=== PATIENT | female | born 1955 | race Caucasian/White ===

== ENCOUNTER → 2016-05-28 | Outpatient (CLI) | payer OTHER ==
[2016-05-28 11:05] VITALS: BP 129/79; PULSE 62; RESP 18; TEMP 98; BMI 29.0
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
== END | disposition home or self-care (01) ==
LOC: BARWHC3 10:22
PROVIDERS: ATTEND Surgery Plastic and Reconstructive Surgery
DX: K21.9 Gastro-esophageal reflux disease without esophagitis (principal); Z98.890 Other specified postprocedural states; Z79.899 Other long term (current) drug therapy; Z88.8 Allergy status to other drugs, medicaments and biological substances; Z88.2 Allergy status to sulfonamides; Z88.1 Allergy status to other antibiotic agents; Z87.891 Personal history of nicotine dependence; Z68.29 Body mass index [BMI] 29.0-29.9, adult; K44.9 Diaphragmatic hernia without obstruction or gangrene; Z87.820 Personal history of traumatic brain injury; R41.3 Other amnesia; G89.4 Chronic pain syndrome; M41.9 Scoliosis, unspecified; Z79.01 Long term (current) use of anticoagulants; Z86.718 Personal history of other venous thrombosis and embolism; F41.9 Anxiety disorder, unspecified; J44.9 Chronic obstructive pulmonary disease, unspecified; E03.9 Hypothyroidism, unspecified; E78.5 Hyperlipidemia, unspecified; I10 Essential (primary) hypertension; F32.9 Major depressive disorder, single episode, unspecified; I25.10 Atherosclerotic heart disease of native coronary artery without angina pectoris; Z95.5 Presence of coronary angioplasty implant and graft
CPT/HCPCS: 99211

== ENCOUNTER → 2016-06-18 | Outpatient (CLI) | payer OTHER ==
[2016-06-18 10:22] VITALS: BP 138/89; PULSE 69; RESP 16; TEMP 97.8; BMI 29.4
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
== END | disposition home or self-care (01) ==
LOC: BARWHC3 09:27
PROVIDERS: ATTEND Surgery Plastic and Reconstructive Surgery
DX: Z48.815 Encounter for surgical aftercare following surgery on the digestive system (principal); E66.01 Morbid (severe) obesity due to excess calories; Z71.3 Dietary counseling and surveillance; Z68.29 Body mass index [BMI] 29.0-29.9, adult; Z98.84 Bariatric surgery status
CPT/HCPCS: 99211

== ENCOUNTER → 2016-07-31 | Outpatient (CLI) | payer OTHER ==
[2016-07-31 11:05] VITALS: BMI 29.4
== END ==
LOC: MNTWWP 09:05
PROVIDERS: ATTEND Surgery Plastic and Reconstructive Surgery
DX: E66.01 Morbid (severe) obesity due to excess calories (principal)
CPT/HCPCS: 97802

== ENCOUNTER 2016-08-23 19:49 | Emergency (ER) | payer OTHER ==
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
[2016-08-23 21:22] VITALS: BP 133/62; PULSE 67; RESP 18; TEMP 99.2
--- NOTE | 2016-08-23 21:26 | US ---
EXAMINATION TYPE: US venous doppler duplex LE RT DATE OF EXAM: 08/23/2016 8:56 PM COMPARISON: NONE CLINICAL HISTORY: 61-year-old female with pain SIDE PERFORMED: Right TECHNIQUE: The lower extremity deep venous system is examined utilizing real time linear array sonog chelsy with graded compression, doppler sonography and color-flow sonography. FINDINGS: VESSELS IMAGED: External Iliac Vein (EIV) Common Femoral Vein Deep Femoral Vein Greater Saphenous Vein * Femoral Vein Popliteal Vein Small Saphenous Vein * Proximal Calf Veins (* superficial vessels) Right Leg: Negative for DVT IMPRESSION: No evidence for DVT within the right lower extremity imaged from the groin to the upper calf.
== END 2016-08-23 21:21 | disposition home or self-care (01) ==
LOC: EC 19:49
DX: R60.0 Localized edema (principal); M79.604 Pain in right leg; J44.9 Chronic obstructive pulmonary disease, unspecified; J45.909 Unspecified asthma, uncomplicated; I25.10 Atherosclerotic heart disease of native coronary artery without angina pectoris; K21.9 Gastro-esophageal reflux disease without esophagitis; E78.5 Hyperlipidemia, unspecified; I10 Essential (primary) hypertension; F31.9 Bipolar disorder, unspecified; F41.9 Anxiety disorder, unspecified; Z87.891 Personal history of nicotine dependence; Z79.82 Long term (current) use of aspirin; Z79.51 Long term (current) use of inhaled steroids; Z88.1 Allergy status to other antibiotic agents; Z88.2 Allergy status to sulfonamides; Z88.8 Allergy status to other drugs, medicaments and biological substances; Z86.718 Personal history of other venous thrombosis and embolism; Z95.5 Presence of coronary angioplasty implant and graft
CPT/HCPCS: 99283

== ENCOUNTER → 2016-10-22 | Outpatient (CLI) | payer OTHER ==
[2016-10-22 11:31] VITALS: BP 146/96; PULSE 73; RESP 20; TEMP 98; BMI 30.2
--- NOTE | 2016-10-22 12:29 | FL ---
ESOPHOGRAM. HISTORY: Dysphagia, previous hiatal hernia repair COMPARISON: 06/09/2013 Esophagram was performed per the air contrast technique. The patient swallowed barium and effervesce nt crystals without difficulty or delay. Esophageal peristalsis and motility demonstrates tertiary contractions compatible with presbyesophag us. There is no evidence for filling defect, mass or diverticulum. There is evidence of recurrent sliding-type hiatal hernia. IMPRESSION: 1. Recurrent sliding-type hiatal hernia. 2. Presbyesophagus
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
== END | disposition home or self-care (01) ==
LOC: BARWHC3 10:28
PROVIDERS: ATTEND Surgery Plastic and Reconstructive Surgery
DX: K21.9 Gastro-esophageal reflux disease without esophagitis (principal); D50.9 Iron deficiency anemia, unspecified; I25.10 Atherosclerotic heart disease of native coronary artery without angina pectoris; K22.4 Dyskinesia of esophagus; F41.9 Anxiety disorder, unspecified; J44.9 Chronic obstructive pulmonary disease, unspecified; E03.9 Hypothyroidism, unspecified; G89.4 Chronic pain syndrome; E78.5 Hyperlipidemia, unspecified; I10 Essential (primary) hypertension; F32.9 Major depressive disorder, single episode, unspecified; K22.8 Other specified diseases of esophagus; K44.9 Diaphragmatic hernia without obstruction or gangrene; Z86.718 Personal history of other venous thrombosis and embolism; Z71.3 Dietary counseling and surveillance; Z79.01 Long term (current) use of anticoagulants
CPT/HCPCS: 74220; 99211

== ENCOUNTER 2016-11-12 16:10 | Emergency (ER) | payer OTHER ==
[2016-11-12 16:17] VITALS: BP 120/75; PULSE 82; RESP 17; TEMP 98.7
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
== END 2016-11-12 16:40 | disposition home or self-care (01) ==
LOC: EC 16:10
DX: S00.502A Unspecified superficial injury of oral cavity, initial encounter (principal); K06.8 Other specified disorders of gingiva and edentulous alveolar ridge; I25.10 Atherosclerotic heart disease of native coronary artery without angina pectoris; K21.9 Gastro-esophageal reflux disease without esophagitis; E78.5 Hyperlipidemia, unspecified; I10 Essential (primary) hypertension; F31.9 Bipolar disorder, unspecified; J44.9 Chronic obstructive pulmonary disease, unspecified; F41.9 Anxiety disorder, unspecified; I73.9 Peripheral vascular disease, unspecified; Z87.891 Personal history of nicotine dependence; Z88.1 Allergy status to other antibiotic agents; Z88.2 Allergy status to sulfonamides; Z79.51 Long term (current) use of inhaled steroids; Z79.82 Long term (current) use of aspirin; Z79.899 Other long term (current) drug therapy; X58.XXXA Exposure to other specified factors, initial encounter
CPT/HCPCS: 99282

== ENCOUNTER 2016-11-18 08:54 | Day surgery (SDC) | payer OTHER ==
[2016-11-17 08:57] VITALS: BMI 30.1
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
[~2016-11-18 08:54] MED LIST: LACTATED RINGERS 1,000 ML IV SCH; LIDOCAINE 1% 20 ML VIAL (10MG/ML) FOR IV START INTRADERMA PRN
[2016-11-18 09:34] VITALS: RESP 18; TEMP 97.3
[2016-11-18] MEDS ORDERED: PROPOFOL 10 MG/ML 20 ML VIAL IV ONE (10:08)
[2016-11-18 10:54] VITALS: BP 117/75; PULSE 63
--- NOTE | 2016-11-18 11:01 | P.PCN ---
Date of Procedure: 11/18/16 Preoperative Diagnosis: Postoperative Diagnosis: Procedure(s) Performed: Implants: Indications for Procedure: Operative Findings: Description of Procedure: PREOPERATIVE DIAGNOSIS: Gastroesophageal reflux disease. Status post Rafael fundoplication. POSTOPERATIVE DIAGNOSIS: Gastroesophageal reflux disease. Status post Rafael fundoplication. Diaphragmatic hiatal hernia without obstruction. OPERATION: Esophagogastroduodenoscopy. SURGEON: Milady Pate MD ANESTHESIA: MAC. INDICATIONS: The patient is a 61-year-old female who presents with a history of reflux disease. Benefits and risks of the procedure were described. Informed consent was obtained. DESCRIPTION: The patient was brought into the endoscopy suite and laid in the left lateral decubitus position. An Olympus gastroscope was passed along the posterior oropharynx down to the distal esophagus where the squamocolumnar junction was encountered at 35 cm from the incisors. The stomach was entered and no bile reflux was found. Additional findings are listed below. The first through third portion of the duodenum was examined and unremarkable. Retroflexion of the scope confirmed Hill grade 4 lower esophageal valve. The squamocolumnar junction demostrated early and acute LA grade A erosive esophagitis. The stomach was desufflated. The patient tolerated the procedure well. FINDINGS: Squamocolumnar junction 36 cm from the incisors. Diaphragmatic hiatus at 49 cm. Hiatal hernia 3 cm. Hill grade 4 lower esophageal valve. LA grade A erosive esophagitis. No active duodenitis. RECOMMENDATIONS: Continue medical therapy. Upper endoscopy as needed. Will benefit from antireflux surgical procedure Plan - Discharge Summary New Discharge Prescriptions: No Action Simvastatin [Zocor] 40 mg PO QAM Tiotropium 18 Mcg/Puff [Spiriva] 1 cap INHALATION DAILY Montelukast [Singulair] 10 mg PO HS Sertraline [Zoloft] 150 mg PO QAM Aspirin 81 mg PO DAILY traZODone HCL [Desyrel] 300 mg PO HS Omeprazole [PriLOSEC] 40 mg PO AC-BID Budesonide/Formoterol Fumarate [Symbicort 80-4.5 Mcg Inhaler] 2 puff INHALATION BID Isosorbide Mononitrate [Imdur] 60 mg PO QAM Nitroglycerin Sl Tabs [Nitrostat] 0.4 mg SUBLINGUAL Q5M PRN PRN Reason: Chest Pain Cyclobenzaprine [Flexeril] 10 mg PO TID PRN PRN Reason: Muscle Spasm hydrOXYzine HCL [Atarax] 25 mg PO TID PRN PRN Reason: Itching Cyanocobalamin (Vitamin B-12) [Vitamin B-12] 3,000 mcg PO DAILY Cholecalciferol [Vitamin D3] 2,000 unit PO DAILY fentaNYL 100MCG/HR PATCH [Duragesic 100MCG/HR] 1 patch TOPICAL Q72H Temazepam 30 mg PO HS PRN PRN Reason: Insomnia Enalapril Maleate 10 mg PO QAM Metoprolol Tartrate 25 mg PO BID Loratadine [Claritin] 10 mg PO DAILY Amitriptyline HCl [Elavil] 5 mg PO HS Hydrochlorothiazide 25 mg PO DAILY Discharge Medication List Aspirin 81 mg PO DAILY 12/28/13 [History] Montelukast [Singulair] 10 mg PO HS 12/28/13 [History] Sertraline [Zoloft] 150 mg PO QAM 12/28/13 [History] Simvastatin [Zocor] 40 mg PO QAM 12/28/13 [History] Tiotropium 18 Mcg/Puff [Spiriva] 1 cap INHALATION DAILY 12/28/13 [History] traZODone HCL [Desyrel] 300 mg PO HS 12/28/13 [History] Budesonide/Formoterol Fumarate [Symbicort 80-4.5 Mcg Inhaler] 2 puff INHALATION BID 12/29/13 [History] Isosorbide Mononitrate [Imdur] 60 mg PO QAM 12/29/13 [History] Nitroglycerin Sl Tabs [Nitrostat] 0.4 mg SUBLINGUAL Q5M PRN 12/29/13 [History] Omeprazole [PriLOSEC] 40 mg PO AC-BID 12/29/13 [History] Cyclobenzaprine [Flexeril] 10 mg PO TID PRN 12/14/14 [History] hydrOXYzine HCL [Atarax] 25 mg PO TID PRN 12/14/14 [History] Cholecalciferol [Vitamin D3] 2,000 unit PO DAILY 08/15/15 [History] Cyanocobalamin (Vitamin B-12) [Vitamin B-12] 3,000 mcg PO DAILY 08/15/15 [ History] Enalapril Maleate 10 mg PO QAM 08/15/15 [History] Metoprolol Tartrate 25 mg PO BID 08/15/15 [History] Temazepam 30 mg PO HS PRN 08/15/15 [History] fentaNYL 100MCG/HR PATCH [Duragesic 100MCG/HR] 1 patch TOPICAL Q72H 08/15/15 [ History] Amitriptyline HCl [Elavil] 5 mg PO HS 10/22/16 [History] Hydrochlorothiazide 25 mg PO DAILY 10/22/16 [History] Loratadine [Claritin] 10 mg PO DAILY 10/22/16 [History] Follow up Appointment(s)/Referral(s): Milady Pate MD [STAFF PHYSICIAN] - 12/15/16 Patient Instructions/Handouts: *Surgery [facility] - (Anesthesia) Endoscopy Discharge Instructions, Upper Endoscopy (DC) Activity/Diet/Wound Care/Special Instructions: rest today no driving today. Discharge Disposition: HOME SELF-CARE
== END 2016-11-18 11:20 | disposition home or self-care (01) ==
LOC: ORWHC2ENDO 08:54
PROVIDERS: ATTEND Surgery Plastic and Reconstructive Surgery
DX: K21.0 Gastro-esophageal reflux disease with esophagitis (principal); K44.9 Diaphragmatic hernia without obstruction or gangrene; J44.9 Chronic obstructive pulmonary disease, unspecified; I25.10 Atherosclerotic heart disease of native coronary artery without angina pectoris; E78.5 Hyperlipidemia, unspecified; E07.9 Disorder of thyroid, unspecified; Z86.718 Personal history of other venous thrombosis and embolism; Z95.5 Presence of coronary angioplasty implant and graft; Z79.82 Long term (current) use of aspirin; Z79.51 Long term (current) use of inhaled steroids; Z79.899 Other long term (current) drug therapy; Z88.1 Allergy status to other antibiotic agents; Z88.2 Allergy status to sulfonamides; Z87.891 Personal history of nicotine dependence
CPT/HCPCS: 43235; J2704

== ENCOUNTER 2016-12-17 11:14 | Day surgery (SDC) | payer OTHER ==
[2016-12-15 16:07] VITALS: BMI 28.3
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
[2016-12-17 12:27] VITALS: RESP 18; TEMP 96.2
[2016-12-17] MEDS ORDERED: PROPOFOL 10 MG/ML 20 ML VIAL IV ONE (12:27)
[2016-12-17] MEDS ORDERED: LIDOCAINE 1% INJ 10MG/ML (20 ML MDV) ONE (12:27)
--- NOTE | 2016-12-17 12:53 | P.PCN ---
Date of Procedure: 12/17/16 Description of Procedure: PREOPERATIVE DIAGNOSIS: Colonoscopy screening. POSTOPERATIVE DIAGNOSIS: Colonoscopy screening. Diverticulosis, scattered. History of polyps. External hemorrhoids. OPERATION: Colonoscopy to the ileocecal valve and appendiceal orifice. SURGEON: Milady Pate MD. ANESTHESIA: MAC. INDICATIONS: The patient is a 61-year-old female who presents for colonoscopy screening. Benefits and risks were described and informed consent was obtained. DESCRIPTION OF PROCEDURE: The patient had undergone Gatorade, MiraLAX and Dulcolax prep. She had been brought into the operating room and laid in the left lateral decubitus position. After adequate intravenous sedation, the rectum was examined with 2% lidocaine jelly. External hemorrhoids were encountered. The rectal tone was within normal limits. No lesions were palpated in the rectal vault. An Olympus colonoscope was advanced until the ileocecal valve and appendiceal orifice were clearly viewed. The prep was excellent with clear visualization of the mucosal folds. The scope was removed with visualization of each mucosal fold. Scattered diverticulosis was encountered. Small hyperplastic 2 mm polyps intractable were identified of the sigmoid colon without evidence of adenomas. No evidence of focal colitis was found. Retroflexion of the scope demonstrated grade 2 internal hemorrhoids without active bleeding or inflammation. The colon was desufflated. The patient had tolerated the procedure well. Withdrawal time was over 6 minutes. FINDINGS: Internal hemorrhoids, grade 1 External prolapsed hemorrhoids, grade 3 No arteriovenous malformations. No adenomatous polyps. No focal colitis. RECOMMENDATIONS: Lower endoscopy in 10 years, 2026; otherwise in 5 years for family history of colon cancer or polyps. Plan - Discharge Summary New Discharge Prescriptions: No Action Simvastatin [Zocor] 40 mg PO QAM Tiotropium 18 Mcg/Puff [Spiriva] 1 cap INHALATION DAILY Montelukast [Singulair] 10 mg PO HS Sertraline [Zoloft] 150 mg PO QAM Aspirin 81 mg PO DAILY traZODone HCL [Desyrel] 300 mg PO HS Omeprazole [PriLOSEC] 40 mg PO AC-BID Budesonide/Formoterol Fumarate [Symbicort 80-4.5 Mcg Inhaler] 2 puff INHALATION BID Isosorbide Mononitrate [Imdur] 60 mg PO QAM Nitroglycerin Sl Tabs [Nitrostat] 0.4 mg SUBLINGUAL Q5M PRN PRN Reason: Chest Pain Cyclobenzaprine [Flexeril] 10 mg PO TID PRN PRN Reason: Muscle Spasm hydrOXYzine HCL [Atarax] 25 mg PO TID PRN PRN Reason: Itching Cyanocobalamin (Vitamin B-12) [Vitamin B-12] 3,000 mcg PO DAILY Cholecalciferol [Vitamin D3] 2,000 unit PO DAILY fentaNYL 100MCG/HR PATCH [Duragesic 100MCG/HR] 1 patch TOPICAL Q72H Temazepam 30 mg PO HS PRN PRN Reason: Insomnia Enalapril Maleate 10 mg PO QAM Metoprolol Tartrate 25 mg PO BID Loratadine [Claritin] 10 mg PO DAILY Amitriptyline HCl [Elavil] 5 mg PO HS Hydrochlorothiazide 25 mg PO DAILY Prasugrel [Effient] 10 mg PO DAILY tiZANidine [Zanaflex] 4 mg PO HS Discharge Medication List Aspirin 81 mg PO DAILY 12/28/13 [History] Montelukast [Singulair] 10 mg PO HS 12/28/13 [History] Sertraline [Zoloft] 150 mg PO QAM 12/28/13 [History] Simvastatin [Zocor] 40 mg PO QAM 12/28/13 [History] Tiotropium 18 Mcg/Puff [Spiriva] 1 cap INHALATION DAILY 12/28/13 [History] traZODone HCL [Desyrel] 300 mg PO HS 12/28/13 [History] Budesonide/Formoterol Fumarate [Symbicort 80-4.5 Mcg Inhaler] 2 puff INHALATION BID 12/29/13 [History] Isosorbide Mononitrate [Imdur] 60 mg PO QAM 12/29/13 [History] Nitroglycerin Sl Tabs [Nitrostat] 0.4 mg SUBLINGUAL Q5M PRN 12/29/13 [History] Omeprazole [PriLOSEC] 40 mg PO AC-BID 12/29/13 [History] Cyclobenzaprine [Flexeril] 10 mg PO TID PRN 12/14/14 [History] hydrOXYzine HCL [Atarax] 25 mg PO TID PRN 12/14/14 [History] Cholecalciferol [Vitamin D3] 2,000 unit PO DAILY 08/15/15 [History] Cyanocobalamin (Vitamin B-12) [Vitamin B-12] 3,000 mcg PO DAILY 08/15/15 [ History] Enalapril Maleate 10 mg PO QAM 08/15/15 [History] Metoprolol Tartrate 25 mg PO BID 08/15/15 [History] Temazepam 30 mg PO HS PRN 08/15/15 [History] fentaNYL 100MCG/HR PATCH [Duragesic 100MCG/HR] 1 patch TOPICAL Q72H 08/15/15 [ History] Amitriptyline HCl [Elavil] 5 mg PO HS 10/22/16 [History] Hydrochlorothiazide 25 mg PO DAILY 10/22/16 [History] Loratadine [Claritin] 10 mg PO DAILY 10/22/16 [History] Prasugrel [Effient] 10 mg PO DAILY 12/15/16 [History] tiZANidine [Zanaflex] 4 mg PO HS 12/15/16 [History]
[2016-12-17 13:44] VITALS: BP 94/57; PULSE 66
== END 2016-12-17 14:01 | disposition home or self-care (01) ==
LOC: ORWHC2ENDO 11:14
PROVIDERS: ATTEND Surgery Plastic and Reconstructive Surgery
DX: Z12.11 Encounter for screening for malignant neoplasm of colon (principal); K63.5 Polyp of colon; K64.0 First degree hemorrhoids; K64.2 Third degree hemorrhoids; K57.30 Diverticulosis of large intestine without perforation or abscess without bleeding; Z86.010 Personal history of colon polyps; J44.9 Chronic obstructive pulmonary disease, unspecified; Z86.718 Personal history of other venous thrombosis and embolism; K21.9 Gastro-esophageal reflux disease without esophagitis; I10 Essential (primary) hypertension; R41.3 Other amnesia; E07.9 Disorder of thyroid, unspecified; I25.10 Atherosclerotic heart disease of native coronary artery without angina pectoris; Z95.5 Presence of coronary angioplasty implant and graft; Z79.899 Other long term (current) drug therapy; Z79.51 Long term (current) use of inhaled steroids; Z79.82 Long term (current) use of aspirin; Z87.891 Personal history of nicotine dependence; Z88.1 Allergy status to other antibiotic agents; Z88.2 Allergy status to sulfonamides
CPT/HCPCS: J2001; J2704; G0105

== ENCOUNTER 2016-12-26 03:07 | Observation (INO) | payer OTHER ==
[2016-12-26] MEDS ORDERED: ALBUTEROL NEBULIZED 2.5 MG/3 ML INHALATION STA (03:11)
[2016-12-26] MEDS ORDERED: SODIUM CHLORIDE 0.9% 500 ML IV STA (03:11)
[2016-12-26] MEDS ORDERED: methylPREDNISolone SOD SUCCI 125 MG/2 ML VIAL IV STA (03:11)
[2016-12-26] MEDS ORDERED: IPRATROPIUM-ALBUTEROL 3 ML NEB INHALATION STA (03:11)
[2016-12-26] MEDS ORDERED: SODIUM CHLORIDE 0.9% 1,000 ML IV ONE (03:15)
[2016-12-26] MEDS ORDERED: MORPHINE SULFATE 4 MG/ML SYRINGE IV STA (03:21)
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
[2016-12-26 04:10] LABS: Anisocytosis Slight; Basophils % (A) 0 %; CH 28.9; CHCM 33.1; Eosinophils # (A) 0.3 k/uL (0-0.7); Eosinophils % (A) 4 %; HCT 30.3 % (34.0-46.0); HDW 2.68; HGB 9.8 gm/dL (11.4-16.0); Luc # (Auto) 0.11; Luc % (Auto) 2; Lymphocytes # (A) 1.5 k/uL (1.0-4.8); Lymphocytes % (A) 21 %; MCH 28.4 pg (25.0-35.0); MCHC 32.4 g/dL (31.0-37.0); MCV 87.8 fL (80.0-100.0); Mean Platelet Volume 7.2; Monocytes # (A) 0.3 k/uL (0-1.0); Monocytes % (A) 4 %; Neutrophils % (A) 69 %; RBC 3.45 m/uL (3.80-5.40); RDW 18.1 % (11.5-15.5); WBC 7.3 k/uL (3.8-10.6); WBC (Perox) 7.38
[2016-12-26 04:20] LABS: Prothrombin Time 10.3 sec (9.0-12.0)
[2016-12-26 04:25] LABS: ALT 43 U/L (9-52); AST 44 U/L (14-36); Alkaline Phosphatase 158 U/L (38-126); Anion Gap 9 mmol/L; Blood Urea Nitrogen 42 mg/dL (7-17); Calcium 7.3 mg/dL (8.4-10.2); Carbon Dioxide 21 mmol/L (22-30); Chloride 107 mmol/L (98-107); Glucose 120 mg/dL (74-99); Non-African American GFR(MDRD) 50 (>60 ml/min/1.73 sqM); Potassium 3.3 mmol/L (3.5-5.1); Sodium 137 mmol/L (137-145); Total Bilirubin 0.3 mg/dL (0.2-1.3); Total Protein 5.3 g/dL (6.3-8.2)
[2016-12-26 04:35] LABS: Partial Thromboplastin Time 19.6 sec (22.0-30.0)
[2016-12-26 04:36] LABS: Creatine Kinase <20 U/L (30-135)
--- NOTE | 2016-12-26 04:43 | XR ---
EXAM: XR Right Tibia and Fibula, 2 Views CLINICAL HISTORY: Reason: Pain TECHNIQUE: Frontal and lateral views of the right tibia and fibula. COMPARISON: No relevant prior studies available. FINDINGS: Bones/joints: Displaced and angulated distal fibular fracture. Medial displacement of the proximal segment. Medial dislocation of the tibia with respect to the talus. Medial malleolus fracture. Soft tissues: Unremarkable. No radiopaque foreign body. IMPRESSION: Displaced and angulated distal fibular fracture. Medial displacement of the proximal segment. Disrupted ankle mortise with Medial dislocation of the tibia with respect to the talus. Medial malleolus fracture.
[2016-12-26 04:47] LABS: Creatine Kinase MB <0.2 ng/mL (0.0-2.4); Troponin I <0.012 ng/mL (0.000-0.034)
--- NOTE | 2016-12-26 04:47 | XR ---
EXAM: XR Chest, 1 View CLINICAL HISTORY: pt. fell and is SOB. Hx. of heart cath with stents TECHNIQUE: Frontal view of the chest. COMPARISON: Chest x-ray 07/11/15 FINDINGS: Lungs: Unremarkable. No consolidation. Pleural space: Unremarkable. No pneumothorax. Heart: Stable cardiomegaly. Mediastinum: Unremarkable. Bones/joints: Unremarkable. IMPRESSION: No acute findings.
[2016-12-26] MEDS ORDERED: HYDROmorphone 1 MG/ML 1 ML SYRINGE IVP STA ×2 (04:51→06:16)
--- NOTE | 2016-12-26 05:54 | CT ---
EXAM: CT Head Without Intravenous Contrast CLINICAL HISTORY: . fell and is on blood thinners. Hx. of previous CVA/TIA.: fall TECHNIQUE: Axial computed tomography images of the head/brain without intravenous contrast. CTDI is 60.3 mGy and DLP is 1090.4 mGy-cm. This CT exam was performed using one or more of the following dose reduction techniques: automated exposure control, adjustment of the mA and/or kV according to patient size, and/or use of iterative reconstruction technique. COMPARISON: Head CT 12/14/14 FINDINGS: Brain: Old left thalamic lacunar infarct. Similar mild to moderate cerebral atrophy. No hemorrhage. No edema. Ventricles: Mild general atrophy. No ventriculomegaly. Bones/joints: Unremarkable. No acute fracture. Soft tissues: Unremarkable. Sinuses: Mild ethmoid sinus mucosal thickening and trace fluid. Mastoid air cells: Trace right mastoid air cell fluid. IMPRESSION: 1. No acute intracranial abnormality. 2. Stable senescent changes and old left thalamic lacunar infarct. 3. Mild ethmoid sinus mucosal thickening and trace right ethmoid sinus fluid. 4. Trace right mastoid air cell fluid.
[2016-12-26] MEDS ORDERED: HYDROmorphone 1 MG/ML 1 ML SYRINGE IV PRN (07:10)
[2016-12-26] MEDS ORDERED: ACETAMINOPHEN TAB 325 MG TAB PO PRN (07:10)
[2016-12-26] MEDS ORDERED: NALOXONE 0.4 MG/ML 1 ML VIAL IV PRN (07:10)
[2016-12-26] MEDS ORDERED: SODIUM CHLORIDE 0.9% 1,000 ML IV SCH (07:15)
[2016-12-26] MEDS ORDERED: TEMAZEPAM 30 MG CAP PO PRN (07:17)
[2016-12-26] MEDS ORDERED: hydrOXYzine HCL 25 MG TAB PO PRN (07:17)
[2016-12-26] MEDS ORDERED: NITROGLYCERIN SL TABS 0.4 MG TAB SUBLINGUAL PRN (07:17)
[2016-12-26] MEDS ORDERED: PANTOPRAZOLE 40 MG TABLET PO SCH (07:30)
[2016-12-26] MEDS ORDERED: CYANOCOBALAMIN 500 MCG TAB PO SCH (09:00)
[2016-12-26] MEDS ORDERED: LISINOPRIL 20 MG TAB PO SCH (09:00)
[2016-12-26] MEDS ORDERED: ASPIRIN 81 MG PO SCH (09:00)
[2016-12-26] MEDS ORDERED: ISOSORBIDE MONONITRATE ER 60 MG TAB.ER.24H PO SCH (09:00)
[2016-12-26] MEDS ORDERED: FAMOTIDINE 20 MG TAB PO SCH (09:00)
[2016-12-26] MEDS ORDERED: HYDROCHLOROTHIAZIDE 25 MG TAB PO SCH (09:00)
[2016-12-26] MEDS ORDERED: SERTRALINE 50 MG TAB PO SCH (09:00)
[2016-12-26] MEDS ORDERED: METOPROLOL TARTRATE 25 MG TAB PO SCH (09:00)
[2016-12-26] MEDS ORDERED: SYMBICORT 80-4.5 MCG INHALER INHALATION SCH (09:00)
[2016-12-26] MEDS ORDERED: PRASUGREL 10 MG TAB PO SCH (09:00)
[2016-12-26] MEDS ORDERED: CHOLECALCIFEROL 1,000 UNIT TAB PO SCH (09:00)
[2016-12-26] MEDS ORDERED: ATORVASTATIN 20 MG TAB PO SCH (09:00)
[2016-12-26] MEDS ORDERED: LORATADINE 10 MG TAB PO SCH (09:00)
[2016-12-26] MEDS: IPRATROPIUM 0.5 MG/2.5 ML NEBU INHALATION SCH ×2 (09:36→13:01)
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
[2016-12-26] MEDS ORDERED: HYDROmorphone 1 MG/ML 1 ML SYRINGE IVP PRN (16:04)
[2016-12-26 16:16] VITALS: BP 156/83; PULSE 73; RESP 18; TEMP 99.3
[2016-12-26] MEDS ORDERED: AMITRIPTYLINE HCL 10 MG TAB PO SCH (21:00)
[2016-12-26] MEDS ORDERED: tiZANidine 4 MG TAB PO SCH (21:00)
[2016-12-26] MEDS ORDERED: MONTELUKAST 10 MG TAB PO SCH (21:00)
[2016-12-26] MEDS ORDERED: traZODone HCL 100 MG TAB PO SCH (21:00)
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
== END 2016-12-26 16:48 | disposition home or self-care (01) ==
LOC: EC 03:07 → 3OBS 07:10
PROVIDERS: ADMIT Hospitalist; ATTEND Hospitalist
DX: S82.841A Displaced bimalleolar fracture of right lower leg, initial encounter for closed fracture (principal); E44.0 Moderate protein-calorie malnutrition; Z68.28 Body mass index [BMI] 28.0-28.9, adult; E83.51 Hypocalcemia; E87.6 Hypokalemia; I25.10 Atherosclerotic heart disease of native coronary artery without angina pectoris; Z95.5 Presence of coronary angioplasty implant and graft; G89.29 Other chronic pain; K21.9 Gastro-esophageal reflux disease without esophagitis; E03.9 Hypothyroidism, unspecified; J44.9 Chronic obstructive pulmonary disease, unspecified; I10 Essential (primary) hypertension; F41.9 Anxiety disorder, unspecified; F31.9 Bipolar disorder, unspecified; R41.3 Other amnesia; Z79.82 Long term (current) use of aspirin; Z79.899 Other long term (current) drug therapy; Z79.51 Long term (current) use of inhaled steroids; Z79.890 Hormone replacement therapy; Z88.2 Allergy status to sulfonamides; Z88.1 Allergy status to other antibiotic agents; Z86.718 Personal history of other venous thrombosis and embolism; Z87.01 Personal history of pneumonia (recurrent); Z87.891 Personal history of nicotine dependence; W01.0XXA Fall on same level from slipping, tripping and stumbling without subsequent striking against object, initial encounter; Y92.002 Bathroom of unspecified non-institutional (private) residence as the place of occurrence of the external cause; X50.1XXA Overexertion from prolonged static or awkward postures, initial encounter
CPT/HCPCS: 29515; 27810; 96376 ×3; 96361 ×2; 96374; 96375; 99285; 36415; 94640; 93005; 83880; 80053; 82550; 82553; 84484; 85025; 85610; 85730; 71010; 73590; 70450; G0378; J2270; J1170

== ENCOUNTER 2016-12-28 13:13 | Observation (INO) | payer OTHER ==
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
[2016-12-28] MEDS ORDERED: HYDROmorphone 1 MG/ML 1 ML SYRINGE IVP STA (14:05)
--- NOTE | 2016-12-28 14:30 | XR ---
EXAMINATION TYPE: XR ankle complete RT DATE OF EXAM: 12/28/2016 COMPARISON: 12/26/2016 HISTORY: Pain TECHNIQUE: Frontal, lateral and oblique images of the right ankle are obtained. Overlying cast mater ial does obscure fine bony detail. FINDINGS: Previously described fractures are again noted with mild improved alignment following redu ction. There is continued instability about the ankle mortise and fracture displacement.
[2016-12-28] MEDS ORDERED: NALOXONE 0.4 MG/ML 1 ML VIAL IV PRN (14:50)
[2016-12-28] MEDS ORDERED: ACETAMINOPHEN TAB 325 MG TAB PO PRN (14:50)
[2016-12-28] MEDS ORDERED: ONDANSETRON 4 MG/2 ML VIAL IVP PRN (14:50)
[2016-12-28] MEDS ORDERED: IBUPROFEN 400 MG TAB PO PRN (14:50)
[2016-12-28] MEDS ORDERED: CYCLOBENZAPRINE 10 MG TAB PO PRN (14:53)
[2016-12-28] MEDS ORDERED: hydrOXYzine HCL 25 MG TAB PO PRN (14:53)
[2016-12-28] MEDS ORDERED: TEMAZEPAM 30 MG CAP PO PRN (14:53)
[2016-12-28] MEDS ORDERED: LORazepam 2 MG/ML INJ IV PRN (18:36)
[2016-12-28] MEDS: HYDROmorphone 1 MG/ML 1 ML SYRINGE IV PRN ×2 (19:21→23:23)
[2016-12-28] MEDS: METOPROLOL TARTRATE 25 MG TAB PO SCH (20:23)
[2016-12-28] MEDS: AMITRIPTYLINE HCL 50 MG TAB PO SCH (20:26)
[2016-12-28] MEDS: SODIUM CHLORIDE 0.9% 1,000 ML IV SCH (20:26)
[2016-12-28] MEDS: MONTELUKAST 10 MG TAB PO SCH (20:26)
[2016-12-28] MEDS: IPRATROPIUM 0.5 MG/2.5 ML NEBU INHALATION SCH (21:20)
[2016-12-28] MEDS: SYMBICORT 80-4.5 MCG INHALER INHALATION SCH (21:26)
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
[2016-12-29] MEDS: SODIUM CHLORIDE 0.9% 1,000 ML IV SCH ×3 (03:08→17:36)
[2016-12-29] MEDS: LEVOTHYROXINE 50 MCG TAB PO SCH (03:08)
[2016-12-29] MEDS: HYDROmorphone 1 MG/ML 1 ML SYRINGE IV PRN ×3 (03:22→11:45)
[2016-12-29] MEDS: SYMBICORT 80-4.5 MCG INHALER INHALATION SCH ×2 (07:21→19:30)
[2016-12-29] MEDS: IPRATROPIUM 0.5 MG/2.5 ML NEBU INHALATION SCH ×3 (07:22→19:31)
[2016-12-29] MEDS: PANTOPRAZOLE 40 MG/10 ML VIAL IV SCH (07:47)
[2016-12-29] MEDS: SERTRALINE 50 MG TAB PO SCH (07:51)
[2016-12-29] MEDS: METOPROLOL TARTRATE 25 MG TAB PO SCH ×2 (07:52→21:23)
[2016-12-29] MEDS: ATORVASTATIN 20 MG TAB PO SCH (08:22)
[2016-12-29] MEDS: ISOSORBIDE MONONITRATE ER 60 MG TAB.ER.24H PO SCH (08:22)
[2016-12-29] MEDS: LORATADINE 10 MG TAB PO SCH (08:23)
[2016-12-29] MEDS: HYDROCHLOROTHIAZIDE 25 MG TAB PO SCH (08:23)
[2016-12-29] MEDS: LISINOPRIL 20 MG TAB PO SCH (08:23)
[2016-12-29] MEDS ORDERED: ASPIRIN 81 MG PO SCH (09:00)
[2016-12-29 09:42] LABS: Anisocytosis Slight; Basophils % (A) 0 %; CH 28.8; CHCM 32.4; Eosinophils # (A) 0.3 k/uL (0-0.7); Eosinophils % (A) 3 %; HCT 29.5 % (34.0-46.0); HDW 2.62; HGB 9.4 gm/dL (11.4-16.0); Luc % (Auto) 1; Lymphocytes # (A) 1.3 k/uL (1.0-4.8); Lymphocytes % (A) 18 %; MCH 28.3 pg (25.0-35.0); MCHC 31.7 g/dL (31.0-37.0); MCV 89.2 fL (80.0-100.0); Mean Platelet Volume 7.5; Monocytes # (A) 0.5 k/uL (0-1.0); Monocytes % (A) 6 %; Neutrophils # (A) 5.4 k/uL (1.3-7.7); Neutrophils % (A) 71 %; RBC 3.31 m/uL (3.80-5.40); RDW 17.6 % (11.5-15.5); WBC 7.6 k/uL (3.8-10.6); WBC (Perox) 7.76
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
[2016-12-29 09:48] LABS: INR 1.2 (<1.2); Prothrombin Time 11.6 sec (9.0-12.0)
[2016-12-29 10:15] LABS: Anion Gap 9 mmol/L; Blood Urea Nitrogen 13 mg/dL (7-17); Calcium 7.7 mg/dL (8.4-10.2); Carbon Dioxide 23 mmol/L (22-30); Chloride 106 mmol/L (98-107); Glucose 80 mg/dL (74-99); Non-African American GFR(MDRD) >60 (>60 ml/min/1.73 sqM); Potassium 3.7 mmol/L (3.5-5.1); Sodium 138 mmol/L (137-145)
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
[2016-12-29] MEDS: ENOXAPARIN 40 MG/0.4 ML SYRINGE SQ SCH (10:38)
[2016-12-29] MEDS: KETOROLAC 30 MG/ML 1 ML VIAL IVP PRN ×2 (10:39→21:23)
[2016-12-29] MEDS: PRASUGREL 10 MG TAB PO SCH (10:39)
[2016-12-29] MEDS: CYANOCOBALAMIN 500 MCG TAB PO SCH (11:44)
[2016-12-29] MEDS: CHOLECALCIFEROL 1,000 UNIT TAB PO SCH (11:44)
[2016-12-29] MEDS ORDERED: IV FLUID CONTINUATION 1,000 ML IV ONE (12:56)
[2016-12-29] MEDS ORDERED: LIDOCAINE 1% 20 ML VIAL (10MG/ML) FOR IV START INTRADERMA ONE (13:15)
[2016-12-29] MEDS ORDERED: MIDAZOLAM 2 MG/2 ML VIAL IVP ONE (13:30)
[2016-12-29] MEDS ORDERED: fentaNYL (PF) 50 MCG/ML 2 ML AMP IVP ONE (13:31)
[2016-12-29] MEDS ORDERED: ONDANSETRON 4 MG/2 ML VIAL IVP ONE (13:36)
--- NOTE | 2016-12-29 13:46 | P.ONQ ---
Anesthesiology Proc Note - PNB - Peripheral Nerve Block Performed Right Popliteal Single Time Out Performed: Yes Indication: Acute Post-Operative Pain, Analgesia Specifically requested for management of pain by Dr.: Chet Kang Sedation Type: Awake Preparation: Sterile Prep Position: Prone Catheter: None Needle Types: Other (see comment) (stimuplex) Needle Size: 50mm (2") Needle Gauge: 21 Technique: Ultrasound Injectate: Other (see comment) (15cc 0.5 % rop, 15cc 2% lido) Adjunct: Epinephrine (see comment for dilution ratio) (1/200,000) Blood Aspirated: No Pain Paresthesia on Injection Noted: No Resistance on Injection: Normal Events: Uneventful and Well Tolerated
[2016-12-29] MEDS ORDERED: ROCURONIUM BROMIDE 10 MG/ML 10 ML VIAL IV ONE (13:50)
[2016-12-29] MEDS ORDERED: SUCCINYLCHOLINE CHLORIDE 100 MG/5 ML SYR IV ONE (13:50)
[2016-12-29] MEDS ORDERED: KETAMINE 10 MG/ML 20 ML VIAL ONE (13:50)
[2016-12-29] MEDS ORDERED: NEOSTIGMINE 1 MG/ML 10 ML VIAL ONE (13:50)
[2016-12-29] MEDS ORDERED: fentaNYL (PF) 50 MCG/ML 2 ML AMP ONE (13:50)
[2016-12-29] MEDS ORDERED: HYDROmorphone (PF) 1 MG/ML ONE (13:50)
[2016-12-29] MEDS ORDERED: PROPOFOL 10 MG/ML 20 ML VIAL IV ONE (13:50)
[2016-12-29] MEDS ORDERED: LIDOCAINE 1% INJ 10MG/ML (20 ML MDV) ONE (13:50)
[2016-12-29] MEDS ORDERED: GLYCOPYRROLATE 0.2 MG/ML 2 ML VIAL ONE (13:50)
[2016-12-29] MEDS ORDERED: MIDAZOLAM 2 MG/2 ML VIAL ONE (13:50)
[2016-12-29] MEDS ORDERED: SODIUM CHLORIDE 0.9% 50 ML with ceFAZolin 2,000 MG IV ONE ×2 (14:00)
[2016-12-29] MEDS ORDERED: LACTATED RINGERS 1,000 ML IV ONE ×2 (14:16→16:45)
--- NOTE | 2016-12-29 15:57 | XR ---
Fluoroscopy INDICATION: Pain FINDINGS: Fluoroscopy time: 37 seconds. Images obtained: 3. IMPRESSIONS: 1. Documentation of fluoroscopy.
--- NOTE | 2016-12-29 15:58 | FL ---
Fluoroscopy INDICATION: Pain FINDINGS: Fluoroscopy time: 43 seconds. Images obtained: 2. IMPRESSIONS: 1. Documentation of fluoroscopy.
[2016-12-29] MEDS ORDERED: hydrOXYzine PAMOATE 25 MG CAP PO PRN (16:23)
[2016-12-29] MEDS ORDERED: TEMAZEPAM 15 MG CAP PO PRN (16:23)
[2016-12-29] MEDS ORDERED: PROCHLORPERAZINE SUPPOSITORY 25 MG SUPP RECTAL PRN (16:23)
[2016-12-29] MEDS ORDERED: HYDROmorphone 0.5 MG/0.5 ML SYRINGE IVP PRN (16:23)
[2016-12-29] MEDS ORDERED: SENNOSIDES-DOCUSATE SODIUM 1 EACH TAB PO PRN (16:23)
[2016-12-29] MEDS ORDERED: diphenhydrAMINE 25 MG CAP PO PRN (16:23)
[2016-12-29] MEDS: LACTATED RINGERS 1,000 ML IV SCH (17:44)
[2016-12-29] MEDS: HYDROmorphone 1 MG/ML 1 ML SYRINGE IVP PRN ×2 (19:01→22:14)
[2016-12-29] MEDS ORDERED: ASPIRIN 325 MG TAB PO SCH (21:00)
[2016-12-29] MEDS: MONTELUKAST 10 MG TAB PO SCH (21:23)
[2016-12-29] MEDS: AMITRIPTYLINE HCL 50 MG TAB PO SCH (21:23)
[2016-12-29 23:14] LABS: Appearance,Urine Clear (Clear); Bacteria,Urine Rare /hpf; Bilirubin,Urine Negative (Negative); Glucose,Urine (UA) Negative (Negative); Ketones,Urine Negative (Negative); Leukocyte Esterase,Urine Large (Negative); Mucus,Urine Rare /hpf; Nitrite,Urine Positive (Negative); PH, Urine 5.5 (5.0-8.0); Particle Count 7734; Protein,Urine Negative (Negative); RBC,Urine 6 /hpf (0-5); Specific Gravity,Urine 1.009 (1.001-1.035); Squamous Epithelial Cell,Urine 1 /hpf (0-4); UA Billing (MACRO vs. MICRO) MICRO; Urobilinogen,Urine <2.0 mg/dL (<2.0); WBC,Urine 43 /hpf (0-5)
[2016-12-29] MEDS: ceFAZolin 2 GM in SODIUM CHLORIDE 0.9% 100 ML IVPB SCH (23:35)
[2016-12-30] MEDS: HYDROmorphone 1 MG/ML 1 ML SYRINGE IVP PRN ×2 (01:15→04:12)
[2016-12-30] MEDS: KETOROLAC 30 MG/ML 1 ML VIAL IVP PRN ×2 (03:22→22:59)
[2016-12-30] MEDS: SODIUM CHLORIDE 0.9% 1,000 ML IV SCH ×3 (03:40→15:07)
[2016-12-30] MEDS: LEVOTHYROXINE 50 MCG TAB PO SCH (05:23)
[2016-12-30] MEDS: LACTATED RINGERS 1,000 ML IV SCH ×3 (05:35→17:05)
[2016-12-30] MEDS: IPRATROPIUM 0.5 MG/2.5 ML NEBU INHALATION SCH ×4 (07:25→21:02)
[2016-12-30] MEDS: SYMBICORT 80-4.5 MCG INHALER INHALATION SCH ×2 (07:26→20:40)
[2016-12-30 08:16] LABS: Anion Gap 6 mmol/L; Blood Urea Nitrogen 9 mg/dL (7-17); Calcium 7.6 mg/dL (8.4-10.2); Carbon Dioxide 25 mmol/L (22-30); Chloride 106 mmol/L (98-107); Glucose 88 mg/dL (74-99); Non-African American GFR(MDRD) >60 (>60 ml/min/1.73 sqM); Potassium 3.4 mmol/L (3.5-5.1); Sodium 137 mmol/L (137-145)
[2016-12-30 09:01] LABS: Anisocytosis Slight; Basophils % (A) 0 %; CHCM 31.2; Eosinophils # (A) 0.3 k/uL (0-0.7); Eosinophils % (A) 3 %; HCT 25.5 % (34.0-46.0); HDW 2.57; HGB 8.2 gm/dL (11.4-16.0); Hypochromasia Slight; Luc # (Auto) 0.13; Luc % (Auto) 1; Lymphocytes # (A) 1.2 k/uL (1.0-4.8); Lymphocytes % (A) 13 %; MCHC 32.2 g/dL (31.0-37.0); MCV 90.1 fL (80.0-100.0); Mean Platelet Volume 7.4; Monocytes # (A) 0.5 k/uL (0-1.0); Monocytes % (A) 6 %; Neutrophils # (A) 6.9 k/uL (1.3-7.7); Neutrophils % (A) 76 %; RBC 2.83 m/uL (3.80-5.40); RDW 17.2 % (11.5-15.5); WBC 9.1 k/uL (3.8-10.6); WBC (Perox) 9.19
[2016-12-30] MEDS ORDERED: HYDROcodone/APAP 5-325MG 1 EACH TAB PO PRN (09:28)
[2016-12-30] MEDS: ATORVASTATIN 20 MG TAB PO SCH (09:29)
[2016-12-30] MEDS: ENOXAPARIN 40 MG/0.4 ML SYRINGE SQ SCH (09:30)
[2016-12-30] MEDS: HYDROCHLOROTHIAZIDE 25 MG TAB PO SCH (09:30)
[2016-12-30] MEDS: ISOSORBIDE MONONITRATE ER 60 MG TAB.ER.24H PO SCH (09:30)
[2016-12-30] MEDS: LORATADINE 10 MG TAB PO SCH (09:31)
[2016-12-30] MEDS: LISINOPRIL 20 MG TAB PO SCH (09:31)
[2016-12-30] MEDS: PANTOPRAZOLE 40 MG/10 ML VIAL IV SCH (09:32)
[2016-12-30] MEDS: METOPROLOL TARTRATE 25 MG TAB PO SCH ×2 (09:32→20:28)
[2016-12-30] MEDS: PRASUGREL 10 MG TAB PO SCH (09:32)
[2016-12-30] MEDS: SERTRALINE 50 MG TAB PO SCH (09:33)
[2016-12-30] MEDS: ceFAZolin 2 GM in SODIUM CHLORIDE 0.9% 100 ML IVPB SCH (09:41)
[2016-12-30] MEDS ORDERED: Potassium Replacement Protocol 1 EACH MISC MISCELLANE PRN (11:35)
[2016-12-30] MEDS: CHOLECALCIFEROL 1,000 UNIT TAB PO SCH (11:59)
[2016-12-30] MEDS: CYANOCOBALAMIN 500 MCG TAB PO SCH (12:00)
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
--- NOTE | 2016-12-30 14:02 | P.PN ---
Subjective Principal diagnosis: Right trimalleolar ankle fracture Patient is postop day #1 from ORIF of right trimalleolar ankle fracture. She is seen at bedside. She has pain at the surgical site as expected but appears to have pain is controlled with medications. She denies new complaints. She denies calf pain, fever, chills, numbness, tingling, chest pain, shortness of breath or other. Objective - Vital Signs Vital signs: Vital Signs Temp 98.2 F 12/30/16 07:00 Pulse 72 12/30/16 07:00 Resp 14 12/30/16 07:00 BP 130/67 12/30/16 07:00 Pulse Ox 97 12/30/16 07:00 Intake & Output 12/29/16 12/30/16 12/30/16 18:59 06:59 18:59 Intake Total 1850 1150 Output Total 50 Balance 1800 1150 Intake: IV 1850 Intake, IV Titration 1150 Amount Lactated Ringers 1,000 ml 1150 @ 100 mls/hr IV .Q10H [facility] Rx#:[id number] Oral 0 Output: Estimated Blood Loss 50 Other: Voiding Method Bedpan Bedpan # Voids 4 1 - Exam Inspection of the right lower extremity shows appropriate fitting splint and bandage intact. There is no active bleeding or drainage that is evident. Neurovascular status is intact with sensation and motor at all digits. Less than 2 second cap refill is present in all digits. - Constitutional General appearance: Present: no acute distress - Psychiatric Psychiatric: Present: A&O x's 3, appropriate affect, intact judgment & insight - Labs CBC & Chem 7: 12/30/16 07:08 12/30/16 07:08 Labs: Abnormal Lab Results - Last 24 Hours (Table) 12/29/16 12/30/16 12/30/16 Range/Units 22:55 07:08 07:08 RBC 2.83 L (3.80-5.40) m/uL Hgb 8.2 L (11.4-16.0) gm/dL Hct 25.5 L (34.0-46.0) % RDW 17.2 H (11.5-15.5) % Potassium 3.4 L (3.5-5.1) mmol/L Calcium 7.6 L (8.4-10.2) mg/dL Urine Blood Moderate H (Negative) Urine Nitrite Positive H (Negative) Ur Leukocyte Esterase Large H (Negative) Urine RBC 6 H (0-5) /hpf Urine WBC 43 H (0-5) /hpf Urine Bacteria Rare H (None) /hpf Urine Mucus Rare H (None) /hpf Microbiology - Last 24 Hours (Table) 12/29/16 22:55 Urine Culture - Preliminary Urine,Voided Assessment and Plan (1) Closed right ankle fracture Narrative/Plan: She'll continue with routine postop orthopedic protocol including pain management, wound care, physical therapy, nonweightbearing, DVT prophylaxis and medical management. She's also to keep the right lower extremity elevated. Plan is to be transferred to an extended care facility versus home in the next 1 -2 days. Status: Acute Time with Patient: Less than 30
[2016-12-30] MEDS: POTASSIUM CHLORIDE 10 MEQ, LIDOCAINE 2% INJ 10 MG in SODIUM CHLORIDE 0.9% 100 ML IV SCH ×2 (14:46→15:04)
[2016-12-30] MEDS: HYDROmorphone 0.5 MG/0.5 ML SYRINGE IVP PRN ×2 (17:00→21:07)
[2016-12-30 20:25] VITALS: RESP 16
[2016-12-30] MEDS: MONTELUKAST 10 MG TAB PO SCH (20:28)
[2016-12-30] MEDS: AMITRIPTYLINE HCL 50 MG TAB PO SCH (20:29)
[2016-12-30] MEDS ORDERED: HALOPERIDOL LACTATE 5 MG/ML 1 ML VIAL IM STA (23:19)
[2016-12-31] MEDS: KETOROLAC 30 MG/ML 1 ML VIAL IVP PRN ×2 (06:21→13:00)
[2016-12-31] MEDS: LEVOTHYROXINE 50 MCG TAB PO SCH (06:21)
[2016-12-31] MEDS ORDERED: PANTOPRAZOLE 40 MG TABLET PO SCH (07:30)
[2016-12-31] MEDS: SYMBICORT 80-4.5 MCG INHALER INHALATION SCH (07:34)
[2016-12-31] MEDS: IPRATROPIUM 0.5 MG/2.5 ML NEBU INHALATION SCH ×2 (07:35→11:09)
[2016-12-31 07:52] VITALS: BP 136/88; PULSE 112; TEMP 97.9
[2016-12-31] MEDS: METOPROLOL TARTRATE 25 MG TAB PO SCH (08:05)
[2016-12-31] MEDS: ENOXAPARIN 40 MG/0.4 ML SYRINGE SQ SCH (08:05)
[2016-12-31] MEDS: ISOSORBIDE MONONITRATE ER 60 MG TAB.ER.24H PO SCH (08:06)
[2016-12-31] MEDS: LORATADINE 10 MG TAB PO SCH (08:06)
[2016-12-31] MEDS: LISINOPRIL 20 MG TAB PO SCH (08:06)
[2016-12-31] MEDS: PRASUGREL 10 MG TAB PO SCH (08:06)
[2016-12-31] MEDS: HYDROCHLOROTHIAZIDE 25 MG TAB PO SCH (08:06)
[2016-12-31] MEDS: SERTRALINE 50 MG TAB PO SCH (08:07)
[2016-12-31] MEDS: ATORVASTATIN 20 MG TAB PO SCH (08:07)
[2016-12-31] MEDS: LACTATED RINGERS 1,000 ML IV SCH (10:06)
[2016-12-31] MEDS: SODIUM CHLORIDE 0.9% 1,000 ML IV SCH (10:06)
--- NOTE | 2016-12-31 10:06 | P.PN ---
Subjective Principal diagnosis: Right trimalleolar ankle fracture Patient is postop day #2 from ORIF of right trimalleolar ankle fracture. She is seen at bedside. She has pain at the surgical site as expected but appears to be controlled with medications. She denies new complaints. She denies calf pain, fever, chills, numbness, tingling, chest pain, shortness of breath or other. Objective - Vital Signs Vital signs: Vital Signs Temp 97.9 F 12/31/16 07:00 Pulse 112 H 12/31/16 07:00 Resp 16 12/31/16 07:00 BP 136/88 12/31/16 07:00 Pulse Ox 95 12/31/16 07:00 Intake & Output 12/30/16 12/31/16 12/31/16 18:59 06:59 18:59 Intake Total 240 300 Balance 240 300 Intake: Oral 240 300 Other: Voiding Method Bedpan Bedside Commode Bedpan # Voids 1 1 - Exam Inspection of the right lower extremity shows appropriate fitting splint and bandage intact. There is no evidence of active bleeding or drainage. Neurovascular status is intact with sensation and motor at all digits. Less than 2 second cap refill is present in all digits. - Constitutional General appearance: Present: no acute distress - Psychiatric Psychiatric: Present: A&O x's 3, appropriate affect, intact judgment & insight - Labs CBC & Chem 7: 12/30/16 07:08 12/30/16 15:46 Labs: Microbiology - Last 24 Hours (Table) 12/29/16 22:55 Urine Culture - Preliminary Urine,Voided Assessment and Plan (1) Closed right ankle fracture Narrative/Plan: She'll continue with routine postop orthopedic protocol including pain management, wound care, physical therapy, nonweightbearing, DVT prophylaxis and medical management. She's also to keep the right lower extremity elevated. She may be discharged to home with home healthcare from an orthopedic standpoint okay with internal medicine. Due to her nonweightbearing status she should utilize a wheelchair with elevated foot rest. She will follow up with Dr. Kang as an outpatient. Status: Acute Time with Patient: Less than 30
[2016-12-31] MEDS: CYANOCOBALAMIN 500 MCG TAB PO SCH (13:01)
[2016-12-31] MEDS: CHOLECALCIFEROL 1,000 UNIT TAB PO SCH (13:01)
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
--- NOTE | 2017-01-01 07:38 | OP ---
OPERATIVE REPORT DATE OF SERVICE: 12/29/2016 PREOPERATIVE DIAGNOSIS: Right closed trimalleolar ankle fracture. POSTOPERATIVE DIAGNOSIS: Right closed trimalleolar ankle fracture. PROCEDURE PERFORMED: Open reduction, internal fixation right trimalleolar ankle fracture. SURGEON: Chet Kang MD MUSIC PROMOTER: Ariel POP. ANESTHESIA: General endotracheal. ESTIMATED BLOOD LOSS: 50 mL. TOURNIQUET TIME: 78 minutes at 250 mmHg. DRAINS: None. COMPLICATIONS: None apparent. DISPOSITION: Postanesthesia care unit. INDICATIONS: Madina is a very pleasant, 61-year-old female, who injured her right ankle this past weekend in the shower. She initially presented to [facility]'s emergency department. Closed reduction was performed by the emergency room staff. She was placed into a well-padded splint and discharged home. Madina is on pain management for chronic back pain. She had trouble dealing with the pain in the right ankle and she was readmitted on 12/28/2016. X-rays upon readmission showed that the ankle reduction was not maintained. Due to her pain management issues, we made the decision to proceed with closed reduction with application of a ankle splint versus open reduction, internal fixation of her right trimalleolar fracture. This would depend on the condition of extent of swelling and her skin condition at the time of the procedure. I had a long discussion with her with regards to these options. At this point, she does wish to proceed with operative intervention. Risks were explained to the patient and her which include but are not limited to risk of infection, nerve damage, bleeding, pain, failure of the hardware, failure of the fractures to heal. There is also risk of continued pain in the ankle. Further, there is also a small risk of deep vein thrombosis which could lead to fatal pulmonary embolism. Patient and her understand the risks and they wish to proceed with the surgical procedure. After description of the procedure, I saw Madina in preop. We did take the splint down. She had a mild amount of swelling about the ankle. The skin showed wrinkles. There was no blistering. The skin was intact. Due to the minimal mild amount of swelling, I deemed that it was safe to proceed with open reduction, internal fixation at this time. She was then given 2 g of Ancef IV for prophylactic purposes. She was then transferred to the operative suite where she was placed supine on the operating table. General anesthetic was then administered and dosed per the anesthesia without apparent complication. A bump was placed under the right hip to aid in exposure of the lateral malleolus. A tourniquet was then placed high on the right upper thigh well- padded in preparation for surgery. The right lower extremity was then prepped and draped in the usual sterile fashion. Standard surgical pause was then undertaken to ensure we are operating on the correct site and that appropriate preoperative antibiotics have been given. All staff in the room were in agreement and we proceeded. The outlines of the of the distal fibular were marked with a surgical pen. A planned 10 cm incision extending from the distal tip of the fibula proximally along the posterior 3rd of the fibula was marked with a surgical pen. The leg was then exsanguinated with an Esmarch dressing. The tourniquet was inflated to 250 mmHg. Incision was then made with a 15 blade scalpel. Dissection was carried down sharply to the distal fibula. Great care was taken to maximize the thickness of the skin flaps as well. The fracture was readily evident. Any fibrinous tissue was debrided with a curette. bleeding surface for the repair. I then placed a 2.7 mm bicortical screw from anterior to posterior, perpendicular to the fracture. This was done after reducing the fracture with a reduction clamp. I was able to rosales in the teeth of the fracture to ensure that it was out to length and was reduced as anatomically as possible. I then placed an 8 hole Synthes 1/3 tubular plate along the lateral aspect of the distal fibula. Fluoroscopy was brought in to evaluate for the length of the plate. The plate length was appropriate. I then placed three 3.5 mm bicortical nonlocking screws in the proximal 3 holes of the plate and two 4.0 mm cortical screws distal to the distal 2 holes of the plate distal to the fracture. The syndesmosis was grossly unstable. The plan was to proceed with syndesmotic fixation at the end of the case as well. I then made a move to the medial malleolus. I made an approximate 3 cm incision centered which curved anteriorly over the anterior 1/3 of the medial malleolus. Dissection was carried down sharply through the skin. I then bluntly dissected down to the medial malleolus. The saphenous vein was identified and protected throughout the rest of the procedure. I then inspected the joint through the fracture line of the medial malleolus. The there were no loose bodies. I did not observe any cartilage damage to the talar dome through this. The joint was then thoroughly irrigated with sterile saline solution with antibiotic added. I then proceeded with fixation of the medial malleolus. This was done with 2 parallel 4.0 mm partially threaded, cannulated screws. The guide wires were placed under fluoroscopic guidance. The 2 partially-threaded 4.0 mm cannulated screws were then placed with excellent purchase in both screws. This reduced the medial malleolus very nicely. I then evaluated the posterior malleolus. She had very unstable approximate 25% posterior malleolus fragment as well. I deemed that this also required fixation due to the gross instability of her ankle. I placed a small percutaneous incision just on the lateral aspect of the Achilles tendon. I then was able to place a clamp on the anterior aspect of the distal tibia and in the posterior aspect of the clamp I was able to compress the posterior malleolus piece. I then placed a percutaneous 4.0 mm partially threaded cannulated screw in the anterolateral aspect of the distal tibia. This had good purchase in the posterior malleolus fracture piece. It had good purchase. Throughout placement, care was taken to protect and avoid injury to the superficial peroneal nerve. I then through the medial incision placed a second 4.0 mm partially threaded cannulated screw through the anteromedial aspect of the distal tibia. This caught the medial aspect of the posterior malleolus piece. Again the guidewire placement for the screws was placed under fluoroscopic imaging. I then proceeded with placement of a syndesmotic screw. This was through the hole just distal to the fracture site. The drill was then placed under fluoroscopic guidance. A 4.5 mm fully threaded screw was chosen. I then reduced the syndesmosis using the Mirza Tong large clamp which was placed on both the medial and lateral malleolus to compress and reduced the syndesmosis. The 4.5 mm screw was then placed with excellent purchase in both cortices of the fibula and also both cortices of the distal tibia. This provided good fixation of the syndesmosis. I then stressed the ankle with forced external rotation. There was no widening or gapping of the medial clear space. The ankle was stable. All screws were of appropriate length as confirmed by fluoroscopic imaging. At this point, necessary. Both the medial and lateral incisions and the percutaneous incisions were irrigated with sterile saline solution with antibiotic added. The deep layer over the fibular plate was closed with 0 Vicryl interrupted suture. The subcutaneous tissue was closed with 2-0 Vicryl interrupted suture and the skin was closed with stainless steel tata. The medial incision, the subcutaneous tissue was closed with 2-0 Vicryl interrupted suture and the skin was closed with stainless steel tata. The superficial stab incisions were closed with stainless steel tata. Sterile compressive dressings were then applied. The patient was then placed into a well-padded posterior molded splint with side struts. All sponge and needle counts were deemed correct prior to closure. The patient tolerated the procedure without apparent complication. The tourniquet was deflated prior to closure. The total tourniquet time for the procedure was 78 minutes at 250 mmHg. She was transferred to the recovery room in stable condition. MMODL / IJN: [id number] /
== END 2016-12-31 16:10 | disposition home health service (06) ==
LOC: EC 13:13 → INTOOBSV 14:57 → 5MS5E 14:57
PROVIDERS: ADMIT Hospitalist; ATTEND Hospitalist
DX: S82.851A Displaced trimalleolar fracture of right lower leg, initial encounter for closed fracture (principal); E44.0 Moderate protein-calorie malnutrition; I10 Essential (primary) hypertension; E83.51 Hypocalcemia; I25.10 Atherosclerotic heart disease of native coronary artery without angina pectoris; G89.29 Other chronic pain; J44.9 Chronic obstructive pulmonary disease, unspecified; K21.9 Gastro-esophageal reflux disease without esophagitis; W01.0XXA Fall on same level from slipping, tripping and stumbling without subsequent striking against object, initial encounter; F31.9 Bipolar disorder, unspecified; E87.6 Hypokalemia; E03.9 Hypothyroidism, unspecified; F41.9 Anxiety disorder, unspecified; Y92.012 Bathroom of single-family (private) house as the place of occurrence of the external cause; M54.9 Dorsalgia, unspecified; Z90.49 Acquired absence of other specified parts of digestive tract; Z98.41 Cataract extraction status, right eye; Z98.42 Cataract extraction status, left eye; Z87.19 Personal history of other diseases of the digestive system; Z87.01 Personal history of pneumonia (recurrent); Z90.710 Acquired absence of both cervix and uterus; Z80.9 Family history of malignant neoplasm, unspecified; Z90.89 Acquired absence of other organs; Z79.899 Other long term (current) drug therapy; Z79.82 Long term (current) use of aspirin; Z79.51 Long term (current) use of inhaled steroids; Z88.1 Allergy status to other antibiotic agents; Z88.2 Allergy status to sulfonamides; Z79.02 Long term (current) use of antithrombotics/antiplatelets; Z79.891 Long term (current) use of opiate analgesic; Z87.891 Personal history of nicotine dependence; Z95.5 Presence of coronary angioplasty implant and graft; Z86.718 Personal history of other venous thrombosis and embolism; Z87.820 Personal history of traumatic brain injury
CPT/HCPCS: 27823; 96376 ×2; 96375; 96374; 99285; 94640 ×6; 97161; 80048 ×2; 84132; 85025 ×2; 85610; 81001; 82306; 87086; 87077; 87186; 73600; 73610; G0378 ×4; C1713; J2001 ×2; J2250; J2060; J1630; J2710; J0690 ×3; J2405; J3480; J1650 ×2; J3010; J1885 ×3; J1170 ×4; J0330; J2704; C9113 ×2

== ENCOUNTER → 2017-09-28 | Outpatient (CLI) | payer OTHER ==
[2017-09-28 14:34] LABS: Calcium 9.4 mg/dL (8.4-10.2); Magnesium 1.4 mg/dL (1.6-2.3); Potassium 4.1 mmol/L (3.5-5.1)
== END | disposition home or self-care (01) ==
LOC: LABWHC1 13:33
PROVIDERS: ATTEND Internal Medicine Interventional Cardiology
DX: I10 Essential (primary) hypertension (principal)
CPT/HCPCS: 36415; 80048; 83735

== ENCOUNTER 2017-10-15 05:44 | Day surgery (SDC) | payer OTHER ==
[2017-10-12 15:12] VITALS: BMI 30.2
[2017-10-15] MEDS ORDERED: ATORVASTATIN 80 MG TAB PO STA (05:55)
[2017-10-15] MEDS ORDERED: NITROGLYCERIN SL TABS 0.4 MG TAB SUBLINGUAL PRN (05:55)
[2017-10-15] MEDS ORDERED: ALPRAZolam 0.5 MG TAB PO PRN (05:55)
[2017-10-15] MEDS ORDERED: ALPRAZolam 0.25 MG TAB PO PRN (05:55)
[2017-10-15] MEDS ORDERED: ASPIRIN 325 MG TAB PO STA (05:55)
[2017-10-15] MEDS ORDERED: SODIUM CHLORIDE 0.9% 1,000 ML in EMPTY BAG 1 BAG IV ONE (06:00)
[2017-10-15 06:20] VITALS: TEMP 98.1
[2017-10-15] MEDS ORDERED: MIDAZOLAM 2 MG/2 ML VIAL ONE ×2 (08:26→09:38)
[2017-10-15] MEDS ORDERED: HEPARIN SODIUM 1,000 UN/ML (10ML VL) ONE (08:26)
[2017-10-15] MEDS ORDERED: VERAPAMIL 2.5 MG/ML 2 ML AMP ONE (08:26)
[2017-10-15] MEDS ORDERED: LIDOCAINE 1% INJ 10MG/ML (20 ML MDV) ONE (08:26)
[2017-10-15] MEDS: MIDAZOLAM 2 MG/2 ML VIAL IVP ONE ×2 (09:25→09:30)
[2017-10-15] MEDS ORDERED: LIDOCAINE 1% INJ 10MG/ML (20 ML MDV) SQ ONE (09:30)
[2017-10-15] MEDS ORDERED: fentaNYL (PF) 50 MCG/ML 2 ML AMP ONE (09:38)
[2017-10-15] MEDS: fentaNYL (PF) 50 MCG/ML 2 ML AMP IVP ONE ×2 (09:40→09:46)
[2017-10-15] MEDS ORDERED: MIDAZOLAM 2 MG/2 ML VIAL IVP ONE (09:40)
[2017-10-15] MEDS ORDERED: NITROGLYCERIN 1000MCG/10ML SYRINGE INTRAARTER ONE (09:42)
[2017-10-15] MEDS: NITROGLYCERIN 1000MCG/10ML SYRINGE INTRACORON ONE ×2 (09:42→09:44)
[2017-10-15] MEDS ORDERED: IOPAMIDOL-370 125ML BTL INJ ONE (09:49)
[2017-10-15] MEDS ORDERED: RX INFO: IV CONTRAST WAS GIVEN 1 EACH MISC MISCELLANE PRN (09:53)
[2017-10-15] MEDS ORDERED: SODIUM CHLORIDE 0.9% 1,000 ML IV SCH (10:00)
--- NOTE | 2017-10-15 10:25 | CC ---
CARDIAC CATHETERIZATION REPORT DATE OF SERVICE: 10/15/2017 PERFORMING PHYSICIAN: Pola Stockton MD, shearing machine feeder. PROCEDURE PERFORMED: 1. Selective right and left coronary angiogram. 2. Left heart catheterization. INDICATION: This is a very pleasant, 62-year-old female patient with history of coronary artery disease and prior stenting of the RCA, was experiencing chest discomfort concerning for angina. Because of that, heart catheterization was recommended. APPROACH: Right common femoral artery. COMPLICATION: None. LEVEL OF SEDATION: Moderate, sedation length of 22 minutes. PROCEDURE DESCRIPTION: After obtaining an informed consent, the patient was brought to the laboratory veterinarian. The right common femoral artery was cannulated using micropuncture technique and a micropuncture wire passed easily then I placed a 6-Kyrgyz sheath in the right common femoral artery. After that, I did selective right and left coronary angiogram using JR4 and JL4 catheter. I did left heart catheterization using JR4 catheter which flipped into the LV then I did pullback across aortic valve. The procedure was completed without any complication. SELECTIVE CORONARY ANGIOGRAM: 1. The RCA is a large caliber vessel and it is a dominant vessel. The RCA is stented in the mid and distal portion and the stents are patent. Distally bifurcates into PDA and PLV branches, both are angiographically normal. 2. The left main is angiographically normal. It bifurcates into the left circumflex and left anterior descending artery. 3. The left circumflex is a large caliber vessel. It is a nondominant vessel. The proximal circumflex has mild disease only. The mid circumflex is normal and gives rise into a large OM branch which seems to be angiographically normal and the circumflex continued after that as a small-caliber vessel in the AV groove. 4. The LAD: The proximal LAD appeared to have mild disease only. The mid LAD is normal and gives rise into 2 small diagonal branches both are angiographically normal. The LAD in the mid to distal portion has a lesion appeared to be in the range of 50%, seems to be unchanged compared to before. CONCLUSION: 1. Patent stents in the right coronary artery. 2. Normal left main coronary artery. 3. Mild disease involving the left circumflex. 4. Intermediate disease involving the mid left anterior descending artery, seems to be unchanged compared to before. POSTPROCEDURE MANAGEMENT: Maximize medical treatment and follow up with the patient. MMODL / IJN: [id number] /
[2017-10-15 13:04] VITALS: BP 132/77; PULSE 80; RESP 18
== END 2017-10-15 16:55 | disposition home or self-care (01) ==
LOC: CATHCVL 05:44
PROVIDERS: ATTEND Internal Medicine Interventional Cardiology
DX: I25.110 Atherosclerotic heart disease of native coronary artery with unstable angina pectoris (principal); I10 Essential (primary) hypertension; Z95.5 Presence of coronary angioplasty implant and graft; E78.5 Hyperlipidemia, unspecified; Z87.891 Personal history of nicotine dependence; I73.9 Peripheral vascular disease, unspecified; Z79.890 Hormone replacement therapy; Z79.899 Other long term (current) drug therapy; Z79.82 Long term (current) use of aspirin; Z79.51 Long term (current) use of inhaled steroids; Z79.02 Long term (current) use of antithrombotics/antiplatelets; Z88.2 Allergy status to sulfonamides
CPT/HCPCS: 93458; C1894 ×2; C1769 ×2; J2250; J2001; J3010; Q9967; 93454

== ENCOUNTER 2017-10-20 13:15 | Emergency (ER) | payer OTHER ==
[2017-10-20 13:38] VITALS: BP 132/87; PULSE 97; RESP 18; TEMP 97.6
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
--- NOTE | 2017-10-20 14:30 | XR ---
EXAMINATION TYPE: XR tibia fibula LT DATE OF EXAM: 10/20/2017 CLINICAL HISTORY: Fall injury with lacerations and pain TECHNIQUE: Two views of the left leg are obtained. COMPARISON: None. FINDINGS: There is no acute fracture or dislocation seen in the left tibia or fibula. There is mild to moderate spurring at ankle joint along the malleoli. The visualized portion of knee joint is withi n normal limits. Mild diffuse subcutaneous edema is present. IMPRESSION: There is no acute fracture or dislocation seen in the left tibia or fibula.
== END 2017-10-20 14:46 | disposition home or self-care (01) ==
LOC: EC 13:15
DX: S80.12XA Contusion of left lower leg, initial encounter (principal); J45.909 Unspecified asthma, uncomplicated; I20.9 Angina pectoris, unspecified; J44.9 Chronic obstructive pulmonary disease, unspecified; K21.9 Gastro-esophageal reflux disease without esophagitis; E78.5 Hyperlipidemia, unspecified; I10 Essential (primary) hypertension; F41.9 Anxiety disorder, unspecified; F31.9 Bipolar disorder, unspecified; E07.9 Disorder of thyroid, unspecified; Z87.828 Personal history of other (healed) physical injury and trauma; Z86.718 Personal history of other venous thrombosis and embolism; Z87.891 Personal history of nicotine dependence; Z90.49 Acquired absence of other specified parts of digestive tract; Z95.5 Presence of coronary angioplasty implant and graft; Z98.890 Other specified postprocedural states; Z79.51 Long term (current) use of inhaled steroids; Z79.82 Long term (current) use of aspirin; Z79.899 Other long term (current) drug therapy; Z88.1 Allergy status to other antibiotic agents; Z88.2 Allergy status to sulfonamides; Z88.8 Allergy status to other drugs, medicaments and biological substances; W10.9XXA Fall (on) (from) unspecified stairs and steps, initial encounter
CPT/HCPCS: 99283

== ENCOUNTER 2017-12-21 14:57 | Emergency (ER) | payer OTHER ==
[2017-12-21] MEDS ORDERED: SODIUM CHLORIDE 0.9% 1,000 ML IV ONE (15:43)
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
[2017-12-21 16:21] LABS: Basophils % (A) 0 %; Eosinophils # (A) 0.5 k/uL (0-0.7); Eosinophils % (A) 5 %; HCT 33.9 % (34.0-46.0); HGB 11.1 gm/dL (11.4-16.0); Lymphocytes # (A) 2.4 k/uL (1.0-4.8); Lymphocytes % (A) 25 %; MCH 30.6 pg (25.0-35.0); MCHC 32.6 g/dL (31.0-37.0); MCV 93.8 fL (80.0-100.0); Mean Platelet Volume 7.1; Monocytes # (A) 0.4 k/uL (0-1.0); Monocytes % (A) 4 %; Neutrophils # (A) 6.1 k/uL (1.3-7.7); Neutrophils % (A) 64 %; Platelet Count 261 k/uL (150-450); RBC 3.62 m/uL (3.80-5.40); RDW 15.2 % (11.5-15.5); WBC 9.5 k/uL (3.8-10.6)
[2017-12-21 16:23] LABS: Appearance,Urine Cloudy (Clear); Bacteria,Urine Few /hpf; Bilirubin,Urine Negative (Negative); Blood,Urine Moderate (Negative); Color,Urine Yellow; Glucose,Urine (UA) Negative (Negative); Hyaline Casts,Urine 1 /lpf (0-2); Ketones,Urine Negative (Negative); Leukocyte Esterase,Urine Moderate (Negative); Mucus,Urine Rare /hpf; Nitrite,Urine Positive (Negative); PH, Urine 5.5 (5.0-8.0); Protein,Urine Trace (Negative); RBC,Urine 6 /hpf (0-5); Specific Gravity,Urine 1.015 (1.001-1.035); Squamous Epithelial Cell,Urine <1 /hpf (0-4); Urobilinogen,Urine <2.0 mg/dL (<2.0); WBC,Urine 51 /hpf (0-5)
[2017-12-21 16:29] LABS: Partial Thromboplastin Time 23.1 sec (22.0-30.0); Prothrombin Time 9.6 sec (9.0-12.0)
[2017-12-21 16:30] LABS: Albumin 3.5 g/dL (3.5-5.0); Calcium 8.4 mg/dL (8.4-10.2); Potassium 4.5 mmol/L (3.5-5.1); Total Bilirubin 0.2 mg/dL (0.2-1.3); Total Protein 7.3 g/dL (6.3-8.2)
--- NOTE | 2017-12-21 16:58 | ED ---
Medical Decision Making - Lab Data Result diagrams: 12/21/17 16:15 12/21/17 16:15 Lab Results 12/21/17 12/21/17 12/21/17 Range/Units 16:15 16:15 16:15 WBC 9.5 (3.8-10.6) k/uL RBC 3.62 L (3.80-5.40) m/uL Hgb 11.1 L (11.4-16.0) gm/dL Hct 33.9 L (34.0-46.0) % MCV 93.8 (80.0-100.0) fL MCH 30.6 (25.0-35.0) pg MCHC 32.6 (31.0-37.0) g/dL RDW 15.2 (11.5-15.5) % Plt Count 261 (150-450) k/uL Neutrophils % 64 % Lymphocytes % 25 % Monocytes % 4 % Eosinophils % 5 % Basophils % 0 % Neutrophils # 6.1 (1.3-7.7) k/uL Lymphocytes # 2.4 (1.0-4.8) k/uL Monocytes # 0.4 (0-1.0) k/uL Eosinophils # 0.5 (0-0.7) k/uL Basophils # 0.0 (0-0.2) k/uL PT 9.6 (9.0-12.0) sec INR 1.0 (<1.2) APTT 23.1 (22.0-30.0) sec Sodium 142 (137-145) mmol/L Potassium 4.5 (3.5-5.1) mmol/L Chloride 107 (98-107) mmol/L Carbon Dioxide 28 (22-30) mmol/L Anion Gap 7 mmol/L BUN 18 H (7-17) mg/dL Creatinine 0.84 (0.52-1.04) mg/dL Est GFR (CKD-EPI)AfAm 86 (>60 ml/min/1.73 sqM) Est GFR (CKD-EPI)NonAf 74 (>60 ml/min/1.73 sqM) Glucose 90 (74-99) mg/dL Calcium 8.4 (8.4-10.2) mg/dL Total Bilirubin 0.2 (0.2-1.3) mg/dL AST 23 (14-36) U/L ALT 10 (9-52) U/L Alkaline Phosphatase 154 H (38-126) U/L Total Protein 7.3 (6.3-8.2) g/dL Albumin 3.5 (3.5-5.0) g/dL Urine Color Urine Appearance (Clear) Urine pH (5.0-8.0) Ur Specific [place] (1.001-1.035) Urine Protein (Negative) Urine Glucose (UA) (Negative) Urine Ketones (Negative) Urine Blood (Negative) Urine Nitrite (Negative) Urine Bilirubin (Negative) Urine Urobilinogen (<2.0) mg/dL Ur Leukocyte Esterase (Negative) Urine RBC (0-5) /hpf Urine WBC (0-5) /hpf Ur Squamous Epith Cells (0-4) /hpf Urine Bacteria (None) /hpf Hyaline Casts (0-2) /lpf Urine Mucus (None) /hpf 12/21/17 Range/Units 16:15 WBC (3.8-10.6) k/uL RBC (3.80-5.40) m/uL Hgb (11.4-16.0) gm/dL Hct (34.0-46.0) % MCV (80.0-100.0) fL MCH (25.0-35.0) pg MCHC (31.0-37.0) g/dL RDW (11.5-15.5) % Plt Count (150-450) k/uL Neutrophils % % Lymphocytes % % Monocytes % % Eosinophils % % Basophils % % Neutrophils # (1.3-7.7) k/uL Lymphocytes # (1.0-4.8) k/uL Monocytes # (0-1.0) k/uL Eosinophils # (0-0.7) k/uL Basophils # (0-0.2) k/uL PT (9.0-12.0) sec INR (<1.2) APTT (22.0-30.0) sec Sodium (137-145) mmol/L Potassium (3.5-5.1) mmol/L Chloride (98-107) mmol/L Carbon Dioxide (22-30) mmol/L Anion Gap mmol/L BUN (7-17) mg/dL Creatinine (0.52-1.04) mg/dL Est GFR (CKD-EPI)AfAm (>60 ml/min/1.73 sqM) Est GFR (CKD-EPI)NonAf (>60 ml/min/1.73 sqM) Glucose (74-99) mg/dL Calcium (8.4-10.2) mg/dL Total Bilirubin (0.2-1.3) mg/dL AST (14-36) U/L ALT (9-52) U/L Alkaline Phosphatase (38-126) U/L Total Protein (6.3-8.2) g/dL Albumin (3.5-5.0) g/dL Urine Color Yellow Urine Appearance Cloudy H (Clear) Urine pH 5.5 (5.0-8.0) Ur Specific [place] 1.015 (1.001-1.035) Urine Protein Trace H (Negative) Urine Glucose (UA) Negative (Negative) Urine Ketones Negative (Negative) Urine Blood Moderate H (Negative) Urine Nitrite Positive H (Negative) Urine Bilirubin Negative (Negative) Urine Urobilinogen <2.0 (<2.0) mg/dL Ur Leukocyte Esterase Moderate H (Negative) Urine RBC 6 H (0-5) /hpf Urine WBC 51 H (0-5) /hpf Ur Squamous Epith Cells <1 (0-4) /hpf Urine Bacteria Few H (None) /hpf Hyaline Casts 1 (0-2) /lpf Urine Mucus Rare H (None) /hpf Disposition Clinical Impression: UTI (urinary tract infection), Hemorrhoid, History of epistaxis Disposition: HOME SELF-CARE Condition: Good Instructions: Urinary Tract Infection in Women (ED) Additional Instructions: Patient advised to follow-up with primary care provider. Return to emergency department if any alarming signs or symptoms occur. Take antibiotic as prescribed. Prescriptions: Cephalexin [Keflex] 500 mg PO Q8HR #21 cap Is patient prescribed a controlled substance at d/c from ED?: No Referrals: Gianna Azul III, MD [Primary Care Provider] - 1-2 days Greyson Gramajo MD [STAFF PHYSICIAN] - 1-2 days Hesham Bob MD [STAFF PHYSICIAN] - 1-2 days Time of Disposition: 16:58
[2017-12-21 17:06] VITALS: BP 153/90; PULSE 68; RESP 18; TEMP 97.9
== END 2017-12-21 17:05 | disposition home or self-care (01) ==
LOC: EC 14:57
DX: N39.0 Urinary tract infection, site not specified (principal); K64.9 Unspecified hemorrhoids; R04.0 Epistaxis; J44.9 Chronic obstructive pulmonary disease, unspecified; K21.9 Gastro-esophageal reflux disease without esophagitis; E78.5 Hyperlipidemia, unspecified; I10 Essential (primary) hypertension; E07.9 Disorder of thyroid, unspecified; Z90.710 Acquired absence of both cervix and uterus; Z95.818 Presence of other cardiac implants and grafts; Z95.5 Presence of coronary angioplasty implant and graft; Z79.82 Long term (current) use of aspirin; Z79.51 Long term (current) use of inhaled steroids; Z79.890 Hormone replacement therapy; Z79.899 Other long term (current) drug therapy; Z88.8 Allergy status to other drugs, medicaments and biological substances; Z88.1 Allergy status to other antibiotic agents; Z88.2 Allergy status to sulfonamides
CPT/HCPCS: 36415; 80053; 81001; 85025; 85610; 85730; 87086; 96360; 99284

== ENCOUNTER 2018-01-22 16:00 | Emergency (ER) | payer OTHER ==
[2018-01-22 16:06] VITALS: RESP 18; TEMP 97.5
--- NOTE | 2018-01-22 17:27 | XR ---
EXAMINATION TYPE: XR wrist complete LT DATE OF EXAM: 01/22/2018 COMPARISON: NONE HISTORY: 61-year-old female left wrist pain since yesterday TECHNIQUE: 4 views FINDINGS: Mild left ureteric changes at the base of the thumb and triscaphe joint. Radiocarpal and distal radia l ulnar joint as well as the midcarpal compartment appear intact. There is mild soft tissue swelling about the wrist without acute fracture or dislocation. IMPRESSION: Soft tissue swelling about the wrist. 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 No acute osseous abnormality seen.
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
[2018-01-22] MEDS ORDERED: MORPHINE SULFATE 4 MG/ML SYRINGE IM STA (17:45)
[2018-01-22 18:24] VITALS: BP 136/94; PULSE 97
== END 2018-01-22 18:23 | disposition home or self-care (01) ==
LOC: EC 16:00
DX: M19.032 Primary osteoarthritis, left wrist (principal); J44.9 Chronic obstructive pulmonary disease, unspecified; K21.9 Gastro-esophageal reflux disease without esophagitis; E78.5 Hyperlipidemia, unspecified; I10 Essential (primary) hypertension; E07.9 Disorder of thyroid, unspecified; F31.9 Bipolar disorder, unspecified; F41.9 Anxiety disorder, unspecified; Z87.891 Personal history of nicotine dependence; Z79.82 Long term (current) use of aspirin; Z79.51 Long term (current) use of inhaled steroids; Z79.899 Other long term (current) drug therapy; Z88.1 Allergy status to other antibiotic agents; Z88.2 Allergy status to sulfonamides; Z88.8 Allergy status to other drugs, medicaments and biological substances; Z95.5 Presence of coronary angioplasty implant and graft
CPT/HCPCS: 73110; 99283; 96372; J2270

== ENCOUNTER 2018-06-16 11:02 | Emergency (ER) | payer OTHER ==
[2018-06-16 11:12] VITALS: TEMP 98.4
[2018-06-16 11:20] LABS: Glucose,Whole Blood 98 mg/dL (75-99)
[2018-06-16] MEDS ORDERED: SODIUM CHLORIDE 0.9% 1,000 ML IV STA ×2 (11:29)
--- NOTE | 2018-06-16 12:00 | XR ---
EXAMINATION TYPE: XR chest 2V DATE OF EXAM: 06/16/2018 COMPARISON: Chest x-ray March 01, 2018 HISTORY: History of COPD and asthma with weakness for 2 days. TECHNIQUE: Frontal and lateral views of the chest are obtained. FINDINGS: There is increased patient rotation to the right on current study making evaluation subopti mal. There is cardiomegaly with ectatic aorta. Reticular interstitial changes bilaterally remain pres ent. No new pleural effusion or pneumothorax is identified bilaterally. The osseous structures are i ntact. IMPRESSION: Suboptimal study, chronic parenchymal change and cardiomegaly redemonstrated without new acute pulmonary process identified.
[2018-06-16 12:35] LABS: Basophils % (A) 0 %; Eosinophils # (A) 0.2 k/uL (0-0.7); Eosinophils % (A) 3 %; HCT 35.9 % (34.0-46.0); HGB 11.2 gm/dL (11.4-16.0); Lymphocytes # (A) 0.7 k/uL (1.0-4.8); Lymphocytes % (A) 11 %; MCHC 31.2 g/dL (31.0-37.0); Mean Platelet Volume 6.6; Monocytes # (A) 0.4 k/uL (0-1.0); Monocytes % (A) 5 %; Neutrophils # (A) 5.4 k/uL (1.3-7.7); Neutrophils % (A) 79 %; Platelet Count 241 k/uL (150-450); RBC 3.86 m/uL (3.80-5.40); RDW 15.5 % (11.5-15.5); WBC 6.9 k/uL (3.8-10.6)
[2018-06-16 12:41] LABS: Partial Thromboplastin Time 24.1 sec (22.0-30.0); Prothrombin Time 10.6 sec (9.0-12.0)
[2018-06-16 12:46] LABS: Albumin 3.4 g/dL (3.5-5.0); Calcium 8.9 mg/dL (8.4-10.2); Magnesium 1.6 mg/dL (1.6-2.3); Phosphorus 3.3 mg/dL (2.5-4.5); Total Bilirubin 0.4 mg/dL (0.2-1.3); Total Protein 6.8 g/dL (6.3-8.2)
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
[2018-06-16 13:26] LABS: Appearance,Urine Clear (Clear); Bilirubin,Urine Negative (Negative); Blood,Urine Small (Negative); Color,Urine Yellow; Glucose,Urine (UA) Negative (Negative); Hyaline Casts,Urine 5 /lpf (0-2); Ketones,Urine Negative (Negative); Leukocyte Esterase,Urine Negative (Negative); Mucus,Urine Rare /hpf; Nitrite,Urine Negative (Negative); Protein,Urine Trace (Negative); RBC,Urine 5 /hpf (0-5); Specific Gravity,Urine 1.014 (1.001-1.035); Squamous Epithelial Cell,Urine 1 /hpf (0-4); Urobilinogen,Urine <2.0 mg/dL (<2.0); WBC,Urine <1 /hpf (0-5)
--- NOTE | 2018-06-16 14:03 | CT ---
EXAMINATION TYPE: CT brain wo con DATE OF EXAM: 06/16/2018 COMPARISON: 02/26/2018 HISTORY: 62-year-old female Altered mental status TECHNIQUE: Examination was done in axial plane without intravenous contrast. Coronal and sagittal r econstructions performed. CT DLP: 1099.4 mGycm Automated exposure control for dose reduction was used. FINDINGS: There is excessive motion artifact above the level of the mid skull limiting assessment. No obvious l arge intracranial hemorrhage. Assessment for extra-axial hemorrhages are limited, for example, referr ed to axial image 39. No midline shift, mass effect, or effacement of basal subarachnoid cisterns. No hydrocephalus. Moderate mucosal thickening throughout the right maxillary, bilateral ethmoid, and sphenoid sinuses w ith small air-fluid levels. Left ethmoid air cells and right sphenoid sinus. Mastoid air cells well p neumatized. No string on the right. Severe intact. IMPRESSION: 1. Marked motion artifacts along the superior portion of the head. Extra-axial hemorrhage cannot be a dequately excluded and dislocation on the basis of this exam due to the degree of motion artifact. If persistent concern, the patient may need to be rescanned. 2. No acute intracranial abnormality seen within the remainder of the head. 3. Moderate chronic gaytan sinus disease with possible superimposed acute sinusitis.
[2018-06-16 16:22] VITALS: BP 114/64; PULSE 73; RESP 14
== END 2018-06-16 16:28 | disposition home or self-care (01) ==
LOC: EC 11:02
DX: R41.82 Altered mental status, unspecified (principal); R53.1 Weakness; R44.3 Hallucinations, unspecified; J44.9 Chronic obstructive pulmonary disease, unspecified; I20.9 Angina pectoris, unspecified; R29.6 Repeated falls; K21.9 Gastro-esophageal reflux disease without esophagitis; E78.5 Hyperlipidemia, unspecified; I10 Essential (primary) hypertension; E07.9 Disorder of thyroid, unspecified; F41.9 Anxiety disorder, unspecified; F31.9 Bipolar disorder, unspecified; Z87.891 Personal history of nicotine dependence; Z86.718 Personal history of other venous thrombosis and embolism; Z87.81 Personal history of (healed) traumatic fracture; Z90.49 Acquired absence of other specified parts of digestive tract; Z90.710 Acquired absence of both cervix and uterus; Z95.5 Presence of coronary angioplasty implant and graft; Z98.890 Other specified postprocedural states; Z79.02 Long term (current) use of antithrombotics/antiplatelets; Z79.51 Long term (current) use of inhaled steroids; Z79.82 Long term (current) use of aspirin; Z79.890 Hormone replacement therapy; Z79.899 Other long term (current) drug therapy
CPT/HCPCS: 36415; 70450; 71046; 80053; 81001; 82140; 83605; 83735; 84100; 84443; 84484; 85025; 85610; 85730; 87086; 93005; 96360; 96361; 99285

== ENCOUNTER 2018-07-08 12:19 | Emergency (ER) | payer OTHER ==
[2018-07-08] MEDS ORDERED: SODIUM CHLORIDE 0.9% 1,000 ML IV STA (12:24)
[2018-07-08 12:27] VITALS: TEMP 97.6
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
[2018-07-08 12:43] LABS: Basophils % (A) 0 %; Eosinophils # (A) 0.3 k/uL (0-0.7); Eosinophils % (A) 3 %; HCT 34.6 % (34.0-46.0); HGB 11.4 gm/dL (11.4-16.0); Lymphocytes # (A) 1.2 k/uL (1.0-4.8); Lymphocytes % (A) 13 %; MCH 28.7 pg (25.0-35.0); MCHC 32.8 g/dL (31.0-37.0); MCV 87.4 fL (80.0-100.0); Mean Platelet Volume 9.3; Monocytes # (A) 0.3 k/uL (0-1.0); Monocytes % (A) 3 %; Neutrophils # (A) 7.4 k/uL (1.3-7.7); Neutrophils % (A) 80 %; Platelet Count 230 k/uL (150-450); RBC 3.96 m/uL (3.80-5.40); RDW 15.1 % (11.5-15.5); WBC 9.3 k/uL (3.8-10.6)
[2018-07-08 12:53] LABS: Albumin 3.7 g/dL (3.5-5.0); Total Bilirubin 0.6 mg/dL (0.2-1.3); Total Protein 7.6 g/dL (6.3-8.2)
[2018-07-08] MEDS ORDERED: SODIUM CHLORIDE 0.9% 1,000 ML IV ONE ×2 (12:57→13:52)
--- NOTE | 2018-07-08 12:57 | CT ---
EXAMINATION TYPE: CT brain wo con DATE OF EXAM: 07/08/2018 COMPARISON: 06/16/2018 INDICATION: Weakness And confusion. DLP: 2312.4 mGycm, Automated exposure control for dose reduction was used. CONTRAST: None CT of the brain is performed utilizing 3 mm thick sections through the posterior fossa and 3 mm thick sections through the remaining calvarium. Study is performed within 24 hours of arrival to the hosp ital. No abnormal hyperdensity is present to suggest an acute intracranial hemorrhage. No mass lesion is evident. No acute infarcts are evident. Mild periventricular white matter hypodensity is present, likely on th e basis of chronic white matter ischemic changes. Findings appear stable over the interval. Ventricles and sulci are appropriate for the patient age. Paranasal sinuses and mastoid air cells within the [id number] are clear. IMPRESSIONS: 1. Mild chronic appearing periventricular white matter ischemic type changes.
[2018-07-08 13:03] LABS: Creatine Kinase 27 U/L (30-135)
[2018-07-08 13:06] LABS: Glucose,Whole Blood 89 mg/dL (75-99)
[2018-07-08 13:06] LABS: Prothrombin Time 10.3 sec (9.0-12.0)
[2018-07-08 13:08] LABS: Partial Thromboplastin Time 21.4 sec (22.0-30.0)
[2018-07-08 13:10] LABS: Magnesium 1.4 mg/dL (1.6-2.3)
--- NOTE | 2018-07-08 13:12 | XR ---
EXAMINATION TYPE: XR chest 1V portable DATE OF EXAM: 07/08/2018 COMPARISON: Prior chest x-ray 06/16/2018 HISTORY: Altered mental status TECHNIQUE: Single frontal view of the chest is obtained. FINDINGS: The patient is rotated. There are cardiac leads. There is no focal air space opacity, pleu ral effusion, or pneumothorax seen. The cardiac silhouette size is stable, enlarged. The osseous s tructures are intact. IMPRESSION: Chronic cardiomegaly. Rotated exam. Follow-up as indicated..
[2018-07-08 13:16] LABS: Creatine Kinase MB <0.2 ng/mL (0.0-2.4); Troponin I <0.012 ng/mL (0.000-0.034)
[2018-07-08] MEDS ORDERED: MAGNESIUM SULFATE-D5W PMX 1 GM in DEXTROSE/WATER 1 100ML.BAG IVPB ONE (13:52)
[2018-07-08] MEDS ORDERED: ASPIRIN 325 MG TAB PO STA (13:56)
[2018-07-08 14:56] LABS: Appearance,Urine Clear (Clear); Bacteria,Urine Occasional /hpf; Bilirubin,Urine Negative (Negative); Blood,Urine Negative (Negative); Color,Urine Yellow; Glucose,Urine (UA) Negative (Negative); Hyaline Casts,Urine 9 /lpf (0-2); Ketones,Urine Negative (Negative); Leukocyte Esterase,Urine Moderate (Negative); Mucus,Urine Rare /hpf; Nitrite,Urine Negative (Negative); PH, Urine 5.5 (5.0-8.0); Protein,Urine Trace (Negative); RBC,Urine 2 /hpf (0-5); Specific Gravity,Urine 1.018 (1.001-1.035); Squamous Epithelial Cell,Urine 1 /hpf (0-4); Urobilinogen,Urine <2.0 mg/dL (<2.0); WBC,Urine 21 /hpf (0-5)
[2018-07-08] MEDS ORDERED: cefTRIAXone IN SWFI 1,000 MG/10 ML SYRINGE IVP STA (15:23)
[2018-07-08 15:34] VITALS: BP 103/87; PULSE 77; RESP 16
== END 2018-07-08 16:48 | disposition other institution (70) ==
LOC: EC 12:19
DX: I63.9 Cerebral infarction, unspecified (principal); R29.701 NIHSS score 1; I95.9 Hypotension, unspecified; N39.0 Urinary tract infection, site not specified; J44.9 Chronic obstructive pulmonary disease, unspecified; E78.5 Hyperlipidemia, unspecified; K21.9 Gastro-esophageal reflux disease without esophagitis; I10 Essential (primary) hypertension; E07.9 Disorder of thyroid, unspecified; F41.9 Anxiety disorder, unspecified; F31.9 Bipolar disorder, unspecified; Z79.51 Long term (current) use of inhaled steroids; Z79.890 Hormone replacement therapy; Z79.82 Long term (current) use of aspirin; Z79.899 Other long term (current) drug therapy; Z88.2 Allergy status to sulfonamides; Z88.1 Allergy status to other antibiotic agents; Z88.8 Allergy status to other drugs, medicaments and biological substances; Z95.5 Presence of coronary angioplasty implant and graft; Z86.718 Personal history of other venous thrombosis and embolism; Z87.891 Personal history of nicotine dependence
CPT/HCPCS: 99291; 36415; 93005; 80053; 82550; 82553; 83605; 83735; 84484; 85025; 85610; 85730; 81001; 87040; 71045; 70450; 96365; 96375; 96361 ×2; J0696; J3475

== ENCOUNTER → 2018-07-27 | Outpatient (CLI) | payer OTHER ==
[2018-07-27 15:34] LABS: Anisocytosis Slight; HCT 29.1 % (34.0-46.0); Hypochromasia Slight; MCH 30.6 pg (25.0-35.0); MCV 95.4 fL (80.0-100.0); Mean Platelet Volume 7.4; Platelet Count 301 k/uL (150-450); RBC 3.05 m/uL (3.80-5.40); RDW 16.1 % (11.5-15.5); WBC 9.8 k/uL (3.8-10.6)
[2018-07-27 15:42] LABS: HGB 9.3 gm/dL (11.4-16.0)
--- NOTE | 2018-07-27 16:28 | CT ---
EXAMINATION TYPE: CT abdomen pelvis w con DATE OF EXAM: 07/27/2018 COMPARISON: 03/03/2018 INDICATION: Andominal pain and distension DLP: 958.1 mGycm, Automated exposure control for dose reduction was used. CONTRAST: 100 mL of Isovue 300. Study performed with Oral Contrast TECHNIQUE: Axial images were obtained from above the diaphragm to the pubic rami in the axial plane a t 5 mm thick sections. Reconstructed images are reviewed on the computer in the coronal plane. FINDINGS: Limited CT sections are obtained the lung bases. The lung bases are clear. Heart size is somewhat p rominent. Hiatal hernia is present. Reflux of oral contrast into the hiatal hernia is evident. CT ABDOMEN: Liver: Normal Spleen: Normal Pancreas: Normal Adrenal glands: The adrenal glands are normal. Gallbladder: Surgically absent Kidneys: No masses are evident. No hydronephrosis is present. No cysts are present. Delayed images were obtained through the kidneys, which remain unremarkable. Aorta: Vascular calcification is within the aorta. Inferior vena cava: Normal. CT PELVIS: Loops of bowel within the abdomen and pelvis are normal. There are loops of bowel which are incom pletely distended or lack oral contrast limiting their evaluation. Appendix: Normal as visualized. Urinary bladder: Normal. Genitourinary structures: Uterus and ovaries are not identified. Osseous structures: No suspicious lytic or sclerotic lesions. Sacroiliac joint degenerative changes a re noted. Mild facet hypertrophy is present lower lumbar spine. Subcutaneous tissues: There is a large collection within the left gluteal region could be a hematoma. Phlegmon and abscess could be considered in the proper clinical setting. IMPRESSIONS: 1. No acute intra-abdominal process. 2. Note is made of a large collection within the left gluteal subcutaneous tissue region likely is a hematoma. This measures approximately 3.1 x 9.1 cm.
== END | disposition home or self-care (01) ==
LOC: RADCTMAIN 13:08
PROVIDERS: ATTEND Family Medicine
DX: K92.1 Melena (principal); K92.2 Gastrointestinal hemorrhage, unspecified; R10.9 Unspecified abdominal pain; R14.0 Abdominal distension (gaseous)
CPT/HCPCS: 86304; 85027; 74177; 36415; Q9967

== ENCOUNTER 2018-07-31 18:17 | Inpatient (IN) | payer OTHER ==
[2018-07-31] MEDS ORDERED: SODIUM CHLORIDE 0.9% 500 ML 500 ML IV STA (18:32)
[2018-07-31] MEDS ORDERED: SODIUM CHLORIDE 0.9% 1,000 ML IV ONE ×2 (18:32)
[2018-07-31] MEDS ORDERED: SODIUM CHLORIDE 0.9% 1,000 ML IV STA ×2 (18:32)
[2018-07-31] MEDS ORDERED: ACETAMINOPHEN TAB 500 MG TAB PO STA (18:32)
[2018-07-31] MEDS ORDERED: IBUPROFEN 600 MG TAB PO STA (18:32)
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
[2018-07-31 19:48] LABS: Glucose,Whole Blood 120 mg/dL (75-99)
[2018-07-31 19:58] LABS: Basophils % (A) 0 %; Eosinophils # (A) 0.1 k/uL (0-0.7); Eosinophils % (A) 1 %; HCT 29.2 % (34.0-46.0); HGB 9.2 gm/dL (11.4-16.0); Hypochromasia Slight; Lymphocytes # (A) 0.8 k/uL (1.0-4.8); Lymphocytes % (A) 7 %; MCH 30.1 pg (25.0-35.0); MCHC 31.7 g/dL (31.0-37.0); MCV 94.9 fL (80.0-100.0); Mean Platelet Volume 7.1; Monocytes # (A) 0.6 k/uL (0-1.0); Monocytes % (A) 5 %; Neutrophils # (A) 10.4 k/uL (1.3-7.7); Neutrophils % (A) 86 %; Platelet Count 260 k/uL (150-450); RBC 3.07 m/uL (3.80-5.40); RDW 15.4 % (11.5-15.5); WBC 12.1 k/uL (3.8-10.6)
[2018-07-31 20:08] LABS: Ammonia <9 umol/L (<30); Lactic Acid, Venous 0.7 mmol/L (0.7-2.0)
[2018-07-31 20:14] LABS: INR 1.1 (<1.2); Partial Thromboplastin Time 25.8 sec (22.0-30.0); Prothrombin Time 11.9 sec (9.0-12.0)
[2018-07-31 20:16] LABS: ALT 26 U/L (9-52); AST 26 U/L (14-36); Albumin 3.3 g/dL (3.5-5.0); Alkaline Phosphatase 141 U/L (38-126); Anion Gap 8 mmol/L; Blood Urea Nitrogen 13 mg/dL (7-17); Calcium 8.5 mg/dL (8.4-10.2); Carbon Dioxide 23 mmol/L (22-30); Chloride 104 mmol/L (98-107); Glucose 105 mg/dL (74-99); Magnesium 1.4 mg/dL (1.6-2.3); Phosphorus 2.7 mg/dL (2.5-4.5); Potassium 3.8 mmol/L (3.5-5.1); Sodium 135 mmol/L (137-145); Total Bilirubin 0.9 mg/dL (0.2-1.3); Total Protein 6.7 g/dL (6.3-8.2)
[2018-07-31] MEDS ORDERED: LEVOFLOXACIN 750MG-D5W PMX 750 MG in DEXTROSE/WATER 1 150ML.BAG IVPB STA (20:51)
[2018-07-31] MEDS ORDERED: PNEUMONIA PROTOCOL UTILIZED 1 EACH MISC PO PRN (20:51)
[2018-07-31] MEDS ORDERED: IPRATROPIUM-ALBUTEROL 3 ML NEB INHALATION STA (20:51)
--- NOTE | 2018-07-31 21:24 | CT ---
EXAMINATION TYPE: CT brain wo con DATE OF EXAM: 07/31/2018 COMPARISON: 07/08/2018 HISTORY: ams, confusion CT DLP: 1158.4 mGycm Automated exposure control for dose reduction was used. FINDINGS: Ventricles of normal size. There is no mass effect nor midline shift. There is no sign of intracrania l hemorrhage. There is mild cerebral atrophy. The calvarium is intact. There is streak artifact from density on the right side of the skull. IMPRESSION: NEGATIVE CT SCAN OF THE BRAIN. NO CHANGE. MILD ATROPHY.
--- NOTE | 2018-07-31 21:25 | XR ---
EXAMINATION TYPE: XR chest 2V DATE OF EXAM: 07/31/2018 COMPARISON: 07/08/2018 HISTORY: Altered mental status TECHNIQUE: Frontal and lateral views of the chest are obtained. FINDINGS: Heart is enlarged but there is some patchy airspace infiltrate in the left upper lobe ante riorly. There is coarsening of the lung markings. There is no gross heart failure. There is slight bl unting of right costophrenic angle. IMPRESSION: There is new left upper lobe pneumonia compared to old exam. Cardiomegaly. Pulmonary fib rotic changes. No overt heart failure. There is probably a small right pleural effusion.
[2018-07-31 21:51] LABS: Appearance,Urine Clear (Clear); Bilirubin,Urine Negative (Negative); Blood,Urine Moderate (Negative); Color,Urine Yellow; Glucose,Urine (UA) Negative (Negative); Hyaline Casts,Urine 1 /lpf (0-2); Ketones,Urine Negative (Negative); Leukocyte Esterase,Urine Negative (Negative); Mucus,Urine Rare /hpf; Nitrite,Urine Negative (Negative); Protein,Urine 1+ (Negative); RBC,Urine 6 /hpf (0-5); Specific Gravity,Urine 1.018 (1.001-1.035); Squamous Epithelial Cell,Urine <1 /hpf (0-4); Urobilinogen,Urine <2.0 mg/dL (<2.0)
[2018-07-31 21:58] LABS: Amphetamine Screen,Urine Not Detected (NotDetected); Barbiturate Screen,Urine Not Detected (NotDetected); Benzodiazepines Screen,Urine Not Detected (NotDetected); Cocaine Screen,Urine Not Detected (NotDetected); Methadone Screen, Urine Not Detected (NotDetected); Opiate Screen,Urine Not Detected (NotDetected); Oxycodone Screen, Urine Not Detected (NotDetected); Phencyclidine Screen,Urine Not Detected (NotDetected); Tricyclic Antidepressant,Urine Detected (NotDetected); Urn Cannabinoid Scrn Not Detected (NotDetected)
[2018-07-31] MEDS: PIPERACILLIN-TAZOBACTAM 3.375 GM in SODIUM CHLORIDE 0.9% 100 ML IVPB STA (23:00)
[2018-08-01] MEDS: MAGNESIUM SULFATE-D5W PMX 1 GM in DEXTROSE/WATER 1 100ML.BAG IVPB SCH ×2 (01:01)
[2018-08-01] MEDS ORDERED: VANCOMYCIN IV PER PHARMACY 1 EACH MISC MISCELLANE PRN (01:33)
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
[2018-08-01] MEDS: PIPERACILLIN-TAZOBACTAM 3.375 GM in SODIUM CHLORIDE 0.9% 100 ML IVPB STA (02:17)
[2018-08-01] MEDS ORDERED: VANCOMYCIN 1,500 MG in SODIUM CHLORIDE 0.9% 250 ML IVPB SCH ×2 (02:30→14:00)
[2018-08-01] MEDS: LEVOTHYROXINE 75 MCG TAB PO SCH (06:00)
[2018-08-01] MEDS: ENOXAPARIN 40 MG/0.4 ML SYRINGE SQ SCH (07:39)
[2018-08-01] MEDS: CLOPIDOGREL 75 MG TAB PO SCH (07:39)
[2018-08-01] MEDS: LISINOPRIL 10 MG TAB PO SCH (07:39)
[2018-08-01] MEDS: ATORVASTATIN 20 MG TAB PO SCH (07:39)
[2018-08-01] MEDS: PANTOPRAZOLE 40 MG TABLET PO SCH ×2 (07:39→16:39)
[2018-08-01] MEDS: METOPROLOL TARTRATE 25 MG TAB PO SCH ×2 (07:39→20:59)
[2018-08-01] MEDS: SERTRALINE 100 MG TAB PO SCH (07:40)
[2018-08-01] MEDS: FOLIC ACID 1 MG TAB PO SCH (07:40)
[2018-08-01] MEDS: ISOSORBIDE MONONITRATE ER 60 MG TAB.ER.24H PO SCH (07:40)
[2018-08-01] MEDS: amLODIPine 5 MG TAB PO SCH (07:40)
[2018-08-01] MEDS: FLUTICASONE 50MCG/SPRAY NASAL 16GM EA NOSTRIL SCH (07:41)
--- NOTE | 2018-08-01 08:09 | XR ---
EXAMINATION TYPE: XR chest 2V DATE OF EXAM: 08/01/2018 COMPARISON: 07/31/2018 HISTORY: 89 year-old female shortness of breath, follow-up pneumonia TECHNIQUE: Frontal and lateral views FINDINGS: Heart mildly enlarged. Diffuse interstitial densities. Left upper lobe consolidation and mild patchy densities throughout the right lung, not significantly changed. IMPRESSION: Cardiomegaly with continued left upper lobe airspace disease and patchy infiltrates throughout the ri ght lung, not significantly changed.
[2018-08-01] MEDS: PIPERACILLIN-TAZOBACTAM 3.375 GM in SODIUM CHLORIDE 0.9% 100 ML IVPB SCH ×3 (08:14→23:24)
[2018-08-01] MEDS: IPRATROPIUM-ALBUTEROL 3 ML NEB INHALATION SCH ×4 (08:20→19:47)
[2018-08-01] MEDS: SYMBICORT 80-4.5 MCG INHALER INHALATION SCH ×2 (08:20→19:47)
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
[2018-08-01] MEDS: guaiFENesin 600 MG TABLET.ER PO SCH ×2 (13:25→21:00)
[2018-08-01 14:05] LABS: HCT 24.7 % (34.0-46.0); HGB 8.1 gm/dL (11.4-16.0); Hypochromasia Slight; MCH 30.7 pg (25.0-35.0); MCHC 32.7 g/dL (31.0-37.0); MCV 93.9 fL (80.0-100.0); Mean Platelet Volume 7.6; Platelet Count 227 k/uL (150-450); RBC 2.63 m/uL (3.80-5.40); RDW 15.3 % (11.5-15.5); WBC 9.5 k/uL (3.8-10.6)
[2018-08-01] MEDS ORDERED: LEVOFLOXACIN 750MG-D5W PMX 750 MG in DEXTROSE/WATER 1 150ML.BAG IVPB SCH (20:52)
[2018-08-01] MEDS: AMITRIPTYLINE HCL 50 MG TAB PO SCH (20:59)
[2018-08-01] MEDS: QUEtiapine 200 MG TAB PO SCH (20:59)
[2018-08-01] MEDS: DOCUSATE 100 MG CAP PO SCH (20:59)
[2018-08-01] MEDS: oxyCODONE-APAP 7.5-325MG 1 EACH TAB PO PRN (20:59)
[2018-08-01] MEDS: MONTELUKAST 10 MG TAB PO SCH (21:00)
[2018-08-01] MEDS: LEVOFLOXACIN 750 MG TAB PO SCH (21:00)
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
[2018-08-02] MEDS: LEVOTHYROXINE 75 MCG TAB PO SCH (05:49)
[2018-08-02] MEDS: LISINOPRIL 10 MG TAB PO SCH (07:54)
[2018-08-02] MEDS: ISOSORBIDE MONONITRATE ER 60 MG TAB.ER.24H PO SCH (07:54)
[2018-08-02] MEDS: amLODIPine 5 MG TAB PO SCH (07:54)
[2018-08-02] MEDS: SERTRALINE 100 MG TAB PO SCH (07:54)
[2018-08-02] MEDS: FOLIC ACID 1 MG TAB PO SCH (07:54)
[2018-08-02] MEDS: ATORVASTATIN 20 MG TAB PO SCH (07:54)
[2018-08-02] MEDS: PANTOPRAZOLE 40 MG TABLET PO SCH ×2 (07:54→15:19)
[2018-08-02] MEDS: METOPROLOL TARTRATE 25 MG TAB PO SCH ×2 (07:54→20:03)
[2018-08-02] MEDS: ENOXAPARIN 40 MG/0.4 ML SYRINGE SQ SCH (07:54)
[2018-08-02] MEDS: CLOPIDOGREL 75 MG TAB PO SCH (07:54)
[2018-08-02] MEDS: PIPERACILLIN-TAZOBACTAM 3.375 GM in SODIUM CHLORIDE 0.9% 100 ML IVPB SCH ×3 (07:55→23:37)
[2018-08-02] MEDS: guaiFENesin 600 MG TABLET.ER PO SCH ×2 (07:55→20:03)
[2018-08-02] MEDS: FLUTICASONE 50MCG/SPRAY NASAL 16GM EA NOSTRIL SCH (07:55)
[2018-08-02] MEDS: oxyCODONE-APAP 7.5-325MG 1 EACH TAB PO PRN ×3 (08:08→20:06)
[2018-08-02] MEDS: SYMBICORT 80-4.5 MCG INHALER INHALATION SCH ×2 (08:46→20:30)
[2018-08-02] MEDS: IPRATROPIUM-ALBUTEROL 3 ML NEB INHALATION SCH ×4 (08:46→20:30)
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
[2018-08-02] MEDS: KETOROLAC 30 MG/ML 1 ML VIAL IVP SCH ×2 (16:42→23:37)
[2018-08-02] MEDS: AMITRIPTYLINE HCL 50 MG TAB PO SCH (20:03)
[2018-08-02] MEDS: LEVOFLOXACIN 750 MG TAB PO SCH (20:03)
[2018-08-02] MEDS: DOCUSATE 100 MG CAP PO SCH (20:03)
[2018-08-02] MEDS: MONTELUKAST 10 MG TAB PO SCH (20:03)
[2018-08-02] MEDS: QUEtiapine 200 MG TAB PO SCH (20:03)
--- NOTE | 2018-08-02 22:55 | PN ---
PROGRESS NOTE DATE OF SERVICE: 08/02/2018. REASON FOR FOLLOWUP: Pneumonia. INTERVAL HISTORY: The patient is currently afebrile. The patient is breathing more comfortably. The patient continues to have a cough, bringing up some sputum but unable to provide any sputum sample. No nausea, no vomiting. No abdominal pain. No diarrhea. PHYSICAL EXAMINATION: Blood pressure 108/58 with a pulse of 94, temperature 98, she is 92% on room air. General description is a middle-aged female lying in bed in no distress. Respiratory system: Unlabored breathing. Coarse breath sounds at the bases. No wheeze. Heart S1, S2. Regular rate and rhythm. Abdomen soft, no tenderness. LABS: Hemoglobin 8.1, white count 9.5. Blood culture has been negative. No sputum provided. DIAGNOSTIC IMPRESSION/PLAN: Patient with left upper lobe pneumonia, possible gram-negative. Patient not able to provide any history. The patient has been taking care of her and who possibly has MRSA leg wound infection. Clinically the patient seemed to have shown clinical improvement on Zosyn and Levaquin pointing towards possible gram negative infection. Hence we will keep her on this antibiotic and hold adding vancomycin, Zyvox could not be added because the patient on SSRI in view of improvement in her white count and resolution of fever. Daughter present at bedside. Questions were answered. MMODL / IJN: [id number] / CARIDAD
[2018-08-03] MEDS: KETOROLAC 30 MG/ML 1 ML VIAL IVP SCH ×3 (05:44→17:58)
[2018-08-03] MEDS: LEVOTHYROXINE 75 MCG TAB PO SCH (05:44)
[2018-08-03] MEDS: SYMBICORT 80-4.5 MCG INHALER INHALATION SCH ×2 (07:09→20:41)
[2018-08-03] MEDS: IPRATROPIUM-ALBUTEROL 3 ML NEB INHALATION SCH ×4 (07:09→20:39)
[2018-08-03] MEDS: oxyCODONE-APAP 7.5-325MG 1 EACH TAB PO PRN (07:15)
[2018-08-03] MEDS: guaiFENesin 600 MG TABLET.ER PO SCH ×2 (07:15→20:53)
[2018-08-03] MEDS: LISINOPRIL 10 MG TAB PO SCH (07:15)
[2018-08-03] MEDS: METOPROLOL TARTRATE 25 MG TAB PO SCH ×2 (07:15→20:53)
[2018-08-03] MEDS: FLUTICASONE 50MCG/SPRAY NASAL 16GM EA NOSTRIL SCH (07:15)
[2018-08-03] MEDS: PANTOPRAZOLE 40 MG TABLET PO SCH ×2 (07:15→17:58)
[2018-08-03] MEDS: CLOPIDOGREL 75 MG TAB PO SCH (07:15)
[2018-08-03] MEDS: amLODIPine 5 MG TAB PO SCH (07:15)
[2018-08-03] MEDS: ATORVASTATIN 20 MG TAB PO SCH (07:15)
[2018-08-03] MEDS: SERTRALINE 100 MG TAB PO SCH (07:18)
[2018-08-03] MEDS: PIPERACILLIN-TAZOBACTAM 3.375 GM in SODIUM CHLORIDE 0.9% 100 ML IVPB SCH ×2 (07:19→15:46)
[2018-08-03] MEDS: ENOXAPARIN 40 MG/0.4 ML SYRINGE SQ SCH (07:19)
[2018-08-03] MEDS: FOLIC ACID 1 MG TAB PO SCH (07:20)
[2018-08-03] MEDS: ISOSORBIDE MONONITRATE ER 60 MG TAB.ER.24H PO SCH (07:21)
--- NOTE | 2018-08-03 09:45 | P.PN ---
Subjective Progress Note Date: 08/03/18 Principal diagnosis: Pneumonia Patient was seen and examined. No acute events overnight. Daughter reports profound improvement in her mental status morning. Patient continues to complain of shortness of breath and cough, unable to cough up. She denies any chest pain or palpitations. No dizziness. No nausea or vomiting. No fever or chills. Daughter reports history of lupus, requesting screening for mother. Review able to obtain hospitalization records from [facility]. Review of reports is as follows. Patient was evaluated for metabolic encephalopathy likely secondary to TIA. She was initially found down with significant facial droop. MRI brain was done which showed no evidence of acute ischemia. Carotid duplex showed less than 50% stenosis of the internal carotid segment bilaterally. CT of the lumbar spine without contrast showed small to moderate hiatal hernia, unremarkable L-spine. MRI of the L-spine showed multilevel DJD without significant stenosis. Echocardiogram showed EF of 55-60% with grade 2 diastolic dysfunction. EEG was also done which showed mild generalized dysfunction. Stress test was also done which showed no evidence of ischemia. Objective - Vital Signs Vital signs: Vital Signs Temp 97.6 F 08/03/18 05:00 Pulse 74 08/03/18 07:24 Resp 18 08/03/18 05:00 BP 122/69 08/03/18 05:00 Pulse Ox 95 08/03/18 07:11 Intake & Output 08/02/18 08/03/18 08/03/18 18:59 06:59 18:59 Intake Total 700 440 Balance 700 440 Intake: Intake, IV Titration 100 Amount Piperacillin-Tazobactam 3 100 .375 gm In Sodium Chloride 0.9% 100 ml @ 25 mls/hr IVPB Q8HR [facility] Rx# :[id number] Oral 600 440 Other: Voiding Method Toilet # Voids 2 1 - Exam General: [non toxic], [no distress], [appears at stated age] Derm: [warm], [dry] Head: [atraumatic], [normocephalic], [symmetric] Eyes: [EOMI], [no lid lag], [anicteric sclera] Mouth: [no lip lesion], [mucus membranes moist] Cardiovascular: [S1S2 reg], [no murmur], [positive DP pulse bilateral] Lungs: [CTA bilateral], [no rhonchi, no rales] , [no accessory muscle use] Abdominal: [soft], [ nontender to palpation], [no guarding], [no appreciable organomegaly] Ext: [no gross muscle atrophy], [no edema], [no contractures], [ecchymosis over left buttock] Neuro: [strength 4 out of 5 in all 4 extremities with sensation intact to touch] Psych: [Difficulty finding words] - Labs CBC & Chem 7: 08/01/18 13:49 07/31/18 19:41 Labs: Microbiology - Last 24 Hours (Table) 07/31/18 19:41 Blood Culture - Preliminary Blood No Growth after 48 hours 08/02/18 13:00 Gram Stain - Preliminary Sputum Assessment and Plan Assessment: Assessment and Plan Acute metabolic encephalopathy likely secondary to pneumonia with 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 CT brain is negative for acute process. Ammonia is within normal limits. UDS positive for TCAs. UA is negative for nitrite or leukocyte esterase. Chest x-ray showing concerns for upper lobe pneumonia. TSH is within normal limits. Ammonia is within normal limits. Plan: Continue IV antibiotics along with supplemental oxygen in the treatment of pneumonia. Fall precautions. Follow PT and OT recommendations. Follow syphilis testing. Patient with leukocytosis of 12.1, febrile on admission with T-max 100.3, tachycardic with heart rate of 99 with + source of infection seen on chest x- ray. UA negative for nitrite or leukocyte esterase. Blood culture negative at 40 hours. Lactic acid negative. ID consulted, recommends discontinuation of vancomycin. Plan: Follow sputum culture. Follow blood culture. Continue IV antibiotics. Tylenol as needed for fever. Follow infectious disease consult. As seen on chest x-ray. Plan: Continue Zosyn IV, levofloxacin by mouth. Management as above. Follow pulmonology consult. Continue Mucinex. Follow swallow eval. Hemoglobin 9.2-8.1, normocytic. Concerns due to hematoma. Plan: Daily CBC. Transfuse if hemoglobin less than 7. Reviewed records from [facility]. MRI brain, echocardiogram, stress test all within normal limits. MRI L-spine within normal limits. EEG showing nonspecific changes. Carotid duplex showing less than 50% bilateral stenosis. Plan: Continue Plavix and Lipitor. Follow PT consult. Not in acute exacerbation. Plan: Continue Symbicort. DuoNeb scheduled and as needed for shortness of breath and wheezing. Continue Singulair. BP 122/69. Plan: Continue metoprolol, lisinopril, isosorbide mononitrate, amlodipine. Monitor vitals, adjust medications as necessary. Plan: Continue Synthroid Plan: Continue Amitriptyline and Seroquel. Patient admitted for altered mental status likely secondary to pneumonia. She has been started on broad-spectrum antibiotics. Cultures are pending. Daughter reports improvement since admission. Patient showing profound weakness and instability when ambulating. Will get PT consult. Patient open towards the idea rehab. Discussed with social work.
[2018-08-03 10:01] LABS: Basophils % (A) 0 %; Eosinophils # (A) 0.6 k/uL (0-0.7); Eosinophils % (A) 5 %; HCT 26.5 % (34.0-46.0); HGB 8.5 gm/dL (11.4-16.0); Hypochromasia Moderate; Lymphocytes # (A) 0.5 k/uL (1.0-4.8); Lymphocytes % (A) 5 %; MCH 30.5 pg (25.0-35.0); MCV 95.4 fL (80.0-100.0); Mean Platelet Volume 7.6; Monocytes # (A) 0.3 k/uL (0-1.0); Monocytes % (A) 3 %; Neutrophils # (A) 8.8 k/uL (1.3-7.7); Neutrophils % (A) 85 %; Platelet Count 252 k/uL (150-450); RBC 2.77 m/uL (3.80-5.40); RDW 15.2 % (11.5-15.5); WBC 10.3 k/uL (3.8-10.6)
[2018-08-03 10:52] LABS: Calcium 8.4 mg/dL (8.4-10.2); Magnesium 1.5 mg/dL (1.6-2.3); Potassium 3.9 mmol/L (3.5-5.1)
[2018-08-03] MEDS ORDERED: Magnesium Replacement Protocol 1 EACH MISC MISCELLANE PRN (11:12)
[2018-08-03] MEDS: MAGNESIUM SULFATE-D5W PMX 1 GM in DEXTROSE/WATER 1 100ML.BAG IVPB SCH ×2 (12:03→13:40)
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
[2018-08-03 18:45] LABS: Appearance,Urine Clear (Clear); Bilirubin,Urine Negative (Negative); Blood,Urine Moderate (Negative); Color,Urine Yellow; Glucose,Urine (UA) Negative (Negative); Ketones,Urine Trace (Negative); Leukocyte Esterase,Urine Negative (Negative); Mucus,Urine Rare /hpf; Nitrite,Urine Negative (Negative); Protein,Urine 1+ (Negative); RBC,Urine 25 /hpf (0-5); Specific Gravity,Urine 1.034 (1.001-1.035); Squamous Epithelial Cell,Urine 4 /hpf (0-4); WBC,Urine 1 /hpf (0-5)
[2018-08-03] MEDS: DOCUSATE 100 MG CAP PO SCH (20:53)
[2018-08-03] MEDS: LEVOFLOXACIN 750 MG TAB PO SCH (20:53)
[2018-08-03] MEDS: MONTELUKAST 10 MG TAB PO SCH (20:53)
[2018-08-03] MEDS: AMITRIPTYLINE HCL 50 MG TAB PO SCH (20:54)
[2018-08-03] MEDS: QUEtiapine 200 MG TAB PO SCH (20:54)
[2018-08-03] MEDS ORDERED: VANCOMYCIN IV PER PHARMACY 1 EACH MISC MISCELLANE PRN (23:08)
--- NOTE | 2018-08-03 23:11 | P.PN ---
Subjective Progress Note Date: 08/03/18 Principal diagnosis: Left upper lobe pneumonia The patient is afebrile today the patient is breathing slightly comfortably the patient continued to have a cough with occasional sputum production no hemoptysis no worsening chest pain no nausea no vomiting no abdominal pain and no diarrhea Objective - Vital Signs Vital signs: Vital Signs Temp 97.6 F 08/03/18 05:00 Pulse 74 08/03/18 07:24 Resp 16 08/03/18 10:49 BP 122/69 08/03/18 05:00 Pulse Ox 93 L 08/03/18 10:49 Intake & Output 08/02/18 08/03/18 08/03/18 18:59 06:59 18:59 Intake Total 700 440 Balance 700 440 Intake: Intake, IV Titration 100 Amount Piperacillin-Tazobactam 3 100 .375 gm In Sodium Chloride 0.9% 100 ml @ 25 mls/hr IVPB Q8HR [facility] Rx# :[id number] Oral 600 440 Other: Voiding Method Toilet # Voids 2 1 - Exam GENERAL DESCRIPTION:[ Patient is awake and alert in no distress] HEENT: [Oral mucosa is dry and no pharyngeal erythema] EYES : [No pallor or scleral icterus] RESPIRATORY SYSTEM: [Unlabored breathing decreased breath sound at the base] CARDIA VASCULAR SYSTEM: [S1-S2 regular rate and rhythm no murmur] GI: [Abdominal soft there's no tenderness no organomegaly] EXTREMITIES: [No edema feet] - Labs CBC & Chem 7: 08/03/18 09:37 08/03/18 09:37 Labs: Abnormal Lab Results - Last 24 Hours (Table) 08/03/18 08/03/18 Range/Units 09:37 09:37 RBC 2.77 L (3.80-5.40) m/uL Hgb 8.5 L (11.4-16.0) gm/dL Hct 26.5 L (34.0-46.0) % Neutrophils # 8.8 H (1.3-7.7) k/uL Lymphocytes # 0.5 L (1.0-4.8) k/uL Chloride 111 H (98-107) mmol/L Carbon Dioxide 21 L (22-30) mmol/L Glucose 103 H (74-99) mg/dL Magnesium 1.5 L (1.6-2.3) mg/dL Microbiology - Last 24 Hours (Table) 07/31/18 19:41 Blood Culture - Preliminary Blood No Growth after 48 hours 08/02/18 13:00 Gram Stain - Preliminary Sputum Assessment and Plan Assessment: 1-patient with left upper lobe pneumonia with a sputum currently showing staph aureus questionable MSSA in view of improvement on Zosyn however underlying MRSA infection not entirely excluded. 2-patient is on SSRI contraindicating the use of Zyvox which could have been ideal antibiotic choice for her (1) Sepsis Current Visit: Yes Status: Acute Code(s): A41.9 - SEPSIS, UNSPECIFIED ORGANISM SNOMED Code(s): 39554181 (2) Nosocomial pneumonia Current Visit: Yes Status: Acute Code(s): J18.9 - PNEUMONIA, UNSPECIFIED ORGANISM; Y95 - NOSOCOMIAL CONDITION SNOMED Code(s): 862624430 Plan: 1-discontinue the Zosyn 2-start the patient vancomycin pharmacy to dose target trough of 15 while watching her kidney for some and Vanco trough closely Time with Patient: Less than 30
[2018-08-04] MEDS ORDERED: VANCOMYCIN 1,500 MG in SODIUM CHLORIDE 0.9% 250 ML IVPB ONE ×2
[2018-08-04] MEDS: KETOROLAC 30 MG/ML 1 ML VIAL IVP SCH ×4 (00:07→17:27)
[2018-08-04] MEDS: LEVOTHYROXINE 75 MCG TAB PO SCH (05:47)
[2018-08-04] MEDS: SYMBICORT 80-4.5 MCG INHALER INHALATION SCH ×2 (07:15→20:15)
[2018-08-04] MEDS: IPRATROPIUM-ALBUTEROL 3 ML NEB INHALATION SCH ×4 (07:15→20:15)
[2018-08-04] MEDS: amLODIPine 5 MG TAB PO SCH (08:57)
[2018-08-04] MEDS: FOLIC ACID 1 MG TAB PO SCH (08:57)
[2018-08-04] MEDS: ATORVASTATIN 20 MG TAB PO SCH (08:57)
[2018-08-04] MEDS: PANTOPRAZOLE 40 MG TABLET PO SCH ×2 (08:57→15:57)
[2018-08-04] MEDS: ENOXAPARIN 40 MG/0.4 ML SYRINGE SQ SCH (08:57)
[2018-08-04] MEDS: CLOPIDOGREL 75 MG TAB PO SCH (08:57)
[2018-08-04] MEDS: METOPROLOL TARTRATE 25 MG TAB PO SCH ×2 (08:58→20:02)
[2018-08-04] MEDS: ISOSORBIDE MONONITRATE ER 60 MG TAB.ER.24H PO SCH (08:58)
[2018-08-04] MEDS: LISINOPRIL 10 MG TAB PO SCH (08:58)
[2018-08-04] MEDS: SERTRALINE 100 MG TAB PO SCH (08:58)
[2018-08-04] MEDS: guaiFENesin 600 MG TABLET.ER PO SCH ×2 (08:58→20:02)
[2018-08-04] MEDS ORDERED: ALBUTEROL NEBULIZED 2.5 MG/3 ML INHALATION STA (11:05)
--- NOTE | 2018-08-04 11:05 | P.PN ---
Subjective Progress Note Date: 08/04/18 Principal diagnosis: Pneumonia Patient seen and examined. No acute events overnight. Sputum culture grows staph aureus preliminary. Daughter reports that patient is slightly improved but feels profoundly short of breath when ambulating and when standing up. She denies any chest pain or dizziness. No nausea or vomiting. No fever or chills. Passed swallow eval. Accepted to [facility] on the leg. Still apprehensive about going to rehab. Objective - Vital Signs Vital signs: Vital Signs Temp 97.8 F 08/04/18 05:00 Pulse 95 08/04/18 08:35 Resp 17 08/04/18 08:35 BP 115/65 08/04/18 05:00 Pulse Ox 93 L 08/04/18 05:00 Intake & Output 08/03/18 08/04/18 08/04/18 18:59 06:59 18:59 Output Total 100 Balance -100 Output: Urine 100 Other: Voiding Method Toilet # Voids 2 1 - Exam General: [non toxic], [no distress], [appears at stated age] Derm: [warm], [dry] Head: [atraumatic], [normocephalic], [symmetric] Eyes: [EOMI], [no lid lag], [anicteric sclera] Mouth: [no lip lesion], [mucus membranes moist] Cardiovascular: [S1S2 reg], [no murmur], [positive DP pulse bilateral] Lungs: [Decreased breath sounds bilaterally with end expiratory wheezing], [no rhonchi, no rales] , [no accessory muscle use] Abdominal: [soft], [ nontender to palpation], [no guarding], [no appreciable organomegaly] Ext: [no gross muscle atrophy], [no edema], [no contractures], [ecchymosis over left buttock] Neuro: [strength 4 out of 5 in all 4 extremities with sensation intact to touch] Psych: [Difficulty finding words] - Labs CBC & Chem 7: 08/03/18 09:37 08/03/18 09:37 Labs: Abnormal Lab Results - Last 24 Hours (Table) 08/03/18 Range/Units 18:22 Urine Protein 1+ H (Negative) Urine Ketones Trace H (Negative) Urine Blood Moderate H (Negative) Urine RBC 25 H (0-5) /hpf Urine Mucus Rare H (None) /hpf Microbiology - Last 24 Hours (Table) 07/31/18 19:41 Blood Culture - Preliminary Blood No Growth after 72 hours 08/02/18 13:00 Gram Stain - Preliminary Sputum Sputum Culture - Preliminary Presumptive Staph aureus Assessment and Plan Assessment: Assessment and Plan Acute metabolic encephalopathy likely secondary to pneumonia with 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 CT brain is negative for acute process. Ammonia is within normal limits. UDS positive for TCAs. UA is negative for nitrite or leukocyte esterase. Chest x-ray showing concerns for upper lobe pneumonia. TSH is within normal limits. Ammonia is within normal limits. SELMA negative and syphilis testing negative. Plan: Continue IV antibiotics along with supplemental oxygen in the treatment of pneumonia. Fall precautions. Follow PT and OT recommendations. Patient with leukocytosis of 12.1, febrile on admission with T-max 100.3, tachycardic with heart rate of 99 with + source of infection seen on chest x- ray. UA negative for nitrite or leukocyte esterase. Blood culture negative at 40 hours. Lactic acid negative. ID consulted, recommends continuing vancomycin as her is being treated for MRSA at home and discontinuing Zosyn. Sputum culture prelim staph aureus. Blood culture negative at 72 hours. Plan: Follow sputum culture. Follow blood culture. Continue IV antibiotics. Tylenol as needed for fever. Follow infectious disease consult. As seen on chest x-ray. Passed swallow evaluation. Plan: Discontinue Zosyn IV, and continue levofloxacin by mouth. Add vancomycin IV. Management as above. Follow pulmonology consult. Continue Mucinex. Hemoglobin 9.2-8.1, normocytic. Concerns due to hematoma. Plan: Daily CBC. Transfuse if hemoglobin less than 7. Reviewed records from [facility]. MRI brain, echocardiogram, stress test all within normal limits. MRI L-spine within normal limits. EEG showing nonspecific changes. Carotid duplex showing less than 50% bilateral stenosis. Plan: Continue Plavix and Lipitor. Follow PT consult. Not in acute exacerbation. Plan: Continue Symbicort. DuoNeb scheduled and as needed for shortness of breath and wheezing. Continue Singulair. BP 115/65. Plan: Continue metoprolol, lisinopril, isosorbide mononitrate, amlodipine. Monitor vitals, adjust medications as necessary. Plan: Continue Synthroid Plan: Continue Amitriptyline and Seroquel. Patient admitted for altered mental status likely secondary to pneumonia. She has been started on broad-spectrum antibiotics. Cultures currently showing staph aureus in sputum. ID and pulmonology on board. Patient showing profound weakness and instability when ambulating. Will get PT consult. Patient open towards the idea rehab. Accepted to [facility] on the [place] when cleared for DC. Discussed with KAILEE.
[2018-08-04] MEDS ORDERED: FUROSEMIDE 10 MG/ML 4 ML VIAL IV STA (12:00)
[2018-08-04] MEDS: FLUTICASONE 50MCG/SPRAY NASAL 16GM EA NOSTRIL SCH (12:12)
[2018-08-04] MEDS: PIPERACILLIN-TAZOBACTAM 3.375 GM in SODIUM CHLORIDE 0.9% 100 ML IVPB SCH ×2 (13:08→20:01)
--- NOTE | 2018-08-04 13:18 | XR ---
EXAMINATION TYPE: XR chest 2V DATE OF EXAM: 08/04/2018 COMPARISON: Prior chest x-ray 08/01/[address] 05/29/2013 HISTORY: Left upper lobe pneumonia TECHNIQUE: Frontal and lateral views of the chest are obtained. FINDINGS: There is worsening airspace disease present. Interstitium is increased. Heart is enlarged. No pneumothorax. There are prominent lung volumes consistent with underlying COPD. Blunting the cost ophrenic angles could be indicative of pleural effusions. IMPRESSION: Correlate for possible congestive heart failure in a patient with pre-existing COPD. Pne umonia not excluded. Follow-up recommended.
[2018-08-04] MEDS: VANCOMYCIN 1,500 MG in SODIUM CHLORIDE 0.9% 250 ML IVPB SCH (15:54)
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
[2018-08-04] MEDS: QUEtiapine 200 MG TAB PO SCH (20:02)
[2018-08-04] MEDS: MONTELUKAST 10 MG TAB PO SCH (20:02)
[2018-08-04] MEDS: AMITRIPTYLINE HCL 50 MG TAB PO SCH (20:02)
[2018-08-04] MEDS: DOCUSATE 100 MG CAP PO SCH (20:02)
[2018-08-04] MEDS: LEVOFLOXACIN 750 MG TAB PO SCH (20:02)
--- NOTE | 2018-08-04 21:59 | P.PN ---
Subjective Progress Note Date: 08/04/18 Principal diagnosis: Left upper lobe pneumonia The patient denies any fever or chills, however the patient is complaining of more shortness of breath, she continued to have some cough but not bringing up any sputum no nausea no vomiting no abdominal pain and no diarrhea Objective - Vital Signs Vital signs: Vital Signs Temp 97.8 F 08/04/18 05:00 Pulse 88 08/04/18 11:13 Resp 17 08/04/18 08:35 BP 115/65 08/04/18 05:00 Pulse Ox 93 L 08/04/18 05:00 Intake & Output 08/03/18 08/04/18 08/04/18 18:59 06:59 18:59 Output Total 100 Balance -100 Output: Urine 100 Other: Voiding Method Toilet # Voids 2 1 - Exam GENERAL DESCRIPTION:[ Patient is awake and alert in no distress] HEENT: [Oral mucosa is dry and no pharyngeal erythema] EYES : [No pallor or scleral icterus] RESPIRATORY SYSTEM: [Unlabored breathing decreased breath sound at the base] CARDIA VASCULAR SYSTEM: [S1-S2 regular rate and rhythm no murmur] GI: [Abdominal soft there's no tenderness no organomegaly] EXTREMITIES: [No edema feet] - Labs CBC & Chem 7: 08/03/18 09:37 08/03/18 09:37 Labs: Abnormal Lab Results - Last 24 Hours (Table) 08/03/18 Range/Units 18:22 Urine Protein 1+ H (Negative) Urine Ketones Trace H (Negative) Urine Blood Moderate H (Negative) Urine RBC 25 H (0-5) /hpf Urine Mucus Rare H (None) /hpf Microbiology - Last 24 Hours (Table) 07/31/18 19:41 Blood Culture - Preliminary Blood No Growth after 72 hours 08/02/18 13:00 Gram Stain - Preliminary Sputum Sputum Culture - Preliminary Presumptive Staph aureus Assessment and Plan Assessment: 1-patient with left upper lobe pneumonia with a sputum culture has been finalized as MRSA and no evidence of gram-negative infection 2-patient is on SSRI contraindicating the use of Zyvox which could have been ideal antibiotic choice for her (1) Sepsis Current Visit: Yes Status: Acute Code(s): A41.9 - SEPSIS, UNSPECIFIED ORGANISM SNOMED Code(s): 01864576 (2) Nosocomial pneumonia Current Visit: Yes Status: Acute Code(s): J18.9 - PNEUMONIA, UNSPECIFIED ORGANISM; Y95 - NOSOCOMIAL CONDITION SNOMED Code(s): 567021939 Plan: 1- the patient will continue on vancomycin pharmacy to dose target trough of 15 while watching her kidney for some and Vanco trough closely, the patient will likely need a PICC line for outpatient IV vancomycin therapy as oral Zyvox is not an option in view of SSRI the patient is on Time with Patient: Less than 30
[2018-08-05] MEDS: KETOROLAC 30 MG/ML 1 ML VIAL IVP SCH ×4 (00:58→16:52)
[2018-08-05] MEDS: PIPERACILLIN-TAZOBACTAM 3.375 GM in SODIUM CHLORIDE 0.9% 100 ML IVPB SCH ×2 (03:47→11:55)
[2018-08-05] MEDS: LEVOTHYROXINE 75 MCG TAB PO SCH (06:12)
--- NOTE | 2018-08-05 07:45 | XR ---
EXAMINATION TYPE: XR chest 2V DATE OF EXAM: 08/05/2018 COMPARISON: August 04, 2018 HISTORY: Shortness of breath TECHNIQUE: Frontal and lateral views of the chest are obtained. FINDINGS: Scattered senescent parenchymal changes noted. Hyperinflation compatible with COPD. Scattered mixed interstitial and alveolar infiltrates persist without significant change. Small effus ions noted. Underlying congestive failure not excluded. Heart size is stable. Mediastinal structures are stable and grossly unremarkable. No evidence for hilar prominence. Degenerative changes dorsal spine. IMPRESSION: 1. Scattered mixed interstitial and alveolar infiltrates persist without significant change. Small ef fusions noted. Underlying congestive failure not excluded.
[2018-08-05] MEDS: ENOXAPARIN 40 MG/0.4 ML SYRINGE SQ SCH (08:01)
[2018-08-05] MEDS: PANTOPRAZOLE 40 MG TABLET PO SCH ×2 (08:02→16:57)
[2018-08-05] MEDS: amLODIPine 5 MG TAB PO SCH (08:02)
[2018-08-05] MEDS: FOLIC ACID 1 MG TAB PO SCH (08:03)
[2018-08-05] MEDS: guaiFENesin 600 MG TABLET.ER PO SCH ×2 (08:03→21:46)
[2018-08-05] MEDS: ISOSORBIDE MONONITRATE ER 60 MG TAB.ER.24H PO SCH (08:03)
[2018-08-05] MEDS: ATORVASTATIN 20 MG TAB PO SCH (08:03)
[2018-08-05] MEDS: FLUTICASONE 50MCG/SPRAY NASAL 16GM EA NOSTRIL SCH (08:03)
[2018-08-05] MEDS: CLOPIDOGREL 75 MG TAB PO SCH (08:03)
[2018-08-05] MEDS: SERTRALINE 100 MG TAB PO SCH (08:04)
[2018-08-05] MEDS: METOPROLOL TARTRATE 25 MG TAB PO SCH ×2 (08:04→21:46)
[2018-08-05] MEDS: LISINOPRIL 10 MG TAB PO SCH (08:04)
[2018-08-05] MEDS: VANCOMYCIN 1,500 MG in SODIUM CHLORIDE 0.9% 250 ML IVPB SCH (08:07)
[2018-08-05] MEDS: IPRATROPIUM-ALBUTEROL 3 ML NEB INHALATION SCH ×4 (09:14→20:34)
[2018-08-05] MEDS: SYMBICORT 80-4.5 MCG INHALER INHALATION SCH ×2 (09:14→20:34)
[2018-08-05 09:20] LABS: Calcium 8.6 mg/dL (8.4-10.2); Potassium 4.4 mmol/L (3.5-5.1)
[2018-08-05] MEDS ORDERED: VANCOMYCIN IV PER PHARMACY 1 EACH MISC MISCELLANE PRN (10:54)
[2018-08-05] MEDS ORDERED: SODIUM CHLORIDE 0.9% 1,000 ML IV SCH (12:00)
[2018-08-05] MEDS: FUROSEMIDE 10 MG/ML 2 ML VIAL IV SCH ×2 (13:09→23:26)
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
--- NOTE | 2018-08-05 15:29 | P.PN ---
Subjective Progress Note Date: 08/05/18 Principal diagnosis: Left upper lobe pneumonia The patient is afebrile however the patient continued complaining of shortness of breath on minimal exertion, the patient continued to have a cough not bringing significant amount of sputum no chest pain had no nausea no vomiting no abdominal pain and no diarrhea Objective - Vital Signs Vital signs: Vital Signs Temp 97.1 F L 08/05/18 11:33 Pulse 91 08/05/18 11:33 Resp 20 08/05/18 11:33 BP 133/81 08/05/18 11:33 Pulse Ox 94 L 08/05/18 11:33 Intake & Output 08/04/18 08/05/18 08/05/18 18:59 06:59 18:59 Intake Total 240 Output Total 100 Balance 140 Intake: Oral 240 Output: Urine 100 Other: Voiding Method Toilet Bedside Commode Bedside Commode # Voids 3 2 - Exam GENERAL DESCRIPTION:[ Patient is awake and alert in no distress] HEENT: [Oral mucosa is dry and no pharyngeal erythema] EYES : [No pallor or scleral icterus] RESPIRATORY SYSTEM: [Unlabored breathing decreased breath sound at the base] CARDIA VASCULAR SYSTEM: [S1-S2 regular rate and rhythm no murmur] GI: [Abdominal soft there's no tenderness no organomegaly] EXTREMITIES: [No edema feet] - Labs CBC & Chem 7: 08/03/18 09:37 08/05/18 08:32 Labs: Abnormal Lab Results - Last 24 Hours (Table) 08/05/18 Range/Units 08:32 Chloride 111 H (98-107) mmol/L Carbon Dioxide 16 L (22-30) mmol/L BUN 23 H (7-17) mg/dL Creatinine 2.38 H (0.52-1.04) mg/dL Microbiology - Last 24 Hours (Table) 08/02/18 13:00 Gram Stain - Final Sputum Sputum Culture - Final Methicillin resist S. aureus Inga albicans 07/31/18 19:41 Blood Culture - Preliminary Blood No Growth after 96 hours Assessment and Plan Assessment: 1-patient with left upper lobe pneumonia with a sputum culture has been finalized as MRSA and no evidence of gram-negative infection 2-patient is on SSRI contraindicating the use of Zyvox which could have been ideal antibiotic choice for her 3-patient now developing renal failure with significant jump in creatinine (1) Sepsis Current Visit: Yes Status: Acute Code(s): A41.9 - SEPSIS, UNSPECIFIED ORGANISM SNOMED Code(s): 39822897 (2) Nosocomial pneumonia Current Visit: Yes Status: Acute Code(s): J18.9 - PNEUMONIA, UNSPECIFIED ORGANISM; Y95 - NOSOCOMIAL CONDITION SNOMED Code(s): 549150163 Plan: 1- discontinue the vancomycin in view of significant and creatinine , oral Zyvox is not an option in view of SSRI the patient is on 2-we will start the patient on Teflaro 300 mg twice a day and watch her clinical course closely this was discussed in detail with the pharmacist Time with Patient: Less than 30
[2018-08-05] MEDS ORDERED: FUROSEMIDE 10 MG/ML 4 ML VIAL IV STA (20:47)
--- NOTE | 2018-08-05 21:28 | XR ---
EXAMINATION TYPE: XR chest 1V DATE OF EXAM: 08/05/2018 CLINICAL HISTORY: Difficulty breathing progress study. TECHNIQUE: Single AP portable semiupright view of the chest is obtained. COMPARISON: Chest x-ray from earlier today and older studies. FINDINGS: Cardiomegaly is redemonstrated. Reticular interstitial prominence bilaterally is again see n with increased opacity throughout the left lung most prominent in the periphery of the right lung r edemonstrated. There is persistent small right pleural effusion. No pneumothorax is evident bilateral ly. Osseous structures are intact. IMPRESSION: Overall stable findings, cardiomegaly with chronic parenchymal changes and diffuse left lung with multifocal right lung edema and/or infiltrates. Stable small right pleural effusion. No ne w infiltrate is seen.
[2018-08-05] MEDS ORDERED: LORazepam 2 MG/ML INJ IV STA (21:36)
[2018-08-05] MEDS: DOCUSATE 100 MG CAP PO SCH (21:45)
[2018-08-05] MEDS: QUEtiapine 200 MG TAB PO SCH (21:45)
[2018-08-05] MEDS: AMITRIPTYLINE HCL 50 MG TAB PO SCH (21:45)
[2018-08-05] MEDS: MONTELUKAST 10 MG TAB PO SCH (21:46)
[2018-08-05] MEDS: CEFTAROLINE FOSAMIL IVPB SCH (22:04)
[2018-08-05] MEDS: SODIUM CHLORIDE 0.9% IVPB SCH (22:04)
[2018-08-05 22:51] LABS: ABG Base Excess -11.6 mmol/L; ABG HCO3 15 mmol/L (21-25); ABG Oxygen Saturation 92.1 % (94-97); ABG PCO2 32 mmHg (35-45); ABG PH 7.28 (7.35-7.45); ABG PO2 71 mmHg (83-108); ABG TCO2 16 mmol/L (19-24)
[2018-08-05 23:06] LABS: Basophils % (A) 0 %; Eosinophils # (A) 0.4 k/uL (0-0.7); Eosinophils % (A) 3 %; HCT 24.8 % (34.0-46.0); HGB 7.7 gm/dL (11.4-16.0); Hypochromasia Marked; Lymphocytes # (A) 0.5 k/uL (1.0-4.8); Lymphocytes % (A) 4 %; MCH 29.7 pg (25.0-35.0); MCHC 31.2 g/dL (31.0-37.0); MCV 95.1 fL (80.0-100.0); Mean Platelet Volume 7.2; Monocytes # (A) 0.2 k/uL (0-1.0); Monocytes % (A) 2 %; Neutrophils # (A) 11.3 k/uL (1.3-7.7); Neutrophils % (A) 90 %; Platelet Count 244 k/uL (150-450); RBC 2.61 m/uL (3.80-5.40); RDW 15.7 % (11.5-15.5); WBC 12.5 k/uL (3.8-10.6)
[2018-08-05 23:27] LABS: Albumin 2.7 g/dL (3.5-5.0); Calcium 8.5 mg/dL (8.4-10.2); Magnesium 1.7 mg/dL (1.6-2.3); Phosphorus 4.8 mg/dL (2.5-4.5); Potassium 4.1 mmol/L (3.5-5.1); Total Bilirubin 0.8 mg/dL (0.2-1.3); Total Protein 5.9 g/dL (6.3-8.2)
[2018-08-05] MEDS ORDERED: NALOXONE 0.4 MG/ML 1 ML VIAL IV PRN (23:43)
[2018-08-06] MEDS ORDERED: HEPARIN SODIUM,PORCINE 5,000 UNIT/ML 1 ML VIAL SQ SCH
[2018-08-06] MEDS ORDERED: PIPERACILLIN-TAZOBACTAM 3.375 GM in SODIUM CHLORIDE 0.9% 100 ML IVPB SCH ×2
[2018-08-06] MEDS ORDERED: CHLORHEXIDINE GLUCONATE 15 ML CUP MUCOUS MEM ONE (00:40)
[2018-08-06] MEDS ORDERED: SODIUM CHLORIDE 0.9% 2,000 ML IV ONE (01:07)
[2018-08-06] MEDS ORDERED: FUROSEMIDE 10 MG/ML 10 ML VIAL IV STA (01:07)
[2018-08-06] MEDS: DEXTROSE 5% IN WATER 1,000 ML with SODIUM BICARB (1 MEQ/ML) 150 ML IV SCH ×3 (01:10→23:24)
[2018-08-06 01:15] LABS: Glucose,Whole Blood 160 mg/dL (75-99)
[2018-08-06 01:36] LABS: ABG Base Excess -14.6 mmol/L; ABG HCO3 15 mmol/L (21-25); ABG Oxygen Saturation 99.2 % (94-97); ABG PCO2 47 mmHg (35-45); ABG PO2 210 mmHg (83-108); ABG TCO2 16 mmol/L (19-24)
[2018-08-06 01:38] LABS: ABG PH 7.11 (7.35-7.45)
--- NOTE | 2018-08-06 01:42 | XR ---
EXAM: XR Chest, 1 View CLINICAL HISTORY: ITS.REASON XR Reason: line placement post intubation TECHNIQUE: Frontal view of the chest. COMPARISON: Earlier same date. FINDINGS: Lung apices clipped. Tip of endotracheal tube is low just above the rebeca. Retraction by about 3 cm would result in more ideal positioning. Tip of enteric tube near GE junction. Advancement of enteric tube by about [address] the distal enteric tube including the proximal side port within stomach. Cardiomegaly, bilateral lung opacities, right pleural effusion and remainder of exam appear unchanged allowing for differences in technique. IMPRESSION: Tip of endotracheal tube is low just above the rebeca. Retraction by about 3 cm would result in more ideal positioning. Tip of enteric tube near GE junction. Advancement of enteric tube by about [address] the distal enteric tube including the proximal side port within stomach. <MYCVCSECTION> Critical Value Communications 08/06/18 01:59 Verify Receipt with Nurse Verified receipt with Nurse Ontiveros in ICU on 08/06 01:59 (-04:00)
[2018-08-06] MEDS ORDERED: SODIUM BICARB 8.4% 50 ML SYR (1 MEQ/ML) IV STA (01:43)
[2018-08-06] MEDS ORDERED: DEXTROSE 5% IN WATER 1,000 ML with SODIUM BICARB (1 MEQ/ML) 100 ML IV SCH (02:00)
[2018-08-06] MEDS: NOREPINEPHRINE 4 MG in SODIUM CHLORIDE 0.9% 250 ML IV SCH ×8 (02:00→21:53)
[2018-08-06 02:17] LABS: Basophils % (A) 0 %; Eosinophils # (A) 0.2 k/uL (0-0.7); Eosinophils % (A) 1 %; HCT 23.3 % (34.0-46.0); Hypochromasia Marked; Lymphocytes # (A) 0.4 k/uL (1.0-4.8); Lymphocytes % (A) 3 %; MCH 29.3 pg (25.0-35.0); MCHC 30.1 g/dL (31.0-37.0); MCV 97.2 fL (80.0-100.0); Mean Platelet Volume 7.9; Monocytes # (A) 0.3 k/uL (0-1.0); Monocytes % (A) 2 %; Neutrophils # (A) 12.8 k/uL (1.3-7.7); Neutrophils % (A) 93 %; Platelet Count 226 k/uL (150-450); RDW 15.6 % (11.5-15.5); WBC 13.7 k/uL (3.8-10.6)
[2018-08-06 02:25] LABS: Albumin 2.2 g/dL (3.5-5.0); Calcium 7.7 mg/dL (8.4-10.2); Magnesium 1.7 mg/dL (1.6-2.3); Phosphorus 6.8 mg/dL (2.5-4.5); Potassium 4.6 mmol/L (3.5-5.1); Total Bilirubin 0.9 mg/dL (0.2-1.3)
--- NOTE | 2018-08-06 02:38 | P.PN ---
Progress Note - Text Progress Note Date: 08/06/18 Notified of CODE BLUE called by nursing, as a patient had a cardiac arrest, CPR was initiated patient received 2 doses of epinephrine the patient was noted to have PEA (see CODE BLUE sheet) subsequent ROSC after approximately 10 minutes. Constitutional: Intubated receiving manual bagging Eyes: Anicteric sclerae, moist conjunctiva, no lid-lag, areflexic pupils ENMT: NC/AT,Oropharynx clear, no erythema, exudates Neck:Supple, FROM, no masses, or JVD, No carotid bruits; No thyromegaly Lungs: Diminished in the bases coarse with bibasilar crackles Cardiovascular: Heart regular in rate and rhythm, No murmurs, gallops, or rubs no peripheral edema Abdominal: Soft Nontender, nom distended, no guarding, no rebound or rigidity, Normoactive bowel sounds No hepatomegaly, No splenomegaly, No palpable mass No abdominal wall hernia noted Skin: Normal temperature, tone, texture, turgor, No induration No subcutaneous nodules, No rash, lesions, No ulcers Extremities:No digital cyanosis No clubbing, Pedal pulses intact and symmetrical Radial pulses intact and symmetrical Normal gait and station, No calf tenderness Neuro: GCS of 3, Assessment and plan Acute respiratory failure with hypoxemia secondary to Sepsis and pneumonia with subsequent cardiac arrest status post CPR/ ACLS for approx 90 minutes withv ROSC * CXR indicating cardiomegaly with multifocal right lung edema and infiltrates with small pleural effusions * Patient intubated receiving bag mask ventilation we'll transfer to ICU to be monitored closely with mechanical ventilation orders per pulmonary team * Continue antibiotics with Teflaro Acute kidney injury with Metabolic acidosis secondary to sepsis * Contacted on-call supervisor mechanic boilermaking Dr Lou patient started on D5W with Sodium Bicarb * Continue IV fluids Family contacted by nursing notified of change in status * Patient critical
[2018-08-06] MEDS: KETOROLAC 30 MG/ML 1 ML VIAL IVP SCH ×2 (02:59→08:25)
[2018-08-06] MEDS ORDERED: SODIUM BICARB 8.4% 50 ML SYR (1 MEQ/ML) ONE (03:33)
[2018-08-06] MEDS ORDERED: EPINEPHrine 10 ML SYRINGE (0.1 MG/ML) ONE (03:33)
--- NOTE | 2018-08-06 04:24 | XR ---
EXAM: XR Chest, 1 View CLINICAL HISTORY: ITS.REASON XR Reason: Tube placement TECHNIQUE: Frontal view of the chest. COMPARISON: Earlier same date FINDINGS/IMPRESSION: Tip of endotracheal tube is now well-positioned above the rebeca level of superior medial clavicles. The enteric tube tip is high with tip at the lower thorax. Advancement of enteric tube by about [address] the proximal side port within the stomach. Question of some increasing bilateral lung opacities example upper lobes/perihilar regions. No other significant interval change allowing for differences in technique.
[2018-08-06 04:57] LABS: ABG Base Excess -14.7 mmol/L; ABG HCO3 16 mmol/L (21-25); ABG Oxygen Saturation 86.2 % (94-97); ABG PCO2 55 mmHg (35-45); ABG PO2 72 mmHg (83-108); ABG TCO2 17 mmol/L (19-24)
[2018-08-06 04:59] LABS: ABG PH 7.06 (7.35-7.45)
[2018-08-06 05:27] LABS: Appearance,Urine Cloudy (Clear); Bilirubin,Urine Negative (Negative); Blood,Urine Small (Negative); Color,Urine Light Yellow; Glucose,Urine (UA) Negative (Negative); Ketones,Urine Negative (Negative); Leukocyte Esterase,Urine Negative (Negative); Nitrite,Urine Negative (Negative); PH, Urine 5.5 (5.0-8.0); Protein,Urine 1+ (Negative); RBC,Urine 2 /hpf (0-5); Specific Gravity,Urine 1.011 (1.001-1.035); Squamous Epithelial Cell,Urine 1 /hpf (0-4); Urobilinogen,Urine <2.0 mg/dL (<2.0)
[2018-08-06 05:47] LABS: Creatine Kinase MB 1.6 ng/mL (0.0-2.4)
[2018-08-06 05:58] LABS: Basophils % (A) 0 %; Eosinophils # (A) 0.1 k/uL (0-0.7); Eosinophils % (A) 1 %; HCT 24.9 % (34.0-46.0); HGB 7.5 gm/dL (11.4-16.0); Hypochromasia Marked; Lymphocytes # (A) 0.4 k/uL (1.0-4.8); Lymphocytes % (A) 2 %; MCH 29.3 pg (25.0-35.0); MCHC 29.9 g/dL (31.0-37.0); MCV 97.9 fL (80.0-100.0); Macrocytosis Slight; Mean Platelet Volume 7.8; Monocytes # (A) 0.5 k/uL (0-1.0); Monocytes % (A) 3 %; Neutrophils # (A) 16.3 k/uL (1.3-7.7); Neutrophils % (A) 93 %; Platelet Count 266 k/uL (150-450); RBC 2.55 m/uL (3.80-5.40); RDW 15.7 % (11.5-15.5); WBC 17.5 k/uL (3.8-10.6)
[2018-08-06 06:09] LABS: Calcium 7.4 mg/dL (8.4-10.2); Magnesium 1.7 mg/dL (1.6-2.3); Phosphorus 6.8 mg/dL (2.5-4.5); Potassium 4.5 mmol/L (3.5-5.1)
[2018-08-06 06:10] LABS: INR 1.7 (<1.2); Partial Thromboplastin Time 27.2 sec (22.0-30.0); Prothrombin Time 16.6 sec (9.0-12.0)
[2018-08-06 06:13] LABS: Vancomycin,Random 32.2 ug/mL
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
[2018-08-06] MEDS: PROPOFOL 1,000 MG in EMPTY BAG 1 BAG IV SCH ×5 (06:46→22:30)
[2018-08-06] MEDS: LEVOTHYROXINE 75 MCG TAB PO SCH (08:24)
[2018-08-06] MEDS: PANTOPRAZOLE 40 MG TABLET PO SCH (08:25)
[2018-08-06] MEDS: CEFTAROLINE FOSAMIL IVPB SCH ×2 (08:47→22:39)
[2018-08-06] MEDS: SODIUM CHLORIDE 0.9% IVPB SCH ×2 (08:47→22:39)
[2018-08-06] MEDS: IPRATROPIUM-ALBUTEROL 3 ML NEB INHALATION SCH ×4 (08:56→19:24)
[2018-08-06] MEDS: SYMBICORT 80-4.5 MCG INHALER INHALATION SCH ×2 (08:56→19:20)
[2018-08-06] MEDS ORDERED: ENOXAPARIN 30 MG/0.3 ML SYRINGE SQ SCH (09:00)
[2018-08-06] MEDS ORDERED: CISATRACURIUM 2 MG/ML 5 ML VIAL IV ONE (09:02)
--- NOTE | 2018-08-06 09:37 | P.PN ---
Subjective Progress Note Date: 08/06/18 Principal diagnosis: Acute hypoxic respiratory failure Patient was seen and examined. Respiratory distress noted overnight, patient pulled NC, hypoxic into the 80s. Pulmonology recommended transfer to ICU. CODE [place] was called for PEA. Return of spontaneous circulation achieved in 10 minutes. Patient was intubated at that time. PEEP at 5. FiO2 at 75. Respiratory rate set at 28. Tidal volume of 500. ABG this morning shows pH of 7.06, pCO2 of 55, bicarbonate of 16. Lactic acid elevated at 4.4. Currently on Levophed at 0.4 mics per kilo per minute. Objective - Vital Signs Vital signs: Vital Signs Temp 98.6 F 08/06/18 05:00 Pulse 106 H 08/06/18 07:00 Resp 32 H 08/06/18 07:00 BP 120/62 08/06/18 07:00 Pulse Ox 93 L 08/06/18 07:00 Intake & Output 08/05/18 08/06/18 08/06/18 18:59 06:59 18:59 Intake Total 740 2656.102 158.485 Output Total 400 195 5 Balance 340 2461.102 153.485 Weight 84.141 kg 83 kg Intake: IV 2600 100 Dextrose 5% in Water 1, 600 100 000 ml @ 100 mls/hr IV . Q11H [facility] with Sodium Bicarb (1 Meq/ml) 100 ml Rx#:[id number] Sodium Chloride 0.9% 2, 2000 000 ml @ 999 mls/hr IV . Q2H1M [facility] Rx#:[id number] Intake, IV Titration 500 56.102 58.485 Amount Norepinephrine 4 mg In 56.102 52.094 Sodium Chloride 0.9% 250 ml @ 0.05 MCG/KG/MIN 16. 029 mls/hr IV .[id number] [facility] Rx#:[id number] Piperacillin-Tazobactam 3 100 .375 gm In Sodium Chloride 0.9% 100 ml @ 25 mls/hr IVPB Q8H [facility] Rx#: [id number] Propofol 1,000 mg In 6.391 Empty Bag 1 bag @ Titrate IV .Q0M [facility] Rx#: [id number] Sodium Chloride 0.9% 1, 150 000 ml @ 75 mls/hr IV . [id number] [facility] Rx#:[id number] Vancomycin 1,500 mg In 250 Sodium Chloride 0.9% 250 ml @ 125 mls/hr IVPB Q16H [facility] Rx#:[id number] Oral 240 Output: Urine 400 195 5 Other: Voiding Method Bedside Commode Indwelling Catheter # Voids 2 ABP, PAP, CO, CI - Last Documented Arterial Blood Pressure 74/51 - Exam General: [non toxic], [intubated on full vent support], [appears at stated age] Derm: [warm], [dry] Head: [atraumatic], [normocephalic], [symmetric] Eyes: [EOMI], [no lid lag], [anicteric sclera] Mouth: [no lip lesion], [mucus membranes moist] Cardiovascular: [S1S2 reg], [tachycardia], [positive DP pulse bilateral] Lungs: [Decreased breath sounds bilaterally with bibasilar crackles], [no rhonchi, no rales] , [no accessory muscle use] Abdominal: [soft], [ nontender to palpation], [no guarding], [no appreciable organomegaly] Ext: [no gross muscle atrophy], [no edema], [no contractures], [ecchymosis over left buttock] Neuro: [strength 4 out of 5 in all 4 extremities with sensation intact to touch] - Labs CBC & Chem 7: 08/06/18 05:25 08/06/18 05:25 Labs: Abnormal Lab Results - Last 24 Hours (Table) 08/05/18 08/05/18 08/05/18 Range/Units 08:32 22:35 22:50 WBC 12.5 H (3.8-10.6) k/uL RBC 2.61 L (3.80-5.40) m/uL Hgb 7.7 L (11.4-16.0) gm/dL Hct 24.8 L (34.0-46.0) % MCHC (31.0-37.0) g/dL RDW 15.7 H (11.5-15.5) % Neutrophils # 11.3 H (1.3-7.7) k/uL Lymphocytes # 0.5 L (1.0-4.8) k/uL PT (9.0-12.0) sec INR (<1.2) D-Dimer (<0.60) mg/L FEU ABG pH 7.28 L (7.35-7.45) ABG pCO2 32 L (35-45) mmHg ABG pO2 71 L (83-108) mmHg ABG HCO3 15 L (21-25) mmol/L ABG Total CO2 16 L (19-24) mmol/L ABG O2 Saturation 92.1 L (94-97) % Chloride 111 H (98-107) mmol/L Carbon Dioxide 16 L (22-30) mmol/L BUN 23 H (7-17) mg/dL Creatinine 2.38 H (0.52-1.04) mg/dL Glucose (74-99) mg/dL POC Glucose (mg/dL) (75-99) mg/dL Plasma Lactic Acid Jose (0.7-2.0) mmol/L Calcium (8.4-10.2) mg/dL Phosphorus (2.5-4.5) mg/dL AST (14-36) U/L Alkaline Phosphatase (38-126) U/L Total Protein (6.3-8.2) g/dL Albumin (3.5-5.0) g/dL Urine Appearance (Clear) Urine Protein (Negative) Urine Blood (Negative) 08/05/18 08/06/18 08/06/18 Range/Units 22:50 01:00 01:20 WBC (3.8-10.6) k/uL RBC (3.80-5.40) m/uL Hgb (11.4-16.0) gm/dL Hct (34.0-46.0) % MCHC (31.0-37.0) g/dL RDW (11.5-15.5) % Neutrophils # (1.3-7.7) k/uL Lymphocytes # (1.0-4.8) k/uL PT (9.0-12.0) sec INR (<1.2) D-Dimer (<0.60) mg/L FEU ABG pH (7.35-7.45) ABG pCO2 (35-45) mmHg ABG pO2 (83-108) mmHg ABG HCO3 (21-25) mmol/L ABG Total CO2 (19-24) mmol/L ABG O2 Saturation (94-97) % Chloride 111 H (98-107) mmol/L Carbon Dioxide 14 L (22-30) mmol/L BUN 26 H (7-17) mg/dL Creatinine 2.92 H (0.52-1.04) mg/dL Glucose (74-99) mg/dL POC Glucose (mg/dL) 160 H (75-99) mg/dL Plasma Lactic Acid Jose 4.2 H* (0.7-2.0) mmol/L Calcium (8.4-10.2) mg/dL Phosphorus 4.8 H (2.5-4.5) mg/dL AST 46 H (14-36) U/L Alkaline Phosphatase 190 H (38-126) U/L Total Protein 5.9 L (6.3-8.2) g/dL Albumin 2.7 L (3.5-5.0) g/dL Urine Appearance (Clear) Urine Protein (Negative) Urine Blood (Negative) 08/06/18 08/06/18 08/06/18 Range/Units 01:32 01:50 01:50 WBC 13.7 H (3.8-10.6) k/uL RBC 2.40 L (3.80-5.40) m/uL Hgb 7.0 L (11.4-16.0) gm/dL Hct 23.3 L (34.0-46.0) % MCHC 30.1 L (31.0-37.0) g/dL RDW 15.6 H (11.5-15.5) % Neutrophils # 12.8 H (1.3-7.7) k/uL Lymphocytes # 0.4 L (1.0-4.8) k/uL PT (9.0-12.0) sec INR (<1.2) D-Dimer (<0.60) mg/L FEU ABG pH 7.11 L* (7.35-7.45) ABG pCO2 47 H (35-45) mmHg ABG pO2 210 H (83-108) mmHg ABG HCO3 15 L (21-25) mmol/L ABG Total CO2 16 L (19-24) mmol/L ABG O2 Saturation 99.2 H (94-97) % Chloride 110 H (98-107) mmol/L Carbon Dioxide 16 L (22-30) mmol/L BUN 27 H (7-17) mg/dL Creatinine 2.85 H (0.52-1.04) mg/dL Glucose 129 H (74-99) mg/dL POC Glucose (mg/dL) (75-99) mg/dL Plasma Lactic Acid Jose (0.7-2.0) mmol/L Calcium 7.7 L (8.4-10.2) mg/dL Phosphorus 6.8 H (2.5-4.5) mg/dL AST 99 H (14-36) U/L Alkaline Phosphatase 182 H (38-126) U/L Total Protein 5.0 L (6.3-8.2) g/dL Albumin 2.2 L (3.5-5.0) g/dL Urine Appearance (Clear) Urine Protein (Negative) Urine Blood (Negative) 08/06/18 08/06/18 08/06/18 Range/Units 01:50 04:53 05:00 WBC (3.8-10.6) k/uL RBC (3.80-5.40) m/uL Hgb (11.4-16.0) gm/dL Hct (34.0-46.0) % MCHC (31.0-37.0) g/dL RDW (11.5-15.5) % Neutrophils # (1.3-7.7) k/uL Lymphocytes # (1.0-4.8) k/uL PT (9.0-12.0) sec INR (<1.2) D-Dimer 28.85 H (<0.60) mg/L FEU ABG pH 7.06 L* (7.35-7.45) ABG pCO2 55 H (35-45) mmHg ABG pO2 72 L (83-108) mmHg ABG HCO3 16 L (21-25) mmol/L ABG Total CO2 17 L (19-24) mmol/L ABG O2 Saturation 86.2 L (94-97) % Chloride (98-107) mmol/L Carbon Dioxide (22-30) mmol/L BUN (7-17) mg/dL Creatinine (0.52-1.04) mg/dL Glucose (74-99) mg/dL POC Glucose (mg/dL) (75-99) mg/dL Plasma Lactic Acid Jose (0.7-2.0) mmol/L Calcium (8.4-10.2) mg/dL Phosphorus (2.5-4.5) mg/dL AST (14-36) U/L Alkaline Phosphatase (38-126) U/L Total Protein (6.3-8.2) g/dL Albumin (3.5-5.0) g/dL Urine Appearance Cloudy H (Clear) Urine Protein 1+ H (Negative) Urine Blood Small H (Negative) 08/06/18 08/06/18 08/06/18 Range/Units 05:25 05:25 05:25 WBC 17.5 H (3.8-10.6) k/uL RBC 2.55 L (3.80-5.40) m/uL Hgb 7.5 L (11.4-16.0) gm/dL Hct 24.9 L (34.0-46.0) % MCHC 29.9 L (31.0-37.0) g/dL RDW 15.7 H (11.5-15.5) % Neutrophils # 16.3 H (1.3-7.7) k/uL Lymphocytes # 0.4 L (1.0-4.8) k/uL PT 16.6 H (9.0-12.0) sec INR 1.7 H (<1.2) D-Dimer (<0.60) mg/L FEU ABG pH (7.35-7.45) ABG pCO2 (35-45) mmHg ABG pO2 (83-108) mmHg ABG HCO3 (21-25) mmol/L ABG Total CO2 (19-24) mmol/L ABG O2 Saturation (94-97) % Chloride 110 H (98-107) mmol/L Carbon Dioxide 16 L (22-30) mmol/L BUN 25 H (7-17) mg/dL Creatinine 2.92 H (0.52-1.04) mg/dL Glucose 109 H (74-99) mg/dL POC Glucose (mg/dL) (75-99) mg/dL Plasma Lactic Acid Jose (0.7-2.0) mmol/L Calcium 7.4 L (8.4-10.2) mg/dL Phosphorus 6.8 H (2.5-4.5) mg/dL AST (14-36) U/L Alkaline Phosphatase (38-126) U/L Total Protein (6.3-8.2) g/dL Albumin (3.5-5.0) g/dL Urine Appearance (Clear) Urine Protein (Negative) Urine Blood (Negative) 08/06/18 Range/Units 05:25 WBC (3.8-10.6) k/uL RBC (3.80-5.40) m/uL Hgb (11.4-16.0) gm/dL Hct (34.0-46.0) % MCHC (31.0-37.0) g/dL RDW (11.5-15.5) % Neutrophils # (1.3-7.7) k/uL Lymphocytes # (1.0-4.8) k/uL PT (9.0-12.0) sec INR (<1.2) D-Dimer (<0.60) mg/L FEU ABG pH (7.35-7.45) ABG pCO2 (35-45) mmHg ABG pO2 (83-108) mmHg ABG HCO3 (21-25) mmol/L ABG Total CO2 (19-24) mmol/L ABG O2 Saturation (94-97) % Chloride (98-107) mmol/L Carbon Dioxide (22-30) mmol/L BUN (7-17) mg/dL Creatinine (0.52-1.04) mg/dL Glucose (74-99) mg/dL POC Glucose (mg/dL) (75-99) mg/dL Plasma Lactic Acid Jose 4.4 H* (0.7-2.0) mmol/L Calcium (8.4-10.2) mg/dL Phosphorus (2.5-4.5) mg/dL AST (14-36) U/L Alkaline Phosphatase (38-126) U/L Total Protein (6.3-8.2) g/dL Albumin (3.5-5.0) g/dL Urine Appearance (Clear) Urine Protein (Negative) Urine Blood (Negative) Microbiology - Last 24 Hours (Table) 07/31/18 19:41 Blood Culture - Preliminary Blood No Growth after 120 hours 08/02/18 13:00 Gram Stain - Final Sputum Sputum Culture - Final Methicillin resist S. aureus Inga albicans Assessment and Plan Assessment: Assessment and Plan 1. Acute hypoxic respiratory failure, likely secondary to MRSA pneumonia and possible ARDS along with acute on chronic diastolic heart failure 2. Possible ARDS 3. Sepsis, likely secondary to MRSA pneumonia 4. Healthcare associated pneumonia, MRSA 5. Acute on chronic diastolic heart failure 6. Hyperchloremic metabolic acidosis 7. Acute kidney injury 8. 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 Anemia 10. History of CVA 11. COPD 12. Hypertension 13. Hypothyroidism 14. Depression 15. DVT and GI Prophylaxis 1. Worsening respiratory status overnight. CODE BLUE called for PEA, ROSC in 10 minutes. Chest x-ray showing cardiomegaly with parenchymal changes and diffuse left lung with multifocal right lung edema and infiltrates, Small right effusion. ABG showing picture of metabolic acidosis along with respiratory acidosis. PaO2 over FiO2 is 120. Plan: Full ventilator support, limit tidal volume to 6 mL/kg with adequate high PEEP. Full pressor support to maintain MAP > 65. Continue IV antibiotics in the treatment of MRSA pneumonia. Lasix held as per pulmonology recommendations. Discussed with Dr. Sotomayor, plans for bronchoscopy today. Follow pulmonology recommendations. Follow cardiology recommendations. ID is onboard. 2. Plan: Management as above. 3. Patient with leukocytosis of 12.1, febrile on admission with T-max 100.3, tachycardic with heart rate of 99 with + source of infection seen on chest x- ray. UA negative for nitrite or leukocyte esterase. Blood culture negative at 120 hours. Lactic acid 4.4 this morning likely due to CODE BLUE. ID consulted, recommends continuing vancomycin as her is being treated for MRSA at home and discontinuing Zosyn. Sputum culture positive for MRSA. Plan: Continue D5 100 mL/h. Follow blood culture. Continue IV antibiotics. Tylenol as needed for fever. Follow infectious disease consult. 4. As seen on chest x-ray. Passed swallow evaluation. Sputum culture positive for MRSA. Blood cultures negative at 120 hours. Plan: Continue Ceftaroline IV. Management as above. Follow pulmonology consult. Continue Mucinex. 5. Echocardiogram recently performed [facility] shows EF 55-60% with grade 2 diastolic dysfunction. Chest x-ray showing signs of fluid overload. Plan: Plans to hold Lasix as per pulmonology recommendations. Cardiology consulted, recommends DC metoprolol and amlodipine and obtain Echo. Keep Mag > 2 and K > 4. Daily weights. Intake and outake. Follow-up echocardiogram. 6. Chloride 110, bicarbonate of 16. Possibly due to IVF infused. Also with worsening renal dysfunction. Lactic acid elevated at 4.4. Given 1 amp of sodium bicarb. Plan: Continue D5 at 100 mL/h. Daily BMP. Repeat lactic acid. Follow nephrology recommendations. 7. BUN 25, creatinine 2.92, slightly worsening. Likely secondary to vancomycin, Lasix use, sepsis. Plan: Avoid nephrotoxins. Continue D5 at 100 mL per. Daily BMP. Discussed with Nephrology, plans for autoimmune workup. 8. Likely secondary to pneumonia. CT brain is negative for acute process. Ammonia is within normal limits. UDS positive for TCAs. UA is negative for nitrite or leukocyte esterase. Chest x-ray showing concerns for upper lobe pneumonia. TSH is within normal limits. Ammonia is within normal limits. SELMA negative and syphilis testing negative. Plan: Continue IV antibiotics along with supplemental oxygen in the treatment of MRSA pneumonia. Fall precautions. Follow PT and OT recommendations. 9. Hemoglobin 9.2-8.1-8.5-7.5, normocytic. Concerns due to hematoma. Plan: Daily CBC. Transfuse if hemoglobin less than 7. 10. Reviewed records from [facility]. MRI brain, echocardiogram, stress test all within normal limits. MRI L-spine within normal limits. EEG showing nonspecific changes. Carotid duplex showing less than 50% bilateral stenosis. Plan: Continue Plavix and Lipitor. Follow PT consult. 11. Not in acute exacerbation. Plan: Continue Symbicort. DuoNeb scheduled and as needed for shortness of breath and wheezing. Continue Singulair. 12. BP 74/51. Plan: Hold antihypertensives due to hypotensive nature. Monitor vitals, adjust medications as necessary. 13. Plan: Continue Synthroid 14. Plan: Continue Amitriptyline and Seroquel. 15. Plan: Lovenox subcutaneously. Protonix IV. Acute change in respiratory status overnight, CODE BLUE called, found to be in PEA, ROSC achieved. Concerns for ARDS. Continue ventilator support. Continue IV antibiotics. Plans for bronchoscopy today. Follow pulmonology and ID recommendations. Cardiology consult for possible diastolic CHF exacerbation. Echocardiogram pending. Nephrology consulted for worsening renal failure. Prognosis is guarded at this time. DVT prophylaxis: [Lovenox] Discussed with: [Patient's daughter, Dr. Artinian, Nephrology] Anticipated discharge: [4-5 days] Anticipated discharge place: [Subacute rehab, home] A total of [60] minutes was spent on the care of this complex patient more than 50% of the time was spent in counseling and care coordination.
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
[2018-08-06 10:04] LABS: ABG Base Excess -10.9 mmol/L; ABG HCO3 17 mmol/L (21-25); ABG Oxygen Saturation 98.3 % (94-97); ABG PCO2 40 mmHg (35-45); ABG PH 7.23 (7.35-7.45); ABG PO2 127 mmHg (83-108); ABG TCO2 18 mmol/L (19-24)
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
--- NOTE | 2018-08-06 10:44 | XR ---
EXAMINATION TYPE: XR chest 1V portable DATE OF EXAM: 08/06/2018 HISTORY: s/p bronch and central line placement. REFERENCE: Previous study dated earlier today. FINDINGS: A left subclavian catheter is been inserted. Its tip is at the cavoatrial junction. The pat ient is ET tube and NG tube remain in place, unchanged in appearance. There is continuing bilateral airspace disease. The heart is enlarged. It would be difficult to exclu de small effusions. No pneumothorax is identified. IMPRESSION: STATUS POST INSERTION OF THE LEFT SUBCLAVIAN CATHETER.
[2018-08-06] MEDS: FLUTICASONE 50MCG/SPRAY NASAL 16GM EA NOSTRIL SCH (11:54)
[2018-08-06] MEDS: CLOPIDOGREL 75 MG TAB PO SCH (11:54)
[2018-08-06] MEDS: ATORVASTATIN 20 MG TAB PO SCH (11:54)
[2018-08-06] MEDS: SERTRALINE 100 MG TAB PO SCH (11:55)
[2018-08-06] MEDS: FOLIC ACID 1 MG TAB PO SCH (11:55)
[2018-08-06] MEDS: guaiFENesin 600 MG TABLET.ER PO SCH ×2 (11:55→22:50)
[2018-08-06] MEDS: PANTOPRAZOLE 40 MG/10 ML VIAL IVP SCH ×2 (12:42→21:54)
[2018-08-06] MEDS: LEVOTHYROXINE IVP 100 MCG/5 ML VIAL IV SCH (12:42)
[2018-08-06] MEDS: CHLORHEXIDINE GLUCONATE 15 ML CUP MUCOUS MEM SCH ×2 (12:42→21:54)
--- NOTE | 2018-08-06 13:14 | US ---
EXAMINATION TYPE: US kidneys/renal and bladder DATE OF EXAM: 08/06/2018 COMPARISON: CT CLINICAL HISTORY: renal failure. EXAM MEASUREMENTS: Right Kidney: 8.9 x 3.9 x 4.6 cm Left Kidney: 10.3 x 5.2 x 3.8 cm Technically difficult study, exam done portably on ICA patient unable to cooperate. Right Kidney: No hydronephrosis or masses seen Left Kidney: No hydronephrosis or masses seen Bladder: not seen, patient has catheter There is no evidence for hydronephrosis at this point in time. No nephrolithiasis is seen. No booker s are identified. The urinary bladder was not visualized. IMPRESSION: NORMAL RENAL ULTRASOUND.
[2018-08-06] MEDS ORDERED: HEPARIN SODIUM,PORCINE 5,000 UNIT/ML 1 ML VIAL IV PRN (14:40)
[2018-08-06] MEDS: HEPARIN SOD,PORK IN 0.45% NACL 25,000 UNIT in 0.45% NACL 1 250ML.BAG IV SCH (15:04)
--- NOTE | 2018-08-06 17:37 | ECHOF ---
Referral Reason:CHF MEASUREMENTS -------- HEIGHT: 160.0 cm WEIGHT: 82.6 kg BP: RVIDd: 4.4 cm (< 3.3) IVSd: 1.4 cm (0.6 - 1.1) LVIDd: 4.5 cm (3.9 - 5.3) LVPWd: 1.6 cm (0.6 - 1.1) IVSs: 1.9 cm LVIDs: 3.9 cm LVPWs: 1.2 cm Ao Diam: 3.5 cm (2.0 - 3.7) AV Cusp: 1.8 cm (1.5 - 2.6) LA Diam: 4.4 cm (2.7 - 3.8) MV EXCURSION: 23.037 mm (> 18.000) MV EF SLOPE: 76 mm/s (70 - 150) EPSS: 0.9 cm MV E Joe: 0.89 m/s MV DecT: 226 ms MV A Joe: 1.09 m/s MV E/A Ratio: 0.81 RAP: 15.00 mmHg RVSP: 80.78 mmHg FINDINGS -------- Undetermined rhythm. This was a techncally difficult study with suboptimal views, , Lumason utilized for enhancement of im ages. The left ventricular size is normal. Overall left ventricular systolic function is low-normal with, an EF between 50 - 55 %. The right ventricle is severely enlarged. The right ventricular septal wall is flattened in diastol e and systole which is consistent with right ventricular volume and pressure overload. The left atrial size is normal. The right atrial size is normal. 5.0mg OF Lumason UTLIZED: 2 OR MORE WALL SEGMENTS NOT VISUALIZED. There is mild aortic valve sclerosis. There is no evidence of aortic regurgitation. Mild mitral annular calcification present. Mild mitral regurgitation is present. Moderate to severe tricuspid regurgitation present. There is moderate to severe pulmonary hypertens ion. The right ventricular systolic pressure, as measured by Doppler, is 80.78mmHg. There is no pulmonic regurgitation present. The aortic root size is normal. IVC Not well visulized. There is no pericardial effusion. CONCLUSIONS -------- 1. This was a techncally difficult study with suboptimal views, , Lumason utilized for enhancement of images. 2. The left ventricular size is normal. 3. Overall left ventricular systolic function is low-normal with, an EF between 50 - 55 %. 4. The right ventricle is severely enlarged. 5. The right ventricular septal wall is flattened in diastole and systole which is consistent with r ight ventricular volume and pressure overload. 6. The left atrial size is normal. 7. The right atrial size is normal. 8. 5.0mg OF Lumason UTLIZED: 2 OR MORE WALL SEGMENTS NOT VISUALIZED. 9. Interatrial Septum not well visulized. 10. There is mild aortic valve sclerosis. 11. Mild mitral annular calcification present. 12. Mild mitral regurgitation is present. 13. Moderate to severe tricuspid regurgitation present. 14. There is moderate to severe pulmonary hypertension. 15. The right ventricular systolic pressure, as measured by Doppler, is 80.78mmHg. 16. There is no pulmonic regurgitation present. 17. The aortic root size is normal. 18. IVC Not well visulized. 19. There is no pericardial effusion. PROOF MACHINE OPERATOR: Shawna Umana RDCS
[2018-08-06] MEDS: methylPREDNISolone SOD SUCCI 125 MG/2 ML VIAL IV SCH ×2 (18:13→23:26)
[2018-08-06] MEDS: CLINDAMYCIN 900 MG in DEXTROSE 5% IN WATER 50 ML IVPB SCH ×2 (19:14)
[2018-08-06 20:18] LABS: Anti-DNA, DS unit <1.0 IU/mL; DNA Double-Stranded NEGATIVE (NEGATIVE)
--- NOTE | 2018-08-06 21:21 | PCN ---
PROCEDURE NOTE PROCEDURE: Bronchoscopy. PREOP DIAGNOSIS: Bilateral pneumonia, consider MRSA pneumonia. POSTOP DIAGNOSIS: Bilateral pneumonia, consider MRSA pneumonia. This procedure was done in the intensive care unit. The patient was not was already sedated with propofol and intubated on the mechanical ventilator. The patient was placed on 100% FiO2. Following that, a flexible bronchoscope was inserted through the orotracheal tube. It was advanced and the lower trachea. The tip of the orotracheal tube was seen around 2 cm above the rebeca. Examination of the distal trachea and main rebeca was within normal limits. Current respiratory secretions were noted in the left mainstem bronchus and they were mainly originating from the left upper lobe and lingular segments. Therapeutic airway suctioning was done. Airway inspection was completed and lesser amount of current secretions were identified in the right mainstem bronchus. Complete airway inspection included the bilateral mainstem bronchi, right upper lobe bronchus intermedius and right lower lobe bronchus, left upper and left lower lobe bronchus, and various segments and subsegments. All of these were patent and within normal limits. Purulent secretions were noted mainly in the left upper lobe in the lingular segment. They were suctioned out. At the end of the procedure, the bronchial lavage of the lingular segment was done and about a total of 80 mL of fluid was infused and 25 mL was suctioned back. The bronchoscope was removed. Oxygenation remained above 90% throughout the procedure. No bedside complications or bleeding. The patient remained hemodynamically unchanged throughout the procedure. The patient continues to be on pressors. The fluid will be sent for microbial analysis. MMODL / IJN: [id number] /
--- NOTE | 2018-08-06 21:43 | PCN ---
PROCEDURE NOTE PROCEDURE: Insertion of a triple-lumen catheter. SITE OF INSERTION: Left subclavian vein. PREOP DIAGNOSES: Bilateral pneumonia and respiratory failure. POSTOP DIAGNOSES: Bilateral pneumonia and respiratory failure. TRIPLE LUMEN CATHETER PLACEMENT: Indication: Hemodynamic monitoring/Intravenous access. A time-out was completed verifying correct patient, procedure, site, positioning, and implant(s) or special equipment if applicable. The patient was placed in a dependent position appropriate for triple lumen catheter placement based on the vein to be cannulated. The patient's left shoulder was prepped and draped in sterile fashion. 1% Lidocaine was used to anesthetize the surrounding skin area. A triple lumen 9F Cordis catheter was introduced into the left subclavian vein using Seldinger technique. The catheter was threaded smoothly over the guide wire and appropriate blood return was obtained. Each lumen of the catheter was evacuated of air and flushed with sterile saline. The catheter was then sutured in place to the skin and a sterile dressing applied. Perfusion to the extremity distal to the point of catheter insertion was checked and found to be adequate. No bedside complications or bleeding. Chest x-ray is to follow. MMODL / IJN: [id number] /
[2018-08-06] MEDS: AMITRIPTYLINE HCL 50 MG TAB PO SCH (21:54)
[2018-08-06] MEDS: DOCUSATE 100 MG CAP PO SCH (21:54)
[2018-08-06] MEDS: QUEtiapine 200 MG TAB PO SCH (21:55)
[2018-08-06] MEDS: MONTELUKAST 10 MG TAB PO SCH (21:55)
[2018-08-06] MEDS: IPRATROPIUM-ALBUTEROL 3 ML NEB INHALATION PRN (22:59)
[2018-08-06] MEDS ORDERED: guaiFENesin-DM 100-10MG/5ML 10 ML CUP PO PRN (23:00)
[2018-08-07] MEDS: CLINDAMYCIN 900 MG in DEXTROSE 5% IN WATER 50 ML IVPB SCH ×6 (00:25→16:22)
[2018-08-07] MEDS: PROPOFOL 1,000 MG in EMPTY BAG 1 BAG IV SCH ×7 (00:25→19:58)
[2018-08-07] MEDS: IPRATROPIUM-ALBUTEROL 3 ML NEB INHALATION PRN (03:15)
[2018-08-07] MEDS: NOREPINEPHRINE 4 MG in SODIUM CHLORIDE 0.9% 250 ML IV SCH (04:12)
[2018-08-07 05:01] LABS: Glucose,Whole Blood 158 mg/dL (75-99)
[2018-08-07 05:13] LABS: ABG Base Excess -4.4 mmol/L; ABG HCO3 21 mmol/L (21-25); ABG Oxygen Saturation 98.9 % (94-97); ABG PCO2 36 mmHg (35-45); ABG PH 7.38 (7.35-7.45); ABG PO2 120 mmHg (83-108); ABG TCO2 22 mmol/L (19-24)
[2018-08-07 05:21] LABS: Calcium 7.3 mg/dL (8.4-10.2); Magnesium 1.5 mg/dL (1.6-2.3); Phosphorus 3.9 mg/dL (2.5-4.5); Potassium 3.4 mmol/L (3.5-5.1)
[2018-08-07 05:27] LABS: Basophils % (A) 0 %; Eosinophils % (A) 0 %; HCT 23.8 % (34.0-46.0); HGB 7.4 gm/dL (11.4-16.0); Hypochromasia Moderate; Lymphocytes # (A) 0.4 k/uL (1.0-4.8); Lymphocytes % (A) 2 %; MCH 28.8 pg (25.0-35.0); MCHC 31.1 g/dL (31.0-37.0); Monocytes # (A) 0.4 k/uL (0-1.0); Monocytes % (A) 2 %; Neutrophils # (A) 21.5 k/uL (1.3-7.7); Neutrophils % (A) 96 %; Platelet Count 255 k/uL (150-450); RBC 2.57 m/uL (3.80-5.40); RDW 15.9 % (11.5-15.5); WBC 22.3 k/uL (3.8-10.6)
[2018-08-07 05:34] LABS: MCV 92.5 fL (80.0-100.0)
[2018-08-07] MEDS: methylPREDNISolone SOD SUCCI 125 MG/2 ML VIAL IV SCH ×3 (05:49→13:34)
[2018-08-07] MEDS: INSULIN ASPART (NovoLOG) 100 UNIT/ML VIAL SQ SCH ×4 (05:50→23:45)
[2018-08-07 05:55] LABS: Glucose,Whole Blood 153 mg/dL (75-99)
--- NOTE | 2018-08-07 06:36 | XR ---
EXAMINATION TYPE: XR chest 1V portable DATE OF EXAM: 08/07/2018 HISTORY: Tube placement. REFERENCE: Previous study dated 08/06/2018. FINDINGS: The patient is NG tube, ET tube and left subclavian catheter remain in place, unchanged in appearance. The heart is enlarged. There is bilateral interstitial and airspace disease. I could not exclude smal l effusions. IMPRESSION: NO SIGNIFICANT INTERVAL CHANGE IN THE APPEARANCE OF THE CHEST.
--- NOTE | 2018-08-07 07:00 | P.PN ---
Subjective Progress Note Date: 08/07/18 Principal diagnosis: Acute hypoxic respiratory failure This is a pleasant 63-year-old female patient who I follow in the office as an outpatient with known history of coronary artery disease and prior coronary artery stenting of the RCA, hypertension, dyslipidemia, as well as multiple psychiatric disorder, initially was admitted to the hospital with what it seems to be pneumonia and subsequently she was coded was PDA and was transferred to the intensive care unit. Currently the patient is intubated and she is on ventilator and the history was taken from her daughter as well as from the nurse taking care of the patient. I just saw the patient in the office last week and she was doing quite well from the cardiovascular standpoint overview. About 4 days ago, the patient was found to be weak as well as slightly confused by her daughter. She was experiencing some cough without any sputum and without any fever or chills. Because of that her daughter brought her to the hospital for further evaluation. Please note that the patient's has been was getting t reated for MRSA in the lower extremities and he was going to do one to clinic for that. The patient initially was admitted to a non-telemetry floor for pneumonia and she was on antibiotic. Yesterday, she was agitated and she was given Ativan but subsequently she developed change in mental status and subsequently she did have PDA. After that the patient was intubated and transferred to the intensive care unit. The patient currently still intubated. She is hemodynamically unstable and requiring quite high dose of Levophed. She is in normal sinus mechanism. The hemoglobin is 7.5, the creatinine is 2.7, and I did review the chest x-ray from the morning which revealed bilateral infiltrate and questionable bilateral pneumonia. There is also a possibility that the patient was aspirated during the cold yesterday. The BNP is 45,000. The echocardiogram revealed moderate to severe tricuspid regurgitation, moderate to severe pulmonary hypertension, and preserved left ventricle systolic function On follow-up with the patient today, she still intubated on mechanical ventilation. She still hemodynamically unstable and requiring lower dose of Sudafed. The chest x-ray continues to show finding consistent with bilateral pneumonia. The creatinine is worse today. She continues to be an antibiotic. The impression that the pneumonia is likely related to MRSA. She continues to be on antibiotic for the pneumonia. She is also on aspirin as well as statin. Objective - Vital Signs Vital signs: Vital Signs Temp 101.7 F H 08/07/18 04:15 Pulse 107 H 08/07/18 06:00 Resp 25 H 08/07/18 06:00 BP 124/75 08/07/18 04:15 Pulse Ox 97 08/07/18 06:00 Intake & Output 08/06/18 08/06/18 08/07/18 06:59 18:59 06:59 Intake Total 2656.102 3388.218 2328.582 Output Total 195 55 95 Balance 2461.102 3333.218 2233.582 Weight 83 kg 96.4 kg Intake: IV 2600 2240 1340 Ceftaroline Fosamil 300 50 mg In Sodium Chloride 0.9 % 50 ml @ 100 mls/hr IVPB Q12HR [facility] Rx#:[id number] Clindamycin 900 mg In 50 Dextrose 5% in Water 50 ml @ 50 mls/hr IVPB Q8HR [facility] Rx#:[id number] Dextrose 5% in Water 1, 600 1200 1000 000 ml @ 100 mls/hr IV . Q11H [facility] with Sodium Bicarb (1 Meq/ml) 100 ml Rx#:[id number] Sodium Chloride 0.9% 2, 2000 1000 000 ml @ 999 mls/hr IV . Q2H1M [facility] Rx#:[id number] ns for KVO line 40 240 Intake, IV Titration 56.102 1148.218 988.582 Amount Ceftaroline Fosamil 300 100 mg In Sodium Chloride 0.9 % 50 ml @ 100 mls/hr IVPB Q12HR [facility] Rx#:[id number] Heparin Sod,Pork in 0.45% 75.862 NaCl 25,000 unit In 0.45 % NaCl 1 250ml.bag @ 12 UNITS/KG/HR 9.96 mls/hr IV .Q24H [facility] Rx#: [id number] Norepinephrine 4 mg In 56.102 786.368 562.391 Sodium Chloride 0.9% 250 ml @ 0.05 MCG/KG/MIN 16. 029 mls/hr IV .[id number] [facility] Rx#:[id number] Propofol 1,000 mg In 261.850 350.329 Empty Bag 1 bag @ Titrate IV .Q0M [facility] Rx#: [id number] Output: Urine 195 55 95 Other: Voiding Method Indwelling Catheter Indwelling Catheter Indwelling Catheter ABP, PAP, CO, CI - Last Documented Arterial Blood Pressure 118/56 - Constitutional General appearance: Present: no acute distress - Respiratory Respiratory: bilateral: rales - Cardiovascular Rhythm: regular - Labs CBC & Chem 7: 08/07/18 04:45 08/07/18 04:45 Labs: Abnormal Lab Results - Last 24 Hours (Table) 08/06/18 08/06/18 08/07/18 Range/Units 10:03 21:00 04:45 WBC 22.3 H (3.8-10.6) k/uL RBC 2.57 L (3.80-5.40) m/uL Hgb 7.4 L (11.4-16.0) gm/dL Hct 23.8 L (34.0-46.0) % RDW 15.9 H (11.5-15.5) % Neutrophils # 21.5 H (1.3-7.7) k/uL Lymphocytes # 0.4 L (1.0-4.8) k/uL APTT 42.0 H (22.0-30.0) sec ABG pH 7.23 L (7.35-7.45) ABG pO2 127 H (83-108) mmHg ABG HCO3 17 L (21-25) mmol/L ABG Total CO2 18 L (19-24) mmol/L ABG O2 Saturation 98.3 H (94-97) % Potassium (3.5-5.1) mmol/L Carbon Dioxide (22-30) mmol/L BUN (7-17) mg/dL Creatinine (0.52-1.04) mg/dL Glucose (74-99) mg/dL POC Glucose (mg/dL) (75-99) mg/dL Calcium (8.4-10.2) mg/dL Magnesium (1.6-2.3) mg/dL 08/07/18 08/07/18 08/07/18 Range/Units 04:45 04:45 04:47 WBC (3.8-10.6) k/uL RBC (3.80-5.40) m/uL Hgb (11.4-16.0) gm/dL Hct (34.0-46.0) % RDW (11.5-15.5) % Neutrophils # (1.3-7.7) k/uL Lymphocytes # (1.0-4.8) k/uL APTT 61.9 H (22.0-30.0) sec ABG pH (7.35-7.45) ABG pO2 (83-108) mmHg ABG HCO3 (21-25) mmol/L ABG Total CO2 (19-24) mmol/L ABG O2 Saturation (94-97) % Potassium 3.4 L (3.5-5.1) mmol/L Carbon Dioxide 21 L (22-30) mmol/L BUN 33 H (7-17) mg/dL Creatinine 3.63 H (0.52-1.04) mg/dL Glucose 144 H (74-99) mg/dL POC Glucose (mg/dL) 158 H (75-99) mg/dL Calcium 7.3 L (8.4-10.2) mg/dL Magnesium 1.5 L (1.6-2.3) mg/dL 08/07/18 08/07/18 Range/Units 05:09 05:42 WBC (3.8-10.6) k/uL RBC (3.80-5.40) m/uL Hgb (11.4-16.0) gm/dL Hct (34.0-46.0) % RDW (11.5-15.5) % Neutrophils # (1.3-7.7) k/uL Lymphocytes # (1.0-4.8) k/uL APTT (22.0-30.0) sec ABG pH (7.35-7.45) ABG pO2 120 H (83-108) mmHg ABG HCO3 (21-25) mmol/L ABG Total CO2 (19-24) mmol/L ABG O2 Saturation 98.9 H (94-97) % Potassium (3.5-5.1) mmol/L Carbon Dioxide (22-30) mmol/L BUN (7-17) mg/dL Creatinine (0.52-1.04) mg/dL Glucose (74-99) mg/dL POC Glucose (mg/dL) 153 H (75-99) mg/dL Calcium (8.4-10.2) mg/dL Magnesium (1.6-2.3) mg/dL Microbiology - Last 24 Hours (Table) 08/06/18 09:30 Gram Stain - Preliminary Bronchial Washings - Random Bronchial Washings Culture - Preliminary 07/31/18 19:41 Blood Culture - Final Blood No Growth after 144 hours 08/06/18 09:30 Acid Fast Bacilli Culture - Preliminary Bronchial Washings - Random 08/06/18 09:30 Fungal Culture - Preliminary Bronchial Washings - Random Assessment and Plan Assessment: Assessment #1 acute hypoxic respiratory failure #2 bilateral pneumonia, with MRSA #3 acute renal failure #4 anemia #5 known coronary artery disease and prior coronary artery stenting #6 multiple comorbid conditions. Plan #1 continue hemodynamic support and try to wean the patient from vasopressors #2 she is on antibiotic for the MRSA #3 the echocardiogram was reviewed and described above #4 the patient possibly need to have dialysis for the worsening kidney function #5 I suggest DC the heparin #6 follow-up with the patient
[2018-08-07] MEDS: IPRATROPIUM-ALBUTEROL 3 ML NEB INHALATION SCH ×4 (07:40→18:58)
[2018-08-07] MEDS: SYMBICORT 80-4.5 MCG INHALER INHALATION SCH ×2 (07:40→18:56)
[2018-08-07] MEDS: SODIUM CHLORIDE 0.9% IVPB SCH ×2 (07:53→22:00)
[2018-08-07] MEDS: CEFTAROLINE FOSAMIL IVPB SCH ×2 (07:53→22:00)
[2018-08-07] MEDS: CLOPIDOGREL 75 MG TAB PO SCH (07:54)
[2018-08-07] MEDS: FOLIC ACID 1 MG TAB PO SCH (07:54)
[2018-08-07] MEDS: ATORVASTATIN 20 MG TAB PO SCH (07:54)
[2018-08-07] MEDS: PANTOPRAZOLE 40 MG/10 ML VIAL IVP SCH ×2 (07:54→20:02)
[2018-08-07] MEDS: CHLORHEXIDINE GLUCONATE 15 ML CUP MUCOUS MEM SCH ×2 (07:54→20:01)
[2018-08-07] MEDS: LEVOTHYROXINE IVP 100 MCG/5 ML VIAL IV SCH (07:54)
[2018-08-07] MEDS: SERTRALINE 100 MG TAB PO SCH (07:55)
--- NOTE | 2018-08-07 09:02 | P.PN ---
Subjective Progress Note Date: 08/07/18 Seen and examined for the follow-up of acute kidney injury. Still oliguric. Less than 500 ML's of urine in the last 24 hours. Still on a ventilator 50% FiO2 and 5 of PEEP. 4 mics of levophed. Objective - Vital Signs Vital signs: Vital Signs Temp 101.7 F H 08/07/18 04:15 Pulse 102 H 08/07/18 07:52 Resp 31 H 08/07/18 07:30 BP 124/75 08/07/18 04:15 Pulse Ox 98 08/07/18 07:30 Intake & Output 08/06/18 08/07/18 08/07/18 18:59 06:59 18:59 Intake Total 3388.218 2428.582 120 Output Total 55 95 0 Balance 3333.218 2333.582 120 Weight 96.4 kg Intake: IV 2240 1440 120 Ceftaroline Fosamil 300 50 mg In Sodium Chloride 0.9 % 50 ml @ 100 mls/hr IVPB Q12HR [facility] Rx#:[id number] Clindamycin 900 mg In 50 Dextrose 5% in Water 50 ml @ 50 mls/hr IVPB Q8HR [facility] Rx#:[id number] Dextrose 5% in Water 1, 1200 1000 000 ml @ 100 mls/hr IV . Q11H [facility] with Sodium Bicarb (1 Meq/ml) 100 ml Rx#:[id number] Dextrose 5% in Water 1, 100 100 000 ml @ 100 mls/hr IV . [id number] [facility] with Sodium Bicarb (1 Meq/ml) 150 ml Rx#:[id number] Sodium Chloride 0.9% 2, 1000 000 ml @ 999 mls/hr IV . Q2H1M [facility] Rx#:[id number] ns for KVO line 40 240 20 Intake, IV Titration 1148.218 988.582 Amount Ceftaroline Fosamil 300 100 mg In Sodium Chloride 0.9 % 50 ml @ 100 mls/hr IVPB Q12HR [facility] Rx#:[id number] Heparin Sod,Pork in 0.45% 75.862 NaCl 25,000 unit In 0.45 % NaCl 1 250ml.bag @ 12 UNITS/KG/HR 9.96 mls/hr IV .Q24H [facility] Rx#: [id number] Norepinephrine 4 mg In 786.368 562.391 Sodium Chloride 0.9% 250 ml @ 0.05 MCG/KG/MIN 16. 029 mls/hr IV .[id number] [facility] Rx#:[id number] Propofol 1,000 mg In 261.850 350.329 Empty Bag 1 bag @ Titrate IV .Q0M [facility] Rx#: [id number] Output: Urine 55 95 0 Other: Voiding Method Indwelling Catheter Indwelling Catheter ABP, PAP, CO, CI - Last Documented Arterial Blood Pressure 121/56 - Exam No acute distress on ventilator S1-S2 heard Decreased breath sounds bases with crackles Edema. - Labs CBC & Chem 7: 08/07/18 04:45 08/07/18 04:45 Labs: Abnormal Lab Results - Last 24 Hours (Table) 08/06/18 08/06/18 08/07/18 Range/Units 10:03 21:00 04:45 WBC 22.3 H (3.8-10.6) k/uL RBC 2.57 L (3.80-5.40) m/uL Hgb 7.4 L (11.4-16.0) gm/dL Hct 23.8 L (34.0-46.0) % RDW 15.9 H (11.5-15.5) % Neutrophils # 21.5 H (1.3-7.7) k/uL Lymphocytes # 0.4 L (1.0-4.8) k/uL APTT 42.0 H (22.0-30.0) sec ABG pH 7.23 L (7.35-7.45) ABG pO2 127 H (83-108) mmHg ABG HCO3 17 L (21-25) mmol/L ABG Total CO2 18 L (19-24) mmol/L ABG O2 Saturation 98.3 H (94-97) % Potassium (3.5-5.1) mmol/L Carbon Dioxide (22-30) mmol/L BUN (7-17) mg/dL Creatinine (0.52-1.04) mg/dL Glucose (74-99) mg/dL POC Glucose (mg/dL) (75-99) mg/dL Calcium (8.4-10.2) mg/dL Magnesium (1.6-2.3) mg/dL 08/07/18 08/07/18 08/07/18 Range/Units 04:45 04:45 04:47 WBC (3.8-10.6) k/uL RBC (3.80-5.40) m/uL Hgb (11.4-16.0) gm/dL Hct (34.0-46.0) % RDW (11.5-15.5) % Neutrophils # (1.3-7.7) k/uL Lymphocytes # (1.0-4.8) k/uL APTT 61.9 H (22.0-30.0) sec ABG pH (7.35-7.45) ABG pO2 (83-108) mmHg ABG HCO3 (21-25) mmol/L ABG Total CO2 (19-24) mmol/L ABG O2 Saturation (94-97) % Potassium 3.4 L (3.5-5.1) mmol/L Carbon Dioxide 21 L (22-30) mmol/L BUN 33 H (7-17) mg/dL Creatinine 3.63 H (0.52-1.04) mg/dL Glucose 144 H (74-99) mg/dL POC Glucose (mg/dL) 158 H (75-99) mg/dL Calcium 7.3 L (8.4-10.2) mg/dL Magnesium 1.5 L (1.6-2.3) mg/dL 08/07/18 08/07/18 Range/Units 05:09 05:42 WBC (3.8-10.6) k/uL RBC (3.80-5.40) m/uL Hgb (11.4-16.0) gm/dL Hct (34.0-46.0) % RDW (11.5-15.5) % Neutrophils # (1.3-7.7) k/uL Lymphocytes # (1.0-4.8) k/uL APTT (22.0-30.0) sec ABG pH (7.35-7.45) ABG pO2 120 H (83-108) mmHg ABG HCO3 (21-25) mmol/L ABG Total CO2 (19-24) mmol/L ABG O2 Saturation 98.9 H (94-97) % Potassium (3.5-5.1) mmol/L Carbon Dioxide (22-30) mmol/L BUN (7-17) mg/dL Creatinine (0.52-1.04) mg/dL Glucose (74-99) mg/dL POC Glucose (mg/dL) 153 H (75-99) mg/dL Calcium (8.4-10.2) mg/dL Magnesium (1.6-2.3) mg/dL Microbiology - Last 24 Hours (Table) 08/06/18 09:30 Gram Stain - Preliminary Bronchial Washings - Random Bronchial Washings Culture - Preliminary 07/31/18 19:41 Blood Culture - Final Blood No Growth after 144 hours 08/06/18 09:30 Acid Fast Bacilli Culture - Preliminary Bronchial Washings - Random 08/06/18 09:30 Fungal Culture - Preliminary Bronchial Washings - Random Assessment and Plan Assessment: #1 oliguric acute kidney injury multifactorial. Possibilities include -Toxic ATN from vancomycin with a trough level of 32. -Ischemic ATN with cardiopulmonary arrest and currently on 4 mics of Levophed. -Rule out acute GN with pulmonary renal syndrome. #2 MRSA pneumonia #3 vent dependent respiratory failure #4 anion gap metabolic acidosis secondary to renal failure. I can't be improved with clearance of lactate and bicarb drip. #5 septic shock #6 PEA arrest #7 mild hypokalemia Plan: #1 stop bicarb drip as PH is better and CO2 is 21. #2 agree with Lasix 80 mg if she makes more than 200 ML's of urine in 2 hours add Lasix drip at 10 ML's an hour. #3 replace potassium 40 mEq. #4 vasculitis screen and anti-GBM with pulmonary renal picture, pending. #5 wean off levo, maintaining map more than 65 #6 no acute indication for renal replacement therapy today. Reevaluate based on day by day basis. Thank you very much for this consultation we will follow along while she is in the hospital. Discussed with the ICU team and family at bedside.
--- NOTE | 2018-08-07 09:05 | P.PN ---
Subjective Progress Note Date: 08/07/18 Principal diagnosis: MRSA pneumonia 63-year-old female with PMH of COPD, TIA,DVT in the past, hyperlipidemia, hypertension, history of TBI, hypothyroidism presents to the ED for worsening mentation and productive cough. Extensive workup was done in the ED. Patient initially had a leukocytosis of 12.1, she was febrile on admission with a T-max of 100.3 Fahrenheit, tachycardic with a heart rate of 99. CT of the brain was negative for acute process. Ammonia was within normal limits. UDS was positive for TCAs. Urinalysis was negative for nitrites or leukocyte esterase. Chest x- ray showed concerns of upper lobe pneumonia, patient was started on IV antibiotics along with supplemental oxygen and admitted for further workup. Patient was initially started on vancomycin and Zosyn IV along with levofloxacin by mouth. Vancomycin was initially discontinued by infectious disease but was restarted when it was discovered that the patient had been taking care of her who is suffering from MRSA wound infection. Of note, patient was recently hospitalized at [facility] for workup of TIA. At that time, patient was evaluated for metabolic encephalopathy likely se condary to TIA. She was initially found down with significant facial droop. MRI brain was done which showed no evidence of acute ischemia. Carotid duplex showed less than 50% stenosis of the internal carotid segment bilaterally. CT of the lumbar spine without contrast showed small to moderate hiatal hernia, unremarkable L-spine. MRI of the L-spine showed multilevel DJD without significant stenosis. Echocardiogram showed EF of 55-60% with grade 2 diastolic dysfunction. EEG was also done which showed mild generalized dysfunction. Stress test was also done which showed no evidence of ischemia. Repeat chest x-ray on the following days showed no improvement in pneumonia and signs of CHF. patient was diuresed intermittently with Lasix IV. On 08/06/2018, patient had worsening of her respiratory status and CODE BLUE was called for PEA, ROSC achieved after approximately 10 minutes. She was sent to the ICU. Her vancomycin was discontinued due to worsening renal function and patient was started on Ceftaroline and clindamycin IV. Patient was seen and examined this morning. No acute events overnight. Spiking fevers as high as 102.6 Fahrenheit this morning. Levophed at 0.05 mcg/kg per minute. Currently on bicarbonate drip. On Ceftaroline and clindamycin IV. Chest x-ray this morning shows no significant interval change. CMP shows worsening renal function with a creatinine of 3.63. She is currently intubated with FiO2 of 55, tidal volume 500, PEEP of 5, respiratory rate of 28. Bronchoscopy done yesterday with deep culture, pending. Objective - Vital Signs Vital signs: Vital Signs Temp 101.7 F H 08/07/18 04:15 Pulse 102 H 08/07/18 07:52 Resp 31 H 08/07/18 07:30 BP 124/75 08/07/18 04:15 Pulse Ox 98 08/07/18 07:30 Intake & Output 08/06/18 08/07/18 08/07/18 18:59 06:59 18:59 Intake Total 3388.218 2428.582 120 Output Total 55 95 0 Balance 3333.218 2333.582 120 Weight 96.4 kg Intake: IV 2240 1440 120 Ceftaroline Fosamil 300 50 mg In Sodium Chloride 0.9 % 50 ml @ 100 mls/hr IVPB Q12HR [facility] Rx#:[id number] Clindamycin 900 mg In 50 Dextrose 5% in Water 50 ml @ 50 mls/hr IVPB Q8HR [facility] Rx#:[id number] Dextrose 5% in Water 1, 1200 1000 000 ml @ 100 mls/hr IV . Q11H [facility] with Sodium Bicarb (1 Meq/ml) 100 ml Rx#:[id number] Dextrose 5% in Water 1, 100 100 000 ml @ 100 mls/hr IV . [id number] [facility] with Sodium Bicarb (1 Meq/ml) 150 ml Rx#:[id number] Sodium Chloride 0.9% 2, 1000 000 ml @ 999 mls/hr IV . Q2H1M ONE Rx#:[id number] ns for KVO line 40 240 20 Intake, IV Titration 1148.218 988.582 Amount Ceftaroline Fosamil 300 100 mg In Sodium Chloride 0.9 % 50 ml @ 100 mls/hr IVPB Q12HR [facility] Rx#:[id number] Heparin Sod,Pork in 0.45% 75.862 NaCl 25,000 unit In 0.45 % NaCl 1 250ml.bag @ 12 UNITS/KG/HR 9.96 mls/hr IV .Q24H [facility] Rx#: [id number] Norepinephrine 4 mg In 786.368 562.391 Sodium Chloride 0.9% 250 ml @ 0.05 MCG/KG/MIN 16. 029 mls/hr IV .[id number] [facility] Rx#:[id number] Propofol 1,000 mg In 261.850 350.329 Empty Bag 1 bag @ Titrate IV .Q0M [facility] Rx#: [id number] Output: Urine 55 95 0 Other: Voiding Method Indwelling Catheter Indwelling Catheter ABP, PAP, CO, CI - Last Documented Arterial Blood Pressure 121/56 - Exam General: [non toxic], [intubated on full vent support], [appears at stated age] Derm: [warm], [dry] Head: [atraumatic], [normocephalic], [symmetric] Eyes: [EOMI], [no lid lag], [anicteric sclera] Mouth: [no lip lesion], [mucus membranes moist] Cardiovascular: [S1S2 reg], [tachycardia], [positive DP pulse bilateral] Lungs: [Decreased breath sounds bilaterally with bibasilar crackles], [no rhonchi, no rales] , [no accessory muscle use] Abdominal: [soft], [ nontender to palpation], [no guarding], [no appreciable organomegaly] Ext: [no gross muscle atrophy], [no edema], [no contractures], [ecchymosis over left buttock] - Labs CBC & Chem 7: 08/07/18 04:45 08/07/18 04:45 Labs: Abnormal Lab Results - Last 24 Hours (Table) 08/06/18 08/06/18 08/07/18 Range/Units 10:03 21:00 04:45 WBC 22.3 H (3.8-10.6) k/uL RBC 2.57 L (3.80-5.40) m/uL Hgb 7.4 L (11.4-16.0) gm/dL Hct 23.8 L (34.0-46.0) % RDW 15.9 H (11.5-15.5) % Neutrophils # 21.5 H (1.3-7.7) k/uL Lymphocytes # 0.4 L (1.0-4.8) k/uL APTT 42.0 H (22.0-30.0) sec ABG pH 7.23 L (7.35-7.45) ABG pO2 127 H (83-108) mmHg ABG HCO3 17 L (21-25) mmol/L ABG Total CO2 18 L (19-24) mmol/L ABG O2 Saturation 98.3 H (94-97) % Potassium (3.5-5.1) mmol/L Carbon Dioxide (22-30) mmol/L BUN (7-17) mg/dL Creatinine (0.52-1.04) mg/dL Glucose (74-99) mg/dL POC Glucose (mg/dL) (75-99) mg/dL Calcium (8.4-10.2) mg/dL Magnesium (1.6-2.3) mg/dL 08/07/18 08/07/18 08/07/18 Range/Units 04:45 04:45 04:47 WBC (3.8-10.6) k/uL RBC (3.80-5.40) m/uL Hgb (11.4-16.0) gm/dL Hct (34.0-46.0) % RDW (11.5-15.5) % Neutrophils # (1.3-7.7) k/uL Lymphocytes # (1.0-4.8) k/uL APTT 61.9 H (22.0-30.0) sec ABG pH (7.35-7.45) ABG pO2 (83-108) mmHg ABG HCO3 (21-25) mmol/L ABG Total CO2 (19-24) mmol/L ABG O2 Saturation (94-97) % Potassium 3.4 L (3.5-5.1) mmol/L Carbon Dioxide 21 L (22-30) mmol/L BUN 33 H (7-17) mg/dL Creatinine 3.63 H (0.52-1.04) mg/dL Glucose 144 H (74-99) mg/dL POC Glucose (mg/dL) 158 H (75-99) mg/dL Calcium 7.3 L (8.4-10.2) mg/dL Magnesium 1.5 L (1.6-2.3) mg/dL 08/07/18 08/07/18 Range/Units 05:09 05:42 WBC (3.8-10.6) k/uL RBC (3.80-5.40) m/uL Hgb (11.4-16.0) gm/dL Hct (34.0-46.0) % RDW (11.5-15.5) % Neutrophils # (1.3-7.7) k/uL Lymphocytes # (1.0-4.8) k/uL APTT (22.0-30.0) sec ABG pH (7.35-7.45) ABG pO2 120 H (83-108) mmHg ABG HCO3 (21-25) mmol/L ABG Total CO2 (19-24) mmol/L ABG O2 Saturation 98.9 H (94-97) % Potassium (3.5-5.1) mmol/L Carbon Dioxide (22-30) mmol/L BUN (7-17) mg/dL Creatinine (0.52-1.04) mg/dL Glucose (74-99) mg/dL POC Glucose (mg/dL) 153 H (75-99) mg/dL Calcium (8.4-10.2) mg/dL Magnesium (1.6-2.3) mg/dL Microbiology - Last 24 Hours (Table) 08/06/18 09:30 Gram Stain - Preliminary Bronchial Washings - Random Bronchial Washings Culture - Preliminary 07/31/18 19:41 Blood Culture - Final Blood No Growth after 144 hours 08/06/18 09:30 Acid Fast Bacilli Culture - Preliminary Bronchial Washings - Random 08/06/18 09:30 Fungal Culture - Preliminary Bronchial Washings - Random Assessment and Plan Assessment: Assessment and Plan 0. PEA 1. Acute hypoxic respiratory failure, likely secondary to MRSA pneumonia and possible ARDS along with acute on chronic systolic-diastolic heart failure and possible PE 2. Possible ARDS 3. Sepsis, likely secondary to MRSA pneumonia 4. Healthcare associated pneumonia, MRSA 5. Acute on chronic diastolic heart failure 6. Hyperchloremic metabolic acidosis 7. Acute renal failure 8. 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 Anemia 10. History of CVA 11. COPD 12. Hypertension 13. Hypothyroidism 14. Depression 15. DVT and GI Prophylaxis 0. CODE BLUE called 08/06/2018 for PEA. ROSC achieved in about 10 minutes. Likely secondary to severe MRSA pneumonia. D-dimer 28.85. Echocardiogram shows EF 50-55% with right ventricular pressure overload. Plan: Continue Levophed to maintain MAP > 65. Full ventilator support. Continue IV antibiotics in the treatment of MRSA pneumonia. Continue heparin drip yesterday for concerns of PE. Follow Duplex of all 4 extremities 1. Worsening respiratory status 08/06. Chest x-ray showing cardiomegaly with parenchymal changes and diffuse left lung with multifocal right lung edema and infiltrates, Small right effusion. ABG showing picture of metabolic acidosis along with respiratory acidosis. PaO2 over FiO2 is 120. D-dimer 28.85, Echocardiogram shows EF 50-55% with right ventricular pressure overload. Plan: Full ventilator support, limit tidal volume to 6 mL/kg with adequate high PEEP. Full pressor support to maintain MAP > 65. Continue IV antibiotics in the treatment of MRSA pneumonia. Lasix 80 mg IV one time dose today, cut down IVF to NS 50 cc/h. Continue IV heparin for concerns for PE. Follow pulmonology recommendations. Follow cardiology recommendations. Follow repeat sputum cultures. Follow Duplex of all 4 extremities. 2. Plan: Management as above. 3. Patient with leukocytosis of 22.3, febrile on admission with T-max 102.4, tachycardic with heart rate of 102 with + source of infection seen on chest x- ray. UA negative for nitrite or leukocyte esterase. Blood culture negative at 144 hours. Lactic acid 4.4 to 1.4 following CODE BLUE. ID consulted, recommends continuing Ceftaroline and Clindamycin. Sputum culture 08/02 positive for MRSA. Plan: Decrease IVF to normal saline 50 mL per hour. Follow repeat blood culture. Follow sputum culture 08/06/2018. Continue IV antibiotics. Tylenol as needed for fever. Follow infectious disease consult. 4. As seen on chest x-ray. Passed swallow evaluation. Sputum culture positive for MRSA. Blood cultures negative at 144 hours. Plan: Continue Ceftaroline and Clindamycin IV. Management as above. Follow pulmonology consult. Continue Mucinex. 5. Echocardiogram recently performed [facility] shows EF 55-60% with grade 2 diastolic dysfunction. Repeat echocardiogram showing EF 50-55% with right ventricular pressure overload. Chest x-ray showing no significant interval change. Plan: Lasix 80 mg IV x 1 today and decrease IVF to NS at 50 cc/h. Cardiology consulted, recommends DC metoprolol and amlodipine. Keep Mag > 2 and K > 4. Daily weights. Intake and outake. Follow cardiology recommendations. 6. Chloride 110-within normal limits, bicarbonate of 16-21. Possibly due to IVF infused. Also with worsening renal dysfunction. Lactic acid elevated at 4.4 to 1.4. ABG shows normal pH this morning. Plan: Bicarbonate drip discontinued. Continue normal saline at 50 mL per hour. Follow nephrology recommendations. 7. BUN 25-33, creatinine 2.92-3.63, worsening. Likely secondary to clindamycin, Lasix use, sepsis. Bladder ultrasound shows no obstruction. Producing 60 mL of urine overnight. Plan: Avoid nephrotoxins. Continue NS at 50 cc/h. Replace pot assium. Daily BMP. SELMA negative. Follow autoimmune workup. Follow nephrology recommendations. 8. Likely secondary to pneumonia. CT brain is negative for acute process. Ammonia is within normal limits. UDS positive for TCAs. UA is negative for nitrite or leukocyte esterase. Chest x-ray showing concerns for upper lobe pneumonia. TSH is within normal limits. Ammonia is within normal limits. SELMA negative and syphilis testing negative. Plan: Continue IV antibiotics along with supplemental oxygen in the treatment of MRSA pneumonia. Fall precautions. Follow PT and OT recommendations. 9. Hemoglobin 9.2-8.1-8.5-7.5-7.4, normocytic. Concerns due to hematoma. Plan: Daily CBC. Transfuse if hemoglobin less than 7. 10. Reviewed records from [facility]. MRI brain, echocardiogram, stress test all within normal limits. MRI L-spine within normal limits. EEG showing nonspecific changes. Carotid duplex showing less than 50% bilateral stenosis. Plan: Continue Plavix and Lipitor. Follow PT consult. 11. Not in acute exacerbation. Plan: Continue Symbicort. DuoNeb scheduled and as needed for shortness of breath and wheezing. Continue Singulair. 12. BP 121/56. Plan: Hold antihypertensives due to hypotensive nature. Monitor vitals, adjust medications as necessary. 13. Plan: Continue Synthroid 14. Plan: Continue Amitriptyline and Seroquel. 15. Plan: Heparin drip. Protonix IV. Worsening respiratory status. Chest x-ray this morning shows no changes. Concerns for PE. Concerns for ARDS. Continue ventilator support. Continue IV antibiotics. Continue heparin drip. Follow pulmonology and ID recommendations. Cardiology consult for diastolic-systolic CHF exacerbation. Nephrology consulted for worsening renal failure. Prognosis is guarded at this time. DVT prophylaxis: [Heparin drip] Discussed with: [Dr. Sotomayor, Dr. Foy] Anticipated discharge: [Unknown at this time] Anticipated discharge place: [Subacute rehab, home] A total of [60] minutes was spent on the care of this complex patient more than 50% of the time was spent in counseling and care coordination.
[2018-08-07] MEDS: FUROSEMIDE 10 MG/ML 10 ML VIAL IV SCH (09:51)
[2018-08-07] MEDS: fentaNYL (PF) 1,000 MCG in SODIUM CHLORIDE 0.9% 80 ML IV SCH ×2 (09:52→19:05)
--- NOTE | 2018-08-07 09:54 | US ---
EXAMINATION TYPE: US venous doppler duplex LE DATE OF EXAM: 08/07/2018 9:46 AM COMPARISON: Right leg only CLINICAL HISTORY: concerns for DVT. Swelling SIDE PERFORMED: Bilateral TECHNIQUE: The lower extremity deep venous system is examined utilizing real time linear array sonog chelsy with graded compression, doppler sonography and color-flow sonography. VESSELS IMAGED: External Iliac Vein (EIV) Common Femoral Vein Deep Femoral Vein Greater Saphenous Vein * Femoral Vein Popliteal Vein Small Saphenous Vein * Proximal Calf Veins (* superficial vessels) Limited scan due to extensive edema and large, immobile pt on vent in ICU Right Leg: Visualized portions Negative for DVT, distal fem vein and proximal calf veins not visuali zed Probable Glez's cyst right pop fossa= 4.2 x 0.7 x 2.6 cm Left Leg: Visualized portions Negative for DVT, proximal calf veins not visualized IMPRESSION: 1. THIS EXAMINATION IS NEGATIVE FOR DVT IN BOTH LEGS. 2. RIGHT POPLITEAL FOSSA CYST.
--- NOTE | 2018-08-07 09:57 | US ---
EXAMINATION TYPE: US venous doppler duplex UE DATE OF EXAM: 08/07/2018 COMPARISON: NONE CLINICAL HISTORY: concerns for DVT. Swelling SIDE PERFORMED: Bilateral Very limited exam due to large, immobile, vented pt in ICU with multiple IV sites Right Arm: Visualized portions show no evidence of DVT/ Basilic vein, ulnar vein and portions of ceph alic vein not visualized Left Arm: Extremely limited due to pt position, immobility, large size and multiple IV sites/ Visuali zed portions show no evidence of DVT/ Subclavian, basilic, radial, ulnar veins not visualized IMPRESSION: LIMITED STUDY DEMONSTRATING NO EVIDENCE OF DVT IN EITHER ARM.
[2018-08-07] MEDS: SODIUM CHLORIDE 0.9% 1,000 ML IV SCH (10:00)
[2018-08-07] MEDS: POTASSIUM CHLORIDE 20 MEQ in WATER FOR INJECTION 1 100ML.BAG IVPB SCH ×2 (11:45→13:35)
[2018-08-07 11:57] LABS: Glucose,Whole Blood 142 mg/dL (75-99)
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
[2018-08-07] MEDS: HEPARIN SOD,PORK IN 0.45% NACL 25,000 UNIT in 0.45% NACL 1 250ML.BAG IV SCH (13:36)
[2018-08-07] MEDS: FLUCONAZOLE IN NACL,ISO-OSM 100 MG in SALINE 1 50ML.BAG IVPB SCH (14:15)
[2018-08-07 19:03] LABS: Glucose,Whole Blood 130 mg/dL (75-99)
[2018-08-07] MEDS: MONTELUKAST 10 MG TAB PO SCH (20:01)
[2018-08-07] MEDS: AMITRIPTYLINE HCL 50 MG TAB PO SCH (20:02)
[2018-08-07] MEDS: QUEtiapine 200 MG TAB PO SCH (20:02)
[2018-08-07] MEDS: DOCUSATE 100 MG CAP PO SCH (20:02)
[2018-08-07 23:38] LABS: Glucose,Whole Blood 124 mg/dL (75-99)
[2018-08-08] MEDS: methylPREDNISolone SOD SUCCI 125 MG/2 ML VIAL IV SCH ×4 (00:10→17:44)
[2018-08-08] MEDS: CLINDAMYCIN 900 MG in DEXTROSE 5% IN WATER 50 ML IVPB SCH ×6 (00:11→16:07)
[2018-08-08] MEDS: PROPOFOL 1,000 MG in EMPTY BAG 1 BAG IV SCH ×5 (00:31→22:32)
[2018-08-08 03:35] LABS: Anti-Glomerular Basement Memb 7 UNITS (0-20)
[2018-08-08 04:00] LABS: ABG Base Excess -5.8 mmol/L; ABG HCO3 20 mmol/L (21-25); ABG Oxygen Saturation 95.2 % (94-97); ABG PCO2 36 mmHg (35-45); ABG PH 7.35 (7.35-7.45); ABG PO2 79 mmHg (83-108); ABG TCO2 21 mmol/L (19-24)
[2018-08-08] MEDS: SODIUM CHLORIDE 0.9% 1,000 ML IV SCH (04:51)
[2018-08-08 05:02] LABS: Basophils # (A) 0.1 k/uL (0-0.2); Basophils % (A) 1 %; Eosinophils % (A) 0 %; HCT 22.8 % (34.0-46.0); HGB 7.2 gm/dL (11.4-16.0); Hypochromasia Slight; Lymphocytes # (A) 0.6 k/uL (1.0-4.8); Lymphocytes % (A) 4 %; MCHC 31.5 g/dL (31.0-37.0); MCV 91.9 fL (80.0-100.0); Mean Platelet Volume 8.2; Monocytes # (A) 0.3 k/uL (0-1.0); Monocytes % (A) 2 %; Neutrophils # (A) 14.1 k/uL (1.3-7.7); Neutrophils % (A) 93 %; Platelet Count 205 k/uL (150-450); Poikilocytosis Slight; RBC 2.48 m/uL (3.80-5.40); RDW 15.9 % (11.5-15.5); WBC 15.2 k/uL (3.8-10.6)
[2018-08-08] MEDS: fentaNYL (PF) 1,000 MCG in SODIUM CHLORIDE 0.9% 80 ML IV SCH ×2 (05:02→16:08)
[2018-08-08 05:17] LABS: Albumin 2.3 g/dL (3.5-5.0); Calcium 7.2 mg/dL (8.4-10.2); Magnesium 1.6 mg/dL (1.6-2.3); Phosphorus 6.3 mg/dL (2.5-4.5); Potassium 3.7 mmol/L (3.5-5.1); Total Bilirubin 0.8 mg/dL (0.2-1.3); Total Protein 5.4 g/dL (6.3-8.2)
[2018-08-08 06:49] LABS: Glucose,Whole Blood 125 mg/dL (75-99)
[2018-08-08] MEDS: INSULIN ASPART (NovoLOG) 100 UNIT/ML VIAL SQ SCH ×3 (06:50→18:49)
[2018-08-08] MEDS: SYMBICORT 80-4.5 MCG INHALER INHALATION SCH ×2 (07:00→18:17)
[2018-08-08] MEDS: IPRATROPIUM-ALBUTEROL 3 ML NEB INHALATION SCH ×4 (07:00→18:53)
--- NOTE | 2018-08-08 07:16 | XR ---
EXAMINATION TYPE: XR chest 1V portable DATE OF EXAM: 08/08/2018 COMPARISON: 08/07/2018 HISTORY: SOB, Follow Up FINDINGS: Indwelling tubes and catheters are unchanged. Scattered patchy infiltrates persist unchanged from prior study. Stable appearance of the cardio-mediastinal structures at this time. Pleural effusion unchanged. IMPRESSION: 1. Stable portable chest. Clinical correlation and follow up until resolution is recommended.
--- NOTE | 2018-08-08 07:19 | P.PN ---
Subjective Progress Note Date: 08/08/18 Principal diagnosis: Acute hypoxic respiratory failure This is a pleasant 63-year-old female patient who I follow in the office as an outpatient with known history of coronary artery disease and prior coronary artery stenting of the RCA, hypertension, dyslipidemia, as well as multiple psychiatric disorder, initially was admitted to the hospital with what it seems to be pneumonia and subsequently she was coded was PDA and was transferred to the intensive care unit. Currently the patient is intubated and she is on ventilator and the history was taken from her daughter as well as from the nurse taking care of the patient. I just saw the patient in the office last week and she was doing quite well from the cardiovascular standpoint overview. About 4 days ago, the patient was found to be weak as well as slightly confused by her daughter. She was experiencing some cough without any sputum and without any fever or chills. Because of that her daughter brought her to the hospital for further evaluation. Please note that the patient's has been was getting t reated for MRSA in the lower extremities and he was going to do one to clinic for that. The patient initially was admitted to a non-telemetry floor for pneumonia and she was on antibiotic. Yesterday, she was agitated and she was given Ativan but subsequently she developed change in mental status and subsequently she did have PDA. After that the patient was intubated and transferred to the intensive care unit. The patient currently still intubated. She is hemodynamically unstable and requiring quite high dose of Levophed. She is in normal sinus mechanism. The hemoglobin is 7.5, the creatinine is 2.7, and I did review the chest x-ray from the morning which revealed bilateral infiltrate and questionable bilateral pneumonia. There is also a possibility that the patient was aspirated during the cold yesterday. The BNP is 45,000. The echocardiogram revealed moderate to severe tricuspid regurgitation, moderate to severe pulmonary hypertension, and preserved left ventricle systolic function On follow-up with the patient today, 08/08/2018, the patient continues to be continuated on mechanical ventilation. Hemodynamically she continues to be unstable and requiring small dose of Levothroid. The kidney function is worse. Nephrology is on the case. She continues to be on antibiotic for the pneumonia. She is also on aspirin, Plavix, and statin. She is on heparin IV which I don't know why at this point. Objective - Vital Signs Vital signs: Vital Signs Temp 97.4 F L 08/08/18 04:00 Pulse 76 08/08/18 07:01 Resp 28 H 08/08/18 06:00 BP 114/79 08/08/18 02:00 Pulse Ox 96 08/08/18 06:00 Intake & Output 08/07/18 08/08/18 08/08/18 18:59 06:59 18:59 Intake Total 0271.505 4329.032 Output Total 220 350 Balance 1513.366 801.032 Weight 96.4 kg 96.9 kg Intake: IV 480 600 Ceftaroline Fosamil 300 100 50 mg In Sodium Chloride 0.9 % 50 ml @ 100 mls/hr IVPB Q12HR [facility] Rx#:[id number] Clindamycin 900 mg In 200 50 Dextrose 5% in Water 50 ml @ 50 mls/hr IVPB Q8HR [facility] Rx#:[id number] Dextrose 5% in Water 1, 100 000 ml @ 100 mls/hr IV . [id number] [facility] with Sodium Bicarb (1 Meq/ml) 150 ml Rx#:[id number] Sodium Chloride 0.9% 1, 500 000 ml @ 50 mls/hr IV . Q20H [facility] Rx#:[id number] ns for KVO line 80 Intake, IV Titration 1253.366 551.032 Amount Fluconazole in NaCl,Iso- 50 Osm 100 mg In Saline 1 50ml.bag @ 50 mls/hr IVPB DAILY [facility] Rx#:[id number] Heparin Sod,Pork in 0.45% 173.332 NaCl 25,000 unit In 0.45 % NaCl 1 250ml.bag @ 12 UNITS/KG/HR 9.96 mls/hr IV .Q24H [facility] Rx#: [id number] Norepinephrine 4 mg In 118.08 81.529 Sodium Chloride 0.9% 250 ml @ 0.05 MCG/KG/MIN 16. 029 mls/hr IV .[id number] [facility] Rx#:[id number] Potassium Chloride 20 meq 300 In Water For Injection 1 100ml.bag @ 50 mls/hr IVPB Q2H [facility] Rx#: [id number] Propofol 1,000 mg In 311.954 284.736 Empty Bag 1 bag @ Titrate IV .Q0M [facility] Rx#: [id number] Sodium Chloride 0.9% 1, 300 000 ml @ 50 mls/hr IV . Q20H [facility] Rx#:[id number] fentaNYL (PF) 1,000 mcg 184.767 In Sodium Chloride 0.9% 80 ml @ 1 MCG/KG/HR 9.64 mls/hr IV .[id number] [facility] Rx #:[id number] Output: Gastric Drainage 170 Urine 220 180 Other: Voiding Method Indwelling Catheter Indwelling Catheter ABP, PAP, CO, CI - Last Documented Arterial Blood Pressure 112/64 - Constitutional General appearance: Present: no acute distress - Respiratory Respiratory: bilateral: rhonchi - Cardiovascular Rhythm: regular Heart sounds: normal: S1, S2 - Labs CBC & Chem 7: 08/08/18 04:45 08/08/18 04:45 Labs: Abnormal Lab Results - Last 24 Hours (Table) 08/07/18 08/07/18 08/07/18 Range/Units 11:53 19:00 23:36 WBC (3.8-10.6) k/uL RBC (3.80-5.40) m/uL Hgb (11.4-16.0) gm/dL Hct (34.0-46.0) % RDW (11.5-15.5) % Neutrophils # (1.3-7.7) k/uL Lymphocytes # (1.0-4.8) k/uL APTT (22.0-30.0) sec ABG pO2 (83-108) mmHg ABG HCO3 (21-25) mmol/L Carbon Dioxide (22-30) mmol/L BUN (7-17) mg/dL Creatinine (0.52-1.04) mg/dL Glucose (74-99) mg/dL POC Glucose (mg/dL) 142 H 130 H 124 H (75-99) mg/dL Calcium (8.4-10.2) mg/dL Phosphorus (2.5-4.5) mg/dL AST (14-36) U/L Alkaline Phosphatase (38-126) U/L Total Protein (6.3-8.2) g/dL Albumin (3.5-5.0) g/dL 08/08/18 08/08/18 08/08/18 Range/Units 04:01 04:45 04:45 WBC 15.2 H (3.8-10.6) k/uL RBC 2.48 L (3.80-5.40) m/uL Hgb 7.2 L (11.4-16.0) gm/dL Hct 22.8 L (34.0-46.0) % RDW 15.9 H (11.5-15.5) % Neutrophils # 14.1 H (1.3-7.7) k/uL Lymphocytes # 0.6 L (1.0-4.8) k/uL APTT 52.9 H (22.0-30.0) sec ABG pO2 79 L (83-108) mmHg ABG HCO3 20 L (21-25) mmol/L Carbon Dioxide (22-30) mmol/L BUN (7-17) mg/dL Creatinine (0.52-1.04) mg/dL Glucose (74-99) mg/dL POC Glucose (mg/dL) (75-99) mg/dL Calcium (8.4-10.2) mg/dL Phosphorus (2.5-4.5) mg/dL AST (14-36) U/L Alkaline Phosphatase (38-126) U/L Total Protein (6.3-8.2) g/dL Albumin (3.5-5.0) g/dL 08/08/18 08/08/18 Range/Units 04:45 06:46 WBC (3.8-10.6) k/uL RBC (3.80-5.40) m/uL Hgb (11.4-16.0) gm/dL Hct (34.0-46.0) % RDW (11.5-15.5) % Neutrophils # (1.3-7.7) k/uL Lymphocytes # (1.0-4.8) k/uL APTT (22.0-30.0) sec ABG pO2 (83-108) mmHg ABG HCO3 (21-25) mmol/L Carbon Dioxide 20 L (22-30) mmol/L BUN 47 H (7-17) mg/dL Creatinine 4.24 H (0.52-1.04) mg/dL Glucose 119 H (74-99) mg/dL POC Glucose (mg/dL) 125 H (75-99) mg/dL Calcium 7.2 L (8.4-10.2) mg/dL Phosphorus 6.3 H (2.5-4.5) mg/dL AST 137 H (14-36) U/L Alkaline Phosphatase 158 H (38-126) U/L Total Protein 5.4 L (6.3-8.2) g/dL Albumin 2.3 L (3.5-5.0) g/dL Microbiology - Last 24 Hours (Table) 08/06/18 09:30 Acid Fast Bacilli Smear - Final Bronchial Washings - Random Acid Fast Bacilli Culture - Preliminary 08/06/18 10:30 Blood Culture - Preliminary Blood No Growth after 24 hours 08/06/18 09:30 Gram Stain - Preliminary Bronchial Washings - Random Bronchial Washings Culture - Preliminary Inga albicans Yeast species Assessment and Plan Assessment: Assessment #1 acute hypoxic respiratory failure #2 bilateral pneumonia, with MRSA #3 acute renal failure #4 anemia #5 known coronary artery disease and prior coronary artery stenting #6 multiple comorbid conditions. Plan #1 continue hemodynamic support and try to wean the patient from vasopressors #2 she is on antibiotic for the MRSA #3 the echocardiogram was reviewed and described above #4 the patient possibly need to have dialysis for the worsening kidney function #5 I suggest DC the heparin #6 follow-up with the patient
[2018-08-08] MEDS: FLUCONAZOLE IN NACL,ISO-OSM 100 MG in SALINE 1 50ML.BAG IVPB SCH (08:17)
[2018-08-08] MEDS: LEVOTHYROXINE IVP 100 MCG/5 ML VIAL IV SCH (08:18)
[2018-08-08] MEDS: PANTOPRAZOLE 40 MG/10 ML VIAL IVP SCH ×2 (08:18→21:15)
[2018-08-08] MEDS: CEFTAROLINE FOSAMIL IVPB SCH ×2 (08:18→22:21)
[2018-08-08] MEDS: SODIUM CHLORIDE 0.9% IVPB SCH ×2 (08:18→22:21)
[2018-08-08] MEDS: NOREPINEPHRINE 4 MG in SODIUM CHLORIDE 0.9% 250 ML IV SCH (08:19)
[2018-08-08] MEDS: FUROSEMIDE 10 MG/ML 10 ML VIAL IV SCH (08:20)
[2018-08-08 09:46] LABS: Complement C3 71.7 mg/dL (80.0-207.0)
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
[2018-08-08] MEDS: HEPARIN SOD,PORK IN 0.45% NACL 25,000 UNIT in 0.45% NACL 1 250ML.BAG IV SCH (11:19)
[2018-08-08 11:45] LABS: Glucose,Whole Blood 137 mg/dL (75-99)
--- NOTE | 2018-08-08 11:50 | PN ---
PROGRESS NOTE Patient is seen for followup for acute kidney injury. The patient is currently in the ICU. She is intubated. FiO2 is at 55%. Levophed is down to about 4-5 mcg. The patient remains on saline at about 60 mL/hour. Urine output has been on the lower side at about 10 mL an hour. Patient did receive one dose of Lasix at 80 mg earlier this morning. She is maintained on Diprivan as well and IV heparin. Serum creatinine has been increasing. It is up to 4.24 today. PHYSICAL EXAMINATION: Patient is on the vent, sedated. Blood pressure was 114/64, heart rate 76 per minute, she is afebrile. Examination of the heart, S1, S2. Examination of the lungs, bilateral breath sounds are heard. Abdomen is soft, nontender. Examination of the lower extremities shows trace edema bilaterally. CONTACT CENTER CONSULTANT exam is not performed as patient is sedated. LABS: Show sodium 137, potassium 3.7, BUN 47, serum creatinine 4.24, phosphorus 6.3, calcium 7.2. ASSESSMENT: 1. Acute kidney injury, acute tubular necrosis, mostly ischemic, currently oliguric, possibly also related to vancomycin toxicity. UA does show a small amount of blood. Most of the serologies are negative. C3 level was slightly low. Otherwise, SELMA and anti double stranded DNA, and abdominal baseline membrane antibody was negative. Will continue to avoid any nephrotoxic agents. Patient's family is advised that if the renal function continues to deteriorate, patient will need renal replacement therapy. However, at this time there is no indication for dialysis. We will continue to use Lasix to help with the urine output. 2. Hyperphosphatemia from renal failure, add phosphate binders once the patient starts tube feedings. 3. Methicillin resistant Staphylococcus aureus pneumonia, status post vancomycin, maintained on clindamycin currently. 4. Inga albicans and bronchial washings. Maintained on Diflucan. 5. Status post cardiopulmonary arrest. PLAN: Continue normal saline at 50 mL an hour for now. Maintain antibiotics. Continue to avoid nephrotoxic agents and we will evaluate on a daily basis regarding need for renal replacement therapy. No strong evidence of underlying acute GN. MMODL / IJN: [id number] /
--- NOTE | 2018-08-08 11:57 | P.PN ---
Subjective Progress Note Date: 08/07/18 Principal diagnosis: Left upper lobe pneumonia The patient did have significant change in her clinical condition has patient did have a cardiac arrest the patient subsequently has been resuscitated and currently intubated on the vent in the ICU, the patient did have significant secretions at the time of intubation per RN, however those has improved, patient did require pressor support yesterday but currently off pressors, the patient also status post bronchoscopy yesterday Objective - Vital Signs Vital signs: Vital Signs Temp 98.8 F 08/07/18 16:00 Pulse 78 08/07/18 19:15 Resp 28 H 08/07/18 19:00 BP 114/79 08/07/18 19:00 Pulse Ox 98 08/07/18 19:00 Intake & Output 08/07/18 08/07/18 08/08/18 06:59 18:59 06:59 Intake Total 2428.582 1733.366 226.796 Output Total 95 220 Balance 2333.582 1513.366 226.796 Weight 96.4 kg 96.4 kg Intake: IV 1440 480 Ceftaroline Fosamil 300 50 100 mg In Sodium Chloride 0.9 % 50 ml @ 100 mls/hr IVPB Q12HR [facility] Rx#:[id number] Clindamycin 900 mg In 50 200 Dextrose 5% in Water 50 ml @ 50 mls/hr IVPB Q8HR [facility] Rx#:[id number] Dextrose 5% in Water 1, 1000 000 ml @ 100 mls/hr IV . Q11H [facility] with Sodium Bicarb (1 Meq/ml) 100 ml Rx#:[id number] Dextrose 5% in Water 1, 100 100 000 ml @ 100 mls/hr IV . [id number] [facility] with Sodium Bicarb (1 Meq/ml) 150 ml Rx#:[id number] ns for KVO line 240 80 Intake, IV Titration 162.058 0840.366 226.796 Amount Fluconazole in NaCl,Iso- 50 Osm 100 mg In Saline 1 50ml.bag @ 50 mls/hr IVPB DAILY [facility] Rx#:[id number] Heparin Sod,Pork in 0.45% 75.862 173.332 NaCl 25,000 unit In 0.45 % NaCl 1 250ml.bag @ 12 UNITS/KG/HR 9.96 mls/hr IV .Q24H [facility] Rx#: [id number] Norepinephrine 4 mg In 562.391 118.08 72.877 Sodium Chloride 0.9% 250 ml @ 0.05 MCG/KG/MIN 16. 029 mls/hr IV .[id number] [facility] Rx#:[id number] Potassium Chloride 20 meq 300 In Water For Injection 1 100ml.bag @ 50 mls/hr IVPB Q2H [facility] Rx#: [id number] Propofol 1,000 mg In 350.329 311.954 65.07 Empty Bag 1 bag @ Titrate IV .Q0M [facility] Rx#: [id number] Sodium Chloride 0.9% 1, 300 000 ml @ 50 mls/hr IV . Q20H [facility] Rx#:[id number] fentaNYL (PF) 1,000 mcg 88.849 In Sodium Chloride 0.9% 80 ml @ 1 MCG/KG/HR 9.64 mls/hr IV .[id number] [facility] Rx #:[id number] Output: Urine 95 220 Other: Voiding Method Indwelling Catheter Indwelling Catheter ABP, PAP, CO, CI - Last Documented Arterial Blood Pressure 122/62 - Exam GENERAL DESCRIPTION:[ Middle-aged female intubated on the vent] HEENT: [Patient is orally intubated and limited examination of the oral cavity] EYES : [No pallor or scleral icterus] RESPIRATORY SYSTEM: [Unlabored breathing decreased breath sound at the base] CARDIA VASCULAR SYSTEM: [S1-S2 regular rate and rhythm no murmur] GI: [Abdominal soft there's no tenderness no organomegaly] EXTREMITIES: [No edema feet] - Labs CBC & Chem 7: 08/08/18 04:45 08/08/18 04:45 Labs: Abnormal Lab Results - Last 24 Hours (Table) 08/06/18 08/07/18 08/07/18 Range/Units 21:00 04:45 04:45 WBC 22.3 H (3.8-10.6) k/uL RBC 2.57 L (3.80-5.40) m/uL Hgb 7.4 L (11.4-16.0) gm/dL Hct 23.8 L (34.0-46.0) % RDW 15.9 H (11.5-15.5) % Neutrophils # 21.5 H (1.3-7.7) k/uL Lymphocytes # 0.4 L (1.0-4.8) k/uL APTT 42.0 H (22.0-30.0) sec ABG pO2 (83-108) mmHg ABG O2 Saturation (94-97) % Potassium 3.4 L (3.5-5.1) mmol/L Carbon Dioxide 21 L (22-30) mmol/L BUN 33 H (7-17) mg/dL Creatinine 3.63 H (0.52-1.04) mg/dL Glucose 144 H (74-99) mg/dL POC Glucose (mg/dL) (75-99) mg/dL Calcium 7.3 L (8.4-10.2) mg/dL Magnesium 1.5 L (1.6-2.3) mg/dL 08/07/18 08/07/18 08/07/18 Range/Units 04:45 04:47 05:09 WBC (3.8-10.6) k/uL RBC (3.80-5.40) m/uL Hgb (11.4-16.0) gm/dL Hct (34.0-46.0) % RDW (11.5-15.5) % Neutrophils # (1.3-7.7) k/uL Lymphocytes # (1.0-4.8) k/uL APTT 61.9 H (22.0-30.0) sec ABG pO2 120 H (83-108) mmHg ABG O2 Saturation 98.9 H (94-97) % Potassium (3.5-5.1) mmol/L Carbon Dioxide (22-30) mmol/L BUN (7-17) mg/dL Creatinine (0.52-1.04) mg/dL Glucose (74-99) mg/dL POC Glucose (mg/dL) 158 H (75-99) mg/dL Calcium (8.4-10.2) mg/dL Magnesium (1.6-2.3) mg/dL 08/07/18 08/07/18 08/07/18 Range/Units 05:42 11:53 19:00 WBC (3.8-10.6) k/uL RBC (3.80-5.40) m/uL Hgb (11.4-16.0) gm/dL Hct (34.0-46.0) % RDW (11.5-15.5) % Neutrophils # (1.3-7.7) k/uL Lymphocytes # (1.0-4.8) k/uL APTT (22.0-30.0) sec ABG pO2 (83-108) mmHg ABG O2 Saturation (94-97) % Potassium (3.5-5.1) mmol/L Carbon Dioxide (22-30) mmol/L BUN (7-17) mg/dL Creatinine (0.52-1.04) mg/dL Glucose (74-99) mg/dL POC Glucose (mg/dL) 153 H 142 H 130 H (75-99) mg/dL Calcium (8.4-10.2) mg/dL Magnesium (1.6-2.3) mg/dL Microbiology - Last 24 Hours (Table) 08/06/18 10:30 Blood Culture - Preliminary Blood No Growth after 24 hours 08/06/18 09:30 Gram Stain - Preliminary Bronchial Washings - Random Bronchial Washings Culture - Preliminary Inga albicans Yeast species 07/31/18 19:41 Blood Culture - Final Blood No Growth after 144 hours 08/06/18 09:30 Acid Fast Bacilli Culture - Preliminary Bronchial Washings - Random 08/06/18 09:30 Fungal Culture - Preliminary Bronchial Washings - Random Assessment and Plan Assessment: 1-patient with left upper lobe pneumonia with a sputum culture has been finaliz ed as MRSA , subsequent worsening of her clinical condition and cardiac arrest and status post resuscitation and intubation as well as bronchoscopy 2-patient is on SSRI contraindicating the use of Zyvox which could have been ideal antibiotic choice for her 3-patient with renal failure (1) Sepsis Current Visit: Yes Status: Acute Code(s): A41.9 - SEPSIS, UNSPECIFIED ORGANISM SNOMED Code(s): 91991016 (2) Nosocomial pneumonia Current Visit: Yes Status: Acute Code(s): J18.9 - PNEUMONIA, UNSPECIFIED ORGANISM; Y95 - NOSOCOMIAL CONDITION SNOMED Code(s): 554654830 Plan: 1- the patient on Teflaro 300 mg twice a day , with clindamycin and Diflucan has been added those will be continued While waiting for the condition to stabilize and bronchoscopy cultures to finalize Time with Patient: Less than 30
[2018-08-08] MEDS: CLOPIDOGREL 75 MG TAB PO SCH (12:03)
[2018-08-08] MEDS: ATORVASTATIN 20 MG TAB PO SCH (12:03)
[2018-08-08] MEDS: FOLIC ACID 1 MG TAB PO SCH (12:03)
[2018-08-08] MEDS: ASPIRIN 81 MG PO SCH (12:03)
[2018-08-08] MEDS: SERTRALINE 100 MG TAB PO SCH (12:04)
[2018-08-08] MEDS ORDERED: LACTULOSE 20 GM/30 ML CUP PO ONE (12:15)
[2018-08-08] MEDS: CHLORHEXIDINE GLUCONATE 15 ML CUP MUCOUS MEM SCH ×2 (12:17→21:15)
[2018-08-08 14:41] LABS: C-ANCA <1:20 Titer (<1:20); P-ANCA <1:20 Titer (<1:20)
[2018-08-08 18:50] LABS: Glucose,Whole Blood 132 mg/dL (75-99)
--- NOTE | 2018-08-08 19:54 | P.PN ---
Subjective Progress Note Date: 08/08/18 Principal diagnosis: Left upper lobe pneumonia The patient is currently afebrile, the patient is hemodynamically stable not requiring any pressor support the patient FiO2 is stable , patient seemed to have improvement in her urine output , no diarrhea has been reported Objective - Vital Signs Vital signs: Vital Signs Temp 97.6 F 08/08/18 09:00 Pulse 68 08/08/18 11:30 Resp 28 H 08/08/18 11:00 BP 114/79 08/08/18 11:00 Pulse Ox 97 08/08/18 11:00 Intake & Output 08/07/18 08/08/18 08/08/18 18:59 06:59 18:59 Intake Total 1856.332 5108.032 392.666 Output Total 220 360 10 Balance 1513.366 841.032 382.666 Weight 96.4 kg 96.9 kg Intake: IV 480 650 50 Ceftaroline Fosamil 300 100 50 mg In Sodium Chloride 0.9 % 50 ml @ 100 mls/hr IVPB Q12HR [facility] Rx#:[id number] Clindamycin 900 mg In 200 50 Dextrose 5% in Water 50 ml @ 50 mls/hr IVPB Q8HR [facility] Rx#:[id number] Dextrose 5% in Water 1, 100 000 ml @ 100 mls/hr IV . [id number] [facility] with Sodium Bicarb (1 Meq/ml) 150 ml Rx#:[id number] Sodium Chloride 0.9% 1, 550 50 000 ml @ 50 mls/hr IV . Q20H [facility] Rx#:[id number] ns for KVO line 80 Intake, IV Titration 1253.366 551.032 342.666 Amount Fluconazole in NaCl,Iso- 50 Osm 100 mg In Saline 1 50ml.bag @ 50 mls/hr IVPB DAILY [facility] Rx#:[id number] Heparin Sod,Pork in 0.45% 173.332 250 NaCl 25,000 unit In 0.45 % NaCl 1 250ml.bag @ 12 UNITS/KG/HR 9.96 mls/hr IV .Q24H [facility] Rx#: [id number] Norepinephrine 4 mg In 118.08 81.529 Sodium Chloride 0.9% 250 ml @ 0.05 MCG/KG/MIN 16. 029 mls/hr IV .[id number] [facility] Rx#:[id number] Potassium Chloride 20 meq 300 In Water For Injection 1 100ml.bag @ 50 mls/hr IVPB Q2H [facility] Rx#: [id number] Propofol 1,000 mg In 311.954 284.736 92.666 Empty Bag 1 bag @ Titrate IV .Q0M [facility] Rx#: [id number] Sodium Chloride 0.9% 1, 300 000 ml @ 50 mls/hr IV . Q20H [facility] Rx#:[id number] fentaNYL (PF) 1,000 mcg 184.767 In Sodium Chloride 0.9% 80 ml @ 1 MCG/KG/HR 9.64 mls/hr IV .[id number] [facility] Rx #:[id number] Output: Gastric Drainage 170 Urine 220 190 10 Other: Voiding Method Indwelling Catheter Indwelling Catheter Indwelling Catheter ABP, PAP, CO, CI - Last Documented Arterial Blood Pressure 118/61 - Exam GENERAL DESCRIPTION:[ Middle-aged female intubated on the vent] HEENT: [Patient is orally intubated and limited examination of the oral cavity] EYES : [No pallor or scleral icterus] RESPIRATORY SYSTEM: [Unlabored breathing decreased breath sound at the base] CARDIA VASCULAR SYSTEM: [S1-S2 regular rate and rhythm no murmur] GI: [Abdominal soft there's no tenderness no organomegaly] EXTREMITIES: [No edema feet] - Labs CBC & Chem 7: 08/08/18 04:45 08/08/18 04:45 Labs: Abnormal Lab Results - Last 24 Hours (Table) 08/06/18 08/07/18 08/07/18 Range/Units 10:30 11:53 19:00 WBC (3.8-10.6) k/uL RBC (3.80-5.40) m/uL Hgb (11.4-16.0) gm/dL Hct (34.0-46.0) % RDW (11.5-15.5) % Neutrophils # (1.3-7.7) k/uL Lymphocytes # (1.0-4.8) k/uL APTT (22.0-30.0) sec ABG pO2 (83-108) mmHg ABG HCO3 (21-25) mmol/L Carbon Dioxide (22-30) mmol/L BUN (7-17) mg/dL Creatinine (0.52-1.04) mg/dL Glucose (74-99) mg/dL POC Glucose (mg/dL) 142 H 130 H (75-99) mg/dL Calcium (8.4-10.2) mg/dL Phosphorus (2.5-4.5) mg/dL AST (14-36) U/L Alkaline Phosphatase (38-126) U/L Total Protein (6.3-8.2) g/dL Albumin (3.5-5.0) g/dL Complement C3 71.7 L (80.0-207.0) mg/dL 08/07/18 08/08/18 08/08/18 Range/Units 23:36 04:01 04:45 WBC 15.2 H (3.8-10.6) k/uL RBC 2.48 L (3.80-5.40) m/uL Hgb 7.2 L (11.4-16.0) gm/dL Hct 22.8 L (34.0-46.0) % RDW 15.9 H (11.5-15.5) % Neutrophils # 14.1 H (1.3-7.7) k/uL Lymphocytes # 0.6 L (1.0-4.8) k/uL APTT (22.0-30.0) sec ABG pO2 79 L (83-108) mmHg ABG HCO3 20 L (21-25) mmol/L Carbon Dioxide (22-30) mmol/L BUN (7-17) mg/dL Creatinine (0.52-1.04) mg/dL Glucose (74-99) mg/dL POC Glucose (mg/dL) 124 H (75-99) mg/dL Calcium (8.4-10.2) mg/dL Phosphorus (2.5-4.5) mg/dL AST (14-36) U/L Alkaline Phosphatase (38-126) U/L Total Protein (6.3-8.2) g/dL Albumin (3.5-5.0) g/dL Complement C3 (80.0-207.0) mg/dL 08/08/18 08/08/18 08/08/18 Range/Units 04:45 04:45 06:46 WBC (3.8-10.6) k/uL RBC (3.80-5.40) m/uL Hgb (11.4-16.0) gm/dL Hct (34.0-46.0) % RDW (11.5-15.5) % Neutrophils # (1.3-7.7) k/uL Lymphocytes # (1.0-4.8) k/uL APTT 52.9 H (22.0-30.0) sec ABG pO2 (83-108) mmHg ABG HCO3 (21-25) mmol/L Carbon Dioxide 20 L (22-30) mmol/L BUN 47 H (7-17) mg/dL Creatinine 4.24 H (0.52-1.04) mg/dL Glucose 119 H (74-99) mg/dL POC Glucose (mg/dL) 125 H (75-99) mg/dL Calcium 7.2 L (8.4-10.2) mg/dL Phosphorus 6.3 H (2.5-4.5) mg/dL AST 137 H (14-36) U/L Alkaline Phosphatase 158 H (38-126) U/L Total Protein 5.4 L (6.3-8.2) g/dL Albumin 2.3 L (3.5-5.0) g/dL Complement C3 (80.0-207.0) mg/dL 08/08/18 Range/Units 11:41 WBC (3.8-10.6) k/uL RBC (3.80-5.40) m/uL Hgb (11.4-16.0) gm/dL Hct (34.0-46.0) % RDW (11.5-15.5) % Neutrophils # (1.3-7.7) k/uL Lymphocytes # (1.0-4.8) k/uL APTT (22.0-30.0) sec ABG pO2 (83-108) mmHg ABG HCO3 (21-25) mmol/L Carbon Dioxide (22-30) mmol/L BUN (7-17) mg/dL Creatinine (0.52-1.04) mg/dL Glucose (74-99) mg/dL POC Glucose (mg/dL) 137 H (75-99) mg/dL Calcium (8.4-10.2) mg/dL Phosphorus (2.5-4.5) mg/dL AST (14-36) U/L Alkaline Phosphatase (38-126) U/L Total Protein (6.3-8.2) g/dL Albumin (3.5-5.0) g/dL Complement C3 (80.0-207.0) mg/dL Microbiology - Last 24 Hours (Table) 08/06/18 09:30 Acid Fast Bacilli Smear - Final Bronchial Washings - Random Acid Fast Bacilli Culture - Preliminary 08/06/18 10:30 Blood Culture - Preliminary Blood No Growth after 24 hours 08/06/18 09:30 Gram Stain - Preliminary Bronchial Washings - Random Bronchial Washings Culture - Preliminary Inga albicans Yeast species Assessment and Plan Assessment: 1-patient with left upper lobe pneumonia with a sputum culture has been finalized as MRSA , subsequent worsening of her clinical condition and cardiac arrest and status post resuscitation and intubation as well as bro nchoscopy----bronchoscopy cultures are currently pending 2-patient is on SSRI contraindicating the use of Zyvox 3-patient with renal failure with some improvement in urine output (1) Sepsis Current Visit: Yes Status: Acute Code(s): A41.9 - SEPSIS, UNSPECIFIED ORGANISM SNOMED Code(s): 82327430 (2) Nosocomial pneumonia Current Visit: Yes Status: Acute Code(s): J18.9 - PNEUMONIA, UNSPECIFIED ORGANISM; Y95 - NOSOCOMIAL CONDITION SNOMED Code(s): 648196577 Plan: 1- the patient on Teflaro 200 mg twice a day dose has been adjusted to kidney function, along with clindamycin 600 every 8 hours and Diflucan has been added those will be continued While waiting for the condition to stabilize and bronchoscopy cultures to finalize. Family at the bedside the question and concerns were answered Time with Patient: Less than 30
[2018-08-08] MEDS: AMITRIPTYLINE HCL 50 MG TAB PO SCH (20:55)
[2018-08-08] MEDS ORDERED: FUROSEMIDE 10 MG/ML 10 ML VIAL IV STA (21:10)
[2018-08-08] MEDS: DOCUSATE 100 MG CAP PO SCH (21:12)
[2018-08-08] MEDS: QUEtiapine 200 MG TAB PO SCH (21:12)
[2018-08-08] MEDS: MONTELUKAST 10 MG TAB PO SCH (21:12)
[2018-08-09] MEDS: INSULIN ASPART (NovoLOG) 100 UNIT/ML VIAL SQ SCH ×4 (00:01→17:41)
[2018-08-09 00:03] LABS: Glucose,Whole Blood 125 mg/dL (75-99)
[2018-08-09] MEDS: CLINDAMYCIN 900 MG in DEXTROSE 5% IN WATER 50 ML IVPB SCH ×4 (00:10→10:03)
[2018-08-09] MEDS: methylPREDNISolone SOD SUCCI 125 MG/2 ML VIAL IV SCH ×4 (00:10→17:38)
[2018-08-09] MEDS: SODIUM CHLORIDE 0.9% 1,000 ML IV SCH (00:11)
[2018-08-09] MEDS: fentaNYL (PF) 1,000 MCG in SODIUM CHLORIDE 0.9% 80 ML IV SCH ×2 (01:44→10:36)
[2018-08-09] MEDS: PROPOFOL 1,000 MG in EMPTY BAG 1 BAG IV SCH ×2 (04:39→08:10)
[2018-08-09 05:22] LABS: Anisocytosis Slight; Basophils % (A) 0 %; Eosinophils % (A) 0 %; HCT 23.9 % (34.0-46.0); HGB 7.3 gm/dL (11.4-16.0); Hypochromasia Moderate; Lymphocytes # (A) 0.6 k/uL (1.0-4.8); Lymphocytes % (A) 3 %; MCH 28.5 pg (25.0-35.0); MCHC 30.6 g/dL (31.0-37.0); MCV 92.9 fL (80.0-100.0); Mean Platelet Volume 7.6; Monocytes # (A) 0.4 k/uL (0-1.0); Monocytes % (A) 2 %; Neutrophils # (A) 16.7 k/uL (1.3-7.7); Neutrophils % (A) 94 %; Platelet Count 239 k/uL (150-450); RBC 2.57 m/uL (3.80-5.40); RDW 16.6 % (11.5-15.5); WBC 17.8 k/uL (3.8-10.6)
[2018-08-09 06:20] LABS: Albumin 2.1 g/dL (3.5-5.0); Calcium 6.8 mg/dL (8.4-10.2); Magnesium 1.8 mg/dL (1.6-2.3); Phosphorus 7.7 mg/dL (2.5-4.5); Total Bilirubin 0.7 mg/dL (0.2-1.3); Total Protein 4.9 g/dL (6.3-8.2)
[2018-08-09 06:36] LABS: Glucose,Whole Blood 131 mg/dL (75-99)
[2018-08-09 07:06] LABS: ABG Base Excess -8.4 mmol/L; ABG HCO3 18 mmol/L (21-25); ABG Oxygen Saturation 98.7 % (94-97); ABG PCO2 36 mmHg (35-45); ABG PH 7.31 (7.35-7.45); ABG PO2 134 mmHg (83-108); ABG TCO2 19 mmol/L (19-24)
--- NOTE | 2018-08-09 07:19 | P.PN ---
Subjective Progress Note Date: 08/09/18 Principal diagnosis: Acute hypoxic respiratory failure This is a pleasant 63-year-old female patient who I follow in the office as an outpatient with known history of coronary artery disease and prior coronary artery stenting of the RCA, hypertension, dyslipidemia, as well as multiple psychiatric disorder, initially was admitted to the hospital with what it seems to be pneumonia and subsequently she was coded was PDA and was transferred to the intensive care unit. Currently the patient is intubated and she is on ventilator and the history was taken from her daughter as well as from the nurse taking care of the patient. I just saw the patient in the office last week and she was doing quite well from the cardiovascular standpoint overview. About 4 days ago, the patient was found to be weak as well as slightly confused by her daughter. She was experiencing some cough without any sputum and without any fever or chills. Because of that her daughter brought her to the hospital for further evaluation. Please note that the patient's has been was getting t reated for MRSA in the lower extremities and he was going to do one to clinic for that. The patient initially was admitted to a non-telemetry floor for pneumonia and she was on antibiotic. Yesterday, she was agitated and she was given Ativan but subsequently she developed change in mental status and subsequently she did have PDA. After that the patient was intubated and transferred to the intensive care unit. The patient currently still intubated. She is hemodynamically unstable and requiring quite high dose of Levophed. She is in normal sinus mechanism. The hemoglobin is 7.5, the creatinine is 2.7, and I did review the chest x-ray from the morning which revealed bilateral infiltrate and questionable bilateral pneumonia. There is also a possibility that the patient was aspirated during the cold yesterday. The BNP is 45,000. The echocardiogram revealed moderate to severe tricuspid regurgitation, moderate to severe pulmonary hypertension, and preserved left ventricle systolic function On follow-up with the patient today, 08/09/2018, the patient continues to be continuated on mechanical ventilation. Hemodynamically she continues to be unstable and requiring small dose of . The norepinephrinekidney function is worse. Nephrology is on the case. She continues to be on antibiotic for the pneumonia. She is also on aspirin, Plavix, and statin. The IV heparin was stopped yesterday which I would agree with. The patient has been diuresing very well overnight. She is on Lasix IV. Objective - Vital Signs Vital signs: Vital Signs Temp 97.5 F L 08/08/18 20:00 Pulse 76 08/09/18 07:00 Resp 28 H 08/09/18 07:00 BP 114/79 08/09/18 00:00 Pulse Ox 98 08/09/18 07:00 Intake & Output 08/08/18 08/09/18 08/09/18 18:59 06:59 18:59 Intake Total 6395.636 2738.985 319.044 Output Total 250 280 25 Balance 5152.046 0221.985 294.044 Weight 96.9 kg Intake: IV 600 650 50 Ceftaroline Fosamil 300 50 50 mg In Sodium Chloride 0.9 % 50 ml @ 100 mls/hr IVPB Q12HR [facility] Rx#:[id number] Clindamycin 900 mg In 150 50 Dextrose 5% in Water 50 ml @ 50 mls/hr IVPB Q8HR [facility] Rx#:[id number] Sodium Chloride 0.9% 1, 400 550 50 000 ml @ 50 mls/hr IV . Q20H [facility] Rx#:[id number] Intake, IV Titration 694.356 399.985 231.044 Amount Fluconazole in NaCl,Iso- 50 Osm 100 mg In Saline 1 50ml.bag @ 50 mls/hr IVPB DAILY [facility] Rx#:[id number] Heparin Sod,Pork in 0.45% 250 231.044 NaCl 25,000 unit In 0.45 % NaCl 1 250ml.bag @ 12 UNITS/KG/HR 9.96 mls/hr IV .Q24H [facility] Rx#: [id number] Norepinephrine 4 mg In 75.333 105.309 Sodium Chloride 0.9% 250 ml @ 0.05 MCG/KG/MIN 16. 029 mls/hr IV .[id number] [facility] Rx#:[id number] Propofol 1,000 mg In 219.023 202.132 Empty Bag 1 bag @ Titrate IV .Q0M [facility] Rx#: [id number] fentaNYL (PF) 1,000 mcg 100 92.544 In Sodium Chloride 0.9% 80 ml @ 1 MCG/KG/HR 9.64 mls/hr IV .[id number] [facility] Rx #:[id number] Tube Feeding 75 364 38 Other 90 Output: Urine 250 280 25 Other: Voiding Method Indwelling Catheter Indwelling Catheter ABP, PAP, CO, CI - Last Documented Arterial Blood Pressure 107/52 - Constitutional General appearance: Present: no acute distress - Respiratory Respiratory: bilateral: diminished - Cardiovascular Rhythm: regular Heart sounds: normal: S1, S2 - Labs CBC & Chem 7: 08/09/18 00:45 08/09/18 00:45 Labs: Abnormal Lab Results - Last 24 Hours (Table) 08/06/18 08/08/18 08/08/18 Range/Units 10:30 11:41 18:47 WBC (3.8-10.6) k/uL RBC (3.80-5.40) m/uL Hgb (11.4-16.0) gm/dL Hct (34.0-46.0) % MCHC (31.0-37.0) g/dL RDW (11.5-15.5) % Neutrophils # (1.3-7.7) k/uL Lymphocytes # (1.0-4.8) k/uL APTT (22.0-30.0) sec ABG pH (7.35-7.45) ABG pO2 (83-108) mmHg ABG HCO3 (21-25) mmol/L ABG O2 Saturation (94-97) % Carbon Dioxide (22-30) mmol/L BUN (7-17) mg/dL Creatinine (0.52-1.04) mg/dL Glucose (74-99) mg/dL POC Glucose (mg/dL) 137 H 132 H (75-99) mg/dL Calcium (8.4-10.2) mg/dL Phosphorus (2.5-4.5) mg/dL AST (14-36) U/L Alkaline Phosphatase (38-126) U/L Total Protein (6.3-8.2) g/dL Albumin (3.5-5.0) g/dL Complement C3 71.7 L (80.0-207.0) mg/dL 08/08/18 08/09/18 08/09/18 Range/Units 23:59 00:45 00:45 WBC 17.8 H (3.8-10.6) k/uL RBC 2.57 L (3.80-5.40) m/uL Hgb 7.3 L (11.4-16.0) gm/dL Hct 23.9 L (34.0-46.0) % MCHC 30.6 L (31.0-37.0) g/dL RDW 16.6 H (11.5-15.5) % Neutrophils # 16.7 H (1.3-7.7) k/uL Lymphocytes # 0.6 L (1.0-4.8) k/uL APTT (22.0-30.0) sec ABG pH (7.35-7.45) ABG pO2 (83-108) mmHg ABG HCO3 (21-25) mmol/L ABG O2 Saturation (94-97) % Carbon Dioxide 17 L (22-30) mmol/L BUN 62 H (7-17) mg/dL Creatinine 4.51 H (0.52-1.04) mg/dL Glucose 127 H (74-99) mg/dL POC Glucose (mg/dL) 125 H (75-99) mg/dL Calcium 6.8 L (8.4-10.2) mg/dL Phosphorus 7.7 H (2.5-4.5) mg/dL AST 95 H (14-36) U/L Alkaline Phosphatase 163 H (38-126) U/L Total Protein 4.9 L (6.3-8.2) g/dL Albumin 2.1 L (3.5-5.0) g/dL Complement C3 (80.0-207.0) mg/dL 08/09/18 08/09/18 08/09/18 Range/Units 00:45 06:22 07:03 WBC (3.8-10.6) k/uL RBC (3.80-5.40) m/uL Hgb (11.4-16.0) gm/dL Hct (34.0-46.0) % MCHC (31.0-37.0) g/dL RDW (11.5-15.5) % Neutrophils # (1.3-7.7) k/uL Lymphocytes # (1.0-4.8) k/uL APTT 46.1 H (22.0-30.0) sec ABG pH 7.31 L (7.35-7.45) ABG pO2 134 H (83-108) mmHg ABG HCO3 18 L (21-25) mmol/L ABG O2 Saturation 98.7 H (94-97) % Carbon Dioxide (22-30) mmol/L BUN (7-17) mg/dL Creatinine (0.52-1.04) mg/dL Glucose (74-99) mg/dL POC Glucose (mg/dL) 131 H (75-99) mg/dL Calcium (8.4-10.2) mg/dL Phosphorus (2.5-4.5) mg/dL AST (14-36) U/L Alkaline Phosphatase (38-126) U/L Total Protein (6.3-8.2) g/dL Albumin (3.5-5.0) g/dL Complement C3 (80.0-207.0) mg/dL Microbiology - Last 24 Hours (Table) 08/06/18 09:30 Fungal Culture - Preliminary Bronchial Washings - Random Inga albicans 08/06/18 09:30 Gram Stain - Final Bronchial Washings - Random Bronchial Washings Culture - Final Inga albicans Inga glabrata 08/06/18 10:30 Blood Culture - Preliminary Blood No Growth after 48 hours Assessment and Plan Assessment: Assessment #1 acute hypoxic respiratory failure #2 bilateral pneumonia, with MRSA #3 acute renal failure #4 anemia #5 known coronary artery disease and prior coronary artery stenting #6 multiple comorbid conditions. Plan #1 continue hemodynamic support and try to wean the patient from vasopressors #2 she is on antibiotic for the MRSA #3 the echocardiogram was reviewed and described above #4 the patient possibly need to have dialysis for the worsening kidney function #5 follow-up with the patient
[2018-08-09] MEDS: IPRATROPIUM-ALBUTEROL 3 ML NEB INHALATION SCH ×4 (07:34→19:08)
--- NOTE | 2018-08-09 08:25 | XR ---
EXAMINATION TYPE: XR chest 1V portable DATE OF EXAM: 08/09/2018 COMPARISON: 08/08/2018 INDICATION: Difficulty breathing, line placement TECHNIQUE: Single frontal view of the chest is obtained. FINDINGS: The heart size is moderately prominent. The pulmonary vasculature is prominent. There is diffuse increased lung markings bilaterally compatible pulmonary edema. Findings are similar to comparison. Endotracheal tube is place with the tip above the rebeca. Nasogastric tube transverses the thorax. Le ft central venous catheter is present with the tip in the superior vena cava region. No pneumothorax is evident. IMPRESSION: 1. Correlate for pulmonary edema. Findings are stable from comparison.
[2018-08-09] MEDS: CLOPIDOGREL 75 MG TAB PO SCH (10:03)
[2018-08-09] MEDS: FLUCONAZOLE IN NACL,ISO-OSM 100 MG in SALINE 1 50ML.BAG IVPB SCH (10:04)
[2018-08-09] MEDS: CHLORHEXIDINE GLUCONATE 15 ML CUP MUCOUS MEM SCH ×2 (10:05→20:12)
[2018-08-09] MEDS: ATORVASTATIN 20 MG TAB PO SCH (10:05)
[2018-08-09] MEDS: LEVOTHYROXINE IVP 100 MCG/5 ML VIAL IV SCH (10:05)
[2018-08-09] MEDS: FOLIC ACID 1 MG TAB PO SCH (10:05)
[2018-08-09] MEDS: ASPIRIN 81 MG PO SCH (10:05)
[2018-08-09] MEDS: FUROSEMIDE 10 MG/ML 10 ML VIAL IV SCH ×2 (10:06→20:12)
[2018-08-09] MEDS: PANTOPRAZOLE 40 MG/10 ML VIAL IVP SCH ×2 (10:06→20:12)
[2018-08-09] MEDS: SERTRALINE 100 MG TAB PO SCH (11:24)
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
[2018-08-09 11:57] LABS: Glucose,Whole Blood 139 mg/dL (75-99)
--- NOTE | 2018-08-09 12:22 | P.PN ---
Subjective Pt was initially admitted on 07/31/18 with working diagnosis of DONAVON pneumonia and started on vanco and Zosyn. Shortly after admission she went into PEA arrest and was resuscitated and transferred to ICU. She was started on Levophed. Since then the Levophed dose has been decreased and today is at minimal. She has had worsening renal function with rising creatinine and increasing peripheral edema. Nephrology has been seeing the patient for possible [employer]. Over the last 48 hrs her urine output incresed and was about 30 cc/hr over night and nephrology started IV Lasix 80 mg IVP daily. CXR showed bilateral infiltrates, pulmonary edema, vs PNA, vs ARDS possible aspiration. Her ventilator needs have been stable but she did required sedation due to ET tube biting. Echo showed preserved EF and moderate to severe pulmonary hypertension. Renal US was unremarkable. Doppler LE did not show any DVT. pt has remained on heparin drip. Bronchospcy sample grew inga albicans and inga glabrata. Sputum cx: MRSA and Inga. Id started Ceftaroline and pulmo added Fluconasole. Cardiology evaluated and felt no active cardiac issues. Objective - Vital Signs Vital signs: Vital Signs Temp 97.5 F L 08/08/18 20:00 Pulse 77 08/09/18 07:59 Resp 28 H 08/09/18 07:00 BP 114/79 08/09/18 00:00 Pulse Ox 98 08/09/18 07:00 Intake & Output 08/08/18 08/09/18 08/09/18 18:59 06:59 18:59 Intake Total 3066.959 9635.985 319.044 Output Total 250 280 25 Balance 8538.936 2350.985 294.044 Weight 96.9 kg 96.3 kg Intake: IV 600 650 50 Ceftaroline Fosamil 300 50 50 mg In Sodium Chloride 0.9 % 50 ml @ 100 mls/hr IVPB Q12HR [facility] Rx#:[id number] Clindamycin 900 mg In 150 50 Dextrose 5% in Water 50 ml @ 50 mls/hr IVPB Q8HR [facility] Rx#:[id number] Sodium Chloride 0.9% 1, 400 550 50 000 ml @ 50 mls/hr IV . Q20H [facility] Rx#:[id number] Intake, IV Titration 694.356 399.985 231.044 Amount Fluconazole in NaCl,Iso- 50 Osm 100 mg In Saline 1 50ml.bag @ 50 mls/hr IVPB DAILY [facility] Rx#:[id number] Heparin Sod,Pork in 0.45% 250 231.044 NaCl 25,000 unit In 0.45 % NaCl 1 250ml.bag @ 12 UNITS/KG/HR 9.96 mls/hr IV .Q24H [facility] Rx#: [id number] Norepinephrine 4 mg In 75.333 105.309 Sodium Chloride 0.9% 250 ml @ 0.05 MCG/KG/MIN 16. 029 mls/hr IV .[id number] [facility] Rx#:[id number] Propofol 1,000 mg In 219.023 202.132 Empty Bag 1 bag @ Titrate IV .Q0M [facility] Rx#: [id number] fentaNYL (PF) 1,000 mcg 100 92.544 In Sodium Chloride 0.9% 80 ml @ 1 MCG/KG/HR 9.64 mls/hr IV .[id number] [facility] Rx #:[id number] Tube Feeding 75 364 38 Other 90 Output: Urine 250 280 25 Other: Voiding Method Indwelling Catheter Indwelling Catheter ABP, PAP, CO, CI - Last Documented Arterial Blood Pressure 107/52 - Exam Vital Signs: I have reviewed the vital signs. GENERAL: Intubated and sedated no any apparent distress Head: : No facial asymmetry, conjunctiva Neck: no masses or neck vain pulsation CVS: +S1/S2, No murmurs or gallops. RESP: Unlabored respiratory effort. Normal breath sounds present bilaterally, few coarse rhonchi Abdomen: Bowel sounds present in all 4 quadrants, Soft to palpation, nondistended Musculoskeletal: 2+ peripheral edema Skin: Warm, Dry. No rashes or lesions - Labs CBC & Chem 7: 08/09/18 00:45 08/09/18 00:45 Labs: Abnormal Lab Results - Last 24 Hours (Table) 08/06/18 08/08/18 08/08/18 Range/Units 10:30 11:41 18:47 WBC (3.8-10.6) k/uL RBC (3.80-5.40) m/uL Hgb (11.4-16.0) gm/dL Hct (34.0-46.0) % MCHC (31.0-37.0) g/dL RDW (11.5-15.5) % Neutrophils # (1.3-7.7) k/uL Lymphocytes # (1.0-4.8) k/uL APTT (22.0-30.0) sec ABG pH (7.35-7.45) ABG pO2 (83-108) mmHg ABG HCO3 (21-25) mmol/L ABG O2 Saturation (94-97) % Carbon Dioxide (22-30) mmol/L BUN (7-17) mg/dL Creatinine (0.52-1.04) mg/dL Glucose (74-99) mg/dL POC Glucose (mg/dL) 137 H 132 H (75-99) mg/dL Calcium (8.4-10.2) mg/dL Phosphorus (2.5-4.5) mg/dL AST (14-36) U/L Alkaline Phosphatase (38-126) U/L Total Protein (6.3-8.2) g/dL Albumin (3.5-5.0) g/dL Complement C3 71.7 L (80.0-207.0) mg/dL 08/08/18 08/09/18 08/09/18 Range/Units 23:59 00:45 00:45 WBC 17.8 H (3.8-10.6) k/uL RBC 2.57 L (3.80-5.40) m/uL Hgb 7.3 L (11.4-16.0) gm/dL Hct 23.9 L (34.0-46.0) % MCHC 30.6 L (31.0-37.0) g/dL RDW 16.6 H (11.5-15.5) % Neutrophils # 16.7 H (1.3-7.7) k/uL Lymphocytes # 0.6 L (1.0-4.8) k/uL APTT (22.0-30.0) sec ABG pH (7.35-7.45) ABG pO2 (83-108) mmHg ABG HCO3 (21-25) mmol/L ABG O2 Saturation (94-97) % Carbon Dioxide 17 L (22-30) mmol/L BUN 62 H (7-17) mg/dL Creatinine 4.51 H (0.52-1.04) mg/dL Glucose 127 H (74-99) mg/dL POC Glucose (mg/dL) 125 H (75-99) mg/dL Calcium 6.8 L (8.4-10.2) mg/dL Phosphorus 7.7 H (2.5-4.5) mg/dL AST 95 H (14-36) U/L Alkaline Phosphatase 163 H (38-126) U/L Total Protein 4.9 L (6.3-8.2) g/dL Albumin 2.1 L (3.5-5.0) g/dL Complement C3 (80.0-207.0) mg/dL 08/09/18 08/09/18 08/09/18 Range/Units 00:45 06:22 07:03 WBC (3.8-10.6) k/uL RBC (3.80-5.40) m/uL Hgb (11.4-16.0) gm/dL Hct (34.0-46.0) % MCHC (31.0-37.0) g/dL RDW (11.5-15.5) % Neutrophils # (1.3-7.7) k/uL Lymphocytes # (1.0-4.8) k/uL APTT 46.1 H (22.0-30.0) sec ABG pH 7.31 L (7.35-7.45) ABG pO2 134 H (83-108) mmHg ABG HCO3 18 L (21-25) mmol/L ABG O2 Saturation 98.7 H (94-97) % Carbon Dioxide (22-30) mmol/L BUN (7-17) mg/dL Creatinine (0.52-1.04) mg/dL Glucose (74-99) mg/dL POC Glucose (mg/dL) 131 H (75-99) mg/dL Calcium (8.4-10.2) mg/dL Phosphorus (2.5-4.5) mg/dL AST (14-36) U/L Alkaline Phosphatase (38-126) U/L Total Protein (6.3-8.2) g/dL Albumin (3.5-5.0) g/dL Complement C3 (80.0-207.0) mg/dL Microbiology - Last 24 Hours (Table) 08/06/18 09:30 Fungal Culture - Preliminary Bronchial Washings - Random Inga albicans 08/06/18 09:30 Gram Stain - Final Bronchial Washings - Random Bronchial Washings Culture - Final Inga albicans Inga glabrata 08/06/18 10:30 Blood Culture - Preliminary Blood No Growth after 48 hours Assessment and Plan Plan: 1. Acute hypoxic respiratory failure Requiring ventilatory support s/p PEA arrest 2. Bacterial pneumonia with sepsis antibiotics per ID and pulmonary 3. Acute kidney injury Due to ATN Nephrology following 4. Anasarca on Lasix 5. Anemia, normocytic stable no clinical signs of bleeding monitor Hb Guarded prognosis
--- NOTE | 2018-08-09 12:27 | P.PN ---
Subjective Pt is intubated and sedated. Chart was reviewed and discussed with the patient's nurse. Spoke with the family. Urine output increasing since this am, pressors support at minimal. Objective - Vital Signs Vital signs: Vital Signs Temp 97.6 F 08/08/18 08:00 Pulse 62 08/08/18 08:00 Resp 28 H 08/08/18 08:00 BP 114/79 08/08/18 08:00 Pulse Ox 96 08/08/18 08:00 Intake & Output 08/07/18 08/08/18 08/08/18 18:59 06:59 18:59 Intake Total 7707.453 9883.032 81.619 Output Total 220 360 10 Balance 1513.366 841.032 71.619 Weight 96.4 kg 96.9 kg Intake: IV 480 650 50 Ceftaroline Fosamil 300 100 50 mg In Sodium Chloride 0.9 % 50 ml @ 100 mls/hr IVPB Q12HR [facility] Rx#:[id number] Clindamycin 900 mg In 200 50 Dextrose 5% in Water 50 ml @ 50 mls/hr IVPB Q8HR [facility] Rx#:[id number] Dextrose 5% in Water 1, 100 000 ml @ 100 mls/hr IV . [id number] [facility] with Sodium Bicarb (1 Meq/ml) 150 ml Rx#:[id number] Sodium Chloride 0.9% 1, 550 50 000 ml @ 50 mls/hr IV . Q20H [facility] Rx#:[id number] ns for KVO line 80 Intake, IV Titration 1253.366 551.032 31.619 Amount Fluconazole in NaCl,Iso- 50 Osm 100 mg In Saline 1 50ml.bag @ 50 mls/hr IVPB DAILY [facility] Rx#:[id number] Heparin Sod,Pork in 0.45% 173.332 NaCl 25,000 unit In 0.45 % NaCl 1 250ml.bag @ 12 UNITS/KG/HR 9.96 mls/hr IV .Q24H [facility] Rx#: [id number] Norepinephrine 4 mg In 118.08 81.529 Sodium Chloride 0.9% 250 ml @ 0.05 MCG/KG/MIN 16. 029 mls/hr IV .[id number] [facility] Rx#:[id number] Potassium Chloride 20 meq 300 In Water For Injection 1 100ml.bag @ 50 mls/hr IVPB Q2H [facility] Rx#: [id number] Propofol 1,000 mg In 311.954 284.736 31.619 Empty Bag 1 bag @ Titrate IV .Q0M [facility] Rx#: [id number] Sodium Chloride 0.9% 1, 300 000 ml @ 50 mls/hr IV . Q20H [facility] Rx#:[id number] fentaNYL (PF) 1,000 mcg 184.767 In Sodium Chloride 0.9% 80 ml @ 1 MCG/KG/HR 9.64 mls/hr IV .[id number] [facility] Rx #:[id number] Output: Gastric Drainage 170 Urine 220 190 10 Other: Voiding Method Indwelling Catheter Indwelling Catheter ABP, PAP, CO, CI - Last Documented Arterial Blood Pressure 101/58 - Exam Vital Signs: I have reviewed the vital signs. GENERAL: Intubated and sedated no any apparent distress Head: : No facial asymmetry, conjunctiva Neck: no masses or neck vain pulsation CVS: +S1/S2, No murmurs or gallops. RESP: Unlabored respiratory effort. Normal breath sounds present bilaterally, few coarse rhonchi Abdomen: Bowel sounds present in all 4 quadrants, Soft to palpation, nondistended Musculoskeletal: 2+ peripheral edema Skin: Warm, Dry. No rashes or lesions - Labs CBC & Chem 7: 08/08/18 04:45 08/08/18 04:45 Labs: Abnormal Lab Results - Last 24 Hours (Table) 08/06/18 08/07/18 08/07/18 Range/Units 10:30 11:53 19:00 WBC (3.8-10.6) k/uL RBC (3.80-5.40) m/uL Hgb (11.4-16.0) gm/dL Hct (34.0-46.0) % RDW (11.5-15.5) % Neutrophils # (1.3-7.7) k/uL Lymphocytes # (1.0-4.8) k/uL APTT (22.0-30.0) sec ABG pO2 (83-108) mmHg ABG HCO3 (21-25) mmol/L Carbon Dioxide (22-30) mmol/L BUN (7-17) mg/dL Creatinine (0.52-1.04) mg/dL Glucose (74-99) mg/dL POC Glucose (mg/dL) 142 H 130 H (75-99) mg/dL Calcium (8.4-10.2) mg/dL Phosphorus (2.5-4.5) mg/dL AST (14-36) U/L Alkaline Phosphatase (38-126) U/L Total Protein (6.3-8.2) g/dL Albumin (3.5-5.0) g/dL Complement C3 71.7 L (80.0-207.0) mg/dL 08/07/18 08/08/18 08/08/18 Range/Units 23:36 04:01 04:45 WBC 15.2 H (3.8-10.6) k/uL RBC 2.48 L (3.80-5.40) m/uL Hgb 7.2 L (11.4-16.0) gm/dL Hct 22.8 L (34.0-46.0) % RDW 15.9 H (11.5-15.5) % Neutrophils # 14.1 H (1.3-7.7) k/uL Lymphocytes # 0.6 L (1.0-4.8) k/uL APTT (22.0-30.0) sec ABG pO2 79 L (83-108) mmHg ABG HCO3 20 L (21-25) mmol/L Carbon Dioxide (22-30) mmol/L BUN (7-17) mg/dL Creatinine (0.52-1.04) mg/dL Glucose (74-99) mg/dL POC Glucose (mg/dL) 124 H (75-99) mg/dL Calcium (8.4-10.2) mg/dL Phosphorus (2.5-4.5) mg/dL AST (14-36) U/L Alkaline Phosphatase (38-126) U/L Total Protein (6.3-8.2) g/dL Albumin (3.5-5.0) g/dL Complement C3 (80.0-207.0) mg/dL 08/08/18 08/08/18 08/08/18 Range/Units 04:45 04:45 06:46 WBC (3.8-10.6) k/uL RBC (3.80-5.40) m/uL Hgb (11.4-16.0) gm/dL Hct (34.0-46.0) % RDW (11.5-15.5) % Neutrophils # (1.3-7.7) k/uL Lymphocytes # (1.0-4.8) k/uL APTT 52.9 H (22.0-30.0) sec ABG pO2 (83-108) mmHg ABG HCO3 (21-25) mmol/L Carbon Dioxide 20 L (22-30) mmol/L BUN 47 H (7-17) mg/dL Creatinine 4.24 H (0.52-1.04) mg/dL Glucose 119 H (74-99) mg/dL POC Glucose (mg/dL) 125 H (75-99) mg/dL Calcium 7.2 L (8.4-10.2) mg/dL Phosphorus 6.3 H (2.5-4.5) mg/dL AST 137 H (14-36) U/L Alkaline Phosphatase 158 H (38-126) U/L Total Protein 5.4 L (6.3-8.2) g/dL Albumin 2.3 L (3.5-5.0) g/dL Complement C3 (80.0-207.0) mg/dL Microbiology - Last 24 Hours (Table) 08/06/18 09:30 Acid Fast Bacilli Smear - Final Bronchial Washings - Random Acid Fast Bacilli Culture - Preliminary 08/06/18 10:30 Blood Culture - Preliminary Blood No Growth after 24 hours 08/06/18 09:30 Gram Stain - Preliminary Bronchial Washings - Random Bronchial Washings Culture - Preliminary Inga albicans Yeast species Assessment and Plan Plan: 1. Acute hypoxic respiratory failure Requiring ventilatory support 2. Bacterial pneumonia with sepsis Bronchial cultures positive for MRSA and Inga albicans Patient started on clindamycin and Diflucan per pulmo/CC Pulmonary/CC service following Obtain follow-up EKG to review QTC Previous QTC normal Pressor need has been decreasing 3. Acute kidney injury Due to ATN Nephrology following 4. Anasarca 5. Cardiology evaluated and recommended discontinuing heparin
[2018-08-09] MEDS: CALCIUM ACETATE 667 MG CAP PO SCH ×2 (12:43→17:38)
[2018-08-09] MEDS: SODIUM CHLORIDE 0.9% IVPB SCH ×2 (12:43→21:24)
[2018-08-09] MEDS: CEFTAROLINE FOSAMIL IVPB SCH ×2 (12:43→21:24)
[2018-08-09] MEDS: SODIUM CHLORIDE 0.45% 1,000 ML with SODIUM BICARB (1 MEQ/ML) 100 ML IV SCH ×2 (12:51)
[2018-08-09] MEDS: metroNIDAZOLE 500 MG TAB OG-TUBE SCH ×2 (17:38→21:25)
[2018-08-09 17:50] LABS: Glucose,Whole Blood 137 mg/dL (75-99)
--- NOTE | 2018-08-09 18:31 | PN ---
PROGRESS NOTE Patient is seen for followup for acute kidney injury. She is currently on the vent. Patient is sedated. FiO2 is at 55%. Levophed is at about 2 mcg. Urine output seems to have picked up a little bit with the Lasix that patient received last night. However, this morning it was back down to about 5-10 mL/hour. Serum creatinine is slightly higher than yesterday, although not significantly much. On examination this morning, patient remains on the vent. Blood pressure was 104/53, heart rate of 80 per minute. She is afebrile. EXAMINATION OF THE HEART: S1 and S2. EXAMINATION OF LUNGS: Bilateral breath sounds are heard. ABDOMEN: Soft, non-tender. Examination of lower extremities shows trace edema bilaterally. [employer] exam cannot be performed. Labs show hemoglobin 7.3, white cell count 17.8. Sodium 137, potassium 4.0, BUN 62, serum creatinine 4.5. CO2 was 17, calcium 6.8, phosphorus 7.7. ASSESSMENT: 1. Acute kidney injury, acute tubular necrosis, currently nonoliguric. Urine output seems to have picked up. I will continue with 80 mg of Lasix. We will increase it to b.i.d. if urine output drops again. 2. Metabolic acidosis, non-gap, associated with renal failure. Resume bicarb drip at 50 mL/hour. 3. Sepsis with bronchial washing cultures growing Inga albicans and Inga glabrata as well as methicillin-resistant Staphylococcus aeruginosa. Patient is maintained on antifungal treatment along with ceftaroline. 4. Status post cardiac arrest. 5. Hyperphosphatemia associated with renal failure. Will start PhosLo. 6. Vent-dependent respiratory failure, acute hypoxic, associated with sepsis and underlying pneumonia, maintained on the vent. PLAN: Start bicarb drip. Maintain patient on IV Lasix 80 mg. I will increase it to b.i.d. Repeat labs in a.m. and continue to avoid nephrotoxic agents. MMODL / IJN: [id number] /
[2018-08-09] MEDS: AMITRIPTYLINE HCL 50 MG TAB PO SCH (20:11)
[2018-08-09] MEDS: DOCUSATE 100 MG CAP PO SCH (20:12)
[2018-08-09] MEDS: QUEtiapine 200 MG TAB PO SCH (20:12)
[2018-08-09] MEDS: MONTELUKAST 10 MG TAB PO SCH (20:12)
--- NOTE | 2018-08-09 21:56 | P.PN ---
Subjective Progress Note Date: 08/09/18 Principal diagnosis: Left upper lobe pneumonia The patient remains to be afebrile, the patient did require low-dose pressure support however the patient FiO2 is stable rather down to 45%, patient has been tolerating her tube feeds however has developed significant diarrhea requiring application of a fecal management system, stool for C. diff has been sent which is currently pending Objective - Vital Signs Vital signs: Vital Signs Temp 97.5 F L 08/09/18 08:00 Pulse 81 08/09/18 11:34 Resp 28 H 08/09/18 11:00 BP 114/79 08/09/18 11:00 Pulse Ox 97 08/09/18 11:00 Intake & Output 08/08/18 08/09/18 08/09/18 18:59 06:59 18:59 Intake Total 2434.026 5150.985 1002.832 Output Total 250 280 65 Balance 7422.487 4730.985 937.832 Weight 96.9 kg 96.3 kg Intake: IV 600 650 324 Ceftaroline Fosamil 300 50 50 mg In Sodium Chloride 0.9 % 50 ml @ 100 mls/hr IVPB Q12HR [facility] Rx#:[id number] Clindamycin 900 mg In 150 50 50 Dextrose 5% in Water 50 ml @ 50 mls/hr IVPB Q8HR [facility] Rx#:[id number] Normal Saline Pressure 24 bag Sodium Chloride 0.9% 1, 400 550 250 000 ml @ 50 mls/hr IV . Q20H [facility] Rx#:[id number] Intake, IV Titration 694.356 399.985 474.832 Amount Fluconazole in NaCl,Iso- 50 50 Osm 100 mg In Saline 1 50ml.bag @ 50 mls/hr IVPB DAILY [facility] Rx#:[id number] Heparin Sod,Pork in 0.45% 250 250.000 NaCl 25,000 unit In 0.45 % NaCl 1 250ml.bag @ 12 UNITS/KG/HR 9.96 mls/hr IV .Q24H [facility] Rx#: [id number] Norepinephrine 4 mg In 75.333 105.309 Sodium Chloride 0.9% 250 ml @ 0.05 MCG/KG/MIN 16. 029 mls/hr IV .[id number] [facility] Rx#:[id number] Propofol 1,000 mg In 219.023 202.132 95.141 Empty Bag 1 bag @ Titrate IV .Q0M [facility] Rx#: [id number] fentaNYL (PF) 1,000 mcg 100 92.544 79.691 In Sodium Chloride 0.9% 80 ml @ 1 MCG/KG/HR 9.64 mls/hr IV .[id number] [facility] Rx #:[id number] Tube Feeding 75 364 114 Other 90 90 Output: Urine 250 280 65 Other: Voiding Method Indwelling Catheter Indwelling Catheter Indwelling Catheter ABP, PAP, CO, CI - Last Documented Arterial Blood Pressure 109/54 - Exam GENERAL DESCRIPTION:[ Middle-aged female intubated on the vent] HEENT: [Patient is orally intubated and limited examination of the oral cavity] EYES : [No pallor or scleral icterus] RESPIRATORY SYSTEM: [Unlabored breathing decreased breath sound at the base] CARDIA VASCULAR SYSTEM: [S1-S2 regular rate and rhythm no murmur] GI: [Abdominal soft there's no tenderness no organomegaly] EXTREMITIES: [No edema feet] - Labs CBC & Chem 7: 08/09/18 00:45 08/09/18 00:45 Labs: Abnormal Lab Results - Last 24 Hours (Table) 08/08/18 08/08/18 08/09/18 Range/Units 18:47 23:59 00:45 WBC 17.8 H (3.8-10.6) k/uL RBC 2.57 L (3.80-5.40) m/uL Hgb 7.3 L (11.4-16.0) gm/dL Hct 23.9 L (34.0-46.0) % MCHC 30.6 L (31.0-37.0) g/dL RDW 16.6 H (11.5-15.5) % Neutrophils # 16.7 H (1.3-7.7) k/uL Lymphocytes # 0.6 L (1.0-4.8) k/uL APTT (22.0-30.0) sec ABG pH (7.35-7.45) ABG pO2 (83-108) mmHg ABG HCO3 (21-25) mmol/L ABG O2 Saturation (94-97) % Carbon Dioxide (22-30) mmol/L BUN (7-17) mg/dL Creatinine (0.52-1.04) mg/dL Glucose (74-99) mg/dL POC Glucose (mg/dL) 132 H 125 H (75-99) mg/dL Calcium (8.4-10.2) mg/dL Phosphorus (2.5-4.5) mg/dL AST (14-36) U/L Alkaline Phosphatase (38-126) U/L Total Protein (6.3-8.2) g/dL Albumin (3.5-5.0) g/dL 08/09/18 08/09/18 08/09/18 Range/Units 00:45 00:45 06:22 WBC (3.8-10.6) k/uL RBC (3.80-5.40) m/uL Hgb (11.4-16.0) gm/dL Hct (34.0-46.0) % MCHC (31.0-37.0) g/dL RDW (11.5-15.5) % Neutrophils # (1.3-7.7) k/uL Lymphocytes # (1.0-4.8) k/uL APTT 46.1 H (22.0-30.0) sec ABG pH (7.35-7.45) ABG pO2 (83-108) mmHg ABG HCO3 (21-25) mmol/L ABG O2 Saturation (94-97) % Carbon Dioxide 17 L (22-30) mmol/L BUN 62 H (7-17) mg/dL Creatinine 4.51 H (0.52-1.04) mg/dL Glucose 127 H (74-99) mg/dL POC Glucose (mg/dL) 131 H (75-99) mg/dL Calcium 6.8 L (8.4-10.2) mg/dL Phosphorus 7.7 H (2.5-4.5) mg/dL AST 95 H (14-36) U/L Alkaline Phosphatase 163 H (38-126) U/L Total Protein 4.9 L (6.3-8.2) g/dL Albumin 2.1 L (3.5-5.0) g/dL 08/09/18 08/09/18 Range/Units 07:03 11:55 WBC (3.8-10.6) k/uL RBC (3.80-5.40) m/uL Hgb (11.4-16.0) gm/dL Hct (34.0-46.0) % MCHC (31.0-37.0) g/dL RDW (11.5-15.5) % Neutrophils # (1.3-7.7) k/uL Lymphocytes # (1.0-4.8) k/uL APTT (22.0-30.0) sec ABG pH 7.31 L (7.35-7.45) ABG pO2 134 H (83-108) mmHg ABG HCO3 18 L (21-25) mmol/L ABG O2 Saturation 98.7 H (94-97) % Carbon Dioxide (22-30) mmol/L BUN (7-17) mg/dL Creatinine (0.52-1.04) mg/dL Glucose (74-99) mg/dL POC Glucose (mg/dL) 139 H (75-99) mg/dL Calcium (8.4-10.2) mg/dL Phosphorus (2.5-4.5) mg/dL AST (14-36) U/L Alkaline Phosphatase (38-126) U/L Total Protein (6.3-8.2) g/dL Albumin (3.5-5.0) g/dL Microbiology - Last 24 Hours (Table) 08/06/18 09:30 Fungal Culture - Preliminary Bronchial Washings - Random Inga albicans 08/06/18 09:30 Gram Stain - Final Bronchial Washings - Random Bronchial Washings Culture - Final Inga albicans Inga glabrata 08/06/18 10:30 Blood Culture - Preliminary Blood No Growth after 48 hours Assessment and Plan Assessment: 1-patient with left upper lobe pneumonia with a sputum culture has been finalized as MRSA , subsequent worsening of her clinical condition and cardiac arrest and status post resuscitation and intubation as well as bronchoscopy----bronchoscopy cultures are currently growing Inga only 2-patient is on SSRI contraindicating the use of Zyvox 3-patient with significant diarrhea, antibiotic associated ,stool for C. diff is negative (1) Sepsis Current Visit: Yes Status: Acute Code(s): A41.9 - SEPSIS, UNSPECIFIED ORGANISM SNOMED Code(s): 72634356 (2) Nosocomial pneumonia Current Visit: Yes Status: Acute Code(s): J18.9 - PNEUMONIA, UNSPECIFIED ORGANISM; Y95 - NOSOCOMIAL CONDITION SNOMED Code(s): 365366137 Plan: 1- the patient on Teflaro 200 mg twice a day dose has been adjusted to kidney function, however discontinue clindamycin in view of significant diarrhea or l ikely antibiotic associated and stool for C. diff is negative 2-will add Flagyl 500 every 8 hours Follow-up on clinical condition and adjust antibiotics further if needed Time with Patient: Less than 30
[2018-08-10] MEDS: fentaNYL (PF) 1,000 MCG in SODIUM CHLORIDE 0.9% 80 ML IV SCH ×3 (00:38→20:19)
[2018-08-10 01:04] LABS: Glucose,Whole Blood 138 mg/dL (75-99)
[2018-08-10] MEDS: INSULIN ASPART (NovoLOG) 100 UNIT/ML VIAL SQ SCH ×4 (01:15→19:20)
[2018-08-10] MEDS: methylPREDNISolone SOD SUCCI 125 MG/2 ML VIAL IV SCH ×4 (01:15→19:19)
[2018-08-10 04:36] LABS: Anisocytosis Slight; Basophils % (A) 0 %; Eosinophils % (A) 0 %; HCT 23.4 % (34.0-46.0); HGB 7.1 gm/dL (11.4-16.0); Hypochromasia Slight; Lymphocytes # (A) 0.5 k/uL (1.0-4.8); Lymphocytes % (A) 2 %; MCHC 30.4 g/dL (31.0-37.0); MCV 92.1 fL (80.0-100.0); Monocytes # (A) 0.4 k/uL (0-1.0); Monocytes % (A) 2 %; Neutrophils # (A) 19.5 k/uL (1.3-7.7); Neutrophils % (A) 94 %; Platelet Count 236 k/uL (150-450); RBC 2.54 m/uL (3.80-5.40); RDW 16.6 % (11.5-15.5); WBC 20.6 k/uL (3.8-10.6)
[2018-08-10 04:45] LABS: Albumin 2.3 g/dL (3.5-5.0); Calcium 6.7 mg/dL (8.4-10.2); Magnesium 1.9 mg/dL (1.6-2.3); Phosphorus 7.7 mg/dL (2.5-4.5); Potassium 4.4 mmol/L (3.5-5.1); Total Bilirubin 0.7 mg/dL (0.2-1.3); Total Protein 5.1 g/dL (6.3-8.2)
[2018-08-10 06:07] LABS: Glucose,Whole Blood 141 mg/dL (75-99)
[2018-08-10] MEDS: NOREPINEPHRINE 4 MG in SODIUM CHLORIDE 0.9% 250 ML IV SCH (06:50)
--- NOTE | 2018-08-10 07:19 | XR ---
EXAMINATION TYPE: XR chest 1V portable DATE OF EXAM: 08/10/2018 Comparison: 08/09/2018 Clinical History: 63-year-old female with tube placement Findings: ET tube tip satisfactory at the level of the medial clavicular heads. Left subclavian CVC tip at the lower SVC level. Heart remains moderately enlarged with diffuse interstitial and patchy airspace opac ities throughout. Density may be slightly more confluent at the left base. No sizable effusions seen on the frontal view. The NG tube has been pulled back slightly. The sidehole is at the level of the GE junction. Impression: 1. Continued cardiomegaly and diffuse interstitial and patchy airspace pulmonary edema. Findings are overall stable though airspace disease is slightly more confluent at the left base. 2. NG tube has been pulled back slightly. The sidehole is now located at the level of the GE junction . Consider slight advancement.
--- NOTE | 2018-08-10 08:01 | P.PN ---
Subjective Progress Note Date: 08/10/18 Principal diagnosis: Acute hypoxic respiratory failure This is a pleasant 63-year-old female patient who I follow in the office as an outpatient with known history of coronary artery disease and prior coronary artery stenting of the RCA, hypertension, dyslipidemia, as well as multiple psychiatric disorder, initially was admitted to the hospital with what it seems to be pneumonia and subsequently she was coded was PDA and was transferred to the intensive care unit. Currently the patient is intubated and she is on ventilator and the history was taken from her daughter as well as from the nurse taking care of the patient. I just saw the patient in the office last week and she was doing quite well from the cardiovascular standpoint overview. About 4 days ago, the patient was found to be weak as well as slightly confused by her daughter. She was experiencing some cough without any sputum and without any fever or chills. Because of that her daughter brought her to the hospital for further evaluation. Please note that the patient's has been was getting t reated for MRSA in the lower extremities and he was going to do one to clinic for that. The patient initially was admitted to a non-telemetry floor for pneumonia and she was on antibiotic. Yesterday, she was agitated and she was given Ativan but subsequently she developed change in mental status and subsequently she did have PDA. After that the patient was intubated and transferred to the intensive care unit. The patient currently still intubated. She is hemodynamically unstable and requiring quite high dose of Levophed. She is in normal sinus mechanism. The hemoglobin is 7.5, the creatinine is 2.7, and I did review the chest x-ray from the morning which revealed bilateral infiltrate and questionable bilateral pneumonia. There is also a possibility that the patient was aspirated during the cold yesterday. The BNP is 45,000. The echocardiogram revealed moderate to severe tricuspid regurgitation, moderate to severe pulmonary hypertension, and preserved left ventricle systolic function On follow-up with the patient today, August 102018, the patient continues to be intubated and on mechanical ventilation. She is off sedation for the last several hours and will follow-up to see if she is able to wake up. Hemodynamically she still requiring small doses of norepinephrine. She is not on any blood pressure medication at this point because of the hypotension. She is on dual antiplatelet therapy. The creatinine continues to be elevated and I suspected that the patient might need to have dialysis. She continues to be on Lasix IV as well. I did review the chest x-ray today and seems to be better overall. Objective - Vital Signs Vital signs: Vital Signs Temp 98.2 F 08/10/18 00:00 Pulse 87 08/10/18 06:30 Resp 28 H 08/10/18 06:30 BP 114/79 08/09/18 11:00 Pulse Ox 96 08/10/18 06:30 Intake & Output 08/09/18 08/10/18 08/10/18 18:59 06:59 18:59 Intake Total 5374.218 2506.358 Output Total 263 415 Balance 7834.811 8924.358 Weight 96.3 kg 97.9 kg Intake: IV 466 728 Ceftaroline Fosamil 300 50 mg In Sodium Chloride 0.9 % 50 ml @ 100 mls/hr IVPB Q12HR [facility] Rx#:[id number] Clindamycin 900 mg In 50 Dextrose 5% in Water 50 ml @ 50 mls/hr IVPB Q8HR [facility] Rx#:[id number] Normal Saline Pressure 66 78 bag Sodium Chloride 0.45% 1, 600 000 ml @ 50 mls/hr IV . Q22H [facility] with Sodium Bicarb (1 Meq/ml) 100 ml Rx#:[id number] Sodium Chloride 0.9% 1, 350 000 ml @ 50 mls/hr IV . Q20H [facility] Rx#:[id number] Intake, IV Titration 774.832 123.358 Amount Ceftaroline Fosamil 200 50 mg In Sodium Chloride 0.9 % 50 ml @ 100 mls/hr IVPB Q12HR [facility] Rx#:[id number] Fluconazole in NaCl,Iso- 50 Osm 100 mg In Saline 1 50ml.bag @ 50 mls/hr IVPB DAILY [facility] Rx#:[id number] Heparin Sod,Pork in 0.45% 250.000 NaCl 25,000 unit In 0.45 % NaCl 1 250ml.bag @ 12 UNITS/KG/HR 9.96 mls/hr IV .Q24H [facility] Rx#: [id number] Norepinephrine 4 mg In 73.358 Sodium Chloride 0.9% 250 ml @ 0.05 MCG/KG/MIN 16. 029 mls/hr IV .[id number] [facility] Rx#:[id number] Propofol 1,000 mg In 95.141 Empty Bag 1 bag @ Titrate IV .Q0M [facility] Rx#: [id number] Sodium Chloride 0.45% 1, 250 50 000 ml @ 50 mls/hr IV . Q22H [facility] with Sodium Bicarb (1 Meq/ml) 100 ml Rx#:[id number] fentaNYL (PF) 1,000 mcg 79.691 In Sodium Chloride 0.9% 80 ml @ 1 MCG/KG/HR 9.64 mls/hr IV .[id number] [facility] Rx #:[id number] Tube Feeding 380 494 Other 150 90 Output: Urine 263 415 Other: Voiding Method Indwelling Catheter Indwelling Catheter ABP, PAP, CO, CI - Last Documented Arterial Blood Pressure 109/47 - Constitutional General appearance: Present: no acute distress - Respiratory Respiratory: bilateral: rales - Cardiovascular Rhythm: regular Heart sounds: normal: S1, S2 - Labs CBC & Chem 7: 08/10/18 04:20 08/10/18 04:20 Labs: Abnormal Lab Results - Last 24 Hours (Table) 08/06/18 08/09/18 08/09/18 Range/Units 09:30 11:55 17:36 WBC (3.8-10.6) k/uL RBC (3.80-5.40) m/uL Hgb (11.4-16.0) gm/dL Hct (34.0-46.0) % MCHC (31.0-37.0) g/dL RDW (11.5-15.5) % Neutrophils # (1.3-7.7) k/uL Lymphocytes # (1.0-4.8) k/uL Sodium (137-145) mmol/L Carbon Dioxide (22-30) mmol/L BUN (7-17) mg/dL Creatinine (0.52-1.04) mg/dL Glucose (74-99) mg/dL POC Glucose (mg/dL) 139 H 137 H (75-99) mg/dL Calcium (8.4-10.2) mg/dL Phosphorus (2.5-4.5) mg/dL AST (14-36) U/L Alkaline Phosphatase (38-126) U/L Total Protein (6.3-8.2) g/dL Albumin (3.5-5.0) g/dL Viral Test See Below H 08/10/18 08/10/18 08/10/18 Range/Units 00:59 04:20 04:20 WBC 20.6 H (3.8-10.6) k/uL RBC 2.54 L (3.80-5.40) m/uL Hgb 7.1 L (11.4-16.0) gm/dL Hct 23.4 L (34.0-46.0) % MCHC 30.4 L (31.0-37.0) g/dL RDW 16.6 H (11.5-15.5) % Neutrophils # 19.5 H (1.3-7.7) k/uL Lymphocytes # 0.5 L (1.0-4.8) k/uL Sodium 136 L (137-145) mmol/L Carbon Dioxide 18 L (22-30) mmol/L BUN 77 H (7-17) mg/dL Creatinine 4.89 H (0.52-1.04) mg/dL Glucose 116 H (74-99) mg/dL POC Glucose (mg/dL) 138 H (75-99) mg/dL Calcium 6.7 L (8.4-10.2) mg/dL Phosphorus 7.7 H (2.5-4.5) mg/dL AST 59 H (14-36) U/L Alkaline Phosphatase 151 H (38-126) U/L Total Protein 5.1 L (6.3-8.2) g/dL Albumin 2.3 L (3.5-5.0) g/dL Viral Test 08/10/18 Range/Units 06:04 WBC (3.8-10.6) k/uL RBC (3.80-5.40) m/uL Hgb (11.4-16.0) gm/dL Hct (34.0-46.0) % MCHC (31.0-37.0) g/dL RDW (11.5-15.5) % Neutrophils # (1.3-7.7) k/uL Lymphocytes # (1.0-4.8) k/uL Sodium (137-145) mmol/L Carbon Dioxide (22-30) mmol/L BUN (7-17) mg/dL Creatinine (0.52-1.04) mg/dL Glucose (74-99) mg/dL POC Glucose (mg/dL) 141 H (75-99) mg/dL Calcium (8.4-10.2) mg/dL Phosphorus (2.5-4.5) mg/dL AST (14-36) U/L Alkaline Phosphatase (38-126) U/L Total Protein (6.3-8.2) g/dL Albumin (3.5-5.0) g/dL Viral Test Microbiology - Last 24 Hours (Table) 08/06/18 10:30 Blood Culture - Preliminary Blood No Growth after 72 hours Assessment and Plan Assessment: Assessment #1 acute hypoxic respiratory failure #2 bilateral pneumonia, with MRSA #3 acute renal failure #4 anemia #5 known coronary artery disease and prior coronary artery stenting #6 multiple comorbid conditions. Plan #1 try to wean the patient from norepinephrine #2 continue dual antiplatelet therapy #3 continue the Lasix IV per nephrology #4 follow-up with the patient
[2018-08-10 08:58] LABS: ABG Base Excess -7.4 mmol/L; ABG HCO3 19 mmol/L (21-25); ABG Oxygen Saturation 98.4 % (94-97); ABG PCO2 35 mmHg (35-45); ABG PH 7.33 (7.35-7.45); ABG PO2 112 mmHg (83-108); ABG TCO2 20 mmol/L (19-24)
[2018-08-10] MEDS: CEFTAROLINE FOSAMIL IVPB SCH ×2 (09:22→22:11)
[2018-08-10] MEDS: CALCIUM ACETATE 667 MG CAP PO SCH ×3 (09:22→19:19)
[2018-08-10] MEDS: SODIUM CHLORIDE 0.9% IVPB SCH ×2 (09:22→22:11)
[2018-08-10] MEDS: CLOPIDOGREL 75 MG TAB PO SCH (09:23)
[2018-08-10] MEDS: ASPIRIN 81 MG PO SCH (09:23)
[2018-08-10] MEDS: FOLIC ACID 1 MG TAB PO SCH (09:23)
[2018-08-10] MEDS: LEVOTHYROXINE IVP 100 MCG/5 ML VIAL IV SCH (09:23)
[2018-08-10] MEDS: ATORVASTATIN 20 MG TAB PO SCH (09:23)
[2018-08-10] MEDS: CHLORHEXIDINE GLUCONATE 15 ML CUP MUCOUS MEM SCH ×2 (09:23→21:28)
[2018-08-10] MEDS: FUROSEMIDE 10 MG/ML 10 ML VIAL IV SCH ×2 (09:23→21:28)
[2018-08-10] MEDS: FLUCONAZOLE IN NACL,ISO-OSM 100 MG in SALINE 1 50ML.BAG IVPB SCH (09:23)
[2018-08-10] MEDS: metroNIDAZOLE 500 MG TAB OG-TUBE SCH ×3 (09:26→21:29)
[2018-08-10] MEDS: PANTOPRAZOLE 40 MG/10 ML VIAL IVP SCH ×2 (09:26→21:28)
[2018-08-10] MEDS: SERTRALINE 100 MG TAB PO SCH (09:27)
[2018-08-10] MEDS: IPRATROPIUM-ALBUTEROL 3 ML NEB INHALATION SCH ×4 (09:45→19:16)
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
[2018-08-10 11:56] LABS: Glucose,Whole Blood 106 mg/dL (75-99)
[2018-08-10 12:43] LABS: Glucose,Whole Blood 111 mg/dL (75-99)
[2018-08-10] MEDS: SODIUM CHLORIDE 0.45% 1,000 ML with SODIUM BICARB (1 MEQ/ML) 100 ML IV SCH ×2 (12:45)
--- NOTE | 2018-08-10 13:19 | P.PN ---
Subjective Progress Note Date: 08/10/18 Principal diagnosis: metabolic encephalopathy, pneumonia Patient was seen and examined. Daughter is at bedside. Off sedation, responding to very little commands. Discussed with Dr. Arredondo, able to track with eyes when daughter present. Fully ventilated on FiO2 45, tidal volume 500, rate of 28 and PEEP of 5. Objective - Vital Signs Vital signs: Vital Signs Temp 99.1 F 08/10/18 08:00 Pulse 90 08/10/18 11:29 Resp 29 H 08/10/18 10:30 BP 114/79 08/09/18 11:00 Pulse Ox 97 08/10/18 10:30 Intake & Output 08/09/18 08/10/18 08/10/18 18:59 06:59 18:59 Intake Total 6363.999 8654.358 124 Output Total 263 415 30 Balance 4282.508 8838.358 94 Weight 96.3 kg 97.9 kg 97.9 kg Intake: IV 466 728 56 Ceftaroline Fosamil 300 50 mg In Sodium Chloride 0.9 % 50 ml @ 100 mls/hr IVPB Q12HR [facility] Rx#:[id number] Clindamycin 900 mg In 50 Dextrose 5% in Water 50 ml @ 50 mls/hr IVPB Q8HR [facility] Rx#:[id number] Normal Saline Pressure 66 78 6 bag Sodium Chloride 0.45% 1, 600 50 000 ml @ 50 mls/hr IV . Q22H [facility] with Sodium Bicarb (1 Meq/ml) 100 ml Rx#:[id number] Sodium Chloride 0.9% 1, 350 000 ml @ 50 mls/hr IV . Q20H [facility] Rx#:[id number] Intake, IV Titration 774.832 123.358 Amount Ceftaroline Fosamil 200 50 mg In Sodium Chloride 0.9 % 50 ml @ 100 mls/hr IVPB Q12HR [facility] Rx#:[id number] Fluconazole in NaCl,Iso- 50 Osm 100 mg In Saline 1 50ml.bag @ 50 mls/hr IVPB DAILY [facility] Rx#:[id number] Heparin Sod,Pork in 0.45% 250.000 NaCl 25,000 unit In 0.45 % NaCl 1 250ml.bag @ 12 UNITS/KG/HR 9.96 mls/hr IV .Q24H [facility] Rx#: [id number] Norepinephrine 4 mg In 73.358 Sodium Chloride 0.9% 250 ml @ 0.05 MCG/KG/MIN 16. 029 mls/hr IV .[id number] [facility] Rx#:[id number] Propofol 1,000 mg In 95.141 Empty Bag 1 bag @ Titrate IV .Q0M [facility] Rx#: [id number] Sodium Chloride 0.45% 1, 250 50 000 ml @ 50 mls/hr IV . Q22H [facility] with Sodium Bicarb (1 Meq/ml) 100 ml Rx#:[id number] fentaNYL (PF) 1,000 mcg 79.691 In Sodium Chloride 0.9% 80 ml @ 1 MCG/KG/HR 9.64 mls/hr IV .[id number] [facility] Rx #:[id number] Tube Feeding 380 494 38 Other 150 90 30 Output: Urine 263 415 30 Other: Voiding Method Indwelling Catheter Indwelling Catheter Indwelling Catheter ABP, PAP, CO, CI - Last Documented Arterial Blood Pressure 105/46 - Exam General: [non toxic], [intubated on full vent support unresponsive to stimuli], [appears at stated age] Derm: [warm], [dry] Head: [atraumatic], [normocephalic], [symmetric] Eyes: [Nystagmus], [no lid lag], [anicteric sclera] Mouth: [no lip lesion], [mucus membranes moist] Cardiovascular: [S1S2 reg], [positive DP pulse bilateral] Lungs: [Scattered rhonchi bilaterally], [no accessory muscle use] Abdominal: [soft], [ nontender to palpation], [no guarding], [no appreciable organomegaly] Ext: [no gross muscle atrophy], [3+ edema], [no contractures] - Labs CBC & Chem 7: 08/10/18 04:20 08/10/18 04:20 Labs: Abnormal Lab Results - Last 24 Hours (Table) 08/06/18 08/09/18 08/09/18 Range/Units 09:30 11:55 17:36 WBC (3.8-10.6) k/uL RBC (3.80-5.40) m/uL Hgb (11.4-16.0) gm/dL Hct (34.0-46.0) % MCHC (31.0-37.0) g/dL RDW (11.5-15.5) % Neutrophils # (1.3-7.7) k/uL Lymphocytes # (1.0-4.8) k/uL ABG pH (7.35-7.45) ABG pO2 (83-108) mmHg ABG HCO3 (21-25) mmol/L ABG O2 Saturation (94-97) % Sodium (137-145) mmol/L Carbon Dioxide (22-30) mmol/L BUN (7-17) mg/dL Creatinine (0.52-1.04) mg/dL Glucose (74-99) mg/dL POC Glucose (mg/dL) 139 H 137 H (75-99) mg/dL Calcium (8.4-10.2) mg/dL Phosphorus (2.5-4.5) mg/dL AST (14-36) U/L Alkaline Phosphatase (38-126) U/L Total Protein (6.3-8.2) g/dL Albumin (3.5-5.0) g/dL Viral Test See Below H 08/10/18 08/10/18 08/10/18 Range/Units 00:59 04:20 04:20 WBC 20.6 H (3.8-10.6) k/uL RBC 2.54 L (3.80-5.40) m/uL Hgb 7.1 L (11.4-16.0) gm/dL Hct 23.4 L (34.0-46.0) % MCHC 30.4 L (31.0-37.0) g/dL RDW 16.6 H (11.5-15.5) % Neutrophils # 19.5 H (1.3-7.7) k/uL Lymphocytes # 0.5 L (1.0-4.8) k/uL ABG pH (7.35-7.45) ABG pO2 (83-108) mmHg ABG HCO3 (21-25) mmol/L ABG O2 Saturation (94-97) % Sodium 136 L (137-145) mmol/L Carbon Dioxide 18 L (22-30) mmol/L BUN 77 H (7-17) mg/dL Creatinine 4.89 H (0.52-1.04) mg/dL Glucose 116 H (74-99) mg/dL POC Glucose (mg/dL) 138 H (75-99) mg/dL Calcium 6.7 L (8.4-10.2) mg/dL Phosphorus 7.7 H (2.5-4.5) mg/dL AST 59 H (14-36) U/L Alkaline Phosphatase 151 H (38-126) U/L Total Protein 5.1 L (6.3-8.2) g/dL Albumin 2.3 L (3.5-5.0) g/dL Viral Test 08/10/18 08/10/18 Range/Units 06:04 08:57 WBC (3.8-10.6) k/uL RBC (3.80-5.40) m/uL Hgb (11.4-16.0) gm/dL Hct (34.0-46.0) % MCHC (31.0-37.0) g/dL RDW (11.5-15.5) % Neutrophils # (1.3-7.7) k/uL Lymphocytes # (1.0-4.8) k/uL ABG pH 7.33 L (7.35-7.45) ABG pO2 112 H (83-108) mmHg ABG HCO3 19 L (21-25) mmol/L ABG O2 Saturation 98.4 H (94-97) % Sodium (137-145) mmol/L Carbon Dioxide (22-30) mmol/L BUN (7-17) mg/dL Creatinine (0.52-1.04) mg/dL Glucose (74-99) mg/dL POC Glucose (mg/dL) 141 H (75-99) mg/dL Calcium (8.4-10.2) mg/dL Phosphorus (2.5-4.5) mg/dL AST (14-36) U/L Alkaline Phosphatase (38-126) U/L Total Protein (6.3-8.2) g/dL Albumin (3.5-5.0) g/dL Viral Test Microbiology - Last 24 Hours (Table) 08/06/18 10:30 Blood Culture - Preliminary Blood No Growth after 72 hours Assessment and Plan Assessment: 1. 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 Acute hypoxic respiratory failure, likely secondary to MRSA pneumonia and possible ARDS along with acute on chronic systolic-diastolic heart failure and possible PE 3. Sepsis, likely secondary to MRSA pneumonia 4. Healthcare associated pneumonia, MRSA 5. Acute on chronic diastolic heart failure 6. Metabolic acidosis 7. Acute renal failure 8. Anemia 9. History of CVA 10. COPD 11. Hypertension 12. Hypothyroidism 13. Depression 14. DVT and GI Prophylaxis 1. CT brain (07/31) is negative for acute process. Ammonia is within normal limits. UDS positive for TCAs. UA is negative for nitrite or leukocyte nancy rase. Chest x-ray showing concerns for bilateral pneumonia. TSH is within normal limits. PEA on 08/06/2018 with ROSC within 10 minutes. SELMA negative and syphilis testing negative. Plan: Continue IV antibiotics along with supplemental oxygen in the treatment of MRSA pneumonia. Neurology consulted, plans for CT brain repeat and EEG 2. Worsening respiratory status 08/06 leading to intubation. Chest x-ray showing increasing bilateral lung opacities. ABG showing picture of metabolic acidosis along with respiratory acidosis. PaO2 over FiO2 is 270. D-dimer 28.85, Echocar diogram shows EF 50-55% with right ventricular pressure overload, venous duplex in all 4 extremities negative. Plan: Full ventilator support, limit tidal volume to 6 mL/kg with adequate high PEEP. Full pressor support to maintain MAP > 65. Continue IV antibiotics in the treatment of MRSA pneumonia. Lasix 80 mg IV BID, cut down IVF to NS 50 cc/h. Continue IV heparin for concerns for PE. Follow pu lmonology recommendations. Follow cardiology recommendations. 3. Patient initially met sepsis criteria (leukocytosis of 22.3, febrile on admission with T-max 102.4, tachycardic with heart rate of 102 with + source of infection). UA negative for nitrite or leukocyte esterase. Blood culture negati ve at 96 hours. Lactic acid 4.4 to 1.4 following CODE BLUE. ID consulted, recommends continuing Ceftaroline and discontinuing Clindamycin due to diarrhea. Sputum culture 08/02 positive for MRSA + Inga. Plan: Decrease IVF to normal saline 50 mL per hour. Follow repeat blood culture. Follow sputum culture 08/06/2018. Started on Fluconazole for fungal coverage seen on cultures. Follow ID consultation. 4. As seen on chest x-ray. Passed swallow evaluation. Sputum culture positive for MRSA and Inga. Blood cultures negative at 96 hours. Plan: Continue Ceftaroline and Fluconazole IV. Management as above. Follow pulmonology consult. Continue Mucinex. 5. Echocardiogram recently performed [facility] shows EF 55-60% with grade 2 diastolic dysfunction. Repeat echocardiogram showing EF 50-55% with right ventricular pressure overload. Chest x-ray showing no significant interval ch lilian. Plan: Lasix 80 mg IV BID. Cardiology consulted, recommends DC metoprolol and amlodipine. Keep Mag > 2 and K > 4. Daily weights. Intake and outake. Follow cardiology recommendations. 6. Bicarbonate of 18. Possibly due to worsening renal dysfunction. Lactic acid elevated at 4.4 to 1.4. ABG shows normal pH this morning. Plan: Bicarbonate drip discontinued. Continue normal saline at 50 mL per hour. Follow nephrology recommendations. 7. BUN 77, creatinine 4.89, worsening. Likely secondary to clindamycin, Lasix use, sepsis. Bladder ultrasound shows no obstruction. Producing 30 mL of urine per hour. Plan: Avoid nephrotoxins. Continue NS at 50 cc/h. Replace potassium. Daily BMP. Follow autoimmune workup. Follow nephrology recommendations. 8. Hemoglobin 7.1, normocytic. Concerns due to hematoma. Plan: Daily CBC. Transfuse if hemoglobin less than 7. 9. Reviewed records from [facility]. MRI brain, echocardiogram, stress test all within normal limits. MRI L-spine within normal limits. EEG showing nonspecific changes. Carotid duplex showing less than 50% bilateral stenosis. Plan: Continue Plavix and Lipitor. Follow PT consult. Follow Neurology consult. Repeat CT brain and EEG pending. 10. Not in acute exacerbation. Plan: Continue Symbicort. DuoNeb scheduled and as needed for shortness of breath and wheezing. Continue Singulair. 11. BP 105/46. Plan: Hold antihypertensives due to hypotensive nature. Monitor vitals, adjust medications as necessary. 12. Plan: Continue Synthroid 13. Plan: Continue Amitriptyline and Seroquel. 14. Plan: Heparin drip. Protonix IV. Patient off sedation, very little response, seems is tracking with eyes when daughter present. Discussed with Dr. Aragon, plans for CT and EEG. Neurology on board. Patient appears fluid overloaded and anasarcic. Continuing Lasix IV and plans for dialysis. Nephrology, Cardiology and MICU on board. Treatment for MRSA Pneumonia and Inga. Continuing IV Antibiotics. ID on board. Prognosis is extremely guarded at this time.
--- NOTE | 2018-08-10 14:04 | EEG ---
ELECTROENCEPHALOGRAM REPORT DATE OF SERVICE: 08/10/2018. PREAMBLE: This is a 63-year-old female who had history of cardiac arrest. Patient also has history of CVA in the past. The study is performed for encephalopathy, rule out any epileptiform activity. CURRENT MEDICATIONS: Seroquel, Propofol, Percocet, Flagyl, Solu-Medrol, Levothroid, insulin, furosemide, Fentanyl, Plavix, atorvastatin and aspirin and Elavil 100 mg daily. EEG FINDINGS: A routine 21 channel awake digital EEG recording was accomplished utilizing the 10/20 internal system with bipolar and differential montages. The background consists of well-developed, moderately well-regulated, mixed frequency of 6 to 7 hertz theta mixed with 1 to 2 hertz generalized delta activity seen throughout the study. Background is not reactive to eye opening and closing. Photic driving response was not seen. Hyperventilation was not performed. No focal or generalized epileptiform activity was seen. Various stages of sleep were not also seen. IMPRESSION: This is an abnormal EEG due to background slowing of moderate degree. This is suggestive of generalized cerebral dysfunction, as can be seen in toxic metabolic encephalopathy or related to diffuse structural brain abnormality. No epileptiform activity was seen. Followup EEG recommended, if clinically indicated. MMODL / IJN: [id number] / [facility]ie
--- NOTE | 2018-08-10 14:16 | CT ---
EXAMINATION TYPE: CT brain wo con DATE OF EXAM: 08/10/2018 COMPARISON: 07/31/2018 HISTORY: Pneumonia, fever, severe weakness, AMS CT DLP: 1247.[address] of the brain was performed. The ventricles, basal cisterns and sulci overlying the cerebral convexities demonstrate mild enlargem ent. There is no evidence for intracranial hemorrhage or sulcal effacement. There is decreased attenuation about the periventricular white matter and deep white matter of both c erebral hemispheres, compatible with chronic small vessel ischemia. Differential diagnosis does inclu de demyelination. No mass effects are seen.No midline shift. Osseous calvarium is intact. If symptoms persist consider MRI. IMPRESSION: 1. Age related atrophic and chronic small vessel ischemic change without acute intracranial process s een at this time.
[2018-08-10] MEDS: PROPOFOL 1,000 MG in EMPTY BAG 1 BAG IV SCH ×2 (15:10→19:30)
--- NOTE | 2018-08-10 18:16 | PN ---
PROGRESS NOTE The patient is seen for followup for acute kidney injury. Her renal function continues to deteriorate, although the creatinine not has not jumped significantly. Urine output has improved and staying at about 20-30 mL an hour as opposed to the 10 and 0 that we had previously. The new development is the fact that the patient has not had any improvement in her mentation and has not been responding much even though the sedation has been off since yesterday. The patient's family is present at bedside and have discussed renal replacement therapy. At this time they are agreeable and will proceed with dialysis given the mental status changes in the setting of worsening renal failure. On examination this morning, patient is on the vent and she winces on her own and not following commands. The FiO2 is at 45%. Levophed at about 0.04 mcg. The patient is maintained on bicarb drip at 50 mL an hour. She has been getting Lasix 80 mg IV Q 12 hours. Blood pressure this morning when patient was seen was 118/52, heart rate about 85 per minute. PHYSICAL EXAMINATION: Examination of the heart S1, S2. Examination of lungs bilateral breath sounds are heard. Abdomen is soft, obese, nontender. Exam of lower extremities shows edema 2+ bilaterally. PAINTER SET exam cannot be performed. The patient is not following commands. She is not waking up with the sedation being turned off. LABS: Hemoglobin 7.1, sodium 136, potassium 4.4, BUN 77, serum creatinine 4.89. ASSESSMENT: 1. Acute kidney injury, acute tubular necrosis, currently nonoliguric. Urine output seems to have improved, although serum creatinine is high again. Given the fact that the patient's mentation remains impaired, we will need to proceed with renal replacement therapy to see if there is a change in mentation once the patient has received a few treatments of dialysis. Otherwise, there will be a consideration for anoxic encephalopathy. 2. Metabolic acidosis. Maintained on 50 mL an hour of bicarb drip. This is expected to improve with dialysis. 3. Vent dependent respiratory failure secondary to pneumonia. 4. Pneumonia from MRSA and Inga. 5. Anemia with no active bleeding noted. PLAN: Proceed with the renal replacement therapy and reassess mentation after a few treatments of hemodialysis. We can discontinue the bicarb drip after her second treatment. Continue antibiotics and anti fungal treatment. MMODL / IJN: [id number] /
[2018-08-10 19:32] LABS: Glucose,Whole Blood 119 mg/dL (75-99)
[2018-08-10] MEDS: DOCUSATE 100 MG CAP PO SCH (21:28)
[2018-08-10] MEDS: AMITRIPTYLINE HCL 50 MG TAB PO SCH (21:28)
[2018-08-10] MEDS: MONTELUKAST 10 MG TAB PO SCH (21:28)
[2018-08-10] MEDS: QUEtiapine 200 MG TAB PO SCH (21:29)
--- NOTE | 2018-08-10 21:33 | P.PN ---
Subjective Progress Note Date: 08/10/18 Principal diagnosis: Left upper lobe pneumonia The patient is afebrile, the patient is hemodynamically stable, the patient FiO2 is stable at 45%, patient has been tolerating her tube feeds, continue to have diarrhea however no worsening has been noticed, stool for C. diff has been negative, patient had did have spontaneous opening of the eyes when the sedation is cutdown Objective - Vital Signs Vital signs: Vital Signs Temp 99.1 F 08/10/18 08:00 Pulse 86 08/10/18 10:30 Resp 29 H 08/10/18 10:30 BP 114/79 08/09/18 11:00 Pulse Ox 97 08/10/18 10:30 Intake & Output 08/09/18 08/10/18 08/10/18 18:59 06:59 18:59 Intake Total 2879.696 1670.358 124 Output Total 263 415 30 Balance 5010.820 4004.358 94 Weight 96.3 kg 97.9 kg 97.9 kg Intake: IV 466 728 56 Ceftaroline Fosamil 300 50 mg In Sodium Chloride 0.9 % 50 ml @ 100 mls/hr IVPB Q12HR [facility] Rx#:[id number] Clindamycin 900 mg In 50 Dextrose 5% in Water 50 ml @ 50 mls/hr IVPB Q8HR [facility] Rx#:[id number] Normal Saline Pressure 66 78 6 bag Sodium Chloride 0.45% 1, 600 50 000 ml @ 50 mls/hr IV . Q22H [facility] with Sodium Bicarb (1 Meq/ml) 100 ml Rx#:[id number] Sodium Chloride 0.9% 1, 350 000 ml @ 50 mls/hr IV . Q20H [facility] Rx#:[id number] Intake, IV Titration 774.832 123.358 Amount Ceftaroline Fosamil 200 50 mg In Sodium Chloride 0.9 % 50 ml @ 100 mls/hr IVPB Q12HR [facility] Rx#:[id number] Fluconazole in NaCl,Iso- 50 Osm 100 mg In Saline 1 50ml.bag @ 50 mls/hr IVPB DAILY [facility] Rx#:[id number] Heparin Sod,Pork in 0.45% 250.000 NaCl 25,000 unit In 0.45 % NaCl 1 250ml.bag @ 12 UNITS/KG/HR 9.96 mls/hr IV .Q24H [facility] Rx#: [id number] Norepinephrine 4 mg In 73.358 Sodium Chloride 0.9% 250 ml @ 0.05 MCG/KG/MIN 16. 029 mls/hr IV .[id number] [facility] Rx#:[id number] Propofol 1,000 mg In 95.141 Empty Bag 1 bag @ Titrate IV .Q0M [facility] Rx#: [id number] Sodium Chloride 0.45% 1, 250 50 000 ml @ 50 mls/hr IV . Q22H [facility] with Sodium Bicarb (1 Meq/ml) 100 ml Rx#:[id number] fentaNYL (PF) 1,000 mcg 79.691 In Sodium Chloride 0.9% 80 ml @ 1 MCG/KG/HR 9.64 mls/hr IV .[id number] [facility] Rx #:[id number] Tube Feeding 380 494 38 Other 150 90 30 Output: Urine 263 415 30 Other: Voiding Method Indwelling Catheter Indwelling Catheter Indwelling Catheter ABP, PAP, CO, CI - Last Documented Arterial Blood Pressure 105/46 - Labs CBC & Chem 7: 08/10/18 04:20 08/10/18 04:20 Labs: Abnormal Lab Results - Last 24 Hours (Table) 08/06/18 08/09/18 08/09/18 Range/Units 09:30 11:55 17:36 WBC (3.8-10.6) k/uL RBC (3.80-5.40) m/uL Hgb (11.4-16.0) gm/dL Hct (34.0-46.0) % MCHC (31.0-37.0) g/dL RDW (11.5-15.5) % Neutrophils # (1.3-7.7) k/uL Lymphocytes # (1.0-4.8) k/uL ABG pH (7.35-7.45) ABG pO2 (83-108) mmHg ABG HCO3 (21-25) mmol/L ABG O2 Saturation (94-97) % Sodium (137-145) mmol/L Carbon Dioxide (22-30) mmol/L BUN (7-17) mg/dL Creatinine (0.52-1.04) mg/dL Glucose (74-99) mg/dL POC Glucose (mg/dL) 139 H 137 H (75-99) mg/dL Calcium (8.4-10.2) mg/dL Phosphorus (2.5-4.5) mg/dL AST (14-36) U/L Alkaline Phosphatase (38-126) U/L Total Protein (6.3-8.2) g/dL Albumin (3.5-5.0) g/dL Viral Test See Below H 08/10/18 08/10/18 08/10/18 Range/Units 00:59 04:20 04:20 WBC 20.6 H (3.8-10.6) k/uL RBC 2.54 L (3.80-5.40) m/uL Hgb 7.1 L (11.4-16.0) gm/dL Hct 23.4 L (34.0-46.0) % MCHC 30.4 L (31.0-37.0) g/dL RDW 16.6 H (11.5-15.5) % Neutrophils # 19.5 H (1.3-7.7) k/uL Lymphocytes # 0.5 L (1.0-4.8) k/uL ABG pH (7.35-7.45) ABG pO2 (83-108) mmHg ABG HCO3 (21-25) mmol/L ABG O2 Saturation (94-97) % Sodium 136 L (137-145) mmol/L Carbon Dioxide 18 L (22-30) mmol/L BUN 77 H (7-17) mg/dL Creatinine 4.89 H (0.52-1.04) mg/dL Glucose 116 H (74-99) mg/dL POC Glucose (mg/dL) 138 H (75-99) mg/dL Calcium 6.7 L (8.4-10.2) mg/dL Phosphorus 7.7 H (2.5-4.5) mg/dL AST 59 H (14-36) U/L Alkaline Phosphatase 151 H (38-126) U/L Total Protein 5.1 L (6.3-8.2) g/dL Albumin 2.3 L (3.5-5.0) g/dL Viral Test 08/10/18 08/10/18 Range/Units 06:04 08:57 WBC (3.8-10.6) k/uL RBC (3.80-5.40) m/uL Hgb (11.4-16.0) gm/dL Hct (34.0-46.0) % MCHC (31.0-37.0) g/dL RDW (11.5-15.5) % Neutrophils # (1.3-7.7) k/uL Lymphocytes # (1.0-4.8) k/uL ABG pH 7.33 L (7.35-7.45) ABG pO2 112 H (83-108) mmHg ABG HCO3 19 L (21-25) mmol/L ABG O2 Saturation 98.4 H (94-97) % Sodium (137-145) mmol/L Carbon Dioxide (22-30) mmol/L BUN (7-17) mg/dL Creatinine (0.52-1.04) mg/dL Glucose (74-99) mg/dL POC Glucose (mg/dL) 141 H (75-99) mg/dL Calcium (8.4-10.2) mg/dL Phosphorus (2.5-4.5) mg/dL AST (14-36) U/L Alkaline Phosphatase (38-126) U/L Total Protein (6.3-8.2) g/dL Albumin (3.5-5.0) g/dL Viral Test Microbiology - Last 24 Hours (Table) 08/06/18 10:30 Blood Culture - Preliminary Blood No Growth after 72 hours Assessment and Plan Assessment: 1-patient with left upper lobe pneumonia with a sputum culture has been finalized as MRSA , subsequent worsening of her clinical condition and cardiac arrest and status post resuscitation and intubation as well as bronchoscopy----bronchoscopy cultures are currently growing Inga only 2-patient is on SSRI contraindicating the use of Zyvox 3-patient with significant diarrhea, antibiotic associated ,stool for C. diff is negative 4- leukocytosis more likely secondary steroids clinically no evidence of any worsening infection (1) Sepsis Current Visit: Yes Status: Acute Code(s): A41.9 - SEPSIS, UNSPECIFIED ORGANISM SNOMED Code(s): 85257846 (2) Nosocomial pneumonia Current Visit: Yes Status: Acute Code(s): J18.9 - PNEUMONIA, UNSPECIFIED ORGANISM; Y95 - NOSOCOMIAL CONDITION SNOMED Code(s): 977853984 Plan: 1- the patient continued on Teflaro 200 mg twice a day dose has been adjusted to kidney function along with Flagyl 500 every 8 hours 2-continue Diflucan for possible oropharyngeal candidiasis Follow-up on clinical condition and adjust antibiotics further if needed Family of the bedside questions concerned were answered
[2018-08-10] MEDS: IPRATROPIUM-ALBUTEROL 3 ML NEB INHALATION PRN (23:18)
[2018-08-10 23:32] LABS: Glucose,Whole Blood 146 mg/dL (75-99)
[2018-08-11] MEDS: INSULIN ASPART (NovoLOG) 100 UNIT/ML VIAL SQ SCH ×5 (00:12→22:13)
[2018-08-11] MEDS: methylPREDNISolone SOD SUCCI 125 MG/2 ML VIAL IV SCH ×4 (00:13→18:22)
[2018-08-11] MEDS: IPRATROPIUM-ALBUTEROL 3 ML NEB INHALATION PRN ×2 (03:03→23:04)
[2018-08-11 04:40] LABS: Hepatitis B Surface AB- Quant 3.5 mIU/mL
[2018-08-11] MEDS: fentaNYL (PF) 1,000 MCG in SODIUM CHLORIDE 0.9% 80 ML IV SCH ×2 (04:59→17:23)
[2018-08-11 05:11] LABS: Anisocytosis Slight; Basophils % (A) 0 %; Eosinophils % (A) 0 %; HCT 20.4 % (34.0-46.0); Hypochromasia Slight; Lymphocytes # (A) 0.4 k/uL (1.0-4.8); Lymphocytes % (A) 2 %; MCH 28.8 pg (25.0-35.0); MCHC 31.9 g/dL (31.0-37.0); MCV 90.4 fL (80.0-100.0); Mean Platelet Volume 8.2; Monocytes # (A) 0.4 k/uL (0-1.0); Monocytes % (A) 2 %; Neutrophils # (A) 17.4 k/uL (1.3-7.7); Neutrophils % (A) 95 %; Platelet Count 186 k/uL (150-450); RBC 2.25 m/uL (3.80-5.40); RDW 16.7 % (11.5-15.5); WBC 18.3 k/uL (3.8-10.6)
[2018-08-11 05:12] LABS: Albumin 2.1 g/dL (3.5-5.0); Calcium 7.2 mg/dL (8.4-10.2); Magnesium 1.8 mg/dL (1.6-2.3); Phosphorus 6.7 mg/dL (2.5-4.5); Potassium 4.1 mmol/L (3.5-5.1); Total Bilirubin 0.7 mg/dL (0.2-1.3); Total Protein 4.7 g/dL (6.3-8.2)
[2018-08-11 05:16] LABS: HGB 6.5 gm/dL (11.4-16.0)
[2018-08-11 06:00] LABS: Glucose,Whole Blood 161 mg/dL (75-99)
[2018-08-11] MEDS: PROPOFOL 1,000 MG in EMPTY BAG 1 BAG IV SCH ×2 (07:15→18:22)
--- NOTE | 2018-08-11 07:16 | P.PN ---
Subjective Progress Note Date: 08/11/18 Principal diagnosis: Acute hypoxic respiratory failure This is a pleasant 63-year-old female patient who I follow in the office as an outpatient with known history of coronary artery disease and prior coronary artery stenting of the RCA, hypertension, dyslipidemia, as well as multiple psychiatric disorder, initially was admitted to the hospital with what it seems to be pneumonia and subsequently she was coded was PDA and was transferred to the intensive care unit. Currently the patient is intubated and she is on ventilator and the history was taken from her daughter as well as from the nurse taking care of the patient. I just saw the patient in the office last week and she was doing quite well from the cardiovascular standpoint overview. About 4 days ago, the patient was found to be weak as well as slightly confused by her daughter. She was experiencing some cough without any sputum and without any fever or chills. Because of that her daughter brought her to the hospital for further evaluation. Please note that the patient's has been was getting t reated for MRSA in the lower extremities and he was going to do one to clinic for that. The patient initially was admitted to a non-telemetry floor for pneumonia and she was on antibiotic. Yesterday, she was agitated and she was given Ativan but subsequently she developed change in mental status and subsequently she did have PDA. After that the patient was intubated and transferred to the intensive care unit. The patient currently still intubated. She is hemodynamically unstable and requiring quite high dose of Levophed. She is in normal sinus mechanism. The hemoglobin is 7.5, the creatinine is 2.7, and I did review the chest x-ray from the morning which revealed bilateral infiltrate and questionable bilateral pneumonia. There is also a possibility that the patient was aspirated during the cold yesterday. The BNP is 45,000. The echocardiogram revealed moderate to severe tricuspid regurgitation, moderate to severe pulmonary hypertension, and preserved left ventricle systolic function On follow-up with the patient today, August 112018, she is sedated back and she continues to be intubated on mechanical ventilation. Hemodynamically she is a stable and she's not requiring any more norepinephrine. She continues to be in normal sinus mechanism. She underwent dialysis yesterday. She underwent also a CTA of the brain. Neurology on the case. She continues to be on dual a ntiplatelet therapy. She continues to be on Lasix IV as well. Beside that, the hemoglobin is low and she is going to likely to have blood transfusion Objective - Vital Signs Vital signs: Vital Signs Temp 97.7 F 08/11/18 04:00 Pulse 79 08/11/18 07:00 Resp 28 H 08/11/18 07:00 BP 156/72 08/10/18 19:48 Pulse Ox 100 08/11/18 07:00 Intake & Output 08/10/18 08/11/18 08/11/18 18:59 06:59 18:59 Intake Total 4604.390 2098.537 94 Output Total 425 435 35 Balance 711.407 8066.537 59 Weight 97.9 kg 99 kg Intake: IV 616 672 56 Normal Saline Pressure 66 72 6 bag Sodium Chloride 0.45% 1, 550 600 50 000 ml @ 50 mls/hr IV . Q22H [facility] with Sodium Bicarb (1 Meq/ml) 100 ml Rx#:[id number] Intake, IV Titration 115.664 381.537 Amount Ceftaroline Fosamil 200 50 mg In Sodium Chloride 0.9 % 50 ml @ 100 mls/hr IVPB Q12HR [facility] Rx#:[id number] Fluconazole in NaCl,Iso- 50 Osm 100 mg In Saline 1 50ml.bag @ 50 mls/hr IVPB DAILY [facility] Rx#:[id number] Norepinephrine 4 mg In 211.049 Sodium Chloride 0.9% 250 ml @ 0.05 MCG/KG/MIN 16. 029 mls/hr IV .[id number] [facility] Rx#:[id number] Propofol 1,000 mg In 15.664 170.488 Empty Bag 1 bag @ Titrate IV .Q0M [facility] Rx#: [id number] Tube Feeding 418 456 38 Other 90 150 Output: Urine 425 435 35 Hemodialysis 0 Other: Voiding Method Indwelling Catheter Indwelling Catheter ABP, PAP, CO, CI - Last Documented Arterial Blood Pressure 126/51 - Constitutional General appearance: Present: no acute distress - Respiratory Respiratory: bilateral: CTA - Cardiovascular Rhythm: regular - Labs CBC & Chem 7: 08/11/18 04:49 08/11/18 04:49 Labs: Abnormal Lab Results - Last 24 Hours (Table) 08/10/18 08/10/18 08/10/18 Range/Units 08:57 11:53 12:41 WBC (3.8-10.6) k/uL RBC (3.80-5.40) m/uL Hgb (11.4-16.0) gm/dL Hct (34.0-46.0) % RDW (11.5-15.5) % Neutrophils # (1.3-7.7) k/uL Lymphocytes # (1.0-4.8) k/uL ABG pH 7.33 L (7.35-7.45) ABG pO2 112 H (83-108) mmHg ABG HCO3 19 L (21-25) mmol/L ABG O2 Saturation 98.4 H (94-97) % BUN (7-17) mg/dL Creatinine (0.52-1.04) mg/dL Glucose (74-99) mg/dL POC Glucose (mg/dL) 106 H 111 H (75-99) mg/dL Calcium (8.4-10.2) mg/dL Phosphorus (2.5-4.5) mg/dL AST (14-36) U/L Alkaline Phosphatase (38-126) U/L Total Protein (6.3-8.2) g/dL Albumin (3.5-5.0) g/dL 08/10/18 08/10/18 08/11/18 Range/Units 19:17 23:29 04:49 WBC 18.3 H (3.8-10.6) k/uL RBC 2.25 L (3.80-5.40) m/uL Hgb 6.5 L* (11.4-16.0) gm/dL Hct 20.4 L (34.0-46.0) % RDW 16.7 H (11.5-15.5) % Neutrophils # 17.4 H (1.3-7.7) k/uL Lymphocytes # 0.4 L (1.0-4.8) k/uL ABG pH (7.35-7.45) ABG pO2 (83-108) mmHg ABG HCO3 (21-25) mmol/L ABG O2 Saturation (94-97) % BUN (7-17) mg/dL Creatinine (0.52-1.04) mg/dL Glucose (74-99) mg/dL POC Glucose (mg/dL) 119 H 146 H (75-99) mg/dL Calcium (8.4-10.2) mg/dL Phosphorus (2.5-4.5) mg/dL AST (14-36) U/L Alkaline Phosphatase (38-126) U/L Total Protein (6.3-8.2) g/dL Albumin (3.5-5.0) g/dL 08/11/18 08/11/18 Range/Units 04:49 05:57 WBC (3.8-10.6) k/uL RBC (3.80-5.40) m/uL Hgb (11.4-16.0) gm/dL Hct (34.0-46.0) % RDW (11.5-15.5) % Neutrophils # (1.3-7.7) k/uL Lymphocytes # (1.0-4.8) k/uL ABG pH (7.35-7.45) ABG pO2 (83-108) mmHg ABG HCO3 (21-25) mmol/L ABG O2 Saturation (94-97) % BUN 67 H (7-17) mg/dL Creatinine 3.39 H (0.52-1.04) mg/dL Glucose 136 H (74-99) mg/dL POC Glucose (mg/dL) 161 H (75-99) mg/dL Calcium 7.2 L (8.4-10.2) mg/dL Phosphorus 6.7 H (2.5-4.5) mg/dL AST 59 H (14-36) U/L Alkaline Phosphatase 130 H (38-126) U/L Total Protein 4.7 L (6.3-8.2) g/dL Albumin 2.1 L (3.5-5.0) g/dL Microbiology - Last 24 Hours (Table) 08/06/18 10:30 Blood Culture - Preliminary Blood No Growth after 96 hours Assessment and Plan Assessment: Assessment #1 acute hypoxic respiratory failure #2 bilateral pneumonia, with MRSA #3 acute renal failure #4 anemia #5 known coronary artery disease and prior coronary artery stenting #6 multiple comorbid conditions. Plan #1 continue the current medical regimen #2 continue dual antiplatelet therapy #3 blood transfusion with dialysis today #4 follow-up with the patient.
[2018-08-11 07:17] LABS: ABG Base Excess -1.8 mmol/L; ABG HCO3 23 mmol/L (21-25); ABG Oxygen Saturation 94.5 % (94-97); ABG PCO2 40 mmHg (35-45); ABG PH 7.37 (7.35-7.45); ABG PO2 76 mmHg (83-108); ABG TCO2 25 mmol/L (19-24)
[2018-08-11] MEDS: IPRATROPIUM-ALBUTEROL 3 ML NEB INHALATION SCH ×4 (07:20→19:16)
--- NOTE | 2018-08-11 07:44 | XR ---
EXAMINATION TYPE: XR chest 1V portable DATE OF EXAM: 08/11/2018 CLINICAL HISTORY: Difficulty breathing progress study. TECHNIQUE: Single AP portable upright view of the chest is obtained. COMPARISON: Chest x-ray from one day earlier and older studies. FINDINGS: An endotracheal tube, orogastric tube, and left-sided subclavian central venous catheter a re all stable in appearance. Overlying EKG leads are redemonstrated. Underlying scoliotic curvature i s again seen. There is persistent cardiomegaly without prostatic thoracic aorta. There is persistent diffuse bilateral of the ulnar and interstitial opacities slightly more prominent in the left lung ve rsus right. No large pleural effusion or pneumothorax is evident. IMPRESSION: Overall stable findings, cardiomegaly with diffuse alveolar and interstitial edema and/ or infiltrates slightly more prominent left lung versus right lung all are redemonstrated.
[2018-08-11] MEDS: SODIUM CHLORIDE 0.45% 1,000 ML with SODIUM BICARB (1 MEQ/ML) 100 ML IV SCH ×2 (08:36)
[2018-08-11] MEDS: ASPIRIN 81 MG PO SCH (08:36)
[2018-08-11] MEDS: PANTOPRAZOLE 40 MG/10 ML VIAL IVP SCH ×2 (08:38→22:14)
[2018-08-11] MEDS: CALCIUM ACETATE 667 MG CAP PO SCH ×3 (08:38→18:15)
[2018-08-11] MEDS: FUROSEMIDE 10 MG/ML 10 ML VIAL IV SCH ×2 (08:38→22:13)
[2018-08-11] MEDS: LEVOTHYROXINE IVP 100 MCG/5 ML VIAL IV SCH (08:39)
[2018-08-11] MEDS: metroNIDAZOLE 500 MG TAB OG-TUBE SCH ×3 (08:39→22:16)
[2018-08-11] MEDS: SERTRALINE 100 MG TAB PO SCH (08:39)
[2018-08-11] MEDS: CEFTAROLINE FOSAMIL IVPB SCH ×2 (08:42→22:12)
[2018-08-11] MEDS: ATORVASTATIN 20 MG TAB PO SCH (08:42)
[2018-08-11] MEDS: SODIUM CHLORIDE 0.9% IVPB SCH ×2 (08:42→22:12)
[2018-08-11] MEDS: NOREPINEPHRINE 4 MG in SODIUM CHLORIDE 0.9% 250 ML IV SCH (08:42)
[2018-08-11] MEDS: FLUCONAZOLE IN NACL,ISO-OSM 100 MG in SALINE 1 50ML.BAG IVPB SCH (08:42)
[2018-08-11] MEDS: CLOPIDOGREL 75 MG TAB PO SCH (08:43)
[2018-08-11] MEDS: CHLORHEXIDINE GLUCONATE 15 ML CUP MUCOUS MEM SCH ×2 (08:43→22:13)
[2018-08-11] MEDS: FOLIC ACID 1 MG TAB PO SCH (08:43)
--- NOTE | 2018-08-11 10:10 | P.PN ---
Subjective Progress Note Date: 08/11/18 Since yesterday, patient has no further change. Patient continues to be intubated. Patient was on propofol 25 g. It was discontinued for patient to be examined. Patient had an EEG performed, which revealed background slowing of moderate degree, suggestive of toxic metabolic encephalopathy or related to diffuse structural brain abnormality. No epileptiform activity was seen. Computed tomography scan of head from yesterday showed no acute process. Small vessel disease. Some lacunar strokes in the basal ganglia bilaterally. Patient had undergone hemodialysis yesterday, and will be receiving another hemodialysis today. Objective - Vital Signs Vital signs: Vital Signs Temp 97.9 F 08/11/18 08:00 Pulse 76 08/11/18 09:30 Resp 22 08/11/18 09:30 BP 114/79 08/11/18 09:30 Pulse Ox 96 08/11/18 09:00 Intake & Output 08/10/18 08/11/18 08/11/18 18:59 06:59 18:59 Intake Total 4259.520 4593.537 306 Output Total 425 435 95 Balance 770.143 6808.537 211 Weight 97.9 kg 99 kg Intake: IV 616 672 168 Normal Saline Pressure 66 72 18 bag Sodium Chloride 0.45% 1, 550 600 150 000 ml @ 50 mls/hr IV . Q22H [facility] with Sodium Bicarb (1 Meq/ml) 100 ml Rx#:[id number] Intake, IV Titration 115.664 381.537 100 Amount Ceftaroline Fosamil 200 50 50 mg In Sodium Chloride 0.9 % 50 ml @ 100 mls/hr IVPB Q12HR [facility] Rx#:[id number] Fluconazole in NaCl,Iso- 50 50 Osm 100 mg In Saline 1 50ml.bag @ 50 mls/hr IVPB DAILY [facility] Rx#:[id number] Norepinephrine 4 mg In 211.049 Sodium Chloride 0.9% 250 ml @ 0.05 MCG/KG/MIN 16. 029 mls/hr IV .[id number] [facility] Rx#:[id number] Propofol 1,000 mg In 15.664 170.488 Empty Bag 1 bag @ Titrate IV .Q0M [facility] Rx#: [id number] Tube Feeding 418 456 38 Other 90 150 Output: Urine 425 435 95 Hemodialysis 0 Other: Voiding Method Indwelling Catheter Indwelling Catheter Indwelling Catheter ABP, PAP, CO, CI - Last Documented Arterial Blood Pressure 121/65 - Exam Patient is on mechanical ventilation, when the sedation was discontinued, patient was awake with eyes open, blinking normally. She follows only minimal commands, like closing her eyes on command, but needs repeated instruction for her to follow the direction. Patient continues to be quadriplegic. Not able to wiggle her feet, toes, arms or legs. Reflexes are symmetric, 1+ in the biceps, trace at the brachioradialis. 2+ to 3 and bilateral knees and plantars are Babinski bilaterally. - Labs CBC & Chem 7: 08/11/18 04:49 08/11/18 04:49 Labs: Abnormal Lab Results - Last 24 Hours (Table) 08/10/18 08/10/18 08/10/18 Range/Units 11:53 12:41 19:17 WBC (3.8-10.6) k/uL RBC (3.80-5.40) m/uL Hgb (11.4-16.0) gm/dL Hct (34.0-46.0) % RDW (11.5-15.5) % Neutrophils # (1.3-7.7) k/uL Lymphocytes # (1.0-4.8) k/uL ABG pO2 (83-108) mmHg ABG Total CO2 (19-24) mmol/L BUN (7-17) mg/dL Creatinine (0.52-1.04) mg/dL Glucose (74-99) mg/dL POC Glucose (mg/dL) 106 H 111 H 119 H (75-99) mg/dL Calcium (8.4-10.2) mg/dL Phosphorus (2.5-4.5) mg/dL AST (14-36) U/L Alkaline Phosphatase (38-126) U/L Total Protein (6.3-8.2) g/dL Albumin (3.5-5.0) g/dL Crossmatch 08/10/18 08/11/18 08/11/18 Range/Units 23:29 04:49 04:49 WBC 18.3 H (3.8-10.6) k/uL RBC 2.25 L (3.80-5.40) m/uL Hgb 6.5 L* (11.4-16.0) gm/dL Hct 20.4 L (34.0-46.0) % RDW 16.7 H (11.5-15.5) % Neutrophils # 17.4 H (1.3-7.7) k/uL Lymphocytes # 0.4 L (1.0-4.8) k/uL ABG pO2 (83-108) mmHg ABG Total CO2 (19-24) mmol/L BUN 67 H (7-17) mg/dL Creatinine 3.39 H (0.52-1.04) mg/dL Glucose 136 H (74-99) mg/dL POC Glucose (mg/dL) 146 H (75-99) mg/dL Calcium 7.2 L (8.4-10.2) mg/dL Phosphorus 6.7 H (2.5-4.5) mg/dL AST 59 H (14-36) U/L Alkaline Phosphatase 130 H (38-126) U/L Total Protein 4.7 L (6.3-8.2) g/dL Albumin 2.1 L (3.5-5.0) g/dL Crossmatch 08/11/18 08/11/18 08/11/18 Range/Units 05:57 07:00 07:14 WBC (3.8-10.6) k/uL RBC (3.80-5.40) m/uL Hgb (11.4-16.0) gm/dL Hct (34.0-46.0) % RDW (11.5-15.5) % Neutrophils # (1.3-7.7) k/uL Lymphocytes # (1.0-4.8) k/uL ABG pO2 76 L (83-108) mmHg ABG Total CO2 25 H (19-24) mmol/L BUN (7-17) mg/dL Creatinine (0.52-1.04) mg/dL Glucose (74-99) mg/dL POC Glucose (mg/dL) 161 H (75-99) mg/dL Calcium (8.4-10.2) mg/dL Phosphorus (2.5-4.5) mg/dL AST (14-36) U/L Alkaline Phosphatase (38-126) U/L Total Protein (6.3-8.2) g/dL Albumin (3.5-5.0) g/dL Crossmatch See Detail Microbiology - Last 24 Hours (Table) 08/06/18 10:30 Blood Culture - Preliminary Blood No Growth after 96 hours Assessment and Plan Assessment: * Altered mental status, likely related to toxic metabolic encephalopathy. * Recent history of cardiac arrest on 08/05/2018. Patient may have some component of hypoxic/anoxic encephalopathy. Patient however is awake and following very minimal commands, like closing her eyes on command, which appears meaningful response. * Generalized weakness of arms and legs, quadriparesis, probably related to encephalopathy. Guillain-Hernandez Syndrome unlikely, as patient has preserved reflexes. She in fact has hyperreflexia with bilateral Babinskis, suggestive of upper motor neuron dysfunction, which could be related to cardiac arrest, rule out cervical spinal stenosis/transverse myelitis. Critical illness neuropathy also less likely due to preserved reflexes. * Pneumonia, with recent history of septic shock. * Ventilator-dependent respiratory failure. * Acute renal failure, worsening, now getting hemodialysis * Anemia with hemoglobin 7.1 * Recent history of stroke TIA. * Coronary artery disease with history of cardiac stenting. * X tobacco use. * Possible underlying mild cognitive impairment Plan: Patient's mental status probably affected related to toxic metabolic enceph alopathy. Patient is awake, follows very minimal commands (closing eyes and keeping eyes closed on command), indicating some meaningful response, but very weak in her arms and legs. Computed tomography scan of the head showed no evidence of significant ischemia, or a brain stem stroke. On detailed review of the CAT scan, there is hypodensity in the right pontine region which was not seen in the previous computed tomography scan. It also showed old lacunae in the left thalamus that was seen in the previous computed tomography scan. There are some small tiny hypodensity in the right basal ganglia also on this current study. Ideally MRI of the brain and cervical spine may be significantly beneficial, but cannot be performed in this hospital as patient is on ventilator. Continue dual antiplatelet medication including aspirin 81 mg and Plavix 75 mg EEG showed moderate encephalopathy. I will check acetylcholine receptor antibodies, hemoglobin A1c. Patient is getting hemodialysis, which may help with overall encephalopathy. Avoid opiates or other narcotics/sedatives. Treatment of other medical conditions as per internal medicine/critical care. We will follow clinically. Discussed with patient's in detail.
--- NOTE | 2018-08-11 10:30 | CONS ---
CONSULTATION This is a 63-year-old female. The patient was seen on consultation for placement of the dialysis catheter. The patient has been intubated. The patient had history of stroke symptoms. She was seen at [facility] and she has been readmitted. She has history of COPD, pneumonia, hypertension and memory impairment. PHYSICAL EXAMINATION: The patient was seen in her room. The patient has been intubated. Neck is supple. The patient's chest has crackles bilateral. Swelling of the lower extremities with fluid retention. PLAN: Placement of the dialysis catheter. Risks and complications discussed. MMODL / IJN: [id number] /
--- NOTE | 2018-08-11 10:48 | PCN ---
PROCEDURE NOTE PREOPERATIVE DIAGNOSIS: Acute on chronic renal failure. PROCEDURE: Ultrasound-guided dialysis catheter placed right femoral approach. DESCRIPTION OF PROCEDURE: The patient was seen in the intensive care unit. Right groin were prepped and draped in the usual sterile manner and 1% lidocaine infiltrated. Ultrasound-guided micropuncture introduced in the right femoral vein and micropuncture guidewire was passed and 4- Arabic dilator advanced on top of the guidewire. Then we passed a regular guidewire and micropuncture guide was removed and dilator was advanced and then we placed a dialysis catheter on the top of the guidewire. The guidewire was removed. Flushed with heparin saline and hep-locked and secured with 3-0 nylon. Dressing applied. Patient tolerated the procedure well. ELMAL / JAMARN: [id number] /
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
[2018-08-11 11:17] LABS: Glucose,Whole Blood 130 mg/dL (75-99)
[2018-08-11] MEDS ORDERED: HEPARIN SODIUM 1,000 UN/ML (10ML VL) ONE (12:22)
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
--- NOTE | 2018-08-11 16:42 | PN ---
PROGRESS NOTE Patient was seen this morning. She tolerated her dialysis fairly well yesterday. Patient will be dialyzed again today. Urine output remains at about 20 to 35 mL/hour. Patient has been off of Levophed. She had issues with the vent and therefore patient did receive some sedation again. On examination this morning, patient is sedated. She is on the vent. Blood pressure was 109/49, heart rate of 80 per minute. Patient is afebrile. EXAMINATION OF THE HEART: S1 and S2. EXAMINATION OF LUNGS: Bilateral breath sounds are heard. ABDOMEN: Soft, non-tender. Examination of lower extremities shows edema 2+ bilaterally. DRY MAN exam cannot be performed. Labs show hemoglobin this morning 6.5, sodium 138, potassium 4.1, BUN 67, serum creatinine 3.39. ASSESSMENT: 1. Acute kidney injury, acute tubular necrosis, currently nonoliguric. Patient received dialysis yesterday. We will dialyze her again today; this will be her second treatment. We will also try to get a little bit more fluid off. Urine output remains at about 20 to 40 mL/hour. Continue with the IV Lasix as well. 2. Volume overload. Continue IV Lasix. Increase UF today with dialysis. We will plan for dialysis again tomorrow morning. 3. Altered mentation. Patient is being followed by Neurology. Will reassess after 3 to 4 treatments of dialysis. 4. Sepsis from fungal pneumonia and methicillin-resistant Staphylococcus aeruginosa pneumonia, maintained on antifungal treatment, status post vancomycin, currently on ceftaroline. 5. Acute hypoxic respiratory failure, currently on the vent. 6. Anemia, with no active bleeding noted. PLAN: Repeat hemodialysis today. We will try UF of 500 mL to a liter and we will dialyze the patient again tomorrow with UF of about 1 to 2 liters as tolerated. Continue with IV Lasix. Continue with phosphate binders. Check stool for occult blood. Transfuse one unit packed RBCs prior to dialysis. Check iron studies. We will try to obtain the iron profile on the labs done this morning prior to transfusion. MMODL / IJN: [id number] /
[2018-08-11 17:02] LABS: Glucose,Whole Blood 123 mg/dL (75-99)
[2018-08-11 18:57] LABS: Hemoglobin A1C 5.3 % (4.0-6.0)
[2018-08-11 20:53] LABS: Glucose,Whole Blood 126 mg/dL (75-99)
[2018-08-11] MEDS: AMITRIPTYLINE HCL 50 MG TAB PO SCH (22:12)
[2018-08-11] MEDS: DOCUSATE 100 MG CAP PO SCH (22:13)
[2018-08-11] MEDS: MONTELUKAST 10 MG TAB PO SCH (22:13)
[2018-08-11] MEDS: QUEtiapine 200 MG TAB PO SCH (22:14)
--- NOTE | 2018-08-11 23:09 | P.PN ---
Subjective Progress Note Date: 08/11/18 Principal diagnosis: Left upper lobe pneumonia The patient remains to be afebrile, the patient did get a dialysis catheter yesterday and he received hemodialysis and with 2nd hemodialysis treatment today, the patient FiO2 is stable at 45%, patient has been tolerating her tube feeds, continue to have diarrhea however no worsening has been noticed, stool for C. diff has been negative, patient continued to have problems with mentation and pulmonary is considering tracheostomy and PEG tube placement Objective - Vital Signs Vital signs: Vital Signs Temp 98.1 F 08/11/18 11:09 Pulse 72 08/11/18 11:16 Resp 28 H 08/11/18 11:09 BP 116/49 08/11/18 11:09 Pulse Ox 100 08/11/18 11:09 Intake & Output 08/10/18 08/11/18 08/11/18 18:59 06:59 18:59 Intake Total 2193.791 7061.537 584.85 Output Total 425 435 165 Balance 466.833 2896.537 419.85 Weight 97.9 kg 99 kg Intake: IV 616 672 280 Normal Saline Pressure 66 72 30 bag Sodium Chloride 0.45% 1, 550 600 250 000 ml @ 50 mls/hr IV . Q22H [facility] with Sodium Bicarb (1 Meq/ml) 100 ml Rx#:[id number] Intake, IV Titration 115.664 381.537 114.85 Amount Ceftaroline Fosamil 200 50 50 mg In Sodium Chloride 0.9 % 50 ml @ 100 mls/hr IVPB Q12HR [facility] Rx#:[id number] Fluconazole in NaCl,Iso- 50 50 Osm 100 mg In Saline 1 50ml.bag @ 50 mls/hr IVPB DAILY [facility] Rx#:[id number] Norepinephrine 4 mg In 211.049 Sodium Chloride 0.9% 250 ml @ 0.05 MCG/KG/MIN 16. 029 mls/hr IV .[id number] [facility] Rx#:[id number] Propofol 1,000 mg In 15.664 170.488 14.85 Empty Bag 1 bag @ Titrate IV .Q0M [facility] Rx#: [id number] Tube Feeding 418 456 190 Blood Product 0 Rc As-1 Unit 0 [id number] Other 90 150 Output: Urine 425 435 165 Hemodialysis 0 Other: Voiding Method Indwelling Catheter Indwelling Catheter Indwelling Catheter ABP, PAP, CO, CI - Last Documented Arterial Blood Pressure 115/50 - Exam GENERAL DESCRIPTION:[ Middle-aged female intubated on the vent] HEENT: [Patient is orally intubated and limited examination of the oral cavity] EYES : [No pallor or scleral icterus] RESPIRATORY SYSTEM: [Unlabored breathing decreased breath sound at the base] CARDIA VASCULAR SYSTEM: [S1-S2 regular rate and rhythm no murmur] GI: [Abdominal soft there's no tenderness no organomegaly] EXTREMITIES: [No edema feet] - Labs CBC & Chem 7: 08/11/18 04:49 08/11/18 04:49 Labs: Abnormal Lab Results - Last 24 Hours (Table) 08/10/18 08/10/18 08/10/18 Range/Units 11:53 12:41 19:17 WBC (3.8-10.6) k/uL RBC (3.80-5.40) m/uL Hgb (11.4-16.0) gm/dL Hct (34.0-46.0) % RDW (11.5-15.5) % Neutrophils # (1.3-7.7) k/uL Lymphocytes # (1.0-4.8) k/uL ABG pO2 (83-108) mmHg ABG Total CO2 (19-24) mmol/L BUN (7-17) mg/dL Creatinine (0.52-1.04) mg/dL Glucose (74-99) mg/dL POC Glucose (mg/dL) 106 H 111 H 119 H (75-99) mg/dL Calcium (8.4-10.2) mg/dL Phosphorus (2.5-4.5) mg/dL AST (14-36) U/L Alkaline Phosphatase (38-126) U/L Total Protein (6.3-8.2) g/dL Albumin (3.5-5.0) g/dL Crossmatch 08/10/18 08/11/18 08/11/18 Range/Units 23:29 04:49 04:49 WBC 18.3 H (3.8-10.6) k/uL RBC 2.25 L (3.80-5.40) m/uL Hgb 6.5 L* (11.4-16.0) gm/dL Hct 20.4 L (34.0-46.0) % RDW 16.7 H (11.5-15.5) % Neutrophils # 17.4 H (1.3-7.7) k/uL Lymphocytes # 0.4 L (1.0-4.8) k/uL ABG pO2 (83-108) mmHg ABG Total CO2 (19-24) mmol/L BUN 67 H (7-17) mg/dL Creatinine 3.39 H (0.52-1.04) mg/dL Glucose 136 H (74-99) mg/dL POC Glucose (mg/dL) 146 H (75-99) mg/dL Calcium 7.2 L (8.4-10.2) mg/dL Phosphorus 6.7 H (2.5-4.5) mg/dL AST 59 H (14-36) U/L Alkaline Phosphatase 130 H (38-126) U/L Total Protein 4.7 L (6.3-8.2) g/dL Albumin 2.1 L (3.5-5.0) g/dL Crossmatch 08/11/18 08/11/18 08/11/18 Range/Units 05:57 07:00 07:14 WBC (3.8-10.6) k/uL RBC (3.80-5.40) m/uL Hgb (11.4-16.0) gm/dL Hct (34.0-46.0) % RDW (11.5-15.5) % Neutrophils # (1.3-7.7) k/uL Lymphocytes # (1.0-4.8) k/uL ABG pO2 76 L (83-108) mmHg ABG Total CO2 25 H (19-24) mmol/L BUN (7-17) mg/dL Creatinine (0.52-1.04) mg/dL Glucose (74-99) mg/dL POC Glucose (mg/dL) 161 H (75-99) mg/dL Calcium (8.4-10.2) mg/dL Phosphorus (2.5-4.5) mg/dL AST (14-36) U/L Alkaline Phosphatase (38-126) U/L Total Protein (6.3-8.2) g/dL Albumin (3.5-5.0) g/dL Crossmatch See Detail 08/11/18 Range/Units 11:13 WBC (3.8-10.6) k/uL RBC (3.80-5.40) m/uL Hgb (11.4-16.0) gm/dL Hct (34.0-46.0) % RDW (11.5-15.5) % Neutrophils # (1.3-7.7) k/uL Lymphocytes # (1.0-4.8) k/uL ABG pO2 (83-108) mmHg ABG Total CO2 (19-24) mmol/L BUN (7-17) mg/dL Creatinine (0.52-1.04) mg/dL Glucose (74-99) mg/dL POC Glucose (mg/dL) 130 H (75-99) mg/dL Calcium (8.4-10.2) mg/dL Phosphorus (2.5-4.5) mg/dL AST (14-36) U/L Alkaline Phosphatase (38-126) U/L Total Protein (6.3-8.2) g/dL Albumin (3.5-5.0) g/dL Crossmatch Microbiology - Last 24 Hours (Table) 08/06/18 10:30 Blood Culture - Preliminary Blood No Growth after 96 hours Assessment and Plan Assessment: 1-patient with left upper lobe pneumonia with a sputum culture has been final ized as MRSA , subsequent worsening of her clinical condition and cardiac arrest and status post resuscitation and intubation as well as bronchoscopy----bronchoscopy cultures are currently growing Inga only 2-patient is on SSRI contraindicating the use of Zyvox 3-patient with significant diarrhea, antibiotic associated ,stool for C. diff is negative , diarrhea slightly decreased in frequency 4- leukocytosis more likely secondary steroids clinically no evidence of any worsening infection, white count slightly decreased to 18,000 today (1) Sepsis Current Visit: Yes Status: Acute Code(s): A41.9 - SEPSIS, UNSPECIFIED ORGANISM SNOMED Code(s): 72844434 (2) Nosocomial pneumonia Current Visit: Yes Status: Acute Code(s): J18.9 - PNEUMONIA, UNSPECIFIED ORGANISM; Y95 - NOSOCOMIAL CONDITION SNOMED Code(s): 593425189 Plan: 1- the patient continued on Teflaro 200 mg twice a day dose has been adjusted to kidney function along with Flagyl 500 every 8 hours 2-continue Diflucan for possible oropharyngeal candidiasis Family at the bedside questions concerned were answered Time with Patient: Less than 30
[2018-08-12] MEDS: PROPOFOL 1,000 MG in EMPTY BAG 1 BAG IV SCH ×2 (00:17→07:15)
[2018-08-12] MEDS: methylPREDNISolone SOD SUCCI 125 MG/2 ML VIAL IV SCH ×4 (00:17→20:54)
[2018-08-12] MEDS: IPRATROPIUM-ALBUTEROL 3 ML NEB INHALATION PRN (03:07)
[2018-08-12] MEDS: NOREPINEPHRINE 4 MG in SODIUM CHLORIDE 0.9% 250 ML IV SCH ×2 (04:14→18:28)
[2018-08-12] MEDS: fentaNYL (PF) 1,000 MCG in SODIUM CHLORIDE 0.9% 80 ML IV SCH ×2 (04:14→18:26)
[2018-08-12 05:53] LABS: Anisocytosis Slight; Basophils # (A) 0.1 k/uL (0-0.2); Basophils % (A) 0 %; Eosinophils % (A) 0 %; HCT 22.7 % (34.0-46.0); HGB 7.4 gm/dL (11.4-16.0); Hypochromasia Slight; Lymphocytes # (A) 0.4 k/uL (1.0-4.8); Lymphocytes % (A) 2 %; MCH 28.6 pg (25.0-35.0); MCHC 32.8 g/dL (31.0-37.0); MCV 87.4 fL (80.0-100.0); Mean Platelet Volume 8.9; Monocytes # (A) 0.5 k/uL (0-1.0); Monocytes % (A) 2 %; Neutrophils # (A) 21.7 k/uL (1.3-7.7); Neutrophils % (A) 95 %; Platelet Count 144 k/uL (150-450); Poikilocytosis Slight; RDW 17.5 % (11.5-15.5); WBC 22.9 k/uL (3.8-10.6)
[2018-08-12 06:03] LABS: Albumin 2.2 g/dL (3.5-5.0); Calcium 7.7 mg/dL (8.4-10.2); Magnesium 1.9 mg/dL (1.6-2.3); Phosphorus 6.3 mg/dL (2.5-4.5); Potassium 4.1 mmol/L (3.5-5.1); Total Bilirubin 0.8 mg/dL (0.2-1.3); Total Protein 4.9 g/dL (6.3-8.2)
[2018-08-12 06:29] LABS: Glucose,Whole Blood 129 mg/dL (75-99)
--- NOTE | 2018-08-12 06:48 | P.PN ---
Subjective Progress Note Date: 08/12/18 Principal diagnosis: Acute hypoxic respiratory failure This is a pleasant 63-year-old female patient who I follow in the office as an outpatient with known history of coronary artery disease and prior coronary artery stenting of the RCA, hypertension, dyslipidemia, as well as multiple psychiatric disorder, initially was admitted to the hospital with what it seems to be pneumonia and subsequently she was coded was PDA and was transferred to the intensive care unit. Currently the patient is intubated and she is on ventilator and the history was taken from her daughter as well as from the nurse taking care of the patient. I just saw the patient in the office last week and she was doing quite well from the cardiovascular standpoint overview. About 4 days ago, the patient was found to be weak as well as slightly confused by her daughter. She was experiencing some cough without any sputum and without any fever or chills. Because of that her daughter brought her to the hospital for further evaluation. Please note that the patient's has been was getting t reated for MRSA in the lower extremities and he was going to do one to clinic for that. The patient initially was admitted to a non-telemetry floor for pneumonia and she was on antibiotic. Yesterday, she was agitated and she was given Ativan but subsequently she developed change in mental status and subsequently she did have PDA. After that the patient was intubated and transferred to the intensive care unit. The patient currently still intubated. She is hemodynamically unstable and requiring quite high dose of Levophed. She is in normal sinus mechanism. The hemoglobin is 7.5, the creatinine is 2.7, and I did review the chest x-ray from the morning which revealed bilateral infiltrate and questionable bilateral pneumonia. There is also a possibility that the patient was aspirated during the cold yesterday. The BNP is 45,000. The echocardiogram revealed moderate to severe tricuspid regurgitation, moderate to severe pulmonary hypertension, and preserved left ventricle systolic function On follow-up with the patient today, August 122018, she continues to be intubated on mechanical ventilation. She is off sedation and she started to wake up. Definitely her mentation is better after the improvement in the creatinine after that to dialysis she underwent. The hemoglobin continues to be stable and above 7. She continues to be on dual antiplatelet therapy along with a statin. She continues to be on Lasix IV as well. Objective - Vital Signs Vital signs: Vital Signs Temp 98.8 F 08/12/18 04:00 Pulse 72 08/12/18 06:00 Resp 28 H 08/12/18 06:00 BP 114/79 08/12/18 06:00 Pulse Ox 97 08/12/18 06:00 Intake & Output 08/11/18 08/11/18 08/12/18 06:59 18:59 06:59 Intake Total 0650.126 9265.705 821 Output Total 435 820 250 Balance 1224.537 700.705 571 Weight 99 kg 99 kg Intake: IV 672 728 616 Normal Saline Pressure 72 78 66 bag Sodium Chloride 0.45% 1, 600 650 550 000 ml @ 50 mls/hr IV . Q22H [facility] with Sodium Bicarb (1 Meq/ml) 100 ml Rx#:[id number] Intake, IV Titration 381.537 178.705 100 Amount Ceftaroline Fosamil 200 50 mg In Sodium Chloride 0.9 % 50 ml @ 100 mls/hr IVPB Q12HR [facility] Rx#:[id number] Fluconazole in NaCl,Iso- 50 Osm 100 mg In Saline 1 50ml.bag @ 50 mls/hr IVPB DAILY [facility] Rx#:[id number] Norepinephrine 4 mg In 211.049 Sodium Chloride 0.9% 250 ml @ 0.05 MCG/KG/MIN 16. 029 mls/hr IV .[id number] [facility] Rx#:[id number] Propofol 1,000 mg In 170.488 78.705 100 Empty Bag 1 bag @ Titrate IV .Q0M [facility] Rx#: [id number] Tube Feeding 456 304 105 Blood Product 310 Rc As-1 Unit 310 [id number] Other 150 Output: Urine 435 320 250 Hemodialysis 0 500 Other: Voiding Method Indwelling Catheter Indwelling Catheter Indwelling Catheter ABP, PAP, CO, CI - Last Documented Arterial Blood Pressure 117/57 - Constitutional General appearance: Present: no acute distress - Respiratory Respiratory: bilateral: CTA - Cardiovascular Rhythm: regular Heart sounds: normal: S1, S2 Abnormal Heart Sounds: Present: systolic murmur - Labs CBC & Chem 7: 08/12/18 05:45 08/12/18 05:45 Labs: Abnormal Lab Results - Last 24 Hours (Table) 08/11/18 08/11/18 08/11/18 Range/Units 07:00 07:14 11:13 WBC (3.8-10.6) k/uL RBC (3.80-5.40) m/uL Hgb (11.4-16.0) gm/dL Hct (34.0-46.0) % RDW (11.5-15.5) % Plt Count (150-450) k/uL Neutrophils # (1.3-7.7) k/uL Lymphocytes # (1.0-4.8) k/uL ABG pO2 76 L (83-108) mmHg ABG Total CO2 25 H (19-24) mmol/L BUN (7-17) mg/dL Creatinine (0.52-1.04) mg/dL Glucose (74-99) mg/dL POC Glucose (mg/dL) 130 H (75-99) mg/dL Calcium (8.4-10.2) mg/dL Phosphorus (2.5-4.5) mg/dL AST (14-36) U/L Alkaline Phosphatase (38-126) U/L Total Protein (6.3-8.2) g/dL Albumin (3.5-5.0) g/dL Crossmatch See Detail 08/11/18 08/11/18 08/12/18 Range/Units 17:01 20:50 05:45 WBC 22.9 H (3.8-10.6) k/uL RBC 2.60 L (3.80-5.40) m/uL Hgb 7.4 L (11.4-16.0) gm/dL Hct 22.7 L (34.0-46.0) % RDW 17.5 H (11.5-15.5) % Plt Count 144 L (150-450) k/uL Neutrophils # 21.7 H (1.3-7.7) k/uL Lymphocytes # 0.4 L (1.0-4.8) k/uL ABG pO2 (83-108) mmHg ABG Total CO2 (19-24) mmol/L BUN (7-17) mg/dL Creatinine (0.52-1.04) mg/dL Glucose (74-99) mg/dL POC Glucose (mg/dL) 123 H 126 H (75-99) mg/dL Calcium (8.4-10.2) mg/dL Phosphorus (2.5-4.5) mg/dL AST (14-36) U/L Alkaline Phosphatase (38-126) U/L Total Protein (6.3-8.2) g/dL Albumin (3.5-5.0) g/dL Crossmatch 08/12/18 08/12/18 Range/Units 05:45 06:02 WBC (3.8-10.6) k/uL RBC (3.80-5.40) m/uL Hgb (11.4-16.0) gm/dL Hct (34.0-46.0) % RDW (11.5-15.5) % Plt Count (150-450) k/uL Neutrophils # (1.3-7.7) k/uL Lymphocytes # (1.0-4.8) k/uL ABG pO2 (83-108) mmHg ABG Total CO2 (19-24) mmol/L BUN 55 H (7-17) mg/dL Creatinine 2.74 H (0.52-1.04) mg/dL Glucose 113 H (74-99) mg/dL POC Glucose (mg/dL) 129 H (75-99) mg/dL Calcium 7.7 L (8.4-10.2) mg/dL Phosphorus 6.3 H (2.5-4.5) mg/dL AST 49 H (14-36) U/L Alkaline Phosphatase 129 H (38-126) U/L Total Protein 4.9 L (6.3-8.2) g/dL Albumin 2.2 L (3.5-5.0) g/dL Crossmatch Microbiology - Last 24 Hours (Table) 08/06/18 10:30 Blood Culture - Preliminary Blood No Growth after 120 hours Assessment and Plan Assessment: Assessment #1 acute hypoxic respiratory failure #2 bilateral pneumonia, with MRSA #3 acute renal failure #4 anemia #5 known coronary artery disease and prior coronary artery stenting #6 multiple comorbid conditions. Plan #1 continue the current medical regimen #2 continue dual antiplatelet therapy #3 continue monitor the kidney function and electrolytes #4 continue dual antiplatelet therapy along with a statin #5 hopefully extubate the patient soon.
--- NOTE | 2018-08-12 07:11 | XR ---
EXAMINATION TYPE: XR chest 1V portable DATE OF EXAM: 08/12/2018 COMPARISON: 08/11/2018 HISTORY: SOB, Follow Up FINDINGS: Indwelling tubes and catheters are unchanged. Stable scattered reticulonodular infiltrates throughout both lung snachez and small effusions. Stable appearance of the cardio-mediastinal structures at this time. Pleural effusion unchanged. IMPRESSION: 1. Stable portable chest. Clinical correlation and follow up until resolution is recommended.
[2018-08-12 07:12] LABS: Glucose,Whole Blood 122 mg/dL (75-99)
[2018-08-12] MEDS: INSULIN ASPART (NovoLOG) 100 UNIT/ML VIAL SQ SCH ×3 (07:29→18:28)
[2018-08-12] MEDS: IPRATROPIUM-ALBUTEROL 3 ML NEB INHALATION SCH ×4 (07:44→21:47)
[2018-08-12 07:48] LABS: ABG Base Excess 1.3 mmol/L; ABG HCO3 25 mmol/L (21-25); ABG Oxygen Saturation 97.5 % (94-97); ABG PCO2 35 mmHg (35-45); ABG PH 7.47 (7.35-7.45); ABG PO2 91 mmHg (83-108); ABG TCO2 26 mmol/L (19-24)
[2018-08-12] MEDS: SERTRALINE 100 MG TAB PO SCH (08:03)
[2018-08-12] MEDS: metroNIDAZOLE 500 MG TAB OG-TUBE SCH ×3 (08:03→20:54)
[2018-08-12] MEDS: CHLORHEXIDINE GLUCONATE 15 ML CUP MUCOUS MEM SCH ×2 (08:03→20:54)
[2018-08-12] MEDS: FUROSEMIDE 10 MG/ML 10 ML VIAL IV SCH ×2 (08:03→20:55)
[2018-08-12] MEDS: LEVOTHYROXINE IVP 100 MCG/5 ML VIAL IV SCH (08:04)
[2018-08-12] MEDS: CALCIUM ACETATE 667 MG CAP PO SCH ×3 (08:04→18:28)
[2018-08-12] MEDS: FOLIC ACID 1 MG TAB PO SCH (08:04)
[2018-08-12] MEDS: ATORVASTATIN 20 MG TAB PO SCH (08:04)
[2018-08-12] MEDS: CLOPIDOGREL 75 MG TAB PO SCH (08:04)
[2018-08-12] MEDS: PANTOPRAZOLE 40 MG/10 ML VIAL IVP SCH ×2 (08:04→20:55)
[2018-08-12] MEDS: FLUCONAZOLE IN NACL,ISO-OSM 100 MG in SALINE 1 50ML.BAG IVPB SCH (08:38)
[2018-08-12] MEDS: CEFTAROLINE FOSAMIL IVPB SCH ×2 (08:39→20:57)
[2018-08-12] MEDS: SODIUM CHLORIDE 0.9% IVPB SCH ×2 (08:39→20:57)
[2018-08-12] MEDS: ASPIRIN 81 MG PO SCH (08:39)
--- NOTE | 2018-08-12 09:30 | P.PN ---
Subjective Progress Note Date: 08/12/18 Since yesterday, patient is showing significant clinical improvement. Patient has started to follow commands. She is making eye contact, turning her head to the side, wiggling her toes, trying to squeeze hands on commands. Patient has received hemodialysis yesterday also. Patient continues to be intubated. Patient had an EEG performed, which revealed background slowing of moderate degree, suggestive of toxic metabolic encephalopathy or related to diffuse structural brain abnormality. No epileptiform activity was seen. Computed tomography scan of head from yesterday showed no acute process. Small vessel disease. Some lacunar strokes in the basal ganglia bilaterally. Patient had undergone hemodialysis. Objective - Vital Signs Vital signs: Vital Signs Temp 97 F L 08/12/18 08:00 Pulse 80 08/12/18 09:00 Resp 28 H 08/12/18 09:00 BP 114/79 08/12/18 06:00 Pulse Ox 95 08/12/18 09:00 Intake & Output 08/11/18 08/12/18 08/12/18 18:59 06:59 18:59 Intake Total 1520.705 921 318.743 Output Total 820 250 80 Balance 700.705 671 238.743 Weight 99 kg 99.6 kg Intake: IV 728 616 168 Normal Saline Pressure 78 66 18 bag Sodium Chloride 0.45% 1, 650 550 150 000 ml @ 50 mls/hr IV . Q22H [facility] with Sodium Bicarb (1 Meq/ml) 100 ml Rx#:[id number] Intake, IV Titration 178.705 200 150.743 Amount Ceftaroline Fosamil 200 50 100 mg In Sodium Chloride 0.9 % 50 ml @ 100 mls/hr IVPB Q12HR [facility] Rx#:[id number] Fluconazole in NaCl,Iso- 50 50 Osm 100 mg In Saline 1 50ml.bag @ 50 mls/hr IVPB DAILY [facility] Rx#:[id number] Propofol 1,000 mg In 78.705 200 0.743 Empty Bag 1 bag @ Titrate IV .Q0M [facility] Rx#: [id number] Tube Feeding 304 105 Blood Product 310 Rc As-1 Unit 310 [id number] Output: Urine 320 250 80 Hemodialysis 500 Other: Voiding Method Indwelling Catheter Indwelling Catheter ABP, PAP, CO, CI - Last Documented Arterial Blood Pressure 115/54 - Exam Patient is on mechanical ventilation,, more alert and awake, making eye contact, following commands, turning head to the side, observing people around. Able to squeeze hands mildly, and wiggle her toes slightly. Much better than yesterday.. Reflexes are symmetric, 1+ in the biceps, trace at the brachioradialis. 2+ to 3 and bilateral knees. - Labs CBC & Chem 7: 08/12/18 05:45 08/12/18 05:45 Labs: Abnormal Lab Results - Last 24 Hours (Table) 08/11/18 08/11/18 08/11/18 Range/Units 07:00 11:13 17:01 WBC (3.8-10.6) k/uL RBC (3.80-5.40) m/uL Hgb (11.4-16.0) gm/dL Hct (34.0-46.0) % RDW (11.5-15.5) % Plt Count (150-450) k/uL Neutrophils # (1.3-7.7) k/uL Lymphocytes # (1.0-4.8) k/uL ABG pH (7.35-7.45) ABG Total CO2 (19-24) mmol/L ABG O2 Saturation (94-97) % BUN (7-17) mg/dL Creatinine (0.52-1.04) mg/dL Glucose (74-99) mg/dL POC Glucose (mg/dL) 130 H 123 H (75-99) mg/dL Calcium (8.4-10.2) mg/dL Phosphorus (2.5-4.5) mg/dL AST (14-36) U/L Alkaline Phosphatase (38-126) U/L Total Protein (6.3-8.2) g/dL Albumin (3.5-5.0) g/dL Crossmatch See Detail 08/11/18 08/12/18 08/12/18 Range/Units 20:50 05:45 05:45 WBC 22.9 H (3.8-10.6) k/uL RBC 2.60 L (3.80-5.40) m/uL Hgb 7.4 L (11.4-16.0) gm/dL Hct 22.7 L (34.0-46.0) % RDW 17.5 H (11.5-15.5) % Plt Count 144 L (150-450) k/uL Neutrophils # 21.7 H (1.3-7.7) k/uL Lymphocytes # 0.4 L (1.0-4.8) k/uL ABG pH (7.35-7.45) ABG Total CO2 (19-24) mmol/L ABG O2 Saturation (94-97) % BUN 55 H (7-17) mg/dL Creatinine 2.74 H (0.52-1.04) mg/dL Glucose 113 H (74-99) mg/dL POC Glucose (mg/dL) 126 H (75-99) mg/dL Calcium 7.7 L (8.4-10.2) mg/dL Phosphorus 6.3 H (2.5-4.5) mg/dL AST 49 H (14-36) U/L Alkaline Phosphatase 129 H (38-126) U/L Total Protein 4.9 L (6.3-8.2) g/dL Albumin 2.2 L (3.5-5.0) g/dL Crossmatch 08/12/18 08/12/18 08/12/18 Range/Units 06:02 07:10 07:45 WBC (3.8-10.6) k/uL RBC (3.80-5.40) m/uL Hgb (11.4-16.0) gm/dL Hct (34.0-46.0) % RDW (11.5-15.5) % Plt Count (150-450) k/uL Neutrophils # (1.3-7.7) k/uL Lymphocytes # (1.0-4.8) k/uL ABG pH 7.47 H (7.35-7.45) ABG Total CO2 26 H (19-24) mmol/L ABG O2 Saturation 97.5 H (94-97) % BUN (7-17) mg/dL Creatinine (0.52-1.04) mg/dL Glucose (74-99) mg/dL POC Glucose (mg/dL) 129 H 122 H (75-99) mg/dL Calcium (8.4-10.2) mg/dL Phosphorus (2.5-4.5) mg/dL AST (14-36) U/L Alkaline Phosphatase (38-126) U/L Total Protein (6.3-8.2) g/dL Albumin (3.5-5.0) g/dL Crossmatch Microbiology - Last 24 Hours (Table) 08/06/18 10:30 Blood Culture - Preliminary Blood No Growth after 120 hours Assessment and Plan Assessment: * Altered mental status, likely related to toxic metabolic encephalopathy. Patient's mentation much improved today. Patient following commands. * Recent history of cardiac arrest on 08/05/2018. * Generalized weakness of arms and legs, probably related to encephalopathy. Patient started to move her hands and feet slightly. Need to continue to watch. * Pneumonia, with recent history of septic shock. * Ventilator-dependent respiratory failure. * Acute renal failure, worsening, now getting hemodialysis * Anemia with hemoglobin 7.1 * Recent history of stroke TIA. * Coronary artery disease with history of cardiac stenting. * X tobacco use. * Possible underlying mild cognitive impairment Plan: Patient's mental status has remarkably improved. Hopefully she will continue to improve on a daily basis. Continue treatment for various toxic metabolic conditions. Patient on hemodialysis, which perhaps is helping with mentation. Continue dual antiplatelet medication including aspirin 81 mg and Plavix 75 mg EEG showed moderate encephalopathy. Hemoglobin A1c 5.3. Avoid opiates or other narcotics/sedatives. Treatment of other medical conditions as per internal medicine/critical care. We will follow clinically. Discussed with patient's in detail.
[2018-08-12 11:34] LABS: Glucose,Whole Blood 119 mg/dL (75-99)
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
--- NOTE | 2018-08-12 13:17 | PN ---
PROGRESS NOTE Patient is seen for followup for acute kidney injury. She remains on the vent. However, this morning, patient is more awake. She is following commands. She is scheduled for trach and PEG today. Urine output remains borderline at about 20 an hour. FiO2 is at 45%. PHYSICAL EXAMINATION: On examination today blood pressure is 112/53. Patient is afebrile. Heart rate about 90 per minute. EXAMINATION OF THE HEART: S1, S2. EXAMINATION OF THE LUNGS: Bilateral breath sounds are heard. Abdomen is soft, nontender. Examination of the lower extremities shows edema 2+ bilaterally. 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 LABS: Labs show sodium 137, potassium 4.1, BUN 55, serum creatinine 2.74, phosphorus 6.3, calcium 7.7. Albumin 2.2. Hemoglobin was 7.4 g/dL. ASSESSMENT: 1. Acute kidney injury, acute tubular necrosis, currently nonoliguric. However, urine output remains borderline. The patient has been maintained on dialysis. Today will be her third treatment. We will proceed with the dialysis today and we will try to increase UF to about 1 to 2 L as tolerated. 2. Volume overload. Continue with IV push Lasix and will increase the ultrafiltration with hemodialysis as well. 3. Acute hypoxic respiratory failure secondary to underlying pneumonia. 4. Pneumonia with sputum culture growing Inga and MRSA, maintained on antibiotics. 5. Status post cardiac arrest. 6. Metabolic acidosis, now improved. 7. Hyperphosphatemia associated with renal failure, maintained on PhosLo. PLAN: Repeat dialysis today. Increase UF as tolerated. Continue with IV Lasix and repeat labs in a.m. We will hold off on dialysis over the weekend. MMODL / IJN: [id number] /
--- NOTE | 2018-08-12 13:32 | P.PN ---
Subjective Progress Note Date: 08/12/18 Principal diagnosis: Hypoxic respiratory failure Patient is a 63-year-old lady with history of COPD, TIA, DVT, TBI presented for leukocytosis upper lobe pneumonia treated with vancomycin and Zosyn. Patient had follow-up x-rays that did not show improvement she was also being treated for CHF when she had worsening respiratory failure for PE A transferred to the ICU for further treatment. Patient had antibiotics adjusted to [facility] Ceftaroline and Clindamycin IV. Patient had diarrhea so clindamycin was discontinued sputum cultures were positive for MRSA and Inga serum course was further complicated by renal failure and she is currently status post runs of dialysis. 08/12/2017 patient mental status appears to be improving she is tracking or responding to verbal stimuli she is currently still intubated Objective - Vital Signs Vital signs: Vital Signs Temp 97 F L 08/12/18 08:00 Pulse 87 08/12/18 12:07 Resp 27 H 08/12/18 12:00 BP 114/79 08/12/18 06:00 Pulse Ox 93 L 08/12/18 12:00 Intake & Output 08/11/18 08/12/18 08/12/18 18:59 06:59 18:59 Intake Total 1520.705 921 370.743 Output Total 820 250 180 Balance 700.705 671 190.743 Weight 99 kg 99.6 kg Intake: IV 728 616 220 KVO 40 Normal Saline Pressure 78 66 30 bag Sodium Chloride 0.45% 1, 650 550 150 000 ml @ 50 mls/hr IV . Q22H [facility] with Sodium Bicarb (1 Meq/ml) 100 ml Rx#:[id number] Intake, IV Titration 178.705 200 150.743 Amount Ceftaroline Fosamil 200 50 100 mg In Sodium Chloride 0.9 % 50 ml @ 100 mls/hr IVPB Q12HR [facility] Rx#:[id number] Fluconazole in NaCl,Iso- 50 50 Osm 100 mg In Saline 1 50ml.bag @ 50 mls/hr IVPB DAILY [facility] Rx#:[id number] Propofol 1,000 mg In 78.705 200 0.743 Empty Bag 1 bag @ Titrate IV .Q0M [facility] Rx#: [id number] Tube Feeding 304 105 Blood Product 310 Rc As-1 Unit 310 [id number] Output: Urine 320 250 180 Hemodialysis 500 Other: Voiding Method Indwelling Catheter Indwelling Catheter Indwelling Catheter # Voids 2 ABP, PAP, CO, CI - Last Documented Arterial Blood Pressure 127/62 - Constitutional General appearance: Present: obese - EENT Eyes: Present: PERRLA Ears: bilateral: normal - Respiratory Respiratory: bilateral: diminished, rhonchi - Cardiovascular Heart sounds: normal: S1, S2 - Gastrointestinal General gastrointestinal: Present: decreased bowel sounds, soft - Neurologic Neurologic: Present: focal deficits (taking with eyes, orients to voics, minimal commands squeezes hands bilaterally) - Musculoskeletal Musculoskeletal: Present: generalized weakness - Psychiatric Psychiatric Comment(s): Orients to voice, limited insight - Labs CBC & Chem 7: 08/12/18 05:45 08/12/18 05:45 Labs: Abnormal Lab Results - Last 24 Hours (Table) 08/11/18 08/11/18 08/11/18 Range/Units 07:00 17:01 20:50 WBC (3.8-10.6) k/uL RBC (3.80-5.40) m/uL Hgb (11.4-16.0) gm/dL Hct (34.0-46.0) % RDW (11.5-15.5) % Plt Count (150-450) k/uL Neutrophils # (1.3-7.7) k/uL Lymphocytes # (1.0-4.8) k/uL ABG pH (7.35-7.45) ABG Total CO2 (19-24) mmol/L ABG O2 Saturation (94-97) % BUN (7-17) mg/dL Creatinine (0.52-1.04) mg/dL Glucose (74-99) mg/dL POC Glucose (mg/dL) 123 H 126 H (75-99) mg/dL Calcium (8.4-10.2) mg/dL Phosphorus (2.5-4.5) mg/dL AST (14-36) U/L Alkaline Phosphatase (38-126) U/L Total Protein (6.3-8.2) g/dL Albumin (3.5-5.0) g/dL Crossmatch See Detail 08/12/18 08/12/18 08/12/18 Range/Units 05:45 05:45 06:02 WBC 22.9 H (3.8-10.6) k/uL RBC 2.60 L (3.80-5.40) m/uL Hgb 7.4 L (11.4-16.0) gm/dL Hct 22.7 L (34.0-46.0) % RDW 17.5 H (11.5-15.5) % Plt Count 144 L (150-450) k/uL Neutrophils # 21.7 H (1.3-7.7) k/uL Lymphocytes # 0.4 L (1.0-4.8) k/uL ABG pH (7.35-7.45) ABG Total CO2 (19-24) mmol/L ABG O2 Saturation (94-97) % BUN 55 H (7-17) mg/dL Creatinine 2.74 H (0.52-1.04) mg/dL Glucose 113 H (74-99) mg/dL POC Glucose (mg/dL) 129 H (75-99) mg/dL Calcium 7.7 L (8.4-10.2) mg/dL Phosphorus 6.3 H (2.5-4.5) mg/dL AST 49 H (14-36) U/L Alkaline Phosphatase 129 H (38-126) U/L Total Protein 4.9 L (6.3-8.2) g/dL Albumin 2.2 L (3.5-5.0) g/dL Crossmatch 08/12/18 08/12/18 08/12/18 Range/Units 07:10 07:45 11:20 WBC (3.8-10.6) k/uL RBC (3.80-5.40) m/uL Hgb (11.4-16.0) gm/dL Hct (34.0-46.0) % RDW (11.5-15.5) % Plt Count (150-450) k/uL Neutrophils # (1.3-7.7) k/uL Lymphocytes # (1.0-4.8) k/uL ABG pH 7.47 H (7.35-7.45) ABG Total CO2 26 H (19-24) mmol/L ABG O2 Saturation 97.5 H (94-97) % BUN (7-17) mg/dL Creatinine (0.52-1.04) mg/dL Glucose (74-99) mg/dL POC Glucose (mg/dL) 122 H 119 H (75-99) mg/dL Calcium (8.4-10.2) mg/dL Phosphorus (2.5-4.5) mg/dL AST (14-36) U/L Alkaline Phosphatase (38-126) U/L Total Protein (6.3-8.2) g/dL Albumin (3.5-5.0) g/dL Crossmatch Microbiology - Last 24 Hours (Table) 08/06/18 10:30 Blood Culture - Final Blood No Growth after 144 hours Assessment and Plan (1) Nosocomial pneumonia Narrative/Plan: continue treatment for MRSA pneumonia with Ceftin limb on fluconazole per ID recommendations. Continue to monitor clinically on follow-up chest x-rays. Current Visit: Yes Status: Acute Code(s): J18.9 - PNEUMONIA, UNSPECIFIED ORGANISM; Y95 - NOSOCOMIAL CONDITION SNOMED Code(s): 083864859 (2) Respiratory failure Narrative/Plan: Acute hypoxic respiratory failure secondary to nosocomial pneumonia and volume overload. Patient is status post runs of dialysis on plan is for removal of about 2 L of fluid today. Continued optimize respiratory status is possible trach and PEG today Current Visit: Yes Status: Acute Code(s): J96.90 - RESPIRATORY FAILURE, UNSP, UNSP W HYPOXIA OR HYPERCAPNIA SNOMED Code(s): 272135855 (3) Acute kidney injury Narrative/Plan: Patient is status post 2 dialysis runs yesterday 500 mL of fluid removed plan is for today to remove 2 L of fluid continue to optimize volume status patient is receiving Lasix IV Current Visit: No Status: Acute Code(s): N17.9 - ACUTE KIDNEY FAILURE, UNSPECIFIED SNOMED Code(s): 76803049 (4) Encephalopathy Narrative/Plan: Toxic metabolic encephalopathy note is an EEG, patient is responding to verbal stimuli cc following some minimal commands continue to optimize reorient as needed discussed with family at bedside Current Visit: No Status: Acute Code(s): G93.40 - ENCEPHALOPATHY, UNSPECIFIED SNOMED Code(s): 95856984 (5) Closed TBI (traumatic brain injury) Narrative/Plan: We discussed was intubated at side, baseline patient was impulsive with short- term memory loss and they're hopeful that patient can return to this functional status explained that this would be a long course patient was high risk for falls at baseline because of generalized weakness impulsive behavior Current Visit: Yes Status: Chronic Code(s): S06.9X9A - UNSP INTRACRANIAL INJURY W LOC OF UNSP DURATION, INIT SNOMED Code(s): 7989346 Plan: Plan is for likely trach and PEG today optimizing medically for possible LTAC transfer when medically stable. Family's goals of care is for patient to return to firmer functional status, they state patient did not want long-term intub ation however they feel that the current plan is in accordance with her wishes given her improved treatment of her mental status
[2018-08-12] MEDS ORDERED: MIDAZOLAM 2 MG/2 ML VIAL ONE (15:50)
[2018-08-12] MEDS ORDERED: fentaNYL (PF) 50 MCG/ML 2 ML AMP ONE (15:50)
[2018-08-12] MEDS ORDERED: ROCURONIUM BROMIDE 10 MG/ML 10 ML VIAL IV ONE (15:50)
[2018-08-12] MEDS ORDERED: IV FLUID CONTINUATION 1,000 ML IV ONE (16:30)
[2018-08-12] MEDS: AMITRIPTYLINE HCL 50 MG TAB PO SCH (20:54)
[2018-08-12] MEDS: DOCUSATE 100 MG CAP PO SCH (20:54)
[2018-08-12] MEDS: MONTELUKAST 10 MG TAB PO SCH (20:54)
[2018-08-12] MEDS: QUEtiapine 200 MG TAB PO SCH (20:54)
[2018-08-13] MEDS: INSULIN ASPART (NovoLOG) 100 UNIT/ML VIAL SQ SCH ×4 (00:19→17:35)
[2018-08-13 00:21] LABS: Glucose,Whole Blood 111 mg/dL (75-99)
[2018-08-13] MEDS: methylPREDNISolone SOD SUCCI 125 MG/2 ML VIAL IV SCH ×4 (00:53→17:04)
[2018-08-13] MEDS: fentaNYL (PF) 1,000 MCG in SODIUM CHLORIDE 0.9% 80 ML IV SCH ×3 (00:57→20:49)
[2018-08-13 05:23] LABS: Glucose,Whole Blood 119 mg/dL (75-99)
[2018-08-13 05:37] LABS: Calcium 7.6 mg/dL (8.4-10.2); Potassium 3.7 mmol/L (3.5-5.1)
[2018-08-13 05:38] LABS: Anisocytosis Slight; HCT 21.6 % (34.0-46.0); Hypochromasia Slight; MCH 28.7 pg (25.0-35.0); MCHC 32.4 g/dL (31.0-37.0); MCV 88.5 fL (80.0-100.0); Mean Platelet Volume 8.7; Platelet Count 144 k/uL (150-450); RBC 2.44 m/uL (3.80-5.40); RDW 17.3 % (11.5-15.5); WBC 20.5 k/uL (3.8-10.6)
--- NOTE | 2018-08-13 07:20 | P.PN ---
Subjective Progress Note Date: 08/13/18 Principal diagnosis: Acute hypoxic respiratory failure This is a pleasant 63-year-old female patient who I follow in the office as an outpatient with known history of coronary artery disease and prior coronary artery stenting of the RCA, hypertension, dyslipidemia, as well as multiple psychiatric disorder, initially was admitted to the hospital with what it seems to be pneumonia and subsequently she was coded was PDA and was transferred to the intensive care unit. Currently the patient is intubated and she is on ventilator and the history was taken from her daughter as well as from the nurse taking care of the patient. I just saw the patient in the office last week and she was doing quite well from the cardiovascular standpoint overview. About 4 days ago, the patient was found to be weak as well as slightly confused by her daughter. She was experiencing some cough without any sputum and without any fever or chills. Because of that her daughter brought her to the hospital for further evaluation. Please note that the patient's has been was getting t reated for MRSA in the lower extremities and he was going to do one to clinic for that. The patient initially was admitted to a non-telemetry floor for pneumonia and she was on antibiotic. Yesterday, she was agitated and she was given Ativan but subsequently she developed change in mental status and subsequently she did have PDA. After that the patient was intubated and transferred to the intensive care unit. The patient currently still intubated. She is hemodynamically unstable and requiring quite high dose of Levophed. She is in normal sinus mechanism. The hemoglobin is 7.5, the creatinine is 2.7, and I did review the chest x-ray from the morning which revealed bilateral infiltrate and questionable bilateral pneumonia. There is also a possibility that the patient was aspirated during the cold yesterday. The BNP is 45,000. The echocardiogram revealed moderate to severe tricuspid regurgitation, moderate to severe pulmonary hypertension, and preserved left ventricle systolic function On follow-up with the patient today, August [id number], the patient continues to be intubated on ventilator. Her mentation has improved significantly after the kidney function improved and after dialysis. Hemodynamically she continues to be stable. The creatinine has been trending down after dialysis patient continues to be on dual antiplatelet therapy along with a statin patient continues to be on Lasix IV as well as. Objective - Vital Signs Vital signs: Vital Signs Temp 98.1 F 08/13/18 00:00 Pulse 82 08/13/18 07:00 Resp 25 H 08/13/18 07:00 BP 114/71 08/13/18 05:00 Pulse Ox 93 L 08/13/18 07:00 Intake & Output 08/12/18 08/13/18 08/13/18 18:59 06:59 18:59 Intake Total 834.743 242 16 Output Total 445 2333 25 Balance 389.743 -2091 -9 Weight 99.6 kg 98.7 kg Intake: IV 684 242 16 Ceftaroline Fosamil 200 50 mg In Sodium Chloride 0.9 % 50 ml @ 100 mls/hr IVPB Q12HR [facility] Rx#:[id number] KVO 80 120 10 Normal Saline Pressure 54 72 6 bag Sodium Chloride 0.45% 1, 150 000 ml @ 50 mls/hr IV . Q22H [facility] with Sodium Bicarb (1 Meq/ml) 100 ml Rx#:[id number] Intake, IV Titration 150.743 Amount Ceftaroline Fosamil 200 100 mg In Sodium Chloride 0.9 % 50 ml @ 100 mls/hr IVPB Q12HR [facility] Rx#:[id number] Fluconazole in NaCl,Iso- 50 Osm 100 mg In Saline 1 50ml.bag @ 50 mls/hr IVPB DAILY [facility] Rx#:[id number] Propofol 1,000 mg In 0.743 Empty Bag 1 bag @ Titrate IV .Q0M [facility] Rx#: [id number] Output: Urine 425 333 25 Hemodialysis 2000 Estimated Blood Loss 20 Other: Voiding Method Indwelling Catheter Indwelling Catheter # Voids 2 ABP, PAP, CO, CI - Last Documented Arterial Blood Pressure 114/55 - Constitutional General appearance: Present: no acute distress - Respiratory Respiratory: bilateral: diminished - Cardiovascular Rhythm: regular Heart sounds: normal: S1, S2 - Labs CBC & Chem 7: 08/13/18 05:20 08/13/18 05:20 Labs: Abnormal Lab Results - Last 24 Hours (Table) 08/12/18 08/12/18 08/13/18 Range/Units 07:45 11:20 00:18 WBC (3.8-10.6) k/uL RBC (3.80-5.40) m/uL Hgb (11.4-16.0) gm/dL Hct (34.0-46.0) % RDW (11.5-15.5) % Plt Count (150-450) k/uL ABG pH 7.47 H (7.35-7.45) ABG Total CO2 26 H (19-24) mmol/L ABG O2 Saturation 97.5 H (94-97) % BUN (7-17) mg/dL Creatinine (0.52-1.04) mg/dL Glucose (74-99) mg/dL POC Glucose (mg/dL) 119 H 111 H (75-99) mg/dL Calcium (8.4-10.2) mg/dL 08/13/18 08/13/18 08/13/18 Range/Units 05:18 05:20 05:20 WBC 20.5 H (3.8-10.6) k/uL RBC 2.44 L (3.80-5.40) m/uL Hgb 7.0 L (11.4-16.0) gm/dL Hct 21.6 L (34.0-46.0) % RDW 17.3 H (11.5-15.5) % Plt Count 144 L (150-450) k/uL ABG pH (7.35-7.45) ABG Total CO2 (19-24) mmol/L ABG O2 Saturation (94-97) % BUN 39 H (7-17) mg/dL Creatinine 1.99 H (0.52-1.04) mg/dL Glucose 107 H (74-99) mg/dL POC Glucose (mg/dL) 119 H (75-99) mg/dL Calcium 7.6 L (8.4-10.2) mg/dL Microbiology - Last 24 Hours (Table) 08/06/18 10:30 Blood Culture - Final Blood No Growth after 144 hours Assessment and Plan Assessment: Assessment #1 acute hypoxic respiratory failure #2 bilateral pneumonia, with MRSA #3 acute renal failure #4 anemia #5 known coronary artery disease and prior coronary artery stenting #6 multiple comorbid conditions. Plan #1 continue the current medical regimen #2 continue dual antiplatelet therapy #3 continue monitor the kidney function and electrolytes #4 continue dual antiplatelet therapy along with a statin #5 hopefully extubate the patient soon.
[2018-08-13] MEDS: IPRATROPIUM-ALBUTEROL 3 ML NEB INHALATION SCH ×4 (07:22→19:40)
[2018-08-13] MEDS: NOREPINEPHRINE 4 MG in SODIUM CHLORIDE 0.9% 250 ML IV SCH (08:15)
[2018-08-13] MEDS: CALCIUM ACETATE 667 MG CAP PO SCH ×3 (08:16→16:46)
[2018-08-13] MEDS: FOLIC ACID 1 MG TAB PO SCH (08:16)
[2018-08-13] MEDS: PANTOPRAZOLE 40 MG/10 ML VIAL IVP SCH ×2 (08:17→20:32)
[2018-08-13] MEDS: FLUCONAZOLE IN NACL,ISO-OSM 100 MG in SALINE 1 50ML.BAG IVPB SCH (08:17)
[2018-08-13] MEDS: metroNIDAZOLE 500 MG TAB OG-TUBE SCH ×3 (08:17→20:34)
[2018-08-13] MEDS: CHLORHEXIDINE GLUCONATE 15 ML CUP MUCOUS MEM SCH ×2 (08:17→20:33)
[2018-08-13] MEDS: SERTRALINE 100 MG TAB PO SCH (08:17)
[2018-08-13] MEDS: FUROSEMIDE 10 MG/ML 10 ML VIAL IV SCH (08:17)
[2018-08-13] MEDS: ATORVASTATIN 20 MG TAB PO SCH (08:18)
[2018-08-13] MEDS: ASPIRIN 81 MG PO SCH (08:18)
[2018-08-13] MEDS: CLOPIDOGREL 75 MG TAB PO SCH (08:18)
[2018-08-13] MEDS: LEVOTHYROXINE IVP 100 MCG/5 ML VIAL IV SCH (08:19)
[2018-08-13] MEDS ORDERED: FUROSEMIDE 10 MG/ML 2 ML VIAL IV ONE (08:30)
[2018-08-13] MEDS ORDERED: POTASSIUM CHLORIDE 20 MEQ in WATER FOR INJECTION 1 100ML.BAG IVPB STA (08:36)
--- NOTE | 2018-08-13 08:47 | P.PN ---
Progress Note - Text Progress Note Date: 08/13/18 The patient had tracheostomy and PEG tube placement yesterday. Per the nursing staff they've had no issues ventilating her. She is actually CPAP in this morning. On exam vital signs appear stable. Her abdomen soft. PEG tube site is clean. Status post tracheostomy and PEG tube placement. Patient will start PEG tube feedings this evening.
--- NOTE | 2018-08-13 08:50 | P.OP ---
Date of Procedure: 08/12/18 Preoperative Diagnosis: Respiratory failure Severe protein calorie malnutrition Postoperative Diagnosis: Respiratory failure Severe protein calorie malnutrition Procedure(s) Performed: Tracheostomy PEG tube placement Anesthesia: ANANDA Surgeon: Davon Ramirez Estimated Blood Loss (ml): 10 Pathology: none sent Condition: stable Disposition: PACU Description of Procedure: The patient's placed on the operative table in the supine position. Her neck was extended. Her neck and chest and abdomen were prepped and draped usual sterile fashion. A standard Chinedu incision was made approximately 3 cm above the sternal notch. Using electrocautery the subcutaneous tissue divided. The platysma was divided. The strap muscles were then divided in the midline. Using left cautery the thyroid gland was divided. And then the trachea was exposed. The OUTREACH LIBRARIAN then placed the endotracheal tube into the right mainstem bronchus. The tracheotomy was performed between the second and third tracheal rings. The endotracheal tube was brought back under direct visualization. And then the #8 Portex tracheostomy tube was placed into the trachea. The balloon was inflated. Patient's had to the ventilator. There was end-tidal CO2. There is no evidence of any air leak. The trach tie was applied to the tracheostomy tube. The skin had been closed with 3-0 nylon sutures. Next the gastroscope placed oropharynx and passed into the esophagus and stomach. The stomach was insufflated air. There is no evidence of any gastric outlet obstruction. A suitable light reflux was seen on the anterior abdominal wall. The skin was anesthetized 1% local Xylocaine. A skin incision was made 11 blade. Then a needles placed into the stomach under direct visualization. The needle was snared and the wire was placed through the needle. The wire was then snared brought to the oropharynx. The PEG tube placed overtop the wire and brought down to the stomach. The PEG tube bolster was secured at the 3 cm kayode. Patient top procedure well and was sent back to the ICU in stable condition.
--- NOTE | 2018-08-13 09:52 | XR ---
EXAMINATION TYPE: XR chest 1V portable DATE OF EXAM: 08/13/2018 HISTORY: pneumonia. REFERENCE: Previous study dated 08/12/2018. FINDINGS: The patient has been extubated and a tracheostomy tube is been inserted. The tip overlies t he tracheal air column in this single frontal projection. The NG tube is been removed. There is worse kimberly airspace disease on the left. I cannot ascertain whether the patient's left-sided pleural effusi on has increased. There is a small right-sided pleural effusion. There is some vascular congestion. T he heart is enlarged. IMPRESSION: 1. CARDIOMEGALY. 2. I COULD NOT EXCLUDE SOME DEGREE OF CONGESTIVE HEART FAILURE. 4. WORSENING OPACITY OF THE LEFT CHEST WITH A QUESTIONABLE ENLARGING EFFUSION. THERE IS A SMALL EFFUS ION ON THE RIGHT.
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
[2018-08-13 11:30] LABS: Glucose,Whole Blood 115 mg/dL (75-99)
[2018-08-13] MEDS: CEFTAROLINE FOSAMIL IVPB SCH (12:04)
[2018-08-13] MEDS: SODIUM CHLORIDE 0.9% IVPB SCH (12:04)
--- NOTE | 2018-08-13 12:51 | US ---
EXAMINATION TYPE: US chest DATE OF EXAM: 08/13/2018 COMPARISON: x ray CLINICAL HISTORY: Markings for thoracentesis by pulmonary staff. TECHNIQUE: Targeted ultrasound of the posterior bilateral hemithoraces EXAM MEASUREMENTS: Right Pleural Effusion pocket size: no significant fluid seen Left Pleural Effusion pocket size: 1.5 cm Right side was not marked for possible thoracentesis outside the dept. Left side was not marked for possible thoracentesis outside the dept. Pulmonologists are able to review the images in the patient?s EMR. IMPRESSIONS: SMALL LEFT PLEURAL EFFUSION.
--- NOTE | 2018-08-13 13:48 | P.PN ---
Subjective Progress Note Date: 08/13/18 Patient's daughter was present today. She is very pleased with the patient's progress. Since yesterday, patient is showing even more significant clinical improvement. Patient has started to follow commands. She is making eye contact, turning her head to the side, wiggling her toes, trying to squeeze h ands on commands. Patient continues to be intubated. Patient had an EEG performed, which revealed background slowing of moderate degree, suggestive of toxic metabolic encephalopathy or related to diffuse structural brain abnormality. No epileptiform activity was seen. Computed tomography scan of head showed no acute process. Small vessel disease. Some lacunar strokes in the basal ganglia bilaterally. Patient had undergone hemodialysis. Objective - Vital Signs Vital signs: Vital Signs Temp 98 F 08/13/18 13:00 Pulse 83 08/13/18 13:00 Resp 25 H 08/13/18 13:00 BP 121/82 08/13/18 13:00 Pulse Ox 93 L 08/13/18 13:00 Intake & Output 08/12/18 08/13/18 08/13/18 18:59 06:59 18:59 Intake Total 834.743 242 344 Output Total 445 2333 85 Balance 389.743 -3511 259 Weight 99.6 kg 98.7 kg Intake: IV 684 242 344 Ceftaroline Fosamil 200 50 100 mg In Sodium Chloride 0.9 % 50 ml @ 100 mls/hr IVPB Q12HR [facility] Rx#:[id number] Fluconazole in NaCl,Iso- 50 Osm 100 mg In Saline 1 50ml.bag @ 50 mls/hr IVPB DAILY [facility] Rx#:[id number] KVO 80 120 70 Normal Saline Pressure 54 72 24 bag Potassium Chloride 20 meq 100 In Water For Injection 1 100ml.bag @ 50 mls/hr IVPB [facility] Rx#: [id number] Sodium Chloride 0.45% 1, 150 000 ml @ 50 mls/hr IV . Q22H [facility] with Sodium Bicarb (1 Meq/ml) 100 ml Rx#:[id number] Intake, IV Titration 150.743 Amount Ceftaroline Fosamil 200 100 mg In Sodium Chloride 0.9 % 50 ml @ 100 mls/hr IVPB Q12HR [facility] Rx#:[id number] Fluconazole in NaCl,Iso- 50 Osm 100 mg In Saline 1 50ml.bag @ 50 mls/hr IVPB DAILY [facility] Rx#:[id number] Propofol 1,000 mg In 0.743 Empty Bag 1 bag @ Titrate IV .Q0M [facility] Rx#: [id number] Output: Urine 425 333 85 Hemodialysis 2000 Estimated Blood Loss 20 Other: Voiding Method Indwelling Catheter Indwelling Catheter Indwelling Catheter # Voids 2 2 ABP, PAP, CO, CI - Last Documented Arterial Blood Pressure 122/56 - Exam Patient is on mechanical ventilation,, much more alert and awake, making eye contact, following commands, turning head to the side, observing people around. Patient able to wrinkle her forehead on command. 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 She is able to wiggle her toes. Reflexes are symmetric, 1 in the biceps, trace at the brachioradialis. 2+ at bilateral knees. Patient has significant peripheral edema bilaterally. - Labs CBC & Chem 7: 08/13/18 05:20 08/13/18 05:20 Labs: Abnormal Lab Results - Last 24 Hours (Table) 08/13/18 08/13/18 08/13/18 Range/Units 00:18 05:18 05:20 WBC (3.8-10.6) k/uL RBC (3.80-5.40) m/uL Hgb (11.4-16.0) gm/dL Hct (34.0-46.0) % RDW (11.5-15.5) % Plt Count (150-450) k/uL BUN 39 H (7-17) mg/dL Creatinine 1.99 H (0.52-1.04) mg/dL Glucose 107 H (74-99) mg/dL POC Glucose (mg/dL) 111 H 119 H (75-99) mg/dL Calcium 7.6 L (8.4-10.2) mg/dL 08/13/18 08/13/18 Range/Units 05:20 11:27 WBC 20.5 H (3.8-10.6) k/uL RBC 2.44 L (3.80-5.40) m/uL Hgb 7.0 L (11.4-16.0) gm/dL Hct 21.6 L (34.0-46.0) % RDW 17.3 H (11.5-15.5) % Plt Count 144 L (150-450) k/uL BUN (7-17) mg/dL Creatinine (0.52-1.04) mg/dL Glucose (74-99) mg/dL POC Glucose (mg/dL) 115 H (75-99) mg/dL Calcium (8.4-10.2) mg/dL Microbiology - Last 24 Hours (Table) 08/06/18 10:30 Blood Culture - Final Blood No Growth after 144 hours Assessment and Plan Assessment: * Altered mental status, likely related to toxic metabolic encephalopathy. Patient's mentation much improved today. Patient following commands. * Recent history of cardiac arrest on 08/05/2018. * Generalized weakness of arms and legs, probably related to encephalopathy. Patient started to move her hands and feet slightly. Need to continue to watch. * Pneumonia, with recent history of septic shock. * Ventilator-dependent respiratory failure. * Acute renal failure, worsening, now getting hemodialysis * Anemia with hemoglobin 7.1 * Recent history of stroke TIA. * Coronary artery disease with history of cardiac stenting. * X tobacco use. * Possible underlying mild cognitive impairment Plan: Patient's mental status has remarkably improved. Hopefully she will continue to improve on a daily basis. Continue treatment for various toxic metabolic conditions. Patient on hemodialysis, which perhaps is helping with mentation. Continue dual antiplatelet medication including aspirin 81 mg and Plavix 75 mg EEG showed moderate encephalopathy. Hemoglobin A1c 5.3. Avoid opiates or other narcotics/sedatives. Treatment of other medical conditions as per internal medicine/critical care. We will follow clinically. Discussed with patient's daughter in detail.
--- NOTE | 2018-08-13 15:13 | PN ---
PROGRESS NOTE Patient is seen for followup for acute kidney injury. Patient remains on the vent. She has been following commands. The patient had a trach and PEG yesterday. Urine output has been at about 20 to 30 mL an hour. We had about 2 L of ultrafiltration yesterday with dialysis. Plan is to hold off on dialysis for the weekend. PHYSICAL EXAMINATION: On examination this morning, blood pressure was 114/71, heart rate of about 90 per minute. Patient is afebrile. EXAMINATION OF THE HEART: S1, S2. EXAMINATION OF THE LUNGS: Bilateral breath sounds are heard. Abdomen is soft, nontender. Examination of the lower extremities shows edema 2+ bilaterally. OSTEOLOGY TEACHER exam is not performed; however, the patient had been following commands earlier. The patient has been moving all 4 extremities. LABS: Labs show hemoglobin 7.0, white cell count 20.5. Sodium 140, potassium 3.7, BUN 39, serum creatinine 1.99 mg/dL. ASSESSMENT: 1. Acute kidney injury, acute tubular necrosis, currently with borderline urine output maintained on IV Lasix which we will continue for now. I will give 100 mg instead this morning. The patient had 2 L of ultrafiltration and hemodialysis yesterday. We will hold off on hemodialysis over the weekend. Monitor patient's recovery of renal function. 2. Encephalopathy, currently improved post dialysis. 3. Hyperphosphatemia, maintained on PhosLo. 4. Volume overload. Continue with IV Lasix, status post 2 L of ultrafiltration yesterday with dialysis. 5. Acute hypoxic respiratory failure, currently status post trach and PEG. 6. Sepsis with septic shock, currently improving. 7. Pneumonia from methicillin-resistant Staphylococcus aureus and sputum culture is also growing Inga. The patient is maintained on antibiotics and antifungal treatment. 8. Status post cardiopulmonary arrest. 9. Metabolic acidosis, status post bicarb drip. PLAN: Continue IV Lasix. I will change it to a Lasix drip and we will repeat labs in a.m. and continue to avoid nephrotoxic agents. Hold off on dialysis today and tomorrow. MMODL / IJN: [id number] /
--- NOTE | 2018-08-13 15:38 | P.PN ---
Subjective Progress Note Date: 08/13/18 Principal diagnosis: Confusion Patient is a 63-year-old female with a past medical history of COPD, DVT, GERD, hypertension, dyslipidemia, and asthma who presented with confusion. In the ER she underwent an extensive evaluation. CT of the head was unremarkable. She was found to have a right upper lobe pneumonia and she was started on antibiotics. Infectious disease was consulted who recommended maintaining antibiotics. Pulmonary was consulted. Sputum culture was obtained which showed probable MRSA. Zosyn was stopped and she was started on Teflaro due to inability to take Zyvox because of SSRI. Nephrology was consulted due to acute kidney injury. They stopped her Lasix, lisinopril, and Toradol. On the morning of 08/06 she went into respiratory distress necessitating intubation, she then had a PEA arrests and total down time was less than 10 minutes. She was moved to the ICU and had a central line placed and was started on norepinephrine. She underwent bronchoscopy with bronchial alveolar lavage. Chest x-ray showed pulmonary infiltrate. Clindamycin was initiated. She had decreased renal function after her code. She was started on a bicarb drip. She was found to have increased PA pressures and new pulmonary hypertension and the concern was for possible pulmonary embolism she was started on IV heparin. She had not made significant improvement in her renal function and was subsequently started on dialysis. She had 3 treatments of dialysis. Neurology was consulted who felt this was likely secondary to toxic metabolic encephalopathy but could have underlying anoxic encephalopathy. She had a trach and PEG placed on 08/12/18 and tolerated this well. She was starting to wake up after being taken off all sedatives. Patient seen and examined at bedside with present. She is awake and currently on a CPAP trial through her trach. She is following simple commands. She denies any pain or shortness of breath. at bedside and all questions answered. We discussed moving towards LTAC next week. This is my first evaluation of the patient on hospital day 13 Objective - Vital Signs Vital signs: Vital Signs Temp 98 F 08/13/18 13:00 Pulse 83 08/13/18 13:00 Resp 25 H 08/13/18 13:00 BP 121/82 08/13/18 13:00 Pulse Ox 93 L 08/13/18 13:00 Intake & Output 08/12/18 08/13/18 08/13/18 18:59 06:59 18:59 Intake Total 834.743 242 344 Output Total 445 2333 85 Balance 555.630 -4874 259 Weight 99.6 kg 98.7 kg Intake: IV 684 242 344 Ceftaroline Fosamil 200 50 100 mg In Sodium Chloride 0.9 % 50 ml @ 100 mls/hr IVPB Q12HR [facility] Rx#:[id number] Fluconazole in NaCl,Iso- 50 Osm 100 mg In Saline 1 50ml.bag @ 50 mls/hr IVPB DAILY [facility] Rx#:[id number] KVO 80 120 70 Normal Saline Pressure 54 72 24 bag Potassium Chloride 20 meq 100 In Water For Injection 1 100ml.bag @ 50 mls/hr IVPB ONCE [facility] Rx#: [id number] Sodium Chloride 0.45% 1, 150 000 ml @ 50 mls/hr IV . Q22H [facility] with Sodium Bicarb (1 Meq/ml) 100 ml Rx#:[id number] Intake, IV Titration 150.743 Amount Ceftaroline Fosamil 200 100 mg In Sodium Chloride 0.9 % 50 ml @ 100 mls/hr IVPB Q12HR [facility] Rx#:[id number] Fluconazole in NaCl,Iso- 50 Osm 100 mg In Saline 1 50ml.bag @ 50 mls/hr IVPB DAILY [facility] Rx#:[id number] Propofol 1,000 mg In 0.743 Empty Bag 1 bag @ Titrate IV .Q0M [facility] Rx#: [id number] Output: Urine 425 333 85 Hemodialysis 1999 Estimated Blood Loss 20 Other: Voiding Method Indwelling Catheter Indwelling Catheter Indwelling Catheter # Voids 2 2 ABP, PAP, CO, CI - Last Documented Arterial Blood Pressure 122/56 - Exam General: Ill appearing, no distress, appears at stated age Derm: warm, dry Head: atraumatic, normocephalic, symmetric Eyes: EOMI, no lid lag, anicteric sclera Mouth: no lip lesion, mucus membranes moist, trach in place without any signs of bleeding Cardiovascular: S1S2 reg, no murmur, positive posterior tibial pulse bilateral, Lungs: Coarse breath Sounds bilaterally, no rhonchi, no rales , no accessory muscle use Abdominal: soft, nontender to palpation, no guarding, no appreciable organomegaly, PEG in place without any signs of bleeding Ext: no gross muscle atrophy, diffuse anasarca, no contractures Neuro: CN II-XI grossly intact, no focal neuro deficits Psych: Alert, oriented, appropriate affect - Labs CBC & Chem 7: 08/13/18 05:20 08/13/18 05:20 Labs: Abnormal Lab Results - Last 24 Hours (Table) 08/13/18 08/13/18 08/13/18 Range/Units 00:18 05:18 05:20 WBC (3.8-10.6) k/uL RBC (3.80-5.40) m/uL Hgb (11.4-16.0) gm/dL Hct (34.0-46.0) % RDW (11.5-15.5) % Plt Count (150-450) k/uL BUN 39 H (7-17) mg/dL Creatinine 1.99 H (0.52-1.04) mg/dL Glucose 107 H (74-99) mg/dL POC Glucose (mg/dL) 111 H 119 H (75-99) mg/dL Calcium 7.6 L (8.4-10.2) mg/dL 08/13/18 08/13/18 Range/Units 05:20 11:27 WBC 20.5 H (3.8-10.6) k/uL RBC 2.44 L (3.80-5.40) m/uL Hgb 7.0 L (11.4-16.0) gm/dL Hct 21.6 L (34.0-46.0) % RDW 17.3 H (11.5-15.5) % Plt Count 144 L (150-450) k/uL BUN (7-17) mg/dL Creatinine (0.52-1.04) mg/dL Glucose (74-99) mg/dL POC Glucose (mg/dL) 115 H (75-99) mg/dL Calcium (8.4-10.2) mg/dL Microbiology - Last 24 Hours (Table) 08/06/18 10:30 Blood Culture - Final Blood No Growth after 144 hours Assessment and Plan Assessment: MRSA pneumonia -Completed Teflaro on 08/12 -Pulmonary hygiene -Infectious disease recommendations appreciated - on diflucan for possible oral candiasis Antibiotic associate diarrhea - c diff negative - flagyl per ID - maintain fecal management system Acute hypoxic respiratory failure -Status post tracheostomy -Vent management per pulmonary -On PhosLo Acute kidney injury requiring hemodialysis -Nephrology recommendations appreciated: We'll plan to hold on dialysis for the weekend, starting Lasix drip today -Avoid additional nephrotoxic agents -Follow basic metabolic profile daily COPD with exacerbation -Scheduled DuoNeb's -When necessary bronchodilators -Solu-Medrol Hypertension, controlled -Follow blood pressures -No longer norepinephrine -Off Norvasc, metoprolol, and lisinopril Hypothyroidism -Continue with Synthroid therapy Chronic pain syndrome -Status post removal of pain pump -Percocet Severe pulmonary hypertension -Management per pulmonary Critical illness polyneuropathy -PT/OT evaluation -Likely will need LTAC History of closed head injury Aborted sudden cardiac with PEA Septic shock, resolved DVT prophylaxis: heparin Discussed with: Patient, , nursing Anticipated discharge: 1-[address]: home A total of 45 minutes was spent on the care of this complex patient more than 50% of the time was spent in counseling and care coordination.
[2018-08-13] MEDS: FUROSEMIDE 100 MG in SODIUM CHLORIDE 0.9% 90 ML IV SCH (16:46)
[2018-08-13 16:57] LABS: Glucose,Whole Blood 120 mg/dL (75-99)
[2018-08-13] MEDS: QUEtiapine 200 MG TAB PO SCH (20:33)
[2018-08-13] MEDS: MONTELUKAST 10 MG TAB PO SCH (20:33)
[2018-08-13] MEDS: HEPARIN SODIUM,PORCINE 5,000 UNIT/ML 1 ML VIAL SQ SCH (20:33)
[2018-08-13] MEDS: AMITRIPTYLINE HCL 50 MG TAB PO SCH (20:33)
[2018-08-13] MEDS: DOCUSATE 100 MG CAP PO SCH (20:33)
--- NOTE | 2018-08-13 22:05 | P.PN ---
Subjective Progress Note Date: 08/13/18 Principal diagnosis: Left upper lobe pneumonia The patient is status post track and PEG yesterday the patient tolerated the procedure well , the patient is currently afebrile, the patient did respond to some simple commands and answer some simple questions , hemodynamically stable not requiring any pressor support, tube feeds restarted today, no worsening diarrhea Objective - Vital Signs Vital signs: Vital Signs Temp 98 F 08/13/18 13:00 Pulse 83 08/13/18 13:00 Resp 25 H 08/13/18 13:00 BP 121/82 08/13/18 13:00 Pulse Ox 93 L 08/13/18 13:00 Intake & Output 08/12/18 08/13/18 08/13/18 18:59 06:59 18:59 Intake Total 834.743 242 344 Output Total 445 2333 85 Balance 389.615 -7568 259 Weight 99.6 kg 98.7 kg Intake: IV 684 242 344 Ceftaroline Fosamil 200 50 100 mg In Sodium Chloride 0.9 % 50 ml @ 100 mls/hr IVPB Q12HR [facility] Rx#:[id number] Fluconazole in NaCl,Iso- 50 Osm 100 mg In Saline 1 50ml.bag @ 50 mls/hr IVPB DAILY [facility] Rx#:[id number] KVO 80 120 70 Normal Saline Pressure 54 72 24 bag Potassium Chloride 20 meq 100 In Water For Injection 1 100ml.bag @ 50 mls/hr IVPB ONCE [facility] Rx#: [id number] Sodium Chloride 0.45% 1, 150 000 ml @ 50 mls/hr IV . Q22H [facility] with Sodium Bicarb (1 Meq/ml) 100 ml Rx#:[id number] Intake, IV Titration 150.743 Amount Ceftaroline Fosamil 200 100 mg In Sodium Chloride 0.9 % 50 ml @ 100 mls/hr IVPB Q12HR [facility] Rx#:[id number] Fluconazole in NaCl,Iso- 50 Osm 100 mg In Saline 1 50ml.bag @ 50 mls/hr IVPB DAILY [facility] Rx#:[id number] Propofol 1,000 mg In 0.743 Empty Bag 1 bag @ Titrate IV .Q0M [facility] Rx#: [id number] Output: Urine 425 333 85 Hemodialysis 2000 Estimated Blood Loss 20 Other: Voiding Method Indwelling Catheter Indwelling Catheter Indwelling Catheter # Voids 2 2 ABP, PAP, CO, CI - Last Documented Arterial Blood Pressure 122/56 - Exam GENERAL DESCRIPTION:[ Middle-aged female intubated through the trach on the vent] HEENT: [Patient is orally intubated and limited examination of the oral cavity] EYES : [No pallor or scleral icterus] RESPIRATORY SYSTEM: [Unlabored breathing decreased breath sound at the base] CARDIA VASCULAR SYSTEM: [S1-S2 regular rate and rhythm no murmur] GI: [Abdominal soft there's no tenderness no organomegaly] EXTREMITIES: [No edema feet] - Labs CBC & Chem 7: 08/13/18 05:20 08/13/18 05:20 Labs: Abnormal Lab Results - Last 24 Hours (Table) 08/13/18 08/13/18 08/13/18 Range/Units 00:18 05:18 05:20 WBC (3.8-10.6) k/uL RBC (3.80-5.40) m/uL Hgb (11.4-16.0) gm/dL Hct (34.0-46.0) % RDW (11.5-15.5) % Plt Count (150-450) k/uL BUN 39 H (7-17) mg/dL Creatinine 1.99 H (0.52-1.04) mg/dL Glucose 107 H (74-99) mg/dL POC Glucose (mg/dL) 111 H 119 H (75-99) mg/dL Calcium 7.6 L (8.4-10.2) mg/dL 08/13/18 08/13/18 Range/Units 05:20 11:27 WBC 20.5 H (3.8-10.6) k/uL RBC 2.44 L (3.80-5.40) m/uL Hgb 7.0 L (11.4-16.0) gm/dL Hct 21.6 L (34.0-46.0) % RDW 17.3 H (11.5-15.5) % Plt Count 144 L (150-450) k/uL BUN (7-17) mg/dL Creatinine (0.52-1.04) mg/dL Glucose (74-99) mg/dL POC Glucose (mg/dL) 115 H (75-99) mg/dL Calcium (8.4-10.2) mg/dL Microbiology - Last 24 Hours (Table) 08/06/18 10:30 Blood Culture - Final Blood No Growth after 144 hours Assessment and Plan Assessment: 1-patient with left upper lobe pneumonia with a sputum culture has been finalized as MRSA , subsequent worsening of her clinical condition and cardiac arrest and status post resuscitation and intubation as well as bronchoscopy----bronchoscopy cultures are currently growing Inga only--- status post trach and PEG 2-patient is on SSRI contraindicating the use of Zyvox 3-patient with significant diarrhea, antibiotic associated ,stool for C. diff is negative , diarrhea slightly decreased in frequency 4- leukocytosis more likely secondary steroids clinically no evidence of any worsening infection. (1) Sepsis Current Visit: Yes Status: Acute Code(s): A41.9 - SEPSIS, UNSPECIFIED ORGANISM SNOMED Code(s): 37545991 (2) Nosocomial pneumonia Current Visit: Yes Status: Acute Code(s): J18.9 - PNEUMONIA, UNSPECIFIED ORGANISM; Y95 - NOSOCOMIAL CONDITION SNOMED Code(s): 749021921 Plan: 1- the patient is currently on Teflaro 200 mg twice along with Flagyl 500 every 8 hours, to continue to finish her course of therapy 2-continue Diflucan for possible oropharyngeal candidiasis Family at the bedside questions concerned were answered Time with Patient: Less than 30
--- NOTE | 2018-08-13 22:08 | P.PN ---
Subjective Progress Note Date: 08/12/18 Principal diagnosis: MRSA/ aspiration pneumonia The patient is currently afebrile, the patient is scheduled for tracking back today hemodynamically stable state that he has been noticed patient answer some simple questions per family present at the bedside no other events reported by the nursing staff Objective - Vital Signs Vital signs: Vital Signs Temp 98.7 F 08/12/18 12:00 Pulse 78 08/12/18 13:00 Resp 24 08/12/18 13:00 BP 114/79 08/12/18 06:00 Pulse Ox 94 L 08/12/18 13:00 Intake & Output 08/11/18 08/12/18 08/12/18 18:59 06:59 18:59 Intake Total 1520.705 921 370.743 Output Total 820 250 180 Balance 700.705 671 190.743 Weight 99 kg 99.6 kg Intake: IV 728 616 220 KVO 40 Normal Saline Pressure 78 66 30 bag Sodium Chloride 0.45% 1, 650 550 150 000 ml @ 50 mls/hr IV . Q22H [facility] with Sodium Bicarb (1 Meq/ml) 100 ml Rx#:[id number] Intake, IV Titration 178.705 200 150.743 Amount Ceftaroline Fosamil 200 50 100 mg In Sodium Chloride 0.9 % 50 ml @ 100 mls/hr IVPB Q12HR [facility] Rx#:[id number] Fluconazole in NaCl,Iso- 50 50 Osm 100 mg In Saline 1 50ml.bag @ 50 mls/hr IVPB DAILY [facility] Rx#:[id number] Propofol 1,000 mg In 78.705 200 0.743 Empty Bag 1 bag @ Titrate IV .Q0M [facility] [place] Rx#: [id number] Tube Feeding 304 105 Blood Product 310 Rc As-1 Unit 310 [id number] Output: Urine 320 250 180 Hemodialysis 500 Other: Voiding Method Indwelling Catheter Indwelling Catheter Indwelling Catheter # Voids 2 ABP, PAP, CO, CI - Last Documented Arterial Blood Pressure 115/54 - Exam GENERAL DESCRIPTION:[ Middle-aged female intubated through the trach on the vent] HEENT: [Patient is orally intubated and limited examination of the oral cavity] EYES : [No pallor or scleral icterus] RESPIRATORY SYSTEM: [Unlabored breathing decreased breath sound at the base] CARDIA VASCULAR SYSTEM: [S1-S2 regular rate and rhythm no murmur] GI: [Abdominal soft there's no tenderness no organomegaly] EXTREMITIES: [No edema feet] - Labs CBC & Chem 7: 08/13/18 05:20 08/13/18 05:20 Labs: Abnormal Lab Results - Last 24 Hours (Table) 08/11/18 08/11/18 08/11/18 Range/Units 07:00 17:01 20:50 WBC (3.8-10.6) k/uL RBC (3.80-5.40) m/uL Hgb (11.4-16.0) gm/dL Hct (34.0-46.0) % RDW (11.5-15.5) % Plt Count (150-450) k/uL Neutrophils # (1.3-7.7) k/uL Lymphocytes # (1.0-4.8) k/uL ABG pH (7.35-7.45) ABG Total CO2 (19-24) mmol/L ABG O2 Saturation (94-97) % BUN (7-17) mg/dL Creatinine (0.52-1.04) mg/dL Glucose (74-99) mg/dL POC Glucose (mg/dL) 123 H 126 H (75-99) mg/dL Calcium (8.4-10.2) mg/dL Phosphorus (2.5-4.5) mg/dL AST (14-36) U/L Alkaline Phosphatase (38-126) U/L Total Protein (6.3-8.2) g/dL Albumin (3.5-5.0) g/dL Crossmatch See Detail 08/12/18 08/12/18 08/12/18 Range/Units 05:45 05:45 06:02 WBC 22.9 H (3.8-10.6) k/uL RBC 2.60 L (3.80-5.40) m/uL Hgb 7.4 L (11.4-16.0) gm/dL Hct 22.7 L (34.0-46.0) % RDW 17.5 H (11.5-15.5) % Plt Count 144 L (150-450) k/uL Neutrophils # 21.7 H (1.3-7.7) k/uL Lymphocytes # 0.4 L (1.0-4.8) k/uL ABG pH (7.35-7.45) ABG Total CO2 (19-24) mmol/L ABG O2 Saturation (94-97) % BUN 55 H (7-17) mg/dL Creatinine 2.74 H (0.52-1.04) mg/dL Glucose 113 H (74-99) mg/dL POC Glucose (mg/dL) 129 H (75-99) mg/dL Calcium 7.7 L (8.4-10.2) mg/dL Phosphorus 6.3 H (2.5-4.5) mg/dL AST 49 H (14-36) U/L Alkaline Phosphatase 129 H (38-126) U/L Total Protein 4.9 L (6.3-8.2) g/dL Albumin 2.2 L (3.5-5.0) g/dL Crossmatch 08/12/18 08/12/18 08/12/18 Range/Units 07:10 07:45 11:20 WBC (3.8-10.6) k/uL RBC (3.80-5.40) m/uL Hgb (11.4-16.0) gm/dL Hct (34.0-46.0) % RDW (11.5-15.5) % Plt Count (150-450) k/uL Neutrophils # (1.3-7.7) k/uL Lymphocytes # (1.0-4.8) k/uL ABG pH 7.47 H (7.35-7.45) ABG Total CO2 26 H (19-24) mmol/L ABG O2 Saturation 97.5 H (94-97) % BUN (7-17) mg/dL Creatinine (0.52-1.04) mg/dL Glucose (74-99) mg/dL POC Glucose (mg/dL) 122 H 119 H (75-99) mg/dL Calcium (8.4-10.2) mg/dL Phosphorus (2.5-4.5) mg/dL AST (14-36) U/L Alkaline Phosphatase (38-126) U/L Total Protein (6.3-8.2) g/dL Albumin (3.5-5.0) g/dL Crossmatch Microbiology - Last 24 Hours (Table) 08/06/18 10:30 Blood Culture - Final Blood No Growth after 144 hours Assessment and Plan Assessment: 1-patient with left upper lobe pneumonia with a sputum culture has been finalized as MRSA , subsequent worsening of her clinical condition and cardiac arrest and status post resuscitation and intubation with a complaint of possible aspiration pneumonia, s/p bronchoscopy----bronchoscopy cultures are currently growing Inga only--- patient could not be extubated hence scheduled for trach and PEG today 2-patient is on SSRI contraindicating the use of Zyvox 3-patient with significant diarrhea, antibiotic associated ,stool for C. diff is negative , diarrhea slightly decreased in frequency 4- leukocytosis more likely secondary steroids clinically no evidence of any worsening infection. (1) Sepsis Current Visit: Yes Status: Acute Code(s): A41.9 - SEPSIS, UNSPECIFIED ORGANISM SNOMED Code(s): 65371114 (2) Nosocomial pneumonia Current Visit: Yes Status: Acute Code(s): J18.9 - PNEUMONIA, UNSPECIFIED ORGANISM; Y95 - NOSOCOMIAL CONDITION SNOMED Code(s): 360609899 Plan: 1- the patient will be continued on Teflaro 200 mg twice along with Flagyl 500 every 8 hours, to continue to finish her course of therapy 2-continue Diflucan for possible oropharyngeal candidiasis Overall prognosis guarded Time with Patient: Less than 30
[2018-08-13 23:48] LABS: Glucose,Whole Blood 121 mg/dL (75-99)
[2018-08-14] MEDS: methylPREDNISolone SOD SUCCI 125 MG/2 ML VIAL IV SCH ×5 (00:16→23:42)
[2018-08-14] MEDS: INSULIN ASPART (NovoLOG) 100 UNIT/ML VIAL SQ SCH ×5 (00:17→23:44)
--- NOTE | 2018-08-14 00:20 | XR ---
EXAM: XR Chest, 1 View CLINICAL HISTORY: : pneumonia TECHNIQUE: Frontal view of the chest. COMPARISON: 08/13/18 FINDINGS: Lungs: Worsening bilateral infiltrates. Compared to prior study. Tracheostomy tube left-sided catheter unchanged in position. Pleural space: Unremarkable. No pneumothorax. Heart: Unremarkable. No cardiomegaly. Mediastinum: Unremarkable. Bones/joints: Unremarkable. IMPRESSION: Worsening bilateral infiltrates
[2018-08-14] MEDS: FUROSEMIDE 100 MG in SODIUM CHLORIDE 0.9% 90 ML IV SCH ×3 (00:40→20:52)
[2018-08-14] MEDS: SODIUM CHLORIDE 0.9% IVPB SCH ×3 (00:41→23:42)
[2018-08-14] MEDS: CEFTAROLINE FOSAMIL IVPB SCH ×3 (00:41→23:42)
[2018-08-14] MEDS: PROPOFOL 1,000 MG in EMPTY BAG 1 BAG IV SCH ×6 (00:50→23:42)
[2018-08-14] MEDS: NOREPINEPHRINE 32 MG in SODIUM CHLORIDE 0.9% 218 ML IV SCH (01:31)
[2018-08-14 05:28] LABS: Glucose,Whole Blood 140 mg/dL (75-99)
[2018-08-14 05:38] LABS: Anisocytosis Slight; Hypochromasia Slight; MCH 28.3 pg (25.0-35.0); MCHC 31.1 g/dL (31.0-37.0); MCV 90.9 fL (80.0-100.0); Mean Platelet Volume 8.6; Platelet Count 140 k/uL (150-450); RBC 2.14 m/uL (3.80-5.40); RDW 17.9 % (11.5-15.5); WBC 18.6 k/uL (3.8-10.6)
[2018-08-14 05:47] LABS: Magnesium 2.1 mg/dL (1.6-2.3); Phosphorus 6.7 mg/dL (2.5-4.5); Potassium 4.2 mmol/L (3.5-5.1)
[2018-08-14 05:58] LABS: HGB 6.1 gm/dL (11.4-16.0)
[2018-08-14 05:59] LABS: HCT 19.5 % (34.0-46.0)
[2018-08-14] MEDS: CALCIUM ACETATE 667 MG CAP PO SCH ×3 (07:02→17:00)
[2018-08-14] MEDS: LEVOTHYROXINE 75 MCG TAB PEG/G-TUBE SCH (07:02)
[2018-08-14] MEDS: IPRATROPIUM-ALBUTEROL 3 ML NEB INHALATION SCH ×4 (07:25→19:39)
[2018-08-14 07:33] LABS: ABG Base Excess 2.4 mmol/L; ABG HCO3 27 mmol/L (21-25); ABG Oxygen Saturation 95.3 % (94-97); ABG PCO2 39 mmHg (35-45); ABG PH 7.44 (7.35-7.45); ABG PO2 74 mmHg (83-108); ABG TCO2 28 mmol/L (19-24)
[2018-08-14] MEDS: fentaNYL (PF) 1,000 MCG in SODIUM CHLORIDE 0.9% 80 ML IV SCH ×2 (07:38→18:10)
[2018-08-14] MEDS: PANTOPRAZOLE 40 MG/10 ML VIAL IVP SCH ×2 (08:04→20:54)
[2018-08-14] MEDS: CHLORHEXIDINE GLUCONATE 15 ML CUP MUCOUS MEM SCH ×2 (08:04→20:53)
[2018-08-14] MEDS: HEPARIN SODIUM,PORCINE 5,000 UNIT/ML 1 ML VIAL SQ SCH ×2 (08:04→20:53)
[2018-08-14] MEDS: ATORVASTATIN 20 MG TAB PO SCH (08:05)
[2018-08-14] MEDS: ASPIRIN 81 MG PO SCH (08:05)
[2018-08-14] MEDS: metroNIDAZOLE 500 MG TAB OG-TUBE SCH ×3 (08:05→20:53)
[2018-08-14] MEDS: CLOPIDOGREL 75 MG TAB PO SCH (08:05)
[2018-08-14] MEDS: SERTRALINE 100 MG TAB PO SCH (08:05)
[2018-08-14] MEDS: FOLIC ACID 1 MG TAB PO SCH (08:05)
[2018-08-14] MEDS: FLUCONAZOLE IN NACL,ISO-OSM 100 MG in SALINE 1 50ML.BAG IVPB SCH (08:06)
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
[2018-08-14 11:40] LABS: Glucose,Whole Blood 140 mg/dL (75-99)
--- NOTE | 2018-08-14 12:06 | PN ---
PROGRESS NOTE Patient is seen for followup for acute kidney injury. Last night she had issues with vent and FiO2 was increased back to 100%. The patient was also started on Lasix drip yesterday. Her urine output has been at about 40 mL/hour with the Lasix drip. Patient remains fluid overloaded. Chest x-ray shows worsening bilateral infiltrates. FiO2 is currently down to 45%. PEEP is at 8. The patient is back on a small amount of Levophed. PHYSICAL EXAMINATION: This morning, blood pressure was 94/60, heart rate of 70 per minute. Patient is afebrile. Examination of the heart S1, S2. Examination of the lungs bilateral breath sounds are heard. Abdomen is soft, distended, nontender. Exam of lower extremities shows edema 2+ bilaterally. [employer] exam cannot be performed. LABS: Show hemoglobin 6.1, white cell count 18.6. Sodium 139, potassium 4.2, BUN 59, serum creatinine 2.78, phosphorus 6.7. ASSESSMENT: 1. Acute kidney injury, acute tubular necrosis, currently nonoliguric, maintained on Lasix drip. However, patient is volume overloaded. She had issues with the vent last night. We will proceed with dialysis and mainly ultrafiltration of about 2 L. We will not dialyze her. We will only perform ultrafiltration. 2. Anemia with drop in hemoglobin back down to 6.1 g/dL. No active bleeding is noted. Patient was transfused packed RBCs previously as well. She is being transfused packed RBCs again today. 3. Acute hypoxic respiratory failure secondary to sepsis and congestive heart failure and pneumonia maintained on the vent. 4. MRSA pneumonia as well as Inga albicans in bronchial washings and sputum cultures. Maintained on antibiotics and antifungal treatment. 5. Hyperphosphatemia secondary to renal failure, maintained on PhosLo. If tube feeds are advanced, changed to Nepro. 6. Volume overload. Continue with Lasix drip and UF of about 2 L today. Only ultrafiltration with dialysis and no hemodialysis. Repeat labs in a.m. MMODL / IJN: [id number] /
--- NOTE | 2018-08-14 12:13 | P.PN ---
Subjective Progress Note Date: 08/14/18 Principal diagnosis: Acute hypoxic respiratory failure This is a pleasant 63-year-old female patient to ICU in the office as an outpatient with history of coronary artery disease and prior stenting of the RCA, hypertension, dyslipidemia, and multiple psychiatric disorder, who was admitted to the hospital with pneumonia and subsequently cardiac arrest required dissociation and intubation. The patient was diagnosed with MRSA pneumonia. During her stay, her clinical course was complicated by renal failure requiring dialysis as well as by hemodynamic instability likely related to septic shock. On follow-up with the patient today, a 2018, the patient got agitated last night and she was put on sedation again. Beside that she started being hemodynamically stable and she was restarted again on norepinephrine. She continues to be in normal sinus mechanism. She was started by the nephrology team on Lasix drip. She continues to require dialysis. Heart pollock, she continues to be in normal sinus mechanism. She continues to be on dual antiplatelet therapy. Objective - Vital Signs Vital signs: Vital Signs Temp 98.1 F 08/14/18 11:11 Pulse 64 08/14/18 11:21 Resp 24 08/14/18 11:11 BP 117/60 08/14/18 11:11 Pulse Ox 96 08/14/18 10:39 Intake & Output 08/13/18 08/14/18 08/14/18 18:59 06:59 18:59 Intake Total 412 590.946 917.167 Output Total 315 445 235 Balance 97 145.946 682.167 Weight 97.4 kg Intake: IV 412 196 144 Ceftaroline Fosamil 200 100 mg In Sodium Chloride 0.9 % 50 ml @ 100 mls/hr IVPB Q12HR [facility] Rx#:[id number] Fluconazole in NaCl,Iso- 50 10 50 Osm 100 mg In Saline 1 50ml.bag @ 50 mls/hr IVPB DAILY [facility] Rx#:[id number] KVO 120 120 40 Norepinephrine 32 mg In 30 Sodium Chloride 0.9% 218 ml @ 0.05 MCG/KG/MIN 2. 313 mls/hr IV .Q24H [facility] Rx#:[id number] Normal Saline Pressure 42 66 24 bag Potassium Chloride 20 meq 100 In Water For Injection 1 100ml.bag @ 50 mls/hr IVPB ONCE STA Rx#: [id number] Intake, IV Titration 164.946 293.167 Amount Furosemide 100 mg In 79 93.167 Sodium Chloride 0.9% 90 ml @ 10 MG/HR 10 mls/hr IV .Q10H [facility] Rx#: [id number] Norepinephrine 32 mg In 4.025 Sodium Chloride 0.9% 218 ml @ 0.05 MCG/KG/MIN 2. 313 mls/hr IV .Q24H [facility] Rx#:[id number] Propofol 1,000 mg In 81.921 200 Empty Bag 1 bag @ Titrate IV .Q0M [facility] Rx#: [id number] Tube Feeding 140 80 Blood Product 310 Rc Pheresis As-3 Unit 310 [id number] Other 90 90 Output: Urine 315 445 235 Other: Voiding Method Indwelling Catheter Indwelling Catheter # Voids 2 2 ABP, PAP, CO, CI - Last Documented Arterial Blood Pressure 105/53 - Constitutional General appearance: Present: no acute distress - Respiratory Respiratory: bilateral: diminished - Cardiovascular Rhythm: regular Heart sounds: normal: S1, S2 - Labs CBC & Chem 7: 08/14/18 05:27 08/14/18 05:27 Labs: Abnormal Lab Results - Last 24 Hours (Table) 08/11/18 08/13/18 08/13/18 Range/Units 07:00 16:45 23:44 WBC (3.8-10.6) k/uL RBC (3.80-5.40) m/uL Hgb (11.4-16.0) gm/dL Hct (34.0-46.0) % RDW (11.5-15.5) % Plt Count (150-450) k/uL ABG pO2 (83-108) mmHg ABG HCO3 (21-25) mmol/L ABG Total CO2 (19-24) mmol/L BUN (7-17) mg/dL Creatinine (0.52-1.04) mg/dL Glucose (74-99) mg/dL POC Glucose (mg/dL) 120 H 121 H (75-99) mg/dL Calcium (8.4-10.2) mg/dL Phosphorus (2.5-4.5) mg/dL Crossmatch See Detail 08/14/18 08/14/18 08/14/18 Range/Units 05:24 05:27 05:27 WBC 18.6 H (3.8-10.6) k/uL RBC 2.14 L (3.80-5.40) m/uL Hgb 6.1 L* (11.4-16.0) gm/dL Hct 19.5 L* (34.0-46.0) % RDW 17.9 H (11.5-15.5) % Plt Count 140 L (150-450) k/uL ABG pO2 (83-108) mmHg ABG HCO3 (21-25) mmol/L ABG Total CO2 (19-24) mmol/L BUN 59 H (7-17) mg/dL Creatinine 2.78 H (0.52-1.04) mg/dL Glucose 123 H (74-99) mg/dL POC Glucose (mg/dL) 140 H (75-99) mg/dL Calcium 8.0 L (8.4-10.2) mg/dL Phosphorus 6.7 H (2.5-4.5) mg/dL Crossmatch 08/14/18 08/14/18 Range/Units 07:28 11:38 WBC (3.8-10.6) k/uL RBC (3.80-5.40) m/uL Hgb (11.4-16.0) gm/dL Hct (34.0-46.0) % RDW (11.5-15.5) % Plt Count (150-450) k/uL ABG pO2 74 L (83-108) mmHg ABG HCO3 27 H (21-25) mmol/L ABG Total CO2 28 H (19-24) mmol/L BUN (7-17) mg/dL Creatinine (0.52-1.04) mg/dL Glucose (74-99) mg/dL POC Glucose (mg/dL) 140 H (75-99) mg/dL Calcium (8.4-10.2) mg/dL Phosphorus (2.5-4.5) mg/dL Crossmatch Assessment and Plan Assessment: Assessment #1 acute hypoxic respiratory failure #2 bilateral pneumonia, with MRSA #3 acute renal failure #4 anemia #5 known coronary artery disease and prior coronary artery stenting #6 multiple comorbid conditions. Plan #1 continue the current medical regimen #2 continue dual antiplatelet therapy #3 continue monitor the kidney function and electrolytes #4 continue dual antiplatelet therapy along with a statin
--- NOTE | 2018-08-14 13:07 | P.PN ---
Subjective Progress Note Date: 08/14/18 Principal diagnosis: MRSA / aspiration pneumonia The patient did have worsening of her clinical condition last night with respiratory distress requiring vent support, however hemodynamics stable not requiring any pressor support the patient did have worsening of the x-ray finding for which the patient has been dialyzed also receiving blood transfusion for low hemoglobin, 2 feeds currently in the possible getting restarted, did have a loose stool but no worsening as for his amount and frequency Objective - Vital Signs Vital signs: Vital Signs Temp 98.1 F 08/14/18 12:00 Pulse 64 08/14/18 12:00 Resp 24 08/14/18 12:00 BP 99/64 08/14/18 12:00 Pulse Ox 99 08/14/18 12:00 Intake & Output 08/13/18 08/14/18 08/14/18 18:59 06:59 18:59 Intake Total 412 142.640 9520.167 Output Total 315 445 355 Balance 97 145.946 814.167 Weight 97.4 kg Intake: IV 412 196 296 Ceftaroline Fosamil 200 100 mg In Sodium Chloride 0.9 % 50 ml @ 100 mls/hr IVPB Q12H [facility] Rx#:[id number] Ceftaroline Fosamil 200 100 mg In Sodium Chloride 0.9 % 50 ml @ 100 mls/hr IVPB Q12HR [facility] Rx#:[id number] Fluconazole in NaCl,Iso- 50 10 50 Osm 100 mg In Saline 1 50ml.bag @ 50 mls/hr IVPB DAILY [facility] Rx#:[id number] Furosemide 100 mg In 20 Sodium Chloride 0.9% 90 ml @ 10 MG/HR 10 mls/hr IV .Q10H [facility] Rx#: [id number] KVO 120 120 60 Norepinephrine 32 mg In 30 Sodium Chloride 0.9% 218 ml @ 0.05 MCG/KG/MIN 2. 313 mls/hr IV .Q24H [facility] Rx#:[id number] Normal Saline Pressure 42 66 36 bag Potassium Chloride 20 meq 100 In Water For Injection 1 100ml.bag @ 50 mls/hr IVPB ONCE STA Rx#: [id number] Intake, IV Titration 164.946 293.167 Amount Furosemide 100 mg In 79 93.167 Sodium Chloride 0.9% 90 ml @ 10 MG/HR 10 mls/hr IV .Q10H [facility] Rx#: [id number] Norepinephrine 32 mg In 4.025 Sodium Chloride 0.9% 218 ml @ 0.05 MCG/KG/MIN 2. 313 mls/hr IV .Q24H [facility] Rx#:[id number] Propofol 1,000 mg In 81.921 200 Empty Bag 1 bag @ Titrate IV .Q0M [facility] Rx#: [id number] Tube Feeding 140 150 Blood Product 310 Rc Pheresis As-3 Unit 310 [id number] Other 90 120 Output: Urine 315 445 355 Other: Voiding Method Indwelling Catheter Indwelling Catheter # Voids 2 2 2 ABP, PAP, CO, CI - Last Documented Arterial Blood Pressure 124/63 - Exam GENERAL DESCRIPTION:[ Middle-aged female intubated through the trach on the vent] HEENT: [Patient is orally intubated and limited examination of the oral cavity] EYES : [No pallor or scleral icterus] RESPIRATORY SYSTEM: [Unlabored breathing decreased breath sound at the base] CARDIA VASCULAR SYSTEM: [S1-S2 regular rate and rhythm no murmur] GI: [Abdominal soft there's no tenderness no organomegaly] EXTREMITIES: [No edema feet] - Labs CBC & Chem 7: 08/14/18 05:27 08/14/18 05:27 Labs: Abnormal Lab Results - Last 24 Hours (Table) 08/11/18 08/13/18 08/13/18 Range/Units 07:00 16:45 23:44 WBC (3.8-10.6) k/uL RBC (3.80-5.40) m/uL Hgb (11.4-16.0) gm/dL Hct (34.0-46.0) % RDW (11.5-15.5) % Plt Count (150-450) k/uL ABG pO2 (83-108) mmHg ABG HCO3 (21-25) mmol/L ABG Total CO2 (19-24) mmol/L BUN (7-17) mg/dL Creatinine (0.52-1.04) mg/dL Glucose (74-99) mg/dL POC Glucose (mg/dL) 120 H 121 H (75-99) mg/dL Calcium (8.4-10.2) mg/dL Phosphorus (2.5-4.5) mg/dL Stool Occult Blood (Negative) Crossmatch See Detail 05/03/2308/14/18 08/14/18 Range/Units 05:24 05:27 05:27 WBC 18.6 H (3.8-10.6) k/uL RBC 2.14 L (3.80-5.40) m/uL Hgb 6.1 L* (11.4-16.0) gm/dL Hct 19.5 L* (34.0-46.0) % RDW 17.9 H (11.5-15.5) % Plt Count 140 L (150-450) k/uL ABG pO2 (83-108) mmHg ABG HCO3 (21-25) mmol/L ABG Total CO2 (19-24) mmol/L BUN 59 H (7-17) mg/dL Creatinine 2.78 H (0.52-1.04) mg/dL Glucose 123 H (74-99) mg/dL POC Glucose (mg/dL) 140 H (75-99) mg/dL Calcium 8.0 L (8.4-10.2) mg/dL Phosphorus 6.7 H (2.5-4.5) mg/dL Stool Occult Blood (Negative) Crossmatch 08/14/18 08/14/18 08/14/18 Range/Units 07:28 10:19 11:38 WBC (3.8-10.6) k/uL RBC (3.80-5.40) m/uL Hgb (11.4-16.0) gm/dL Hct (34.0-46.0) % RDW (11.5-15.5) % Plt Count (150-450) k/uL ABG pO2 74 L (83-108) mmHg ABG HCO3 27 H (21-25) mmol/L ABG Total CO2 28 H (19-24) mmol/L BUN (7-17) mg/dL Creatinine (0.52-1.04) mg/dL Glucose (74-99) mg/dL POC Glucose (mg/dL) 140 H (75-99) mg/dL Calcium (8.4-10.2) mg/dL Phosphorus (2.5-4.5) mg/dL Stool Occult Blood Positive H (Negative) Crossmatch Assessment and Plan Assessment: 1-patient with left upper lobe pneumonia with a sputum culture has been finalized as MRSA , subsequent worsening of her clinical condition and cardiac arrest and status post resuscitation and intubation with a complaint of possible aspiration pneumonia, s/p bronchoscopy----bronchoscopy cultures grew Inga only--- patient could not be extubated hence scheduled for trach and PEG today, the patient did have overall worsening of respiratory status yesterday with worsening of the x-ray finding possible fluid treated for the patient has been dialyzed underlying worsening pneumonia less likely but not entirely excluded blood culture has been repeated those will be followed 2-patient is on SSRI contraindicating the use of Zyvox 3-patient with significant diarrhea, antibiotic associated ,stool for C. diff is negative , diarrhea slightly decreased in amount 4- leukocytosis more likely secondary steroids have shown a downward trend down to 18,000 from a 20,000 yesterday. (1) Sepsis Current Visit: Yes Status: Acute Code(s): A41.9 - SEPSIS, UNSPECIFIED ORGANISM SNOMED Code(s): 13392970 (2) Nosocomial pneumonia Current Visit: Yes Status: Acute Code(s): J18.9 - PNEUMONIA, UNSPECIFIED ORGANISM; Y95 - NOSOCOMIAL CONDITION SNOMED Code(s): 771835694 Plan: 1- the patient will be continued on Teflaro 200 mg twice along with Flagyl 500 every 8 hours 2-continue Diflucan for possible oropharyngeal candidiasis Clinical condition and repeat cultures will be followed and antibiotic adjusted further if needed Family the bedside questions were answered Overall prognosis guarded Time with Patient: Less than 30
--- NOTE | 2018-08-14 15:58 | P.PN ---
Subjective Progress Note Date: 08/14/18 Patient apparently has rough last night. She developed respiratory distress. Required initiation of propofol. At present patient is sedated on propofol 50 g. However when patient is off propofol, according to nursing report, patient follows directions, opens eyes and follows commands. Still very weak all over. No new neurological issues. Patient had an EEG performed, which revealed background slowing of moderate degree, suggestive of toxic metabolic encephalopathy or related to diffuse structural brain abnormality. No epileptiform activity was seen. Computed tomography scan of head showed no acute process. Small vessel disease. Some lacunar strokes in the basal ganglia bilaterally. Patient had undergone hemodialysis. Objective - Vital Signs Vital signs: Vital Signs Temp 98.1 F 08/14/18 12:00 Pulse 62 08/14/18 15:51 Resp 24 08/14/18 15:00 BP 104/67 08/14/18 15:00 Pulse Ox 97 08/14/18 15:00 Intake & Output 08/13/18 08/14/18 08/14/18 18:59 06:59 18:59 Intake Total 412 044.816 4347.167 Output Total 315 445 620 Balance 97 145.946 819.167 Weight 97.4 kg Intake: IV 412 196 400 Ceftaroline Fosamil 200 100 mg In Sodium Chloride 0.9 % 50 ml @ 100 mls/hr IVPB Q12H [facility] Rx#:[id number] Ceftaroline Fosamil 200 100 mg In Sodium Chloride 0.9 % 50 ml @ 100 mls/hr IVPB Q12HR [facility] Rx#:[id number] Fluconazole in NaCl,Iso- 50 10 50 Osm 100 mg In Saline 1 50ml.bag @ 50 mls/hr IVPB DAILY [facility] Rx#:[id number] Furosemide 100 mg In 60 Sodium Chloride 0.9% 90 ml @ 10 MG/HR 10 mls/hr IV .Q10H [facility] Rx#: [id number] KVO 120 120 100 Norepinephrine 32 mg In 30 Sodium Chloride 0.9% 218 ml @ 0.05 MCG/KG/MIN 2. 313 mls/hr IV .Q24H [facility] Rx#:[id number] Normal Saline Pressure 42 66 60 bag Potassium Chloride 20 meq 100 In Water For Injection 1 100ml.bag @ 50 mls/hr IVPB ONCE STA Rx#: [id number] Intake, IV Titration 164.946 293.167 Amount Furosemide 100 mg In 79 93.167 Sodium Chloride 0.9% 90 ml @ 10 MG/HR 10 mls/hr IV .Q10H [facility] Rx#: [id number] Norepinephrine 32 mg In 4.025 Sodium Chloride 0.9% 218 ml @ 0.05 MCG/KG/MIN 2. 313 mls/hr IV .Q24H [facility] Rx#:[id number] Propofol 1,000 mg In 81.921 200 Empty Bag 1 bag @ Titrate IV .Q0M [facility] Rx#: [id number] Tube Feeding 140 248 Blood Product 348 Rc Pheresis As-3 Unit 310 [id number] Other 90 150 Output: Urine 315 445 620 Other: Voiding Method Indwelling Catheter Indwelling Catheter Indwelling Catheter # Voids 2 2 2 ABP, PAP, CO, CI - Last Documented Arterial Blood Pressure 132/71 - Exam Patient is on mechanical ventilation, has tracheostomy, , more sedated today from medication. Slightly more encephalopathic. Still opens her eyes, turns her head to the side. Follows some commands but appears more groggy from the medication.. Patient has significant peripheral edema bilaterally, better than yesterday. Plantars are probably upgoing. - Labs CBC & Chem 7: 08/14/18 05:27 08/14/18 05:27 Labs: Abnormal Lab Results - Last 24 Hours (Table) 08/11/18 08/13/18 08/13/18 Range/Units 07:00 16:45 23:44 WBC (3.8-10.6) k/uL RBC (3.80-5.40) m/uL Hgb (11.4-16.0) gm/dL Hct (34.0-46.0) % RDW (11.5-15.5) % Plt Count (150-450) k/uL ABG pO2 (83-108) mmHg ABG HCO3 (21-25) mmol/L ABG Total CO2 (19-24) mmol/L BUN (7-17) mg/dL Creatinine (0.52-1.04) mg/dL Glucose (74-99) mg/dL POC Glucose (mg/dL) 120 H 121 H (75-99) mg/dL Calcium (8.4-10.2) mg/dL Phosphorus (2.5-4.5) mg/dL Stool Occult Blood (Negative) Crossmatch See Detail 08/14/18 08/14/18 08/14/18 Range/Units 05:24 05:27 05:27 WBC 18.6 H (3.8-10.6) k/uL RBC 2.14 L (3.80-5.40) m/uL Hgb 6.1 L* (11.4-16.0) gm/dL Hct 19.5 L* (34.0-46.0) % RDW 17.9 H (11.5-15.5) % Plt Count 140 L (150-450) k/uL ABG pO2 (83-108) mmHg ABG HCO3 (21-25) mmol/L ABG Total CO2 (19-24) mmol/L BUN 59 H (7-17) mg/dL Creatinine 2.78 H (0.52-1.04) mg/dL Glucose 123 H (74-99) mg/dL POC Glucose (mg/dL) 140 H (75-99) mg/dL Calcium 8.0 L (8.4-10.2) mg/dL Phosphorus 6.7 H (2.5-4.5) mg/dL Stool Occult Blood (Negative) Crossmatch 08/14/18 08/14/18 08/14/18 Range/Units 07:28 10:19 11:38 WBC (3.8-10.6) k/uL RBC (3.80-5.40) m/uL Hgb (11.4-16.0) gm/dL Hct (34.0-46.0) % RDW (11.5-15.5) % Plt Count (150-450) k/uL ABG pO2 74 L (83-108) mmHg ABG HCO3 27 H (21-25) mmol/L ABG Total CO2 28 H (19-24) mmol/L BUN (7-17) mg/dL Creatinine (0.52-1.04) mg/dL Glucose (74-99) mg/dL POC Glucose (mg/dL) 140 H (75-99) mg/dL Calcium (8.4-10.2) mg/dL Phosphorus (2.5-4.5) mg/dL Stool Occult Blood Positive H (Negative) Crossmatch Assessment and Plan Assessment: * Altered mental status, likely related to toxic metabolic encephalopathy. Patient's mentation much improved today. Patient following commands. * Recent history of cardiac arrest on 08/05/2018. * Generalized weakness of arms and legs, probably related to encephalopathy. Patient started to move her hands and feet slightly. Need to continue to brianne ch. * Pneumonia, with recent history of septic shock. * Ventilator-dependent respiratory failure. * Acute renal failure, worsening, now getting hemodialysis * Anemia with hemoglobin 7.1 * Recent history of stroke TIA. * Coronary artery disease with history of cardiac stenting. * X tobacco use. * Possible underlying mild cognitive impairment Plan: Patient's mental status has remarkably improved. Hopefully she will continue to improve on a daily basis. Continue treatment for various toxic metabolic conditions. Patient on hemodialysis, which perhaps is helping with mentation. Continue dual antiplatelet medication including aspirin 81 mg and Plavix 75 mg EEG showed moderate encephalopathy. Hemoglobin A1c 5.3. Avoid opiates or other narcotics/sedatives. Treatment of other medical conditions as per internal medicine/critical care. We will follow clinically. Please call me at [phone] for any concerns. Formal Neurology coverage not available for the next week.
--- NOTE | 2018-08-14 16:59 | P.PN ---
Subjective Progress Note Date: 08/14/18 (delayed charting seen at 0915) Principal diagnosis: Confusion Patient is a 63-year-old female with a past medical history of COPD, DVT, GERD, hypertension, dyslipidemia, and asthma who presented with confusion. In the ER she underwent an extensive evaluation. CT of the head was unremarkable. She was found to have a right upper lobe pneumonia and she was started on antibiotics. Infectious disease was consulted who recommended maintaining antibiotics. Pulmonary was consulted. Sputum culture was obtained which showed probable MRSA. Zosyn was stopped and she was started on Teflaro due to inability to take Zyvox because of SSRI. Nephrology was consulted due to acute kidney injury. They stopped her Lasix, lisinopril, and Toradol. On the morning of 08/06 she went into respiratory distress necessitating intubation, she then had a PEA arrests and total down time was less than 10 minutes. She was moved to the ICU and had a central line placed and was started on norepinephrine. She underwent bronchoscopy with bronchial alveolar lavage. Chest x-ray showed pulmonary infiltrate. Clindamycin was initiated. She had decreased renal function after her code. She was started on a bicarb drip. She was found to have increased PA pressures and new pulmonary hypertension and the concern was for possible pulmonary embolism she was started on IV heparin. She had not made significant improvement in her renal function and was subsequently started on dialysis. She had 3 treatments of dialysis. Neurology was consulted who felt this was likely secondary to toxic metabolic encephalopathy but could have underlying anoxic encephalopathy. She had a trach and PEG placed on 08/12/18 and tolerated this well. She was starting to wake up after being taken off all sedatives on 08/13. However overnight on 08/14 she went into respiratory distress requiring propofol and to be placed back on the vent. She also had a drop in hemoglobin and required 1 unit of pRBC. She again had dialysis on 08/14. Patient seen and examined at bedside with present. Sedated on propofol. Events overnight as listed above. Objective - Vital Signs Vital signs: Vital Signs Temp 98.1 F 08/14/18 12:00 Pulse 59 L 08/14/18 16:00 Resp 24 08/14/18 16:00 BP 104/67 08/14/18 15:00 Pulse Ox 97 08/14/18 15:00 Intake & Output 08/13/18 08/14/1819 18:59 06:59 18:59 Intake Total 412 808.019 1388.167 Output Total 315 445 620 Balance 97 145.946 819.167 Weight 97.4 kg Intake: IV 412 196 400 Ceftaroline Fosamil 200 100 mg In Sodium Chloride 0.9 % 50 ml @ 100 mls/hr IVPB Q12H [facility] Rx#:[id number] Ceftaroline Fosamil 200 100 mg In Sodium Chloride 0.9 % 50 ml @ 100 mls/hr IVPB Q12HR [facility] Rx#:[id number] Fluconazole in NaCl,Iso- 50 10 50 Osm 100 mg In Saline 1 50ml.bag @ 50 mls/hr IVPB DAILY [facility] Rx#:[id number] Furosemide 100 mg In 60 Sodium Chloride 0.9% 90 ml @ 10 MG/HR 10 mls/hr IV .Q10H [facility] Rx#: [id number] KVO 120 120 100 Norepinephrine 32 mg In 30 Sodium Chloride 0.9% 218 ml @ 0.05 MCG/KG/MIN 2. 313 mls/hr IV .Q24H [facility] Rx#:[id number] Normal Saline Pressure 42 66 60 bag Potassium Chloride 20 meq 100 In Water For Injection 1 100ml.bag @ 50 mls/hr IVPB ONCE STA Rx#: [id number] Intake, IV Titration 164.946 293.167 Amount Furosemide 100 mg In 79 93.167 Sodium Chloride 0.9% 90 ml @ 10 MG/HR 10 mls/hr IV .Q10H [facility] Rx#: [id number] Norepinephrine 32 mg In 4.025 Sodium Chloride 0.9% 218 ml @ 0.05 MCG/KG/MIN 2. 313 mls/hr IV .Q24H [facility] Rx#:[id number] Propofol 1,000 mg In 81.921 200 Empty Bag 1 bag @ Titrate IV .Q0M [facility] Rx#: [id number] Tube Feeding 140 248 Blood Product 348 Rc Pheresis As-3 Unit 310 [id number] Other 90 150 Output: Urine 315 445 620 Other: Voiding Method Indwelling Catheter Indwelling Catheter Indwelling Catheter # Voids 2 2 2 ABP, PAP, CO, CI - Last Documented Arterial Blood Pressure 132/71 - Exam General: Ill appearing, mild distress, appears at stated age Derm: warm, dry Head: atraumatic, normocephalic, symmetric Eyes: EOMI, no lid lag, anicteric sclera Mouth: no lip lesion, mucus membranes dry, trach in place without any signs of bleeding Cardiovascular: S1S2 reg, no murmur, positive posterior tibial pulse bilateral, Lungs: Coarse breath Sounds bilaterally, no rhonchi, no rales , no accessory muscle use, + vent Abdominal: soft, nontender to palpation, no guarding, no appreciable organomegaly, PEG in place without any signs of bleeding Ext: no gross muscle atrophy, diffuse anasarca, no contractures Neuro: + withdrawal to pain, breathing above vent Psych: sedated with propofol, not anxious - Labs CBC & Chem 7: 08/14/18 05:27 08/14/18 05: Labs: Abnormal Lab Results - Last 24 Hours (Table) 08/11/18 08/13/18 08/13/18 Range/Units 07:00 16:45 23:44 WBC (3.8-10.6) k/uL RBC (3.80-5.40) m/uL Hgb (11.4-16.0) gm/dL Hct (34.0-46.0) % RDW (11.5-15.5) % Plt Count (150-450) k/uL ABG pO2 (83-108) mmHg ABG HCO3 (21-25) mmol/L ABG Total CO2 (19-24) mmol/L BUN (7-17) mg/dL Creatinine (0.52-1.04) mg/dL Glucose (74-99) mg/dL POC Glucose (mg/dL) 120 H 121 H (75-99) mg/dL Calcium (8.4-10.2) mg/dL Phosphorus (2.5-4.5) mg/dL Stool Occult Blood (Negative) Crossmatch See Detail 08/14/18 08/14/18 08/14/18 Range/Units 05:24 05:27 05:27 WBC 18.6 H (3.8-10.6) k/uL RBC 2.14 L (3.80-5.40) m/uL Hgb 6.1 L* (11.4-16.0) gm/dL Hct 19.5 L* (34.0-46.0) % RDW 17.9 H (11.5-15.5) % Plt Count 140 L (150-450) k/uL ABG pO2 (83-108) mmHg ABG HCO3 (21-25) mmol/L ABG Total CO2 (19-24) mmol/L BUN 59 H (7-17) mg/dL Creatinine 2.78 H (0.52-1.04) mg/dL Glucose 123 H (74-99) mg/dL POC Glucose (mg/dL) 140 H (75-99) mg/dL Calcium 8.0 L (8.4-10.2) mg/dL Phosphorus 6.7 H (2.5-4.5) mg/dL Stool Occult Blood (Negative) Crossmatch 08/14/18 08/14/18 08/14/18 Range/Units 07:28 10:19 11:38 WBC (3.8-10.6) k/uL RBC (3.80-5.40) m/uL Hgb (11.4-16.0) gm/dL Hct (34.0-46.0) % RDW (11.5-15.5) % Plt Count (150-450) k/uL ABG pO2 74 L (83-108) mmHg ABG HCO3 27 H (21-25) mmol/L ABG Total CO2 28 H (19-24) mmol/L BUN (7-17) mg/dL Creatinine (0.52-1.04) mg/dL Glucose (74-99) mg/dL POC Glucose (mg/dL) 140 H (75-99) mg/dL Calcium (8.4-10.2) mg/dL Phosphorus (2.5-4.5) mg/dL Stool Occult Blood Positive H (Negative) Crossmatch Assessment and Plan Assessment: MRSA pneumonia, Acute hypoxic respiratory failure - worsening leukocytosis and respiratory distress on 08/14 -On Teflaro -Pulmonary hygiene -Infectious disease recommendations appreciated - on diflucan for possible candidal infection Antibiotic associate diarrhea - c diff negative - flagyl per ID - maintain fecal management system Anemia, multifactoral - s/p 1 unit pRBC -repeat CBC in AM Acute hypoxic respiratory failure -Status post tracheostomy -Vent management per pulmonary -On PhosLo Acute kidney injury requiring hemodialysis -Nephrology recommendations appreciated: HD today -Avoid additional nephrotoxic agents -Follow basic metabolic profile daily COPD with exacerbation -Scheduled DuoNeb's -When necessary bronchodilators -Solu-Medrol Hypertension, controlled -Follow blood pressures -No longer norepinephrine -Off Norvasc, metoprolol, and lisinopril Hypothyroidism -Continue with Synthroid therapy Chronic pain syndrome -Status post removal of pain pump -Percocet Severe pulmonary hypertension -Management per pulmonary Critical illness polyneuropathy -PT/OT evaluation -Likely will need LTAC History of closed head injury Aborted sudden cardiac with PEA Septic shock, resolved D/W family that if no improvement soon we may need to consider comfort care DVT prophylaxis: heparin Discussed with: Daughter, , nursing Anticipated discharge: 3-[address]: LTAC A total of 45 minutes was spent on the care of this complex patient more than 50% of the time was spent in counseling and care coordination.
[2018-08-14 17:14] LABS: Glucose,Whole Blood 175 mg/dL (75-99)
[2018-08-14 18:51] LABS: Anisocytosis Slight; HCT 21.8 % (34.0-46.0); HGB 7.2 gm/dL (11.4-16.0); Hypochromasia Slight; MCH 29.4 pg (25.0-35.0); MCV 88.9 fL (80.0-100.0); Mean Platelet Volume 8.8; Platelet Count 134 k/uL (150-450); Poikilocytosis Slight; RBC 2.46 m/uL (3.80-5.40); WBC 16.3 k/uL (3.8-10.6)
[2018-08-14] MEDS: AMITRIPTYLINE HCL 50 MG TAB PO SCH (20:53)
[2018-08-14] MEDS: MONTELUKAST 10 MG TAB PO SCH (20:53)
[2018-08-14] MEDS: QUEtiapine 200 MG TAB PO SCH (20:53)
[2018-08-14] MEDS: DOCUSATE 100 MG CAP PO SCH (20:53)
--- NOTE | 2018-08-14 21:00 | XR ---
EXAMINATION TYPE: XR chest 1V portable DATE OF EXAM: 08/14/2018 COMPARISON: Today HISTORY: Subcutaneous emphysema TECHNIQUE: Single frontal view of the chest is obtained. FINDINGS: There is tracheostomy tube. There is diffuse pulmonary airspace edema. Heart is enlarged. There are chest leads. I see no definite soft tissue air. There is no sign of pneumothorax. There is left-sided central venous catheter with the tip in the superior vena cava. IMPRESSION: Severe pulmonary edema not significantly different than exam earlier today. This could r elate to congestive heart failure or RDS. No pneumothorax. No soft tissue air seen.
[2018-08-14] MEDS: IPRATROPIUM-ALBUTEROL 3 ML NEB INHALATION PRN (23:15)
[2018-08-14 23:25] LABS: Glucose,Whole Blood 165 mg/dL (75-99)
[2018-08-15] MEDS: NOREPINEPHRINE 32 MG in SODIUM CHLORIDE 0.9% 218 ML IV SCH (01:43)
[2018-08-15] MEDS: IPRATROPIUM-ALBUTEROL 3 ML NEB INHALATION PRN (03:20)
[2018-08-15] MEDS: fentaNYL (PF) 1,000 MCG in SODIUM CHLORIDE 0.9% 80 ML IV SCH (03:41)
[2018-08-15] MEDS: PROPOFOL 1,000 MG in EMPTY BAG 1 BAG IV SCH ×5 (03:42→23:43)
[2018-08-15] MEDS: FUROSEMIDE 100 MG in SODIUM CHLORIDE 0.9% 90 ML IV SCH ×3 (04:55→23:06)
[2018-08-15 05:11] LABS: ABG Base Excess 1.2 mmol/L; ABG HCO3 26 mmol/L (21-25); ABG Oxygen Saturation 97.2 % (94-97); ABG PCO2 40 mmHg (35-45); ABG PH 7.42 (7.35-7.45); ABG PO2 88 mmHg (83-108); ABG TCO2 27 mmol/L (19-24)
[2018-08-15 05:19] LABS: Glucose,Whole Blood 170 mg/dL (75-99)
[2018-08-15 05:43] LABS: Anisocytosis Slight; Hypochromasia Slight; MCH 30.8 pg (25.0-35.0); MCHC 34.6 g/dL (31.0-37.0); Mean Platelet Volume 8.9; Platelet Count 138 k/uL (150-450); Poikilocytosis Slight; RBC 2.23 m/uL (3.80-5.40); RDW 17.2 % (11.5-15.5); WBC 15.7 k/uL (3.8-10.6)
[2018-08-15 05:47] LABS: Calcium 7.8 mg/dL (8.4-10.2); Phosphorus 7.6 mg/dL (2.5-4.5); Potassium 4.1 mmol/L (3.5-5.1)
[2018-08-15 05:53] LABS: HGB 6.9 gm/dL (11.4-16.0)
[2018-08-15 05:54] LABS: HCT 19.8 % (34.0-46.0)
[2018-08-15] MEDS: methylPREDNISolone SOD SUCCI 125 MG/2 ML VIAL IV SCH ×4 (06:02→23:11)
[2018-08-15] MEDS: CALCIUM ACETATE 667 MG CAP PO SCH ×3 (06:03→17:07)
[2018-08-15] MEDS: LEVOTHYROXINE 75 MCG TAB PEG/G-TUBE SCH (06:03)
[2018-08-15] MEDS: INSULIN ASPART (NovoLOG) 100 UNIT/ML VIAL SQ SCH ×4 (06:03→23:51)
[2018-08-15] MEDS: IPRATROPIUM-ALBUTEROL 3 ML NEB INHALATION SCH ×4 (07:04→19:55)
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
[2018-08-15] MEDS: FLUCONAZOLE IN NACL,ISO-OSM 100 MG in SALINE 1 50ML.BAG IVPB SCH (08:10)
[2018-08-15] MEDS: ASPIRIN 81 MG PO SCH (08:10)
[2018-08-15] MEDS: HEPARIN SODIUM,PORCINE 5,000 UNIT/ML 1 ML VIAL SQ SCH ×3 (08:10→20:21)
[2018-08-15] MEDS: CLOPIDOGREL 75 MG TAB PO SCH (08:10)
[2018-08-15] MEDS: CHLORHEXIDINE GLUCONATE 15 ML CUP MUCOUS MEM SCH ×2 (08:10→20:08)
[2018-08-15] MEDS: metroNIDAZOLE 500 MG TAB OG-TUBE SCH ×3 (08:10→20:07)
[2018-08-15] MEDS: PANTOPRAZOLE 40 MG/10 ML VIAL IVP SCH ×2 (08:11→20:21)
[2018-08-15] MEDS: SERTRALINE 100 MG TAB PO SCH (08:11)
[2018-08-15 08:39] LABS: ABG Base Excess 1.3 mmol/L; ABG HCO3 25 mmol/L (21-25); ABG Oxygen Saturation 96.4 % (94-97); ABG PCO2 37 mmHg (35-45); ABG PH 7.44 (7.35-7.45); ABG PO2 81 mmHg (83-108); ABG TCO2 27 mmol/L (19-24)
--- NOTE | 2018-08-15 09:01 | PN ---
PROGRESS NOTE Mrs. Nick is a 63-year-old female who presented with symptoms of worsening dyspnea and pneumonia. She was intubated initially. She has a known history of coronary artery disease, status post PCI of her RCA. She has a PEG tube and a tracheostomy at this time. The night before last she was requiring placement back on the ventilator. She appears to be awake and alert this morning. Her urine output is stable. She has not received dialysis and we are awaiting the input of Dr. Schmitt. Hemodynamically, she is stable. She is on no pressor. She is in sinus mechanism. Her echocardiogram during this admission showed an ejection fraction of 50% to 55% with moderate severe tricuspid regurgitation and moderate severe pulmonary hypertension. She continues to be at this point on aspirin once a day, Plavix 75 mg daily, Lasix IV drip at 10 mg an hour. PHYSICAL EXAMINATION: Blood pressure 111/50 with the heart rate in 60s. LUNGS: Few crackles at the bases. HEART: Regular rate and rhythm. S1, S2. No S3. No rub appreciated. With a systolic murmur. ABDOMEN: Soft. PEG tube in place. EXTREMITIES: With a 1+ edema bilaterally. LAB DATA: Lab data revealed a hemoglobin of 6.9, white blood cell 15.7. BUN and creatinine 78 and 3.15. IMPRESSION: 1. Respiratory failure with pneumonia, has been followed by Dr. Iniguez. 2. Respiratory failure, status post tracheostomy. 3. Acute renal injury. 4. History of coronary artery disease, stable. 5. Chronic obstructive lung disease. 6. Hypertension. 7. History of cerebrovascular accident. 8. Pulmonary hypertension. RECOMMENDATION: From the cardiac standpoint, we will continue present therapy with supportive care. She is stable from the cardiac standpoint at this point and will await the input of the Nephrology Service regarding transfusion. MMODL / IJN: [id number] /
[2018-08-15] MEDS ORDERED: LIDOCAINE 1% INJ 10MG/ML (20 ML MDV) SQ ONE (10:34)
[2018-08-15] MEDS: FOLIC ACID 1 MG TAB PO SCH (10:58)
--- NOTE | 2018-08-15 10:58 | P.PN ---
Subjective Progress Note Date: 08/15/18 CHIEF COMPLAINT: trach and peg HISTORY OF PRESENT ILLNESS: Patient is s/p trach and PEG placement. Per nursing, patient is tolerating tube feedings well. Remains on mechanical ventilation and sedation. at bedside. Denies further questions or concerns regarding trach and peg. PHYSICAL EXAM: VITAL SIGNS: Reviewed. GENERAL: Well-developed in no acute distress-on ventilator. HEENT: Trach intact with no bleeding noted. No sclera icterus. Extraocular movements grossly intact. Moist buccal mucosa. Head is atraumatic, normocephali c. ABDOMEN: Soft. Nondistended. Nontender. PEG intact. NEUROLOGIC: Sedated on mechanical ventilator ASSESSMENT: 1. Acute hypoxic respiratory failure PLAN: Patient is tolerating tube feedings. No issues with trach. We will sign off. Please reconsult if needed. Nurse practitioner note has been reviewed by physician. Signing provider agrees with the documented findings, assessment, and plan of care. Objective - Vital Signs Vital signs: Vital Signs Temp 97.8 F 08/15/18 08:00 Pulse 64 08/15/18 10:00 Resp 40 H 08/15/18 10:00 BP 91/60 08/15/18 04:00 Pulse Ox 96 08/15/18 10:00 Intake & Output 08/14/18 08/15/18 08/15/18 18:59 06:59 18:59 Intake Total 1643.728 3495.889 402.207 Output Total 720 660 190 Balance 947.167 540.889 212.207 Weight 97.4 kg 97.4 kg Intake: IV 452 252 98 Ceftaroline Fosamil 200 100 50 mg In Sodium Chloride 0.9 % 50 ml @ 100 mls/hr IVPB Q12H [facility] Rx#:[id number] Fluconazole in NaCl,Iso- 50 50 Osm 100 mg In Saline 1 50ml.bag @ 50 mls/hr IVPB DAILY [facility] Rx#:[id number] Furosemide 100 mg In 80 10 Sodium Chloride 0.9% 90 ml @ 10 MG/HR 10 mls/hr IV .Q10H [facility] Rx#: [id number] KVO 120 120 30 Norepinephrine 32 mg In 30 Sodium Chloride 0.9% 218 ml @ 0.05 MCG/KG/MIN 2. 313 mls/hr IV .Q24H [facility] Rx#:[id number] Normal Saline Pressure 72 72 18 bag Intake, IV Titration 393.167 364.889 160.207 Amount Furosemide 100 mg In 93.167 180.5 Sodium Chloride 0.9% 90 ml @ 10 MG/HR 10 mls/hr IV .Q10H [facility] Rx#: [id number] Propofol 1,000 mg In 300 184.389 160.207 Empty Bag 1 bag @ Titrate IV .Q0M [facility] Rx#: [id number] Tube Feeding 324 494 114 Blood Product 348 Rc Pheresis As-3 Unit 310 [id number] Other 150 90 30 Output: Urine 720 660 190 Other: Voiding Method Indwelling Catheter Indwelling Catheter Indwelling Catheter # Voids 2 2 ABP, PAP, CO, CI - Last Documented Arterial Blood Pressure 113/58 - Labs CBC & Chem 7: 08/15/18 05:15 08/15/18 05:15 Labs: Abnormal Lab Results - Last 24 Hours (Table) 08/11/18 08/14/18 08/14/18 Range/Units 07:00 10:19 11:38 WBC (3.8-10.6) k/uL RBC (3.80-5.40) m/uL Hgb (11.4-16.0) gm/dL Hct (34.0-46.0) % RDW (11.5-15.5) % Plt Count (150-450) k/uL ABG pO2 (83-108) mmHg ABG HCO3 (21-25) mmol/L ABG Total CO2 (19-24) mmol/L ABG O2 Saturation (94-97) % BUN (7-17) mg/dL Creatinine (0.52-1.04) mg/dL Glucose (74-99) mg/dL POC Glucose (mg/dL) 140 H (75-99) mg/dL Calcium (8.4-10.2) mg/dL Phosphorus (2.5-4.5) mg/dL Stool Occult Blood Positive H (Negative) Crossmatch See Detail 08/14/18 08/14/18 08/14/18 Range/Units 16:59 18:33 23:22 WBC 16.3 H (3.8-10.6) k/uL RBC 2.46 L (3.80-5.40) m/uL Hgb 7.2 L (11.4-16.0) gm/dL Hct 21.8 L (34.0-46.0) % RDW 17.0 H (11.5-15.5) % Plt Count 134 L (150-450) k/uL ABG pO2 (83-108) mmHg ABG HCO3 (21-25) mmol/L ABG Total CO2 (19-24) mmol/L ABG O2 Saturation (94-97) % BUN (7-17) mg/dL Creatinine (0.52-1.04) mg/dL Glucose (74-99) mg/dL POC Glucose (mg/dL) 175 H 165 H (75-99) mg/dL Calcium (8.4-10.2) mg/dL Phosphorus (2.5-4.5) mg/dL Stool Occult Blood (Negative) Crossmatch 08/15/18 08/15/18 08/15/18 Range/Units 05:09 05:15 05:15 WBC 15.7 H (3.8-10.6) k/uL RBC 2.23 L (3.80-5.40) m/uL Hgb 6.9 L* (11.4-16.0) gm/dL Hct 19.8 L* (34.0-46.0) % RDW 17.2 H (11.5-15.5) % Plt Count 138 L (150-450) k/uL ABG pO2 (83-108) mmHg ABG HCO3 26 H (21-25) mmol/L ABG Total CO2 27 H (19-24) mmol/L ABG O2 Saturation 97.2 H (94-97) % BUN 78 H (7-17) mg/dL Creatinine 3.15 H (0.52-1.04) mg/dL Glucose 153 H (74-99) mg/dL POC Glucose (mg/dL) (75-99) mg/dL Calcium 7.8 L (8.4-10.2) mg/dL Phosphorus 7.6 H (2.5-4.5) mg/dL Stool Occult Blood (Negative) Crossmatch 08/15/18 08/15/18 Range/Units 05:16 08:35 WBC (3.8-10.6) k/uL RBC (3.80-5.40) m/uL Hgb (11.4-16.0) gm/dL Hct (34.0-46.0) % RDW (11.5-15.5) % Plt Count (150-450) k/uL ABG pO2 81 L (83-108) mmHg ABG HCO3 (21-25) mmol/L ABG Total CO2 27 H (19-24) mmol/L ABG O2 Saturation (94-97) % BUN (7-17) mg/dL Creatinine (0.52-1.04) mg/dL Glucose (74-99) mg/dL POC Glucose (mg/dL) 170 H (75-99) mg/dL Calcium (8.4-10.2) mg/dL Phosphorus (2.5-4.5) mg/dL Stool Occult Blood (Negative) Crossmatch
--- NOTE | 2018-08-15 11:02 | XR ---
EXAMINATION TYPE: XR chest 1V portable DATE OF EXAM: 08/15/2018 Comparison: 08/14/2018 Clinical History: 63-year-old female PICC PLACEMENT Findings: Tracheostomy cannula. Heart mildly enlarged. Left subclavian CVC tip at the mid SVC level. Right PICC tip at the upper right atrium. Diffuse interstitial and patchy airspace opacities remain w ith small effusions. Left midlung nodularity. Impression: 1. Right PICC tip in the upper right atrium. 2. Continued diffuse interstitial and multifocal patchy airspace disease. 3. Left midlung nodularity. Following successful treatment and resolution of the patient's acute pare nchymal process, contrast-enhanced CT chest recommended to assess for any underlying pulmonary nodule s.
--- NOTE | 2018-08-15 11:52 | PN ---
PROGRESS NOTE Patient is seen for followup for acute kidney injury. This morning, patient is seen on the vent. She is sedated. She had dialysis with only ultrafiltration done yesterday of about 2 L. The patient remains on Lasix drip. Her urine output is at about 40 to 50 mL an hour. She is in negative balance over 24 hours. PHYSICAL EXAMINATION: On examination this morning, patient is sedated. Blood pressure 108/54, heart rate 64 per minute. She is afebrile. FiO2 at 40%. EXAMINATION OF THE HEART: S1, S2. EXAMINATION OF THE LUNGS: Bilateral breath sounds are heard. Abdomen is soft, nontender. Examination of the lower extremities shows edema 2+ bilaterally. CURTAIN INSPECTOR exam cannot be performed. LABS: Labs show hemoglobin 6.9, white cell count 15.7, sodium 138, potassium 4.1, BUN 78, serum creatinine 3.15. ASSESSMENT: 1. Acute kidney injury, acute tubular necrosis, currently nonoliguric, maintained on Lasix drip, which I will continue. Given the persistent volume overload, I will arrange for hemodialysis again today. We will plan for 2 to 2.5 L of ultrafiltration with dialysis. I will also consult Vascular Surgery to place a PermCath instead of the temporary femoral Ap catheter that she currently has. We will continue to monitor for recovery of renal function. Patient has had good urine output. 2. Anemia, etiology unclear. Stool for occult blood is positive, although no active bleeding is noted. Hemoglobin has dropped again to 6.9. We will transfuse another unit of packed RBCs today with her dialysis. I will also add Aranesp. 3. Severe sepsis and septic shock from methicillin-resistant Staphylococcus aureus pneumonia and sputum has also grown Inga. 4. Metabolic acidosis on initial admission, currently resolved. 5. Acute hypoxic respiratory failure, currently on the vent, status post trach and PEG. PLAN: Transfuse 1 unit packed RBCs. Repeat hemodialysis today. Continue with the Lasix drip for now. MMODL / IJN: [id number] /
[2018-08-15] MEDS: SODIUM CHLORIDE 0.9% IVPB SCH ×2 (12:37→23:11)
[2018-08-15] MEDS: CEFTAROLINE FOSAMIL IVPB SCH ×2 (12:37→23:11)
[2018-08-15] MEDS: DARBEPOETIN ALFA 40 MCG/0.4 ML SYRINGE SQ SCH (12:37)
[2018-08-15 13:10] LABS: Glucose,Whole Blood 133 mg/dL (75-99)
--- NOTE | 2018-08-15 13:13 | WCPN ---
[facility] - PROGRESS NOTE Patient has acute chronic renal failure. Patient dialysis through right femoral approach. Patient had a trach and I was consulted for placement of permanent dialysis catheter. PLAN: We will place a permanent dialysis catheter right jugular vein. Risks and complications discussed. Keep the patient n.p.o. KARIN / SURESH: [id number] /
--- NOTE | 2018-08-15 13:56 | IR ---
PICC LINE PLACEMENT: HISTORY: Infection requiring long-term antibiotic therapy PROCEDURE: Ultrasound guidance of PICC line placement. COMPLICATIONS: None ANESTHESIA: 1. 1% Lidocaine locally. FINDINGS/TECHNIQUE: The procedure was explained to the patient. The risks, complications, benefits and alternatives were discussed and any questions were answered. Informed consent was obtained. The patient was placed supine on the fluoroscopic table and prepped and draped in the usual sterile fash ion. Utilizing a 21 gauge needle and sonographic guidance, access in the right basilic vein was ach ieved and there is placement of a 0.018 guidewire. The vein is patent. A 5-F. sheath was placed ove r the guidewire. The guidewire and dilator were removed and a 5-F. Double lumen PICC line was placed through the sheath with the chest x-ray confirming the tip at the level of the SVC. The sheath was removed, the catheter was flushed and sutured into position. The patient was stable throughout the p rocedure and remained stable upon discharge from the Department of Radiology. The vein puncture was patent under ultrasound. A burgess scale image was obtained to document patency of the vein punctured. All elements of the maximal barrier technique were utilized. IMPRESSION: 1. Successful PICC line placement under ultrasound performed bedside within the ICU.
[2018-08-15] MEDS ORDERED: LIDOCAINE 1% 20 ML VIAL (10MG/ML) FOR IV START INTRADERMA PRN (15:28)
[2018-08-15] MEDS ORDERED: LACTATED RINGERS 1,000 ML IV SCH (15:28)
[2018-08-15 18:47] LABS: Glucose,Whole Blood 117 mg/dL (75-99)
--- NOTE | 2018-08-15 19:11 | P.PN ---
Subjective Progress Note Date: 08/15/18 (delayed charting seen at 0930) Principal diagnosis: Confusion Patient is a 63-year-old female with a past medical history of COPD, DVT, GERD, hypertension, dyslipidemia, and asthma who presented with confusion. In the ER she underwent an extensive evaluation. CT of the head was unremarkable. She was found to have a right upper lobe pneumonia and she was started on antibiotics. Infectious disease was consulted who recommended maintaining antibiotics. Pulmonary was consulted. Sputum culture was obtained which showed probable MRSA. Zosyn was stopped and she was started on Teflaro due to inability to take Zyvox because of SSRI. Nephrology was consulted due to acute kidney injury. They stopped her Lasix, lisinopril, and Toradol. On the morning of 08/06 she went into respiratory distress necessitating intubation, she then had a PEA arrests and total down time was less than 10 minutes. She was moved to the ICU and had a central line placed and was started on norepinephrine. She underwent bronchoscopy with bronchial alveolar lavage. Chest x-ray showed pulmonary infiltrate. Clindamycin was initiated. She had decreased renal function after her code. She was started on a bicarb drip. She was found to have increased PA pressures and new pulmonary hypertension and the concern was for possible pulmonary embolism she was started on IV heparin. She had not made significant improvement in her renal function and was subsequently started on dialysis. She had 3 treatments of dialysis. Neurology was consulted who felt this was likely secondary to toxic metabolic encephalopathy but could have underlying anoxic encephalopathy. She had a trach and PEG placed on 08/12/18 and tolerated this well. She was starting to wake up after being taken off all sedatives on 08/13. However overnight on 08/14 she went into respiratory distress requiring propofol and to be placed back on the vent. She also had a drop in hemoglobin and required 1 unit of pRBC. She again had dialysis on 08/14. Patient seen and examined at bedside. Sedated on vent. Per nursing no acute events overnight. Discussed with and daughter at bedside. Plan is to hopefully transfer to LTAC. She will need a permanent dialysis catheter. She already has a trach and PEG in place. 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 Spent time discussing with and daughter that it is important to respect patients wishes. Objective - Vital Signs Vital signs: Vital Signs Temp 97.9 F 08/15/18 17:02 Pulse 64 08/15/18 18:00 Resp 40 H 08/15/18 18:00 BP 135/70 08/15/18 17:02 Pulse Ox 97 08/15/18 18:00 Intake & Output 08/14/18 08/15/18 08/15/18 18:59 06:59 18:59 Intake Total 2130.733 6303.889 1262.000 Output Total 927 190 4419 Balance 947.167 540.889 -1778.000 Weight 97.4 kg 97.4 kg Intake: IV 452 252 260 Ceftaroline Fosamil 200 100 50 50 mg In Sodium Chloride 0.9 % 50 ml @ 100 mls/hr IVPB Q12H [facility] Rx#:[id number] Fluconazole in NaCl,Iso- 50 50 Osm 100 mg In Saline 1 50ml.bag @ 50 mls/hr IVPB DAILY [facility] Rx#:[id number] Furosemide 100 mg In 80 10 Sodium Chloride 0.9% 90 ml @ 10 MG/HR 10 mls/hr IV .Q10H [facility] Rx#: [id number] KVO 120 120 100 Norepinephrine 32 mg In 30 Sodium Chloride 0.9% 218 ml @ 0.05 MCG/KG/MIN 2. 313 mls/hr IV .Q24H [facility] Rx#:[id number] Normal Saline Pressure 72 72 60 bag Intake, IV Titration 393.167 364.889 300.000 Amount Furosemide 100 mg In 93.167 180.5 100 Sodium Chloride 0.9% 90 ml @ 10 MG/HR 10 mls/hr IV .Q10H [facility] Rx#: [id number] Propofol 1,000 mg In 300 184.389 200.000 Empty Bag 1 bag @ Titrate IV .Q0M [facility] Rx#: [id number] Tube Feeding 324 494 332 Blood Product 348 310 Rc Pheresis As-3 Unit 310 [id number] Rc Pheresis As-3 Unit 310 [id number] Other 150 90 60 Output: Urine 720 660 540 Hemodialysis 2500 Other: Voiding Method Indwelling Catheter Indwelling Catheter Indwelling Catheter # Voids 2 2 ABP, PAP, CO, CI - Last Documented Arterial Blood Pressure 131/67 - Exam General: Ill appearing, no distress, appears at stated age Derm: warm, dry Head: atraumatic, normocephalic, symmetric Eyes: EOMI, no lid lag, anicteric sclera Mouth: no lip lesion, mucus membranes dry, trach in place without any signs of bleeding Cardiovascular: S1S2 reg, no murmur, positive posterior tibial pulse bilateral, Lungs: Coarse breath Sounds bilaterally, no rhonchi, no rales , no accessory muscle use, + vent Abdominal: soft, nontender to palpation, no guarding, no appreciable organomegaly, PEG in place without any signs of bleeding Ext: no gross muscle atrophy, diffuse anasarca, no contractures Neuro: no withdrawal to pain, breathing above vent Psych: sedated with propofol, not anxious - Labs CBC & Chem 7: 08/15/18 05:15 08/15/18 05:15 Labs: Abnormal Lab Results - Last 24 Hours (Table) 08/14/18 08/14/18 08/15/18 Range/Units 18:33 23:22 05:09 WBC 16.3 H (3.8-10.6) k/uL RBC 2.46 L (3.80-5.40) m/uL Hgb 7.2 L (11.4-16.0) gm/dL Hct 21.8 L (34.0-46.0) % RDW 17.0 H (11.5-15.5) % Plt Count 134 L (150-450) k/uL ABG pO2 (83-108) mmHg ABG HCO3 26 H (21-25) mmol/L ABG Total CO2 27 H (19-24) mmol/L ABG O2 Saturation 97.2 H (94-97) % BUN (7-17) mg/dL Creatinine (0.52-1.04) mg/dL Glucose (74-99) mg/dL POC Glucose (mg/dL) 165 H (75-99) mg/dL Calcium (8.4-10.2) mg/dL Phosphorus (2.5-4.5) mg/dL Crossmatch 08/15/18 08/15/18 08/15/18 Range/Units 05:15 05:15 05:16 WBC 15.7 H (3.8-10.6) k/uL RBC 2.23 L (3.80-5.40) m/uL Hgb 6.9 L* (11.4-16.0) gm/dL Hct 19.8 L* (34.0-46.0) % RDW 17.2 H (11.5-15.5) % Plt Count 138 L (150-450) k/uL ABG pO2 (83-108) mmHg ABG HCO3 (21-25) mmol/L ABG Total CO2 (19-24) mmol/L ABG O2 Saturation (94-97) % BUN 78 H (7-17) mg/dL Creatinine 3.15 H (0.52-1.04) mg/dL Glucose 153 H (74-99) mg/dL POC Glucose (mg/dL) 170 H (75-99) mg/dL Calcium 7.8 L (8.4-10.2) mg/dL Phosphorus 7.6 H (2.5-4.5) mg/dL Crossmatch 08/15/18 08/15/18 08/15/18 Range/Units 08:35 10:15 12:33 WBC (3.8-10.6) k/uL RBC (3.80-5.40) m/uL Hgb (11.4-16.0) gm/dL Hct (34.0-46.0) % RDW (11.5-15.5) % Plt Count (150-450) k/uL ABG pO2 81 L (83-108) mmHg ABG HCO3 (21-25) mmol/L ABG Total CO2 27 H (19-24) mmol/L ABG O2 Saturation (94-97) % BUN (7-17) mg/dL Creatinine (0.52-1.04) mg/dL Glucose (74-99) mg/dL POC Glucose (mg/dL) 133 H (75-99) mg/dL Calcium (8.4-10.2) mg/dL Phosphorus (2.5-4.5) mg/dL Crossmatch See Detail Microbiology - Last 24 Hours (Table) 08/14/18 10:19 Blood Culture - Preliminary Blood No Growth after 24 hours Assessment and Plan Assessment: MRSA pneumonia, Acute hypoxic respiratory failure - worsening leukocytosis and respiratory distress on 08/14 -On Teflaro, fluconazole, and flagyl -Pulmonary hygiene -Infectious disease recommendations appreciated - on diflucan for possible candidal infection Antibiotic associate diarrhea - c diff negative - flagyl per ID - maintain fecal management system Anemia, multifactoral - suspect dilutional, + FOB, but no active bleeding - s/p 1 unit pRBC -repeat CBC in AM Acute hypoxic respiratory failure -Status post tracheostomy -Vent management per pulmonary -On PhosLo Acute kidney injury requiring hemodialysis -Nephrology recommendations appreciated: HD today, needs permanent cath -Avoid additional nephrotoxic agents -Follow basic metabolic profile daily COPD with exacerbation -Scheduled DuoNeb's -When necessary bronchodilators -Solu-Medrol Hypertension, controlled -Follow blood pressures -No longer norepinephrine -Off Norvasc, metoprolol, and lisinopril Hypothyroidism -Continue with Synthroid therapy Chronic pain syndrome -Status post removal of pain pump -Percocet Severe pulmonary hypertension -Management per pulmonary Critical illness polyneuropathy -PT/OT evaluation -Likely will need LTAC History of closed head injury Aborted sudden cardiac with PEA Septic shock, resolved DVT prophylaxis: heparin Discussed with: Daughter, , nursing Anticipated discharge: [address]: LTAC A total of 45 minutes was spent on the care of this complex patient more than 50% of the time was spent in counseling and care coordination.
[2018-08-15] MEDS: DOCUSATE 100 MG CAP PO SCH (19:58)
[2018-08-15] MEDS: AMITRIPTYLINE HCL 50 MG TAB PO SCH (20:07)
[2018-08-15] MEDS: QUEtiapine 200 MG TAB PO SCH (20:07)
[2018-08-15 20:15] LABS: Anisocytosis Slight; Basophils % (A) 0 %; Eosinophils % (A) 0 %; HCT 25.1 % (34.0-46.0); Lymphocytes # (A) 0.5 k/uL (1.0-4.8); Lymphocytes % (A) 3 %; MCH 28.3 pg (25.0-35.0); MCHC 32.1 g/dL (31.0-37.0); MCV 88.3 fL (80.0-100.0); Mean Platelet Volume 9.3; Monocytes # (A) 0.5 k/uL (0-1.0); Monocytes % (A) 3 %; Neutrophils # (A) 16.6 k/uL (1.3-7.7); Neutrophils % (A) 94 %; Platelet Count 133 k/uL (150-450); Poikilocytosis Slight; RBC 2.84 m/uL (3.80-5.40); RDW 17.1 % (11.5-15.5); WBC 17.8 k/uL (3.8-10.6)
[2018-08-16 00:01] LABS: Glucose,Whole Blood 109 mg/dL (75-99)
[2018-08-16] MEDS: NOREPINEPHRINE 32 MG in SODIUM CHLORIDE 0.9% 218 ML IV SCH (02:46)
[2018-08-16] MEDS: PROPOFOL 1,000 MG in EMPTY BAG 1 BAG IV SCH ×4 (03:25→23:03)
[2018-08-16 04:31] LABS: ABG Base Excess 4.2 mmol/L; ABG HCO3 27 mmol/L (21-25); ABG Oxygen Saturation 99.1 % (94-97); ABG PCO2 32 mmHg (35-45); ABG PH 7.54 (7.35-7.45); ABG PO2 114 mmHg (83-108); ABG TCO2 28 mmol/L (19-24)
[2018-08-16 05:51] LABS: Glucose,Whole Blood 138 mg/dL (75-99)
[2018-08-16 05:57] LABS: Anisocytosis Slight; HCT 24.1 % (34.0-46.0); HGB 7.8 gm/dL (11.4-16.0); MCH 28.9 pg (25.0-35.0); MCHC 32.2 g/dL (31.0-37.0); MCV 89.6 fL (80.0-100.0); Platelet Count 151 k/uL (150-450); Poikilocytosis Slight; RBC 2.69 m/uL (3.80-5.40); RDW 17.4 % (11.5-15.5); WBC 17.4 k/uL (3.8-10.6)
[2018-08-16 06:04] LABS: INR 1.2 (<1.2); Prothrombin Time 12.5 sec (9.0-12.0)
[2018-08-16 06:10] LABS: Calcium 7.5 mg/dL (8.4-10.2); Potassium 3.9 mmol/L (3.5-5.1)
[2018-08-16] MEDS: INSULIN ASPART (NovoLOG) 100 UNIT/ML VIAL SQ SCH ×3 (06:10→17:33)
[2018-08-16] MEDS: methylPREDNISolone SOD SUCCI 125 MG/2 ML VIAL IV SCH ×4 (06:10→23:01)
[2018-08-16] MEDS: CALCIUM ACETATE 667 MG CAP PO SCH ×3 (06:10→17:29)
[2018-08-16] MEDS: LEVOTHYROXINE 75 MCG TAB PEG/G-TUBE SCH (06:10)
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
[2018-08-16] MEDS: IPRATROPIUM-ALBUTEROL 3 ML NEB INHALATION SCH ×4 (07:33→19:48)
--- NOTE | 2018-08-16 07:52 | PN ---
PROGRESS NOTE Mrs. Nick is a 63-year-old female who presented with respiratory failure. She has a known history of coronary artery disease, status post stenting of the RCA. She is status PEG tube and tracheostomy. She underwent dialysis yesterday and received 1 unit of packed red blood cells. Hemodynamically, she is stable. Her urine output is stable. She continued be on IV Lasix drip at 10 mg daily. Her echocardiogram showed a preserved systolic function. She is scheduled to undergo permanent dialysis catheter placement today by Dr. Mckeon. She continues to be on aspirin once a day, Plavix 75 mg daily. PHYSICAL EXAMINATION: Blood pressure 102/50 with the heart rate in the 60s. LUNGS: Clear. HEART: Regular rate and rhythm. S1, S2. No S3 with no rub. ABDOMEN: Soft, nontender. EXTREMITIES: No edema. LAB DATA: Lab data revealed hemoglobin of 7.8. BUN and creatinine of 61 and 2.37. IMPRESSION: 1. Respiratory failure, status post tracheostomy. 2. Acute renal injury. 3. History of coronary artery disease, stable. 4. Chronic obstructive lung disease. 5. Hypertension. 6. Pulmonary hypertension. 7. Anemia. RECOMMENDATION: I will re-initiate treatment with the statin. Continue the rest of medical regimen. Await the placement of her dialysis catheter. Patient may be a transfer to [facility] for long-term management. MMODL / IJN: [id number] /
[2018-08-16] MEDS: FUROSEMIDE 100 MG in SODIUM CHLORIDE 0.9% 90 ML IV SCH ×2 (07:57→17:45)
[2018-08-16] MEDS: ATORVASTATIN 40 MG TAB PO SCH (07:57)
[2018-08-16] MEDS: CHLORHEXIDINE GLUCONATE 15 ML CUP MUCOUS MEM SCH ×2 (07:57→19:56)
[2018-08-16] MEDS: CLOPIDOGREL 75 MG TAB PO SCH (07:57)
[2018-08-16] MEDS: ASPIRIN 81 MG PO SCH (07:57)
[2018-08-16] MEDS: FLUCONAZOLE IN NACL,ISO-OSM 100 MG in SALINE 1 50ML.BAG IVPB SCH (07:57)
[2018-08-16] MEDS: HEPARIN SODIUM,PORCINE 5,000 UNIT/ML 1 ML VIAL SQ SCH ×2 (07:58→19:56)
[2018-08-16] MEDS: FOLIC ACID 1 MG TAB PO SCH (07:58)
[2018-08-16] MEDS: metroNIDAZOLE 500 MG TAB OG-TUBE SCH ×3 (07:58→20:00)
[2018-08-16] MEDS: PANTOPRAZOLE 40 MG/10 ML VIAL IVP SCH ×2 (07:59→19:56)
[2018-08-16] MEDS: SERTRALINE 100 MG TAB PO SCH (08:05)
--- NOTE | 2018-08-16 08:27 | XR ---
EXAMINATION TYPE: XR chest 1V portable DATE OF EXAM: 08/16/2018 Comparison: 08/15/2018 Clinical History: 63-year-old female pneumonia Findings: Tracheostomy cannula. Left subclavian CVC tip at the cavoatrial junction. Right PICC tip in the upper right atrium. Heart remains mildly enlarged. Diffuse airspace opacity persists, slightly more conflu ent from prior. Small effusions. Possible subtle nodularity left mid lung. Impression: Cardiomegaly with increasing, more confluent diffuse airspace disease. Consider pulmonary edema versu s worsening multifocal pneumonia or ARDS. Possible underlying left midlung nodularity can be assessed with CT after successful treatment and cl earing of the patient's acute parenchymal process.
[2018-08-16 10:25] LABS: ABG Base Excess 2.7 mmol/L; ABG HCO3 27 mmol/L (21-25); ABG Oxygen Saturation 95.2 % (94-97); ABG PCO2 38 mmHg (35-45); ABG PH 7.45 (7.35-7.45); ABG PO2 75 mmHg (83-108); ABG TCO2 28 mmol/L (19-24)
--- NOTE | 2018-08-16 11:04 | P.PN ---
Subjective Progress Note Date: 08/16/18 Principal diagnosis: Confusion Patient is a 63-year-old female with a past medical history of COPD, DVT, GERD, hypertension, dyslipidemia, and asthma who presented with confusion. In the ER she underwent an extensive evaluation. CT of the head was unremarkable. She was found to have a right upper lobe pneumonia and she was started on antibiotics. Infectious disease was consulted who recommended maintaining antibiotics. Pulmonary was consulted. Sputum culture was obtained which showed probable MRSA. Zosyn was stopped and she was started on Teflaro due to inability to take Zyvox because of SSRI. Nephrology was consulted due to acute kidney injury. They stopped her Lasix, lisinopril, and Toradol. On the morning of 08/06 she went into respiratory distress necessitating intubation, she then had a PEA arrests and total down time was less than 10 minutes. She was moved to the ICU and had a central line placed and was started on norepinephrine. She underwent bronchoscopy with bronchial alveolar lavage. Chest x-ray showed pulmonary infiltrate. Clindamycin was initiated. She had decreased renal function after her code. She was started on a bicarb drip. She was found to have increased PA pressures and new pulmonary hypertension and the concern was for possible pulmonary embolism she was started on IV heparin. She had not made significant improvement in her renal function and was subsequently started on dialysis. She had 3 treatments of dialysis. Neurology was consulted who felt this was likely secondary to toxic metabolic encephalopathy but could have underlying anoxic encephalopathy. She had a trach and PEG placed on 08/12/18 and tolerated this well. She was starting to wake up after being taken off all sedatives on 08/13. However overnight on 08/14 she went into respiratory distress requiring propofol and to be placed back on the vent. She also had a drop in hemoglobin and required 1 unit of pRBC. She again had dialysis on 08/14 a nd 08/15. She required 1 additional unit of pRBC on 08/15. She is to have permanent HD cath placed on 08/16. Patient seen and examined at bedside. Awake on vent, opens eyes to name, not following commands. No acute events overnight per nursing. and daughter updated at bedside. Insurance required 21 days inpatient stay prior to LTAC. Objective - Vital Signs Vital signs: Vital Signs Temp 97.6 F 08/16/18 08:00 Pulse 64 08/16/18 09:00 Resp 34 H 08/16/18 09:00 BP 135/70 08/15/18 17:02 Pulse Ox 97 08/16/18 09:00 Intake & Output 08/15/18 08/16/18 08/16/18 18:59 06:59 18:59 Intake Total 0953.480 2678.333 314.637 Output Total 3135 1137 205 Balance -1751.000 65.333 109.637 Weight 97.4 kg 96.4 kg Intake: IV 292 292 148 Ceftaroline Fosamil 200 50 100 mg In Sodium Chloride 0.9 % 50 ml @ 100 mls/hr IVPB Q12H [facility] Rx#:[id number] Fluconazole in NaCl,Iso- 50 100 Osm 100 mg In Saline 1 50ml.bag @ 50 mls/hr IVPB DAILY [facility] Rx#:[id number] KVO 120 120 30 Normal Saline Pressure 72 72 18 bag Intake, IV Titration 300.000 460.333 166.637 Amount Furosemide 100 mg In 100 60.333 88.5 Sodium Chloride 0.9% 90 ml @ 10 MG/HR 10 mls/hr IV .Q10H [facility] Rx#: [id number] Propofol 1,000 mg In 200.000 400.000 78.137 Empty Bag 1 bag @ Titrate IV .Q0M [facility] Rx#: [id number] Tube Feeding 392 360 0 Blood Product 310 Rc Pheresis As-3 Unit 310 [id number] Other 90 90 Output: Urine 635 637 205 Stool 500 Hemodialysis 2500 Other: Voiding Method Indwelling Catheter Indwelling Catheter Indwelling Catheter ABP, PAP, CO, CI - Last Documented Arterial Blood Pressure 108/54 - Exam General: Ill appearing, no distress, appears at stated age Derm: multiple areas of ecchymosis, warm, dry Head: atraumatic, normocephalic, symmetric Eyes: EOMI, no lid lag, anicteric sclera Mouth: no lip lesion, mucus membranes dry, trach in place without any signs of bleeding Cardiovascular: S1S2 reg, no murmur, positive posterior tibial pulse bilateral, Lungs: Coarse breath Sounds bilaterally, no rhonchi, no rales , no accessory muscle use, + vent Abdominal: soft, nontender to palpation, no guarding, no appreciable organomegaly, PEG in place without any signs of bleeding Ext: no gross muscle atrophy, diffuse anasarca, no contractures Neuro: no withdrawal to pain, breathing above vent Psych: sedated with propofol, not anxious,opens eyes to commands. - Labs CBC & Chem 7: 08/16/18 05:40 08/16/18 05:40 Labs: Abnormal Lab Results - Last 24 Hours (Table) 08/15/18 08/15/18 08/15/18 Range/Units 10:15 12:33 18:33 WBC (3.8-10.6) k/uL RBC (3.80-5.40) m/uL Hgb (11.4-16.0) gm/dL Hct (34.0-46.0) % RDW (11.5-15.5) % Plt Count (150-450) k/uL Neutrophils # (1.3-7.7) k/uL Lymphocytes # (1.0-4.8) k/uL PT (9.0-12.0) sec INR (<1.2) ABG pH (7.35-7.45) ABG pCO2 (35-45) mmHg ABG pO2 (83-108) mmHg ABG HCO3 (21-25) mmol/L ABG Total CO2 (19-24) mmol/L ABG O2 Saturation (94-97) % BUN (7-17) mg/dL Creatinine (0.52-1.04) mg/dL Glucose (74-99) mg/dL POC Glucose (mg/dL) 133 H 117 H (75-99) mg/dL Calcium (8.4-10.2) mg/dL Crossmatch See Detail 08/15/18 08/15/18 08/16/18 Range/Units 19:07 23:46 04:30 WBC 17.8 H (3.8-10.6) k/uL RBC 2.84 L (3.80-5.40) m/uL Hgb 8.0 L (11.4-16.0) gm/dL Hct 25.1 L (34.0-46.0) % RDW 17.1 H (11.5-15.5) % Plt Count 133 L (150-450) k/uL Neutrophils # 16.6 H (1.3-7.7) k/uL Lymphocytes # 0.5 L (1.0-4.8) k/uL PT (9.0-12.0) sec INR (<1.2) ABG pH 7.54 H (7.35-7.45) ABG pCO2 32 L (35-45) mmHg ABG pO2 114 H (83-108) mmHg ABG HCO3 27 H (21-25) mmol/L ABG Total CO2 28 H (19-24) mmol/L ABG O2 Saturation 99.1 H (94-97) % BUN (7-17) mg/dL Creatinine (0.52-1.04) mg/dL Glucose (74-99) mg/dL POC Glucose (mg/dL) 109 H (75-99) mg/dL Calcium (8.4-10.2) mg/dL Crossmatch 08/16/18 08/16/18 08/16/18 Range/Units 05:40 05:40 05:40 WBC 17.4 H (3.8-10.6) k/uL RBC 2.69 L (3.80-5.40) m/uL Hgb 7.8 L (11.4-16.0) gm/dL Hct 24.1 L (34.0-46.0) % RDW 17.4 H (11.5-15.5) % Plt Count (150-450) k/uL Neutrophils # (1.3-7.7) k/uL Lymphocytes # (1.0-4.8) k/uL PT 12.5 H (9.0-12.0) sec INR 1.2 H (<1.2) ABG pH (7.35-7.45) ABG pCO2 (35-45) mmHg ABG pO2 (83-108) mmHg ABG HCO3 (21-25) mmol/L ABG Total CO2 (19-24) mmol/L ABG O2 Saturation (94-97) % BUN 61 H (7-17) mg/dL Creatinine 2.37 H (0.52-1.04) mg/dL Glucose 126 H (74-99) mg/dL POC Glucose (mg/dL) (75-99) mg/dL Calcium 7.5 L (8.4-10.2) mg/dL Crossmatch 08/16/18 Range/Units 05:47 WBC (3.8-10.6) k/uL RBC (3.80-5.40) m/uL Hgb (11.4-16.0) gm/dL Hct (34.0-46.0) % RDW (11.5-15.5) % Plt Count (150-450) k/uL Neutrophils # (1.3-7.7) k/uL Lymphocytes # (1.0-4.8) k/uL PT (9.0-12.0) sec INR (<1.2) ABG pH (7.35-7.45) ABG pCO2 (35-45) mmHg ABG pO2 (83-108) mmHg ABG HCO3 (21-25) mmol/L ABG Total CO2 (19-24) mmol/L ABG O2 Saturation (94-97) % BUN (7-17) mg/dL Creatinine (0.52-1.04) mg/dL Glucose (74-99) mg/dL POC Glucose (mg/dL) 138 H (75-99) mg/dL Calcium (8.4-10.2) mg/dL Crossmatch Microbiology - Last 24 Hours (Table) 08/06/18 09:30 Acid Fast Bacilli Smear - Final Bronchial Washings - Random Acid Fast Bacilli Culture - Preliminary 08/14/18 10:19 Blood Culture - Preliminary Blood No Growth after 24 hours Assessment and Plan Assessment: MRSA pneumonia, Acute hypoxic respiratory failure, akash in sputum - worsening leukocytosis and respiratory distress on 08/14 -On Teflaro, fluconazole, and flagyl -Pulmonary hygiene -Infectious disease recommendations appreciated Antibiotic associate diarrhea - c diff negative - flagyl per ID - maintain fecal management system - stop colace Anemia, multifactoral - suspect dilutional, + FOB, but no active bleeding - s/p 2 units pRBC - repeat CBC in AM Acute hypoxic respiratory failure -Status post tracheostomy -Vent management per pulmonary Acute kidney injury requiring hemodialysis -Nephrology recommendations appreciated: HD today, needs permanent cath -Avoid additional nephrotoxic agents -Follow basic metabolic profile daily -On PhosLo COPD with exacerbation -Scheduled DuoNeb's -When necessary bronchodilators -Solu-Medrol Hypertension, controlled -Follow blood pressures -No longer norepinephrine -Off Norvasc, metoprolol, and lisinopril Hypothyroidism -Continue with Synthroid therapy Chronic pain syndrome -Status post removal of pain pump -Once of propofol consider lortab elixir for pain. Severe pulmonary hypertension -Management per pulmonary Critical illness polyneuropathy -PT/OT evaluation -Likely will need LTAC History of closed head injury Aborted sudden cardiac with PEA Septic shock, resolved Have attempted to d/w family on multiple occasions limiting treat and disease process. Family still wants to proceed with aggressive care. DVT prophylaxis: heparin Discussed with: Daughter, , nursing Anticipated discharge: [address]: LTAC A total of 25 minutes was spent on the care of this complex patient more than 50% of the time was spent in counseling and care coordination.
[2018-08-16 12:09] LABS: Glucose,Whole Blood 121 mg/dL (75-99)
[2018-08-16] MEDS: CEFTAROLINE FOSAMIL IVPB SCH (13:21)
[2018-08-16] MEDS: SODIUM CHLORIDE 0.9% IVPB SCH (13:21)
[2018-08-16] MEDS ORDERED: LIDOCAINE 1% INJ 10MG/ML (20 ML MDV) SQ ONE ×2 (14:00→14:14)
[2018-08-16] MEDS ORDERED: IV FLUID CONTINUATION 1,000 ML IV ONE (14:15)
--- NOTE | 2018-08-16 14:50 | P.PN ---
Subjective Progress Note Date: 08/15/18 Principal diagnosis: MRSA / aspiration pneumonia The patient is currently afebrile however the patient remains to be on vent support, hemodynamically stable not requiring any pressor support, the patient remains to be sedated has been tolerating her tube feeds still has some loose stools but no worsening, urine output is borderline Objective - Vital Signs Vital signs: Vital Signs Temp 97.8 F 08/15/18 08:00 Pulse 68 08/15/18 11:26 Resp 40 H 08/15/18 11:00 BP 91/60 08/15/18 04:00 Pulse Ox 97 08/15/18 11:00 Intake & Output 08/14/18 08/15/18 08/15/18 18:59 06:59 18:59 Intake Total 2799.274 8073.889 402.207 Output Total 720 660 190 Balance 947.167 540.889 212.207 Weight 97.4 kg 97.4 kg Intake: IV 452 252 98 Ceftaroline Fosamil 200 100 50 mg In Sodium Chloride 0.9 % 50 ml @ 100 mls/hr IVPB Q12H [facility] Rx#:[id number] Fluconazole in NaCl,Iso- 50 50 Osm 100 mg In Saline 1 50ml.bag @ 50 mls/hr IVPB DAILY [facility] Rx#:[id number] Furosemide 100 mg In 80 10 Sodium Chloride 0.9% 90 ml @ 10 MG/HR 10 mls/hr IV .Q10H [facility] Rx#: [id number] KVO 120 120 30 Norepinephrine 32 mg In 30 Sodium Chloride 0.9% 218 ml @ 0.05 MCG/KG/MIN 2. 313 mls/hr IV .Q24H [facility] Rx#:[id number] Normal Saline Pressure 72 72 18 bag Intake, IV Titration 393.167 364.889 160.207 Amount Furosemide 100 mg In 93.167 180.5 Sodium Chloride 0.9% 90 ml @ 10 MG/HR 10 mls/hr IV .Q10H [facility] Rx#: [id number] Propofol 1,000 mg In 300 184.389 160.207 Empty Bag 1 bag @ Titrate IV .Q0M [facility] Rx#: [id number] Tube Feeding 324 494 114 Blood Product 348 Rc Pheresis As-3 Unit 310 [id number] Other 150 90 30 Output: Urine 720 660 190 Other: Voiding Method Indwelling Catheter Indwelling Catheter Indwelling Catheter # Voids 2 2 ABP, PAP, CO, CI - Last Documented Arterial Blood Pressure 109/58 - Exam GENERAL DESCRIPTION:[ Middle-aged female intubated through the trach on the vent] HEENT: [Patient is orally intubated and limited examination of the oral cavity] EYES : [No pallor or scleral icterus] RESPIRATORY SYSTEM: [Unlabored breathing decreased breath sound at the base] CARDIA VASCULAR SYSTEM: [S1-S2 regular rate and rhythm no murmur] GI: [Abdominal soft there's no tenderness no organomegaly] EXTREMITIES: [No edema feet] - Labs CBC & Chem 7: 08/16/18 05:40 08/16/18 05:40 Labs: Abnormal Lab Results - Last 24 Hours (Table) 08/14/18 08/14/18 08/14/18 Range/Units 10:19 16:59 18:33 WBC 16.3 H (3.8-10.6) k/uL RBC 2.46 L (3.80-5.40) m/uL Hgb 7.2 L (11.4-16.0) gm/dL Hct 21.8 L (34.0-46.0) % RDW 17.0 H (11.5-15.5) % Plt Count 134 L (150-450) k/uL ABG pO2 (83-108) mmHg ABG HCO3 (21-25) mmol/L ABG Total CO2 (19-24) mmol/L ABG O2 Saturation (94-97) % BUN (7-17) mg/dL Creatinine (0.52-1.04) mg/dL Glucose (74-99) mg/dL POC Glucose (mg/dL) 175 H (75-99) mg/dL Calcium (8.4-10.2) mg/dL Phosphorus (2.5-4.5) mg/dL Stool Occult Blood Positive H (Negative) 08/14/18 08/15/18 08/15/18 Range/Units 23:22 05:09 05:15 WBC (3.8-10.6) k/uL RBC (3.80-5.40) m/uL Hgb (11.4-16.0) gm/dL Hct (34.0-46.0) % RDW (11.5-15.5) % Plt Count (150-450) k/uL ABG pO2 (83-108) mmHg ABG HCO3 26 H (21-25) mmol/L ABG Total CO2 27 H (19-24) mmol/L ABG O2 Saturation 97.2 H (94-97) % BUN 78 H (7-17) mg/dL Creatinine 3.15 H (0.52-1.04) mg/dL Glucose 153 H (74-99) mg/dL POC Glucose (mg/dL) 165 H (75-99) mg/dL Calcium 7.8 L (8.4-10.2) mg/dL Phosphorus 7.6 H (2.5-4.5) mg/dL Stool Occult Blood (Negative) 08/15/18 08/15/18 08/15/18 Range/Units 05:15 05:16 08:35 WBC 15.7 H (3.8-10.6) k/uL RBC 2.23 L (3.80-5.40) m/uL Hgb 6.9 L* (11.4-16.0) gm/dL Hct 19.8 L* (34.0-46.0) % RDW 17.2 H (11.5-15.5) % Plt Count 138 L (150-450) k/uL ABG pO2 81 L (83-108) mmHg ABG HCO3 (21-25) mmol/L ABG Total CO2 27 H (19-24) mmol/L ABG O2 Saturation (94-97) % BUN (7-17) mg/dL Creatinine (0.52-1.04) mg/dL Glucose (74-99) mg/dL POC Glucose (mg/dL) 170 H (75-99) mg/dL Calcium (8.4-10.2) mg/dL Phosphorus (2.5-4.5) mg/dL Stool Occult Blood (Negative) Assessment and Plan Assessment: 1-patient with left upper lobe pneumonia with a sputum culture has been finalized as MRSA , subsequent worsening of her clinical condition and cardiac arrest and status post resuscitation and intubation with a complaint of possible aspiration pneumonia, s/p bronchoscopy----bronchoscopy cultures grew Inga only--- patient could not be extubated hence scheduled for trach and PEG today, the patient did have been stable over the last 24 hours with no further worsening her clinical condition 2-patient is on SSRI contraindicating the use of Zyvox 3-patient with significant diarrhea, antibiotic associated ,stool for C. diff is negative , diarrhea slightly decreased in amount 4- leukocytosis more likely secondary steroids have shown a downward trend down to 15,000 (1) Sepsis Current Visit: Yes Status: Acute Code(s): A41.9 - SEPSIS, UNSPECIFIED ORGANISM SNOMED Code(s): 97347753 (2) Nosocomial pneumonia Current Visit: Yes Status: Acute Code(s): J18.9 - PNEUMONIA, UNSPECIFIED ORGANISM; Y95 - NOSOCOMIAL CONDITION SNOMED Code(s): 553780662 Plan: 1- the patient will be continued on Teflaro 200 mg twice along with Flagyl 500 every 8 hours for now 2- Diflucan for possible oropharyngeal candidiasis Clinical condition and repeat cultures will be followed and antibiotic adjusted further if needed Family the bedside questions and concerns were answered Overall prognosis remains to be guarded Time with Patient: Less than 30
[2018-08-16 17:19] LABS: Glucose,Whole Blood 97 mg/dL (75-99)
[2018-08-16] MEDS: QUEtiapine 200 MG TAB PO SCH (20:00)
[2018-08-16] MEDS: AMITRIPTYLINE HCL 50 MG TAB PO SCH (20:00)
--- NOTE | 2018-08-16 21:21 | PN ---
PROGRESS NOTE The patient is seen for followup for acute kidney injury. This morning she is awake. Patient remains on the vent. She is currently on CPAP. Urine output maintained on 40- 50 mL an hour. PHYSICAL EXAMINATION: This morning, blood pressure was 120/60, heart rate of 81 per minute. Patient is afebrile. Examination of the heart S1, S2. Examination of the lungs bilateral breath sounds are heard. Abdomen is soft, nontender. Examination of lower extremities shows decreasing edema. [employer] exam shows patient moving all 4 extremities. She is following commands. LABS: Show sodium 137, potassium 3.9, BUN 61, serum creatinine 2.37. ASSESSMENT: 1. Acute kidney injury, acute tubular necrosis, currently nonoliguric. Maintained on Lasix drip. Urine output at about 50 mL an hour. The patient had dialysis yesterday. We will hold off on dialysis today as well as tomorrow and monitor for recovery of renal function. 2. Volume overload, slowly improving. 3. Severe sepsis with septic shock from MRSA pneumonia and Inga pneumonia. 4. Anemia status post packed RBC RBCs transfusion, maintained on Aranesp. 5. Hyperphosphatemia from renal failure, maintained on PhosLo. PLAN: Hold dialysis today as well as in a.m. Continue with Lasix drip. Repeat labs in a.m. Continue to avoid nephrotoxic agents. MMODL / IJN: [id number] /
[2018-08-17 04:09] LABS: Glucose,Whole Blood 126 mg/dL (75-99)
[2018-08-17 04:09] LABS: Glucose,Whole Blood 129 mg/dL (75-99)
[2018-08-17] MEDS: SODIUM CHLORIDE 0.9% IVPB SCH ×2 (04:49→16:20)
[2018-08-17] MEDS: NOREPINEPHRINE 32 MG in SODIUM CHLORIDE 0.9% 218 ML IV SCH ×2 (04:49→23:10)
[2018-08-17] MEDS: CEFTAROLINE FOSAMIL IVPB SCH ×2 (04:49→16:20)
[2018-08-17] MEDS: INSULIN ASPART (NovoLOG) 100 UNIT/ML VIAL SQ SCH ×4 (04:49→18:07)
[2018-08-17 05:35] LABS: ABG Base Excess 2.1 mmol/L; ABG HCO3 26 mmol/L (21-25); ABG Oxygen Saturation 96.8 % (94-97); ABG PCO2 39 mmHg (35-45); ABG PH 7.43 (7.35-7.45); ABG PO2 84 mmHg (83-108); ABG TCO2 28 mmol/L (19-24)
[2018-08-17 05:48] LABS: Glucose,Whole Blood 143 mg/dL (75-99)
[2018-08-17 06:22] LABS: Calcium 7.5 mg/dL (8.4-10.2); Potassium 4.4 mmol/L (3.5-5.1)
[2018-08-17] MEDS: CALCIUM ACETATE 667 MG CAP PO SCH ×3 (06:22→18:07)
[2018-08-17] MEDS: LEVOTHYROXINE 75 MCG TAB PEG/G-TUBE SCH (06:22)
[2018-08-17] MEDS: methylPREDNISolone SOD SUCCI 125 MG/2 ML VIAL IV SCH ×3 (06:22→18:06)
[2018-08-17 06:25] LABS: Anisocytosis Slight; Basophils % (A) 0 %; Eosinophils % (A) 0 %; HCT 22.3 % (34.0-46.0); HGB 7.3 gm/dL (11.4-16.0); Hypochromasia Slight; Lymphocytes # (A) 0.3 k/uL (1.0-4.8); Lymphocytes % (A) 2 %; MCH 29.5 pg (25.0-35.0); MCV 89.6 fL (80.0-100.0); Mean Platelet Volume 9.2; Monocytes # (A) 0.4 k/uL (0-1.0); Monocytes % (A) 3 %; Neutrophils # (A) 14.8 k/uL (1.3-7.7); Neutrophils % (A) 95 %; Platelet Count 142 k/uL (150-450); Poikilocytosis Slight; RBC 2.49 m/uL (3.80-5.40); RDW 17.5 % (11.5-15.5); WBC 15.6 k/uL (3.8-10.6)
[2018-08-17] MEDS: IPRATROPIUM-ALBUTEROL 3 ML NEB INHALATION SCH ×4 (07:38→19:28)
--- NOTE | 2018-08-17 08:08 | P.PN ---
Subjective Progress Note Date: 08/17/18 Principal diagnosis: pneumonia Patient is a 63-year-old female with a past medical history of COPD, DVT, GERD, hypertension, dyslipidemia, and asthma who presented with confusion. In the ER she underwent an extensive evaluation. CT of the head was unremarkable. She was found to have a right upper lobe pneumonia and she was started on antibiotics. Infectious disease was consulted who recommended maintaining antibiotics. Pulmonary was consulted. Sputum culture was obtained which showed probable MRSA. Zosyn was stopped and she was started on Teflaro due to inability to take Zyvox because of SSRI. Nephrology was consulted due to acute kidney injury. They stopped her Lasix, lisinopril, and Toradol. On the morning of 08/06 she went into respiratory distress necessitating intubation, she then had a PEA arrests and total down time was less than 10 minutes. She was moved to the ICU and had a central line placed and was started on norepinephrine. She underwent bronchoscopy with bronchial alveolar lavage. Chest x-ray showed pulmonary infiltrate. Clindamycin was initiated. She had decreased renal function after her code. She was started on a bicarb drip. She was found to have increased PA pressures and new pulmonary hypertension and the concern was for possible pulmonary embolism she was started on IV heparin. She had not made significant improvement in her renal function and was subsequently started on dialysis. She had 3 treatments of dialysis. Neurology was consulted who felt this was likely secondary to toxic metabolic encephalopathy but could have underlying anoxic encephalopathy. She had a trach and PEG placed on 08/12/18 and tolerated this well. She was starting to wake up after being taken off all sedatives on 08/13. However overnight on 08/14 she went into respiratory distress requiring propofol and to be placed back on the vent. She also had a drop in hemoglobin and required 1 unit of pRBC. She again had dialysis on 08/14 and 08/15. She required 1 additional unit of pRBC on 08/15. She had permanent HD cath placed on 08/16. 08/17/14 pt is on sedation holiday, she opens her eyes and slightly responds to stimulation. trached , remains afebrile Objective - Vital Signs Vital signs: Vital Signs Temp 98.0 F 08/17/18 08:00 Pulse 74 08/17/18 08:00 Resp 36 H 08/17/18 08:00 BP 95/59 08/17/18 08:00 Pulse Ox 96 08/17/18 08:00 Intake & Output 08/16/18 08/17/18 08/17/18 18:59 06:59 18:59 Intake Total 697.581 753.902 92 Output Total 870 1240 230 Balance -172.419 -486.098 -138 Weight 96.4 kg 97.6 kg Intake: IV 342 192 32 Ceftaroline Fosamil 200 50 mg In Sodium Chloride 0.9 % 50 ml @ 100 mls/hr IVPB Q12H [facility] Rx#:[id number] Fluconazole in NaCl,Iso- 100 Osm 100 mg In Saline 1 50ml.bag @ 50 mls/hr IVPB DAILY [facility] Rx#:[id number] KVO 120 120 20 Normal Saline Pressure 72 72 12 bag Intake, IV Titration 295.581 66.902 Amount Furosemide 100 mg In 186.5 Sodium Chloride 0.9% 90 ml @ 10 MG/HR 10 mls/hr IV .Q10H [facility] Rx#: [id number] Propofol 1,000 mg In 109.081 66.902 Empty Bag 1 bag @ Titrate IV .Q0M [facility] Rx#: [id number] Tube Feeding 60 405 60 Other 90 Output: Urine 870 1240 230 Other: Voiding Method Indwelling Catheter Indwelling Catheter ABP, PAP, CO, CI - Last Documented Arterial Blood Pressure 126/59 - Exam General: Ill appearing, no distress, responding to stimuli Derm: multiple areas of ecchymosis Head: atraumatic, normocephalic Eyes: EOMI, anicteric sclera Mouth: no lip lesion, mucus membranes dry, trach in place without bleeding Cardiovascular: S1S2 reg, no murmur, rubs or gallops Lungs: decreased Coarse breath Sounds bilaterally, no rhonchi, no rales , + vent , R sided HD catheter in place Abdominal: soft, nontender to palpation, no guarding, no appreciable organomegaly, PEG in place without signs of bleeding Ext: no gross muscle atrophy, trace edema Neuro: opens eyes Psych: opens eyes to commands. - Psychiatric Psychiatric: Present: A&O x's 3 - Labs CBC & Chem 7: 08/17/18 04:10 08/17/18 04:10 Labs: Abnormal Lab Results - Last 24 Hours (Table) 08/16/18 08/16/1819 Range/Units 10:22 11:55 23:45 WBC (3.8-10.6) k/uL RBC (3.80-5.40) m/uL Hgb (11.4-16.0) gm/dL Hct (34.0-46.0) % RDW (11.5-15.5) % Plt Count (150-450) k/uL Neutrophils # (1.3-7.7) k/uL Lymphocytes # (1.0-4.8) k/uL ABG pO2 75 L (83-108) mmHg ABG HCO3 27 H (21-25) mmol/L ABG Total CO2 28 H (19-24) mmol/L BUN (7-17) mg/dL Creatinine (0.52-1.04) mg/dL Glucose (74-99) mg/dL POC Glucose (mg/dL) 121 H 126 H (75-99) mg/dL Calcium (8.4-10.2) mg/dL 08/17/18 08/17/18 08/17/18 Range/Units 00:39 04:10 04:10 WBC 15.6 H (3.8-10.6) k/uL RBC 2.49 L (3.80-5.40) m/uL Hgb 7.3 L (11.4-16.0) gm/dL Hct 22.3 L (34.0-46.0) % RDW 17.5 H (11.5-15.5) % Plt Count 142 L (150-450) k/uL Neutrophils # 14.8 H (1.3-7.7) k/uL Lymphocytes # 0.3 L (1.0-4.8) k/uL ABG pO2 (83-108) mmHg ABG HCO3 (21-25) mmol/L ABG Total CO2 (19-24) mmol/L BUN 81 H (7-17) mg/dL Creatinine 2.81 H (0.52-1.04) mg/dL Glucose 131 H (74-99) mg/dL POC Glucose (mg/dL) 129 H (75-99) mg/dL Calcium 7.5 L (8.4-10.2) mg/dL 08/17/18 08/17/18 Range/Units 05:30 05:44 WBC (3.8-10.6) k/uL RBC (3.80-5.40) m/uL Hgb (11.4-16.0) gm/dL Hct (34.0-46.0) % RDW (11.5-15.5) % Plt Count (150-450) k/uL Neutrophils # (1.3-7.7) k/uL Lymphocytes # (1.0-4.8) k/uL ABG pO2 (83-108) mmHg ABG HCO3 26 H (21-25) mmol/L ABG Total CO2 28 H (19-24) mmol/L BUN (7-17) mg/dL Creatinine (0.52-1.04) mg/dL Glucose (74-99) mg/dL POC Glucose (mg/dL) 143 H (75-99) mg/dL Calcium (8.4-10.2) mg/dL Microbiology - Last 24 Hours (Table) 08/14/18 10:19 Blood Culture - Preliminary Blood No Growth after 48 hours 08/06/18 09:30 Acid Fast Bacilli Smear - Final Bronchial Washings - Random Acid Fast Bacilli Culture - Preliminary Assessment and Plan Plan: Assessment and Plan MRSA pneumonia, Acute hypoxic respiratory failure, akash in sputum - worsening leukocytosis up to 17,000 08/16/17 now better to 15,000 with respiratory distress on 08/14 -On Teflaro, fluconazole, and flagyl -Pulmonary hygiene -Infectious disease recommendations appreciated, continue to monitor Antibiotic associate diarrhea - c diff negative - flagyl continued ID following - maintain fecal management system , rectal tube - off colace Anemia, multifactoral - suspect dilutional, + FOB, but no active bleeding - s/p 2 units pRBC - CBC relatively stable hemoglobin dwon from 7.8 to 7.3 continue aranesp Acute hypoxic respiratory failure -Status post tracheostomy -Vent management per pulmonary, continue to monitor. Acute kidney injury requiring hemodialysis -Nephrology recommendations appreciated: HD on hold for now Status post permanent cath 08/16/2018 -Avoid nephrotoxins -On PhosLo Monitoring for renal recovery Serum creatinine 2.8 today compared to 2.4 yesterday COPD with exacerbation Continue oxygen, bronchodilators IV antibiotics and IV Solu-Medrol Essential Hypertension, controlled -Following blood pressures -not on pressors -Off Norvasc, metoprolol, and lisinopril Hypothyroidism -Continue with Synthroid therapy Chronic pain syndrome -Status post removal of pain pump - consider lortab elixir for pain if pt is more awake. Severe pulmonary hypertension -Management per pulmonary Critical illness polyneuropathy -PT/OT - LTAC pending , next week HLD: continue Lipitor History of closed head injury Aborted sudden cardiac with PEA Septic shock, resolved DVT prophylaxis: heparin GI prophylaxis: on Protonix Discussed with: nurse Anticipated discharge: 6-[address]: [facility]
--- NOTE | 2018-08-17 08:29 | XR ---
EXAMINATION TYPE: XR chest 1V portable DATE OF EXAM: 08/17/2018 COMPARISON: 08/16/2018 HISTORY: Pneumonia. Follow-up exam. TECHNIQUE: Single frontal view of the chest is obtained. FINDINGS: Midline tracheostomy is again noted. Cardiomediastinal silhouette is unchanged and enlarge d. Diffuse airspace disease is seen bilaterally with both alveolar and interstitial pattern, predomin antly interstitial. Dual lumen large bore right hemodialysis catheter terminates in the superior vena cava/right atrial junction. Left-sided subclavian approach central venous catheter also terminates i n a similar position as does a right PICC line. Trace pleural effusions blunt the costophrenic angles . IMPRESSION: Similar degree of predominantly interstitial airspace disease with few areas of alveolar opacification and trace pleural effusions. Primary consideration is for fluid overload likely both c ardiogenic and noncardiogenic with pneumonia and ARDS less likely.
--- NOTE | 2018-08-17 08:41 | PCN ---
PROCEDURE NOTE PREOPERATIVE DIAGNOSIS: Acute chronic renal failure. PROCEDURE: 1. Placement of ultrasound-guided 21 cm dialysis catheter right internal jugular approach. 2. Removal of the dialysis catheter right femoral approach. Sedation time is 40 minutes. DESCRIPTION OF PROCEDURE: This patient was brought to the label maker. The right side of the neck and chest was prepped and draped in the usual sterile manner and 1% lidocaine infiltrated in the neck and chest area. Ultrasound-guided needle introduced right internal jugular vein and micropuncture guidewire was passed. Then we placed a 4-Maltese dilator then we placed a regular guidewire which was parked in the inferior vena cava. After the tunnel was created. Through the tunnel we brought 21 cm dialysis catheter in the neck incision area. The dilator was advanced on the top of the guidewire then we passed the sheath on the top of the guidewire. Through the sheath we introduced the dialysis catheter. Sheath was removed, tip of catheter in superior vena cava and atrium, flushed with heparin and saline and secured with Vicryl and nylon. After that, right groin was prepped and stitches were removed. The right femoral catheter removed. The patient tolerated the procedure. MMODL / IJN: [id number] /
--- NOTE | 2018-08-17 09:05 | PN ---
PROGRESS NOTE Mrs. Nick is a 63-year-old female who presented with respiratory failure requiring mechanical ventilation. She has a trach and a PEG tube, underwent placement of permanent dialysis catheter yesterday. She has a history of coronary artery disease, status post stenting of the right coronary artery. Hemodynamically, she is stable. She continues to be on IV Lasix drip. There is no evidence of malignant arrhythmia. Hemodynamically she has been stable. Her chest x-ray shows multiple airspace opacity suggestive of ARDS. She continues to be at this time on aspirin once a day, Lipitor 40 mg daily, Plavix 75 mg daily, furosemide IV drip at 10 mg a day. PHYSICAL EXAMINATION: Blood pressure 117/60 with the heart in the 60s. LUNGS: Clear anteriorly. HEART: Regular rate and rhythm. S1, S2. No S3. No rub. ABDOMEN: Soft, nontender. Positive bowel sounds. EXTREMITIES: No significant edema. LAB DATA: Lab data revealed a BUN and creatinine of 81 and 2.8, potassium 4.4, hemoglobin of 7.3. IMPRESSION: 1. Respiratory failure requiring mechanical ventilation with methicillin-resistant Staphylococcus aureus pneumonia. 2. Status post trach and PEG. 3. History of coronary artery disease. 4. Acute renal injury with dialysis. 5. History of hypertension. 6. History of cerebrovascular accident. RECOMMENDATION: From the cardiac standpoint, we will continue present therapy. Dialysis will be performed as per Dr. Schmitt. Her chest x-ray continues to show diffuse infiltrate. Depending on her progress, further recommendation will be made. MMODL / IJN: [id number] /
[2018-08-17] MEDS: FUROSEMIDE 100 MG in SODIUM CHLORIDE 0.9% 90 ML IV SCH ×2 (09:15→18:16)
[2018-08-17] MEDS: ASPIRIN 81 MG PO SCH (09:16)
[2018-08-17] MEDS: FLUCONAZOLE IN NACL,ISO-OSM 100 MG in SALINE 1 50ML.BAG IVPB SCH (09:16)
[2018-08-17] MEDS: CLOPIDOGREL 75 MG TAB PO SCH (09:16)
[2018-08-17] MEDS: ATORVASTATIN 40 MG TAB PO SCH (09:16)
[2018-08-17] MEDS: FOLIC ACID 1 MG TAB PO SCH (09:16)
[2018-08-17] MEDS: CHLORHEXIDINE GLUCONATE 15 ML CUP MUCOUS MEM SCH ×2 (09:16→20:41)
[2018-08-17] MEDS: PANTOPRAZOLE 40 MG/10 ML VIAL IVP SCH ×2 (09:17→20:41)
[2018-08-17] MEDS: HEPARIN SODIUM,PORCINE 5,000 UNIT/ML 1 ML VIAL SQ SCH ×2 (09:17→20:41)
[2018-08-17] MEDS: SERTRALINE 100 MG TAB PO SCH (09:18)
[2018-08-17] MEDS: metroNIDAZOLE 500 MG TAB OG-TUBE SCH ×3 (10:00→20:58)
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
[2018-08-17 12:01] LABS: Glucose,Whole Blood 116 mg/dL (75-99)
--- NOTE | 2018-08-17 13:54 | P.PN ---
Subjective Progress Note Date: 08/17/18 Principal diagnosis: Altered mental status, weakness Last seen by neurology on 08/14/18. Propofol now off. On intermittent CPAP support. Family at bedside states she is able to follow commands better today, able to give thumbs up bilaterally. No seizure. No abrupt changes in mentation or new observed focal neuro c/o. Objective - Vital Signs Vital signs: Vital Signs Temp 98.3 F 08/17/18 12:00 Pulse 79 08/17/18 12:00 Resp 29 H 08/17/18 12:00 BP 95/59 08/17/18 12:00 Pulse Ox 93 L 08/17/18 12:00 Intake & Output 08/16/18 08/17/18 08/17/18 18:59 06:59 18:59 Intake Total 697.581 853.902 359.098 Output Total 870 1240 675 Balance -172.419 -386.098 -315.902 Weight 96.4 kg 97.6 kg Intake: IV 342 192 146 Ceftaroline Fosamil 200 50 mg In Sodium Chloride 0.9 % 50 ml @ 100 mls/hr IVPB Q12H [facility] Rx#:[id number] Fluconazole in NaCl,Iso- 100 50 Osm 100 mg In Saline 1 50ml.bag @ 50 mls/hr IVPB DAILY [facility] Rx#:[id number] KVO 120 120 60 Normal Saline Pressure 72 72 36 bag Intake, IV Titration 295.581 166.902 33.098 Amount Furosemide 100 mg In 186.5 100 Sodium Chloride 0.9% 90 ml @ 10 MG/HR 10 mls/hr IV .Q10H [facility] Rx#: [id number] Propofol 1,000 mg In 109.081 66.902 33.098 Empty Bag 1 bag @ Titrate IV .Q0M [facility] Rx#: [id number] Tube Feeding 60 405 150 Other 90 30 Output: Urine 870 1240 675 Other: Voiding Method Indwelling Catheter Indwelling Catheter Indwelling Catheter ABP, PAP, CO, CI - Last Documented Arterial Blood Pressure 125/56 - Exam Gen NAD Pleasant and cooperative MS Awake and alert Able to profiling machine set up operator and release my hand on command bilaterally CN PERRL Tracks examiner with eyes no nystagmus Blinks to threat bilaterally No facial asymmetry +Cough/gag Motor Normal bulk/tone No tremors Weak profiling machine set up operator o/w no other spontaneous limb movements Sens Grimaces to nailbed stim x4 no obvious neglect Coord No ocular dysmetria; appendicular coordination cannot be tested due to existing motor weakness DTRs 0/4 throughout Gait Cannot test due to weakness - Labs CBC & Chem 7: 08/17/18 04:10 08/17/18 04:10 Labs: Abnormal Lab Results - Last 24 Hours (Table) 08/16/18 08/17/18 08/17/18 Range/Units 23:45 00:39 04:10 WBC (3.8-10.6) k/uL RBC (3.80-5.40) m/uL Hgb (11.4-16.0) gm/dL Hct (34.0-46.0) % RDW (11.5-15.5) % Plt Count (150-450) k/uL Neutrophils # (1.3-7.7) k/uL Lymphocytes # (1.0-4.8) k/uL ABG HCO3 (21-25) mmol/L ABG Total CO2 (19-24) mmol/L BUN 81 H (7-17) mg/dL Creatinine 2.81 H (0.52-1.04) mg/dL Glucose 131 H (74-99) mg/dL POC Glucose (mg/dL) 126 H 129 H (75-99) mg/dL Calcium 7.5 L (8.4-10.2) mg/dL 08/17/18 08/17/18 08/17/18 Range/Units 04:10 05:30 05:44 WBC 15.6 H (3.8-10.6) k/uL RBC 2.49 L (3.80-5.40) m/uL Hgb 7.3 L (11.4-16.0) gm/dL Hct 22.3 L (34.0-46.0) % RDW 17.5 H (11.5-15.5) % Plt Count 142 L (150-450) k/uL Neutrophils # 14.8 H (1.3-7.7) k/uL Lymphocytes # 0.3 L (1.0-4.8) k/uL ABG HCO3 26 H (21-25) mmol/L ABG Total CO2 28 H (19-24) mmol/L BUN (7-17) mg/dL Creatinine (0.52-1.04) mg/dL Glucose (74-99) mg/dL POC Glucose (mg/dL) 143 H (75-99) mg/dL Calcium (8.4-10.2) mg/dL 08/17/18 Range/Units 12:00 WBC (3.8-10.6) k/uL RBC (3.80-5.40) m/uL Hgb (11.4-16.0) gm/dL Hct (34.0-46.0) % RDW (11.5-15.5) % Plt Count (150-450) k/uL Neutrophils # (1.3-7.7) k/uL Lymphocytes # (1.0-4.8) k/uL ABG HCO3 (21-25) mmol/L ABG Total CO2 (19-24) mmol/L BUN (7-17) mg/dL Creatinine (0.52-1.04) mg/dL Glucose (74-99) mg/dL POC Glucose (mg/dL) 116 H (75-99) mg/dL Calcium (8.4-10.2) mg/dL Microbiology - Last 24 Hours (Table) 08/14/18 10:19 Blood Culture - Preliminary Blood No Growth after 72 hours - Imaging and Cardiology CT Scan - head: image reviewed (CT Head wo cont 08/10/18. nil acute. Atrophy. Sm all vessel disease. EEG 08/10/18. Theta and delta slowing. No EPD. No sleep.) Assessment and Plan Assessment: Altered mental status h/o respiratory failure with anoxic encephalopathy- patient is seen to be improving clinically from a mental status standpoint. Diffuse weakness with prolonged hospitalization and diffuse hyporreflexia, consistent with polyneuropathy of critical illness. Plan: -Continue supportive care. Minimize sedation -Explained that as the brain ages, it takes longer to metabolize sedatives, not to mention patient was in respiratory failure and went into shock putting her at risk for anoxic/hypoxic brain injury/encephalopathy. -Reviewed CT Head and EEG findings with patient/family. -Currently, given patient continues to improve clinically, do not recommend new neuro testing at this time. -She does have diffuse appendicular weakness. Given her prolonged hospitalization and immobilization, this is consistent with polyneuropathy of critical illness. Anticipate extensive rehabilitation once discharged from acute stay. -Will follow periodically. I have d/w patient/family all my clinical impressions and recs. All questions answered. Time with Patient: Less than 30 (Time spent in direct patient care, greater than 50% of which was spent in [id number] counseling and coordination of care: 25 minutes.)
--- NOTE | 2018-08-17 13:56 | PN ---
PROGRESS NOTE Patient is seen for followup for acute kidney injury. This morning she is awake. She remains on CPAP. The patient has had good urine output at about 40-50 mL an hour. She is maintained on Lasix at 10 mg an hour. PHYSICAL EXAMINATION: This morning, patient is awake. She is on the vent. Blood pressure was 95/59, heart rate 80 per minute. The patient is afebrile. Examination of the heart, S1, S2. Examination of the lungs, bilateral breath sounds are heard. Abdomen is soft, nontender. Examination of the lower extremities shows edema 2+ bilaterally. 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 Patient moving all 4 extremities. LABS: Show sodium 138, potassium 4.4, BUN 81, serum creatinine 2.8, hemoglobin 7.3 g/dL, calcium 7.5. ASSESSMENT: 1. Acute kidney injury, acute tubular necrosis, currently nonoliguric. Maintained on Lasix drip with good urine output. I will hold off on hemodialysis today as well and we will reassess tomorrow regarding need for dialysis. 2. Ventilator dependent respiratory failure, secondary to sepsis and pneumonia. 3. Septic shock. 4. Methicillin-resistant Staphylococcus aureus pneumonia as well as a sputum culture growing Inga, currently on antifungal treatment. 5. Volume overload, improved post dialysis. Continue with the Lasix drip for now. 6. Anemia, status post packed RBCs transfusion with no significant bleeding noted. The stool was positive for occult blood; however, there has not been any large bloody bowel movements seen. PLAN: Continue with the Lasix drip. Hold off on dialysis tomorrow. Patient has had a PermCath placed and if she is transferred to [facility], she can be monitored for need for dialysis over there. MMODL / IJN: [id number] /
[2018-08-17] MEDS: PROPOFOL 1,000 MG in EMPTY BAG 1 BAG IV SCH ×3 (14:55→23:11)
--- NOTE | 2018-08-17 17:31 | P.PN ---
Subjective Progress Note Date: 08/17/18 Principal diagnosis: MRSA / aspiration pneumonia The patient remains to be afebrile , the patient is more awake and alert today and also been some simple questions by noding her head, the patient is currently hemodynamically stable not requiring any pressors support did have goo d urine output still have some diarrhea but not worsening amount Objective - Vital Signs Vital signs: Vital Signs Temp 98.7 F 08/17/18 16:00 Pulse 74 08/17/18 17:00 Resp 34 H 08/17/18 17:00 BP 95/59 08/17/18 17:00 Pulse Ox 95 08/17/18 17:00 Intake & Output 08/16/18 08/17/18 08/17/18 18:59 06:59 18:59 Intake Total 697.581 853.902 670.863 Output Total 870 1240 2030 Balance -172.419 -386.098 -1359.137 Weight 96.4 kg 97.6 kg 97.6 kg Intake: IV 342 192 226 Ceftaroline Fosamil 200 50 mg In Sodium Chloride 0.9 % 50 ml @ 100 mls/hr IVPB Q12H [facility] Rx#:[id number] Fluconazole in NaCl,Iso- 100 50 Osm 100 mg In Saline 1 50ml.bag @ 50 mls/hr IVPB DAILY [facility] Rx#:[id number] KVO 120 120 110 Normal Saline Pressure 72 72 66 bag Intake, IV Titration 295.581 166.902 54.863 Amount Furosemide 100 mg In 186.5 100 Sodium Chloride 0.9% 90 ml @ 10 MG/HR 10 mls/hr IV .Q10H [facility] Rx#: [id number] Propofol 1,000 mg In 109.081 66.902 54.863 Empty Bag 1 bag @ Titrate IV .Q0M [facility] Rx#: [id number] Tube Feeding 60 405 330 Other 90 60 Output: Urine 870 1240 1130 Stool 900 Other: Voiding Method Indwelling Catheter Indwelling Catheter Indwelling Catheter ABP, PAP, CO, CI - Last Documented Arterial Blood Pressure 101/47 - Exam GENERAL DESCRIPTION:[ Middle-aged female intubated through the trach on the vent] HEENT: [Patient is orally intubated and limited examination of the oral cavity] EYES : [No pallor or scleral icterus] RESPIRATORY SYSTEM: [Unlabored breathing decreased breath sound at the base] CARDIA VASCULAR SYSTEM: [S1-S2 regular rate and rhythm no murmur] GI: [Abdominal soft there's no tenderness no organomegaly] EXTREMITIES: [No edema feet] - Labs CBC & Chem 7: 08/17/18 04:10 08/17/18 04:10 Labs: Abnormal Lab Results - Last 24 Hours (Table) 08/16/18 08/17/18 08/17/18 Range/Units 23:45 00:39 04:10 WBC (3.8-10.6) k/uL RBC (3.80-5.40) m/uL Hgb (11.4-16.0) gm/dL Hct (34.0-46.0) % RDW (11.5-15.5) % Plt Count (150-450) k/uL Neutrophils # (1.3-7.7) k/uL Lymphocytes # (1.0-4.8) k/uL ABG HCO3 (21-25) mmol/L ABG Total CO2 (19-24) mmol/L BUN 81 H (7-17) mg/dL Creatinine 2.81 H (0.52-1.04) mg/dL Glucose 131 H (74-99) mg/dL POC Glucose (mg/dL) 126 H 129 H (75-99) mg/dL Calcium 7.5 L (8.4-10.2) mg/dL 08/17/18 08/17/18 08/17/18 Range/Units 04:10 05:30 05:44 WBC 15.6 H (3.8-10.6) k/uL RBC 2.49 L (3.80-5.40) m/uL Hgb 7.3 L (11.4-16.0) gm/dL Hct 22.3 L (34.0-46.0) % RDW 17.5 H (11.5-15.5) % Plt Count 142 L (150-450) k/uL Neutrophils # 14.8 H (1.3-7.7) k/uL Lymphocytes # 0.3 L (1.0-4.8) k/uL ABG HCO3 26 H (21-25) mmol/L ABG Total CO2 28 H (19-24) mmol/L BUN (7-17) mg/dL Creatinine (0.52-1.04) mg/dL Glucose (74-99) mg/dL POC Glucose (mg/dL) 143 H (75-99) mg/dL Calcium (8.4-10.2) mg/dL 08/17/18 Range/Units 12:00 WBC (3.8-10.6) k/uL RBC (3.80-5.40) m/uL Hgb (11.4-16.0) gm/dL Hct (34.0-46.0) % RDW (11.5-15.5) % Plt Count (150-450) k/uL Neutrophils # (1.3-7.7) k/uL Lymphocytes # (1.0-4.8) k/uL ABG HCO3 (21-25) mmol/L ABG Total CO2 (19-24) mmol/L BUN (7-17) mg/dL Creatinine (0.52-1.04) mg/dL Glucose (74-99) mg/dL POC Glucose (mg/dL) 116 H (75-99) mg/dL Calcium (8.4-10.2) mg/dL Microbiology - Last 24 Hours (Table) 08/14/18 10:19 Blood Culture - Preliminary Blood No Growth after 72 hours Assessment and Plan Assessment: 1-patient with left upper lobe pneumonia with a sputum culture has been finalized as MRSA , subsequent worsening of her clinical condition and cardiac arrest and status post resuscitation and intubation with a complaint of possible aspiration pneumonia, s/p bronchoscopy----bronchoscopy cultures grew Inga only--- patient could not be extubated hence scheduled for trach and PEG , patient underlying MRSA pneumonia has been adequately treated with more than 2 week course of IV antibiotic therapy 3-patient with significant diarrhea, antibiotic associated ,stool for C. diff is negative , diarrhea slightly decreased in amount 4- leukocytosis more likely secondary steroids have shown a downward trend (1) Sepsis Current Visit: Yes Status: Acute Code(s): A41.9 - SEPSIS, UNSPECIFIED ORGANISM SNOMED Code(s): 87875745 (2) Nosocomial pneumonia Current Visit: Yes Status: Acute Code(s): J18.9 - PNEUMONIA, UNSPECIFIED ORGANISM; Y95 - NOSOCOMIAL CONDITION SNOMED Code(s): 511183934 Plan: 1- we will discontinue Teflaro and continue with Flagyl 500 every 8 hours for few more days 2- Diflucan for possible oropharyngeal candidiasis 3- add Questran for persistant diarrhea Time with Patient: Less than 30
[2018-08-17 18:05] LABS: Glucose,Whole Blood 133 mg/dL (75-99)
[2018-08-17] MEDS: CHOLESTYRAMINE (WITH SUGAR) 4 GM PACKET PEG/G-TUBE SCH (18:16)
[2018-08-17] MEDS: QUEtiapine 200 MG TAB PO SCH (20:58)
[2018-08-17] MEDS: AMITRIPTYLINE HCL 50 MG TAB PO SCH (20:58)
[2018-08-17] MEDS: IPRATROPIUM-ALBUTEROL 3 ML NEB INHALATION PRN (23:15)
[2018-08-17 23:51] LABS: Glucose,Whole Blood 154 mg/dL (75-99)
[2018-08-18] MEDS: FUROSEMIDE 100 MG in SODIUM CHLORIDE 0.9% 90 ML IV SCH ×3 (04:14→22:40)
[2018-08-18 04:48] LABS: Anisocytosis Slight; Basophils % (A) 0 %; Eosinophils % (A) 0 %; Hypochromasia Slight; Lymphocytes # (A) 0.3 k/uL (1.0-4.8); Lymphocytes % (A) 2 %; MCH 28.9 pg (25.0-35.0); MCHC 32.3 g/dL (31.0-37.0); MCV 89.5 fL (80.0-100.0); Mean Platelet Volume 9.2; Monocytes # (A) 0.6 k/uL (0-1.0); Monocytes % (A) 4 %; Neutrophils # (A) 15.7 k/uL (1.3-7.7); Neutrophils % (A) 94 %; Platelet Count 126 k/uL (150-450); RBC 2.35 m/uL (3.80-5.40); RDW 17.5 % (11.5-15.5); WBC 16.7 k/uL (3.8-10.6)
[2018-08-18 04:51] LABS: Albumin 2.3 g/dL (3.5-5.0); Calcium 7.6 mg/dL (8.4-10.2); Magnesium 1.9 mg/dL (1.6-2.3); Phosphorus 7.8 mg/dL (2.5-4.5); Potassium 4.4 mmol/L (3.5-5.1); Total Bilirubin 0.9 mg/dL (0.2-1.3); Total Protein 4.8 g/dL (6.3-8.2)
[2018-08-18 04:52] LABS: ABG Base Excess 0.8 mmol/L; ABG HCO3 26 mmol/L (21-25); ABG PCO2 40 mmHg (35-45); ABG PH 7.41 (7.35-7.45); ABG PO2 133 mmHg (83-108); ABG TCO2 27 mmol/L (19-24)
[2018-08-18 04:57] LABS: HGB 6.8 gm/dL (11.4-16.0)
[2018-08-18 06:17] LABS: Glucose,Whole Blood 145 mg/dL (75-99)
[2018-08-18] MEDS: CALCIUM ACETATE 667 MG CAP PO SCH ×3 (06:20→15:41)
[2018-08-18] MEDS: LEVOTHYROXINE 75 MCG TAB PEG/G-TUBE SCH (06:20)
[2018-08-18] MEDS: methylPREDNISolone SOD SUCCI 125 MG/2 ML VIAL IV SCH ×2 (06:20)
[2018-08-18] MEDS: INSULIN ASPART (NovoLOG) 100 UNIT/ML VIAL SQ SCH ×4 (06:21→18:13)
[2018-08-18] MEDS: IPRATROPIUM-ALBUTEROL 3 ML NEB INHALATION SCH ×4 (07:12→19:25)
--- NOTE | 2018-08-18 07:23 | XR ---
EXAMINATION TYPE: XR chest 1V portable DATE OF EXAM: 08/18/2018 COMPARISON: 08/17/2018 HISTORY: Shortness breath FINDINGS: There are bilateral pleural effusions with cardiomegaly and bibasilar infiltrate. There is a diffuse interstitial pattern. Dialysis catheter stable in position. Left-sided central line and tracheostomy tube stable. Arthropathy of the shoulders. IMPRESSION: 1. Stable findings compatible with diffuse airspace disease. Differential diagnosis would include pul monary edema or diffuse pneumonia.
[2018-08-18] MEDS: methylPREDNISolone SOD SUCCI 40 MG/ML 1 ML VIAL IV SCH ×2 (08:21→15:40)
[2018-08-18] MEDS: HEPARIN SODIUM,PORCINE 5,000 UNIT/ML 1 ML VIAL SQ SCH ×2 (08:22→20:06)
[2018-08-18] MEDS: CHLORHEXIDINE GLUCONATE 15 ML CUP MUCOUS MEM SCH ×2 (08:22→20:06)
[2018-08-18] MEDS: PANTOPRAZOLE 40 MG/10 ML VIAL IVP SCH ×2 (08:22→20:06)
[2018-08-18] MEDS: FOLIC ACID 1 MG TAB PO SCH (08:23)
[2018-08-18] MEDS: ATORVASTATIN 40 MG TAB PO SCH (08:23)
[2018-08-18] MEDS: metroNIDAZOLE 500 MG TAB OG-TUBE SCH ×3 (08:23→20:06)
[2018-08-18] MEDS: ASPIRIN 81 MG PO SCH (08:23)
[2018-08-18] MEDS: FLUCONAZOLE IN NACL,ISO-OSM 100 MG in SALINE 1 50ML.BAG IVPB SCH (08:23)
[2018-08-18] MEDS: CLOPIDOGREL 75 MG TAB PO SCH (08:23)
[2018-08-18] MEDS: SERTRALINE 100 MG TAB PO SCH (08:24)
[2018-08-18] MEDS: CHOLESTYRAMINE (WITH SUGAR) 4 GM PACKET PEG/G-TUBE SCH ×2 (08:24→15:41)
--- NOTE | 2018-08-18 09:08 | P.PN ---
Subjective Patient is seen in follow-up for acute kidney injury. Her baseline creatinine is near 1. Patient required hemodialysis this admission. Last treatment was on August 15. She is currently maintained on Lasix drip. Urine output has been over 100 mL an hour. She underwent tracheostomy this admission. Creatinine today is 3.22. Hemoglobin is 6.8 and she is receiving 1 unit of blood transfusion. She is also on tube feeding. Vital signs are stable. General: The patient appeared well nourished and normally developed. Tracheostomy noted. HEENT: Head exam is unremarkable. Neck is without jugular venous distension. LUNGS: Lungs are clear to auscultation and percussion. Breath sounds decreased. HEART: Rate and Rhythm are regular. First and second heart sounds normal. No murmurs, rubs or gallops. ABDOMEN: Abdominal exam reveals normal bowel sounds. Nontender. EXTREMITITES: 1+ edema. Objective - Vital Signs Vital signs: Vital Signs Temp 97.9 F 08/18/18 07:40 Pulse 75 08/18/18 07:40 Resp 24 08/18/18 07:40 BP 132/59 08/18/18 07:40 Pulse Ox 97 08/18/18 07:10 Intake & Output 08/17/18 08/18/18 08/18/18 18:59 06:59 18:59 Intake Total 300.436 2903.783 46 Output Total 2170 1805 175 Balance -1362.970 -797.217 -129 Weight 97.6 kg 92.8 kg Intake: IV 242 192 16 Fluconazole in NaCl,Iso- 50 Osm 100 mg In Saline 1 50ml.bag @ 50 mls/hr IVPB DAILY [facility] Rx#:[id number] KVO 120 120 10 Normal Saline Pressure 72 72 6 bag Intake, IV Titration 145.030 365.783 Amount Furosemide 100 mg In 90.167 99.667 Sodium Chloride 0.9% 90 ml @ 10 MG/HR 10 mls/hr IV .Q10H [facility] Rx#: [id number] Propofol 1,000 mg In 54.863 266.116 Empty Bag 1 bag @ Titrate IV .Q0M [facility] Rx#: [id number] Tube Feeding 360 360 30 Blood Product 0 Rc As-1 Unit 0 [id number] Other 60 90 Output: Urine 1270 1705 175 Stool 900 100 Other: Voiding Method Indwelling Catheter Indwelling Catheter ABP, PAP, CO, CI - Last Documented Arterial Blood Pressure 128/57 - Labs CBC & Chem 7: 08/18/18 04:05 08/18/18 04:05 Labs: Abnormal Lab Results - Last 24 Hours (Table) 08/15/18 08/17/18 08/17/18 Range/Units 10:15 12:00 18:02 WBC (3.8-10.6) k/uL RBC (3.80-5.40) m/uL Hgb (11.4-16.0) gm/dL Hct (34.0-46.0) % RDW (11.5-15.5) % Plt Count (150-450) k/uL Neutrophils # (1.3-7.7) k/uL Lymphocytes # (1.0-4.8) k/uL ABG pO2 (83-108) mmHg ABG HCO3 (21-25) mmol/L ABG Total CO2 (19-24) mmol/L ABG O2 Saturation (94-97) % BUN (7-17) mg/dL Creatinine (0.52-1.04) mg/dL Glucose (74-99) mg/dL POC Glucose (mg/dL) 116 H 133 H (75-99) mg/dL Calcium (8.4-10.2) mg/dL Phosphorus (2.5-4.5) mg/dL Total Protein (6.3-8.2) g/dL Albumin (3.5-5.0) g/dL Crossmatch See Detail 08/17/18 08/18/18 08/18/18 Range/Units 23:48 04:05 04:05 WBC 16.7 H (3.8-10.6) k/uL RBC 2.35 L (3.80-5.40) m/uL Hgb 6.8 L* (11.4-16.0) gm/dL Hct 21.0 L (34.0-46.0) % RDW 17.5 H (11.5-15.5) % Plt Count 126 L (150-450) k/uL Neutrophils # 15.7 H (1.3-7.7) k/uL Lymphocytes # 0.3 L (1.0-4.8) k/uL ABG pO2 (83-108) mmHg ABG HCO3 (21-25) mmol/L ABG Total CO2 (19-24) mmol/L ABG O2 Saturation (94-97) % BUN 97 H (7-17) mg/dL Creatinine 3.22 H (0.52-1.04) mg/dL Glucose 130 H (74-99) mg/dL POC Glucose (mg/dL) 154 H (75-99) mg/dL Calcium 7.6 L (8.4-10.2) mg/dL Phosphorus 7.8 H (2.5-4.5) mg/dL Total Protein 4.8 L (6.3-8.2) g/dL Albumin 2.3 L (3.5-5.0) g/dL Crossmatch 08/18/18 08/18/18 Range/Units 04:48 06:15 WBC (3.8-10.6) k/uL RBC (3.80-5.40) m/uL Hgb (11.4-16.0) gm/dL Hct (34.0-46.0) % RDW (11.5-15.5) % Plt Count (150-450) k/uL Neutrophils # (1.3-7.7) k/uL Lymphocytes # (1.0-4.8) k/uL ABG pO2 133 H (83-108) mmHg ABG HCO3 26 H (21-25) mmol/L ABG Total CO2 27 H (19-24) mmol/L ABG O2 Saturation 99.0 H (94-97) % BUN (7-17) mg/dL Creatinine (0.52-1.04) mg/dL Glucose (74-99) mg/dL POC Glucose (mg/dL) 145 H (75-99) mg/dL Calcium (8.4-10.2) mg/dL Phosphorus (2.5-4.5) mg/dL Total Protein (6.3-8.2) g/dL Albumin (3.5-5.0) g/dL Crossmatch Microbiology - Last 24 Hours (Table) 08/14/18 10:19 Blood Culture - Preliminary Blood No Growth after 72 hours Assessment and Plan Plan: Assessment: 1. Acute kidney injury secondary to ATN secondary to sepsis. Baseline c reatinine is near 1. It was 2.81 yesterday and is 3.22 today. Last hemodialysis was on August 15. C3 level was noted to be slightly low and rest of the serologies have been negative. 2. Septic shock secondary to pneumonia. Maintained on antibiotics and antifungal per infectious disease. 3. Acute blood loss anemia with no active bleeding. Hemoglobin 6.8 today. Maintained on Aranesp. 4. Volume overload maintained on Lasix drip. 5. Acute hypoxic respiratory failure secondary to pneumonia. Status post tracheostomy this admission. 6. Hyperphosphatemia secondary to acute kidney injury maintained on PhosLo. Plan: Maintain Lasix drip at 10 mL an hour. Patient scheduled to receive 1 unit of blood transfusion today. IV DDAVP 1 today. Hold off on hemodialysis today. Continue to monitor renal function and urine output.
--- NOTE | 2018-08-18 09:28 | P.PN ---
Subjective Progress Note Date: 08/18/18 Principal diagnosis: Altered mental status, weakness More awake and alert. Daughter at bedside. No new neuro c/o. Objective - Vital Signs Vital signs: Vital Signs Temp 97.9 F 08/18/18 07:40 Pulse 75 08/18/18 07:40 Resp 24 08/18/18 07:40 BP 132/59 08/18/18 07:40 Pulse Ox 97 08/18/18 07:10 Intake & Output 08/17/18 08/18/18 08/18/18 18:59 06:59 18:59 Intake Total 224.404 0768.783 46 Output Total 2170 1805 175 Balance -1362.970 -797.217 -129 Weight 97.6 kg 92.8 kg Intake: IV 242 192 16 Fluconazole in NaCl,Iso- 50 Osm 100 mg In Saline 1 50ml.bag @ 50 mls/hr IVPB DAILY [facility] Rx#:[id number] KVO 120 120 10 Normal Saline Pressure 72 72 6 bag Intake, IV Titration 145.030 365.783 Amount Furosemide 100 mg In 90.167 99.667 Sodium Chloride 0.9% 90 ml @ 10 MG/HR 10 mls/hr IV .Q10H [facility] Rx#: [id number] Propofol 1,000 mg In 54.863 266.116 Empty Bag 1 bag @ Titrate IV .Q0M [facility] Rx#: [id number] Tube Feeding 360 360 30 Blood Product 0 Rc As-1 Unit 0 [id number] Other 60 90 Output: Urine 1270 1705 175 Stool 900 100 Other: Voiding Method Indwelling Catheter Indwelling Catheter ABP, PAP, CO, CI - Last Documented Arterial Blood Pressure 128/57 - Exam Gen NAD Pleasant and cooperative MS Awake and alert Able to open and close eyes and raise eyebrows on command CN PERRL Tracks examiner with eyes EOMI no nystagmus Blinks to threat bilaterally No facial asymmetry +Cough/gag Motor Normal bulk/tone No tremors 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 no other spontaneous limb movements Sens Grimaces to nailbed stim x4 no obvious neglect Coord No ocular dysmetria; appendicular coordination cannot be tested due to existing motor weakness DTRs 0/4 throughout Gait Cannot test due to weakness - Labs CBC & Chem 7: 08/18/18 04:05 08/18/18 04:05 Labs: Abnormal Lab Results - Last 24 Hours (Table) 08/15/18 08/17/18 08/17/18 Range/Units 10:15 12:00 18:02 WBC (3.8-10.6) k/uL RBC (3.80-5.40) m/uL Hgb (11.4-16.0) gm/dL Hct (34.0-46.0) % RDW (11.5-15.5) % Plt Count (150-450) k/uL Neutrophils # (1.3-7.7) k/uL Lymphocytes # (1.0-4.8) k/uL ABG pO2 (83-108) mmHg ABG HCO3 (21-25) mmol/L ABG Total CO2 (19-24) mmol/L ABG O2 Saturation (94-97) % BUN (7-17) mg/dL Creatinine (0.52-1.04) mg/dL Glucose (74-99) mg/dL POC Glucose (mg/dL) 116 H 133 H (75-99) mg/dL Calcium (8.4-10.2) mg/dL Phosphorus (2.5-4.5) mg/dL Total Protein (6.3-8.2) g/dL Albumin (3.5-5.0) g/dL TSH (0.465-4.680) mIU/L Crossmatch See Detail 08/17/18 08/18/18 08/18/18 Range/Units 23:48 04:05 04:05 WBC 16.7 H (3.8-10.6) k/uL RBC 2.35 L (3.80-5.40) m/uL Hgb 6.8 L* (11.4-16.0) gm/dL Hct 21.0 L (34.0-46.0) % RDW 17.5 H (11.5-15.5) % Plt Count 126 L (150-450) k/uL Neutrophils # 15.7 H (1.3-7.7) k/uL Lymphocytes # 0.3 L (1.0-4.8) k/uL ABG pO2 (83-108) mmHg ABG HCO3 (21-25) mmol/L ABG Total CO2 (19-24) mmol/L ABG O2 Saturation (94-97) % BUN 97 H (7-17) mg/dL Creatinine 3.22 H (0.52-1.04) mg/dL Glucose 130 H (74-99) mg/dL POC Glucose (mg/dL) 154 H (75-99) mg/dL Calcium 7.6 L (8.4-10.2) mg/dL Phosphorus 7.8 H (2.5-4.5) mg/dL Total Protein 4.8 L (6.3-8.2) g/dL Albumin 2.3 L (3.5-5.0) g/dL TSH (0.465-4.680) mIU/L Crossmatch 08/18/18 08/18/18 08/18/18 Range/Units 04:05 04:48 06:15 WBC (3.8-10.6) k/uL RBC (3.80-5.40) m/uL Hgb (11.4-16.0) gm/dL Hct (34.0-46.0) % RDW (11.5-15.5) % Plt Count (150-450) k/uL Neutrophils # (1.3-7.7) k/uL Lymphocytes # (1.0-4.8) k/uL ABG pO2 133 H (83-108) mmHg ABG HCO3 26 H (21-25) mmol/L ABG Total CO2 27 H (19-24) mmol/L ABG O2 Saturation 99.0 H (94-97) % BUN (7-17) mg/dL Creatinine (0.52-1.04) mg/dL Glucose (74-99) mg/dL POC Glucose (mg/dL) 145 H (75-99) mg/dL Calcium (8.4-10.2) mg/dL Phosphorus (2.5-4.5) mg/dL Total Protein (6.3-8.2) g/dL Albumin (3.5-5.0) g/dL TSH 0.382 L (0.465-4.680) mIU/L Crossmatch Microbiology - Last 24 Hours (Table) 08/14/18 10:19 Blood Culture - Preliminary Blood No Growth after 72 hours Assessment and Plan Assessment: Altered mental status h/o respiratory failure with anoxic encephalopathy- much improved. Diffuse weakness with prolonged hospitalization and diffuse hyporreflexia, consistent with polyneuropathy of critical illness. Plan: -Continue supportive care. Minimize sedation. -Since patient continues to improve clinically, do not recommend new neuro testing at this time. -Given her prolonged hospitalization and immobilization, her diffuse weakness is consistent with polyneuropathy of critical illness. Anticipate extensive rehabilitation once discharged from acute stay. -Will follow periodically. I have d/w patient/family all my clinical impressions and recs. All questions answered. Time with Patient: Less than 30 (Time spent in direct patient care, greater than 50% of which was spent in [id number] counseling and coordination of care: 25 minutes.)
[2018-08-18] MEDS ORDERED: DESMOPRESSIN ACETATE 28 MCG in SODIUM CHLORIDE 0.9% 50 ML IVPB ONE (09:30)
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
--- NOTE | 2018-08-18 10:22 | PN ---
PROGRESS NOTE Mrs. Nick is a 63-year-old female who presented with pneumonia, respiratory failure requiring prolonged mechanical ventilation. Subsequently, she had a trach and PEG. She was on the BiPAP yesterday. She has not underwent dialysis. She has continued to be on the IV Lasix drip. Hemodynamically, she has been stable. She is awake, following command. She continues on aspirin once a day, Lipitor 40 mg daily, Plavix 75 mg daily, Lasix drip, insulin, levothyroxine, Seroquel, Zoloft. PHYSICAL EXAMINATION: Blood pressure 136/70 with a heart rate in the 70s. LUNGS: Clear to auscultation anteriorly. HEART: Regular rate and rhythm, S1, S2. No S3. No rub appreciated with a systolic murmur. ABDOMEN: Soft, nontender. Positive bowel sounds, no organomegaly. EXTREMITIES: Trace to 1+ edema. LAB DATA: Revealed a hemoglobin of 6.8, white blood cells 16.7, BUN and creatinine 97 and 3.22. IMPRESSION: 1. Respiratory failure with pneumonia. 2. Prolonged ventilation. Patient has tracheostomy. 3. History of coronary artery disease, stable. 4. Renal failure with acute kidney injury. 5. Anemia. RECOMMENDATION: I will continue present regimen from the cardiac standpoint. She is stable from the cardiac standpoint. Will see her as needed. Please feel free to call us for any question. MMODL / IJN: [id number] /
--- NOTE | 2018-08-18 11:29 | P.PN ---
Subjective Progress Note Date: 08/18/18 Principal diagnosis: pneumonia Patient is a 63-year-old female with a past medical history of COPD, DVT, GERD, hypertension, dyslipidemia, and asthma who presented with confusion. In the ER she underwent an extensive evaluation. CT of the head was unremarkable. She was found to have a right upper lobe pneumonia and she was started on antibiotics. Infectious disease was consulted who recommended maintaining antibiotics. Pulmonary was consulted. Sputum culture was obtained which showed probable MRSA. Zosyn was stopped and she was started on Teflaro due to inability to take Zyvox because of SSRI. Nephrology was consulted due to acute kidney injury. They stopped her Lasix, lisinopril, and Toradol. On the morning of 08/06 she went into respiratory distress necessitating intubation, she then had a PEA arrests and total down time was less than 10 minutes. She was moved to the ICU and had a central line placed and was started on norepinephrine. She underwent bronchoscopy with bronchial alveolar lavage. Chest x-ray showed pulmonary infiltrate. Clindamycin was initiated. She had decreased renal function after her code. She was started on a bicarb drip. She was found to have increased PA pressures and new pulmonary hypertension and the concern was for possible pulmonary embolism she was started on IV heparin. She had not made significant improvement in her renal function and was subsequently started on dialysis. She had 3 treatments of dialysis. Neurology was consulted who felt this was likely secondary to toxic metabolic encephalopathy but could have underlying anoxic encephalopathy. She had a trach and PEG placed on 08/12/18 and tolerated this well. She was starting to wake up after being taken off all sedatives on 08/13. However overnight on 08/14 she went into respiratory distress requiring propofol and to be placed back on the vent. She also had a drop in hemoglobin and required 1 unit of pRBC. She again had dialysis on 08/14 and 08/15. She required 1 additional unit of pRBC on 08/15. She had permanent HD cath placed on 08/16. 08/17/18 pt is on sedation holiday, she opens her eyes and slightly responds to stimulation. trached , remains afebrile 08/18/2018 Patient is not sedated, she is much more awake, answers questions with nodding her head. Blood pressure stable, no gross bleeding. Family at bedside. Objective - Vital Signs Vital signs: Vital Signs Temp 97.9 F 08/18/18 07:40 Pulse 78 08/18/18 11:16 Resp 28 H 08/18/18 11:00 BP 132/59 08/18/18 07:40 Pulse Ox 93 L 08/18/18 11:00 Intake & Output 08/17/18 08/18/18 08/18/18 18:59 06:59 18:59 Intake Total 263.789 4425.783 226 Output Total 2170 1805 775 Balance -1362.970 -797.217 -549 Weight 97.6 kg 92.8 kg Intake: IV 242 192 66 Fluconazole in NaCl,Iso- 50 50 Osm 100 mg In Saline 1 50ml.bag @ 50 mls/hr IVPB DAILY [facility] Rx#:[id number] KVO 120 120 10 Normal Saline Pressure 72 72 6 bag Intake, IV Titration 145.030 365.783 50 Amount Desmopressin Acetate 28 50 mcg In Sodium Chloride 0. 9% 50 ml @ 200 mls/hr IVPB ONCE ONE Rx#: [id number] Furosemide 100 mg In 90.167 99.667 Sodium Chloride 0.9% 90 ml @ 10 MG/HR 10 mls/hr IV .Q10H [facility] Rx#: [id number] Propofol 1,000 mg In 54.863 266.116 Empty Bag 1 bag @ Titrate IV .Q0M [facility] Rx#: [id number] Tube Feeding 360 360 110 Blood Product 0 Rc As-1 Unit 0 [id number] Other 60 90 Output: Urine 1270 1705 775 Stool 900 100 Other: Voiding Method Indwelling Catheter Indwelling Catheter Indwelling Catheter ABP, PAP, CO, CI - Last Documented Arterial Blood Pressure 145/69 - Exam General: Awake, not in distress. Derm: multiple areas of ecchymosis Head: atraumatic, normocephalic Eyes: EOMI, anicteric sclera Mouth: no lip lesion, trach in place without bleeding Cardiovascular: S1S2 reg, no murmur, rubs or gallops Lungs: decreased breath Sounds bilaterally, no rhonchi, no rales , R sided HD catheter in place Abdominal: soft, nontender to palpation, no guarding, PEG in place without signs of bleeding Ext: no gross muscle atrophy, 1+ edema Neuro: opens eyes and nods her head - Labs CBC & Chem 7: 08/18/18 04:05 08/18/18 04:05 Labs: Abnormal Lab Results - Last 24 Hours (Table) 08/15/18 08/17/18 08/17/18 Range/Units 10:15 12:00 18:02 WBC (3.8-10.6) k/uL RBC (3.80-5.40) m/uL Hgb (11.4-16.0) gm/dL Hct (34.0-46.0) % RDW (11.5-15.5) % Plt Count (150-450) k/uL Neutrophils # (1.3-7.7) k/uL Lymphocytes # (1.0-4.8) k/uL ABG pO2 (83-108) mmHg ABG HCO3 (21-25) mmol/L ABG Total CO2 (19-24) mmol/L ABG O2 Saturation (94-97) % BUN (7-17) mg/dL Creatinine (0.52-1.04) mg/dL Glucose (74-99) mg/dL POC Glucose (mg/dL) 116 H 133 H (75-99) mg/dL Calcium (8.4-10.2) mg/dL Phosphorus (2.5-4.5) mg/dL Total Protein (6.3-8.2) g/dL Albumin (3.5-5.0) g/dL TSH (0.465-4.680) mIU/L Crossmatch See Detail 08/17/18 08/18/18 08/18/18 Range/Units 23:48 04:05 04:05 WBC 16.7 H (3.8-10.6) k/uL RBC 2.35 L (3.80-5.40) m/uL Hgb 6.8 L* (11.4-16.0) gm/dL Hct 21.0 L (34.0-46.0) % RDW 17.5 H (11.5-15.5) % Plt Count 126 L (150-450) k/uL Neutrophils # 15.7 H (1.3-7.7) k/uL Lymphocytes # 0.3 L (1.0-4.8) k/uL ABG pO2 (83-108) mmHg ABG HCO3 (21-25) mmol/L ABG Total CO2 (19-24) mmol/L ABG O2 Saturation (94-97) % BUN 97 H (7-17) mg/dL Creatinine 3.22 H (0.52-1.04) mg/dL Glucose 130 H (74-99) mg/dL POC Glucose (mg/dL) 154 H (75-99) mg/dL Calcium 7.6 L (8.4-10.2) mg/dL Phosphorus 7.8 H (2.5-4.5) mg/dL Total Protein 4.8 L (6.3-8.2) g/dL Albumin 2.3 L (3.5-5.0) g/dL TSH (0.465-4.680) mIU/L Crossmatch 08/18/18 08/18/18 08/18/18 Range/Units 04:05 04:48 06:15 WBC (3.8-10.6) k/uL RBC (3.80-5.40) m/uL Hgb (11.4-16.0) gm/dL Hct (34.0-46.0) % RDW (11.5-15.5) % Plt Count (150-450) k/uL Neutrophils # (1.3-7.7) k/uL Lymphocytes # (1.0-4.8) k/uL ABG pO2 133 H (83-108) mmHg ABG HCO3 26 H (21-25) mmol/L ABG Total CO2 27 H (19-24) mmol/L ABG O2 Saturation 99.0 H (94-97) % BUN (7-17) mg/dL Creatinine (0.52-1.04) mg/dL Glucose (74-99) mg/dL POC Glucose (mg/dL) 145 H (75-99) mg/dL Calcium (8.4-10.2) mg/dL Phosphorus (2.5-4.5) mg/dL Total Protein (6.3-8.2) g/dL Albumin (3.5-5.0) g/dL TSH 0.382 L (0.465-4.680) mIU/L Crossmatch Microbiology - Last 24 Hours (Table) 08/14/18 10:19 Blood Culture - Preliminary Blood No Growth after 72 hours Assessment and Plan Plan: Assessment and Plan MRSA pneumonia, Acute hypoxic respiratory failure, akash in sputum - worsening leukocytosis up to 17,000 08/16/17 now steady at 15-16 -On Teflaro, fluconazole, and flagyl Appreciate ID input, Teflaro discontinued, continued on Flagyl and Diflucan for possible oropharyngeal candidiasis. -Pulmonary hygiene Antibiotic associate diarrhea - c diff negative - flagyl continued ID following - maintain fecal management system , rectal tube - off colace Started Questran per ID Anemia, multifactoral - suspect dilutional, + FOB, but no active bleeding - s/p 2 units pRBC - Transfused 1 unit of packed RBCs today 08/18/2018 - CBC down to 6.8 today continue aranesp Acute hypoxic respiratory failure -Status post tracheostomy -Vent management per pulmonary, continue to monitor clinically better. Acute kidney injury requiring hemodialysis -Nephrology recommendations appreciated: HD on hold for now Status post permanent cath 08/16/2018 -Avoid nephrotoxins -On PhosLo Monitoring for renal recovery Serum creatinine slightly increasing, 3.2 today compared to 2.8 08/17/2018 compared to 2.4 08/16/2018 Patient is continued on Lasix drip, with good urine output. COPD with exacerbation Continue oxygen, bronchodilators IV antibiotics and IV Solu-Medrol Essential Hypertension, controlled -Following blood pressures -not on pressors -Off Norvasc, metoprolol, and lisinopril Hypothyroidism -Continue with Synthroid therapy Chronic pain syndrome -Status post removal of pain pump - consider lortab elixir for pain if needed. Severe pulmonary hypertension -Management per pulmonary, on IV Lasix drip Critical illness polyneuropathy, with altered mental status secondary to respiratory failure and anoxic encephalopathic Appreciate neurology input Weakness: -PT/OT - LTAC pending , next week HLD: continue Lipitor History of closed head injury Aborted sudden cardiac with PEA Septic shock, resolved DVT prophylaxis: heparin GI prophylaxis: on Protonix Discussed with: nurse and family at bedside Anticipated discharge: 5-[address]: LT[facility]
[2018-08-18] MEDS: PROPOFOL 1,000 MG in EMPTY BAG 1 BAG IV SCH ×3 (12:14→22:40)
[2018-08-18 12:18] LABS: Glucose,Whole Blood 150 mg/dL (75-99)
[2018-08-18 18:08] LABS: Glucose,Whole Blood 133 mg/dL (75-99)
[2018-08-18] MEDS: AMITRIPTYLINE HCL 50 MG TAB PO SCH (20:06)
[2018-08-18] MEDS: QUEtiapine 200 MG TAB PO SCH (20:06)
--- NOTE | 2018-08-18 21:54 | P.PN ---
Subjective Progress Note Date: 08/18/18 Principal diagnosis: MRSA / aspiration pneumonia The patient is afebrile , the patient awake and alert today and also been some simple questions by noding her head, the patient is hemodynamically stable not requiring any pressors support , the patient continue to have good urine output , diarrhea has slowed down Objective - Vital Signs Vital signs: Vital Signs Temp 97.9 F 08/18/18 07:40 Pulse 78 08/18/18 11:16 Resp 28 H 08/18/18 11:00 BP 132/59 08/18/18 07:40 Pulse Ox 93 L 08/18/18 11:00 Intake & Output 08/17/18 08/18/18 08/18/18 18:59 06:59 18:59 Intake Total 071.423 3724.783 226 Output Total 2170 1805 775 Balance -1362.970 -797.217 -549 Weight 97.6 kg 92.8 kg Intake: IV 242 192 66 Fluconazole in NaCl,Iso- 50 50 Osm 100 mg In Saline 1 50ml.bag @ 50 mls/hr IVPB DAILY [facility] Rx#:[id number] KVO 120 120 10 Normal Saline Pressure 72 72 6 bag Intake, IV Titration 145.030 365.783 50 Amount Desmopressin Acetate 28 50 mcg In Sodium Chloride 0. 9% 50 ml @ 200 mls/hr IVPB ONCE ONE Rx#: [id number] Furosemide 100 mg In 90.167 99.667 Sodium Chloride 0.9% 90 ml @ 10 MG/HR 10 mls/hr IV .Q10H [facility] Rx#: [id number] Propofol 1,000 mg In 54.863 266.116 Empty Bag 1 bag @ Titrate IV .Q0M [facility] Rx#: [id number] Tube Feeding 360 360 110 Blood Product 0 Rc As-1 Unit 0 [id number] Other 60 90 Output: Urine 1270 1705 775 Stool 900 100 Other: Voiding Method Indwelling Catheter Indwelling Catheter Indwelling Catheter ABP, PAP, CO, CI - Last Documented Arterial Blood Pressure 145/69 - Exam GENERAL DESCRIPTION:[ Middle-aged female intubated through the trach on the vent] HEENT: [Patient is orally intubated and limited examination of the oral cavity] EYES : [No pallor or scleral icterus] RESPIRATORY SYSTEM: [Unlabored breathing decreased breath sound at the base] CARDIA VASCULAR SYSTEM: [S1-S2 regular rate and rhythm no murmur] GI: [Abdominal soft there's no tenderness no organomegaly] EXTREMITIES: [No edema feet] - Labs CBC & Chem 7: 08/18/18 04:05 08/18/18 04:05 Labs: Abnormal Lab Results - Last 24 Hours (Table) 08/15/18 08/17/18 08/17/18 Range/Units 10:15 12:00 18:02 WBC (3.8-10.6) k/uL RBC (3.80-5.40) m/uL Hgb (11.4-16.0) gm/dL Hct (34.0-46.0) % RDW (11.5-15.5) % Plt Count (150-450) k/uL Neutrophils # (1.3-7.7) k/uL Lymphocytes # (1.0-4.8) k/uL ABG pO2 (83-108) mmHg ABG HCO3 (21-25) mmol/L ABG Total CO2 (19-24) mmol/L ABG O2 Saturation (94-97) % BUN (7-17) mg/dL Creatinine (0.52-1.04) mg/dL Glucose (74-99) mg/dL POC Glucose (mg/dL) 116 H 133 H (75-99) mg/dL Calcium (8.4-10.2) mg/dL Phosphorus (2.5-4.5) mg/dL Total Protein (6.3-8.2) g/dL Albumin (3.5-5.0) g/dL TSH (0.465-4.680) mIU/L Crossmatch See Detail 08/17/18 08/18/18 08/18/18 Range/Units 23:48 04:05 04:05 WBC 16.7 H (3.8-10.6) k/uL RBC 2.35 L (3.80-5.40) m/uL Hgb 6.8 L* (11.4-16.0) gm/dL Hct 21.0 L (34.0-46.0) % RDW 17.5 H (11.5-15.5) % Plt Count 126 L (150-450) k/uL Neutrophils # 15.7 H (1.3-7.7) k/uL Lymphocytes # 0.3 L (1.0-4.8) k/uL ABG pO2 (83-108) mmHg ABG HCO3 (21-25) mmol/L ABG Total CO2 (19-24) mmol/L ABG O2 Saturation (94-97) % BUN 97 H (7-17) mg/dL Creatinine 3.22 H (0.52-1.04) mg/dL Glucose 130 H (74-99) mg/dL POC Glucose (mg/dL) 154 H (75-99) mg/dL Calcium 7.6 L (8.4-10.2) mg/dL Phosphorus 7.8 H (2.5-4.5) mg/dL Total Protein 4.8 L (6.3-8.2) g/dL Albumin 2.3 L (3.5-5.0) g/dL TSH (0.465-4.680) mIU/L Crossmatch 08/18/18 08/18/18 08/18/18 Range/Units 04:05 04:48 06:15 WBC (3.8-10.6) k/uL RBC (3.80-5.40) m/uL Hgb (11.4-16.0) gm/dL Hct (34.0-46.0) % RDW (11.5-15.5) % Plt Count (150-450) k/uL Neutrophils # (1.3-7.7) k/uL Lymphocytes # (1.0-4.8) k/uL ABG pO2 133 H (83-108) mmHg ABG HCO3 26 H (21-25) mmol/L ABG Total CO2 27 H (19-24) mmol/L ABG O2 Saturation 99.0 H (94-97) % BUN (7-17) mg/dL Creatinine (0.52-1.04) mg/dL Glucose (74-99) mg/dL POC Glucose (mg/dL) 145 H (75-99) mg/dL Calcium (8.4-10.2) mg/dL Phosphorus (2.5-4.5) mg/dL Total Protein (6.3-8.2) g/dL Albumin (3.5-5.0) g/dL TSH 0.382 L (0.465-4.680) mIU/L Crossmatch Microbiology - Last 24 Hours (Table) 08/14/18 10:19 Blood Culture - Preliminary Blood No Growth after 72 hours Assessment and Plan Assessment: 1-patient with left upper lobe pneumonia with a sputum culture has been finalized as MRSA , subsequent worsening of her clinical condition and cardiac arrest and status post resuscitation and intubation with a complaint of possible aspiration pneumonia, s/p bronchoscopy----bronchoscopy cultures grew Inga only--- patient could not be extubated hence scheduled for trach and PEG , patient underlying MRSA pneumonia has been adequately treated currently monitored off antibiotic therapy 3-patient with significant diarrhea, antibiotic associated ,stool for C. diff is negative , diarrhea slightly decreased in amount 4- leukocytosis more likely secondary steroids (1) Sepsis Current Visit: Yes Status: Acute Code(s): A41.9 - SEPSIS, UNSPECIFIED ORGANISM SNOMED Code(s): 47620010 (2) Nosocomial pneumonia Current Visit: Yes Status: Acute Code(s): J18.9 - PNEUMONIA, UNSPECIFIED ORGANISM; Y95 - NOSOCOMIAL CONDITION SNOMED Code(s): 496514779 Plan: 1-we'll continue monitor patient closely off any antibiotic therapy as underlying pneumonia has been adequately treated 2- possible oropharyngeal candidiasis----until he was Diflucan 3- diarrhea-- antibiotic associated C. diff is negative continue with a short course of Flagyl and Questran Time with Patient: Less than 30
[2018-08-19] MEDS: INSULIN ASPART (NovoLOG) 100 UNIT/ML VIAL SQ SCH ×4 (00:06→18:21)
[2018-08-19] MEDS: methylPREDNISolone SOD SUCCI 40 MG/ML 1 ML VIAL IV SCH ×3 (00:06→21:47)
[2018-08-19 00:36] LABS: Glucose,Whole Blood 136 mg/dL (75-99)
[2018-08-19] MEDS: NOREPINEPHRINE 32 MG in SODIUM CHLORIDE 0.9% 218 ML IV SCH (01:36)
[2018-08-19 04:51] LABS: ABG Base Excess 1.4 mmol/L; ABG HCO3 26 mmol/L (21-25); ABG PCO2 37 mmHg (35-45); ABG PH 7.45 (7.35-7.45); ABG PO2 100 mmHg (83-108); ABG TCO2 27 mmol/L (19-24)
[2018-08-19 05:34] LABS: Glucose,Whole Blood 127 mg/dL (75-99)
[2018-08-19 05:49] LABS: Anisocytosis Slight; Basophils % (A) 0 %; Eosinophils % (A) 0 %; HCT 24.7 % (34.0-46.0); HGB 7.9 gm/dL (11.4-16.0); Lymphocytes # (A) 0.3 k/uL (1.0-4.8); Lymphocytes % (A) 2 %; MCH 28.7 pg (25.0-35.0); MCV 89.6 fL (80.0-100.0); Mean Platelet Volume 9.1; Monocytes # (A) 0.6 k/uL (0-1.0); Monocytes % (A) 3 %; Neutrophils # (A) 17.7 k/uL (1.3-7.7); Neutrophils % (A) 94 %; Platelet Count 146 k/uL (150-450); RBC 2.75 m/uL (3.80-5.40); RDW 17.6 % (11.5-15.5); WBC 18.8 k/uL (3.8-10.6)
[2018-08-19] MEDS: CALCIUM ACETATE 667 MG CAP PO SCH ×3 (05:56→18:19)
[2018-08-19] MEDS: LEVOTHYROXINE 75 MCG TAB PEG/G-TUBE SCH (05:56)
[2018-08-19 06:38] LABS: Albumin 2.5 g/dL (3.5-5.0); Calcium 7.6 mg/dL (8.4-10.2); Magnesium 1.8 mg/dL (1.6-2.3); Phosphorus 8.1 mg/dL (2.5-4.5); Potassium 4.5 mmol/L (3.5-5.1); Total Bilirubin 1.1 mg/dL (0.2-1.3); Total Protein 5.1 g/dL (6.3-8.2)
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
[2018-08-19] MEDS: IPRATROPIUM-ALBUTEROL 3 ML NEB INHALATION SCH ×4 (07:15→19:10)
--- NOTE | 2018-08-19 07:45 | XR ---
EXAMINATION TYPE: XR chest 1V portable DATE OF EXAM: 08/19/2018 COMPARISON: Prior chest x-ray 08/18/2018 HISTORY: Abnormal chest x-ray, fluid overload TECHNIQUE: Single frontal view of the chest is obtained. FINDINGS: Tracheostomy tube, right jugular central venous catheter, left subclavian central venous c atheter are again noted, there is a right-sided PICC line with the distal tip in the right atrium. Bi lateral airspace disease is present. No pneumothorax. Heart is obscured, patient is rotated. There ar e overlying cardiac leads. IMPRESSION: Correlate for volume overload, uremia, congestive heart failure, ARDS, pneumonia not exc luded.
[2018-08-19] MEDS: FUROSEMIDE 100 MG in SODIUM CHLORIDE 0.9% 90 ML IV SCH (08:33)
[2018-08-19] MEDS: SERTRALINE 100 MG TAB PO SCH (08:50)
[2018-08-19] MEDS: ATORVASTATIN 40 MG TAB PO SCH (08:50)
[2018-08-19] MEDS: CLOPIDOGREL 75 MG TAB PO SCH (08:50)
[2018-08-19] MEDS: FOLIC ACID 1 MG TAB PO SCH (08:50)
[2018-08-19] MEDS: ASPIRIN 81 MG PO SCH (08:50)
[2018-08-19] MEDS: CHLORHEXIDINE GLUCONATE 15 ML CUP MUCOUS MEM SCH ×2 (08:51→21:46)
[2018-08-19] MEDS: CHOLESTYRAMINE (WITH SUGAR) 4 GM PACKET PEG/G-TUBE SCH ×2 (08:51→18:32)
[2018-08-19] MEDS: ALPRAZolam 1 MG TAB PO SCH ×2 (08:51→21:48)
[2018-08-19] MEDS: HEPARIN SODIUM,PORCINE 5,000 UNIT/ML 1 ML VIAL SQ SCH ×2 (08:53→21:46)
[2018-08-19] MEDS: PANTOPRAZOLE 40 MG/10 ML VIAL IVP SCH ×2 (08:53→21:47)
[2018-08-19] MEDS ORDERED: FLUCONAZOLE 100 MG TAB PEG/G-TUBE SCH (09:00)
--- NOTE | 2018-08-19 09:23 | P.PN ---
Subjective Progress Note Date: 08/19/18 Principal diagnosis: pneumonia Patient is a 63-year-old female with a past medical history of COPD, DVT, GERD, hypertension, dyslipidemia, and asthma who presented with confusion. In the ER she underwent an extensive evaluation. CT of the head was unremarkable. She was found to have a right upper lobe pneumonia and she was started on antibiotics. Infectious disease was consulted who recommended maintaining antibiotics. Pulmonary was consulted. Sputum culture was obtained which showed probable MRSA. Zosyn was stopped and she was started on Teflaro due to inability to take Zyvox because of SSRI. Nephrology was consulted due to acute kidney injury. They stopped her Lasix, lisinopril, and Toradol. On the morning of 08/06 she went into respiratory distress necessitating intubation, she then had a PEA arrests and total down time was less than 10 minutes. She was moved to the ICU and had a central line placed and was started on norepinephrine. She underwent bronchoscopy with bronchial alveolar lavage. Chest x-ray showed pulmonary infiltrate. Clindamycin was initiated. She had decreased renal function after her code. She was started on a bicarb drip. She was found to have increased PA pressures and new pulmonary hypertension and the concern was for possible pulmonary embolism she was started on IV heparin. She had not made significant improvement in her renal function and was subsequently started on dialysis. She had 3 treatments of dialysis. Neurology was consulted who felt this was likely secondary to toxic metabolic encephalopathy but could have underlying anoxic encephalopathy. She had a trach and PEG placed on 08/12/18 and tolerated this well. She was starting to wake up after being taken off all sedatives on 08/13. However overnight on 08/14 she went into respiratory distress requiring propofol and to be placed back on the vent. She also had a drop in hemoglobin and required 1 unit of pRBC. She again had dialysis on 08/14 and 08/15. She required 1 additional unit of pRBC on 08/15. She had permanent HD cath placed on 08/16. 08/17/18 pt is on sedation holiday, she opens her eyes and slightly responds to stimulation. trached , remains afebrile 08/18/2018 Patient is not sedated, she is much more awake, answers questions with nodding her head. Blood pressure stable, no gross bleeding. Family at bedside. 08/19/2018: Continues to do well, follows commands and moves her head. Afebrile, no gross bleeding no chest pain no abdominal pain. Family at bedside. Objective - Vital Signs Vital signs: Vital Signs Temp 97.8 F 08/19/18 08:00 Pulse 80 08/19/18 08:00 Resp 24 08/19/18 08:00 BP 95/59 08/19/18 08:00 Pulse Ox 94 L 08/19/18 08:00 Intake & Output 08/18/18 08/19/18 08/19/18 18:59 06:59 18:59 Intake Total 633.556 754.346 220.833 Output Total 2275 2230 530 Balance -1641.444 -1475.654 -309.167 Weight 93.9 kg Intake: IV 66 176 32 Fluconazole in NaCl,Iso- 50 Osm 100 mg In Saline 1 50ml.bag @ 50 mls/hr IVPB DAILY [facility] Rx#:[id number] KVO 10 110 20 Normal Saline Pressure 6 66 12 bag Intake, IV Titration 217.556 158.346 98.833 Amount Desmopressin Acetate 28 50 mcg In Sodium Chloride 0. 9% 50 ml @ 200 mls/hr IVPB ONCE ONE Rx#: [id number] Furosemide 100 mg In 100 70 98.833 Sodium Chloride 0.9% 90 ml @ 10 MG/HR 10 mls/hr IV .Q10H [facility] Rx#: [id number] Propofol 1,000 mg In 67.556 88.346 Empty Bag 1 bag @ Titrate IV .Q0M [facility] Rx#: [id number] Tube Feeding 350 330 60 Blood Product 0 Rc As-1 Unit 0 [id number] Other 90 30 Output: Urine 1875 2230 430 Stool 400 100 Other: Voiding Method Indwelling Catheter Indwelling Catheter # Voids 2 ABP, PAP, CO, CI - Last Documented Arterial Blood Pressure 121/51 - Exam General: Awake, not in distress. Follows commands Derm: multiple areas of ecchymosis Head: atraumatic, normocephalic Eyes: EOMI, anicteric sclera Mouth: no lip lesion, trach in place without bleeding Cardiovascular: S1S2 reg, no murmur, rubs or gallops Lungs: decreased breath Sounds bilaterally, no rhonchi, no rales , R sided HD catheter in place Abdominal: soft, nontender to palpation, no guarding, PEG in place without signs of bleeding Ext: no gross muscle atrophy, trace+ edema Neuro: opens eyes and moves her head - Labs CBC & Chem 7: 08/19/18 05:30 08/19/18 05:30 Labs: Abnormal Lab Results - Last 24 Hours (Table) 08/18/18 08/18/18 08/18/18 Range/Units 04:05 12:14 18:05 WBC (3.8-10.6) k/uL RBC (3.80-5.40) m/uL Hgb (11.4-16.0) gm/dL Hct (34.0-46.0) % RDW (11.5-15.5) % Plt Count (150-450) k/uL Neutrophils # (1.3-7.7) k/uL Lymphocytes # (1.0-4.8) k/uL ABG HCO3 (21-25) mmol/L ABG Total CO2 (19-24) mmol/L ABG O2 Saturation (94-97) % BUN (7-17) mg/dL Creatinine (0.52-1.04) mg/dL Glucose (74-99) mg/dL POC Glucose (mg/dL) 150 H 133 H (75-99) mg/dL Calcium (8.4-10.2) mg/dL Phosphorus (2.5-4.5) mg/dL Total Protein (6.3-8.2) g/dL Albumin (3.5-5.0) g/dL TSH 0.382 L (0.465-4.680) mIU/L 08/18/18 08/19/18 08/19/18 Range/Units 23:46 04:48 05:28 WBC (3.8-10.6) k/uL RBC (3.80-5.40) m/uL Hgb (11.4-16.0) gm/dL Hct (34.0-46.0) % RDW (11.5-15.5) % Plt Count (150-450) k/uL Neutrophils # (1.3-7.7) k/uL Lymphocytes # (1.0-4.8) k/uL ABG HCO3 26 H (21-25) mmol/L ABG Total CO2 27 H (19-24) mmol/L ABG O2 Saturation 98.0 H (94-97) % BUN (7-17) mg/dL Creatinine (0.52-1.04) mg/dL Glucose (74-99) mg/dL POC Glucose (mg/dL) 136 H 127 H (75-99) mg/dL Calcium (8.4-10.2) mg/dL Phosphorus (2.5-4.5) mg/dL Total Protein (6.3-8.2) g/dL Albumin (3.5-5.0) g/dL TSH (0.465-4.680) mIU/L 08/19/18 08/19/18 Range/Units 05:30 05:30 WBC 18.8 H (3.8-10.6) k/uL RBC 2.75 L (3.80-5.40) m/uL Hgb 7.9 L (11.4-16.0) gm/dL Hct 24.7 L (34.0-46.0) % RDW 17.6 H (11.5-15.5) % Plt Count 146 L (150-450) k/uL Neutrophils # 17.7 H (1.3-7.7) k/uL Lymphocytes # 0.3 L (1.0-4.8) k/uL ABG HCO3 (21-25) mmol/L ABG Total CO2 (19-24) mmol/L ABG O2 Saturation (94-97) % BUN 114 H* (7-17) mg/dL Creatinine 3.33 H (0.52-1.04) mg/dL Glucose 119 H (74-99) mg/dL POC Glucose (mg/dL) (75-99) mg/dL Calcium 7.6 L (8.4-10.2) mg/dL Phosphorus 8.1 H (2.5-4.5) mg/dL Total Protein 5.1 L (6.3-8.2) g/dL Albumin 2.5 L (3.5-5.0) g/dL TSH (0.465-4.680) mIU/L Microbiology - Last 24 Hours (Table) 08/14/18 10:19 Blood Culture - Preliminary Blood No Growth after 96 hours Assessment and Plan Plan: Assessment and Plan MRSA pneumonia, Acute hypoxic respiratory failure, akash in sputum - Leukocytosis fluctuates between 15 and 18 -On Teflaro, fluconazole, and flagyl Appreciate ID input, Teflaro discontinued, continued on Flagyl and Diflucan for possible oropharyngeal candidiasis. -Pulmonary hygiene, continue current management Antibiotic associate diarrhea - c diff negative - flagyl continued ID following - maintain rectal tube - off colace Continue Questran per ID Anemia, multifactoral - suspect dilutional, + FOB, but no active bleeding - s/p 2 units pRBC - Transfused 1 unit of packed RBCs today 08/18/2018 - CBC stable at 7.9 continue aranesp Acute hypoxic respiratory failure -Status post tracheostomy -Vent management per pulmonary, continue to monitor clinically improving. Acute kidney injury requiring hemodialysis -Nephrology recommendations appreciated: HD on hold for now Status post permanent cath 08/16/2018 -Avoid nephrotoxins -On PhosLo Monitoring for renal recovery Serum creatinine slightly increasing, hopefully plateaued 3.3 today compared to 3.2 yesterday, 2.8 08/17/2018 and 2.4 08/16/2018 Patient is continued on Lasix drip, with good urine output. COPD with exacerbation Continue oxygen, bronchodilators IV antibiotics and IV Solu-Medrol, clinically better. Essential Hypertension, controlled -Stable blood pressure -Off Norvasc, metoprolol, and lisinopril Hypothyroidism -Continue with Synthroid Chronic pain syndrome -Status post removal of pain pump - consider lortab elixir for pain if needed. 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
--- NOTE | 2018-08-19 09:37 | P.PN ---
Subjective Progress Note Date: 08/19/18 Principal diagnosis: Altered mental status, weakness Sedation off for several hours and on CPAP. No family present. Nursing at bedside who notes patient is able to follow commands but her body remains weak. Patient s/ c/o. Objective - Vital Signs Vital signs: Vital Signs Temp 97.8 F 08/19/18 08:00 Pulse 79 08/19/18 09:00 Resp 17 08/19/18 09:00 BP 95/59 08/19/18 09:00 Pulse Ox 90 L 08/19/18 09:00 Intake & Output 08/18/18 08/19/18 08/19/18 18:59 06:59 18:59 Intake Total 633.556 754.346 296.833 Output Total 2275 2230 780 Balance -1641.444 -1475.654 -483.167 Weight 93.9 kg Intake: IV 66 176 48 Fluconazole in NaCl,Iso- 50 Osm 100 mg In Saline 1 50ml.bag @ 50 mls/hr IVPB DAILY [facility] Rx#:[id number] KVO 10 110 30 Normal Saline Pressure 6 66 18 bag Intake, IV Titration 217.556 158.346 98.833 Amount Desmopressin Acetate 28 50 mcg In Sodium Chloride 0. 9% 50 ml @ 200 mls/hr IVPB ONCE ONE Rx#: [id number] Furosemide 100 mg In 100 70 98.833 Sodium Chloride 0.9% 90 ml @ 10 MG/HR 10 mls/hr IV .Q10H [facility] Rx#: [id number] Propofol 1,000 mg In 67.556 88.346 Empty Bag 1 bag @ Titrate IV .Q0M [facility] Rx#: [id number] Tube Feeding 350 330 90 Blood Product 0 Rc As-1 Unit 0 [id number] Other 90 60 Output: Urine 1875 2230 680 Stool 400 100 Other: Voiding Method Indwelling Catheter Indwelling Catheter # Voids 2 ABP, PAP, CO, CI - Last Documented Arterial Blood Pressure 132/60 - Exam Gen NAD Pleasant and cooperative MS Awake and alert Able to open and close eyes and raise eyebrows on command Does not give thumbs up but able to vending machine attendant and release my fingers with each hand on command CN PERRL Tracks examiner with eyes EOMI no nystagmus Blinks to threat bilaterally No facial asymmetry +Cough/gag Motor Normal bulk/tone No tremors Weak 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 attendant o/w no other spontaneous limb movements Sens Grimaces to nailbed stim x4 no obvious neglect Coord No ocular dysmetria; appendicular coordination cannot be tested due to existing motor weakness DTRs 0/4 throughout Gait Cannot test due to weakness - Labs CBC & Chem 7: 08/19/18 05:30 08/19/18 05:30 Labs: Abnormal Lab Results - Last 24 Hours (Table) 08/18/18 08/18/18 08/18/18 Range/Units 12:14 18:05 23:46 WBC (3.8-10.6) k/uL RBC (3.80-5.40) m/uL Hgb (11.4-16.0) gm/dL Hct (34.0-46.0) % RDW (11.5-15.5) % Plt Count (150-450) k/uL Neutrophils # (1.3-7.7) k/uL Lymphocytes # (1.0-4.8) k/uL ABG HCO3 (21-25) mmol/L ABG Total CO2 (19-24) mmol/L ABG O2 Saturation (94-97) % BUN (7-17) mg/dL Creatinine (0.52-1.04) mg/dL Glucose (74-99) mg/dL POC Glucose (mg/dL) 150 H 133 H 136 H (75-99) mg/dL Calcium (8.4-10.2) mg/dL Phosphorus (2.5-4.5) mg/dL Total Protein (6.3-8.2) g/dL Albumin (3.5-5.0) g/dL 08/19/18 08/19/18 08/19/18 Range/Units 04:48 05:28 05:30 WBC 18.8 H (3.8-10.6) k/uL RBC 2.75 L (3.80-5.40) m/uL Hgb 7.9 L (11.4-16.0) gm/dL Hct 24.7 L (34.0-46.0) % RDW 17.6 H (11.5-15.5) % Plt Count 146 L (150-450) k/uL Neutrophils # 17.7 H (1.3-7.7) k/uL Lymphocytes # 0.3 L (1.0-4.8) k/uL ABG HCO3 26 H (21-25) mmol/L ABG Total CO2 27 H (19-24) mmol/L ABG O2 Saturation 98.0 H (94-97) % BUN (7-17) mg/dL Creatinine (0.52-1.04) mg/dL Glucose (74-99) mg/dL POC Glucose (mg/dL) 127 H (75-99) mg/dL Calcium (8.4-10.2) mg/dL Phosphorus (2.5-4.5) mg/dL Total Protein (6.3-8.2) g/dL Albumin (3.5-5.0) g/dL 08/19/18 Range/Units 05:30 WBC (3.8-10.6) k/uL RBC (3.80-5.40) m/uL Hgb (11.4-16.0) gm/dL Hct (34.0-46.0) % RDW (11.5-15.5) % Plt Count (150-450) k/uL Neutrophils # (1.3-7.7) k/uL Lymphocytes # (1.0-4.8) k/uL ABG HCO3 (21-25) mmol/L ABG Total CO2 (19-24) mmol/L ABG O2 Saturation (94-97) % BUN 114 H* (7-17) mg/dL Creatinine 3.33 H (0.52-1.04) mg/dL Glucose 119 H (74-99) mg/dL POC Glucose (mg/dL) (75-99) mg/dL Calcium 7.6 L (8.4-10.2) mg/dL Phosphorus 8.1 H (2.5-4.5) mg/dL Total Protein 5.1 L (6.3-8.2) g/dL Albumin 2.5 L (3.5-5.0) g/dL Microbiology - Last 24 Hours (Table) 08/14/18 10:19 Blood Culture - Preliminary Blood No Growth after 96 hours Assessment and Plan Assessment: Altered mental status h/o respiratory failure with anoxic encephalopathy- much improved. Diffuse weakness with prolonged hospitalization and diffuse hyporreflexia, con sistent with polyneuropathy of critical illness. Plan: -Continue supportive care. Minimize sedation. -Since patient continues to improve clinically, do not recommend new neuro testing at this time. -Given her prolonged hospitalization and immobilization, her diffuse weakness is consistent with polyneuropathy of critical illness. Anticipate extensive rehabilitation once discharged from acute stay. -Dr. Aragon will be balcony worker this weekend. Please call with ?. I have d/w patient/RN all my clinical impressions and recs. All questions answered. Time with Patient: Less than 30 (Time spent in direct patient care, greater than 50% of which was spent in [id number] counseling and coordination of care: 25 minutes.)
[2018-08-19] MEDS: metroNIDAZOLE 500 MG TAB OG-TUBE SCH ×3 (10:33→21:46)
[2018-08-19 11:57] LABS: Glucose,Whole Blood 120 mg/dL (75-99)
[2018-08-19] MEDS: PROPOFOL 1,000 MG in EMPTY BAG 1 BAG IV SCH ×3 (12:01→19:19)
--- NOTE | 2018-08-19 12:30 | P.PN ---
Subjective Patient is seen in follow-up for acute kidney injury. Her baseline creatinine is near 1. Patient required hemodialysis this admission. Last treatment was on August 15. She is currently maintained on Lasix drip. Urine output has been over 100 mL an hour. She underwent tracheostomy this admission. Creatinine today is 3.33 and BUN is up to 114. Hemoglobin improved post blood transfusion. She is also on tube feeding. Vital signs are stable. General: The patient appeared well nourished and normally developed. Tracheostomy noted. HEENT: Head exam is unremarkable. Neck is without jugular venous distension. LUNGS: Breath sounds decreased. HEART: Rate and Rhythm are regular. First and second heart sounds normal. No murmurs, rubs or gallops. ABDOMEN: Abdominal exam reveals normal bowel sounds. Nontender. EXTREMITITES: 1+ edema. Objective - Vital Signs Vital signs: Vital Signs Temp 97.6 F 08/19/18 12:00 Pulse 78 08/19/18 12:00 Resp 40 H 08/19/18 12:00 BP 118/98 08/19/18 12:00 Pulse Ox 90 L 08/19/18 12:00 Intake & Output 08/18/18 08/19/18 08/19/18 18:59 06:59 18:59 Intake Total 633.556 754.346 640.969 Output Total 2275 2230 1370 Balance -1641.444 -1475.654 -729.031 Weight 93.9 kg Intake: IV 66 176 84 Fluconazole in NaCl,Iso- 50 Osm 100 mg In Saline 1 50ml.bag @ 50 mls/hr IVPB DAILY [facility] Rx#:[id number] KVO 10 110 60 Normal Saline Pressure 6 66 24 bag Intake, IV Titration 217.556 158.346 136.969 Amount Desmopressin Acetate 28 50 mcg In Sodium Chloride 0. 9% 50 ml @ 200 mls/hr IVPB ONCE ONE Rx#: [id number] Furosemide 100 mg In 100 70 136.500 Sodium Chloride 0.9% 90 ml @ 10 MG/HR 10 mls/hr IV .Q10H [facility] Rx#: [id number] Propofol 1,000 mg In 67.556 88.346 0.469 Empty Bag 1 bag @ Titrate IV .Q0M [facility] Rx#: [id number] Tube Feeding 350 330 270 Blood Product 0 Rc As-1 Unit 0 [id number] Other 90 150 Output: Urine 1875 2230 1250 Stool 400 120 Other: Voiding Method Indwelling Catheter Indwelling Catheter Indwelling Catheter # Voids 2 ABP, PAP, CO, CI - Last Documented Arterial Blood Pressure 117/76 - Labs CBC & Chem 7: 08/19/18 05:30 08/19/18 05:30 Labs: Abnormal Lab Results - Last 24 Hours (Table) 08/18/18 08/18/18 08/19/18 Range/Units 18:05 23:46 04:48 WBC (3.8-10.6) k/uL RBC (3.80-5.40) m/uL Hgb (11.4-16.0) gm/dL Hct (34.0-46.0) % RDW (11.5-15.5) % Plt Count (150-450) k/uL Neutrophils # (1.3-7.7) k/uL Lymphocytes # (1.0-4.8) k/uL ABG HCO3 26 H (21-25) mmol/L ABG Total CO2 27 H (19-24) mmol/L ABG O2 Saturation 98.0 H (94-97) % BUN (7-17) mg/dL Creatinine (0.52-1.04) mg/dL Glucose (74-99) mg/dL POC Glucose (mg/dL) 133 H 136 H (75-99) mg/dL Calcium (8.4-10.2) mg/dL Phosphorus (2.5-4.5) mg/dL Total Protein (6.3-8.2) g/dL Albumin (3.5-5.0) g/dL 08/19/18 08/19/18 08/19/18 Range/Units 05:28 05:30 05:30 WBC 18.8 H (3.8-10.6) k/uL RBC 2.75 L (3.80-5.40) m/uL Hgb 7.9 L (11.4-16.0) gm/dL Hct 24.7 L (34.0-46.0) % RDW 17.6 H (11.5-15.5) % Plt Count 146 L (150-450) k/uL Neutrophils # 17.7 H (1.3-7.7) k/uL Lymphocytes # 0.3 L (1.0-4.8) k/uL ABG HCO3 (21-25) mmol/L ABG Total CO2 (19-24) mmol/L ABG O2 Saturation (94-97) % BUN 114 H* (7-17) mg/dL Creatinine 3.33 H (0.52-1.04) mg/dL Glucose 119 H (74-99) mg/dL POC Glucose (mg/dL) 127 H (75-99) mg/dL Calcium 7.6 L (8.4-10.2) mg/dL Phosphorus 8.1 H (2.5-4.5) mg/dL Total Protein 5.1 L (6.3-8.2) g/dL Albumin 2.5 L (3.5-5.0) g/dL 08/19/18 Range/Units 11:53 WBC (3.8-10.6) k/uL RBC (3.80-5.40) m/uL Hgb (11.4-16.0) gm/dL Hct (34.0-46.0) % RDW (11.5-15.5) % Plt Count (150-450) k/uL Neutrophils # (1.3-7.7) k/uL Lymphocytes # (1.0-4.8) k/uL ABG HCO3 (21-25) mmol/L ABG Total CO2 (19-24) mmol/L ABG O2 Saturation (94-97) % BUN (7-17) mg/dL Creatinine (0.52-1.04) mg/dL Glucose (74-99) mg/dL POC Glucose (mg/dL) 120 H (75-99) mg/dL Calcium (8.4-10.2) mg/dL Phosphorus (2.5-4.5) mg/dL Total Protein (6.3-8.2) g/dL Albumin (3.5-5.0) g/dL Microbiology - Last 24 Hours (Table) 08/14/18 10:19 Blood Culture - Preliminary Blood No Growth after 96 hours Assessment and Plan Plan: Assessment: 1. Acute kidney injury secondary to ATN secondary to sepsis. Baseline creatinine is near 1. Renal function slightly worse due to diuresis. Last hemodialysis was on August 15. C3 level was noted to be slightly low and rest of the serologies have been negative. 2. Septic shock secondary to pneumonia. Maintained on antibiotics and antifungal per infectious disease. 3. Acute blood loss anemia with no active bleeding. Better after blood transfusion. Maintained on Aranesp. Status post ICD DDAVP on August 18. 4. Volume overload maintained on Lasix drip. 5. Acute hypoxic respiratory failure secondary to pneumonia. Status post tracheostomy this admission. 6. Hyperphosphatemia secondary to acute kidney injury maintained on PhosLo. Plan: Discontinue Lasix drip. Start IV Lasix 60 mg twice daily. Continue to hold off on hemodialysis for now. Continue to monitor renal function and urine output.
[2018-08-19] MEDS ORDERED: FUROSEMIDE 20 MG TAB PO SCH (16:00)
[2018-08-19 18:24] LABS: Glucose,Whole Blood 119 mg/dL (75-99)
[2018-08-19] MEDS: AMITRIPTYLINE HCL 50 MG TAB PO SCH (21:46)
[2018-08-19] MEDS: QUEtiapine 200 MG TAB PO SCH (21:46)
[2018-08-19] MEDS: FUROSEMIDE 10 MG/ML 10 ML VIAL IV SCH (21:47)
[2018-08-19] MEDS: ACETAMINOPHEN TAB 325 MG TAB PO PRN (21:48)
--- NOTE | 2018-08-19 22:02 | P.PN ---
Subjective Progress Note Date: 08/19/18 Principal diagnosis: Leukocytosis and diarrhea The patient is currently afebrile the patient is hemodynamically stable not requiring any pressor support the patient did have good urine output has been tolerating tube feeds she continued to have loose stools no worsening frequency has been reported, the patient arterial and central line has been discontinued and the tip has been sent for culture Objective - Vital Signs Vital signs: Vital Signs Temp 97.6 F 08/19/18 12:00 Pulse 71 08/19/18 14:00 Resp 34 H 08/19/18 14:00 BP 109/59 08/19/18 14:00 Pulse Ox 92 L 08/19/18 14:00 Intake & Output 08/18/18 08/19/18 08/19/18 18:59 06:59 18:59 Intake Total 633.556 754.346 868.577 Output Total 2275 2230 1820 Balance -1641.444 -1475.654 -951.423 Weight 93.9 kg Intake: IV 66 176 104 Fluconazole in NaCl,Iso- 50 Osm 100 mg In Saline 1 50ml.bag @ 50 mls/hr IVPB DAILY [facility] Rx#:[id number] KVO 10 110 80 Normal Saline Pressure 6 66 24 bag Intake, IV Titration 217.556 158.346 194.577 Amount Desmopressin Acetate 28 50 mcg In Sodium Chloride 0. 9% 50 ml @ 200 mls/hr IVPB ONCE ONE Rx#: [id number] Furosemide 100 mg In 100 70 136.500 Sodium Chloride 0.9% 90 ml @ 10 MG/HR 10 mls/hr IV .Q10H [facility] Rx#: [id number] Propofol 1,000 mg In 67.556 88.346 58.077 Empty Bag 1 bag @ Titrate IV .Q0M [facility] Rx#: [id number] Tube Feeding 350 330 360 Blood Product 0 Rc As-1 Unit 0 [id number] Other 90 210 Output: Urine 1875 2230 1700 Stool 400 120 Other: Voiding Method Indwelling Catheter Indwelling Catheter Indwelling Catheter # Voids 2 ABP, PAP, CO, CI - Last Documented Arterial Blood Pressure 117/76 - Exam GENERAL DESCRIPTION:[ Middle-aged female intubated through the trach on the vent] HEENT: [Patient is orally intubated and limited examination of the oral cavity] EYES : [No pallor or scleral icterus] RESPIRATORY SYSTEM: [Unlabored breathing decreased breath sound at the base] CARDIA VASCULAR SYSTEM: [S1-S2 regular rate and rhythm no murmur] GI: [Abdominal soft there's no tenderness no organomegaly] EXTREMITIES: [No edema feet] - Labs CBC & Chem 7: 08/19/18 05:30 08/19/18 05:30 Labs: Abnormal Lab Results - Last 24 Hours (Table) 08/18/18 08/18/18 08/19/18 Range/Units 18:05 23:46 04:48 WBC (3.8-10.6) k/uL RBC (3.80-5.40) m/uL Hgb (11.4-16.0) gm/dL Hct (34.0-46.0) % RDW (11.5-15.5) % Plt Count (150-450) k/uL Neutrophils # (1.3-7.7) k/uL Lymphocytes # (1.0-4.8) k/uL ABG HCO3 26 H (21-25) mmol/L ABG Total CO2 27 H (19-24) mmol/L ABG O2 Saturation 98.0 H (94-97) % BUN (7-17) mg/dL Creatinine (0.52-1.04) mg/dL Glucose (74-99) mg/dL POC Glucose (mg/dL) 133 H 136 H (75-99) mg/dL Calcium (8.4-10.2) mg/dL Phosphorus (2.5-4.5) mg/dL Total Protein (6.3-8.2) g/dL Albumin (3.5-5.0) g/dL 08/19/18 08/19/18 08/19/18 Range/Units 05:28 05:30 05:30 WBC 18.8 H (3.8-10.6) k/uL RBC 2.75 L (3.80-5.40) m/uL Hgb 7.9 L (11.4-16.0) gm/dL Hct 24.7 L (34.0-46.0) % RDW 17.6 H (11.5-15.5) % Plt Count 146 L (150-450) k/uL Neutrophils # 17.7 H (1.3-7.7) k/uL Lymphocytes # 0.3 L (1.0-4.8) k/uL ABG HCO3 (21-25) mmol/L ABG Total CO2 (19-24) mmol/L ABG O2 Saturation (94-97) % BUN 114 H* (7-17) mg/dL Creatinine 3.33 H (0.52-1.04) mg/dL Glucose 119 H (74-99) mg/dL POC Glucose (mg/dL) 127 H (75-99) mg/dL Calcium 7.6 L (8.4-10.2) mg/dL Phosphorus 8.1 H (2.5-4.5) mg/dL Total Protein 5.1 L (6.3-8.2) g/dL Albumin 2.5 L (3.5-5.0) g/dL 08/19/18 Range/Units 11:53 WBC (3.8-10.6) k/uL RBC (3.80-5.40) m/uL Hgb (11.4-16.0) gm/dL Hct (34.0-46.0) % RDW (11.5-15.5) % Plt Count (150-450) k/uL Neutrophils # (1.3-7.7) k/uL Lymphocytes # (1.0-4.8) k/uL ABG HCO3 (21-25) mmol/L ABG Total CO2 (19-24) mmol/L ABG O2 Saturation (94-97) % BUN (7-17) mg/dL Creatinine (0.52-1.04) mg/dL Glucose (74-99) mg/dL POC Glucose (mg/dL) 120 H (75-99) mg/dL Calcium (8.4-10.2) mg/dL Phosphorus (2.5-4.5) mg/dL Total Protein (6.3-8.2) g/dL Albumin (3.5-5.0) g/dL Microbiology - Last 24 Hours (Table) 08/14/18 10:19 Blood Culture - Preliminary Blood No Growth after 120 hours Assessment and Plan Assessment: 1-patient with MRSA pneumonia that has been adequately treated 2-elevated white count more likely multifactorial possible steroid effect plus minus secondary to her central and arterial line which has been discontinued 3-diarrhea antibiotic associated--- stool for C. diff negative 4-oropharyngeal candidiasis Plan: 1-the patient to continue on Flagyl Questran and Diflucan 2-we will follow her heart and central line cultures if the pt spike any fever or any further jump in the white count to reculture her before starting any antibiotics Time with Patient: Less than 30
[2018-08-19] MEDS: IPRATROPIUM-ALBUTEROL 3 ML NEB INHALATION PRN (23:05)
[2018-08-20 01:06] LABS: Glucose,Whole Blood 134 mg/dL (75-99)
[2018-08-20] MEDS: INSULIN ASPART (NovoLOG) 100 UNIT/ML VIAL SQ SCH ×4 (01:07→18:10)
[2018-08-20] MEDS: NOREPINEPHRINE 32 MG in SODIUM CHLORIDE 0.9% 218 ML IV SCH (01:09)
[2018-08-20] MEDS: IPRATROPIUM-ALBUTEROL 3 ML NEB INHALATION PRN ×2 (03:03→23:01)
[2018-08-20] MEDS: PROPOFOL 1,000 MG in EMPTY BAG 1 BAG IV SCH ×5 (05:04→21:24)
[2018-08-20 05:06] LABS: ABG Base Excess 0.9 mmol/L; ABG HCO3 26 mmol/L (21-25); ABG Oxygen Saturation 97.8 % (94-97); ABG PCO2 40 mmHg (35-45); ABG PH 7.41 (7.35-7.45); ABG PO2 96 mmHg (83-108); ABG TCO2 27 mmol/L (19-24)
[2018-08-20 05:11] LABS: Anisocytosis Slight; Basophils % (A) 0 %; Eosinophils % (A) 0 %; HCT 22.8 % (34.0-46.0); HGB 7.3 gm/dL (11.4-16.0); Lymphocytes # (A) 0.3 k/uL (1.0-4.8); Lymphocytes % (A) 2 %; MCH 28.6 pg (25.0-35.0); MCV 89.5 fL (80.0-100.0); Mean Platelet Volume 8.5; Monocytes # (A) 0.6 k/uL (0-1.0); Monocytes % (A) 4 %; Neutrophils # (A) 15.7 k/uL (1.3-7.7); Neutrophils % (A) 94 %; Platelet Count 134 k/uL (150-450); RBC 2.54 m/uL (3.80-5.40); RDW 17.7 % (11.5-15.5); WBC 16.7 k/uL (3.8-10.6)
[2018-08-20 05:26] LABS: Albumin 2.4 g/dL (3.5-5.0); Calcium 7.4 mg/dL (8.4-10.2); Magnesium 1.7 mg/dL (1.6-2.3); Phosphorus 8.2 mg/dL (2.5-4.5); Potassium 4.6 mmol/L (3.5-5.1); Total Bilirubin 1.1 mg/dL (0.2-1.3); Total Protein 4.9 g/dL (6.3-8.2)
[2018-08-20 05:47] LABS: Glucose,Whole Blood 120 mg/dL (75-99)
[2018-08-20] MEDS ORDERED: MAGNESIUM SULFATE-D5W PMX 1 GM in DEXTROSE/WATER 1 100ML.BAG IVPB ONE (06:24)
--- NOTE | 2018-08-20 06:30 | XR ---
EXAMINATION TYPE: XR chest 1V portable DATE OF EXAM: 08/20/2018 HISTORY: SOB. REFERENCE: Previous study dated 08/19/2018. FINDINGS: There is a tracheostomy tube in place. Its tip overlies the tracheal air column in this sin gle frontal projection. There is a large-bore, double-lumen catheter in place via a right internal jugular approach. Its tip is at the cavoatrial junction. There is alveolar and interstitial lung disease present bilaterally, worse on the left than the right . This is unchanged from previous. The heart size enlarged. I cannot exclude small effusions. IMPRESSION: NO SIGNIFICANT INTERVAL CHANGE IN THE APPEARANCE OF THE CHEST.
[2018-08-20] MEDS: LEVOTHYROXINE 75 MCG TAB PEG/G-TUBE SCH (06:44)
[2018-08-20] MEDS: CALCIUM ACETATE 667 MG CAP PO SCH ×3 (06:44→17:23)
[2018-08-20] MEDS: IPRATROPIUM-ALBUTEROL 3 ML NEB INHALATION SCH ×4 (07:25→19:19)
[2018-08-20] MEDS: FUROSEMIDE 10 MG/ML 10 ML VIAL IV SCH ×2 (09:08→19:13)
[2018-08-20] MEDS: ALPRAZolam 1 MG TAB PO SCH ×2 (09:13→21:24)
[2018-08-20] MEDS: ASPIRIN 81 MG PO SCH (09:13)
[2018-08-20] MEDS: HEPARIN SODIUM,PORCINE 5,000 UNIT/ML 1 ML VIAL SQ SCH ×2 (09:14→21:28)
[2018-08-20] MEDS: FOLIC ACID 1 MG TAB PO SCH (09:14)
[2018-08-20] MEDS: SERTRALINE 100 MG TAB PO SCH (09:14)
[2018-08-20] MEDS: metroNIDAZOLE 500 MG TAB OG-TUBE SCH ×3 (09:14→21:24)
[2018-08-20] MEDS: ATORVASTATIN 40 MG TAB PO SCH (09:14)
[2018-08-20] MEDS: CHLORHEXIDINE GLUCONATE 15 ML CUP MUCOUS MEM SCH ×2 (09:14→21:24)
[2018-08-20] MEDS: CLOPIDOGREL 75 MG TAB PO SCH (09:14)
[2018-08-20] MEDS: methylPREDNISolone SOD SUCCI 40 MG/ML 1 ML VIAL IV SCH ×2 (09:15→21:27)
[2018-08-20] MEDS: PANTOPRAZOLE 40 MG/10 ML VIAL IVP SCH ×2 (09:15→21:27)
[2018-08-20] MEDS: CHOLESTYRAMINE (WITH SUGAR) 4 GM PACKET PEG/G-TUBE SCH ×2 (09:18→17:23)
--- NOTE | 2018-08-20 09:53 | P.PN ---
Subjective Patient is seen in follow-up for acute kidney injury. Her baseline creatinine is near 1. Patient required hemodialysis this admission. Last treatment was on August 15. She is currently maintained on Lasix 60 mg IV twice daily. Urine output has been over 100 mL an hour. She underwent tracheostomy this admission. Creatinine today is 3.5 and BUN is up to 126. She is on IV steroids. She is also on tube feeding. Vital signs are stable. General: The patient appeared well nourished and normally developed. Tracheostomy noted. HEENT: Head exam is unremarkable. Neck is without jugular venous distension. LUNGS: Breath sounds decreased. HEART: Rate and Rhythm are regular. First and second heart sounds normal. No murmurs, rubs or gallops. ABDOMEN: Abdominal exam reveals normal bowel sounds. Nontender. EXTREMITITES: 1+ edema. Objective - Vital Signs Vital signs: Vital Signs Temp 97.9 F 08/20/18 08:00 Pulse 74 08/20/18 09:00 Resp 34 H 08/20/18 09:00 BP 102/64 08/20/18 09:00 Pulse Ox 95 08/20/18 09:00 Intake & Output 08/19/18 08/20/18 08/20/18 18:59 06:59 18:59 Intake Total 7789.627 0846.575 185.261 Output Total 2455 1955 245 Balance -1396.423 -741.425 -59.739 Weight 93.9 kg 90 kg Intake: IV 144 230 20 KVO 120 130 20 Magnesium Sulfate-D5w Pmx 100 1 gm In Dextrose/Water 1 100ml.bag @ 100 mls/hr IVPB ONCE ONE Rx#: [id number] Normal Saline Pressure 24 bag Intake, IV Titration 194.577 293.575 75.261 Amount Furosemide 100 mg In 136.500 Sodium Chloride 0.9% 90 ml @ 10 MG/HR 10 mls/hr IV .Q10H [facility] Rx#: [id number] Propofol 1,000 mg In 58.077 293.575 75.261 Empty Bag 1 bag @ Titrate IV .Q0M [facility] Rx#: [id number] Tube Feeding 480 390 60 Other 240 300 30 Output: Urine 2235 1955 245 Stool 220 Other: Voiding Method Indwelling Catheter Indwelling Catheter Indwelling Catheter ABP, PAP, CO, CI - Last Documented Arterial Blood Pressure 117/76 - Labs CBC & Chem 7: 08/20/18 04:40 08/20/18 04:40 Labs: Abnormal Lab Results - Last 24 Hours (Table) 08/19/18 08/19/18 08/20/18 Range/Units 11:53 18:21 01:02 WBC (3.8-10.6) k/uL RBC (3.80-5.40) m/uL Hgb (11.4-16.0) gm/dL Hct (34.0-46.0) % RDW (11.5-15.5) % Plt Count (150-450) k/uL Neutrophils # (1.3-7.7) k/uL Lymphocytes # (1.0-4.8) k/uL ABG HCO3 (21-25) mmol/L ABG Total CO2 (19-24) mmol/L ABG O2 Saturation (94-97) % BUN (7-17) mg/dL Creatinine (0.52-1.04) mg/dL Glucose (74-99) mg/dL POC Glucose (mg/dL) 120 H 119 H 134 H (75-99) mg/dL Calcium (8.4-10.2) mg/dL Phosphorus (2.5-4.5) mg/dL Total Protein (6.3-8.2) g/dL Albumin (3.5-5.0) g/dL 08/20/18 08/20/18 08/20/18 Range/Units 04:40 04:40 05:04 WBC 16.7 H (3.8-10.6) k/uL RBC 2.54 L (3.80-5.40) m/uL Hgb 7.3 L (11.4-16.0) gm/dL Hct 22.8 L (34.0-46.0) % RDW 17.7 H (11.5-15.5) % Plt Count 134 L (150-450) k/uL Neutrophils # 15.7 H (1.3-7.7) k/uL Lymphocytes # 0.3 L (1.0-4.8) k/uL ABG HCO3 26 H (21-25) mmol/L ABG Total CO2 27 H (19-24) mmol/L ABG O2 Saturation 97.8 H (94-97) % BUN 126 H* (7-17) mg/dL Creatinine 3.50 H (0.52-1.04) mg/dL Glucose 111 H (74-99) mg/dL POC Glucose (mg/dL) (75-99) mg/dL Calcium 7.4 L (8.4-10.2) mg/dL Phosphorus 8.2 H (2.5-4.5) mg/dL Total Protein 4.9 L (6.3-8.2) g/dL Albumin 2.4 L (3.5-5.0) g/dL 08/20/18 Range/Units 05:45 WBC (3.8-10.6) k/uL RBC (3.80-5.40) m/uL Hgb (11.4-16.0) gm/dL Hct (34.0-46.0) % RDW (11.5-15.5) % Plt Count (150-450) k/uL Neutrophils # (1.3-7.7) k/uL Lymphocytes # (1.0-4.8) k/uL ABG HCO3 (21-25) mmol/L ABG Total CO2 (19-24) mmol/L ABG O2 Saturation (94-97) % BUN (7-17) mg/dL Creatinine (0.52-1.04) mg/dL Glucose (74-99) mg/dL POC Glucose (mg/dL) 120 H (75-99) mg/dL Calcium (8.4-10.2) mg/dL Phosphorus (2.5-4.5) mg/dL Total Protein (6.3-8.2) g/dL Albumin (3.5-5.0) g/dL Microbiology - Last 24 Hours (Table) 08/19/18 11:45 Catheter Tip Culture - Preliminary Catheter Tip 08/19/18 11:45 Catheter Tip Culture - Preliminary Catheter Tip 08/14/18 10:19 Blood Culture - Preliminary Blood No Growth after 120 hours Assessment and Plan Plan: Assessment: 1. Acute kidney injury secondary to ATN secondary to sepsis. Baseline creatinine is near 1. Renal function slightly worse due to diuresis. Last hemodialysis was on August 15. C3 level was noted to be slightly low and rest of the serologies have been negative. Creatinine 3.5 today. BUN is elevated which is partially due to IV steroids. 2. Septic shock secondary to pneumonia. Maintained on antibiotics and antifungal per infectious disease. 3. Acute blood loss anemia with no active bleeding. Better after blood transfusion. Maintained on Aranesp. Status post ICD DDAVP on August 18. 4. Volume overload maintained on IV Lasix. 5. Acute hypoxic respiratory failure secondary to pneumonia. Status post tracheostomy this admission. 6. Hyperphosphatemia secondary to acute kidney injury maintained on PhosLo. Plan: Hold Lasix today as urine output is adequate. Continue to hold off on hemodialysis for now. Continue to monitor renal function and urine output.
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
[2018-08-20 11:51] LABS: Glucose,Whole Blood 111 mg/dL (75-99)
--- NOTE | 2018-08-20 14:09 | P.PN ---
Subjective Progress Note Date: 08/20/18 Patient's daughter and was present today. Patient is doing much better mentally. However still very weak in the all 4 extremities. Patient recognized me by nodding "yes", when asked if she remembered me. Patient has tracheostomy. Patient has been off propofol since 8:15 in the morning. Still very weak all over. Not much improved as compared to the last neurological examination from 08/14/2018 regarding motor standpoint. No new neurological issues. Patient also has started producing urine, and has not had any hemodialysis in the last 4 days. The patient also has been anemic, requiring blood transfusions. Her most recent blood test shows WBC 6.7, hemoglobin 7.3, platelets 134. Sodium potassium are normal. Today the BUN is 126, creatinine 3.50. Yesterday BUN was 114, creatinine 3.33. Liver functions are normal. Acetylcholine receptor antibodies are negative. Hepatitis panel negative. DsDNA negative. Antineutrophilic Cytoplasmic antibodies negative. Hemoglobin A1c 5.3 on 08/11/2018. Patient had an EEG performed previously, which revealed background slowing of moderate degree, suggestive of toxic metabolic encephalopathy or related to diffuse structural brain abnormality. No epileptiform activity was seen. Computed tomography scan of head showed no acute process. Small vessel disease. Some lacunar strokes in the basal ganglia bilaterally. Objective - Vital Signs Vital signs: Vital Signs Temp 97.9 F 08/20/18 12:00 Pulse 88 08/20/18 13:00 Resp 31 H 08/20/18 13:00 BP 124/75 08/20/18 13:00 Pulse Ox 91 L 08/20/18 13:00 Intake & Output 08/19/18 08/20/18 08/20/18 18:59 06:59 18:59 Intake Total 6829.919 4839.575 375.261 Output Total 2455 1955 780 Balance -1396.423 -741.425 -404.739 Weight 93.9 kg 90 kg Intake: IV 144 230 60 KVO 120 130 60 Magnesium Sulfate-D5w Pmx 100 1 gm In Dextrose/Water 1 100ml.bag @ 100 mls/hr IVPB ONCE ONE Rx#: [id number] Normal Saline Pressure 24 bag Intake, IV Titration 194.577 293.575 75.261 Amount Furosemide 100 mg In 136.500 Sodium Chloride 0.9% 90 ml @ 10 MG/HR 10 mls/hr IV .Q10H [facility] Rx#: [id number] Propofol 1,000 mg In 58.077 293.575 75.261 Empty Bag 1 bag @ Titrate IV .Q0M [facility] Rx#: [id number] Tube Feeding 480 390 180 Other 240 300 60 Output: Urine 2235 1955 680 Stool 220 100 Other: Voiding Method Indwelling Catheter Indwelling Catheter Indwelling Catheter ABP, PAP, CO, CI - Last Documented Arterial Blood Pressure 117/76 - Exam Patient is on mechanical ventilation, has tracheostomy, patient has been CPAPing about 4 hours per day. At present patient is fully awake, following commands. Patient nodding appropriately. Pupils are round and reacting. Extraocular muscles are intact. Face appears symmetric. Patient has positive gag and cough. She has tracheostomy. Patient is edentulous. 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 She can only wiggle her toes. Otherwise not able to move all 4 extremities. Reflexes are 1+ at the biceps, trace at the brachioradialis, 1 at the knees, absent ankles. Plantars are flat. - Labs CBC & Chem 7: 08/20/18 04:40 08/20/18 04:40 Labs: Abnormal Lab Results - Last 24 Hours (Table) 08/19/18 08/20/18 08/20/18 Range/Units 18:21 01:02 04:40 WBC 16.7 H (3.8-10.6) k/uL RBC 2.54 L (3.80-5.40) m/uL Hgb 7.3 L (11.4-16.0) gm/dL Hct 22.8 L (34.0-46.0) % RDW 17.7 H (11.5-15.5) % Plt Count 134 L (150-450) k/uL Neutrophils # 15.7 H (1.3-7.7) k/uL Lymphocytes # 0.3 L (1.0-4.8) k/uL ABG HCO3 (21-25) mmol/L ABG Total CO2 (19-24) mmol/L ABG O2 Saturation (94-97) % BUN (7-17) mg/dL Creatinine (0.52-1.04) mg/dL Glucose (74-99) mg/dL POC Glucose (mg/dL) 119 H 134 H (75-99) mg/dL Calcium (8.4-10.2) mg/dL Phosphorus (2.5-4.5) mg/dL Total Protein (6.3-8.2) g/dL Albumin (3.5-5.0) g/dL 08/20/18 08/20/18 08/20/18 Range/Units 04:40 05:04 05:45 WBC (3.8-10.6) k/uL RBC (3.80-5.40) m/uL Hgb (11.4-16.0) gm/dL Hct (34.0-46.0) % RDW (11.5-15.5) % Plt Count (150-450) k/uL Neutrophils # (1.3-7.7) k/uL Lymphocytes # (1.0-4.8) k/uL ABG HCO3 26 H (21-25) mmol/L ABG Total CO2 27 H (19-24) mmol/L ABG O2 Saturation 97.8 H (94-97) % BUN 126 H* (7-17) mg/dL Creatinine 3.50 H (0.52-1.04) mg/dL Glucose 111 H (74-99) mg/dL POC Glucose (mg/dL) 120 H (75-99) mg/dL Calcium 7.4 L (8.4-10.2) mg/dL Phosphorus 8.2 H (2.5-4.5) mg/dL Total Protein 4.9 L (6.3-8.2) g/dL Albumin 2.4 L (3.5-5.0) g/dL 08/20/18 Range/Units 11:48 WBC (3.8-10.6) k/uL RBC (3.80-5.40) m/uL Hgb (11.4-16.0) gm/dL Hct (34.0-46.0) % RDW (11.5-15.5) % Plt Count (150-450) k/uL Neutrophils # (1.3-7.7) k/uL Lymphocytes # (1.0-4.8) k/uL ABG HCO3 (21-25) mmol/L ABG Total CO2 (19-24) mmol/L ABG O2 Saturation (94-97) % BUN (7-17) mg/dL Creatinine (0.52-1.04) mg/dL Glucose (74-99) mg/dL POC Glucose (mg/dL) 111 H (75-99) mg/dL Calcium (8.4-10.2) mg/dL Phosphorus (2.5-4.5) mg/dL Total Protein (6.3-8.2) g/dL Albumin (3.5-5.0) g/dL Microbiology - Last 24 Hours (Table) 08/14/18 10:19 Blood Culture - Final Blood No Growth after 144 hours 08/19/18 11:45 Catheter Tip Culture - Preliminary Catheter Tip 08/19/18 11:45 Catheter Tip Culture - Preliminary Catheter Tip Assessment and Plan Assessment: * Altered mental status, likely related to toxic metabolic encephalopathy. Patient's mentation appears normal, although has slow mentation, likely from encephalopathy. * Status post cardiac arrest on 08/05/2018. * Generalized weakness of arms and legs, probably related to encephalopathy, probable critical illness neuropathy. No evidence of Lynne Hernandez, as patient still has preserved reflexes at the biceps and knees. * Pneumonia, with recent history of septic shock. * Ventilator-dependent respiratory failure. * Acute renal failure * Anemia with hemoglobin 7.1 * Recent history of stroke TIA. * Coronary artery disease with history of cardiac stenting. * X tobacco use. * Possible underlying mild cognitive impairment Plan: Patient's mental status has remarkably improved. Patient continues to be significantly weak in all 4 extremities, perhaps related to critical illness neuropathy. No evidence of GBS, acetylcholine receptor antibodies negative. Patient hopefully will benefit from rehabilitation. Avoid opiates or other narcotics/sedatives. Treatment of other medical conditions as per internal medicine/critical care. We will follow clinically.
--- NOTE | 2018-08-20 16:28 | P.PN ---
Subjective Progress Note Date: 08/20/18 (delayed charting seen at 0900) Principal diagnosis: Confusion Patient is a 63-year-old female with a past medical history of COPD, DVT, GERD, hypertension, dyslipidemia, and asthma who presented with confusion. In the ER she underwent an extensive evaluation. CT of the head was unremarkable. She was found to have a right upper lobe pneumonia and she was started on antibiotics. Infectious disease was consulted who recommended maintaining antibiotics. Pulmonary was consulted. Sputum culture was obtained which showed probable MRSA. Zosyn was stopped and she was started on Teflaro due to inability to take Zyvox because of SSRI. Nephrology was consulted due to acute kidney injury. They stopped her Lasix, lisinopril, and Toradol. On the morning of 08/06 she went into respiratory distress necessitating intubation, she then had a PEA arrests and total down time was less than 10 minutes. She was moved to the ICU and had a central line placed and was started on norepinephrine. She underwent bronchoscopy with bronchial alveolar lavage. Chest x-ray showed pulmonary infiltrate. Clindamycin was initiated. She had decreased renal function after her code. She was started on a bicarb drip. She was found to have increased PA pressures and new pulmonary hypertension and the concern was for possible pulmonary embolism she was started on IV heparin. She had not made significant improvement in her renal function and was subsequently started on dialysis. She had 3 treatments of dialysis. Neurology was consulted who felt this was likely secondary to toxic metabolic encephalopathy but could have underlying anoxic encephalopathy. She had a trach and PEG placed on 08/12/18 and tolerated this well. She was starting to wake up after being taken off all sedatives on 08/13. However overnight on 08/14 she went into respiratory distress requiring propofol and to be placed back on the vent. She also had a drop in hemoglobin and required 1 unit of pRBC. She again had dialysis on 08/14 and 08/15. She required 1 additional unit of pRBC on 08/15. She is to have permanent HD cath placed on 08/16. Her last HD was 08/15. She completed her treatment for MRSA PNA. Questran was added for her antibiotic associated diarrhea. She was undergoing CPAP trials daily. Patient seen and examined at bedside. Awake and alert on vent. Answering questions by nodding. Following commands. Denies pain. Objective - Vital Signs Vital signs: Vital Signs Temp 97.9 F 05/18/19 12:00 Pulse 82 08/20/18 15:39 Resp 34 H 08/20/18 15:00 BP 123/72 08/20/18 15:00 Pulse Ox 93 L 08/20/18 15:00 Intake & Output 08/19/18 08/20/18 08/20/18 18:59 06:59 18:59 Intake Total 0680.269 0177.575 492.116 Output Total 2455 1955 1040 Balance -1396.423 -741.425 -547.884 Weight 93.9 kg 90 kg Intake: IV 144 230 80 KVO 120 130 80 Magnesium Sulfate-D5w Pmx 100 1 gm In Dextrose/Water 1 100ml.bag @ 100 mls/hr IVPB ONCE ONE Rx#: [id number] Normal Saline Pressure 24 bag Intake, IV Titration 194.577 293.575 112.116 Amount Furosemide 100 mg In 136.500 Sodium Chloride 0.9% 90 ml @ 10 MG/HR 10 mls/hr IV .Q10H [facility] Rx#: [id number] Propofol 1,000 mg In 58.077 293.575 112.116 Empty Bag 1 bag @ Titrate IV .Q0M [facility] Rx#: [id number] Tube Feeding 480 390 240 Other 240 300 60 Output: Urine 2235 1955 940 Stool 220 100 Other: Voiding Method Indwelling Catheter Indwelling Catheter Indwelling Catheter ABP, PAP, CO, CI - Last Documented Arterial Blood Pressure 117/76 - Exam General: Ill appearing, no distress, appears at stated age Derm: multiple areas of ecchymosis, warm, dry Head: atraumatic, normocephalic, symmetric Eyes: EOMI, no lid lag, anicteric sclera Mouth: no lip lesion, mucus membranes dry, trach in place without any signs of bleeding Cardiovascular: S1S2 reg, no murmur, positive posterior tibial pulse bilateral, Lungs: Coarse breath Sounds bilaterally, no rhonchi, no rales , no accessory muscle use, + vent Abdominal: soft, nontender to palpation, no guarding, no appreciable org anomegaly, PEG in place without any signs of bleeding Ext: no gross muscle atrophy, diffuse anasarca, no contractures Neuro: no withdrawal to pain, breathing above vent Psych: Awake and alert, following commands appropriately, shaking her head yes or no appropriately. - Labs CBC & Chem 7: 08/20/18 04:40 08/20/18 04:40 Labs: Abnormal Lab Results - Last 24 Hours (Table) 08/19/18 08/20/18 08/20/18 Range/Units 18:21 01:02 04:40 WBC 16.7 H (3.8-10.6) k/uL RBC 2.54 L (3.80-5.40) m/uL Hgb 7.3 L (11.4-16.0) gm/dL Hct 22.8 L (34.0-46.0) % RDW 17.7 H (11.5-15.5) % Plt Count 134 L (150-450) k/uL Neutrophils # 15.7 H (1.3-7.7) k/uL Lymphocytes # 0.3 L (1.0-4.8) k/uL ABG HCO3 (21-25) mmol/L ABG Total CO2 (19-24) mmol/L ABG O2 Saturation (94-97) % BUN (7-17) mg/dL Creatinine (0.52-1.04) mg/dL Glucose (74-99) mg/dL POC Glucose (mg/dL) 119 H 134 H (75-99) mg/dL Calcium (8.4-10.2) mg/dL Phosphorus (2.5-4.5) mg/dL Total Protein (6.3-8.2) g/dL Albumin (3.5-5.0) g/dL 08/20/18 08/20/18 08/20/18 Range/Units 04:40 05:04 05:45 WBC (3.8-10.6) k/uL RBC (3.80-5.40) m/uL Hgb (11.4-16.0) gm/dL Hct (34.0-46.0) % RDW (11.5-15.5) % Plt Count (150-450) k/uL Neutrophils # (1.3-7.7) k/uL Lymphocytes # (1.0-4.8) k/uL ABG HCO3 26 H (21-25) mmol/L ABG Total CO2 27 H (19-24) mmol/L ABG O2 Saturation 97.8 H (94-97) % BUN 126 H* (7-17) mg/dL Creatinine 3.50 H (0.52-1.04) mg/dL Glucose 111 H (74-99) mg/dL POC Glucose (mg/dL) 120 H (75-99) mg/dL Calcium 7.4 L (8.4-10.2) mg/dL Phosphorus 8.2 H (2.5-4.5) mg/dL Total Protein 4.9 L (6.3-8.2) g/dL Albumin 2.4 L (3.5-5.0) g/dL 08/20/18 Range/Units 11:48 WBC (3.8-10.6) k/uL RBC (3.80-5.40) m/uL Hgb (11.4-16.0) gm/dL Hct (34.0-46.0) % RDW (11.5-15.5) % Plt Count (150-450) k/uL Neutrophils # (1.3-7.7) k/uL Lymphocytes # (1.0-4.8) k/uL ABG HCO3 (21-25) mmol/L ABG Total CO2 (19-24) mmol/L ABG O2 Saturation (94-97) % BUN (7-17) mg/dL Creatinine (0.52-1.04) mg/dL Glucose (74-99) mg/dL POC Glucose (mg/dL) 111 H (75-99) mg/dL Calcium (8.4-10.2) mg/dL Phosphorus (2.5-4.5) mg/dL Total Protein (6.3-8.2) g/dL Albumin (3.5-5.0) g/dL Microbiology - Last 24 Hours (Table) 08/14/18 10:19 Blood Culture - Final Blood No Growth after 144 hours 08/19/18 11:45 Catheter Tip Culture - Preliminary Catheter Tip 08/19/18 11:45 Catheter Tip Culture - Preliminary Catheter Tip Assessment and Plan Assessment: MRSA pneumonia, Acute hypoxic respiratory failure, akash in sputum - worsening leukocytosis and respiratory distress on 08/14 -Completed Teflaro and Diflucan -Pulmonary hygiene -Infectious disease recommendations appreciated Antibiotic associate diarrhea - c diff negative - flagyl per ID , on Questran, add probiotic - maintain fecal management system - stop colace Anemia, multifactoral - suspect dilutional, + FOB, but no active bleeding -Hemoglobin currently stable - s/p 2 units pRBC - repeat CBC in AM Encephalopathy -Suspect toxic and not anoxic -Neurology recommendations -Continue reorientation Thrombocytopenia, mild and reactive -Follow CBC Acute hypoxic respiratory failure -Status post tracheostomy -Vent management per pulmonary, undergoing daily sedation interruptions and CPAP weaning Acute kidney injury requiring hemodialysis -Nephrology recommendations appreciated: Last HD 08/15, has permanent HD catheter in place, on Lasix 60 every 12 per nephrology on hold last 2 doses -Avoid additional nephrotoxic agents -Follow basic metabolic profile daily -On PhosLo COPD with exacerbation -Scheduled DuoNeb's -When necessary bronchodilators -Solu-Medrol being weaned by pulmonary Hypertension, controlled -Follow blood pressures -No longer norepinephrine -Off Norvasc, metoprolol, and lisinopril Hypothyroidism -Continue with Synthroid therapy Chronic pain syndrome -Status post removal of pain pump -Once of propofol consider lortab elixir for pain. Severe pulmonary hypertension -Management per pulmonary Critical illness polyneuropathy -PT/OT evaluation -Likely will need LTAC -Neurology recommendations appreciated History of closed head injury Aborted sudden cardiac with PEA Septic shock, resolved Have attempted to d/w family on multiple occasions limiting treat and disease process. Family still wants to proceed with aggressive care. DVT prophylaxis: heparin Discussed with: Daughter, , nursing Anticipated discharge: [address]: LTAC A total of 25 minutes was spent on the care of this complex patient more than 50% of the time was spent in counseling and care coordination.
[2018-08-20 18:11] LABS: Glucose,Whole Blood 124 mg/dL (75-99)
[2018-08-20] MEDS: ACETAMINOPHEN TAB 325 MG TAB PO PRN (21:25)
[2018-08-20] MEDS: QUEtiapine 200 MG TAB PO SCH (21:26)
[2018-08-20] MEDS: AMITRIPTYLINE HCL 50 MG TAB PO SCH (21:55)
[2018-08-20 23:51] LABS: Glucose,Whole Blood 112 mg/dL (75-99)
[2018-08-21] MEDS: INSULIN ASPART (NovoLOG) 100 UNIT/ML VIAL SQ SCH ×4 (00:34→17:57)
[2018-08-21] MEDS: NOREPINEPHRINE 32 MG in SODIUM CHLORIDE 0.9% 218 ML IV SCH (00:35)
[2018-08-21] MEDS: PROPOFOL 1,000 MG in EMPTY BAG 1 BAG IV SCH ×5 (02:00→20:44)
[2018-08-21] MEDS: IPRATROPIUM-ALBUTEROL 3 ML NEB INHALATION PRN (03:08)
[2018-08-21 04:20] LABS: Anisocytosis Slight; Basophils % (A) 0 %; Eosinophils % (A) 0 %; HGB 7.3 gm/dL (11.4-16.0); Lymphocytes # (A) 0.2 k/uL (1.0-4.8); Lymphocytes % (A) 1 %; MCH 28.6 pg (25.0-35.0); MCHC 31.6 g/dL (31.0-37.0); MCV 90.4 fL (80.0-100.0); Mean Platelet Volume 8.4; Monocytes # (A) 0.3 k/uL (0-1.0); Monocytes % (A) 3 %; Neutrophils # (A) 12.1 k/uL (1.3-7.7); Neutrophils % (A) 95 %; Platelet Count 141 k/uL (150-450); RBC 2.54 m/uL (3.80-5.40); RDW 17.8 % (11.5-15.5); WBC 12.7 k/uL (3.8-10.6)
[2018-08-21 04:36] LABS: Albumin 2.4 g/dL (3.5-5.0); Calcium 7.5 mg/dL (8.4-10.2); Magnesium 1.9 mg/dL (1.6-2.3); Phosphorus 8.6 mg/dL (2.5-4.5); Potassium 4.6 mmol/L (3.5-5.1); Total Protein 4.9 g/dL (6.3-8.2)
[2018-08-21 04:40] LABS: ABG Base Excess -0.1 mmol/L; ABG HCO3 25 mmol/L (21-25); ABG Oxygen Saturation 98.1 % (94-97); ABG PCO2 39 mmHg (35-45); ABG PH 7.41 (7.35-7.45); ABG PO2 106 mmHg (83-108); ABG TCO2 26 mmol/L (19-24)
[2018-08-21 05:08] LABS: Glucose,Whole Blood 136 mg/dL (75-99)
[2018-08-21] MEDS: LEVOTHYROXINE 75 MCG TAB PEG/G-TUBE SCH (06:02)
--- NOTE | 2018-08-21 06:28 | XR ---
EXAMINATION TYPE: XR chest 1V portable DATE OF EXAM: 08/21/2018 HISTORY: SOB. REFERENCE: Previous study dated 08/20/2018. FINDINGS: A tracheostomy tube remains in place. Its tip overlies the tracheal air column in this sing le frontal projection. There is a large-bore, double-lumen catheter in place. Its tip is in the right atrium. There is multichamber cardiac enlargement. There is alveolar and interstitial airspace disease presen t, worse on the left than the right. This is not changed significantly from previous. I suspect bilat eral effusions. IMPRESSION: NO SIGNIFICANT INTERVAL CHANGE IN THE APPEARANCE OF THE CHEST.
[2018-08-21] MEDS: CALCIUM ACETATE 667 MG CAP PO SCH ×3 (07:29→16:50)
[2018-08-21] MEDS: IPRATROPIUM-ALBUTEROL 3 ML NEB INHALATION SCH ×4 (08:15→18:58)
[2018-08-21] MEDS: methylPREDNISolone SOD SUCCI 40 MG/ML 1 ML VIAL IV SCH ×2 (08:43→20:04)
[2018-08-21] MEDS: FOLIC ACID 1 MG TAB PO SCH (08:43)
[2018-08-21] MEDS: HEPARIN SODIUM,PORCINE 5,000 UNIT/ML 1 ML VIAL SQ SCH ×2 (08:43→20:05)
[2018-08-21] MEDS: ATORVASTATIN 40 MG TAB PO SCH (08:43)
[2018-08-21] MEDS: CHLORHEXIDINE GLUCONATE 15 ML CUP MUCOUS MEM SCH ×2 (08:43→20:05)
[2018-08-21] MEDS: LACTOBACILLUS ACIDOPH & BULGAR 1 EACH PACKET PEG/G-TUBE SCH ×2 (08:43→20:04)
[2018-08-21] MEDS: ASPIRIN 81 MG PO SCH (08:43)
[2018-08-21] MEDS: CLOPIDOGREL 75 MG TAB PO SCH (08:43)
[2018-08-21] MEDS: ALPRAZolam 1 MG TAB PO SCH ×2 (08:43→20:04)
[2018-08-21] MEDS: metroNIDAZOLE 500 MG TAB OG-TUBE SCH ×3 (08:43→21:30)
[2018-08-21] MEDS: PANTOPRAZOLE 40 MG/10 ML VIAL IVP SCH ×2 (08:44→20:05)
[2018-08-21] MEDS: SERTRALINE 100 MG TAB PO SCH (08:44)
[2018-08-21] MEDS: CHOLESTYRAMINE (WITH SUGAR) 4 GM PACKET PEG/G-TUBE SCH ×2 (08:44→16:50)
[2018-08-21] MEDS: FUROSEMIDE 10 MG/ML 10 ML VIAL IV SCH (09:02)
--- NOTE | 2018-08-21 09:16 | P.PN ---
Subjective Patient is seen in follow-up for acute kidney injury. Her baseline creatinine is near 1. Patient required hemodialysis this admission. Last treatment was on August 15. Lasix has been held as of August 20. Urine output has been over 100 mL an hour. She underwent tracheostomy this admission. Creatinine today is a little improved at 3.26 and BUN is up to 128. She is on IV steroids. She is also on tube feeding. Vital signs are stable. General: The patient appeared well nourished and normally developed. Tracheostomy noted. HEENT: Head exam is unremarkable. Neck is without jugular venous distension. LUNGS: Breath sounds decreased. HEART: Rate and Rhythm are regular. First and second heart sounds normal. No murmurs, rubs or gallops. ABDOMEN: Abdominal exam reveals normal bowel sounds. Nontender. EXTREMITITES: 1+ edema. Objective - Vital Signs Vital signs: Vital Signs Temp 97.9 F 08/21/18 08:00 Pulse 82 08/21/18 09:00 Resp 31 H 08/21/18 09:00 BP 103/68 08/21/18 09:00 Pulse Ox 93 L 08/21/18 09:00 Intake & Output 08/20/18 08/21/18 08/21/18 18:59 06:59 18:59 Intake Total 693.146 546.580 96.825 Output Total 1480 1130 500 Balance -786.854 -583.420 -403.175 Weight 87 kg Intake: IV 110 120 30 KVO 110 120 30 Intake, IV Titration 163.146 276.580 66.825 Amount Propofol 1,000 mg In 163.146 276.580 66.825 Empty Bag 1 bag @ Titrate IV .Q0M [facility] [place] Rx#: [id number] Tube Feeding 330 120 Other 90 30 Output: Urine 1280 1130 330 Stool 200 170 Other: Voiding Method Indwelling Catheter Indwelling Catheter ABP, PAP, CO, CI - Last Documented Arterial Blood Pressure 117/76 - Labs CBC & Chem 7: 08/21/18 03:58 08/21/18 03:58 Labs: Abnormal Lab Results - Last 24 Hours (Table) 08/20/18 08/20/18 08/20/18 Range/Units 11:48 18:08 23:48 WBC (3.8-10.6) k/uL RBC (3.80-5.40) m/uL Hgb (11.4-16.0) gm/dL Hct (34.0-46.0) % RDW (11.5-15.5) % Plt Count (150-450) k/uL Neutrophils # (1.3-7.7) k/uL Lymphocytes # (1.0-4.8) k/uL ABG Total CO2 (19-24) mmol/L ABG O2 Saturation (94-97) % BUN (7-17) mg/dL Creatinine (0.52-1.04) mg/dL Glucose (74-99) mg/dL POC Glucose (mg/dL) 111 H 124 H 112 H (75-99) mg/dL Calcium (8.4-10.2) mg/dL Phosphorus (2.5-4.5) mg/dL Total Protein (6.3-8.2) g/dL Albumin (3.5-5.0) g/dL 08/21/18 08/21/18 08/21/18 Range/Units 03:58 03:58 04:36 WBC 12.7 H (3.8-10.6) k/uL RBC 2.54 L (3.80-5.40) m/uL Hgb 7.3 L (11.4-16.0) gm/dL Hct 23.0 L (34.0-46.0) % RDW 17.8 H (11.5-15.5) % Plt Count 141 L (150-450) k/uL Neutrophils # 12.1 H (1.3-7.7) k/uL Lymphocytes # 0.2 L (1.0-4.8) k/uL ABG Total CO2 26 H (19-24) mmol/L ABG O2 Saturation 98.1 H (94-97) % BUN 128 H* (7-17) mg/dL Creatinine 3.26 H (0.52-1.04) mg/dL Glucose 126 H (74-99) mg/dL POC Glucose (mg/dL) (75-99) mg/dL Calcium 7.5 L (8.4-10.2) mg/dL Phosphorus 8.6 H (2.5-4.5) mg/dL Total Protein 4.9 L (6.3-8.2) g/dL Albumin 2.4 L (3.5-5.0) g/dL 08/21/18 Range/Units 05:05 WBC (3.8-10.6) k/uL RBC (3.80-5.40) m/uL Hgb (11.4-16.0) gm/dL Hct (34.0-46.0) % RDW (11.5-15.5) % Plt Count (150-450) k/uL Neutrophils # (1.3-7.7) k/uL Lymphocytes # (1.0-4.8) k/uL ABG Total CO2 (19-24) mmol/L ABG O2 Saturation (94-97) % BUN (7-17) mg/dL Creatinine (0.52-1.04) mg/dL Glucose (74-99) mg/dL POC Glucose (mg/dL) 136 H (75-99) mg/dL Calcium (8.4-10.2) mg/dL Phosphorus (2.5-4.5) mg/dL Total Protein (6.3-8.2) g/dL Albumin (3.5-5.0) g/dL Microbiology - Last 24 Hours (Table) 08/14/18 10:19 Blood Culture - Final Blood No Growth after 144 hours 08/19/18 11:45 Catheter Tip Culture - Preliminary Catheter Tip 08/19/18 11:45 Catheter Tip Culture - Preliminary Catheter Tip Assessment and Plan Plan: Assessment: 1. Acute kidney injury secondary to ATN secondary to sepsis. Baseline crea tinine is near 1. Renal function slightly improved today - creatinine 3.26. Last hemodialysis was on August 15. C3 level was noted to be slightly low and rest of the serologies have been negative. Creatinine 3.5 today. BUN is elevated which is partially due to IV steroids. 2. Septic shock secondary to pneumonia. Maintained on antibiotics and antifungal per infectious disease. 3. Acute blood loss anemia with no active bleeding. Better after blood transfusion. Maintained on Aranesp. Status post ICD DDAVP on August 18. 4. Volume overload. Improved with diuresis. 5. Acute hypoxic respiratory failure secondary to pneumonia. Status post tracheostomy this admission. 6. Hyperphosphatemia secondary to acute kidney injury maintained on PhosLo. Plan: Continue to hold Lasix today as urine output is adequate. Continue to hold off on hemodialysis for now. Continue to monitor renal function and urine output. Increase dose of PhosLo.
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
[2018-08-21 11:55] LABS: Glucose,Whole Blood 120 mg/dL (75-99)
--- NOTE | 2018-08-21 15:15 | P.PN ---
Subjective Progress Note Date: 08/21/18 (delayed charting seen at 0930) Principal diagnosis: Confusion Patient is a 63-year-old female with a past medical history of COPD, DVT, GERD, hypertension, dyslipidemia, and asthma who presented with confusion. In the ER she underwent an extensive evaluation. CT of the head was unremarkable. She was found to have a right upper lobe pneumonia and she was started on antibiotics. Infectious disease was consulted who recommended maintaining antibiotics. Pulmonary was consulted. Sputum culture was obtained which showed probable MRSA. Zosyn was stopped and she was started on Teflaro due to inability to take Zyvox because of SSRI. Nephrology was consulted due to acute kidney injury. They stopped her Lasix, lisinopril, and Toradol. On the morning of 08/06 she went into respiratory distress necessitating intubation, she then had a PEA arrests and total down time was less than 10 minutes. She was moved to the ICU and had a central line placed and was started on norepinephrine. She underwent bronchoscopy with bronchial alveolar lavage. Chest x-ray showed pulmonary infiltrate. Clindamycin was initiated. She had decreased renal function after her code. She was started on a bicarb drip. She was found to have increased PA pressures and new pulmonary hypertension and the concern was for possible pulmonary embolism she was started on IV heparin. She had not made significant improvement in her renal function and was subsequently started on dialysis. She had 3 treatments of dialysis. Neurology was consulted who felt this was likely secondary to toxic metabolic encephalopathy but could have underlying anoxic encephalopathy. She had a trach and PEG placed on 08/12/18 and tolerated this well. She was starting to wake up after being taken off all sedatives on 08/13. However overnight on 08/14 she went into respiratory distress requiring propofol and to be placed back on the vent. She also had a drop in hemoglobin and required 1 unit of pRBC. She again had dialysis on 08/14 and 08/15. She required 1 additional unit of pRBC on 08/15. She did have permanent HD cath placed on 08/16. Her last HD was 08/15. She completed her treatment for MRSA PNA. Questran was added for her antibiotic associated diarrhea. She is undergoing CPAP trials daily. Hemoglobin has been stable. Patient seen and examined at bedside. Awake and alert on vent. able to close eyes and keep them closed. Not nodding yes/no today, but propofol just turned off. Objective - Vital Signs Vital signs: Vital Signs Temp 98.1 F 08/21/18 12:00 Pulse 86 08/21/18 14:00 Resp 34 H 08/21/18 14:00 BP 108/70 08/21/18 14:00 Pulse Ox 93 L 08/21/18 14:00 Intake & Output 08/20/18 08/21/18 08/21/18 18:59 06:59 18:59 Intake Total 693.146 546.580 450.000 Output Total 1480 1130 1065 Balance -786.854 -583.420 -615.000 Weight 87 kg Intake: IV 110 120 80 KVO 110 120 80 Intake, IV Titration 163.146 276.580 100.000 Amount Propofol 1,000 mg In 163.146 276.580 100.000 Empty Bag 1 bag @ Titrate IV .Q0M [facility] Rx#: [id number] Tube Feeding 330 120 210 Other 90 30 60 Output: Urine 1280 1130 895 Stool 200 170 Other: Voiding Method Indwelling Catheter Indwelling Catheter Indwelling Catheter ABP, PAP, CO, CI - Last Documented Arterial Blood Pressure 117/76 - Exam General: Ill appearing, no distress, appears at stated age Derm: multiple areas of ecchymosis, warm, dry Head: atraumatic, normocephalic, symmetric Eyes: EOMI, no lid lag, anicteric sclera Mouth: no lip lesion, mucus membranes dry, trach in place without any signs of bleeding Cardiovascular: S1S2 reg, no murmur, positive posterior tibial pulse bilateral, Lungs: Coarse breath Sounds bilaterally, no rhonchi, no rales , no accessory muscle use, + vent Abdominal: soft, nontender to palpation, no guarding, no appreciable organomegaly, PEG in place without any signs of bleeding Ext: + gross muscle atrophy, diffuse anasarca, no contractures Neuro: on CPAP trial, able to follow simple commands, attempts withdrawal to pain Psych: Awake and alert, following commands appropriately - Labs CBC & Chem 7: 08/21/18 03:58 08/21/18 03:58 Labs: Abnormal Lab Results - Last 24 Hours (Table) 08/20/18 08/20/18 08/21/18 Range/Units 18:08 23:48 03:58 WBC 12.7 H (3.8-10.6) k/uL RBC 2.54 L (3.80-5.40) m/uL Hgb 7.3 L (11.4-16.0) gm/dL Hct 23.0 L (34.0-46.0) % RDW 17.8 H (11.5-15.5) % Plt Count 141 L (150-450) k/uL Neutrophils # 12.1 H (1.3-7.7) k/uL Lymphocytes # 0.2 L (1.0-4.8) k/uL ABG Total CO2 (19-24) mmol/L ABG O2 Saturation (94-97) % BUN (7-17) mg/dL Creatinine (0.52-1.04) mg/dL Glucose (74-99) mg/dL POC Glucose (mg/dL) 124 H 112 H (75-99) mg/dL Calcium (8.4-10.2) mg/dL Phosphorus (2.5-4.5) mg/dL Total Protein (6.3-8.2) g/dL Albumin (3.5-5.0) g/dL 08/21/18 08/21/18 08/21/18 Range/Units 03:58 04:36 05:05 WBC (3.8-10.6) k/uL RBC (3.80-5.40) m/uL Hgb (11.4-16.0) gm/dL Hct (34.0-46.0) % RDW (11.5-15.5) % Plt Count (150-450) k/uL Neutrophils # (1.3-7.7) k/uL Lymphocytes # (1.0-4.8) k/uL ABG Total CO2 26 H (19-24) mmol/L ABG O2 Saturation 98.1 H (94-97) % BUN 128 H* (7-17) mg/dL Creatinine 3.26 H (0.52-1.04) mg/dL Glucose 126 H (74-99) mg/dL POC Glucose (mg/dL) 136 H (75-99) mg/dL Calcium 7.5 L (8.4-10.2) mg/dL Phosphorus 8.6 H (2.5-4.5) mg/dL Total Protein 4.9 L (6.3-8.2) g/dL Albumin 2.4 L (3.5-5.0) g/dL 08/21/18 Range/Units 11:52 WBC (3.8-10.6) k/uL RBC (3.80-5.40) m/uL Hgb (11.4-16.0) gm/dL Hct (34.0-46.0) % RDW (11.5-15.5) % Plt Count (150-450) k/uL Neutrophils # (1.3-7.7) k/uL Lymphocytes # (1.0-4.8) k/uL ABG Total CO2 (19-24) mmol/L ABG O2 Saturation (94-97) % BUN (7-17) mg/dL Creatinine (0.52-1.04) mg/dL Glucose (74-99) mg/dL POC Glucose (mg/dL) 120 H (75-99) mg/dL Calcium (8.4-10.2) mg/dL Phosphorus (2.5-4.5) mg/dL Total Protein (6.3-8.2) g/dL Albumin (3.5-5.0) g/dL Microbiology - Last 24 Hours (Table) 08/19/18 11:45 Catheter Tip Culture - Final Catheter Tip 08/19/18 11:45 Catheter Tip Culture - Final Catheter Tip 08/14/18 10:19 Blood Culture - Final Blood No Growth after 144 hours Assessment and Plan 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 -Neurology recommendations appreciated -Continue reorientation - continue sedation trials Antibiotic associate diarrhea - c diff negative - flagyl per ID , on Questran, probiotic - maintain fecal management system Anemia, multifactoral - suspect dilutional, + FOB, but no active bleeding -Hemoglobin currently stable - s/p 2 units pRBC - repeat CBC in AM Thrombocytopenia, mild and reactive -Follow CBC Acute hypoxic respiratory failure -Status post tracheostomy -Vent management per pulmonary, undergoing daily sedation interruptions and CPAP weaning Acute kidney injury requiring hemodialysis -Nephrology recommendations appreciated: Last HD 08/15, has permanent HD catheter in place -Avoid additional nephrotoxic agents -Follow basic metabolic profile daily -On PhosLo COPD with exacerbation -Scheduled DuoNeb's -When necessary bronchodilators -Solu-Medrol being weaned by pulmonary Hypertension, controlled -Follow blood pressures -Off Norvasc, metoprolol, and lisinopril Hypothyroidism -Continue with Synthroid therapy Chronic pain syndrome -Status post removal of pain pump -tylenol for pain Severe pulmonary hypertension -Management per pulmonary Critical illness polyneuropathy -PT/OT evaluation -Likely will need LTAC -Neurology recommendations appreciated History of closed head injury Aborted sudden cardiac with PEA Septic shock, resolved MRSA pneumonia, Acute hypoxic respiratory failure, akash in sputum, resolved DVT prophylaxis: heparin Discussed with: nursing Anticipated discharge: 1-[address]: LTAC A total of 25 minutes was spent on the care of this complex patient more than 50% of the time was spent in counseling and care coordination.
--- NOTE | 2018-08-21 17:37 | P.PN ---
Subjective Progress Note Date: 08/21/18 Patient's family members were not present today. Patient currently is on propofol 45 g, sedated. Per nurse, patient had sedation of his morning, and was on CPAP for 4 hours. No new concerns. Her most recent blood test shows WBC 6.7, hemoglobin 7.3, platelets 134. Sodium potassium are normal. Today the BUN is 126, creatinine 3.50. Yesterday BUN was 114, creatinine 3.33. Liver functions are normal. Acetylcholine receptor antibodies are negative. Hepatitis panel negative. DsDNA negative. Ant ineutrophilic Cytoplasmic antibodies negative. Hemoglobin A1c 5.3 on 08/11/2018. Patient had an EEG performed previously, which revealed background slowing of moderate degree, suggestive of toxic metabolic encephalopathy or related to diffuse structural brain abnormality. No epileptiform activity was seen. Computed tomography scan of head showed no acute process. Small vessel disease. Some lacunar strokes in the basal ganglia bilaterally. Objective - Vital Signs Vital signs: Vital Signs Temp 98.5 F 08/21/18 16:00 Pulse 90 08/21/18 17:00 Resp 36 H 08/21/18 17:00 BP 104/61 08/21/18 17:00 Pulse Ox 94 L 08/21/18 17:00 Intake & Output 08/20/18 08/21/18 08/21/18 18:59 06:59 18:59 Intake Total 693.146 546.580 640.862 Output Total 1480 1130 1405 Balance -786.854 -583.420 -764.138 Weight 87 kg Intake: IV 110 120 110 KVO 110 120 110 Intake, IV Titration 163.146 276.580 170.862 Amount Propofol 1,000 mg In 163.146 276.580 170.862 Empty Bag 1 bag @ Titrate IV .Q0M [facility] Rx#: [id number] Tube Feeding 330 120 270 Other 90 30 90 Output: Urine 1280 1130 1235 Stool 200 170 Other: Voiding Method Indwelling Catheter Indwelling Catheter Indwelling Catheter ABP, PAP, CO, CI - Last Documented Arterial Blood Pressure 117/76 - Exam Patient is on mechanical ventilation, has tracheostomy, patient has been CPAPing about 4 hours per day. Patient at present is sedated. - Labs CBC & Chem 7: 08/21/18 03:58 08/21/18 03:58 Labs: Abnormal Lab Results - Last 24 Hours (Table) 08/20/18 08/20/18 08/21/18 Range/Units 18:08 23:48 03:58 WBC 12.7 H (3.8-10.6) k/uL RBC 2.54 L (3.80-5.40) m/uL Hgb 7.3 L (11.4-16.0) gm/dL Hct 23.0 L (34.0-46.0) % RDW 17.8 H (11.5-15.5) % Plt Count 141 L (150-450) k/uL Neutrophils # 12.1 H (1.3-7.7) k/uL Lymphocytes # 0.2 L (1.0-4.8) k/uL ABG Total CO2 (19-24) mmol/L ABG O2 Saturation (94-97) % BUN (7-17) mg/dL Creatinine (0.52-1.04) mg/dL Glucose (74-99) mg/dL POC Glucose (mg/dL) 124 H 112 H (75-99) mg/dL Calcium (8.4-10.2) mg/dL Phosphorus (2.5-4.5) mg/dL Total Protein (6.3-8.2) g/dL Albumin (3.5-5.0) g/dL 08/21/18 08/21/18 08/21/18 Range/Units 03:58 04:36 05:05 WBC (3.8-10.6) k/uL RBC (3.80-5.40) m/uL Hgb (11.4-16.0) gm/dL Hct (34.0-46.0) % RDW (11.5-15.5) % Plt Count (150-450) k/uL Neutrophils # (1.3-7.7) k/uL Lymphocytes # (1.0-4.8) k/uL ABG Total CO2 26 H (19-24) mmol/L ABG O2 Saturation 98.1 H (94-97) % BUN 128 H* (7-17) mg/dL Creatinine 3.26 H (0.52-1.04) mg/dL Glucose 126 H (74-99) mg/dL POC Glucose (mg/dL) 136 H (75-99) mg/dL Calcium 7.5 L (8.4-10.2) mg/dL Phosphorus 8.6 H (2.5-4.5) mg/dL Total Protein 4.9 L (6.3-8.2) g/dL Albumin 2.4 L (3.5-5.0) g/dL 08/21/18 Range/Units 11:52 WBC (3.8-10.6) k/uL RBC (3.80-5.40) m/uL Hgb (11.4-16.0) gm/dL Hct (34.0-46.0) % RDW (11.5-15.5) % Plt Count (150-450) k/uL Neutrophils # (1.3-7.7) k/uL Lymphocytes # (1.0-4.8) k/uL ABG Total CO2 (19-24) mmol/L ABG O2 Saturation (94-97) % BUN (7-17) mg/dL Creatinine (0.52-1.04) mg/dL Glucose (74-99) mg/dL POC Glucose (mg/dL) 120 H (75-99) mg/dL Calcium (8.4-10.2) mg/dL Phosphorus (2.5-4.5) mg/dL Total Protein (6.3-8.2) g/dL Albumin (3.5-5.0) g/dL Microbiology - Last 24 Hours (Table) 08/19/18 11:45 Catheter Tip Culture - Final Catheter Tip 08/19/18 11:45 Catheter Tip Culture - Final Catheter Tip Assessment and Plan Assessment: * Altered mental status, likely related to toxic metabolic encephalopathy. Patient's mentation appears normal, although has slow mentation, likely from encephalopathy. * Status post cardiac arrest on 08/05/2018. * Generalized weakness of arms and legs, probably related to critical illness neuropathy. * Pneumonia, with recent history of septic shock. * Ventilator-dependent respiratory failure. * Acute renal failure * Anemia with hemoglobin 7.1 * Recent history of stroke TIA. * Coronary artery disease with history of cardiac stenting. * X tobacco use. * Possible underlying mild cognitive impairment Plan: Patient's mental status has remarkably improved. Patient continues to be significantly weak in all 4 extremities, perhaps related to critical illness neuropathy. No evidence of GBS, acetylcholine receptor antibodies negative. Patient hopefully will benefit from rehabilitation. Avoid opiates or other narcotics/sedatives. Treatment of other medical conditions as per internal medicine/critical care. We will follow clinically.
[2018-08-21 18:10] LABS: Glucose,Whole Blood 125 mg/dL (75-99)
[2018-08-21] MEDS: QUEtiapine 200 MG TAB PO SCH (20:03)
[2018-08-21] MEDS: AMITRIPTYLINE HCL 50 MG TAB PO SCH (20:05)
--- NOTE | 2018-08-22 00:38 | P.PN ---
Subjective Progress Note Date: 08/21/18 Principal diagnosis: Leukocytosis and diarrhea The patient remains to be afebrile the patient is hemodynamically stable not requiring any pressor support the patient did have good urine output has been tolerating tube feeds and her diarrhea slowed down per the nurse taking care of the patient Objective - Vital Signs Vital signs: Vital Signs Temp 98.5 F 08/21/18 16:00 Pulse 90 08/21/18 20:00 Resp 31 H 08/21/18 20:00 BP 109/65 08/21/18 20:00 Pulse Ox 96 08/21/18 20:00 Intake & Output 08/21/18 08/21/18 08/22/18 06:59 18:59 06:59 Intake Total 546.580 710.862 137.305 Output Total 1130 1515 200 Balance -583.420 -804.138 -62.695 Weight 87 kg Intake: IV 120 120 20 KVO 120 120 20 Intake, IV Titration 276.580 170.862 87.305 Amount Propofol 1,000 mg In 276.580 170.862 87.305 Empty Bag 1 bag @ Titrate IV .Q0M [facility] Rx#: [id number] Tube Feeding 120 330 30 Other 30 90 Output: Urine 1130 1345 200 Stool 170 Other: Voiding Method Indwelling Catheter Indwelling Catheter Indwelling Catheter ABP, PAP, CO, CI - Last Documented Arterial Blood Pressure 117/76 - Exam GENERAL DESCRIPTION:[ Middle-aged female intubated through the trach on the vent] HEENT: [Oral mucous membrane is dry] EYES : pallor or scleral icterus] RESPIRATORY SYSTEM: [Unlabored breathing decreased breath sound at the base] CARDIA VASCULAR SYSTEM: [S1-S2 regular rate and rhythm no murmur] GI: [Abdominal soft there's no tenderness no organomegaly] EXTREMITIES: [No edema feet] - Labs CBC & Chem 7: 08/21/18 03:58 08/21/18 03:58 Labs: Abnormal Lab Results - Last 24 Hours (Table) 08/20/18 08/21/18 08/21/18 Range/Units 23:48 03:58 03:58 WBC 12.7 H (3.8-10.6) k/uL RBC 2.54 L (3.80-5.40) m/uL Hgb 7.3 L (11.4-16.0) gm/dL Hct 23.0 L (34.0-46.0) % RDW 17.8 H (11.5-15.5) % Plt Count 141 L (150-450) k/uL Neutrophils # 12.1 H (1.3-7.7) k/uL Lymphocytes # 0.2 L (1.0-4.8) k/uL ABG Total CO2 (19-24) mmol/L ABG O2 Saturation (94-97) % BUN 128 H* (7-17) mg/dL Creatinine 3.26 H (0.52-1.04) mg/dL Glucose 126 H (74-99) mg/dL POC Glucose (mg/dL) 112 H (75-99) mg/dL Calcium 7.5 L (8.4-10.2) mg/dL Phosphorus 8.6 H (2.5-4.5) mg/dL Total Protein 4.9 L (6.3-8.2) g/dL Albumin 2.4 L (3.5-5.0) g/dL 08/21/18 08/21/18 08/21/18 Range/Units 04:36 05:05 11:52 WBC (3.8-10.6) k/uL RBC (3.80-5.40) m/uL Hgb (11.4-16.0) gm/dL Hct (34.0-46.0) % RDW (11.5-15.5) % Plt Count (150-450) k/uL Neutrophils # (1.3-7.7) k/uL Lymphocytes # (1.0-4.8) k/uL ABG Total CO2 26 H (19-24) mmol/L ABG O2 Saturation 98.1 H (94-97) % BUN (7-17) mg/dL Creatinine (0.52-1.04) mg/dL Glucose (74-99) mg/dL POC Glucose (mg/dL) 136 H 120 H (75-99) mg/dL Calcium (8.4-10.2) mg/dL Phosphorus (2.5-4.5) mg/dL Total Protein (6.3-8.2) g/dL Albumin (3.5-5.0) g/dL 08/21/18 Range/Units 17:55 WBC (3.8-10.6) k/uL RBC (3.80-5.40) m/uL Hgb (11.4-16.0) gm/dL Hct (34.0-46.0) % RDW (11.5-15.5) % Plt Count (150-450) k/uL Neutrophils # (1.3-7.7) k/uL Lymphocytes # (1.0-4.8) k/uL ABG Total CO2 (19-24) mmol/L ABG O2 Saturation (94-97) % BUN (7-17) mg/dL Creatinine (0.52-1.04) mg/dL Glucose (74-99) mg/dL POC Glucose (mg/dL) 125 H (75-99) mg/dL Calcium (8.4-10.2) mg/dL Phosphorus (2.5-4.5) mg/dL Total Protein (6.3-8.2) g/dL Albumin (3.5-5.0) g/dL Microbiology - Last 24 Hours (Table) 08/19/18 11:45 Catheter Tip Culture - Final Catheter Tip 08/19/18 11:45 Catheter Tip Culture - Final Catheter Tip Assessment and Plan Assessment: 1-patient with MRSA pneumonia that has been adequately treated 2-elevated white count more likely multifactorial possible steroid effect plus minus secondary to her central and arterial line which has been discontinued--white count is down to 12,000 3-diarrhea antibiotic associated--- stool for C. diff negative 4-oropharyngeal candidiasis Plan: 1-the patient to continue on Flagyl Questran and Diflucan 2-the pt arterial and central line cultures, have been negative Time with Patient: Less than 30
[2018-08-22 00:57] LABS: Glucose,Whole Blood 129 mg/dL (75-99)
[2018-08-22] MEDS: NOREPINEPHRINE 32 MG in SODIUM CHLORIDE 0.9% 218 ML IV SCH (04:21)
[2018-08-22] MEDS: PROPOFOL 1,000 MG in EMPTY BAG 1 BAG IV SCH ×3 (04:24→19:07)
[2018-08-22 04:33] LABS: ABG Base Excess -1.4 mmol/L; ABG HCO3 24 mmol/L (21-25); ABG Oxygen Saturation 98.1 % (94-97); ABG PCO2 38 mmHg (35-45); ABG PO2 109 mmHg (83-108); ABG TCO2 25 mmol/L (19-24)
[2018-08-22 04:55] LABS: Anisocytosis Slight; Basophils % (A) 0 %; Eosinophils % (A) 0 %; HCT 21.2 % (34.0-46.0); HGB 7.3 gm/dL (11.4-16.0); Lymphocytes # (A) 0.2 k/uL (1.0-4.8); Lymphocytes % (A) 2 %; MCH 31.1 pg (25.0-35.0); MCHC 34.2 g/dL (31.0-37.0); MCV 90.9 fL (80.0-100.0); Mean Platelet Volume 8.5; Monocytes # (A) 0.4 k/uL (0-1.0); Monocytes % (A) 4 %; Neutrophils # (A) 9.9 k/uL (1.3-7.7); Neutrophils % (A) 93 %; Platelet Count 132 k/uL (150-450); RBC 2.33 m/uL (3.80-5.40); RDW 17.8 % (11.5-15.5); WBC 10.7 k/uL (3.8-10.6)
[2018-08-22 05:07] LABS: Albumin 2.3 g/dL (3.5-5.0); Calcium 7.5 mg/dL (8.4-10.2); Magnesium 1.8 mg/dL (1.6-2.3); Potassium 4.4 mmol/L (3.5-5.1); Total Bilirubin 0.9 mg/dL (0.2-1.3); Total Protein 4.9 g/dL (6.3-8.2)
[2018-08-22 06:12] LABS: Glucose,Whole Blood 125 mg/dL (75-99)
[2018-08-22] MEDS: INSULIN ASPART (NovoLOG) 100 UNIT/ML VIAL SQ SCH ×3 (06:39→18:59)
[2018-08-22] MEDS: CALCIUM ACETATE 667 MG CAP PO SCH ×3 (06:46→18:59)
[2018-08-22] MEDS: LEVOTHYROXINE 75 MCG TAB PEG/G-TUBE SCH (06:46)
--- NOTE | 2018-08-22 07:24 | XR ---
EXAMINATION TYPE: XR chest 1V portable DATE OF EXAM: 08/22/2018 COMPARISON: 08/21/2018 HISTORY: Shortness of breath TECHNIQUE: Single frontal view of the chest is obtained. FINDINGS: A tracheostomy tube remains in place. Its tip overlies the tracheal air column in this sin gle frontal projection. There is a large-bore, double- lumen catheter in place. Its tip is in the rig ht atrium. There is stable cardiomegaly. There is alveolar and interstitial airspace disease present, worse on the left than the right. This is not changed significantly from previous. Bilateral small p leural effusions. Right-sided PICC line seen with tip overlying the right atrium. IMPRESSION: 1. Diffuse airspace disease with bilateral effusions persist. Differential diagnosis includes pulmona ry edema or diffuse pneumonia.
--- NOTE | 2018-08-22 08:12 | P.PN ---
Subjective Patient is seen in follow-up for acute kidney injury. Her baseline creatinine is near 1. Patient required hemodialysis this admission. Last treatment was on August 15. Lasix has been held as of August 20. Urine output has been about 100 mL an hour. She underwent tracheostomy this admission. Renal function is improved. Creatinine 2.96 today. BUN is stable at 125. She is on IV steroids. She is also on tube feeding. Vital signs are stable. General: The patient appeared well nourished and normally developed. Tracheostomy noted. HEENT: Head exam is unremarkable. Neck is without jugular venous distension. LUNGS: Breath sounds decreased. HEART: Rate and Rhythm are regular. First and second heart sounds normal. No murmurs, rubs or gallops. ABDOMEN: Abdominal exam reveals normal bowel sounds. Nontender. EXTREMITITES: 1+ edema. Objective - Vital Signs Vital signs: Vital Signs Temp 98.5 F 08/22/18 04:00 Pulse 77 08/22/18 07:00 Resp 35 H 08/22/18 07:00 BP 104/73 08/22/18 07:00 Pulse Ox 99 08/22/18 07:00 Intake & Output 08/21/18 08/22/18 08/22/18 18:59 06:59 18:59 Intake Total 710.862 977.305 Output Total 1515 1320 Balance -804.138 -342.695 Weight 85.7 kg Intake: IV 120 130 KVO 120 130 Intake, IV Titration 170.862 187.305 Amount Propofol 1,000 mg In 170.862 187.305 Empty Bag 1 bag @ Titrate IV .Q0M [facility] Rx#: [id number] Tube Feeding 330 390 Other 90 270 Output: Urine 1345 1320 Stool 170 Other: Voiding Method Indwelling Catheter Indwelling Catheter ABP, PAP, CO, CI - Last Documented Arterial Blood Pressure 117/76 - Labs CBC & Chem 7: 08/22/18 04:30 08/22/18 04:30 Labs: Abnormal Lab Results - Last 24 Hours (Table) 08/15/18 08/21/18 08/21/18 Range/Units 10:15 11:52 17:55 WBC (3.8-10.6) k/uL RBC (3.80-5.40) m/uL Hgb (11.4-16.0) gm/dL Hct (34.0-46.0) % RDW (11.5-15.5) % Plt Count (150-450) k/uL Neutrophils # (1.3-7.7) k/uL Lymphocytes # (1.0-4.8) k/uL ABG pO2 (83-108) mmHg ABG Total CO2 (19-24) mmol/L ABG O2 Saturation (94-97) % Sodium (137-145) mmol/L Carbon Dioxide (22-30) mmol/L BUN (7-17) mg/dL Creatinine (0.52-1.04) mg/dL Glucose (74-99) mg/dL POC Glucose (mg/dL) 120 H 125 H (75-99) mg/dL Calcium (8.4-10.2) mg/dL Phosphorus (2.5-4.5) mg/dL Total Protein (6.3-8.2) g/dL Albumin (3.5-5.0) g/dL Crossmatch See Detail 08/22/18 08/22/18 08/22/18 Range/Units 00:17 04:30 04:30 WBC 10.7 H (3.8-10.6) k/uL RBC 2.33 L (3.80-5.40) m/uL Hgb 7.3 L (11.4-16.0) gm/dL Hct 21.2 L (34.0-46.0) % RDW 17.8 H (11.5-15.5) % Plt Count 132 L (150-450) k/uL Neutrophils # 9.9 H (1.3-7.7) k/uL Lymphocytes # 0.2 L (1.0-4.8) k/uL ABG pO2 (83-108) mmHg ABG Total CO2 (19-24) mmol/L ABG O2 Saturation (94-97) % Sodium 136 L (137-145) mmol/L Carbon Dioxide 21 L (22-30) mmol/L BUN 125 H* (7-17) mg/dL Creatinine 2.96 H (0.52-1.04) mg/dL Glucose 103 H (74-99) mg/dL POC Glucose (mg/dL) 129 H (75-99) mg/dL Calcium 7.5 L (8.4-10.2) mg/dL Phosphorus 8.0 H (2.5-4.5) mg/dL Total Protein 4.9 L (6.3-8.2) g/dL Albumin 2.3 L (3.5-5.0) g/dL Crossmatch 08/22/18 08/22/18 Range/Units 04:32 06:09 WBC (3.8-10.6) k/uL RBC (3.80-5.40) m/uL Hgb (11.4-16.0) gm/dL Hct (34.0-46.0) % RDW (11.5-15.5) % Plt Count (150-450) k/uL Neutrophils # (1.3-7.7) k/uL Lymphocytes # (1.0-4.8) k/uL ABG pO2 109 H (83-108) mmHg ABG Total CO2 25 H (19-24) mmol/L ABG O2 Saturation 98.1 H (94-97) % Sodium (137-145) mmol/L Carbon Dioxide (22-30) mmol/L BUN (7-17) mg/dL Creatinine (0.52-1.04) mg/dL Glucose (74-99) mg/dL POC Glucose (mg/dL) 125 H (75-99) mg/dL Calcium (8.4-10.2) mg/dL Phosphorus (2.5-4.5) mg/dL Total Protein (6.3-8.2) g/dL Albumin (3.5-5.0) g/dL Crossmatch Microbiology - Last 24 Hours (Table) 08/19/18 11:45 Catheter Tip Culture - Final Catheter Tip 08/19/18 11:45 Catheter Tip Culture - Final Catheter Tip Assessment and Plan Plan: Assessment: 1. Acute kidney injury secondary to ATN secondary to sepsis. Baseline creatinine is near 1. Renal function slightly improved today - creatinine 2.96. Last hemodialysis was on August 15. C3 level was noted to be slightly low and rest of the serologies have been negative. Creatinine 3.5 today. BUN is elevated which is partially due to IV steroids. 2. Septic shock secondary to pneumonia. Maintained on antibiotics and antifungal per infectious disease. 3. Acute blood loss anemia with no active bleeding. Better after blood transfusion. Maintained on Aranesp. Status post ICD DDAVP on August 18. 4. Volume overload. Improved with diuresis. 5. Acute hypoxic respiratory failure secondary to pneumonia. Status post tracheostomy this admission. 6. Hyperphosphatemia secondary to acute kidney injury maintained on PhosLo. Plan: Continue to hold Lasix today as urine output is adequate. Continue to hold off on hemodialysis for now. Continue to monitor renal function and urine output. Avoid nephrotoxins.
[2018-08-22] MEDS: IPRATROPIUM-ALBUTEROL 3 ML NEB INHALATION SCH ×4 (08:35→19:41)
[2018-08-22] MEDS: ALPRAZolam 1 MG TAB PO SCH ×2 (10:26→21:14)
[2018-08-22] MEDS: LACTOBACILLUS ACIDOPH & BULGAR 1 EACH PACKET PEG/G-TUBE SCH ×2 (10:26→21:15)
[2018-08-22] MEDS: FOLIC ACID 1 MG TAB PO SCH (10:26)
[2018-08-22] MEDS: ATORVASTATIN 40 MG TAB PO SCH (10:26)
[2018-08-22] MEDS: HEPARIN SODIUM,PORCINE 5,000 UNIT/ML 1 ML VIAL SQ SCH ×2 (10:26→21:15)
[2018-08-22] MEDS: CHLORHEXIDINE GLUCONATE 15 ML CUP MUCOUS MEM SCH ×2 (10:26→21:15)
[2018-08-22] MEDS: ASPIRIN 81 MG PO SCH (10:26)
[2018-08-22] MEDS: CLOPIDOGREL 75 MG TAB PO SCH (10:26)
[2018-08-22] MEDS: methylPREDNISolone SOD SUCCI 40 MG/ML 1 ML VIAL IV SCH ×2 (10:27→21:15)
[2018-08-22] MEDS: SERTRALINE 100 MG TAB PO SCH (10:27)
[2018-08-22] MEDS: PANTOPRAZOLE 40 MG/10 ML VIAL IVP SCH ×2 (10:27→21:14)
[2018-08-22] MEDS: CHOLESTYRAMINE (WITH SUGAR) 4 GM PACKET PEG/G-TUBE SCH ×2 (10:28→18:58)
--- NOTE | 2018-08-22 11:52 | CT ---
EXAMINATION TYPE: CT chest wo con DATE OF EXAM: 08/22/2018 COMPARISON: 06/27/2015 HISTORY: Bilateral lung infiltrates CT DLP: 381.5 mGycm, Automated exposure control for dose reduction was used. CONTRAST: Performed injected with 0 mL of Isovue 300. TECHNIQUE: Axial images were obtained at 5 mm thick sections. Reconstructed images are reviewed on [employer] computer in the coronal plane. FINDINGS: Tracheostomy tube appears normal in position. There appears be a small left pleural effusion. Diffuse bilateral lower lobe infiltrates are present. Findings are nonspecific. Etiologies such as pneumonia and pulmonary edema could be considered. Thes e aren't interval finding from 06/27/2015. No enlarged mediastinal or hilar adenopathy is evident. The heart size is enlarged. The ascending a ifeanyi diameter at the level of the main pulmonary artery is 3.4 cm. The main pulmonary artery diamete r at the bifurcation is 3.[address] sections are obtained through the upper abdomen. Abdomen is essentially unremarkable. IMPRESSIONS: 1. Small left pleural effusion. 2. Bilateral lung infiltrates. An infectious etiology or pulmonary edema could be considered. 3. Cardiomegaly
[2018-08-22 12:18] LABS: Glucose,Whole Blood 108 mg/dL (75-99)
[2018-08-22] MEDS: DARBEPOETIN ALFA 40 MCG/0.4 ML SYRINGE SQ SCH (12:30)
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
--- NOTE | 2018-08-22 14:28 | P.PN ---
Subjective Progress Note Date: 08/22/18 Patient's family members were present today, including her and daughter. Patient had been off sedation for the last 3 hours. At present patient is very alert and awake. She nods appropriately. No new concerns. Her most recent blood test shows WBC 10.7, hemoglobin 7.3, platelets 132. Sodium potassium are normal. Today the BUN is 125, creatinine 2.96. Liver functions are normal. Acetylcholine receptor antibodies are negative. Hepatitis panel negative. DsDNA negative. Antineutrophilic Cytoplasmic antibodies negative. Hemoglobin A1c 5.3 on 08/11/2018. Patient had an EEG performed previously, which revealed background slowing of moderate degree, suggestive of toxic metabolic encephalopathy or related to diffuse structural brain abnormality. No epileptiform activity was seen. Computed tomography scan of head showed no acute process. Small vessel disease. Some lacunar strokes in the basal ganglia bilaterally. Objective - Vital Signs Vital signs: Vital Signs Temp 98.5 F 08/22/18 04:00 Pulse 84 08/22/18 12:11 Resp 35 H 08/22/18 07:00 BP 104/73 08/22/18 07:00 Pulse Ox 99 08/22/18 07:00 Intake & Output 08/21/18 08/22/18 08/22/18 18:59 06:59 18:59 Intake Total 710.862 977.305 134.694 Output Total 1515 1320 Balance -804.138 -342.695 134.694 Weight 85.7 kg 85.7 kg Intake: IV 120 130 KVO 120 130 Intake, IV Titration 170.862 187.305 134.694 Amount Propofol 1,000 mg In 170.862 187.305 134.694 Empty Bag 1 bag @ Titrate IV .Q0M [facility] Rx#: [id number] Tube Feeding 330 390 Other 90 270 Output: Urine 1345 1320 Stool 170 Other: Voiding Method Indwelling Catheter Indwelling Catheter ABP, PAP, CO, CI - Last Documented Arterial Blood Pressure 117/76 - Exam Patient is on mechanical ventilation, has tracheostomy, patient has been CPAPing about 4 hours per day. patient is very alert and awake. She follows commands. Her strength of eyes are normal. Her face appears somewhat weak in the lower part. patient only able to wiggle her toes a little bit. Not able to move her arms or hands. Her reflexes are absent. - Labs CBC & Chem 7: 08/22/18 04:30 08/22/18 04:30 Labs: Abnormal Lab Results - Last 24 Hours (Table) 08/15/18 08/21/18 08/22/18 Range/Units 10:15 17:55 00:17 WBC (3.8-10.6) k/uL RBC (3.80-5.40) m/uL Hgb (11.4-16.0) gm/dL Hct (34.0-46.0) % RDW (11.5-15.5) % Plt Count (150-450) k/uL Neutrophils # (1.3-7.7) k/uL Lymphocytes # (1.0-4.8) k/uL ABG pO2 (83-108) mmHg ABG Total CO2 (19-24) mmol/L ABG O2 Saturation (94-97) % Sodium (137-145) mmol/L Carbon Dioxide (22-30) mmol/L BUN (7-17) mg/dL Creatinine (0.52-1.04) mg/dL Glucose (74-99) mg/dL POC Glucose (mg/dL) 125 H 129 H (75-99) mg/dL Calcium (8.4-10.2) mg/dL Phosphorus (2.5-4.5) mg/dL Total Protein (6.3-8.2) g/dL Albumin (3.5-5.0) g/dL Triglycerides (<150) mg/dL Crossmatch See Detail 08/22/18 08/22/18 08/22/18 Range/Units 04:30 04:30 04:30 WBC 10.7 H (3.8-10.6) k/uL RBC 2.33 L (3.80-5.40) m/uL Hgb 7.3 L (11.4-16.0) gm/dL Hct 21.2 L (34.0-46.0) % RDW 17.8 H (11.5-15.5) % Plt Count 132 L (150-450) k/uL Neutrophils # 9.9 H (1.3-7.7) k/uL Lymphocytes # 0.2 L (1.0-4.8) k/uL ABG pO2 (83-108) mmHg ABG Total CO2 (19-24) mmol/L ABG O2 Saturation (94-97) % Sodium 136 L (137-145) mmol/L Carbon Dioxide 21 L (22-30) mmol/L BUN 125 H* (7-17) mg/dL Creatinine 2.96 H (0.52-1.04) mg/dL Glucose 103 H (74-99) mg/dL POC Glucose (mg/dL) (75-99) mg/dL Calcium 7.5 L (8.4-10.2) mg/dL Phosphorus 8.0 H (2.5-4.5) mg/dL Total Protein 4.9 L (6.3-8.2) g/dL Albumin 2.3 L (3.5-5.0) g/dL Triglycerides 919 H (<150) mg/dL Crossmatch 08/22/18 08/22/18 08/22/18 Range/Units 04:32 06:09 12:13 WBC (3.8-10.6) k/uL RBC (3.80-5.40) m/uL Hgb (11.4-16.0) gm/dL Hct (34.0-46.0) % RDW (11.5-15.5) % Plt Count (150-450) k/uL Neutrophils # (1.3-7.7) k/uL Lymphocytes # (1.0-4.8) k/uL ABG pO2 109 H (83-108) mmHg ABG Total CO2 25 H (19-24) mmol/L ABG O2 Saturation 98.1 H (94-97) % Sodium (137-145) mmol/L Carbon Dioxide (22-30) mmol/L BUN (7-17) mg/dL Creatinine (0.52-1.04) mg/dL Glucose (74-99) mg/dL POC Glucose (mg/dL) 125 H 108 H (75-99) mg/dL Calcium (8.4-10.2) mg/dL Phosphorus (2.5-4.5) mg/dL Total Protein (6.3-8.2) g/dL Albumin (3.5-5.0) g/dL Triglycerides (<150) mg/dL Crossmatch Microbiology - Last 24 Hours (Table) 08/19/18 11:45 Catheter Tip Culture - Final Catheter Tip 08/19/18 11:45 Catheter Tip Culture - Final Catheter Tip Assessment and Plan Assessment: * Altered mental status, likely related to toxic metabolic encephalopathy. Lise saini's mentation appears normal, although has slow mentation, likely from encephalopathy. * Status post cardiac arrest on 08/05/2018. * Generalized weakness of arms and legs, probably related to critical illness neuropathy. * Pneumonia, with recent history of septic shock. * Ventilator-dependent respiratory failure. * Acute renal failure * Anemia with hemoglobin 7.1 * Recent history of stroke TIA. * Coronary artery disease with history of cardiac stenting. * X tobacco use. * Possible underlying mild cognitive impairment Plan: Patient's mental status has remarkably improved. Patient continues to be significantly weak in all 4 extremities, perhaps related to critical illness neuropathy. Patient hopefully will benefit from rehabilitation. Avoid opiates or other narcotics/sedatives. Treatment of other medical conditions as per internal medicine/critical care. r enal function slightly better Discussed with patient's family in detail. We will follow clinically.
--- NOTE | 2018-08-22 17:29 | P.PN ---
Subjective Progress Note Date: 08/22/18 Principal diagnosis: Leukocytosis and diarrhea The patient continues to be afebrile , the patient is more awake and alert today , the patient is hemodynamically stable currently not requiring any pressor support the patient did have good urine output , the patient has been tolerating tube feeds and her diarrhea slowed down per the nurse taking care of the patient Objective - Vital Signs Vital signs: Vital Signs Temp 98.5 F 08/22/18 04:00 Pulse 84 08/22/18 12:11 Resp 35 H 08/22/18 07:00 BP 104/73 08/22/18 07:00 Pulse Ox 99 08/22/18 07:00 Intake & Output 08/21/18 08/22/18 08/22/18 18:59 06:59 18:59 Intake Total 710.862 977.305 134.694 Output Total 1515 1320 Balance -804.138 -342.695 134.694 Weight 85.7 kg 85.7 kg Intake: IV 120 130 KVO 120 130 Intake, IV Titration 170.862 187.305 134.694 Amount Propofol 1,000 mg In 170.862 187.305 134.694 Empty Bag 1 bag @ Titrate IV .Q0M [facility] Rx#: [id number] Tube Feeding 330 390 Other 90 270 Output: Urine 1345 1320 Stool 170 Other: Voiding Method Indwelling Catheter Indwelling Catheter ABP, PAP, CO, CI - Last Documented Arterial Blood Pressure 117/76 - Exam GENERAL DESCRIPTION:[ Middle-aged female intubated through the trach on the vent] HEENT: [Oral mucous membrane is dry] EYES : pallor or scleral icterus] RESPIRATORY SYSTEM: [Unlabored breathing decreased breath sound at the base] CARDIA VASCULAR SYSTEM: [S1-S2 regular rate and rhythm no murmur] GI: [Abdominal soft there's no tenderness no organomegaly] EXTREMITIES: [No edema feet] - Labs CBC & Chem 7: 08/22/18 04:30 08/22/18 04:30 Labs: Abnormal Lab Results - Last 24 Hours (Table) 08/15/18 08/21/18 08/22/18 Range/Units 10:15 17:55 00:17 WBC (3.8-10.6) k/uL RBC (3.80-5.40) m/uL Hgb (11.4-16.0) gm/dL Hct (34.0-46.0) % RDW (11.5-15.5) % Plt Count (150-450) k/uL Neutrophils # (1.3-7.7) k/uL Lymphocytes # (1.0-4.8) k/uL ABG pO2 (83-108) mmHg ABG Total CO2 (19-24) mmol/L ABG O2 Saturation (94-97) % Sodium (137-145) mmol/L Carbon Dioxide (22-30) mmol/L BUN (7-17) mg/dL Creatinine (0.52-1.04) mg/dL Glucose (74-99) mg/dL POC Glucose (mg/dL) 125 H 129 H (75-99) mg/dL Calcium (8.4-10.2) mg/dL Phosphorus (2.5-4.5) mg/dL Total Protein (6.3-8.2) g/dL Albumin (3.5-5.0) g/dL Triglycerides (<150) mg/dL Crossmatch See Detail 08/22/18 08/22/18 08/22/18 Range/Units 04:30 04:30 04:30 WBC 10.7 H (3.8-10.6) k/uL RBC 2.33 L (3.80-5.40) m/uL Hgb 7.3 L (11.4-16.0) gm/dL Hct 21.2 L (34.0-46.0) % RDW 17.8 H (11.5-15.5) % Plt Count 132 L (150-450) k/uL Neutrophils # 9.9 H (1.3-7.7) k/uL Lymphocytes # 0.2 L (1.0-4.8) k/uL ABG pO2 (83-108) mmHg ABG Total CO2 (19-24) mmol/L ABG O2 Saturation (94-97) % Sodium 136 L (137-145) mmol/L Carbon Dioxide 21 L (22-30) mmol/L BUN 125 H* (7-17) mg/dL Creatinine 2.96 H (0.52-1.04) mg/dL Glucose 103 H (74-99) mg/dL POC Glucose (mg/dL) (75-99) mg/dL Calcium 7.5 L (8.4-10.2) mg/dL Phosphorus 8.0 H (2.5-4.5) mg/dL Total Protein 4.9 L (6.3-8.2) g/dL Albumin 2.3 L (3.5-5.0) g/dL Triglycerides 919 H (<150) mg/dL Crossmatch 08/22/18 08/22/18 08/22/18 Range/Units 04:32 06:09 12:13 WBC (3.8-10.6) k/uL RBC (3.80-5.40) m/uL Hgb (11.4-16.0) gm/dL Hct (34.0-46.0) % RDW (11.5-15.5) % Plt Count (150-450) k/uL Neutrophils # (1.3-7.7) k/uL Lymphocytes # (1.0-4.8) k/uL ABG pO2 109 H (83-108) mmHg ABG Total CO2 25 H (19-24) mmol/L ABG O2 Saturation 98.1 H (94-97) % Sodium (137-145) mmol/L Carbon Dioxide (22-30) mmol/L BUN (7-17) mg/dL Creatinine (0.52-1.04) mg/dL Glucose (74-99) mg/dL POC Glucose (mg/dL) 125 H 108 H (75-99) mg/dL Calcium (8.4-10.2) mg/dL Phosphorus (2.5-4.5) mg/dL Total Protein (6.3-8.2) g/dL Albumin (3.5-5.0) g/dL Triglycerides (<150) mg/dL Crossmatch Microbiology - Last 24 Hours (Table) 08/19/18 11:45 Catheter Tip Culture - Final Catheter Tip 08/19/18 11:45 Catheter Tip Culture - Final Catheter Tip Assessment and Plan Assessment: 1-patient with MRSA pneumonia that has been adequately treated 2-elevated white count more likely multifactorial possible steroid effect plus minus secondary to her central and arterial line which has been discontinued--white count is normal today 3-diarrhea antibiotic associated--- stool for C. diff negative--diarrhea has slowed down 4-oropharyngeal candidiasis Plan: 1-the pt arterial and central line cultures, have been negative so far 2-no need for further antibiotic therapy at this point 3-continue with T[place] for symptomatic relief of her diarrhea Family the bedside questions were answered Time with Patient: Less than 30
--- NOTE | 2018-08-22 17:50 | P.PN ---
Subjective Progress Note Date: 08/22/18 (delayed charting patient seen at 0810) Principal diagnosis: Confusion Patient is a 63-year-old female with a past medical history of COPD, DVT, GERD, hypertension, dyslipidemia, and asthma who presented with confusion. In the ER she underwent an extensive evaluation. CT of the head was unremarkable. She was found to have a right upper lobe pneumonia and she was st arted on antibiotics. Infectious disease was consulted who recommended maintaining antibiotics. Pulmonary was consulted. Sputum culture was obtained which showed probable MRSA. Zosyn was stopped and she was started on Teflaro due to inability to take Zyvox because of SSRI. Nephrology was consulted due to acute kidney injury. They stopped her Lasix, lisinopril, and Toradol. On the morning of 08/06 she went into respiratory distress necessitating intubation, she then had a PEA arrests and total down time was less than 10 minutes. She was moved to the ICU and had a central line placed and was started on norepinephrine. She underwent bronchoscopy with bronchial alveolar lavage. Chest x-ray showed pulmonary infiltrate. Clindamycin was initiated. She had decreased renal function after her code. She was started on a bicarb drip. She was found to have increased PA pressures and new pulmonary hypertension and the concern was for possible pulmonary embolism she was started on IV heparin, however this was then found to be less likely as her FiO2 requirements rapidly improved and heparin gtt was stopped . She had not made significant improvement in her renal function and was subsequently started on dialysis. She had 3 treatments of dialysis. Neurology was consulted who felt this was likely secondary to toxic metabolic encephalopathy but could have underlying anoxic encephalopathy. She had a trach and PEG placed on 08/12/18 and tolerated this well. She was starting to wake up after being taken off all sedatives on 08/13. However overnight on 08/14 she went into respiratory distress requiring propofol and to be placed back on the vent. She also had a drop in hemoglobin and required 1 unit of pRBC. She again had dialysis on 08/14 and 08/15. She required 1 additional unit of pRBC on 08/15. She did have permanent HD cath placed on 08/16. Her last HD was 08/15. She completed her treatment for MRSA PNA. Questran was added for her antibiotic associated diarrhea. She is undergoing CPAP trials daily. Hemoglobin has been stable. She completed her course of flagyl. Patient seen and examined at bedside. Sedated on propofol. Opens eyes not following commands Per nursing no acute events overnight. Diarrhea improving. No family at bedside. Objective - Vital Signs Vital signs: Vital Signs Temp 98.5 F 08/22/18 04:00 Pulse 86 08/22/18 15:48 Resp 40 H 08/22/18 15:35 BP 104/73 08/22/18 07:00 Pulse Ox 99 08/22/18 07:00 Intake & Output 08/21/18 08/22/18 08/22/18 18:59 06:59 18:59 Intake Total 710.862 977.305 134.694 Output Total 1515 1320 Balance -804.138 -342.695 134.694 Weight 85.7 kg 85.7 kg Intake: IV 120 130 KVO 120 130 Intake, IV Titration 170.862 187.305 134.694 Amount Propofol 1,000 mg In 170.862 187.305 134.694 Empty Bag 1 bag @ Titrate IV .Q0M [facility] Rx#: [id number] Tube Feeding 330 390 Other 90 270 Output: Urine 1345 1320 Stool 170 Other: Voiding Method Indwelling Catheter Indwelling Catheter ABP, PAP, CO, CI - Last Documented Arterial Blood Pressure 117/76 - Exam General: Ill appearing, no distress, appears older than stated age Derm: multiple areas of ecchymosis, multiple skin tears, warm, dry Head: atraumatic, normocephalic, symmetric Eyes: EOMI, no lid lag, anicteric sclera Mouth: no lip lesion, mucus membranes dry, trach in place without any signs of bleeding Cardiovascular: S1S2 reg, no murmur, positive posterior tibial pulse bilateral, Lungs: Coarse breath Sounds bilaterally, no rhonchi, no rales , no accessory muscle use, + vent Abdominal: soft, nontender to palpation, no guarding, no appreciable organomegaly, PEG in place without any signs of bleeding Ext: + gross muscle atrophy, diffuse anasarca, no contractures Neuro: on CPAP trial, able to follow simple commands, attempts withdrawal to pain Psych: Awake and alert, following commands appropriately - Labs CBC & Chem 7: 08/22/18 04:30 08/22/18 04:30 Labs: Abnormal Lab Results - Last 24 Hours (Table) 08/15/18 08/21/1808/22/19 Range/Units 10:15 17:55 00:17 WBC (3.8-10.6) k/uL RBC (3.80-5.40) m/uL Hgb (11.4-16.0) gm/dL Hct (34.0-46.0) % RDW (11.5-15.5) % Plt Count (150-450) k/uL Neutrophils # (1.3-7.7) k/uL Lymphocytes # (1.0-4.8) k/uL ABG pO2 (83-108) mmHg ABG Total CO2 (19-24) mmol/L ABG O2 Saturation (94-97) % Sodium (137-145) mmol/L Carbon Dioxide (22-30) mmol/L BUN (7-17) mg/dL Creatinine (0.52-1.04) mg/dL Glucose (74-99) mg/dL POC Glucose (mg/dL) 125 H 129 H (75-99) mg/dL Calcium (8.4-10.2) mg/dL Phosphorus (2.5-4.5) mg/dL Total Protein (6.3-8.2) g/dL Albumin (3.5-5.0) g/dL Triglycerides (<150) mg/dL Crossmatch See Detail 08/22/18 08/22/18 08/22/18 Range/Units 04:30 04:30 04:30 WBC 10.7 H (3.8-10.6) k/uL RBC 2.33 L (3.80-5.40) m/uL Hgb 7.3 L (11.4-16.0) gm/dL Hct 21.2 L (34.0-46.0) % RDW 17.8 H (11.5-15.5) % Plt Count 132 L (150-450) k/uL Neutrophils # 9.9 H (1.3-7.7) k/uL Lymphocytes # 0.2 L (1.0-4.8) k/uL ABG pO2 (83-108) mmHg ABG Total CO2 (19-24) mmol/L ABG O2 Saturation (94-97) % Sodium 136 L (137-145) mmol/L Carbon Dioxide 21 L (22-30) mmol/L BUN 125 H* (7-17) mg/dL Creatinine 2.96 H (0.52-1.04) mg/dL Glucose 103 H (74-99) mg/dL POC Glucose (mg/dL) (75-99) mg/dL Calcium 7.5 L (8.4-10.2) mg/dL Phosphorus 8.0 H (2.5-4.5) mg/dL Total Protein 4.9 L (6.3-8.2) g/dL Albumin 2.3 L (3.5-5.0) g/dL Triglycerides 919 H (<150) mg/dL Crossmatch 08/22/18 08/22/18 08/22/18 Range/Units 04:32 06:09 12:13 WBC (3.8-10.6) k/uL RBC (3.80-5.40) m/uL Hgb (11.4-16.0) gm/dL Hct (34.0-46.0) % RDW (11.5-15.5) % Plt Count (150-450) k/uL Neutrophils # (1.3-7.7) k/uL Lymphocytes # (1.0-4.8) k/uL ABG pO2 109 H (83-108) mmHg ABG Total CO2 25 H (19-24) mmol/L ABG O2 Saturation 98.1 H (94-97) % Sodium (137-145) mmol/L Carbon Dioxide (22-30) mmol/L BUN (7-17) mg/dL Creatinine (0.52-1.04) mg/dL Glucose (74-99) mg/dL POC Glucose (mg/dL) 125 H 108 H (75-99) mg/dL Calcium (8.4-10.2) mg/dL Phosphorus (2.5-4.5) mg/dL Total Protein (6.3-8.2) g/dL Albumin (3.5-5.0) g/dL Triglycerides (<150) mg/dL Crossmatch Assessment and Plan 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 -Neurology recommendations appreciated -Continue reorientation -Propofol stopped by critical care Antibiotic associate diarrhea, improving - c diff negative - flagyl completed , on Questran, probiotic - maintain fecal management system, d/c as able Anemia, multifactoral - suspect dilutional, + FOB, but no active bleeding -Hemoglobin currently stable - s/p 2 units pRBC - repeat CBC in AM Thrombocytopenia, mild and reactive -Follow CBC Acute hypoxic respiratory failure -Status post tracheostomy -Vent management per pulmonary, undergoing daily CPAP weaning Acute kidney injury requiring hemodialysis -Nephrology recommendations appreciated: Last HD 08/15, has permanent HD catheter in place -Avoid additional nephrotoxic agents -Follow basic metabolic profile daily -On PhosLo COPD with exacerbation -Scheduled DuoNeb's -When necessary bronchodilators -Solu-Medrol being weaned by pulmonary Hypertension, controlled -Follow blood pressures -Off Norvasc, metoprolol, and lisinopril Hypothyroidism -Continue with Synthroid therapy Chronic pain syndrome -Status post removal of pain pump -tylenol for pain Severe pulmonary hypertension -Management per pulmonary Critical illness polyneuropathy -PT/OT evaluation -Likely will need LTAC -Neurology recommendations appreciated History of closed head injury Aborted sudden cardiac with PEA Septic shock, resolved MRSA pneumonia, Acute hypoxic respiratory failure, akash in sputum, resolved DVT prophylaxis: heparin Discussed with: nursing Anticipated discharge: As soon as insurance auth available Anticipated discharge place: LTAC A total of 25 minutes was spent on the care of this complex patient more than 50% of the time was spent in counseling and care coordination.
[2018-08-22 18:33] LABS: Glucose,Whole Blood 123 mg/dL (75-99)
[2018-08-22] MEDS: AMITRIPTYLINE HCL 50 MG TAB PO SCH (21:15)
[2018-08-22] MEDS: QUEtiapine 200 MG TAB PO SCH (21:16)
[2018-08-23 00:07] LABS: Glucose,Whole Blood 109 mg/dL (75-99)
[2018-08-23] MEDS: INSULIN ASPART (NovoLOG) 100 UNIT/ML VIAL SQ SCH ×5 (01:37→23:34)
[2018-08-23 05:47] LABS: Glucose,Whole Blood 112 mg/dL (75-99)
[2018-08-23 05:51] LABS: Anisocytosis Slight; Basophils % (A) 0 %; Eosinophils # (A) 0.2 k/uL (0-0.7); Eosinophils % (A) 2 %; HCT 23.5 % (34.0-46.0); HGB 7.7 gm/dL (11.4-16.0); Lymphocytes # (A) 0.4 k/uL (1.0-4.8); Lymphocytes % (A) 4 %; MCH 30.3 pg (25.0-35.0); MCV 91.9 fL (80.0-100.0); Mean Platelet Volume 8.2; Monocytes # (A) 0.3 k/uL (0-1.0); Monocytes % (A) 4 %; Neutrophils % (A) 90 %; Platelet Count 137 k/uL (150-450); RBC 2.55 m/uL (3.80-5.40); RDW 17.8 % (11.5-15.5); WBC 8.9 k/uL (3.8-10.6)
[2018-08-23] MEDS: LEVOTHYROXINE 75 MCG TAB PEG/G-TUBE SCH (05:56)
[2018-08-23] MEDS: CALCIUM ACETATE 667 MG CAP PO SCH ×3 (05:56→17:34)
[2018-08-23 06:01] LABS: Albumin 2.5 g/dL (3.5-5.0); Potassium 4.1 mmol/L (3.5-5.1); Total Bilirubin 1.1 mg/dL (0.2-1.3); Total Protein 5.2 g/dL (6.3-8.2)
--- NOTE | 2018-08-23 07:06 | XR ---
EXAMINATION TYPE: XR chest 1V portable DATE OF EXAM: 08/23/2018 COMPARISON: 08/22/2018 HISTORY: Shortness of breath TECHNIQUE: Single frontal view of the chest is obtained. FINDINGS: There is diffuse airspace disease seen throughout the lungs similar in comparison the prio r of 08/22/2018 appearing predominantly interstitial-type with patchy areas of alveolar airspace disea se. Midline tracheostomy, right-sided PICC, and dual-lumen right-sided hemodialysis catheter are unch anged. Trace pleural effusions blunt the costophrenic angles. Cardiomediastinal silhouette is enlarge d. No acute osseous pathology. IMPRESSION: Similar-appearing diffuse interstitial and to a lesser degree alveolar bilateral opaciti es in combination with cardiomegaly and trace pleural effusions. Findings may represent cardiogenic o r noncardiogenic fluid overload or less likely multifocal pneumonia.
[2018-08-23 07:45] LABS: Magnesium 1.8 mg/dL (1.6-2.3); Phosphorus 6.8 mg/dL (2.5-4.5)
[2018-08-23] MEDS: IPRATROPIUM-ALBUTEROL 3 ML NEB INHALATION SCH ×5 (07:53→20:33)
[2018-08-23] MEDS: CHLORHEXIDINE GLUCONATE 15 ML CUP MUCOUS MEM SCH ×3 (08:53→20:29)
[2018-08-23] MEDS: ASPIRIN 81 MG PO SCH (08:53)
[2018-08-23] MEDS: ATORVASTATIN 40 MG TAB PO SCH (08:53)
[2018-08-23] MEDS: ALPRAZolam 1 MG TAB PO SCH ×2 (08:53→20:02)
[2018-08-23] MEDS: CLOPIDOGREL 75 MG TAB PO SCH (08:53)
[2018-08-23] MEDS: LACTOBACILLUS ACIDOPH & BULGAR 1 EACH PACKET PEG/G-TUBE SCH ×2 (08:54→20:02)
[2018-08-23] MEDS: methylPREDNISolone SOD SUCCI 40 MG/ML 1 ML VIAL IV SCH (08:54)
[2018-08-23] MEDS: SERTRALINE 100 MG TAB PO SCH (08:54)
[2018-08-23] MEDS: FOLIC ACID 1 MG TAB PO SCH (08:54)
[2018-08-23] MEDS: HEPARIN SODIUM,PORCINE 5,000 UNIT/ML 1 ML VIAL SQ SCH ×2 (08:54→20:02)
[2018-08-23] MEDS ORDERED: FAMOTIDINE 20 MG TAB PEJ/J-Tube SCH (09:00)
[2018-08-23] MEDS: CHOLESTYRAMINE (WITH SUGAR) 4 GM PACKET PEG/G-TUBE SCH ×2 (09:04→17:34)
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
--- NOTE | 2018-08-23 10:51 | P.PN ---
Subjective Patient is seen in follow-up for acute kidney injury. Her baseline creatinine is near 1. Patient required hemodialysis this admission. Last treatment was on August 15. Lasix has been held as of August 20. Urine output has been about 100 mL an hour. She underwent tracheostomy this admission. Renal function is improved. Creatinine 2.71 today. BUN is stable at 128. She is on IV steroids. She is also on tube feeding. Vital signs are stable. General: The patient appeared well nourished and normally developed. Tracheostomy noted. HEENT: Head exam is unremarkable. Neck is without jugular venous distension. LUNGS: Breath sounds decreased. HEART: Rate and Rhythm are regular. First and second heart sounds normal. No murmurs, rubs or gallops. ABDOMEN: Abdominal exam reveals normal bowel sounds. Nontender. EXTREMITITES: 1+ edema. Objective - Vital Signs Vital signs: Vital Signs Temp 98.0 F 08/23/18 00:00 Pulse 87 08/23/18 07:54 Resp 34 H 08/23/18 07:00 BP 130/82 08/23/18 07:00 Pulse Ox 98 08/23/18 07:00 Intake & Output 08/22/18 08/23/18 08/23/18 18:59 06:59 18:59 Intake Total 762.407 678.484 40 Output Total 1160 1510 100 Balance -397.593 -831.516 -60 Weight 85.7 kg 84 kg Intake: IV 110 120 10 KVO 110 120 10 Intake, IV Titration 142.407 108.484 Amount Propofol 1,000 mg In 142.407 108.484 Empty Bag 1 bag @ Titrate IV .Q0M [facility] Rx#: [id number] Tube Feeding 330 360 30 Other 180 90 Output: Urine 1160 1510 100 Other: Voiding Method Indwelling Catheter Indwelling Catheter ABP, PAP, CO, CI - Last Documented Arterial Blood Pressure 117/76 - Labs CBC & Chem 7: 08/23/18 05:30 08/23/18 05:30 Labs: Abnormal Lab Results - Last 24 Hours (Table) 08/22/18 08/22/18 08/22/18 Range/Units 04:30 12:13 18:19 RBC (3.80-5.40) m/uL Hgb (11.4-16.0) gm/dL Hct (34.0-46.0) % RDW (11.5-15.5) % Plt Count (150-450) k/uL Neutrophils # (1.3-7.7) k/uL Lymphocytes # (1.0-4.8) k/uL Chloride (98-107) mmol/L BUN (7-17) mg/dL Creatinine (0.52-1.04) mg/dL Glucose (74-99) mg/dL POC Glucose (mg/dL) 108 H 123 H (75-99) mg/dL Calcium (8.4-10.2) mg/dL Phosphorus (2.5-4.5) mg/dL Total Protein (6.3-8.2) g/dL Albumin (3.5-5.0) g/dL Triglycerides 919 H (<150) mg/dL 08/22/18 08/23/18 08/23/18 Range/Units 23:51 05:30 05:30 RBC 2.55 L (3.80-5.40) m/uL Hgb 7.7 L (11.4-16.0) gm/dL Hct 23.5 L (34.0-46.0) % RDW 17.8 H (11.5-15.5) % Plt Count 137 L (150-450) k/uL Neutrophils # 8.0 H (1.3-7.7) k/uL Lymphocytes # 0.4 L (1.0-4.8) k/uL Chloride 108 H (98-107) mmol/L BUN 128 H* (7-17) mg/dL Creatinine 2.71 H (0.52-1.04) mg/dL Glucose 101 H (74-99) mg/dL POC Glucose (mg/dL) 109 H (75-99) mg/dL Calcium 8.0 L (8.4-10.2) mg/dL Phosphorus (2.5-4.5) mg/dL Total Protein 5.2 L (6.3-8.2) g/dL Albumin 2.5 L (3.5-5.0) g/dL Triglycerides (<150) mg/dL 08/23/18 08/23/18 Range/Units 05:30 05:31 RBC (3.80-5.40) m/uL Hgb (11.4-16.0) gm/dL Hct (34.0-46.0) % RDW (11.5-15.5) % Plt Count (150-450) k/uL Neutrophils # (1.3-7.7) k/uL Lymphocytes # (1.0-4.8) k/uL Chloride (98-107) mmol/L BUN (7-17) mg/dL Creatinine (0.52-1.04) mg/dL Glucose (74-99) mg/dL POC Glucose (mg/dL) 112 H (75-99) mg/dL Calcium (8.4-10.2) mg/dL Phosphorus 6.8 H (2.5-4.5) mg/dL Total Protein (6.3-8.2) g/dL Albumin (3.5-5.0) g/dL Triglycerides (<150) mg/dL Microbiology - Last 24 Hours (Table) 08/06/18 09:30 Acid Fast Bacilli Smear - Final Bronchial Washings - Random Acid Fast Bacilli Culture - Preliminary Assessment and Plan Plan: Assessment: 1. Acute kidney injury secondary to ATN secondary to sepsis. Baseline creatinine is near 1. Renal function slightly improved today - creatinine 2.71. Last hemodialysis was on August 15. C3 level was noted to be slightly low and rest of the serologies have been negative. Creatinine 3.5 today. BUN is elevated which is partially due to IV steroids. No evidence of active GI bleeding at this time. 2. Septic shock secondary to pneumonia. Maintained on antibiotics and antifungal per infectious disease. 3. Acute blood loss anemia with no active bleeding. Better after blood transfusion. Maintained on Aranesp. Status post ICD DDAVP on August 18. 4. Volume overload. Improved with diuresis. Currently off diuretics. 5. Acute hypoxic respiratory failure secondary to pneumonia. Status post tracheostomy this admission. 6. Hyperphosphatemia secondary to acute kidney injury maintained on PhosLo. Improving. Plan: Continue to hold diuretics as urine output is adequate. She has been started on free water flushes which can be continued. However her sodium level will need to be monitored closely. Continue to hold off on hemodialysis for now. Continue to monitor renal function and urine output. Avoid nephrotoxins. IV steroids were also decreased. Case discussed with social work manager.
[2018-08-23 11:32] VITALS: BMI 32.8
[2018-08-23 12:15] LABS: Glucose,Whole Blood 140 mg/dL (75-99)
[2018-08-23] MEDS ORDERED: HALOPERIDOL LACTATE 5 MG/ML 1 ML VIAL IVP PRN ×2 (12:38)
[2018-08-23] MEDS: IPRATROPIUM-ALBUTEROL 3 ML NEB INHALATION PRN (13:30)
[2018-08-23] MEDS ORDERED: methylPREDNISolone SOD SUCCI 125 MG/2 ML VIAL IV STA (13:50)
--- NOTE | 2018-08-23 13:57 | P.PN ---
Subjective Progress Note Date: 08/23/18 Patient's daughter was present today. Patient had been off sedation for the last 8 hours. At present patient is very alert and awake. She nods appropriately. Patient turned her head as soon as I entered the room, acknowledged. No new concerns. Her most recent blood test shows WBC 8.9, hemoglobin 7.7, platelets 142. Sodium potassium are normal. Today the BUN is 128, creatinine 2.71. Liver functions are normal. Acetylcholine receptor antibodies are negative. Hepatitis panel negative. DsDNA negative. Antineutrophilic Cytoplasmic antibodies negative. Hemoglobin A1c 5.3 on 08/11/2018. Patient had an EEG performed previously, which revealed background slowing of moderate degree, suggestive of toxic metabolic encephalopathy or related to diffuse structural brain abnormality. No epileptiform activity was seen. Computed tomography scan of head showed no acute process. Small vessel disease. Some lacunar strokes in the basal ganglia bilaterally. Objective - Vital Signs Vital signs: Vital Signs Temp 98.4 F 08/23/18 12:00 Pulse 100 08/23/18 12:00 Resp 21 08/23/18 12:00 BP 114/67 08/23/18 12:00 Pulse Ox 100 08/23/18 12:00 Intake & Output 08/22/18 08/23/18 08/23/18 18:59 06:59 18:59 Intake Total 762.407 678.484 40 Output Total 1160 1510 100 Balance -397.593 -831.516 -60 Weight 85.7 kg 84 kg Intake: IV 110 120 10 KVO 110 120 10 Intake, IV Titration 142.407 108.484 Amount Propofol 1,000 mg In 142.407 108.484 Empty Bag 1 bag @ Titrate IV .Q0M [facility] Rx#: [id number] Tube Feeding 330 360 30 Other 180 90 Output: Urine 1160 1510 100 Other: Voiding Method Indwelling Catheter Indwelling Catheter ABP, PAP, CO, CI - Last Documented Arterial Blood Pressure 117/76 - Exam Patient is on mechanical ventilation, has tracheostomy, patient has been CPAPing about 4 hours per day. Patient is off sedation. She will be given Haldol as needed as per nurse. Overall patient is very alert and awake. She follows commands. Her strength of eyes are normal. Her face appears somewhat weak in the lower part. Patient able to slightly move her upper extremities, and wiggle her toes. Her reflexes are absent. - Labs CBC & Chem 7: 08/23/18 05:30 08/23/18 05:30 Labs: Abnormal Lab Results - Last 24 Hours (Table) 08/22/18 08/22/18 08/23/18 Range/Units 18:19 23:51 05:30 RBC 2.55 L (3.80-5.40) m/uL Hgb 7.7 L (11.4-16.0) gm/dL Hct 23.5 L (34.0-46.0) % RDW 17.8 H (11.5-15.5) % Plt Count 137 L (150-450) k/uL Neutrophils # 8.0 H (1.3-7.7) k/uL Lymphocytes # 0.4 L (1.0-4.8) k/uL Chloride (98-107) mmol/L BUN (7-17) mg/dL Creatinine (0.52-1.04) mg/dL Glucose (74-99) mg/dL POC Glucose (mg/dL) 123 H 109 H (75-99) mg/dL Calcium (8.4-10.2) mg/dL Phosphorus (2.5-4.5) mg/dL Total Protein (6.3-8.2) g/dL Albumin (3.5-5.0) g/dL 08/23/18 08/23/18 08/23/18 Range/Units 05:30 05:30 05:31 RBC (3.80-5.40) m/uL Hgb (11.4-16.0) gm/dL Hct (34.0-46.0) % RDW (11.5-15.5) % Plt Count (150-450) k/uL Neutrophils # (1.3-7.7) k/uL Lymphocytes # (1.0-4.8) k/uL Chloride 108 H (98-107) mmol/L BUN 128 H* (7-17) mg/dL Creatinine 2.71 H (0.52-1.04) mg/dL Glucose 101 H (74-99) mg/dL POC Glucose (mg/dL) 112 H (75-99) mg/dL Calcium 8.0 L (8.4-10.2) mg/dL Phosphorus 6.8 H (2.5-4.5) mg/dL Total Protein 5.2 L (6.3-8.2) g/dL Albumin 2.5 L (3.5-5.0) g/dL 08/23/18 Range/Units 11:49 RBC (3.80-5.40) m/uL Hgb (11.4-16.0) gm/dL Hct (34.0-46.0) % RDW (11.5-15.5) % Plt Count (150-450) k/uL Neutrophils # (1.3-7.7) k/uL Lymphocytes # (1.0-4.8) k/uL Chloride (98-107) mmol/L BUN (7-17) mg/dL Creatinine (0.52-1.04) mg/dL Glucose (74-99) mg/dL POC Glucose (mg/dL) 140 H (75-99) mg/dL Calcium (8.4-10.2) mg/dL Phosphorus (2.5-4.5) mg/dL Total Protein (6.3-8.2) g/dL Albumin (3.5-5.0) g/dL Microbiology - Last 24 Hours (Table) 08/06/18 09:30 Acid Fast Bacilli Smear - Final Bronchial Washings - Random Acid Fast Bacilli Culture - Preliminary Assessment and Plan Assessment: * Altered mental status, likely related to toxic metabolic encephalopathy. Patient's mentation appears normal, although has slow mentation, likely from encephalopathy. * Status post cardiac arrest on 08/05/2018. * Generalized weakness of arms and legs, probably related to critical illness neuropathy. * Pneumonia, with recent history of septic shock. * Ventilator-dependent respiratory failure. * Acute renal failure * Anemia with hemoglobin 7.1 * Recent history of stroke TIA. * Coronary artery disease with history of cardiac stenting. * X tobacco use. * Possible underlying mild cognitive impairment Plan: Patient's mental status has remarkably improved. Patient continues to be significantly weak in all 4 extremities, perhaps related to critical illness neuropathy. Very slight improvement noticed today. Patient hopefully will bene fit from rehabilitation. Avoid opiates or other narcotics/sedatives. Treatment of other medical conditions as per internal medicine/critical care. renal function slightly better. Neurologically clear for transfer to rehab. Discussed with patient's family in detail. We will follow clinically.
[2018-08-23] MEDS ORDERED: DILTIAZEM DRIP BOLUS FROM BAG 1 MG SOLN IV ONE (14:02)
[2018-08-23] MEDS ORDERED: SODIUM CHLORIDE 0.9% 1,000 ML IV ONE (14:09)
[2018-08-23] MEDS: DILTIAZEM 125 MG in SODIUM CHLORIDE 0.9% 100 ML IV SCH ×2 (14:26→23:21)
--- NOTE | 2018-08-23 16:51 | PN ---
PROGRESS NOTE Mrs. Nick is a 63-year-old female with a known history of coronary artery disease, status post percutaneous revascularization, who presented with respiratory failure requiring mechanical ventilation. She has a trach and a PEG and today became quite dyspneic, hypoxic and had coarse breathing sounds. She underwent suctioning, with large blood clots. She subsequently went into atrial fibrillation with rapid ventricular response. She is hypotensive at this time. She continues to be on the ventilator through the trach. Her urine output has been good. She has not required hemodialysis. Hemodynamically she has been stable up to now. There is no evidence of ventricular ectopic activity. She has been tolerating feeding. The plan is to transfer the patient to [facility] in the next few days when she is accepted there. MEDICATION: Her medications at this time include: 1. Aspirin once a day. 2. Lipitor 40 mg daily. 3. Plavix 75 mg daily. 4. Methylprednisolone. PHYSICAL EXAMINATION: She is a 63-year-old female, intubated through the trach. She is opening her eyes to verbal stimulation. Her heart rate now is running in the 140s with blood pressure in the 80s. Her blood pressure earlier was running in the 110s. LUNGS: A few rhonchi anteriorly. No wheezes. HEART: Irregularly irregular. S1, S2. No S3. No rub. ABDOMEN: Soft. PEG tube in place. EXTREMITIES: One plus edema. LAB DATA: Creatinine 2.7, BUN of 128, potassium 4.1, hemoglobin of 7.7. IMPRESSION: 1. Atrial fibrillation of new onset, not documented in the past. It occurred after suctioning and an episode of hypoxemia. 2. Prolonged intubation for respiratory failure following pneumonia with methicillin- resistant Staphylococcus aeruginosa. 3. History of coronary artery disease, status post prior stenting. 4. History of acute kidney injury. 5. History of stroke. 6. Hypertension. RECOMMENDATIONS: From the cardiac standpoint, I will give her fluid to improve her blood pressure. Subsequently I would recommend to start her on IV Cardizem as well as a beta lucinda. Follow her heart rate and blood pressure. Depending on that, further recommendations will be made. At this time anticoagulation will be held because of the recent large blood clots that were aspirated and cleared from her tracheostomy. MMODL / IJN: [id number] /
[2018-08-23 17:10] LABS: Glucose,Whole Blood 161 mg/dL (75-99)
--- NOTE | 2018-08-23 17:54 | P.PN ---
Subjective Progress Note Date: 08/23/18 (delayed charting patient seen at 0800) Principal diagnosis: Confusion Patient is a 63-year-old female with a past medical history of COPD, DVT, GERD, hypertension, dyslipidemia, and asthma who presented with confusion. In the ER she underwent an extensive evaluation. CT of the head was unremarkable. She was found to have a right upper lobe pneumonia and she was st arted on antibiotics. Infectious disease was consulted who recommended maintaining antibiotics. Pulmonary was consulted. Sputum culture was obtained which showed probable MRSA. Zosyn was stopped and she was started on Teflaro due to inability to take Zyvox because of SSRI. Nephrology was consulted due to acute kidney injury. They stopped her Lasix, lisinopril, and Toradol. On the morning of 08/06 she went into respiratory distress necessitating intubation, she then had a PEA arrests and total down time was less than 10 minutes. She was moved to the ICU and had a central line placed and was started on norepinephrine. She underwent bronchoscopy with bronchial alveolar lavage. Chest x-ray showed pulmonary infiltrate. Clindamycin was initiated. She had decreased renal function after her code. She was started on a bicarb drip. She was found to have increased PA pressures and new pulmonary hypertension and the concern was for possible pulmonary embolism she was started on IV heparin, however this was then found to be less likely as her FiO2 requirements rapidly improved and heparin gtt was stopped . She had not made significant improvement in her renal function and was subsequently started on dialysis. She had 3 treatments of dialysis. Neurology was consulted who felt this was likely secondary to toxic metabolic encephalopathy but could have underlying anoxic encephalopathy. She had a trach and PEG placed on 08/12/18 and tolerated this well. She was starting to wake up after being taken off all sedatives on 08/13. However overnight on 08/14 she went into respiratory distress requiring propofol and to be placed back on the vent. She also had a drop in hemoglobin and required 1 unit of pRBC. She again had dialysis on 08/14 and 08/15. She required 1 additional unit of pRBC on 08/15. She did have permanent HD cath placed on 08/16. Her last HD was 08/15. She completed her treatment for MRSA PNA. Questran was added for her antibiotic associated diarrhea. She is undergoing CPAP trials daily. Hemoglobin has been stable. She completed her course of flagyl. Patient seen and examined at bedside. Awake, following commands, trying to converse Per nursing no acute events overnight. No family at bedside. Objective - Vital Signs Vital signs: Vital Signs Temp 98.8 F 08/23/18 16:00 Pulse 128 H 08/23/18 17:45 Resp 30 H 08/23/18 17:45 BP 111/82 08/23/18 17:45 Pulse Ox 97 08/23/18 17:45 Intake & Output 08/22/18 08/23/18 08/23/18 18:59 06:59 18:59 Intake Total 762.407 782.396 4362 Output Total 1160 1510 1750 Balance -397.593 -831.516 360 Weight 85.7 kg 84 kg Intake: IV 442 672 3456 KVO 446 637 6402 Intake, IV Titration 142.407 108.484 Amount Propofol 1,000 mg In 142.407 108.484 Empty Bag 1 bag @ Titrate IV .Q0M [facility] Rx#: [id number] Tube Feeding 330 360 380 Other 180 90 630 Output: Urine 1160 1510 1750 Other: Voiding Method Indwelling Catheter Indwelling Catheter Indwelling Catheter ABP, PAP, CO, CI - Last Documented Arterial Blood Pressure 117/76 - Exam General: non toxic, no distress, appears older than stated age, temporal wasting Derm: multiple areas of ecchymosis, multiple skin tears, warm, dry Head: atraumatic, normocephalic, symmetric Eyes: EOMI, no lid lag, anicteric sclera Mouth: no lip lesion, mucus membranes dry, trach in place without any signs of bleeding Cardiovascular: S1S2 reg, no murmur, positive posterior tibial pulse bilateral, Lungs: Coarse breath Sounds bilaterally, no rhonchi, no rales , no accessory muscle use, + vent Abdominal: soft, nontender to palpation, no guarding, no appreciable organomegaly, PEG in place without any signs of bleeding Ext: + gross muscle atrophy, diffuse anasarca, no contractures Neuro: on CPAP trial, able to follow simple commands, attempts withdrawal to pain Psych: Awake and alert, following commands appropriately - Labs CBC & Chem 7: 08/23/18 05:30 08/23/18 05:30 Labs: Abnormal Lab Results - Last 24 Hours (Table) 08/22/18 08/22/18 08/23/18 Range/Units 18:19 23:51 05:30 RBC 2.55 L (3.80-5.40) m/uL Hgb 7.7 L (11.4-16.0) gm/dL Hct 23.5 L (34.0-46.0) % RDW 17.8 H (11.5-15.5) % Plt Count 137 L (150-450) k/uL Neutrophils # 8.0 H (1.3-7.7) k/uL Lymphocytes # 0.4 L (1.0-4.8) k/uL Chloride (98-107) mmol/L BUN (7-17) mg/dL Creatinine (0.52-1.04) mg/dL Glucose (74-99) mg/dL POC Glucose (mg/dL) 123 H 109 H (75-99) mg/dL Calcium (8.4-10.2) mg/dL Phosphorus (2.5-4.5) mg/dL Total Protein (6.3-8.2) g/dL Albumin (3.5-5.0) g/dL 08/23/18 08/23/18 08/23/18 Range/Units 05:30 05:30 05:31 RBC (3.80-5.40) m/uL Hgb (11.4-16.0) gm/dL Hct (34.0-46.0) % RDW (11.5-15.5) % Plt Count (150-450) k/uL Neutrophils # (1.3-7.7) k/uL Lymphocytes # (1.0-4.8) k/uL Chloride 108 H (98-107) mmol/L BUN 128 H* (7-17) mg/dL Creatinine 2.71 H (0.52-1.04) mg/dL Glucose 101 H (74-99) mg/dL POC Glucose (mg/dL) 112 H (75-99) mg/dL Calcium 8.0 L (8.4-10.2) mg/dL Phosphorus 6.8 H (2.5-4.5) mg/dL Total Protein 5.2 L (6.3-8.2) g/dL Albumin 2.5 L (3.5-5.0) g/dL 08/23/18 08/23/18 Range/Units 11:49 17:05 RBC (3.80-5.40) m/uL Hgb (11.4-16.0) gm/dL Hct (34.0-46.0) % RDW (11.5-15.5) % Plt Count (150-450) k/uL Neutrophils # (1.3-7.7) k/uL Lymphocytes # (1.0-4.8) k/uL Chloride (98-107) mmol/L BUN (7-17) mg/dL Creatinine (0.52-1.04) mg/dL Glucose (74-99) mg/dL POC Glucose (mg/dL) 140 H 161 H (75-99) mg/dL Calcium (8.4-10.2) mg/dL Phosphorus (2.5-4.5) mg/dL Total Protein (6.3-8.2) g/dL Albumin (3.5-5.0) g/dL Microbiology - Last 24 Hours (Table) 08/06/18 09:30 Acid Fast Bacilli Smear - Final Bronchial Washings - Random Acid Fast Bacilli Culture - Preliminary Assessment and Plan Assessment: Toxic Encephalopathy, improving -Neurology recommendations appreciated -Continue reorientation New onset Afib, provoked by hypoxia - IV cardizem and BB - NO AC with recent bleeding Antibiotic associate diarrhea - c diff negative - flagyl completed , on Questran, probiotic - maintain fecal management system, d/c as able Anemia, multifactoral - suspect dilutional, + FOB, but no active bleeding -Hemoglobin currently stable - s/p 2 units pRBC Thrombocytopenia, mild and reactive -Follow CBC Acute hypoxic respiratory failure -Status post tracheostomy -Vent management per pulmonary, undergoing daily CPAP weaning Acute kidney injury requiring hemodialysis -Nephrology recommendations appreciated: Last HD 08/15, has permanent HD catheter in place -Avoid additional nephrotoxic agents -Follow basic metabolic profile daily -On PhosLo COPD with exacerbation -Scheduled DuoNeb's -When necessary bronchodilators -Solu-Medrol being weaned by pulmonary Hypertension, controlled -Follow blood pressures -Off Norvasc, metoprolol, and lisinopril Hypothyroidism -Continue with Synthroid therapy Chronic pain syndrome -Status post removal of pain pump -tylenol for pain Severe pulmonary hypertension -Management per pulmonary Critical illness polyneuropathy -PT/OT evaluation -Likely will need LTAC -Neurology recommendations appreciated History of closed head injury Aborted sudden cardiac with PEA Septic shock, resolved MRSA pneumonia, Acute hypoxic respiratory failure, akash in sputum, resolved oral candidiasis, resolved DVT prophylaxis: heparin Discussed with: nursing Anticipated discharge: As soon as insurance auth available Anticipated discharge place: LTAC A total of 25 minutes was spent on the care of this complex patient more than 50% of the time was spent in counseling and care coordination.
[2018-08-23 19:45] LABS: Magnesium 1.8 mg/dL (1.6-2.3); Phosphorus 5.4 mg/dL (2.5-4.5); Potassium 4.4 mmol/L (3.5-5.1)
[2018-08-23] MEDS: AMITRIPTYLINE HCL 50 MG TAB PO SCH (20:02)
[2018-08-23] MEDS: QUEtiapine 200 MG TAB PO SCH (20:02)
[2018-08-23] MEDS ORDERED: METOPROLOL TARTRATE 25 MG TAB PO SCH (21:00)
[2018-08-23] MEDS: MAGNESIUM SULFATE-D5W PMX 1 GM in DEXTROSE/WATER 1 100ML.BAG IVPB SCH ×2 (21:06→22:10)
--- NOTE | 2018-08-23 22:41 | P.PN ---
Subjective Progress Note Date: 08/23/18 Principal diagnosis: Leukocytosis and diarrhea The patient remains to be afebrile , the patient is awake and alert , follows simple command , the patient is hemodynamically stable not requiring any pressor support , the patient did have good urine output , the patient has been tolerating tube feeds and her diarrhea slowed down Objective - Vital Signs Vital signs: Vital Signs Temp 98.0 F 08/23/18 00:00 Pulse 99 08/23/18 11:54 Resp 34 H 08/23/18 07:00 BP 130/82 08/23/18 07:00 Pulse Ox 98 08/23/18 07:00 Intake & Output 08/22/18 08/23/18 08/23/18 18:59 06:59 18:59 Intake Total 762.407 678.484 40 Output Total 1160 1510 100 Balance -397.593 -831.516 -60 Weight 85.7 kg 84 kg Intake: IV 110 120 10 KVO 110 120 10 Intake, IV Titration 142.407 108.484 Amount Propofol 1,000 mg In 142.407 108.484 Empty Bag 1 bag @ Titrate IV .Q0M [facility] Rx#: [id number] Tube Feeding 330 360 30 Other 180 90 Output: Urine 1160 1510 100 Other: Voiding Method Indwelling Catheter Indwelling Catheter ABP, PAP, CO, CI - Last Documented Arterial Blood Pressure 117/76 - Exam GENERAL DESCRIPTION:[ Middle-aged female intubated through the trach on the vent] HEENT: [Oral mucous membrane is dry] EYES : pallor or scleral icterus] RESPIRATORY SYSTEM: [Unlabored breathing decreased breath sound at the base] CARDIA VASCULAR SYSTEM: [S1-S2 regular rate and rhythm no murmur] GI: [Abdominal soft there's no tenderness no organomegaly] EXTREMITIES: [No edema feet] - Labs CBC & Chem 7: 08/23/18 05:30 08/23/18 19:16 Labs: Abnormal Lab Results - Last 24 Hours (Table) 08/22/18 08/22/18 08/22/18 Range/Units 12:13 18:19 23:51 RBC (3.80-5.40) m/uL Hgb (11.4-16.0) gm/dL Hct (34.0-46.0) % RDW (11.5-15.5) % Plt Count (150-450) k/uL Neutrophils # (1.3-7.7) k/uL Lymphocytes # (1.0-4.8) k/uL Chloride (98-107) mmol/L BUN (7-17) mg/dL Creatinine (0.52-1.04) mg/dL Glucose (74-99) mg/dL POC Glucose (mg/dL) 108 H 123 H 109 H (75-99) mg/dL Calcium (8.4-10.2) mg/dL Phosphorus (2.5-4.5) mg/dL Total Protein (6.3-8.2) g/dL Albumin (3.5-5.0) g/dL 08/23/18 08/23/18 08/23/18 Range/Units 05:30 05:30 05:30 RBC 2.55 L (3.80-5.40) m/uL Hgb 7.7 L (11.4-16.0) gm/dL Hct 23.5 L (34.0-46.0) % RDW 17.8 H (11.5-15.5) % Plt Count 137 L (150-450) k/uL Neutrophils # 8.0 H (1.3-7.7) k/uL Lymphocytes # 0.4 L (1.0-4.8) k/uL Chloride 108 H (98-107) mmol/L BUN 128 H* (7-17) mg/dL Creatinine 2.71 H (0.52-1.04) mg/dL Glucose 101 H (74-99) mg/dL POC Glucose (mg/dL) (75-99) mg/dL Calcium 8.0 L (8.4-10.2) mg/dL Phosphorus 6.8 H (2.5-4.5) mg/dL Total Protein 5.2 L (6.3-8.2) g/dL Albumin 2.5 L (3.5-5.0) g/dL 08/23/18 08/23/18 Range/Units 05:31 11:49 RBC (3.80-5.40) m/uL Hgb (11.4-16.0) gm/dL Hct (34.0-46.0) % RDW (11.5-15.5) % Plt Count (150-450) k/uL Neutrophils # (1.3-7.7) k/uL Lymphocytes # (1.0-4.8) k/uL Chloride (98-107) mmol/L BUN (7-17) mg/dL Creatinine (0.52-1.04) mg/dL Glucose (74-99) mg/dL POC Glucose (mg/dL) 112 H 140 H (75-99) mg/dL Calcium (8.4-10.2) mg/dL Phosphorus (2.5-4.5) mg/dL Total Protein (6.3-8.2) g/dL Albumin (3.5-5.0) g/dL Microbiology - Last 24 Hours (Table) 08/06/18 09:30 Acid Fast Bacilli Smear - Final Bronchial Washings - Random Acid Fast Bacilli Culture - Preliminary Assessment and Plan Assessment: 1-patient with MRSA pneumonia that has been adequately treated 2-elevated white count more likely multifactorial possible steroid effect plus minus secondary to her central and arterial line which has been discontinued--white count is normal for last 2 days 3-diarrhea antibiotic associated--- stool for C. diff negative--diarrhea has slowed down 4-oropharyngeal candidiasis--treated Plan: 1-the pt arterial and central line cultures, have been negative so far 2-no need for further antibiotic therapy at this point 3-continue with Questran for symptomatic relief of her diarrhea daughter at the bedside questions were answered Time with Patient: Less than 30
[2018-08-23 23:33] LABS: Glucose,Whole Blood 149 mg/dL (75-99)
[2018-08-24 04:38] LABS: Albumin 2.5 g/dL (3.5-5.0); Magnesium 2.3 mg/dL (1.6-2.3); Potassium 3.8 mmol/L (3.5-5.1); Total Bilirubin 1.5 mg/dL (0.2-1.3); Total Protein 5.4 g/dL (6.3-8.2)
[2018-08-24 04:45] LABS: Anisocytosis Slight; Basophils % (A) 0 %; Eosinophils # (A) 0.1 k/uL (0-0.7); Eosinophils % (A) 1 %; HCT 21.9 % (34.0-46.0); HGB 7.2 gm/dL (11.4-16.0); Hypochromasia Slight; Lymphocytes # (A) 0.4 k/uL (1.0-4.8); Lymphocytes % (A) 3 %; MCHC 32.7 g/dL (31.0-37.0); MCV 91.7 fL (80.0-100.0); Mean Platelet Volume 8.3; Monocytes # (A) 0.4 k/uL (0-1.0); Monocytes % (A) 3 %; Neutrophils # (A) 11.1 k/uL (1.3-7.7); Neutrophils % (A) 93 %; Platelet Count 117 k/uL (150-450); RBC 2.39 m/uL (3.80-5.40); RDW 17.7 % (11.5-15.5); WBC 11.9 k/uL (3.8-10.6)
[2018-08-24 06:47] LABS: Glucose,Whole Blood 118 mg/dL (75-99)
[2018-08-24 07:00] LABS: Glucose,Whole Blood 128 mg/dL (75-99)
[2018-08-24] MEDS: INSULIN ASPART (NovoLOG) 100 UNIT/ML VIAL SQ SCH ×3 (07:00→17:42)
[2018-08-24] MEDS: LEVOTHYROXINE 75 MCG TAB PEG/G-TUBE SCH (07:01)
[2018-08-24] MEDS: CALCIUM ACETATE 667 MG CAP PO SCH ×3 (07:01→17:42)
[2018-08-24] MEDS: IPRATROPIUM-ALBUTEROL 3 ML NEB INHALATION SCH ×4 (07:14→19:59)
--- NOTE | 2018-08-24 07:32 | XR ---
EXAMINATION TYPE: XR chest 1V portable DATE OF EXAM: 08/24/2018 COMPARISON: Prior chest x-ray 08/23/2018 HISTORY: Shortness of breath TECHNIQUE: Single frontal view of the chest is obtained. FINDINGS: Tracheostomy tube is overlying appropriate position. Patient is rotated. Right jugular david lysis catheter shows the distal tip in the right atrium. Right-sided PICC line is in place with dista l tip in the right atrium. No pneumothorax or evident effusion. Bilateral airspace disease persists. Heart remains enlarged. IMPRESSION: Correlate for volume overload, congestive heart failure.
--- NOTE | 2018-08-24 08:08 | PN ---
PROGRESS NOTE Mrs. Nick is a 63-year-old female who had a prior history of myocardial infarction and stenting, who presented with respiratory failure and lung infection requiring prolonged ventilation. She is on the trach. Yesterday she had a plug with some blood aspirated and went into atrial fibrillation. She remains in atrial fibrillation with controlled ventricular response. There is no evidence of tachycardia. Her blood pressure has been stable. Hemodynamically stable. She is more awake today in comparison to yesterday. She has good urine output. The plan remains to transfer the patient to [facility] in the next few days. She continues to be at this time on the IV Cardizem, aspirin 81 mg daily, Lipitor 40 mg daily, methylprednisolone, metoprolol tartrate 25 mg twice a day. PHYSICAL EXAMINATION: Blood pressure 115/70 with the heart rate in the one teens. LUNGS: Clear anteriorly. HEART: Irregular, irregular. S1, S2. No S3 with a systolic murmur. No diastolic murmur. Trach tube in place. ABDOMEN: Soft, nontender. EXTREMITIES: +1 edema. LAB DATA: Lab data revealed BUN and creatinine 106 and 2.1. Potassium 3.8. Hemoglobin of 7.2. Her albumin is 2.5. Her chest x-ray reveals bilateral diffuse infiltrate consistent with ARDS, doubt heart failure. IMPRESSION: 1. Respiratory failure, status pneumonia. 2. Atrial fibrillation, new onset. 3. History of coronary artery disease. 4. Renal failure. Has required dialysis in the past. 5. History of stroke. 6. Hypertension. RECOMMENDATION: I will stop the IV Cardizem and increase the dose of her beta lucinda. I will initiate anticoagulation and stop her aspirin. Continue the rest of the medical regimen. Depending on her progress, further recommendation will be made. MMODL / IJN: [id number] / CARIDAD
[2018-08-24] MEDS ORDERED: FAMOTIDINE 20 MG TAB PEJ/J-Tube SCH (09:00)
[2018-08-24] MEDS ORDERED: methylPREDNISolone SOD SUCCI 40 MG/ML 1 ML VIAL IV SCH (09:00)
[2018-08-24] MEDS: CHLORHEXIDINE GLUCONATE 15 ML CUP MUCOUS MEM SCH ×2 (09:40→19:59)
[2018-08-24] MEDS: ALPRAZolam 1 MG TAB PO SCH ×2 (09:41→19:49)
[2018-08-24] MEDS: APIXABAN 2.5 MG TABLET PO SCH ×2 (09:41→19:49)
[2018-08-24] MEDS: FOLIC ACID 1 MG TAB PO SCH (09:41)
[2018-08-24] MEDS: LACTOBACILLUS ACIDOPH & BULGAR 1 EACH PACKET PEG/G-TUBE SCH ×2 (09:41→19:49)
[2018-08-24] MEDS: ATORVASTATIN 40 MG TAB PO SCH (09:41)
[2018-08-24] MEDS: CHOLESTYRAMINE (WITH SUGAR) 4 GM PACKET PEG/G-TUBE SCH ×2 (09:41→17:42)
[2018-08-24] MEDS: CLOPIDOGREL 75 MG TAB PO SCH (09:41)
[2018-08-24] MEDS: SERTRALINE 100 MG TAB PO SCH (09:41)
[2018-08-24] MEDS: METOPROLOL TARTRATE 50 MG TAB PO SCH ×2 (09:41→19:49)
--- NOTE | 2018-08-24 10:10 | P.PN ---
Subjective Patient is seen in follow-up for acute kidney injury. Her baseline creatinine is near 1. Patient required hemodialysis this admission. Last treatment was on August 15. Lasix has been held as of August 20. Urine output has been about 100 mL an hour. She underwent tracheostomy this admission. Renal function is improved. Creatinine 2.16 today. BUN is trending down. She is on IV steroids. She is also on tube feeding. Patient went into A. fib with RVR last night and is currently on Cardizem drip. Vital signs are stable. General: The patient appeared well nourished and normally developed. Tracheostomy noted. HEENT: Head exam is unremarkable. Neck is without jugular venous distension. LUNGS: Breath sounds decreased. HEART: Rate and Rhythm are regular. First and second heart sounds normal. No murmurs, rubs or gallops. ABDOMEN: Abdominal exam reveals normal bowel sounds. Nontender. EXTREMITITES: 1+ edema. Objective - Vital Signs Vital signs: Vital Signs Temp 99.6 F 08/24/18 08:30 Pulse 113 H 08/24/18 10:00 Resp 31 H 08/24/18 10:00 BP 118/73 08/24/18 10:00 Pulse Ox 97 08/24/18 10:00 Intake & Output 08/23/18 08/24/18 08/24/18 18:59 06:59 18:59 Intake Total 2460 1109.167 187 Output Total 1900 1565 560 Balance 560 -455.833 -373 Weight 84 kg 83.6 kg Intake: IV 1110 120 40 KVO 1110 120 40 Intake, IV Titration 289.167 Amount Diltiazem 125 mg In 89.167 Sodium Chloride 0.9% 100 ml @ 10 MG/HR 10 mls/hr IV .[id number] [facility] Rx#: [id number] Magnesium Sulfate-D5w Pmx 200 1 gm In Dextrose/Water 1 100ml.bag @ 100 mls/hr IVPB Q1H [facility] Rx#: [id number] Tube Feeding 420 400 147 Other 930 300 Output: Urine 1900 1565 510 Stool 50 Other: Voiding Method Indwelling Catheter Indwelling Catheter ABP, PAP, CO, CI - Last Documented Arterial Blood Pressure 117/76 - Labs CBC & Chem 7: 08/24/18 04:10 08/24/18 04:10 Labs: Abnormal Lab Results - Last 24 Hours (Table) 05/21/19 05/21/19 05/21/19 Range/Units 11:49 17:05 19:16 WBC (3.8-10.6) k/uL RBC (3.80-5.40) m/uL Hgb (11.4-16.0) gm/dL Hct (34.0-46.0) % RDW (11.5-15.5) % Plt Count (150-450) k/uL Neutrophils # (1.3-7.7) k/uL Lymphocytes # (1.0-4.8) k/uL Chloride (98-107) mmol/L Carbon Dioxide (22-30) mmol/L BUN (7-17) mg/dL Creatinine (0.52-1.04) mg/dL Glucose (74-99) mg/dL POC Glucose (mg/dL) 140 H 161 H (75-99) mg/dL Calcium (8.4-10.2) mg/dL Phosphorus 5.4 H (2.5-4.5) mg/dL Total Bilirubin (0.2-1.3) mg/dL Total Protein (6.3-8.2) g/dL Albumin (3.5-5.0) g/dL 08/23/18 08/24/18 08/24/18 Range/Units 23:31 04:10 04:10 WBC 11.9 H (3.8-10.6) k/uL RBC 2.39 L (3.80-5.40) m/uL Hgb 7.2 L (11.4-16.0) gm/dL Hct 21.9 L (34.0-46.0) % RDW 17.7 H (11.5-15.5) % Plt Count 117 L (150-450) k/uL Neutrophils # 11.1 H (1.3-7.7) k/uL Lymphocytes # 0.4 L (1.0-4.8) k/uL Chloride 111 H (98-107) mmol/L Carbon Dioxide 21 L (22-30) mmol/L BUN 106 H* (7-17) mg/dL Creatinine 2.16 H (0.52-1.04) mg/dL Glucose 109 H (74-99) mg/dL POC Glucose (mg/dL) 149 H (75-99) mg/dL Calcium 8.0 L (8.4-10.2) mg/dL Phosphorus (2.5-4.5) mg/dL Total Bilirubin 1.5 H (0.2-1.3) mg/dL Total Protein 5.4 L (6.3-8.2) g/dL Albumin 2.5 L (3.5-5.0) g/dL 08/24/18 08/24/18 Range/Units 05:57 06:58 WBC (3.8-10.6) k/uL RBC (3.80-5.40) m/uL Hgb (11.4-16.0) gm/dL Hct (34.0-46.0) % RDW (11.5-15.5) % Plt Count (150-450) k/uL Neutrophils # (1.3-7.7) k/uL Lymphocytes # (1.0-4.8) k/uL Chloride (98-107) mmol/L Carbon Dioxide (22-30) mmol/L BUN (7-17) mg/dL Creatinine (0.52-1.04) mg/dL Glucose (74-99) mg/dL POC Glucose (mg/dL) 118 H 128 H (75-99) mg/dL Calcium (8.4-10.2) mg/dL Phosphorus (2.5-4.5) mg/dL Total Bilirubin (0.2-1.3) mg/dL Total Protein (6.3-8.2) g/dL Albumin (3.5-5.0) g/dL Assessment and Plan Plan: Assessment: 1. Acute kidney injury secondary to ATN secondary to sepsis. Baseline creatinine is near 1. Renal function improved today - creatinine 2.16. Last hemodialysis was on August 15. C3 level was noted to be slightly low and rest of the serologies have been negative. BUN is elevated which is partially due to IV steroids but levels are trending down. No evidence of active GI bleeding at this time. 2. Septic shock secondary to pneumonia. Maintained on antibiotics and antifungal per infectious disease. 3. Acute blood loss anemia with no active bleeding. Better after blood transfusion. Maintained on Aranesp. Status post IV DDAVP on August 18. 4. Volume overload. Improved with diuresis. Currently off diuretics. 5. Acute hypoxic respiratory failure secondary to pneumonia. Status post tracheostomy this admission. 6. Hyperphosphatemia secondary to acute kidney injury maintained on PhosLo. Improving. Plan: Continue to hold diuretics as urine output is adequate. Maintain free water flushes at 300 mL every 6 hours. Monitor sodium level. Continue to hold off on hemodialysis for now. Continue to monitor renal function and urine output. Avoid nephrotoxins. If renal function continues to improve over the next 48 hours, then I will discontinue the dialysis catheter [facility]
--- NOTE | 2018-08-24 11:42 | P.PN ---
Subjective Progress Note Date: 08/24/18 Patient's daughter was present today. Patient had been off sedation. At present patient is very alert and awake. She nods appropriately. Patient turned her head as soon as I entered the room, acknowledged. Denies headache. No new concerns. Her most recent blood test shows WBC 11.9, hemoglobin 7.2, platelets 142. Sodium potassium are normal. Today the BUN is 106, creatinine 2.16. Liver functions are normal. Acetylcholine receptor antibodies are negative. Hepatitis panel negative. DsDNA negative. Antineutrophilic Cytoplasmic antibodies negative. Hemoglobin A1c 5.3 on 08/11/2018. Computed tomography scan of head showed no acute process. Small vessel disease. Some lacunar strokes in the basal ganglia bilaterally. Objective - Vital Signs Vital signs: Vital Signs Temp 99.6 F 08/24/18 08:30 Pulse 109 H 08/24/18 11:26 Resp 31 H 08/24/18 11:00 BP 115/71 08/24/18 11:00 Pulse Ox 97 08/24/18 11:00 Intake & Output 08/23/18 08/24/18 08/24/18 18:59 06:59 18:59 Intake Total 2460 1109.167 246 Output Total 1900 1565 680 Balance 560 -455.833 -434 Weight 84 kg 83.6 kg Intake: IV 1110 120 50 KVO 1110 120 50 Intake, IV Titration 289.167 Amount Diltiazem 125 mg In 89.167 Sodium Chloride 0.9% 100 ml @ 10 MG/HR 10 mls/hr IV .[id number] [facility] Rx#: [id number] Magnesium Sulfate-D5w Pmx 200 1 gm In Dextrose/Water 1 100ml.bag @ 100 mls/hr IVPB Q1H [facility] Rx#: [id number] Tube Feeding 420 400 196 Other 930 300 Output: Urine 1900 1565 630 Stool 50 Other: Voiding Method Indwelling Catheter Indwelling Catheter Indwelling Catheter ABP, PAP, CO, CI - Last Documented Arterial Blood Pressure 117/76 - Exam Patient is on mechanical ventilation, has tracheostomy. Patient is off sedation. Overall patient is very alert and awake. She follows commands. Her strength of eyes are normal. Her face appears somewhat weak in the lower part. Patient not able to move extremities at all, upper or lower extremities. Her reflexes are absent, except trace at the knee. - Labs CBC & Chem 7: 08/24/18 04:10 08/24/18 04:10 Labs: Abnormal Lab Results - Last 24 Hours (Table) 08/23/18 08/23/18 08/23/18 Range/Units 11:49 17:05 19:16 WBC (3.8-10.6) k/uL RBC (3.80-5.40) m/uL Hgb (11.4-16.0) gm/dL Hct (34.0-46.0) % RDW (11.5-15.5) % Plt Count (150-450) k/uL Neutrophils # (1.3-7.7) k/uL Lymphocytes # (1.0-4.8) k/uL Chloride (98-107) mmol/L Carbon Dioxide (22-30) mmol/L BUN (7-17) mg/dL Creatinine (0.52-1.04) mg/dL Glucose (74-99) mg/dL POC Glucose (mg/dL) 140 H 161 H (75-99) mg/dL Calcium (8.4-10.2) mg/dL Phosphorus 5.4 H (2.5-4.5) mg/dL Total Bilirubin (0.2-1.3) mg/dL Total Protein (6.3-8.2) g/dL Albumin (3.5-5.0) g/dL 08/23/18 08/24/18 08/24/18 Range/Units 23:31 04:10 04:10 WBC 11.9 H (3.8-10.6) k/uL RBC 2.39 L (3.80-5.40) m/uL Hgb 7.2 L (11.4-16.0) gm/dL Hct 21.9 L (34.0-46.0) % RDW 17.7 H (11.5-15.5) % Plt Count 117 L (150-450) k/uL Neutrophils # 11.1 H (1.3-7.7) k/uL Lymphocytes # 0.4 L (1.0-4.8) k/uL Chloride 111 H (98-107) mmol/L Carbon Dioxide 21 L (22-30) mmol/L BUN 106 H* (7-17) mg/dL Creatinine 2.16 H (0.52-1.04) mg/dL Glucose 109 H (74-99) mg/dL POC Glucose (mg/dL) 149 H (75-99) mg/dL Calcium 8.0 L (8.4-10.2) mg/dL Phosphorus (2.5-4.5) mg/dL Total Bilirubin 1.5 H (0.2-1.3) mg/dL Total Protein 5.4 L (6.3-8.2) g/dL Albumin 2.5 L (3.5-5.0) g/dL 08/24/18 08/24/18 Range/Units 05:57 06:58 WBC (3.8-10.6) k/uL RBC (3.80-5.40) m/uL Hgb (11.4-16.0) gm/dL Hct (34.0-46.0) % RDW (11.5-15.5) % Plt Count (150-450) k/uL Neutrophils # (1.3-7.7) k/uL Lymphocytes # (1.0-4.8) k/uL Chloride (98-107) mmol/L Carbon Dioxide (22-30) mmol/L BUN (7-17) mg/dL Creatinine (0.52-1.04) mg/dL Glucose (74-99) mg/dL POC Glucose (mg/dL) 118 H 128 H (75-99) mg/dL Calcium (8.4-10.2) mg/dL Phosphorus (2.5-4.5) mg/dL Total Bilirubin (0.2-1.3) mg/dL Total Protein (6.3-8.2) g/dL Albumin (3.5-5.0) g/dL Assessment and Plan Assessment: * Altered mental status, likely related to toxic metabolic encephalopathy. Patient's mentation appears normal, although has slow mentation, likely from encephalopathy. * Status post cardiac arrest on 08/05/2018. * Generalized weakness of arms and legs, probably related to critical illness neuropathy. * Pneumonia, with recent history of septic shock. * Ventilator-dependent respiratory failure. * Acute renal failure, improving * Anemia with hemoglobin 7.2 * Recent history of stroke TIA. * Coronary artery disease with history of cardiac stenting. * X tobacco use. * Possible underlying mild cognitive impairment Plan: Patient's mental status has remarkably improved. Patient continues to be significantly weak in all 4 extremities, perhaps related to critical illness neuropathy. This is based on the fact, that patient had cardiac arrest, septic shock, severe anemia, renal failure, which can all predispose to critical illness neuropathy. Dr. Sotomayor discussed about potential treatment with IVIG. I further discussed with Dr. Sanchez, electric powerline examiner about IVIG. Patient had acute renal failure, which now seems to be improving. IVIG has potential nephrotoxic risks. Per Dr. Sanchez, if IVIG is obviously indicated, then he would recommend renally adjusted dose, with decreased rate of infusion. At present patient probably has critical illness neuropathy. Inflammatory/immune mediated neuropathy (Guillain-Hernandez) is also in the differential, but somewhat less likely. I would suggest lumbar puncture to evaluate for spinal fluid proteins and EMG and nerve conductions of upper and lower extremities to evaluate for demyelinating polyneuropathy. Patient now has atrial fibrillation and has been started on Apixaban, and is also on Plavix, therefore lumbar puncture is out of question. Suggest perhaps transfer to facility where EMG and nerve conductions could be considered. If evidence of demyelinating polyneuropathy, then would recommend IVIG or plasma exchange. Discussed with patient's daughter in detail. We will follow clinically.
[2018-08-24] MEDS: POTASSIUM CHLORIDE 20 MEQ in WATER FOR INJECTION 1 100ML.BAG IVPB SCH ×2 (11:55→14:10)
[2018-08-24 12:08] LABS: Glucose,Whole Blood 141 mg/dL (75-99)
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
[2018-08-24 18:02] LABS: Glucose,Whole Blood 157 mg/dL (75-99)
--- NOTE | 2018-08-24 19:02 | P.PN ---
Subjective Progress Note Date: 08/24/18 Principal diagnosis: Confusion Patient is a 63-year-old female with a past medical history of COPD, DVT, GERD, hypertension, dyslipidemia, and asthma who presented with confusion. In the ER she underwent an extensive evaluation. CT of the head was unremarkable. She was found to have a right upper lobe pneumonia and she was started on antibiotics. Infectious disease was consulted who recommended maintaining antibiotics. Pulmonary was consulted. Sputum culture was obtained which showed probable MRSA. Zosyn was stopped and she was started on Teflaro due to inability to take Zyvox because of SSRI. Nephrology was consulted due to acute kidney injury. They stopped her Lasix, lisinopril, and Toradol. On the morning of 08/06 she went into respiratory distress necessitating intubation, she then had a PEA arrests and total down time was less than 10 minutes. She was moved to the ICU and had a central line placed and was started on norepinephrine. She underwent bronchoscopy with bronchial alveolar lavage. Chest x-ray showed pulmonary infiltrate. Clindamycin was initiated. She had decreased renal function after her code. She was started on a bicarb drip. She was found to have increased PA pressures and new pulmonary hypertension and the concern was for possible pulmonary embolism she was started on IV heparin, however this was then found to be less likely as her FiO2 requirements rapidly improved and heparin gtt was stopped . She had not made significant improvement in her renal function and was subsequently started on dialysis. She had 3 treatments of dialysis. Neurology was consulted who felt this was likely secondary to toxic metabolic encephalopathy but could have underlying anoxic encephalopathy. She had a trach and PEG placed on 08/12/18 and tolerated this well. She was starting to wake up after being taken off all sedatives on 08/13. However overnight on 08/14 she went into respiratory distress requiring propofol and to be placed back on the vent. She also had a drop in hemoglobin and required 1 unit of pRBC. She again had dialysis on 08/14 and 08/15. She required 1 additional unit of pRBC on 08/15. She did have permanent HD cath placed on 08/16. Her last HD was 08/15. She completed her treatment for MRSA PNA. Questran was added for her antibiotic associated diarrhea. She is undergoing CPAP trials daily. Hemoglobin has been stable. She completed her course of flagyl. She went into A fib with RVR on 08/24 started on cardizme gtt and then oral metoprolol. Started on Eliquis and ASA stopped for A fib coverage, maintained on Plavix. Monitoring for signs of renal improvement. Diarrhea Improving daily. Neurology feels like critical illness polyneuropathy, less likely kennedy barre. Unable to do LP due to plavix and eliquis, unable to preform EEG. Continuing to monitor. No IVIG at this time as no clear cut diagnosis and potential for renal toxicity. Will have HD cath removed morning of 08/25 prior to discharge. Patient seen and examined at bedside. awake following commands appropriately. Per nursing no acute events overnight. No family at bedside. Objective - Vital Signs Vital signs: Vital Signs Temp 98.7 F 08/24/18 03:00 Pulse 117 H 08/24/18 08:00 Resp 29 H 08/24/18 08:00 BP 118/80 08/24/18 08:00 Pulse Ox 97 08/24/18 08:00 Intake & Output 08/23/18 08/24/18 08/24/18 18:59 06:59 18:59 Intake Total 2460 1109.167 10 Output Total 1900 1565 125 Balance 560 -455.833 -115 Weight 84 kg Intake: IV 1110 120 10 KVO 1110 120 10 Intake, IV Titration 289.167 Amount Diltiazem 125 mg In 89.167 Sodium Chloride 0.9% 100 ml @ 10 MG/HR 10 mls/hr IV .[id number] [facility] Rx#: [id number] Magnesium Sulfate-D5w Pmx 200 1 gm In Dextrose/Water 1 100ml.bag @ 100 mls/hr IVPB Q1H [facility] Rx#: [id number] Tube Feeding 420 400 Other 930 300 Output: Urine 1900 1565 125 Other: Voiding Method Indwelling Catheter Indwelling Catheter ABP, PAP, CO, CI - Last Documented Arterial Blood Pressure 117/76 - Exam General: non toxic, no distress, appears older than stated age, temporal wasting Derm: multiple areas of ecchymosis, multiple skin tears, warm, dry Head: atraumatic, normocephalic, symmetric Eyes: EOMI, no lid lag, anicteric sclera Mouth: no lip lesion, mucus membranes dry, trach in place without any signs of bleeding Cardiovascular: S1S2 reg, no murmur, positive posterior tibial pulse bilateral, Lungs: Coarse breath Sounds bilaterally, no rhonchi, no rales , no accessory muscle use, + vent Abdominal: soft, nontender to palpation, no guarding, no appreciable organom egaly, PEG in place without any signs of bleeding Ext: + gross muscle atrophy, diffuse anasarca, no contractures Neuro: on CPAP trial, able to follow simple commands, able to wiggle bilateral toes, unable to move fingers Psych: Awake and alert, following commands appropriately - Labs CBC & Chem 7: 08/24/18 04:10 08/24/18 04:10 Labs: Abnormal Lab Results - Last 24 Hours (Table) 08/23/18 08/23/18 08/23/18 Range/Units 11:49 17:05 19:16 WBC (3.8-10.6) k/uL RBC (3.80-5.40) m/uL Hgb (11.4-16.0) gm/dL Hct (34.0-46.0) % RDW (11.5-15.5) % Plt Count (150-450) k/uL Neutrophils # (1.3-7.7) k/uL Lymphocytes # (1.0-4.8) k/uL Chloride (98-107) mmol/L Carbon Dioxide (22-30) mmol/L BUN (7-17) mg/dL Creatinine (0.52-1.04) mg/dL Glucose (74-99) mg/dL POC Glucose (mg/dL) 140 H 161 H (75-99) mg/dL Calcium (8.4-10.2) mg/dL Phosphorus 5.4 H (2.5-4.5) mg/dL Total Bilirubin (0.2-1.3) mg/dL Total Protein (6.3-8.2) g/dL Albumin (3.5-5.0) g/dL 08/23/18 08/24/18 08/24/18 Range/Units 23:31 04:10 04:10 WBC 11.9 H (3.8-10.6) k/uL RBC 2.39 L (3.80-5.40) m/uL Hgb 7.2 L (11.4-16.0) gm/dL Hct 21.9 L (34.0-46.0) % RDW 17.7 H (11.5-15.5) % Plt Count 117 L (150-450) k/uL Neutrophils # 11.1 H (1.3-7.7) k/uL Lymphocytes # 0.4 L (1.0-4.8) k/uL Chloride 111 H (98-107) mmol/L Carbon Dioxide 21 L (22-30) mmol/L BUN 106 H* (7-17) mg/dL Creatinine 2.16 H (0.52-1.04) mg/dL Glucose 109 H (74-99) mg/dL POC Glucose (mg/dL) 149 H (75-99) mg/dL Calcium 8.0 L (8.4-10.2) mg/dL Phosphorus (2.5-4.5) mg/dL Total Bilirubin 1.5 H (0.2-1.3) mg/dL Total Protein 5.4 L (6.3-8.2) g/dL Albumin 2.5 L (3.5-5.0) g/dL 08/24/18 08/24/18 Range/Units 05:57 06:58 WBC (3.8-10.6) k/uL RBC (3.80-5.40) m/uL Hgb (11.4-16.0) gm/dL Hct (34.0-46.0) % RDW (11.5-15.5) % Plt Count (150-450) k/uL Neutrophils # (1.3-7.7) k/uL Lymphocytes # (1.0-4.8) k/uL Chloride (98-107) mmol/L Carbon Dioxide (22-30) mmol/L BUN (7-17) mg/dL Creatinine (0.52-1.04) mg/dL Glucose (74-99) mg/dL POC Glucose (mg/dL) 118 H 128 H (75-99) mg/dL Calcium (8.4-10.2) mg/dL Phosphorus (2.5-4.5) mg/dL Total Bilirubin (0.2-1.3) mg/dL Total Protein (6.3-8.2) g/dL Albumin (3.5-5.0) g/dL Microbiology - Last 24 Hours (Table) 08/06/18 09:30 Acid Fast Bacilli Smear - Final Bronchial Washings - Random Acid Fast Bacilli Culture - Preliminary Assessment and Plan Assessment: Toxic Encephalopathy, improving -Neurology recommendations appreciated -Continue reorientation New onset Afib, provoked by hypoxia - Metoprolol - Eliquis Antibiotic associate diarrhea - c diff negative - flagyl completed , on Questran, probiotic - maintain fecal management system, d/c as able Anemia, multifactoral - suspect dilutional, + FOB, but no active bleeding -Hemoglobin currently stable - s/p 2 units pRBC Thrombocytopenia, reactive -Follow CBC Acute hypoxic respiratory failure -Status post tracheostomy -Vent management per pulmonary, undergoing daily CPAP weaning Acute kidney injury requiring hemodialysis -Nephrology recommendations appreciated: Last HD 08/15, has permanent HD catheter to be removed in AM -Avoid additional nephrotoxic agents -Follow basic metabolic profile daily -On PhosLo COPD with exacerbation -Scheduled DuoNeb's -When necessary bronchodilators -Solu-Medrol being weaned by pulmonary Hypertension, controlled -Follow blood pressures -Off Norvasc and lisinopril, on metoprolol Hypothyroidism -Continue with Synthroid therapy Chronic pain syndrome -Status post removal of pain pump -tylenol for pain Severe pulmonary hypertension -Management per pulmonary Critical illness polyneuropathy -PT/OT recs - to LT[facility] 08/25 - Consider EMG if able. Neuro with concerns for possible wichovolodymyr Patric, but feels critical illnes polyneuropathy more likely, not a candidate for LP due plavix and eliquis -Neurology recommendations appreciated History of closed head injury Aborted sudden cardiac with PEA Septic shock, resolved MRSA pneumonia, Acute hypoxic respiratory failure, akash in sputum, resolved oral candidiasis, resolved DVT prophylaxis: heparin Discussed with: nursing, Dr. Sanchez, Dr. Barnes Anticipated discharge: 08/[address]: LT[facility] A total of 25 minutes was spent on the care of this complex patient more than 50% of the time was spent in counseling and care coordination.
[2018-08-24] MEDS: AMITRIPTYLINE HCL 50 MG TAB PO SCH (19:49)
[2018-08-24] MEDS: QUEtiapine 200 MG TAB PO SCH (19:49)
[2018-08-24] MEDS: ACETAMINOPHEN TAB 325 MG TAB PO PRN (21:06)
--- NOTE | 2018-08-24 21:57 | P.PN ---
Subjective Progress Note Date: 08/24/18 Principal diagnosis: New fever The patient did have a low-grade fever 100.2 this evening, the patient no white count to11.9, the patient has been hemodynamically stable not requiring any pressor support FiO2 is stable as well patient is awake and alert and follows some simple question has been tolerating tube feeds continued to have diarrhea but no worsening has been noticed Objective - Vital Signs Vital signs: Vital Signs Temp 100.2 F H 08/24/18 20:00 Pulse 92 08/24/18 21:00 Resp 28 H 08/24/18 21:00 BP 92/70 08/24/18 21:00 Pulse Ox 96 08/24/18 21:00 Intake & Output 08/24/18 08/24/18 08/25/18 06:59 18:59 06:59 Intake Total 8721.619 7900 177 Output Total 1565 2100 335 Balance -455.833 -641 -158 Weight 83.6 kg Intake: IV 120 120 30 KVO 120 120 30 Intake, IV Titration 289.167 200 Amount Diltiazem 125 mg In 89.167 Sodium Chloride 0.9% 100 ml @ 10 MG/HR 10 mls/hr IV .[id number] [facility] Rx#: [id number] Magnesium Sulfate-D5w Pmx 200 1 gm In Dextrose/Water 1 100ml.bag @ 100 mls/hr IVPB Q1H [facility] Rx#: [id number] Potassium Chloride 20 meq 200 In Water For Injection 1 100ml.bag @ 50 mls/hr IVPB Q2H [facility] Rx#: [id number] Tube Feeding 400 539 147 Other 300 600 Output: Urine 1565 1400 335 Stool 700 Other: Voiding Method Indwelling Catheter Indwelling Catheter Indwelling Catheter ABP, PAP, CO, CI - Last Documented Arterial Blood Pressure 117/76 - Exam GENERAL DESCRIPTION:[ Middle-aged female intubated through the trach on the vent] HEENT: [Oral mucous membrane is dry] EYES : pallor or scleral icterus] RESPIRATORY SYSTEM: [Unlabored breathing decreased breath sound at the base] CARDIA VASCULAR SYSTEM: [S1-S2 regular rate and rhythm no murmur] GI: [Abdominal soft there's no tenderness no organomegaly] EXTREMITIES: [No edema feet] - Labs CBC & Chem 7: 08/24/18 04:10 08/24/18 04:10 Labs: Abnormal Lab Results - Last 24 Hours (Table) 08/23/18 08/24/18 08/24/18 Range/Units 23:31 04:10 04:10 WBC 11.9 H (3.8-10.6) k/uL RBC 2.39 L (3.80-5.40) m/uL Hgb 7.2 L (11.4-16.0) gm/dL Hct 21.9 L (34.0-46.0) % RDW 17.7 H (11.5-15.5) % Plt Count 117 L (150-450) k/uL Neutrophils # 11.1 H (1.3-7.7) k/uL Lymphocytes # 0.4 L (1.0-4.8) k/uL Chloride 111 H (98-107) mmol/L Carbon Dioxide 21 L (22-30) mmol/L BUN 106 H* (7-17) mg/dL Creatinine 2.16 H (0.52-1.04) mg/dL Glucose 109 H (74-99) mg/dL POC Glucose (mg/dL) 149 H (75-99) mg/dL Calcium 8.0 L (8.4-10.2) mg/dL Total Bilirubin 1.5 H (0.2-1.3) mg/dL Total Protein 5.4 L (6.3-8.2) g/dL Albumin 2.5 L (3.5-5.0) g/dL 08/24/18 08/24/18 08/24/18 Range/Units 05:57 06:58 11:41 WBC (3.8-10.6) k/uL RBC (3.80-5.40) m/uL Hgb (11.4-16.0) gm/dL Hct (34.0-46.0) % RDW (11.5-15.5) % Plt Count (150-450) k/uL Neutrophils # (1.3-7.7) k/uL Lymphocytes # (1.0-4.8) k/uL Chloride (98-107) mmol/L Carbon Dioxide (22-30) mmol/L BUN (7-17) mg/dL Creatinine (0.52-1.04) mg/dL Glucose (74-99) mg/dL POC Glucose (mg/dL) 118 H 128 H 141 H (75-99) mg/dL Calcium (8.4-10.2) mg/dL Total Bilirubin (0.2-1.3) mg/dL Total Protein (6.3-8.2) g/dL Albumin (3.5-5.0) g/dL 08/24/18 Range/Units 17:36 WBC (3.8-10.6) k/uL RBC (3.80-5.40) m/uL Hgb (11.4-16.0) gm/dL Hct (34.0-46.0) % RDW (11.5-15.5) % Plt Count (150-450) k/uL Neutrophils # (1.3-7.7) k/uL Lymphocytes # (1.0-4.8) k/uL Chloride (98-107) mmol/L Carbon Dioxide (22-30) mmol/L BUN (7-17) mg/dL Creatinine (0.52-1.04) mg/dL Glucose (74-99) mg/dL POC Glucose (mg/dL) 157 H (75-99) mg/dL Calcium (8.4-10.2) mg/dL Total Bilirubin (0.2-1.3) mg/dL Total Protein (6.3-8.2) g/dL Albumin (3.5-5.0) g/dL Assessment and Plan Assessment: 1-patient with new low-grade fever 100.2-- chest x-ray this morning was suggestive of fluid overload with no evidence of any consolidation with a question of possible urinary tract infection Plan: 1-we will obtain blood cultures stat 2-obtain a UA and a culture 3-empirically add cefepime 1 g every 12hr Adjusting antibiotics further on the basis of clinical condition and culture Time with Patient: Less than 30
[2018-08-24] MEDS: CEFEPIME 1 GM in SODIUM CHLORIDE 0.9% 50 ML IVPB SCH (22:25)
[2018-08-24 23:47] LABS: Glucose,Whole Blood 120 mg/dL (75-99)
[2018-08-25 00:13] LABS: Appearance,Urine Clear (Clear); Bacteria,Urine Few /hpf; Bilirubin,Urine Negative (Negative); Blood,Urine Small (Negative); Color,Urine Yellow; Glucose,Urine (UA) Negative (Negative); Ketones,Urine Negative (Negative); Leukocyte Esterase,Urine Negative (Negative); Mucus,Urine Rare /hpf; Nitrite,Urine Negative (Negative); Protein,Urine 1+ (Negative); RBC,Urine 1 /hpf (0-5); Specific Gravity,Urine 1.016 (1.001-1.035); Squamous Epithelial Cell,Urine <1 /hpf (0-4); Urobilinogen,Urine <2.0 mg/dL (<2.0)
[2018-08-25] MEDS: INSULIN ASPART (NovoLOG) 100 UNIT/ML VIAL SQ SCH ×3 (00:31→12:36)
[2018-08-25 05:15] LABS: ABG Base Excess -3.6 mmol/L; ABG HCO3 20 mmol/L (21-25); ABG Oxygen Saturation 97.9 % (94-97); ABG PCO2 30 mmHg (35-45); ABG PH 7.45 (7.35-7.45); ABG PO2 94 mmHg (83-108); ABG TCO2 21 mmol/L (19-24)
[2018-08-25] MEDS: LEVOTHYROXINE 75 MCG TAB PEG/G-TUBE SCH (06:16)
[2018-08-25] MEDS: ACETAMINOPHEN TAB 325 MG TAB PO PRN (06:16)
[2018-08-25] MEDS: CALCIUM ACETATE 667 MG CAP PO SCH ×2 (06:16→12:36)
[2018-08-25 06:46] LABS: Anisocytosis Slight; Basophils % (A) 0 %; Eosinophils # (A) 0.3 k/uL (0-0.7); Eosinophils % (A) 2 %; HCT 24.3 % (34.0-46.0); HGB 7.7 gm/dL (11.4-16.0); Hypochromasia Slight; Lymphocytes # (A) 0.7 k/uL (1.0-4.8); Lymphocytes % (A) 5 %; MCH 29.6 pg (25.0-35.0); MCHC 31.9 g/dL (31.0-37.0); MCV 92.9 fL (80.0-100.0); Mean Platelet Volume 8.9; Monocytes # (A) 0.4 k/uL (0-1.0); Monocytes % (A) 3 %; Neutrophils # (A) 11.3 k/uL (1.3-7.7); Neutrophils % (A) 88 %; Platelet Count 125 k/uL (150-450); RBC 2.61 m/uL (3.80-5.40); RDW 17.9 % (11.5-15.5); WBC 12.9 k/uL (3.8-10.6)
[2018-08-25 06:49] LABS: Glucose,Whole Blood 123 mg/dL (75-99)
[2018-08-25] MEDS: METOPROLOL TARTRATE 50 MG TAB PO SCH (06:57)
[2018-08-25 07:11] LABS: Albumin 2.7 g/dL (3.5-5.0); Calcium 8.6 mg/dL (8.4-10.2); Potassium 4.3 mmol/L (3.5-5.1); Total Bilirubin 1.9 mg/dL (0.2-1.3); Total Protein 5.8 g/dL (6.3-8.2)
--- NOTE | 2018-08-25 07:14 | XR ---
EXAMINATION TYPE: XR chest 1V portable DATE OF EXAM: 08/25/2018 COMPARISON: 08/24/2018 HISTORY: Cough TECHNIQUE: Single frontal view of the chest is obtained. FINDINGS: There is similar diffuse interstitial prominence and few predominantly left-sided alveolar small patchy opacities. Tracheostomy is midline. Dual lumen central venous catheter has been removed with the PICC line in unchanged position. Cardiomediastinal silhouette is enlarged. No sizable pleur al effusion or pneumothorax. Generalized osseous demineralization is seen. IMPRESSION: Moderate interstitial and mild alveolar pulmonary edema. Again most likely congestive he art failure versus less likely noncardiogenic edema.
[2018-08-25] MEDS: IPRATROPIUM-ALBUTEROL 3 ML NEB INHALATION SCH ×3 (07:29→15:11)
[2018-08-25] MEDS ORDERED: PANTOPRAZOLE 40 MG/10 ML VIAL IVP SCH (09:00)
[2018-08-25] MEDS ORDERED: methylPREDNISolone SOD SUCCI 40 MG/ML 1 ML VIAL IV SCH (09:00)
--- NOTE | 2018-08-25 09:03 | P.PN ---
Subjective Patient is seen in follow-up for acute kidney injury. Her baseline creatinine is near 1. Patient required hemodialysis this admission. Last treatment was on August 15. Lasix has been held as of August 20. Urine output has been about 100 mL an hour. She underwent tracheostomy this admission. Renal function is improved. Creatinine 1.86 today. BUN is trending down. She is on IV steroids - dose being gradually decreased. She is also on tube feeding. Patient developed fever last night 102F. Cultures were sent. Dialysis catheter was also dis continued on August 24. Vital signs are stable. General: The patient appeared well nourished and normally developed. Tracheostomy noted. HEENT: Head exam is unremarkable. Neck is without jugular venous distension. LUNGS: Breath sounds decreased. HEART: Rate and Rhythm are regular. First and second heart sounds normal. No murmurs, rubs or gallops. ABDOMEN: Abdominal exam reveals normal bowel sounds. Nontender. EXTREMITITES: 1+ edema. Objective - Vital Signs Vital signs: Vital Signs Temp 100.7 F H 08/25/18 08:00 Pulse 121 H 08/25/18 08:00 Resp 23 08/25/18 08:00 BP 133/93 08/25/18 08:00 Pulse Ox 97 08/25/18 08:00 Intake & Output 08/24/18 08/25/18 08/25/18 18:59 06:59 18:59 Intake Total 1459 1358 118 Output Total 2100 1435 185 Balance -641 -77 -67 Weight 83.6 kg 83.9 kg Intake: IV 120 120 20 KVO 120 120 20 Intake, IV Titration 200 50 Amount Cefepime 1 gm In Sodium 50 Chloride 0.9% 50 ml @ 100 mls/hr IVPB Q12HR [facility] Rx #:[id number] Potassium Chloride 20 meq 200 In Water For Injection 1 100ml.bag @ 50 mls/hr IVPB Q2H [facility] Rx#: [id number] Tube Feeding 539 588 98 Other 600 600 Output: Urine 1400 1285 185 Stool 700 150 Other: Voiding Method Indwelling Catheter Indwelling Catheter ABP, PAP, CO, CI - Last Documented Arterial Blood Pressure 117/76 - Labs CBC & Chem 7: 08/25/18 06:30 08/25/18 06:30 Labs: Abnormal Lab Results - Last 24 Hours (Table) 08/24/18 08/24/1808/24/19 Range/Units 11:41 17:36 23:43 WBC (3.8-10.6) k/uL RBC (3.80-5.40) m/uL Hgb (11.4-16.0) gm/dL Hct (34.0-46.0) % RDW (11.5-15.5) % Plt Count (150-450) k/uL Neutrophils # (1.3-7.7) k/uL Lymphocytes # (1.0-4.8) k/uL ABG pCO2 (35-45) mmHg ABG HCO3 (21-25) mmol/L ABG O2 Saturation (94-97) % Chloride (98-107) mmol/L BUN (7-17) mg/dL Creatinine (0.52-1.04) mg/dL Glucose (74-99) mg/dL POC Glucose (mg/dL) 141 H 157 H 120 H (75-99) mg/dL Total Bilirubin (0.2-1.3) mg/dL AST (14-36) U/L Alkaline Phosphatase (38-126) U/L Total Protein (6.3-8.2) g/dL Albumin (3.5-5.0) g/dL Urine Protein (Negative) Urine Blood (Negative) Urine Bacteria (None) /hpf Urine Mucus (None) /hpf 08/24/18 08/25/18 08/25/18 Range/Units 23:50 05:07 06:12 WBC (3.8-10.6) k/uL RBC (3.80-5.40) m/uL Hgb (11.4-16.0) gm/dL Hct (34.0-46.0) % RDW (11.5-15.5) % Plt Count (150-450) k/uL Neutrophils # (1.3-7.7) k/uL Lymphocytes # (1.0-4.8) k/uL ABG pCO2 30 L (35-45) mmHg ABG HCO3 20 L (21-25) mmol/L ABG O2 Saturation 97.9 H (94-97) % Chloride (98-107) mmol/L BUN (7-17) mg/dL Creatinine (0.52-1.04) mg/dL Glucose (74-99) mg/dL POC Glucose (mg/dL) 123 H (75-99) mg/dL Total Bilirubin (0.2-1.3) mg/dL AST (14-36) U/L Alkaline Phosphatase (38-126) U/L Total Protein (6.3-8.2) g/dL Albumin (3.5-5.0) g/dL Urine Protein 1+ H (Negative) Urine Blood Small H (Negative) Urine Bacteria Few H (None) /hpf Urine Mucus Rare H (None) /hpf 08/25/18 08/25/18 Range/Units 06:30 06:30 WBC 12.9 H (3.8-10.6) k/uL RBC 2.61 L (3.80-5.40) m/uL Hgb 7.7 L (11.4-16.0) gm/dL Hct 24.3 L (34.0-46.0) % RDW 17.9 H (11.5-15.5) % Plt Count 125 L (150-450) k/uL Neutrophils # 11.3 H (1.3-7.7) k/uL Lymphocytes # 0.7 L (1.0-4.8) k/uL ABG pCO2 (35-45) mmHg ABG HCO3 (21-25) mmol/L ABG O2 Saturation (94-97) % Chloride 114 H (98-107) mmol/L BUN 101 H* (7-17) mg/dL Creatinine 1.86 H (0.52-1.04) mg/dL Glucose 115 H (74-99) mg/dL POC Glucose (mg/dL) (75-99) mg/dL Total Bilirubin 1.9 H (0.2-1.3) mg/dL AST 45 H (14-36) U/L Alkaline Phosphatase 148 H (38-126) U/L Total Protein 5.8 L (6.3-8.2) g/dL Albumin 2.7 L (3.5-5.0) g/dL Urine Protein (Negative) Urine Blood (Negative) Urine Bacteria (None) /hpf Urine Mucus (None) /hpf Assessment and Plan Plan: Assessment: 1. Acute kidney injury secondary to ATN secondary to sepsis. Baseline creatinine is near 1. Renal function improved today - creatinine 1.86. Last hemodialysis was on August 15. C3 level was noted to be slightly low and rest of the serologies have been negative. BUN is elevated which is partially due to IV steroids but levels are trending down. No evidence of active GI bleeding at this time. 2. Septic shock secondary to pneumonia. Maintained on antibiotics and antifungal per infectious disease. Patient developed fever last night. 3. Acute blood loss anemia with no active bleeding. Better after blood transfusion. Maintained on Aranesp. Status post IV DDAVP on August 18. 4. Volume overload. Improved with diuresis. Currently off diuretics. 5. Acute hypoxic respiratory failure secondary to pneumonia. Status post tracheostomy this admission. 6. Hyperphosphatemia secondary to acute kidney injury maintained on PhosLo. Improving. Plan: Continue to hold diuretics as urine output is adequate. Maintain free water flushes at 300 mL every 6 hours. Monitor sodium level. Continue to monitor renal function and urine output. Avoid nephrotoxins. Dialysis catheter was discontinued on August 24. I don't anticipate the need for renal replacement therapy at this time. Follow-up cultures.
[2018-08-25] MEDS: SERTRALINE 100 MG TAB PO SCH (10:04)
[2018-08-25] MEDS: ALPRAZolam 1 MG TAB PO SCH (10:04)
[2018-08-25] MEDS: FOLIC ACID 1 MG TAB PO SCH (10:04)
[2018-08-25] MEDS: CHLORHEXIDINE GLUCONATE 15 ML CUP MUCOUS MEM SCH (10:04)
[2018-08-25] MEDS: ATORVASTATIN 40 MG TAB PO SCH (10:04)
[2018-08-25] MEDS: CLOPIDOGREL 75 MG TAB PO SCH (10:04)
[2018-08-25] MEDS: LACTOBACILLUS ACIDOPH & BULGAR 1 EACH PACKET PEG/G-TUBE SCH (10:05)
[2018-08-25] MEDS: APIXABAN 2.5 MG TABLET PO SCH (10:05)
[2018-08-25] MEDS: CEFEPIME 1 GM in SODIUM CHLORIDE 0.9% 50 ML IVPB SCH (10:05)
[2018-08-25] MEDS: CHOLESTYRAMINE (WITH SUGAR) 4 GM PACKET PEG/G-TUBE SCH (10:05)
--- NOTE | 2018-08-25 10:30 | PN ---
PROGRESS NOTE Ms. Nick is a 63-year-old female with known history of coronary artery disease status post percutaneous revascularization, who presented with pneumonia and respiratory failure requiring mechanical ventilation. She has been intubated and had a trach. She was planned to transfer to [facility]. Two days ago, she went in atrial fibrillation with rapid ventricular response. She continues to be in atrial fibrillation. She has been anticoagulated. She is hemodynamically stable. She still has episodes of rapid ventricular response. She had a low-grade fever yesterday. There is no evidence of ventricle arrhythmia. She has no evidence of hypotension and he is requiring no pressors. She has no gross evidence of bleeding. She continues to be on Eliquis 2.5 mg twice a day, Lipitor 40 mg daily, Plavix 75 mg daily, metoprolol tartrate 50 mg twice a day. PHYSICAL EXAMINATION: VITAL SIGNS: Blood pressure 133/80 with a heart rate in the one teens to 120s. She had a temperature of a 101.1. LUNGS with a few crackles anteriorly. HEART: Irregularly irregular, S1, S2. No S3. No rub appreciated. ABDOMEN: Soft. Positive bowel sounds. No organomegaly. EXTREMITIES: No significant edema. LAB DATA: Lab data revealed BUN and creatinine 101 and 1.86, which are continuing to improve. Her potassium is 4.3. Her hemoglobin is 7.7. Her chest x-ray shows continuing signs of bilateral infiltrate consistent with ARDS. IMPRESSION: 1. Respiratory failure with pneumonia and findings consistent with ARDS, status post tracheostomy. 2. Atrial fibrillation with episode of rapid ventricular response. 3. History of coronary artery disease. 4. Acute renal injury, improving. 5. Septic shock, stabilizing. RECOMMENDATIONS: We will continue on the anticoagulation. I will increase the dose of her beta lucinda to improve her rate control. Continue on the Plavix. MMODL / IJN: [id number] /
--- NOTE | 2018-08-25 11:59 | PCN ---
PROCEDURE NOTE PROCEDURE: Removal of the dialysis catheter, right jugular approach. DESCRIPTION OF PROCEDURE: This patient was seen in the room right side of the neck and chest was prepped. Drapes were applied in the usual sterile manner and 1% lidocaine infiltrated. A small incision was made at the site of the catheter. Catheter was removed. Pressure dressing applied. Patient tolerated the procedure well. KARIN / JAMARN: [id number] /
[2018-08-25 12:23] VITALS: TEMP 99.9
[2018-08-25 12:31] LABS: Glucose,Whole Blood 142 mg/dL (75-99)
--- NOTE | 2018-08-25 12:32 | P.DS ---
Providers Date of admission: 07/31/18 20:51 Expected date of discharge: 08/25/18 Attending physician: Juvenal Graham MD Consults: 08/01/18 13:09 Consult Physician Routine Consulting Provider: Rosie Sotomayor Consult Reason/Comments: PNA Do you want consulting provider notified?: Yes 08/01/18 13:12 Consult Physician Routine Consulting Provider: Edgar Herrera Consult Reason/Comments: PNA, sepsis Do you want consulting provider notified?: Yes 08/05/18 11:50 Consult Physician Routine Consulting Provider: Zelda Schmitt Consult Reason/Comments: increase BUN and CR Do you want consulting provider notified?: Yes 08/05/18 14:54 Consult Physician Routine Consulting Provider: Pola Stockton Consult Reason/Comments: Possible CHF exacerbation. Echo done recently at [facility]. Do you want consulting provider notified?: Yes 08/10/18 09:15 Consult Physician Urgent Consulting Provider: Meghana Aragon Consult Reason/Comments: Mental status Do you want consulting provider notified?: Already Contacted 08/10/18 09:42 Consult Physician Urgent Consulting Provider: Arvind Mckeon Consult Reason/Comments: Temporary Dialysis Catheter Placement Do you want consulting provider notified?: Yes 08/24/18 18:56 Consult Physician Routine Consulting Provider: Arvind Mckeon Consult Reason/Comments: removal of HD cath Do you want consulting provider notified?: Yes Primary care physician: Xiomara Deleon MD Hospital Course: Patient is a 63-year-old female with a past medical history of COPD, DVT, GERD, hypertension, dyslipidemia, and asthma who presented with confusion. In the ER she underwent an extensive evaluation. CT of the head was unremarkable. She was found to have a right upper lobe pneumonia and she was started on antibiotics. Infectious disease was consulted who recommended maintaining antibiotics. Pulmonary was consulted. Sputum culture was obtained which showed probable MRSA. Zosyn was stopped and she was started on Teflaro due to inability to take Zyvox because of SSRI. Nephrology was consulted due to acute kidney injury. They stopped her Lasix, lisinopril, and Toradol. On the morning of 08/06 she went into respiratory distress necessitating intubation, she then had a PEA arrests and total down time was less than 10 minutes. She was moved to the ICU and had a central line placed and was started on norepinephrine. She underwent bronchoscopy with bronchial alveolar lavage. Chest x-ray showed pulmonary infiltrate. Clindamycin was initiated. She had decreased renal function after her code. She was started on a bicarb drip. She was found to have increased PA pressures and new pulmonary hypertension and the concern was for possible pulmonary embolism she was started on IV heparin, however this was then found to be less likely as her FiO2 requirements rapidly improved and heparin gtt was stopped . She had not made significant improvement in her renal function and was subsequently started on dialysis. She had 3 treatments of dialysis. Neurology was consulted who felt this was likely secondary to toxic metabolic encephalopathy but could have underlying anoxic encephalopathy. She had a trach and PEG placed on 08/12/18 and tolerated this well. She was starting to wake up after being taken off all sedatives on 08/13. However overnight on 08/14 she went into respiratory distress requiring propofol and to be placed back on the vent. She also had a drop in hemoglobin and required 1 unit of pRBC. She again had dialysis on 08/14 and 08/15. She required 1 additional unit of pRBC on 08/15. She did have permanent HD cath placed on 08/16. Her last HD was 08/15. She completed her treatment for MRSA PNA. Questran was added for her antibiotic associated diarrhea. She is undergoing CPAP trials daily. Hemoglobin has been stable. She completed her course of flagyl. She went into A fib with RVR on 08/24 started on cardizem gtt and then oral metoprolol. Started on Eliquis and ASA stopped for A fib coverage, maintained on Plavix. Diarrhea Improving daily. Neurology feels like critical illness polyneuropathy, less likely kennedy barre. Unable to do LP due to plavix and eliquis, unable to preform EEG. Continuing to monitor. No IVIG at this time as no clear cut diagnosis and potential for renal toxicity. Will have HD cath removed morning of 08/25 prior to discharge. Discharge process took approximately 35 minutes. Physical exam Gen. appearance the patient is awake and alert . She is extremely weak. She can on the regular dose. She can also bleeding. She opens her eyes spontaneously. She is following simple command.. She is been off sedation since yesterday. She has a tracheostomy tube in place and she is attached to mechanical ventilator. Head exam was generally normal. There was no scleral icterus. Mucous membranes were moist. Neck was supple and without jugular venous distension, thyromegaly, or carotid bruits. Carotids were easily palpable bilaterally. There was no adenopathy. The patient is an orogastric and orotracheal tube in place. The patient has a tracheostomy tube in place which is a #8 Bivona trach tube. Lungs sounds are diminished and scattered rhonchi heard throughout the lung sanchez bilaterally and crackles in left more than right. Cardiac exam revealed the PMI to be normally situated and sized. The rhythm is irregular consistent with atrial fibrillation. The rate is controlled for now and no extrasystoles were noted during several minutes of auscultation. The first and second heart sounds were normal and physiologic splitting of the second heart sound was noted. There were no murmurs, rubs, clicks, or gallops. Abdominal exam revealed normal bowel sounds. The abdomen was soft, non-tender, and without masses, organomegaly, or appreciable enlargement of the abdominal aorta. The patient has a packing in place and the abdomen is nondistended. No direct tenderness amount tensile guarding. Examination of the extremities revealed easily palpable radial, femoral and pedal pulses. There was no cyanosis, clubbing or edema. Examination of the skin revealed no evidence of significant rashes, suspicious appearing nevi or other concerning lesions. Neurologically She remains profoundly weak. Response to questions and she can't communicate by making facial expressions answering yes and no. Doesn't seem to be in pain at this point in time. She grimaces and she is very comfortable on the mechanical ventilator. No facial asymmetry. Pupils are equal and reactive to light. Reflexes are +1 symmetric in all 4 extremities. Significant muscle weaknesses of the patient is unable to raise her arms and legs against gravity. No Babinski. No clonus. Patient Condition at Discharge: Fair Plan - Discharge Summary Discharge Rx Participant: Yes New Discharge Prescriptions: New Darbepoetin Juliocesar [Aranesp] 40 mcg SQ Q7D syringe Ipratropium-Albuterol Nebulize [Duoneb 0.5 mg-3 mg/3 ml Soln] 3 ml INHALATION RT-Q2H PRN ampul.neb PRN Reason: Shortness Of Breath Or Wheezing Ipratropium-Albuterol Nebulize [Duoneb 0.5 mg-3 mg/3 ml Soln] 3 ml INHALATION RT-QID ampul.neb Amitriptyline HCl [Elavil] 50 mg PO HS tab Apixaban [Eliquis] 2.5 mg PO BID tablet Lactobacillus Acidoph & Bulgar [Lactinex] 1 each PEG/G-TUBE BID packet Atorvastatin [Lipitor] 40 mg PO DAILY tab Metoprolol Tartrate [Lopressor] 50 mg PO TID tab INSULIN ASPART (NovoLOG) [NovoLOG (formulary)] 0 unit SQ Q6HR vial Calcium Acetate [PhosLo] 1,334 mg PO TID-W/MEALS cap Cholestyramine (with Sugar) [Questran Packet] 4 gm PEG/G-TUBE BID@1000,1800 packet Levothyroxine Sodium [Synthroid] 75 mcg PEG/G-TUBE DAILY@0630 tab Continue Tiotropium 18 Mcg/Puff [Spiriva] 1 cap INHALATION RT-DAILY Montelukast [Singulair] 10 mg PO HS Budesonide/Formoterol Fumarate [Symbicort 80-4.5 Mcg Inhaler] 2 puff INHALATION RT-BID Nitroglycerin Sl Tabs [Nitrostat] 0.4 mg SUBLINGUAL Q5M PRN PRN Reason: Chest Pain Albuterol Inhaler [Ventolin Hfa Inhaler] 1 - 2 puff INHALATION RT-Q6H PRN PRN Reason: Shortness Of Breath Omeprazole [PriLOSEC] 40 mg PO BID Fluticasone Nasal Sanford [Flonase Nasal Sanford] 1 spray EA NOSTRIL DAILY Docusate [Colace] 100 mg PO HS Sertraline [Zoloft] 150 mg PO QAM #45 tab ALPRAZolam [Xanax] 1 mg PO BID PRN PRN Reason: Anxiety QUEtiapine FUMARATE [SEROquel] 200 mg PO HS Folic Acid 1 mg PO DAILY Clopidogrel [Plavix] 75 mg PO DAILY Discontinued Simvastatin [Zocor] 40 mg PO QAM Isosorbide Mononitrate [Imdur] 60 mg PO QAM Levothyroxine Sodium [Synthroid] 75 mcg PO DAILY amLODIPine [Norvasc] 5 mg PO DAILY #30 tab Amitriptyline HCl [Elavil] 100 mg PO HS Lisinopril [Zestril] 10 mg PO DAILY metroNIDAZOLE [Flagyl] 500 mg PO BID Metoprolol Tartrate [Lopressor] 25 mg PO BID Cyclobenzaprine [Flexeril] 10 mg PO TID PRN PRN Reason: Muscle Spasm Discharge Medication List Montelukast [Singulair] 10 mg PO HS 12/28/13 [History] Tiotropium 18 Mcg/Puff [Spiriva] 1 cap INHALATION RT-DAILY 12/28/13 [History] Budesonide/Formoterol Fumarate [Symbicort 80-4.5 Mcg Inhaler] 2 puff INHALATION RT-BID 12/29/13 [History] Nitroglycerin Sl Tabs [Nitrostat] 0.4 mg SUBLINGUAL Q5M PRN 12/29/13 [History] Albuterol Inhaler [Ventolin Hfa Inhaler] 1 - 2 puff INHALATION RT-Q6H PRN 12/26/16 [History] Omeprazole [PriLOSEC] 40 mg PO BID 12/28/16 [History] Docusate [Colace] 100 mg PO HS 12/21/17 [History] Fluticasone Nasal Sanford [Flonase Nasal Sanford] 1 spray EA NOSTRIL DAILY 12/21/17 [History] Sertraline [Zoloft] 150 mg PO QAM #45 tab 03/04/18 [Rx] ALPRAZolam [Xanax] 1 mg PO BID PRN 06/16/18 [History] QUEtiapine FUMARATE [SEROquel] 200 mg PO HS 06/16/18 [History] Clopidogrel [Plavix] 75 mg PO DAILY 07/31/18 [History] Folic Acid 1 mg PO DAILY 07/31/18 [History] Amitriptyline HCl [Elavil] 50 mg PO HS tab 08/25/18 [Rx] Apixaban [Eliquis] 2.5 mg PO BID tablet 08/25/18 [Rx] Atorvastatin [Lipitor] 40 mg PO DAILY tab 08/25/18 [Rx] Calcium Acetate [PhosLo] 1,334 mg PO TID-W/MEALS cap 08/25/18 [Rx] Cholestyramine (with Sugar) [Questran Packet] 4 gm PEG/G-TUBE BID@1000,1800 packet 08/25/18 [Rx] Darbepoetin Juliocesar [Aranesp] 40 mcg SQ Q7D syringe 08/25/18 [Rx] INSULIN ASPART (NovoLOG) [NovoLOG (formulary)] 0 unit SQ Q6HR vial 08/25/18 [Rx] Ipratropium-Albuterol Nebulize [Duoneb 0.5 mg-3 mg/3 ml Soln] 3 ml INHALATION RT-Q2H PRN ampul.neb 08/25/18 [Rx] Ipratropium-Albuterol Nebulize [Duoneb 0.5 mg-3 mg/3 ml Soln] 3 ml INHALATION RT-QID ampul.neb 08/25/18 [Rx] Lactobacillus Acidoph & Bulgar [Lactinex] 1 each PEG/G-TUBE BID packet 08/25/18 [Rx] Levothyroxine Sodium [Synthroid] 75 mcg PEG/G-TUBE DAILY@0630 tab 08/25/18 [Rx] Metoprolol Tartrate [Lopressor] 50 mg PO TID tab 08/25/18 [Rx] Follow up Appointment(s)/Referral(s): Xiomara Deleon MD [Primary Care Provider] - 1-2 days Activity/Diet/Wound Care/Special Instructions: Tube Feeds: Vital AF 1.2 at 49 Goal 49 mL per hour, Water 300 q 6 hours Current Vent Settings: AC 24, VC+, VT 500, 40%, Peep 5 Right sided PICC line Edwards cath in place, due to be changed 09/05/18 Fecal management system in place Consider EMG if Able to assess CBC and CMP in AM DX Anemia, BEHZAD Current Consults: Pulm, Cardio, Neuro, and Nephro Discharge Disposition: HOME SELF-CARE
[2018-08-25] MEDS ORDERED: METOPROLOL TARTRATE 50 MG TAB PO SCH (16:00)
[2018-08-25 16:10] VITALS: BP 121/96; PULSE 106; RESP 12
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
== END 2018-08-25 16:20 | DRG 3 ==
LOC: EC 18:17 → UNDOADMOB 20:51 → 3NMEDONC 20:51 → 2SICU 08-06 00:17
PROVIDERS: ADMIT Internal Medicine; ATTEND Internal Medicine
PROC: 0B9G8ZZ Drainage of Left Upper Lung Lobe, Via Natural or Artificial Opening Endoscopic (ICD-10-PCS; 2018-08-06)
PROC: 5A1955Z Respiratory Ventilation, Greater than 96 Consecutive Hours (ICD-10-PCS; 2018-08-06)
PROC: 0B9H8ZX Drainage of Lung Lingula, Via Natural or Artificial Opening Endoscopic, Diagnostic (ICD-10-PCS; 2018-08-06)
PROC: 0B978ZZ Drainage of Left Main Bronchus, Via Natural or Artificial Opening Endoscopic (ICD-10-PCS; 2018-08-06)
PROC: 0BH17EZ Insertion of Endotracheal Airway into Trachea, Via Natural or Artificial Opening (ICD-10-PCS; 2018-08-06)
PROC: 0D9670Z Drainage of Stomach with Drainage Device, Via Natural or Artificial Opening (ICD-10-PCS; 2018-08-06)
PROC: 05H633Z Insertion of Infusion Device into Left Subclavian Vein, Percutaneous Approach (ICD-10-PCS; 2018-08-06)
PROC: 5A12012 Performance of Cardiac Output, Single, Manual (ICD-10-PCS; 2018-08-06)
PROC: 3E0G76Z Introduction of Nutritional Substance into Upper GI, Via Natural or Artificial Opening (ICD-10-PCS; 2018-08-08)
PROC: 30243N1 Transfusion of Nonautologous Red Blood Cells into Central Vein, Percutaneous Approach (ICD-10-PCS; 2018-08-11)
PROC: 06HY33Z Insertion of Infusion Device into Lower Vein, Percutaneous Approach (ICD-10-PCS; 2018-08-11)
PROC: 5A1D70Z Performance of Urinary Filtration, Intermittent, Less than 6 Hours Per Day (ICD-10-PCS; 2018-08-11)
PROC: 0DH63UZ Insertion of Feeding Device into Stomach, Percutaneous Approach (ICD-10-PCS; 2018-08-12)
PROC: 0B110F4 Bypass Trachea to Cutaneous with Tracheostomy Device, Open Approach (ICD-10-PCS; principal; 2018-08-12 14:30)
PROC: 02HV33Z Insertion of Infusion Device into Superior Vena Cava, Percutaneous Approach (ICD-10-PCS; 2018-08-15)
PROC: 05HM33Z Insertion of Infusion Device into Right Internal Jugular Vein, Percutaneous Approach (ICD-10-PCS; 2018-08-16)
PROC: 06PYX3Z Removal of Infusion Device from Lower Vein, External Approach (ICD-10-PCS; 2018-08-16)
PROC: 05PY33Z Removal of Infusion Device from Upper Vein, Percutaneous Approach (ICD-10-PCS; 2018-08-24)
DX: A41.02 Sepsis due to Methicillin resistant Staphylococcus aureus (principal); J15.212 Pneumonia due to Methicillin resistant Staphylococcus aureus; B37.1 Pulmonary candidiasis; R65.21 Severe sepsis with septic shock; G92 Toxic encephalopathy; I46.8 Cardiac arrest due to other underlying condition; N17.0 Acute kidney failure with tubular necrosis; I50.33 Acute on chronic diastolic (congestive) heart failure; J96.01 Acute respiratory failure with hypoxia; J69.0 Pneumonitis due to inhalation of food and vomit; E43 Unspecified severe protein-calorie malnutrition; F05 Delirium due to known physiological condition; D62 Acute posthemorrhagic anemia; E87.4 Mixed disorder of acid-base balance; J44.0 Chronic obstructive pulmonary disease with (acute) lower respiratory infection; J44.1 Chronic obstructive pulmonary disease with (acute) exacerbation; G62.81 Critical illness polyneuropathy; Z99.11 Dependence on respirator [ventilator] status; B37.0 Candidal stomatitis; G93.1 Anoxic brain damage, not elsewhere classified; G72.81 Critical illness myopathy; K52.1 Toxic gastroenteritis and colitis; T17.890A Other foreign object in other parts of respiratory tract causing asphyxiation, initial encounter; I11.0 Hypertensive heart disease with heart failure; D69.6 Thrombocytopenia, unspecified; I27.20 Pulmonary hypertension, unspecified; I65.29 Occlusion and stenosis of unspecified carotid artery; E83.42 Hypomagnesemia; I07.1 Rheumatic tricuspid insufficiency; E83.39 Other disorders of phosphorus metabolism; I48.91 Unspecified atrial fibrillation; F03.90 Unspecified dementia, unspecified severity, without behavioral disturbance, psychotic disturbance, mood disturbance, and anxiety; Y95 Nosocomial condition; E87.6 Hypokalemia; S30.0XXA Contusion of lower back and pelvis, initial encounter; S20.212A Contusion of left front wall of thorax, initial encounter; I25.10 Atherosclerotic heart disease of native coronary artery without angina pectoris; G89.4 Chronic pain syndrome; M47.816 Spondylosis without myelopathy or radiculopathy, lumbar region; E03.9 Hypothyroidism, unspecified; E78.5 Hyperlipidemia, unspecified; K21.9 Gastro-esophageal reflux disease without esophagitis; I25.2 Old myocardial infarction; F41.9 Anxiety disorder, unspecified; F31.9 Bipolar disorder, unspecified; R29.6 Repeated falls; M54.9 Dorsalgia, unspecified; T50.2X5A Adverse effect of carbonic-anhydrase inhibitors, benzothiadiazides and other diuretics, initial encounter; T36.8X5A Adverse effect of other systemic antibiotics, initial encounter; T38.0X5A Adverse effect of glucocorticoids and synthetic analogues, initial encounter; Z79.51 Long term (current) use of inhaled steroids; Z79.02 Long term (current) use of antithrombotics/antiplatelets; Z79.890 Hormone replacement therapy; Z79.899 Other long term (current) drug therapy; Z91.81 History of falling; Z86.73 Personal history of transient ischemic attack (TIA), and cerebral infarction without residual deficits; Z86.718 Personal history of other venous thrombosis and embolism; Z87.820 Personal history of traumatic brain injury; Z87.01 Personal history of pneumonia (recurrent); Z87.81 Personal history of (healed) traumatic fracture; Z90.49 Acquired absence of other specified parts of digestive tract; Z95.5 Presence of coronary angioplasty implant and graft; Z90.710 Acquired absence of both cervix and uterus; Z86.14 Personal history of Methicillin resistant Staphylococcus aureus infection; Z98.890 Other specified postprocedural states; Z98.42 Cataract extraction status, left eye; Z98.41 Cataract extraction status, right eye; Z88.1 Allergy status to other antibiotic agents; Z88.2 Allergy status to sulfonamides; Z88.8 Allergy status to other drugs, medicaments and biological substances; Z87.891 Personal history of nicotine dependence; W19.XXXA Unspecified fall, initial encounter; Y92.009 Unspecified place in unspecified non-institutional (private) residence as the place of occurrence of the external cause
CPT/HCPCS: 36415; 36571; 36573; 36600; 43246; 51701; 70450; 71045; 71046; 71250; 76604; 76770; 76937; 77001; 80048; 80053; 80202; 80306; 81001; 82140; 82272; 82533; 82550; 82553; 82805; 83036; 83516; 83519; 83605; 83735; 83880; 84100; 84132; 84443; 84478; 84484; 85025; 85027; 85379; 85610; 85730; 86038; 86160; 86225; 86255; 86704; 86706; 86780; 86850; 86900; 86901; 86920; 87040; 87070; 87077; 87086; 87102; 87116; 87186; 87205; 87206; 87252; 87324; 87340; 87496; 87498; 87502; 87529; 87634; 87798; 88108; 88305; 90935; 93005; 93306; 93970; 94002; 94003; 94640; 94760; 95816; 96361; 96365; 99285

== ENCOUNTER 2018-10-27 18:07 | Inpatient (IN) | payer OTHER ==
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
[2018-10-27] MEDS ORDERED: SODIUM CHLORIDE 0.9% 1,000 ML IV STA (18:25)
[2018-10-27] MEDS ORDERED: IPRATROPIUM-ALBUTEROL 3 ML NEB INHALATION STA (18:25)
--- NOTE | 2018-10-27 19:45 | XR ---
EXAMINATION TYPE: XR chest 1V portable DATE OF EXAM: 10/27/2018 COMPARISON: 08/25/2018 HISTORY: Short of breath TECHNIQUE: Single frontal view of the chest is obtained. FINDINGS: Heart is enlarged. There is pulmonary edema. There is tracheostomy tube. There is slight b lunting of the costophrenic angles. IMPRESSION: Pulmonary edema probably due to congestive heart failure not significantly different gretta n last exam. Small bilateral pleural effusions.
[2018-10-27 20:00] LABS: ALT 46 U/L (9-52); AST 46 U/L (14-36); African American GFR (CKD) 19 (>60 ml/min/1.73 sqM); Albumin 3.5 g/dL (3.5-5.0); Alkaline Phosphatase 279 U/L (38-126); Anion Gap 12 mmol/L; Calcium 8.9 mg/dL (8.4-10.2); Carbon Dioxide 22 mmol/L (22-30); Chloride 105 mmol/L (98-107); Creatine Kinase <20 U/L (30-135); Glucose 107 mg/dL (74-99); Magnesium 2.4 mg/dL (1.6-2.3); Potassium 5.1 mmol/L (3.5-5.1); Sodium 139 mmol/L (137-145); Total Bilirubin 0.6 mg/dL (0.2-1.3)
[2018-10-27 20:04] LABS: INR 2.5 (<1.2)
[2018-10-27 20:05] LABS: Blood Urea Nitrogen 103 mg/dL (7-17); Partial Thromboplastin Time 38.7 sec (22.0-30.0); Prothrombin Time 24.5 sec (9.0-12.0)
[2018-10-27 20:18] LABS: Anisocytosis Moderate; Basophils % (A) 0 %; Eosinophils # (A) 0.2 k/uL (0-0.7); Eosinophils % (A) 2 %; HCT 26.1 % (34.0-46.0); HGB 8.2 gm/dL (11.4-16.0); Hypochromasia Moderate; Lymphocytes # (A) 1.9 k/uL (1.0-4.8); Lymphocytes % (A) 13 %; MCH 29.6 pg (25.0-35.0); MCHC 31.4 g/dL (31.0-37.0); MCV 94.4 fL (80.0-100.0); Macrocytosis Slight; Mean Platelet Volume 8.1; Monocytes # (A) 0.6 k/uL (0-1.0); Monocytes % (A) 4 %; Neutrophils # (A) 11.6 k/uL (1.3-7.7); Neutrophils % (A) 80 %; Poikilocytosis Moderate; RBC 2.76 m/uL (3.80-5.40); RDW 20.3 % (11.5-15.5); WBC 14.6 k/uL (3.8-10.6)
[2018-10-27 20:22] LABS: Platelet Count 251 k/uL (150-450)
[2018-10-27] MEDS ORDERED: FUROSEMIDE 10 MG/ML 4 ML VIAL IV SCH (21:00)
[2018-10-27] MEDS ORDERED: ACETAMINOPHEN TAB 325 MG TAB PO PRN (23:29)
[2018-10-27] MEDS ORDERED: NITROGLYCERIN SL TABS 0.4 MG TAB SUBLINGUAL PRN (23:29)
[2018-10-27] MEDS ORDERED: ACETYLCYSTEINE 800 MG/4 ML VIAL INHALATION PRN (23:29)
[2018-10-27] MEDS ORDERED: ALPRAZolam 0.5 MG TAB PO PRN (23:29)
[2018-10-27] MEDS ORDERED: ONDANSETRON ODT 4 MG TAB PO PRN (23:29)
[2018-10-27] MEDS ORDERED: HYDROcodone/APAP 5-325MG 1 EACH TAB PO PRN (23:29)
[2018-10-27] MEDS ORDERED: MONTELUKAST 10 MG TAB PO SCH (23:45)
[2018-10-27] MEDS ORDERED: QUEtiapine 100 MG TAB PO SCH (23:45)
[2018-10-27] MEDS ORDERED: FUROSEMIDE 10 MG/ML 10 ML VIAL IV STA (23:50)
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
--- NOTE | 2018-10-28 00:15 | P.HPADDEND ---
H&P Addendum H&P Addendum Date: 10/28/18 Advanced Care Planning Active diagnoses: Acute on chronic hypoxic respiratory failure trach dependent. Bedridden secondary to debility. Recent PA cardiopulmonary arrest. COPD Diastolic CHF Paroxysmal A. fib Discussion: Person(s) present and participating in discussion: The patient, myself, and patient daughter and granddaughter Summary: Given the patient quality of life and recent episode of PA cardiopulmonary arrest along with being trach dependent. Advanced directives were discussed with the family who verbalized understanding of patient current medical problems and the complexity with guarded outcomes and prognosis. Patient expressed her wishes along with family in pursuing CPR and resuscitation if needed, along with full medical measures that are appropriate and necessary to help sustain her life and attempt to correct any abnormalities and to continue to treat her current medical problems. Time spent: Total time spent face to face in education and discussion directly related to advanced care plannin minutes
[2018-10-28] MEDS: METOPROLOL TARTRATE 50 MG TAB PO SCH ×3 (00:47→17:34)
[2018-10-28] MEDS: PANTOPRAZOLE 40 MG TABLET PO SCH ×3 (00:57→21:18)
[2018-10-28] MEDS ORDERED: LEVOTHYROXINE 75 MCG TAB PO SCH (06:30)
[2018-10-28 06:32] LABS: Appearance,Urine Cloudy (Clear); Bacteria,Urine Moderate /hpf; Bilirubin,Urine Negative (Negative); Blood,Urine Large (Negative); Color,Urine Yellow; Glucose,Urine (UA) Negative (Negative); Ketones,Urine Negative (Negative); Leukocyte Esterase,Urine Large (Negative); Nitrite,Urine Negative (Negative); Protein,Urine 1+ (Negative); RBC,Urine >182 /hpf (0-5); Squamous Epithelial Cell,Urine 1 /hpf (0-4); Urobilinogen,Urine <2.0 mg/dL (<2.0)
[2018-10-28 07:37] LABS: Glucose,Whole Blood 102 mg/dL (75-99)
[2018-10-28] MEDS: INSULIN ASPART (NovoLOG) 100 UNIT/ML VIAL SQ SCH ×4 (07:41→21:32)
[2018-10-28] MEDS: IPRATROPIUM-ALBUTEROL 3 ML NEB INHALATION PRN ×3 (07:45→15:23)
[2018-10-28 08:08] LABS: Anisocytosis Moderate; Basophils % (A) 0 %; Eosinophils # (A) 0.4 k/uL (0-0.7); Eosinophils % (A) 3 %; HCT 26.3 % (34.0-46.0); HGB 7.9 gm/dL (11.4-16.0); Hypochromasia Moderate; Lymphocytes % (A) 15 %; MCH 29.2 pg (25.0-35.0); MCHC 30.1 g/dL (31.0-37.0); MCV 96.7 fL (80.0-100.0); Macrocytosis Slight; Mean Platelet Volume 8.1; Monocytes # (A) 0.6 k/uL (0-1.0); Monocytes % (A) 5 %; Neutrophils # (A) 9.4 k/uL (1.3-7.7); Neutrophils % (A) 74 %; Platelet Count 248 k/uL (150-450); Poikilocytosis Moderate; RBC 2.72 m/uL (3.80-5.40); RDW 20.3 % (11.5-15.5); WBC 12.7 k/uL (3.8-10.6)
--- NOTE | 2018-10-28 08:16 | XR ---
EXAMINATION TYPE: XR chest 1V DATE OF EXAM: 10/28/2018 COMPARISON: 10/27/2018 HISTORY: Hypoxemia. TECHNIQUE: Single frontal view of the chest is obtained. FINDINGS: There is an enlarged cardiomediastinal silhouette and interstitial prominence throughout. There is improved aeration of the lungs overall. Very trace pleural effusions remain. No sizable pneu mothorax. No acute osseous abnormality is seen. Rounded density overlies the aortic arch and may be e xternal iliac to the patient's midline thoracostomy. IMPRESSION: Overall improved aeration of the lungs with persistent moderate interstitial edema and m arked cardiomegaly with trace pleural effusions all likely on the basis of congestive heart failure.
[2018-10-28 08:43] LABS: Albumin 3.4 g/dL (3.5-5.0); Calcium 9.1 mg/dL (8.4-10.2); Potassium 4.8 mmol/L (3.5-5.1); Total Bilirubin 0.7 mg/dL (0.2-1.3)
[2018-10-28] MEDS ORDERED: ATORVASTATIN 20 MG TAB PO SCH (09:00)
[2018-10-28] MEDS ORDERED: amLODIPine 2.5 MG TAB PO SCH (09:00)
[2018-10-28] MEDS ORDERED: FOLIC ACID 1 MG TAB PO SCH (09:00)
[2018-10-28] MEDS ORDERED: SERTRALINE 50 MG TAB PO SCH (09:00)
[2018-10-28] MEDS ORDERED: AMIODARONE 200 MG TAB PO SCH (09:00)
[2018-10-28] MEDS ORDERED: CLOPIDOGREL 75 MG TAB PO SCH (09:00)
[2018-10-28] MEDS ORDERED: QUEtiapine 25 MG TAB PO SCH (09:00)
[2018-10-28] MEDS ORDERED: CHOLESTYRAMINE (WITH SUGAR) 4 GM PACKET PO SCH (09:00)
[2018-10-28] MEDS ORDERED: NON-FORMULARY DRUG (Ensure 1 CAN) PO SCH (09:00)
[2018-10-28 09:28] LABS: INR 2.4 (<1.2); Prothrombin Time 23.3 sec (9.0-12.0)
[2018-10-28] MEDS: FLUTICASONE 50MCG/SPRAY NASAL 16GM EA NOSTRIL SCH (11:50)
--- NOTE | 2018-10-28 12:12 | P.PN ---
Subjective Progress Note Date: 10/28/18 Patient seen and examined at bedside, tracheostomy dependent on 10 L via trach at baseline, [facility]. Chest x-ray showed overall improved aeration with persistent moderate interstitial edema and marked cardiomegaly with trace pleural effusions. Creatinine at 3.14 today. Urinalysis suggestive of a UTI cultures are pending. Objective - Vital Signs Vital signs: Vital Signs Temp 97.7 F 10/28/18 07:40 Pulse 74 10/28/18 11:25 Resp 15 10/28/18 07:40 BP 108/70 10/28/18 07:40 Pulse Ox 93 L 10/28/18 07:40 Intake & Output 10/27/18 10/28/18 10/28/18 18:59 06:59 18:59 Intake Total 200 0 Output Total 1000 Balance -800 0 Weight 140 kg 77 kg Intake: Intake, IV Titration 200 Amount Sodium Chloride 0.9% 1, 200 000 ml @ 100 mls/hr IV . Q10H STA Rx#:[id number] Oral 0 Output: Urine 1000 Other: Voiding Method Indwelling Catheter Indwelling Catheter # Bowel Movements 1 - Exam Constitutional: No acute distress, very little speaking patient trach dependent Eyes: Anicteric sclerae, moist conjunctiva, no lid-lag, PERRLA ENMT: NC/AT,Oropharynx clear, no erythema, exudates Neck:Supple, FROM, no masses, or JVD, No carotid bruits; No thyromegaly Lungs: Diminished in the bases rhonchi scattered right greater than left, on 10 L via trach Cardiovascular: Heart regular in rate and rhythm, No murmurs, gallops, or rubs no peripheral edema Abdominal: Soft Nontender, nom distended, no guarding, no rebound or rigidity, Normoactive bowel sounds No hepatomegaly, No splenomegaly, No palpable mass No abdominal wall hernia noted Skin: Bruising of her bilateral arms Extremities:No digital cyanosis No clubbing, Pedal pulses intact and symm etrical Radial pulses intact and symmetrical Normal gait and station, No calf tenderness Psychiatric: Alert and oriented to person, place and time, Appropriate affect Intact judgement Neuro: Muscles Strength 5/5 in all 4 extremities, Sensation to light touch grossly present throughout, Cranial nerves II-XII grossly intact. No focal sensory deficits - Labs CBC & Chem 7: 10/28/18 07:40 10/28/18 07:40 Labs: Abnormal Lab Results - Last 24 Hours (Table) 10/27/18 10/27/18 10/27/18 Range/Units 19:07 19:07 19:07 WBC 14.6 H (3.8-10.6) k/uL RBC 2.76 L (3.80-5.40) m/uL Hgb 8.2 L (11.4-16.0) gm/dL Hct 26.1 L (34.0-46.0) % MCHC (31.0-37.0) g/dL RDW 20.3 H (11.5-15.5) % Neutrophils # 11.6 H (1.3-7.7) k/uL PT 24.5 H (9.0-12.0) sec INR 2.5 H (<1.2) APTT 38.7 H (22.0-30.0) sec Carbon Dioxide (22-30) mmol/L BUN 103 H* (7-17) mg/dL Creatinine 2.93 H (0.52-1.04) mg/dL Glucose 107 H (74-99) mg/dL POC Glucose (mg/dL) (75-99) mg/dL Magnesium 2.4 H (1.6-2.3) mg/dL AST 46 H (14-36) U/L Alkaline Phosphatase 279 H (38-126) U/L Creatine Kinase <20 L (30-135) U/L Albumin (3.5-5.0) g/dL Urine Appearance (Clear) Urine Protein (Negative) Urine Blood (Negative) Ur Leukocyte Esterase (Negative) Urine RBC (0-5) /hpf Urine WBC (0-5) /hpf Urine WBC Clumps (None) /hpf Urine Bacteria (None) /hpf 10/28/18 10/28/18 10/28/18 Range/Units 05:30 07:36 07:40 WBC 12.7 H (3.8-10.6) k/uL RBC 2.72 L (3.80-5.40) m/uL Hgb 7.9 L (11.4-16.0) gm/dL Hct 26.3 L (34.0-46.0) % MCHC 30.1 L (31.0-37.0) g/dL RDW 20.3 H (11.5-15.5) % Neutrophils # 9.4 H (1.3-7.7) k/uL PT (9.0-12.0) sec INR (<1.2) APTT (22.0-30.0) sec Carbon Dioxide (22-30) mmol/L BUN (7-17) mg/dL Creatinine (0.52-1.04) mg/dL Glucose (74-99) mg/dL POC Glucose (mg/dL) 102 H (75-99) mg/dL Magnesium (1.6-2.3) mg/dL AST (14-36) U/L Alkaline Phosphatase (38-126) U/L Creatine Kinase (30-135) U/L Albumin (3.5-5.0) g/dL Urine Appearance Cloudy H (Clear) Urine Protein 1+ H (Negative) Urine Blood Large H (Negative) Ur Leukocyte Esterase Large H (Negative) Urine RBC >182 H (0-5) /hpf Urine WBC 164 H (0-5) /hpf Urine WBC Clumps Moderate H (None) /hpf Urine Bacteria Moderate H (None) /hpf 10/28/18 10/28/18 Range/Units 07:40 08:44 WBC (3.8-10.6) k/uL RBC (3.80-5.40) m/uL Hgb (11.4-16.0) gm/dL Hct (34.0-46.0) % MCHC (31.0-37.0) g/dL RDW (11.5-15.5) % Neutrophils # (1.3-7.7) k/uL PT 23.3 H (9.0-12.0) sec INR 2.4 H (<1.2) APTT (22.0-30.0) sec Carbon Dioxide 20 L (22-30) mmol/L BUN 97 H (7-17) mg/dL Creatinine 3.14 H (0.52-1.04) mg/dL Glucose (74-99) mg/dL POC Glucose (mg/dL) (75-99) mg/dL Magnesium (1.6-2.3) mg/dL AST 46 H (14-36) U/L Alkaline Phosphatase 245 H (38-126) U/L Creatine Kinase (30-135) U/L Albumin 3.4 L (3.5-5.0) g/dL Urine Appearance (Clear) Urine Protein (Negative) Urine Blood (Negative) Ur Leukocyte Esterase (Negative) Urine RBC (0-5) /hpf Urine WBC (0-5) /hpf Urine WBC Clumps (None) /hpf Urine Bacteria (None) /hpf Microbiology - Last 24 Hours (Table) 10/28/18 05:30 Urine Culture - Preliminary Urine,Voided 10/28/18 05:05 Sputum Culture - Preliminary Sputum Assessment and Plan (1) Acute on chronic respiratory failure with hypoxia Narrative/Plan: * Likely multifactorial secondary to the running out of oxygen superimposed on diastolic CHF exacerbation * Chest x-ray suggesting persistent moderate interstitial edema * Patient trach dependent continue supplemental oxygen at 10 L and continue breathing treatments * Pulmonary is been consulted for further recommendations Current Visit: Yes Status: Acute Code(s): J96.21 - ACUTE AND CHRONIC RESPIRATORY FAILURE WITH HYPOXIA SNOMED Code(s): 99796239 (2) Acute diastolic (congestive) heart failure Narrative/Plan: * previous echocardiogram 08/06/18 indicating a low normal EF 50-55% with moderate to severe TR and moderate to severe pulmonary hypertension * We'll continue with Lasix 40 mg IV twice a day Current Visit: Yes Status: Acute Code(s): I50.31 - ACUTE DIASTOLIC (CONGESTIVE) HEART FAILURE SNOMED Code(s): 598745715 (3) Acute kidney injury superimposed on chronic kidney disease Narrative/Plan: * A creatinine up to 3.2 today * We'll consult renal for further recommendations Current Visit: Yes Status: Acute Code(s): N17.9 - ACUTE KIDNEY FAILURE, UNSPECIFIED; N18.9 - CHRONIC KIDNEY DISEASE, UNSPECIFIED SNOMED Code(s): 00953763 (4) Sepsis Narrative/Plan: * Hemodynamically stable afebrile mild leukocytosis 12.7 with positive urinalysis with cultures pending * Continue antibiotics Rocephin Current Visit: Yes Status: Acute Code(s): A41.9 - SEPSIS, UNSPECIFIED ORGANISM SNOMED Code(s): 40762654 (5) Urinary tract infection Narrative/Plan: * Patient will be started on Rocephin pending urine culture sensitivity Current Visit: Yes Status: Acute Code(s): N39.0 - URINARY TRACT INFECTION, SITE NOT SPECIFIED SNOMED Code(s): 94959949 (6) Paroxysmal A-fib Narrative/Plan: * The patient continued on amiodarone and metoprolol * currently therapeutic with anticoagulation on Coumadin Current Visit: Yes Status: Acute Code(s): I48.0 - PAROXYSMAL ATRIAL FIBRILLATION SNOMED Code(s): 191195587 Plan: * Disposition - follow-up consultants recommendations * 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
[2018-10-28 12:15] LABS: Glucose,Whole Blood 94 mg/dL (75-99)
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
[2018-10-28] MEDS ORDERED: DARBEPOETIN ALFA 40 MCG/0.4 ML SYRINGE SQ SCH (16:00)
[2018-10-28] MEDS ORDERED: ACETAMINOPHEN TAB 325 MG TAB PEG/G-TUBE PRN (16:36)
[2018-10-28] MEDS ORDERED: HYDROcodone/APAP 5-325MG 1 EACH TAB PEG/G-TUBE PRN (16:37)
[2018-10-28] MEDS ORDERED: ONDANSETRON ODT 4 MG TAB PEG/G-TUBE PRN (16:37)
[2018-10-28 16:54] LABS: Glucose,Whole Blood 120 mg/dL (75-99)
[2018-10-28] MEDS: METOPROLOL TARTRATE 50 MG TAB PEG/G-TUBE SCH (17:35)
[2018-10-28] MEDS: ALPRAZolam 0.5 MG TAB PEG/G-TUBE PRN (17:35)
[2018-10-28] MEDS ORDERED: WARFARIN 2.5 MG TAB PO ONE (18:00)
[2018-10-28] MEDS ORDERED: WARFARIN 2.5 MG TAB PEG/G-TUBE ONE (18:00)
[2018-10-28] MEDS: FUROSEMIDE 10 MG/ML 4 ML VIAL IV SCH (21:14)
[2018-10-28] MEDS: CHOLESTYRAMINE (WITH SUGAR) 4 GM PACKET PEG/G-TUBE SCH (21:14)
[2018-10-28] MEDS: QUEtiapine 100 MG TAB PEG/G-TUBE SCH (21:14)
[2018-10-28] MEDS: MONTELUKAST 10 MG TAB PEG/G-TUBE SCH (21:15)
[2018-10-28 21:32] LABS: Glucose,Whole Blood 125 mg/dL (75-99)
[2018-10-28 21:45] LABS: Iron Saturation 14.57 (12.00-45.00)
[2018-10-28] MEDS: PANTOPRAZOLE 40 MG/10 ML VIAL IVP SCH (22:19)
[2018-10-28] MEDS: IPRATROPIUM-ALBUTEROL 3 ML NEB INHALATION SCH (23:05)
[2018-10-29] MEDS: ALPRAZolam 0.5 MG TAB PEG/G-TUBE PRN ×2 (00:08→20:29)
[2018-10-29] MEDS: METOPROLOL TARTRATE 50 MG TAB PEG/G-TUBE SCH ×3 (00:08→16:11)
[2018-10-29] MEDS: IPRATROPIUM-ALBUTEROL 3 ML NEB INHALATION SCH ×6 (03:35→23:11)
[2018-10-29] MEDS: LEVOTHYROXINE 75 MCG TAB PEG/G-TUBE SCH (05:19)
[2018-10-29 07:07] LABS: Glucose,Whole Blood 133 mg/dL (75-99)
[2018-10-29 08:44] LABS: Prothrombin Time 28.7 sec (9.0-12.0)
[2018-10-29] MEDS: PANTOPRAZOLE 40 MG/10 ML VIAL IVP SCH ×2 (09:09→20:23)
[2018-10-29] MEDS: QUEtiapine 25 MG TAB PEG/G-TUBE SCH (09:10)
[2018-10-29] MEDS: FUROSEMIDE 10 MG/ML 4 ML VIAL IV SCH (09:11)
[2018-10-29] MEDS: FOLIC ACID 1 MG TAB PEG/G-TUBE SCH (09:11)
[2018-10-29] MEDS: CLOPIDOGREL 75 MG TAB PEG/G-TUBE SCH (09:11)
[2018-10-29] MEDS: amLODIPine 2.5 MG TAB PEG/G-TUBE SCH (09:11)
[2018-10-29] MEDS: ATORVASTATIN 20 MG TAB PEG/G-TUBE SCH (09:11)
[2018-10-29] MEDS: AMIODARONE 200 MG TAB PEG/G-TUBE SCH (09:12)
[2018-10-29] MEDS: INSULIN ASPART (NovoLOG) 100 UNIT/ML VIAL SQ SCH ×4 (09:12→23:51)
[2018-10-29] MEDS: FLUTICASONE 50MCG/SPRAY NASAL 16GM EA NOSTRIL SCH (09:13)
[2018-10-29] MEDS: SERTRALINE 50 MG TAB PEG/G-TUBE SCH (09:13)
--- NOTE | 2018-10-29 10:20 | P.PN ---
Subjective Progress Note Date: 10/29/18 Seen and examined for the follow-up of acute kidney injury. As per the family at bedside slightly confused. No nausea vomiting diarrhea. No new labs today. Objective - Vital Signs Vital signs: Vital Signs Temp 98.2 F 10/29/18 05:09 Pulse 72 10/29/18 07:51 Resp 18 10/29/18 05:09 BP 114/74 10/29/18 05:09 Pulse Ox 97 10/29/18 05:09 Intake & Output 10/28/18 10/29/18 10/29/18 18:59 06:59 18:59 Intake Total 99 280 Output Total 1150 Balance 99 -870 Weight 77 kg 77 kg Intake: Oral 0 Tube Feeding 99 280 Output: Urine 1150 Other: Voiding Method Indwelling Catheter Indwelling Catheter Indwelling Catheter - Exam No acute distress Lungs clear Tracheostomy acute Abdomen soft acute Edwards catheter No edema - Labs CBC & Chem 7: 10/28/18 07:40 10/28/18 07:40 Labs: Abnormal Lab Results - Last 24 Hours (Table) 10/28/18 10/28/18 10/28/18 Range/Units 07:40 16:52 21:30 PT (9.0-12.0) sec INR (<1.2) POC Glucose (mg/dL) 120 H 125 H (75-99) mg/dL Iron 44 L (50-170) ug/dL Ferritin 369.5 H (10.0-291.0) ng/mL 10/29/18 10/29/18 Range/Units 07:04 07:52 PT 28.7 H (9.0-12.0) sec INR 3.0 H (<1.2) POC Glucose (mg/dL) 133 H (75-99) mg/dL Iron (50-170) ug/dL Ferritin (10.0-291.0) ng/mL Microbiology - Last 24 Hours (Table) 10/27/18 01:00 Blood Culture - Preliminary Blood No Growth after 24 hours 10/28/18 00:48 Blood Culture - Preliminary Blood No Growth after 24 hours 10/28/18 05:05 Gram Stain - Preliminary Sputum Sputum Culture - Preliminary 10/28/18 05:30 Urine Culture - Preliminary Urine,Voided Assessment and Plan Assessment: #1 acute kidney injury suspect septic ATN. Rule out prerenal process from over diuresis. #2 suspect chronic kidney disease with a baseline creatinine of 1.8-2.0 MG per DL in August 2018. #3 metabolic acidosis from acute kidney injury #4 trach and PEG tube dependent. #5 low normal blood pressures #6 anemia Plan: #1 strict ins and outs. Repeat labs today #2 hold Lasix today. #3 repeat chest x-ray and electrolytes tomorrow. #4 avoid nephrotoxic agents and hypotensive episodes.
[2018-10-29 12:01] LABS: Glucose,Whole Blood 128 mg/dL (75-99)
--- NOTE | 2018-10-29 12:02 | P.PN ---
Subjective Progress Note Date: 10/29/18 Principal diagnosis: low oxygen levels Patient is a 63-year-old female with a complicated past medical history. She was here several months ago with MRSA sepsis with multiorgan failure and cardiopulmonary arrest requiring intubation, and trach, and BEHZAD requiring HD. She's been residing at [facility] where she was treated for C. diff. She was being transported between [facility] and [facility]. She developed an episode of hypoxemia, likely related to mucous plugging. EMS then ran out of oxygen she was subsequently brought here and admitted. Her vital signs were within normal limits on arrival. Initial laboratory analysis showed white blood cell count of 14.6, hemoglobin 8.2, platelet count 251, BUN 103, and creatinine 2.93. Urinalysis was consistent with urinary tract infection the likely represents chronic colonization. Chest x-ray showed persistent moderate interstitial edema and marked cardiomegaly. Sputum culture is growing multi organisms. Patient has been seen by pulmonary, nephrology, and cardiology. Patient's was present on 10/28 and felt that patient was at baseline and could be released to [facility]. Patient seen and examined at bedside. She denies any chest pain, shortness of breath. She does have some abdominal pain but will not likely need to examine her abdomen or palpate her abdomen. She tells me to leave her alone. No family present at bedside. Objective - Vital Signs Vital signs: Vital Signs Temp 97.8 F 10/29/18 10:47 Pulse 72 10/29/18 11:48 Resp 16 10/29/18 10:47 BP 120/80 10/29/18 10:47 Pulse Ox 93 L 10/29/18 10:47 Intake & Output 10/28/18 10/29/18 10/29/18 18:59 06:59 18:59 Intake Total 99 280 Output Total 1150 Balance 99 -870 Weight 77 kg 77 kg Intake: Oral 0 Tube Feeding 99 280 Output: Urine 1150 Other: Voiding Method Indwelling Catheter Indwelling Catheter Indwelling Catheter - Exam General: Ill-appearing, no distress, appears older than stated age, normal weight Derm: Multiple areas of ecchymosis, warm, dry Head: atraumatic, normocephalic, symmetric Eyes: EOMI, no lid lag, anicteric sclera, pupils equal round reactive to light ENT: Nose and ears atraumatic, no thrush, no pharyngeal erythema Neck:+ trach in place with speaking valve, supple Mouth: no lip lesion, mucus membranes dry Cardiovascular: S1S2 reg, no murmur, positive posterior tibial pulse bilateral, no edema, capillary refill less than 2 seconds Lungs: CTA bilateral, no rhonchi, no rales , no accessory muscle use Abdominal: soft, nontender to palpation, no guarding, no appreciable organomegaly, normal bowel sounds PEG tube in place, Edwards catheter in place Psych: Alert, oriented, appears angry - Labs CBC & Chem 7: 10/28/18 07:40 10/29/18 07:52 Labs: Abnormal Lab Results - Last 24 Hours (Table) 10/28/18 10/28/18 10/28/18 Range/Units 07:40 16:52 21:30 PT (9.0-12.0) sec INR (<1.2) BUN (7-17) mg/dL Creatinine (0.52-1.04) mg/dL Glucose (74-99) mg/dL POC Glucose (mg/dL) 120 H 125 H (75-99) mg/dL Iron 44 L (50-170) ug/dL Ferritin 369.5 H (10.0-291.0) ng/mL 10/29/18 10/29/18 10/29/18 Range/Units 07:04 07:52 07:52 PT 28.7 H (9.0-12.0) sec INR 3.0 H (<1.2) BUN 102 H* (7-17) mg/dL Creatinine 2.94 H (0.52-1.04) mg/dL Glucose 131 H (74-99) mg/dL POC Glucose (mg/dL) 133 H (75-99) mg/dL Iron (50-170) ug/dL Ferritin (10.0-291.0) ng/mL 10/29/18 Range/Units 11:59 PT (9.0-12.0) sec INR (<1.2) BUN (7-17) mg/dL Creatinine (0.52-1.04) mg/dL Glucose (74-99) mg/dL POC Glucose (mg/dL) 128 H (75-99) mg/dL Iron (50-170) ug/dL Ferritin (10.0-291.0) ng/mL Microbiology - Last 24 Hours (Table) 10/27/18 01:00 Blood Culture - Preliminary Blood No Growth after 24 hours 10/28/18 00:48 Blood Culture - Preliminary Blood No Growth after 24 hours 10/28/18 05:05 Gram Stain - Preliminary Sputum Sputum Culture - Preliminary 10/28/18 05:30 Urine Culture - Preliminary Urine,Voided Assessment and Plan Assessment: Acute on chronic hypoxic respiratory failure, trach dependent -Suspect secondary to mucous plugging -Continue with trach care -Continue with Mucomyst, chest physiotherapy, supplemental oxygen as needed, and bronchodilators Acute exacerbation of diastolic congestive heart failure -Continue with amlodipine, Lopressor, atorvastatin, and amiodarone -Lasix on hold today per nephro -Continue to monitor fluid overload CKD, suspect chronic after ATN - nephro recs - follow Cr - avoid additional nephrotoxic agents Paroxysmal atrial fibrillation on Coumadin - monitor HR - continue metoprolol - coumadin per pharmacy Chronic conditions: Leukocytosis Chronic anemia status post 2 units of blood transfusion in August 2018 Trach dependent Status post aborted sudden cardiac PEG tube on tube feedings-Nepro 45 mL/h Recent history of C. diff completed course of vancomycin on 10/26/18 Hypothyroidism Hypertension COPD without exacerbation Plan: Hope to discharge to [facility] when on 10/31/18 DVT prophylaxis: coumadin Discussed with: patient, nursing Anticipated discharge date: 2-[address]: [facility] A total of 45 minutes was spent on the care of this complex patient more than 50% of the time was spent in counseling and care coordination.
[2018-10-29] MEDS: CHOLESTYRAMINE (WITH SUGAR) 4 GM PACKET PEG/G-TUBE SCH ×2 (12:21→20:29)
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
[2018-10-29 16:46] LABS: Glucose,Whole Blood 154 mg/dL (75-99)
[2018-10-29] MEDS ORDERED: WARFARIN 1 MG TAB PEG/G-TUBE ONE (18:00)
[2018-10-29] MEDS: QUEtiapine 100 MG TAB PEG/G-TUBE SCH (20:29)
[2018-10-29] MEDS: MONTELUKAST 10 MG TAB PEG/G-TUBE SCH (20:29)
[2018-10-29 22:52] LABS: Glucose,Whole Blood 120 mg/dL (75-99)
[2018-10-30] MEDS: METOPROLOL TARTRATE 50 MG TAB PEG/G-TUBE SCH ×3 (00:51→23:31)
[2018-10-30] MEDS: IPRATROPIUM-ALBUTEROL 3 ML NEB INHALATION SCH ×7 (03:02→23:51)
[2018-10-30] MEDS: LEVOTHYROXINE 75 MCG TAB PEG/G-TUBE SCH (05:16)
--- NOTE | 2018-10-30 07:28 | XR ---
EXAMINATION TYPE: XR chest 1V DATE OF EXAM: 10/30/2018 HISTORY: sob. REFERENCE: Previous study dated 10/28/2018. FINDINGS: A tracheostomy tube is in place. Its tip overlies the tracheal air column in this single fr ontal projection. The heart is enlarged. There is worsening interstitial lung disease. There are small bilateral effusi ons. IMPRESSION: WORSENING CHANGES OF CONGESTIVE HEART FAILURE.
[2018-10-30] MEDS: IPRATROPIUM-ALBUTEROL 3 ML NEB INHALATION PRN (07:32)
[2018-10-30 07:55] LABS: Glucose,Whole Blood 146 mg/dL (75-99)
[2018-10-30 08:32] LABS: Anisocytosis Moderate; HCT 27.7 % (34.0-46.0); HGB 8.7 gm/dL (11.4-16.0); Hypochromasia Marked; MCH 30.9 pg (25.0-35.0); MCHC 31.6 g/dL (31.0-37.0); MCV 97.8 fL (80.0-100.0); Macrocytosis Moderate; Mean Platelet Volume 7.7; Platelet Count 340 k/uL (150-450); Poikilocytosis Moderate; RBC 2.83 m/uL (3.80-5.40); RDW 20.6 % (11.5-15.5); WBC 17.7 k/uL (3.8-10.6)
[2018-10-30 08:36] LABS: INR 2.2 (<1.2); Prothrombin Time 21.4 sec (9.0-12.0)
[2018-10-30 08:44] LABS: Albumin 3.7 g/dL (3.5-5.0); Calcium 9.4 mg/dL (8.4-10.2); Potassium 3.7 mmol/L (3.5-5.1); Total Bilirubin 0.6 mg/dL (0.2-1.3)
[2018-10-30] MEDS: PANTOPRAZOLE 40 MG/10 ML VIAL IVP SCH ×2 (09:39→23:39)
[2018-10-30] MEDS: FOLIC ACID 1 MG TAB PEG/G-TUBE SCH (09:39)
[2018-10-30] MEDS: CLOPIDOGREL 75 MG TAB PEG/G-TUBE SCH (09:39)
[2018-10-30] MEDS: SERTRALINE 50 MG TAB PEG/G-TUBE SCH (09:39)
[2018-10-30] MEDS: AMIODARONE 200 MG TAB PEG/G-TUBE SCH (09:39)
[2018-10-30] MEDS: amLODIPine 2.5 MG TAB PEG/G-TUBE SCH (09:39)
[2018-10-30] MEDS: CHOLESTYRAMINE (WITH SUGAR) 4 GM PACKET PEG/G-TUBE SCH ×2 (09:40→23:39)
[2018-10-30] MEDS: QUEtiapine 25 MG TAB PEG/G-TUBE SCH (09:40)
[2018-10-30] MEDS: ATORVASTATIN 20 MG TAB PEG/G-TUBE SCH (09:40)
[2018-10-30] MEDS: FLUTICASONE 50MCG/SPRAY NASAL 16GM EA NOSTRIL SCH (09:40)
[2018-10-30] MEDS ORDERED: VANCOMYCIN 1,500 MG in SODIUM CHLORIDE 0.9% 250 ML IVPB STA (10:05)
[2018-10-30] MEDS ORDERED: VANCOMYCIN IV PER PHARMACY 1 EACH MISC MISCELLANE PRN (10:05)
[2018-10-30] MEDS: INSULIN ASPART (NovoLOG) 100 UNIT/ML VIAL SQ SCH ×4 (10:20→23:41)
--- NOTE | 2018-10-30 11:01 | P.PN ---
Subjective Progress Note Date: 10/30/18 Seen and examined for the follow-up of acute kidney injury. No nausea vomiting or diarrhea. Objective - Vital Signs Vital signs: Vital Signs Temp 98.3 F 10/30/18 07:00 Pulse 74 10/30/18 07:45 Resp 12 10/30/18 07:00 BP 152/87 10/30/18 07:00 Pulse Ox 97 10/30/18 07:33 Intake & Output 10/29/18 10/30/18 10/30/18 18:59 06:59 18:59 Intake Total 40 120 Output Total 500 1200 Balance 40 -380 -1200 Weight 71.5 kg Intake: Tube Feeding 40 120 Output: Urine 500 1200 Other: Voiding Method Indwelling Catheter Indwelling Catheter # Bowel Movements 1 - Exam No acute distress Lungs clear Tracheostomy acute Abdomen soft acute Edwards catheter No edema - Labs CBC & Chem 7: 10/30/18 08:08 10/30/18 08:08 Labs: Abnormal Lab Results - Last 24 Hours (Table) 10/29/18 10/29/18 10/29/18 Range/Units 07:52 11:59 16:43 WBC (3.8-10.6) k/uL RBC (3.80-5.40) m/uL Hgb (11.4-16.0) gm/dL Hct (34.0-46.0) % RDW (11.5-15.5) % PT (9.0-12.0) sec INR (<1.2) BUN 102 H* (7-17) mg/dL Creatinine 2.94 H (0.52-1.04) mg/dL Glucose 131 H (74-99) mg/dL POC Glucose (mg/dL) 128 H 154 H (75-99) mg/dL AST (14-36) U/L Alkaline Phosphatase (38-126) U/L Total Protein (6.3-8.2) g/dL 10/29/18 10/30/18 10/30/18 Range/Units 22:42 07:44 08:08 WBC (3.8-10.6) k/uL RBC (3.80-5.40) m/uL Hgb (11.4-16.0) gm/dL Hct (34.0-46.0) % RDW (11.5-15.5) % PT 21.4 H (9.0-12.0) sec INR 2.2 H (<1.2) BUN (7-17) mg/dL Creatinine (0.52-1.04) mg/dL Glucose (74-99) mg/dL POC Glucose (mg/dL) 120 H 146 H (75-99) mg/dL AST (14-36) U/L Alkaline Phosphatase (38-126) U/L Total Protein (6.3-8.2) g/dL 10/30/18 10/30/18 Range/Units 08:08 08:08 WBC 17.7 H (3.8-10.6) k/uL RBC 2.83 L (3.80-5.40) m/uL Hgb 8.7 L (11.4-16.0) gm/dL Hct 27.7 L (34.0-46.0) % RDW 20.6 H (11.5-15.5) % PT (9.0-12.0) sec INR (<1.2) BUN 92 H (7-17) mg/dL Creatinine 2.84 H (0.52-1.04) mg/dL Glucose 138 H (74-99) mg/dL POC Glucose (mg/dL) (75-99) mg/dL AST 55 H (14-36) U/L Alkaline Phosphatase 270 H (38-126) U/L Total Protein 9.0 H (6.3-8.2) g/dL Microbiology - Last 24 Hours (Table) 10/28/18 05:30 Urine Culture - Final Urine,Voided Klebsiella pneumoniae 10/28/18 05:05 Gram Stain - Final Sputum Sputum Culture - Final Methicillin resist S. aureus Klebsiella pneumoniae 10/27/18 01:00 Blood Culture - Preliminary Blood No Growth after 48 hours 10/28/18 00:48 Blood Culture - Preliminary Blood No Growth after 48 hours Assessment and Plan Assessment: #1 acute kidney injury suspect septic ATN/over diuresis. Creatinine stable. #2 suspect chronic kidney disease with a baseline creatinine of 1.8-2.0 MG per DL in August 2018. #3 metabolic acidosis from acute kidney injury #4 trach and PEG tube dependent. #5 hypertension. #6 anemia #7 hypernatremia Plan: #1 Lasix was stopped yesterday. add D5 water for hypernatremia. #2 restart Lasix 20 mg IV twice a day. #3 avoid nephrotoxic agents and hypotensive episodes. #4 labs in the morning
[2018-10-30] MEDS: FUROSEMIDE 10 MG/ML 2 ML VIAL IV SCH ×2 (11:49→23:39)
[2018-10-30 12:37] LABS: Glucose,Whole Blood 121 mg/dL (75-99)
[2018-10-30] MEDS: DEXTROSE 5% IN WATER 1,000 ML IV SCH (14:21)
[2018-10-30] MEDS: ALPRAZolam 0.5 MG TAB PEG/G-TUBE PRN ×2 (14:22→23:56)
--- NOTE | 2018-10-30 16:03 | P.PN ---
Subjective Progress Note Date: 10/30/18 Principal diagnosis: low oxygen levels Patient is a 63-year-old female with a complicated past medical history. She was here several months ago with MRSA sepsis with multiorgan failure and cardiopulmonary arrest requiring intubation, and trach, and BEHZAD requiring HD. [facility]. [facility]. She was being transported [facility] and [facility]. She developed an episode of hypoxemia, likely related to mucous plugging. EMS then ran out of oxygen she was subsequently brought here and admitted. Her vital signs were within normal limits on arrival. Initial laboratory analysis showed white blood cell count of 14.6, hemoglobin 8.2, platelet count 251, BUN 103, and creatinine 2.93. Urinalysis was consistent with urinary tract infection the likely represents chronic colonization. Chest x-ray showed persistent moderate interstitial edema and marked cardiomegaly. Sputum culture is growing multi organisms. Patient has been seen by pulmonary, nephrology, and cardiology. Found to have MRSA in the sputum, suspect tracheobronchitis. Started on vancomycin. Consult ID. Patient already has PICC line in place. Patient's was present on 10/28 and felt that patient was at baseline and could be released to [facility] Patient seen and examined at bedside. Refuses to talk to me, speaking valve in place, shakes had noted belly pain and shortness of breath. Objective - Vital Signs Vital signs: Vital Signs Temp 98.3 F 10/30/18 07:00 Pulse 72 10/30/18 15:31 Resp 12 10/30/18 07:00 BP 152/87 10/30/18 07:00 Pulse Ox 95 10/30/18 15:31 Intake & Output 10/29/18 10/30/18 10/30/18 18:59 06:59 18:59 Intake Total 40 120 5 Output Total 500 1200 Balance 40 -388 -1199 Weight 71.5 kg Intake: Tube Feeding 40 120 5 Output: Urine 500 1200 Other: Voiding Method Indwelling Catheter Indwelling Catheter # Bowel Movements 1 - Exam General: Ill-appearing, no distress, appears older than stated age, normal cristian ght Derm: Multiple areas of ecchymosis, warm, dry Head: atraumatic, normocephalic, symmetric Eyes: EOMI, no lid lag, anicteric sclera, pupils equal round reactive to light ENT: Nose and ears atraumatic, no thrush, no pharyngeal erythema Neck:+ trach in place with speaking valve, supple Mouth: no lip lesion, mucus membranes dry Cardiovascular: S1S2 reg, no murmur, positive posterior tibial pulse bilateral, no edema, capillary refill less than 2 seconds Lungs: course breath sounds , no accessory muscle use Abdominal: soft, nontender to palpation, no guarding, no appreciable organomegaly, normal bowel sounds PEG tube in place, Edwards catheter in place Psych: Alert, awake, appears angry - Labs CBC & Chem 7: 10/30/18 08:08 10/30/18 08:08 Labs: Abnormal Lab Results - Last 24 Hours (Table) 10/29/18 10/29/18 10/30/18 Range/Units 16:43 22:42 07:44 WBC (3.8-10.6) k/uL RBC (3.80-5.40) m/uL Hgb (11.4-16.0) gm/dL Hct (34.0-46.0) % RDW (11.5-15.5) % PT (9.0-12.0) sec INR (<1.2) BUN (7-17) mg/dL Creatinine (0.52-1.04) mg/dL Glucose (74-99) mg/dL POC Glucose (mg/dL) 154 H 120 H 146 H (75-99) mg/dL AST (14-36) U/L Alkaline Phosphatase (38-126) U/L Total Protein (6.3-8.2) g/dL 10/30/18 10/30/18 10/30/18 Range/Units 08:08 08:08 08:08 WBC 17.7 H (3.8-10.6) k/uL RBC 2.83 L (3.80-5.40) m/uL Hgb 8.7 L (11.4-16.0) gm/dL Hct 27.7 L (34.0-46.0) % RDW 20.6 H (11.5-15.5) % PT 21.4 H (9.0-12.0) sec INR 2.2 H (<1.2) BUN 92 H (7-17) mg/dL Creatinine 2.84 H (0.52-1.04) mg/dL Glucose 138 H (74-99) mg/dL POC Glucose (mg/dL) (75-99) mg/dL AST 55 H (14-36) U/L Alkaline Phosphatase 270 H (38-126) U/L Total Protein 9.0 H (6.3-8.2) g/dL 10/30/18 Range/Units 12:21 WBC (3.8-10.6) k/uL RBC (3.80-5.40) m/uL Hgb (11.4-16.0) gm/dL Hct (34.0-46.0) % RDW (11.5-15.5) % PT (9.0-12.0) sec INR (<1.2) BUN (7-17) mg/dL Creatinine (0.52-1.04) mg/dL Glucose (74-99) mg/dL POC Glucose (mg/dL) 121 H (75-99) mg/dL AST (14-36) U/L Alkaline Phosphatase (38-126) U/L Total Protein (6.3-8.2) g/dL Microbiology - Last 24 Hours (Table) 10/28/18 05:05 Gram Stain - Final Sputum Sputum Culture - Final Methicillin resist S. aureus Klebsiella pneumoniae 10/28/18 05:30 Urine Culture - Final Urine,Voided Klebsiella pneumoniae 10/27/18 01:00 Blood Culture - Preliminary Blood No Growth after 48 hours 10/28/18 00:48 Blood Culture - Preliminary Blood No Growth after 48 hours Assessment and Plan Assessment: Acute on chronic hypoxic respiratory failure, trach dependent -Suspect secondary to mucous plugging -Continue with trach care -Continue with Mucomyst, chest physiotherapy, supplemental oxygen as needed, and bronchodilators MRSA in sputum -With increasing white blood cell count concern for acute infection, vancomycin started, consult ID -Could be related to chronic colonization versus tracheobronchitis versus pneumonia -Pro calcitonin ordered Acute exacerbation of diastolic congestive heart failure -Continue with amlodipine, Lopressor, atorvastatin, and amiodarone -Lasix -Continue to monitor fluid overload CKD, suspect chronic after ATN, may be component of AK + - nephro recs: On D5 for possible hypernatremia, also getting Lasix - follow Cr - avoid additional nephrotoxic agents Paroxysmal atrial fibrillation on Coumadin - monitor HR - continue metoprolol - coumadin per pharmacy Chronic conditions: Leukocytosis Chronic anemia status post 2 units of blood transfusion in August 2018 Trach dependent Status post aborted sudden cardiac PEG tube on tube feedings-Nepro 45 mL/h Recent history of C. diff completed course of vancomycin on 10/26/18 Hypothyroidism Hypertension COPD without exacerbation Plan: Hope to discharge to [facility] DVT prophylaxis: coumadin Discussed with: patient, nursing Anticipated discharge date: 2-[address]: [facility] A total of 45 minutes was spent on the care of this complex patient more than 50% of the time was spent in counseling and care coordination.
[2018-10-30 17:33] LABS: Glucose,Whole Blood 129 mg/dL (75-99)
[2018-10-30] MEDS ORDERED: WARFARIN 2.5 MG TAB PEG/G-TUBE ONE (18:00)
[2018-10-30 20:38] LABS: Glucose,Whole Blood 130 mg/dL (75-99)
--- NOTE | 2018-10-30 23:23 | CONS ---
CONSULTATION DATE OF SERVICE: 10/30/2018. REASON FOR CONSULTATION: A positive sputum culture with MRSA. HISTORY OF PRESENT ILLNESS: The patient is a 63-year-old female with past medical history significant for cardiac arrest in July 2018. Patient did have extended complicated post arrest with requiring a tracheostomy and a PEG tube placement and transferred to [facility]. [facility] noticed to have hypoxemia. The patient is complaining of increasing shortness of breath and thick secretions from the tracheostomy for which the patient was brought in to the [facility] ER for further evaluation of the same. The patient on presentation to the hospital has been afebrile. The patient did have elevated white count 14.6 that is up to 17.7 today. The patient also have elevated creatinine 2.93, down to 2.4 though. The patient did have blood cultures currently pending. Sputum has been showing MRSA and Klebsiella pneumoniae with urine also showing Klebsiella pneumoniae. The patient chest x-ray reported pulmonary edema possibly due to congestive heart failure. Not significantly different than the last exam. Chest x-ray repeat 10/30 worsening change of congestive heart failure. The patient currently has been treated with Rocephin. Vancomycin has been added. Infectious disease was consulted for further recommendation regarding antibiotic therapy. Most of the information has been obtained from thorough review of the chart, talking to the nursing staff as the patient herself is not able to provide any reliable history. REVIEW OF SYSTEMS: Could not be reliably obtained. The positive points have been mentioned in HPI. 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 PAST SURGICAL HISTORY: Appendectomy, cholecystectomy, heart catheterization, hysterectomy. SOCIAL HISTORY: Remote history of smoking. No drinking, or drug use. FAMILY HISTORY: Mother with history of cancer. ALLERGIES: ALLERGIES TO NITROFURANTOIN, SULFA AND TETRACYCLINE. MEDICATIONS: Include the patient is currently on Vancomycin, Zoloft, Seroquel, Protonix, Zofran, Nitrostat, Singulair, Lopressor, Synthroid, Lasix, folic acid, Duragesic patch, Plavix, Questran, Rocephin, amlodipine, amiodarone, Xanax, DuoNeb. PHYSICAL EXAMINATION: Blood pressure is 144/77 with a pulse of 69, temperature 98.8, and no fever during this admission. The patient is 95% on trach collar. General description is a middle-aged female lying in bed in no distress. No tachypnea, no accessory muscles for respiration use. HEENT: Shows slight pallor. No scleral icterus. Oral mucosal membranes are dry. Neck: Trach site is clean. Respiratory system: Unlabored breathing. Coarse breath sounds bilaterally. No wheeze. Heart S1, S2. Regular rate and rhythm. Abdomen soft. No tenderness. No guarding. No rigidity. Extremities: No edema of the feet. Skin examination: No rash or mass palpable. Neurological: Patient is awake, alert, but did not answer any questions to determine orientation. LABS: Hemoglobin 8.7, white count 17.7, BUN of 22, creatinine 2.84. Electrolytes have been normal. UA was positive, large leukocyte esterase, more than 1-2 WBC. DIAGNOSTIC IMPRESSION/PLAN: 1. Patient admitted to the hospital with increasing shortness of breath in this patient whose x-rays have been mostly suggestive of his congestive heart failure pattern. No evidence of any consolidation. The patient is currently not running any fever. Clinically, suspicion is low for underlying pneumonia. The patient did have history of MRSA colonization with a positive sputum culture likely representing MRSA colonization rather than acute MRSA pneumonia. 2. The patient did have a positive UA with urine culture positive for Klebsiella likely symptomatic urinary tract infection, possible catheter associated. 3. Patient with the vancomycin. PLAN: 1. Discontinue the vancomycin decrease clinically doubt MRSA pneumonia possibly positive sputum culture with any colonization. 2. Rocephin 1 gm to continue with underlying urinary tract infection. 3. We will follow up on clinical condition and culture to further adjust medication if needed. Thank you for this consultation. Will follow this patient with you. MMODL / IJN: [id number] /
[2018-10-30] MEDS: QUEtiapine 100 MG TAB PEG/G-TUBE SCH (23:39)
[2018-10-30] MEDS: MONTELUKAST 10 MG TAB PEG/G-TUBE SCH (23:41)
[2018-10-31] MEDS: METOPROLOL TARTRATE 50 MG TAB PEG/G-TUBE SCH ×3 (00:28→17:02)
[2018-10-31] MEDS: IPRATROPIUM-ALBUTEROL 3 ML NEB INHALATION SCH ×5 (03:33→20:25)
[2018-10-31] MEDS: LEVOTHYROXINE 75 MCG TAB PEG/G-TUBE SCH (06:47)
[2018-10-31 07:35] LABS: Glucose,Whole Blood 118 mg/dL (75-99)
[2018-10-31] MEDS: INSULIN ASPART (NovoLOG) 100 UNIT/ML VIAL SQ SCH ×4 (07:37→22:04)
[2018-10-31] MEDS: QUEtiapine 25 MG TAB PEG/G-TUBE SCH (08:58)
[2018-10-31] MEDS ORDERED: VANCOMYCIN 1,500 MG in SODIUM CHLORIDE 0.9% 250 ML IVPB ONE (09:00)
[2018-10-31] MEDS: CLOPIDOGREL 75 MG TAB PEG/G-TUBE SCH (09:01)
[2018-10-31] MEDS: AMIODARONE 200 MG TAB PEG/G-TUBE SCH (09:01)
[2018-10-31] MEDS: amLODIPine 2.5 MG TAB PEG/G-TUBE SCH (09:01)
[2018-10-31] MEDS: ATORVASTATIN 20 MG TAB PEG/G-TUBE SCH (09:01)
[2018-10-31] MEDS: FOLIC ACID 1 MG TAB PEG/G-TUBE SCH (09:01)
[2018-10-31] MEDS: SERTRALINE 50 MG TAB PEG/G-TUBE SCH (09:01)
[2018-10-31] MEDS: PANTOPRAZOLE 40 MG/10 ML VIAL IVP SCH ×2 (09:01→22:04)
[2018-10-31] MEDS: CHOLESTYRAMINE (WITH SUGAR) 4 GM PACKET PEG/G-TUBE SCH ×2 (09:02→22:02)
[2018-10-31] MEDS: DEXTROSE 5% IN WATER 1,000 ML IV SCH (09:02)
[2018-10-31] MEDS: FUROSEMIDE 10 MG/ML 2 ML VIAL IV SCH ×2 (09:02→22:03)
[2018-10-31] MEDS: FLUTICASONE 50MCG/SPRAY NASAL 16GM EA NOSTRIL SCH (09:02)
[2018-10-31 10:01] LABS: INR 1.7 (<1.2); Prothrombin Time 16.6 sec (9.0-12.0)
--- NOTE | 2018-10-31 10:28 | P.PN ---
Subjective Patient is seen in follow-up for acute kidney injury on chronic kidney disease. Creatinine peaked at 3.14 this admission and was down to 2.84 as of yesterday. Currently maintained on Lasix 20 mg IV twice daily. She is also receiving tube feeding at goal. She is nonoliguric. Vital signs are stable. General: The patient appeared well nourished and normally developed. HEENT: Head exam is unremarkable. Neck is without jugular venous distension. Tracheostomy noted. LUNGS: Lungs are clear to auscultation and percussion. Breath sounds decreased. HEART: Rate and Rhythm are regular. First and second heart sounds normal. No murmurs, rubs or gallops. ABDOMEN: Abdominal exam reveals normal bowel sounds. Non-tender and non- distended. EXTREMITITES: Trace edema. Objective - Vital Signs Vital signs: Vital Signs Temp 97.5 F L 10/31/18 07:20 Pulse 78 10/31/18 08:19 Resp 17 10/31/18 07:20 BP 119/80 10/31/18 07:20 Pulse Ox 97 10/31/18 07:20 Intake & Output 10/30/18 10/31/18 10/31/18 18:59 06:59 18:59 Intake Total 5 1170 Output Total 1200 1900 Balance -1195 -730 Weight 73.2 kg Intake: Oral 0 Tube Feeding 5 920 Other 250 Output: Urine 1200 1900 Other: Voiding Method Indwelling Catheter Indwelling Catheter Indwelling Catheter - Labs CBC & Chem 7: 10/30/18 08:08 10/30/18 08:08 Labs: Abnormal Lab Results - Last 24 Hours (Table) 10/30/18 10/30/18 10/30/18 Range/Units 12:21 17:18 20:32 PT (9.0-12.0) sec INR (<1.2) POC Glucose (mg/dL) 121 H 129 H 130 H (75-99) mg/dL 10/31/18 10/31/18 Range/Units 07:20 09:41 PT 16.6 H (9.0-12.0) sec INR 1.7 H (<1.2) POC Glucose (mg/dL) 118 H (75-99) mg/dL Microbiology - Last 24 Hours (Table) 10/27/18 01:00 Blood Culture - Preliminary Blood No Growth after 72 hours 10/28/18 00:48 Blood Culture - Preliminary Blood No Growth after 72 hours 10/28/18 05:05 Gram Stain - Final Sputum Sputum Culture - Final Methicillin resist S. aureus Klebsiella pneumoniae 10/28/18 05:30 Urine Culture - Final Urine,Voided Klebsiella pneumoniae Assessment and Plan Plan: Assessment: 1. Acute kidney injury mostly prerenal secondary to diuresis. Creatinine peaked at 3.1 for this admission and was down to 2.84 as of yesterday. 2. Rule out chronic kidney disease. It is very likely that the patient has developed chronic kidney disease due to nonrecovered ATN from July 2018. 3. Acute hypoxic respiratory failure secondary to volume overload. 4. Anemia. Likely component of chronic illness. Iron deficiency noted. Also on Aranesp. 5. Metabolic acidosis secondary to acute kidney injury. Better. 6. Recent C. diff. 7. Status post cardiac arrest in July 2018. 8. UTI. Urine culture positive for Klebsiella. Plan: Maintain Lasix 20 mg IV twice daily. Can be given orally for now due to no IV access. Continue to monitor renal function and urine output. Avoid nephrotoxins. Hold antihypertensives for systolic blood pressure less than 120. Monitor bicarb. IV iron 3 doses. First dose today.
[2018-10-31 10:34] VITALS: BMI 26.8
[2018-10-31] MEDS: SODIUM FERRIC GLUCONAT-SUCROSE 125 MG in SODIUM CHLORIDE 0.9% 100 ML IVPB SCH (12:08)
[2018-10-31 12:36] LABS: Glucose,Whole Blood 112 mg/dL (75-99)
[2018-10-31] MEDS: CEFDINIR ORAL SUSP 1,500 MG/60 ML BOTTLE PEJ/J-Tube SCH (13:58)
--- NOTE | 2018-10-31 15:38 | P.PN ---
Subjective Progress Note Date: 10/31/18 Principal diagnosis: acute hypoxic respiratory failure Patient was seen and examined. No acute events overnight. Patient looking away when questions are asked. Objective - Vital Signs Vital signs: Vital Signs Temp 97.5 F L 10/31/18 07:20 Pulse 70 10/31/18 12:14 Resp 17 10/31/18 07:20 BP 119/80 10/31/18 07:20 Pulse Ox 97 10/31/18 07:20 Intake & Output 10/30/18 10/31/18 10/31/18 18:59 06:59 18:59 Intake Total 5 1170 Output Total 1200 1900 250 Balance -1195 -730 -250 Weight 73.2 kg 73.2 kg Intake: Oral 0 Tube Feeding 5 920 Other 250 Output: Urine 1200 1900 250 Other: Voiding Method Indwelling Catheter Indwelling Catheter Indwelling Catheter - Exam General: [Ill-appearing with trach], [no distress], [appears at stated age] Derm: [warm], [dry], [ecchymosis in extremities] Head: [atraumatic], [normocephalic], [symmetric] Eyes: [EOMI], [no lid lag], [anicteric sclera] Mouth: [no lip lesion], [mucus membranes moist] Cardiovascular: [S1S2 reg], [no murmur], [positive posterior tibial pulse bilateral], Lungs: [Coarse breath sounds bilateral], [no rhonchi, no rales] , [no accessory muscle use] Abdominal: [soft], [ nontender to palpation], [no guarding], [no appreciable organomegaly], [PEG and Edwards in place] Ext: [no gross muscle atrophy], [no edema], [no contractures] - Labs CBC & Chem 7: 10/30/18 08:08 10/31/18 09:41 Labs: Abnormal Lab Results - Last 24 Hours (Table) 10/30/18 10/30/18 10/30/18 Range/Units 08:08 17:18 20:32 PT (9.0-12.0) sec INR (<1.2) Creatinine (0.52-1.04) mg/dL POC Glucose (mg/dL) 129 H 130 H (75-99) mg/dL Procalcitonin 0.32 H (0.02-0.09) ng/mL 10/31/18 10/31/18 10/31/18 Range/Units 07:20 09:41 09:41 PT 16.6 H (9.0-12.0) sec INR 1.7 H (<1.2) Creatinine 2.81 H (0.52-1.04) mg/dL POC Glucose (mg/dL) 118 H (75-99) mg/dL Procalcitonin (0.02-0.09) ng/mL 10/31/18 Range/Units 12:14 PT (9.0-12.0) sec INR (<1.2) Creatinine (0.52-1.04) mg/dL POC Glucose (mg/dL) 112 H (75-99) mg/dL Procalcitonin (0.02-0.09) ng/mL Microbiology - Last 24 Hours (Table) 10/27/18 01:00 Blood Culture - Preliminary Blood No Growth after 72 hours 10/28/18 00:48 Blood Culture - Preliminary Blood No Growth after 72 hours 10/28/18 05:05 Gram Stain - Final Sputum Sputum Culture - Final Methicillin resist S. aureus Klebsiella pneumoniae Assessment and Plan Assessment: Acute on chronic hypoxic respiratory failure, trach dependent MRSA in sputum Acute exacerbation of diastolic congestive heart failure Acute kidney injury on chronic kidney disease Paroxysmal atrial fibrillation Chest x-ray shows worsening changes of congestive heart failure. Possibly related to mucous plugging as well. Plans: Continue Mucomyst. DuoNeb scheduled and as needed for shortness of breath and wheezing. Trach care. Chest physiotherapy. Supplemental oxygen. Follow pulmonology recommendations. Possible colonization, unlikely pneumonia. Plans: Continue cefdinir. Follow ID recommendations. August 2018 echocardiogram shows EF 50-55%. Chest x-ray showing worsening signs of CHF. Plans: Continue Lasix (currently on PO due to no IV access but would prefer to be IV due to volume overload status). Continue beta lucinda. Strict intake and output. Daily weights. Consult cardiology for input. Creatinine 2.81. Plans: Continue D5 as per nephro recommendations. Started on IV iron as per nephrology recommendations. Will attempt to get line placed for IV Lasix, discussed with nursing. Daily BMP. Avoid nephrotoxins. Follow Nephrology recommendations. Plans: Telemetry monitoring. Continue amiodarone. Continue beta lucinda. Warfarin for anticoagulation, maintain INR 2-3. [Patient is admitted for acute on chronic hypoxic respiratory failure likely secondary to CHF exacerbation. Currently being diuresed. Cardiology consulted. Possible DC in 2-3 days.]
[2018-10-31] MEDS ORDERED: FUROSEMIDE 20 MG TAB PO SCH (16:00)
[2018-10-31 17:20] LABS: Glucose,Whole Blood 125 mg/dL (75-99)
[2018-10-31] MEDS ORDERED: WARFARIN 3 MG TAB PEG/G-TUBE ONE (18:00)
--- NOTE | 2018-10-31 20:18 | PN ---
PROGRESS NOTE DATE OF SERVICE: 10/31/2018. REASON FOR FOLLOWUP: 1. Klebsiella pneumonia UTI. 2. Positive sputum culture with MRSA and Klebsiella pneumonia. INTERVAL HISTORY: The patient is currently afebrile. The patient did pull out her take line. The patient remains to be lethargic and sleepy. Unable to provide any history. No nausea or vomiting has been reported by the nursing staff or any diarrhea. Has been tolerating tube feeds. PHYSICAL EXAMINATION: Blood pressure 104/74 with a pulse of 94, temperature of 97.7, she is 95% on trach collar. General description is middle-aged female, lying in bed in no distress. Respiratory system unlabored breathing. Some coarse breath sounds. No wheeze. Heart S1, S2. Regular rate and rhythm. ABDOMEN: Soft. No tenderness. LABS: No new labs have been obtained today. DIAGNOSTIC IMPRESSION AND PLAN: Patient admitted to the hospital with hypoxemia in this patient who did have a complicated history with cardiac arrest, status post trach and PEG and recent discharge from [facility]. The patient being admitted to this facility rather than going to the halfway, actually has been worsening changes of congestive heart failure. No consolidation. The patient had no fever. Clinically suspicion low for underlying MRSA pneumonia. Patient currently covered with oral Ceftin. at the bedside. Questions answered. MMODL / IJN: [id number] /
[2018-10-31 21:24] LABS: Glucose,Whole Blood 131 mg/dL (75-99)
[2018-10-31] MEDS: MONTELUKAST 10 MG TAB PEG/G-TUBE SCH (22:03)
[2018-10-31] MEDS: QUEtiapine 100 MG TAB PEG/G-TUBE SCH (22:03)
[2018-10-31] MEDS: ALPRAZolam 0.5 MG TAB PEG/G-TUBE PRN (22:56)
[2018-11-01] MEDS ORDERED: HALOPERIDOL LACTATE 5 MG/ML 1 ML VIAL IVP STA (00:02)
[2018-11-01] MEDS: METOPROLOL TARTRATE 50 MG TAB PEG/G-TUBE SCH ×3 (00:16→15:24)
[2018-11-01] MEDS ORDERED: LORazepam 2 MG/ML INJ IV STA (00:59)
[2018-11-01] MEDS: IPRATROPIUM-ALBUTEROL 3 ML NEB INHALATION SCH ×8 (01:04→23:50)
[2018-11-01] MEDS: DEXTROSE 5% IN WATER 1,000 ML IV SCH (04:46)
[2018-11-01] MEDS: LEVOTHYROXINE 75 MCG TAB PEG/G-TUBE SCH (06:30)
[2018-11-01 07:17] LABS: Glucose,Whole Blood 134 mg/dL (75-99)
[2018-11-01] MEDS: INSULIN ASPART (NovoLOG) 100 UNIT/ML VIAL SQ SCH ×4 (08:19→21:59)
[2018-11-01 08:43] LABS: Calcium 9.3 mg/dL (8.4-10.2); INR 1.8 (<1.2); Potassium 3.4 mmol/L (3.5-5.1); Prothrombin Time 17.5 sec (9.0-12.0)
[2018-11-01] MEDS: SODIUM FERRIC GLUCONAT-SUCROSE 125 MG in SODIUM CHLORIDE 0.9% 100 ML IVPB SCH (09:15)
[2018-11-01] MEDS ORDERED: Potassium Replacement Protocol 1 EACH MISC MISCELLANE PRN (10:46)
--- NOTE | 2018-11-01 10:47 | P.PN ---
Subjective Patient is seen in follow-up for acute kidney injury on chronic kidney disease. Creatinine peaked at 3.14 this admission and is down to 2.7 today. Currently maintained on Lasix 20 mg IV twice daily. She is also receiving tube feeding at goal. She is nonoliguric. Scheduled for swallow evaluation today. More awake and alert today. Vital signs are stable. General: The patient appeared well nourished and normally developed. HEENT: Head exam is unremarkable. Neck is without jugular venous distension. Tracheostomy noted. LUNGS: Lungs are clear to auscultation and percussion. Breath sounds decreased. HEART: Rate and Rhythm are regular. First and second heart sounds normal. No murmurs, rubs or gallops. ABDOMEN: Abdominal exam reveals normal bowel sounds. Non-tender and non- distended. EXTREMITITES: Trace edema. Objective - Vital Signs Vital signs: Vital Signs Temp 98.6 F 11/01/18 07:00 Pulse 88 11/01/18 09:10 Resp 16 11/01/18 07:00 BP 118/76 11/01/18 07:00 Pulse Ox 96 11/01/18 07:00 Intake & Output 10/31/18 11/01/18 11/01/18 18:59 06:59 18:59 Intake Total 320 640 80 Output Total 500 2650 - 80 Weight 73.2 kg 73.5 kg Intake: Tube Feeding 320 640 80 Output: Urine 500 2650 Other: Voiding Method Indwelling Catheter Indwelling Catheter Indwelling Catheter # Voids 2 # Bowel Movements 2 - Labs CBC & Chem 7: 10/30/18 08:08 11/01/18 07:49 Labs: Abnormal Lab Results - Last 24 Hours (Table) 10/30/18 10/31/18 10/31/18 Range/Units 08:08 12:14 17:07 PT (9.0-12.0) sec INR (<1.2) Potassium (3.5-5.1) mmol/L BUN (7-17) mg/dL Creatinine (0.52-1.04) mg/dL Glucose (74-99) mg/dL POC Glucose (mg/dL) 112 H 125 H (75-99) mg/dL Procalcitonin 0.32 H (0.02-0.09) ng/mL 10/31/18 11/01/1819 Range/Units 21:13 07:05 07:49 PT (9.0-12.0) sec INR (<1.2) Potassium 3.4 L (3.5-5.1) mmol/L BUN 81 H (7-17) mg/dL Creatinine 2.70 H (0.52-1.04) mg/dL Glucose 111 H (74-99) mg/dL POC Glucose (mg/dL) 131 H 134 H (75-99) mg/dL Procalcitonin (0.02-0.09) ng/mL 11/01/18 Range/Units 07:49 PT 17.5 H (9.0-12.0) sec INR 1.8 H (<1.2) Potassium (3.5-5.1) mmol/L BUN (7-17) mg/dL Creatinine (0.52-1.04) mg/dL Glucose (74-99) mg/dL POC Glucose (mg/dL) (75-99) mg/dL Procalcitonin (0.02-0.09) ng/mL Microbiology - Last 24 Hours (Table) 10/27/18 01:00 Blood Culture - Preliminary Blood No Growth after 96 hours 10/28/18 00:48 Blood Culture - Preliminary Blood No Growth after 96 hours Assessment and Plan Plan: Assessment: 1. Acute kidney injury mostly prerenal secondary to diuresis. Creatinine peaked at 3.14 this admission and is down to 2.7 today. 2. Rule out chronic kidney disease. It is very likely that the patient has developed chronic kidney disease due to nonrecovered ATN from July 2018. 3. Acute hypoxic respiratory failure secondary to volume overload. 4. Anemia. Likely component of chronic illness. Iron deficiency noted. Also on Aranesp. 5. Metabolic acidosis secondary to acute kidney injury. Better. 6. Recent C. diff. 7. Status post cardiac arrest in July 2018. 8. UTI. Urine culture positive for Klebsiella. 9. Hypokalemia secondary to diuresis. Magnesium replete. Plan: Maintain Lasix 20 mg IV twice daily. Continue to monitor renal function and urine output. Avoid nephrotoxins. Hold antihypertensives for systolic blood pressure less than 120. Monitor bicarb. IV iron 3 doses. Second dose today. Replace potassium. 40 mEq today.
[2018-11-01] MEDS ORDERED: POTASSIUM CHLORIDE ER 20 MEQ TAB.ER PO STA (10:48)
[2018-11-01] MEDS: AMIODARONE 200 MG TAB PEG/G-TUBE SCH (10:59)
[2018-11-01] MEDS: amLODIPine 2.5 MG TAB PEG/G-TUBE SCH (10:59)
[2018-11-01] MEDS: CEFDINIR ORAL SUSP 1,500 MG/60 ML BOTTLE PEJ/J-Tube SCH (11:41)
[2018-11-01] MEDS: FUROSEMIDE 10 MG/ML 2 ML VIAL IV SCH ×2 (11:43→20:05)
[2018-11-01] MEDS: PANTOPRAZOLE 40 MG/10 ML VIAL IVP SCH ×2 (11:43→20:06)
[2018-11-01] MEDS: ATORVASTATIN 20 MG TAB PEG/G-TUBE SCH (11:43)
[2018-11-01] MEDS: FOLIC ACID 1 MG TAB PEG/G-TUBE SCH (11:44)
[2018-11-01] MEDS: SERTRALINE 50 MG TAB PEG/G-TUBE SCH (11:44)
[2018-11-01] MEDS: CHOLESTYRAMINE (WITH SUGAR) 4 GM PACKET PEG/G-TUBE SCH ×2 (11:44→20:05)
[2018-11-01] MEDS: FLUTICASONE 50MCG/SPRAY NASAL 16GM EA NOSTRIL SCH (11:45)
[2018-11-01] MEDS: CLOPIDOGREL 75 MG TAB PEG/G-TUBE SCH (11:48)
[2018-11-01 11:53] LABS: Glucose,Whole Blood 125 mg/dL (75-99)
--- NOTE | 2018-11-01 12:48 | FL ---
EXAMINATION TYPE: FL barium swallow w video DATE OF EXAM: 11/01/2018 MODIFIED SWALLOW / DEGLUTITION STUDY CLINICAL HISTORY: Dysphagia. TECHNIQUE: Deglutition study is performed utilizing thin liquid barium, honey and nectar thick liqui d barium, barium thick applesauce, and barium coated cracker. 2 minutes and 9 seconds of fluoroscopy time was utilized. 0 fluoroscopic images were saved as the examination was video recorded. COMPARISON: None. FINDINGS: The oral and pharyngeal phases show delayed initiation and propagation with solid and thick consistencies. There is deep laryngeal penetration noted with both the liquid and nectar thick bariu m consistencies that improved with smaller bolus administration. No laryngeal penetration nor aspirat ion was seen with the honey, barium thick applesauce, barium coated cracker consistencies. No aspirat ion throughout the examination. Normal mastication is seen with solid modalities tested. No signifi cant pharyngeal residue was appreciated. IMPRESSION: Deep phalangeal penetration with the liquid and honey thick consistencies improved with a dministering a smaller bolus. Please refer to speech therapist notes for further details if necessar yTom
--- NOTE | 2018-11-01 13:43 | XR ---
EXAMINATION TYPE: XR chest 1V portable DATE OF EXAM: 11/01/2018 COMPARISON: 10/30/2018 HISTORY: Hypoxemia TECHNIQUE: Single frontal view of the chest is obtained. FINDINGS: There is a markedly enlarged cardiomediastinal silhouette. Midline tracheostomy is seen. P atient's chin obscures the lung apices. Retrocardiac airspace disease is noted with trace pleural eff usions blunting the costophrenic angles. Interstitial prominence is noted throughout, similar to the prior. IMPRESSION: 1. Increasing left basilar airspace disease concerning for unifocal pneumonia versus atelectasis. 2. Diffuse interstitial prominence may relate to cardiogenic fluid overload given the markedly enlarg ed cardiac mediastinal silhouette. Echocardiogram could also assess for pericardial effusion.
--- NOTE | 2018-11-01 16:21 | P.PN ---
Subjective Progress Note Date: 11/01/18 Principal diagnosis: Acute on chronic hypoxic respiratory failure Patient was seen and examined. No acute events overnight. Patient appears fatigued and lethargic this morning. Appears uninterested in answer questions. Patient was revisited in the afternoon. Reports that her breathing is doing well. States that she has a cough that is wet, unable to bring up sputum. Com plains of intermittent abdominal pain due to PEG but tolerable at this time. She denies any chest pain, shortness of breath or palpitations. No nausea or vomiting. No fever or chills. Objective - Vital Signs Vital signs: Vital Signs Temp 98.6 F 11/01/18 07:00 Pulse 88 11/01/18 09:10 Resp 16 11/01/18 07:00 BP 118/76 11/01/18 07:00 Pulse Ox 96 11/01/18 07:00 Intake & Output 10/31/18 11/01/18 11/01/18 18:59 06:59 18:59 Intake Total 320 640 80 Output Total 500 2650 80 Weight 73.2 kg 73.5 kg Intake: Tube Feeding 320 640 80 Output: Urine 500 2650 Other: Voiding Method Indwelling Catheter Indwelling Catheter Indwelling Catheter # Voids 2 # Bowel Movements 2 - Exam General: [Ill-appearing with trach], [no distress], [appears at stated age] Derm: [warm], [dry], [ecchymosis in extremities] Head: [atraumatic], [normocephalic], [symmetric] Eyes: [EOMI], [no lid lag], [anicteric sclera] Mouth: [no lip lesion], [mucus membranes moist] Cardiovascular: [S1S2 reg], [no murmur], [positive posterior tibial pulse bilateral], Lungs: [Coarse breath sounds bilateral], [no rhonchi, no rales] , [no accessory muscle use] Abdominal: [soft], [ nontender to palpation], [no guarding], [no appreciable organomegaly], [PEG and Edwards in place] Ext: [no gross muscle atrophy], [no edema], [no contractures] - Labs CBC & Chem 7: 10/30/18 08:08 11/01/18 07:49 Labs: Abnormal Lab Results - Last 24 Hours (Table) 10/30/18 10/31/18 10/31/18 Range/Units 08:08 12:14 17:07 PT (9.0-12.0) sec INR (<1.2) Potassium (3.5-5.1) mmol/L BUN (7-17) mg/dL Creatinine (0.52-1.04) mg/dL Glucose (74-99) mg/dL POC Glucose (mg/dL) 112 H 125 H (75-99) mg/dL Procalcitonin 0.32 H (0.02-0.09) ng/mL 10/31/18 11/01/18 11/01/18 Range/Units 21:13 07:05 07:49 PT (9.0-12.0) sec INR (<1.2) Potassium 3.4 L (3.5-5.1) mmol/L BUN 81 H (7-17) mg/dL Creatinine 2.70 H (0.52-1.04) mg/dL Glucose 111 H (74-99) mg/dL POC Glucose (mg/dL) 131 H 134 H (75-99) mg/dL Procalcitonin (0.02-0.09) ng/mL 11/01/18 Range/Units 07:49 PT 17.5 H (9.0-12.0) sec INR 1.8 H (<1.2) Potassium (3.5-5.1) mmol/L BUN (7-17) mg/dL Creatinine (0.52-1.04) mg/dL Glucose (74-99) mg/dL POC Glucose (mg/dL) (75-99) mg/dL Procalcitonin (0.02-0.09) ng/mL Microbiology - Last 24 Hours (Table) 10/27/18 01:00 Blood Culture - Preliminary Blood No Growth after 96 hours 10/28/18 00:48 Blood Culture - Preliminary Blood No Growth after 96 hours Assessment and Plan Assessment: Acute on chronic hypoxic respiratory failure, trach dependent MRSA in sputum UTI Fluid overload likely secondary to acute kidney injury Acute kidney injury on chronic kidney disease Paroxysmal atrial fibrillation Chest x-ray shows worsening changes of congestive heart failure. Possibly related to mucous plugging as well. Plans: Continue Mucomyst. DuoNeb scheduled and as needed for shortness of breath and wheezing. Trach care. Chest physiotherapy. Supplemental oxygen. Follow pulmonology recommendations. Possible colonization, unlikely pneumonia. Plans: Continue cefdinir. Follow ID recommendations. Urine cultures showing Klebsiella pneumonia. Plans: Continue cefdinir. Follow ID recommendations. August 2018 echocardiogram shows EF 50-55%. Chest x-ray showing worsening signs of CHF. Discussed with Cardiology MANAGER OPERATIONS AND PROCUREMENT, they do not believe that this is cardiac in nature but rather due to her kidney disease. Plans: Continue Lasix IV. Continue beta lucinda. Strict intake and output. Daily weights. Follow nephrology recommendations. Creatinine 2.81-2.70. Plans: Continue D5 as per nephro recommendations. Started on IV iron as per nephrology recommendations. Daily BMP. Avoid nephrotoxins. Follow Nephrology recommendations. Plans: Telemetry monitoring. Continue amiodarone. Continue beta lucinda. Warfarin for anticoagulation, maintain INR 2-3. [Patient is admitted for acute on chronic hypoxic respiratory failure likely secondary to fluid overload from acute kidney injury. Currently being diuresed. Cardiology and nephrology consulted. Possible DC in 1-2 days.]
[2018-11-01 17:21] LABS: Glucose,Whole Blood 126 mg/dL (75-99)
[2018-11-01] MEDS ORDERED: WARFARIN 3 MG TAB PEG/G-TUBE ONE (18:00)
[2018-11-01] MEDS: MONTELUKAST 10 MG TAB PEG/G-TUBE SCH (20:05)
[2018-11-01] MEDS: QUEtiapine 100 MG TAB PEG/G-TUBE SCH (20:06)
[2018-11-01 20:15] LABS: Glucose,Whole Blood 136 mg/dL (75-99)
[2018-11-02] MEDS: METOPROLOL TARTRATE 50 MG TAB PEG/G-TUBE SCH ×3 (00:36→16:30)
[2018-11-02] MEDS: DEXTROSE 5% IN WATER 1,000 ML IV SCH ×2 (03:38→21:20)
[2018-11-02] MEDS: IPRATROPIUM-ALBUTEROL 3 ML NEB INHALATION SCH ×7 (04:11→23:51)
[2018-11-02] MEDS: INSULIN ASPART (NovoLOG) 100 UNIT/ML VIAL SQ SCH ×4 (08:32→21:15)
[2018-11-02] MEDS ORDERED: QUEtiapine 50 MG TAB PEG/G-TUBE STA (09:15)
[2018-11-02] MEDS: FUROSEMIDE 10 MG/ML 2 ML VIAL IV SCH ×2 (09:36→21:20)
[2018-11-02] MEDS: amLODIPine 2.5 MG TAB PEG/G-TUBE SCH (09:36)
[2018-11-02] MEDS: AMIODARONE 200 MG TAB PEG/G-TUBE SCH (09:36)
[2018-11-02] MEDS: FLUTICASONE 50MCG/SPRAY NASAL 16GM EA NOSTRIL SCH (09:37)
[2018-11-02] MEDS: ATORVASTATIN 20 MG TAB PEG/G-TUBE SCH (09:43)
[2018-11-02] MEDS: LEVOTHYROXINE 75 MCG TAB PEG/G-TUBE SCH (09:43)
[2018-11-02] MEDS: CLOPIDOGREL 75 MG TAB PEG/G-TUBE SCH (09:43)
[2018-11-02] MEDS: CEFDINIR ORAL SUSP 1,500 MG/60 ML BOTTLE PEJ/J-Tube SCH (09:43)
[2018-11-02] MEDS: CHOLESTYRAMINE (WITH SUGAR) 4 GM PACKET PEG/G-TUBE SCH ×2 (09:43→21:20)
[2018-11-02] MEDS: SODIUM FERRIC GLUCONAT-SUCROSE 125 MG in SODIUM CHLORIDE 0.9% 100 ML IVPB SCH (09:44)
[2018-11-02] MEDS: PANTOPRAZOLE 40 MG/10 ML VIAL IVP SCH (09:44)
[2018-11-02] MEDS: SERTRALINE 50 MG TAB PEG/G-TUBE SCH (09:44)
[2018-11-02] MEDS: FOLIC ACID 1 MG TAB PEG/G-TUBE SCH (09:44)
[2018-11-02 11:15] LABS: Glucose,Whole Blood 153 mg/dL (75-99)
--- NOTE | 2018-11-02 11:40 | P.DS ---
Providers Date of admission: 10/28/18 18:56 Expected date of discharge: 11/02/18 Attending physician: Kristin Mcmanus DO Consults: 10/27/18 20:24 Consult Physician Routine Consulting Provider: Felix Barnes Consult Reason/Comments: chf Do you want consulting provider notified?: Yes 10/27/18 23:38 Consult Physician Routine Consulting Provider: Rosie Sotomayor Consult Reason/Comments: hypoxemia Do you want consulting provider notified?: Yes, Notify in am 10/28/18 12:03 Consult Physician Routine Consulting Provider: Stanislav Sanchez Consult Reason/Comments: nick on ckd Do you want consulting provider notified?: Yes 10/30/18 15:58 Consult Physician Routine Consulting Provider: Edgar Herrera Consult Reason/Comments: MRSA sputum Do you want consulting provider notified?: Yes 10/31/18 13:10 Consult Physician Routine Consulting Provider: Felix Barnes Consult Reason/Comments: CHF exacerbation Do you want consulting provider notified?: Yes 11/01/18 14:53 Consult Physician Routine Consulting Provider: Felix Barnes Consult Reason/Comments: CHF Do you want consulting provider notified?: Yes Primary care physician: Xiomara Deleno MD Hospital Course: Patient is a 63-year-old female with a complicated past medical history. She was here several months ago with MRSA sepsis with multiorgan failure and cardiopulmonary arrest requiring intubation, and trach, and NICK requiring HD. She's been [facility] where she was treated for C. diff. She was being transported [facility] and [facility]. She developed an episode of hypoxemia, likely related to mucous plugging. EMS then ran out of oxygen she was subsequently brought here and admitted. Her vital signs were within normal limits on arrival. Initial laboratory analysis showed white blood cell count of 14.6, hemoglobin 8.2, platelet count 251, BUN 103, and creatinine 2.93. Urinalysis was consistent with urinary tract infection the likely represents chronic colonization. Urine culture positive for Klebsiella pneumonia. Chest x-ray showed persistent moderate interstitial edema and marked cardiomegaly. Sputum culture was growing MRSA in the sputum, suspect tracheobronchitis, and was started on Vancomycin. Infectious disease was consulted and patient was switched to cefdinir. Blood cultures are negative at 120 hours. With regard to her acute on chronic hypoxic respiratory failure, she was continued on Mucomyst, DuoNeb scheduled and as needed for shortness of breath and wheezing. Serial chest x-ray showed worsening pulmonary edema due to CHF. Cardiology was consulted and recommended nephrology evaluation as they thought that this was not related to her CHF but rather fluid overload from kidney disease. Patient started on Lasix 20 mg IV twice a day. Patient initially had a creatinine of 3.14 on admission which improved to 2.70 at the time of discharge. Nephrology was consulted and recommended transitioning from IV to diuresis by mouth. Video swallow was done which showed deep phalangeal penetration with liquid and honey thick consistencies improved with administering the smaller bolus. Patient was seen and examined. No acute events overnight. Patient more agitated this morning per RN, attempting to pull trach. Refusing blood draw. General: [Ill-appearing with trach], [no distress], [appears at stated age] Derm: [warm], [dry], [ecchymosis in extremities] Head: [atraumatic], [normocephalic], [symmetric] Eyes: [EOMI], [no lid lag], [anicteric sclera] Mouth: [no lip lesion], [mucus membranes moist] Cardiovascular: [S1S2 reg], [no murmur], [positive posterior tibial pulse bilateral], Lungs: [Coarse breath sounds bilateral], [no rhonchi, no rales] , [no accessory muscle use] Abdominal: [soft], [ nontender to palpation], [no guarding], [no appreciable organomegaly], [PEG and Edwards in place] Ext: [no gross muscle atrophy], [no edema], [no contractures] Acute on chronic hypoxic respiratory failure, trach dependent MRSA in sputum UTI Fluid overload likely secondary to acute kidney injury Acute kidney injury on chronic kidney disease Paroxysmal atrial fibrillation Chest x-ray shows worsening changes of congestive heart failure. Possibly related to mucous plugging as well. Plans: Continue Mucomyst. DuoNeb scheduled and as needed for shortness of breath and wheezing. Trach care. Chest physiotherapy. Supplemental oxygen. Follow pulmonology recommendations. Possible colonization, unlikely pneumonia. Plans: Continue cefdinir. Follow ID recommendations. Urine cultures showing Klebsiella pneumonia. Plans: Continue cefdinir. Follow ID recommendations. August 2018 echocardiogram shows EF 50-55%. Chest x-ray showing worsening signs of CHF. Discussed with Cardiology [employer], they do not believe that this is cardiac in nature but rather due to her kidney disease. Plans: Continue Lasix IV. Continue beta lucinda. Strict intake and output. Daily weights. Discussed with Nephrology, appropriate to switch to oral diuretic for discharge today. Creatinine 2.81-2.70. Plans: Continue D5 as per nephro recommendations. Started on IV iron as per nephrology recommendations. Daily BMP. Avoid nephrotoxins. Follow Nephrology recommendations. Plans: Telemetry monitoring. Continue amiodarone. Continue beta lucinda. Warfarin for anticoagulation, maintain INR 2-3. [Patient is admitted for acute on chronic hypoxic respiratory failure likely secondary to fluid overload from acute kidney injury. Currently being diuresed, will transition to oral diuresis today. Cardiology and nephrology consulted. DC today to [facility], discussed with KAILEE. This complex DC took greater than 45 minutes.] Pertinent Studies: Chest x-ray, video swallow Patient Condition at Discharge: Fair Plan - Discharge Summary Discharge Rx Participant: No New Discharge Prescriptions: New Cefdinir Oral Susp [Omnicef Oral Susp] 300 mg PEJ/J-TUBE DAILY #85 ml Clopidogrel [Plavix] 75 mg PEG/G-TUBE DAILY tab Levothyroxine Sodium [Synthroid] 75 mcg PEG/G-TUBE DAILY@0630 tab Torsemide [Demadex] 20 mg PO BID #60 tablet Continue Montelukast [Singulair] 10 mg PO HS Nitroglycerin Sl Tabs [Nitrostat] 0.4 mg SUBLINGUAL Q5M PRN PRN Reason: Chest Pain Fluticasone Nasal [place] [Flonase Nasal [place]] 1 spray EA NOSTRIL DAILY Folic Acid 1 mg PO DAILY Ipratropium-Albuterol Nebulize [Duoneb 0.5 mg-3 mg/3 ml Soln] 3 ml INHALATION RT-Q2H PRN ampul.neb PRN Reason: Shortness Of Breath Or Wheezing Sertraline [Zoloft] 150 mg PO DAILY QUEtiapine [SEROquel] 100 mg PO HS QUEtiapine [SEROquel] 50 mg PO DAILY Pantoprazole Sodium [Protonix] 40 mg PO BID Amiodarone [Cordarone] 200 mg PO DAILY Ondansetron [Zofran ODT] 4 mg PO Q8HR PRN PRN Reason: Nausea Ensure 1 can PO BID INSULIN LISPRO (HumaLOG) [humaLOG] See Protocol SQ ACHS fentaNYL 50MCG/HR PATCH [Duragesic 50MCG/HR] 1 patch TRANSDERM Q72H L. Acidophilus/L.bulgaricus [Floranex Tablet] 1 tab PO AC-BID amLODIPine [Norvasc] 2.5 mg PO DAILY Cholestyramine (with Sugar) [Questran Packet] 4 gm PO BID Atorvastatin [Lipitor] 20 mg PO DAILY ALPRAZolam [Xanax] 0.5 mg PO Q6H PRN PRN Reason: Anxiety Acetylcysteine [Mucomyst 10%] 200 mg INHALATION RT-DAILY PRN PRN Reason: THICK SECRETIONS/PLUGS Acetaminophen Tab [Tylenol] 650 mg PO Q6H PRN PRN Reason: Pain Metoprolol Tartrate [Lopressor] 50 mg PO Q8H Ipratropium-Albuterol Nebulize [Duoneb 0.5 mg-3 mg/3 ml Soln] 3 ml INHALATION RT-TID HYDROcodone/APAP 5-325MG [[place] 5-325] 1 tab PO Q6HR PRN #12 tab PRN Reason: Pain Discharge Medication List Montelukast [Singulair] 10 mg PO HS 12/28/13 [History] Nitroglycerin Sl Tabs [Nitrostat] 0.4 mg SUBLINGUAL Q5M PRN 12/29/13 [History] Fluticasone Nasal [place] [Flonase Nasal [place]] 1 spray EA NOSTRIL DAILY 12/21/17 [History] Folic Acid 1 mg PO DAILY 07/31/18 [History] Ipratropium-Albuterol Nebulize [Duoneb 0.5 mg-3 mg/3 ml Soln] 3 ml INHALATION RT-Q2H PRN ampul.neb 08/25/18 [Rx] ALPRAZolam [Xanax] 0.5 mg PO Q6H PRN 10/27/18 [History] Acetaminophen Tab [Tylenol] 650 mg PO Q6H PRN 10/27/18 [History] Acetylcysteine [Mucomyst 10%] 200 mg INHALATION RT-DAILY PRN 10/27/18 [History] Amiodarone [Cordarone] 200 mg PO DAILY 10/27/18 [History] Atorvastatin [Lipitor] 20 mg PO DAILY 10/27/18 [History] Cholestyramine (with Sugar) [Questran Packet] 4 gm PO BID 10/27/18 [History] Ensure 1 can PO BID 10/27/18 [History] INSULIN LISPRO (HumaLOG) [humaLOG] See Protocol SQ ACHS 10/27/18 [History] Ipratropium-Albuterol Nebulize [Duoneb 0.5 mg-3 mg/3 ml Soln] 3 ml INHALATION RT-TID 10/27/18 [History] L. Acidophilus/L.bulgaricus [Floranex Tablet] 1 tab PO AC-BID 10/27/18 [History] Metoprolol Tartrate [Lopressor] 50 mg PO Q8H 10/27/18 [History] Ondansetron [Zofran ODT] 4 mg PO Q8HR PRN 10/27/18 [History] Pantoprazole Sodium [Protonix] 40 mg PO BID 10/27/18 [History] QUEtiapine [SEROquel] 50 mg PO DAILY 10/27/18 [History] QUEtiapine [SEROquel] 100 mg PO HS 10/27/18 [History] Sertraline [Zoloft] 150 mg PO DAILY 10/27/18 [History] amLODIPine [Norvasc] 2.5 mg PO DAILY 10/27/18 [History] fentaNYL 50MCG/HR PATCH [Duragesic 50MCG/HR] 1 patch TRANSDERM Q72H 10/27/18 [History] Cefdinir Oral Susp [Omnicef Oral Susp] 300 mg PEJ/J-TUBE DAILY #85 ml 11/02/18 [Rx] Clopidogrel [Plavix] 75 mg PEG/G-TUBE DAILY tab 11/02/18 [Rx] HYDROcodone/APAP 5-325MG [[place] 5-325] 1 tab PO Q6HR PRN #12 tab 11/02/18 [Rx] Levothyroxine Sodium [Synthroid] 75 mcg PEG/G-TUBE DAILY@0630 tab 11/02/18 [Rx] Torsemide [Demadex] 20 mg PO BID #60 tablet 11/02/18 [Rx] Follow up Appointment(s)/Referral(s): Xiomara Deleon MD [Primary Care Provider] - 1-2 days Stanislav Sanchez DO [STAFF PHYSICIAN] - 1 Week Ambulatory/Diagnostic Orders: Complete Blood Count w/diff [LAB.AMB] Time Frame: 3 Days, Location: None Selected Comprehensive Metabolic Panel [LAB.AMB] Time Frame: 3 Days, Location: None Selected Activity/Diet/Wound Care/Special Instructions: Diet: Full liquid diet, honey thick liquids, one-to-one supervision with aspiration precautions Follow-up PCP within 1-2 days of discharge. Please obtain CBC and CMP within 3 days of discharge. This is to be followed up with PCP. Please take all medications as advised. Discharge Disposition: TRANSFER TO SNF/ECF
[2018-11-02 12:07] LABS: Anisocytosis Moderate; Basophils % (A) 0 %; Eosinophils # (A) 0.4 k/uL (0-0.7); Eosinophils % (A) 3 %; HCT 30.5 % (34.0-46.0); HGB 9.3 gm/dL (11.4-16.0); Hypochromasia Marked; Lymphocytes # (A) 1.4 k/uL (1.0-4.8); Lymphocytes % (A) 11 %; MCHC 30.6 g/dL (31.0-37.0); MCV 98.1 fL (80.0-100.0); Macrocytosis Moderate; Mean Platelet Volume 7.7; Monocytes # (A) 0.6 k/uL (0-1.0); Monocytes % (A) 5 %; Neutrophils # (A) 9.5 k/uL (1.3-7.7); Neutrophils % (A) 78 %; Platelet Count 345 k/uL (150-450); Poikilocytosis Moderate; RBC 3.11 m/uL (3.80-5.40); RDW 20.7 % (11.5-15.5); WBC 12.2 k/uL (3.8-10.6)
--- NOTE | 2018-11-02 12:10 | P.PN ---
Subjective Patient is seen in follow-up for acute kidney injury on chronic kidney disease. Creatinine peaked at 3.14 this admission and was down to 2.7 as of yesterday. Currently maintained on Lasix 20 mg IV twice daily. She is also receiving tube feeding at goal. She is nonoliguric. Passed swallow evaluation. Agitated at times. Vital signs are stable. General: The patient appeared well nourished and normally developed. HEENT: Head exam is unremarkable. Neck is without jugular venous distension. Tracheostomy noted. LUNGS: Lungs are clear to auscultation and percussion. Breath sounds decreased. HEART: Rate and Rhythm are regular. First and second heart sounds normal. No murmurs, rubs or gallops. ABDOMEN: Abdominal exam reveals normal bowel sounds. Non-tender and non- distended. EXTREMITITES: Trace edema. Objective - Vital Signs Vital signs: Vital Signs Temp 98.4 F 11/02/18 06:59 Pulse 76 11/02/18 11:48 Resp 16 11/02/18 06:59 BP 120/74 11/02/18 06:59 Pulse Ox 93 L 11/02/18 06:59 Intake & Output 11/01/18 11/02/18 11/02/18 18:59 06:59 18:59 Intake Total 260 520 Output Total 2000 Balance 260 -1480 Weight 76.5 kg Intake: Tube Feeding 260 520 Output: Urine 2000 Uretheral (Edwards) 1999 Other: Voiding Method Indwelling Catheter Indwelling Catheter Indwelling Catheter - Labs CBC & Chem 7: 11/02/18 11:49 11/01/18 07:49 Labs: Abnormal Lab Results - Last 24 Hours (Table) 11/01/18 11/01/18 11/02/18 Range/Units 17:09 20:04 11:13 WBC (3.8-10.6) k/uL RBC (3.80-5.40) m/uL Hgb (11.4-16.0) gm/dL Hct (34.0-46.0) % MCHC (31.0-37.0) g/dL RDW (11.5-15.5) % Neutrophils # (1.3-7.7) k/uL POC Glucose (mg/dL) 126 H 136 H 153 H (75-99) mg/dL 11/02/18 Range/Units 11:49 WBC 12.2 H (3.8-10.6) k/uL RBC 3.11 L (3.80-5.40) m/uL Hgb 9.3 L (11.4-16.0) gm/dL Hct 30.5 L (34.0-46.0) % MCHC 30.6 L (31.0-37.0) g/dL RDW 20.7 H (11.5-15.5) % Neutrophils # 9.5 H (1.3-7.7) k/uL POC Glucose (mg/dL) (75-99) mg/dL Microbiology - Last 24 Hours (Table) 10/28/18 05:05 Gram Stain - Final Sputum Sputum Culture - Final Methicillin resist S. aureus Klebsiella pneumoniae 10/27/18 01:00 Blood Culture - Preliminary Blood No Growth after 120 hours 10/28/18 00:48 Blood Culture - Preliminary Blood No Growth after 120 hours Assessment and Plan Plan: Assessment: 1. Acute kidney injury mostly prerenal secondary to diuresis. Creatinine peaked at 3.14 this admission and was down to 2.7 as of yesterday. 2. Rule out chronic kidney disease. It is very likely that the patient has developed chronic kidney disease due to nonrecovered ATN from July 2018. 3. Acute hypoxic respiratory failure secondary to volume overload. 4. Anemia. Likely component of chronic illness. Iron deficiency noted. Also on Aranesp. 5. Metabolic acidosis secondary to acute kidney injury. Better. 6. Recent C. diff. 7. Status post cardiac arrest in July 2018. 8. UTI. Urine culture positive for Klebsiella. 9. Hypokalemia secondary to diuresis. Magnesium replete. S/p replacement. Plan: D/c lasix; start demaxed PO 20 mg bid. Continue to monitor renal function and urine output. Avoid nephrotoxins. Hold antihypertensives for systolic blood pressure less than 120. Monitor bicarb. IV iron 3 doses. Third dose today. Stable for d/c from nephrology standpoint; BMP, mag in 2-3 days; f/u outpatint in 1-2 weeks.
[2018-11-02 12:11] LABS: Potassium 3.5 mmol/L (3.5-5.1)
[2018-11-02 12:20] LABS: INR 1.8 (<1.2)
--- NOTE | 2018-11-02 12:44 | P.PN ---
Subjective This is a pleasant 63-year-old female past medical history significant for coronary artery disease status post and placement to the RCA 2013 and 2015, paroxysmal atrial fibrillation on long-term anti-coagulation with warfarin, pulmonary hypertension, recent MRSA pneumonia, hypoxic respiratory failure, trach dependent, renal failure and toxic metabolic encephalopathy. She recently had a prolonged hospitalization secondary to pneumonia, PEA cardiac arrest and atrial fibrillation. She was at [facility] and was being tr ansferred to the [facility] when there was an apparent episode of hypoxia noted. She was brought to the hospital for further evaluation. She is seen and examined resting comfortably sitting up in bed in no acute distress. She is nonverbal however does shake her head yes or no. EKG reveals sinus mechanism with no acute ST or T wave abnormalities noted. 11/01/2018 Pt is seen and examined sitting up in bed. She is alert and communicating more since last exam. Her is at the bedside and he feels overall this is the best she has looked in the last 3 months. She denies chest pain. She continues t o have intermittent shortness of breath. She is being treated with IV antibiotics, however continues to pull out her IV's. Blood pressure 126/72 heart rate 77 afebrile and maintaining oxygen saturation on trach collar. Laboratory data reviewed, pro-calcitonin 0.32, INR 1.8, sodium 139, potassium 3.4, creatinine 2.7 with a GFR of 18, WBC on 728 was 17.7, hemoglobin on 728 was 8.7. Nephrology is following and recommends Lasix 20 mg IV twice a day as long as she has IV access, otherwise oral is sufficient. GENERAL: This is a 63-year-old female in no apparent distress at the time of my examination. HEENT: Head is atraumatic, normocephalic. Pupils are equal, round. Sclerae anicteric. Conjunctivae are clear. Mucous membranes of the mouth are moist. Neck is supple. There is no jugular venous distention. No carotid bruit is heard. Non-verbal. Trach in place. LUNGS: Clear to auscultation no wheezes, rales or rhonchi. No chest wall tenderness is noted on palpation or with deep breathing. Diminished bilaterally. HEART: Regular rate and rhythm without murmurs, rubs or gallops. S1 and S2 heard. EXTREMITIES: No evidence of peripheral edema and no calf tenderness noted. ASSESSMENT Hypoxic respiratory failure s/p PEA arrest, trach dependence Leukocytosis Pulmonary hypertension Chronic renal failure Paroxysmal atrial fibrillation on custodial anticoagulation with warfarin History of coronary artery disease s/p stent placement to RCA Hypertension Dyslipidemia PLAN Ongoing medical management. Nephrology is diuresing appropriately. No overt heart failure appreciated. Outpatient lasix dosing per nephrology. We will follow as needed. Nurse Practitioner note has been reviewed, I agree with a documented findings and plan of care. Patient was seen and examined. Objective - Vital Signs Vital signs: Vital Signs Temp 98.6 F 11/01/18 14:30 Pulse 77 11/01/18 14:30 Resp 18 11/01/18 14:30 BP 126/72 11/01/18 14:30 Pulse Ox 97 11/01/18 14:30 Intake & Output 10/31/18 11/01/18 11/01/18 18:59 06:59 18:59 Intake Total 320 640 260 Output Total 500 2650 - 260 Weight 73.2 kg 73.5 kg Intake: Tube Feeding 320 640 260 Output: Urine 500 2650 Other: Voiding Method Indwelling Catheter Indwelling Catheter Indwelling Catheter # Voids 2 # Bowel Movements 2 - Labs CBC & Chem 7: 11/02/18 11:49 11/02/18 11:49 Labs: Abnormal Lab Results - Last 24 Hours (Table) 10/31/18 10/31/18 11/01/18 Range/Units 17:07 21:13 07:05 PT (9.0-12.0) sec INR (<1.2) Potassium (3.5-5.1) mmol/L BUN (7-17) mg/dL Creatinine (0.52-1.04) mg/dL Glucose (74-99) mg/dL POC Glucose (mg/dL) 125 H 131 H 134 H (75-99) mg/dL 11/01/18 11/01/18 11/01/18 Range/Units 07:49 07:49 11:41 PT 17.5 H (9.0-12.0) sec INR 1.8 H (<1.2) Potassium 3.4 L (3.5-5.1) mmol/L BUN 81 H (7-17) mg/dL Creatinine 2.70 H (0.52-1.04) mg/dL Glucose 111 H (74-99) mg/dL POC Glucose (mg/dL) 125 H (75-99) mg/dL Microbiology - Last 24 Hours (Table) 10/27/18 01:00 Blood Culture - Preliminary Blood No Growth after 96 hours 10/28/18 00:48 Blood Culture - Preliminary Blood No Growth after 96 hours
--- NOTE | 2018-11-02 13:26 | CDI ---
Documentation Clarification Form Date: 11/02/2018 1:15:02 PM From: Chanelle Nicole CCS, CCDS Admit Date: 10/28/2018 6:56:00 PM Patient Name: Madina Nick Visit Number: [id number] Discharge Date: ATTENTION: The Clinical Documentation Specialists (CDI) and [facility] Coding Staff appreciate your assistance in clarifying documentation. Please respond to the clarification below the line at the bottom and electronically sign. The CDI & [facility] Coding staff will review the response and follow-up if needed. Please note: Queries are made part of the Legal Health Record. If you have any questions, please contact the author of this message via ITS. Dr. Stanislav Sanchez: Per the 11/02 nephrology progress note: "Rule out chronic kidney disease. It is very likely that the patient has developed chronic kidney disease due to non- recovered ATN from July 2018." History/Risk Factors: Hypertension, CHF: chronic diastolic, COPD, Atrial fibrillation, Anemia of chronic disease, GERD, bed bound. Trach dependent with PEG tube. Clinical Indicators: Patient is admitted with acute on chronic hypoxic respiratory failure. Admitted in July & diagnosed with Acute Kidney Injury with ATN. Baseline Creatinine per 10/30 PN: 1.8 - 2.0 in August 2018. BUN: 103^^ - 97^ - 102^^ - 92^ - 81^ - 77^ Creatinine: 2.93^ - 3.14^ - 2.94^ - 2.84 - 2.81^ - 2.70^ - 2.44^ GFR: 16 - 15 - 16 - 17 - 17 - 18 - 20 Treatment: IV fluid 100, INH Albuterol, IV Lasix, IV Rocephin, PEG tube meds. In order to capture the severity of condition, please clarify if the condition signifies: CKD Stage 1 (GFR > 90) CKD Stage 2 (GFR 60-89) CKD Stage 3 (GFR 30-59) CKD Stage 4 (GFR 15-29) CKD Stage 5 (GFR <15) ESRD CKD ruled out Other, please specify Unable to determine (Last Revision: July 2017) unable to determine MTDD
--- NOTE | 2018-11-02 14:54 | PN ---
PROGRESS NOTE DATE OF SERVICE: 11/02/2018 REASON FOR FOLLOWUP: Urinary tract infection and question of pneumonia. INTERVAL HISTORY: The patient is currently afebrile. The patient was seen this morning and has been refusing evaluation or any instruction. No agitation. at bedside. No nausea, vomiting or any diarrhea reported. PHYSICAL EXAMINATION: Blood pressure 120/74 with a pulse of 73, temperature 98.4. She is 93% on room air. General description is a middle-aged female, up in the bed in no distress. Patient refused to be examined. LABS: Hemoglobin is 9.3, white count of 12.2 with 17.7 yesterday with a BUN of 37, creatinine is 2.44. IMPRESSION/PLAN: Patient admitted to the hospital with hypoxemia with possible component of fluid overload, less likely pneumonia, especially with MRSA in the sputum, more likely colonized. The patient improved without getting treatment for the same. In view of response to the Zosyn, recommend Ceftin 500 mg twice a day for about a week to finish a course of therapy. This was discussed with the admitting physician who is working on discharge to the long-term. Continue supportive care. MMODL / IJN: [id number] /
[2018-11-02 17:35] LABS: Glucose,Whole Blood 133 mg/dL (75-99)
[2018-11-02] MEDS: PANTOPRAZOLE SODIUM 40 MG GRANULE PKT PO SCH (17:58)
[2018-11-02] MEDS ORDERED: WARFARIN 0.5 MG TAB PEG/G-TUBE ONE (18:00)
[2018-11-02] MEDS ORDERED: WARFARIN 3 MG TAB PEG/G-TUBE ONE (18:00)
[2018-11-02] MEDS ORDERED: METOPROLOL TARTRATE 50 MG TAB PEG/G-TUBE STA (20:36)
[2018-11-02 21:10] LABS: Glucose,Whole Blood 126 mg/dL (75-99)
[2018-11-02] MEDS: ALPRAZolam 0.5 MG TAB PEG/G-TUBE PRN (21:20)
[2018-11-02] MEDS: MONTELUKAST 10 MG TAB PEG/G-TUBE SCH (21:20)
[2018-11-02] MEDS: QUEtiapine 100 MG TAB PEG/G-TUBE SCH (22:39)
[2018-11-03 01:30] VITALS: TEMP 98.5
[2018-11-03] MEDS: IPRATROPIUM-ALBUTEROL 3 ML NEB INHALATION SCH ×3 (03:00→12:14)
[2018-11-03] MEDS: LEVOTHYROXINE 75 MCG TAB PEG/G-TUBE SCH (05:08)
[2018-11-03 07:06] LABS: Glucose,Whole Blood 116 mg/dL (75-99)
[2018-11-03] MEDS: INSULIN ASPART (NovoLOG) 100 UNIT/ML VIAL SQ SCH ×2 (07:56→12:33)
[2018-11-03] MEDS: amLODIPine 2.5 MG TAB PEG/G-TUBE SCH ×2 (07:58→08:21)
[2018-11-03] MEDS: AMIODARONE 200 MG TAB PEG/G-TUBE SCH (07:59)
[2018-11-03] MEDS: FLUTICASONE 50MCG/SPRAY NASAL 16GM EA NOSTRIL SCH (07:59)
[2018-11-03] MEDS: FUROSEMIDE 10 MG/ML 2 ML VIAL IV SCH (08:01)
[2018-11-03 08:03] VITALS: BP 118/72; RESP 16
[2018-11-03 08:08] LABS: INR 1.9 (<1.2); Prothrombin Time 18.3 sec (9.0-12.0)
[2018-11-03] MEDS: ATORVASTATIN 20 MG TAB PEG/G-TUBE SCH (08:20)
[2018-11-03] MEDS: CEFDINIR ORAL SUSP 1,500 MG/60 ML BOTTLE PEJ/J-Tube SCH (08:20)
[2018-11-03] MEDS: CHOLESTYRAMINE (WITH SUGAR) 4 GM PACKET PEG/G-TUBE SCH (08:21)
[2018-11-03] MEDS: PANTOPRAZOLE SODIUM 40 MG GRANULE PKT PO SCH (08:21)
[2018-11-03] MEDS: CLOPIDOGREL 75 MG TAB PEG/G-TUBE SCH (08:21)
[2018-11-03] MEDS: FOLIC ACID 1 MG TAB PEG/G-TUBE SCH (08:21)
[2018-11-03] MEDS: METOPROLOL TARTRATE 50 MG TAB PEG/G-TUBE SCH ×2 (08:21→08:28)
[2018-11-03] MEDS: SERTRALINE 50 MG TAB PEG/G-TUBE SCH (08:21)
[2018-11-03] MEDS: SODIUM FERRIC GLUCONAT-SUCROSE 125 MG in SODIUM CHLORIDE 0.9% 100 ML IVPB SCH (08:49)
--- NOTE | 2018-11-03 10:57 | P.PN ---
Subjective Patient is seen in follow-up for acute kidney injury on chronic kidney disease. Creatinine peaked at 3.14 this admission and was down to 2.44 as of yesterday. Currently maintained on Lasix 20 mg IV twice daily. She is also receiving tube feeding at goal. She is nonoliguric. Passed swallow evaluation. Scheduled to go to an ECF today. Vital signs are stable. General: The patient appeared well nourished and normally developed. HEENT: Head exam is unremarkable. Neck is without jugular venous distension. Tracheostomy noted. LUNGS: Lungs are clear to auscultation and percussion. Breath sounds decreased. HEART: Rate and Rhythm are regular. First and second heart sounds normal. No murmurs, rubs or gallops. ABDOMEN: Abdominal exam reveals normal bowel sounds. Non-tender and non- distended. EXTREMITITES: Trace edema. Objective - Vital Signs Vital signs: Vital Signs Temp 98.5 F 11/03/18 07:00 Pulse 84 11/03/18 09:21 Resp 16 11/03/18 10:43 BP 118/72 11/03/18 07:00 Pulse Ox 91 L 11/03/18 07:00 Intake & Output 11/02/18 11/03/18 11/03/18 18:59 06:59 18:59 Intake Total 160 Output Total 500 1850 Balance -500 -1850 160 Weight 67 kg Intake: Tube Feeding 160 Output: Urine 500 1850 Uretheral (Edwards) 1400 Other: Voiding Method Indwelling Catheter Indwelling Catheter Indwelling Catheter # Bowel Movements 1 1 - Labs CBC & Chem 7: 11/02/18 11:49 11/02/18 11:49 Labs: Abnormal Lab Results - Last 24 Hours (Table) 11/02/18 11/02/18 11/02/18 Range/Units 11:13 11:49 11:49 WBC (3.8-10.6) k/uL RBC (3.80-5.40) m/uL Hgb (11.4-16.0) gm/dL Hct (34.0-46.0) % MCHC (31.0-37.0) g/dL RDW (11.5-15.5) % Neutrophils # (1.3-7.7) k/uL PT 18.0 H (9.0-12.0) sec INR 1.8 H (<1.2) BUN 77 H (7-17) mg/dL Creatinine 2.44 H (0.52-1.04) mg/dL Glucose 139 H (74-99) mg/dL POC Glucose (mg/dL) 153 H (75-99) mg/dL 11/02/18 11/02/18 11/02/18 Range/Units 11:49 17:24 21:07 WBC 12.2 H (3.8-10.6) k/uL RBC 3.11 L (3.80-5.40) m/uL Hgb 9.3 L (11.4-16.0) gm/dL Hct 30.5 L (34.0-46.0) % MCHC 30.6 L (31.0-37.0) g/dL RDW 20.7 H (11.5-15.5) % Neutrophils # 9.5 H (1.3-7.7) k/uL PT (9.0-12.0) sec INR (<1.2) BUN (7-17) mg/dL Creatinine (0.52-1.04) mg/dL Glucose (74-99) mg/dL POC Glucose (mg/dL) 133 H 126 H (75-99) mg/dL 11/03/18 11/03/18 Range/Units 06:52 07:36 WBC (3.8-10.6) k/uL RBC (3.80-5.40) m/uL Hgb (11.4-16.0) gm/dL Hct (34.0-46.0) % MCHC (31.0-37.0) g/dL RDW (11.5-15.5) % Neutrophils # (1.3-7.7) k/uL PT 18.3 H (9.0-12.0) sec INR 1.9 H (<1.2) BUN (7-17) mg/dL Creatinine (0.52-1.04) mg/dL Glucose (74-99) mg/dL POC Glucose (mg/dL) 116 H (75-99) mg/dL Microbiology - Last 24 Hours (Table) 10/27/18 01:00 Blood Culture - Final Blood No Growth after 144 hours 10/28/18 00:48 Blood Culture - Final Blood No Growth after 144 hours 10/28/18 05:05 Gram Stain - Final Sputum Sputum Culture - Final Methicillin resist S. aureus Klebsiella pneumoniae Assessment and Plan Plan: Assessment: 1. Acute kidney injury mostly prerenal secondary to diuresis. Creatinine peaked at 3.14 this admission and was down to 2.44 as of yesterday. 2. Rule out chronic kidney disease. It is very likely that the patient has developed chronic kidney disease due to nonrecovered ATN from July 2018. 3. Acute hypoxic respiratory failure secondary to volume overload. 4. Anemia. Likely component of chronic illness. Iron deficiency noted -status post 3 doses of IV iron. Also on Aranesp. 5. Metabolic acidosis secondary to acute kidney injury. Better. 6. Recent C. diff. 7. Status post cardiac arrest in July 2018. 8. UTI. Urine culture positive for Klebsiella. 9. Hypokalemia secondary to diuresis. Magnesium replete. S/p replacement. Plan: Demadex 20 mg orally twice daily upon discharge. Continue to monitor renal function and urine output. Avoid nephrotoxins. Hold antihypertensives for systolic blood pressure less than 120.. Stable for d/c from nephrology standpoint; BMP, mag in 2-3 days; f/u outpatint in 1-2 weeks.
[2018-11-03 11:26] LABS: Glucose,Whole Blood 120 mg/dL (75-99)
[2018-11-03 12:16] VITALS: PULSE 88
--- NOTE | 2018-11-03 12:26 | PN ---
PROGRESS NOTE DATE OF SERVICE: 11/03/2018 REASON FOR FOLLOWUP: UTI and possible pneumonia. INTERVAL HISTORY: The patient is currently afebrile. Patient has been breathing comfortably. She is more appropriate today and no agitation has been notice. at the bedside. No nausea, vomiting. Tolerating her tube feeds. No diarrhea reported. PHYSICAL EXAMINATION: Blood pressure 118/72 with a pulse of 79, temperature 98.5, she is 91% on trach collar. General description is a middle-aged female, up in the bed in no distress. RESPIRATORY SYSTEM: Unlabored breathing with decreased breath sounds at the bases. HEART: S1, S2. Regular rate and rhythm. ABDOMEN: Soft, no tenderness. LABS: No new labs have been obtained today. Urine has been Klebsiella pneumoniae, Klebsiella and MRSA. DIAGNOSTIC IMPRESSION AND PLAN: 1. Patient with methicillin-resistant Staphylococcus aureus, positive sputum culture, more likely colonization as the patient's chest x-ray was more a congestive heart failure pattern and the patient clinically improved without getting treatment for MRSA. 2. Patient with Klebsiella pneumoniae urinary tract infection, currently on oral Ceftin to continue for about a week to finish a course of therapy. Plan of care was discussed with the discharging physician. MMASPENL / IJN: [id number] /
[2018-11-03] MEDS: DEXTROSE 5% IN WATER 1,000 ML IV SCH (12:34)
--- NOTE | 2018-11-03 13:21 | P.PN ---
Subjective Progress Note Date: 11/03/18 (Delayed charting seen at 11:00) Principal diagnosis: low oxygen levels Patient is a 63-year-old female with a complicated past medical history. She was here several months ago with MRSA sepsis with multiorgan failure and cardiopulmonary arrest requiring intubation, and trach, and BEHZAD requiring HD. She's been residing at [facility] where she was treated for C. diff. She was being transported [facility] and [facility]. She developed an episode of hypoxemia, likely related to mucous plugging. EMS then ran out of oxygen she was subsequently brought here and admitted. Her vital signs were within normal limits on arrival. Initial labo ratory analysis showed white blood cell count of 14.6, hemoglobin 8.2, platelet count 251, BUN 103, and creatinine 2.93. Urinalysis was consistent with urinary tract infection the likely represents chronic colonization. Chest x-ray showed persistent moderate interstitial edema and marked cardiomegaly. Sputum culture is growing multi organisms. Patient has been seen by pulmonary, nephrology, and cardiology. Found to have MRSA in the sputum, suspect tracheobronchitis. Started on vancomycin. Consult ID. Patient already has PICC line in place. MRSA felt to be contaminant and likely due to colonization. Not reflect a true pneumonia. Patient was transitioned to oral antibiotics and felt to be safe for discharge. Patient's discharge was initially placed on 11/[address] Fuentes. However insurance auth still pending at that time. Discharge summary is still accurate reflection and will not be recompleted at this time. Patient seen and examined at bedside. Does not speak to me today but she had noted being in pain or short of breath. present at bedside and updated on plan of care and is in agreement. Objective - Vital Signs Vital signs: Vital Signs Temp 98.5 F 11/03/18 07:00 Pulse 88 11/03/18 12:29 Resp 16 11/03/18 10:43 BP 118/72 11/03/18 07:00 Pulse Ox 91 L 11/03/18 07:00 Intake & Output 11/02/18 11/03/18 11/03/18 18:59 06:59 18:59 Intake Total 320 Output Total 500 1850 Balance -500 -1850 320 Weight 67 kg Intake: Tube Feeding 320 Output: Urine 500 1850 Uretheral (Edwards) 1400 Other: Voiding Method Indwelling Catheter Indwelling Catheter Indwelling Catheter # Bowel Movements 1 1 - Exam General: Ill-appearing, no distress, appears older than stated age, normal weight Derm: Multiple areas of ecchymosis, warm, dry Head: atraumatic, normocephalic, symmetric Eyes: EOMI, no lid lag, anicteric sclera, pupils equal round reactive to light ENT: Nose and ears atraumatic, no thrush, no pharyngeal erythema Neck:+ trach in place with speaking valve, supple Mouth: no lip lesion, mucus membranes dry Cardiovascular: S1S2 reg, no murmur, positive posterior tibial pulse bilateral, no edema, capillary refill less than 2 seconds Lungs: course breath sounds , no accessory muscle use Abdominal: soft, nontender to palpation, no guarding, no appreciable organomegaly, normal bowel sounds PEG tube in place, Edwards catheter in place Psych: Alert, awake, appears angry - Labs CBC & Chem 7: 11/02/18 11:49 11/02/18 11:49 Labs: Abnormal Lab Results - Last 24 Hours (Table) 11/02/18 11/02/18 11/03/18 Range/Units 17:24 21:07 06:52 PT (9.0-12.0) sec INR (<1.2) POC Glucose (mg/dL) 133 H 126 H 116 H (75-99) mg/dL 11/03/18 11/03/18 Range/Units 07:36 11:24 PT 18.3 H (9.0-12.0) sec INR 1.9 H (<1.2) POC Glucose (mg/dL) 120 H (75-99) mg/dL Microbiology - Last 24 Hours (Table) 10/27/18 01:00 Blood Culture - Final Blood No Growth after 144 hours 10/28/18 00:48 Blood Culture - Final Blood No Growth after 144 hours Assessment and Plan Assessment: Acute on chronic hypoxic respiratory failure, trach dependent MRSA in sputum, colonization Acute exacerbation of diastolic congestive heart failure, on oral diuretics BEHZAD on CKD, Paroxysmal atrial fibrillation on Coumadin Leukocytosis Chronic anemia status post 2 units of blood transfusion in August 2018 Trach dependent Status post aborted sudden cardiac PEG tube on tube feedings-Nepro 45 mL/h Recent history of C. diff completed course of vancomycin on 10/26/18 Hypothyroidism Hypertension COPD without exacerbation Plan: Insurance authorization has been obtained from [facility], alvaro medication reconciliation will need Ceftin ear 7 more days, repeat CBC and BMP in 3-5 days, and PT/INR daily. Fentanyl and Xanax prescriptions printed. This was updated on discharge instructions. Discharge order in place.
[2018-11-03] MEDS ORDERED: WARFARIN 3 MG TAB PEG/G-TUBE ONE (18:00)
[2018-11-03] MEDS ORDERED: WARFARIN 0.5 MG TAB PEG/G-TUBE ONE (18:00)
== END 2018-11-03 15:15 | DRG 189 ==
LOC: EC 18:07 → 4SSUR 20:24 → INTOOBSV 20:24 → 4SSUR 21:01 → OBSVTOIN 10-28 18:56
PROVIDERS: ADMIT Internal Medicine; ATTEND Internal Medicine
DX: J96.21 Acute and chronic respiratory failure with hypoxia (principal); I50.33 Acute on chronic diastolic (congestive) heart failure; N17.0 Acute kidney failure with tubular necrosis; E87.2 Acidosis; I13.0 Hypertensive heart and chronic kidney disease with heart failure and stage 1 through stage 4 chronic kidney disease, or unspecified chronic kidney disease; N39.0 Urinary tract infection, site not specified; Z99.11 Dependence on respirator [ventilator] status; E87.0 Hyperosmolality and hypernatremia; B96.1 Klebsiella pneumoniae [K. pneumoniae] as the cause of diseases classified elsewhere; D64.9 Anemia, unspecified; E03.9 Hypothyroidism, unspecified; E61.1 Iron deficiency; E78.5 Hyperlipidemia, unspecified; E87.6 Hypokalemia; F31.9 Bipolar disorder, unspecified; F41.9 Anxiety disorder, unspecified; G89.4 Chronic pain syndrome; I07.1 Rheumatic tricuspid insufficiency; I25.10 Atherosclerotic heart disease of native coronary artery without angina pectoris; I27.20 Pulmonary hypertension, unspecified; I48.0 Paroxysmal atrial fibrillation; K21.9 Gastro-esophageal reflux disease without esophagitis; N18.9 Chronic kidney disease, unspecified; T17.990A Other foreign object in respiratory tract, part unspecified in causing asphyxiation, initial encounter; T50.2X5A Adverse effect of carbonic-anhydrase inhibitors, benzothiadiazides and other diuretics, initial encounter; Z79.01 Long term (current) use of anticoagulants; Z79.899 Other long term (current) drug therapy; Z80.9 Family history of malignant neoplasm, unspecified; Z86.718 Personal history of other venous thrombosis and embolism; Z86.73 Personal history of transient ischemic attack (TIA), and cerebral infarction without residual deficits; Z86.74 Personal history of sudden cardiac arrest; Z87.891 Personal history of nicotine dependence; Z90.710 Acquired absence of both cervix and uterus; Z93.0 Tracheostomy status; Z93.1 Gastrostomy status; Z95.5 Presence of coronary angioplasty implant and graft; Z88.1 Allergy status to other antibiotic agents; Z88.2 Allergy status to sulfonamides; Z88.8 Allergy status to other drugs, medicaments and biological substances; J44.9 Chronic obstructive pulmonary disease, unspecified
CPT/HCPCS: 36415; 71045; 74230; 80048; 80053; 81001; 82550; 82565; 82728; 83540; 83550; 83735; 83880; 84145; 84484; 85025; 85027; 85610; 85730; 87040; 87070; 87077; 87086; 87186; 87205; 93005; 94640; 94668; 94760; 99285

== ENCOUNTER 2018-11-03 20:14 | Emergency (ER) | payer OTHER ==
[2018-11-03] MEDS ORDERED: SODIUM CHLORIDE 0.9% 500 ML 500 ML IV STA (20:47)
[2018-11-03 21:07] LABS: Anisocytosis Moderate; Basophils % (A) 0 %; Eosinophils # (A) 0.7 k/uL (0-0.7); Eosinophils % (A) 5 %; HCT 33.3 % (34.0-46.0); HGB 10.6 gm/dL (11.4-16.0); Hypochromasia Moderate; Lymphocytes # (A) 1.9 k/uL (1.0-4.8); Lymphocytes % (A) 15 %; MCH 30.6 pg (25.0-35.0); MCV 95.7 fL (80.0-100.0); Macrocytosis Slight; Mean Platelet Volume 7.5; Monocytes # (A) 0.6 k/uL (0-1.0); Monocytes % (A) 4 %; Neutrophils # (A) 9.6 k/uL (1.3-7.7); Neutrophils % (A) 73 %; Platelet Count 416 k/uL (150-450); Poikilocytosis Moderate; RBC 3.48 m/uL (3.80-5.40); RDW 20.5 % (11.5-15.5); WBC 13.1 k/uL (3.8-10.6)
[2018-11-03 21:17] LABS: INR 1.7 (<1.2); Partial Thromboplastin Time 34.7 sec (22.0-30.0); Prothrombin Time 16.9 sec (9.0-12.0)
[2018-11-03 21:18] LABS: Albumin 3.7 g/dL (3.5-5.0); Calcium 9.3 mg/dL (8.4-10.2); Potassium 3.6 mmol/L (3.5-5.1); Total Bilirubin 0.5 mg/dL (0.2-1.3)
[2018-11-03 21:20] LABS: Appearance,Urine Cloudy (Clear); Bacteria,Urine Moderate /hpf; Bilirubin,Urine Negative (Negative); Blood,Urine Large (Negative); Color,Urine Light Red; Glucose,Urine (UA) Negative (Negative); Ketones,Urine Negative (Negative); Leukocyte Esterase,Urine Large (Negative); Mucus,Urine Rare /hpf; Nitrite,Urine Negative (Negative); Protein,Urine 1+ (Negative); RBC,Urine >182 /hpf (0-5); Specific Gravity,Urine 1.006 (1.001-1.035); Urobilinogen,Urine <2.0 mg/dL (<2.0); WBC,Urine 101 /hpf (0-5)
[2018-11-03] MEDS ORDERED: ALPRAZolam 0.5 MG TAB PO STA (21:35)
--- NOTE | 2018-11-03 21:56 | XR ---
EXAMINATION: XR chest 2V DATE AND TIME: 11/03/2018 9:49 PM CLINICAL INDICATION: PHH; difficulty breathing TECHNIQUE: Departmental protocol COMPARISON: 11/01/2018 FINDINGS: Tracheostomy unchanged. Marked silhouetting of the pulmonary vasculature is again seen, similar to the prior study and likely representing advanced interstitial phase pulmonary edema with areas of coalescent opacity representi ng either alveolar space pulmonary edema versus pneumonia. Pleural spaces: Small right pleural effusion evidence is redemonstrated. No pneumothorax. Markedly enlarged cardiac silhouette unchanged. IMPRESSION: Overall lung inflation pattern similar to the prior study. No new abnormality.
[2018-11-03 22:17] VITALS: RESP 20
--- NOTE | 2018-11-03 22:30 | CT ---
EXAMINATION: CT brain wo con DATE AND TIME: 11/03/2018 9:56 PM CLINICAL INDICATION: PHH; combative behavior TECHNIQUE: Standard departmental protocol.; 1135.4; COMPARISON: 08/10/2018 FINDINGS: The calvarium is intact. There is no intracranial hemorrhage. There is no intracranial mass or mass effect. No definite new intra-axial or extra-axial attenuation defect. The paranasal sinuses, middle ear cavities, and mastoid sinus air cells are clear. The orbits are unremarkable. IMPRESSION: NO ACUTE PROCESS.
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
[2018-11-03] MEDS ORDERED: IPRATROPIUM-ALBUTEROL 3 ML NEB INHALATION STA (23:18)
[2018-11-03 23:41] VITALS: BP 131/94; PULSE 78; TEMP 98.1
== END 2018-11-03 23:42 | disposition home or self-care (01) ==
LOC: EC 20:14
DX: D64.9 Anemia, unspecified (principal); J90 Pleural effusion, not elsewhere classified; D72.829 Elevated white blood cell count, unspecified; R45.1 Restlessness and agitation; R74.8 Abnormal levels of other serum enzymes; R79.89 Other specified abnormal findings of blood chemistry; N39.0 Urinary tract infection, site not specified; J96.11 Chronic respiratory failure with hypoxia; J44.9 Chronic obstructive pulmonary disease, unspecified; I11.0 Hypertensive heart disease with heart failure; I50.9 Heart failure, unspecified; I48.91 Unspecified atrial fibrillation; K21.9 Gastro-esophageal reflux disease without esophagitis; E78.5 Hyperlipidemia, unspecified; F41.9 Anxiety disorder, unspecified; F31.9 Bipolar disorder, unspecified; Z79.51 Long term (current) use of inhaled steroids; Z79.4 Long term (current) use of insulin; Z79.899 Other long term (current) drug therapy; Z88.1 Allergy status to other antibiotic agents; Z88.2 Allergy status to sulfonamides; Z88.8 Allergy status to other drugs, medicaments and biological substances; Z95.5 Presence of coronary angioplasty implant and graft; Z86.73 Personal history of transient ischemic attack (TIA), and cerebral infarction without residual deficits; Z86.718 Personal history of other venous thrombosis and embolism; Z87.891 Personal history of nicotine dependence; Z93.1 Gastrostomy status
CPT/HCPCS: 36415; 70450; 71046; 80053; 81001; 82140; 84484; 85025; 85610; 85730; 93005; 94640; 99285

== ENCOUNTER 2018-11-04 03:45 | Emergency (ER) | payer OTHER ==
[2018-11-04 03:57] VITALS: RESP 16; TEMP 97.8
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
[2018-11-04 06:44] VITALS: BP 143/87; PULSE 73
== END 2018-11-04 07:26 | disposition home or self-care (01) ==
LOC: EC 03:45
DX: Z04.3 Encounter for examination and observation following other accident (principal); R09.89 Other specified symptoms and signs involving the circulatory and respiratory systems; J44.9 Chronic obstructive pulmonary disease, unspecified; K21.9 Gastro-esophageal reflux disease without esophagitis; E78.5 Hyperlipidemia, unspecified; I10 Essential (primary) hypertension; F31.9 Bipolar disorder, unspecified; F41.9 Anxiety disorder, unspecified; Z87.891 Personal history of nicotine dependence; Z88.1 Allergy status to other antibiotic agents; Z88.2 Allergy status to sulfonamides; Z88.8 Allergy status to other drugs, medicaments and biological substances; Z79.4 Long term (current) use of insulin; Z79.51 Long term (current) use of inhaled steroids; Z79.899 Other long term (current) drug therapy; Z86.73 Personal history of transient ischemic attack (TIA), and cerebral infarction without residual deficits; Z87.01 Personal history of pneumonia (recurrent); Z86.14 Personal history of Methicillin resistant Staphylococcus aureus infection; Z95.5 Presence of coronary angioplasty implant and graft; W01.0XXA Fall on same level from slipping, tripping and stumbling without subsequent striking against object, initial encounter; Y92.129 Unspecified place in nursing home as the place of occurrence of the external cause
CPT/HCPCS: 99283

== ENCOUNTER 2018-11-18 11:59 | Inpatient (IN) | payer OTHER ==
[2018-11-18] MEDS ORDERED: methylPREDNISolone SOD SUCCI 125 MG/2 ML VIAL IV STA (12:11)
[2018-11-18] MEDS ORDERED: IPRATROPIUM 0.5 MG/2.5 ML NEBU INHALATION STA (12:11)
[2018-11-18] MEDS ORDERED: ALBUTEROL NEBULIZED 2.5 MG/3 ML INHALATION STA (12:11)
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
[2018-11-18 12:40] LABS: Anisocytosis Slight; Basophils # (A) 0.1 k/uL (0-0.2); Basophils % (A) 0 %; Eosinophils # (A) 0.1 k/uL (0-0.7); Eosinophils % (A) 0 %; Lymphocytes # (A) 1.2 k/uL (1.0-4.8); Lymphocytes % (A) 4 %; MCH 29.9 pg (25.0-35.0); MCHC 32.3 g/dL (31.0-37.0); MCV 92.6 fL (80.0-100.0); Monocytes # (A) 0.8 k/uL (0-1.0); Monocytes % (A) 3 %; Neutrophils % (A) 92 %; Platelet Count 363 k/uL (150-450); Poikilocytosis Slight; RDW 17.1 % (11.5-15.5); WBC 28.3 k/uL (3.8-10.6)
--- NOTE | 2018-11-18 12:46 | XR ---
EXAMINATION TYPE: XR chest 1V DATE OF EXAM: 11/18/2018 COMPARISON: Prior chest x-ray 11/03/2018 HISTORY: Difficulty breathing TECHNIQUE: Single frontal view of the chest is obtained. FINDINGS: Patient is rotated. Tracheostomy tube is overlying the tracheal air column. No pneumothora x or pleural effusion evident. Heart size is increased. Interstitium is prominent as on prior exam. IMPRESSION: Findings are similar to prior exam. Correlate for possible pulmonary venous hypertension and interstitial edema.
[2018-11-18 12:49] LABS: INR 2.5 (<1.2); Partial Thromboplastin Time 33.8 sec (22.0-30.0); Prothrombin Time 24.1 sec (9.0-12.0)
[2018-11-18 12:53] LABS: ALT 126 U/L (9-52); AST 145 U/L (14-36); African American GFR (CKD) 25 (>60 ml/min/1.73 sqM); Albumin 3.9 g/dL (3.5-5.0); Alkaline Phosphatase 177 U/L (38-126); Anion Gap 16 mmol/L; Blood Urea Nitrogen 88 mg/dL (7-17); Calcium 9.8 mg/dL (8.4-10.2); Carbon Dioxide 22 mmol/L (22-30); Chloride 98 mmol/L (98-107); Creatine Kinase <20 U/L (30-135); Glucose 125 mg/dL (74-99); Magnesium 1.7 mg/dL (1.6-2.3); Potassium 3.8 mmol/L (3.5-5.1); Sodium 136 mmol/L (137-145); Total Bilirubin 0.4 mg/dL (0.2-1.3); Total Protein 9.2 g/dL (6.3-8.2)
[2018-11-18 13:13] LABS: Toxic Granulation Present
[2018-11-18] MEDS ORDERED: PIPERACILLIN-TAZOBACTAM 3.375 GM in SODIUM CHLORIDE 0.9% 100 ML IVPB STA (13:37)
[2018-11-18 14:24] LABS: Appearance,Urine Cloudy (Clear); Bacteria,Urine Many /hpf; Bilirubin,Urine Negative (Negative); Blood,Urine Large (Negative); Color,Urine Light Red; Glucose,Urine (UA) Negative (Negative); Ketones,Urine Negative (Negative); Leukocyte Esterase,Urine Large (Negative); Mucus,Urine Rare /hpf; Nitrite,Urine Negative (Negative); PH, Urine 5.5 (5.0-8.0); Protein,Urine 1+ (Negative); RBC,Urine >182 /hpf (0-5); Specific Gravity,Urine 1.012 (1.001-1.035); Urobilinogen,Urine <2.0 mg/dL (<2.0)
[2018-11-18] MEDS: SODIUM CHLORIDE 0.9% 500 ML 500 ML IV SCH (15:41)
[2018-11-18] MEDS: SODIUM CHLORIDE 0.9% 1,000 ML IV SCH ×2 (15:43→22:17)
[2018-11-18] MEDS: HYDROcodone/APAP 5-325MG 1 EACH TAB PEG/G-TUBE PRN (22:18)
[2018-11-18] MEDS: QUEtiapine 100 MG TAB PEG/G-TUBE SCH (22:20)
[2018-11-18] MEDS ORDERED: PROMETHAZINE 25 MG TAB PEG/G-TUBE PRN (22:38)
[2018-11-18] MEDS ORDERED: WARFARIN 2.5 MG TAB PO ONE (22:45)
[2018-11-19] MEDS: PIPERACILLIN-TAZOBACTAM 3.375 GM in SODIUM CHLORIDE 0.9% 100 ML IVPB SCH ×3 (00:02→16:39)
[2018-11-19] MEDS: SODIUM CHLORIDE 0.9% 1,000 ML IV SCH ×3 (05:14→16:40)
[2018-11-19] MEDS: INSULIN ASPART (NovoLOG) 100 UNIT/ML VIAL SQ SCH ×4 (07:37→21:31)
[2018-11-19 07:38] LABS: Glucose,Whole Blood 117 mg/dL (75-99)
[2018-11-19] MEDS: IPRATROPIUM-ALBUTEROL 3 ML NEB INHALATION SCH ×3 (07:57→19:16)
[2018-11-19] MEDS ORDERED: ENOXAPARIN 40 MG/0.4 ML SYRINGE SQ SCH (09:00)
[2018-11-19 11:41] LABS: Glucose,Whole Blood 100 mg/dL (75-99)
[2018-11-19 12:45] LABS: INR 3.4 (<1.2); Prothrombin Time 33.1 sec (9.0-12.0)
[2018-11-19] MEDS: ONDANSETRON 4 MG/2 ML VIAL IVP PRN ×2 (13:04→20:54)
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
[2018-11-19] MEDS ORDERED: ACETYLCYSTEINE MISCELLANE PRN (14:10)
[2018-11-19] MEDS: LINEZOLID 600 MG in DEXTROSE/WATER 1 300ML.BAG IVPB SCH (14:20)
[2018-11-19] MEDS: AMIODARONE 200 MG TAB PEG/G-TUBE SCH (14:50)
[2018-11-19] MEDS: METOPROLOL TARTRATE 50 MG TAB PEG/G-TUBE SCH ×2 (14:50→21:30)
[2018-11-19] MEDS: TORSEMIDE 20 MG TAB PEG/G-TUBE SCH (14:50)
[2018-11-19] MEDS: CLOPIDOGREL 75 MG TAB PEG/G-TUBE SCH (14:50)
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
[2018-11-19] MEDS: PANTOPRAZOLE 40 MG TABLET PO SCH (16:31)
[2018-11-19] MEDS: HYDROcodone/APAP 5-325MG 1 EACH TAB PEG/G-TUBE PRN ×2 (16:39→21:30)
[2018-11-19 17:05] LABS: Glucose,Whole Blood 91 mg/dL (75-99)
[2018-11-19] MEDS ORDERED: WARFARIN 0.5 MG TAB PO ONE (18:00)
[2018-11-19 20:46] LABS: Glucose,Whole Blood 98 mg/dL (75-99)
[2018-11-19] MEDS: ALPRAZolam 0.5 MG TAB PEG/G-TUBE PRN (21:30)
[2018-11-19] MEDS: MONTELUKAST 10 MG TAB PEG/G-TUBE SCH (21:30)
[2018-11-19] MEDS: ATORVASTATIN 20 MG TAB PEG/G-TUBE SCH (21:30)
[2018-11-19] MEDS: QUEtiapine 100 MG TAB PEG/G-TUBE SCH (21:30)
[2018-11-19] MEDS: CHOLESTYRAMINE (WITH SUGAR) 4 GM PACKET PEG/G-TUBE SCH (21:31)
[2018-11-20] MEDS: PIPERACILLIN-TAZOBACTAM 3.375 GM in SODIUM CHLORIDE 0.9% 100 ML IVPB SCH ×4 (00:05→23:27)
[2018-11-20] MEDS: LINEZOLID 600 MG in DEXTROSE/WATER 1 300ML.BAG IVPB SCH ×3 (00:05→23:28)
[2018-11-20] MEDS: SODIUM CHLORIDE 0.9% 1,000 ML IV SCH ×4 (02:25→23:28)
[2018-11-20] MEDS: HYDROcodone/APAP 5-325MG 1 EACH TAB PEG/G-TUBE PRN ×4 (03:11→23:31)
[2018-11-20] MEDS: ONDANSETRON 4 MG/2 ML VIAL IVP PRN (04:18)
[2018-11-20] MEDS: PANTOPRAZOLE 40 MG TABLET PO SCH ×3 (05:56→15:05)
[2018-11-20] MEDS: METOPROLOL TARTRATE 50 MG TAB PEG/G-TUBE SCH ×3 (06:02→23:28)
[2018-11-20] MEDS: LEVOTHYROXINE 75 MCG TAB PEG/G-TUBE SCH (06:02)
[2018-11-20 06:34] LABS: INR 4.5 (<1.2); Prothrombin Time 42.9 sec (9.0-12.0)
[2018-11-20 06:36] LABS: Glucose,Whole Blood 99 mg/dL (75-99)
[2018-11-20 06:37] LABS: Anisocytosis Slight; Basophils % (A) 0 %; Eosinophils # (A) 0.1 k/uL (0-0.7); Eosinophils % (A) 1 %; HCT 29.7 % (34.0-46.0); Hypochromasia Slight; Lymphocytes % (A) 12 %; MCH 30.5 pg (25.0-35.0); MCHC 32.1 g/dL (31.0-37.0); MCV 94.7 fL (80.0-100.0); Mean Platelet Volume 7.1; Monocytes % (A) 6 %; Neutrophils % (A) 81 %; Platelet Count 338 k/uL (150-450); Poikilocytosis Slight; RBC 3.14 m/uL (3.80-5.40); RDW 17.4 % (11.5-15.5); WBC 17.3 k/uL (3.8-10.6)
[2018-11-20 06:41] LABS: HGB 9.5 gm/dL (11.4-16.0)
[2018-11-20 06:42] LABS: Calcium 8.2 mg/dL (8.4-10.2); Potassium 3.4 mmol/L (3.5-5.1)
[2018-11-20] MEDS ORDERED: SERTRALINE 100 MG TAB PEG/G-TUBE SCH (09:00)
[2018-11-20] MEDS: IPRATROPIUM-ALBUTEROL 3 ML NEB INHALATION SCH ×3 (09:04→20:43)
[2018-11-20] MEDS: INSULIN ASPART (NovoLOG) 100 UNIT/ML VIAL SQ SCH ×3 (09:44→17:53)
[2018-11-20] MEDS: FOLIC ACID 1 MG TAB PEG/G-TUBE SCH (09:56)
[2018-11-20] MEDS: CLOPIDOGREL 75 MG TAB PEG/G-TUBE SCH (09:56)
[2018-11-20] MEDS: TORSEMIDE 20 MG TAB PEG/G-TUBE SCH ×2 (09:56→15:07)
[2018-11-20] MEDS: AMIODARONE 200 MG TAB PEG/G-TUBE SCH (09:56)
[2018-11-20] MEDS: FLUTICASONE 50MCG/SPRAY NASAL 16GM EA NOSTRIL SCH (09:57)
[2018-11-20] MEDS: CHOLESTYRAMINE (WITH SUGAR) 4 GM PACKET PEG/G-TUBE SCH ×2 (11:56→20:09)
[2018-11-20 12:17] LABS: Glucose,Whole Blood 106 mg/dL (75-99)
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
[2018-11-20] MEDS ORDERED: POTASSIUM CHLORIDE ER 20 MEQ TAB.ER PO STA (15:10)
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
[2018-11-20 17:50] LABS: Glucose,Whole Blood 93 mg/dL (75-99)
[2018-11-20] MEDS ORDERED: WARFARIN 0.5 MG TAB PO ONE (18:00)
[2018-11-20] MEDS: ATORVASTATIN 20 MG TAB PEG/G-TUBE SCH (20:09)
[2018-11-20] MEDS: MONTELUKAST 10 MG TAB PEG/G-TUBE SCH (20:09)
[2018-11-20] MEDS: QUEtiapine 100 MG TAB PEG/G-TUBE SCH (20:09)
[2018-11-20] MEDS: ALPRAZolam 0.5 MG TAB PEG/G-TUBE PRN (20:16)
[2018-11-20 20:32] LABS: Glucose,Whole Blood 110 mg/dL (75-99)
--- NOTE | 2018-11-20 20:41 | PN ---
PROGRESS NOTE DATE OF SERVICE: 11/20/2018. REASON FOR FOLLOWUP: UTI and possible pneumonia. INTERVAL HISTORY: The patient is currently afebrile. Patient is breathing more comfortably. The patient overall respiratory secretion has decreased intensity and mentioned not requiring as frequent of suctioning as of yesterday. No nausea, no vomiting. No abdominal pain. Her Edwards catheter has been discontinued at this point. Denies any urinary symptoms at this point and no diarrhea. PHYSICAL EXAMINATION: Blood pressure 113/54 with a pulse of 68, temperature 98.2. She is 95% on trach collar. General description is a middle-aged female up in the bed in no distress. Respiratory system: Unlabored breathing with decreased breath sounds in the bases. Heart S1, S2. Regular rate and rhythm. ABDOMEN: Soft, no tenderness. LABS: Hemoglobin 9.5, white count 17.3. Creatinine is down to 2.15. Stool for C difficile is negative. Urine showing a gram-negative bacilli. Sputum culture pending. Blood cultures no growth. DIAGNOSTIC IMPRESSION AND PLAN: Patient admitted to the hospital with difficulty in breathing in this patient who did have a significantly elevated white count with concern for possible cath versus urinary tract infection and pneumonia. The patient is currently covered with Zosyn and Zyvox to continue while waiting for the culture to finalize. Continue supportive care. MMODL / IJN: [id number] /
[2018-11-21] MEDS: INSULIN ASPART (NovoLOG) 100 UNIT/ML VIAL SQ SCH ×5 (00:43→22:22)
[2018-11-21] MEDS: ACETAMINOPHEN TAB 325 MG TAB PEG/G-TUBE PRN ×2 (04:00→11:32)
[2018-11-21] MEDS: SODIUM CHLORIDE 0.9% 1,000 ML IV SCH ×4 (04:54→22:46)
[2018-11-21 06:19] LABS: Glucose,Whole Blood 112 mg/dL (75-99)
[2018-11-21] MEDS: PANTOPRAZOLE 40 MG TABLET PO SCH ×3 (07:16→17:56)
[2018-11-21] MEDS: LEVOTHYROXINE 75 MCG TAB PEG/G-TUBE SCH (07:17)
[2018-11-21] MEDS: METOPROLOL TARTRATE 50 MG TAB PEG/G-TUBE SCH ×3 (07:17→20:54)
[2018-11-21 07:18] LABS: Anisocytosis Slight; Basophils % (A) 0 %; Eosinophils # (A) 0.4 k/uL (0-0.7); Eosinophils % (A) 3 %; HCT 30.7 % (34.0-46.0); HGB 9.7 gm/dL (11.4-16.0); Hypochromasia Moderate; Lymphocytes # (A) 1.8 k/uL (1.0-4.8); Lymphocytes % (A) 13 %; MCH 30.4 pg (25.0-35.0); MCHC 31.7 g/dL (31.0-37.0); Macrocytosis Slight; Mean Platelet Volume 7.6; Monocytes # (A) 0.6 k/uL (0-1.0); Monocytes % (A) 4 %; Neutrophils # (A) 11.6 k/uL (1.3-7.7); Neutrophils % (A) 79 %; Platelet Count 337 k/uL (150-450); Poikilocytosis Slight; RDW 17.7 % (11.5-15.5); WBC 14.6 k/uL (3.8-10.6)
[2018-11-21 07:27] LABS: Calcium 8.1 mg/dL (8.4-10.2); INR 2.6 (<1.2); Potassium 3.1 mmol/L (3.5-5.1); Prothrombin Time 25.5 sec (9.0-12.0)
[2018-11-21] MEDS: TORSEMIDE 20 MG TAB PEG/G-TUBE SCH ×2 (08:04→15:32)
[2018-11-21] MEDS: CLOPIDOGREL 75 MG TAB PEG/G-TUBE SCH (08:04)
[2018-11-21] MEDS: FOLIC ACID 1 MG TAB PEG/G-TUBE SCH (08:04)
[2018-11-21] MEDS: HYDROcodone/APAP 5-325MG 1 EACH TAB PEG/G-TUBE PRN ×3 (08:04→20:54)
[2018-11-21] MEDS: AMIODARONE 200 MG TAB PEG/G-TUBE SCH (08:04)
[2018-11-21] MEDS: IPRATROPIUM-ALBUTEROL 3 ML NEB INHALATION SCH ×4 (08:22→19:21)
[2018-11-21] MEDS: PIPERACILLIN-TAZOBACTAM 3.375 GM in SODIUM CHLORIDE 0.9% 100 ML IVPB SCH ×3 (08:24→22:40)
[2018-11-21] MEDS: FLUTICASONE 50MCG/SPRAY NASAL 16GM EA NOSTRIL SCH (08:27)
[2018-11-21] MEDS: CHOLESTYRAMINE (WITH SUGAR) 4 GM PACKET PEG/G-TUBE SCH ×2 (11:32→11:54)
[2018-11-21] MEDS: LINEZOLID 600 MG in DEXTROSE/WATER 1 300ML.BAG IVPB SCH ×2 (11:33→22:35)
[2018-11-21] MEDS: POTASSIUM CHLORIDE ER 20 MEQ TAB.ER PO SCH ×2 (11:34→11:37)
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
[2018-11-21 11:57] LABS: Glucose,Whole Blood 127 mg/dL (75-99)
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
[2018-11-21 16:43] LABS: Glucose,Whole Blood 114 mg/dL (75-99)
[2018-11-21] MEDS ORDERED: WARFARIN 2 MG TAB PO ONE (18:00)
[2018-11-21 20:35] LABS: Glucose,Whole Blood 100 mg/dL (75-99)
[2018-11-21] MEDS: MONTELUKAST 10 MG TAB PEG/G-TUBE SCH (20:54)
[2018-11-21] MEDS: QUEtiapine 100 MG TAB PEG/G-TUBE SCH (20:54)
[2018-11-21] MEDS: ALPRAZolam 0.5 MG TAB PEG/G-TUBE PRN (20:54)
[2018-11-21] MEDS: ATORVASTATIN 20 MG TAB PEG/G-TUBE SCH (20:54)
--- NOTE | 2018-11-21 23:30 | PN ---
PROGRESS NOTE DATE OF SERVICE: 11/21/2018 REASON FOR FOLLOWUP: Urinary tract infection. INTERVAL HISTORY: The patient is currently afebrile. The patient has been breathing comfortably. Occasional cough. No chest pain. No abdominal pain or any diarrhea. Urine -- some frequency but no burning. PHYSICAL EXAMINATION: Blood pressure 148/76, pulse of 71, temperature 98.1. She is 96% on trach collar. General description is a middle-aged female up in the bed in no distress. RESPIRATORY SYSTEM: Unlabored breathing with decreased intensity of breath sounds. No wheeze. HEART: S1, S2. Regular rate and rhythm. ABDOMEN: Soft. No tenderness. EXTREMITIES: No edema of the feet. LABS: White count down to 14.6. Urine did grow [id number] enterobacter and pseudomonas that is sensitive to Zosyn, which patient is currently on. Sputum cultures are currently pending. DIAGNOSTIC IMPRESSION AND PLAN: 1. Patient with urinary tract infection. Urine obtained from the Edwards catheter did grow [id number]-[id number] enterobacter and pseudomonas. The patient seems to have shown clinical improvement. White count has improved. Hence will keep the patient on Zosyn. Repeat urine culture, clean catch, has been ordered. 2. Patient with possible tracheobronchitis, purulent; less likely pneumonia. Currently covered with Zosyn and Zyvox. Waiting for the sputum culture to finalize. Continue supportive care. MMODL / IJN: [id number] /
[2018-11-22 03:10] LABS: Appearance,Urine Cloudy (Clear); Bilirubin,Urine Negative (Negative); Blood,Urine Large (Negative); Color,Urine Yellow; Glucose,Urine (UA) Negative (Negative); Ketones,Urine Negative (Negative); Leukocyte Esterase,Urine Moderate (Negative); Mucus,Urine Rare /hpf; Nitrite,Urine Negative (Negative); Protein,Urine Trace (Negative); RBC,Urine 25 /hpf (0-5); Squamous Epithelial Cell,Urine 9 /hpf (0-4); Urobilinogen,Urine <2.0 mg/dL (<2.0)
[2018-11-22] MEDS: CHOLESTYRAMINE (WITH SUGAR) 4 GM PACKET PEG/G-TUBE SCH ×3 (03:56→23:00)
[2018-11-22] MEDS: ALPRAZolam 0.5 MG TAB PEG/G-TUBE PRN ×3 (03:58→20:57)
[2018-11-22] MEDS: SODIUM CHLORIDE 0.9% 1,000 ML IV SCH ×3 (06:16→16:35)
[2018-11-22] MEDS: METOPROLOL TARTRATE 50 MG TAB PEG/G-TUBE SCH ×3 (06:16→20:57)
[2018-11-22] MEDS: LEVOTHYROXINE 75 MCG TAB PEG/G-TUBE SCH (06:16)
[2018-11-22] MEDS: PANTOPRAZOLE 40 MG TABLET PO SCH ×2 (06:16→16:35)
[2018-11-22 06:24] LABS: Glucose,Whole Blood 132 mg/dL (75-99)
[2018-11-22 06:42] LABS: Anisocytosis Slight; Basophils # (A) 0.1 k/uL (0-0.2); Basophils % (A) 0 %; Eosinophils # (A) 0.7 k/uL (0-0.7); Eosinophils % (A) 5 %; HCT 30.8 % (34.0-46.0); HGB 9.8 gm/dL (11.4-16.0); Hypochromasia Moderate; Lymphocytes # (A) 1.7 k/uL (1.0-4.8); Lymphocytes % (A) 11 %; MCH 30.5 pg (25.0-35.0); MCHC 31.7 g/dL (31.0-37.0); MCV 96.2 fL (80.0-100.0); Macrocytosis Slight; Mean Platelet Volume 7.1; Monocytes # (A) 0.5 k/uL (0-1.0); Monocytes % (A) 3 %; Neutrophils # (A) 12.6 k/uL (1.3-7.7); Neutrophils % (A) 80 %; Platelet Count 322 k/uL (150-450); Poikilocytosis Slight; RDW 17.9 % (11.5-15.5); WBC 15.7 k/uL (3.8-10.6)
[2018-11-22 06:48] LABS: INR 2.2 (<1.2); Prothrombin Time 21.7 sec (9.0-12.0)
[2018-11-22 07:00] LABS: Calcium 8.1 mg/dL (8.4-10.2); Potassium 3.4 mmol/L (3.5-5.1)
[2018-11-22] MEDS: INSULIN ASPART (NovoLOG) 100 UNIT/ML VIAL SQ SCH ×4 (07:57→23:00)
[2018-11-22] MEDS ORDERED: POTASSIUM CHLORIDE ER 20 MEQ TAB.ER PO STA (08:12)
[2018-11-22] MEDS: FLUTICASONE 50MCG/SPRAY NASAL 16GM EA NOSTRIL SCH (08:19)
[2018-11-22] MEDS: CLOPIDOGREL 75 MG TAB PEG/G-TUBE SCH (08:19)
[2018-11-22] MEDS: FOLIC ACID 1 MG TAB PEG/G-TUBE SCH (08:19)
[2018-11-22] MEDS: AMIODARONE 200 MG TAB PEG/G-TUBE SCH (08:19)
[2018-11-22] MEDS: PIPERACILLIN-TAZOBACTAM 3.375 GM in SODIUM CHLORIDE 0.9% 100 ML IVPB SCH ×3 (08:20→23:04)
[2018-11-22] MEDS: TORSEMIDE 20 MG TAB PEG/G-TUBE SCH ×2 (08:20→16:35)
[2018-11-22] MEDS: IPRATROPIUM-ALBUTEROL 3 ML NEB INHALATION SCH ×3 (08:31→19:18)
[2018-11-22] MEDS: LINEZOLID 600 MG in DEXTROSE/WATER 1 300ML.BAG IVPB SCH ×2 (10:45→23:02)
[2018-11-22] MEDS: HYDROcodone/APAP 5-325MG 1 EACH TAB PEG/G-TUBE PRN ×3 (10:45→21:37)
[2018-11-22 12:03] LABS: Glucose,Whole Blood 154 mg/dL (75-99)
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
--- NOTE | 2018-11-22 14:13 | XR ---
EXAMINATION TYPE: XR chest 1V portable DATE OF EXAM: 11/22/2018 CLINICAL HISTORY: Pneumonia progress study. TECHNIQUE: Single AP portable upright view of the chest is obtained. COMPARISON: Chest x-ray from 4 days earlier and older studies. FINDINGS: Tracheostomy tube is redemonstrated. Cardiomegaly is again seen. Reticular interstitial ch anges with increasing bilateral opacities noted. Overlying EKG leads are redemonstrated. Suspect stab le small to tiny bilateral pleural effusions. Osseous structures are intact. IMPRESSION: Cardiomegaly with interstitial changes bilaterally, worsening alveolar and interstitial e chauncey and/or infiltrates are felt present. Progress study advised.
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
--- NOTE | 2018-11-22 16:26 | PN ---
PROGRESS NOTE DATE OF SERVICE: 11/22/2018. REASON FOR FOLLOWUP: Pseudomonas and UTI and MRSA/pseudomonas tracheobronchitis. INTERVAL HISTORY: The patient is currently afebrile. The patient has been breathing comfortably. Overall purulent secretions through the ET have decreased. No chest pain. No abdominal pain. No diarrhea. Denies any UTI symptom at this point. PHYSICAL EXAMINATION: Blood pressure 152/93 with a pulse of 78, temperature of 98. She is 91% on trach collar. General description is a middle-aged female up in the bed in no distress. RESPIRATORY SYSTEM: Unlabored breathing with decreased breath sounds at the base. No wheeze. HEART: S1, S2. Regular rate and rhythm. ABDOMEN: Soft. No tenderness. LABS: Hemoglobin 9.8, white count 15.7 with BUN of 56, creatinine 1.89. Repeat urine after removal of the Edwards is still positive. DIAGNOSTIC IMPRESSION AND PLAN: 1. Patient with pseudomonas urinary tract infection, also showing enterobacter that is [id number]. Patient currently covered with Zosyn; to continue. 2. Patient with methicillin-resistant Staphylococcus aeruginosa and pseudomonas tracheobronchitis. Clinical suspicion low for pneumonia. Repeat a chest x-ray. Keep the patient on Zosyn and Zyvox at this point. Monitor clinical course closely. Family at the bedside. Their questions were answered. MMODL / IJN: [id number] /
[2018-11-22 17:22] LABS: Glucose,Whole Blood 123 mg/dL (75-99)
[2018-11-22] MEDS ORDERED: WARFARIN 2 MG TAB PO ONE (18:00)
[2018-11-22 20:36] LABS: Glucose,Whole Blood 129 mg/dL (75-99)
[2018-11-22] MEDS: MONTELUKAST 10 MG TAB PEG/G-TUBE SCH (20:57)
[2018-11-22] MEDS: ATORVASTATIN 20 MG TAB PEG/G-TUBE SCH (20:57)
[2018-11-22] MEDS: QUEtiapine 100 MG TAB PEG/G-TUBE SCH (20:58)
[2018-11-23] MEDS: ALPRAZolam 0.5 MG TAB PEG/G-TUBE PRN ×4 (03:13→22:04)
[2018-11-23] MEDS: LEVOTHYROXINE 75 MCG TAB PEG/G-TUBE SCH (05:49)
[2018-11-23] MEDS: METOPROLOL TARTRATE 50 MG TAB PEG/G-TUBE SCH ×3 (05:49→22:04)
[2018-11-23] MEDS: PANTOPRAZOLE 40 MG TABLET PO SCH ×2 (05:49→17:13)
[2018-11-23] MEDS: SODIUM CHLORIDE 0.9% 1,000 ML IV SCH ×4 (05:49→22:03)
[2018-11-23 06:07] LABS: Glucose,Whole Blood 141 mg/dL (75-99)
[2018-11-23] MEDS: INSULIN ASPART (NovoLOG) 100 UNIT/ML VIAL SQ SCH ×4 (07:46→20:33)
[2018-11-23] MEDS: FOLIC ACID 1 MG TAB PEG/G-TUBE SCH (08:04)
[2018-11-23] MEDS: HYDROcodone/APAP 5-325MG 1 EACH TAB PEG/G-TUBE PRN ×2 (08:04→15:16)
[2018-11-23] MEDS: AMIODARONE 200 MG TAB PEG/G-TUBE SCH (08:04)
[2018-11-23] MEDS: CLOPIDOGREL 75 MG TAB PEG/G-TUBE SCH (08:04)
[2018-11-23] MEDS: TORSEMIDE 20 MG TAB PEG/G-TUBE SCH ×2 (08:04→15:16)
[2018-11-23] MEDS: PIPERACILLIN-TAZOBACTAM 3.375 GM in SODIUM CHLORIDE 0.9% 100 ML IVPB SCH (08:05)
[2018-11-23] MEDS: CHOLESTYRAMINE (WITH SUGAR) 4 GM PACKET PEG/G-TUBE SCH ×2 (08:06→21:03)
[2018-11-23] MEDS: IPRATROPIUM-ALBUTEROL 3 ML NEB INHALATION SCH ×3 (08:44→20:13)
[2018-11-23] MEDS: FLUTICASONE 50MCG/SPRAY NASAL 16GM EA NOSTRIL SCH (09:20)
[2018-11-23 09:27] LABS: Calcium 8.1 mg/dL (8.4-10.2); Potassium 3.3 mmol/L (3.5-5.1)
[2018-11-23 09:29] LABS: Anisocytosis Slight; Basophils # (A) 0.1 k/uL (0-0.2); Basophils % (A) 0 %; Eosinophils # (A) 0.5 k/uL (0-0.7); Eosinophils % (A) 3 %; HCT 33.1 % (34.0-46.0); HGB 10.1 gm/dL (11.4-16.0); Hypochromasia Marked; Lymphocytes # (A) 2.2 k/uL (1.0-4.8); Lymphocytes % (A) 12 %; MCH 30.1 pg (25.0-35.0); MCHC 30.7 g/dL (31.0-37.0); Macrocytosis Slight; Mean Platelet Volume 7.7; Monocytes # (A) 0.5 k/uL (0-1.0); Monocytes % (A) 3 %; Neutrophils # (A) 14.8 k/uL (1.3-7.7); Neutrophils % (A) 81 %; Platelet Count 351 k/uL (150-450); Poikilocytosis Slight; RBC 3.38 m/uL (3.80-5.40); WBC 18.2 k/uL (3.8-10.6)
[2018-11-23] MEDS ORDERED: POTASSIUM CHLORIDE ER 20 MEQ TAB.ER PO STA (10:17)
[2018-11-23] MEDS ORDERED: ACETYLCYSTEINE 800 MG/4 ML VIAL INHALATION SCH ×2 (12:00→13:00)
[2018-11-23 12:12] LABS: Glucose,Whole Blood 128 mg/dL (75-99)
[2018-11-23] MEDS: LINEZOLID 600 MG in DEXTROSE/WATER 1 300ML.BAG IVPB SCH (12:15)
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
[2018-11-23] MEDS: ACETYLCYSTEINE 800 MG/4 ML VIAL INHALATION SCH ×2 (13:50→20:13)
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
[2018-11-23] MEDS: VANCOMYCIN ORAL SOLUTION 250 MG/5 ML BOTTLE PO SCH ×2 (15:17→23:13)
[2018-11-23] MEDS: CHERRY FLAVOR 60 ML BOTTLE PO SCH ×2 (15:25→23:13)
--- NOTE | 2018-11-23 16:54 | PN ---
PROGRESS NOTE DATE OF SERVICE: 11/23/2018 REASON FOR FOLLOWUP: 1. Pseudomonas UTI. 2. Pseudomonas and MRSA tracheobronchitis. 3. C difficile colitis. INTERVAL HISTORY: The patient's clinical course has been complicated by development of significant diarrhea requiring a rectal tube placement. Patient, though, denies significant abdominal pain. Nausea but no vomiting. Breathing is baseline. No chest pain. Occasional cough. No urinary symptoms. REVIEW OF SYSTEMS: Positive points have been mentioned in the HPI. Rest of the systems negative. Past medical and surgical history reviewed. Medication reviewed. PHYSICAL EXAMINATION: Blood pressure 143/92 with a pulse of 85, temperature 97.8. She is 91% on trach collar. General description is a middle-aged female lying in bed in no distress. RESPIRATORY SYSTEM: Unlabored breathing with decreased intensity of breath sounds. No wheeze. HEART: S1, S2. Regular rate and rhythm. ABDOMEN: Soft. Very minimal tenderness. EXTREMITIES: No edema of the feet. LABS/IMAGING: Hemoglobin is 10.1, white count of 18.2 with a BUN of 49, creatinine 1.74. Repeat urine culture so far negative. Chest x-ray did not show any evidence of consolidation. DIAGNOSTIC IMPRESSION AND PLAN: 1. Patient admitted to hospital with acute shortness of breath with concern for possible urinary source of sepsis on admission; urine did grow multiple pathogens. Subsequently she did have a UA clean catch after the catheter was removed, and those are negative. Initial UTI has been adequately treated. 2. Patient with pseudomonas and methicillin-resistant Staphylococcus aeruginosa tracheobronchitis. No evidence of any pneumonia. Received about 5 days of antibiotic; that should be enough. 3. Now the patient's clinical course is complicated by development of significant diarrhea. Stool for C difficile is positive. We will add vancomycin 250 p.o. q.6 hours. Continue with Questran. Discontinue the Zyvox and Zosyn and monitor clinical course closely. MMODL / IJN: [id number] /
[2018-11-23 17:12] LABS: Glucose,Whole Blood 107 mg/dL (75-99)
[2018-11-23] MEDS ORDERED: WARFARIN 2 MG TAB PO ONE (18:00)
[2018-11-23 20:23] LABS: Glucose,Whole Blood 117 mg/dL (75-99)
[2018-11-23] MEDS: QUEtiapine 100 MG TAB PEG/G-TUBE SCH (21:03)
[2018-11-23] MEDS: ATORVASTATIN 20 MG TAB PEG/G-TUBE SCH (21:03)
[2018-11-23] MEDS: MONTELUKAST 10 MG TAB PEG/G-TUBE SCH (21:03)
[2018-11-24] MEDS ORDERED: LINEZOLID 600 MG TAB PO SCH
[2018-11-24] MEDS: SODIUM CHLORIDE 0.9% 1,000 ML IV SCH ×4 (03:34→23:31)
[2018-11-24] MEDS: METOPROLOL TARTRATE 50 MG TAB PEG/G-TUBE SCH ×3 (05:22→21:14)
[2018-11-24] MEDS: VANCOMYCIN ORAL SOLUTION 250 MG/5 ML BOTTLE PO SCH ×4 (05:22→23:30)
[2018-11-24] MEDS: LEVOTHYROXINE 75 MCG TAB PEG/G-TUBE SCH (05:22)
[2018-11-24] MEDS: CHERRY FLAVOR 60 ML BOTTLE PO SCH ×4 (05:22→23:30)
[2018-11-24] MEDS: HYDROcodone/APAP 5-325MG 1 EACH TAB PEG/G-TUBE PRN ×3 (05:29→21:12)
[2018-11-24] MEDS: ALPRAZolam 0.5 MG TAB PEG/G-TUBE PRN ×3 (05:30→21:13)
[2018-11-24 07:08] LABS: Prothrombin Time 19.8 sec (9.0-12.0)
[2018-11-24 07:17] LABS: Glucose,Whole Blood 139 mg/dL (75-99)
[2018-11-24] MEDS: INSULIN ASPART (NovoLOG) 100 UNIT/ML VIAL SQ SCH ×4 (07:52→20:43)
[2018-11-24] MEDS: PANTOPRAZOLE 40 MG TABLET PO SCH ×2 (07:56→16:42)
[2018-11-24 08:00] LABS: Calcium 8.1 mg/dL (8.4-10.2); Potassium 2.9 mmol/L (3.5-5.1)
[2018-11-24] MEDS: ACETYLCYSTEINE 800 MG/4 ML VIAL INHALATION SCH ×3 (08:00→20:55)
[2018-11-24] MEDS: IPRATROPIUM-ALBUTEROL 3 ML NEB INHALATION SCH ×3 (08:00→20:55)
[2018-11-24] MEDS: FLUTICASONE 50MCG/SPRAY NASAL 16GM EA NOSTRIL SCH (08:25)
[2018-11-24] MEDS: TORSEMIDE 20 MG TAB PEG/G-TUBE SCH ×2 (08:26→14:53)
[2018-11-24] MEDS: AMIODARONE 200 MG TAB PEG/G-TUBE SCH (08:26)
[2018-11-24] MEDS: CLOPIDOGREL 75 MG TAB PEG/G-TUBE SCH (08:26)
[2018-11-24] MEDS: FOLIC ACID 1 MG TAB PEG/G-TUBE SCH (08:26)
[2018-11-24] MEDS: CHOLESTYRAMINE (WITH SUGAR) 4 GM PACKET PEG/G-TUBE SCH ×2 (08:26→21:12)
[2018-11-24] MEDS ORDERED: Potassium Replacement Protocol 1 EACH MISC MISCELLANE PRN ×2 (09:18→09:35)
[2018-11-24] MEDS: POTASSIUM BICARBONATE/CIT AC 20 MEQ TABLET.EFF NG-TUBE SCH ×2 (10:19→12:04)
--- NOTE | 2018-11-24 11:19 | XR ---
EXAMINATION TYPE: XR chest 1V portable DATE OF EXAM: 11/24/2018 COMPARISON: 11/22/2018 INDICATION: Shortness of breath TECHNIQUE: Single frontal view of the chest is obtained. FINDINGS: The heart size is moderately prominent. The pulmonary vasculature is prominent. Diffuse increased lung markings are present. This is improved from comparison. Tracheostomy tube is i n the midline. IMPRESSION: 1. Clinical correlation recommended for congestive heart failure. Findings are improving from compari son
[2018-11-24 12:02] LABS: Glucose,Whole Blood 118 mg/dL (75-99)
[2018-11-24] MEDS: POTASSIUM CHLORIDE 20 MEQ in WATER FOR INJECTION 1 100ML.BAG IVPB SCH ×2 (13:01→14:53)
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
[2018-11-24] MEDS: ACETAMINOPHEN TAB 325 MG TAB PEG/G-TUBE PRN (16:42)
[2018-11-24 16:52] LABS: Glucose,Whole Blood 114 mg/dL (75-99)
[2018-11-24] MEDS ORDERED: WARFARIN 5 MG TAB PO ONE (18:00)
[2018-11-24 20:33] LABS: Glucose,Whole Blood 116 mg/dL (75-99)
[2018-11-24] MEDS: MONTELUKAST 10 MG TAB PEG/G-TUBE SCH ×2 (21:12→21:14)
[2018-11-24] MEDS: ATORVASTATIN 20 MG TAB PEG/G-TUBE SCH (21:12)
[2018-11-24] MEDS: QUEtiapine 100 MG TAB PEG/G-TUBE SCH (21:13)
--- NOTE | 2018-11-24 22:04 | PN ---
PROGRESS NOTE DATE OF SERVICE: 11/24/2018. REASON FOR FOLLOWUP: C difficile colitis. INTERVAL HISTORY: The patient is currently afebrile. The patient has been breathing comfortably. Patient denies having any chest pain or cough. Denies any nausea. No vomiting. No abdominal pain and no urinary symptoms. He has been complaining about the rectal tube for her diarrhea. PHYSICAL EXAMINATION: Blood pressure 157/107 with a pulse of 81, temperature 98. She is 97% on trach collar. General description is a middle-aged female lying in bed in no distress. RESPIRATORY SYSTEM: Unlabored breathing. Clear to auscultation anteriorly. HEART: S1, S2. Regular rate and rhythm. ABDOMEN: Soft. No tenderness. EXTREMITIES: No edema of the feet. LABS: No CBC was done today. DIAGNOSTIC IMPRESSION AND PLAN: Patient admitted to hospital with initial concern for tracheobronchitis and urinary tract infection that has been adequately treated. Clinical course now complicated by development of C difficile colitis. Patient was started on p.o. vancomycin yesterday; to continue along with the Questran have overall improvement in diarrhea and the rectal tube can be discontinued. The patient may be able to go back to the [place] [facility] to continue on oral vancomycin to finish a 2-week course of therapy and continue supportive care. MMODL / IJN: [id number] /
[2018-11-25] MEDS: SODIUM CHLORIDE 0.9% 1,000 ML IV SCH ×2 (03:04→12:17)
[2018-11-25] MEDS: ALPRAZolam 0.5 MG TAB PEG/G-TUBE PRN ×3 (03:47→15:42)
[2018-11-25] MEDS: HYDROcodone/APAP 5-325MG 1 EACH TAB PEG/G-TUBE PRN ×3 (03:52→15:42)
[2018-11-25] MEDS: LEVOTHYROXINE 75 MCG TAB PEG/G-TUBE SCH (05:03)
[2018-11-25] MEDS: METOPROLOL TARTRATE 50 MG TAB PEG/G-TUBE SCH ×2 (05:03→15:42)
[2018-11-25] MEDS: CHERRY FLAVOR 60 ML BOTTLE PO SCH ×3 (05:03→17:17)
[2018-11-25] MEDS: VANCOMYCIN ORAL SOLUTION 250 MG/5 ML BOTTLE PO SCH ×3 (05:03→17:16)
[2018-11-25 06:57] LABS: Glucose,Whole Blood 120 mg/dL (75-99)
[2018-11-25] MEDS: IPRATROPIUM-ALBUTEROL 3 ML NEB INHALATION SCH ×2 (07:34→12:18)
[2018-11-25] MEDS: ACETYLCYSTEINE 800 MG/4 ML VIAL INHALATION SCH ×2 (07:35→12:18)
[2018-11-25 07:37] VITALS: BP 155/85; RESP 15; TEMP 98.2
[2018-11-25] MEDS: INSULIN ASPART (NovoLOG) 100 UNIT/ML VIAL SQ SCH ×3 (08:20→17:13)
[2018-11-25] MEDS: CLOPIDOGREL 75 MG TAB PEG/G-TUBE SCH (08:57)
[2018-11-25] MEDS: FOLIC ACID 1 MG TAB PEG/G-TUBE SCH (08:57)
[2018-11-25] MEDS: AMIODARONE 200 MG TAB PEG/G-TUBE SCH (08:57)
[2018-11-25] MEDS: TORSEMIDE 20 MG TAB PEG/G-TUBE SCH ×2 (08:59→15:42)
[2018-11-25] MEDS: FLUTICASONE 50MCG/SPRAY NASAL 16GM EA NOSTRIL SCH (08:59)
[2018-11-25] MEDS: CHOLESTYRAMINE (WITH SUGAR) 4 GM PACKET PEG/G-TUBE SCH (08:59)
[2018-11-25 09:04] LABS: INR 2.6 (<1.2); Prothrombin Time 25.1 sec (9.0-12.0)
[2018-11-25 10:46] LABS: Anisocytosis Slight; Basophils % (A) 0 %; Eosinophils # (A) 0.7 k/uL (0-0.7); Eosinophils % (A) 4 %; HGB 10.3 gm/dL (11.4-16.0); Lymphocytes # (A) 2.1 k/uL (1.0-4.8); Lymphocytes % (A) 12 %; MCH 30.7 pg (25.0-35.0); MCHC 33.1 g/dL (31.0-37.0); Mean Platelet Volume 7.6; Monocytes # (A) 0.7 k/uL (0-1.0); Monocytes % (A) 4 %; Neutrophils # (A) 14.2 k/uL (1.3-7.7); Neutrophils % (A) 80 %; Platelet Count 257 k/uL (150-450); Poikilocytosis Slight; RBC 3.34 m/uL (3.80-5.40); RDW 17.9 % (11.5-15.5); WBC 17.8 k/uL (3.8-10.6)
[2018-11-25 10:47] LABS: MCV 92.7 fL (80.0-100.0)
[2018-11-25 10:49] LABS: Potassium 3.5 mmol/L (3.5-5.1)
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
[2018-11-25 11:45] LABS: Glucose,Whole Blood 142 mg/dL (75-99)
[2018-11-25 12:23] VITALS: PULSE 84
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
[2018-11-25 16:05] VITALS: BMI 30.2
[2018-11-25 16:42] LABS: Glucose,Whole Blood 117 mg/dL (75-99)
--- NOTE | 2018-11-25 17:06 | PN ---
PROGRESS NOTE DATE OF SERVICE: 11/25/2018. REASON FOR FOLLOWUP: C difficile colitis. INTERVAL HISTORY: The patient is currently afebrile. The patient has been breathing comfortably. The patient's cough has significantly improved and she did not have significant purulent secretions through the ET, per her at the bedside. No nausea, no vomiting. No abdominal pain. Her diarrhea has slowed down; had 3 episodes and the patient pulled out her rectal tube yesterday. Denies any urinary symptoms. PHYSICAL EXAMINATION: Blood pressure 155/85 with a pulse of 69, temperature 98.2. She is 98% on trach collar. General description is a middle-aged female up in the bed in no distress. RESPIRATORY SYSTEM: Unlabored breathing with decreased intensity of breath sounds. No wheeze. HEART: S1, S2. Regular rate and rhythm. ABDOMEN: Soft. No tenderness. LABS: Hemoglobin is 10.3, white count 17.8 with a BUN of 44, creatinine 1.47. DIAGNOSTIC IMPRESSION AND PLAN: Patient admitted to hospital with a urinary tract infection and also with a component of tracheobronchitis has been adequately treated. Repeat urine culture is negative and the patient's chest x-ray did not show any evidence of pneumonia. The patient's clinical course is complicated by development of C difficile colitis, currently on oral vancomycin, to continue for another 2 weeks along with Questran twice a day as needed. Continue with supportive care. at the bedside. Questions were answered. MMODL / IJN: [id number] /
[2018-11-25] MEDS: PANTOPRAZOLE 40 MG TABLET PO SCH (17:16)
[2018-11-25] MEDS ORDERED: WARFARIN 2 MG TAB PO ONE (18:00)
--- NOTE | 2018-11-28 11:28 | CDI ---
Documentation Clarification Form Date: 11/28/2018 From: Lashanda Marie Phone: If questions call [facility] @ [phone], Hours-8:30 am & 5 pm M- F Admit Date: 11/18/2018 1:37:00 PM Patient Name: Madina Nick Visit Number: [id number] Discharge Date: 11/25/2018 7:00:00 PM ATTENTION: The Clinical Documentation Specialists (CDI) and [facility] [employer] Coding Staff appreciate your assistance in clarifying documentation. Please respond to the clarification below the line at the bottom and electronically sign. The CDI & [employer] [facility] [employer] Coding staff will review the response and follow-up if needed. Please note: Queries are made part of the Legal Health Record. If you have any questions, please contact the author of this message via ITS. Dr. Rosana William The diagnosis sepsis was documented in the record (ED note, consults, PNs 11/20, 11/21, 11/22, 11/23,11/24 & 11/25) , but is not consistently noted in subsequent documentation. History/Risk Factors: CAUTI, acute tracheobronchitis, C Diff colitis Clinical Indicators: Lactic acid-1.1, WBC-28.3, Neutrophils-26.0, T-97.0, P-54, R-20 Treatment: IV Zosyn, IV Solu-Medro, oral Vanco Please clarify if the above diagnosis of sepsis was: ? Present/active and treated this admission ? Ruled out ? Other, please specify ? Clinically unable to determine present/active and treated this admission MTDD
== END 2018-11-25 19:00 | DRG 698 ==
LOC: EC 11:59 → 4MS4W 13:37 → 3SCARD 11-19 15:46 → 4SSUR 11-23 18:32
PROVIDERS: ADMIT Hospitalist; ATTEND Hospitalist
PROC: 05HC33Z Insertion of Infusion Device into Left Basilic Vein, Percutaneous Approach (ICD-10-PCS; principal; 2018-11-22 14:00)
DX: T83.511A Infection and inflammatory reaction due to indwelling urethral catheter, initial encounter (principal); A41.9 Sepsis, unspecified organism; N17.9 Acute kidney failure, unspecified; I13.0 Hypertensive heart and chronic kidney disease with heart failure and stage 1 through stage 4 chronic kidney disease, or unspecified chronic kidney disease; J44.1 Chronic obstructive pulmonary disease with (acute) exacerbation; J44.0 Chronic obstructive pulmonary disease with (acute) lower respiratory infection; A04.72 Enterocolitis due to Clostridium difficile, not specified as recurrent; J96.11 Chronic respiratory failure with hypoxia; I50.32 Chronic diastolic (congestive) heart failure; E87.2 Acidosis; N39.0 Urinary tract infection, site not specified; Z93.0 Tracheostomy status; I27.20 Pulmonary hypertension, unspecified; N18.3 Chronic kidney disease, stage 3 (moderate); I48.0 Paroxysmal atrial fibrillation; Z93.1 Gastrostomy status; F06.8 Other specified mental disorders due to known physiological condition; J20.9 Acute bronchitis, unspecified; T17.990A Other foreign object in respiratory tract, part unspecified in causing asphyxiation, initial encounter; G89.4 Chronic pain syndrome; B96.5 Pseudomonas (aeruginosa) (mallei) (pseudomallei) as the cause of diseases classified elsewhere; B95.2 Enterococcus as the cause of diseases classified elsewhere; B95.62 Methicillin resistant Staphylococcus aureus infection as the cause of diseases classified elsewhere; I25.10 Atherosclerotic heart disease of native coronary artery without angina pectoris; F32.9 Major depressive disorder, single episode, unspecified; E03.9 Hypothyroidism, unspecified; K21.9 Gastro-esophageal reflux disease without esophagitis; E87.6 Hypokalemia; E78.5 Hyperlipidemia, unspecified; F41.9 Anxiety disorder, unspecified; R32 Unspecified urinary incontinence; E66.9 Obesity, unspecified; Z68.30 Body mass index [BMI] 30.0-30.9, adult; Z16.24 Resistance to multiple antibiotics; Z79.02 Long term (current) use of antithrombotics/antiplatelets; Z79.891 Long term (current) use of opiate analgesic; Z79.01 Long term (current) use of anticoagulants; Z79.890 Hormone replacement therapy; Z79.4 Long term (current) use of insulin; Z79.899 Other long term (current) drug therapy; Z86.74 Personal history of sudden cardiac arrest; Z86.718 Personal history of other venous thrombosis and embolism; Z86.73 Personal history of transient ischemic attack (TIA), and cerebral infarction without residual deficits; Z87.01 Personal history of pneumonia (recurrent); Z90.49 Acquired absence of other specified parts of digestive tract; Z86.19 Personal history of other infectious and parasitic diseases; Z90.710 Acquired absence of both cervix and uterus; Z95.5 Presence of coronary angioplasty implant and graft; Z96.9 Presence of functional implant, unspecified; Z87.891 Personal history of nicotine dependence; Z87.820 Personal history of traumatic brain injury; Z87.440 Personal history of urinary (tract) infections; Z98.890 Other specified postprocedural states; Z22.322 Carrier or suspected carrier of Methicillin resistant Staphylococcus aureus; Z71.3 Dietary counseling and surveillance; Z87.81 Personal history of (healed) traumatic fracture; Z98.42 Cataract extraction status, left eye; Z98.41 Cataract extraction status, right eye; Z88.1 Allergy status to other antibiotic agents; Z88.2 Allergy status to sulfonamides; Z88.8 Allergy status to other drugs, medicaments and biological substances; Y84.6 Urinary catheterization as the cause of abnormal reaction of the patient, or of later complication, without mention of misadventure at the time of the procedure; Z80.9 Family history of malignant neoplasm, unspecified
CPT/HCPCS: 36410; 36415; 71045; 76937; 80048; 80053; 81001; 82550; 83605; 83735; 83880; 84132; 84484; 85025; 85610; 85730; 87040; 87070; 87077; 87086; 87186; 87205; 87324; 87493; 93005; 94640; 94644; 94760; 96365; 96366; 96375; 99285

== ENCOUNTER 2018-11-27 14:11 | Inpatient (IN) | payer OTHER ==
[2018-11-27] MEDS ORDERED: ACETAMINOPHEN TAB 500 MG TAB PO STA (14:20)
[2018-11-27] MEDS ORDERED: PIPERACILLIN-TAZOBACTAM 3.375 GM in SODIUM CHLORIDE 0.9% 100 ML IVPB STA (14:20)
[2018-11-27] MEDS ORDERED: IBUPROFEN 600 MG TAB PO STA (14:20)
[2018-11-27] MEDS ORDERED: VANCOMYCIN IV PER PHARMACY 1 EACH MISC MISCELLANE PRN (14:29)
[2018-11-27] MEDS: SODIUM CHLORIDE 0.9% 500 ML 500 ML IV SCH ×3 (14:36→15:36)
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
[2018-11-27] MEDS ORDERED: LINEZOLID 600 MG in DEXTROSE/WATER 1 300ML.BAG IVPB STA (14:56)
[2018-11-27] MEDS ORDERED: VANCOMYCIN 1,500 MG in SODIUM CHLORIDE 0.9% 250 ML IVPB ONE (15:00)
[2018-11-27 15:22] LABS: Appearance,Urine Turbid (Clear); Bilirubin,Urine Negative (Negative); Blood,Urine Large (Negative); Color,Urine Yellow; Glucose,Urine (UA) Negative (Negative); Ketones,Urine Negative (Negative); Leukocyte Esterase,Urine Large (Negative); Nitrite,Urine Negative (Negative); PH, Urine 5.5 (5.0-8.0); Protein,Urine 2+ (Negative); RBC,Urine >182 /hpf (0-5); Specific Gravity,Urine 1.018 (1.001-1.035); Urobilinogen,Urine <2.0 mg/dL (<2.0); WBC,Urine >182 /hpf (0-5)
[2018-11-27 15:31] LABS: Anisocytosis Slight; Basophils # (A) 0.1 k/uL (0-0.2); Basophils % (A) 0 %; Eosinophils # (A) 0.2 k/uL (0-0.7); Eosinophils % (A) 2 %; HCT 29.2 % (34.0-46.0); HGB 9.2 gm/dL (11.4-16.0); Hypochromasia Slight; Lymphocytes # (A) 2.2 k/uL (1.0-4.8); Lymphocytes % (A) 14 %; MCH 29.2 pg (25.0-35.0); MCHC 31.4 g/dL (31.0-37.0); Mean Platelet Volume 6.7; Monocytes # (A) 0.5 k/uL (0-1.0); Monocytes % (A) 3 %; Neutrophils # (A) 12.3 k/uL (1.3-7.7); Neutrophils % (A) 80 %; Platelet Count 293 k/uL (150-450); Poikilocytosis Slight; RBC 3.14 m/uL (3.80-5.40); WBC 15.5 k/uL (3.8-10.6)
[2018-11-27 15:39] LABS: INR 2.4 (<1.2); Partial Thromboplastin Time 37.9 sec (22.0-30.0); Prothrombin Time 22.9 sec (9.0-12.0)
[2018-11-27 15:40] LABS: ALT 50 U/L (9-52); AST 46 U/L (14-36); African American GFR (CKD) 36 (>60 ml/min/1.73 sqM); Albumin 3.1 g/dL (3.5-5.0); Alkaline Phosphatase 182 U/L (38-126); Anion Gap 12 mmol/L; Blood Urea Nitrogen 52 mg/dL (7-17); Calcium 7.9 mg/dL (8.4-10.2); Carbon Dioxide 20 mmol/L (22-30); Chloride 107 mmol/L (98-107); Creatine Kinase <20 U/L (30-135); Glucose 111 mg/dL (74-99); Sodium 139 mmol/L (137-145); Total Bilirubin 0.2 mg/dL (0.2-1.3); Total Protein 7.2 g/dL (6.3-8.2)
--- NOTE | 2018-11-27 15:53 | XR ---
EXAMINATION TYPE: XR chest 2V DATE OF EXAM: 11/27/2018 COMPARISON: 11/24/2018 HISTORY: Fever. Short of breath TECHNIQUE: Frontal and lateral views of the chest are obtained. FINDINGS: Heart is enlarged. There is pulmonary vascular congestion. There is tracheostomy tube. The re are chest leads. There is patchy pulmonary edema. There is slight blunting of the costophrenic ang les. IMPRESSION: Congestive heart failure. There is probably underlying pulmonary fibrosis. Chest appears slightly improved compared to last exam.
[2018-11-27] MEDS ORDERED: FUROSEMIDE 10 MG/ML 4 ML VIAL IV STA (16:13)
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
[2018-11-27] MEDS ORDERED: ACETYLCYSTEINE 800 MG/4 ML VIAL INHALATION PRN (18:18)
[2018-11-27] MEDS ORDERED: PROMETHAZINE 25 MG TAB PEG/G-TUBE PRN (18:18)
[2018-11-27] MEDS ORDERED: IPRATROPIUM-ALBUTEROL 3 ML NEB INHALATION PRN (18:21)
[2018-11-27] MEDS: VANCOMYCIN ORAL SOLUTION 250 MG/5 ML BOTTLE PO SCH (18:38)
[2018-11-27] MEDS: CHERRY FLAVOR 60 ML BOTTLE PO SCH (18:39)
[2018-11-27] MEDS: IPRATROPIUM-ALBUTEROL 3 ML NEB INHALATION SCH ×2 (21:07→23:37)
[2018-11-27] MEDS: HYDROcodone/APAP 5-325MG 1 EACH TAB PEG/G-TUBE PRN (21:15)
[2018-11-27] MEDS: ALPRAZolam 0.5 MG TAB PEG/G-TUBE PRN (21:16)
[2018-11-27] MEDS: ATORVASTATIN 20 MG TAB PEG/G-TUBE SCH (21:16)
[2018-11-27] MEDS: MONTELUKAST 10 MG TAB PEG/G-TUBE SCH (21:16)
[2018-11-27] MEDS: POTASSIUM CHLORIDE ER 20 MEQ TAB.ER PO SCH (21:17)
[2018-11-28 00:13] LABS: Glucose,Whole Blood 93 mg/dL (75-99)
[2018-11-28] MEDS: PIPERACILLIN-TAZOBACTAM 3.375 GM in SODIUM CHLORIDE 0.9% 100 ML IVPB SCH ×4 (00:17→23:11)
[2018-11-28] MEDS: PANTOPRAZOLE SODIUM 40 MG GRANULE PKT PEG/G-TUBE SCH ×2 (01:02→11:48)
[2018-11-28] MEDS: QUEtiapine 100 MG TAB PO SCH ×2 (01:02→20:58)
[2018-11-28] MEDS: CHOLESTYRAMINE (WITH SUGAR) 4 GM PACKET PEG/G-TUBE SCH ×3 (01:02→20:57)
[2018-11-28] MEDS: VANCOMYCIN ORAL SOLUTION 250 MG/5 ML BOTTLE PO SCH ×5 (01:06→23:11)
[2018-11-28] MEDS: CHERRY FLAVOR 60 ML BOTTLE PO SCH ×5 (01:06→23:11)
[2018-11-28] MEDS: FUROSEMIDE 10 MG/ML 2 ML VIAL IV SCH ×4 (01:14→23:11)
[2018-11-28] MEDS: IPRATROPIUM-ALBUTEROL 3 ML NEB INHALATION SCH ×6 (03:26→23:43)
[2018-11-28] MEDS ORDERED: LINEZOLID 600 MG in DEXTROSE/WATER 1 300ML.BAG IVPB SCH (06:00)
[2018-11-28 06:03] LABS: Glucose,Whole Blood 78 mg/dL (75-99)
[2018-11-28] MEDS: LACTOBACILLUS ACIDOPH & BULGAR 1 EACH PACKET PEG/G-TUBE SCH ×2 (06:20→18:27)
[2018-11-28] MEDS: LEVOTHYROXINE 75 MCG TAB PEG/G-TUBE SCH (06:20)
[2018-11-28 07:28] LABS: Anisocytosis Slight; Basophils # (A) 0.1 k/uL (0-0.2); Basophils % (A) 0 %; Eosinophils # (A) 0.4 k/uL (0-0.7); Eosinophils % (A) 3 %; HCT 29.8 % (34.0-46.0); HGB 9.5 gm/dL (11.4-16.0); Hypochromasia Moderate; Lymphocytes % (A) 15 %; MCH 30.4 pg (25.0-35.0); MCHC 31.9 g/dL (31.0-37.0); MCV 95.3 fL (80.0-100.0); Macrocytosis Slight; Mean Platelet Volume 6.9; Monocytes # (A) 0.7 k/uL (0-1.0); Monocytes % (A) 5 %; Neutrophils # (A) 9.6 k/uL (1.3-7.7); Neutrophils % (A) 74 %; Platelet Count 244 k/uL (150-450); Poikilocytosis Slight; RBC 3.13 m/uL (3.80-5.40)
[2018-11-28 07:58] LABS: Calcium 7.8 mg/dL (8.4-10.2); Potassium 3.7 mmol/L (3.5-5.1)
--- NOTE | 2018-11-28 10:05 | CT ---
EXAMINATION TYPE: CT chest wo con DATE OF EXAM: 11/28/2018 COMPARISON: 08/22/2018 HISTORY: Acute Respiratory Failure CT DLP: 401.4 mGycm, Automated exposure control for dose reduction was used. CONTRAST: Performed injected with 0 mL of Isovue 300. TECHNIQUE: Axial images were obtained at 5 mm thick sections. Reconstructed images are reviewed on [facility] computer in the coronal plane. FINDINGS: Thyroid is not visualized. There is a tracheostomy tube present with the tip within the pro ximal trachea. There is some narrowing of the trachea below the tracheostomy tube estimated at 0.5 cm . There is a small left pleural effusion. Bibasilar infiltrates are present can be related to atelectas is. Patchy densities are within the right middle lobe. Correlate for pneumonia. Some emphysematous ch anges are present. Multiple prominent pretracheal lymph nodes are present measuring greater than 1 cm. The largest in t pretracheal space measures 1.6 cm, image 201. The ascending aorta diameter at the level of the main pulmonary artery is 3.4 cm. The main pulmonary artery diameter at the bifurcation is 3.[address] sections are obtained through the upper abdomen. Abdomen is essentially unremarkable. Gall bladder is surgically absent. IMPRESSIONS: 1. Patchy infiltrates greater in the right middle lobe. Correlate for pneumonia. 2. Tracheostomy tube is in position. The trachea below the tracheostomy tube is stenotic with an AP d imension of 0.5 cm. 3. Small left pleural effusion. 4. Enlarged mediastinal adenopathy. A [place] level critical message alert has been initiated for Mirza Sepulveda via the [employer] Results System on 11/28/2018 10:03 AM. This message alert has been sent to Mirza Sepulveda via the pre ferences provided by the clinician for the receipt of Radiology Critical Findings. Message ID [id number] .
[2018-11-28] MEDS: AMIODARONE 200 MG TAB PEG/G-TUBE SCH (11:47)
[2018-11-28] MEDS: SERTRALINE 100 MG TAB PEG/G-TUBE SCH (11:48)
[2018-11-28] MEDS: CLOPIDOGREL 75 MG TAB PEG/G-TUBE SCH (11:48)
[2018-11-28] MEDS: FOLIC ACID 1 MG TAB PEG/G-TUBE SCH (11:48)
--- NOTE | 2018-11-28 12:01 | ECHOF ---
Referral Reason:h/o Diastolic CHF with high BNP MEASUREMENTS -------- HEIGHT: 167.6 cm WEIGHT: 68.0 kg BP: 93/69 RVIDd: 2.9 cm (< 3.3) IVSd: 0.9 cm (0.6 - 1.1) LVIDd: 4.7 cm (3.9 - 5.3) LVPWd: 1.1 cm (0.6 - 1.1) IVSs: 1.4 cm LVIDs: 3.7 cm LVPWs: 1.5 cm LAESV Index (A-L): 35.95 ml/m Ao Diam: 3.0 cm (2.0 - 3.7) AV Cusp: 1.6 cm (1.5 - 2.6) LA Diam: 2.9 cm (2.7 - 3.8) MV EXCURSION: 17.354 mm (> 18.000) MV EF SLOPE: 48 mm/s (70 - 150) EPSS: 0.4 cm MV E Joe: 1.15 m/s MV DecT: 299 ms MV A Joe: 1.14 m/s MV E/A Ratio: 1.01 AV maxP.85 mmHg AV meanP.97 mmHg AR PHT: 631 ms RAP: 5.00 mmHg RVSP: 45.81 mmHg FINDINGS -------- Sinus rhythm. This was a technically good study. The left ventricular size is normal. There is mild concentric left ventricular hypertrophy. Overa ll left ventricular systolic function is normal with, an EF between 55 - 60 %. Increased LAP Grade 2 Diastolic Dysfunction. The right ventricle is normal in size. LA is moderately dilated 34-39 ml/m2 The right atrial size is normal. Interatrial and interventricular septum intact. Aortic valve is trileaflet and is mildly thickened. There is mild aortic regurgitation. There is mild aortic stenosis present. Peak/mean gradient across the Aortic Valve is 20.85mmHg / 11.97mmHg. The mitral valve is normal. The mitral valve leaflets are mildly thickened. Mild mitral regurgita tion is present. Moderate tricuspid regurgitation present. There is mild pulmonary hypertension. The right ventric ular systolic pressure, as measured by Doppler, is 45.81mmHg. The pulmonic valve is normal. The aortic root size is normal. Normal inferior vena cava with normal inspiratory collapse consistent with estimated right atrial pre ssure of 5 mmHg. There is no pericardial effusion. CONCLUSIONS -------- 1. Sinus rhythm. 2. This was a technically good study. 3. The left ventricular size is normal. 4. There is mild concentric left ventricular hypertrophy. 5. Overall left ventricular systolic function is normal with, an EF between 55 - 60 %. 6. Increased LAP Grade 2 Diastolic Dysfunction. 7. The right ventricle is normal in size. 8. LA is moderately dilated 34-39 ml/m2 9. The right atrial size is normal. 10. Interatrial and interventricular septum intact. 11. Aortic valve is trileaflet and is mildly thickened. 12. There is mild aortic regurgitation. 13. There is mild aortic stenosis present. 14. Peak/mean gradient across the Aortic Valve is 20.85mmHg / 11.97mmHg. 15. The mitral valve is normal. 16. The mitral valve leaflets are mildly thickened. 17. Mild mitral regurgitation is present. 18. Moderate tricuspid regurgitation present. 19. There is mild pulmonary hypertension. 20. The right ventricular systolic pressure, as measured by Doppler, is 45.81mmHg. 21. The pulmonic valve is normal. 22. The aortic root size is normal. 23. Normal inferior vena cava with normal inspiratory collapse consistent with estimated right atrial pressure of 5 mmHg. 24. There is no pericardial effusion. REVENUE SETTLEMENTS ADMINISTRATOR: Emily Alegre [facility]
[2018-11-28 12:04] LABS: Glucose,Whole Blood 95 mg/dL (75-99)
--- NOTE | 2018-11-28 13:26 | P.PN ---
Subjective Progress Note Date: 11/28/18 Patient seen and examined follow-up, patient awake alert, pointing to tracheostomy wanting deep suctioning. Patient afebrile overnight, white count down to 13. Creatinine 1.98. Echocardiogram results pending. No acute events overnight patient continued on 10 L. Speech therapy notes indicating chopped with nectar thick liquids and chin tuck Objective - Vital Signs Vital signs: Vital Signs Temp 97.8 F 11/28/18 04:00 Pulse 84 11/28/18 12:27 Resp 18 11/28/18 04:00 BP 93/69 11/27/18 23:30 Pulse Ox 94 L 11/27/18 22:43 Intake & Output 11/27/18 11/28/18 11/28/18 18:59 06:59 18:59 Intake Total 800 Output Total 800 Balance 0 Weight 68.039 kg 76 kg 76 kg Intake: Amount of Fluid Infused ( 600 ml) Intake, IV Titration 100 Amount Piperacillin-Tazobactam 3 100 .375 gm In Sodium Chloride 0.9% 100 ml @ 25 mls/hr IVPB Q8HR [facility] Rx# :[id number] Tube Feeding 100 Output: Urine 800 Other: Voiding Method Indwelling Catheter # Voids 1 - Exam Constitutional: No acute distress, conversant, pleasant Eyes: Anicteric sclerae, moist conjunctiva, no lid-lag, PERRLA ENMT: NC/AT,Oropharynx clear, no erythema, exudates Neck:Supple, FROM, no masses, or JVD, No carotid bruits; No thyromegaly Lungs: Clear to auscultation, Clear to percussion, Normal respiratory effort, no accessory muscle use Cardiovascular: Heart regular in rate and rhythm, No murmurs, gallops, or rubs no peripheral edema Abdominal: Soft Nontender, nom distended, no guarding, no rebound or rigidity, Normoactive bowel sounds No hepatomegaly, No splenomegaly, No palpable mass No abdominal wall hernia noted Skin: Normal temperature, tone, texture, turgor, No induration No subcutaneous n odules, No rash, lesions, No ulcers Extremities:No digital cyanosis No clubbing, Pedal pulses intact and symmetrical Radial pulses intact and symmetrical Normal gait and station, No calf tenderness Psychiatric: Alert and oriented to person, place and time, Appropriate affect Intact judgement Neuro: Muscles Strength 5/5 in all 4 extremities, Sensation to light touch grossly present throughout, Cranial nerves II-XII grossly intact. No focal sensory deficits - Labs CBC & Chem 7: 11/28/18 06:06 11/28/18 06:06 Labs: Abnormal Lab Results - Last 24 Hours (Table) 11/27/18 11/27/18 11/27/18 Range/Units 14:41 15:07 15:07 WBC 15.5 H (3.8-10.6) k/uL RBC 3.14 L (3.80-5.40) m/uL Hgb 9.2 L (11.4-16.0) gm/dL Hct 29.2 L (34.0-46.0) % RDW 18.0 H (11.5-15.5) % Neutrophils # 12.3 H (1.3-7.7) k/uL PT (9.0-12.0) sec INR (<1.2) APTT (22.0-30.0) sec Carbon Dioxide 20 L (22-30) mmol/L BUN 52 H (7-17) mg/dL Creatinine 1.70 H (0.52-1.04) mg/dL Glucose 111 H (74-99) mg/dL Calcium 7.9 L (8.4-10.2) mg/dL AST 46 H (14-36) U/L Alkaline Phosphatase 182 H (38-126) U/L Creatine Kinase <20 L (30-135) U/L Albumin 3.1 L (3.5-5.0) g/dL Urine Appearance Turbid H (Clear) Urine Protein 2+ H (Negative) Urine Blood Large H (Negative) Ur Leukocyte Esterase Large H (Negative) Urine RBC >182 H (0-5) /hpf Urine WBC >182 H (0-5) /hpf Urine WBC Clumps Many H (None) /hpf 11/27/18 11/28/18 11/28/18 Range/Units 15:07 06:06 06:06 WBC 13.0 H (3.8-10.6) k/uL RBC 3.13 L (3.80-5.40) m/uL Hgb 9.5 L (11.4-16.0) gm/dL Hct 29.8 L (34.0-46.0) % RDW 18.0 H (11.5-15.5) % Neutrophils # 9.6 H (1.3-7.7) k/uL PT 22.9 H (9.0-12.0) sec INR 2.4 H (<1.2) APTT 37.9 H (22.0-30.0) sec Carbon Dioxide 21 L (22-30) mmol/L BUN 54 H (7-17) mg/dL Creatinine 1.98 H (0.52-1.04) mg/dL Glucose (74-99) mg/dL Calcium 7.8 L (8.4-10.2) mg/dL AST (14-36) U/L Alkaline Phosphatase (38-126) U/L Creatine Kinase (30-135) U/L Albumin (3.5-5.0) g/dL Urine Appearance (Clear) Urine Protein (Negative) Urine Blood (Negative) Ur Leukocyte Esterase (Negative) Urine RBC (0-5) /hpf Urine WBC (0-5) /hpf Urine WBC Clumps (None) /hpf Microbiology - Last 24 Hours (Table) 11/27/18 14:41 Urine Culture - Preliminary Urine,Catheterized Assessment and Plan (1) Acute on chronic respiratory failure with hypoxia Narrative/Plan: * Multifactorial secondary to acute on chronic diastolic CHF in the setting of underlying possible healthcare associated pneumonia as CT showing patchy right middle lobe infiltrate * Continue supplemental oxygen, continue DuoNeb that her breathing treatments, continue diuresis with IV Lasix, continue inhaled Mucomyst continue chest physiotherapy * CT also showing stenotic trachea just below the tracheostomy tube * pulmonary consulted for further recommendations Current Visit: No Status: Acute Code(s): J96.21 - ACUTE AND CHRONIC RESPIRATORY FAILURE WITH HYPOXIA SNOMED Code(s): 84781918 (2) Acute diastolic (congestive) heart failure Narrative/Plan: * Acute on chronic diastolic CHF exacerbation * Echocardiogram showing preserved LVEF of 55-60%, with grade 2 diastolic dysfunction, moderately dilated left atrium, moderate TR, mild pAH * Continue diuresis with Lasix 20 mg IV every 8 hr Current Visit: No Status: Acute Code(s): I50.31 - ACUTE DIASTOLIC (CONGESTIVE) HEART FAILURE SNOMED Code(s): 452890375 (3) Sepsis Narrative/Plan: * Secondary to pneumonia and urinary tract infection * Continue current antibiotic regimen with Zyvox and Zosyn * Patient afebrile leukocytosis improving * Awaiting ID recommendations * Patient also continued on oral vancomycin for previous C. diff colitis Current Visit: Yes Status: Acute Code(s): A41.9 - SEPSIS, UNSPECIFIED ORGANISM SNOMED Code(s): 88645245 (4) Urinary tract infection Narrative/Plan: * Continue current antibiotic regimen urine cultures pending Current Visit: Yes Status: Acute Code(s): N39.0 - URINARY TRACT INFECTION, SITE NOT SPECIFIED SNOMED Code(s): 14025024 (5) Chronic kidney disease, stage 3 (moderate) Narrative/Plan: * Baseline creatinine function CKD stage 3/4 * Continue to monitor creatinine and GFR closely Current Visit: Yes Status: Acute Code(s): N18.3 - CHRONIC KIDNEY DISEASE, STAGE 3 (MODERATE) SNOMED Code(s): 538882064 (6) Paroxysmal A-fib Narrative/Plan: * Currently normal sinus rhythm * Anticoagulation held at this time we'll continue to monitor daily PT/INR Current Visit: No Status: Acute Code(s): I48.0 - PAROXYSMAL ATRIAL FIBRILLATION SNOMED Code(s): 131175343 Plan: Disposition * Continue current treatment plan awaiting recommendations from ID and pulmonary
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
[2018-11-28 17:29] LABS: Glucose,Whole Blood 102 mg/dL (75-99)
[2018-11-28] MEDS: LINEZOLID 600 MG TAB PEG/G-TUBE SCH (19:00)
[2018-11-28] MEDS: ACETYLCYSTEINE 800 MG/4 ML VIAL INHALATION SCH ×2 (20:38→22:16)
[2018-11-28] MEDS: POTASSIUM CHLORIDE ER 20 MEQ TAB.ER PO SCH (20:58)
[2018-11-28] MEDS: ATORVASTATIN 20 MG TAB PEG/G-TUBE SCH (20:58)
[2018-11-28] MEDS: MONTELUKAST 10 MG TAB PEG/G-TUBE SCH (20:58)
[2018-11-28] MEDS ORDERED: WARFARIN 5 MG TAB PO ONE (21:00)
[2018-11-28 21:34] LABS: Glucose,Whole Blood 139 mg/dL (75-99)
[2018-11-29] MEDS: HYDROcodone/APAP 5-325MG 1 EACH TAB PEG/G-TUBE PRN ×3 (00:20→22:16)
[2018-11-29] MEDS: ALPRAZolam 0.5 MG TAB PEG/G-TUBE PRN ×3 (00:21→22:17)
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
[2018-11-29] MEDS: IPRATROPIUM-ALBUTEROL 3 ML NEB INHALATION SCH ×6 (03:30→23:41)
[2018-11-29 06:15] LABS: Glucose,Whole Blood 132 mg/dL (75-99)
[2018-11-29] MEDS: VANCOMYCIN ORAL SOLUTION 250 MG/5 ML BOTTLE PO SCH ×3 (06:48→18:01)
[2018-11-29] MEDS: CHERRY FLAVOR 60 ML BOTTLE PO SCH ×3 (06:48→18:01)
[2018-11-29] MEDS: LEVOTHYROXINE 75 MCG TAB PEG/G-TUBE SCH (06:48)
[2018-11-29] MEDS: LACTOBACILLUS ACIDOPH & BULGAR 1 EACH PACKET PEG/G-TUBE SCH ×2 (06:48→18:01)
[2018-11-29] MEDS: LINEZOLID 600 MG TAB PEG/G-TUBE SCH ×2 (06:49→18:02)
[2018-11-29] MEDS: ACETYLCYSTEINE 800 MG/4 ML VIAL INHALATION SCH ×4 (07:16→20:28)
[2018-11-29 07:38] LABS: INR 2.2 (<1.2); Prothrombin Time 21.3 sec (9.0-12.0)
[2018-11-29] MEDS: CHOLESTYRAMINE (WITH SUGAR) 4 GM PACKET PEG/G-TUBE SCH ×2 (09:56→22:17)
[2018-11-29] MEDS: FUROSEMIDE 10 MG/ML 2 ML VIAL IV SCH ×2 (09:56→18:01)
[2018-11-29] MEDS: SERTRALINE 100 MG TAB PEG/G-TUBE SCH (09:57)
[2018-11-29] MEDS: AMIODARONE 200 MG TAB PEG/G-TUBE SCH (09:57)
[2018-11-29] MEDS: CLOPIDOGREL 75 MG TAB PEG/G-TUBE SCH (09:57)
[2018-11-29] MEDS: FOLIC ACID 1 MG TAB PEG/G-TUBE SCH (09:57)
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
[2018-11-29 11:41] LABS: Glucose,Whole Blood 143 mg/dL (75-99)
--- NOTE | 2018-11-29 11:51 | P.PN ---
Subjective Progress Note Date: 11/29/18 Patient seen and examined follow-up, patient awake alert, with at bedside currently has a trach collar in place with saturation in the 90s on FiO2 of 35%. Speech therapy notes indicating chopped with nectar thick liquids and chin tuck. Preliminary urine culture growing gram-negative bacilli. Patient seen by MALIK Ny switched to Fortaz, Continued on vancomycin. INR 2.2 today no acute events overnight. The patient continues to be afebrile, no labs available today Objective - Vital Signs Vital signs: Vital Signs Temp 97.8 F 11/29/18 04:00 Pulse 96 11/29/18 10:57 Resp 18 11/29/18 04:00 BP 105/62 11/29/18 04:00 Pulse Ox 95 11/29/18 04:00 Intake & Output 11/28/18 11/29/18 11/29/18 18:59 06:59 18:59 Intake Total 100 260 Output Total 2100 Balance 100 -1840 Weight 76 kg Intake: Oral 0 0 Tube Feeding 100 260 Output: Urine 2100 Other: Voiding Method Indwelling Catheter Indwelling Catheter - Exam Constitutional: No acute distress, conversant, pleasant Eyes: Anicteric sclerae, moist conjunctiva, no lid-lag, PERRLA ENMT: NC/AT,Oropharynx clear, no erythema, exudates Neck: Midline tracheostomy in place with #6 uncuffed, fenestrated trach in place Lungs: Scattered rhonchi in the right middle lung field CV: Heart regular in rate and rhythm, No murmurs, gallops, improving + 1.5 peripheral edema Abdominal: Soft Nontender, nom distended, no guarding, no rebound or rigidity, Normoactive bowel sounds No hepatomegaly, No splenomegaly, No palpable mass No abdominal wall hernia noted Skin: Normal temperature, tone, texture, turgor, No induration No subcutaneous nodules, No rash, lesions, No ulcers Extremities:No digital cyanosis No clubbing, Pedal pulses intact and symmetrical Radial pulses intact and symmetrical Normal gait and station, No calf tenderness Psychiatric: Alert and oriented to person, place and time, Appropriate affect Intact judgement Neuro: Muscles Strength 5/5 in all 4 extremities, Sensation to light touch grossly present throughout, Cranial nerves II-XII grossly intact. No focal sensory deficits - Labs CBC & Chem 7: 11/28/18 06:06 11/28/18 06:06 Labs: Abnormal Lab Results - Last 24 Hours (Table) 11/28/18 11/28/18 11/29/18 Range/Units 17:04 21:32 06:14 PT (9.0-12.0) sec INR (<1.2) POC Glucose (mg/dL) 102 H 139 H 132 H (75-99) mg/dL 11/29/18 11/29/18 Range/Units 06:32 11:35 PT 21.3 H (9.0-12.0) sec INR 2.2 H (<1.2) POC Glucose (mg/dL) 143 H (75-99) mg/dL Microbiology - Last 24 Hours (Table) 11/27/18 14:41 Urine Culture - Preliminary Urine,Catheterized Gram Neg Bacilli 11/27/18 15:07 Blood Culture - Preliminary Blood No Growth after 24 hours Assessment and Plan (1) Acute on chronic respiratory failure with hypoxia Narrative/Plan: * Multifactorial secondary to acute on chronic diastolic CHF in the setting of underlying possible healthcare associated pneumonia as CT showing patchy right middle lobe infiltrate * Continue supplemental oxygen, continue DuoNeb that her breathing treatments, continue diuresis with IV Lasix, continue inhaled Mucomyst continue chest physiotherapy * CT also showing stenotic trachea just below the tracheostomy tube * pulmonary consulted for further recommendations Current Visit: No Status: Acute Code(s): J96.21 - ACUTE AND CHRONIC RESPIRATORY FAILURE WITH HYPOXIA SNOMED Code(s): 73101490 (2) Acute diastolic (congestive) heart failure Narrative/Plan: * Acute on chronic diastolic CHF exacerbation * Echocardiogram showing preserved LVEF of 55-60%, with grade 2 diastolic dysfunction, moderately dilated left atrium, moderate TR, mild pAH * Continue diuresis with Lasix 20 mg IV every 8 hr Current Visit: No Status: Acute Code(s): I50.31 - ACUTE DIASTOLIC (CO NGESTIVE) HEART FAILURE SNOMED Code(s): 654535878 (3) Sepsis Narrative/Plan: * Secondary to pneumonia and urinary tract infection * Continue current antibiotic regimen with Zyvox and ceftaz at a.m. * Patient afebrile recheck labs today * Appreciate ID recommendations * Patient also continued on oral vancomycin for previous C. diff colitis Current Visit: Yes Status: Acute Code(s): A41.9 - SEPSIS, UNSPECIFIED ORGANISM SNOMED Code(s): 79654413 (4) Urinary tract infection Narrative/Plan: * Continue current antibiotic regimen * Preliminary suggesting gram-negative bacilli Current Visit: Yes Status: Acute Code(s): N39.0 - URINARY TRACT INFECTION, SITE NOT SPECIFIED SNOMED Code(s): 94999095 (5) Chronic kidney disease, stage 3 (moderate) Narrative/Plan: * Baseline creatinine function CKD stage 3/4 * Continue to monitor creatinine and GFR closely Current Visit: Yes Status: Chronic Code(s): N18.3 - CHRONIC KIDNEY DISEASE, STAGE 3 (MODERATE) SNOMED Code(s): 745364235 (6) Paroxysmal A-fib Narrative/Plan: * Currently normal sinus rhythm * Anticoagulation held at this time we'll continue to monitor daily PT/INR Current Visit: No Status: Chronic Code(s): I48.0 - PAROXYSMAL ATRIAL FIBRILLATION SNOMED Code(s): 260073489 Plan: Disposition * Continue current treatment plan appreciate recommendations from ID and pulmonary * Anticipated discharge 2-5 days
[2018-11-29 12:03] LABS: Anisocytosis Slight; Basophils # (A) 0.1 k/uL (0-0.2); Basophils % (A) 1 %; Eosinophils # (A) 0.4 k/uL (0-0.7); Eosinophils % (A) 3 %; HCT 26.9 % (34.0-46.0); HGB 8.5 gm/dL (11.4-16.0); Hypochromasia Moderate; Lymphocytes # (A) 1.5 k/uL (1.0-4.8); Lymphocytes % (A) 14 %; MCH 30.7 pg (25.0-35.0); MCHC 31.8 g/dL (31.0-37.0); MCV 96.5 fL (80.0-100.0); Macrocytosis Slight; Mean Platelet Volume 7.8; Monocytes # (A) 0.6 k/uL (0-1.0); Monocytes % (A) 5 %; Neutrophils # (A) 8.4 k/uL (1.3-7.7); Neutrophils % (A) 75 %; Platelet Count 271 k/uL (150-450); Poikilocytosis Slight; RBC 2.79 m/uL (3.80-5.40); WBC 11.1 k/uL (3.8-10.6)
[2018-11-29 12:06] LABS: Albumin 2.8 g/dL (3.5-5.0); Calcium 8.1 mg/dL (8.4-10.2); Total Bilirubin 0.3 mg/dL (0.2-1.3); Total Protein 6.6 g/dL (6.3-8.2)
[2018-11-29 16:38] LABS: Glucose,Whole Blood 142 mg/dL (75-99)
[2018-11-29] MEDS ORDERED: WARFARIN 5 MG TAB PO ONE (18:00)
[2018-11-29 21:22] LABS: Glucose,Whole Blood 117 mg/dL (75-99)
[2018-11-29] MEDS: MONTELUKAST 10 MG TAB PEG/G-TUBE SCH (22:17)
[2018-11-29] MEDS: QUEtiapine 100 MG TAB PO SCH (22:17)
[2018-11-29] MEDS: ATORVASTATIN 20 MG TAB PEG/G-TUBE SCH (22:17)
[2018-11-29] MEDS: POTASSIUM CHLORIDE ER 20 MEQ TAB.ER PO SCH (22:17)
[2018-11-29] MEDS: PANTOPRAZOLE SODIUM 40 MG GRANULE PKT PEG/G-TUBE SCH (22:18)
[2018-11-30] MEDS: VANCOMYCIN ORAL SOLUTION 250 MG/5 ML BOTTLE PO SCH ×4 (00:39→17:02)
[2018-11-30] MEDS: CHERRY FLAVOR 60 ML BOTTLE PO SCH ×4 (00:39→17:03)
[2018-11-30] MEDS: FUROSEMIDE 10 MG/ML 2 ML VIAL IV SCH ×3 (00:55→15:42)
[2018-11-30] MEDS ORDERED: IPRATROPIUM-ALBUTEROL 3 ML NEB ONE (04:00)
[2018-11-30] MEDS: LEVOTHYROXINE 75 MCG TAB PEG/G-TUBE SCH (05:39)
[2018-11-30] MEDS: LACTOBACILLUS ACIDOPH & BULGAR 1 EACH PACKET PEG/G-TUBE SCH ×2 (05:39→17:02)
--- NOTE | 2018-11-30 05:39 | PN ---
PROGRESS NOTE DATE OF SERVICE: 11/29/2018 REASON FOR FOLLOWUP: Pneumonia and UTI. INTERVAL HISTORY: The patient is currently afebrile. The patient has been breathing comfortably. He did have minimal cough, not bringing up any sputum. No chest pain. No nausea, no vomiting. No abdominal pain. No diarrhea. PHYSICAL EXAMINATION: On examination, blood pressure 137/71 with a pulse of 89, temperature 97.6. She is 98% on trach collar. General description is a middle aged female lying in bed in no distress. RESPIRATORY SYSTEM: Unlabored breathing with decreased intensity of breath sounds. No wheeze. HEART: S1, S2. Regular rate and rhythm. ABDOMEN: Soft, no tenderness. LABS: Hemoglobin is 8.5, white count 11.1 with a BUN of 48, creatinine is 1.83. DIAGNOSTIC IMPRESSION AND PLAN: 1. Patient admitted to the hospital with sepsis in a patient who did have a significant hypoxia with right middle lobe infiltrate, concern for aspiration pneumonitis with the cultures currently pending. 2. The patient with positive urine with multidrug resistant Enterobacter though patient did show overall clinical improvement with resolution of fever with question of possible contaminate. Repeat urine will be added and antibiotic will be switched to meropenem. Monitor clinical course closely. Continue supportive care. MMODL / IJN: [id number] /
[2018-11-30 06:12] LABS: Glucose,Whole Blood 126 mg/dL (75-99)
[2018-11-30] MEDS: IPRATROPIUM-ALBUTEROL 3 ML NEB INHALATION SCH ×6 (06:27→23:21)
[2018-11-30] MEDS: LINEZOLID 600 MG TAB PEG/G-TUBE SCH ×2 (06:30→17:02)
[2018-11-30 06:56] LABS: Anisocytosis Slight; Basophils % (A) 0 %; Eosinophils # (A) 0.4 k/uL (0-0.7); Eosinophils % (A) 4 %; HCT 28.9 % (34.0-46.0); HGB 9.4 gm/dL (11.4-16.0); Lymphocytes # (A) 1.6 k/uL (1.0-4.8); Lymphocytes % (A) 15 %; MCH 30.5 pg (25.0-35.0); MCHC 32.7 g/dL (31.0-37.0); MCV 93.4 fL (80.0-100.0); Mean Platelet Volume 7.1; Monocytes # (A) 0.5 k/uL (0-1.0); Monocytes % (A) 4 %; Neutrophils # (A) 7.9 k/uL (1.3-7.7); Neutrophils % (A) 75 %; Platelet Count 269 k/uL (150-450); Poikilocytosis Slight; RBC 3.09 m/uL (3.80-5.40); RDW 18.3 % (11.5-15.5); WBC 10.6 k/uL (3.8-10.6)
[2018-11-30 07:09] LABS: Albumin 3.1 g/dL (3.5-5.0); Calcium 8.5 mg/dL (8.4-10.2); Total Bilirubin 0.3 mg/dL (0.2-1.3)
[2018-11-30 07:15] LABS: Potassium 2.7 mmol/L (3.5-5.1)
[2018-11-30] MEDS ORDERED: Potassium Replacement Protocol 1 EACH MISC MISCELLANE PRN (07:27)
[2018-11-30] MEDS: ACETYLCYSTEINE 800 MG/4 ML VIAL INHALATION SCH ×4 (07:53→20:22)
[2018-11-30] MEDS: POTASSIUM CHLORIDE ER 20 MEQ TAB.ER PO SCH ×4 (08:09→21:38)
[2018-11-30] MEDS: ALPRAZolam 0.5 MG TAB PEG/G-TUBE PRN ×3 (08:09→21:38)
[2018-11-30] MEDS: SERTRALINE 100 MG TAB PEG/G-TUBE SCH (08:10)
[2018-11-30] MEDS: AMIODARONE 200 MG TAB PEG/G-TUBE SCH (08:10)
[2018-11-30] MEDS: HYDROcodone/APAP 5-325MG 1 EACH TAB PEG/G-TUBE PRN ×2 (08:10→15:42)
[2018-11-30] MEDS: CLOPIDOGREL 75 MG TAB PEG/G-TUBE SCH (08:10)
[2018-11-30] MEDS: FOLIC ACID 1 MG TAB PEG/G-TUBE SCH (08:10)
[2018-11-30] MEDS: POTASSIUM CHLORIDE 20 MEQ in WATER FOR INJECTION 1 100ML.BAG IVPB SCH ×3 (08:19→15:45)
[2018-11-30] MEDS: CHOLESTYRAMINE (WITH SUGAR) 4 GM PACKET PEG/G-TUBE SCH ×2 (08:30→21:39)
[2018-11-30] MEDS: MAGNESIUM SULFATE-D5W PMX 1 GM in DEXTROSE/WATER 1 100ML.BAG IVPB SCH ×3 (09:46→12:07)
[2018-11-30 11:50] LABS: Glucose,Whole Blood 148 mg/dL (75-99)
--- NOTE | 2018-11-30 14:35 | CDI ---
Documentation Clarification Form Date: 11/30/2018 2:10:03 PM From: Yakelin Hernandez RN CCDS Admit Date: 11/27/2018 4:31:00 PM Patient Name: Madina Nick Visit Number: [id number] Discharge Date: ATTENTION: The Clinical Documentation Specialists (CDI) and [facility] Coding Staff appreciate your assistance in clarifying documentation. Please respond to the clarification below the line at the bottom and electronically sign. The CDI & [facility] Coding staff will review the response and follow-up if needed. Please note: Queries are made part of the Legal Health Record. If you have any questions, please contact the author of this message via ITS. Dr. Mirza Sepulveda Underlying Possible Healthcare Associated Pneumonia was documented in your Progress note 11/29/2018 History/Risk Factors: 63 year old female presents to the ED with shortness of breath. Medical history of Pneumonia, Tracheostomy chronic respiratory failure, Cdiff Clinical Indicators: Vital signs: 134/104 102.2 95 87% trach collar 10L Fi02 60 WBC 15.[address] of chest - Patchy infiltrates greater in the right middle lobe . Tracheostomy tube is in position. The trachea below the tracheostomy tube is stenotic with AP dimension of 0.5cm . Small left pleural effusion. # Enlarged mediastinal adenopathy Lung/Breathing assessment scattered rhonchi in the right middle lung field Treatment: Antibiotics Ceftazidime ivpb, Vancomycin ivpb oral Breathing Tx: Duoneb Mucomyst Singulair In order to capture the severity of condition, please clarify if the condition signifies and you are treating for: * Unable to determine (Last Revision: July 2017) MTDD
[2018-11-30 16:36] LABS: Glucose,Whole Blood 119 mg/dL (75-99)
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
[2018-11-30] MEDS ORDERED: WARFARIN 2 MG TAB PO ONE (18:00)
--- NOTE | 2018-11-30 18:38 | P.PN ---
Subjective Progress Note Date: 11/30/18 Patient seen and examined follow-up, patient awake alert, with at bedside currently has a trach collar in place with saturation in the 90s on FiO2 of 28%. Speech therapy notes indicating chopped with nectar thick liquids and chin tuck. Urine culture growing Enterobacter Clocoae. Patient seen by MALIK Ny switched to Fortaz, Continued on Zyvox INR 3.0 today no acute events overnight. Potassium was 2.7 magnesium 1.3 today. The patient continues to be afebrile Objective - Vital Signs Vital signs: Vital Signs Temp 97.5 F L 11/30/18 16:00 Pulse 88 11/30/18 16:00 Resp 22 11/30/18 16:00 BP 132/79 11/30/18 16:00 Pulse Ox 100 11/30/18 16:00 Intake & Output 11/29/18 11/30/18 11/30/18 18:59 06:59 18:59 Intake Total 720 280 600 Output Total 1500 1000 1750 Balance -780 -720 -1150 Intake: Oral 480 240 Tube Feeding 240 280 360 Output: Urine 1500 1000 1750 Uretheral (Edwards) 1750 Other: Voiding Method Indwelling Catheter Indwelling Catheter Indwelling Catheter - Exam Constitutional: No acute distress, conversant, pleasant Eyes: Anicteric sclerae, moist conjunctiva, no lid-lag, PERRLA ENMT: NC/AT,Oropharynx clear, no erythema, exudates Neck: Midline tracheostomy in place with #6 uncuffed, fenestrated trach in analisa ce Lungs: Scattered rhonchi in the right middle lung field CV: Heart regular in rate and rhythm, No murmurs, gallops, improving + 1.5 peripheral edema Abdominal: Soft Nontender, nom distended, no guarding, no rebound or rigidity, Normoactive bowel sounds No hepatomegaly, No splenomegaly, No palpable mass No abdominal wall hernia noted Skin: Normal temperature, tone, texture, turgor, No induration No subcutaneous nodules, No rash, lesions, No ulcers Extremities:No digital cyanosis No clubbing, Pedal pulses intact and symmetrical Radial pulses intact and symmetrical Normal gait and station, No calf tenderness Psychiatric: Alert and oriented to person, place and time, Appropriate affect Intact judgement Neuro: Muscles Strength 5/5 in all 4 extremities, Sensation to light touch grossly present throughout, Cranial nerves II-XII grossly intact. No focal sensory deficits - Labs CBC & Chem 7: 11/30/18 06:20 11/30/18 06:20 Labs: Abnormal Lab Results - Last 24 Hours (Table) 11/29/18 11/30/18 11/30/18 Range/Units 21:21 06:10 06:20 RBC (3.80-5.40) m/uL Hgb (11.4-16.0) gm/dL Hct (34.0-46.0) % RDW (11.5-15.5) % Neutrophils # (1.3-7.7) k/uL PT 29.0 H (9.0-12.0) sec INR 3.0 H (<1.2) Potassium (3.5-5.1) mmol/L BUN (7-17) mg/dL Creatinine (0.52-1.04) mg/dL Glucose (74-99) mg/dL POC Glucose (mg/dL) 117 H 126 H (75-99) mg/dL Magnesium (1.6-2.3) mg/dL Alkaline Phosphatase (38-126) U/L Albumin (3.5-5.0) g/dL 11/30/18 11/30/18 11/30/18 Range/Units 06:20 06:20 06:20 RBC 3.09 L (3.80-5.40) m/uL Hgb 9.4 L (11.4-16.0) gm/dL Hct 28.9 L (34.0-46.0) % RDW 18.3 H (11.5-15.5) % Neutrophils # 7.9 H (1.3-7.7) k/uL PT (9.0-12.0) sec INR (<1.2) Potassium 2.7 L* (3.5-5.1) mmol/L BUN 40 H (7-17) mg/dL Creatinine 1.81 H (0.52-1.04) mg/dL Glucose 112 H (74-99) mg/dL POC Glucose (mg/dL) (75-99) mg/dL Magnesium 1.3 L (1.6-2.3) mg/dL Alkaline Phosphatase 178 H (38-126) U/L Albumin 3.1 L (3.5-5.0) g/dL 11/30/18 11/30/18 Range/Units 11:48 16:34 RBC (3.80-5.40) m/uL Hgb (11.4-16.0) gm/dL Hct (34.0-46.0) % RDW (11.5-15.5) % Neutrophils # (1.3-7.7) k/uL PT (9.0-12.0) sec INR (<1.2) Potassium (3.5-5.1) mmol/L BUN (7-17) mg/dL Creatinine (0.52-1.04) mg/dL Glucose (74-99) mg/dL POC Glucose (mg/dL) 148 H 119 H (75-99) mg/dL Magnesium (1.6-2.3) mg/dL Alkaline Phosphatase (38-126) U/L Albumin (3.5-5.0) g/dL Microbiology - Last 24 Hours (Table) 11/27/18 15:07 Blood Culture - Preliminary Blood No Growth after 72 hours 11/27/18 14:41 Urine Culture - Final Urine,Catheterized Enterobacter cloacae Assessment and Plan (1) Acute on chronic respiratory failure with hypoxia Narrative/Plan: * Multifactorial secondary to acute on chronic diastolic CHF in the setting of underlying possible healthcare associated pneumonia as CT showing patchy right middle lobe infiltrate * Continue supplemental oxygen, continue DuoNeb that her breathing treatments, continue diuresis with IV Lasix, continue inhaled Mucomyst continue chest physiotherapy * CT also showing stenotic trachea just below the tracheostomy tube * pulmonary consulted for further recommendations Current Visit: No Status: Acute Code(s): J96.21 - ACUTE AND CHRONIC RESPIRATORY FAILURE WITH HYPOXIA SNOMED Code(s): 61504381 (2) Acute diastolic (congestive) heart failure Narrative/Plan: * Acute on chronic diastolic CHF exacerbation * Echocardiogram showing preserved LVEF of 55-60%, with grade 2 diastolic dysfunction, moderately dilated left atrium, moderate TR, mild pAH * Continue diuresis with we'll switch to Torsemide 10 mg per PEG twice a day Current Visit: No Status: Acute Code(s): I50.31 - ACUTE DIASTOLIC (CONGESTIVE) HEART FAILURE SNOMED Code(s): 679588030 (3) Sepsis Narrative/Plan: * Secondary to pneumonia and urinary tract infection * Continue current antibiotic regimen with Zyvox and ceftaz at a.m. * Patient afebrile recheck labs today * Appreciate ID recommendations * Patient also continued on oral vancomycin for previous C. diff colitis Current Visit: Yes Status: Acute Code(s): A41.9 - SEPSIS, UNSPECIFIED ORGANISM SNOMED Code(s): 99415116 (4) Urinary tract infection Narrative/Plan: * Continue current antibiotic regimen * Urine culture positive for Enterobacter Clocoae Current Visit: Yes Status: Acute Code(s): N39.0 - URINARY TRACT INFECTION, SITE NOT SPECIFIED SNOMED Code(s): 41863740 (5) Chronic kidney disease, stage 3 (moderate) Narrative/Plan: * Baseline creatinine function CKD stage 3/4 * Continue to monitor creatinine and GFR closely Current Visit: Yes Status: Chronic Code(s): N18.3 - CHRONIC KIDNEY DISEASE, STAGE 3 (MODERATE) SNOMED Code(s): 246399191 (6) Paroxysmal A-fib Narrative/Plan: * Currently normal sinus rhythm * With supratherapeutic INR, continue monitoring PT/INR Current Visit: No Status: Chronic Code(s): I48.0 - PAROXYSMAL ATRIAL FIBRILLATION SNOMED Code(s): 609539258 (7) Hypokalemia Narrative/Plan: * Likely secondary to ongoing diuretics we'll replace and recheck tomorrow Current Visit: Yes Status: Acute Code(s): E87.6 - HYPOKALEMIA SNOMED Code(s): 32550487 (8) Hypomagnesemia Narrative/Plan: We'll replace and recheck tomorrow Current Visit: Yes Status: Acute Code(s): E83.42 - HYPOMAGNESEMIA SNOMED Code(s): 995227473 Plan: Disposition * Continue current treatment plan appreciate recommendations from ID and pulmonary * Anticipated discharge 1-2 days
[2018-11-30] MEDS ORDERED: METOPROLOL TARTRATE 50 MG TAB PEG/G-TUBE SCH (18:45)
[2018-11-30] MEDS ORDERED: QUEtiapine 100 MG TAB PEG/G-TUBE SCH (21:00)
[2018-11-30 21:02] LABS: Glucose,Whole Blood 112 mg/dL (75-99)
[2018-11-30] MEDS: MONTELUKAST 10 MG TAB PEG/G-TUBE SCH (21:35)
[2018-11-30] MEDS: ATORVASTATIN 20 MG TAB PEG/G-TUBE SCH (21:35)
[2018-11-30] MEDS: METOPROLOL TARTRATE 50 MG TAB PEG/G-TUBE SCH (21:36)
[2018-11-30] MEDS: TORSEMIDE 20 MG TAB PEG/G-TUBE SCH (21:37)
[2018-11-30] MEDS: PANTOPRAZOLE SODIUM 40 MG GRANULE PKT PEG/G-TUBE SCH (21:39)
[2018-11-30 21:57] LABS: Magnesium 2.4 mg/dL (1.6-2.3); Potassium 4.4 mmol/L (3.5-5.1)
[2018-12-01] MEDS: CHERRY FLAVOR 60 ML BOTTLE PO SCH ×4 (01:11→17:22)
[2018-12-01] MEDS: VANCOMYCIN ORAL SOLUTION 250 MG/5 ML BOTTLE PO SCH ×5 (01:11→23:41)
[2018-12-01] MEDS: IPRATROPIUM-ALBUTEROL 3 ML NEB INHALATION SCH ×6 (03:55→23:51)
[2018-12-01] MEDS: LACTOBACILLUS ACIDOPH & BULGAR 1 EACH PACKET PEG/G-TUBE SCH (06:04)
[2018-12-01] MEDS: LEVOTHYROXINE 75 MCG TAB PEG/G-TUBE SCH (06:04)
[2018-12-01] MEDS: METOPROLOL TARTRATE 50 MG TAB PEG/G-TUBE SCH (06:04)
[2018-12-01] MEDS: HYDROcodone/APAP 5-325MG 1 EACH TAB PEG/G-TUBE PRN (06:05)
[2018-12-01 06:24] LABS: Glucose,Whole Blood 110 mg/dL (75-99)
[2018-12-01] MEDS: LINEZOLID 600 MG TAB PEG/G-TUBE SCH (06:25)
--- NOTE | 2018-12-01 06:49 | PN ---
PROGRESS NOTE DATE OF SERVICE: 11/30/2018 REASON FOR FOLLOWUP: 1. Sepsis, source likely pneumonia. 2. Positive urine culture, likely colonization or asymptomatic bacteriuria. INTERVAL HISTORY: The patient is currently afebrile. The patient is breathing more comfortably. The patient's cough has decreased in intensity and is less productive. No chest pain. No nausea, no vomiting. No abdominal pain. No diarrhea and denies having any urinary symptoms. PHYSICAL EXAMINATION: On examination, blood pressure is 131/76, pulse of 83, temperature 98.1. She is 96% on trach collar. General description is a middle-aged female up in the bed in no distress. RESPIRATORY SYSTEM: Unlabored breathing. Decreased breath sounds at bases. No wheeze. HEART: S1, S2. Regular rate and rhythm. ABDOMEN: Soft, no tenderness. LABS: Hemoglobin is 9.4, white count 10.6, BUN of 40, creatinine is 1.81. Blood culture is negative. Urine with multi-drug resistant Enterobacter. Repeat UA culture was ordered yesterday and cultures done and add UA. DIAGNOSTIC IMPRESSION AND PLAN: 1. Patient admitted to the hospital with sepsis. Source is pneumonia with question of possible gram negative. We will try to obtain a sputum tonight on her antibiotics. Continue the vancomycin and Fortaz at this point. Will monitor her closely. 2. Positive urine culture with multidrug resistant Enterobacter in this patient currently with no urinary symptoms likely representing an asymptomatic bacteriuria and no need for any antibiotic therapy for the same. MMODL / IJN: [id number] /
[2018-12-01 07:39] LABS: INR 3.8 (<1.2); Prothrombin Time 36.2 sec (9.0-12.0)
[2018-12-01 08:05] LABS: Albumin 3.5 g/dL (3.5-5.0); Calcium 9.3 mg/dL (8.4-10.2); Magnesium 2.3 mg/dL (1.6-2.3); Potassium 4.5 mmol/L (3.5-5.1); Total Bilirubin 0.3 mg/dL (0.2-1.3); Total Protein 8.3 g/dL (6.3-8.2)
[2018-12-01 08:35] LABS: Anisocytosis Slight; Basophils % (A) 0 %; Eosinophils # (A) 0.5 k/uL (0-0.7); Eosinophils % (A) 4 %; HCT 32.7 % (34.0-46.0); HGB 10.7 gm/dL (11.4-16.0); Lymphocytes % (A) 16 %; MCH 30.5 pg (25.0-35.0); MCHC 32.8 g/dL (31.0-37.0); MCV 92.9 fL (80.0-100.0); Macrocytosis Slight; Mean Platelet Volume 7.4; Monocytes # (A) 0.5 k/uL (0-1.0); Monocytes % (A) 4 %; Neutrophils # (A) 9.4 k/uL (1.3-7.7); Neutrophils % (A) 75 %; Platelet Count 269 k/uL (150-450); Poikilocytosis Slight; RBC 3.52 m/uL (3.80-5.40); RDW 19.6 % (11.5-15.5); WBC 12.6 k/uL (3.8-10.6)
[2018-12-01] MEDS: ACETYLCYSTEINE 800 MG/4 ML VIAL INHALATION SCH ×4 (09:11→20:47)
--- NOTE | 2018-12-01 09:58 | FL ---
EXAMINATION TYPE: FL barium swallow w video DATE OF EXAM: 12/01/2018 MODIFIED SWALLOW / DEGLUTITION STUDY CLINICAL HISTORY: Dysphagia. TECHNIQUE: Deglutition study is performed utilizing thin liquid barium, barium thick applesauce, and barium coated cracker. 1 minute and 11 seconds of fluoroscopy time was utilized with 0 fluoroscopic images saved as the examination was video recorded. COMPARISON: None. FINDINGS: The oral and pharyngeal phases show satisfactory initiation and propagation with all modali ties tested. Normal mastication is seen with solid modalities tested. There is no evidence of penet ration or aspiration with any modality tested. No significant pharyngeal residue was appreciated. IMPRESSION: Normal deglutition study. Please refer to speech therapist notes for further details if necessary.
[2018-12-01] MEDS: AMIODARONE 200 MG TAB PEG/G-TUBE SCH (10:49)
[2018-12-01] MEDS: FOLIC ACID 1 MG TAB PEG/G-TUBE SCH (10:50)
[2018-12-01] MEDS: CLOPIDOGREL 75 MG TAB PEG/G-TUBE SCH (10:50)
[2018-12-01] MEDS: CHOLESTYRAMINE (WITH SUGAR) 4 GM PACKET PEG/G-TUBE SCH (10:50)
[2018-12-01] MEDS: SERTRALINE 100 MG TAB PEG/G-TUBE SCH (10:51)
[2018-12-01] MEDS: ALPRAZolam 0.5 MG TAB PEG/G-TUBE PRN (10:51)
[2018-12-01] MEDS: TORSEMIDE 20 MG TAB PEG/G-TUBE SCH (10:58)
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
[2018-12-01] MEDS ORDERED: PROMETHAZINE 25 MG TAB PO PRN (11:23)
[2018-12-01 11:46] LABS: Glucose,Whole Blood 115 mg/dL (75-99)
[2018-12-01] MEDS: METOPROLOL TARTRATE 25 MG TAB PO SCH ×2 (12:02→20:46)
[2018-12-01] MEDS: HYDROcodone/APAP 5-325MG 1 EACH TAB PO PRN ×2 (12:14→17:26)
[2018-12-01 12:31] LABS: Appearance,Urine Clear (Clear); Bacteria,Urine Rare /hpf; Bilirubin,Urine Negative (Negative); Blood,Urine Large (Negative); Color,Urine Yellow; Glucose,Urine (UA) Negative (Negative); Ketones,Urine Negative (Negative); Leukocyte Esterase,Urine Small (Negative); Mucus,Urine Rare /hpf; Nitrite,Urine Negative (Negative); Protein,Urine 1+ (Negative); RBC,Urine >182 /hpf (0-5); Urobilinogen,Urine <2.0 mg/dL (<2.0)
[2018-12-01 17:07] LABS: Glucose,Whole Blood 106 mg/dL (75-99)
[2018-12-01] MEDS: ALPRAZolam 0.5 MG TAB PO PRN (17:22)
[2018-12-01] MEDS: LACTOBACILLUS ACIDOPH & BULGAR 1 EACH PACKET PO SCH ×2 (17:22→17:30)
[2018-12-01] MEDS: LINEZOLID 600 MG TAB PO SCH (17:22)
[2018-12-01] MEDS ORDERED: WARFARIN 0.5 MG TAB PO ONE (18:00)
[2018-12-01 20:30] LABS: Glucose,Whole Blood 102 mg/dL (75-99)
[2018-12-01] MEDS: TORSEMIDE 20 MG TAB PO SCH (20:39)
[2018-12-01] MEDS: QUEtiapine 100 MG TAB PO SCH (20:39)
[2018-12-01] MEDS: POTASSIUM CHLORIDE ER 20 MEQ TAB.ER PO SCH (20:39)
[2018-12-01] MEDS: PANTOPRAZOLE 40 MG TABLET PO SCH (20:40)
[2018-12-01] MEDS: ATORVASTATIN 20 MG TAB PO SCH (20:40)
[2018-12-01] MEDS: MONTELUKAST 10 MG TAB PO SCH (20:42)
[2018-12-01] MEDS: CHOLESTYRAMINE (WITH SUGAR) 4 GM PACKET PO SCH (20:42)
[2018-12-02] MEDS: CHERRY FLAVOR 60 ML BOTTLE PO SCH ×5 (01:33→23:14)
[2018-12-02] MEDS: IPRATROPIUM-ALBUTEROL 3 ML NEB INHALATION SCH ×6 (03:05→23:08)
--- NOTE | 2018-12-02 05:07 | PN ---
PROGRESS NOTE DATE OF SERVICE: 12/01/2018 REASON FOR FOLLOWUP: Sepsis, source is pneumonia. INTERVAL HISTORY: The patient is currently afebrile. The patient is breathing more comfortably. The patient did have some cough, though is decreased in intensity, has been dry in nature. No chest pain. No nausea or vomiting. She did pass her swallow test. Still has a Edwards catheter. No abdominal pain. Denies having any diarrhea. PHYSICAL EXAMINATION: On examination, her blood pressure is 157/82 with a pulse of 76, temperature 97.9. She is 96% on trach collar. General description is a middle-aged female up in the bed in no distress. RESPIRATORY SYSTEM: Unlabored breathing with decreased breath sounds at the bases, no wheeze. HEART: S1, S2. Regular rate and rhythm. ABDOMEN: Soft, no tenderness. EXTREMITIES: No edema of the feet. LABS: Creatinine is 1.74. Hemoglobin is 10.7, white count 12.6. DIAGNOSTIC IMPRESSION AND PLAN: Patient admitted to the hospital with sepsis. Source is likely pneumonia possible aspiration. Clinically doubt urinary tract infection as the patient did show overall clinical improvement without getting treatment for the bacteria she has growing in her urine. We will repeat a chest x-ray in the a.m. Unfortunately, no sputum culture was done though requested. Currently on vancomycin and ceftazidime with a previous culture positive for methicillin-resistant Staphylococcus aureus and Pseudomonas. May consider short course of oral Zyvox on discharge to finish her course of treatment. Continue supportive care. MMODL / IJN: [id number] /
[2018-12-02] MEDS: LINEZOLID 600 MG TAB PO SCH ×2 (05:52→18:16)
[2018-12-02] MEDS: VANCOMYCIN ORAL SOLUTION 250 MG/5 ML BOTTLE PO SCH ×4 (05:55→23:14)
[2018-12-02] MEDS: LACTOBACILLUS ACIDOPH & BULGAR 1 EACH PACKET PO SCH ×2 (05:55→18:12)
[2018-12-02] MEDS: LEVOTHYROXINE 75 MCG TAB PO SCH (05:55)
[2018-12-02] MEDS: METOPROLOL TARTRATE 25 MG TAB PO SCH ×3 (05:55→20:26)
[2018-12-02 06:22] LABS: Glucose,Whole Blood 132 mg/dL (75-99)
[2018-12-02] MEDS: ACETYLCYSTEINE 800 MG/4 ML VIAL INHALATION SCH ×4 (08:30→20:32)
[2018-12-02 08:48] LABS: INR 3.4 (<1.2); Prothrombin Time 32.3 sec (9.0-12.0)
[2018-12-02] MEDS: TORSEMIDE 20 MG TAB PO SCH ×2 (10:36→20:25)
[2018-12-02] MEDS: CLOPIDOGREL 75 MG TAB PO SCH (10:37)
[2018-12-02] MEDS: CHOLESTYRAMINE (WITH SUGAR) 4 GM PACKET PO SCH ×2 (10:37→20:26)
[2018-12-02] MEDS: FOLIC ACID 1 MG TAB PO SCH (10:37)
[2018-12-02] MEDS: HYDROcodone/APAP 5-325MG 1 EACH TAB PO PRN ×2 (10:38→18:12)
[2018-12-02] MEDS: AMIODARONE 200 MG TAB PO SCH (10:38)
[2018-12-02] MEDS: ALPRAZolam 0.5 MG TAB PO PRN ×2 (10:38→20:26)
[2018-12-02] MEDS: SERTRALINE 100 MG TAB PO SCH (10:38)
[2018-12-02 11:47] LABS: Glucose,Whole Blood 127 mg/dL (75-99)
--- NOTE | 2018-12-02 13:40 | P.PN ---
Subjective Progress Note Date: 12/01/18 Patient seen and examined follow-up, patient awake alert, with at bedside, patient feeling like she's back to her baseline feeling good today. Patient had her swallow evaluation done and has been upgraded to regular diet, I discussed with dietitian recommends continuing tube feeds until the patient is able to have at least 60% of her daily calories through eating. No acute events overnight Objective - Vital Signs Vital signs: Vital Signs Temp 97.4 F L 12/01/18 12:32 Pulse 80 12/01/18 12:39 Resp 15 12/01/18 12:32 BP 168/94 12/01/18 12:32 Pulse Ox 95 12/01/18 12:00 Intake & Output 11/30/18 12/01/18 12/01/18 18:59 06:59 18:59 Intake Total 600 360 360 Output Total 1750 3470 500 Balance -1150 -3110 -140 Weight 71 kg 71 kg Intake: Oral 240 Tube Feeding 360 360 360 Output: Urine 1750 3470 500 Uretheral (Edwards) 1750 1750 Other: Voiding Method Indwelling Catheter Indwelling Catheter Indwelling Catheter # Bowel Movements 3 - Exam Constitutional: No acute distress, conversant, pleasant Eyes: Anicteric sclerae, moist conjunctiva, no lid-lag, PERRLA ENMT: NC/AT,Oropharynx clear, no erythema, exudates Neck: Midline tracheostomy in place with #6 uncuffed, fenestrated trach in place Lungs: Coarse sounding upper airway sounds, diminished in the bases CV: Heart regular in rate and rhythm, No murmurs, gallops, improving + 1.5 peripheral edema Abdominal: Soft Nontender, nom distended, no guarding, no rebound or rigidity, Normoactive bowel sounds No hepatomegaly, No splenomegaly, No palpable mass No abdominal wall hernia noted Skin: Normal temperature, tone, texture, turgor, No induration No subcutaneous nodules, No rash, lesions, No ulcers Extremities:No digital cyanosis No clubbing, Pedal pulses intact and symmetrical Radial pulses intact and symmetrical Normal gait and station, No c krissy tenderness Psychiatric: Alert and oriented to person, place and time, Appropriate affect Intact judgement Neuro: Muscles Strength 5/5 in all 4 extremities, Sensation to light touch grossly present throughout, Cranial nerves II-XII grossly intact. No focal sensory deficits - Labs CBC & Chem 7: 12/01/18 06:43 12/01/18 06:43 Labs: Abnormal Lab Results - Last 24 Hours (Table) 11/30/18 11/30/18 11/30/18 Range/Units 16:34 21:01 21:24 WBC (3.8-10.6) k/uL RBC (3.80-5.40) m/uL Hgb (11.4-16.0) gm/dL Hct (34.0-46.0) % RDW (11.5-15.5) % Neutrophils # (1.3-7.7) k/uL PT (9.0-12.0) sec INR (<1.2) BUN (7-17) mg/dL Creatinine (0.52-1.04) mg/dL Glucose (74-99) mg/dL POC Glucose (mg/dL) 119 H 112 H (75-99) mg/dL Magnesium 2.4 H (1.6-2.3) mg/dL AST (14-36) U/L Alkaline Phosphatase (38-126) U/L Total Protein (6.3-8.2) g/dL Urine Protein (Negative) Urine Blood (Negative) Ur Leukocyte Esterase (Negative) Urine RBC (0-5) /hpf Urine WBC (0-5) /hpf Urine Bacteria (None) /hpf Urine Mucus (None) /hpf 12/01/18 12/01/18 12/01/18 Range/Units 06:22 06:43 06:43 WBC 12.6 H (3.8-10.6) k/uL RBC 3.52 L (3.80-5.40) m/uL Hgb 10.7 L (11.4-16.0) gm/dL Hct 32.7 L (34.0-46.0) % RDW 19.6 H (11.5-15.5) % Neutrophils # 9.4 H (1.3-7.7) k/uL PT 36.2 H (9.0-12.0) sec INR 3.8 H (<1.2) BUN (7-17) mg/dL Creatinine (0.52-1.04) mg/dL Glucose (74-99) mg/dL POC Glucose (mg/dL) 110 H (75-99) mg/dL Magnesium (1.6-2.3) mg/dL AST (14-36) U/L Alkaline Phosphatase (38-126) U/L Total Protein (6.3-8.2) g/dL Urine Protein (Negative) Urine Blood (Negative) Ur Leukocyte Esterase (Negative) Urine RBC (0-5) /hpf Urine WBC (0-5) /hpf Urine Bacteria (None) /hpf Urine Mucus (None) /hpf 12/01/18 12/01/18 12/01/18 Range/Units 06:43 11:32 11:45 WBC (3.8-10.6) k/uL RBC (3.80-5.40) m/uL Hgb (11.4-16.0) gm/dL Hct (34.0-46.0) % RDW (11.5-15.5) % Neutrophils # (1.3-7.7) k/uL PT (9.0-12.0) sec INR (<1.2) BUN 38 H (7-17) mg/dL Creatinine 1.74 H (0.52-1.04) mg/dL Glucose 110 H (74-99) mg/dL POC Glucose (mg/dL) 115 H (75-99) mg/dL Magnesium (1.6-2.3) mg/dL AST 46 H (14-36) U/L Alkaline Phosphatase 202 H (38-126) U/L Total Protein 8.3 H (6.3-8.2) g/dL Urine Protein 1+ H (Negative) Urine Blood Large H (Negative) Ur Leukocyte Esterase Small H (Negative) Urine RBC >182 H (0-5) /hpf Urine WBC 13 H (0-5) /hpf Urine Bacteria Rare H (None) /hpf Urine Mucus Rare H (None) /hpf Microbiology - Last 24 Hours (Table) 11/27/18 15:07 Blood Culture - Preliminary Blood No Growth after 72 hours Assessment and Plan (1) Acute on chronic respiratory failure with hypoxia Narrative/Plan: * Multifactorial secondary to acute on chronic diastolic CHF in the setting of underlying possible healthcare associated pneumonia as CT showing patchy right middle lobe infiltrate * Continue supplemental oxygen, continue DuoNeb that her breathing treatments, continue diuresis with IV Lasix, continue inhaled Mucomyst continue chest physiotherapy * CT also showing stenotic trachea just below the tracheostomy tube * pulmonary consulted for further recommendations Current Visit: No Status: Acute Code(s): J96.21 - ACUTE AND CHRONIC RESPIRATORY FAILURE WITH HYPOXIA SNOMED Code(s): 58756098 (2) Acute diastolic (congestive) heart failure Narrative/Plan: * Acute on chronic diastolic CHF exacerbation * Echocardiogram showing preserved LVEF of 55-60%, with grade 2 diastolic dysfunction, moderately dilated left atrium, moderate TR, mild pAH * Continue diuresis with we'll switch to Torsemide 10 mg per PEG twice a day Current Visit: No Status: Acute Code(s): I50.31 - ACUTE DIASTOLIC (CONGESTIVE) HEART FAILURE SNOMED Code(s): 893585248 (3) Sepsis Narrative/Plan: * Secondary to pneumonia and urinary tract infection * Continue current antibiotic regimen with Zyvox and ceftaz at a.m. * Patient afebrile recheck labs today * Appreciate ID recommendations * Patient also continued on oral vancomycin for previous C. diff colitis Current Visit: Yes Status: Acute Code(s): A41.9 - SEPSIS, UNSPECIFIED ORG ANISM SNOMED Code(s): 77327450 (4) Urinary tract infection Current Visit: Yes Status: Acute Code(s): N39.0 - URINARY TRACT INFECTION, SITE NOT SPECIFIED SNOMED Code(s): 34647774 (5) Chronic kidney disease, stage 3 (moderate) Current Visit: Yes Status: Chronic Code(s): N18.3 - CHRONIC KIDNEY DISEASE, STAGE 3 (MODERATE) SNOMED Code(s): 074262837 (6) Paroxysmal A-fib Narrative/Plan: * Currently normal sinus rhythm * With supratherapeutic INR, continue monitoring PT/INR Current Visit: No Status: Chronic Code(s): I48.0 - PAROXYSMAL ATRIAL FIBRILLATION SNOMED Code(s): 807340492 (7) Hypokalemia Narrative/Plan: * Likely secondary to ongoing diuretics we'll replace and recheck tomorrow Current Visit: Yes Status: Acute Code(s): E87.6 - HYPOKALEMIA SNOMED Code(s): 38484131 (8) Hypomagnesemia Narrative/Plan: We'll replace and recheck tomorrow Current Visit: Yes Status: Acute Code(s): E83.42 - HYPOMAGNESEMIA SNOMED Code(s): 008631926 Plan: Disposition * Continue current treatment plan appreciate recommendations from ID and pulmonary * Anticipated discharge 1-2 days * Patient doing well and is stable for discharge however unable to find place ment will likely be here for the next several days pending placement approval and bed availability at [facility]
--- NOTE | 2018-12-02 13:42 | P.PN ---
Subjective Progress Note Date: 12/02/18 Patient seen and examined follow-up, patient awake alert, with at bedside reporting patient needs deep suctioning due to mucus in her trach this morning, patient feeling like she's back to her baseline feeling good today. Patient had her swallow evaluation done and has been upgraded to regular diet 12/01, I discussed with dietitian recommends continuing tube feeds until the patient is able to have at least 60% of her daily calories through eating. No acute events overnight Objective - Vital Signs Vital signs: Vital Signs Temp 97.7 F 12/02/18 12:00 Pulse 70 12/02/18 13:25 Resp 16 12/02/18 12:00 BP 134/87 12/02/18 12:00 Pulse Ox 97 12/02/18 08:00 Intake & Output 12/01/18 12/02/18 12/02/18 18:59 06:59 18:59 Intake Total 913 547 2301 Output Total 500 2100 450 Balance -140 -1979 750 Weight 71 kg 67.5 kg Intake: Oral 0 1080 Tube Feeding 360 120 120 Output: Urine 500 2100 450 Other: Voiding Method Indwelling Catheter Indwelling Catheter Indwelling Catheter # Bowel Movements 3 2 - Exam Constitutional: No acute distress, conversant, pleasant Eyes: Anicteric sclerae, moist conjunctiva, no lid-lag, PERRLA ENMT: NC/AT,Oropharynx clear, no erythema, exudates Neck: Midline tracheostomy in place with #6 uncuffed, fenestrated trach in place Lungs: Coarse sounding upper airway sounds, diminished in the bases CV: Heart regular in rate and rhythm, No murmurs, gallops, improving + 1.5 peripheral edema Abdominal: Soft Nontender, nom distended, no guarding, no rebound or rigidity, Normoactive bowel sounds No hepatomegaly, No splenomegaly, No palpable mass No abdominal wall hernia noted Skin: Normal temperature, tone, texture, turgor, No induration No subcutaneous nodules, No rash, lesions, No ulcers Extremities:No digital cyanosis No clubbing, Pedal pulses intact and symmetrical Radial pulses intact and symmetrical Normal gait and station, No calf tenderness Psychiatric: Alert and oriented to person, place and time, Appropriate affect Intact judgement Neuro: Muscles Strength 5/5 in all 4 extremities, Sensation to light touch grossly present throughout, Cranial nerves II-XII grossly intact. No focal sensory deficits - Labs CBC & Chem 7: 12/01/18 06:43 12/01/18 06:43 Labs: Abnormal Lab Results - Last 24 Hours (Table) 12/01/18 12/01/18 12/02/18 Range/Units 16:57 20:29 06:21 PT (9.0-12.0) sec INR (<1.2) POC Glucose (mg/dL) 106 H 102 H 132 H (75-99) mg/dL 12/02/18 12/02/18 Range/Units 08:18 11:43 PT 32.3 H (9.0-12.0) sec INR 3.4 H (<1.2) POC Glucose (mg/dL) 127 H (75-99) mg/dL Microbiology - Last 24 Hours (Table) 12/01/18 11:32 Urine Culture - Preliminary Urine,Voided 11/27/18 15:07 Blood Culture - Preliminary Blood No Growth after 96 hours Assessment and Plan (1) Acute on chronic respiratory failure with hypoxia Narrative/Plan: * Multifactorial secondary to acute on chronic diastolic CHF in the setting of underlying possible healthcare associated pneumonia as CT showing patchy right middle lobe infiltrate * Continue supplemental oxygen, continue DuoNeb that her breathing treatments, continue diuresis with IV Lasix, continue inhaled Mucomyst continue chest physiotherapy * CT also showing stenotic trachea just below the tracheostomy tube * pulmonary consulted for further recommendations Current Visit: No Status: Resolved Code(s): J96.21 - ACUTE AND CHRONIC RESPIRATORY FAILURE WITH HYPOXIA SNOMED Code(s): 33796908 (2) Acute diastolic (congestive) heart failure Narrative/Plan: * Acute on chronic diastolic CHF exacerbation * Echocardiogram showing preserved LVEF of 55-60%, with grade 2 diastolic dysfunction, moderately dilated left atrium, moderate TR, mild pAH * Continue diuresis with we'll switch to Torsemide 10 mg per PEG twice a day Current Visit: No Status: Acute Code(s): I50.31 - ACUTE DIASTOLIC ( CONGESTIVE) HEART FAILURE SNOMED Code(s): 064362734 (3) Sepsis Narrative/Plan: * Secondary to pneumonia and urinary tract infection * Continue current antibiotic regimen with Zyvox and ceftaz at a.m. * Patient afebrile recheck labs today * Appreciate ID recommendations * Patient also continued on oral vancomycin for previous C. diff colitis Current Visit: Yes Status: Acute Code(s): A41.9 - SEPSIS, UNSPECIFIED ORGANISM SNOMED Code(s): 89538871 (4) Urinary tract infection Narrative/Plan: * Continue current antibiotic regimen * Urine culture positive for Enterobacter Clocoae Current Visit: Yes Status: Acute Code(s): N39.0 - URINARY TRACT INFECTION, SITE NOT SPECIFIED SNOMED Code(s): 24374463 (5) Chronic kidney disease, stage 3 (moderate) Narrative/Plan: * Baseline creatinine function CKD stage 3/4 * Continue to monitor creatinine and GFR closely Current Visit: Yes Status: Chronic Code(s): N18.3 - CHRONIC KIDNEY DISEASE, STAGE 3 (MODERATE) SNOMED Code(s): 607691092 (6) Paroxysmal A-fib Narrative/Plan: * Currently normal sinus rhythm * With supratherapeutic INR, continue monitoring PT/INR Current Visit: No Status: Chronic Code(s): I48.0 - PAROXYSMAL ATRIAL FIBRILLATION SNOMED Code(s): 912230450 (7) Hypokalemia Narrative/Plan: * Likely secondary to ongoing diuretics we'll replace and recheck tomorrow Current Visit: Yes Status: Resolved Code(s): E87.6 - HYPOKALEMIA SNOMED Code(s): 56103978 (8) Hypomagnesemia Narrative/Plan: We'll replace and recheck tomorrow Current Visit: Yes Status: Resolved Code(s): E83.42 - HYPOMAGNESEMIA SNOMED Code(s): 555814664 Plan: Disposition * Continue current treatment plan appreciate recommendations from ID and pulmonary, stable for transfer to medical unmonitored bed * Patient ready for discharge * Patient doing well and is stable for discharge however unable to find placement will likely be here for the next several days pending placement approval and bed availability at [facility]
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
--- NOTE | 2018-12-02 15:28 | XR ---
EXAMINATION TYPE: XR chest 2V DATE OF EXAM: 12/02/2018 COMPARISON: 11/27/2018 HISTORY: 63-year-old female with fever and shortness of breath TECHNIQUE: AP and lateral views FINDINGS: Tracheostomy cannula. Heart moderately enlarged. Diffuse interstitial changes. Aeration is slightly i mproved in the mid and lower lungs. Small left-sided pleural effusion. IMPRESSION: Moderate cardiomegaly and interstitial changes, possible mild pulmonary vascular congestion. Overall aeration shows improvement from prior exam. Small residual left pleural effusion.
[2018-12-02 16:57] LABS: Glucose,Whole Blood 110 mg/dL (75-99)
[2018-12-02] MEDS ORDERED: WARFARIN 0.5 MG TAB PO ONE (18:00)
[2018-12-02] MEDS ORDERED: CALCIUM CARBONATE 500 MG CHEWABLE PO PRN (19:38)
[2018-12-02] MEDS ORDERED: PYRIDOXINE 50 MG TAB PO STA (19:38)
[2018-12-02] MEDS: MAG HYDROX/AL HYDROX/SIMETH 30 ML CUP PO PRN (20:03)
[2018-12-02] MEDS: POTASSIUM CHLORIDE ER 20 MEQ TAB.ER PO SCH (20:25)
[2018-12-02] MEDS: QUEtiapine 100 MG TAB PO SCH (20:25)
[2018-12-02] MEDS: ATORVASTATIN 20 MG TAB PO SCH (20:25)
[2018-12-02] MEDS: PANTOPRAZOLE 40 MG TABLET PO SCH (20:26)
[2018-12-02] MEDS: MONTELUKAST 10 MG TAB PO SCH (21:05)
[2018-12-03] MEDS: IPRATROPIUM-ALBUTEROL 3 ML NEB INHALATION SCH ×5 (03:36→19:07)
[2018-12-03] MEDS: CHERRY FLAVOR 60 ML BOTTLE PO SCH ×4 (06:08→23:34)
[2018-12-03] MEDS: LACTOBACILLUS ACIDOPH & BULGAR 1 EACH PACKET PO SCH ×2 (06:08→16:54)
[2018-12-03] MEDS: LINEZOLID 600 MG TAB PO SCH ×2 (06:08→16:54)
[2018-12-03] MEDS: VANCOMYCIN ORAL SOLUTION 250 MG/5 ML BOTTLE PO SCH ×4 (06:08→23:34)
[2018-12-03] MEDS: LEVOTHYROXINE 75 MCG TAB PO SCH (06:08)
[2018-12-03] MEDS: METOPROLOL TARTRATE 25 MG TAB PO SCH ×3 (06:08→20:57)
[2018-12-03] MEDS: HYDROcodone/APAP 5-325MG 1 EACH TAB PO PRN ×2 (06:12→12:23)
[2018-12-03 06:19] LABS: INR 2.2 (<1.2); Prothrombin Time 21.2 sec (9.0-12.0)
[2018-12-03] MEDS: ACETYLCYSTEINE 800 MG/4 ML VIAL INHALATION SCH ×4 (08:37→19:07)
--- NOTE | 2018-12-03 09:51 | P.PN ---
Subjective Progress Note Date: 12/03/18 The patient is seen and examined at bedside, doing well reports that she slept well apparently had a couple episodes of loose stools this morning. at bedside, has no complaints today , patient's breathing well unlabored trach collar in place . Patient's reporting he was informed by social work that [facility] to bed for Wednesday patient family continues to refuse to go to [facility] [place]. Objective - Vital Signs Vital signs: Vital Signs Temp 97.8 F 12/03/18 03:00 Pulse 76 12/03/18 08:50 Resp 18 12/03/18 03:00 BP 122/75 12/03/18 03:00 Pulse Ox 97 12/03/18 03:00 Intake & Output 12/02/18 12/03/18 12/03/18 18:59 06:59 18:59 Intake Total 1440 120 Output Total 450 900 Balance 990 -780 Weight 69 kg Intake: Oral 1080 Tube Feeding 360 120 Output: Urine 450 900 Other: Voiding Method Indwelling Catheter Indwelling Catheter # Bowel Movements 1 - Exam Constitutional: No acute distress, conversant, pleasant Eyes: Anicteric sclerae, moist conjunctiva, no lid-lag, PERRLA ENMT: NC/AT,Oropharynx clear, no erythema, exudates Neck: Midline tracheostomy in place with #6 uncuffed, fenestrated trach in place Lungs: Diminished in the bases but clear to auscultation CV: Heart regular in rate and rhythm, No murmurs, gallops, improving + 1.5 peripheral edema Abdominal: Soft Nontender, nom distended, no guarding, no rebound or rigidity, Normoactive bowel sounds No hepatomegaly, No splenomegaly, No palpable mass No abdominal wall hernia noted Skin: Normal temperature, tone, texture, turgor, No induration No subcutaneous nodules, No rash, lesions, No ulcers Extremities:No digital cyanosis No clubbing, Pedal pulses intact and symmetrical Radial pulses intact and symmetrical Normal gait and station, No calf tenderness Psychiatric: Alert and oriented to person, place and time, Appropriate affect Intact judgement Neuro: Muscles Strength 5/5 in all 4 extremities, Sensation to light touch grossly present throughout, Cranial nerves II-XII grossly intact. No focal sensory deficits - Labs CBC & Chem 7: 12/01/18 06:43 12/01/18 06:43 Labs: Abnormal Lab Results - Last 24 Hours (Table) 12/02/18 12/02/18 12/03/18 Range/Units 11:43 16:47 05:51 PT 21.2 H (9.0-12.0) sec INR 2.2 H (<1.2) POC Glucose (mg/dL) 127 H 110 H (75-99) mg/dL Microbiology - Last 24 Hours (Table) 12/01/18 11:32 Urine Culture - Final Urine,Voided 11/27/18 15:07 Blood Culture - Preliminary Blood No Growth after 120 hours Assessment and Plan (1) Acute on chronic respiratory failure with hypoxia Narrative/Plan: * Multifactorial secondary to acute on chronic diastolic CHF in the setting of underlying possible healthcare associated pneumonia as CT showing patchy right middle lobe infiltrate * Continue supplemental oxygen, continue DuoNeb that her breathing treatments, continue diuresis with IV Lasix, continue inhaled Mucomyst continue chest physiotherapy * CT also showing stenotic trachea just below the tracheostomy tube * pulmonary consulted for further recommendations Current Visit: No Status: Resolved Code(s): J96.21 - ACUTE AND CHRONIC RESPIRATORY FAILURE WITH HYPOXIA SNOMED Code(s): 50050157 (2) Acute diastolic (congestive) heart failure Narrative/Plan: * Acute on chronic diastolic CHF exacerbation * Echocardiogram showing preserved LVEF of 55-60%, with grade 2 diastolic dysfunction, moderately dilated left atrium, moderate TR, mild pAH * Continue diuresis with we'll switch to Torsemide 10 mg per PEG twice a day Current Visit: No Status: Acute Code(s): I50.31 - ACUTE DIASTOLIC (CONGESTIVE) HEART FAILURE SNOMED Code(s): 379676395 (3) Sepsis Narrative/Plan: * Secondary to pneumonia and urinary tract infection * Continue current antibiotic regimen with Zyvox and ceftaz at a.m. * Patient afebrile recheck labs today * Appreciate ID recommendations * Patient also continued on oral vancomycin for previous C. diff colitis Current Visit: Yes Status: Acute Code(s): A41.9 - SEPSIS, UNSPECIFIED ORGANISM SNOMED Code(s): 36823867 (4) Urinary tract infection Narrative/Plan: * Continue current antibiotic regimen * Urine culture positive for Enterobacter Clocoae Current Visit: Yes Status: Acute Code(s): N39.0 - URINARY TRACT INFECTION, S ITE NOT SPECIFIED SNOMED Code(s): 34748707 (5) Chronic kidney disease, stage 3 (moderate) Narrative/Plan: * Baseline creatinine function CKD stage 3/4 * Continue to monitor creatinine and GFR closely Current Visit: Yes Status: Chronic Code(s): N18.3 - CHRONIC KIDNEY DISEASE, STAGE 3 (MODERATE) SNOMED Code(s): 728773435 (6) Paroxysmal A-fib Narrative/Plan: * Currently normal sinus rhythm * With supratherapeutic INR, continue monitoring PT/INR Current Visit: No Status: Chronic Code(s): I48.0 - PAROXYSMAL ATRIAL FIBRILLATION SNOMED Code(s): 579306079 (7) Hypokalemia Narrative/Plan: * Likely secondary to ongoing diuretics we'll replace and recheck tomorrow Current Visit: Yes Status: Resolved Code(s): E87.6 - HYPOKALEMIA SNOMED Code(s): 69582471 (8) Hypomagnesemia Narrative/Plan: We'll replace and recheck tomorrow Current Visit: Yes Status: Resolved Code(s): E83.42 - HYPOMAGNESEMIA SNOMED Code(s): 265841905 Plan: Disposition * Continue current treatment plan appreciate recommendations from ID and pulmonary, stable for transfer to medical unmonitored bed * Patient ready for discharge * Patient doing well and is stable for discharge however unable to find placement will likely be here for the next several days pending placement approval and bed availability at [facility]
[2018-12-03] MEDS: TORSEMIDE 20 MG TAB PO SCH ×2 (09:52→20:56)
[2018-12-03] MEDS: CHOLESTYRAMINE (WITH SUGAR) 4 GM PACKET PO SCH ×2 (09:52→20:57)
[2018-12-03] MEDS: SERTRALINE 100 MG TAB PO SCH (09:53)
[2018-12-03] MEDS: CLOPIDOGREL 75 MG TAB PO SCH (09:53)
[2018-12-03] MEDS: FOLIC ACID 1 MG TAB PO SCH (09:53)
[2018-12-03] MEDS: AMIODARONE 200 MG TAB PO SCH (09:53)
[2018-12-03] MEDS: ALPRAZolam 0.5 MG TAB PO PRN ×2 (09:53→20:57)
--- NOTE | 2018-12-03 10:18 | PN ---
PROGRESS NOTE DATE OF SERVICE: 12/02/2018 REASON FOR FOLLOWUP: Pneumonia. INTERVAL HISTORY: The patient is currently afebrile. The patient has been breathing comfortably. The patient denies having any chest pain. She did have some cough and bringing up some sputum. No sputum has been collected. No nausea, no vomiting. No abdominal pain, no diarrhea. PHYSICAL EXAMINATION: Her blood pressure is 140/69, with a pulse of 74, temperature of 98, she is 98% on trach collar. General description is middle-aged female, up in the chair in no distress. RESPIRATORY SYSTEM: Unlabored breathing. Decreased breath sounds in the bases, no wheeze. HEART: S1, S2. Regular rate and rhythm. ABDOMEN: Soft, no tenderness. LABS: No new labs have been obtained today. Repeat urine culture is negative, blood culture is negative. DIAGNOSTIC IMPRESSION AND PLAN: Patient admitted to the hospital with fever and sepsis was likely pneumonia. The patient's sputum could not be collected. Chest x-ray this morning did show some component of congestive heart failure but not pneumonia and repeat urine culture negative as well. Plan at this time is to give the patient IV Fortaz and Zyvox which can be discontinued on discharge and p.o. vancomycin will continue for about a week to finish a course of therapy for ulcerative colitis. Continue supportive care. MMODL / IJN: [id number] /
[2018-12-03 12:10] LABS: Glucose,Whole Blood 138 mg/dL (75-99)
[2018-12-03] MEDS ORDERED: WARFARIN 2 MG TAB PO ONE (18:00)
[2018-12-03] MEDS: MAG HYDROX/AL HYDROX/SIMETH 30 ML CUP PO PRN (20:56)
[2018-12-03] MEDS: PANTOPRAZOLE 40 MG TABLET PO SCH (20:56)
[2018-12-03] MEDS: MONTELUKAST 10 MG TAB PO SCH (20:56)
[2018-12-03] MEDS: POTASSIUM CHLORIDE ER 20 MEQ TAB.ER PO SCH (20:57)
[2018-12-03] MEDS: QUEtiapine 100 MG TAB PO SCH (20:57)
[2018-12-03] MEDS: ATORVASTATIN 20 MG TAB PO SCH (20:57)
--- NOTE | 2018-12-03 21:21 | PN ---
PROGRESS NOTE DATE OF SERVICE: 12/03/2018 REASON FOR FOLLOWUP: Possible tracheobronchitis and pneumonia/C diff. INTERVAL HISTORY: The patient is currently afebrile. The patient is breathing comfortably. Secretions from the trach have been suctioned frequently. No chest pain. No nausea, no vomiting. No abdominal pain, no diarrhea. PHYSICAL EXAMINATION: Blood pressure 127/72 with a pulse of 77, temperature 98.1. She is 98% on trach collar. General description is an elderly female, lying in bed in no distress. Respiratory system: Unlabored breathing with decreased breath sounds. No wheeze. Heart is S1, S2. Regular rate and rhythm. Abdomen soft, no tenderness. LABS: No new labs have been obtained today. DIAGNOSTIC IMPRESSION/PLAN: 1. Patient in the hospital with sepsis with concern for possible pneumonia. The patient seemed to respond to Fortaz and the Zyvox. Unfortunately, no sputum cultures were done. In view of significant diarrhea will go ahead and discontinue the Fortaz, leave the patient on Zyvox which may be discontinued at discharge as a repeat x-ray did not show any evidence of consolidation. 2. Patient positive urine culture with multidrug resistant Enterobacter, more likely contamination as repeat cultures have been negative without getting treatment for the same. 3. Clostridium difficile colitis. Continue with oral vancomycin. Questran dose has been adjusted. She has been advised to increase her probiotic and continue supportive care. MMODL / IJN: [id number] /
[2018-12-04] MEDS: IPRATROPIUM-ALBUTEROL 3 ML NEB INHALATION SCH ×7 (00:01→23:46)
[2018-12-04] MEDS: METOPROLOL TARTRATE 25 MG TAB PO SCH ×3 (06:16→20:27)
[2018-12-04] MEDS: LEVOTHYROXINE 75 MCG TAB PO SCH (06:17)
[2018-12-04] MEDS: LACTOBACILLUS ACIDOPH & BULGAR 1 EACH PACKET PO SCH ×2 (06:17→17:53)
[2018-12-04] MEDS: VANCOMYCIN ORAL SOLUTION 250 MG/5 ML BOTTLE PO SCH ×3 (06:17→18:10)
[2018-12-04] MEDS: CHERRY FLAVOR 60 ML BOTTLE PO SCH ×3 (06:17→18:10)
[2018-12-04] MEDS: LINEZOLID 600 MG TAB PO SCH ×2 (06:19→18:11)
[2018-12-04 06:33] LABS: INR 1.6 (<1.2); Prothrombin Time 16.3 sec (9.0-12.0)
[2018-12-04] MEDS: CHOLESTYRAMINE (WITH SUGAR) 4 GM PACKET PO SCH ×2 (08:03→21:39)
[2018-12-04] MEDS: CLOPIDOGREL 75 MG TAB PO SCH (08:03)
[2018-12-04] MEDS: FOLIC ACID 1 MG TAB PO SCH (08:03)
[2018-12-04] MEDS: AMIODARONE 200 MG TAB PO SCH (08:03)
[2018-12-04] MEDS: SERTRALINE 100 MG TAB PO SCH (08:03)
[2018-12-04] MEDS: HYDROcodone/APAP 5-325MG 1 EACH TAB PO PRN ×2 (08:04→20:28)
[2018-12-04] MEDS: TORSEMIDE 20 MG TAB PO SCH ×2 (08:04→20:28)
[2018-12-04] MEDS: MAG HYDROX/AL HYDROX/SIMETH 30 ML CUP PO PRN (08:04)
[2018-12-04] MEDS: ACETYLCYSTEINE 800 MG/4 ML VIAL INHALATION SCH ×4 (08:05→20:01)
--- NOTE | 2018-12-04 08:19 | P.PN ---
Subjective Progress Note Date: 12/04/18 The patient is seen and examined at bedside, doing well reports that she slept well apparently had a couple episodes of loose stools this morning. at bedside, has no complaints today , patient's breathing well unlabored trach collar in place . Patient's reporting he was informed by social work that [facility] is guaranteed to bed for Wednesday patient family continues to refuse to go to [facility]. Objective - Vital Signs Vital signs: Vital Signs Temp 98 F 12/04/18 07:43 Pulse 78 12/04/18 08:05 Resp 16 12/04/18 07:43 BP 118/70 12/04/18 07:43 Pulse Ox 99 12/04/18 07:43 Intake & Output 12/03/18 12/04/18 12/04/18 18:59 06:59 18:59 Intake Total 880 Output Total 501 Balance 379 Intake: Oral 360 Tube Feeding 520 Output: Urine 500 Uretheral (Edwards) 200 Urine/Stool Mix 1 Other: Voiding Method Bedpan Bedpan Diaper Diaper # Voids 800 # Bowel Movements 1 - Exam Constitutional: No acute distress, conversant, pleasant Eyes: Anicteric sclerae, moist conjunctiva, no lid-lag, PERRLA ENMT: NC/AT,Oropharynx clear, no erythema, exudates Neck: Midline tracheostomy in place with #6 uncuffed, fenestrated trach in place Lungs: Diminished in the bases but clear to auscultation CV: Heart regular in rate and rhythm, No murmurs, gallops, improving + 1.5 peripheral edema Abdominal: Soft Nontender, nom distended, no guarding, no rebound or rigidity, Normoactive bowel sounds No hepatomegaly, No splenomegaly, No palpable mass No abdominal wall hernia noted Skin: Normal temperature, tone, texture, turgor, No induration No subcutaneous nodules, No rash, lesions, No ulcers Extremities:No digital cyanosis No clubbing, Pedal pulses intact and s ymmetrical Radial pulses intact and symmetrical Normal gait and station, No calf tenderness Psychiatric: Alert and oriented to person, place and time, Appropriate affect Intact judgement Neuro: Muscles Strength 5/5 in all 4 extremities, Sensation to light touch grossly present throughout, Cranial nerves II-XII grossly intact. No focal sensory deficits - Labs CBC & Chem 7: 12/01/18 06:43 12/01/18 06:43 Labs: Abnormal Lab Results - Last 24 Hours (Table) 12/03/18 12/04/18 Range/Units 12:02 05:42 PT 16.3 H (9.0-12.0) sec INR 1.6 H (<1.2) POC Glucose (mg/dL) 138 H (75-99) mg/dL Microbiology - Last 24 Hours (Table) 11/27/18 15:07 Blood Culture - Final Blood No Growth after 144 hours Assessment and Plan (1) Acute on chronic respiratory failure with hypoxia Narrative/Plan: * Multifactorial secondary to acute on chronic diastolic CHF in the setting of underlying possible healthcare associated pneumonia as CT showing patchy right middle lobe infiltrate * Continue supplemental oxygen, continue DuoNeb that her breathing treatments, continue diuresis with IV Lasix, continue inhaled Mucomyst continue chest physiotherapy * CT also showing stenotic trachea just below the tracheostomy tube * pulmonary consulted for further recommendations Current Visit: No Status: Resolved Code(s): J96.21 - ACUTE AND CHRONIC RESPIRATORY FAILURE WITH HYPOXIA SNOMED Code(s): 99330962 (2) Acute diastolic (congestive) heart failure Narrative/Plan: * Acute on chronic diastolic CHF exacerbation * Echocardiogram showing preserved LVEF of 55-60%, with grade 2 diastolic dysfunction, moderately dilated left atrium, moderate TR, mild pAH * Continue diuresis with we'll switch to Torsemide 10 mg per PEG twice a day Current Visit: No Status: Acute Code(s): I50.31 - ACUTE DIASTOLIC (CONGESTIVE) HEART FAILURE SNOMED Code(s): 197899579 (3) Sepsis Narrative/Plan: * Secondary to pneumonia and urinary tract infection * Continue current antibiotic regimen with Zyvox and ceftaz at a.m. * Patient afebrile recheck labs today * Appreciate ID recommendations * Patient also continued on oral vancomycin for previous C. diff colitis Current Visit: Yes Status: Acute Code(s): A41.9 - SEPSIS, UNSPECIFIED ORGANISM SNOMED Code(s): 41237732 (4) Urinary tract infection Narrative/Plan: * Continue current antibiotic regimen * Urine culture positive for Enterobacter Clocoae Current Visit: Yes Status: Acute Code(s): N39.0 - URINARY TRACT INFECTION, SITE NOT SPECIFIED SNOMED Code(s): 59969587 (5) Chronic kidney disease, stage 3 (moderate) Narrative/Plan: * Baseline creatinine function CKD stage 3/4 * Continue to monitor creatinine and GFR closely Current Visit: Yes Status: Chronic Code(s): N18.3 - CHRONIC KIDNEY DISEASE, STAGE 3 (MODERATE) SNOMED Code(s): 161244150 (6) Paroxysmal A-fib Narrative/Plan: * Currently normal sinus rhythm * With supratherapeutic INR, continue monitoring PT/INR Current Visit: No Status: Chronic Code(s): I48.0 - PAROXYSMAL ATRIAL FIBRILLATION SNOMED Code(s): 653986983 (7) Hypokalemia Narrative/Plan: * Likely secondary to ongoing diuretics we'll replace and recheck tomorrow Current Visit: Yes Status: Resolved Code(s): E87.6 - HYPOKALEMIA SNOMED Code(s): 14903812 (8) Hypomagnesemia Narrative/Plan: We'll replace and recheck tomorrow Current Visit: Yes Status: Resolved Code(s): E83.42 - HYPOMAGNESEMIA SNOMED Code(s): 700008193 Plan: Disposition * Continue current treatment plan appreciate recommendations from ID and pulmonary, stable for transfer to medical unmonitored bed * Patient ready for discharge * Patient doing well and is stable for discharge however unable to find placement will likely be here for the next several days pending placement approval and bed availability at [facility]
[2018-12-04] MEDS: ALPRAZolam 0.5 MG TAB PO PRN ×2 (12:27→17:53)
[2018-12-04] MEDS ORDERED: WARFARIN 2 MG TAB PO ONE (18:00)
[2018-12-04] MEDS: PANTOPRAZOLE 40 MG TABLET PO SCH (20:27)
[2018-12-04] MEDS: ATORVASTATIN 20 MG TAB PO SCH (20:27)
[2018-12-04] MEDS: MONTELUKAST 10 MG TAB PO SCH (20:27)
[2018-12-04] MEDS: POTASSIUM CHLORIDE ER 20 MEQ TAB.ER PO SCH (20:27)
[2018-12-04] MEDS: QUEtiapine 100 MG TAB PO SCH (20:28)
--- NOTE | 2018-12-04 22:44 | PN ---
PROGRESS NOTE DATE OF SERVICE: 12/04/2018 REASON FOR FOLLOW UP: 1. Pneumonia. 2. UTI. 3. C difficile colitis. INTERVAL HISTORY: The patient is currently afebrile. The patient is breathing more comfortably. The patient denies having any chest pain. He did have some cough but not bringing up sputum. No nausea, no vomiting. No abdominal pain or any worsening diarrhea. PHYSICAL EXAMINATION: Blood pressure 122/79 with pulse 74, temperature 98.5, she is 98% on trach collar. General description is a middle aged female, lying in bed in no distress. Respiratory system: Unlabored breathing, clear to auscultation anteriorly. Heart S1, S2. Regular rate and rhythm. Abdomen soft, no tenderness. Extremities, no edema of the feet. LABS: No new labs have been obtained today. DIAGNOSTIC IMPRESSION AND PLAN: 1. Patient admitted to the hospital with a fever, concern likely for pneumonia. Unfortunately no sputum was collected or requested. The patient has shown overall clinical improvement with resolution of fever and white count is normal. Currently on Zyvox to discontinue on discharge. 2. Clostridium difficile colitis. Continue oral ( ) for another week along with Questran. Continue supportive care. MMODL / IJN: [id number] /
[2018-12-05] MEDS: VANCOMYCIN ORAL SOLUTION 250 MG/5 ML BOTTLE PO SCH ×4 (00:13→17:14)
[2018-12-05] MEDS: CHERRY FLAVOR 60 ML BOTTLE PO SCH ×4 (00:13→17:14)
[2018-12-05] MEDS: IPRATROPIUM-ALBUTEROL 3 ML NEB INHALATION SCH ×5 (03:49→20:09)
[2018-12-05] MEDS: LEVOTHYROXINE 75 MCG TAB PO SCH (06:20)
[2018-12-05] MEDS: METOPROLOL TARTRATE 25 MG TAB PO SCH ×3 (06:20→21:21)
[2018-12-05] MEDS: LINEZOLID 600 MG TAB PO SCH (06:20)
[2018-12-05 07:22] LABS: INR 1.7 (<1.2); Prothrombin Time 16.5 sec (9.0-12.0)
[2018-12-05] MEDS: ACETYLCYSTEINE 800 MG/4 ML VIAL INHALATION SCH ×4 (08:49→20:09)
[2018-12-05] MEDS: FOLIC ACID 1 MG TAB PO SCH (09:02)
[2018-12-05] MEDS: SERTRALINE 100 MG TAB PO SCH (09:02)
[2018-12-05] MEDS: AMIODARONE 200 MG TAB PO SCH (09:02)
[2018-12-05] MEDS: CLOPIDOGREL 75 MG TAB PO SCH (09:02)
[2018-12-05] MEDS: TORSEMIDE 20 MG TAB PO SCH ×2 (09:03→21:22)
[2018-12-05] MEDS: LACTOBACILLUS ACIDOPH & BULGAR 1 EACH PACKET PO SCH ×2 (09:03→15:57)
[2018-12-05] MEDS: CHOLESTYRAMINE (WITH SUGAR) 4 GM PACKET PO SCH ×2 (09:41→19:53)
[2018-12-05] MEDS: MAG HYDROX/AL HYDROX/SIMETH 30 ML CUP PO PRN ×2 (09:42→13:32)
[2018-12-05] MEDS: HYDROcodone/APAP 5-325MG 1 EACH TAB PO PRN (16:11)
--- NOTE | 2018-12-05 17:21 | P.PN ---
Subjective Progress Note Date: 12/05/18 The patient's and examined at bedside, has no significant complaints today, nursing reporting increase residuals from tube feeds currently going at 40 mL an hour. Patient not eating very much reporting that she is not feeling hungry. Asked awaiting for placement to [facility]. No acute events overnight Objective - Vital Signs Vital signs: Vital Signs Temp 98.2 F 12/05/18 14:05 Pulse 83 12/05/18 14:05 Resp 16 12/05/18 14:05 BP 112/74 12/05/18 14:05 Pulse Ox 98 12/05/18 15:57 Intake & Output 12/04/18 12/05/18 12/05/18 18:59 06:59 18:59 Intake Total 1100 160 Balance 1100 160 Weight 71.5 kg Intake: Oral 780 Tube Feeding 320 160 Other: Voiding Method Diaper Incontinent Incontinent # Voids 2 1 2 # Bowel Movements 3 1 6 - Exam Constitutional: No acute distress, conversant, pleasant Eyes: Anicteric sclerae, moist conjunctiva, no lid-lag, PERRLA ENMT: NC/AT,Oropharynx clear, no erythema, exudates Neck: Midline tracheostomy in place with #6 uncuffed, fenestrated trach in place Lungs: Diminished in the bases but clear to auscultation CV: Heart regular in rate and rhythm, No murmurs, gallops, improving + 1.5 p eripheral edema Abdominal: Soft Nontender, nom distended, no guarding, no rebound or rigidity, Normoactive bowel sounds No hepatomegaly, No splenomegaly, No palpable mass No abdominal wall hernia noted Skin: Normal temperature, tone, texture, turgor, No induration No subcutaneous nodules, No rash, lesions, No ulcers Extremities:No digital cyanosis No clubbing, Pedal pulses intact and symmet rical Radial pulses intact and symmetrical Normal gait and station, No calf tenderness Psychiatric: Alert and oriented to person, place and time, Appropriate affect Intact judgement Neuro: Muscles Strength 5/5 in all 4 extremities, Sensation to light touch grossly present throughout, Cranial nerves II-XII grossly intact. No focal sensory deficits - Labs CBC & Chem 7: 12/01/18 06:43 12/01/18 06:43 Labs: Abnormal Lab Results - Last 24 Hours (Table) 12/05/18 Range/Units 06:49 PT 16.5 H (9.0-12.0) sec INR 1.7 H (<1.2) Assessment and Plan (1) Acute on chronic respiratory failure with hypoxia Narrative/Plan: * Multifactorial secondary to acute on chronic diastolic CHF in the setting of underlying possible healthcare associated pneumonia as CT showing patchy right middle lobe infiltrate * Continue supplemental oxygen, continue DuoNeb that her breathing treatments, continue diuresis with IV Lasix, continue inhaled Mucomyst continue chest phy siotherapy * CT also showing stenotic trachea just below the tracheostomy tube * pulmonary consulted for further recommendations Current Visit: No Status: Resolved Code(s): J96.21 - ACUTE AND CHRONIC RESPIRATORY FAILURE WITH HYPOXIA SNOMED Code(s): 22107520 (2) Acute diastolic (congestive) heart failure Narrative/Plan: * Acute on chronic diastolic CHF exacerbation * Echocardiogram showing preserved LVEF of 55-60%, with grade 2 diastolic dysfunction, moderately dilated left atrium, moderate TR, mild pAH * Continue diuresis with we'll switch to Torsemide 10 mg per PEG twice a day Current Visit: No Status: Acute Code(s): I50.31 - ACUTE DIASTOLIC (CONGESTIVE) HEART FAILURE SNOMED Code(s): 092623151 (3) Sepsis Narrative/Plan: * Secondary to pneumonia and urinary tract infection * Continue current antibiotic regimen with Zyvox and ceftaz at a.m. * Patient afebrile recheck labs today * Appreciate ID recommendations * Patient also continued on oral vancomycin for previous C. diff colitis Current Visit: Yes Status: Acute Code(s): A41.9 - SEPSIS, UNSPECIFIED ORGANISM SNOMED Code(s): 87026753 (4) Urinary tract infection Narrative/Plan: * Continue current antibiotic regimen * Urine culture positive for Enterobacter Clocoae Current Visit: Yes Status: Acute Code(s): N39.0 - URINARY TRACT INFECTION, SITE NOT SPECIFIED SNOMED Code(s): 28156742 (5) Chronic kidney disease, stage 3 (moderate) Narrative/Plan: * Baseline creatinine function CKD stage 3/4 * Continue to monitor creatinine and GFR closely Current Visit: Yes Status: Chronic Code(s): N18.3 - CHRONIC KIDNEY DISEASE, STAGE 3 (MODERATE) SNOMED Code(s): 320628599 (6) Paroxysmal A-fib Narrative/Plan: * Currently normal sinus rhythm * With supratherapeutic INR, continue monitoring PT/INR Current Visit: No Status: Chronic Code(s): I48.0 - PAROXYSMAL ATRIAL FIBRILLATION SNOMED Code(s): 186953002 (7) Hypokalemia Narrative/Plan: * Likely secondary to ongoing diuretics we'll replace and recheck tomorrow Current Visit: Yes Status: Resolved Code(s): E87.6 - HYPOKALEMIA SNOMED Code(s): 64432492 (8) Hypomagnesemia Narrative/Plan: We'll replace and recheck tomorrow Current Visit: Yes Status: Resolved Code(s): E83.42 - HYPOMAGNESEMIA SNOMED Code(s): 013464436 Plan: Disposition * Continue current treatment plan appreciate recommendations from MALIK and puladrian ry, stable for transfer to medical unmonitored bed * Decreased tube feeds to 20 mL an hour to encourage the patient to have more nutrition by mouth * Patient ready for discharge * Patient doing well and is stable for discharge however unable to find placement will likely be here for the next several days pending placement approval and bed availability at [facility]
[2018-12-05] MEDS ORDERED: WARFARIN 2 MG TAB PO ONE (18:00)
[2018-12-05] MEDS: ATORVASTATIN 20 MG TAB PO SCH (19:52)
[2018-12-05] MEDS: MONTELUKAST 10 MG TAB PO SCH (19:52)
[2018-12-05] MEDS: PANTOPRAZOLE 40 MG TABLET PO SCH (21:21)
[2018-12-05] MEDS: POTASSIUM CHLORIDE ER 20 MEQ TAB.ER PO SCH (21:22)
[2018-12-05] MEDS: QUEtiapine 100 MG TAB PO SCH (21:22)
[2018-12-05] MEDS: ALPRAZolam 0.5 MG TAB PO PRN (21:23)
--- NOTE | 2018-12-05 21:47 | PN ---
PROGRESS NOTE DATE OF SERVICE: 12/05/2018. REASON FOR FOLLOWUP: Pneumonia and C difficile colitis. INTERVAL HISTORY: The patient is currently afebrile. Patient has been breathing more comfortably. Denies having any chest pain. Occasional cough. No nausea, vomiting. No abdominal pain. Still has some diarrhea. PHYSICAL EXAMINATION: Blood pressure 120/74 with a pulse of 83, temperature 98.2%, she is 100% on room air. General description is a middle-aged female lying in bed in no distress. Respiratory system: Unlabored breathing, clear to auscultation anteriorly. Heart S1, S2. Regular rate and rhythm. Abdomen soft, no tenderness. LABS: No new labs have been obtained today. DIAGNOSTIC IMPRESSION AND PLAN: 1. Patient admitted to the hospital with sepsis, source likely pneumonia. Patient seemed to have shown overall clinical improvement. The patient is currently on Zyvox, can be discontinued. The patient received about 7 days of antibiotic therapy and the fever resolved and the x-ray did not show any consolidation. 2. Diarrhea, likely secondary to Clostridium difficile. Continue oral vancomycin as well as Questran and advised to increase her yogurt intake. Continue supportive care. MMODL / IJN: [id number] /
[2018-12-06] MEDS: VANCOMYCIN ORAL SOLUTION 250 MG/5 ML BOTTLE PO SCH ×3 (00:13→13:02)
[2018-12-06] MEDS: CHERRY FLAVOR 60 ML BOTTLE PO SCH ×3 (00:13→13:03)
[2018-12-06] MEDS: IPRATROPIUM-ALBUTEROL 3 ML NEB INHALATION SCH ×4 (00:18→12:26)
[2018-12-06] MEDS: LEVOTHYROXINE 75 MCG TAB PO SCH (04:55)
[2018-12-06 07:17] LABS: INR 1.8 (<1.2)
[2018-12-06] MEDS: CLOPIDOGREL 75 MG TAB PO SCH (07:34)
[2018-12-06] MEDS: AMIODARONE 200 MG TAB PO SCH (07:35)
[2018-12-06] MEDS: METOPROLOL TARTRATE 25 MG TAB PO SCH ×2 (07:35→13:01)
[2018-12-06] MEDS: FOLIC ACID 1 MG TAB PO SCH (07:35)
[2018-12-06] MEDS: SERTRALINE 100 MG TAB PO SCH (07:35)
[2018-12-06] MEDS: LACTOBACILLUS ACIDOPH & BULGAR 1 EACH PACKET PO SCH (07:36)
[2018-12-06] MEDS: TORSEMIDE 20 MG TAB PO SCH (07:37)
[2018-12-06] MEDS: CHOLESTYRAMINE (WITH SUGAR) 4 GM PACKET PO SCH (07:39)
[2018-12-06 08:20] VITALS: RESP 16
[2018-12-06] MEDS: ACETYLCYSTEINE 800 MG/4 ML VIAL INHALATION SCH ×2 (08:44→12:26)
--- NOTE | 2018-12-06 10:57 | P.DS ---
Providers Date of admission: 11/27/18 16:31 Expected date of discharge: 12/06/18 Attending physician: Kristin Mcmanus DO Consults: 11/27/18 16:34 Consult Physician Urgent Consulting Provider: Dwayne Iniguez Consult Reason/Comments: Pneumonia, dyspnea, pulmonary edema Do you want consulting provider notified?: Yes Consult Physician Urgent Consulting Provider: Edgar Herrera Consult Reason/Comments: Sepsis Do you want consulting provider notified?: Yes Primary care physician: Xiomara Deleon MD - Discharge Diagnosis(es) (1) Acute on chronic respiratory failure with hypoxia Current Visit: No Status: Resolved (2) Acute diastolic (congestive) heart failure Current Visit: No Status: Acute (3) Pneumonia Current Visit: Yes Status: Acute (4) Sepsis Current Visit: Yes Status: Acute (5) Urinary tract infection Current Visit: Yes Status: Acute (6) Chronic kidney disease, stage 3 (moderate) Current Visit: Yes Status: Chronic (7) Paroxysmal A-fib Current Visit: No Status: Chronic (8) Hypokalemia Current Visit: Yes Status: Resolved (9) Hypomagnesemia Current Visit: Yes Status: Resolved Hospital Course: The patient is a 63-year-old female with a past medical history of chronic tracheostomy and PEG tube for history of respiratory failure following cardiac arrest/PEA was recently discharged for UTI purulent tracheobronchitis and C. diff colitis that was admitted with acute on chronic respiratory failure of multifactorial etiology secondary to acute on chronic diastolic CHF exacerbation superimposed onsepsis due to UTI underlying pneumonia in a patient with a history of sputum cultures positive for MRSA and Pseudomonas and recurrent issues with mucus plugging and urine culture positive for Enterobacter and Pseudomonas. The patient was placed on supplemental oxygen and started on IV diuretics with Lasix, scheduled and PRN bronchodilator DuoNeb breathing treatments and Mucomyst along with empiric IV antibiotics with Zosyn and vancomycin and later changed to Zosyn and Fortaz. CT of the chest indicated patchy infiltrates in the right greater than the left with small left pleural effusion and enlarged mediastinal adenopathy likely reactive. NT proBNP was extremely elevated at 49,000 echocardiogram showed a preserved LVEF of 55-60% with a grade 2 diastolic dysfunction and moderately dilated left atrium with mo derate TR and mild MR and pAH. The patient diuresed well was able to maintain a negative fluid balance, electrolytes magnesium and potassium were replaced and the patient was able to be weaned back down to her baseline oxygen on is at her baseline of 5 L /FiO2 28 % . She was subsequently discharged to [facility] in stable condition. This discharge process took approximately 35 minutes. Focused exam Respiratory: Diminished in bases Clear to auscultation bilaterally no wheezes or rhonchi, unlabored on 5 L via trach Patient Condition at Discharge: Good Plan - Discharge Summary Discharge Rx Participant: No New Discharge Prescriptions: Continue Nitroglycerin Sl Tabs [Nitrostat] 0.4 mg SUBLINGUAL Q5M PRN PRN Reason: Chest Pain Fluticasone Nasal [place] [Flonase Nasal [place]] 1 spray EA NOSTRIL DAILY Folic Acid 1 mg PEG/G-TUBE DAILY Acetylcysteine [Mucomyst 10%] 200 mg INHALATION RT-DAILY PRN PRN Reason: THICK SECRETIONS/PLUGS Ipratropium-Albuterol Nebulize [Duoneb 0.5 mg-3 mg/3 ml Soln] 3 ml INHALATION RT-TID Insulin Aspart [NovoLOG Flexpen] See Protocol SQ ACHS Changed Amiodarone [Cordarone] 200 mg PO DAILY #0 Warfarin [Coumadin] 5 mg PO HS #0 L. Acidophilus/L.bulgaricus [Floranex Tablet] 1 tab PO AC-BID #0 Atorvastatin [Lipitor] 20 mg PO HS@2000 #0 Metoprolol Tartrate [Lopressor] 50 mg PO Q8H #0 HYDROcodone/APAP 5-325MG [[place] 5-325] 1 tab PO Q6HR PRN #6 tab PRN Reason: Pain amLODIPine [Norvasc] 2.5 mg PO DAILY #0 Omeprazole 20 mg PO HS #0 Clopidogrel [Plavix] 75 mg PO DAILY #0 tab Potassium Chloride Oral Liquid 20 meq PO HS #0 Promethazine HCl 25 mg PO Q8H PRN #0 PRN Reason: Nausea Cholestyramine (with Sugar) [Questran Packet] 4 gm PO BID #0 QUEtiapine [SEROquel] 100 mg PO HS #2 tab Montelukast [Singulair] 10 mg PO HS@2000 #0 Levothyroxine Sodium [Synthroid] 75 mcg PO DAILY@0630 #0 tab Torsemide 10 mg PO BID #0 Acetaminophen Tab [Tylenol] 650 mg PO Q6H PRN #0 PRN Reason: Pain Vancomycin Oral Solution 250 mg PO Q6HR #0 ALPRAZolam [Xanax] 0.5 mg PO Q6H PRN #6 tablet PRN Reason: Anxiety Sertraline HCl [Zoloft] 100 mg PO DAILY #0 Discontinued fentaNYL 50MCG/HR PATCH [Duragesic 50MCG/HR] 1 patch TRANSDERM Q72H #2 patch Discharge Medication List Nitroglycerin Sl Tabs [Nitrostat] 0.4 mg SUBLINGUAL Q5M PRN 12/29/13 [History] Fluticasone Nasal [place] [Flonase Nasal [place]] 1 spray EA NOSTRIL DAILY 12/21/17 [History] Folic Acid 1 mg PEG/G-TUBE DAILY 07/31/18 [History] Acetylcysteine [Mucomyst 10%] 200 mg INHALATION RT-DAILY PRN 10/27/18 [History] Ipratropium-Albuterol Nebulize [Duoneb 0.5 mg-3 mg/3 ml Soln] 3 ml INHALATION RT-TID 10/27/18 [History] Insulin Aspart [NovoLOG Flexpen] See Protocol SQ ACHS 11/27/18 [History] ALPRAZolam [Xanax] 0.5 mg PO Q6H PRN #6 tablet 12/06/18 [Rx] Acetaminophen Tab [Tylenol] 650 mg PO Q6H PRN #0 12/06/18 [Rx] Amiodarone [Cordarone] 200 mg PO DAILY #0 12/06/18 [Rx] Atorvastatin [Lipitor] 20 mg PO HS@2000 #0 12/06/18 [Rx] Cholestyramine (with Sugar) [Questran Packet] 4 gm PO BID #0 12/06/18 [Rx] Clopidogrel [Plavix] 75 mg PO DAILY #0 tab 12/06/18 [Rx] HYDROcodone/APAP 5-325MG [[place] 5-325] 1 tab PO Q6HR PRN #6 tab 12/06/18 [Rx] L. Acidophilus/L.bulgaricus [Floranex Tablet] 1 tab PO AC-BID #0 12/06/18 [Rx] Levothyroxine Sodium [Synthroid] 75 mcg PO DAILY@0630 #0 tab 12/06/18 [Rx] Metoprolol Tartrate [Lopressor] 50 mg PO Q8H #0 12/06/18 [Rx] Montelukast [Singulair] 10 mg PO HS@2000 #0 12/06/18 [Rx] Omeprazole 20 mg PO HS #0 12/06/18 [Rx] Potassium Chloride Oral Liquid 20 meq PO HS #0 12/06/18 [Rx] Promethazine HCl 25 mg PO Q8H PRN #0 12/06/18 [Rx] QUEtiapine [SEROquel] 100 mg PO HS #2 tab 12/06/18 [Rx] Sertraline HCl [Zoloft] 100 mg PO DAILY #0 12/06/18 [Rx] Torsemide 10 mg PO BID #0 12/06/18 [Rx] Vancomycin Oral Solution 250 mg PO Q6HR #0 12/06/18 [Rx] Warfarin [Coumadin] 5 mg PO HS #0 12/06/18 [Rx] amLODIPine [Norvasc] 2.5 mg PO DAILY #0 12/06/18 [Rx] Follow up Appointment(s)/Referral(s): Xiomara Deleon MD [Primary Care Provider] - 1-2 days Discharge Disposition: TRANSFER TO SNF/ECF
[2018-12-06] MEDS: ALPRAZolam 0.5 MG TAB PO PRN (13:01)
[2018-12-06 15:10] VITALS: BP 105/71; PULSE 71; TEMP 98.1
[2018-12-06 15:12] VITALS: BMI 24.5
--- NOTE | 2018-12-06 16:39 | PN ---
PROGRESS NOTE DATE OF SERVICE: 12/06/2018 REASON FOR FOLLOWUP: 1. Pneumonia. 2. C difficile colitis. INTERVAL HISTORY: The patient is currently afebrile. She is breathing more comfortably. Occasional cough. No chest pain. No nausea or vomiting. Her diarrhea has slowed down. PHYSICAL EXAMINATION: Blood pressure 120/78 with a pulse of 77, temperature 97.7. She is 99% on trach collar. General description is a middle-aged female lying in bed in no distress. RESPIRATORY SYSTEM: Unlabored breathing with some coarse breath sounds in the bases. No wheeze. HEART: S1, S2. Regular rate and rhythm. ABDOMEN: Soft. No tenderness. LABS: No new labs have been obtained today. DIAGNOSTIC IMPRESSION AND PLAN: 1. Patient admitted to hospital with a fever with concern for likely pneumonia. Sputum was not obtained. She was treated with Fortaz and Zyvox. She received about a week of antibiotics. Those were discontinued because of persistent diarrhea. The patient is currently doing well off antibiotic therapy. 2. Clostridium difficile colitis. To continue with oral vancomycin for another 7-10 days along with Questran. Advised to increase her yogurt and probiotic intake. Continue with supportive care. MMODL / IJN: [id number] /
[2018-12-06] MEDS ORDERED: WARFARIN 2 MG TAB PO ONE (18:00)
== END 2018-12-06 16:04 | DRG 871 ==
LOC: EC 14:11 → 3SCARD 16:31 → 4SSUR 12-04 15:10
PROVIDERS: ADMIT Internal Medicine; ATTEND Internal Medicine
DX: A41.52 Sepsis due to Pseudomonas (principal); I50.33 Acute on chronic diastolic (congestive) heart failure; J18.9 Pneumonia, unspecified organism; J96.21 Acute and chronic respiratory failure with hypoxia; N39.0 Urinary tract infection, site not specified; I13.0 Hypertensive heart and chronic kidney disease with heart failure and stage 1 through stage 4 chronic kidney disease, or unspecified chronic kidney disease; J44.0 Chronic obstructive pulmonary disease with (acute) lower respiratory infection; N17.9 Acute kidney failure, unspecified; N18.4 Chronic kidney disease, stage 4 (severe); A41.50 Gram-negative sepsis, unspecified; E03.9 Hypothyroidism, unspecified; E78.5 Hyperlipidemia, unspecified; E83.42 Hypomagnesemia; E87.6 Hypokalemia; F31.9 Bipolar disorder, unspecified; F41.9 Anxiety disorder, unspecified; G89.4 Chronic pain syndrome; I25.10 Atherosclerotic heart disease of native coronary artery without angina pectoris; I48.0 Paroxysmal atrial fibrillation; I49.3 Ventricular premature depolarization; Z87.01 Personal history of pneumonia (recurrent); K21.9 Gastro-esophageal reflux disease without esophagitis; T17.990A Other foreign object in respiratory tract, part unspecified in causing asphyxiation, initial encounter; Z16.24 Resistance to multiple antibiotics; Z79.01 Long term (current) use of anticoagulants; Z79.02 Long term (current) use of antithrombotics/antiplatelets; Z79.899 Other long term (current) drug therapy; Z86.14 Personal history of Methicillin resistant Staphylococcus aureus infection; Z86.19 Personal history of other infectious and parasitic diseases; Z86.718 Personal history of other venous thrombosis and embolism; Z86.74 Personal history of sudden cardiac arrest; Z87.891 Personal history of nicotine dependence; Z90.710 Acquired absence of both cervix and uterus; Z93.0 Tracheostomy status; Z93.1 Gastrostomy status; Z95.5 Presence of coronary angioplasty implant and graft; R59.0 Localized enlarged lymph nodes; Z87.820 Personal history of traumatic brain injury; Z88.0 Allergy status to penicillin; Z88.2 Allergy status to sulfonamides; Z88.8 Allergy status to other drugs, medicaments and biological substances; J84.10 Pulmonary fibrosis, unspecified; Z79.891 Long term (current) use of opiate analgesic
CPT/HCPCS: 36415; 71046; 71250; 74230; 80048; 80053; 81001; 82550; 83605; 83735; 83880; 84132; 84484; 85025; 85610; 85730; 87040; 87077; 87086; 87186; 93005; 93306; 94640; 94667; 94668; 94760; 96365; 96366; 96367; 96374; 99291

== ENCOUNTER 2018-12-30 10:44 | Inpatient (IN) | payer OTHER ==
[2018-12-30] MEDS ORDERED: SODIUM CHLORIDE 0.9% 1,000 ML IV STA (10:51)
[2018-12-30] MEDS ORDERED: SODIUM CHLORIDE 0.9% 500 ML 500 ML IV STA (10:51)
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
--- NOTE | 2018-12-30 11:30 | XR ---
EXAMINATION TYPE: XR pelvis AP view DATE OF EXAM: 12/30/2018 COMPARISON: 02/28/2018 HISTORY: Fall, pain TECHNIQUE: AP pelvis FINDINGS: Femoral heads articulate with the acetabulum. Symphysis pubis and sacroiliac joints appear normal. Normal bowel gas is present. No acute fractures or dislocations are evident. Catheter overlie s [id number]. IMPRESSION: 1. No acute osseous abnormality AP pelvis
--- NOTE | 2018-12-30 11:33 | XR ---
EXAMINATION TYPE: XR chest 2V DATE OF EXAM: 12/30/2018 COMPARISON: 12/02/2018 INDICATION: Pain from fall TECHNIQUE: Frontal and lateral views of the chest are obtained. FINDINGS: The heart size is moderately enlarged. The pulmonary vasculature is normal. There is a posterior infiltrate. No pneumothorax is evident. There is an eighth lateral rib fracture with minimal displacement. No left pneumothorax is evident. IMPRESSION: 1. Left lateral eighth rib fracture. No pneumothorax evident. 2. Posterior infiltrate. Correlate for atelectasis or pneumonia. This may be at the right base. 3. Cardiomegaly
--- NOTE | 2018-12-30 11:42 | CT ---
EXAMINATION TYPE: CT facial bones wo con DATE OF EXAM: 12/30/2018 COMPARISON: None HISTORY: Fall x 3 days ago, left cheek pain and on Eliquis CT DLP: 1115.5 mGycm Automated exposure control for dose reduction was used. TECHNIQUE: CT scan of the sinuses is performed without contrast, axial images are obtained, coronal r eformatted images are also reviewed. FINDINGS: The paranasal sinuses including the frontal, ethmoid, sphenoid, and maxillary sinuses bila terally are well-aerated without abnormal opacification. The ostiomeatal complex is patent bilateral ly on the coronal images. Visualized portion of mastoid air cells show no abnormal opacification. The globes are intact bilate rally. Calcifications in the soft tissues of the neck likely related to carotid artery calcificatio n. Intracranial atherosclerotic changes are seen. Minimal changes of right-sided mastoiditis. There i s a deformity of the posterior margin of the C1 arch on the left. IMPRESSION: 1. There is no acute facial bone fracture. However there appears to be a deformity of the posterior m argin of this arch of C1 on the left suspicious for fracture. This may have been present on the CT of the brain dated 07/31/2018 and may be chronic correlate with point tenderness.
--- NOTE | 2018-12-30 11:43 | CT ---
EXAMINATION TYPE: CT brain cspine wo con DATE OF EXAM: 12/30/2018 COMPARISON: CT brain 11/03/2018 HISTORY: Fall 3 days ago and on Eliquis CT DLP: 1115.5 mGycm Automated exposure control for dose reduction was used. TECHNIQUE: CT scan of the head and cervical spine are performed without contrast. FINDINGS: There is no acute intracranial hemorrhage, mass effect, or midline shift identified. The ventricles and sulci are within normal limits in size. The globes are intact and the visualized sin uses are clear. Periventricular white matter shows patchy low attenuation. Atrophy is likely age-rela jessica. There are cerebral vascular calcifications. Cervical spine is visualized in its entirety from C1 through upper thoracic levels and demonstrates s atisfactory alignment without evidence of acute fracture or dislocation. The lamina on the left shows a lucency which is well-corticated and is not acute, was seen on prior exam. Prevertebral soft tissu e appears within normal limits. The C1-C2 articulation is unremarkable. Apical emphysematous dai es are present within the lungs. Pulmonary artery is prominent compatible with pulmonary artery hyper tension. Borderline retrocaval pretracheal adenopathy is noted incidentally. IMPRESSION: 1. There is no acute fracture or dislocation evident in the cervical spine. 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 2. No acute intracranial hemorrhage, mass effect, or midline shift is seen. 3. Additional findings above.
[2018-12-30 12:55] LABS: Basophils # (A) 0.3 k/uL (0-0.2); Basophils % (A) 2 %; Eosinophils # (A) 0.4 k/uL (0-0.7); Eosinophils % (A) 2 %; HCT 31.4 % (34.0-46.0); HGB 10.2 gm/dL (11.4-16.0); Hypochromasia Slight; Lymphocytes # (A) 1.7 k/uL (1.0-4.8); Lymphocytes % (A) 10 %; MCH 30.6 pg (25.0-35.0); MCHC 32.6 g/dL (31.0-37.0); MCV 93.9 fL (80.0-100.0); Mean Platelet Volume 7.1; Monocytes # (A) 0.6 k/uL (0-1.0); Monocytes % (A) 4 %; Neutrophils # (A) 14.4 k/uL (1.3-7.7); Neutrophils % (A) 82 %; Platelet Count 296 k/uL (150-450); RBC 3.34 m/uL (3.80-5.40); RDW 15.9 % (11.5-15.5); WBC 17.5 k/uL (3.8-10.6)
[2018-12-30 13:01] LABS: INR 1.1 (<1.2); Partial Thromboplastin Time 29.7 sec (22.0-30.0); Prothrombin Time 11.4 sec (9.0-12.0)
[2018-12-30 13:33] LABS: Albumin 3.7 g/dL (3.5-5.0); Calcium 9.2 mg/dL (8.4-10.2); Magnesium 1.6 mg/dL (1.6-2.3); Potassium 4.5 mmol/L (3.5-5.1); Total Bilirubin 0.6 mg/dL (0.2-1.3); Total Protein 7.8 g/dL (6.3-8.2)
[2018-12-30 13:47] LABS: Appearance,Urine Clear (Clear); Bilirubin,Urine Negative (Negative); Blood,Urine Large (Negative); Color,Urine Light Yellow; Glucose,Urine (UA) Negative (Negative); Ketones,Urine Negative (Negative); Leukocyte Esterase,Urine Large (Negative); Nitrite,Urine Negative (Negative); Protein,Urine Trace (Negative); Specific Gravity,Urine 1.008 (1.001-1.035); Urobilinogen,Urine <2.0 mg/dL (<2.0)
[2018-12-30 13:48] LABS: Bacteria,Urine Moderate /hpf; Mucus,Urine Rare /hpf; RBC,Urine 171 /hpf (0-5); Squamous Epithelial Cell,Urine 2 /hpf (0-4); WBC,Urine 93 /hpf (0-5)
[2018-12-30] MEDS ORDERED: ALPRAZolam 1 MG TAB PO STA (13:58)
[2018-12-30] MEDS ORDERED: PIPERACILLIN-TAZOBACTAM 3.375 GM in SODIUM CHLORIDE 0.9% 100 ML IVPB STA (14:33)
[2018-12-30] MEDS ORDERED: VANCOMYCIN IV PER PHARMACY 1 EACH MISC MISCELLANE PRN (14:34)
[2018-12-30] MEDS ORDERED: LEVOFLOXACIN 750MG-D5W PMX 750 MG in DEXTROSE/WATER 1 150ML.BAG IVPB STA (14:34)
[2018-12-30] MEDS ORDERED: ACETAMINOPHEN TAB 325 MG TAB PO PRN (14:36)
[2018-12-30] MEDS ORDERED: MORPHINE SULFATE 4 MG/ML SYRINGE IV PRN (14:36)
[2018-12-30] MEDS ORDERED: NALOXONE 0.4 MG/ML 1 ML VIAL IV PRN (14:36)
[2018-12-30] MEDS ORDERED: IPRATROPIUM-ALBUTEROL 3 ML NEB INHALATION STA (14:39)
[2018-12-30] MEDS ORDERED: methylPREDNISolone SOD SUCCI 125 MG/2 ML VIAL IV STA (14:40)
[2018-12-30] MEDS ORDERED: VANCOMYCIN 1,250 MG in SODIUM CHLORIDE 0.9% 250 ML IVPB STA (14:43)
--- NOTE | 2018-12-30 15:24 | CT ---
EXAMINATION TYPE: CT hip LT wo con DATE OF EXAM: 12/30/2018 COMPARISON: Plain film same date earlier time HISTORY: Fall with left hip pain. CT DLP: 509.3 mGycm Automated exposure control for dose reduction was used. Helical imaging through the left hip. FINDINGS: There is some sclerosis at the sacroiliac joint. Bone mineralization is reduced. There is no fracture or dislocation evident. There is increased density within subcutaneous fat superficial to the left h ip. Air is present within the bladder, correlate for recent instrumentation. Diverticular change is p resent within the sigmoid colon. IMPRESSION: THERE IS LIKELY HEMATOMA WITHIN THE SUBCUTANEOUS FAT. NO FRACTURE OR DISLOCATION.
--- NOTE | 2018-12-30 15:42 | XR ---
EXAMINATION TYPE: XR lumbar spine 2 or 3V DATE OF EXAM: 12/30/2018 COMPARISON: None HISTORY: Fall, pain TECHNIQUE: Three-view lumbar spine. Images of the sacral base and lateral spine are crosstable latera l views FINDINGS: There 5 lumbar-type vertebral bodies. Pedicles are intact. Disc heights are preserved. Vert ebral body heights are preserved. Alignment appears normal. IMPRESSION: 1. Normal three-view lumbar spine.
[2018-12-30] MEDS: SODIUM CHLORIDE 0.9% 1,000 ML IV SCH ×2 (15:46→23:51)
[2018-12-30 16:39] VITALS: BMI 26.2
[2018-12-30] MEDS ORDERED: ALPRAZolam 0.5 MG TAB PO PRN (18:00)
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
[2018-12-30] MEDS: FOLIC ACID 1 MG TAB PO SCH (20:22)
[2018-12-30] MEDS: MONTELUKAST 10 MG TAB PO SCH (20:22)
[2018-12-30] MEDS: QUEtiapine 100 MG TAB PO SCH (20:22)
[2018-12-30] MEDS: APIXABAN 5 MG TAB PO SCH (20:22)
[2018-12-30] MEDS: PANTOPRAZOLE 40 MG TABLET PO SCH (20:23)
[2018-12-30] MEDS: METOPROLOL TARTRATE 50 MG TAB PO SCH ×2 (20:23→23:02)
[2018-12-30] MEDS: ATORVASTATIN 20 MG TAB PO SCH (20:23)
[2018-12-30] MEDS: TORSEMIDE 20 MG TAB PO SCH (20:24)
[2018-12-30] MEDS: HYDROcodone/APAP 5-325MG 1 EACH TAB PO PRN (20:27)
[2018-12-30] MEDS: CEFEPIME 2 GM in SODIUM CHLORIDE 0.9% 100 ML IVPB SCH (23:54)
[2018-12-31] MEDS: LEVOTHYROXINE 75 MCG TAB PO SCH (05:51)
[2018-12-31 07:47] LABS: Albumin 3.3 g/dL (3.5-5.0); Calcium 8.7 mg/dL (8.4-10.2); Potassium 4.6 mmol/L (3.5-5.1); Total Bilirubin 0.5 mg/dL (0.2-1.3); Total Protein 7.3 g/dL (6.3-8.2)
[2018-12-31 08:03] LABS: HGB 9.6 gm/dL (11.4-16.0); Hypochromasia Slight; MCH 30.9 pg (25.0-35.0); MCHC 33.2 g/dL (31.0-37.0); Mean Platelet Volume 6.2; Platelet Count 276 k/uL (150-450); RBC 3.12 m/uL (3.80-5.40); RDW 15.3 % (11.5-15.5); WBC 13.5 k/uL (3.8-10.6)
[2018-12-31] MEDS ORDERED: VANCOMYCIN 1,250 MG in SODIUM CHLORIDE 0.9% 250 ML IVPB ONE (09:00)
--- NOTE | 2018-12-31 09:08 | P.PN ---
Subjective Progress Note Date: 12/31/18 The patient is a 63 yo F, well known to our service, w/ an extensive past medical history including COPD, cardiac arrest s/p trach with subsequent reversal, PEG tube (scheduled for reversal), presented to the ED with complaints of fall at home. Of note, the patient was recently admitted to our service on November 27 for respiratory failure and UTI sepsis and was discharged to [facility]. The patient had noted that she was ambulating at home with her walker when she had fallen on Wednesday 12/27, when she struck her head in the left side of her chest and hip. Patient had denied any loss of consciousness, chest pain, or palpitations prior to the fall. She had noted that she fell simply b ecause she lost her balance. The patient also endorsed ongoing cough over the past few days and was noted to have infiltrates on her chest x-ray with laboratory evaluation revealing a leukocytosis. Patient was subsequently admitted to medicine service for sepsis secondary to hospital-acquired pneu monia. The patient was seen and examined at the bedside on 12/31. She was in good spirits and notes that she feels better since admission. She notes continued cough though improved. She also endorsed continued left chest pain at the side of her rib fracture. She however denied fever, chills, shortness of breath, nausea, or vomiting. Objective - Vital Signs Vital signs: Vital Signs Temp 97.2 F L 12/31/18 04:30 Pulse 69 12/31/18 04:30 Resp 16 12/31/18 04:30 BP 120/76 12/31/18 04:30 Pulse Ox 100 12/31/18 04:30 Intake & Output 12/30/18 12/31/18 12/31/18 18:59 06:59 18:59 Intake Total 850 Balance 850 Weight 67.132 kg Intake: Intake, IV Titration 850 Amount Cefepime 2 gm In Sodium 100 Chloride 0.9% 100 ml @ 200 mls/hr IVPB Q12H [facility] Rx#:[id number] Levofloxacin 750Mg-D5w 150 Pmx 750 mg In Dextrose/ Water 1 150ml.bag @ 100 mls/hr IVPB ONCE STA Rx#: [id number] Sodium Chloride 0.9% 1, 600 000 ml @ 50 mls/hr IV . Q20H [facility] Rx#:[id number] Other: Voiding Method Bedpan # Voids 1 - Exam General: Non-toxic, in no acute distress, appears stated age, normal weight HEENT: NC/AT, anicteric sclerae, moist conjunctiva, no lid-lag, PERRLA Cardiovascular: S1/S2 wnl, no murmurs, rubs, or gallops Lungs:Amandeep ronchi, improved, normal respiratory effort, no accessory muscle use Abdominal: Soft, non-tender, non-distended, no guarding, rebound, or rigidity Skin: Warm, dry Extremities: No edema or contractures Psychiatric: Alert and oriented to person, place and time, appropriate affect Neuro: CN II-XII grossly intact, Strength 4/5 in all 4 extremities, Speech intact, Sensation to light touch grossly intact throughout - Labs CBC & Chem 7: 12/31/18 07:23 12/31/18 07:10 Labs: Abnormal Lab Results - Last 24 Hours (Table) 12/30/18 12/30/18 12/30/18 Range/Units 12:30 12:30 13:35 WBC 17.5 H (3.8-10.6) k/uL RBC 3.34 L (3.80-5.40) m/uL Hgb 10.2 L (11.4-16.0) gm/dL Hct 31.4 L (34.0-46.0) % RDW 15.9 H (11.5-15.5) % Neutrophils # 14.4 H (1.3-7.7) k/uL Basophils # 0.3 H (0-0.2) k/uL Carbon Dioxide (22-30) mmol/L BUN 44 H (7-17) mg/dL Creatinine 1.88 H (0.52-1.04) mg/dL Glucose (74-99) mg/dL AST 68 H (14-36) U/L ALT 60 H (9-52) U/L Alkaline Phosphatase 158 H (38-126) U/L Albumin (3.5-5.0) g/dL Urine Protein Trace H (Negative) Urine Blood Large H (Negative) Ur Leukocyte Esterase Large H (Negative) Urine RBC 171 H (0-5) /hpf Urine WBC 93 H (0-5) /hpf Urine Bacteria Moderate H (None) /hpf Urine Mucus Rare H (None) /hpf 12/31/18 12/31/18 Range/Units 07:10 07:23 WBC 13.5 H (3.8-10.6) k/uL RBC 3.12 L (3.80-5.40) m/uL Hgb 9.6 L (11.4-16.0) gm/dL Hct 29.0 L (34.0-46.0) % RDW (11.5-15.5) % Neutrophils # (1.3-7.7) k/uL Basophils # (0-0.2) k/uL Carbon Dioxide 21 L (22-30) mmol/L BUN 48 H (7-17) mg/dL Creatinine 1.77 H (0.52-1.04) mg/dL Glucose 121 H (74-99) mg/dL AST 61 H (14-36) U/L ALT 59 H (9-52) U/L Alkaline Phosphatase 136 H (38-126) U/L Albumin 3.3 L (3.5-5.0) g/dL Urine Protein (Negative) Urine Blood (Negative) Ur Leukocyte Esterase (Negative) Urine RBC (0-5) /hpf Urine WBC (0-5) /hpf Urine Bacteria (None) /hpf Urine Mucus (None) /hpf Assessment and Plan Plan: Sepsis secondary to hospital acquired pneumonia -C/w Vancomycin and Cefepime -Conservative IVFs due to hx of diastolic CHF -F/u blood cultures -Leukocytosis improved -Supplemental oxygen COPD, not in acute exacerbation -C/w Duonebs L rib fracture -Incentive spirometer -Pain control Mechanical Fall -Fall precautions -PT/OT Normocytic anemia, at baseline -Likely due to chronic disease -Monitor for now CKD stage 3 -Monitor BMP -Avoid nephrotoxic agents Deranged LFTs, improved -Monitor for now -Possibly secondary to sepsis Abnormal UA -Patient has hx of chronic UTIs -In light of no urinary complaints, hold off on treatment for now Paroxysmal A-fib -C/w Eliquis and Amiodarone DVT prophylaxis -Eliquis Discussed with: Patient Anticipated discharge date: 2-[address]: [facility] A total of 35 minutes was spent on the care of this complex patient more than 50% of the time was spent in counseling and care coordination.
[2018-12-31] MEDS: APIXABAN 5 MG TAB PO SCH ×2 (09:20→20:41)
[2018-12-31] MEDS: METOPROLOL TARTRATE 50 MG TAB PO SCH ×3 (09:20→23:10)
[2018-12-31] MEDS: TORSEMIDE 20 MG TAB PO SCH ×2 (09:20→20:41)
[2018-12-31] MEDS: ASPIRIN 81 MG PO SCH (09:20)
[2018-12-31] MEDS: AMIODARONE 200 MG TAB PO SCH (09:20)
[2018-12-31] MEDS: amLODIPine 2.5 MG TAB PO SCH (09:21)
[2018-12-31] MEDS: ALPRAZolam 1 MG TAB PO PRN ×2 (10:44→19:03)
[2018-12-31] MEDS: IPRATROPIUM-ALBUTEROL 3 ML NEB INHALATION SCH ×3 (10:59→19:32)
[2018-12-31] MEDS: CEFEPIME 2 GM in SODIUM CHLORIDE 0.9% 100 ML IVPB SCH ×2 (13:18→21:10)
[2018-12-31] MEDS: HYDROcodone/APAP 5-325MG 1 EACH TAB PO PRN (19:03)
[2018-12-31] MEDS: QUEtiapine 100 MG TAB PO SCH (20:41)
[2018-12-31] MEDS: ATORVASTATIN 20 MG TAB PO SCH (20:41)
[2018-12-31] MEDS: MONTELUKAST 10 MG TAB PO SCH (20:41)
[2018-12-31] MEDS: FOLIC ACID 1 MG TAB PO SCH (20:41)
[2018-12-31] MEDS: PANTOPRAZOLE 40 MG TABLET PO SCH (20:41)
[2018-12-31] MEDS ORDERED: MORPHINE SULFATE 2 MG/ML SYRINGE IVP PRN (20:55)
[2018-12-31] MEDS: MELATONIN 3 MG TABLET PO PRN (21:10)
[2018-12-31] MEDS: SODIUM CHLORIDE 0.9% 1,000 ML IV SCH (23:11)
[2019-01-01] MEDS: LEVOTHYROXINE 75 MCG TAB PO SCH (05:52)
[2019-01-01 08:11] LABS: Albumin 3.2 g/dL (3.5-5.0); Calcium 8.7 mg/dL (8.4-10.2); Potassium 3.9 mmol/L (3.5-5.1); Total Bilirubin 0.5 mg/dL (0.2-1.3); Total Protein 7.2 g/dL (6.3-8.2)
[2019-01-01 08:23] LABS: HCT 29.5 % (34.0-46.0); MCH 31.4 pg (25.0-35.0); MCHC 33.9 g/dL (31.0-37.0); MCV 92.7 fL (80.0-100.0); Mean Platelet Volume 7.9; Platelet Count 253 k/uL (150-450); RBC 3.18 m/uL (3.80-5.40); RDW 15.7 % (11.5-15.5); WBC 11.4 k/uL (3.8-10.6)
[2019-01-01] MEDS: IPRATROPIUM-ALBUTEROL 3 ML NEB INHALATION SCH ×4 (08:45→20:42)
[2019-01-01] MEDS: APIXABAN 5 MG TAB PO SCH ×2 (09:24→20:35)
[2019-01-01] MEDS: ALPRAZolam 1 MG TAB PO PRN ×2 (09:24→14:51)
[2019-01-01] MEDS: ASPIRIN 81 MG PO SCH (09:24)
[2019-01-01] MEDS: HYDROcodone/APAP 5-325MG 1 EACH TAB PO PRN ×2 (09:24→14:51)
[2019-01-01] MEDS: METOPROLOL TARTRATE 50 MG TAB PO SCH ×2 (09:24→18:06)
[2019-01-01] MEDS: TORSEMIDE 20 MG TAB PO SCH ×2 (09:25→20:35)
[2019-01-01] MEDS: amLODIPine 2.5 MG TAB PO SCH (14:51)
[2019-01-01] MEDS: AMIODARONE 200 MG TAB PO SCH (14:53)
--- NOTE | 2019-01-01 14:56 | P.PN ---
Subjective Progress Note Date: 01/01/19 The patient is a 63 yo F, well known to our service, w/ an extensive past medical history including COPD, cardiac arrest s/p trach with subsequent reversal, PEG tube (scheduled for reversal), presented to the ED with complaints of fall at home. Of note, the patient was recently admitted to our service on November 27 for respiratory failure and UTI sepsis and was discharged to [facility]. The patient had noted that she was ambulating at home with her walker when she had fallen on Wednesday 12/27, when she struck her head in the left side of her chest and hip. Patient had denied any loss of consciousness, chest pain, or palpitations prior to the fall. She had noted that she fell simply b ecause she lost her balance. The patient also endorsed ongoing cough over the past few days and was noted to have infiltrates on her chest x-ray with laboratory evaluation revealing a leukocytosis. Patient was subsequently admitted to medicine service for sepsis secondary to hospital-acquired pneu monia. The patient was seen and examined at the bedside on 01/01. She notes feeling better and that her cough is somewhat improved. She continues to have L sided chest pain, w/ respiration. She denied any additional complaints including fever, chills, nausea, or vomiting. Objective - Vital Signs Vital signs: Vital Signs Temp 98 F 01/01/19 12:20 Pulse 70 01/01/19 12:23 Resp 20 01/01/19 12:20 BP 97/56 01/01/19 12:20 Pulse Ox 99 01/01/19 12:20 Intake & Output 12/31/18 01/01/19 01/01/19 18:59 06:59 18:59 Intake Total 650 210 Balance 650 210 Intake: Intake, IV Titration 650 210 Amount Cefepime 2 gm In Sodium 100 Chloride 0.9% 100 ml @ 200 mls/hr IVPB Q24H [facility] Rx#:[id number] Sodium Chloride 0.9% 1, 400 110 000 ml @ 50 mls/hr IV . Q20H [facility] Rx#:[id number] Vancomycin 1,250 mg In 250 Sodium Chloride 0.9% 250 ml @ 125 mls/hr IVPB ONCE ONE Rx#:[id number] Other: Voiding Method Bedpan Bedside Commode Bedpan # Voids 1 2 1 - Exam General: Non-toxic, in no acute distress, appears stated age, normal weight HEENT: NC/AT, anicteric sclerae, moist conjunctiva, no lid-lag, PERRLA Cardiovascular: S1/S2 wnl, no murmurs, rubs, or gallops Lungs: Minimal sanjay ronchi, normal respiratory effort, no accessory muscle use Abdominal: Soft, non-tender, non-distended, no guarding, rebound, or rigidity, PEG tube in place, clean and dry Skin: Warm, dry Extremities: No edema or contractures Psychiatric: Alert and oriented to person, place and time, appropriate affect Neuro: CN II-XII grossly intact, Strength 4/5 in all 4 extremities, Speech intact, Sensation to light touch grossly intact throughout - Labs CBC & Chem 7: 01/01/19 07:36 01/01/19 07:36 Labs: Abnormal Lab Results - Last 24 Hours (Table) 01/01/19 01/01/19 Range/Units 07:36 07:36 WBC 11.4 H (3.8-10.6) k/uL RBC 3.18 L (3.80-5.40) m/uL Hgb 10.0 L (11.4-16.0) gm/dL Hct 29.5 L (34.0-46.0) % RDW 15.7 H (11.5-15.5) % BUN 49 H (7-17) mg/dL Creatinine 1.64 H (0.52-1.04) mg/dL AST 62 H (14-36) U/L ALT 55 H (9-52) U/L Albumin 3.2 L (3.5-5.0) g/dL Microbiology - Last 24 Hours (Table) 12/30/18 12:30 Blood Culture - Preliminary Blood No Growth after 24 hours Assessment and Plan Plan: Hospital acquired pnuemonia, sepsis resolved -C/w Vancomycin and Cefepime for now -Conservative IVFs due to hx of diastolic CHF -Blood cultures negative to date -Leukocytosis improved -Supplemental oxygen COPD, not in acute exacerbation -C/w Duonebs L rib fracture -Incentive spirometer -Pain control Mechanical Fall -Fall precautions -PT/OT recommend JACKIE upon discharge Normocytic anemia, at baseline -Likely due to chronic disease CKD stage 3 -Monitor BMP -Avoid nephrotoxic agents Deranged LFTs, improved -Monitor for now -Possibly secondary to sepsis Abnormal UA -Patient has hx of chronic UTIs -In light of no urinary complaints, hold off on treatment for now Paroxysmal A-fib -C/w Eliquis and Amiodarone DVT prophylaxis -Eliquis Discussed with: Patient Anticipated discharge date: 1-[address]: [facility] A total of 35 minutes was spent on the care of this complex patient more than 50% of the time was spent in counseling and care coordination.
[2019-01-01] MEDS: SODIUM CHLORIDE 0.9% 1,000 ML IV SCH (18:06)
[2019-01-01] MEDS: ATORVASTATIN 20 MG TAB PO SCH (20:34)
[2019-01-01] MEDS: MONTELUKAST 10 MG TAB PO SCH (20:35)
[2019-01-01] MEDS: CEFEPIME 2 GM in SODIUM CHLORIDE 0.9% 100 ML IVPB SCH (20:35)
[2019-01-01] MEDS: FOLIC ACID 1 MG TAB PO SCH (20:35)
[2019-01-01] MEDS: QUEtiapine 100 MG TAB PO SCH (20:35)
[2019-01-01] MEDS: traMADol 50 MG TAB PO PRN (20:36)
[2019-01-01] MEDS: PANTOPRAZOLE 40 MG TABLET PO SCH (20:37)
[2019-01-01] MEDS: MELATONIN 3 MG TABLET PO PRN (21:34)
[2019-01-02] MEDS: METOPROLOL TARTRATE 50 MG TAB PO SCH ×3 (00:39→15:21)
[2019-01-02] MEDS: LEVOTHYROXINE 75 MCG TAB PO SCH (06:07)
[2019-01-02 07:10] LABS: HCT 28.1 % (34.0-46.0); HGB 9.5 gm/dL (11.4-16.0); Hypochromasia Slight; MCH 30.8 pg (25.0-35.0); MCHC 33.6 g/dL (31.0-37.0); MCV 91.5 fL (80.0-100.0); Platelet Count 282 k/uL (150-450); RBC 3.07 m/uL (3.80-5.40); RDW 15.5 % (11.5-15.5); WBC 9.1 k/uL (3.8-10.6)
[2019-01-02 08:00] LABS: Albumin 3.2 g/dL (3.5-5.0); Calcium 9.1 mg/dL (8.4-10.2); Potassium 3.6 mmol/L (3.5-5.1); Total Bilirubin 0.3 mg/dL (0.2-1.3); Total Protein 6.9 g/dL (6.3-8.2)
[2019-01-02 08:06] LABS: Vancomycin,Random 19.6 ug/mL
[2019-01-02] MEDS: amLODIPine 2.5 MG TAB PO SCH (08:06)
[2019-01-02] MEDS: TORSEMIDE 20 MG TAB PO SCH ×2 (08:14→20:18)
[2019-01-02] MEDS: ASPIRIN 81 MG PO SCH (08:16)
[2019-01-02] MEDS: ALPRAZolam 1 MG TAB PO PRN ×3 (08:16→21:31)
[2019-01-02] MEDS: AMIODARONE 200 MG TAB PO SCH (08:16)
[2019-01-02] MEDS: APIXABAN 5 MG TAB PO SCH ×2 (08:16→20:17)
[2019-01-02] MEDS: IPRATROPIUM-ALBUTEROL 3 ML NEB INHALATION SCH ×4 (08:31→21:24)
[2019-01-02] MEDS: traMADol 50 MG TAB PO PRN ×2 (12:38→18:06)
[2019-01-02] MEDS: SODIUM CHLORIDE 0.9% 1,000 ML IV SCH (12:39)
--- NOTE | 2019-01-02 14:17 | P.PN ---
Subjective Progress Note Date: 01/02/19 The patient is a 63 yo F, well known to our service, w/ an extensive past medical history including COPD, cardiac arrest s/p trach with subsequent reversal, PEG tube (scheduled for reversal), presented to the ED with complaints of fall at home. Of note, the patient was recently admitted to our service on November 27 for respiratory failure and UTI sepsis and was discharged to [facility]. The patient had noted that she was ambulating at home with her walker when she had fallen on Wednesday 12/27, when she struck her head in the left side of her chest and hip. Patient had denied any loss of consciousness, chest pain, or palpitations prior to the fall. She had noted that she fell simply b ecause she lost her balance. The patient also endorsed ongoing cough over the past few days and was noted to have infiltrates on her chest x-ray with laboratory evaluation revealing a leukocytosis. Patient was subsequently admitted to medicine service for sepsis secondary to hospital-acquired pneu monia. The patient was seen and examined at the bedside on 01/02. She continues to feel better. Cough and chest pain improved. She is scheduled to undergo PEG tube removal today by Dr. Marcos. She is pending auth for transfer to [facility]. Objective - Vital Signs Vital signs: Vital Signs Temp 97.1 F L 01/02/19 11:53 Pulse 88 01/02/19 12:54 Resp 17 01/02/19 11:53 BP 106/70 01/02/19 11:53 Pulse Ox 97 01/02/19 11:53 Intake & Output 01/01/19 01/02/19 01/02/19 18:59 06:59 18:59 Intake Total 400 1910 Balance 400 1910 Intake: Intake, IV Titration 400 400 Amount Cefepime 2 gm In Sodium 100 Chloride 0.9% 100 ml @ 200 mls/hr IVPB Q24H [facility] Rx#:[id number] Sodium Chloride 0.9% 1, 400 50 000 ml @ 50 mls/hr IV . Q20H [facility] Rx#:[id number] Vancomycin 1,250 mg In 250 Sodium Chloride 0.9% 250 ml @ 125 mls/hr IVPB ONCE ONE Rx#:[id number] Oral 1510 Other: Voiding Method Bedpan Bedside Commode Bedpan Diaper Incontinent # Voids 3 3 7 - Exam General: Non-toxic, in no acute distress, appears stated age, normal weight HEENT: NC/AT, anicteric sclerae, moist conjunctiva, no lid-lag, PERRLA Cardiovascular: S1/S2 wnl, no murmurs, rubs, or gallops Lungs: CTABL, normal respiratory effort, no accessory muscle use Abdominal: Soft, non-tender, non-distended, no guarding, rebound, or rigidity, PEG tube in place, clean and dry Skin: Warm, dry Extremities: No edema or contractures Psychiatric: Alert and oriented to person, place and time, appropriate affect Neuro: CN II-XII grossly intact, Strength 4/5 in all 4 extremities, Speech intact, Sensation to light touch grossly intact throughout - Labs CBC & Chem 7: 01/02/19 06:32 01/02/19 06:32 Labs: Abnormal Lab Results - Last 24 Hours (Table) 01/02/19 01/02/19 Range/Units 06:32 06:32 RBC 3.07 L (3.80-5.40) m/uL Hgb 9.5 L (11.4-16.0) gm/dL Hct 28.1 L (34.0-46.0) % BUN 45 H (7-17) mg/dL Creatinine 1.71 H (0.52-1.04) mg/dL AST 44 H (14-36) U/L Alkaline Phosphatase 129 H (38-126) U/L Albumin 3.2 L (3.5-5.0) g/dL Microbiology - Last 24 Hours (Table) 12/30/18 12:30 Blood Culture - Preliminary Blood No Growth after 48 hours Assessment and Plan Plan: Hospital acquired pnuemonia, sepsis resolved -C/w Vancomycin and Cefepime for now -Conservative IVFs due to hx of diastolic CHF -Blood cultures negative to date -Leukocytosis resolved -Supplemental oxygen COPD, not in acute exacerbation -C/w Duonebs L rib fracture -Incentive spirometer -Pain control Mechanical Fall -Fall precautions -PT/OT recommend JACKIE upon discharge Normocytic anemia, at baseline -Likely due to chronic disease CKD stage 3 -Monitor BMP -Avoid nephrotoxic agents Deranged LFTs, improved -Monitor for now -Possibly secondary to sepsis Abnormal UA -Patient has hx of chronic UTIs -In light of no urinary complaints, hold off on treatment for now Paroxysmal A-fib -C/w Eliquis and Amiodarone DVT prophylaxis -Eliquis Discussed with: Patient Anticipated discharge date: 1-[address]: [facility] A total of 35 minutes was spent on the care of this complex patient more than 50% of the time was spent in counseling and care coordination.
[2019-01-02] MEDS ORDERED: VANCOMYCIN 1,250 MG in SODIUM CHLORIDE 0.9% 250 ML IVPB ONE (16:00)
--- NOTE | 2019-01-02 19:34 | CONS ---
CONSULTATION DATE OF DICTATION: 01/02/2019. REASON FOR CONSULTATION: PEG tube removal. HISTORY OF PRESENT ILLNESS: The patient is a 63-year-old pleasant white female admitted to the hospital because of generalized weakness and frequent falls at home. She has a past medical history that is significant for a cardiac arrest, at which time she had a prolonged hospitalization and underwent tracheostomy and PEG tube placement. Since then she has been in rehab and has gradually recovered. We are consulted for PEG tube removal today. The patient states that she has not been using the PEG tube for the last one month's duration. She denies any abdominal pain. She reports no nausea or vomiting. Since being in the hospital, she has been having a regular diet and tolerating well, as per the nursing staff. PAST MEDICAL HISTORY: Her past medical history is significant for: 1. Coronary artery disease. 2. Atrial fibrillation, on Eliquis. 3. History of DVT. 4. GERD. 5. Hypertension. 6. Hyperlipidemia. 7. Mild memory impairment. PAST SURGICAL HISTORY: 1. Cholecystectomy. 2. Appendectomy. 3. Trach and PEG a few months ago. 4. Hysterectomy. 5. Cardiac catheterization with stent placements. 6. She had a tracheostomy that was removed about 3 weeks ago. 7. PEG tube placement a few months ago. MEDICATIONS: Her current medications include: 1. Nitroglycerin. 2. Cordarone. 3. Eliquis. 4. Aspirin. 5. Folic acid. 6. Zoloft. 7. Norvasc. ALLERGIES: 1. WELLBUTRIN. 2. MACROBID. 3. SULFA. 4. TETRACYCLINE. SOCIAL HISTORY: No smoking. No alcohol use. FAMILY HISTORY: Unremarkable. REVIEW OF SYSTEMS: CARDIOPULMONARY: She denies any chest pain or shortness of breath. GENITOURINARY: No dysuria or hematuria. MUSCULOSKELETAL: Unremarkable. SKIN: She complains of some pain around the PEG tube site. ENT/VISION: Unremarkable. CONSTITUTIONAL: No recent weight loss. No fever, chills, night sweats. NEUROLOGIC: Unremarkable. She may have some mild memory impairment. ENT/VISION: Unremarkable. PHYSICAL EXAMINATION: She appears comfortable. No apparent distress. VITAL SIGNS: Stable. Blood pressure is 112/86, pulse rate 82 per minute and afebrile. HEENT examination unremarkable. Conjunctivae pink. Sclerae anicteric. Oral cavity no lesions. NECK: No JVD or lymph node enlargement. CHEST: Clear to auscultation. HEART: Regular rate and rhythm. ABDOMEN: Soft. The PEG tube was in place, and around the PEG tube site there was some oozing identified with some scabs noted of old blood clots, but the abdomen was benign, non-distended, non-tender. EXTREMITIES: No pedal edema. SKIN: No rashes. NEUROLOGIC: She is alert and oriented x3. No focal deficits. IMPRESSION: 1. History of cardiac arrest in the past, at which time she had a trach and PEG tube placed. The patient since then has recovered. The trach was removed about 3 weeks ago. We are consulted for PEG tube removal. 2. History of atrial fibrillation, on Eliquis. 3. Weakness and frequent falls, for which patient was hospitalized but currently doing better. RECOMMENDATIONS: I examined the PEG tube at the bedside. There was some oozing noted around the PEG tube with some old blood clots identified. The patient has been on Eliquis and her last dose was this morning. Since the patient is on Eliquis currently, I did not feel comfortable removing the PEG tube at the bedside, as there is increased risk of bleeding, and hence I recommended to the patient that she can be discharged to the [facility] tomorrow for rehab purposes and I will make an outpatient appointment to come to the hospital early next week after she stops the Eliquis for 2 days, and we can perform PEG tube removal at that time. The patient was agreeable with this plan. Thank you for this consultation. MMODL / IJN: [id number] /
[2019-01-02] MEDS: MONTELUKAST 10 MG TAB PO SCH (20:17)
[2019-01-02] MEDS: ATORVASTATIN 20 MG TAB PO SCH (20:17)
[2019-01-02] MEDS: CEFEPIME 2 GM in SODIUM CHLORIDE 0.9% 100 ML IVPB SCH (20:17)
[2019-01-02] MEDS: PANTOPRAZOLE 40 MG TABLET PO SCH (20:18)
[2019-01-02] MEDS: QUEtiapine 100 MG TAB PO SCH (20:18)
[2019-01-02] MEDS: HYDROcodone/APAP 5-325MG 1 EACH TAB PO PRN (20:18)
[2019-01-02] MEDS: FOLIC ACID 1 MG TAB PO SCH (20:18)
[2019-01-02] MEDS: MELATONIN 3 MG TABLET PO PRN (21:31)
[2019-01-03] MEDS: METOPROLOL TARTRATE 50 MG TAB PO SCH ×2 (00:03→09:59)
[2019-01-03] MEDS: LEVOTHYROXINE 75 MCG TAB PO SCH (05:47)
[2019-01-03] MEDS: IPRATROPIUM-ALBUTEROL 3 ML NEB INHALATION SCH ×2 (08:34→11:34)
[2019-01-03] MEDS: SODIUM CHLORIDE 0.9% 1,000 ML IV SCH (09:58)
[2019-01-03] MEDS: TORSEMIDE 20 MG TAB PO SCH (09:59)
[2019-01-03] MEDS: ASPIRIN 81 MG PO SCH (09:59)
[2019-01-03] MEDS: AMIODARONE 200 MG TAB PO SCH (09:59)
[2019-01-03] MEDS: APIXABAN 5 MG TAB PO SCH (09:59)
[2019-01-03] MEDS: amLODIPine 2.5 MG TAB PO SCH (09:59)
[2019-01-03] MEDS: ALPRAZolam 1 MG TAB PO PRN (10:03)
--- NOTE | 2019-01-03 10:19 | P.DS ---
Providers Date of admission: 12/30/18 14:41 Expected date of discharge: 01/03/19 Attending physician: Mirza Sepulveda MD Consults: 01/01/19 14:27 Consult Physician Routine Consulting Provider: Nelida Marcos Consult Reason/Comments: Peg tube removal Do you want consulting provider notified?: Yes, Notify in am Primary care physician: Xiomara Deleon MD Hospital Course: The patient is a 63 yo F, well known to our service, w/ an extensive past medical history including COPD, cardiac arrest s/p trach with subsequent reversal, PEG tube (scheduled for reversal), presented to the ED with complaints of fall at home. Of note, the patient was recently admitted to our service on November 27 for respiratory failure and UTI sepsis and [facility] The patient had noted that she was ambulating at home with her walker when she had fallen on Wednesday 12/27, when she struck her head in the left side of her chest and hip. Patient had denied any loss of consciousness, chest pain, or palpitations prior to the fall. She had noted that she fell simply because she lost her balance. The patient also endorsed ongoing cough over the past few days and was noted to have infiltrates on her chest x-ray with laboratory evaluation revealing a leukocytosis. Patient was subsequently admitted to medicine service for sepsis secondary to hospital-acquired pneumon ia. Patient was started on IV antibiotics along with no after which she gradually improved. The patient was also given pain control for left rib fracture. Physical therapy evaluated the patient and recommended subacute rehab. The patient was also evaluated by GI for possible removal of her PEG tube. Dr. Marcos recommended that since the patient is on Eliquis, she should hold the Eliquis for 2 days and follow-up with her in the clinic for the removal. The patient was seen and examined at the bedside on the day of discharge. She was in good spirits and noted significant improvement in her breathing and coughing. She also noted improvement in her left-sided chest pain. She denied any additional complaints including fever, chills, nausea, or vomiting. She is ready and agreeable to discharge to [facility]. Physical Examination General: Non-toxic, in no acute distress, appears stated age, normal weight HEENT: NC/AT, anicteric sclerae, moist conjunctiva, no lid-lag, PERRLA Cardiovascular: S1/S2 wnl, no murmurs, rubs, or gallops Lungs: Clear to auscultation, normal respiratory effort, no accessory muscle use Abdominal: Soft, non-tender, non-distended, no guarding, rebound, or rigidity Skin: Warm, dry Extremities: No edema or contractures Psychiatric: Alert and oriented to person, place and time, appropriate affect Neuro: CN II-XII grossly intact, Strength 4/5 in all 4 extremities, Speech intact, Sensation to light touch grossly intact throughout Discharge diagnosis: Hospital Acquired pneumonia, sepsis resolved; COPD, not in acute exacerbation; mechanical fall, L sided rib fracture, normocytic anemia; CKD stage 3; deranged LFTs; paroxysmal afib A total of 40 minutes of time were spent preparing this complex discharge summary. Patient Condition at Discharge: Stable Plan - Discharge Summary Discharge Rx Participant: No New Discharge Prescriptions: New Amoxicillin/Potassium Clav [Augmentin 875-125 Tablet] 1 tab PO BID 3 Days #6 tab traMADol HCl [Ultram] 50 mg PO BID PRN #4 tab PRN Reason: Mild To Moderate Pain Continue Nitroglycerin Sl Tabs [Nitrostat] 0.4 mg SUBLINGUAL Q5M PRN PRN Reason: Chest Pain Atorvastatin [Lipitor] 20 mg PO HS@2000 #0 Metoprolol Tartrate [Lopressor] 50 mg PO Q8H #0 Omeprazole 20 mg PO HS #0 QUEtiapine [SEROquel] 100 mg PO HS #2 tab Montelukast [Singulair] 10 mg PO HS@2000 #0 Levothyroxine Sodium [Synthroid] 75 mcg PO DAILY@0630 #0 tab Torsemide [Demadex] 10 mg PO BID #0 Amiodarone [Cordarone] 200 mg PO QAM amLODIPine [Norvasc] 2.5 mg PO QAM Apixaban [Eliquis] 5 mg PO BID Aspirin 81 mg PO DAILY Folic Acid 1 mg PO HS Sertraline HCl [Zoloft] 100 mg PO QAM HYDROcodone/APAP 5-325MG [[place] 5-325] 1 tab PO Q6HR PRN #6 tab PRN Reason: Pain ALPRAZolam [Xanax] 0.5 mg PO Q6H PRN #6 tablet PRN Reason: Anxiety Discharge Medication List Nitroglycerin Sl Tabs [Nitrostat] 0.4 mg SUBLINGUAL Q5M PRN 12/29/13 [History] Atorvastatin [Lipitor] 20 mg PO HS@1999 #0 12/06/18 [Rx] Levothyroxine Sodium [Synthroid] 75 mcg PO DAILY@0630 #0 tab 12/06/18 [Rx] Metoprolol Tartrate [Lopressor] 50 mg PO Q8H #0 12/06/18 [Rx] Montelukast [Singulair] 10 mg PO HS@2000 #0 12/06/18 [Rx] Omeprazole 20 mg PO HS #0 12/06/18 [Rx] QUEtiapine [SEROquel] 100 mg PO HS #2 tab 12/06/18 [Rx] Torsemide [Demadex] 10 mg PO BID #0 12/06/18 [Rx] Amiodarone [Cordarone] 200 mg PO QAM 12/22/18 [History] Apixaban [Eliquis] 5 mg PO BID 12/22/18 [History] Aspirin 81 mg PO DAILY 12/22/18 [History] Folic Acid 1 mg PO HS 12/22/18 [History] Sertraline HCl [Zoloft] 100 mg PO QAM 12/22/18 [History] amLODIPine [Norvasc] 2.5 mg PO QAM 12/22/18 [History] ALPRAZolam [Xanax] 0.5 mg PO Q6H PRN #6 tablet 01/03/19 [Rx] Amoxicillin/Potassium Clav [Augmentin 875-125 Tablet] 1 tab PO BID 3 Days #6 tab 01/03/19 [Rx] HYDROcodone/APAP 5-325MG [[place] 5-325] 1 tab PO Q6HR PRN #6 tab 01/03/19 [Rx] traMADol HCl [Ultram] 50 mg PO BID PRN #4 tab 01/03/19 [Rx] Follow up Appointment(s)/Referral(s): Xiomara Deleon MD [Primary Care Provider] - 1-2 days Nelida Marcos MD [STAFF PHYSICIAN] - 1 Week Activity/Diet/Wound Care/Special Instructions: Please hold Eliquis for 48 hours prior to appointment with Dr Marcos for PEG-tube removal Discharge Disposition: TRANSFER TO SNF/ECF
[2019-01-03 12:32] VITALS: BP 90/56; PULSE 65; RESP 17; TEMP 97.3
[2019-01-03] MEDS: HYDROcodone/APAP 5-325MG 1 EACH TAB PO PRN (12:36)
== END 2019-01-03 13:30 | DRG 871 ==
LOC: EC 10:44 → 3NMEDONC 14:41
PROVIDERS: ADMIT Family Medicine; ATTEND Family Medicine
DX: A41.9 Sepsis, unspecified organism (principal); J18.9 Pneumonia, unspecified organism; S22.32XA Fracture of one rib, left side, initial encounter for closed fracture; N39.0 Urinary tract infection, site not specified; I50.32 Chronic diastolic (congestive) heart failure; N18.4 Chronic kidney disease, stage 4 (severe); I13.0 Hypertensive heart and chronic kidney disease with heart failure and stage 1 through stage 4 chronic kidney disease, or unspecified chronic kidney disease; J44.0 Chronic obstructive pulmonary disease with (acute) lower respiratory infection; S00.83XA Contusion of other part of head, initial encounter; S70.12XA Contusion of left thigh, initial encounter; W18.30XA Fall on same level, unspecified, initial encounter; Y92.019 Unspecified place in single-family (private) house as the place of occurrence of the external cause; Y95 Nosocomial condition; I48.0 Paroxysmal atrial fibrillation; D64.9 Anemia, unspecified; I25.10 Atherosclerotic heart disease of native coronary artery without angina pectoris; E78.5 Hyperlipidemia, unspecified; K21.9 Gastro-esophageal reflux disease without esophagitis; F31.9 Bipolar disorder, unspecified; F41.9 Anxiety disorder, unspecified; R29.6 Repeated falls; Z90.710 Acquired absence of both cervix and uterus; Z90.49 Acquired absence of other specified parts of digestive tract; Z95.5 Presence of coronary angioplasty implant and graft; Z79.899 Other long term (current) drug therapy; Z79.01 Long term (current) use of anticoagulants; Z79.82 Long term (current) use of aspirin; Z79.890 Hormone replacement therapy; Z87.891 Personal history of nicotine dependence; Z86.14 Personal history of Methicillin resistant Staphylococcus aureus infection; Z86.74 Personal history of sudden cardiac arrest; Z87.820 Personal history of traumatic brain injury; Z87.440 Personal history of urinary (tract) infections; Z88.1 Allergy status to other antibiotic agents; Z86.718 Personal history of other venous thrombosis and embolism; Z88.2 Allergy status to sulfonamides; Z88.8 Allergy status to other drugs, medicaments and biological substances; Z90.89 Acquired absence of other organs; Z98.42 Cataract extraction status, left eye; Z98.41 Cataract extraction status, right eye; Z80.9 Family history of malignant neoplasm, unspecified
CPT/HCPCS: 36415; 70450; 70486; 71046; 72100; 72125; 72170; 80053; 80202; 81001; 83605; 83735; 83880; 84484; 85025; 85027; 85610; 85730; 87040; 93005; 94640; 94760; 96361; 96365; 96367; 96375; 99285

== ENCOUNTER 2019-01-18 17:58 | Inpatient (IN) | payer OTHER ==
[2019-01-18] MEDS ORDERED: SODIUM CHLORIDE 0.9% 500 ML 500 ML IV STA (18:44)
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
[2019-01-18 19:31] LABS: Basophils # (A) 0.1 k/uL (0-0.2); Basophils % (A) 1 %; Eosinophils # (A) 0.4 k/uL (0-0.7); Eosinophils % (A) 5 %; HCT 29.4 % (34.0-46.0); HGB 9.8 gm/dL (11.4-16.0); Lymphocytes # (A) 2.6 k/uL (1.0-4.8); Lymphocytes % (A) 29 %; MCH 31.3 pg (25.0-35.0); MCHC 33.2 g/dL (31.0-37.0); MCV 94.1 fL (80.0-100.0); Mean Platelet Volume 6.3; Monocytes # (A) 0.4 k/uL (0-1.0); Monocytes % (A) 5 %; Neutrophils # (A) 5.3 k/uL (1.3-7.7); Neutrophils % (A) 59 %; Platelet Count 288 k/uL (150-450); RBC 3.12 m/uL (3.80-5.40); RDW 15.5 % (11.5-15.5); WBC 9.1 k/uL (3.8-10.6)
[2019-01-18 19:34] LABS: Albumin 3.5 g/dL (3.5-5.0); Calcium 8.8 mg/dL (8.4-10.2); Total Bilirubin 0.4 mg/dL (0.2-1.3); Total Protein 7.4 g/dL (6.3-8.2)
[2019-01-18 19:36] LABS: Potassium 4.1 mmol/L (3.5-5.1)
[2019-01-18] MEDS ORDERED: cefTRIAXone IN SWFI 1,000 MG/10 ML SYRINGE IVP STA (19:41)
[2019-01-18 19:56] LABS: Appearance,Urine Cloudy (Clear); Bacteria,Urine Many /hpf; Bilirubin,Urine Negative (Negative); Blood,Urine Moderate (Negative); Budding Yeast,Urine Few /hpf; Color,Urine Yellow; Glucose,Urine (UA) Negative (Negative); Hyaline Casts,Urine 2 /lpf (0-2); Ketones,Urine Negative (Negative); Leukocyte Esterase,Urine Large (Negative); Mucus,Urine Rare /hpf; Nitrite,Urine Positive (Negative); PH, Urine 5.5 (5.0-8.0); Protein,Urine Trace (Negative); RBC,Urine 129 /hpf (0-5); Specific Gravity,Urine 1.014 (1.001-1.035); Squamous Epithelial Cell,Urine 5 /hpf (0-4); Urobilinogen,Urine <2.0 mg/dL (<2.0); WBC,Urine >182 /hpf (0-5)
[2019-01-18] MEDS ORDERED: NALOXONE 0.4 MG/ML 1 ML VIAL IV PRN (20:20)
[2019-01-18] MEDS: SODIUM CHLORIDE 0.9% 1,000 ML IV SCH (21:10)
[2019-01-18] MEDS ORDERED: NITROGLYCERIN SL TABS 0.4 MG TAB SUBLINGUAL PRN (21:57)
[2019-01-18] MEDS: METOPROLOL TARTRATE 50 MG TAB PO SCH (23:45)
[2019-01-18] MEDS: APIXABAN 5 MG TAB PO SCH (23:45)
[2019-01-18] MEDS: FUROSEMIDE 10 MG TAB PO SCH (23:46)
[2019-01-18] MEDS: PIPERACILLIN-TAZOBACTAM 3.375 GM in SODIUM CHLORIDE 0.9% 100 ML IVPB SCH (23:46)
[2019-01-18] MEDS: QUEtiapine 100 MG TAB PO SCH (23:46)
[2019-01-19 00:33] VITALS: BMI 26.6
[2019-01-19] MEDS: LEVOTHYROXINE 75 MCG TAB PO SCH (08:00)
[2019-01-19] MEDS: METOPROLOL TARTRATE 50 MG TAB PO SCH ×3 (08:00→20:42)
[2019-01-19] MEDS ORDERED: ASPIRIN 81 MG PO SCH (09:00)
[2019-01-19] MEDS: AMIODARONE 200 MG TAB PO SCH (09:30)
[2019-01-19] MEDS: SERTRALINE 100 MG TAB PO SCH (09:30)
[2019-01-19] MEDS: PIPERACILLIN-TAZOBACTAM 3.375 GM in SODIUM CHLORIDE 0.9% 100 ML IVPB SCH ×2 (09:31→17:29)
[2019-01-19] MEDS ORDERED: INFLUENZA VACCINE (6 MOS+) 60 MCG/0.5 ML SYRINGE IM ONE (10:00)
[2019-01-19] MEDS: APIXABAN 5 MG TAB PO SCH (10:30)
[2019-01-19] MEDS: FUROSEMIDE 10 MG TAB PO SCH ×2 (10:43→20:43)
[2019-01-19] MEDS ORDERED: IPRATROPIUM-ALBUTEROL 3 ML NEB INHALATION PRN (10:49)
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
[2019-01-19] MEDS: IPRATROPIUM-ALBUTEROL 3 ML NEB INHALATION SCH ×3 (11:04→20:17)
[2019-01-19 11:08] LABS: Basophils % (A) 1 %; Eosinophils # (A) 0.3 k/uL (0-0.7); Eosinophils % (A) 4 %; HGB 9.8 gm/dL (11.4-16.0); Hypochromasia Slight; Lymphocytes # (A) 1.8 k/uL (1.0-4.8); Lymphocytes % (A) 24 %; MCH 31.1 pg (25.0-35.0); MCHC 32.8 g/dL (31.0-37.0); MCV 94.9 fL (80.0-100.0); Mean Platelet Volume 6.3; Monocytes # (A) 0.4 k/uL (0-1.0); Monocytes % (A) 5 %; Neutrophils # (A) 4.6 k/uL (1.3-7.7); Neutrophils % (A) 64 %; Platelet Count 246 k/uL (150-450); RBC 3.16 m/uL (3.80-5.40); WBC 7.3 k/uL (3.8-10.6)
[2019-01-19 11:18] LABS: Albumin 3.1 g/dL (3.5-5.0); Calcium 8.6 mg/dL (8.4-10.2); Potassium 4.2 mmol/L (3.5-5.1); Total Bilirubin 0.4 mg/dL (0.2-1.3); Total Protein 6.7 g/dL (6.3-8.2)
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
--- NOTE | 2019-01-19 15:18 | XR ---
EXAMINATION TYPE: XR chest 2V DATE OF EXAM: 01/19/2019 COMPARISON: 12/30/2018 INDICATION: Cough TECHNIQUE: Frontal and lateral views of the chest are obtained. FINDINGS: The heart size is moderately prominent. The pulmonary vasculature is prominent. The lungs are clear. IMPRESSION: 1. Cardiomegaly with moderate prominence of the pulmonary vascular markings. Correlate for early volu me overload.
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
[2019-01-19] MEDS: SODIUM CHLORIDE 0.9% 1,000 ML IV SCH (17:21)
[2019-01-19] MEDS: traMADol 50 MG TAB PO PRN (17:30)
[2019-01-19] MEDS: PANTOPRAZOLE 40 MG/10 ML VIAL IVP SCH (17:30)
[2019-01-19 18:02] LABS: Iron Saturation 17.07 (12.00-45.00)
[2019-01-19 18:21] LABS: Ferritin 315.8 ng/mL (10.0-291.0)
[2019-01-19] MEDS: ATORVASTATIN 20 MG TAB PO SCH (20:42)
[2019-01-19] MEDS: MONTELUKAST 10 MG TAB PO SCH (20:42)
[2019-01-19] MEDS: ALPRAZolam 0.5 MG TAB PO PRN (20:42)
[2019-01-19] MEDS: FOLIC ACID 1 MG TAB PO SCH (20:42)
[2019-01-19] MEDS: QUEtiapine 100 MG TAB PO SCH (20:43)
[2019-01-19] MEDS ORDERED: PANTOPRAZOLE 40 MG TABLET PO SCH (21:00)
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
[2019-01-20] MEDS ORDERED: diphenhydrAMINE 25 MG CAP PO PRN (00:17)
[2019-01-20] MEDS: PANTOPRAZOLE 40 MG/10 ML VIAL IVP SCH ×3 (00:34→19:54)
[2019-01-20] MEDS: PIPERACILLIN-TAZOBACTAM 3.375 GM in SODIUM CHLORIDE 0.9% 100 ML IVPB SCH ×4 (00:56→23:45)
[2019-01-20] MEDS: HYDROmorphone 0.5 MG/0.5 ML SYRINGE IVP PRN ×2 (00:56→06:30)
[2019-01-20] MEDS: DOXYCYCLINE 100 MG CAP PO SCH ×3 (00:56→19:54)
[2019-01-20] MEDS: SODIUM CHLORIDE 0.9% 1,000 ML IV SCH (00:57)
[2019-01-20] MEDS: METOPROLOL TARTRATE 50 MG TAB PO SCH ×3 (06:17→20:53)
[2019-01-20] MEDS: LEVOTHYROXINE 75 MCG TAB PO SCH (06:17)
[2019-01-20] MEDS: IPRATROPIUM-ALBUTEROL 3 ML NEB INHALATION SCH ×4 (07:08→19:32)
[2019-01-20] MEDS: SERTRALINE 100 MG TAB PO SCH (07:44)
[2019-01-20] MEDS: FUROSEMIDE 10 MG TAB PO SCH ×2 (07:44→19:54)
[2019-01-20] MEDS: AMIODARONE 200 MG TAB PO SCH (07:44)
[2019-01-20] MEDS: QUEtiapine 100 MG TAB PO SCH (07:44)
[2019-01-20 08:51] LABS: Basophils % (A) 1 %; Eosinophils # (A) 0.3 k/uL (0-0.7); Eosinophils % (A) 5 %; HCT 30.4 % (34.0-46.0); HGB 9.7 gm/dL (11.4-16.0); Hypochromasia Slight; Lymphocytes # (A) 1.2 k/uL (1.0-4.8); Lymphocytes % (A) 21 %; MCH 30.8 pg (25.0-35.0); MCHC 31.8 g/dL (31.0-37.0); MCV 96.8 fL (80.0-100.0); Mean Platelet Volume 7.1; Monocytes # (A) 0.3 k/uL (0-1.0); Monocytes % (A) 5 %; Neutrophils % (A) 68 %; Platelet Count 232 k/uL (150-450); RBC 3.14 m/uL (3.80-5.40); RDW 15.6 % (11.5-15.5); WBC 5.9 k/uL (3.8-10.6)
[2019-01-20 09:01] LABS: Calcium 8.6 mg/dL (8.4-10.2); Potassium 3.6 mmol/L (3.5-5.1); Total Bilirubin 0.6 mg/dL (0.2-1.3); Total Protein 6.7 g/dL (6.3-8.2)
[2019-01-20] MEDS ORDERED: IV FLUID CONTINUATION 1,000 ML IV ONE (09:55)
[2019-01-20] MEDS ORDERED: LIDOCAINE 1% INJ 10MG/ML (20 ML MDV) ONE (09:55)
[2019-01-20] MEDS ORDERED: PROPOFOL 10 MG/ML 20 ML VIAL IV ONE (09:55)
--- NOTE | 2019-01-20 09:58 | P.PN ---
Subjective Progress Note Date: 01/20/19 This is a 63-year-old female, a patient of Dr. Walton. She has an extensive past medical history. Her past medical history includes COPD, cardiac arrest status post trach and PEG in August 2018. She has had reversal of the trach tube and [facility] [place]. 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 She also has history of CHF, coronary disease with previous cardiac stents and bipolar. He was discharged on 01/03/2019 from [facility] at that time was treated for pneumonia with sepsis and was discharged to [facility] for rehab. Patient had been to see Dr. Walton on Wednesday and at that time urine was collected. Patient was notified yesterday that the urine culture had resistant bacteria and was told to go to ER for antibiotics. Urine culture did grow E. coli ESBL. He is currently on Rocephin and IV Zosyn. Infectious disease has been consulted. Repeat urinalysis and culture have been ordered. Patient has been asymptomatic. She denies any fever, chills, sweats. Denies any urinary symptoms. She has been having a productive cough with yellowish sputum. Chest x-ray has been ordered and sputum culture collected. She sees Dr. Mathew in the office. She will be placed on consult. Infectious disease on consult regarding her UTI. Patient was scheduled for PEG tubes removed today in the outpatient setting. Therefore Eliquis has been on hold. Dr. Bennett was in the room today and removed PEG tube. There was blood present in the PEG tube and therefore he is recommending an EGD be completed. This be done tomorrow. Patient's protonix will be switched to IV twice a day Eliquis will remain on hold. She denies any vomiting or nausea. Denies any blood in the stools. Denies any chest pain or shortness breath. 01/20/2019 patient sitting up at the side of bed. Family at bedside. All questions answered. They are requesting a cardiology consult. Patient had an appointment with Dr. Orozco either today or tomorrow. They would like to see him or one of his associates in the hospital. Apparently medications were adjusted in the outpatient setting on a previous follow-up. Patient's family reports Plavix been discontinued as well as Norvasc. Patient's blood pressures are stable. She is scheduled for an EGD today. Repeat urine culture growing gram- negative bacilli. She is currently on IV Zosyn and doxycycline. Chest x-ray showing moderate prominence of pulmonary vascular markings correlate for CHF. Patient denies any chest pain or shortness of breath. No coughing at this time. Lung sounds have shown improvement. Was seen by pulmonary service and they felt that there is no evidence of pneumonia. No evidence of pneumonia present on chest x-ray. Patient denies any burning with urination. Objective - Vital Signs Vital signs: Vital Signs Temp 98.1 F 01/20/19 07:00 Pulse 68 01/20/19 07:20 Resp 12 01/20/19 07:00 BP 105/63 01/20/19 07:00 Pulse Ox 93 L 01/20/19 07:00 Intake & Output 01/19/19 01/20/19 01/20/19 18:59 06:59 18:59 Intake Total 765 Balance 765 Intake: Intake, IV Titration 525 Amount Sodium Chloride 0.9% 1, 525 000 ml @ 75 mls/hr IV . [id number] [facility] Rx#:[id number] Oral 240 Other: Voiding Method Diaper Toilet Toilet Diaper Diaper # Voids 1 - Exam Head normocephalic Neck supple Lungs clear to auscultation bilaterally no wheezing or crackles Heart regular rate and rhythm S1-S2, no rub or gallop Abdomen is soft nontender nondistended positive bowel sounds no hepatosplenome trev Extremities no edema Neuro alert and orientated to 3 - Labs CBC & Chem 7: 01/20/19 07:54 01/20/19 07:54 Labs: Abnormal Lab Results - Last 24 Hours (Table) 01/19/19 01/19/19 01/19/19 Range/Units 10:38 10:38 10:38 RBC 3.16 L (3.80-5.40) m/uL Hgb 9.8 L (11.4-16.0) gm/dL Hct 30.0 L (34.0-46.0) % RDW (11.5-15.5) % Chloride 110 H (98-107) mmol/L Carbon Dioxide 21 L (22-30) mmol/L BUN 29 H (7-17) mg/dL Creatinine 1.59 H (0.52-1.04) mg/dL Iron 35 L (50-170) ug/dL TIBC 205 L (228-460) ug/dL Ferritin 315.8 H (10.0-291.0) ng/mL AST (14-36) U/L Alkaline Phosphatase 128 H (38-126) U/L Albumin 3.1 L (3.5-5.0) g/dL 01/20/19 01/20/19 Range/Units 07:54 07:54 RBC 3.14 L (3.80-5.40) m/uL Hgb 9.7 L (11.4-16.0) gm/dL Hct 30.4 L (34.0-46.0) % RDW 15.6 H (11.5-15.5) % Chloride 110 H (98-107) mmol/L Carbon Dioxide (22-30) mmol/L BUN 23 H (7-17) mg/dL Creatinine 1.49 H (0.52-1.04) mg/dL Iron (50-170) ug/dL TIBC (228-460) ug/dL Ferritin (10.0-291.0) ng/mL AST 53 H (14-36) U/L Alkaline Phosphatase 158 H (38-126) U/L Albumin 3.0 L (3.5-5.0) g/dL Microbiology - Last 24 Hours (Table) 01/19/19 20:20 Gram Stain - Preliminary Sputum Sputum Culture - Preliminary 01/18/19 19:25 Urine Culture - Preliminary Urine,Voided Gram Neg Bacilli 01/18/19 19:05 Blood Culture - Preliminary Blood No Growth after 24 hours Assessment and Plan Assessment: 1. UTI with urine culture growing ESBL E. coli in the outpatient setting. Patient currently on IV Zosyn. Infectious disease is following. They're anticipating placement of midline for discharge and IV Invanz 1 g daily for UTI. Repeat urine culture growing gram-negative bacilli 2. GI bleeding and gastrostomy tube with anemia. Patient scheduled for EGD today. aspirin and Eliquis will remain on hold. Continue IV Protonix 40 mg twice a day. 3. Chronic cough. No evidence of pneumonia on chest x-ray. Was seen evaluated by pulmonary service. Per infectious disease he is concerns of possible tracheitis they have added doxycycline 4. History of cardiac arrest in August 2018 requiring trach and PEG. Patient has had reversal trach. PEG tube removed during this admission in August 5. Chronic kidney disease stage III, has received hemodialysis on a temporary basis on previous admission 6. Paroxysmal atrial fibrillation: Anticoagulated with Eliquis which is currently on hold. Continue the amiodarone and metoprolol for rate control. 7. Essential hypertension: Blood pressures are stable. Continue with current medications 8. Hypothyroidism continue Synthroid 9. Hyperlipidemia continue Lipitor 10. History of COPD: Stable. Continue DuoNeb updrafts 4 times a day and as needed 11. History of bipolar continue her Seroquel and Zoloft 12. Iron deficiency anemia: Hemoglobin 9.7. Total iron low at 35. Start ferrous sulfate 325 mg twice a day 13. Recent hospitalization for hospital-acquired pneumonia and mechanical fall with left-sided rib fracture. Patient had completed Augmentin. 14. Fluid overload noted on chest x-ray. Hep-Lock IV fluids. Check BNP level. GI prophylaxis Protonix and DVT prophylaxis SCDs until we can resume patient's Eliquis I performed an examination of the patient and discussed their management with the physician Glycerine Plant Operator. I have reviewed the Physician Glycerine Plant Operator's notes and agree with the documented findings and plan of care
--- NOTE | 2019-01-20 12:04 | P.PN ---
Progress Note - Text Progress Note Date: 01/20/19 Patient's EGD was performed. It appears that her upper GI bleeding is due to PEG tube site trauma. Her PEG tube was removed yesterday. There is no incision any bleeding in the stomach. A pair patient will start on diet.
[2019-01-20] MEDS: APIXABAN 5 MG TAB PO SCH ×2 (13:27→20:05)
[2019-01-20] MEDS: ALPRAZolam 0.5 MG TAB PO PRN ×2 (13:27→20:05)
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
[2019-01-20] MEDS: traMADol 50 MG TAB PO PRN (18:31)
[2019-01-20] MEDS: MONTELUKAST 10 MG TAB PO SCH (19:54)
[2019-01-20] MEDS: ATORVASTATIN 20 MG TAB PO SCH (19:54)
[2019-01-20] MEDS: FERROUS SULFATE 325 MG TAB PO SCH (19:54)
[2019-01-20] MEDS: FOLIC ACID 1 MG TAB PO SCH (19:54)
[2019-01-20] MEDS: ZOLPIDEM 5 MG TAB PO PRN (20:53)
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
[2019-01-21] MEDS: METOPROLOL TARTRATE 50 MG TAB PO SCH ×3 (05:03→23:10)
[2019-01-21] MEDS: LEVOTHYROXINE 75 MCG TAB PO SCH (05:03)
[2019-01-21 06:53] LABS: Basophils % (A) 0 %; Eosinophils # (A) 0.4 k/uL (0-0.7); Eosinophils % (A) 5 %; HCT 28.6 % (34.0-46.0); HGB 9.4 gm/dL (11.4-16.0); Hypochromasia Slight; Lymphocytes # (A) 1.6 k/uL (1.0-4.8); Lymphocytes % (A) 22 %; MCH 31.5 pg (25.0-35.0); MCHC 32.8 g/dL (31.0-37.0); MCV 95.8 fL (80.0-100.0); Monocytes # (A) 0.4 k/uL (0-1.0); Monocytes % (A) 5 %; Neutrophils # (A) 4.7 k/uL (1.3-7.7); Neutrophils % (A) 66 %; Platelet Count 248 k/uL (150-450); RBC 2.99 m/uL (3.80-5.40); RDW 14.9 % (11.5-15.5); WBC 7.2 k/uL (3.8-10.6)
[2019-01-21 07:36] LABS: Albumin 3.2 g/dL (3.5-5.0); Calcium 8.7 mg/dL (8.4-10.2); Potassium 3.4 mmol/L (3.5-5.1); Total Bilirubin 0.5 mg/dL (0.2-1.3)
[2019-01-21] MEDS: IPRATROPIUM-ALBUTEROL 3 ML NEB INHALATION SCH ×4 (08:16→20:10)
[2019-01-21] MEDS: SERTRALINE 100 MG TAB PO SCH (08:40)
[2019-01-21] MEDS: FERROUS SULFATE 325 MG TAB PO SCH ×2 (08:41→20:17)
[2019-01-21] MEDS: FUROSEMIDE 10 MG TAB PO SCH ×2 (08:41→20:17)
[2019-01-21] MEDS: ASPIRIN 81 MG PO SCH (08:41)
[2019-01-21] MEDS: DOXYCYCLINE 100 MG CAP PO SCH ×2 (08:41→20:17)
[2019-01-21] MEDS: APIXABAN 5 MG TAB PO SCH ×2 (08:41→20:18)
[2019-01-21] MEDS: traMADol 50 MG TAB PO PRN ×2 (08:46→16:06)
[2019-01-21] MEDS: AMIODARONE 200 MG TAB PO SCH (09:56)
[2019-01-21] MEDS: PANTOPRAZOLE 40 MG/10 ML VIAL IVP SCH ×2 (09:56→20:18)
[2019-01-21] MEDS: PIPERACILLIN-TAZOBACTAM 3.375 GM in SODIUM CHLORIDE 0.9% 100 ML IVPB SCH ×3 (09:56→23:10)
--- NOTE | 2019-01-21 11:49 | P.PN ---
Progress Note - Text Progress Note Date: 01/21/19 The patient is resting comfortably in her bed. She shows no evidence of any further upper GI bleed. Her EGD performed yesterday showed some minimal inflammatory changes around the PEG tube site. On exam her vital signs are stable. Her abdomen soft. Patient is stable for discharge from a surgical standpoint.
[2019-01-21] MEDS ORDERED: Potassium Replacement Protocol 1 EACH MISC MISCELLANE PRN (12:23)
[2019-01-21] MEDS: POTASSIUM CHLORIDE ER 20 MEQ TAB.ER PO SCH ×2 (13:48→16:02)
--- NOTE | 2019-01-21 15:50 | P.PN ---
Subjective Progress Note Date: 01/21/19 This is a 63-year-old female, a patient of Dr. Walton. She has an extensive past medical history. Her past medical history includes COPD, cardiac arrest status post trach and PEG in August 2018. She has had reversal of the trach tube and [facility] at [facility] [place]. 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 She also has history of CHF, coronary disease with previous cardiac stents and bipolar. He was discharged on 01/03/2019 from [facility] at that time was treated for pneumonia with sepsis and was discharged to [facility] for rehab. Patient had been to see Dr. Walton on Wednesday and at that time urine was collected. Patient was notified yesterday that the urine culture had resistant bacteria and was told to go to ER for antibiotics. Urine culture did grow E. coli ESBL. He is currently on Rocephin and IV Zosyn. Infectious disease has been consulted. Repeat urinalysis and culture have been ordered. Patient has been asymptomatic. She denies any fever, chills, sweats. Denies any urinary symptoms. She has been having a productive cough with yellowish sputum. Chest x-ray has been ordered and sputum culture collected. She sees Dr. Mathew in the office. She will be placed on consult. Infectious disease on consult regarding her UTI. Patient was scheduled for PEG tubes removed today in the outpatient setting. Therefore Eliquis has been on hold. Dr. Bennett was in the room today and removed PEG tube. There was blood present in the PEG tube and therefore he is recommending an EGD be completed. This be done tomorrow. Patient's protonix will be switched to IV twice a day Eliquis will remain on hold. She denies any vomiting or nausea. Denies any blood in the stools. Denies any chest pain or shortness breath. 01/20/2019 patient sitting up at the side of bed. Family at bedside. All questions answered. They are requesting a cardiology consult. Patient had an appointment with Dr. Orozco either today or tomorrow. They would like to see him or one of his associates in the hospital. Apparently medications were adjusted in the outpatient setting on a previous follow-up. Patient's family reports Plavix been discontinued as well as Norvasc. Patient's blood pressures are stable. She is scheduled for an EGD today. Repeat urine culture growing gram- negative bacilli. She is currently on IV Zosyn and doxycycline. Chest x-ray showing moderate prominence of pulmonary vascular markings correlate for CHF. Patient denies any chest pain or shortness of breath. No coughing at this time. Lung sounds have shown improvement. Was seen by pulmonary service and they felt that there is no evidence of pneumonia. No evidence of pneumonia present on chest x-ray. Patient denies any burning with urination. On 01/21/2019 patient was seen and examined on the medical floor she is feeling better there is no fever or chills no headache or dizziness no chest pain no shortness of breath no cough no nausea or vomiting no abdominal pain no diarrhea and no urinary symptoms Objective - Vital Signs Vital signs: Vital Signs Temp 98.1 F 01/21/19 07:00 Pulse 64 01/21/19 11:39 Resp 17 01/21/19 07:00 BP 106/71 01/21/19 07:00 Pulse Ox 98 01/21/19 07:00 Intake & Output 01/20/19 01/21/19 01/21/19 18:59 06:59 18:59 Intake Total 10 480 Balance 10 480 Intake: IV 10 Oral 480 Other: Voiding Method Toilet Toilet Toilet Diaper Diaper Diaper # Voids 4 1 - Exam Head normocephalic and atraumatic Neck supple no JVD no goiter Lungs clear to auscultation bilaterally no wheezing or crackles Heart regular rate and rhythm S1-S2, no rub or gallop Abdomen is soft nontender nondistended positive bowel sounds no hepatosplenomegaly Extremities no edema no cyanosis or clubbing Neuro alert and orientated to 3 no gross focal neurological deficit - Labs CBC & Chem 7: 01/21/19 06:16 01/21/19 06:16 Labs: Abnormal Lab Results - Last 24 Hours (Table) 01/21/19 01/21/19 Range/Units 06:16 06:16 RBC 2.99 L (3.80-5.40) m/uL Hgb 9.4 L (11.4-16.0) gm/dL Hct 28.6 L (34.0-46.0) % Potassium 3.4 L (3.5-5.1) mmol/L BUN 20 H (7-17) mg/dL Creatinine 1.43 H (0.52-1.04) mg/dL Alkaline Phosphatase 150 H (38-126) U/L Albumin 3.2 L (3.5-5.0) g/dL Microbiology - Last 24 Hours (Table) 01/18/19 19:25 Urine Culture - Final Urine,Voided Escherichia coli 01/18/19 19:05 Blood Culture - Preliminary Blood No Growth after 48 hours Assessment and Plan Plan: 1. UTI with urine culture growing ESBL E. coli in the outpatient setting. Patient currently on IV Zosyn. Infectious disease is following. They're anticipating placement of midline for discharge and IV Invanz 1 g daily for UTI. Repeat urine culture growing gram-negative bacilli 2. GI bleeding and gastrostomy tube with anemia. Patient scheduled for EGD today. aspirin and Eliquis will remain on hold. Continue IV Protonix 40 mg twice a day. 3. Chronic cough. No evidence of pneumonia on chest x-ray. Was seen evaluated by pulmonary service. Per infectious disease he is concerns of possible tracheitis they have added doxycycline 4. History of cardiac arrest in August 2018 requiring trach and PEG. Patient has had reversal trach. PEG tube removed during this admission in August 5. Chronic kidney disease stage III, has received hemodialysis on a temporary basis on previous admission 6. Paroxysmal atrial fibrillation: Anticoagulated with Eliquis which is currently on hold. Continue the amiodarone and metoprolol for rate control. 7. Essential hypertension: Blood pressures are stable. Continue with current medications 8. Hypothyroidism continue Synthroid 9. Hyperlipidemia continue Lipitor 10. History of COPD: Stable. Continue DuoNeb updrafts 4 times a day and as needed 11. History of bipolar continue her Seroquel and Zoloft 12. Iron deficiency anemia: Hemoglobin 9.7. Total iron low at 35. Start ferrous sulfate 325 mg twice a day 13. Recent hospitalization for hospital-acquired pneumonia and mechanical fall with left-sided rib fracture. Patient had completed Augmentin. 14. Fluid overload noted on chest x-ray. Hep-Lock IV fluids. Check BNP level. GI prophylaxis Protonix and DVT prophylaxis SCDs until we can resume patient's Eliquis Awaiting insurance approval of IV antibiotic as outpatient to be able to discharge patient
[2019-01-21] MEDS: ATORVASTATIN 20 MG TAB PO SCH (20:17)
[2019-01-21] MEDS: ZOLPIDEM 5 MG TAB PO PRN (20:17)
[2019-01-21] MEDS: FOLIC ACID 1 MG TAB PO SCH (20:17)
[2019-01-21] MEDS: QUEtiapine 100 MG TAB PO SCH (20:17)
[2019-01-21] MEDS: MONTELUKAST 10 MG TAB PO SCH (20:17)
[2019-01-21] MEDS: ALPRAZolam 0.5 MG TAB PO PRN (20:17)
[2019-01-22] MEDS: METOPROLOL TARTRATE 50 MG TAB PO SCH ×3 (06:29→21:28)
[2019-01-22] MEDS: LEVOTHYROXINE 75 MCG TAB PO SCH (06:29)
[2019-01-22 07:24] LABS: Basophils % (A) 1 %; Eosinophils # (A) 0.4 k/uL (0-0.7); Eosinophils % (A) 6 %; HCT 28.9 % (34.0-46.0); HGB 9.4 gm/dL (11.4-16.0); Lymphocytes # (A) 1.9 k/uL (1.0-4.8); Lymphocytes % (A) 25 %; MCH 30.9 pg (25.0-35.0); MCHC 32.5 g/dL (31.0-37.0); Mean Platelet Volume 6.9; Monocytes # (A) 0.5 k/uL (0-1.0); Monocytes % (A) 6 %; Neutrophils # (A) 4.5 k/uL (1.3-7.7); Neutrophils % (A) 61 %; Platelet Count 245 k/uL (150-450); RBC 3.04 m/uL (3.80-5.40); RDW 15.2 % (11.5-15.5); WBC 7.4 k/uL (3.8-10.6)
[2019-01-22 07:41] LABS: Albumin 3.1 g/dL (3.5-5.0); Calcium 8.6 mg/dL (8.4-10.2); Potassium 3.4 mmol/L (3.5-5.1); Total Bilirubin 0.5 mg/dL (0.2-1.3); Total Protein 6.8 g/dL (6.3-8.2)
[2019-01-22] MEDS: IPRATROPIUM-ALBUTEROL 3 ML NEB INHALATION SCH ×4 (08:17→20:52)
[2019-01-22] MEDS: traMADol 50 MG TAB PO PRN ×2 (09:47→21:27)
[2019-01-22] MEDS: PANTOPRAZOLE 40 MG/10 ML VIAL IVP SCH ×2 (09:58→21:28)
[2019-01-22] MEDS: APIXABAN 5 MG TAB PO SCH ×2 (09:59→21:27)
[2019-01-22] MEDS: ASPIRIN 81 MG PO SCH (09:59)
[2019-01-22] MEDS: DOXYCYCLINE 100 MG CAP PO SCH ×2 (09:59→21:28)
[2019-01-22] MEDS: SERTRALINE 100 MG TAB PO SCH (09:59)
[2019-01-22] MEDS: PIPERACILLIN-TAZOBACTAM 3.375 GM in SODIUM CHLORIDE 0.9% 100 ML IVPB SCH ×2 (09:59→16:52)
[2019-01-22] MEDS: AMIODARONE 200 MG TAB PO SCH (09:59)
[2019-01-22] MEDS: FERROUS SULFATE 325 MG TAB PO SCH ×2 (09:59→21:27)
[2019-01-22] MEDS: FUROSEMIDE 10 MG TAB PO SCH ×2 (10:13→21:28)
[2019-01-22] MEDS: ALPRAZolam 0.5 MG TAB PO PRN ×2 (10:14→21:27)
[2019-01-22] MEDS: POTASSIUM CHLORIDE ER 20 MEQ TAB.ER PO SCH ×5 (12:07→19:18)
[2019-01-22] MEDS ORDERED: Potassium Replacement Protocol 1 EACH MISC MISCELLANE PRN (13:04)
--- NOTE | 2019-01-22 13:05 | P.PN ---
Subjective Progress Note Date: 01/22/19 This is a 63-year-old female, a patient of Dr. Walton. She has an extensive past medical history. Her past medical history includes COPD, cardiac arrest status post trach and PEG in August 2018. She has had reversal of the trach tube and [facility] at [facility] [place]. 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 She also has history of CHF, coronary disease with previous cardiac stents and bipolar. He was discharged on 01/03/2019 from [facility] at that time was treated for pneumonia with sepsis and was discharged to [facility] for rehab. Patient had been to see Dr. Walton on Wednesday and at that time urine was collected. Patient was notified yesterday that the urine culture had resistant bacteria and was told to go to ER for antibiotics. Urine culture did grow E. coli ESBL. He is currently on Rocephin and IV Zosyn. Infectious disease has been consulted. Repeat urinalysis and culture have been ordered. Patient has been asymptomatic. She denies any fever, chills, sweats. Denies any urinary symptoms. She has been having a productive cough with yellowish sputum. Chest x-ray has been ordered and sputum culture collected. She sees Dr. Mathew in the office. She will be placed on consult. Infectious disease on consult regarding her UTI. Patient was scheduled for PEG tubes removed today in the outpatient setting. Therefore Eliquis has been on hold. Dr. Bennett was in the room today and removed PEG tube. There was blood present in the PEG tube and therefore he is recommending an EGD be completed. This be done tomorrow. Patient's protonix will be switched to IV twice a day Eliquis will remain on hold. She denies any vomiting or nausea. Denies any blood in the stools. Denies any chest pain or shortness breath. 01/20/2019 patient sitting up at the side of bed. Family at bedside. All questions answered. They are requesting a cardiology consult. Patient had an appointment with Dr. Orozco either today or tomorrow. They would like to see him or one of his associates in the hospital. Apparently medications were adjusted in the outpatient setting on a previous follow-up. Patient's family reports Plavix been discontinued as well as Norvasc. Patient's blood pressures are stable. She is scheduled for an EGD today. Repeat urine culture growing gram- negative bacilli. She is currently on IV Zosyn and doxycycline. Chest x-ray showing moderate prominence of pulmonary vascular markings correlate for CHF. Patient denies any chest pain or shortness of breath. No coughing at this time. Lung sounds have shown improvement. Was seen by pulmonary service and they felt that there is no evidence of pneumonia. No evidence of pneumonia present on chest x-ray. Patient denies any burning with urination. On 01/21/2019 patient was seen and examined on the medical floor she is feeling better there is no fever or chills no headache or dizziness no chest pain no shortness of breath no cough no nausea or vomiting no abdominal pain no diarrhea and no urinary symptoms On 01/22/2019 patient is currently resting comfortably in bed. at bedside. Per patient insurance will not cover IV antibiotic at home. Patient denies chest pain or shortness of breath. Patient denies nausea vomiting or diarrhea. Patient denies any urinary burning or frequency Objective - Vital Signs Vital signs: Vital Signs Temp 98.1 F 01/22/19 09:50 Pulse 60 01/22/19 12:49 Resp 16 01/22/19 09:50 BP 127/76 01/22/19 09:50 Pulse Ox 96 01/22/19 09:50 Intake & Output 01/21/19 01/22/19 01/22/19 18:59 06:59 18:59 Other: Voiding Method Toilet Toilet Toilet Diaper Diaper Diaper # Voids 1 2 - Exam Head normocephalic and atraumatic Neck supple no JVD no goiter Lungs clear to auscultation bilaterally no wheezing or crackles Heart regular rate and rhythm S1-S2, no rub or gallop Abdomen is soft nontender nondistended positive bowel sounds no hepatosplenomegaly Extremities no edema no cyanosis or clubbing Neuro alert and orientated to 3 no gross focal neurological deficit - Labs CBC & Chem 7: 01/22/19 06:36 01/22/19 06:36 Labs: Abnormal Lab Results - Last 24 Hours (Table) 01/22/19 01/22/19 Range/Units 06:36 06:36 RBC 3.04 L (3.80-5.40) m/uL Hgb 9.4 L (11.4-16.0) gm/dL Hct 28.9 L (34.0-46.0) % Potassium 3.4 L (3.5-5.1) mmol/L Chloride 110 H (98-107) mmol/L Creatinine 1.45 H (0.52-1.04) mg/dL Alkaline Phosphatase 145 H (38-126) U/L Albumin 3.1 L (3.5-5.0) g/dL Microbiology - Last 24 Hours (Table) 01/19/19 20:20 Gram Stain - Final Sputum Sputum Culture - Final 01/18/19 19:05 Blood Culture - Preliminary Blood No Growth after 72 hours Assessment and Plan Assessment: 1. UTI with urine culture growing ESBL E. coli in the outpatient setting. Patient currently on IV Zosyn. Infectious disease is following. They're anticipating placement of midline for discharge and IV Invanz 1 g daily for UTI. Repeat urine culture growing gram-negative bacilli 2. GI bleeding and gastrostomy tube with anemia. Patient scheduled for EGD today. aspirin and Eliquis will remain on hold. Continue IV Protonix 40 mg twice a day. 3. Chronic cough. No evidence of pneumonia on chest x-ray. Was seen evaluated by pulmonary service. Per infectious disease he is concerns of possible tracheitis they have added doxycycline 4. History of cardiac arrest in August 2018 requiring trach and PEG. Patient has had reversal trach. PEG tube removed during this admission in August 5. Chronic kidney disease stage III, has received hemodialysis on a temporary basis on previous admission 6. Paroxysmal atrial fibrillation: Continue the amiodarone and metoprolol for rate control. Eliquis resumed 7. Essential hypertension: Blood pressures are stable. Continue with current medications 8. Hypothyroidism continue Synthroid 9. Hyperlipidemia continue Lipitor 10. History of COPD: Stable. Continue DuoNeb updrafts 4 times a day and as needed 11. History of bipolar continue her Seroquel and Zoloft 12. Iron deficiency anemia: Hemoglobin 9.7. Total iron low at 35. Start ferrous sulfate 325 mg twice a day 13. Recent hospitalization for hospital-acquired pneumonia and mechanical fall with left-sided rib fracture. Patient had completed Augmentin. 14. Fluid overload noted on chest x-ray. Hep-Lock IV fluids. Check BNP level. 15. Hypokalemia. Potassium replacement protocol GI prophylaxis Protonix and DVT prophylaxis Eliquis Awaiting insurance approval of IV antibiotic as outpatient to be able to discharge patient ID recommending Invanz for antibiotic upon discharge I performed an examination of the patient and discussed their management with the Nurse Practitioner. I have reviewed the Nurse Practitioner's notes and agree with the documented findings and plan of care
[2019-01-22] MEDS: HYDROmorphone 0.5 MG/0.5 ML SYRINGE IVP PRN (14:45)
[2019-01-22] MEDS: MONTELUKAST 10 MG TAB PO SCH (21:27)
[2019-01-22] MEDS: ATORVASTATIN 20 MG TAB PO SCH (21:27)
[2019-01-22] MEDS: FOLIC ACID 1 MG TAB PO SCH (21:27)
[2019-01-22] MEDS: QUEtiapine 100 MG TAB PO SCH (21:28)
[2019-01-22] MEDS: ZOLPIDEM 5 MG TAB PO PRN (21:38)
[2019-01-23] MEDS: PIPERACILLIN-TAZOBACTAM 3.375 GM in SODIUM CHLORIDE 0.9% 100 ML IVPB SCH ×2 (00:19→08:14)
[2019-01-23] MEDS: HYDROmorphone 0.5 MG/0.5 ML SYRINGE IVP PRN ×2 (00:19→03:34)
[2019-01-23] MEDS: LEVOTHYROXINE 75 MCG TAB PO SCH (06:27)
[2019-01-23] MEDS: METOPROLOL TARTRATE 50 MG TAB PO SCH (06:27)
[2019-01-23 07:26] VITALS: BP 121/76; RESP 17; TEMP 97.1
[2019-01-23] MEDS: IPRATROPIUM-ALBUTEROL 3 ML NEB INHALATION SCH ×2 (08:07→11:08)
[2019-01-23] MEDS: FUROSEMIDE 10 MG TAB PO SCH (08:14)
[2019-01-23] MEDS: SERTRALINE 100 MG TAB PO SCH (08:15)
[2019-01-23] MEDS: DOXYCYCLINE 100 MG CAP PO SCH (08:15)
[2019-01-23] MEDS: APIXABAN 5 MG TAB PO SCH (08:15)
[2019-01-23] MEDS: FERROUS SULFATE 325 MG TAB PO SCH (08:15)
[2019-01-23] MEDS: ASPIRIN 81 MG PO SCH (08:15)
[2019-01-23] MEDS: AMIODARONE 200 MG TAB PO SCH (08:15)
[2019-01-23] MEDS: PANTOPRAZOLE 40 MG/10 ML VIAL IVP SCH (08:18)
[2019-01-23 08:31] LABS: Albumin 3.3 g/dL (3.5-5.0); Calcium 8.9 mg/dL (8.4-10.2); Potassium 3.8 mmol/L (3.5-5.1); Total Bilirubin 0.5 mg/dL (0.2-1.3); Total Protein 7.2 g/dL (6.3-8.2)
[2019-01-23 08:34] LABS: Basophils # (A) 0.1 k/uL (0-0.2); Basophils % (A) 1 %; Eosinophils # (A) 0.6 k/uL (0-0.7); Eosinophils % (A) 7 %; HCT 31.6 % (34.0-46.0); HGB 10.1 gm/dL (11.4-16.0); Hypochromasia Slight; Lymphocytes # (A) 2.2 k/uL (1.0-4.8); Lymphocytes % (A) 26 %; MCHC 32.1 g/dL (31.0-37.0); MCV 96.7 fL (80.0-100.0); Mean Platelet Volume 6.3; Monocytes # (A) 0.4 k/uL (0-1.0); Monocytes % (A) 5 %; Neutrophils # (A) 4.9 k/uL (1.3-7.7); Neutrophils % (A) 60 %; Platelet Count 241 k/uL (150-450); RBC 3.27 m/uL (3.80-5.40); WBC 8.3 k/uL (3.8-10.6)
--- NOTE | 2019-01-23 10:50 | P.DS ---
Providers Date of admission: 01/19/19 14:08 Expected date of discharge: 01/23/19 Attending physician: Flex Vaz Consults: 01/18/19 20:21 Consult Physician Routine Consulting Provider: Mele Turner Consult Reason/Comments: UTI, resistance Do you want consulting provider notified?: Yes 01/19/19 10:01 Consult Physician Routine Consulting Provider: Davon Ramirez Consult Reason/Comments: removal peg Do you want consulting provider notified?: Already Contacted 01/19/19 10:41 Consult Physician Routine Consulting Provider: Santiago Briseno Consult Reason/Comments: cough Do you want consulting provider notified?: Yes 01/20/19 09:47 Consult Physician Routine Consulting Provider: Pola Stockton Consult Reason/Comments: knows patient Do you want consulting provider notified?: Yes Primary care physician: Lia Middleton Hospital Course: Discharge diagnosis 1. UTI with urine culture growing ESBL E. coli in the outpatient setting. And repeat urine culture growing ESBL E. coli. Patient seen by infectious disease. They're recommending Invanz 1 g daily via midline for 14 days. Patient has midline in place. IV antibiotics have been arranged at home. 2. Acute upper GI bleeding due to PEG tube site trauma. Patient had EGD completed with Dr. Bennett and he reported no blood in stomach. PEG tube was removed during this admission. 3. Chronic cough. No evidence of pneumonia on chest x-ray. Was seen evaluated by pulmonary service. Per infectious disease he is concerns of possible tracheitis treated with doxycycline during this admission. 4. History of cardiac arrest in August 2018 requiring trach and PEG. Patient has had reversal trach. PEG tube removed during this admission in August 5. Chronic kidney disease stage III, has received hemodialysis on a temporary basis on previous admission 6. Paroxysmal atrial fibrillation: Continue the amiodarone and metoprolol for rate control. Eliquis for anticoagulation 7. Essential hypertension: Blood pressures are stable. Continue with current medications 8. Hypothyroidism continue Synthroid 9. Hyperlipidemia continue Lipitor 10. History of COPD: Stable. Continue DuoNeb updrafts 4 times a day and as needed 11. History of bipolar continue her Seroquel and Zoloft 12. Iron deficiency anemia: Total iron low at 35. Start ferrous sulfate 325 mg twice a day. Hemoglobin 10.1 at discharge 13. Recent hospitalization for hospital-acquired pneumonia and mechanical fall with left-sided rib fracture. Patient had completed Augmentin. 14. Fluid overload noted on chest x-ray. Hep-Lock IV fluids. Improved 15. Hypokalemia. Resolved with potassium supplement 16. Elevated AST of 50. Likely due to medication induced hepatitis. We'll hold Lipitor at discharge. Recommend repeating LFTs in 1 week. And then PCP can decide when to resume the Lipitor Hospital course This is a 63-year-old female, a patient of Dr. Walton. She has an extensive past medical history. Her past medical history includes COPD, cardiac arrest status post trach and PEG in August 2018. She has had reversal of the trach tube and had been at [facility] in [place]. 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 She also has history of CHF, coronary disease with previous cardiac stents and bipolar. He was discharged on 01/03/2019 from [facility] at that time was treated for pneumonia with sepsis and was discharged to [facility] for rehab. Patient had been to see Dr. Walton on Wednesday and at that time urine was collected. Patient was notified yesterday that the urine culture had resistant bacteria and was told to go to ER for antibiotics. Urine culture did grow E. coli ESBL. He is currently on Rocephin and IV Zosyn. Infectious disease has been consulted. Repeat urinalysis and culture have been ordered. Patient has been asymptomatic. She denies any fever, chills, sweats. Denies any urinary symptoms. She has been having a productive cough with yellowish sputum. Chest x-ray has been ordered and sputum culture collected. She sees Dr. Mathew in the office. She will be placed on consult. Infectious disease on consult regarding her UTI. Patient was scheduled for PEG tubes removed today in the outpatient setting. Therefore Yogesh has been on hold. Dr. Bennett was in the room today and removed PEG tube. There was blood present in the PEG tube and therefore he is recommending an EGD be completed. This be done tomorrow. Patient's protonix will be switched to IV twice a day Eliquis will remain on hold. She denies any vomiting or nausea. Denies any blood in the stools. Denies any chest pain or shortness breath. 01/20/2019 patient sitting up at the side of bed. Family at bedside. All questions answered. They are requesting a cardiology consult. Patient had an appointment with Dr. Orozco either today or tomorrow. They would like to see him or one of his associates in the hospital. Apparently medications were adjusted in the outpatient setting on a previous follow-up. Patient's family reports Plavix been discontinued as well as Norvasc. Patient's blood pressures are stable. She is scheduled for an EGD today. Repeat urine culture growing gram- negative bacilli. She is currently on IV Zosyn and doxycycline. Chest x-ray sh owing moderate prominence of pulmonary vascular markings correlate for CHF. Patient denies any chest pain or shortness of breath. No coughing at this time. Lung sounds have shown improvement. Was seen by pulmonary service and they felt that there is no evidence of pneumonia. No evidence of pneumonia present on chest x-ray. Patient denies any burning with urination. On 01/21/2019 patient was seen and examined on the medical floor she is feeling better there is no fever or chills no headache or dizziness no chest pain no shortness of breath no cough no nausea or vomiting no abdominal pain no diarrhea and no urinary symptoms On 01/22/2019 patient is currently resting comfortably in bed. at bedside. Per patient insurance will not cover IV antibiotic at home. Patient denies chest pain or shortness of breath. Patient denies nausea vomiting or diarrhea. Patient denies any urinary burning or frequency 01/23/2019 patient is medically stable for discharge. Her home antibiotics have been arranged via a different and home infusion company. power plant manager is setting this up. Patient will be discharged with Invanz 1 g daily for 14 days. Patient's symptoms have improved. Her repeat urine culture did grow E. coli ESBL. She's been cleared by all consulting physicians during this admission. She'll follow-up with Dr. Walton in 1 week, Dr. Orozco in 2 weeks, and Dr. Saray barker in 1 week Patient is medical stable for discharge. Please refer to chart for any further details. I performed an examination of the patient and discussed their management with the physician Mixing Technician. I have reviewed the Physician Mixing Technician's notes and agree with the documented findings and plan of care Patient Condition at Discharge: Stable Plan - Discharge Summary Discharge Rx Participant: Yes New Discharge Prescriptions: New Ertapenem [INVanz] 1 gm IVPB Q24H #14 bag Ferrous Sulfate [Iron (65 MG Elemental)] 325 mg PO BID #60 tab Continue Nitroglycerin Sl Tabs [Nitrostat] 0.4 mg SUBLINGUAL Q5M PRN PRN Reason: Chest Pain Metoprolol Tartrate [Lopressor] 50 mg PO Q8H #0 Omeprazole 20 mg PO HS #0 QUEtiapine [SEROquel] 100 mg PO HS #2 tab Montelukast [Singulair] 10 mg PO HS@2000 #0 Levothyroxine Sodium [Synthroid] 75 mcg PO DAILY@0630 #0 tab Torsemide [Demadex] 10 mg PO BID #0 Amiodarone [Cordarone] 200 mg PO QAM Apixaban [Eliquis] 5 mg PO BID Aspirin 81 mg PO DAILY Folic Acid 1 mg PO HS Sertraline HCl [Zoloft] 100 mg PO QAM traMADol HCl [Ultram] 50 mg PO BID PRN #4 tab PRN Reason: Mild To Moderate Pain ALPRAZolam [Xanax] 0.5 mg PO Q6H PRN #6 tablet PRN Reason: Anxiety Discontinued Atorvastatin [Lipitor] 20 mg PO HS@2000 #0 Discharge Medication List Nitroglycerin Sl Tabs [Nitrostat] 0.4 mg SUBLINGUAL Q5M PRN 12/29/13 [History] Levothyroxine Sodium [Synthroid] 75 mcg PO DAILY@0630 #0 tab 12/06/18 [Rx] Metoprolol Tartrate [Lopressor] 50 mg PO Q8H #0 12/06/18 [Rx] Montelukast [Singulair] 10 mg PO HS@2000 #0 12/06/18 [Rx] Omeprazole 20 mg PO HS #0 12/06/18 [Rx] QUEtiapine [SEROquel] 100 mg PO HS #2 tab 12/06/18 [Rx] Torsemide [Demadex] 10 mg PO BID #0 12/06/18 [Rx] Amiodarone [Cordarone] 200 mg PO QAM 12/22/18 [History] Apixaban [Eliquis] 5 mg PO BID 12/22/18 [History] Aspirin 81 mg PO DAILY 12/22/18 [History] Folic Acid 1 mg PO HS 12/22/18 [History] Sertraline HCl [Zoloft] 100 mg PO QAM 12/22/18 [History] ALPRAZolam [Xanax] 0.5 mg PO Q6H PRN #6 tablet 01/03/19 [Rx] traMADol HCl [Ultram] 50 mg PO BID PRN #4 tab 01/03/19 [Rx] Ertapenem [INVanz] 1 gm IVPB Q24H #14 bag 01/20/19 [Rx] Ferrous Sulfate [Iron (65 MG Elemental)] 325 mg PO BID #60 tab 01/23/19 [Rx] Follow up Appointment(s)/Referral(s): Pola Stockton MD [STAFF PHYSICIAN] - 2 Weeks [facility], [NON-STAFF] - Davon Ramirez MD [STAFF PHYSICIAN] - 1 Week Lia Middleton MD [Primary Care Provider] - 1 Week Ambulatory/Diagnostic Orders: Basic Metabolic Panel [LAB.AMB] Location: None Selected Complete Blood Count w/diff [LAB.AMB] Location: None Selected Complete Blood Count w/diff [LAB.AMB] Time Frame: 1 Week, Location: None Selected Comprehensive Metabolic Panel [LAB.AMB] Time Frame: 1 Week, Location: None Selected Activity/Diet/Wound Care/Special Instructions: Diet: regular Activity: as tolerated
[2019-01-23 11:20] VITALS: PULSE 69
[2019-01-23] MEDS ORDERED: ERTAPENEM 1 GM in SODIUM CHLORIDE 0.9% 50 ML IVPB STA (11:37)
--- NOTE | 2019-02-21 16:49 | P.OP ---
Date of Procedure: 01/19/19 Preoperative Diagnosis: Malnutrition Postoperative Diagnosis: Malnutrition Procedure(s) Performed: Removal of PEG tube Anesthesia: none Surgeon: Davon Ramirez Pathology: none sent Condition: stable Disposition: PACU Description of Procedure: The patient's PEG tube was grasped firmly. The PEG tube had traction placed on the PEG tube was removed from the abdomen. Sterile dressings applied. Patient top she will well.
== END 2019-01-23 12:50 | disposition home health service (06) | DRG 690 ==
LOC: SUPCPDRO 17:58 → EC 17:58 → 4SSUR 20:16 → OBSVTOIN 01-19 14:08
PROVIDERS: ADMIT Internal Medicine; ATTEND Internal Medicine
PROC: 0DP6XUZ Removal of Feeding Device from Stomach, External Approach (ICD-10-PCS; principal; 2019-01-19)
DX: N39.0 Urinary tract infection, site not specified (principal); I13.0 Hypertensive heart and chronic kidney disease with heart failure and stage 1 through stage 4 chronic kidney disease, or unspecified chronic kidney disease; I50.32 Chronic diastolic (congestive) heart failure; N17.9 Acute kidney failure, unspecified; N18.4 Chronic kidney disease, stage 4 (severe); Z16.12 Extended spectrum beta lactamase (ESBL) resistance; Z16.22 Resistance to vancomycin related antibiotics; E46 Unspecified protein-calorie malnutrition; B96.20 Unspecified Escherichia coli [E. coli] as the cause of diseases classified elsewhere; D63.8 Anemia in other chronic diseases classified elsewhere; E03.9 Hypothyroidism, unspecified; E78.5 Hyperlipidemia, unspecified; F31.9 Bipolar disorder, unspecified; F41.9 Anxiety disorder, unspecified; I25.10 Atherosclerotic heart disease of native coronary artery without angina pectoris; I27.20 Pulmonary hypertension, unspecified; I48.0 Paroxysmal atrial fibrillation; J44.9 Chronic obstructive pulmonary disease, unspecified; K21.9 Gastro-esophageal reflux disease without esophagitis; K94.21 Gastrostomy hemorrhage; Z79.01 Long term (current) use of anticoagulants; Z79.82 Long term (current) use of aspirin; Z79.890 Hormone replacement therapy; Z79.899 Other long term (current) drug therapy; Z86.14 Personal history of Methicillin resistant Staphylococcus aureus infection; Z86.718 Personal history of other venous thrombosis and embolism; Z86.73 Personal history of transient ischemic attack (TIA), and cerebral infarction without residual deficits; Z86.74 Personal history of sudden cardiac arrest; Z87.01 Personal history of pneumonia (recurrent); Z87.891 Personal history of nicotine dependence; Z90.710 Acquired absence of both cervix and uterus; Z95.5 Presence of coronary angioplasty implant and graft; Z90.49 Acquired absence of other specified parts of digestive tract; Z98.42 Cataract extraction status, left eye; Z98.41 Cataract extraction status, right eye; Z88.1 Allergy status to other antibiotic agents; Z88.2 Allergy status to sulfonamides; Z88.8 Allergy status to other drugs, medicaments and biological substances; K71.6 Toxic liver disease with hepatitis, not elsewhere classified; T46.6X5A Adverse effect of antihyperlipidemic and antiarteriosclerotic drugs, initial encounter; E87.70 Fluid overload, unspecified; E87.6 Hypokalemia; Z87.828 Personal history of other (healed) physical injury and trauma; D50.9 Iron deficiency anemia, unspecified; K75.89 Other specified inflammatory liver diseases
CPT/HCPCS: 36410; 36415; 43235; 71046; 76937; 80053; 81001; 82728; 83540; 83550; 83605; 83880; 85025; 87040; 87070; 87077; 87086; 87186; 87205; 94640; 96374; 99284

== ENCOUNTER 2019-01-28 17:45 | Inpatient (IN) | payer OTHER ==
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
--- NOTE | 2019-01-28 19:09 | XR ---
EXAMINATION TYPE: XR chest 2V DATE OF EXAM: 01/28/2019 COMPARISON: 01/19/2019 INDICATION: Cough, pain TECHNIQUE: Frontal and lateral views of the chest are obtained. FINDINGS: The heart size is prominent. The pulmonary vasculature is normal. The lungs are clear. IMPRESSION: 1. Moderate cardiomegaly, stable.
--- NOTE | 2019-01-28 19:11 | CT ---
EXAMINATION TYPE: CT brain jorgeine wo con DATE OF EXAM: 01/28/2019 COMPARISON: CT brain 12/30/2018 HISTORY: Fall with facial injury CT DLP: 985.8 mGycm, Automated exposure control for dose reduction was used. CONTRAST: Patient injected with 0 mL of Isovue 300. CT of the brain is performed utilizing 3 mm thick sections through the posterior fossa and 3 mm thick sections through the remaining calvarium. Study is performed within 24 hours of arrival to the hospital. No abnormal hyperdensity is present to suggest an acute intracranial hemorrhage. No mass lesion is evident. No acute infarcts are evident. Minimal periventricular white matter hypodensity is present, likely o n the basis of chronic white matter ischemic changes. Ventricles and sulci are appropriate for the patient age. Paranasal sinuses and mastoid air cells within the [id number] are clear. IMPRESSIONS: 1. Minimal chronic appearing periventricular white matter ischemic changes. CT cervical spine. COMPARISON: 12/30/2018 CT of the cervical spine is performed in the axial plane at 2 mm thick sections. Reconstructed image s in the coronal, and sagittal plane are reviewed on the computer. No acute fractures are evident. Vertebral body alignment is normal. Disc heights are preserved. Vertebral body heights are preserved. No spinal canal stenosis is evident. No neural foraminal stenosis is evident. IMPRESSIONS: 1. Normal CT cervical spine.
--- NOTE | 2019-01-28 19:15 | CT ---
EXAMINATION TYPE: CT facial bones wo con DATE OF EXAM: 01/28/2019 COMPARISON: None HISTORY: Fall with facial injury CT DLP: 985.8 mGycm CONTRAST: 0 mL of Isovue 300 The paranasal sinuses are examined in the axial plane at 2 mm thick sections. Reconstructed images i n the coronal plane were obtained. Mild soft tissue swelling is over the right maxilla. Dentures are present. No underlying fracture is evident. Minimal mucosal thickening is within the right maxillary sinus. Nasal bones are intact. Greater wings of sphenoid are intact. Zygomatic arches are normal. Temporoman dibular junctions are normal. The ethmoid air cells are clear. The sphenoid sinuses are clear. The frontal sinuses are clear. The septum is evaluated. There is septal deviation to the left. The ostiomeatal units are patent. Maxillary spine is intact. IMPRESSIONS: 1. No acute posttraumatic osseous changes. 2. There is superficial soft tissue swelling over the right axillary region.
[2019-01-28] MEDS ORDERED: LIDOCAINE 1% INJ 10MG/ML (20 ML MDV) SQ ONE (19:48)
[2019-01-28] MEDS ORDERED: NALOXONE 0.4 MG/ML 1 ML VIAL IV PRN (21:11)
[2019-01-28] MEDS ORDERED: ERTAPENEM 1 GM VIAL IVPB SCH (21:30)
[2019-01-28 21:34] LABS: Basophils # (A) 0.1 k/uL (0-0.2); Basophils % (A) 1 %; Eosinophils # (A) 0.5 k/uL (0-0.7); Eosinophils % (A) 6 %; HCT 33.3 % (34.0-46.0); HGB 10.7 gm/dL (11.4-16.0); Hypochromasia Slight; Lymphocytes % (A) 23 %; MCH 31.1 pg (25.0-35.0); MCV 97.1 fL (80.0-100.0); Mean Platelet Volume 6.2; Monocytes # (A) 0.4 k/uL (0-1.0); Monocytes % (A) 5 %; Neutrophils # (A) 5.4 k/uL (1.3-7.7); Neutrophils % (A) 64 %; Platelet Count 225 k/uL (150-450); RBC 3.43 m/uL (3.80-5.40); RDW 14.6 % (11.5-15.5); WBC 8.4 k/uL (3.8-10.6)
[2019-01-28 21:45] LABS: Albumin 3.3 g/dL (3.5-5.0); Calcium 9.2 mg/dL (8.4-10.2); Potassium 4.2 mmol/L (3.5-5.1); Total Bilirubin 0.2 mg/dL (0.2-1.3); Total Protein 7.1 g/dL (6.3-8.2)
[2019-01-28] MEDS: ALPRAZolam 0.5 MG TAB PO PRN (21:53)
[2019-01-28] MEDS: QUEtiapine 100 MG TAB PO SCH (22:07)
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
[2019-01-28] MEDS: traMADol 50 MG TAB PO PRN (23:31)
[2019-01-28] MEDS: METOPROLOL TARTRATE 50 MG TAB PO SCH (23:34)
[2019-01-28] MEDS: FOLIC ACID 1 MG TAB PO SCH (23:34)
[2019-01-29 00:31] VITALS: BMI 26.2
[2019-01-29] MEDS: METOPROLOL TARTRATE 50 MG TAB PO SCH ×3 (05:42→22:12)
[2019-01-29] MEDS: LEVOTHYROXINE 75 MCG TAB PO SCH (05:42)
[2019-01-29] MEDS: ERTAPENEM 1 GM in SODIUM CHLORIDE 0.9% 50 ML IVPB SCH (07:13)
[2019-01-29] MEDS: FERROUS SULFATE 325 MG TAB PO SCH ×2 (07:14→22:11)
[2019-01-29] MEDS: SERTRALINE 100 MG TAB PO SCH (07:14)
[2019-01-29] MEDS: ASPIRIN 81 MG PO SCH (07:14)
[2019-01-29] MEDS: APIXABAN 5 MG TAB PO SCH ×2 (07:14→22:12)
[2019-01-29] MEDS: TORSEMIDE 20 MG TAB PO SCH ×2 (07:14→15:01)
[2019-01-29] MEDS: AMIODARONE 200 MG TAB PO SCH (07:14)
[2019-01-29] MEDS: ALPRAZolam 0.5 MG TAB PO PRN (08:49)
[2019-01-29] MEDS: traMADol 50 MG TAB PO PRN ×2 (08:49→22:12)
--- NOTE | 2019-01-29 14:06 | P.PN ---
Subjective Progress Note Date: 01/29/19 Patient is a 63-year-old female with a PMH of A. fib, recent ESBL UTI currently on 2 weeks of Invanz 1 g daily, COPD, history of CVA, hyperlipidemia, hypertension, memory impairment, CKD, and hypothyroidism who presented to the ED after a mechanical fall atThe patient reported that she had been having dif ficulty ambulating. She noted that since her recent discharge from the hospital, she had been unable to partake in her daily activities of living and that her ill had been helping her which was very strenuous for the both of them. The patient had undergone an extensive evaluation in the emergency room with a CT head that was unremarkable. She was noted to have a laceration of the upper lip which was sutured. She was seen and evaluated at the bedside on 01/29. She reported continuing to feel weak and unable to ambulate. She denied any additional complaints including chest pain, shortness of breath, nausea, vomiting, fever, or chills. Objective - Vital Signs Vital signs: Vital Signs Temp 97.4 F L 01/29/19 05:13 Pulse 57 L 01/29/19 05:13 Resp 16 01/29/19 07:33 BP 126/69 01/29/19 05:13 Pulse Ox 94 L 01/29/19 05:13 Intake & Output 01/28/19 01/29/19 01/29/19 18:59 06:59 18:59 Intake Total 540 Balance 540 Weight 67.585 kg Intake: Oral 540 Other: Voiding Method Bedpan Incontinent # Voids 3 # Bowel Movements 1 - Exam General: Non-toxic, in no acute distress, appears stated age, normal weight HEENT: NC/AT, anicteric sclerae, moist conjunctiva, no lid-lag, PERRLA Cardiovascular: S1/S2 wnl, no murmurs, rubs, or gallops Lungs: Clear to auscultation, normal respiratory effort, no accessory muscle use Abdominal: Soft, non-tender, non-distended, no guarding, rebound, or rigidity Skin: Warm, dry Extremities: No edema or contractures Psychiatric: Alert and oriented to person, place and time Neuro: CN II-XII grossly intact, Strength 4/5 in all 4 extremities, Speech int act, Sensation to light touch grossly intact throughout - Labs CBC & Chem 7: 01/28/19 21:27 01/28/19 21:27 Labs: Abnormal Lab Results - Last 24 Hours (Table) 01/28/19 01/28/19 Range/Units 21:27 21:27 RBC 3.43 L (3.80-5.40) m/uL Hgb 10.7 L (11.4-16.0) gm/dL Hct 33.3 L (34.0-46.0) % Chloride 108 H (98-107) mmol/L BUN 19 H (7-17) mg/dL Creatinine 1.70 H (0.52-1.04) mg/dL AST 38 H (14-36) U/L Alkaline Phosphatase 178 H (38-126) U/L Albumin 3.3 L (3.5-5.0) g/dL Assessment and Plan Plan: Mechanical fall due to debility at home -PT/OT evaluation pending -Possible subacute rehab placement upon discharge -Fall precautions -Lip laceration sutured in the ED -CT head and neck unremarkable Recent ESBL UTI requiring 2 weeks of Invanz -Continue with Invanz therapy for now to complete course Paroxysmal A. fib -Continue with Eliquis -Continue with amiodarone Hypothyroidism -Continue with home Synthroid dose DVT prophylaxis -Eliquis Discussed with: Patient Anticipated discharge date: 1-[address]: [facility] A total of 30 minutes was spent on the care of this complex patient more than 50% of the time was spent in counseling and care coordination.
[2019-01-29] MEDS ORDERED: METHOCARBAMOL 500 MG TAB PO STA (18:24)
[2019-01-29] MEDS: MONTELUKAST 10 MG TAB PO SCH (19:17)
[2019-01-29] MEDS: QUEtiapine 100 MG TAB PO SCH (22:11)
[2019-01-29] MEDS: FOLIC ACID 1 MG TAB PO SCH (22:11)
[2019-01-29] MEDS: PANTOPRAZOLE 40 MG TABLET PO SCH (22:13)
[2019-01-30] MEDS: METOPROLOL TARTRATE 50 MG TAB PO SCH ×3 (05:48→20:02)
[2019-01-30] MEDS: LEVOTHYROXINE 75 MCG TAB PO SCH (05:52)
[2019-01-30] MEDS: SERTRALINE 100 MG TAB PO SCH (07:03)
[2019-01-30] MEDS: AMIODARONE 200 MG TAB PO SCH (07:03)
[2019-01-30] MEDS: ERTAPENEM 1 GM in SODIUM CHLORIDE 0.9% 50 ML IVPB SCH (07:03)
[2019-01-30] MEDS: ASPIRIN 81 MG PO SCH (07:03)
[2019-01-30] MEDS: FERROUS SULFATE 325 MG TAB PO SCH ×2 (07:03→20:02)
[2019-01-30] MEDS: APIXABAN 5 MG TAB PO SCH ×2 (07:03→20:01)
[2019-01-30] MEDS: TORSEMIDE 20 MG TAB PO SCH ×2 (08:00→17:02)
[2019-01-30] MEDS: ALPRAZolam 0.5 MG TAB PO PRN (08:00)
[2019-01-30 09:19] LABS: Calcium 9.2 mg/dL (8.4-10.2)
--- NOTE | 2019-01-30 13:22 | US ---
EXAMINATION TYPE: US venous doppler duplex LE DATE OF EXAM: 01/30/2019 1:10 PM COMPARISON: NONE CLINICAL HISTORY: Unilateral leg swelling. SIDE PERFORMED: bilateral TECHNIQUE: The lower extremity deep venous system is examined utilizing real time linear array sonog chelsy with graded compression, doppler sonography and color-flow sonography. VESSELS IMAGED: External Iliac Vein (EIV) Common Femoral Vein Deep Femoral Vein Greater Saphenous Vein * Femoral Vein Popliteal Vein Small Saphenous Vein * Proximal Calf Veins (* superficial vessels) Right Leg: Negative for DVT Left Leg: Negative for DVT Unable to reach patient to augment. IMPRESSION: 1. No diagnostic evidence of DVT.
[2019-01-30] MEDS: traMADol 50 MG TAB PO PRN (14:15)
--- NOTE | 2019-01-30 15:42 | P.PN ---
Subjective Progress Note Date: 01/30/19 Patient is a 63-year-old female with a PMH of A. fib, recent ESBL UTI currently on 2 weeks of Invanz 1 g daily, COPD, history of CVA, hyperlipidemia, hypertension, memory impairment, CKD, and hypothyroidism who presented to the ED after a mechanical fall atThe patient reported that she had been having dif ficulty ambulating. She noted that since her recent discharge from the hospital, she had been unable to partake in her daily activities of living and that her ill had been helping her which was very strenuous for the both of them. The patient had undergone an extensive evaluation in the emergency room with a CT head that was unremarkable. She was noted to have a laceration of the upper lip which was sutured. She was seen and evaluated at the bedside on 01/30. She notes feeling better since admission though still feels weak. She denied any additional complaints. Denied chest pain, SOB, nausea, vomiting, fever, or chills. Objective - Vital Signs Vital signs: Vital Signs Temp 98.2 F 01/30/19 13:40 Pulse 60 01/30/19 13:40 Resp 18 01/30/19 13:40 BP 114/70 01/30/19 13:40 Pulse Ox 94 L 01/30/19 13:40 Intake & Output 01/29/19 01/30/19 01/30/19 18:59 06:59 18:59 Intake Total 540 450 Balance 540 450 Intake: Oral 540 450 Other: Voiding Method Incontinent Bedpan # Voids 3 2 3 # Bowel Movements 1 1 - Exam General: Non-toxic, in no acute distress, appears stated age, normal weight HEENT: NC/AT, anicteric sclerae, moist conjunctiva, no lid-lag, PERRLA, upper lip bruising w/ sutures in place Cardiovascular: S1/S2 wnl, no murmurs, rubs, or gallops Lungs: Clear to auscultation, normal respiratory effort, no accessory muscle use Abdominal: Soft, non-tender, non-distended, no guarding, rebound, or rigidity Skin: Warm, dry Extremities: No edema or contractures Psychiatric: Alert and oriented to person, place and time Neuro: CN II-XII grossly intact, Strength 4/5 in all 4 extremities, Speech intact, Sensation to light touch grossly intact throughout - Labs CBC & Chem 7: 10/26/19 21:27 01/30/19 08:32 Labs: Abnormal Lab Results - Last 24 Hours (Table) 01/30/19 Range/Units 08:32 BUN 20 H (7-17) mg/dL Creatinine 1.84 H (0.52-1.04) mg/dL Glucose 122 H (74-99) mg/dL Assessment and Plan Plan: Mechanical fall due to debility at home -PT/OT recommended JACKIE -- patient agreeable, awaiting insurance auth -Fall precautions -Lip laceration sutured in the ED -CT head and neck unremarkable -Surgery consulted for trauma Recent ESBL UTI requiring 2 weeks of Invanz -Continue with Invanz therapy for now to complete course Paroxysmal A. fib -Continue with Eliquis -Continue with amiodarone Hypothyroidism -Continue with home Synthroid dose DVT prophylaxis -Eliquis Discussed with: Patient Anticipated discharge date: 1-[address]: [facility] A total of 30 minutes was spent on the care of this complex patient more than 50% of the time was spent in counseling and care coordination.
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
[2019-01-30] MEDS: QUEtiapine 100 MG TAB PO SCH (20:01)
[2019-01-30] MEDS: PANTOPRAZOLE 40 MG TABLET PO SCH (20:02)
[2019-01-30] MEDS: MONTELUKAST 10 MG TAB PO SCH (20:02)
[2019-01-30] MEDS: FOLIC ACID 1 MG TAB PO SCH (20:02)
[2019-01-31] MEDS: LEVOTHYROXINE 75 MCG TAB PO SCH (05:33)
[2019-01-31] MEDS: METOPROLOL TARTRATE 50 MG TAB PO SCH ×3 (05:33→20:09)
[2019-01-31] MEDS: AMIODARONE 200 MG TAB PO SCH (07:47)
[2019-01-31] MEDS: ASPIRIN 81 MG PO SCH (07:48)
[2019-01-31] MEDS: APIXABAN 5 MG TAB PO SCH ×2 (07:48→20:00)
[2019-01-31] MEDS: SERTRALINE 100 MG TAB PO SCH (07:48)
[2019-01-31] MEDS: traMADol 50 MG TAB PO PRN ×2 (07:48→20:00)
[2019-01-31] MEDS: FERROUS SULFATE 325 MG TAB PO SCH ×2 (07:48→20:00)
[2019-01-31] MEDS: ALPRAZolam 0.5 MG TAB PO PRN (07:48)
[2019-01-31] MEDS: TORSEMIDE 20 MG TAB PO SCH ×2 (07:49→16:38)
[2019-01-31] MEDS: ERTAPENEM 0.5 GM in SODIUM CHLORIDE 0.9% 50 ML IVPB SCH (07:57)
--- NOTE | 2019-01-31 17:36 | P.PN ---
Subjective Progress Note Date: 01/31/19 Patient is a 63-year-old female with a PMH of A. fib, recent ESBL UTI currently on 2 weeks of Invanz 1 g daily, COPD, history of CVA, hyperlipidemia, hypertension, memory impairment, CKD, and hypothyroidism who presented to the ED after a mechanical fall atThe patient reported that she had been having dif ficulty ambulating. She noted that since her recent discharge from the hospital, she had been unable to partake in her daily activities of living and that her ill had been helping her which was very strenuous for the both of them. The patient had undergone an extensive evaluation in the emergency room with a CT head that was unremarkable. She was noted to have a laceration of the upper lip which was sutured. Surgery evaluated the patient and recommended no further interventions for her trauma. She was seen and evaluated at the bedside on 01/31. She was in good spirits and is looking forward to getting better at the rehab facility. She denied any additional complaints. Denied chest pain, SOB, nausea, vomiting, fever, or chills. Objective - Vital Signs Vital signs: Vital Signs Temp 97.8 F 01/31/19 14:00 Pulse 61 01/31/19 14:00 Resp 18 01/31/19 14:00 BP 105/60 01/31/19 14:00 Pulse Ox 97 01/31/19 14:00 Intake & Output 01/30/19 01/31/19 01/31/19 18:59 06:59 18:59 Intake Total 400 540 Balance 400 540 Intake: Oral 400 540 Other: Voiding Method Bedpan Bedpan Bedpan # Voids 3 2 3 # Bowel Movements 2 1 - Exam General: Non-toxic, in no acute distress, appears stated age, normal weight HEENT: NC/AT, anicteric sclerae, moist conjunctiva, no lid-lag, PERRLA, upper lip bruising w/ sutures in place Cardiovascular: S1/S2 wnl, no murmurs, rubs, or gallops Lungs: Clear to auscultation, normal respiratory effort, no accessory muscle use Abdominal: Soft, non-tender, non-distended, no guarding, rebound, or rigidity Skin: Warm, dry Extremities: No edema or contractures Psychiatric: Alert and oriented to person, place and time Neuro: CN II-XII grossly intact, Strength 4/5 in all 4 extremities, Speech intact, Sensation to light touch grossly intact throughout - Labs CBC & Chem 7: 01/28/19 21:27 01/30/19 08:32 Assessment and Plan Plan: Mechanical fall due to debility at home -PT/OT recommended [facility]ACK[facility] -- patient agreeable, awaiting insurance auth -Fall precautions -Lip laceration sutured in the ED -CT head and neck unremarkable -Surgery recs appreciated Recent ESBL UTI requiring 2 weeks of Invanz -Continue with Invanz therapy for now to complete course Paroxysmal A. fib -Continue with Eliquis -Continue with amiodarone Hypothyroidism -Continue with home Synthroid dose DVT prophylaxis -Eliquis Discussed with: Patient Anticipated discharge date: 1-[address]: [facility] A total of 30 minutes was spent on the care of this complex patient more than 50% of the time was spent in counseling and care coordination.
[2019-01-31] MEDS: QUEtiapine 100 MG TAB PO SCH (20:00)
[2019-01-31] MEDS: FOLIC ACID 1 MG TAB PO SCH (20:00)
[2019-01-31] MEDS: PANTOPRAZOLE 40 MG TABLET PO SCH (20:00)
[2019-01-31] MEDS: MONTELUKAST 10 MG TAB PO SCH (20:00)
--- NOTE | 2019-02-01 01:18 | ED ---
Medical Decision Making - Lab Data Result diagrams: 01/28/19 21:27 01/30/19 08:32 Lab Results 01/28/19 01/28/19 01/28/19 Range/Units 21:27 21:27 21:27 WBC 8.4 (3.8-10.6) k/uL RBC 3.43 L (3.80-5.40) m/uL Hgb 10.7 L (11.4-16.0) gm/dL Hct 33.3 L (34.0-46.0) % MCV 97.1 (80.0-100.0) fL MCH 31.1 (25.0-35.0) pg MCHC 32.0 (31.0-37.0) g/dL RDW 14.6 (11.5-15.5) % Plt Count 225 (150-450) k/uL Neutrophils % 64 % Lymphocytes % 23 % Monocytes % 5 % Eosinophils % 6 % Basophils % 1 % Neutrophils # 5.4 (1.3-7.7) k/uL Lymphocytes # 2.0 (1.0-4.8) k/uL Monocytes # 0.4 (0-1.0) k/uL Eosinophils # 0.5 (0-0.7) k/uL Basophils # 0.1 (0-0.2) k/uL Hypochromasia Slight Sodium 139 (137-145) mmol/L Potassium 4.2 (3.5-5.1) mmol/L Chloride 108 H (98-107) mmol/L Carbon Dioxide 22 (22-30) mmol/L Anion Gap 9 mmol/L BUN 19 H (7-17) mg/dL Creatinine 1.70 H (0.52-1.04) mg/dL Est GFR (CKD-EPI)AfAm 36 (>60 ml/min/1.73 sqM) Est GFR (CKD-EPI)NonAf 32 (>60 ml/min/1.73 sqM) Glucose 92 (74-99) mg/dL Calcium 9.2 (8.4-10.2) mg/dL Total Bilirubin 0.2 (0.2-1.3) mg/dL AST 38 H (14-36) U/L ALT 20 (9-52) U/L Alkaline Phosphatase 178 H (38-126) U/L Troponin I <0.012 (0.000-0.034) ng/mL Total Protein 7.1 (6.3-8.2) g/dL Albumin 3.3 L (3.5-5.0) g/dL C. difficile (EIA) Intrp (Negative) 01/29/19 01/30/19 Range/Units 12:30 08:32 WBC (3.8-10.6) k/uL RBC (3.80-5.40) m/uL Hgb (11.4-16.0) gm/dL Hct (34.0-46.0) % MCV (80.0-100.0) fL MCH (25.0-35.0) pg MCHC (31.0-37.0) g/dL RDW (11.5-15.5) % Plt Count (150-450) k/uL Neutrophils % % Lymphocytes % % Monocytes % % Eosinophils % % Basophils % % Neutrophils # (1.3-7.7) k/uL Lymphocytes # (1.0-4.8) k/uL Monocytes # (0-1.0) k/uL Eosinophils # (0-0.7) k/uL Basophils # (0-0.2) k/uL Hypochromasia Sodium 138 (137-145) mmol/L Potassium 4.0 (3.5-5.1) mmol/L Chloride 103 (98-107) mmol/L Carbon Dioxide 23 (22-30) mmol/L Anion Gap 12 mmol/L BUN 20 H (7-17) mg/dL Creatinine 1.84 H (0.52-1.04) mg/dL Est GFR (CKD-EPI)AfAm 33 (>60 ml/min/1.73 sqM) Est GFR (CKD-EPI)NonAf 29 (>60 ml/min/1.73 sqM) Glucose 122 H (74-99) mg/dL Calcium 9.2 (8.4-10.2) mg/dL Total Bilirubin (0.2-1.3) mg/dL AST (14-36) U/L ALT (9-52) U/L Alkaline Phosphatase (38-126) U/L Troponin I (0.000-0.034) ng/mL Total Protein (6.3-8.2) g/dL Albumin (3.5-5.0) g/dL C. difficile (EIA) Intrp Negative (Negative) Disposition Clinical Impression: Fall, Blunt head trauma, Lip laceration, Difficulty in weight bearing, On apixaban therapy Disposition: ADMITTED IP TO THIS [facility] Condition: Stable Procedures - Laceration Laceration #1 Consent Obtained: verbal consent Indication: laceration Site: face Size (cm): 2 Description: linear Depth: simple, single layer Anesthetic Used: lidocaine 1% Anesthesia Technique: local infiltration Amount (mls): 5 (ml) Type of Sutures: nylon Size of Sutures: 6-0 Number of Sutures: 2 Technique: simple, interrupted Patient Tolerated Procedure: well, no complications
[2019-02-01] MEDS: METOPROLOL TARTRATE 50 MG TAB PO SCH ×2 (05:26→13:33)
[2019-02-01] MEDS: LEVOTHYROXINE 75 MCG TAB PO SCH (05:27)
[2019-02-01] MEDS: SERTRALINE 100 MG TAB PO SCH (09:33)
[2019-02-01] MEDS: ASPIRIN 81 MG PO SCH (09:33)
[2019-02-01] MEDS: FERROUS SULFATE 325 MG TAB PO SCH (09:33)
[2019-02-01] MEDS: APIXABAN 5 MG TAB PO SCH (09:33)
[2019-02-01] MEDS: AMIODARONE 200 MG TAB PO SCH (09:33)
[2019-02-01] MEDS: ERTAPENEM 0.5 GM in SODIUM CHLORIDE 0.9% 50 ML IVPB SCH (09:34)
[2019-02-01] MEDS: TORSEMIDE 20 MG TAB PO SCH (09:34)
[2019-02-01] MEDS: ALPRAZolam 0.5 MG TAB PO PRN (09:40)
--- NOTE | 2019-02-01 14:15 | P.DS ---
Providers Date of admission: 01/30/19 08:52 Expected date of discharge: 02/01/19 Attending physician: Gm Richey MD Consults: 01/30/19 15:29 Consult Physician Urgent Consulting Provider: Davon Ramirez Consult Reason/Comments: Fall w/ facial trauma Do you want consulting provider notified?: Yes Primary care physician: Stated None Hospital Course: Patient is a 63-year-old female with a PMH of A. fib, recent ESBL UTI currently on 2 weeks of Invanz 1 g daily, COPD, history of CVA, hyperlipidemia, hypertension, memory impairment, CKD, and hypothyroidism who presented to the ED after a mechanical fall at home. The patient reported that she had been having difficulty ambulating. She noted that since her recent discharge from the hospital, she had been unable to partake in her daily activities of living and that her ill had been helping her which was very strenuous for the both of them. The patient had undergone an extensive evaluation in the emergency room with a CT head that was unremarkable. She was noted to have a laceration of the upper lip which was sutured. Surgery evaluated the patient and recommended no further interventions for her trauma. The patient was evaluated by physical therapy who recommended [facility]. The patient was accepted to [facility] where she will continue her Invanz therapy to complete a 14 day course. The patient was seen and examined at the day of discharge. She was in good spirits and denied active complaints. She denied chest pain, SOB, fever, or chills. She is ready and agreeable for discharge to [facility]. Physical Examination General: Non-toxic, in no acute distress, appears stated age, normal weight HEENT: NC/AT, anicteric sclerae, moist conjunctiva, no lid-lag, PERRLA, upper lip bruising w/ sutures in place Cardiovascular: S1/S2 wnl, no murmurs, rubs, or gallops Lungs: Clear to auscultation, normal respiratory effort, no accessory muscle use Abdominal: Soft, non-tender, non-distended, no guarding, rebound, or rigidity Skin: Warm, dry Extremities: No edema or contractures Psychiatric: Alert and oriented to person, place and time Neuro: CN II-XII grossly intact, Strength 4/5 in all 4 extremities, Speech intact, Sensation to light touch grossly intact throughout Discharge diagnosis: Debility; recent ESBL UTI requiring 2 week of Invanz; Paroxysmal Afib; Hypothyroidism A total of 40 minutes of time were spent preparing this complex discharge summary. Patient Condition at Discharge: Stable Plan - Discharge Summary Discharge Rx Participant: No New Discharge Prescriptions: Continue Nitroglycerin Sl Tabs [Nitrostat] 0.4 mg SUBLINGUAL Q5M PRN PRN Reason: Chest Pain Metoprolol Tartrate [Lopressor] 50 mg PO Q8H #0 Omeprazole 20 mg PO HS #0 QUEtiapine [SEROquel] 100 mg PO HS #2 tab Montelukast [Singulair] 10 mg PO HS@2000 #0 Levothyroxine Sodium [Synthroid] 75 mcg PO DAILY@0630 #0 tab Torsemide [Demadex] 10 mg PO BID #0 Amiodarone [Cordarone] 200 mg PO QAM Apixaban [Eliquis] 5 mg PO BID Aspirin 81 mg PO DAILY Folic Acid 1 mg PO HS Sertraline HCl [Zoloft] 100 mg PO QAM Ertapenem [INVanz] 1 gm IVPB Q24H #14 bag Ferrous Sulfate [Iron (65 MG Elemental)] 325 mg PO BID #60 tab traMADol HCl [Ultram] 50 mg PO BID PRN #4 tab PRN Reason: Mild To Moderate Pain ALPRAZolam [Xanax] 0.5 mg PO Q6H PRN #6 tablet PRN Reason: Anxiety Discharge Medication List Nitroglycerin Sl Tabs [Nitrostat] 0.4 mg SUBLINGUAL Q5M PRN 12/29/13 [History] Levothyroxine Sodium [Synthroid] 75 mcg PO DAILY@0630 #0 tab 12/06/18 [Rx] Metoprolol Tartrate [Lopressor] 50 mg PO Q8H #0 12/06/18 [Rx] Montelukast [Singulair] 10 mg PO HS@2000 #0 12/06/18 [Rx] Omeprazole 20 mg PO HS #0 12/06/18 [Rx] QUEtiapine [SEROquel] 100 mg PO HS #2 tab 12/06/18 [Rx] Torsemide [Demadex] 10 mg PO BID #0 12/06/18 [Rx] Amiodarone [Cordarone] 200 mg PO QAM 12/22/18 [History] Apixaban [Eliquis] 5 mg PO BID 12/22/18 [History] Aspirin 81 mg PO DAILY 12/22/18 [History] Folic Acid 1 mg PO HS 12/22/18 [History] Sertraline HCl [Zoloft] 100 mg PO QAM 12/22/18 [History] Ertapenem [INVanz] 1 gm IVPB Q24H #14 bag 01/20/19 [Rx] Ferrous Sulfate [Iron (65 MG Elemental)] 325 mg PO BID #60 tab 01/23/19 [Rx] ALPRAZolam [Xanax] 0.5 mg PO Q6H PRN #6 tablet 02/01/19 [Rx] traMADol HCl [Ultram] 50 mg PO BID PRN #4 tab 02/01/19 [Rx] Follow up Appointment(s)/Referral(s): None,Stated [Primary Care Provider] - 1-2 days Discharge Disposition: TRANSFER TO SNF/ECF
[2019-02-01 14:36] VITALS: BP 97/59; PULSE 87; RESP 18; TEMP 98.1
== END 2019-02-01 16:05 | DRG 914 ==
LOC: EC 17:45 → 4MS4W 21:11 → OBSVTOIN 01-30 08:52
PROVIDERS: ADMIT Internal Medicine; ATTEND Internal Medicine
PROC: 0CQ0XZZ Repair Upper Lip, External Approach (ICD-10-PCS; principal; 2019-01-28)
PROC: 05H933Z Insertion of Infusion Device into Right Brachial Vein, Percutaneous Approach (ICD-10-PCS; 2019-02-01 11:30)
DX: S09.90XA Unspecified injury of head, initial encounter (principal); N39.0 Urinary tract infection, site not specified; Z16.12 Extended spectrum beta lactamase (ESBL) resistance; I48.0 Paroxysmal atrial fibrillation; I13.10 Hypertensive heart and chronic kidney disease without heart failure, with stage 1 through stage 4 chronic kidney disease, or unspecified chronic kidney disease; N18.3 Chronic kidney disease, stage 3 (moderate); R53.81 Other malaise; R53.1 Weakness; B96.20 Unspecified Escherichia coli [E. coli] as the cause of diseases classified elsewhere; D63.1 Anemia in chronic kidney disease; E03.9 Hypothyroidism, unspecified; E78.5 Hyperlipidemia, unspecified; F31.9 Bipolar disorder, unspecified; F41.9 Anxiety disorder, unspecified; I25.10 Atherosclerotic heart disease of native coronary artery without angina pectoris; J44.9 Chronic obstructive pulmonary disease, unspecified; K21.9 Gastro-esophageal reflux disease without esophagitis; R32 Unspecified urinary incontinence; S01.511A Laceration without foreign body of lip, initial encounter; R29.6 Repeated falls; Z79.01 Long term (current) use of anticoagulants; Z79.82 Long term (current) use of aspirin; Z79.890 Hormone replacement therapy; Z79.899 Other long term (current) drug therapy; Z86.14 Personal history of Methicillin resistant Staphylococcus aureus infection; Z86.73 Personal history of transient ischemic attack (TIA), and cerebral infarction without residual deficits; Z86.718 Personal history of other venous thrombosis and embolism; Z86.74 Personal history of sudden cardiac arrest; Z87.891 Personal history of nicotine dependence; Z90.710 Acquired absence of both cervix and uterus; Z90.49 Acquired absence of other specified parts of digestive tract; Z88.1 Allergy status to other antibiotic agents; Z88.2 Allergy status to sulfonamides; Z95.5 Presence of coronary angioplasty implant and graft; Z98.42 Cataract extraction status, left eye; Z98.41 Cataract extraction status, right eye; Z96.1 Presence of intraocular lens; Z87.01 Personal history of pneumonia (recurrent); Z80.9 Family history of malignant neoplasm, unspecified; W18.30XA Fall on same level, unspecified, initial encounter; Y92.009 Unspecified place in unspecified non-institutional (private) residence as the place of occurrence of the external cause
CPT/HCPCS: 12011; 36410; 36415; 70450; 70486; 71046; 72125; 76937; 80048; 80053; 84484; 85025; 87324; 93005; 93970; 99285

== ENCOUNTER 2019-02-25 18:43 | Inpatient (IN) | payer OTHER ==
--- NOTE | 2019-02-25 20:12 | CT ---
EXAMINATION TYPE: CT brain wo con DATE OF EXAM: 02/25/2019 COMPARISON: 01/28/2019 HISTORY: 63-year-old female SOB, fever, ams TECHNIQUE: Examination was done in axial plane without intravenous contrast. Coronal and sagittal r econstructions performed. CT DLP: 1142.4 mGycm Automated exposure control for dose reduction was used. FINDINGS: There is no evidence of acute intracranial hemorrhage, acute ischemic changes, mass, mass-effect, or extra-axial fluid collection. There is no effacement of cerebral sulci or basal subarachnoid cister ns. There is no hydrocephalus. There is no midline shift. Balbuena-white matter distinction is preserv ed. There is mild bifrontal volume loss. Old lacunar infarct left thalamus. Moderate patchy white matter hypodensities in both cerebral hemispheres. Other scattered calcifications in the carotid siphons. Mild mucosal thickening right maxillary sinus. Mastoid air cells well pneumatized. Orbits and globes are intact. IMPRESSION: Mild bifrontal atrophy and moderate patchy changes of chronic small vessel ischemic disease. No acute intracranial abnormality seen. Mild chronic right maxillary sinus disease.
--- NOTE | 2019-02-25 20:17 | XR ---
EXAMINATION TYPE: XR chest 2V DATE OF EXAM: 02/25/2019 COMPARISON: 01/28/2019 HISTORY: 63-year-old male, confusion, altered mental status, shortness of breath and weakness TECHNIQUE: AP and lateral views FINDINGS: Significant rightward patient rotation alters the normal cardiac and mediastinal contours and limits evaluation. Heart appears moderately enlarged. Diffuse interstitial prominence. Hyperinflation. This seems to be a trace effusion on the left. IMPRESSION: Limited, rotated exam. Moderate cardiomegaly with interstitial changes and suspected underlying COPD. Trace right effusion. Correlate for mild CHF.
[2019-02-25 20:32] LABS: Basophils # (A) 0.2 k/uL (0-0.2); Basophils % (A) 1 %; Eosinophils # (A) 0.2 k/uL (0-0.7); Eosinophils % (A) 1 %; HCT 31.1 % (34.0-46.0); HGB 9.7 gm/dL (11.4-16.0); Lymphocytes # (A) 1.4 k/uL (1.0-4.8); Lymphocytes % (A) 9 %; MCH 30.2 pg (25.0-35.0); MCHC 31.1 g/dL (31.0-37.0); Monocytes # (A) 0.5 k/uL (0-1.0); Monocytes % (A) 3 %; Neutrophils # (A) 14.5 k/uL (1.3-7.7); Neutrophils % (A) 86 %; Platelet Count 306 k/uL (150-450); RBC 3.21 m/uL (3.80-5.40); RDW 14.2 % (11.5-15.5); WBC 16.9 k/uL (3.8-10.6)
[2019-02-25 20:42] LABS: Albumin 3.4 g/dL (3.5-5.0); Calcium 8.6 mg/dL (8.4-10.2); Potassium 4.7 mmol/L (3.5-5.1); Total Bilirubin 0.3 mg/dL (0.2-1.3); Total Protein 7.6 g/dL (6.3-8.2)
[2019-02-25 20:43] LABS: INR 1.1 (<1.2); Partial Thromboplastin Time 30.5 sec (22.0-30.0); Prothrombin Time 11.1 sec (9.0-12.0)
[2019-02-25] MEDS ORDERED: SODIUM CHLORIDE 0.9% 500 ML 500 ML IV STA (21:37)
[2019-02-25 21:42] LABS: Appearance,Urine Turbid (Clear); Bacteria,Urine Moderate /hpf; Bilirubin,Urine Negative (Negative); Blood,Urine Large (Negative); Budding Yeast,Urine Moderate /hpf; Color,Urine Light Red; Glucose,Urine (UA) Negative (Negative); Ketones,Urine Negative (Negative); Leukocyte Esterase,Urine Large (Negative); Nitrite,Urine Positive (Negative); PH, Urine 5.5 (5.0-8.0); Protein,Urine 1+ (Negative); RBC,Urine >182 /hpf (0-5); Specific Gravity,Urine 1.013 (1.001-1.035); Squamous Epithelial Cell,Urine 8 /hpf (0-4); Urobilinogen,Urine <2.0 mg/dL (<2.0); WBC,Urine >182 /hpf (0-5)
[2019-02-25 21:50] LABS: Amphetamine Screen,Urine Not Detected (NotDetected); Barbiturate Screen,Urine Not Detected (NotDetected); Benzodiazepines Screen,Urine Detected (NotDetected); Cocaine Screen,Urine Not Detected (NotDetected); Methadone Screen, Urine Not Detected (NotDetected); Opiate Screen,Urine Not Detected (NotDetected); Oxycodone Screen, Urine Not Detected (NotDetected); Phencyclidine Screen,Urine Not Detected (NotDetected); Tricyclic Antidepressant,Urine Detected (NotDetected); Urn Cannabinoid Scrn Not Detected (NotDetected)
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
[2019-02-25] MEDS ORDERED: NALOXONE 0.4 MG/ML 1 ML VIAL IV PRN (22:42)
[2019-02-25] MEDS: SODIUM CHLORIDE 0.9% 1,000 ML IV SCH (23:29)
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
[2019-02-26] MEDS ORDERED: MEROPENEM 1 GM in SODIUM CHLORIDE 0.9% 100 ML IVPB SCH (02:00)
[2019-02-26] MEDS ORDERED: MEROPENEM 500 MG in SODIUM CHLORIDE 0.9% 100 ML IVPB SCH (02:15)
[2019-02-26 06:38] LABS: Basophils % (A) 0 %; Eosinophils # (A) 0.2 k/uL (0-0.7); Eosinophils % (A) 1 %; HCT 24.4 % (34.0-46.0); Lymphocytes # (A) 1.6 k/uL (1.0-4.8); Lymphocytes % (A) 12 %; MCH 31.6 pg (25.0-35.0); MCHC 32.9 g/dL (31.0-37.0); MCV 96.1 fL (80.0-100.0); Mean Platelet Volume 6.7; Monocytes # (A) 0.5 k/uL (0-1.0); Monocytes % (A) 4 %; Neutrophils # (A) 10.7 k/uL (1.3-7.7); Neutrophils % (A) 82 %; Platelet Count 255 k/uL (150-450); RBC 2.54 m/uL (3.80-5.40); RDW 14.3 % (11.5-15.5); WBC 13.1 k/uL (3.8-10.6)
[2019-02-26 06:58] LABS: Albumin 2.7 g/dL (3.5-5.0); Calcium 8.3 mg/dL (8.4-10.2); Potassium 4.4 mmol/L (3.5-5.1); Total Bilirubin 0.3 mg/dL (0.2-1.3); Total Protein 6.4 g/dL (6.3-8.2)
[2019-02-26] MEDS: MEROPENEM 500 MG in SODIUM CHLORIDE 0.9% 100 ML IVPB SCH ×2 (11:57→23:40)
[2019-02-26] MEDS: traMADol 50 MG TAB PO PRN ×2 (12:45→21:11)
[2019-02-26] MEDS: METOPROLOL TARTRATE 25 MG TAB PO SCH ×2 (12:45→21:10)
--- NOTE | 2019-02-26 13:30 | P.PN ---
Progress Note - Text Progress Note Date: 02/26/19 Patient and daughter were seen. Patient noted to be more altered, fatigued and endorsing dysuria over the past few days. In the ED, patient low-grade fever of 99.6. She has a leukocytosis of 16.9. Urinalysis showing large leukocyte esterase. Patient was initially started on ceftriaxone and meropenem was added. She is currently on normal saline at 75 mL per hour. Urine culture is pending. ID is consulted. Kidney and bladder ultrasound was ordered. We will otherwise resume home medications. She is pending clinical improvement. Likely DC in 2-3 days.
--- NOTE | 2019-02-26 15:07 | US ---
EXAMINATION TYPE: US kidneys/renal and bladder DATE OF EXAM: 02/26/2019 COMPARISON: NONE CLINICAL HISTORY: 63-year-old female Elevated creatinine. Chronic UTI, elevated creatinine TECHNIQUE: Multiple sonographic images of the kidneys and bladder are obtained. FINDINGS: EXAM MEASUREMENTS: Right Kidney: 9.0 x 3.1 x 4.2 cm Left Kidney: 9.6 x 4.2 x 3.9 cm Offset Duplicating Machine Operator notes: Technical limitations, patient scanned in reclining chair No hydronephrosis on either side. Bladder: No gross abnormality of the partially distended bladder. Bilateral Jets seen: no IMPRESSION: Technical limitations as the patient was seated in a recliner chair. No hydronephrosis.
[2019-02-26] MEDS: TORSEMIDE 20 MG TAB PO SCH (15:19)
[2019-02-26] MEDS: IPRATROPIUM-ALBUTEROL 3 ML NEB INHALATION PRN (20:41)
[2019-02-26] MEDS: MONTELUKAST 10 MG TAB PO SCH (21:10)
[2019-02-26] MEDS: APIXABAN 5 MG TAB PO SCH (21:10)
[2019-02-26] MEDS: PANTOPRAZOLE 40 MG TABLET PO SCH (21:10)
[2019-02-26] MEDS: QUEtiapine 100 MG TAB PO SCH (21:11)
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
[2019-02-26] MEDS: SODIUM CHLORIDE 0.9% 1,000 ML IV SCH (23:41)
[2019-02-27] MEDS: LEVOTHYROXINE 88 MCG TAB PO SCH (05:54)
[2019-02-27] MEDS: AMIODARONE 200 MG TAB PO SCH (09:43)
[2019-02-27] MEDS: SERTRALINE 100 MG TAB PO SCH (09:43)
[2019-02-27] MEDS: METOPROLOL TARTRATE 25 MG TAB PO SCH ×2 (09:43→20:00)
[2019-02-27] MEDS: TORSEMIDE 20 MG TAB PO SCH ×2 (09:43→16:25)
[2019-02-27] MEDS: APIXABAN 5 MG TAB PO SCH ×2 (09:44→20:00)
[2019-02-27] MEDS: ASPIRIN 81 MG PO SCH (09:44)
[2019-02-27] MEDS: traMADol 50 MG TAB PO PRN ×2 (09:49→20:07)
[2019-02-27 10:02] LABS: HGB 7.9 gm/dL (11.4-16.0); MCH 31.7 pg (25.0-35.0); Mean Platelet Volume 6.3; Platelet Count 243 k/uL (150-450); WBC 9.7 k/uL (3.8-10.6)
[2019-02-27 10:10] LABS: Albumin 2.7 g/dL (3.5-5.0); Calcium 8.4 mg/dL (8.4-10.2); Total Bilirubin 0.3 mg/dL (0.2-1.3); Total Protein 6.4 g/dL (6.3-8.2)
[2019-02-27] MEDS: IPRATROPIUM-ALBUTEROL 3 ML NEB INHALATION PRN ×3 (11:05→20:12)
[2019-02-27] MEDS: MEROPENEM 500 MG in SODIUM CHLORIDE 0.9% 100 ML IVPB SCH (11:30)
[2019-02-27] MEDS: SODIUM CHLORIDE 0.9% 1,000 ML IV SCH (11:31)
[2019-02-27] MEDS ORDERED: HYDROcodone/APAP 5-325MG 1 EACH TAB PO STA (13:11)
--- NOTE | 2019-02-27 13:16 | P.PN ---
Subjective Progress Note Date: 02/27/19 Principal diagnosis: Altered mental status, UTI Patient was seen and examined. No acute events overnight. Patient reports bilateral flank pain left greater than right. Pain is 6 out of 10 in severity. Pain does not radiate. She denies any chest pain, shortness of breath or palpitations. No nausea or vomiting. No fever or chills. Objective - Vital Signs Vital signs: Vital Signs Temp 98.5 F 02/27/19 07:00 Pulse 80 02/27/19 11:16 Resp 16 02/27/19 07:00 BP 128/74 02/27/19 07:00 Pulse Ox 97 02/27/19 07:00 Intake & Output 02/26/19 02/27/19 02/27/19 18:59 06:59 18:59 Intake Total 498 1050 280 Output Total 201 Balance 297 1050 280 Intake: Intake, IV Titration 1050 Amount Meropenem 500 mg In 100 Sodium Chloride 0.9% 100 ml @ 200 mls/hr IVPB Q12H [facility] Rx#:[id number] Sodium Chloride 0.9% 1, 900 000 ml @ 75 mls/hr IV . [id number] [facility] Rx#:[id number] cefTRIAXone 1 gm In 50 Sodium Chloride 0.9% 50 ml @ 100 mls/hr IVPB Q24H [facility] Rx#:[id number] Oral 498 280 Output: Urine 200 Stool 1 Other: Voiding Method Bedpan Bedpan Diaper Diaper Incontinent Incontinent # Voids 3 2 # Bowel Movements 1 - Exam General: [non toxic], [no distress], [appears at stated age] Derm: [warm], [dry] Head: [atraumatic], [normocephalic], [symmetric] Eyes: [EOMI], [no lid lag], [anicteric sclera] Mouth: [no lip lesion], [mucus membranes moist] Cardiovascular: [S1S2 reg], [systolic murmur], [positive posterior tibial pulse bilateral], Lungs: [CTA bilateral], [no rhonchi, no rales] , [no accessory muscle use] Abdominal: [soft], [ nontender to palpation], [no guarding], [no appreciable o rganomegaly] Ext: [no gross muscle atrophy], [no edema], [no contractures], [positive CVA tenderness right-sided] Neuro: [ CN II-XI grossly intact], [strength is 4 out of 5 throughout with sensation intact to touch] Psych: [Alert], [oriented], [appropriate affect] - Labs CBC & Chem 7: 02/27/19 09:36 02/27/19 09:36 Labs: Abnormal Lab Results - Last 24 Hours (Table) 02/27/19 02/27/19 Range/Units 09:36 09:36 RBC 2.50 L (3.80-5.40) m/uL Hgb 7.9 L (11.4-16.0) gm/dL Hct 24.0 L (34.0-46.0) % Chloride 109 H (98-107) mmol/L BUN 34 H (7-17) mg/dL Creatinine 2.54 H (0.52-1.04) mg/dL Alkaline Phosphatase 139 H (38-126) U/L Albumin 2.7 L (3.5-5.0) g/dL Microbiology - Last 24 Hours (Table) 02/25/19 21:24 Urine Culture - Preliminary Urine,Clean Catch Assessment and Plan Assessment: Acute metabolic encephalopathy likely due to UTI Paroxysmal atrial fibrillation Hypertension Hypothyroidism Patient's mentation has improved today. Urinalysis showing positive nitrite. Has history of ESBL. Plans: Continue meropenem. Follow urine culture. ID on board. Fall precautions. Plans: Continue amiodarone and metoprolol. Anticoagulation with Eliquis. BP 128/74. Plans: Continue beta lucinda. Continue torsemide. Monitor vitals, adjust medications as necessary. Plans: Resume Synthroid. [Patient admitted for altered mental status likely due to UTI. ID on board. Urine culture pending. DC in 1-2 days.]
[2019-02-27 16:25] LABS: Glucose,Whole Blood 105 mg/dL (75-99)
--- NOTE | 2019-02-27 17:56 | PN ---
PROGRESS NOTE DATE OF SERVICE: 02/27/2019. REASON FOR FOLLOWUP: Urinary tract infection. INTERVAL HISTORY: The patient is currently afebrile. The patient has been breathing comfortably. Denies significant chest pain. Occasional cough. No nausea, vomiting. No abdominal pain. No diarrhea. PHYSICAL EXAMINATION: Blood pressure 115/72 with a pulse of 73. Temperature 98.8. She is 97% on 2 L nasal cannula. General description is an elderly female lying in bed in no distress. Respiratory system: Unlabored breathing with decreased breath sounds at the bases. No wheeze. Heart S1, S2. Regular rate and rhythm. Abdomen soft, no tenderness. LABS: White count normal at 9.7, hemoglobin 7.8. BUN of 34, creatinine is 2.54. Urine with gram negative. DIAGNOSTIC IMPRESSION AND PLAN: Patient with gram-negative urinary tract infection in this patient who did have history of recurrent urinary tract infection. Ultrasound of the kidney, no hydronephrosis. Currently on meropenem because of history of ESBL pathogen, to continue while waiting for the culture to finalize. Continue supportive care. MMODL / IJN: [id number] /
[2019-02-27] MEDS: PANTOPRAZOLE 40 MG TABLET PO SCH (20:00)
[2019-02-27] MEDS: QUEtiapine 100 MG TAB PO SCH (20:00)
[2019-02-27] MEDS: MONTELUKAST 10 MG TAB PO SCH (20:00)
[2019-02-27] MEDS: MELATONIN 3 MG TABLET PO SCH (21:38)
[2019-02-28] MEDS ORDERED: SODIUM CHLORIDE 0.9% 1,000 ML BAG ONE (01:27)
[2019-02-28] MEDS ORDERED: LEVOTHYROXINE 88 MCG TAB ONE (01:27)
[2019-02-28] MEDS: SODIUM CHLORIDE 0.9% 1,000 ML IV SCH (05:48)
[2019-02-28] MEDS: MEROPENEM 500 MG in SODIUM CHLORIDE 0.9% 100 ML IVPB SCH ×2 (05:48→13:12)
[2019-02-28] MEDS: LEVOTHYROXINE 88 MCG TAB PO SCH (06:10)
[2019-02-28] MEDS: METOPROLOL TARTRATE 25 MG TAB PO SCH ×2 (09:15→20:16)
[2019-02-28] MEDS: AMIODARONE 200 MG TAB PO SCH (09:15)
[2019-02-28] MEDS: APIXABAN 5 MG TAB PO SCH ×2 (09:16→20:16)
[2019-02-28] MEDS: ASPIRIN 81 MG PO SCH (09:16)
[2019-02-28] MEDS: TORSEMIDE 20 MG TAB PO SCH ×2 (09:16→17:15)
[2019-02-28] MEDS: SERTRALINE 100 MG TAB PO SCH (09:16)
[2019-02-28] MEDS: IPRATROPIUM-ALBUTEROL 3 ML NEB INHALATION PRN (15:05)
--- NOTE | 2019-02-28 16:43 | P.PN ---
Subjective Progress Note Date: 02/28/19 Principal diagnosis: Altered mental status, UTI Patient was seen and examined. No acute events overnight. Patient continues to report bilateral flank pain. She denies any dysuria. She denies any chest pain, shortness of breath or palpitations. No nausea or vomiting. No fever or chills. Objective - Vital Signs Vital signs: Vital Signs Temp 97.9 F 02/28/19 14:50 Pulse 73 02/28/19 16:00 Resp 18 02/28/19 16:00 BP 121/76 02/28/19 14:50 Pulse Ox 95 02/28/19 14:50 Intake & Output 02/27/19 02/28/19 02/28/19 18:59 06:59 18:59 Intake Total 1100 100 Output Total 400 403 Balance 1100 -400 -303 Intake: IV 700 Meropenem 500 mg In 100 Sodium Chloride 0.9% 100 ml @ 200 mls/hr IVPB Q12H [facility] Rx#:[id number] Sodium Chloride 0.9% 1, 600 000 ml @ 75 mls/hr IV . [id number] [facility] Rx#:[id number] Oral 400 100 Output: Urine 400 400 Stool 3 Other: Voiding Method Bedside Commode Bedside Commode Incontinent Incontinent # Voids 1 1 - Exam General: [non toxic], [no distress], [appears at stated age] Derm: [warm], [dry] Head: [atraumatic], [normocephalic], [symmetric] Eyes: [EOMI], [no lid lag], [anicteric sclera] Mouth: [no lip lesion], [mucus membranes moist] Cardiovascular: [S1S2 reg], [systolic murmur], [positive posterior tibial pulse bilateral], Lungs: [CTA bilateral], [no rhonchi, no rales] , [no accessory muscle use] Abdominal: [soft], [ nontender to palpation], [no guarding], [no appreciable organomegaly] Ext: [no gross muscle atrophy], [no edema], [no contractures], [positive CVA tenderness right-sided] Neuro: [ CN II-XI grossly intact], [strength is 4 out of 5 throughout with sensation intact to touch] Psych: [Alert], [oriented], [appropriate affect] - Labs CBC & Chem 7: 02/27/19 09:36 02/27/19 09:36 Labs: Microbiology - Last 24 Hours (Table) 02/25/19 21:24 Urine Culture - Preliminary Urine,Clean Catch Gram Neg Bacilli Assessment and Plan Assessment: Acute metabolic encephalopathy likely due to UTI Paroxysmal atrial fibrillation Hypertension Hypothyroidism Patient's mentation has improved today. Urinalysis showing positive nitrite. Has history of ESBL. Urine culture positive for gram-negative. Plans: Continue meropenem. Follow urine culture. ID on board. Fall precautions. Plans: Continue amiodarone and metoprolol. Anticoagulation with Eliquis. Plans: Continue beta lucinda. Continue torsemide. Monitor vitals, adjust medications as necessary. Plans: Resume Synthroid. [Patient admitted for altered mental status likely due to UTI. ID on board. Urine culture pending. DC after cultures return.]
[2019-02-28] MEDS: MONTELUKAST 10 MG TAB PO SCH (20:16)
[2019-02-28] MEDS: PANTOPRAZOLE 40 MG TABLET PO SCH (20:16)
[2019-02-28] MEDS: traMADol 50 MG TAB PO PRN (20:16)
[2019-02-28] MEDS: MELATONIN 3 MG TABLET PO SCH (20:16)
[2019-02-28] MEDS: QUEtiapine 100 MG TAB PO SCH (20:16)
[2019-02-28] MEDS ORDERED: HYDROcodone/APAP 5-325MG 1 EACH TAB PO STA (21:39)
--- NOTE | 2019-03-01 00:22 | PN ---
PROGRESS NOTE DATE OF SERVICE: 02/28/2019. REASON FOR FOLLOWUP: Urinary tract infection. INTERVAL HISTORY: The patient is currently afebrile. The patient is breathing comfortably. Denies any chest pain. No cough. No nausea, vomiting. No abdominal pain. No diarrhea. PHYSICAL EXAMINATION: Blood pressure 144/84 with a pulse of 77, temperature 98. She is 95% on room air. General description is a middle-aged female lying in bed in no distress. Respiratory system: Unlabored breathing, clear to auscultation anteriorly. Heart S1, S2. Regular rate abdomen. Extremities are no edema of the feet. LABS: Urine showing a gram-negative, white count normalized. DIAGNOSTIC IMPRESSION AND PLAN: Patient with gram-negative urinary tract infection, previous history of ESBL. The patient is currently covered with meropenem to continue while waiting for the culture to finalize. Continue supportive care. MMODL / IJN: [id number] /
[2019-03-01] MEDS: MEROPENEM 500 MG in SODIUM CHLORIDE 0.9% 100 ML IVPB SCH ×2 (00:35→16:04)
[2019-03-01] MEDS: LEVOTHYROXINE 88 MCG TAB PO SCH (05:21)
[2019-03-01] MEDS: ASPIRIN 81 MG PO SCH (11:09)
[2019-03-01] MEDS: traMADol 50 MG TAB PO PRN (11:09)
[2019-03-01] MEDS: SERTRALINE 100 MG TAB PO SCH (11:10)
[2019-03-01] MEDS: TORSEMIDE 20 MG TAB PO SCH ×2 (11:10→16:04)
[2019-03-01] MEDS: AMIODARONE 200 MG TAB PO SCH (11:10)
[2019-03-01] MEDS: APIXABAN 5 MG TAB PO SCH (11:10)
[2019-03-01] MEDS: METOPROLOL TARTRATE 25 MG TAB PO SCH (11:12)
[2019-03-01 11:56] VITALS: RESP 16
[2019-03-01 13:40] VITALS: BP 137/82; PULSE 71; TEMP 98.7
--- NOTE | 2019-03-01 16:55 | P.DS ---
Providers Date of admission: 02/28/19 08:30 Expected date of discharge: 03/01/19 Attending physician: Gm Richey MD Consults: 02/26/19 02:01 Consult Physician Urgent Consulting Provider: Edgar Herrera Consult Reason/Comments: ESBL UTI Do you want consulting provider notified?: Yes Primary care physician: Lia Middleton Hospital Course: Discharge diagnosis Acute metabolic encephalopathy Klebsiella UTI Paroxysmal A. fib CKD stage III Anemia of chronic disease Essential hypertension Hypothyroidism Generalized weakness Hospital course The patient is a 63-year-old female with a past focal history of pneumonia registered failure requiring tracheostomy and history of recurrent UTIs that presented with confusion and is admitted for acute metabolic encephalopathy secondary to UTI. Workup included CT of the head that showed mild bifrontal atrophy and moderate patchy changes of chronic small ischemic disease without any acute intracranial abnormality, abdominal ultrasound showed no hydronephrosis. The patient initially presented with a white count of 16.9 but remained afebrile, she was initiated on empiric IV antibiotic regimen with Merrem given her history of recurrent ESBL UTIs. Infectious diseases was consulted and the patient was continued on Merrem, with this therapy her white count resolved. The patient was noted to have anemia of chronic disease secondary to see CKD stage III, Hemoccult was negative the patient was continued on DOACs. Urine cultures eventually grew Klebsiella oxytoca With gaytan sensitivities and her IV antibiotic regimen was de-escalated to ceftin for 5 more days and she was subsequently discharged home after improvement in her strength with ongoing physical therapy. This discharge process took approximately 35 minutes Focused exam Cardiovascular: Regular rate and rhythm no murmurs or gallops Patient Condition at Discharge: Good Plan - Discharge Summary Discharge Rx Participant: Yes New Discharge Prescriptions: New Ferrous Sulfate [Iron (65 MG Elemental)] 325 mg PO BID #60 tab Cefuroxime [Ceftin] 250 mg PO BID #10 tablet Continue Nitroglycerin Sl Tabs [Nitrostat] 0.4 mg SUBLINGUAL Q5M PRN PRN Reason: Chest Pain Omeprazole 20 mg PO HS #0 QUEtiapine [SEROquel] 100 mg PO HS #2 tab Montelukast [Singulair] 10 mg PO HS@2000 #0 Torsemide [Demadex] 10 mg PO BID #0 Amiodarone [Cordarone] 200 mg PO DAILY Apixaban [Eliquis] 5 mg PO BID Aspirin 81 mg PO DAILY Folic Acid 1 mg PO HS Sertraline HCl [Zoloft] 100 mg PO DAILY traMADol HCl [Ultram] 50 mg PO BID PRN #4 tab PRN Reason: Mild To Moderate Pain ALPRAZolam [Xanax] 0.5 mg PO Q6H PRN #6 tablet PRN Reason: Anxiety Metoprolol Tartrate [Lopressor] 25 mg PO Q12H Ipratropium-Albuterol Nebulize [Duoneb 0.5 mg-3 mg/3 ml Soln] 3 ml INHALATION RT-QID PRN PRN Reason: Shortness Of Breath Albuterol Inhaler [Ventolin Hfa Inhaler] 1 - 2 puff INHALATION RT-Q6H PRN PRN Reason: Shortness Of Breath Levothyroxine Sodium [Synthroid] 88 mcg PO DAILY Discharge Medication List Nitroglycerin Sl Tabs [Nitrostat] 0.4 mg SUBLINGUAL Q5M PRN 12/29/13 [History] Montelukast [Singulair] 10 mg PO HS@2000 #0 12/06/18 [Rx] Omeprazole 20 mg PO HS #0 12/06/18 [Rx] QUEtiapine [SEROquel] 100 mg PO HS #2 tab 12/06/18 [Rx] Torsemide [Demadex] 10 mg PO BID #0 12/06/18 [Rx] Amiodarone [Cordarone] 200 mg PO DAILY 12/22/18 [History] Apixaban [Eliquis] 5 mg PO BID 12/22/18 [History] Aspirin 81 mg PO DAILY 12/22/18 [History] Folic Acid 1 mg PO HS 12/22/18 [History] Sertraline HCl [Zoloft] 100 mg PO DAILY 12/22/18 [History] ALPRAZolam [Xanax] 0.5 mg PO Q6H PRN #6 tablet 02/01/19 [Rx] traMADol HCl [Ultram] 50 mg PO BID PRN #4 tab 02/01/19 [Rx] Albuterol Inhaler [Ventolin Hfa Inhaler] 1 - 2 puff INHALATION RT-Q6H PRN 02/26/19 [History] Ipratropium-Albuterol Nebulize [Duoneb 0.5 mg-3 mg/3 ml Soln] 3 ml INHALATION RT-QID PRN 02/26/19 [History] Levothyroxine Sodium [Synthroid] 88 mcg PO DAILY 02/26/19 [History] Metoprolol Tartrate [Lopressor] 25 mg PO Q12H 02/26/19 [History] Cefuroxime [Ceftin] 250 mg PO BID #10 tablet 03/01/19 [Rx] Ferrous Sulfate [Iron (65 MG Elemental)] 325 mg PO BID #60 tab 03/01/19 [Rx] Follow up Appointment(s)/Referral(s): [facility], [NON-STAFF] - As Needed Lia Middleton MD [Primary Care Provider] - 1-2 days (Office closed at time of discharge please call WednesdayMarch 03 to set up a follow up appointment) Discharge Disposition: HOME WITH HOME HEALTH SERVICES
--- NOTE | 2019-03-01 18:35 | PN ---
PROGRESS NOTE DATE OF SERVICE: 03/01/2019 REASON FOR FOLLOWUP: Urinary tract infection. INTERVAL HISTORY: The patient is currently afebrile. The patient is breathing comfortably. Denies having any chest pain or cough. No abdominal pain or any diarrhea. PHYSICAL EXAMINATION: Blood pressure 137/82 with a pulse of 71, temperature 98.7. She is 92% on room air. General description is a middle-aged female lying in bed in no distress. RESPIRATORY SYSTEM: Unlabored breathing with decreased breath sounds at the base. No wheeze. HEART: S1, S2. Regular rate and rhythm. ABDOMEN: Soft. No tenderness. LABS: No new labs have been obtained today. Last creatinine was 2.54 on 02/27. Urine has been finalized with Klebsiella that is a sensitive pathogen. DIAGNOSTIC IMPRESSION AND PLAN: Patient admitted to hospital with mental status changes, weakness evidence of a urinary tract infection. Urine has been finalized with Klebsiella, a sensitive pathogen. Antibiotic will be switched to oral Ceftin 250 mg twice a day for a week. Prescription has been sent over to the pharmacy. Continue with supportive care. MMODL / IJN: [id number] / MTDD
== END 2019-03-01 17:20 | disposition home health service (06) | DRG 689 ==
LOC: EC 18:43 → 4SSUR 23:59 → OBSVTOIN 02-28 08:30 → 4SSUR 02-28 23:56
PROVIDERS: ADMIT Internal Medicine; ATTEND Internal Medicine
DX: N39.0 Urinary tract infection, site not specified (principal); G93.41 Metabolic encephalopathy; I13.0 Hypertensive heart and chronic kidney disease with heart failure and stage 1 through stage 4 chronic kidney disease, or unspecified chronic kidney disease; N18.4 Chronic kidney disease, stage 4 (severe); Z16.12 Extended spectrum beta lactamase (ESBL) resistance; B96.1 Klebsiella pneumoniae [K. pneumoniae] as the cause of diseases classified elsewhere; B96.89 Other specified bacterial agents as the cause of diseases classified elsewhere; E03.9 Hypothyroidism, unspecified; D63.8 Anemia in other chronic diseases classified elsewhere; E66.9 Obesity, unspecified; E78.5 Hyperlipidemia, unspecified; F31.9 Bipolar disorder, unspecified; F41.9 Anxiety disorder, unspecified; I25.10 Atherosclerotic heart disease of native coronary artery without angina pectoris; I50.9 Heart failure, unspecified; I48.0 Paroxysmal atrial fibrillation; J44.9 Chronic obstructive pulmonary disease, unspecified; Z79.01 Long term (current) use of anticoagulants; Z79.82 Long term (current) use of aspirin; Z79.890 Hormone replacement therapy; Z79.899 Other long term (current) drug therapy; Z86.14 Personal history of Methicillin resistant Staphylococcus aureus infection; Z86.19 Personal history of other infectious and parasitic diseases; Z86.718 Personal history of other venous thrombosis and embolism; Z86.73 Personal history of transient ischemic attack (TIA), and cerebral infarction without residual deficits; Z86.74 Personal history of sudden cardiac arrest; Z87.01 Personal history of pneumonia (recurrent); Z87.440 Personal history of urinary (tract) infections; Z87.891 Personal history of nicotine dependence; Z90.710 Acquired absence of both cervix and uterus
CPT/HCPCS: 36415; 51701; 70450; 71046; 76770; 80053; 80306; 81001; 82140; 82272; 83880; 84484; 85025; 85027; 85610; 85730; 87077; 87086; 87186; 93005; 94640; 96365; 99285

== ENCOUNTER 2019-03-09 13:18 | Inpatient (IN) | payer OTHER ==
[2019-03-09] MEDS ORDERED: SODIUM CHLORIDE 0.9% 1,000 ML IV STA (14:04)
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
[2019-03-09 14:43] LABS: Basophils % (A) 0 %; Eosinophils # (A) 0.1 k/uL (0-0.7); Eosinophils % (A) 1 %; HCT 29.8 % (34.0-46.0); Lymphocytes # (A) 1.9 k/uL (1.0-4.8); Lymphocytes % (A) 8 %; MCHC 31.9 g/dL (31.0-37.0); MCV 93.9 fL (80.0-100.0); Mean Platelet Volume 7.3; Monocytes # (A) 0.9 k/uL (0-1.0); Monocytes % (A) 3 %; Neutrophils # (A) 22.1 k/uL (1.3-7.7); Neutrophils % (A) 87 %; Platelet Count 344 k/uL (150-450); RBC 3.18 m/uL (3.80-5.40); RDW 14.2 % (11.5-15.5); WBC 25.3 k/uL (3.8-10.6)
[2019-03-09 14:55] LABS: ALT 28 U/L (9-52); AST 48 U/L (14-36); African American GFR (CKD) 22 (>60 ml/min/1.73 sqM); Albumin 3.6 g/dL (3.5-5.0); Alkaline Phosphatase 147 U/L (38-126); Anion Gap 12 mmol/L; Blood Urea Nitrogen 49 mg/dL (7-17); Calcium 9.2 mg/dL (8.4-10.2); Carbon Dioxide 24 mmol/L (22-30); Chloride 100 mmol/L (98-107); Creatine Kinase <20 U/L (30-135); Glucose 115 mg/dL (74-99); Magnesium 1.6 mg/dL (1.6-2.3); Non-African American GFR(CKD) 19 (>60 ml/min/1.73 sqM); Phosphorus 4.3 mg/dL (2.5-4.5); Sodium 136 mmol/L (137-145); Total Bilirubin 0.5 mg/dL (0.2-1.3); Total Protein 8.2 g/dL (6.3-8.2)
[2019-03-09 14:57] LABS: HGB 9.5 gm/dL (11.4-16.0)
[2019-03-09 15:01] LABS: Potassium 5.3 mmol/L (3.5-5.1)
[2019-03-09 15:02] LABS: INR 1.1 (<1.2); Partial Thromboplastin Time 29.1 sec (22.0-30.0); Prothrombin Time 11.8 sec (9.0-12.0)
[2019-03-09 15:05] LABS: Appearance,Urine Clear (Clear); Bilirubin,Urine Negative (Negative); Blood,Urine Large (Negative); Color,Urine Yellow; Glucose,Urine (UA) Negative (Negative); Hyaline Casts,Urine 3 /lpf (0-2); Ketones,Urine Negative (Negative); Leukocyte Esterase,Urine Small (Negative); Mucus,Urine Rare /hpf; Nitrite,Urine Negative (Negative); Protein,Urine 1+ (Negative); RBC,Urine >182 /hpf (0-5); Squamous Epithelial Cell,Urine 2 /hpf (0-4); Urobilinogen,Urine <2.0 mg/dL (<2.0)
--- NOTE | 2019-03-09 15:45 | XR ---
EXAMINATION TYPE: XR chest 2V DATE OF EXAM: 03/09/2019 COMPARISON: 02/25/2019 HISTORY: Weakness TECHNIQUE: Frontal and lateral views of the chest are obtained. FINDINGS: There is no focal air space opacity or pneumothorax. Mild centralized pulmonary edema is b est seen on the lateral view. Trace pleural effusions are present. The cardiac silhouette size is enl arged. The osseous structures are intact. Diffuse osseous demineralization and mild degenerative oralia nges of the spine IMPRESSION: Mild fluid overload. Consider decompensated congestive heart failure.
[2019-03-09] MEDS ORDERED: NALOXONE 0.4 MG/ML 1 ML VIAL IV PRN (16:06)
[2019-03-09] MEDS ORDERED: ONDANSETRON 4 MG/2 ML VIAL IVP PRN (16:06)
[2019-03-09] MEDS ORDERED: ACETAMINOPHEN TAB 325 MG TAB PO PRN (16:06)
[2019-03-09] MEDS ORDERED: BENZOCAINE/MENTHOL LOZENG 1 EACH LOZENGE MUCOUS MEM PRN (16:06)
[2019-03-09] MEDS ORDERED: FUROSEMIDE 10 MG/ML 4 ML VIAL IV STA (16:12)
[2019-03-09] MEDS ORDERED: PIPERACILLIN-TAZOBACTAM 3.375 GM in SODIUM CHLORIDE 0.9% 100 ML IVPB STA (16:19)
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
[2019-03-09] MEDS ORDERED: IPRATROPIUM-ALBUTEROL 3 ML NEB INHALATION PRN (19:33)
[2019-03-09] MEDS: IPRATROPIUM-ALBUTEROL 3 ML NEB INHALATION SCH ×2 (20:05→20:10)
[2019-03-09] MEDS: METOPROLOL TARTRATE 25 MG TAB PO SCH (20:35)
[2019-03-09] MEDS: MONTELUKAST 10 MG TAB PO SCH (20:35)
[2019-03-09] MEDS: PANTOPRAZOLE 40 MG TABLET PO SCH (20:36)
[2019-03-09] MEDS: QUEtiapine 100 MG TAB PO SCH (20:36)
[2019-03-09] MEDS: FOLIC ACID 1 MG TAB PO SCH (20:36)
[2019-03-09] MEDS: ATORVASTATIN 20 MG TAB PO SCH (20:36)
[2019-03-09] MEDS: FERROUS SULFATE 325 MG TAB PO SCH (20:36)
[2019-03-09] MEDS: APIXABAN 5 MG TAB PO SCH (20:36)
[2019-03-10] MEDS: IPRATROPIUM-ALBUTEROL 3 ML NEB INHALATION SCH ×6 (00:16→20:14)
[2019-03-10] MEDS: LEVOTHYROXINE 88 MCG TAB PO SCH (05:29)
[2019-03-10] MEDS: traMADol 50 MG TAB PO PRN (05:29)
[2019-03-10 07:36] LABS: Basophils % (A) 0 %; Eosinophils # (A) 0.3 k/uL (0-0.7); Eosinophils % (A) 2 %; HGB 8.8 gm/dL (11.4-16.0); Lymphocytes # (A) 1.6 k/uL (1.0-4.8); Lymphocytes % (A) 13 %; MCH 31.9 pg (25.0-35.0); MCHC 33.7 g/dL (31.0-37.0); MCV 94.4 fL (80.0-100.0); Monocytes # (A) 0.5 k/uL (0-1.0); Monocytes % (A) 4 %; Neutrophils # (A) 10.3 k/uL (1.3-7.7); Neutrophils % (A) 80 %; Platelet Count 268 k/uL (150-450); RBC 2.75 m/uL (3.80-5.40); RDW 14.1 % (11.5-15.5); WBC 12.9 k/uL (3.8-10.6)
[2019-03-10 07:42] LABS: Albumin 3.1 g/dL (3.5-5.0); Magnesium 1.7 mg/dL (1.6-2.3); Potassium 4.3 mmol/L (3.5-5.1); Total Bilirubin 0.4 mg/dL (0.2-1.3); Total Protein 7.2 g/dL (6.3-8.2)
[2019-03-10] MEDS: TORSEMIDE 20 MG TAB PO SCH ×2 (09:50→18:05)
[2019-03-10] MEDS: METOPROLOL TARTRATE 25 MG TAB PO SCH ×2 (09:50→21:24)
[2019-03-10] MEDS: APIXABAN 5 MG TAB PO SCH ×2 (09:50→21:24)
[2019-03-10] MEDS: SERTRALINE 100 MG TAB PO SCH (09:50)
[2019-03-10] MEDS: FERROUS SULFATE 325 MG TAB PO SCH ×2 (09:50→21:24)
[2019-03-10] MEDS: ASPIRIN 81 MG PO SCH (09:50)
[2019-03-10] MEDS: PIPERACILLIN-TAZOBACTAM 3.375 GM in SODIUM CHLORIDE 0.9% 100 ML IVPB SCH ×2 (09:50→21:25)
[2019-03-10] MEDS: AMIODARONE 200 MG TAB PO SCH (09:51)
--- NOTE | 2019-03-10 10:39 | P.PN ---
Subjective Progress Note Date: 03/10/19 Patient seen and examined at bedside, patient has been up and ambulatory down the foy and back with her walker while working with physical therapy. Her appetite is back. Her white count went from 25 down to 12.9 overnight, she is been afebrile. The reporting that he has a follow-up appointment with urology 17/03/19 @ 10 am Objective - Vital Signs Vital signs: Vital Signs Temp 97.6 F 03/10/19 06:52 Pulse 70 03/10/19 07:39 Resp 17 03/10/19 06:52 BP 98/65 03/10/19 06:52 Pulse Ox 100 03/10/19 06:52 Intake & Output 03/09/19 03/10/19 03/10/19 18:59 06:59 18:59 Intake Total 340 Balance 340 Weight 67.585 kg Intake: Oral 340 Other: Voiding Method Bedside Commode # Voids 1 - Exam Constitutional: No acute distress, conversant, pleasant Eyes: Anicteric sclerae, moist conjunctiva, no lid-lag, PERRLA ENMT: NC/AT,Oropharynx clear, no erythema, exudates Neck:Supple, FROM, no masses, or JVD, No carotid bruits; No thyromegaly Lungs: Clear to auscultation, Clear to percussion, Normal respiratory effort, no accessory muscle use Cardiovascular: Heart regular in rate and rhythm, No murmurs, gallops, or rubs no peripheral edema Abdominal: Soft Nontender, nom distended, no guarding, no rebound or rigidity, Normoactive bowel sounds No hepatomegaly, No splenomegaly, No palpable mass No abdominal wall hernia noted Skin: Normal temperature, tone, texture, turgor, No induration No subcutaneous nodules, No rash, lesions, No ulcers Extremities:No digital cyanosis No clubbing, Pedal pulses intact and symmetrical Radial pulses intact and symmetrical Normal gait and station, No calf tenderness Psychiatric: Alert and oriented to person, place and time, Appropriate affect Intact judgement Neuro: Muscles Strength 5/5 in all 4 extremities, Sensation to light touch grossly present throughout, Cranial nerves II-XII grossly intact. No focal sensory deficits - Labs CBC & Chem 7: 03/10/19 06:57 03/10/19 06:57 Labs: Abnormal Lab Results - Last 24 Hours (Table) 03/09/19 03/09/19 03/09/19 Range/Units 13:10 13:10 14:44 WBC 25.3 H (3.8-10.6) k/uL RBC 3.18 L (3.80-5.40) m/uL Hgb 9.5 L D (11.4-16.0) gm/dL Hct 29.8 L (34.0-46.0) % Neutrophils # 22.1 H (1.3-7.7) k/uL Sodium 136 L (137-145) mmol/L Potassium 5.3 H (3.5-5.1) mmol/L BUN 49 H (7-17) mg/dL Creatinine 2.55 H (0.52-1.04) mg/dL Glucose 115 H (74-99) mg/dL AST 48 H (14-36) U/L Alkaline Phosphatase 147 H (38-126) U/L Creatine Kinase <20 L (30-135) U/L Albumin (3.5-5.0) g/dL Urine Protein 1+ H (Negative) Urine Blood Large H (Negative) Ur Leukocyte Esterase Small H (Negative) Urine RBC >182 H (0-5) /hpf Urine WBC 16 H (0-5) /hpf Hyaline Casts 3 H (0-2) /lpf Urine Mucus Rare H (None) /hpf 03/10/19 03/10/19 Range/Units 06:57 06:57 WBC 12.9 H (3.8-10.6) k/uL RBC 2.75 L (3.80-5.40) m/uL Hgb 8.8 L (11.4-16.0) gm/dL Hct 26.0 L (34.0-46.0) % Neutrophils # 10.3 H (1.3-7.7) k/uL Sodium (137-145) mmol/L Potassium (3.5-5.1) mmol/L BUN 53 H (7-17) mg/dL Creatinine 2.86 H (0.52-1.04) mg/dL Glucose (74-99) mg/dL AST (14-36) U/L Alkaline Phosphatase (38-126) U/L Creatine Kinase (30-135) U/L Albumin 3.1 L (3.5-5.0) g/dL Urine Protein (Negative) Urine Blood (Negative) Ur Leukocyte Esterase (Negative) Urine RBC (0-5) /hpf Urine WBC (0-5) /hpf Hyaline Casts (0-2) /lpf Urine Mucus (None) /hpf Microbiology - Last 24 Hours (Table) 03/09/19 14:44 Urine Culture - Preliminary Urine,Voided Assessment and Plan Assessment: Generalized weakness * Resolving working with physical therapy Leukocytosis * Patient continues to be afebrile * White count trending down nicely continue empiric IV antibiotics with Rocephin * Blood cultures ordered and are pending * ID consult with Dr. Herrera pending Previous Klebsiella oxytoca UTI * Urine culture ordered * History of recurrent UTIs has follow-up with urology next Wednesday * Consider prophylactic therapy for UTIs Acute on chronic diastolic CHF exacerbation * Repeat chest x-ray pending, received single dose of IV Lasix 40 mg yesterday * Continue metoprolol, torsemide * Anemia of chronic disease * Stable at baseline continue oral iron supplementation COPD * Stable without acute exacerbation Mild Hyperkalemia * Resolved CKD stage III/IV * Stable kidney function Paroxysmal A. fib on DOAC with Eliquis * Continue amiodarone and metoprolol anticipated discharge 1- 2 days
--- NOTE | 2019-03-10 11:57 | XR ---
EXAMINATION TYPE: XR chest 2V DATE OF EXAM: 03/10/2019 COMPARISON: 03/09/2019 HISTORY: History of congestive heart failure. Shortness of breath. TECHNIQUE: Frontal and lateral views of the chest are obtained. FINDINGS: Cardiomediastinal silhouette is enlarged. Very trace pleural effusions remain. Pulmonary v ascular congestion has resolved. No pneumothorax. Generalized osseous demineralization. IMPRESSION: Resolved pulmonary edema. Trace pleural effusions and cardiomegaly remain.
[2019-03-10 14:55] VITALS: BMI 26.4
[2019-03-10] MEDS: ALPRAZolam 0.5 MG TAB PO PRN (18:05)
[2019-03-10] MEDS: PANTOPRAZOLE 40 MG TABLET PO SCH (21:24)
[2019-03-10] MEDS: FOLIC ACID 1 MG TAB PO SCH (21:24)
[2019-03-10] MEDS: MONTELUKAST 10 MG TAB PO SCH (21:24)
[2019-03-10] MEDS: QUEtiapine 100 MG TAB PO SCH (21:24)
[2019-03-10] MEDS: ATORVASTATIN 20 MG TAB PO SCH (21:24)
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
[2019-03-11] MEDS: IPRATROPIUM-ALBUTEROL 3 ML NEB INHALATION SCH ×6 (02:12→21:30)
[2019-03-11] MEDS: LEVOTHYROXINE 88 MCG TAB PO SCH (05:44)
[2019-03-11] MEDS: AMIODARONE 200 MG TAB PO SCH ×2 (08:41→12:24)
[2019-03-11] MEDS: ASPIRIN 81 MG PO SCH (08:53)
[2019-03-11] MEDS: TORSEMIDE 20 MG TAB PO SCH (08:53)
[2019-03-11] MEDS: FERROUS SULFATE 325 MG TAB PO SCH ×2 (08:53→20:09)
[2019-03-11] MEDS: SERTRALINE 100 MG TAB PO SCH (08:54)
[2019-03-11] MEDS: METOPROLOL TARTRATE 25 MG TAB PO SCH (08:54)
[2019-03-11] MEDS: PIPERACILLIN-TAZOBACTAM 3.375 GM in SODIUM CHLORIDE 0.9% 100 ML IVPB SCH ×2 (08:54→20:12)
[2019-03-11] MEDS: APIXABAN 5 MG TAB PO SCH ×2 (08:54→20:09)
[2019-03-11] MEDS ORDERED: FUROSEMIDE 10 MG/ML 2 ML VIAL IV ONE (09:03)
[2019-03-11 10:00] LABS: Basophils % (A) 0 %; Eosinophils # (A) 0.5 k/uL (0-0.7); Eosinophils % (A) 5 %; HCT 27.9 % (34.0-46.0); Lymphocytes # (A) 1.3 k/uL (1.0-4.8); Lymphocytes % (A) 14 %; MCH 30.9 pg (25.0-35.0); MCHC 32.3 g/dL (31.0-37.0); MCV 95.6 fL (80.0-100.0); Mean Platelet Volume 7.1; Monocytes # (A) 0.4 k/uL (0-1.0); Monocytes % (A) 4 %; Neutrophils # (A) 7.1 k/uL (1.3-7.7); Neutrophils % (A) 75 %; Platelet Count 315 k/uL (150-450); RBC 2.92 m/uL (3.80-5.40); RDW 14.1 % (11.5-15.5); WBC 9.5 k/uL (3.8-10.6)
[2019-03-11 10:09] LABS: Calcium 9.2 mg/dL (8.4-10.2); Potassium 4.3 mmol/L (3.5-5.1)
--- NOTE | 2019-03-11 13:14 | P.PN ---
Subjective Progress Note Date: 03/11/19 Patient seen and examined at bedside, patient has been up and ambulatory down the foy and back with her walker while working with physical therapy. Her appetite is back. Her white count went from 25 down to 12.9 to 9.5 , she is been afebrile. The reporting that he has a follow-up appointment with urology 17/03/19 @ 10 am Objective - Vital Signs Vital signs: Vital Signs Temp 98.1 F 03/11/19 07:00 Pulse 63 03/11/19 11:48 Resp 16 03/11/19 11:48 BP 98/59 03/11/19 07:00 Pulse Ox 95 03/11/19 07:00 Intake & Output 03/10/19 03/11/19 03/11/19 18:59 06:59 18:59 Intake Total 500 440 Balance 500 440 Weight 67.585 kg Intake: Intake, IV Titration 200 Amount Piperacillin-Tazobactam 3 200 .375 gm In Sodium Chloride 0.9% 100 ml @ 25 mls/hr IVPB Q12HR [facility] Rx #:[id number] Oral 500 240 Other: Voiding Method Bedside Commode # Voids 3 2 # Bowel Movements 1 1 - Exam Constitutional: No acute distress, conversant, pleasant Eyes: Anicteric sclerae, moist conjunctiva, no lid-lag, PERRLA ENMT: NC/AT,Oropharynx clear, no erythema, exudates Neck:Supple, FROM, no masses, or JVD, No carotid bruits; No thyromegaly Lungs: Clear to auscultation, Clear to percussion, Normal respiratory effort, no accessory muscle use Cardiovascular: Heart regular in rate and rhythm, No murmurs, gallops, or rubs no peripheral edema Abdominal: Soft Nontender, nom distended, no guarding, no rebound or rigidity, Normoactive bowel sounds No hepatomegaly, No splenomegaly, No palpable mass No abdominal wall hernia noted Skin: Normal temperature, tone, texture, turgor, No induration No subcutaneous nodules, No rash, lesions, No ulcers Extremities:No digital cyanosis No clubbing, Pedal pulses intact and symmetrical Radial pulses intact and symmetrical Normal gait and station, No calf tenderness Psychiatric: Alert and oriented to person, place and time, Appropriate affect Intact judgement Neuro: Muscles Strength 5/5 in all 4 extremities, Sensation to light touch grossly present throughout, Cranial nerves II-XII grossly intact. No focal sensory deficits - Labs CBC & Chem 7: 03/11/19 09:29 03/11/19 09:29 Labs: Abnormal Lab Results - Last 24 Hours (Table) 03/11/19 03/11/19 Range/Units 09:29 09:29 RBC 2.92 L (3.80-5.40) m/uL Hgb 9.0 L (11.4-16.0) gm/dL Hct 27.9 L (34.0-46.0) % BUN 57 H (7-17) mg/dL Creatinine 3.06 H (0.52-1.04) mg/dL Glucose 111 H (74-99) mg/dL Microbiology - Last 24 Hours (Table) 03/09/19 17:10 Blood Culture - Preliminary Blood No Growth after 24 hours 03/09/19 14:44 Urine Culture - Final Urine,Voided Assessment and Plan Assessment: Generalized weakness * Resolving working with physical therapy Leukocytosis * Patient continues to be afebrile * White count trending down nicely continue empiric IV antibiotics with Rocephin * Blood cultures ordered and are pending * appreciate ID recs Previous Klebsiella oxytoca UTI * Urine culture ordered * History of recurrent UTIs has follow-up with urology next Wednesday * Consider prophylactic therapy for UTIs Acute on chronic diastolic CHF exacerbation * Repeat chest x-ray yesterday shoed resolved pulmonary edema , received single dose of IV Lasix 40 mg and 10 mg IV today * Continue metoprolol, torsemide Anemia of chronic disease * Stable at baseline continue oral iron supplementation COPD * Stable without acute exacerbation Mild Hyperkalemia * Resolved BEHZAD superimposed on CKD stage III/IV * Cr up to 3.06 with good urine output likely cardio renal will decrease metoprolol to 12.5 mg PO BD * will have nephrology consult with Oskar leno on DOAC with Eliquis * Continue amiodarone and metoprolol anticipated discharge 1- 2 days
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
[2019-03-11] MEDS: SODIUM CHLORIDE 0.9% 1,000 ML IV SCH (17:00)
[2019-03-11] MEDS: ATORVASTATIN 20 MG TAB PO SCH (20:09)
[2019-03-11] MEDS: FOLIC ACID 1 MG TAB PO SCH (20:09)
[2019-03-11] MEDS: PANTOPRAZOLE 40 MG TABLET PO SCH (20:09)
[2019-03-11] MEDS: METOPROLOL TARTRATE 12.5 MG TAB PO SCH (20:09)
[2019-03-11] MEDS: QUEtiapine 100 MG TAB PO SCH (20:18)
[2019-03-11] MEDS: MONTELUKAST 10 MG TAB PO SCH (20:18)
--- NOTE | 2019-03-11 21:44 | PN ---
PROGRESS NOTE DATE OF SERVICE: 03/11/2019 REASON FOR FOLLOWUP: Leukocytosis with a question of UTI. INTERVAL HISTORY: The patient is currently afebrile. The patient has been breathing comfortably. Denies having any chest pain or cough. No nausea, vomiting. No abdominal pain, no diarrhea. PHYSICAL EXAMINATION: Blood pressure is 93/54 with a pulse of 55, temperature 98.1. She is 95% on room air. General description is a middle-aged female lying in bed in no distress. Respiratory system: Unlabored breathing, clear to auscultation anteriorly. Heart S1, S2. Regular rate and rhythm. Abdomen soft, no tenderness. Extremities: No edema of the feet. LABS: Hemoglobin is 9.5 BUN of 57, creatinine 3.06. Urine is so far negative. Blood culture negative. DIAGNOSTIC IMPRESSION AND PLAN: Patient admitted to the hospital with generalized weakness. This patient who did have a positive UA and elevated white count with concern for urinary tract infection. ( ) has recurrent UTI and recently did have a Klebsiella ( ) ESBL. The patient is currently on Zosyn, may consider short course of oral Ceftin on discharge. This was discussed with the admitting physician. Continue supportive care. MMODL / IJN: [id number] /
[2019-03-12] MEDS: IPRATROPIUM-ALBUTEROL 3 ML NEB INHALATION SCH ×7 (00:19→23:37)
[2019-03-12] MEDS: SODIUM CHLORIDE 0.9% 1,000 ML IV SCH ×2 (02:57→19:43)
[2019-03-12] MEDS: LEVOTHYROXINE 88 MCG TAB PO SCH (05:39)
[2019-03-12 08:26] LABS: Potassium 4.3 mmol/L (3.5-5.1)
--- NOTE | 2019-03-12 09:30 | P.PN ---
Subjective Progress Note Date: 03/12/19 Seen and examined for the follow-up of acute kidney injury. No new acute issues. No nausea vomiting diarrhea. Objective - Vital Signs Vital signs: Vital Signs Temp 98.1 F 03/12/19 07:00 Pulse 72 03/12/19 08:28 Resp 18 03/12/19 07:00 BP 116/80 03/12/19 07:00 Pulse Ox 97 03/12/19 07:00 Intake & Output 03/11/19 03/12/19 03/12/19 18:59 06:59 18:59 Output Total 110 Balance -110 Output: Post Void Residual 110 Other: Voiding Method Bedside Commode # Voids 3 1 2 # Bowel Movements 2 1 - Exam No acute distress S1-S2 heard Lungs clear No edema - Labs CBC & Chem 7: 03/11/19 09:29 03/12/19 06:58 Labs: Abnormal Lab Results - Last 24 Hours (Table) 03/11/19 03/11/19 03/12/19 Range/Units 09:29 09:29 06:58 RBC 2.92 L (3.80-5.40) m/uL Hgb 9.0 L (11.4-16.0) gm/dL Hct 27.9 L (34.0-46.0) % BUN 57 H 55 H (7-17) mg/dL Creatinine 3.06 H 2.91 H (0.52-1.04) mg/dL Glucose 111 H (74-99) mg/dL Microbiology - Last 24 Hours (Table) 03/09/19 17:10 Blood Culture - Preliminary Blood No Growth after 48 hours Assessment and Plan Assessment: #1 acute kidney injury suspect ischemic ATN with low blood pressure/prerenal process with concomitant diuretic use. #2 chronic kidney disease stage III secondary to nephrosclerosis with a baseline creatinine of 1.4-1.8 MG per DL. #3 atrial fibrillation on anticoagulation #4 hypotension, better #5 complicated UTI on antibiotics #6 diastolic CHF currently compensated #7 anemia with chronic kidney disease #8 metabolic bone disease Plan: #1 diuretics stopped yesterday continue with normal saline at 75 ML's an hour. #2 check bladder scan to rule out urinary retention and strict ins and outs. #3 urine analysis persistent hematuria. If renal function doesn't improve, check serology to rule out vasculitis. #4 avoid nephrotoxic agents and hypotensive episodes. #5 labs in the morning
[2019-03-12] MEDS: APIXABAN 5 MG TAB PO SCH ×2 (10:11→21:42)
[2019-03-12] MEDS: PIPERACILLIN-TAZOBACTAM 3.375 GM in SODIUM CHLORIDE 0.9% 100 ML IVPB SCH (10:11)
[2019-03-12] MEDS: METOPROLOL TARTRATE 12.5 MG TAB PO SCH ×2 (10:12→21:42)
[2019-03-12] MEDS: FERROUS SULFATE 325 MG TAB PO SCH ×2 (10:12→21:42)
[2019-03-12] MEDS: ASPIRIN 81 MG PO SCH (10:12)
[2019-03-12] MEDS: SERTRALINE 100 MG TAB PO SCH (10:12)
[2019-03-12] MEDS: AMIODARONE 200 MG TAB PO SCH (10:12)
[2019-03-12] MEDS: traMADol 50 MG TAB PO PRN ×2 (10:23→21:48)
--- NOTE | 2019-03-12 13:02 | P.PN ---
Subjective Progress Note Date: 03/12/19 Patient doing well today in great spirits reports that she feels absolutely amazing. No acute events overnight Objective - Vital Signs Vital signs: Vital Signs Temp 98.1 F 03/12/19 07:00 Pulse 74 03/12/19 11:50 Resp 18 03/12/19 07:00 BP 116/80 03/12/19 07:00 Pulse Ox 97 03/12/19 07:00 Intake & Output 03/11/19 03/12/19 03/12/19 18:59 06:59 18:59 Output Total 110 Balance -110 Output: Post Void Residual 110 Other: Voiding Method Bedside Commode # Voids 3 1 2 # Bowel Movements 2 1 - Exam Constitutional: No acute distress, conversant, pleasant Eyes: Anicteric sclerae, moist conjunctiva, no lid-lag, PERRLA ENMT: NC/AT,Oropharynx clear, no erythema, exudates Neck:Supple, FROM, no masses, or JVD, No carotid bruits; No thyromegaly Lungs: Clear to auscultation, Clear to percussion, Normal respiratory effort, no accessory muscle use Cardiovascular: Heart regular in rate and rhythm, No murmurs, gallops, or rubs no peripheral edema Abdominal: Soft Nontender, nom distended, no guarding, no rebound or rigidity, Normoactive bowel sounds No hepatomegaly, No splenomegaly, No palpable mass No abdominal wall hernia noted Skin: Normal temperature, tone, texture, turgor, No induration No subcutaneous nodules, No rash, lesions, No ulcers Extremities:No digital cyanosis No clubbing, Pedal pulses intact and symmetrical Radial pulses intact and symmetrical Normal gait and station, No calf tenderness Psychiatric: Alert and oriented to person, place and time, Appropriate affect Intact judgement Neuro: Muscles Strength 5/5 in all 4 extremities, Sensation to light touch grossly present throughout, Cranial nerves II-XII grossly intact. No focal sensory deficits - Labs CBC & Chem 7: 03/11/19 09:29 03/12/19 06:58 Labs: Abnormal Lab Results - Last 24 Hours (Table) 03/12/19 Range/Units 06:58 BUN 55 H (7-17) mg/dL Creatinine 2.91 H (0.52-1.04) mg/dL Microbiology - Last 24 Hours (Table) 03/09/19 17:10 Blood Culture - Preliminary Blood No Growth after 48 hours Assessment and Plan Assessment: Generalized weakness * Resolving working with physical therapy Leukocytosis * Patient continues to be afebrile * White count trending down nicely continue empiric IV antibiotics with Rocephin * Blood cultures no growth 2 days * appreciate ID recs Previous Klebsiella oxytoca UTI * Urine culture no growth * History of recurrent UTIs has follow-up with urology next Wednesday * Consider prophylactic therapy for UTIs Acute on chronic diastolic CHF exacerbation * Repeat chest x-ray 03/10 yesterday showed resolved pulmonary edema , received single dose of IV Lasix 40 mg and 10 mg IV today * Continue metoprolol Anemia of chronic disease * Stable at baseline continue oral iron supplementation COPD * Stable without acute exacerbation Mild Hyperkalemia * Resolved 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 fib on DOAC with Eliquis * Continue amiodarone and metoprolol anticipated discharge 1- 2 days
--- NOTE | 2019-03-12 16:04 | PN ---
PROGRESS NOTE DATE OF SERVICE: 03/12/2019. REASON FOR FOLLOWUP: 1. Leukocytosis, question of UTI. 2. Antibiotic associated diarrhea. INTERVAL HISTORY: The patient is currently afebrile. Patient is breathing comfortably. The patient denies having any chest pain, cough. No nausea, vomiting, no abdominal pain. Did have an episode of diarrhea this morning. PHYSICAL EXAMINATION: Blood pressure 116/80 with a pulse of 74, temperature 98.1. She is 97% on room air. General description is a middle-aged female lying in bed in no distress. Respiratory system: Unlabored breathing, clear to auscultation anteriorly. Heart S1, S2. Regular rate and rhythm. ABDOMEN: Soft, no tenderness. LABS: BUN 55, creatinine is 2.91. CBC was not done today. Blood and urine cultures have been negative so far. DIAGNOSTIC IMPRESSION AND PLAN: Patient admitted to the hospital with generalized weakness, no energy. The patient did have positive urinalysis with concern for urinary tract infection. So far culture has been negative. Now the patient developing diarrhea, possibly antibiotic associated. We will discontinue the Zosyn, short course of oral Omnicef and continue with supportive care. If any worsening diarrhea, stool for C difficile will be checked and if positive, patient will be instructed to increase probiotic and yogurt intake. MMODL / IJN: [id number] /
[2019-03-12 16:17] LABS: Appearance,Urine Clear (Clear); Bacteria,Urine Rare /hpf; Bilirubin,Urine Negative (Negative); Blood,Urine Large (Negative); Color,Urine Yellow; Glucose,Urine (UA) Negative (Negative); Ketones,Urine Negative (Negative); Leukocyte Esterase,Urine Negative (Negative); Mucus,Urine Rare /hpf; Nitrite,Urine Negative (Negative); PH, Urine 6.5 (5.0-8.0); Protein,Urine 1+ (Negative); RBC,Urine 125 /hpf (0-5); Specific Gravity,Urine 1.011 (1.001-1.035); Squamous Epithelial Cell,Urine 3 /hpf (0-4); Urobilinogen,Urine <2.0 mg/dL (<2.0); WBC,Urine 4 /hpf (0-5)
[2019-03-12] MEDS ORDERED: CYCLOBENZAPRINE 5 MG TAB PO ONE (19:26)
[2019-03-12] MEDS: QUEtiapine 100 MG TAB PO SCH (21:42)
[2019-03-12] MEDS: MONTELUKAST 10 MG TAB PO SCH (21:42)
[2019-03-12] MEDS: PANTOPRAZOLE 40 MG TABLET PO SCH (21:42)
[2019-03-12] MEDS: FOLIC ACID 1 MG TAB PO SCH (21:42)
[2019-03-12] MEDS: CEFDINIR 300 MG CAP PO SCH (21:42)
[2019-03-12] MEDS: ATORVASTATIN 20 MG TAB PO SCH (21:42)
[2019-03-13] MEDS: IPRATROPIUM-ALBUTEROL 3 ML NEB INHALATION SCH ×5 (03:03→20:58)
[2019-03-13] MEDS: SODIUM CHLORIDE 0.9% 1,000 ML IV SCH (04:01)
[2019-03-13] MEDS: LEVOTHYROXINE 88 MCG TAB PO SCH (05:24)
[2019-03-13 07:08] LABS: Calcium 8.8 mg/dL (8.4-10.2); Potassium 4.3 mmol/L (3.5-5.1)
[2019-03-13] MEDS: SERTRALINE 100 MG TAB PO SCH (09:34)
[2019-03-13] MEDS: AMIODARONE 200 MG TAB PO SCH (09:34)
[2019-03-13] MEDS: METOPROLOL TARTRATE 12.5 MG TAB PO SCH ×2 (09:34→21:04)
[2019-03-13] MEDS: APIXABAN 5 MG TAB PO SCH ×2 (09:35→21:04)
[2019-03-13] MEDS: ASPIRIN 81 MG PO SCH (09:35)
[2019-03-13] MEDS: CEFDINIR 300 MG CAP PO SCH ×2 (09:35→21:04)
[2019-03-13] MEDS: FERROUS SULFATE 325 MG TAB PO SCH ×2 (09:35→21:05)
--- NOTE | 2019-03-13 11:16 | US ---
EXAMINATION TYPE: US kidneys/renal and bladder DATE OF EXAM: 03/13/2019 COMPARISON: 02/26/2019 CLINICAL HISTORY: Hematuria . Patient states having generalized pain. EXAM MEASUREMENTS: Right Kidney: 9.1 x 3.2 x 4.2 cm Left Kidney: 9.5 x 3.7 x 4.0 cm Right Kidney: No hydronephrosis or masses seen. Left Kidney: No hydronephrosis or masses seen. Bladder: Moderately distended. Anechoic. Urinary bladder wall thickness is mildly thickened measurin g 4 mm that could relate to incomplete distention or cystitis. Bilateral Jets not seen There is no evidence for hydronephrosis at this point in time. No nephrolithiasis is seen. No booker s are identified. The urinary bladder is anechoic. Bilateral ureteral jets are not seen. IMPRESSION: 1. Mild urinary bladder wall thickening could relate to cystitis or incomplete distention. Correlatio n with urinalysis is recommended. 2. No hydronephrosis or nephrolithiasis of either kidney.
[2019-03-13] MEDS: ALPRAZolam 0.5 MG TAB PO PRN (14:41)
--- NOTE | 2019-03-13 18:43 | PN ---
PROGRESS NOTE The patient is seen for followup for acute kidney injury. Her renal function continues to improve. Creatinine is down to 2.4 from peak of 3.0 mg/dL. The patient is currently maintained on IV fluids at 75 mL an hour. PHYSICAL EXAMINATION: On examination today, blood pressure was 129/74, heart rate is 72 per minute, patient is afebrile. Examination of the heart S1, S2. Examination of the lungs, bilateral breath sounds are heard. Decreased breath sounds at bases. Abdomen is soft, nontender. Examination of lower extremities shows no significant edema. LABS: Show sodium 140, potassium 4.3, chloride 109, BUN 42, creatinine 2.4 mg/dL. ASSESSMENT: 1. Acute kidney injury, nonoliguric, mainly ischemic acute tubular necrosis, currently improving. 2. Chronic kidney disease stage 3 secondary to nephrosclerosis. Baseline creatinine 1.4-1.8 mg/dL. 3. Atrial fibrillation with controlled ventricular response, maintained on anticoagulation. 4. Diastolic congestive heart failure, currently compensated. 5. Hypothyroidism. PLAN: Continue to encourage increased oral intake. Repeat labs in a.m. Avoid nephrotoxic agents. MMODL / IJN: [id number] /
[2019-03-13] MEDS: ATORVASTATIN 20 MG TAB PO SCH (21:04)
[2019-03-13] MEDS: QUEtiapine 100 MG TAB PO SCH (21:04)
[2019-03-13] MEDS: FOLIC ACID 1 MG TAB PO SCH (21:04)
[2019-03-13] MEDS: PANTOPRAZOLE 40 MG TABLET PO SCH (21:04)
[2019-03-13] MEDS: MONTELUKAST 10 MG TAB PO SCH (21:05)
--- NOTE | 2019-03-13 23:51 | PN ---
PROGRESS NOTE DATE OF SERVICE: 03/13/2019. REASON FOR FOLLOWUP: Leukocytosis and urinary tract infection. INTERVAL HISTORY: The patient is currently afebrile. Patient has been breathing comfortably. The patient denies having any chest pain or any cough. No nausea, vomiting. No abdominal pain no diarrhea. PHYSICAL EXAMINATION: Blood pressure is 134/64 with a pulse of 73, temperature 98.4. She is 97% on room air. General description is a middle-aged female lying in bed in no distress. Respiratory system: Unlabored breathing, clear to auscultation anteriorly. Heart S1, S2. Regular rate and rhythm. ABDOMEN: Soft, no tenderness. EXTREMITIES: No edema of the feet. LABS: Hemoglobin is 9 with white count 9.5. BUN of 42, creatinine 2.44. Blood and urine cultures have been negative. Repeat urine is not significantly positive. DIAGNOSTIC IMPRESSION/PLAN: The patient admitted to the hospital with generalized weakness in this patient who did have a component of dehydration urinary tract infection and she did have positive urinalysis, and elevated white count though cultures came back negative. The patient underlying urinary tract infection has been adequately treated. I recommend discontinuing vanco on discharge and monitor her clinical course closely. MMODL / IJN: [id number] /
[2019-03-14 02:56] VITALS: TEMP 98.2
[2019-03-14] MEDS: IPRATROPIUM-ALBUTEROL 3 ML NEB INHALATION SCH ×4 (04:01→12:12)
[2019-03-14] MEDS: LEVOTHYROXINE 88 MCG TAB PO SCH (05:24)
[2019-03-14] MEDS: SODIUM CHLORIDE 0.9% 1,000 ML IV SCH ×2 (05:25→09:12)
[2019-03-14] MEDS: SERTRALINE 100 MG TAB PO SCH (09:11)
[2019-03-14] MEDS: CEFDINIR 300 MG CAP PO SCH (09:11)
[2019-03-14] MEDS: ASPIRIN 81 MG PO SCH (09:11)
[2019-03-14] MEDS: AMIODARONE 200 MG TAB PO SCH (09:11)
[2019-03-14] MEDS: APIXABAN 5 MG TAB PO SCH (09:11)
[2019-03-14] MEDS: METOPROLOL TARTRATE 12.5 MG TAB PO SCH (09:11)
[2019-03-14] MEDS: FERROUS SULFATE 325 MG TAB PO SCH (09:12)
--- NOTE | 2019-03-14 09:34 | P.DS ---
Providers Date of admission: 03/09/19 16:11 Expected date of discharge: 03/14/19 Attending physician: Mirza Sepulveda MD Consults: 03/09/19 16:09 Consult Physician Routine Consulting Provider: Edgar Herrera Consult Reason/Comments: possible sepsis, h/o ESBL UTI Do you want consulting provider notified?: Yes 03/11/19 12:58 Consult Physician Routine Consulting Provider: Zelda Schmitt Consult Reason/Comments: BEHZAD on CKD Do you want consulting provider notified?: Yes [facility]: 63-year-old female with a past focal history of pneumonia registered failure requiring tracheostomy and history of recurrent UTIs that presented with confusion and general weakness, was admitted for acute metabolic encephalopathy secondary to UTI. Workup included which initially showed mild pulmonary edema, patient was treated with IV Lasix and follow-up chest x-ray was clear. Due to that she was thought to have acute exacerbation of chronic diastolic congestive heart failure. [place] [address] but remained afebrile, she was initiated on empiric IV antibiotic regimen with Zosyn given her history of recurrent ESBL UTIs. Infectious diseases was consulted and the patient was continued on zosyn, with this therapy her white count resolved. In addition she was noted to have a slight upward bump in her creatinine from baseline of 1.4-1.8 to 2.4. She was treated with IV fluids, seen by nephrology was thought that she could have ATN. Ultrasound of the kidneys was done and that did not reveal any hydronephrosis. Urine cultures remained with no growth. ID switch her antibiotics from Zosyn to Omnicef. Patient continues to have hematuria on her urinalysis even after several days of treatment with IV antibiotics, because of that she will be referred to urology after discharge. He was also instructed to follow up with nephrology as well. She will be discharged home in a stable condition. She is currently ambulating without any issues. Hospice will also be consulted when patient goes home. Time for discharge 35 minutes. Plan - Discharge Summary Discharge Rx Participant: Yes New Discharge Prescriptions: New Cefdinir [Omnicef] 300 mg PO BID 4 Days #8 cap Continue Nitroglycerin Sl Tabs [Nitrostat] 0.4 mg SUBLINGUAL Q5M PRN PRN Reason: Chest Pain Omeprazole 20 mg PO HS #0 QUEtiapine [SEROquel] 100 mg PO HS #2 tab Montelukast [Singulair] 10 mg PO HS@2000 #0 Torsemide [Demadex] 10 mg PO BID #0 Amiodarone [Cordarone] 200 mg PO DAILY Apixaban [Eliquis] 5 mg PO BID Aspirin 81 mg PO DAILY Folic Acid 1 mg PO HS Sertraline HCl [Zoloft] 100 mg PO DAILY traMADol HCl [Ultram] 50 mg PO BID PRN #4 tab PRN Reason: Mild To Moderate Pain Metoprolol Tartrate [Lopressor] 25 mg PO Q12H Ipratropium-Albuterol Nebulize [Duoneb 0.5 mg-3 mg/3 ml Soln] 3 ml INHALATION RT-QID PRN PRN Reason: Shortness Of Breath Albuterol Inhaler [Ventolin Hfa Inhaler] 1 - 2 puff INHALATION RT-Q6H PRN PRN Reason: Shortness Of Breath Levothyroxine Sodium [Synthroid] 88 mcg PO DAILY Ferrous Sulfate [Iron (65 MG Elemental)] 325 mg PO BID #60 tab Atorvastatin [Lipitor] 20 mg PO HS ALPRAZolam [Xanax] 0.5 mg PO TID Discharge Medication List Nitroglycerin Sl Tabs [Nitrostat] 0.4 mg SUBLINGUAL Q5M PRN 12/29/13 [History] Montelukast [Singulair] 10 mg PO HS@2000 #0 12/06/18 [Rx] Omeprazole 20 mg PO HS #0 12/06/18 [Rx] QUEtiapine [SEROquel] 100 mg PO HS #2 tab 12/06/18 [Rx] Torsemide [Demadex] 10 mg PO BID #0 12/06/18 [Rx] Amiodarone [Cordarone] 200 mg PO DAILY 12/22/18 [History] Apixaban [Eliquis] 5 mg PO BID 12/22/18 [History] Aspirin 81 mg PO DAILY 12/22/18 [History] Folic Acid 1 mg PO HS 12/22/18 [History] Sertraline HCl [Zoloft] 100 mg PO DAILY 12/22/18 [History] traMADol HCl [Ultram] 50 mg PO BID PRN #4 tab 02/01/19 [Rx] Albuterol Inhaler [Ventolin Hfa Inhaler] 1 - 2 puff INHALATION RT-Q6H PRN 02/26/19 [History] Ipratropium-Albuterol Nebulize [Duoneb 0.5 mg-3 mg/3 ml Soln] 3 ml INHALATION RT-QID PRN 02/26/19 [History] Levothyroxine Sodium [Synthroid] 88 mcg PO DAILY 02/26/19 [History] Metoprolol Tartrate [Lopressor] 25 mg PO Q12H 02/26/19 [History] Ferrous Sulfate [Iron (65 MG Elemental)] 325 mg PO BID #60 tab 03/01/19 [Rx] ALPRAZolam [Xanax] 0.5 mg PO TID 03/09/19 [History] Atorvastatin [Lipitor] 20 mg PO HS 03/09/19 [History] Cefdinir [Omnicef] 300 mg PO BID 4 Days #8 cap 03/14/19 [Rx] Follow up Appointment(s)/Referral(s): Andre Alejandre MD [STAFF PHYSICIAN] - 1 Week [facility], [NON-STAFF] - Stanislav Sanchez DO [STAFF PHYSICIAN] - 1 Week Lia Middleton MD [Primary Care Provider] - 1-2 days Activity/Diet/Wound Care/Special Instructions: [facility] will provide Palliative Care in addition to prison, PT, OT, and a home health aide.
[2019-03-14 10:23] VITALS: BP 119/69; PULSE 74; RESP 16
--- NOTE | 2019-03-14 12:54 | PN ---
PROGRESS NOTE DATE OF SERVICE: 03/14/2019 REASON FOR FOLLOWUP: Leukocytosis and possible UTI. INTERVAL HISTORY: The patient is currently afebrile. Patient has been breathing comfortably. The patient denies having any chest pain or shortness of breath or cough. No nausea, vomiting. No abdominal pain or diarrhea. PHYSICAL EXAMINATION: Blood pressure 119/69 with the pulse of 74, temperature 98.2. She is 97% on room air room. General description is a middle-aged female up in the bed in no distress. RESPIRATORY SYSTEM: Unlabored breathing, clear to auscultation anteriorly. HEART: S1, S2. Regular rate and rhythm. ABDOMEN: Soft, no tenderness. LABS: BUN of 42, creatinine 2.44, as of yesterday, not repeated since then. DIAGNOSTIC IMPRESSION AND PLAN: Patient admitted to the hospital with leukocytosis, positive with concern for urinary tract infection. Cultures so far negative. On Omnicef, may consider short course and close outpatient followup. MMODL / IJN: [id number] /
--- NOTE | 2019-03-14 19:24 | PN ---
PROGRESS NOTE The patient is seen for followup for acute kidney injury. Her renal function continues to improve. Creatinine is down to 2.4 from 3.0 at peak. PHYSICAL EXAMINATION: This morning, patient is comfortable. Blood pressure 119/69, heart rate 74 per minute. She is afebrile. Examination of the heart S1, S2. Examination of the lungs, decreased breath sounds at bases. Abdomen is soft, nontender. Examination of lower extremities shows no significant edema. LABS: Sodium 140, potassium 4.3, BUN 42, creatinine 2.4. ASSESSMENT: 1. Acute kidney injury, nonoliguric, currently improving, mainly ischemic acute tubular necrosis. 2. Chronic kidney disease stage 3 secondary to nephrosclerosis. Baseline creatinine 1.4-1.8 mg/dL. 3. Atrial fibrillation with controlled ventricular response. 4. Diastolic congestive heart failure. 5. Hypothyroidism. PLAN: Follow up as outpatient. Okay for discharge from Nephrology standpoint. Continue to avoid NSAIDs. MMODL / IJN: [id number] /
[2019-03-15] MEDS ORDERED: CEFDINIR 300 MG CAP PO SCH (09:00)
== END 2019-03-14 13:01 | disposition home health service (06) | DRG 291 ==
LOC: EC 13:18 → 4SSUR 16:11
PROVIDERS: ADMIT Family Medicine; ATTEND Family Medicine
DX: I13.0 Hypertensive heart and chronic kidney disease with heart failure and stage 1 through stage 4 chronic kidney disease, or unspecified chronic kidney disease (principal); G93.41 Metabolic encephalopathy; I50.33 Acute on chronic diastolic (congestive) heart failure; N17.0 Acute kidney failure with tubular necrosis; K52.1 Toxic gastroenteritis and colitis; N18.4 Chronic kidney disease, stage 4 (severe); N39.0 Urinary tract infection, site not specified; Z16.12 Extended spectrum beta lactamase (ESBL) resistance; Z16.22 Resistance to vancomycin related antibiotics; D63.1 Anemia in chronic kidney disease; E03.9 Hypothyroidism, unspecified; E78.5 Hyperlipidemia, unspecified; E87.5 Hyperkalemia; E88.89 Other specified metabolic disorders; F31.9 Bipolar disorder, unspecified; F41.9 Anxiety disorder, unspecified; I25.10 Atherosclerotic heart disease of native coronary artery without angina pectoris; I48.0 Paroxysmal atrial fibrillation; J44.9 Chronic obstructive pulmonary disease, unspecified; T36.95XA Adverse effect of unspecified systemic antibiotic, initial encounter; Z79.01 Long term (current) use of anticoagulants; Z79.82 Long term (current) use of aspirin; Z79.890 Hormone replacement therapy; Z79.899 Other long term (current) drug therapy; Z86.14 Personal history of Methicillin resistant Staphylococcus aureus infection; Z86.718 Personal history of other venous thrombosis and embolism; Z86.73 Personal history of transient ischemic attack (TIA), and cerebral infarction without residual deficits; Z86.74 Personal history of sudden cardiac arrest; Z87.01 Personal history of pneumonia (recurrent); Z87.440 Personal history of urinary (tract) infections; Z87.891 Personal history of nicotine dependence; Z90.710 Acquired absence of both cervix and uterus; Z95.5 Presence of coronary angioplasty implant and graft; Z88.1 Allergy status to other antibiotic agents; Z88.2 Allergy status to sulfonamides; Z90.49 Acquired absence of other specified parts of digestive tract
CPT/HCPCS: 36415; 71046; 76770; 80048; 80053; 81001; 82550; 83605; 83735; 83880; 84100; 84484; 85025; 85610; 85652; 85730; 86140; 87040; 87086; 93005; 94640; 94760; 96374; 99285

== ENCOUNTER 2019-04-16 09:51 | Inpatient (IN) | payer OTHER ==
[2019-04-16] MEDS ORDERED: ONDANSETRON 4 MG/2 ML VIAL IVP STA (10:30)
[2019-04-16] MEDS ORDERED: MORPHINE SULFATE 2 MG/ML SYRINGE IVP STA (10:30)
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
[2019-04-16 11:11] LABS: Basophils # (A) 0.2 k/uL (0-0.2); Basophils % (A) 1 %; Eosinophils # (A) 0.2 k/uL (0-0.7); Eosinophils % (A) 1 %; HCT 36.2 % (34.0-46.0); HGB 11.6 gm/dL (11.4-16.0); Lymphocytes # (A) 1.1 k/uL (1.0-4.8); Lymphocytes % (A) 7 %; MCV 93.9 fL (80.0-100.0); Mean Platelet Volume 7.3; Monocytes # (A) 0.5 k/uL (0-1.0); Monocytes % (A) 3 %; Neutrophils # (A) 13.3 k/uL (1.3-7.7); Neutrophils % (A) 87 %; Platelet Count 236 k/uL (150-450); RBC 3.85 m/uL (3.80-5.40); RDW 14.1 % (11.5-15.5); WBC 15.4 k/uL (3.8-10.6)
[2019-04-16 11:22] LABS: Albumin 4.2 g/dL (3.5-5.0); Calcium 9.5 mg/dL (8.4-10.2); Magnesium 1.5 mg/dL (1.6-2.3); Potassium 4.1 mmol/L (3.5-5.1); Total Bilirubin 0.6 mg/dL (0.2-1.3); Total Protein 8.6 g/dL (6.3-8.2)
[2019-04-16 11:37] LABS: INR 1.1 (<1.2); Partial Thromboplastin Time 29.3 sec (22.0-30.0); Prothrombin Time 11.1 sec (9.0-12.0)
--- NOTE | 2019-04-16 11:38 | CT ---
EXAMINATION TYPE: CT brain [facility] lewis con DATE OF EXAM: 04/16/2019 COMPARISON: Previous CT scan of the brain dated 02/25/2019 HISTORY: altered mental status, weakness, head injury CT DLP: 1312.2 mGycm Automated exposure control for dose reduction was used. TECHNIQUE: CT scan of the head and cervical spine are performed without contrast. FINDINGS: BRAIN: There are mild, generalized changes of sulcal prominence and ventriculomegaly, compatible with mild atrophic change. There is diffuse periventricular white matter lucency, compatible with small v essel ischemic change. There is no acute focal lesion, mass effect or midline shift identified. I do not see evidence of intracranial blood. There is chronic mucoperiosteal thickening involving the maxillary, ethmoidal and left sphenoid sinus es. The mastoids are clear. The bony calvarium is intact. IMPRESSION: 1. NO ACUTE INTRACRANIAL ABNORMALITY. 2. ATROPHIC CHANGE. 3. CHRONIC ISCHEMIC CHANGE. 4. CHRONIC SINUS MUCOSAL DISEASE. CERVICAL SPINE: There are emphysematous changes throughout the visualized portion of the lungs. Prevertebral soft tissues are normal. Vertebral body height and alignment are maintained. Atlantoaxial relationships are normal. There is a n incomplete arch of C1. There is no significant degenerative change. There is no definite protrusion. No acute fracture is se en. IMPRESSION: 1. INCOMPLETE ARCH OF C1, A NORMAL VARIANT. 2. NO ACUTE OSSEOUS LESION.
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
--- NOTE | 2019-04-16 11:42 | XR ---
EXAMINATION TYPE: XR chest 2V DATE OF EXAM: 04/16/2019 HISTORY: Weakness. REFERENCE: Previous study dated 03/10/2019. FINDINGS: Lung volumes are prominent. The heart is enlarged. Lungs are clear. Pleural spaces are delmer r. IMPRESSION: 1. COPD. 2. CARDIOMEGALY.
[2019-04-16 12:25] LABS: Appearance,Urine Clear (Clear); Bacteria,Urine Rare /hpf; Bilirubin,Urine Negative (Negative); Blood,Urine Moderate (Negative); Budding Yeast,Urine Occasional /hpf; Color,Urine Yellow; Glucose,Urine (UA) Negative (Negative); Hyaline Casts,Urine 1 /lpf (0-2); Ketones,Urine Negative (Negative); Leukocyte Esterase,Urine Trace (Negative); Mucus,Urine Rare /hpf; Nitrite,Urine Negative (Negative); PH, Urine 5.5 (5.0-8.0); Protein,Urine 1+ (Negative); RBC,Urine >182 /hpf (0-5); Specific Gravity,Urine 1.011 (1.001-1.035); Squamous Epithelial Cell,Urine <1 /hpf (0-4); Urobilinogen,Urine <2.0 mg/dL (<2.0); WBC,Urine 3 /hpf (0-5)
[2019-04-16] MEDS ORDERED: NALOXONE 0.4 MG/ML 1 ML VIAL IV PRN (13:20)
[2019-04-16] MEDS ORDERED: HYDROcodone/APAP 5-325MG 1 EACH TAB PO PRN (13:20)
[2019-04-16] MEDS ORDERED: ONDANSETRON 4 MG/2 ML VIAL IVP PRN (13:20)
[2019-04-16] MEDS ORDERED: MORPHINE SULFATE 4 MG/ML SYRINGE IV PRN (13:20)
[2019-04-16] MEDS: IPRATROPIUM-ALBUTEROL 3 ML NEB INHALATION SCH ×2 (16:22→19:55)
[2019-04-16] MEDS ORDERED: IPRATROPIUM-ALBUTEROL 3 ML NEB INHALATION PRN (16:39)
[2019-04-16] MEDS ORDERED: ALBUTEROL NEBULIZED 2.5 MG/3 ML INHALATION PRN (16:39)
[2019-04-16] MEDS ORDERED: ACETAMINOPHEN SUPPOSITORY 650 MG SUPP RECTAL PRN (16:39)
[2019-04-16] MEDS ORDERED: MORPHINE SULFATE 2 MG/ML SYRINGE IV PRN (16:41)
[2019-04-16] MEDS ORDERED: FLUCONAZOLE IN NACL,ISO-OSM 100 MG in SALINE 1 50ML.BAG IVPB STA (16:46)
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
[2019-04-16] MEDS: SODIUM CHLORIDE 0.9% 1,000 ML IV SCH (17:35)
[2019-04-16] MEDS: MAGNESIUM SULFATE-D5W PMX 1 GM in DEXTROSE/WATER 1 100ML.BAG IVPB SCH ×3 (17:38→20:15)
[2019-04-16] MEDS: APIXABAN 5 MG TAB PO SCH (18:35)
[2019-04-16] MEDS: MONTELUKAST 10 MG TAB PO SCH (18:35)
[2019-04-16] MEDS: ATORVASTATIN 20 MG TAB PO SCH (18:35)
[2019-04-16] MEDS: METOPROLOL TARTRATE 25 MG TAB PO SCH (18:36)
[2019-04-16] MEDS: FERROUS SULFATE 325 MG TAB PO SCH (18:36)
[2019-04-16] MEDS: PANTOPRAZOLE 40 MG TABLET PO SCH (18:36)
[2019-04-16] MEDS ORDERED: QUEtiapine 100 MG TAB PO SCH (21:00)
[2019-04-16] MEDS: PIPERACILLIN-TAZOBACTAM 3.375 GM in SODIUM CHLORIDE 0.9% 100 ML IVPB SCH (21:24)
[2019-04-17] MEDS: SODIUM CHLORIDE 0.9% 1,000 ML IV SCH ×2 (00:07→09:35)
[2019-04-17] MEDS: IPRATROPIUM-ALBUTEROL 3 ML NEB INHALATION SCH ×6 (01:24→21:50)
[2019-04-17] MEDS: LEVOTHYROXINE 88 MCG TAB PO SCH (05:38)
[2019-04-17] MEDS ORDERED: TORSEMIDE 20 MG TAB PO SCH (09:00)
[2019-04-17] MEDS: PIPERACILLIN-TAZOBACTAM 3.375 GM in SODIUM CHLORIDE 0.9% 100 ML IVPB SCH ×2 (09:29→21:54)
[2019-04-17] MEDS: AMIODARONE 200 MG TAB PO SCH (09:31)
[2019-04-17] MEDS: APIXABAN 5 MG TAB PO SCH (09:31)
[2019-04-17] MEDS: ASPIRIN 81 MG PO SCH (09:31)
[2019-04-17] MEDS: FERROUS SULFATE 325 MG TAB PO SCH ×2 (09:31→21:53)
[2019-04-17] MEDS: SERTRALINE 100 MG TAB PO SCH (09:31)
[2019-04-17] MEDS: METOPROLOL TARTRATE 25 MG TAB PO SCH ×2 (09:31→21:52)
--- NOTE | 2019-04-17 10:07 | P.PN ---
Subjective Principal diagnosis: generalized weakness Summary: Patient was admitted with generalized weakness. Per family on patient had trial of void and cystoscopy at urologist office. She was placed on Myrbetric and discharged home. She was acute night but for Wednesday started feeling very weak with malaise and low energy level. She was so weak she was not able to get up from the toilet. Patient baseline status is walking with a walker. She did not notice any subjective fevers chills or rigors. She reports wet sounding cough no expectoration no difficulties in breathing no sore throat nasal congestion. Per family she was exposed to influenza B as her grandkids were diagnosed with this recently. She also has some low back pain that per patient been there for a while. No leg weakness or paresthesia. No radiation of the pain. No particular pattern of the pain. Otherwise denies any confusion hallucinations headache vision changes. On admission blood work was significant for viable cell count of 15 and significant hematuria. She did not have any pyuria or leukocyte esterase. Chest x-ray shows COPD with any acute infiltrates. Lumbar x-ray did not show any fractures or bony lesions. EKG showed normal sinus rhythm. Patient was started on IV fluids and Zosyn and admitted for further evaluation. Home medications include Demadex, Seroquel, Xanax, Zoloft, levothyroxine, amiodarone, metoprolol, Eliquis, aspirin Interval history: Patient today appears slightly fatigued but per family patient she is appearing much better. She was ambulating in the foy with physical occupational therapy and overall energy level is much better.She reports that her appetite has been improving and she's feeling much better. Objective - Vital Signs Vital signs: Vital Signs Temp 99.2 F 04/17/19 04:11 Pulse 88 04/17/19 08:31 Resp 20 04/17/19 08:00 BP 113/71 04/17/19 04:11 Pulse Ox 100 04/17/19 08:23 Intake & Output 04/16/19 04/17/19 04/17/19 18:59 06:59 18:59 Weight 65.771 kg Other: # Voids 2 2 - Exam Vital Signs: I have reviewed the vital signs. GENERAL: no apparent distress, cooperative Eyes: PERRL, extraoculry movements intact, clear conjunctiva Head: : Atraumatic external nose and ears, oropharyngeal mucosa is moist without lesions or exudates Neck: Symmetric, trachea midline, No thyromegaly, no masses or neck vain pulsation, no neck rigidity CVS: +S1/S2, No murmurs or gallops. Peripheral pulses 2+ and equal in all extre mities. RESP: Unlabored respiratory effort. breath sounds are diminished bilaterally with only occasional expiratory wheezes. Abdomen: Bowel sounds present in all 4 quadrants, Soft to palpation, Nontender/Nondistended, No hepatosplenomegaly, no hernias or masses, no CVA tnderness Musculoskeletal: Extremities w/o deformity, No cyanosis or clubbing, no joint swelling Skin: Warm, Dry. 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 grossly intact, motor strenght 5/5 i upper and lower extremities, no clonus, patellar DTRs 2+ and sympetrical Psych: Awake, Alert, & Oriented (AAO) x3 Appropriate mood and affect - Labs CBC & Chem 7: 04/16/19 10:45 04/16/19 10:45 Labs: Abnormal Lab Results - Last 24 Hours (Table) 04/16/19 04/16/19 04/16/19 Range/Units 10:45 10:45 11:42 WBC 15.4 H (3.8-10.6) k/uL Neutrophils # 13.3 H (1.3-7.7) k/uL BUN 31 H (7-17) mg/dL Creatinine 2.36 H (0.52-1.04) mg/dL Magnesium 1.5 L (1.6-2.3) mg/dL AST 44 H (14-36) U/L Alkaline Phosphatase 141 H (38-126) U/L Creatine Kinase 21 L (30-135) U/L Total Protein 8.6 H (6.3-8.2) g/dL Procalcitonin (0.02-0.09) ng/mL Urine Protein 1+ H (Negative) Urine Blood Moderate H (Negative) Ur Leukocyte Esterase Trace H (Negative) Urine RBC >182 H (0-5) /hpf Urine Bacteria Rare H (None) /hpf Urine Mucus Rare H (None) /hpf Urine Yeast (Budding) Occasional H (None) /hpf 04/16/19 Range/Units 17:19 WBC (3.8-10.6) k/uL Neutrophils # (1.3-7.7) k/uL BUN (7-17) mg/dL Creatinine (0.52-1.04) mg/dL Magnesium (1.6-2.3) mg/dL AST (14-36) U/L Alkaline Phosphatase (38-126) U/L Creatine Kinase (30-135) U/L Total Protein (6.3-8.2) g/dL Procalcitonin 0.29 H (0.02-0.09) ng/mL Urine Protein (Negative) Urine Blood (Negative) Ur Leukocyte Esterase (Negative) Urine RBC (0-5) /hpf Urine Bacteria (None) /hpf Urine Mucus (None) /hpf Urine Yeast (Budding) (None) /hpf Assessment and Plan Plan: 1. Generalized weakness Patient with multiple medical problems and recent prolonged ICU stay due to MRSA pneumonia presenting with symptoms of generalized weakness and malaise and leukocytosis after recent urological procedure starting a new medication On the focal symptoms include respiratory tract with possible acute bronchitis and low back pain subacute to chronic in nature Neurological exam is nonfocal plan: Septic workup Hold diuretics Gentle hydration Hold Myrbetric Hold Seroquel TSH Infection disease consultation Check sedimentation rate, CRP, pro-calcitonin Check influenza If inflammatory markers elevated consider MRI of the lumbar spine 2. Hematuria needs investigation urology consultation consider urine sediment 3. CKD stage 3 stable euvolemic 4. Hypomagnesemia replace mg 5. History of atrial fibrillation now in NSR Currently on the Eliquis, Amiodarone, Metorpolol 6. Hypothryoidism TSH pending
[2019-04-17 11:11] LABS: HCT 29.3 % (34.0-46.0); MCH 30.5 pg (25.0-35.0); MCHC 31.5 g/dL (31.0-37.0); MCV 97.1 fL (80.0-100.0); Mean Platelet Volume 7.7; Platelet Count 179 k/uL (150-450); RBC 3.02 m/uL (3.80-5.40); RDW 13.9 % (11.5-15.5); WBC 12.5 k/uL (3.8-10.6)
[2019-04-17 11:18] LABS: HGB 9.2 gm/dL (11.4-16.0)
[2019-04-17 11:32] LABS: Calcium 8.5 mg/dL (8.4-10.2); Magnesium 2.6 mg/dL (1.6-2.3); Phosphorus 4.4 mg/dL (2.5-4.5); Potassium 4.2 mmol/L (3.5-5.1)
[2019-04-17 11:47] LABS: C Reactive Protein 254.7 mg/L (<10.0)
[2019-04-17] MEDS: MAGNESIUM SULFATE-D5W PMX 1 GM in DEXTROSE/WATER 1 100ML.BAG IVPB SCH ×2 (12:50→15:15)
[2019-04-17 13:32] LABS: Erythrocyte Sedimentation Rate 113 mm/hr (0-20)
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
--- NOTE | 2019-04-17 19:09 | CT ---
EXAMINATION TYPE: CT ChestAbdPelvis wo con DATE OF EXAM: 04/17/2019 COMPARISON: CT chest 08/22/2018 CT abdomen 07/27/2018 HISTORY: weakness, sepsis CT DLP: 612.7 mGycm Automated exposure control for dose reduction was used. There is extensive coarse interstitial density in the lungs with mild pulmonary emphysema. There is s mall right pleural effusion. There is 3.5 cm area of airspace consolidation right posterior lung base . Heart is enlarged. There is atherosclerotic vascular calcification. There are a few mediastinal enl arged lymph nodes that measure up to 1.5 cm. There are clips from cholecystectomy. Liver shows no focal defect. Spleen is intact. There is no panc reatic mass. There is mild hiatal hernia. The bile ducts are not dilated. There is no adrenal mass. Kidneys show no hydronephrosis. Ureters are not dilated. There is no retrop eritoneal adenopathy. There are numerous sigmoid diverticula. There is no diverticulitis. There is no evidence of a bowel obstruction. There is small amount of air in the urinary bladder prob ably from catheterization. There is no free fluid in the pelvis. There is no pelvic mass. Appendix is not seen. There is no sign of thickened appendix. Thoracic and lumbar vertebra have normal spacing. There is no compression fracture. The bony pelvis a ppears intact. IMPRESSION: Pulmonary interstitial fibrosis and emphysema. There is significant clearing of the diffuse pulmonary infiltrates compared to old exam. There is residual airspace consolidation right lower lobe likely r elated to inflammatory disease. There is increased right pleural fluid compared to old exam. Cardiome trev. Atherosclerotic vascular disease. Sigmoid diverticulosis without diverticulitis. There is significant clearing of the subcutaneous hematoma over the left posterior pelvis compared to old exam.
[2019-04-17 20:01] LABS: Protein/Creatinine Ratio,Urine 1.4
[2019-04-17 21:12] LABS: HCT 25.8 % (34.0-46.0); HGB 8.3 gm/dL (11.4-16.0); MCH 30.8 pg (25.0-35.0); MCHC 32.1 g/dL (31.0-37.0); MCV 95.9 fL (80.0-100.0); Mean Platelet Volume 7.9; Platelet Count 185 k/uL (150-450); RBC 2.69 m/uL (3.80-5.40); RDW 14.1 % (11.5-15.5)
[2019-04-17] MEDS: PANTOPRAZOLE 40 MG TABLET PO SCH (21:52)
[2019-04-17] MEDS: ATORVASTATIN 20 MG TAB PO SCH (21:52)
[2019-04-17] MEDS: MONTELUKAST 10 MG TAB PO SCH (21:53)
[2019-04-18] MEDS: IPRATROPIUM-ALBUTEROL 3 ML NEB INHALATION SCH ×7 (00:24→23:13)
[2019-04-18] MEDS: LEVOTHYROXINE 88 MCG TAB PO SCH (06:20)
[2019-04-18] MEDS: METOPROLOL TARTRATE 25 MG TAB PO SCH ×2 (08:21→22:02)
[2019-04-18] MEDS: ASPIRIN 81 MG PO SCH (08:21)
[2019-04-18] MEDS: SERTRALINE 100 MG TAB PO SCH (08:22)
[2019-04-18] MEDS: AMIODARONE 200 MG TAB PO SCH (08:22)
[2019-04-18] MEDS: FERROUS SULFATE 325 MG TAB PO SCH ×2 (08:22→22:02)
[2019-04-18] MEDS: PIPERACILLIN-TAZOBACTAM 3.375 GM in SODIUM CHLORIDE 0.9% 100 ML IVPB SCH ×2 (08:22→22:06)
[2019-04-18 08:45] LABS: Free Kappa Lt Chain Qnt, Serum 22.4 mg/dL (0.33-1.94)
[2019-04-18 08:45] LABS: Free Kappa Lt Chain Qnt, Urine 62.6 mg/dL (0.140-2.420); Free Lambda Lt Chain Qt, Urine 12.4 mg/dL (0.020-0.670)
[2019-04-18 08:47] LABS: HCT 29.1 % (34.0-46.0); HGB 9.4 gm/dL (11.4-16.0); MCHC 32.1 g/dL (31.0-37.0); MCV 96.6 fL (80.0-100.0); Mean Platelet Volume 8.2; Platelet Count 211 k/uL (150-450); RBC 3.02 m/uL (3.80-5.40); WBC 8.7 k/uL (3.8-10.6)
--- NOTE | 2019-04-18 09:05 | P.PN ---
Subjective Principal diagnosis: generalized weakness Summary: Patient was admitted with generalized weakness. Per family on patient had trial of void and cystoscopy at urologist office. She was placed on Myrbetric and discharged home. She was acute night but for Wednesday started feeling very weak with malaise and low energy level. She was so weak she was not able to get up from the toilet. Patient baseline status is walking with a walker. She did not notice any subjective fevers chills or rigors. She reports wet sounding cough no expectoration no difficulties in breathing no sore throat nasal congestion. Per family she was exposed to influenza B as her grandkids were diagnosed with this recently. She also has some low back pain that per patient been there for a while. No leg weakness or paresthesia. No radiation of the pain. No particular pattern of the pain. Otherwise denies any confusion hallucinations headache vision changes. On admission blood work was significant for viable cell count of 15 and significant hematuria. She did not have any pyuria or leukocyte esterase. Chest x-ray shows COPD with any acute infiltrates. Lumbar x-ray did not show any fractures or bony lesions. EKG showed normal sinus rhythm. Patient was started on IV fluids and Zosyn and admitted for further evaluation. Home medications include Demadex, Seroquel, Xanax, Zoloft, levothyroxine, a miodarone, metoprolol, Eliquis, aspirin Interval history: No changes over night. Blood work showed stuggering CRP of [address] chest abd pelvis showed posterior RLL pneumonia. Objective - Vital Signs Vital signs: Vital Signs Temp 97.8 F 04/18/19 05:05 Pulse 76 04/18/19 05:05 Resp 16 04/18/19 05:05 BP 100/63 04/18/19 05:05 Pulse Ox 94 L 04/18/19 05:05 Intake & Output 04/17/19 04/18/19 04/18/19 18:59 06:59 18:59 Intake Total 540 Balance 540 Intake: Oral 540 Other: # Voids 1 2 - Exam Vital Signs: I have reviewed the vital signs. GENERAL: no apparent distress, cooperative Eyes: PERRL, extraoculry movements intact, clear conjunctiva Head: : Atraumatic external nose and ears, oropharyngeal mucosa is moist without lesions or exudates Neck: Symmetric, trachea midline, No thyromegaly, no masses or neck vain pulsation, no neck rigidity CVS: +S1/S2, No murmurs or gallops. Peripheral pulses 2+ and equal in all extremities. RESP: Unlabored respiratory effort. breath sounds are diminished bilaterally with only occasional expiratory wheezes. Abdomen: Bowel sounds present in all 4 quadrants, Soft to palpation, Nontender/Nondistended, No hepatosplenomegaly, no hernias or masses, no CVA tnderness Musculoskeletal: Extremities w/o deformity, No cyanosis or clubbing, no joint swelling Skin: Warm, Dry. 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, motor strenght 5/5 i upper and lower extremities, no clonus, patellar DTRs 2+ and sympetrical Psych: Awake, Alert, & Oriented (AAO) x3 Appropriate mood and affect - Labs CBC & Chem 7: 04/18/19 07:56 04/17/19 10:38 Labs: Abnormal Lab Results - Last 24 Hours (Table) 04/16/19 04/17/19 04/17/19 Range/Units 17:19 10:38 10:38 WBC 12.5 H (3.8-10.6) k/uL RBC 3.02 L (3.80-5.40) m/uL Hgb 9.2 L D (11.4-16.0) gm/dL Hct 29.3 L (34.0-46.0) % ESR 113 H (0-20) mm/hr BUN 28 H (7-17) mg/dL Creatinine 2.24 H (0.52-1.04) mg/dL Glucose 167 H (74-99) mg/dL Magnesium 2.6 H (1.6-2.3) mg/dL C-Reactive Protein 254.7 H (<10.0) mg/L Procalcitonin 0.29 H (0.02-0.09) ng/mL Free Lambda LC, Quant (0.57-2.63) mg/dL 04/17/19 04/17/19 Range/Units 20:46 20:46 WBC (3.8-10.6) k/uL RBC 2.69 L (3.80-5.40) m/uL Hgb 8.3 L (11.4-16.0) gm/dL Hct 25.8 L (34.0-46.0) % ESR (0-20) mm/hr BUN (7-17) mg/dL Creatinine (0.52-1.04) mg/dL Glucose (74-99) mg/dL Magnesium (1.6-2.3) mg/dL C-Reactive Protein (<10.0) mg/L Procalcitonin (0.02-0.09) ng/mL Free Lambda LC, Quant 8.32 H (0.57-2.63) mg/dL Microbiology - Last 24 Hours (Table) 04/16/19 17:49 Blood Culture - Preliminary Blood No Growth after 24 hours 04/16/19 17:19 Blood Culture - Preliminary Blood No Growth after 24 hours Assessment and Plan Plan: 1. Generalized weakness suspect due to pneumonia, sepsis and COPD exacerbation reported severeal sick contacts CT chest showed RLL pneumonia/infiltarte, not present on previous Ct chest inflammatory markers and procalcitonin elevated Influenza negative wonder if pt had aspiration event especially given that symptoms started after recent cystoscopy she also had sick contacts rule out other potential sources Blood cx NGTD Clinically improving on Zosyn Zosyn day#2 ID consultation pulmonary toilet increase activity 2. COPD exacerbation acute tracheobronchitis severe emphysema steroids nebs 3. Acute hypoxic failure weaned of O2 4. Hematuria no pyuria no proteinuria imaging of urinary tract unremarkable normal cystoscopy per urology, no further plans for intervention IgA nephropathy? given concomitant respiratory illness obtain urine sediment nephrology consultation [facility] ratio pending 5. Anemia probably multifactorial, hydration etc except microscopic hemauria no other visible bleeding doubt hemolysis, bilirubin normal CT abd pelvis no hematoma hold eliquis for 24 hrs 6. CKD stage 3 renal function appears stable euvolemic may need to retart diuretics soon since received hydration for sepsis 7. Hypomagnesemia replace mg 8. History of atrial fibrillation now in NSR Currently on the Eliquis, Amiodarone, Metorpolol hold Eliquis for 24 hrs for now due to hematuria, falling Hb 9. Hypothryoidism TSH pending
[2019-04-18 09:20] LABS: Calcium 8.7 mg/dL (8.4-10.2); Magnesium 2.9 mg/dL (1.6-2.3); Potassium 4.1 mmol/L (3.5-5.1)
[2019-04-18] MEDS: methylPREDNISolone SOD SUCCI 40 MG/ML 1 ML VIAL IV SCH ×3 (09:26→23:53)
[2019-04-18] MEDS ORDERED: DARBEPOETIN ALFA 60 MCG/0.3 ML SYRINGE SQ SCH (12:45)
--- NOTE | 2019-04-18 13:16 | CONS ---
CONSULTATION REASON FOR CONSULT: Renal failure. HISTORY OF PRESENT ILLNESS: The patient is a 63-year-old female with history of chronic kidney disease stage 3 secondary to nephrosclerosis with baseline creatinine 1.4 to 1.8 mg/dL initially however lately staying at about 2.2 to 2.5 mg/dL. The patient was admitted to the hospital with complaints of weakness and inability to get up from the floor. The patient is currently maintained on empiric antibiotics for possible pneumonia. The patient's blood pressure was low on admission with systolic noted at 91 and 94 mmHg as well. Serum creatinine was 2.36. It is down to 2.1 mg/dL now. The patient also was recently evaluated by Urology as outpatient for urinary incontinence and was started on a trial of Myrbetriq as outpatient. She did have a cystoscopy done which was normal as outpatient. The patient is noted to have significant hematuria. Her kappa and lambda chains were also significantly elevated at 62 and 12.4 in the urine. PAST MEDICAL HISTORY: Significant for CKD, atrial fibrillation, asthma, COPD, CVA, TIA, history of DVT, hyperlipidemia, hypertension, hypothyroidism, history of closed head injury, history of MRSA pneumonia. PAST SURGICAL HISTORY: Appendectomy, cholecystectomy, cardiac catheterization, hysterectomy, panniculectomy, permanent pain stimulator insertion and removal, cataract surgery, EGD, hiatal hernia repair, fasciotomy, tracheostomy and removal. SOCIAL HISTORY: Patient is a former smoker. No history of drug abuse or alcohol abuse. MEDICATIONS: Medications prior to admission included Nitrostat, Singulair, omeprazole, Seroquel, Demadex, Cordarone, Eliquis, aspirin, Zoloft, Ultram, Synthroid, Lopressor, Xanax, Lipitor. ALLERGIES: Allergies include MACROBID, SULFA, TETRACYCLINES. PHYSICAL EXAMINATION: On examination, patient is currently comfortable, awake, not in any acute distress. Blood pressure was 100/63, heart rate 76 per minute. She is afebrile. EXAMINATION OF THE HEART: S1, S2. EXAMINATION OF LUNGS: Bilateral breath sounds are heard. ABDOMEN: Soft, nontender. Examination of lower extremities shows trace edema. 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 LABS: Labs show sodium 141, potassium 4.1, chloride 108, BUN 27, creatinine 2.15, hemoglobin 9.4 g/dL. ASSESSMENT: 1. Chronic kidney disease secondary to nephrosclerosis; however, patient does have 1+ protein and underlying hematuria. We need to rule out underlying paraproteinemia given the elevated lambda and kappa light chains. The patient will need followup as outpatient. 2. Anemia, rule out iron deficiency. Iron saturation was about 19% in February. Given the underlying chronic kidney disease, I will start the patient on Aranesp and she should get hematology evaluation for the underlying elevated kappa and lambda free chains. 3. Weakness, most likely associated with underlying hypotension. Blood pressure is currently improved. Patient is maintained on Lopressor and amiodarone for the atrial fibrillation, which we can continue as long as there are parameters on the Lopressor. Heart rate is not significantly elevated. PLAN: Recommend Heme-Onc consultation and evaluation and I will start the patient on Aranesp for her anemia. The patient will need followup as outpatient. MMODL / IJN: [id number] /
[2019-04-18] MEDS: traMADol 50 MG TAB PO PRN (14:47)
[2019-04-18] MEDS: NYSTATIN 100,000 UNIT/ML SUSP 500,000 UNIT/5 ML CUP PO SCH ×2 (15:58→21:52)
[2019-04-18] MEDS: ALPRAZolam 0.5 MG TAB PO PRN ×2 (15:58→22:03)
[2019-04-18] MEDS: MONTELUKAST 10 MG TAB PO SCH (22:02)
[2019-04-18] MEDS: ATORVASTATIN 20 MG TAB PO SCH (22:02)
[2019-04-18] MEDS: PANTOPRAZOLE 40 MG TABLET PO SCH (22:03)
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
[2019-04-19] MEDS: MELATONIN 3 MG TABLET PO SCH ×2 (02:40→21:20)
[2019-04-19] MEDS: traMADol 50 MG TAB PO PRN ×3 (02:40→21:21)
[2019-04-19] MEDS: IPRATROPIUM-ALBUTEROL 3 ML NEB INHALATION SCH ×6 (03:22→23:31)
[2019-04-19] MEDS: LEVOTHYROXINE 88 MCG TAB PO SCH (07:13)
[2019-04-19 07:41] LABS: HCT 26.6 % (34.0-46.0); HGB 8.6 gm/dL (11.4-16.0); Hypochromasia Slight; MCH 31.3 pg (25.0-35.0); MCHC 32.4 g/dL (31.0-37.0); MCV 96.4 fL (80.0-100.0); Mean Platelet Volume 8.2; Platelet Count 263 k/uL (150-450); RBC 2.76 m/uL (3.80-5.40); RDW 13.7 % (11.5-15.5); WBC 8.5 k/uL (3.8-10.6)
[2019-04-19 07:55] LABS: Calcium 8.9 mg/dL (8.4-10.2); Potassium 4.7 mmol/L (3.5-5.1)
[2019-04-19] MEDS: ASPIRIN 81 MG PO SCH (08:41)
[2019-04-19] MEDS: METOPROLOL TARTRATE 25 MG TAB PO SCH ×2 (08:41→21:38)
[2019-04-19] MEDS: predniSONE 20 MG TAB PO SCH (08:41)
[2019-04-19] MEDS: PIPERACILLIN-TAZOBACTAM 3.375 GM in SODIUM CHLORIDE 0.9% 100 ML IVPB SCH ×2 (08:42→21:42)
[2019-04-19] MEDS: SERTRALINE 100 MG TAB PO SCH (08:42)
[2019-04-19] MEDS: NYSTATIN 100,000 UNIT/ML SUSP 500,000 UNIT/5 ML CUP PO SCH ×3 (08:42→22:36)
[2019-04-19] MEDS: FERROUS SULFATE 325 MG TAB PO SCH ×2 (08:42→21:38)
[2019-04-19] MEDS: AMIODARONE 200 MG TAB PO SCH (08:42)
[2019-04-19] MEDS: APIXABAN 5 MG TAB PO SCH ×2 (08:59→21:21)
[2019-04-19] MEDS: ALPRAZolam 0.5 MG TAB PO PRN ×4 (08:59→22:32)
--- NOTE | 2019-04-19 09:41 | P.PN ---
Subjective Principal diagnosis: generalized weakness Summary: Patient was admitted with generalized weakness. Per family on patient had trial of void and cystoscopy at urologist office. She was placed on Myrbetric and discharged home. She was acute night but for Wednesday started feeling very weak with malaise and low energy level. She was so weak she was not able to get up from the toilet. Patient baseline status is walking with a walker. She did not notice any subjective fevers chills or rigors. She reports wet sounding cough no expectoration no difficulties in breathing no sore throat nasal congestion. Per family she was exposed to influenza B as her grandkids were diagnosed with this recently. She also has some low back pain that per patient been there for a while. No leg weakness or paresthesia. No radiation of the pain. No particular pattern of the pain. Otherwise denies any confusion hallucinations headache vision changes. On admission blood work was significant for viable cell count of 15 and significant hematuria. She did not have any pyuria or leukocyte esterase. Chest x-ray shows COPD with any acute infiltrates. Lumbar x-ray did not show any fractures or bony lesions. EKG showed normal sinus rhythm. Patient was started on IV fluids and Zosyn and admitted for further evaluation. Home medications include Demadex, Seroquel, Xanax, Zoloft, levothyroxine, a miodarone, metoprolol, Eliquis, aspirin Interval history: NContinues to improve clinically. Ambulated in hallway without SOB. Appetite is better. Objective - Vital Signs Vital signs: Vital Signs Temp 97.3 F L 04/19/19 04:18 Pulse 72 04/19/19 04:18 Resp 16 04/19/19 04:18 BP 122/76 04/19/19 04:18 Pulse Ox 94 L 04/19/19 04:18 Intake & Output 04/18/19 04/19/19 04/19/19 18:59 06:59 18:59 Intake Total 1080 Balance 1080 Intake: Oral 1080 Other: Voiding Method Bedside Commode Bedside Commode # Voids 1 3 # Bowel Movements 0 - Exam Vital Signs: I have reviewed the vital signs. GENERAL: no apparent distress, cooperative Eyes: PERRL, extraoculry movements intact, clear conjunctiva Head: : Atraumatic external nose and ears, oropharyngeal mucosa is moist wit hout lesions or exudates Neck: Symmetric, trachea midline, No thyromegaly, no masses or neck vain pulsation, no neck rigidity CVS: +S1/S2, No murmurs or gallops. Peripheral pulses 2+ and equal in all extremities. RESP: Unlabored respiratory effort. breath sounds are diminished bilaterally with only occasional expiratory wheezes. Abdomen: Bowel sounds present in all 4 quadrants, Soft to palpation, Nontender/Nondistended, No hepatosplenomegaly, no hernias or masses, no CVA tnderness Musculoskeletal: Extremities w/o deformity, No cyanosis or clubbing, no joint swelling Skin: Warm, Dry. 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, motor strenght 5/5 i upper and lower extremities, no clonus, patellar DTRs 2+ and sympetrical Psych: Awake, Alert, & Oriented (AAO) x3 Appropriate mood and affect - Labs CBC & Chem 7: 04/19/19 07:03 04/19/19 07:03 Labs: Abnormal Lab Results - Last 24 Hours (Table) 04/19/19 04/19/19 Range/Units 07:03 07:03 RBC 2.76 L (3.80-5.40) m/uL Hgb 8.6 L (11.4-16.0) gm/dL Hct 26.6 L (34.0-46.0) % Carbon Dioxide 20 L (22-30) mmol/L BUN 33 H (7-17) mg/dL Creatinine 2.21 H (0.52-1.04) mg/dL Glucose 130 H (74-99) mg/dL Microbiology - Last 24 Hours (Table) 04/16/19 17:49 Blood Culture - Preliminary Blood No Growth after 48 hours 04/16/19 17:19 Blood Culture - Preliminary Blood No Growth after 48 hours Assessment and Plan Plan: 1. RLL pneumonia Clinically improving Zosyn day#3 ID following Blood cx NGTD repeat inflamatory markers, procalcitonin in am 2. COPD exacerbation acute tracheobronchitis severe emphysema steroids nebs 3. Acute hypoxic failure weaned of O2 4. Hematuria urology and nephro evaluated 5. Anemia probably multifactorial, hydration etc received BJ Hb stable 6. CKD stage 3 renal function appears stable euvolemic may need to retart diuretics soon since received hydration for sepsis elevated KLC ration but seems polyclonal need repeat once infection trated Immunoe SPEP and UPEP pending 7. History of atrial fibrillation now in NSR Currently on the Eliquis, Amiodarone, Metorpolol ok to restart Eliquis 9. Hypothryoidism TSH stable if continues current trajectory of improvement may consider discharge home in next 24-48 hrs
--- NOTE | 2019-04-19 19:58 | PN ---
PROGRESS NOTE Patient is seen for followup for chronic kidney disease. This morning she states she is comfortable. Patient denies any significant complaints. Her serum creatinine has been staying at 2.1 to 2.2 mg/dL, which is at her baseline since February of 2019. Prior to that patient had been as low as 1.5 and 1.7 mg/dL. Currently she is not on any IV fluids. PHYSICAL EXAMINATION: On examination today, blood pressure was 107/67, heart rate 76 per minute. Patient is afebrile. EXAMINATION OF THE HEART: S1 and S2. EXAMINATION OF LUNGS: Bilateral breath sounds are heard. ABDOMEN: Soft, non-tender. Examination of lower extremities shows no significant edema. PLATE FITTER exam is grossly intact. LABS: Sodium 138, potassium 4.7, BUN of 33, creatinine 2.21. ASSESSMENT: 1. Chronic kidney disease secondary to nephrosclerosis with possible underlying glomerulonephritis. The urine lambda and kappa light chains are elevated. 2. Anemia of chronic disease; started on Aranesp. 3. Hypotension and weakness on admission, currently improved. 4. History of urge incontinence; recently started on a trial of Myrbetriq as outpatient by Urology, currently on hold. 5. History of atrial fibrillation, now in normal sinus rhythm. 6. Right lower lobe pneumonia, maintained on antibiotics, being followed by ID. 7. Hematuria. PLAN: We will repeat UA again as outpatient. Continue off of Myrbetriq for now. Patient is maintained on Eliquis. She did have a cystoscopy as outpatient which was negative for any underlying bladder abnormalities. Patient will need followup as outpatient. Repeat UA down the road. Continue to avoid nephrotoxic agents. Continue with the Aranesp. MMODL / IJN: [id number] /
[2019-04-19] MEDS ORDERED: MELATONIN 3 MG TABLET PO SCH (21:00)
[2019-04-19] MEDS: ATORVASTATIN 20 MG TAB PO SCH ×2 (21:21→21:38)
[2019-04-19] MEDS: MONTELUKAST 10 MG TAB PO SCH (21:21)
[2019-04-19] MEDS: PANTOPRAZOLE 40 MG TABLET PO SCH (21:38)
[2019-04-19] MEDS ORDERED: QUEtiapine 100 MG TAB PO SCH (22:00)
[2019-04-20] MEDS: IPRATROPIUM-ALBUTEROL 3 ML NEB INHALATION SCH ×5 (03:07→21:17)
[2019-04-20] MEDS: traMADol 50 MG TAB PO PRN ×2 (05:30→17:20)
[2019-04-20] MEDS: LEVOTHYROXINE 88 MCG TAB PO SCH (05:30)
--- NOTE | 2019-04-20 05:53 | PN ---
PROGRESS NOTE DATE OF SERVICE: 04/19/2019 REASON FOR FOLLOWUP: Pneumonia. INTERVAL HISTORY: The patient is currently afebrile. The patient did have a congested cough. She is unable to cough up any sputum. Denies having any nausea, no vomiting. No abdominal pain. No diarrhea. PHYSICAL EXAMINATION: Blood pressure 107/67 with a pulse of 73, temperature 98.1. She is 94% on room air. General description is a middle-aged female up in the bed in no distress. RESPIRATORY SYSTEM: Unlabored breathing, coarse breath sounds at the bases bilaterally. No wheeze. HEART: S1, S2. Regular rate and rhythm. ABDOMEN: Soft, no tenderness. EXTREMITIES: No edema of feet. LABS: Hemoglobin 8.6, white count 8.5. BUN of 33, creatinine is 2.1. DIAGNOSTIC IMPRESSION AND PLAN: Patient admitted to the hospital with generalized weakness, multiple falls, congested cough likely component of pneumonia. The patient has currently responded to Zosyn to continue. We will try to obtain a sputum. antibiotics and continue with supportive care. MMODL / IJN: [id number] /
[2019-04-20 08:24] LABS: HCT 28.8 % (34.0-46.0); HGB 9.3 gm/dL (11.4-16.0); Hypochromasia Slight; MCH 31.4 pg (25.0-35.0); MCHC 32.4 g/dL (31.0-37.0); MCV 96.9 fL (80.0-100.0); Mean Platelet Volume 7.8; Platelet Count 351 k/uL (150-450); RBC 2.97 m/uL (3.80-5.40); RDW 13.9 % (11.5-15.5); WBC 12.1 k/uL (3.8-10.6)
[2019-04-20 08:35] LABS: Calcium 9.4 mg/dL (8.4-10.2); Potassium 4.9 mmol/L (3.5-5.1)
[2019-04-20] MEDS: APIXABAN 5 MG TAB PO SCH ×2 (08:42→19:51)
[2019-04-20] MEDS: SERTRALINE 100 MG TAB PO SCH (08:42)
[2019-04-20] MEDS: METOPROLOL TARTRATE 25 MG TAB PO SCH ×2 (08:42→19:52)
[2019-04-20] MEDS: ASPIRIN 81 MG PO SCH (08:42)
[2019-04-20] MEDS: AMIODARONE 200 MG TAB PO SCH (08:42)
[2019-04-20] MEDS: predniSONE 20 MG TAB PO SCH (08:42)
[2019-04-20] MEDS: FERROUS SULFATE 325 MG TAB PO SCH ×2 (08:42→19:50)
[2019-04-20] MEDS: PIPERACILLIN-TAZOBACTAM 3.375 GM in SODIUM CHLORIDE 0.9% 100 ML IVPB SCH ×2 (08:42→19:52)
[2019-04-20] MEDS: NYSTATIN 100,000 UNIT/ML SUSP 500,000 UNIT/5 ML CUP PO SCH ×3 (08:43→20:10)
[2019-04-20 09:40] LABS: C Reactive Protein 51.8 mg/L (<10.0)
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
[2019-04-20 09:51] LABS: Erythrocyte Sedimentation Rate 110 mm/hr (0-20)
[2019-04-20] MEDS ORDERED: SODIUM CHLORIDE 0.9% 1,000 ML IV SCH (15:30)
--- NOTE | 2019-04-20 16:22 | P.PN ---
Subjective Summary: Patient was admitted with generalized weakness. Per family on patient had trial of void and cystoscopy at urologist office. She was placed on Myrbetric and discharged home. She was acute night but for Wednesday started feeling very weak with malaise and low energy level. She was so weak she was not able to get up from the toilet. Patient baseline status is walking with a walker. She did not notice any subjective fevers chills or rigors. She reports wet sounding cough no expectoration no difficulties in breathing no sore throat nasal congestion. Per family she was exposed to influenza B as her grandkids were diagnosed with this recently. She also has some low back pain that per patient been there for a while. No leg weakness or paresthesia. No radiation of the pain. No particular pattern of the pain. Otherwise denies any confusion hallucinations headache vision changes. On admission blood work was significant for viable cell count of 15 and significant hematuria. She did not have any pyuria or leukocyte esterase. Chest x-ray shows COPD with any acute infiltrates. Lumbar x-ray did not show any fractures or bony lesions. EKG showed normal sinus rhythm. Patient was started on IV fluids and Zosyn and admitted for further evaluation. Home medications include Demadex, Seroquel, Xanax, Zoloft, levothyroxine, amiodarone, metoprolol, Eliquis, aspirin Interval history: Patient is doing about the same today. She remains in the room air. She reports less productive cough. She is greatly concerned about the dose of her Xanax and pain medications. Otherwise denies any nausea vomiting chest pain abdominal or back pain. She states that her appetite is fair. She underwent swallow evaluation with EEG that was negative for aspiration. Patient tolerated physical therapy ambulated in the hallway. Objective - Vital Signs Vital signs: Vital Signs Temp 97.5 F L 04/20/19 12:52 Pulse 64 04/20/19 12:52 Resp 16 04/20/19 12:52 BP 124/83 04/20/19 12:52 Pulse Ox 96 04/20/19 12:52 Intake & Output 04/19/19 04/20/19 04/20/19 18:59 06:59 18:59 Intake Total 750 Balance 750 Intake: Oral 750 Other: Voiding Method Bedside Commode Toilet Toilet Bedside Commode Bedside Commode # Voids 4 1 2 - Exam Vital Signs: I have reviewed the vital signs. GENERAL: no apparent distress, cooperative Eyes: PERRL, extraoculry movements intact, clear conjunctiva Head: : Atraumatic external nose and ears, oropharyngeal mucosa is moist without lesions or exudates Neck: Symmetric, trachea midline, No thyromegaly, no masses or neck vain pulsation, no neck rigidity CVS: +S1/S2, No murmurs or gallops. Peripheral pulses 2+ and equal in all extremities. RESP: Unlabored respiratory effort. breath sounds are diminished bilaterally with only occasional expiratory wheezes. Abdomen: Bowel sounds present in all 4 quadrants, Soft to palpation, Nontender/Nondistended, No hepatosplenomegaly, no hernias or masses, no CVA tnderness Musculoskeletal: Extremities w/o deformity, No cyanosis or clubbing, no joint swelling Skin: Warm, Dry. 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, motor strenght 5/5 i upper and lower extremities, no clonus, patellar DTRs 2+ and sympetrical Psych: Awake, Alert, & Oriented (AAO) x3 Appropriate mood and affect - Labs CBC & Chem 7: 04/20/19 07:48 04/20/19 07:48 Labs: Abnormal Lab Results - Last 24 Hours (Table) 04/20/19 04/20/19 04/20/19 Range/Units 07:48 07:48 07:48 WBC 12.1 H (3.8-10.6) k/uL RBC 2.97 L (3.80-5.40) m/uL Hgb 9.3 L (11.4-16.0) gm/dL Hct 28.8 L (34.0-46.0) % ESR 110 H (0-20) mm/hr Carbon Dioxide 20 L (22-30) mmol/L BUN 39 H (7-17) mg/dL Creatinine 2.48 H (0.52-1.04) mg/dL C-Reactive Protein 51.8 H (<10.0) mg/L Procalcitonin 0.32 H (0.02-0.09) ng/mL Microbiology - Last 24 Hours (Table) 04/16/19 17:49 Blood Culture - Preliminary Blood No Growth after 72 hours 04/16/19 17:19 Blood Culture - Preliminary Blood No Growth after 72 hours Assessment and Plan Plan: Overall patient continues to improve from a respiratory standpoint. Great concern remains her significantly elevated inflammatory markers. She had extensive workup in the past for vasculitis that was negative. Malignancy not ruled out. KPCC ratio elevated. Imaging electrophoresis of protein and serum and urine pending. 1. RLL pneumonia Clinically improving Zosyn day#4 ID following Blood cx NGTD inflamatory markers still elevated but improving, procalcitonin is steadily elevated Pulmonary service consulted PEG did not reveal any aspiration blood Beta D glucan negative 2. COPD exacerbation acute tracheobronchitis severe emphysema steroids nebs 3. Acute hypoxic failure weaned of O2 4. Hematuria urology and nephro evaluated 5. Anemia probably multifactorial, hydration etc received BJ Hb stable 6. CKD stage 3 renal function appears stable euvolemic Restart home diuretics elevated KLC ratio Discussed with nephrology, consult hematology Immunoe SPEP and UPEP pending 7. History of atrial fibrillation now in NSR Currently on Eliquis, Amiodarone, Metorpolol 9. Hypothryoidism TSH stable 10. History of traumatic brain injury Mentation seems to be at baseline per family 11. History of anxiety Continue present dose of Xanax. With slightly decreased the dose to avoid accumulation during acute illness 12. chronic pain syndrome with chronic nonspecific musculoskeletal discomfort pain Continue present dosing for tramadol plan no plan to escalate
--- NOTE | 2019-04-20 17:17 | PN ---
PROGRESS NOTE DATE OF SERVICE: 04/20/2019 REASON FOR FOLLOWUP: Pneumonia. INTERVAL HISTORY: The patient is currently afebrile. The patient is breathing comfortably. The patient continues to have a cough but denies having any sputum production. The patient is status post swallow evaluation with no evidence of any aspiration. The patient denies having nausea. No vomiting. No abdominal pain or diarrhea. She has been complaining of she has not been getting her trazodone she usually takes. PHYSICAL EXAMINATION: On examination, her blood pressure is 124/83 with a pulse of 64, temperature 97.5. She is 96% on room air. General description is an elderly female up in the chair in no distress. RESPIRATORY SYSTEM: Unlabored breathing. Clear to auscultation anteriorly. HEART: S1, S2. Regular rate and rhythm. ABDOMEN: Soft. No tenderness. EXTREMITIES: No edema of the feet. LABS: Hemoglobin 9.3, white count 12.1, BUN of 39, creatinine 2.48. Blood culture has been negative. Sputum not collected. DIAGNOSTIC IMPRESSION AND PLAN: Patient admitted to hospital with generalized weakness and fall in this patient who did have a component of pneumonia. Patient is currently covered with [employer]. Will try to obtain a sputum sample to narrow down her antibiotics and monitor her clinical course closely. MMODL / IJN: [id number] /
[2019-04-20 17:35] LABS: Protein/Creatinine Ratio,Urine 0.6
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
[2019-04-20] MEDS: ATORVASTATIN 20 MG TAB PO SCH (19:51)
[2019-04-20] MEDS: MONTELUKAST 10 MG TAB PO SCH (19:51)
[2019-04-20] MEDS: PANTOPRAZOLE 40 MG TABLET PO SCH (19:51)
[2019-04-20] MEDS: MELATONIN 3 MG TABLET PO SCH (19:51)
[2019-04-20] MEDS: QUEtiapine 50 MG TAB PO SCH (19:52)
[2019-04-20] MEDS: ALPRAZolam 0.5 MG TAB PO PRN (20:10)
--- NOTE | 2019-04-20 23:08 | PN ---
PROGRESS NOTE Patient is seen for followup for chronic kidney disease and acute kidney injury. The patient is complaining of increasing weakness today. She states she did not sleep at all last night. She denies any chest pains or shortness of breath. Oral intake is fair. Serum creatinine is slightly increased to 2.4 from 2.1 two days ago. Baseline creatinine has been at about 2.5 to 2.2 mg/dL as of February of 2019. However, previously she was as low as 1.4 and 1.5 in January of 2019. PHYSICAL EXAMINATION: On examination today, blood pressure was 124/83, heart rate of 64 per minute. Patient is afebrile. EXAMINATION OF THE HEART: S1 and S2. EXAMINATION OF LUNGS: Bilateral breath sounds are heard. ABDOMEN: Soft, nontender. LOWER EXTREMITIES: No significant edema. 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 LABS: Sodium of 141, potassium 4.9, chloride 107, CO2 is 20, BUN 39, creatinine 2.48, hemoglobin 9.3 g/dL. ASSESSMENT: 1. Acute kidney injury, possibly prerenal. Serum creatinine is again slightly higher from about 2 days ago. I will add gentle IV hydration and repeat labs in a.m. 2. Chronic kidney disease secondary to nephrosclerosis, with UA showing hematuria and proteinuria. Concern for underlying paraproteinemia, which can be worked up further as an outpatient. 3. History of urinary urge incontinence, status post trial of Myrbetriq as outpatient. 4. Possible pneumonia, maintained on antibiotics. Being followed by ID. PLAN: Consult Hematology, and then the patient will need outpatient followup and gentle IV hydration. MMODL / IJN: [id number] /
[2019-04-21] MEDS: IPRATROPIUM-ALBUTEROL 3 ML NEB INHALATION SCH ×7 (00:17→23:37)
[2019-04-21] MEDS: LEVOTHYROXINE 88 MCG TAB PO SCH (06:16)
--- NOTE | 2019-04-21 08:33 | XR ---
EXAMINATION TYPE: XR chest 2V DATE OF EXAM: 04/21/2019 COMPARISON: 04/16/2019 HISTORY: Pneumonia. Shortness of breath. COPD. TECHNIQUE: Frontal and lateral views of the chest are obtained. FINDINGS: Diffuse interstitial prominence is more pronounced than on the prior. Cardiomediastinal si lhouette is markedly enlarged. Very trace pleural effusions are seen. Diffuse osseous demineralizatio n and mild degenerative change of the spine. IMPRESSION: Worsening fluid overload, likely cardiogenic with development of diffuse mild interstiti al pulmonary edema.
[2019-04-21] MEDS: ASPIRIN 81 MG PO SCH (09:09)
[2019-04-21] MEDS: AMIODARONE 200 MG TAB PO SCH (09:09)
[2019-04-21] MEDS: FERROUS SULFATE 325 MG TAB PO SCH ×2 (09:09→21:03)
[2019-04-21] MEDS: METOPROLOL TARTRATE 25 MG TAB PO SCH ×2 (09:09→21:02)
[2019-04-21] MEDS: SERTRALINE 100 MG TAB PO SCH (09:09)
[2019-04-21] MEDS: APIXABAN 5 MG TAB PO SCH ×2 (09:09→21:03)
[2019-04-21] MEDS: predniSONE 20 MG TAB PO SCH (09:09)
[2019-04-21] MEDS: NYSTATIN 100,000 UNIT/ML SUSP 500,000 UNIT/5 ML CUP PO SCH ×3 (09:10→21:03)
[2019-04-21 09:12] LABS: Calcium 8.7 mg/dL (8.4-10.2); Potassium 4.5 mmol/L (3.5-5.1)
[2019-04-21] MEDS: traMADol 50 MG TAB PO PRN (09:16)
[2019-04-21] MEDS: ALPRAZolam 0.5 MG TAB PO PRN ×2 (09:17→21:17)
[2019-04-21] MEDS: PIPERACILLIN-TAZOBACTAM 3.375 GM in SODIUM CHLORIDE 0.9% 100 ML IVPB SCH ×2 (09:20→21:03)
[2019-04-21] MEDS ORDERED: FUROSEMIDE 10 MG/ML 2 ML VIAL IV ONE (09:36)
--- NOTE | 2019-04-21 09:42 | P.PN ---
Subjective Principal diagnosis: generalized weakness Summary: Patient was admitted with generalized weakness. Per family on patient had trial of void and cystoscopy at urologist office. She was placed on Myrbetric and discharged home. She was acute night but for Wednesday started feeling very weak with malaise and low energy level. She was so weak she was not able to get up from the toilet. Patient baseline status is walking with a walker. She did not notice any subjective fevers chills or rigors. She reports wet sounding cough no expectoration no difficulties in breathing no sore throat nasal congestion. Per family she was exposed to influenza B as her grandkids were diagnosed with this recently. She also has some low back pain that per patient been there for a while. No leg weakness or paresthesia. No radiation of the pain. No particular pattern of the pain. Otherwise denies any confusion hallucinations headache vision changes. On admission blood work was significant for viable cell count of 15 and significant hematuria. She did not have any pyuria or leukocyte esterase. Chest x-ray shows COPD with any acute infiltrates. Lumbar x-ray did not show any fractures or bony lesions. EKG showed normal sinus rhythm. Patient was started on IV fluids and Zosyn and admitted for further evaluation. Home medications include Demadex, Seroquel, Xanax, Zoloft, levothyroxine, a miodarone, metoprolol, Eliquis, aspirin Interval history: Subjective the patient is doing very well. She denies any shortness of breath or any significant cough. She's been afebrile. She ambulated in the hallways without any difficulties. Unfortunately her labs this morning showing rising creatinine. Chest x-ray suggestive of possible early vascular congestion. Patient and patient's are asking if she can be discharge home today. Patient does not want to go to penitentiary facility or transitional rehab. Patient's family showed interest in 2 penitentiary facility but patient is adamantly refusing at this point. Objective - Vital Signs Vital signs: Vital Signs Temp 97.4 F L 04/21/19 05:15 Pulse 64 04/21/19 05:15 Resp 18 04/21/19 05:15 BP 120/79 04/21/19 05:15 Pulse Ox 95 04/21/19 05:15 Intake & Output 04/20/19 04/21/1920 18:59 06:59 18:59 Intake Total 950 Balance 950 Intake: Oral 950 Other: Voiding Method Toilet Bedside Commode # Voids 2 1 - Exam Vital Signs: I have reviewed the vital signs. GENERAL: no apparent distress, cooperative Eyes: PERRL, extraoculry movements intact, clear conjunctiva Head: : Atraumatic external nose and ears, oropharyngeal mucosa is moist without lesions or exudates Neck: Symmetric, trachea midline, No thyromegaly, no masses or neck vain pul sation, no neck rigidity CVS: +S1/S2, No murmurs or gallops. Peripheral pulses 2+ and equal in all extremities. RESP: Unlabored respiratory effort. breath sounds are diminished bilaterally with only occasional expiratory wheezes. Abdomen: Bowel sounds present in all 4 quadrants, Soft to palpation, Nontender/Nondistended, No hepatosplenomegaly, no hernias or masses, no CVA tnderness Musculoskeletal: Extremities w/o deformity, No cyanosis or clubbing, no joint swelling Skin: Warm, Dry. 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, motor strenght 5/5 i upper and lower extremities, no clonus, patellar DTRs 2+ and sympetrical Psych: Awake, Alert, & Oriented (AAO) x3 Appropriate mood and affect - Labs CBC & Chem 7: 04/20/19 07:48 04/21/19 07:25 Labs: Abnormal Lab Results - Last 24 Hours (Table) 04/20/19 04/20/19 04/20/19 Range/Units 07:48 07:48 07:48 ESR 110 H (0-20) mm/hr Chloride (98-107) mmol/L Carbon Dioxide (22-30) mmol/L BUN (7-17) mg/dL Creatinine (0.52-1.04) mg/dL C-Reactive Protein 51.8 H (<10.0) mg/L Procalcitonin 0.32 H (0.02-0.09) ng/mL U Random Total Protein (<12) mg/dL 04/20/19 04/21/19 Range/Units 16:46 07:25 ESR (0-20) mm/hr Chloride 112 H (98-107) mmol/L Carbon Dioxide 19 L (22-30) mmol/L BUN 45 H (7-17) mg/dL Creatinine 2.71 H (0.52-1.04) mg/dL C-Reactive Protein (<10.0) mg/L Procalcitonin (0.02-0.09) ng/mL U Random Total Protein 40 H (<12) mg/dL Microbiology - Last 24 Hours (Table) 04/20/19 17:00 Gram Stain - Preliminary Sputum Sputum Culture - Preliminary 04/16/19 17:49 Blood Culture - Preliminary Blood No Growth after 96 hours 04/16/19 17:19 Blood Culture - Preliminary Blood No Growth after 96 hours Assessment and Plan Plan: Subjective the patient is feeling better and per patient and family seems to be exceeding her usual baseline and functional status. We are awaiting hematology consultation regarding her FLC ratio elevation. Patient creatinine is slightly rising unfortunately hence she may need to be observed here in the hospital to assure stability of renal function 1. RLL pneumonia Clinically improving Zosyn day#5 ID following Blood cx NGTD inflamatory markers still elevated but improving, procalcitonin is steadily elevated Pulmonary service consulted VEG did not reveal any aspiration blood Beta D glucan negative 2. COPD exacerbation acute tracheobronchitis severe emphysema steroids nebs 3. Acute hypoxic failure weaned of O2 4. Hematuria urology and nephro evaluated 5. Anemia probably multifactorial, hydration etc received BJ Hb stable 6. Acute on chronic kidney injury Nephrology's following 7. elevated FLC ratio Discussed with nephrology, consult hematology Immunoe SPEP and UPEP pending 8. History of atrial fibrillation now in NSR Currently on Eliquis, Amiodarone, Metorpolol 9. Hypothryoidism TSH stable 10. History of traumatic brain injury Mentation seems to be at baseline per family 11. History of anxiety Continue present dose of Xanax. With slightly decreased the dose to avoid accumulation during acute illness 12. chronic pain syndrome with chronic nonspecific musculoskeletal discomfort pain Continue present dosing for tramadol plan no plan to escalate Disposition planning: Patient really wants to go home and asking about possibility of discharge. Explained to be her awaiting hematology evaluation. Also given the slight rise in creatinine this might need to be monitored to assure stability prior to going home.
--- NOTE | 2019-04-21 12:38 | P.PN ---
Subjective Progress Note Date: 04/21/19 Principal diagnosis: Weakness, altered mental status 63-year-old female patient of Dr. Middleton, with extensive past medical history including MRSA and pseudomonal pneumonia, cardiac arrest in July 2018, ventilator dependent respiratory failure status post tracheostomy and PEG tube placement and subsequent decannulation and removal of the PEG tube, ESBL E. coli urinary tract infection, chronic kidney disease, paroxysmal atrial fibrillation, hypertension, hypothyroidism, COPD, hyperlipidemia, bipolar disorder, anemia of chronic disease. Patient was recently hospitalized in March for urinary tract infection, metabolic encephalopathy, and exacerbation of diastolic heart f ailure. Urine culture from 03/27/2019 showed Enterobacter cloacae. Patient was seen by infectious disease service, she recovered, she returned home after discharge and was doing well with visiting PT OT and visiting nurses. She was seen by urology last week on and she was started on a new medication, Myrbetriq for urinary frequency and urinary incontinence. The family states shortly after the new medication was started patient started experiencing increased confusion, she is complaining of increased weakness, she could not walk at home, falling, she is also noted to be coughing more after eating, she feels like there is something stuck in her throat. She denied any fever or chi lls, her cough is productive with production of yellow sputum, denies chest pain, denied any hemoptysis. Chest x-ray was obtained on admission showing COPD and cardiomegaly, clear lungs and pleural spaces. CT of the brain and C-spine without contrast showed no acute intracranial abnormality, trophic changes, chronic ischemic change, chronic sinus mucosal disease. Admission labs showed white blood cell count of 15.4, hemoglobin was 11.6, ESR was 113, electrolytes are within normal limits, BUN is 31 creatinine is 2.36, which is stable compared with her renal function during her last admission in March. Asthma lactic acid was 2.0, proBNP was 5030, CRP was 254, troponin was less than 0.012, pro calcitonin was 0.29, mildly elevated, urinalysis showed evidence of 1+ protein, trace leuks, moderate amount of blood, rare bacteria, and no significant white blood cell count only at 3. Influenza screen was negative. Patient has had some low-grade fevers of 99.9, since admission, room air pulse ox is 95-97%, hemodynamically stable, her respirations are comfortable, nonlabored, she does h ave a congested cough, lung sounds are diminished, no significant wheezing auscultated. CT of chest/abdomen and pelvis were obtained on 04/17/2019 showing pulmonary interstitial fibrosis and emphysema, significant clearing of the diffuse pulmonary infiltrates compared to old exam from August 2018, and residual airway consolidation in the right lower lobe possibly related to inflammatory disease and increased right pleural fluid compared old exam. Patient was started on Zosyn for antibiotic coverage, ID service is following, blood cultures are negative thus far. Patient had a modified barium swallow evaluation which showed normal did glue dictation. There was no evidence of penetration or aspiration with any modality and no significant pharyngeal residue. We were asked to see the patient in consultation for possibility of right lower lobe pneumonia. The patient is seen today 04/21/2019 in follow-up on the regular medical floor. She is currently sitting up in bed. Awake and alert in no acute distress. Denies any worsening shortness of breath, cough or congestion. She is mainta ining O2 saturation in the mid to upper 90s on room air. She's afebrile. Hemodynamically stable. Blood and sputum cultures are pending. Sodium 141. Potassium 4.5. Creatinine 2.71. Currently on Zosyn, bronchodilators, Singulair. Anticoagulated with Eliquis. Chest x-ray showed mild fluid volume overload. Given Lasix 20 mg IVP 1 this morning. Diuresing well. Objective - Vital Signs Vital signs: Vital Signs Temp 97.4 F L 04/21/19 05:15 Pulse 64 04/21/19 05:15 Resp 18 04/21/19 05:15 BP 120/79 04/21/19 05:15 Pulse Ox 95 04/21/19 05:15 Intake & Output 04/20/19 04/21/19 04/21/19 18:59 06:59 18:59 Intake Total 950 Balance 950 Intake: Oral 950 Other: Voiding Method Toilet Bedside Commode # Voids 2 1 - Exam GENERAL EXAM: Alert, very pleasant, 63-year-old female patient, with room air pulse ox of 95-98% comfortable in no apparent distress. HEAD: Normocephalic/atraumatic. EYES: Normal reaction of pupils, equal size. Conjunctiva pink, sclera white. NOSE: Clear with pink turbinates. THROAT: No erythema or exudates. NECK: No masses, no JVD, no thyroid enlargement, no adenopathy. CHEST: No chest wall deformity. Symmetrical expansion. LUNGS: Diminished air entry with crackles in the bilateral posterior bases, d iminished CVS: Regular rate and rhythm, normal S1 and S2, no gallops, no murmurs, no rubs ABDOMEN: Soft, nontender. No hepatosplenomegaly, normal bowel sounds, no guarding or rigidity. EXTREMITIES: No clubbing, no edema, no cyanosis, 2+ pulses and upper and lower extremities. MUSCULOSKELETAL: Muscle strength and tone normal. SPINE: No scoliosis or deformity SKIN: No rashes CENTRAL NERVOUS SYSTEM: No focal deficits, tone is normal in all 4 extremities. PSYCHIATRIC: Alert and oriented -2. Appropriate affect. Intact judgment and insight. - Labs CBC & Chem 7: 04/20/19 07:48 04/21/19 07:25 Labs: Abnormal Lab Results - Last 24 Hours (Table) 04/20/19 04/21/19 Range/Units 16:46 07:25 Chloride 112 H (98-107) mmol/L Carbon Dioxide 19 L (22-30) mmol/L BUN 45 H (7-17) mg/dL Creatinine 2.71 H (0.52-1.04) mg/dL U Random Total Protein 40 H (<12) mg/dL Microbiology - Last 24 Hours (Table) 04/20/19 17:00 Gram Stain - Preliminary Sputum Sputum Culture - Preliminary 04/16/19 17:49 Blood Culture - Preliminary Blood No Growth after 96 hours 04/16/19 17:19 Blood Culture - Preliminary Blood No Growth after 96 hours Assessment and Plan Assessment: #1. Right lower lobe airspace consolidation, residual, with significant clearing of the diffuse pulmonary infiltrates compared to old CT scan from 08/22/2018. Underlying pneumonia is not excluded over today's chest x-ray show some evidence of mild interstitial edema. Given Lasix IVP 1. #2. Weakness, multiple falls at home, confusion could be related to the above #3. Cough with eating with different consistencies, dysphagia, patient had an MBS today did not show any evidence of penetration or aspiration with any modality, no significant pharyngeal residue #4. Chronic kidney disease #5. Urge incontinence recently started on the trial of Myrbetriq, she is currently on hold #6. Hematuria #7. History of paroxysmal atrial fibrillation currently in sinus rhythm , obtained on Eliquis #8. History of MRSA and pseudomonal pneumonia #9. History of recent urinary tract infection in March 2019 requiring hospitalization and urine cultures was positive for Enterobacter cloacae #10. Past history of ESBL E. coli urinary tract infection #11. History of cardiac arrest in July 2018 requiring intubation, mechanical ventilation, status post tracheostomy and PEG tube placement. She was subsequently liberated from the ventilator, and decannulated and PEG tube was removed #12. Hypertension #13. Hypothyroidism #14. History of COPD #15. Bipolar disorder #16. Anemia of chronic disease Plan: The patient was seen and evaluated by Dr. Briseno. Chest x-ray and labs reviewed. Received Lasix 1 On room air Continue bronchodilators and Singulair Continue antibiotics Anticoagulated with Eliquis Will see the patient on as-needed basis I, the cosigning physician, performed a history & physical examination of the patient. Lungs sounds faint crackles in the posterior bases. Maintaining good O2 saturations in the 90s on room air. I discussed the assessment and plan of care with my nurse practitioner, Alicia Leon. I attest to the above note as dictated by her.
--- NOTE | 2019-04-21 12:44 | PN ---
PROGRESS NOTE Patient is seen for followup for chronic kidney disease and acute kidney injury. She was admitted to the hospital with weakness. She is maintained on IV fluids. Patient is also on antibiotics for right lower lobe pneumonia. She was found to have hematuria on initial admission. The kappa and lambda light chains are mildly elevated at 22 and 8.3 respectively. The patient's renal function is slightly worse today with creatinine at 2.7. Chest x-ray showed evidence of volume overload. Therefore, fluids have been discontinued. The patient received Lasix x1. She is voiding on her own. The patient is not on any nephrotoxic medications. PHYSICAL EXAMINATION: On examination today, blood pressure is 120/79, heart rate 64 per minute. Patient is afebrile. EXAMINATION OF THE HEART: S1, S2. EXAMINATION OF THE LUNGS: Decreased breath sounds at bases. Abdomen is soft, nontender. Examination of lower extremities shows no significant edema. LAB: Labs show sodium 141, potassium 4.5, chloride 112, CO2 is 19, BUN 45, creatinine 2.7 today. ASSESSMENT: 1. Acute kidney injury with hematuria, status post IV fluids with no significant improvement in renal function. The patient in fact developed volume overload and she is currently off of IV fluids. She received a dose of IV Lasix today. I will repeat a postvoid residual to rule out underlying urine retention. The patient may need a kidney biopsy if her renal function does not improve. I will send out other serologies as well including SELMA, ANCA levels, anti double stranded DNA, and complements. The hematuria is not new and review of labs shows patient has had hematuria even in 2015. There is no evidence of hydronephrosis on the abdominal CT. 2. Volume overload. Continue off of IV fluids for now. Agree with Lasix IV push x1. Follow up on hematology consultation and check all other serologies given the progression of renal failure. MMODL / IJN: [id number] /
[2019-04-21] MEDS ORDERED: traMADol 50 MG TAB PO PRN (12:49)
--- NOTE | 2019-04-21 15:56 | PN ---
PROGRESS NOTE DATE OF SERVICE: 04/21/2019 REASON FOR FOLLOWUP: Pneumonia. INTERVAL HISTORY: The patient is currently afebrile. The patient is breathing comfortably. The patient continues to have a congested cough. Overall sputum production is minimal. No chest pain. No nausea, no vomiting. No abdominal pain. No diarrhea. Patient has been complaining of not getting her Xanax and trazodone at night, so she could not sleep. PHYSICAL EXAMINATION: Blood pressure 133/83 with pulse of 55, temperature 98.2. She is 98% on room air. General description is a middle-aged female up in the chair in no distress. RESPIRATORY SYSTEM: Unlabored breathing. Coarse breath sounds at the bases bilaterally. No wheeze. HEART: S1, S2. Regular rate and rhythm. ABDOMEN: Soft. No tenderness. LABS: BUN of 45, creatinine 2.71. Sputum was obtained yesterday; currently pending. Blood culture has been negative. DIAGNOSTIC IMPRESSION AND PLAN: Patient admitted to hospital with weakness and falls in this patient who did have a component of pneumonia. Sputum cultures were obtained yesterday and currently pending. The patient is clinically responding to Zosyn. Will wait for the sputum culture to finalize to determine her discharge antibiotics and continue supportive care. MMODL / IJN: [id number] /
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
[2019-04-21] MEDS: ATORVASTATIN 20 MG TAB PO SCH (21:02)
[2019-04-21] MEDS: MONTELUKAST 10 MG TAB PO SCH (21:02)
[2019-04-21] MEDS: MELATONIN 3 MG TABLET PO SCH (21:03)
[2019-04-21] MEDS: QUEtiapine 50 MG TAB PO SCH (21:03)
[2019-04-22] MEDS: LEVOTHYROXINE 88 MCG TAB PO SCH (06:32)
[2019-04-22] MEDS: SERTRALINE 100 MG TAB PO SCH (08:05)
[2019-04-22] MEDS: ALPRAZolam 0.5 MG TAB PO PRN ×2 (08:05→21:00)
[2019-04-22] MEDS: traMADol 50 MG TAB PO PRN ×2 (08:05→21:01)
[2019-04-22] MEDS: AMIODARONE 200 MG TAB PO SCH (08:05)
[2019-04-22] MEDS: NYSTATIN 100,000 UNIT/ML SUSP 500,000 UNIT/5 ML CUP PO SCH (08:05)
[2019-04-22] MEDS: APIXABAN 5 MG TAB PO SCH ×2 (08:06→21:02)
[2019-04-22] MEDS: ASPIRIN 81 MG PO SCH (08:06)
[2019-04-22] MEDS: predniSONE 20 MG TAB PO SCH (08:06)
[2019-04-22] MEDS: METOPROLOL TARTRATE 25 MG TAB PO SCH ×2 (08:06→21:02)
[2019-04-22] MEDS: PIPERACILLIN-TAZOBACTAM 3.375 GM in SODIUM CHLORIDE 0.9% 100 ML IVPB SCH ×2 (08:06→21:05)
[2019-04-22] MEDS: FERROUS SULFATE 325 MG TAB PO SCH (08:06)
[2019-04-22 08:50] LABS: Reticulocyte % 1.7 % (0.5-2.0)
[2019-04-22 10:32] LABS: Calcium 8.4 mg/dL (8.4-10.2); Potassium 4.3 mmol/L (3.5-5.1)
[2019-04-22] MEDS: IPRATROPIUM-ALBUTEROL 3 ML NEB INHALATION PRN ×2 (11:34→16:01)
--- NOTE | 2019-04-22 13:27 | P.PN ---
Subjective Principal diagnosis: generalized weakness Summary: Patient was admitted with generalized weakness. Per family on patient had trial of void and cystoscopy at urologist office. She was placed on Myrbetric and discharged home. She was acute night but for Wednesday started feeling very weak with malaise and low energy level. She was so weak she was not able to get up from the toilet. Patient baseline status is walking with a walker. She did not notice any subjective fevers chills or rigors. She reports wet sounding cough no expectoration no difficulties in breathing no sore throat nasal congestion. Per family she was exposed to influenza B as her grandkids were diagnosed with this recently. She also has some low back pain that per patient been there for a while. No leg weakness or paresthesia. No radiation of the pain. No particular pattern of the pain. Otherwise denies any confusion hallucinations headache vision changes. On admission blood work was significant for viable cell count of 15 and significant hematuria. She did not have any pyuria or leukocyte esterase. Chest x-ray shows COPD with any acute infiltrates. Lumbar x-ray did not show any fractures or bony lesions. EKG showed normal sinus rhythm. Patient was started on IV fluids and Zosyn and admitted for further evaluation. Home medications include Demadex, Seroquel, Xanax, Zoloft, levothyroxine, a miodarone, metoprolol, Eliquis, aspirin Interval history: No new events. Creatinine stable. Sputum cx positive for Klebsiealla pneumonia, sensitivity pending Objective - Vital Signs Vital signs: Vital Signs Temp 97.8 F 04/22/19 07:00 Pulse 70 04/22/19 11:45 Resp 18 04/22/19 07:00 BP 129/71 04/22/19 07:00 Pulse Ox 98 04/22/19 07:00 Intake & Output 04/21/19 04/22/19 04/22/19 18:59 06:59 18:59 Intake Total 540 800 Balance 540 800 Intake: Oral 540 800 Other: Voiding Method Toilet # Voids 3 0 3 - Exam Vital Signs: I have reviewed the vital signs. GENERAL: no apparent distress, cooperative Eyes: PERRL, extraoculry movements intact, clear conjunctiva Head: : Atraumatic external nose and ears, oropharyngeal mucosa is moist without lesions or exudates Neck: Symmetric, trachea midline, No thyromegaly, no masses or neck vain pulsation, no neck rigidity CVS: +S1/S2, No murmurs or gallops. Peripheral pulses 2+ and equal in all extremities. RESP: Unlabored respiratory effort. breath sounds are diminished bilaterally with only occasional expiratory wheezes. Abdomen: Bowel sounds present in all 4 quadrants, Soft to palpation, Nontender/Nondistended, No hepatosplenomegaly, no hernias or masses, no CVA tnderness Musculoskeletal: Extremities w/o deformity, No cyanosis or clubbing, no joint swelling Skin: Warm, Dry. 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 booking officer II-XII grossly intact, motor strenght 5/5 i upper and lower extremities, no clonus, patellar DTRs 2+ and sympetrical Psych: Awake, Alert, & Oriented (AAO) x3 Appropriate mood and affect - Labs CBC & Chem 7: 04/20/19 07:48 04/22/19 07:34 Labs: Abnormal Lab Results - Last 24 Hours (Table) 04/22/19 Range/Units 07:34 Chloride 112 H (98-107) mmol/L Carbon Dioxide 18 L (22-30) mmol/L BUN 46 H (7-17) mg/dL Creatinine 2.59 H (0.52-1.04) mg/dL Microbiology - Last 24 Hours (Table) 04/20/19 17:00 Gram Stain - Final Sputum Sputum Culture - Final Klebsiella pneumoniae 04/16/19 17:49 Blood Culture - Preliminary Blood No Growth after 120 hours 04/16/19 17:19 Blood Culture - Preliminary Blood No Growth after 120 hours Assessment and Plan Plan: 1. RLL pneumonia Clinically improving Sputum cx: gaytan-sensitive Klebsiella pneumonia Zosyn day#6 ID following Blood cx NGTD Ig levels due to recurrent pneumonias 2. COPD exacerbation acute tracheobronchitis severe emphysema steroids nebs pulmonary toillete 3. Acute hypoxic failure weaned of O2 4. Hematuria urology and nephro evaluated 5. Anemia probably multifactorial, hydration etc received BJ Hb stable 6. Acute on chronic kidney injury Nephrology's following 7. elevated FLC ratio Hematology imput appreciated repeat FLC in 6 weeks 8. History of atrial fibrillation now in NSR Currently on Eliquis, Amiodarone, Metorpolol 9. Hypothryoidism TSH stable 10. History of traumatic brain injury Mentation seems to be at baseline per family 11. History of anxiety Continue present dose of Xanax. With slightly decreased the dose to avoid accumulation during acute illness 12. chronic pain syndrome with chronic nonspecific musculoskeletal discomfort pain Continue present dosing for tramadol plan no plan to escalate 13. polypharamcy again, cont to wean off of sedative mends, xanax etc Disposition planning: discharge planning once changed to oral antibiotics, likely in the next 24-48 hrs. Refused SNF and requests to be discharged home.
[2019-04-22 13:42] LABS: Protein, Total 6.1 g/dL (6.2-8.2)
[2019-04-22 13:52] LABS: Ferritin 471.5 ng/mL (10.0-291.0)
--- NOTE | 2019-04-22 15:20 | P.PN ---
Subjective Progress Note Date: 04/22/19 Principal diagnosis: This is a 63-year-old female seen in consultation because of acute kidney injury, secondary to pneumonia. She is known with chronic kidney disease stage III with baseline creatinine of about 1.8 maximally. She came in because of pneumonia. She has had history of closed head injury, DVT in the past atrial fibrillation COPD coronary artery disease. Initially she was given IV fluid and then because of some shortness of breath she has been given 2 doses of Lasix. Her creatinine baseline is 1.5 dated 01/26/2019. And then has been slowly going up to a peak of 3 on 03/11/2019 and then improved to 2.15 on 04/18/2019, and then went up again, peaking at 2.71 yesterday and is now down to 2.5. Urinalysis on 04/16/2019 shows 1+ protein specific gravity 1011 182 RBCs 3 WBCs. Urine protein to creatinine ratio is 1.4 on 04/17/2019 and then down to 0.6 dated 04/20/2019. Fluctuation in creatinine is unexplained Currently she has a cough which is dry. No shortness of breath, but does feel dizziness. no diarrhea nausea vomiting abdominal pain dysuria. She does have stress incontinence Objective - Vital Signs Vital signs: Vital Signs Temp 97.5 F L 04/22/19 14:54 Pulse 70 04/22/19 14:54 Resp 16 04/22/19 14:54 BP 135/86 04/22/19 14:54 Pulse Ox 96 04/22/19 14:54 Intake & Output 04/21/19 04/22/19 04/22/19 18:59 06:59 18:59 Intake Total 540 800 Balance 540 800 Intake: Oral 540 800 Other: Voiding Method Toilet # Voids 3 0 3 Exams and awake alert oriented comfortable HEENT exam no JVP neck is supple no facial asymmetry Lungs are clear to auscultation fair air entry bilaterally Heart sounds are unremarkable for any murmur rub gallop Abdomen soft nontender Extremity exam was trace edema Neurologically awake alert oriented - Labs CBC & Chem 7: 04/20/19 07:48 04/22/19 07:34 Labs: Abnormal Lab Results - Last 24 Hours (Table) 04/22/19 04/22/19 04/22/19 Range/Units 07:34 07:34 07:34 Chloride 112 H (98-107) mmol/L Carbon Dioxide 18 L (22-30) mmol/L BUN 46 H (7-17) mg/dL Creatinine 2.59 H (0.52-1.04) mg/dL TIBC 218 L (228-460) ug/dL % Saturation 50.00 H (12.00-45.00) Ferritin 471.5 H (10.0-291.0) ng/mL Total Protein (PEP) 6.1 L (6.2-8.2) g/dL Vitamin B12 1058.0 H (200.0-944.0) pg/mL Microbiology - Last 24 Hours (Table) 04/20/19 17:00 Gram Stain - Final Sputum Sputum Culture - Final Klebsiella pneumoniae 04/16/19 17:49 Blood Culture - Preliminary Blood No Growth after 120 hours 04/16/19 17:19 Blood Culture - Preliminary Blood No Growth after 120 hours Assessment and Plan Assessment: Impression 1. Acute kidney injury from prerenal from possibly volume depletion, and worsening because of pneumonia possibly. Questionable congestive heart failure 2. Chronic kidney disease with minimal proteinuria 0.6 g. Likely nephrosclerosis 3. History of COPD, ASHD, atrial fibrillation, DVT, closed head injury Recommendation 1. Hold off any diuretics for right now 2. Check orthostatic changes. Call the results back to me 3. Maintain daily labs
[2019-04-22] MEDS ORDERED: guaiFENesin SYRUP 100MG/5ML 200 MG/10 ML CUP PO PRN (15:40)
[2019-04-22] MEDS ORDERED: ALPRAZolam 0.5 MG TAB PO STA (16:36)
[2019-04-22] MEDS: MONTELUKAST 10 MG TAB PO SCH (21:00)
[2019-04-22] MEDS ORDERED: QUEtiapine 25 MG TAB PO SCH (21:00)
[2019-04-23 00:27] VITALS: PULSE 67
--- NOTE | 2019-04-23 00:35 | PN ---
PROGRESS NOTE DATE OF SERVICE: 04/22/2019. REASON FOR FOLLOWUP: Pneumonia. INTERVAL HISTORY: The patient is currently afebrile. The patient is breathing comfortably. The patient currently has a cough but not bringing up any sputum. No nausea, vomiting. No abdominal pain or diarrhea. PHYSICAL EXAMINATION: Blood pressure is 133/85 with a pulse of 57. Temperature is 97.5. She is 96% on room air. General description is an elderly female up in the bed in no distress. Respiratory system: Unlabored breathing, decreased intensity. No wheeze. Heart S1, S2. Regular rate and rhythm. Abdomen soft. No tenderness. LABS: BUN of 46, creatinine 2.59. Sputum is Klebsiella pneumoniae sensitive pathogen. DIAGNOSTIC IMPRESSION AND PLAN: Patient with subsequent Klebsiella pneumonia. The patient seemed to have shown clinical improvement. Currently covered with Zosyn. Plan to finish therapy with oral Ceftin 250 mg twice a day for another 7 days and close outpatient followup. MMODL / IJN: [id number] /
[2019-04-23 06:21] VITALS: BP 141/89; RESP 16; TEMP 97.6
[2019-04-23] MEDS: LEVOTHYROXINE 88 MCG TAB PO SCH (06:24)
[2019-04-23 07:54] LABS: HCT 26.9 % (34.0-46.0); HGB 8.5 gm/dL (11.4-16.0); Hypochromasia Slight; MCH 30.6 pg (25.0-35.0); MCHC 31.6 g/dL (31.0-37.0); MCV 96.8 fL (80.0-100.0); Mean Platelet Volume 8.4; Platelet Count 334 k/uL (150-450); RBC 2.78 m/uL (3.80-5.40); RDW 14.9 % (11.5-15.5); WBC 16.1 k/uL (3.8-10.6)
[2019-04-23 08:09] LABS: Calcium 8.4 mg/dL (8.4-10.2); Potassium 4.4 mmol/L (3.5-5.1)
[2019-04-23] MEDS ORDERED: CEFDINIR 300 MG CAP PO SCH (09:00)
--- NOTE | 2019-04-23 10:11 | P.DS ---
Providers Date of admission: 04/17/19 09:59 Attending physician: Gm Richey MD Consults: 04/17/19 09:03 Consult Physician Routine Consulting Provider: Hesham Bob Consult Reason/Comments: Hematuria Do you want consulting provider notified?: Yes 04/17/19 17:30 Consult Physician Routine Consulting Provider: Edgar Herrera Consult Reason/Comments: Sepsis Do you want consulting provider notified?: Yes 04/18/19 08:30 Consult Physician Routine Consulting Provider: Stanislav Sanchez Consult Reason/Comments: hematuiria, CKD Do you want consulting provider notified?: Yes 04/19/19 16:43 Consult Physician Routine Consulting Provider: Rosie Sotomayor Consult Reason/Comments: Pneumonia, resp failure Do you want consulting provider notified?: Yes 04/20/19 16:22 Consult Physician Routine Consulting Provider: Samuel Albarran Consult Reason/Comments: elevated Lola almbda ratio, possible myeloma Do you want consulting provider notified?: Yes Primary care physician: Lia Middleton Hospital Course: discharge: 04/23/2019 Consultants: 1.Dr. Herrera ID 2. Dr. Figueroa pulmonary 3. Dr. Gonsales nephrology 4. Dr. Albarran hem/onc 5. 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 CT of the chest: Right lower lobe pneumonia, extensive emphysematous changes 2. Sputum culture: Pansensitive Klebsiella pneumoniae 3. Blood cultures: No growth 4.FLC ratio: Elevated And Lambda Chains with Elevated Ratio 5. Immunofixation of serum and urine proteins: Pending 6. Serum immunoglobulin level: Pending 7. SELMA, ANCA, anti-GBM: Pending Reason for admission: Generalized weakness Discharge diagnoses: 1. Right lower lobe pneumonia due to Klebsiella pneumoniae 2. Acute bronchitis and COPD exacerbation 3. CKD stage III, stable 4. Hematuria, microscopic 5. 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 Polypharmacy with chronic benzo and pain medications 7. Chronic anemia stable status post BJ History of present illness: This is a 63-year-old female with multiple medical problems, frequent admissions to the hospital, who was evaluated in the emergency department for sudden onset of generalized weakness, malaise, shortness of breath and lack of stamina. The day prior to admission she underwent cystoscopy and Edwards catheter removal by urology. Patient did not have any fever or chills. She did have some cough that is nonproductive and some signs of URI like illness. She did have some sick contacts at home. Chest x-ray showed some emphysematous changes with possible suggestion of retrocardiac opacity infiltrate. He did not have any clinical or laboratory signs compatible with sepsis. Blood cultures and sputum cultures were drawn and she was started on Zosyn admitted for further evaluation Hospital course CT of the chest showed right lower lobe infiltrate. Patient was maintained on Zosyn for total of 7 days. She was started on systemic steroids and bronchodilators. Patient remained on room air throughout the hospitalization. Above consultants evaluated the patient. Urology felt that due to normal cystoscopy and imaging of her upper urinary tract no urological issues are detected. Patient is known to nephrology service and they valid to the patient. Concern was presence of some hematuria. She not have any proteinuria. Back in March she had extensive workup for GI and that was negative. Serology for GI and was resubmitted by nephrology. Patient's creatinine remained stable. She had good urine output. Given the repeating episodes of pneumonia we also ordered FLC ratio, immunofixation and serum immunoglobulin levels. Hematology valid to the patient and recommended follow-up in their office in 4-6 weeks for repeating the labs for FLC. Overall with the above treatment patient respiratory status improved significantly. She remained on the room air and was able tolerate in the hallways without any difficulties. Upon sputum culture availability infectious disease recommended to finish the course with 7 days of Ceftin home. Patient was cleared for discharge. Disposition: Patient refused to go to shelter facility She will go home with home care She did not qualify for oxygen She is to finish 7 days of Ceftin at home and taper of prednisone next she was started on Spiriva She is to follow-up with primary care physician, nephrology and hematology as outlined in discharge Restart diuretics Check BMP in 3-4 days Physical exam on discharge Vital Signs: I have reviewed the vital signs. GENERAL: Well-nourished, Well-developed , no apparent distress, cooperative Eyes: PERRL, extraoculry movements intact, clear conjunctiva Head: : Atraumatic external nose and ears, oropharyngeal mucosa is moist without lesions or exudates CVS: +S1/S2, No murmurs or gallops. Peripheral pulses 2+ and equal in all extremities. RESP: Unlabored respiratory effort. Diminished breath sounds but present, no crackles, no wheezing or rhonchi Abdomen: Bowel sounds present in all 4 quadrants, Soft to palpation, Nontender/Nondistended, No hepatosplenomegaly, no hernias or masses, no CVA tnderness Musculoskeletal: Extremities w/o deformity, No cyanosis or clubbing, no joint swelling 45 minutes spent to discharge. Details of care and recommendation discussed with the patient and her in the room. Patient Condition at Discharge: Fair Plan - Discharge Summary Discharge Rx Participant: No New Discharge Prescriptions: New Cefuroxime [Ceftin] 250 mg PO BID 7 Days #14 tablet predniSONE See Taper PO DAILY #30 tab guaiFENesin SYRUP 100MG/5ML [Robitussin] 200 mg PO Q6H PRN cup PRN Reason: Cough Tiotropium 18 Mcg/Puff [Spiriva] 1 puff INHALATION DAILY #1 device Sodium Bicarbonate 325 mg PO BID-W/MEALS #30 tablet Continue Nitroglycerin Sl Tabs [Nitrostat] 0.4 mg SUBLINGUAL Q5M PRN PRN Reason: Chest Pain Omeprazole 20 mg PO HS #0 Montelukast [Singulair] 10 mg PO HS@2000 #0 Amiodarone [Cordarone] 200 mg PO DAILY Apixaban [Eliquis] 5 mg PO BID Aspirin 81 mg PO DAILY Folic Acid 1 mg PO HS Sertraline HCl [Zoloft] 100 mg PO DAILY traMADol HCl [Ultram] 50 mg PO BID PRN #4 tab PRN Reason: Mild To Moderate Pain Metoprolol Tartrate [Lopressor] 25 mg PO BID Ipratropium-Albuterol Nebulize [Duoneb 0.5 mg-3 mg/3 ml Soln] 3 ml INHALATION RT-QID PRN PRN Reason: Shortness Of Breath Albuterol Inhaler [Ventolin Hfa Inhaler] 1 - 2 puff INHALATION RT-Q6H PRN PRN Reason: Shortness Of Breath Levothyroxine Sodium [Synthroid] 88 mcg PO DAILY Ferrous Sulfate [Iron (65 MG Elemental)] 325 mg PO BID #60 tab Atorvastatin [Lipitor] 20 mg PO HS ALPRAZolam [Xanax] 0.5 mg PO TID Changed Torsemide [Demadex] 10 mg PO DAILY #0 Discontinued QUEtiapine [SEROquel] 100 mg PO HS #2 tab Discharge Medication List Nitroglycerin Sl Tabs [Nitrostat] 0.4 mg SUBLINGUAL Q5M PRN 12/29/13 [History] Montelukast [Singulair] 10 mg PO HS@1999 #0 12/06/18 [Rx] Omeprazole 20 mg PO HS #0 12/06/18 [Rx] Amiodarone [Cordarone] 200 mg PO DAILY 12/22/18 [History] Apixaban [Eliquis] 5 mg PO BID 12/22/18 [History] Aspirin 81 mg PO DAILY 12/22/18 [History] Folic Acid 1 mg PO HS 12/22/18 [History] Sertraline HCl [Zoloft] 100 mg PO DAILY 12/22/18 [History] traMADol HCl [Ultram] 50 mg PO BID PRN #4 tab 02/01/19 [Rx] Albuterol Inhaler [Ventolin Hfa Inhaler] 1 - 2 puff INHALATION RT-Q6H PRN 02/26/19 [History] Ipratropium-Albuterol Nebulize [Duoneb 0.5 mg-3 mg/3 ml Soln] 3 ml INHALATION RT-QID PRN 02/26/19 [History] Levothyroxine Sodium [Synthroid] 88 mcg PO DAILY 02/26/19 [History] Metoprolol Tartrate [Lopressor] 25 mg PO BID 02/26/19 [History] Ferrous Sulfate [Iron (65 MG Elemental)] 325 mg PO BID #60 tab 03/01/19 [Rx] ALPRAZolam [Xanax] 0.5 mg PO TID 03/09/19 [History] Atorvastatin [Lipitor] 20 mg PO HS 03/09/19 [History] Cefuroxime [Ceftin] 250 mg PO BID 7 Days #14 tablet 04/23/19 [Rx] Sodium Bicarbonate 325 mg PO BID-W/MEALS #30 tablet 04/23/19 [Rx] Tiotropium 18 Mcg/Puff [Spiriva] 1 puff INHALATION DAILY #1 device 04/23/19 [Rx] Torsemide [Demadex] 10 mg PO DAILY #0 04/23/19 [Rx] guaiFENesin SYRUP 100MG/5ML [Robitussin] 200 mg PO Q6H PRN cup 04/23/19 [Rx] predniSONE See Taper PO DAILY #30 tab 04/23/19 [Rx] Follow up Appointment(s)/Referral(s): Samuel Albarran MD [STAFF PHYSICIAN] - 1 Week Zelda Schmitt MD [STAFF PHYSICIAN] - 1 Week Dwayne Iniguez DO [Doctor of Osteopathic Medicine] - 1 Week [facility], [NON-STAFF] - (Home Care with Palliative care) Lia Middleton MD [Primary Care Provider] - 1-2 days Ambulatory/Diagnostic Orders: Basic Metabolic Panel [LAB.AMB] Time Frame: 04/26/19, Location: None Selected Magnesium [LAB.AMB] Location: None Selected Patient Instructions/Handouts: Bacterial Pneumonia (DC), Sodium Bicarbonate (By mouth) Discharge Disposition: HOME SELF-CARE Plan of Treatment: 1. Take her medications as instructed: Antibiotic for 7 days, prednisone taper.Restart taking the water pill once a day 2. Follow-up with nephrology and hematology within 1-2 weeks. Please call the office. Please do blood work prior to visiting nephrology 3. I'll assistant elementary teacher office and make an appointment for follow-up within 2-4 weeks 4. Increase activity as tolerated and Dr. primary care physician to cut down on Xanax 5. You have several blood work tests currently ordered and pending and please talk to your primary care doctor about those results
[2019-04-23] MEDS: AMIODARONE 200 MG TAB PO SCH (10:17)
[2019-04-23] MEDS: APIXABAN 5 MG TAB PO SCH (10:17)
[2019-04-23] MEDS: predniSONE 20 MG TAB PO SCH (10:17)
[2019-04-23] MEDS: METOPROLOL TARTRATE 25 MG TAB PO SCH (10:17)
[2019-04-23] MEDS: traMADol 50 MG TAB PO PRN (10:18)
[2019-04-23] MEDS: ASPIRIN 81 MG PO SCH (10:18)
[2019-04-23] MEDS: ALPRAZolam 0.5 MG TAB PO PRN (10:18)
[2019-04-23] MEDS: SERTRALINE 100 MG TAB PO SCH (10:18)
[2019-04-24 05:12] LABS: Anti-Glomerular Basement Memb 3 UNITS (0-20)
[2019-04-24 14:13] LABS: C-ANCA <1:20 Titer (<1:20)
[2019-04-24 14:20] LABS: Anti-DNA, DS unit <1.0 IU/mL; DNA Double-Stranded NEGATIVE (NEGATIVE)
[2019-04-25 09:37] LABS: Methylmalonic Acid 0.67 umol/L (<0.40)
[2019-04-26 13:29] LABS: Albumin 2.75 g/dL (3.80-4.90); Gamma Globulin 1.37 g/dL (0.70-1.50)
--- NOTE | 2019-04-27 06:36 | CDI ---
Documentation Clarification Form Date: 04/27/2019 06:25:50 AM From: Janay Maciel Phone: If you have a question about this query, please contact [employer] at [phone] between 8am and 5pm. Admit Date: 04/17/2019 09:59:00 AM Patient Name: Madina Nick Visit Number: [id number] Discharge Date: 04/23/2019 10:27:00 AM ATTENTION: The Clinical Documentation Specialists (CDI) and [facility] Coding Staff appreciate your assistance in clarifying documentation. Please respond to the clarification below the line at the bottom and electronically sign. The CDI & [facility] Coding staff will review the response and follow-up if needed. Please note: Queries are made part of the Legal Health Record. If you have any questions, please contact the author of this message via ITS. Dr. Rod Alan Your documentation in PN from 04/18 documents "Generalized weakness suspect due to pneumonia, sepsis, COPD exacerbation. Documentation of sepsis is not carried through the chart. Please clarify if patient had sepsis or was this ruled out. History/Risk Factors: gram negative pneumonia WBC 15.4 Lactic acid: 2.0 Blood cultures: No growth Vitals signs on admission: 98.9 F. 85 bpm, 18, 132/81. 97 RA Treatment: Zosyn gentle IV fluids ID Consult: pneumonia: In your professional opinion, please clarify if these findings signify one of the following conditions, whether the condition is POA, and cause, if known: Condition Present on Admission Yes No SIRS Criteria (2 or more of the following may indicate SIRS): -Temperature < 96.8F (36C) or > 101.0F (38.3C) -Heart Rate > 90 bpm -Respiratory Rate > 20 breaths/min or PaCO2 < 32 mmHg -White Blood Cell Count > 12,000 or < 4,000 cells/mm3 or > 10% bands -Lactate >2.0 mmol/L (>4.0 is equivalent to septic shock) No sepsis on admission MTDD
== END 2019-04-23 10:27 | disposition home health service (06) | DRG 178 ==
LOC: EC 09:51 → 6NMEDSUR 13:27 → OBSVTOIN 04-17 09:59
PROVIDERS: ADMIT Internal Medicine; ATTEND Internal Medicine
DX: J15.0 Pneumonia due to Klebsiella pneumoniae (principal); B37.0 Candidal stomatitis; D61.9 Aplastic anemia, unspecified; I13.0 Hypertensive heart and chronic kidney disease with heart failure and stage 1 through stage 4 chronic kidney disease, or unspecified chronic kidney disease; I50.32 Chronic diastolic (congestive) heart failure; N17.9 Acute kidney failure, unspecified; N18.4 Chronic kidney disease, stage 4 (severe); D63.1 Anemia in chronic kidney disease; D89.2 Hypergammaglobulinemia, unspecified; E03.9 Hypothyroidism, unspecified; D50.9 Iron deficiency anemia, unspecified; E78.5 Hyperlipidemia, unspecified; E83.42 Hypomagnesemia; E86.0 Dehydration; F31.9 Bipolar disorder, unspecified; F41.9 Anxiety disorder, unspecified; G31.84 Mild cognitive impairment of uncertain or unknown etiology; Z87.820 Personal history of traumatic brain injury; I25.10 Atherosclerotic heart disease of native coronary artery without angina pectoris; Z86.74 Personal history of sudden cardiac arrest; I48.0 Paroxysmal atrial fibrillation; J43.9 Emphysema, unspecified; J20.9 Acute bronchitis, unspecified; J84.10 Pulmonary fibrosis, unspecified; K21.9 Gastro-esophageal reflux disease without esophagitis; N39.46 Mixed incontinence; R31.29 Other microscopic hematuria; R13.10 Dysphagia, unspecified; R29.6 Repeated falls; R62.7 Adult failure to thrive; Z91.81 History of falling; Z79.01 Long term (current) use of anticoagulants; Z79.82 Long term (current) use of aspirin; Z51.5 Encounter for palliative care; Z79.890 Hormone replacement therapy; Z79.899 Other long term (current) drug therapy; Z86.14 Personal history of Methicillin resistant Staphylococcus aureus infection; Z86.19 Personal history of other infectious and parasitic diseases; Z86.718 Personal history of other venous thrombosis and embolism; Z87.01 Personal history of pneumonia (recurrent); Z87.440 Personal history of urinary (tract) infections; Z87.891 Personal history of nicotine dependence; Z90.710 Acquired absence of both cervix and uterus; Z95.5 Presence of coronary angioplasty implant and graft; Z98.42 Cataract extraction status, left eye; Z98.41 Cataract extraction status, right eye; Z90.49 Acquired absence of other specified parts of digestive tract; Z88.1 Allergy status to other antibiotic agents; Z88.2 Allergy status to sulfonamides; I95.9 Hypotension, unspecified
CPT/HCPCS: 36415; 70450; 71046; 71250; 72100; 72125; 72170; 74176; 74230; 80048; 80053; 81001; 82550; 82570; 82607; 82728; 82747; 82784; 83010; 83516; 83540; 83550; 83605; 83735; 83880; 83883; 83921; 84100; 84145; 84156; 84165; 84443; 84484; 85025; 85027; 85045; 85610; 85652; 85730; 86038; 86140; 86160; 86225; 86255; 86334; 86335; 87040; 87070; 87077; 87186; 87205; 87449; 87502; 93005; 94640; 94760; 96374; 96375; 99285

== ENCOUNTER → 2019-05-02 | Outpatient (CLI) | payer OTHER ==
--- NOTE | 2019-05-02 13:35 | XR ---
EXAMINATION TYPE: XR chest 2V DATE OF EXAM: 05/02/2019 COMPARISON: 04/21/2019 HISTORY: Pneumonia TECHNIQUE: Frontal and lateral views of the chest are obtained. FINDINGS: Cardiomediastinal silhouette is enlarged as seen on the prior. Biapical pleural-parenchyma l scarring is redemonstrated. Flattening of the diaphragms from underlying COPD is seen. Chronic inte rstitial prominence throughout. IMPRESSION: Chronic interstitial prominence. Mild interstitial pulmonary edema or atypical pneumonia are possible.
--- NOTE | 2019-05-02 13:43 | XR ---
EXAMINATION TYPE: XR lumbar spine 2 or 3V DATE OF EXAM: 05/02/2019 CLINICAL HISTORY: Low back pain with no recent injury TECHNIQUE: Frontal, lateral, and oblique images of the lumbar spine are obtained. COMPARISON: 04/16/2019 FINDINGS: There are 5 lumbar type vertebral bodies identified. There is grade 1 anterolisthesis of L 4 on L5.. Facet arthropathy is seen from L3 through S1. Endplate sclerosis at L5-S1. Mild diffuse oss eous demineralization. Advanced atheromatous change of the distal abdominal aorta and its branches. V reid mild dextroscoliosis of the lumbar spine is similar to the prior. Cholecystectomy clips are noted . IMPRESSION: 1. No acute fracture is seen in the lumbar spine. 2. Grade 1 anterolisthesis of L4 on L5 is new from the prior of 04/16/2019 and therefore could be posi tional. 3. Mild multilevel degenerative disc disease of the lumbar spine. 4. Very mild dextroscoliosis of the lumbar spine. 5. Mild diffuse osseous demineralization.
== END | disposition home or self-care (01) ==
LOC: RADXRMAIN 11:22
PROVIDERS: ATTEND Family Medicine
DX: M43.16 Spondylolisthesis, lumbar region (principal); M51.36 Other intervertebral disc degeneration, lumbar region; M41.86 Other forms of scoliosis, lumbar region; M81.8 Other osteoporosis without current pathological fracture; J18.9 Pneumonia, unspecified organism
CPT/HCPCS: 71046; 72100

== ENCOUNTER → 2019-05-30 | Outpatient (CLI) | payer OTHER ==
[2019-05-30 12:59] LABS: HCT 37.3 % (34.0-46.0); HGB 12.1 gm/dL (11.4-16.0); MCH 30.7 pg (25.0-35.0); MCHC 32.5 g/dL (31.0-37.0); Mean Platelet Volume 7.3; Platelet Count 201 k/uL (150-450); RBC 3.95 m/uL (3.80-5.40); RDW 15.4 % (11.5-15.5); WBC 12.8 k/uL (3.8-10.6)
[2019-05-30 13:07] LABS: MCV 94.3 fL (80.0-100.0)
[2019-05-30 13:09] LABS: Appearance,Urine Cloudy (Clear); Bacteria,Urine Many /hpf; Bilirubin,Urine Negative (Negative); Blood,Urine Large (Negative); Color,Urine Yellow; Glucose,Urine (UA) Negative (Negative); Hyaline Casts,Urine 7 /lpf (0-2); Ketones,Urine Negative (Negative); Leukocyte Esterase,Urine Moderate (Negative); Mucus,Urine Rare /hpf; Nitrite,Urine Positive (Negative); PH, Urine 5.5 (5.0-8.0); Protein,Urine 1+ (Negative); RBC,Urine 181 /hpf (0-5); Specific Gravity,Urine 1.016 (1.001-1.035); Squamous Epithelial Cell,Urine 2 /hpf (0-4); Urobilinogen,Urine <2.0 mg/dL (<2.0); WBC,Urine 32 /hpf (0-5)
[2019-05-30 19:11] LABS: Phosphorus 3.7 mg/dL (2.4-5.1); Uric Acid 10.9 mg/dL (2.9-7.7)
[2019-05-30 19:12] LABS: % Iron Saturation 20.81 (12.00-45.00); African American GFR (CKD) 21.7 (60.0-200.0); Albumin 4.1 g/dL (3.80-4.90); Albumin/Globulin Ratio 1.46 (1.60-3.17); Anion Gap 11.5 mmol/L (4.00-12.00); BUN/Creat Ratio 16.54 Ratio (12.00-20.00); Calcium 9.1 mg/dL (8.7-10.3); Carbon Dioxide 24.5 mmol/L (21.6-31.8); Ferritin 304.9 ng/mL (10.0-291.0); Globulin 2.8 g/dL (1.6-3.3); Magnesium 1.7 mg/dL (1.5-2.4); Non-African American GFR(CKD) 18.7 (60.0-200.0); Potassium 3.8 mmol/L (3.5-5.5); Total Bilirubin 0.3 mg/dL (0.3-1.2); Total Protein 6.9 g/dL (6.2-8.2)
== END | disposition home or self-care (01) ==
LOC: LABWHC1 12:23
PROVIDERS: ATTEND Nurse Practitioner Family
DX: N17.9 Acute kidney failure, unspecified (principal); N39.0 Urinary tract infection, site not specified; N25.81 Secondary hyperparathyroidism of renal origin; D64.9 Anemia, unspecified; E55.9 Vitamin D deficiency, unspecified; M10.9 Gout, unspecified
CPT/HCPCS: 36415; 80053; 81001; 82306; 82728; 83540; 83550; 83735; 83970; 84100; 84550; 85027; 87086

== ENCOUNTER 2019-05-31 16:40 | Emergency (ER) | payer OTHER ==
[2019-05-31 16:46] VITALS: BP 116/78; PULSE 88; RESP 20; TEMP 98.3
[2019-05-31] MEDS ORDERED: cefTRIAXone 1,000 MG VIAL (IM USE) IM STA (17:13)
[2019-05-31] MEDS ORDERED: LIDOCAINE 1% INJ 10MG/ML (20 ML MDV) SQ ONE (17:21)
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
== END 2019-05-31 17:37 | disposition home or self-care (01) ==
LOC: EC 16:40
DX: N39.0 Urinary tract infection, site not specified (principal); I48.0 Paroxysmal atrial fibrillation; J44.9 Chronic obstructive pulmonary disease, unspecified; I25.119 Atherosclerotic heart disease of native coronary artery with unspecified angina pectoris; E78.5 Hyperlipidemia, unspecified; I12.9 Hypertensive chronic kidney disease with stage 1 through stage 4 chronic kidney disease, or unspecified chronic kidney disease; N18.4 Chronic kidney disease, stage 4 (severe); E03.9 Hypothyroidism, unspecified; F31.9 Bipolar disorder, unspecified; F41.9 Anxiety disorder, unspecified; Z87.891 Personal history of nicotine dependence; Z88.1 Allergy status to other antibiotic agents; Z88.2 Allergy status to sulfonamides; Z79.01 Long term (current) use of anticoagulants; Z79.82 Long term (current) use of aspirin; Z79.890 Hormone replacement therapy; Z79.899 Other long term (current) drug therapy; Z86.73 Personal history of transient ischemic attack (TIA), and cerebral infarction without residual deficits; Z99.2 Dependence on renal dialysis; Z86.718 Personal history of other venous thrombosis and embolism; Z86.14 Personal history of Methicillin resistant Staphylococcus aureus infection; Z95.5 Presence of coronary angioplasty implant and graft
CPT/HCPCS: 99283; 96372; J2001; J0696

== ENCOUNTER 2019-06-16 18:49 | Inpatient (IN) | payer MEDICARE, OTHER ==
[2019-06-16] MEDS ORDERED: SODIUM CHLORIDE 0.9% 500 ML 500 ML IV STA (19:16)
[2019-06-16] MEDS ORDERED: SODIUM CHLORIDE 0.9% 1,000 ML IV ONE ×2 (19:25→22:42)
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
[2019-06-16 20:00] LABS: Basophils % (A) 1 %; Eosinophils # (A) 0.3 k/uL (0-0.7); Eosinophils % (A) 4 %; HCT 31.4 % (34.0-46.0); HGB 10.2 gm/dL (11.4-16.0); Lymphocytes % (A) 30 %; MCH 30.3 pg (25.0-35.0); MCHC 32.4 g/dL (31.0-37.0); MCV 93.3 fL (80.0-100.0); Mean Platelet Volume 7.6; Monocytes # (A) 0.3 k/uL (0-1.0); Monocytes % (A) 5 %; Neutrophils # (A) 3.8 k/uL (1.3-7.7); Neutrophils % (A) 58 %; Platelet Count 242 k/uL (150-450); RBC 3.36 m/uL (3.80-5.40); RDW 15.2 % (11.5-15.5); WBC 6.6 k/uL (3.8-10.6)
[2019-06-16 20:08] LABS: Albumin 3.1 g/dL (3.5-5.0); Magnesium 1.9 mg/dL (1.6-2.3); Potassium 4.4 mmol/L (3.5-5.1); Total Bilirubin 0.2 mg/dL (0.2-1.3); Total Protein 6.5 g/dL (6.3-8.2)
--- NOTE | 2019-06-16 20:11 | XR ---
EXAMINATION TYPE: XR chest 2V DATE OF EXAM: 06/16/2019 COMPARISON: 05/25/2019 HISTORY: Weakness. Cough. TECHNIQUE: FINDINGS: Heart is enlarged. There is coarsening of the lung markings. There is no pulmonary consolid ation. There is no heart failure. There is slight blunting right costophrenic angle. There is osteope daniel. IMPRESSION: Cardiomegaly and mild pulmonary fibrosis. No heart failure seen. Mild pleural scarring at the right lung base. No change compared to old exam.
[2019-06-16 20:17] LABS: Prothrombin Time 10.7 sec (9.0-12.0)
--- NOTE | 2019-06-16 20:22 | XR ---
EXAMINATION TYPE: XR shoulder complete BILAT DATE OF EXAM: 06/16/2019 COMPARISON: NONE HISTORY: Weakness. Pain. TECHNIQUE: 3 views each shoulder FINDINGS: I see no fracture nor dislocation. Joint spaces are fairly normal. There are no pathologic calcifications. AC joint spaces are normal. IMPRESSION: Negative bilateral shoulder exam. No fracture seen.
[2019-06-16 20:55] LABS: Appearance,Urine Clear (Clear); Bacteria,Urine Rare /hpf; Bilirubin,Urine Negative (Negative); Blood,Urine Moderate (Negative); Color,Urine Light Yellow; Glucose,Urine (UA) Negative (Negative); Hyaline Casts,Urine 1 /lpf (0-2); Ketones,Urine Negative (Negative); Leukocyte Esterase,Urine Trace (Negative); Mucus,Urine Rare /hpf; Nitrite,Urine Negative (Negative); PH, Urine 5.5 (5.0-8.0); Protein,Urine Trace (Negative); RBC,Urine 14 /hpf (0-5); Specific Gravity,Urine 1.012 (1.001-1.035); Squamous Epithelial Cell,Urine 2 /hpf (0-4); Urobilinogen,Urine <2.0 mg/dL (<2.0); WBC,Urine 4 /hpf (0-5)
[2019-06-16] MEDS ORDERED: NALOXONE 0.4 MG/ML 1 ML VIAL IV PRN (22:41)
[2019-06-16] MEDS ORDERED: ONDANSETRON 4 MG/2 ML VIAL IVP PRN (22:41)
[2019-06-17] MEDS ORDERED: MONTELUKAST 10 MG TAB PO SCH (01:17)
[2019-06-17] MEDS ORDERED: MELATONIN 3 MG TABLET PO SCH (01:17)
[2019-06-17] MEDS ORDERED: BENZONATATE 100 MG CAP PO PRN (01:17)
[2019-06-17] MEDS ORDERED: IPRATROPIUM-ALBUTEROL 3 ML NEB INHALATION PRN (01:19)
[2019-06-17] MEDS ORDERED: METOPROLOL TARTRATE 50 MG TAB PO SCH (01:30)
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
[2019-06-17] MEDS ORDERED: SODIUM CHLORIDE 0.9% 1,000 ML IV SCH (02:00)
[2019-06-17] MEDS ORDERED: LEVOTHYROXINE 88 MCG TAB PO SCH (06:30)
[2019-06-17] MEDS ORDERED: HEPARIN SODIUM,PORCINE 5,000 UNIT/ML 1 ML VIAL SQ SCH (08:00)
[2019-06-17] MEDS ORDERED: ASPIRIN 81 MG PO SCH (09:00)
[2019-06-17] MEDS ORDERED: APIXABAN 5 MG TAB PO SCH (09:00)
[2019-06-17] MEDS ORDERED: AMIODARONE 200 MG TAB PO SCH (09:00)
[2019-06-17] MEDS: IPRATROPIUM-ALBUTEROL 3 ML NEB INHALATION SCH ×2 (09:32→12:54)
[2019-06-17] MEDS ORDERED: ALPRAZolam 0.5 MG TAB PO PRN (11:17)
[2019-06-17 12:09] VITALS: BP 116/71; PULSE 76; RESP 16; TEMP 97.7
--- NOTE | 2019-06-17 12:38 | P.DS ---
Providers Date of admission: 06/16/19 22:38 Expected date of discharge: 06/17/19 Attending physician: Juvenal Graham MD Consults: 06/17/19 01:50 Consult Physician Routine Consulting Provider: Samuel Albarran Consult Reason/Comments: patient known to doctor Do you want consulting provider notified?: Yes, Notify in am Primary care physician: Lia Middleton Hospital Course: Discharge diagnosis medication induced hypotension Generalized weakness Recurrent falls Paroxysmal A. fib Hypothyroidism Chronic kidney disease stage IV Hospital course The patient is a 63-year-old female well-known to our facility that came in with generalized weakness and recurrent falls and difficulty getting up And getting around. On presentation the patient was found to be hypotensive EKG showed PVCs no significant with no suggestive a acute ischemia, The patient continued to be inside this mechanism and was not in A. fib. The patient was started on IV fluids, orthostatic vital signs were checked and were negative. After reconciling her medications her metoprolol was discontinued and she was continued on DOACS eliquis and amiodarone given her history of paroxysmal A. fib. The patient was found by physical therapy and deemed safe to go home. She was subsequently discharged home in stable condition and instructed to follow-up with her PCP. This discharge process took approximately 35 minutes A focused exam CV: RRR, no murmurs rubs or gallops Patient Condition at Discharge: Good Plan - Discharge Summary New Discharge Prescriptions: New Benzonatate [Tessalon Perles] 200 mg PO TID PRN #30 cap PRN Reason: Cough Continue Nitroglycerin Sl Tabs [Nitrostat] 0.4 mg SUBLINGUAL Q5M PRN PRN Reason: Chest Pain Omeprazole 20 mg PO HS #0 Montelukast [Singulair] 10 mg PO HS@2000 #0 Amiodarone [Cordarone] 200 mg PO DAILY Apixaban [Eliquis] 5 mg PO BID Sertraline HCl [Zoloft] 100 mg PO DAILY Ipratropium-Albuterol Nebulize [Duoneb 0.5 mg-3 mg/3 ml Soln] 3 ml INHALATION RT-QID PRN PRN Reason: Shortness Of Breath Albuterol Inhaler [Ventolin Hfa Inhaler] 1 - 2 puff INHALATION RT-Q6H PRN PRN Reason: Shortness Of Breath Atorvastatin [Lipitor] 20 mg PO HS Torsemide [Demadex] 10 mg PO DAILY #0 Allopurinol [Zyloprim] 100 mg PO DAILY Estradiol Cream [Estrace Cream 0.01%] 1 gm VAGINAL Q7DAYS Levothyroxine Sodium [Synthroid] 75 mcg PO DAILY QUEtiapine [SEROquel] 100 mg PO HS traZODone HCL [Desyrel] 100 mg PO HS PRN PRN Reason: Insomnia ALPRAZolam [Xanax] 1 mg PO Q8H PRN #30 tab PRN Reason: Anxiety Discontinued Metoprolol Tartrate [Lopressor] 25 mg PO DAILY Discharge Medication List Nitroglycerin Sl Tabs [Nitrostat] 0.4 mg SUBLINGUAL Q5M PRN 12/29/13 [History] Montelukast [Singulair] 10 mg PO HS@1999 #0 12/06/18 [Rx] Omeprazole 20 mg PO HS #0 12/06/18 [Rx] Amiodarone [Cordarone] 200 mg PO DAILY 12/22/18 [History] Apixaban [Eliquis] 5 mg PO BID 12/22/18 [History] Sertraline HCl [Zoloft] 100 mg PO DAILY 12/22/18 [History] Albuterol Inhaler [Ventolin Hfa Inhaler] 1 - 2 puff INHALATION RT-Q6H PRN 02/26/19 [History] Ipratropium-Albuterol Nebulize [Duoneb 0.5 mg-3 mg/3 ml Soln] 3 ml INHALATION RT-QID PRN 02/26/19 [History] Atorvastatin [Lipitor] 20 mg PO HS 03/09/19 [History] Torsemide [Demadex] 10 mg PO DAILY #0 04/23/19 [Rx] ALPRAZolam [Xanax] 1 mg PO Q8H PRN #30 tab 06/17/19 [Rx] Allopurinol [Zyloprim] 100 mg PO DAILY 06/17/19 [History] Benzonatate [Tessalon Perles] 200 mg PO TID PRN #30 cap 06/17/19 [Rx] Estradiol Cream [Estrace Cream 0.01%] 1 gm VAGINAL Q7DAYS 06/17/19 [History] Levothyroxine Sodium [Synthroid] 75 mcg PO DAILY 06/17/19 [History] QUEtiapine [SEROquel] 100 mg PO HS 06/17/19 [History] traZODone HCL [Desyrel] 100 mg PO HS PRN 06/17/19 [History] Follow up Appointment(s)/Referral(s): Lia Middleton MD [Primary Care Provider] - 1-2 days
[2019-06-17] MEDS ORDERED: PANTOPRAZOLE 40 MG TABLET PO SCH (21:00)
[2019-06-17] MEDS ORDERED: ATORVASTATIN 20 MG TAB PO SCH (21:00)
== END 2019-06-17 14:14 | disposition home or self-care (01) | DRG 312 ==
LOC: EC 18:49 → 3SCARD 22:38
PROVIDERS: ADMIT Internal Medicine; ATTEND Internal Medicine
DX: I95.2 Hypotension due to drugs (principal); N18.4 Chronic kidney disease, stage 4 (severe); T44.7X5A Adverse effect of beta-adrenoreceptor antagonists, initial encounter; D64.9 Anemia, unspecified; E03.9 Hypothyroidism, unspecified; E78.5 Hyperlipidemia, unspecified; F32.9 Major depressive disorder, single episode, unspecified; F41.9 Anxiety disorder, unspecified; G31.84 Mild cognitive impairment of uncertain or unknown etiology; I12.9 Hypertensive chronic kidney disease with stage 1 through stage 4 chronic kidney disease, or unspecified chronic kidney disease; I25.10 Atherosclerotic heart disease of native coronary artery without angina pectoris; I48.0 Paroxysmal atrial fibrillation; I49.3 Ventricular premature depolarization; R29.6 Repeated falls; J44.9 Chronic obstructive pulmonary disease, unspecified; K21.9 Gastro-esophageal reflux disease without esophagitis; M25.512 Pain in left shoulder; Z79.01 Long term (current) use of anticoagulants; Z79.82 Long term (current) use of aspirin; Z79.890 Hormone replacement therapy; Z79.899 Other long term (current) drug therapy; Z90.710 Acquired absence of both cervix and uterus; Z87.891 Personal history of nicotine dependence; Z87.828 Personal history of other (healed) physical injury and trauma; Z86.73 Personal history of transient ischemic attack (TIA), and cerebral infarction without residual deficits; Z86.718 Personal history of other venous thrombosis and embolism; Z86.14 Personal history of Methicillin resistant Staphylococcus aureus infection; Z87.440 Personal history of urinary (tract) infections; Z87.01 Personal history of pneumonia (recurrent); Z88.1 Allergy status to other antibiotic agents; Z88.2 Allergy status to sulfonamides; Z90.49 Acquired absence of other specified parts of digestive tract; Z95.5 Presence of coronary angioplasty implant and graft; Z98.42 Cataract extraction status, left eye; Z98.41 Cataract extraction status, right eye; Z96.1 Presence of intraocular lens; Z80.9 Family history of malignant neoplasm, unspecified
CPT/HCPCS: 36415; 71046; 80053; 81001; 82306; 82607; 83605; 83735; 84439; 84443; 84484; 85025; 85610; 85730; 93005; 94640; 96360; 96361; 99285

== ENCOUNTER 2019-06-17 19:02 | Emergency (ER) | payer OTHER ==
[2019-06-17 19:10] VITALS: RESP 18; TEMP 98.1
[2019-06-17] MEDS ORDERED: LIDOCAINE 5% PATCH TOPICAL STA (19:36)
[2019-06-17] MEDS ORDERED: HYDROcodone/APAP 5-325MG 1 EACH TAB PO STA (19:36)
--- NOTE | 2019-06-17 20:19 | CT ---
EXAMINATION TYPE: CT abdomen pelvis wo con DATE OF EXAM: 06/17/2019 COMPARISON: 04/17/2019 HISTORY: Right side abdominal pain after fall injury x1 day ago CT DLP: 584 mGycm Automated exposure control for dose reduction was used. TECHNIQUE: Helical acquisition of images was performed from the lung bases through the pelvis. FINDINGS: Lack of intravenous and oral contrast limit evaluation of both the hollow and solid viscera . LUNG BASES: Redemonstration of fibrotic changes of the lung base with groundglass airspace disease at the right lung base, likely atelectasis. Multifocal pleural parenchymal scarring. Moderate hiatal he rnia. Heart is enlarged. Very trace left pleural effusion. LIVER/GB: Unenhanced liver is unremarkable in morphology. Gallbladder surgically absent. PANCREAS: No significant abnormality is seen. SPLEEN: No significant abnormality is seen. ADRENALS: No significant abnormality is seen. KIDNEYS: Fat-containing subcentimeter right lower pole angiomyolipoma is seen. No hydronephrosis or n ephrolithiasis of either kidney. FREE AIR: No free air is visualized ADENOPATHY: No greater than 1 cm short axis lymph node in the abdomen or pelvis. OSSEOUS STRUCTURES: There is sclerosis of the right pubic bone and some periosteal reaction similar to the prior exam. BOWEL: Numerous colonic diverticula without pericolonic fat stranding. Low-lying loops of small odalis l approach a fat filled right inguinal hernia but do not enter the hernia defect. The appendix is not seen and may be surgically absent. Terminal ileum is unremarkable. Coronal images demonstrate decomp ression of the transverse colon in the appearance of bowel wall thickening also flexure that could re late to incomplete distention. OTHER: Subcutaneous fat stranding is again seen over the gluteal region, slightly increased from the prior. This is seen multifocally. There is severe atherosclerosis of the abdominal aorta and its bran ches. Diastases recti throughout. IMPRESSION: 1. Findings of the transverse colon and splenic flexure that could relate to incomplete distention or mild acute uncomplicated colitis. 2. Numerous sigmoid diverticula and descending colonic diverticula without evidence of acute divertic ulitis. 3. Abnormal sclerosis of the right pubic bone. This could be on the basis of osteitis pubis, arthriti s, or less likely neoplastic process. 4. Fibrotic of the lung bases are redemonstrated as seen on the prior. Aeration compared to the prior . Residual airspace disease likely represents atelectasis. 5. Slightly worsening multifocal subcutaneous fat stranding medial region. 6. Moderate hiatal hernia.
[2019-06-17] MEDS ORDERED: HYDROmorphone 1 MG/ML 1 ML SYRINGE IM STA (20:33)
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
[2019-06-17 20:44] VITALS: BP 108/69; PULSE 80
== END 2019-06-17 20:51 | disposition home or self-care (01) ==
LOC: EC 19:02
DX: R10.9 Unspecified abdominal pain (principal); K57.30 Diverticulosis of large intestine without perforation or abscess without bleeding; K63.89 Other specified diseases of intestine; M89.8X8 Other specified disorders of bone, other site; J84.10 Pulmonary fibrosis, unspecified; K44.9 Diaphragmatic hernia without obstruction or gangrene; I48.0 Paroxysmal atrial fibrillation; J44.9 Chronic obstructive pulmonary disease, unspecified; E78.5 Hyperlipidemia, unspecified; I12.9 Hypertensive chronic kidney disease with stage 1 through stage 4 chronic kidney disease, or unspecified chronic kidney disease; N18.3 Chronic kidney disease, stage 3 (moderate); E03.9 Hypothyroidism, unspecified; F31.9 Bipolar disorder, unspecified; F41.9 Anxiety disorder, unspecified; Z87.891 Personal history of nicotine dependence; Z88.1 Allergy status to other antibiotic agents; Z88.2 Allergy status to sulfonamides; Z79.01 Long term (current) use of anticoagulants; Z79.890 Hormone replacement therapy; Z79.899 Other long term (current) drug therapy; Z86.73 Personal history of transient ischemic attack (TIA), and cerebral infarction without residual deficits; Z99.2 Dependence on renal dialysis; Z86.718 Personal history of other venous thrombosis and embolism; Z86.14 Personal history of Methicillin resistant Staphylococcus aureus infection; Z90.49 Acquired absence of other specified parts of digestive tract; Z95.5 Presence of coronary angioplasty implant and graft; W19.XXXA Unspecified fall, initial encounter; Y92.000 Kitchen of unspecified non-institutional (private) residence as the place of occurrence of the external cause
CPT/HCPCS: 99284; 96372; 74176; J1170

== ENCOUNTER 2019-06-17 23:35 | Emergency (ER) | payer MEDICARE, OTHER ==
[2019-06-17 23:45] VITALS: TEMP 97.6
[2019-06-17] MEDS ORDERED: SODIUM CHLORIDE 0.9% 500 ML 500 ML IV ONE (23:50)
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
[2019-06-18] MEDS ORDERED: NALOXONE 0.4 MG/ML 1 ML VIAL IV STA (02:24)
[2019-06-18 02:57] VITALS: BP 103/63; PULSE 80; RESP 18
== END 2019-06-18 03:30 | disposition home or self-care (01) ==
LOC: EC 23:35
DX: I95.9 Hypotension, unspecified (principal); T44.7X1A Poisoning by beta-adrenoreceptor antagonists, accidental (unintentional), initial encounter; J44.9 Chronic obstructive pulmonary disease, unspecified; I12.9 Hypertensive chronic kidney disease with stage 1 through stage 4 chronic kidney disease, or unspecified chronic kidney disease; N18.3 Chronic kidney disease, stage 3 (moderate); I48.0 Paroxysmal atrial fibrillation; E03.9 Hypothyroidism, unspecified; F41.9 Anxiety disorder, unspecified; F32.9 Major depressive disorder, single episode, unspecified; E78.5 Hyperlipidemia, unspecified; Z79.01 Long term (current) use of anticoagulants; Z79.899 Other long term (current) drug therapy; Z79.890 Hormone replacement therapy; Z88.1 Allergy status to other antibiotic agents; Z88.2 Allergy status to sulfonamides; Z86.718 Personal history of other venous thrombosis and embolism; Z86.73 Personal history of transient ischemic attack (TIA), and cerebral infarction without residual deficits; Z87.891 Personal history of nicotine dependence; Z90.49 Acquired absence of other specified parts of digestive tract; Z95.5 Presence of coronary angioplasty implant and graft; Z90.710 Acquired absence of both cervix and uterus; Z99.2 Dependence on renal dialysis; Z86.14 Personal history of Methicillin resistant Staphylococcus aureus infection
CPT/HCPCS: 99284 ×2; 96374 ×2; 96372; 74176; J1170

== ENCOUNTER 2019-06-18 | Emergency (ER) | payer OTHER | END 2019-06-18 23:33 | disposition home or self-care (01) | CPT/HCPCS: 81001; 72070; 71046; 99284; 96372; J2310 ==

== ENCOUNTER 2019-07-02 09:35 | Inpatient (IN) | payer MEDICARE, OTHER ==
[2019-07-02] MEDS ORDERED: SODIUM CHLORIDE 0.9% 500 ML 500 ML IV STA (09:51)
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
[2019-07-02 10:09] LABS: Basophils % (A) 0 %; Eosinophils # (A) 0.4 k/uL (0-0.7); Eosinophils % (A) 4 %; HCT 33.9 % (34.0-46.0); HGB 11.1 gm/dL (11.4-16.0); Lymphocytes # (A) 1.2 k/uL (1.0-4.8); Lymphocytes % (A) 13 %; MCH 30.5 pg (25.0-35.0); MCHC 32.7 g/dL (31.0-37.0); MCV 93.3 fL (80.0-100.0); Mean Platelet Volume 7.6; Monocytes # (A) 0.3 k/uL (0-1.0); Monocytes % (A) 3 %; Neutrophils # (A) 7.2 k/uL (1.3-7.7); Neutrophils % (A) 78 %; Platelet Count 290 k/uL (150-450); RBC 3.63 m/uL (3.80-5.40); RDW 15.8 % (11.5-15.5); WBC 9.3 k/uL (3.8-10.6)
[2019-07-02 10:17] LABS: Albumin 3.9 g/dL (3.5-5.0); Potassium 4.7 mmol/L (3.5-5.1); Total Bilirubin 0.4 mg/dL (0.2-1.3); Total Protein 7.5 g/dL (6.3-8.2)
--- NOTE | 2019-07-02 10:52 | CT ---
EXAMINATION TYPE: CT brain wo con DATE OF EXAM: 07/02/2019 COMPARISON: Previous study dated 04/16/2019 HISTORY: seizure CT DLP: 1099.4 mGycm Automated exposure control for dose reduction was used. FINDINGS: There are generalized changes of sulcal prominence and ventriculomegaly, compatible with atrophic oralia nge. There is diffuse periventricular white matter lucency, compatible with chronic white matter isch emic change. There is no acute focal lesion, mass effect or midline shift identified. I do not see ev idence of intracranial blood. There is mucoperiosteal thickening involving the ethmoid air cells bilaterally. There is also small a mount of mucoperiosteal thickening involving the maxillary sinuses bilaterally. The mastoid air cells are clear. The bony calvarium is intact. IMPRESSION: 1. NO ACUTE INTRACRANIAL ABNORMALITY. 2. MILD DEGENERATIVE CHANGE. 3. 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
[2019-07-02 11:24] LABS: Appearance,Urine Cloudy (Clear); Bacteria,Urine Few /hpf; Bilirubin,Urine Negative (Negative); Blood,Urine Small (Negative); Color,Urine Light Yellow; Glucose,Urine (UA) Negative (Negative); Ketones,Urine Negative (Negative); Leukocyte Esterase,Urine Trace (Negative); Nitrite,Urine Positive (Negative); PH, Urine 7.5 (5.0-8.0); Protein,Urine Trace (Negative); RBC,Urine 6 /hpf (0-5); Squamous Epithelial Cell,Urine 4 /hpf (0-4); Urobilinogen,Urine <2.0 mg/dL (<2.0); WBC,Urine 8 /hpf (0-5)
[2019-07-02] MEDS ORDERED: cefTRIAXone IN SWFI 1,000 MG/10 ML SYRINGE IVP STA (11:33)
[2019-07-02] MEDS ORDERED: NALOXONE 0.4 MG/ML 1 ML VIAL IV PRN ×2 (11:52→12:23)
[2019-07-02] MEDS ORDERED: ACETAMINOPHEN TAB 325 MG TAB PO PRN (11:52)
[2019-07-02] MEDS ORDERED: ONDANSETRON 4 MG/2 ML VIAL IVP PRN (11:52)
[2019-07-02] MEDS ORDERED: levETIRAcetam IV 1,000 MG in SALINE 1 100ML.BAG IVPB STA (11:58)
[2019-07-02] MEDS ORDERED: traZODone HCL 100 MG TAB PO PRN (12:25)
[2019-07-02] MEDS ORDERED: ALPRAZolam 1 MG TAB PO PRN (12:25)
[2019-07-02] MEDS ORDERED: IPRATROPIUM-ALBUTEROL 3 ML NEB INHALATION PRN (12:25)
[2019-07-02] MEDS ORDERED: NITROGLYCERIN SL TABS 0.4 MG TAB SUBLINGUAL PRN (12:25)
[2019-07-02] MEDS ORDERED: LORazepam 2 MG/ML INJ IV PRN (12:28)
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
[2019-07-02] MEDS: ALLOPURINOL 100 MG TAB PO SCH (16:24)
[2019-07-02] MEDS: MONTELUKAST 10 MG TAB PO SCH (21:53)
[2019-07-02] MEDS: PANTOPRAZOLE 40 MG TABLET PO SCH (21:53)
[2019-07-02] MEDS: QUEtiapine 100 MG TAB PO SCH (21:53)
[2019-07-02] MEDS: ATORVASTATIN 20 MG TAB PO SCH (21:53)
[2019-07-02] MEDS: APIXABAN 5 MG TAB PO SCH (21:53)
[2019-07-03] MEDS: LEVOTHYROXINE 75 MCG TAB PO SCH (06:21)
[2019-07-03 06:35] LABS: Albumin 3.4 g/dL (3.5-5.0); Calcium 8.8 mg/dL (8.4-10.2); Magnesium 2.2 mg/dL (1.6-2.3); Phosphorus 4.2 mg/dL (2.5-4.5); Total Bilirubin 0.3 mg/dL (0.2-1.3); Total Protein 6.7 g/dL (6.3-8.2)
[2019-07-03 06:55] LABS: Basophils # (A) 0.1 k/uL (0-0.2); Basophils % (A) 1 %; Eosinophils # (A) 0.4 k/uL (0-0.7); Eosinophils % (A) 4 %; HCT 32.3 % (34.0-46.0); HGB 10.3 gm/dL (11.4-16.0); Lymphocytes # (A) 1.7 k/uL (1.0-4.8); Lymphocytes % (A) 18 %; MCH 30.4 pg (25.0-35.0); MCHC 31.8 g/dL (31.0-37.0); MCV 95.5 fL (80.0-100.0); Mean Platelet Volume 7.4; Monocytes # (A) 0.5 k/uL (0-1.0); Monocytes % (A) 5 %; Neutrophils # (A) 6.5 k/uL (1.3-7.7); Neutrophils % (A) 70 %; Platelet Count 260 k/uL (150-450); RBC 3.38 m/uL (3.80-5.40); RDW 15.7 % (11.5-15.5); WBC 9.3 k/uL (3.8-10.6)
[2019-07-03] MEDS: SERTRALINE 100 MG TAB PO SCH (08:41)
[2019-07-03] MEDS: APIXABAN 5 MG TAB PO SCH ×2 (08:42→21:38)
[2019-07-03] MEDS: AMIODARONE 200 MG TAB PO SCH (08:42)
[2019-07-03] MEDS: FUROSEMIDE 20 MG TAB PO SCH (08:42)
[2019-07-03] MEDS: ALLOPURINOL 100 MG TAB PO SCH (08:42)
--- NOTE | 2019-07-03 11:58 | MR ---
EXAMINATION TYPE: MR brain wo con DATE OF EXAM: 07/03/2019 11:50 AM COMPARISON: NONE HISTORY: Neurologic symptoms FINDINGS: The ventricles, basal cisterns and sulci overlying the cerebral convexities are mildly enlarged. There is evidence of moderate periventricular white matter ischemic demyelination. Remote deep white matter insults are also noted. Underlying demyelination difficult to exclude. No acute edema is seen on diffusion weighted imaging. There is no evidence for midline shift or mass effect. Acute intracranial hemorrhage or extra-axial collection is not evident. The paranasal sinuses and mastoid air cells are well-aerated. IMPRESSION: Age-related atrophic and chronic small vessel ischemic change. No acute intracranial process at this time.
--- NOTE | 2019-07-03 15:51 | P.PN ---
Subjective Progress Note Date: 07/03/19 Principal diagnosis: seizure Patient was having some coughing while doing the EEG, otherwise she is feeling ok, no seizure observed since admission. Objective - Vital Signs Vital signs: Vital Signs Temp 97.9 F 07/03/19 14:00 Pulse 83 07/03/19 14:00 Resp 16 07/03/19 15:29 BP 101/52 07/03/19 14:00 Pulse Ox 95 07/03/19 14:00 Intake & Output 07/02/19 07/03/19 07/03/19 18:59 06:59 18:59 Intake Total 20 300 Output Total 2 Balance 20 298 Weight 61.235 kg Intake: Oral 20 300 Output: Urine/Stool Mix 2 Other: Voiding Method Bedside Commode Bedside Commode Diaper Diaper Incontinent Incontinent # Voids 1 # Bowel Movements 2 - Exam Constitutional: No acute distress, conversant, pleasant Eyes:Anicteric sclerae, moist conjunctiva, no lid-lag, PERRLA, ENMT: Oropharynx clear, no erythema, exudates Neck: Supple, FROM, no masses, or JVD, No carotid bruits, No thyromegaly Lungs: Clear to auscultation, Clear to percussion, Normal respiratory effort, no accessory muscle use Cardiovascular: Heart regular in rate and rhythm, No murmurs, gallops, or rubs, No peripheral edema Abdominal: Soft, Nontender, no guarding, rebound or rigidity, Normoactive bowel sounds, No hepatomegaly, No splenomegaly, No palpable mass Skin: Normal temperature, tone, texture, turgor, no induration, No subcutaneous nodules, No rash, lesions, No ulcers Extremities: No digital cyanosis, No clubbing, Pedal pulses intact and symmetrical, Radial pulses intact and symmetrical, No calf tenderness Psychiatric: Alert and oriented to person, place and time, appropriate affect, intact judgement Neuro: Muscles Strength 5/5 in all 4 extremities, Sensation to light touch grossly present throughout, Cranial nerves II-XII grossly intact, no focal sensory deficits - Labs CBC & Chem 7: 07/03/19 06:06 07/03/19 06:06 Labs: Abnormal Lab Results - Last 24 Hours (Table) 07/03/19 07/03/19 Range/Units 06:06 06:06 RBC 3.38 L (3.80-5.40) m/uL Hgb 10.3 L (11.4-16.0) gm/dL Hct 32.3 L (34.0-46.0) % RDW 15.7 H (11.5-15.5) % Sodium 135 L (137-145) mmol/L BUN 24 H (7-17) mg/dL Creatinine 2.14 H (0.52-1.04) mg/dL AST 52 H (14-36) U/L Alkaline Phosphatase 128 H (38-126) U/L Albumin 3.4 L (3.5-5.0) g/dL Microbiology - Last 24 Hours (Table) 07/02/19 11:51 Blood Culture - Preliminary Blood No Growth after 24 hours 07/02/19 10:55 Urine Culture - Preliminary Urine,Catheterized Assessment and Plan Plan: New-onset seizure MRI brain with contrast did not reveal any masses or ischemia EEG done awaiting report Ativan IV when necessary Patient takes benzodiazepines, and Xanax at home, rule out withdrawal induced seizures Seen by neurology Paroxysmal atrial Fibrillation, Asthma, CAD COPD, Deep Vein Thrombosis (DVT), GERD/Reflux, Hyperlipidemia, Hypertension All chronic and stable Resume meds Anticipated discharge: 1 days Anticipated disposition: Home
[2019-07-03] MEDS: ATORVASTATIN 20 MG TAB PO SCH (21:38)
[2019-07-03] MEDS: MONTELUKAST 10 MG TAB PO SCH (21:38)
[2019-07-03] MEDS: PANTOPRAZOLE 40 MG TABLET PO SCH (21:38)
[2019-07-03] MEDS: QUEtiapine 100 MG TAB PO SCH (22:24)
[2019-07-03] MEDS: levETIRAcetam IV 250 MG in SODIUM CHLORIDE 0.9% 100 ML IVPB SCH (23:38)
--- NOTE | 2019-07-04 00:39 | P.PN ---
Progress Note - Text Progress Note Date: 07/04/19 RN called me , saying daughter is concerned regarding a cough that has been going on for 1 week. patient has been here for two days, i reviewed todays note, and noted cough during EEG. but not clear if there was a full discussion or plan regarding that patient asymptomatic. on room air Oxygen sat 97%, no fevers. no lymphopenia. no known positive covid contact. understanding that COVID is in the community, and could be asymptomatic or mild illness. i was concerned regarding the following . if i move her to covid floor , and she does not have COVID then by that she is exposed to COVID. plan is to get chest xray , (COVID patient can still have negative chest xray) but if it shows early changes that has been recognized with COVID patients , then i would transfer her to COVID floor and start the testing otherwise i would leave it to the discretion of the morning team who knows her best and has been following her for 2 days now.
--- NOTE | 2019-07-04 02:54 | XR ---
EXAMINATION TYPE: XR chest 1V DATE OF EXAM: 07/04/2019 COMPARISON: 06/18/2019 HISTORY: Back pain cough TECHNIQUE: FINDINGS: Heart appears slightly enlarged. There is no heart failure. Lungs are clear of infiltrate. Bony thorax is intact. There is no definite pleural effusion. IMPRESSION: Mild cardiomegaly. No acute lung disease. No change. There is probably some mild pulmonar y fibrosis.
[2019-07-04] MEDS: LEVOTHYROXINE 75 MCG TAB PO SCH (07:06)
[2019-07-04] MEDS: FUROSEMIDE 20 MG TAB PO SCH ×2 (08:06→08:07)
[2019-07-04] MEDS: APIXABAN 5 MG TAB PO SCH (08:06)
[2019-07-04] MEDS: AMIODARONE 200 MG TAB PO SCH (08:06)
[2019-07-04] MEDS: SERTRALINE 100 MG TAB PO SCH (08:06)
[2019-07-04] MEDS: ALLOPURINOL 100 MG TAB PO SCH (08:06)
[2019-07-04] MEDS: levETIRAcetam IV 250 MG in SODIUM CHLORIDE 0.9% 100 ML IVPB SCH (12:13)
--- NOTE | 2019-07-04 12:22 | EEG ---
ELECTROENCEPHALOGRAM REPORT DATE OF SERVICE: July 03, 2019 HISTORY: This is an inpatient EEG performed on a 64-year-old female with a known history of chronic urinary tract infections and COPD exacerbations. The patient was admitted for new onset seizure activity. This EEG is ordered to rule out underlying seizure tendency and establish a baseline. The patient has not had any prior EEG studies known. MEDICATIONS: Home Medications: See EMR. TECHNICAL REPORT: This is an inpatient EEG performed on the [employer] EEG monitor with electrodes placed according to the international 10-20 system and a single EKG channel. Simultaneous video EEG monitoring was performed. This EEG was reviewed on both longitudinal bipolar, transverse montage and average referential montages. Photic stimulation was performed. Hyperventilation was not performed. The EEG begins with the patient in wakefulness. A moderate to high amplitude recording is noted. The wake background consists of 8 to maximum 9 Hz alpha rhythm that attenuates with eye opening. Low amplitude beta activity is prominent over the anterior and central head regions. Intermittent muscle and movement artifact contaminates the tracing. Photic stimulation was performed at various flash frequencies and failed to elicit consistent driving response. Following photic stimulation, the patient briefly transitioned into stage I sleep/drowsiness. This was associated with attenuation of the background to slowing to 7 to 8 Hz frequencies in the posterior head region. Slow rolling eye movements were noted along with an increase in beta activity anteriorly and centrally. This lasted for several minutes until the patient was noted to have head movement which led to an arousal with increased motion movement artifact that temporarily made the recording difficulty to interpret. Deeper stages of sleep were not achieved. IMPRESSION: This is a normal wake, brief drowsy EEG study. No epileptiform activity, focal or hemispheric slowing was noted. No abnormalities were noted in the EKG or during photic stimulation. CLINICAL CORRELATION: This EEG does not rule out underlying seizure tendency thus further clinical correlation is needed. If clinically indicated, a more prolonged overnight study could provide additional information. MMODL / IJN: [id number] /
--- NOTE | 2019-07-04 14:54 | P.DS ---
Providers Date of admission: 07/04/19 12:09 Expected date of discharge: 07/04/19 Attending physician: Doris Rod MD Consults: 07/02/19 11:53 Consult Physician Routine Consulting Provider: Viviana Wolf Consult Reason/Comments: New-onset seizure Do you want consulting provider notified?: Yes, Notify in am Primary care physician: [facility] Course: 64-year-old female presents emergency Department with chief complaint of grand mal seizure. Patient does not recall the event, but it was described to the emergency department staff by . Patient has no history of seizures in the past. Patient was for post ictal for EMS but when she arrived to the emergency department she was awake and alert but slightly confused and tired. She denies chest pain, headache, dizziness, nausea, vomiting, fevers or chills. No recent illness. Patient denies any medication changes. Patient also denied any focal weakness or numbness. No slurred speech, blurred or double vision. In the emergency department she was evaluated by computed tomography scan of the head which showed no acute intracranial process. Labs showed chronically elevated creatinine, other than that they were essentially normal. Patient was admitted to the hospital for further evaluation and management for new onset seizure. Patient underwent MRI of the brain that did not show any masses or ischemia. She also had an EEG that did not show any focal epileptiform discharges. Urine showed pyuria but patient was not symptomatic so that was not treated. During the admission patient complained from cough which turned out to be chronic, slightly worse than prior. She had a chest x-ray which did not show any acute finding. She did not have any fevers, chills or shortness of breath that would suggest coronavirus infection. Further discussion with her daughter revealed that patient was recently started on allopurinol by her urologist because of elevated uric acid level. Daughter denied having history of any gout. I will discontinue the allopurinol upon discharge as it is known to lower the seizure threshold. Patient was evaluated by neurology as well who recommended starting her on Keppra 250 mg twice a day until following up with a neurologist with patient. Patient was instructed to follow up with neurology as well as her primary care physician. She will be discharged home in a stable condition. Patient Condition at Discharge: Fair Plan - Discharge Summary Discharge Rx Participant: No New Discharge Prescriptions: New levETIRAcetam [Keppra] 250 mg PO Q12HR 30 Days #60 tab Continue Nitroglycerin Sl Tabs [Nitrostat] 0.4 mg SUBLINGUAL Q5M PRN PRN Reason: Chest Pain Omeprazole 20 mg PO HS #0 Amiodarone [Cordarone] 200 mg PO DAILY Apixaban [Eliquis] 5 mg PO BID Sertraline HCl [Zoloft] 100 mg PO DAILY Ipratropium-Albuterol Nebulize [Duoneb 0.5 mg-3 mg/3 ml Soln] 3 ml INHALATION RT-QID PRN PRN Reason: Shortness Of Breath Albuterol Inhaler [Ventolin Hfa Inhaler] 1 - 2 puff INHALATION RT-Q6H PRN PRN Reason: Shortness Of Breath Atorvastatin [Lipitor] 20 mg PO HS Torsemide [Demadex] 10 mg PO DAILY #0 Estradiol Cream [Estrace Cream 0.01%] 1 gm VAGINAL Q7DAYS Levothyroxine Sodium [Synthroid] 75 mcg PO DAILY QUEtiapine [SEROquel] 100 mg PO HS traZODone HCL [Desyrel] 100 mg PO HS PRN PRN Reason: Insomnia ALPRAZolam [Xanax] 1 mg PO Q8H PRN #30 tab PRN Reason: Anxiety Discontinued Allopurinol [Zyloprim] 100 mg PO DAILY No Action Montelukast [Singulair] 10 mg PO HS@1999 #0 Discharge Medication List Nitroglycerin Sl Tabs [Nitrostat] 0.4 mg SUBLINGUAL Q5M PRN 12/29/13 [History] Montelukast [Singulair] 10 mg PO HS@1999 #0 12/06/18 [Rx] Omeprazole 20 mg PO HS #0 12/06/18 [Rx] Amiodarone [Cordarone] 200 mg PO DAILY 12/22/18 [History] Apixaban [Eliquis] 5 mg PO BID 12/22/18 [History] Sertraline HCl [Zoloft] 100 mg PO DAILY 12/22/18 [History] Albuterol Inhaler [Ventolin Hfa Inhaler] 1 - 2 puff INHALATION RT-Q6H PRN 02/26/19 [History] Ipratropium-Albuterol Nebulize [Duoneb 0.5 mg-3 mg/3 ml Soln] 3 ml INHALATION RT-QID PRN 02/26/19 [History] Atorvastatin [Lipitor] 20 mg PO HS 03/09/19 [History] Torsemide [Demadex] 10 mg PO DAILY #0 04/23/19 [Rx] ALPRAZolam [Xanax] 1 mg PO Q8H PRN #30 tab 06/17/19 [Rx] Estradiol Cream [Estrace Cream 0.01%] 1 gm VAGINAL Q7DAYS 06/17/19 [History] Levothyroxine Sodium [Synthroid] 75 mcg PO DAILY 06/17/19 [History] QUEtiapine [SEROquel] 100 mg PO HS 06/17/19 [History] traZODone HCL [Desyrel] 100 mg PO HS PRN 06/17/19 [History] levETIRAcetam [Keppra] 250 mg PO Q12HR 30 Days #60 tab 07/04/19 [Rx] Follow up Appointment(s)/Referral(s): Susan Cintron MD [STAFF PHYSICIAN] - 1 Week Lia Middleton MD [Primary Care Provider] - 1-2 days (please call office to set up appt.) Patient Instructions/Handouts: New-Onset Seizure in Adults (DC), Fall Prevention (DC)
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
[2019-07-04 15:43] VITALS: BP 107/66; PULSE 77; RESP 20; TEMP 98
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
== END 2019-07-04 17:40 | disposition home or self-care (01) | DRG 101 ==
LOC: EC 09:35 → INTOOBSV 11:56 → 5NMEDONC 11:56 → 6NMEDSUR 16:51 → OBSVTOIN 07-04 12:09
PROVIDERS: ADMIT Internal Medicine; ATTEND Internal Medicine
DX: G40.909 Epilepsy, unspecified, not intractable, without status epilepticus (principal); N18.4 Chronic kidney disease, stage 4 (severe); D64.9 Anemia, unspecified; E03.9 Hypothyroidism, unspecified; E78.5 Hyperlipidemia, unspecified; F31.9 Bipolar disorder, unspecified; F41.9 Anxiety disorder, unspecified; I12.9 Hypertensive chronic kidney disease with stage 1 through stage 4 chronic kidney disease, or unspecified chronic kidney disease; I25.10 Atherosclerotic heart disease of native coronary artery without angina pectoris; I48.0 Paroxysmal atrial fibrillation; J44.9 Chronic obstructive pulmonary disease, unspecified; K21.9 Gastro-esophageal reflux disease without esophagitis; R32 Unspecified urinary incontinence; Z79.01 Long term (current) use of anticoagulants; Z79.890 Hormone replacement therapy; Z79.899 Other long term (current) drug therapy; Z88.1 Allergy status to other antibiotic agents; Z88.2 Allergy status to sulfonamides; Z86.73 Personal history of transient ischemic attack (TIA), and cerebral infarction without residual deficits; Z87.01 Personal history of pneumonia (recurrent); Z87.440 Personal history of urinary (tract) infections; Z87.820 Personal history of traumatic brain injury; Z86.718 Personal history of other venous thrombosis and embolism; Z90.710 Acquired absence of both cervix and uterus; Z87.891 Personal history of nicotine dependence; Z86.14 Personal history of Methicillin resistant Staphylococcus aureus infection; Z90.49 Acquired absence of other specified parts of digestive tract; Z95.5 Presence of coronary angioplasty implant and graft; Z98.42 Cataract extraction status, left eye; Z98.41 Cataract extraction status, right eye; Z96.1 Presence of intraocular lens; Z80.9 Family history of malignant neoplasm, unspecified
CPT/HCPCS: 36415; 70450; 70551; 71045; 80053; 81001; 83735; 84100; 85025; 87040; 87077; 87086; 87186; 93005; 94640; 95816; 96374; 99285

== ENCOUNTER → 2020-02-28 | Outpatient (CLI) | payer MEDICARE, OTHER ==
--- NOTE | 2020-02-28 13:03 | XR ---
EXAMINATION TYPE: XR chest 2V DATE OF EXAM: 02/28/2020 COMPARISON: 07/04/2019 HISTORY: Shortness of breath TECHNIQUE: Frontal and lateral views of the chest are obtained. FINDINGS: Scattered senescent parenchymal changes noted. Hyperinflation compatible with COPD. No evidence for infiltrate. No evidence for atelectasis. Heart size is stable. Mediastinal structures are stable and grossly unremarkable. No evidence for hilar prominence. Degenerative changes dorsal spine. IMPRESSION: 1. No evidence for acute pulmonary disease.
--- NOTE | 2020-02-28 14:37 | CT ---
EXAMINATION TYPE: CT abdomen pelvis wo con DATE OF EXAM: 02/28/2020 HISTORY: Abdominal distention. CT DLP: 599.7 mGycm. Automated Exposure Control for Dose Reduction was Utilized. TECHNIQUE: CT scan of the abdomen and pelvis is performed with oral but without IV contrast. COMPARISON: CT abdomen and pelvis June 17, 2019 and older CTs FINDINGS: Within the limitations of a non-contrast study, the following observations are made. LUNG BASES: Persistent cardiomegaly with right coronary artery calcification and/or stent. Mild bibas ilar linear scarring and/or atelectasis. LIVER/GB: Cholecystectomy clips redemonstrated. PANCREAS: No significant abnormality is seen. SPLEEN: No significant abnormality is seen. ADRENALS: No significant abnormality is seen. KIDNEYS: Cortical thinning of both kidneys again seen. BOWEL: Small to moderate size hiatal hernia redemonstrated. Oral contrast reaches level of hepatic fl exure. No suspicious small or large bowel dilatation. Diverticula in the left and sigmoid colon redem onstrated without CT evidence for acute diverticulitis. [id number] diffuse colonic fecal promin ence. GENITAL ORGANS: Uterus surgically absent or markedly atrophic. Occasional tiny scattered left-sided p elvic phleboliths. LYMPH NODES: No greater than 1cm abdominal or pelvic lymph nodes are appreciated. OSSEOUS STRUCTURES: Facet arthropathy lower lumbar spine. Moderate joint space loss both hips redemon strated. OTHER: Moderate calcified plaque distal abdominal aorta extends into branch vessels. IMPRESSION: No new ascites. Mild to moderate colonic fecal stasis. No bowel obstruction. No new or ac laura findings evident.
== END | disposition home or self-care (01) ==
LOC: RADCTMAIN 12:29
PROVIDERS: ATTEND Family Medicine
DX: K59.89 Other specified functional intestinal disorders (principal)
CPT/HCPCS: 71046; 74176

== ENCOUNTER → 2020-04-10 | Outpatient (CLI) | payer MEDICARE, OTHER ==
[2020-04-10 11:54] LABS: Basophils % (A) 1 %; Eosinophils # (A) 0.4 k/uL (0-0.7); Eosinophils % (A) 6 %; HCT 39.6 % (34.0-46.0); HGB 12.5 gm/dL (11.4-16.0); Lymphocytes # (A) 1.6 k/uL (1.0-4.8); Lymphocytes % (A) 21 %; MCH 31.6 pg (25.0-35.0); MCHC 31.6 g/dL (31.0-37.0); MCV 99.9 fL (80.0-100.0); Mean Platelet Volume 7.6; Monocytes # (A) 0.3 k/uL (0-1.0); Monocytes % (A) 4 %; Neutrophils # (A) 5.2 k/uL (1.3-7.7); Neutrophils % (A) 67 %; Platelet Count 176 k/uL (150-450); RBC 3.96 m/uL (3.80-5.40); RDW 13.4 % (11.5-15.5); Reticulocyte % 1.5 % (0.5-2.0); WBC 7.8 k/uL (3.8-10.6)
[2020-04-10 20:20] LABS: % Iron Saturation 27.07 (12.00-45.00); African American GFR (CKD) 23.8 (60.0-200.0); Non-African American GFR(CKD) 20.5 (60.0-200.0)
[2020-04-10 20:28] LABS: T4, Free (Free Thyroxine) 0.9 ng/dL (0.80-1.80)
[2020-04-10 20:31] LABS: Ferritin 266.6 ng/mL (10.0-291.0)
[2020-04-10 20:54] LABS: Folate, Serum 12.5 ng/mL
== END | disposition home or self-care (01) ==
LOC: LABWHC1 10:53
PROVIDERS: ATTEND Psychiatry & Neurology Pain Medicine
DX: N19 Unspecified kidney failure (principal); D64.9 Anemia, unspecified; R53.83 Other fatigue; R20.8 Other disturbances of skin sensation
CPT/HCPCS: 36415; 82565; 82607; 82668; 82728; 82746; 83540; 83550; 84207; 84425; 84439; 84443; 84481; 84520; 84591; 85025; 85045

== ENCOUNTER → 2020-05-17 | Outpatient (CLI) | payer MEDICARE, OTHER ==
--- NOTE | 2020-05-17 08:56 | US ---
EXAMINATION TYPE: US abdomen complete DATE OF EXAM: 05/17/2020 COMPARISON: CT CLINICAL HISTORY: R14.0 Unspecified abdominal pain. abdominal distention EXAM MEASUREMENTS: Liver Length: 14.9 cm Gallbladder Wall: Surgically absent CBD: 0.9 cm Spleen: 10.8 cm Right Kidney: 6.9 x 3.9 x 3.5 cm Left Kidney: 9.0 x 3.7 x 4.5 cm Pancreas: visualized portions wnl Liver: wnl Gallbladder: Surgically absent CBD: measures 0.9 cm Spleen: wnl Right Kidney: atrophied Left Kidney: No hydronephrosis or masses seen Upper IVC: wnl Abd Aorta: visualized portions wnl The liver is homogenous. The intrahepatic portion of the IVC and proximal abdominal aorta are within normal limits. The visualized portions of the pancreas are homogenous. The spleen is unremarkable. The right kidney is diminutive in size. No renal lesions are seen. IMPRESSION: 1. Right renal atrophic change. 2. Postoperative changes of prior cholecystectomy.
== END | disposition home or self-care (01) ==
LOC: RADUSWWP 08:01
PROVIDERS: ATTEND Internal Medicine Gastroenterology
DX: N26.1 Atrophy of kidney (terminal) (principal); Z90.49 Acquired absence of other specified parts of digestive tract
CPT/HCPCS: 76700

== ENCOUNTER → 2020-07-16 | Outpatient (CLI) | payer MEDICARE, OTHER ==
[2020-07-16 16:14] LABS: Appearance,Urine Cloudy (Clear); Bacteria,Urine Moderate /hpf; Bilirubin,Urine Negative (Negative); Blood,Urine Moderate (Negative); Color,Urine Yellow; Glucose,Urine (UA) Negative (Negative); Ketones,Urine Negative (Negative); Leukocyte Esterase,Urine Moderate (Negative); Mucus,Urine Rare /hpf; Nitrite,Urine Negative (Negative); PH, Urine 5.5 (5.0-8.0); Protein,Urine 1+ (Negative); RBC,Urine 18 /hpf (0-5); Specific Gravity,Urine 1.015 (1.001-1.035); Squamous Epithelial Cell,Urine 6 /hpf (0-4); Urobilinogen,Urine <2.0 mg/dL (<2.0); WBC,Urine 31 /hpf (0-5)
[2020-07-16 16:28] LABS: Creatinine,Urine Random 145.1 mg/dL; Protein/Creatinine Ratio,Urine 0.269
[2020-07-16 23:34] LABS: Basophils # (A) 0.05 X 10*3/uL (0.00-0.10); Basophils % (A) 0.6 %; Eosinophils # (A) 0.36 X 10*3/uL (0.04-0.35); Eosinophils % (A) 4.3 %; HCT 40.2 % (37.2-46.3); HGB 12.8 g/dL (12.0-15.0); Lymphocytes # (A) 2.32 X 10*3/uL (0.90-5.00); MCH 31.8 pg (27.0-32.0); MCHC 31.8 g/dL (32.0-37.0); MCV 99.8 fL (80.0-97.0); Mean Platelet Volume 11.1 fL (9.5-12.2); Monocytes # (A) 0.68 X 10*3/uL (0.20-1.00); Monocytes % (A) 8.2 %; Neutrophils # (A) 4.84 X 10*3/uL (1.80-7.70); Neutrophils % (A) 58.5 %; Platelet Count 184 X 10*3/uL (140-440); RBC 4.03 X 10*6/uL (4.10-5.20); RDW 12.6 % (11.5-14.5); WBC 8.28 X 10*3/uL (4.50-10.00)
[2020-07-17 07:15] LABS: % Iron Saturation 28.79 (12.00-45.00); African American GFR (CKD) 26.2 (60.0-200.0); Albumin 4.4 g/dL (3.80-4.90); Anion Gap 12.1 mmol/L (4.00-12.00); BUN/Creat Ratio 15.45 Ratio (12.00-20.00); Calcium 10.3 mg/dL (8.7-10.3); Carbon Dioxide 25.9 mmol/L (21.6-31.8); Non-African American GFR(CKD) 22.6 (60.0-200.0); Phosphorus 3.8 mg/dL (2.4-5.1); Potassium 4.7 mmol/L (3.5-5.5)
== END | disposition home or self-care (01) ==
LOC: LABWHC1 15:37
PROVIDERS: ATTEND Internal Medicine Nephrology
DX: N18.4 Chronic kidney disease, stage 4 (severe) (principal); D64.9 Anemia, unspecified; R82.81 Pyuria; R80.9 Proteinuria, unspecified
CPT/HCPCS: 36415; 80048; 81001; 82040; 82570; 82728; 83540; 83550; 83735; 84100; 84156; 85025

== ENCOUNTER 2020-10-09 13:37 | Inpatient (IN) | payer MEDICARE, OTHER ==
[2020-10-09] MEDS ORDERED: SODIUM CHLORIDE 0.9% 1,000 ML IV STA (13:49)
[2020-10-09 13:57] LABS: Basophils % (A) 1 %; Eosinophils # (A) 0.5 k/uL (0-0.7); Eosinophils % (A) 6 %; HGB 13.6 gm/dL (11.4-16.0); Lymphocytes # (A) 1.6 k/uL (1.0-4.8); Lymphocytes % (A) 20 %; MCH 31.9 pg (25.0-35.0); MCV 96.7 fL (80.0-100.0); Mean Platelet Volume 7.5; Monocytes # (A) 0.3 k/uL (0-1.0); Monocytes % (A) 4 %; Neutrophils # (A) 5.2 k/uL (1.3-7.7); Neutrophils % (A) 67 %; Platelet Count 181 k/uL (150-450); RBC 4.24 m/uL (3.80-5.40); RDW 13.6 % (11.5-15.5); WBC 7.7 k/uL (3.8-10.6)
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
[2020-10-09 14:08] LABS: Partial Thromboplastin Time 24.7 sec (22.0-30.0)
[2020-10-09 14:09] LABS: Potassium 4.2 mmol/L (3.5-5.1); Total Bilirubin 0.3 mg/dL (0.2-1.3); Total Protein 7.3 g/dL (6.3-8.2)
[2020-10-09 14:19] LABS: Creatine Kinase 29 U/L (30-135)
[2020-10-09] MEDS ORDERED: ONDANSETRON 4 MG/2 ML VIAL IVP STA (14:31)
[2020-10-09 14:32] LABS: Creatine Kinase MB <0.2 ng/mL (0.0-2.4); Troponin I <0.012 ng/mL (0.000-0.034)
--- NOTE | 2020-10-09 14:38 | CT ---
All EXAMINATION TYPE: CT brain wo con DATE OF EXAM: 10/09/2020 COMPARISON: 07/02/2019 HISTORY: Stroke CT DLP: 1107.[address] of the brain was performed. The ventricles, basal cisterns and sulci overlying the cerebral convexities demonstrate mild enlargem ent. There is no evidence for intracranial hemorrhage or sulcal effacement. There is decreased attenuation about the periventricular white matter and deep white matter of both c erebral hemispheres, compatible with chronic small vessel ischemia. Differential diagnosis does inclu de demyelination. No mass effects are seen.No midline shift. Osseous calvarium is intact. If symptoms persist consider MRI. IMPRESSION: 1. Age related atrophic and chronic small vessel ischemic change without acute intracranial process s een at this time.
--- NOTE | 2020-10-09 15:13 | XR ---
EXAMINATION TYPE: XR chest 2V DATE OF EXAM: 10/09/2020 COMPARISON: 02/28/2020 HISTORY: Altered mental status TECHNIQUE: Frontal and lateral views of the chest are obtained. FINDINGS: Heart size is enlarged. Multiple overlying leads. Pulmonary prominence may represent edema. No pleural effusion or pneumothorax. No focal consolidation. IMPRESSION: 1. Cardiomegaly and pulmonary interstitial prominence may represent early congestive heart failure. C ontinued follow-up is recommended.
[2020-10-09 15:42] LABS: Appearance,Urine Clear (Clear); Bilirubin,Urine Negative (Negative); Blood,Urine Moderate (Negative); Color,Urine Yellow; Glucose,Urine (UA) Negative (Negative); Hyaline Casts,Urine 4 /lpf (0-2); Ketones,Urine Negative (Negative); Leukocyte Esterase,Urine Negative (Negative); Mucus,Urine Rare /hpf; Nitrite,Urine Negative (Negative); Protein,Urine Trace (Negative); RBC,Urine 17 /hpf (0-5); Specific Gravity,Urine 1.014 (1.001-1.035); Squamous Epithelial Cell,Urine <1 /hpf (0-4); Urobilinogen,Urine <2.0 mg/dL (<2.0); WBC,Urine <1 /hpf (0-5)
[2020-10-09 16:21] LABS: Lactic Acid, Venous 0.9 mmol/L (0.7-2.0)
[2020-10-09 17:02] LABS: Magnesium 2.2 mg/dL (1.6-2.3)
[2020-10-09] MEDS ORDERED: NALOXONE 0.4 MG/ML 1 ML VIAL IV PRN (18:13)
[2020-10-09] MEDS ORDERED: ONDANSETRON 4 MG/2 ML VIAL IVP PRN (18:13)
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
[2020-10-09] MEDS ORDERED: NITROGLYCERIN SL TABS 0.4 MG TAB SUBLINGUAL PRN (18:15)
[2020-10-09] MEDS ORDERED: IPRATROPIUM-ALBUTEROL 3 ML NEB INHALATION PRN (18:15)
[2020-10-09] MEDS ORDERED: ALPRAZolam 1 MG TAB PO PRN (18:15)
[2020-10-09 18:23] LABS: Amphetamine Screen,Urine Not Detected (NotDetected); Barbiturate Screen,Urine Not Detected (NotDetected); Benzodiazepines Screen,Urine Not Detected (NotDetected); Cocaine Screen,Urine Not Detected (NotDetected); Methadone Screen, Urine Not Detected (NotDetected); Opiate Screen,Urine Not Detected (NotDetected); Oxycodone Screen, Urine Detected (NotDetected); Phencyclidine Screen,Urine Not Detected (NotDetected); Tricyclic Antidepressant,Urine Detected (NotDetected); Urn Cannabinoid Scrn Not Detected (NotDetected)
[2020-10-09] MEDS ORDERED: SODIUM CHLORIDE 0.9% 500 ML 500 ML IV STA (19:45)
[2020-10-09] MEDS ORDERED: METOPROLOL TARTRATE 5 MG/5 ML VIAL IVP STA (19:45)
[2020-10-09] MEDS: SODIUM CHLORIDE 0.9% 1,000 ML IV SCH ×2 (20:22→22:50)
[2020-10-09] MEDS: APIXABAN 5 MG TAB PO SCH (20:26)
[2020-10-09] MEDS: ATORVASTATIN 20 MG TAB PO SCH (20:26)
[2020-10-09] MEDS: FUROSEMIDE 20 MG TAB PO SCH (20:27)
[2020-10-09] MEDS: levETIRAcetam 250 MG TAB PO SCH (20:27)
[2020-10-09] MEDS: QUEtiapine 100 MG TAB PO SCH (20:27)
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
[2020-10-10] MEDS ORDERED: PHENYTOIN SODIUM INJ 1,000 MG in SODIUM CHLORIDE 0.9% 100 ML IVPB ONE (01:45)
[2020-10-10] MEDS ORDERED: METOCLOPRAMIDE 5 MG/ML 2 ML VIAL IVP STA (04:05)
[2020-10-10] MEDS: LEVOTHYROXINE 75 MCG TAB PO SCH (04:27)
[2020-10-10] MEDS: SERTRALINE 100 MG TAB PO SCH (08:50)
[2020-10-10] MEDS: MONTELUKAST 10 MG TAB PO SCH (08:50)
[2020-10-10] MEDS: allopurinoL 100 MG TAB PO SCH (08:50)
[2020-10-10] MEDS: FUROSEMIDE 20 MG TAB PO SCH ×3 (08:50→18:04)
[2020-10-10] MEDS: AMIODARONE 200 MG TAB PO SCH (08:50)
[2020-10-10] MEDS: PANTOPRAZOLE 40 MG TABLET PO SCH (08:50)
[2020-10-10] MEDS: APIXABAN 5 MG TAB PO SCH ×2 (08:51→20:14)
[2020-10-10] MEDS: METOPROLOL TARTRATE 25 MG TAB PO SCH (08:51)
[2020-10-10] MEDS: levETIRAcetam 250 MG TAB PO SCH ×2 (09:00→20:14)
--- NOTE | 2020-10-10 13:39 | P.PN ---
Subjective Progress Note Date: 10/10/20 No new complaints. Pt is more interactive today. Follows commands, but does continue to appear confused with some interview questions. Objective - Vital Signs Vital signs: Vital Signs Temp 98.6 F 10/10/20 08:00 Pulse 74 10/10/20 08:02 Resp 16 10/10/20 08:02 BP 142/87 10/10/20 08:00 Pulse Ox 94 L 10/10/20 08:00 Intake & Output 10/09/20 10/10/20 10/10/20 18:59 06:59 18:59 Intake Total 0 Output Total 300 Balance -300 Weight 75.387 kg 64.5 kg Intake: Oral 0 Output: Urine 200 Emesis 100 Other: Voiding Method External Catheter # Voids 1 - Exam Gen: awake, alert, confused HEENT: normocephalic, atraumatic, good hearing acuity, moist mucous membranes Resp: good air exchange, breathing comfortably with no accessory muscle use CVS: good distal perfusion x 4, GI: soft, NTTP, ND : no SPT, no CVAT, benoit catheter not present MSK: no pitting edema, no clubbing Neuro: non-focal, moving all extremities Psych: cooperative, euthymic mood - Labs CBC & Chem 7: 10/09/20 13:44 10/09/20 13:44 Labs: Abnormal Lab Results - Last 24 Hours (Table) 10/09/20 10/09/20 10/09/20 Range/Units 13:44 13:44 15:16 Chloride 111 H (98-107) mmol/L Carbon Dioxide 21 L (22-30) mmol/L BUN 27 H (7-17) mg/dL Creatinine 1.78 H (0.52-1.04) mg/dL Glucose 121 H (74-99) mg/dL Alkaline Phosphatase 189 H (38-126) U/L Total Creatine Kinase 29 L (30-135) U/L Urine Protein Trace H (Negative) Urine Blood Moderate H (Negative) Urine RBC 17 H (0-5) /hpf Hyaline Casts 4 H (0-2) /lpf Urine Mucus Rare H (None) /hpf Ur Oxycodone Screen (NotDetected) U Tricyclic Antidepress (NotDetected) 10/09/20 Range/Units 17:47 Chloride (98-107) mmol/L Carbon Dioxide (22-30) mmol/L BUN (7-17) mg/dL Creatinine (0.52-1.04) mg/dL Glucose (74-99) mg/dL Alkaline Phosphatase (38-126) U/L Total Creatine Kinase (30-135) U/L Urine Protein (Negative) Urine Blood (Negative) Urine RBC (0-5) /hpf Hyaline Casts (0-2) /lpf Urine Mucus (None) /hpf Ur Oxycodone Screen Detected H (NotDetected) U Tricyclic Antidepress Detected H (NotDetected) Assessment and Plan Assessment: Assessment/plan Altered mental status, suspected secondary to baclofen overdose -Continue to monitor mental status -Discussed the case with the ED physician in detail. Initial thoughts were to rule out a possible brainstem CVA, however the patient's mental status was improving with the patient now responding to her daughter by the end of the interview. It was noted that the risks outweighed the benefits of a CT angiogram in setting of chronic kidney disease with ED physician in agreement. -Will administer loading dose of Dilantin for possible breakthrough seizure in setting of lowered threshold from Baclofen -Neurology consult deferred due to rapidly improving mental status Chronic conditions: A. fib, seizure disorder, COPD, chronic kidney disease, hypertension, hyperlipidemia, hypothyroidism -Continue home meds DVT prophylaxis -Yogesh The patient is admitted with an anticipated greater than 2 midnight stay for evaluation of AMS CODE STATUS: Full Code Discussed with: Daughter Anticipated discharge date: 2-[address]: Home
[2020-10-10] MEDS: SODIUM CHLORIDE 0.9% 1,000 ML IV SCH (15:20)
[2020-10-10] MEDS: IPRATROPIUM-ALBUTEROL 3 ML NEB INHALATION SCH (19:47)
[2020-10-10] MEDS: ATORVASTATIN 20 MG TAB PO SCH (20:14)
[2020-10-10] MEDS: QUEtiapine 100 MG TAB PO SCH (20:14)
[2020-10-11 00:49] VITALS: RESP 18
[2020-10-11] MEDS: SODIUM CHLORIDE 0.9% 1,000 ML IV SCH (03:13)
[2020-10-11] MEDS: LEVOTHYROXINE 75 MCG TAB PO SCH (06:30)
[2020-10-11] MEDS: IPRATROPIUM-ALBUTEROL 3 ML NEB INHALATION SCH ×3 (07:40→14:57)
[2020-10-11] MEDS: METOPROLOL TARTRATE 25 MG TAB PO SCH (08:41)
[2020-10-11] MEDS: APIXABAN 5 MG TAB PO SCH (08:41)
[2020-10-11] MEDS: MONTELUKAST 10 MG TAB PO SCH (08:41)
[2020-10-11] MEDS: allopurinoL 100 MG TAB PO SCH (08:41)
[2020-10-11] MEDS: AMIODARONE 200 MG TAB PO SCH (08:42)
[2020-10-11] MEDS: SERTRALINE 100 MG TAB PO SCH (08:42)
[2020-10-11] MEDS: FUROSEMIDE 20 MG TAB PO SCH (08:42)
[2020-10-11] MEDS: PANTOPRAZOLE 40 MG TABLET PO SCH (08:42)
[2020-10-11] MEDS: levETIRAcetam 250 MG TAB PO SCH (08:43)
[2020-10-11 09:23] LABS: Basophils % (A) 0 %; Eosinophils # (A) 0.2 k/uL (0-0.7); Eosinophils % (A) 2 %; HCT 38.1 % (34.0-46.0); HGB 12.4 gm/dL (11.4-16.0); Lymphocytes # (A) 1.6 k/uL (1.0-4.8); Lymphocytes % (A) 20 %; MCH 31.8 pg (25.0-35.0); MCHC 32.6 g/dL (31.0-37.0); MCV 97.4 fL (80.0-100.0); Mean Platelet Volume 7.7; Monocytes # (A) 0.3 k/uL (0-1.0); Monocytes % (A) 4 %; Neutrophils # (A) 5.8 k/uL (1.3-7.7); Neutrophils % (A) 72 %; Platelet Count 180 k/uL (150-450); RBC 3.91 m/uL (3.80-5.40); RDW 13.8 % (11.5-15.5)
[2020-10-11 10:09] LABS: Calcium 8.9 mg/dL (8.4-10.2); Magnesium 1.7 mg/dL (1.6-2.3); Potassium 3.4 mmol/L (3.5-5.1)
[2020-10-11 16:02] VITALS: BP 129/85; PULSE 84; TEMP 98.3
--- NOTE | 2020-10-11 16:07 | P.DS ---
Providers Date of admission: 10/09/20 18:13 Expected date of discharge: 10/11/20 Attending physician: Berenice Hilario MD [facility] Course: Patient is 65-year-old female with an extensive PMH including dementia, A. fib on Eliquis, seizure disorder, COPD, chronic kidney disease, hypertension, hyperlipidemia, and hypothyroidism was brought into the emergency room due to altered mentation. The history is provided by the daughter at the bedside. She reports that after waking up this morning, her stepdad noted that the patient appeared to be confused and at times unresponsive. He subsequently activated EMS and brought her into the emergency room. The patient is unable to provide any meaningful history and is not following commands at the time of interview. The patient was reportedly seen by her neurologist yesterday for chronic lower back pain and was prescribed baclofen for the first time. The daughter notes that her stepdad just checked the patient's medications and noticed that 5 tab lets of the 10 mg baclofen were missing, with concerns that she may have taken them. The patient was reportedly confused when EMS arrived though was moving all extremities. No shaking movements were noted. No reports of bladder or bowel incontinence. The patient's last known well time was 9 PM the day prior. Patient underwent an extensive evaluation in the emergency room with a brain CT showing chronic small vessel ischemic changes but otherwise unremarkable. Chest x-ray showed cardiomegaly with pulmonary interstitial prominence. EKG revealed normal sinus rhythm at 72 bpm. Laboratory evaluation was remarkable for BUN 27, creatinine 1.78, glucose 121, alk phos 189, and troponin less than 0.012. Altered mental status, secondary to baclofen overdose -Discussed the case with the ED physician in detail. Initial thoughts were to rule out a possible brainstem CVA, however the patient's mental status was improving with the patient now responding to her daughter by the end of the interview. It was noted that the risks outweighed the benefits of a CT angiogram in setting of chronic kidney disease with ED physician in agreement. Administered loading dose of Dilantin for possible breakthrough seizure in setting of lowered threshold from Baclofen. Neurology consult consult was considered but deferred due to rapidly improving mental status. Pt was seen by PT/OT and recommended for SNF for rehab. Only home medication change was the discontinuation of baclofen. I spent 32 minutes coordinating this complex discharge. Assessment: Gen: awake, alert, confused HEENT: normocephalic, atraumatic, good hearing acuity, moist mucous membranes Resp: good air exchange, breathing comfortably with no accessory muscle use CVS: good distal perfusion x 4, GI: soft, NTTP, ND : no SPT, no CVAT, benoit catheter not present MSK: no pitting edema, no clubbing Neuro: non-focal, moving all extremities Psych: cooperative, euthymic mood Patient Condition at Discharge: Good Plan - Discharge Summary Discharge Rx Participant: No New Discharge Prescriptions: Continue Nitroglycerin Sl Tabs [Nitrostat] 0.4 mg SUBLINGUAL Q5M PRN PRN Reason: Chest Pain Amiodarone [Cordarone] 200 mg PO DAILY Apixaban [Eliquis] 5 mg PO BID Sertraline HCl [Zoloft] 100 mg PO DAILY Ipratropium-Albuterol Nebulize [Duoneb 0.5 mg-3 mg/3 ml Soln] 3 ml INHALATION RT-QID PRN PRN Reason: Shortness Of Breath Atorvastatin [Lipitor] 20 mg PO HS Levothyroxine Sodium [Synthroid] 75 mcg PO DAILY QUEtiapine [SEROquel] 100 mg PO HS levETIRAcetam [Keppra] 250 mg PO Q12HR 30 Days #60 tab Albuterol Inhaler [Ventolin Hfa Inhaler] 2 puff INHALATION RT-QID PRN PRN Reason: Shortness Of Breath Torsemide [Demadex] 10 mg PO BID ALPRAZolam [Xanax] 1 mg PO Q8H PRN #9 tab PRN Reason: Anxiety Allopurinol [Zyloprim] 100 mg PO DAILY Metoprolol Tartrate 25 mg PO DAILY Montelukast [Singulair] 10 mg PO DAILY Omeprazole 20 mg PO DAILY Discontinued Baclofen [Lioresal] 10 mg PO HS Discharge Medication List Nitroglycerin Sl Tabs [Nitrostat] 0.4 mg SUBLINGUAL Q5M PRN 12/29/13 [History] Amiodarone [Cordarone] 200 mg PO DAILY 12/22/18 [History] Apixaban [Eliquis] 5 mg PO BID 12/22/18 [History] Sertraline HCl [Zoloft] 100 mg PO DAILY 12/22/18 [History] Ipratropium-Albuterol Nebulize [Duoneb 0.5 mg-3 mg/3 ml Soln] 3 ml INHALATION RT-QID PRN 02/26/19 [History] Atorvastatin [Lipitor] 20 mg PO HS 03/09/19 [History] Levothyroxine Sodium [Synthroid] 75 mcg PO DAILY 06/17/19 [History] QUEtiapine [SEROquel] 100 mg PO HS 06/17/19 [History] levETIRAcetam [Keppra] 250 mg PO Q12HR 30 Days #60 tab 07/04/19 [Rx] Albuterol Inhaler [Ventolin Hfa Inhaler] 2 puff INHALATION RT-QID PRN 10/09/20 [History] Allopurinol [Zyloprim] 100 mg PO DAILY 10/09/20 [History] Metoprolol Tartrate 25 mg PO DAILY 10/09/20 [History] Montelukast [Singulair] 10 mg PO DAILY 10/09/20 [History] Omeprazole 20 mg PO DAILY 10/09/20 [History] Torsemide [Demadex] 10 mg PO BID 10/09/20 [History] ALPRAZolam [Xanax] 1 mg PO Q8H PRN #9 tab 10/11/20 [Rx] Follow up Appointment(s)/Referral(s): None,Stated [REFERRING] - 1-2 days Discharge Disposition: HOME SELF-CARE
== END 2020-10-11 18:00 | disposition home or self-care (01) | DRG 918 ==
LOC: EC 13:37 → 3SCARD 18:13
PROVIDERS: ADMIT Internal Medicine; ATTEND Internal Medicine
DX: T42.8X1A Poisoning by antiparkinsonism drugs and other central muscle-tone depressants, accidental (unintentional), initial encounter (principal); N18.4 Chronic kidney disease, stage 4 (severe); Z16.24 Resistance to multiple antibiotics; Z16.21 Resistance to vancomycin; F05 Delirium due to known physiological condition; I48.20 Chronic atrial fibrillation, unspecified; J44.9 Chronic obstructive pulmonary disease, unspecified; I12.9 Hypertensive chronic kidney disease with stage 1 through stage 4 chronic kidney disease, or unspecified chronic kidney disease; I25.10 Atherosclerotic heart disease of native coronary artery without angina pectoris; I48.0 Paroxysmal atrial fibrillation; M54.5 Low back pain; E03.9 Hypothyroidism, unspecified; E78.5 Hyperlipidemia, unspecified; F03.90 Unspecified dementia, unspecified severity, without behavioral disturbance, psychotic disturbance, mood disturbance, and anxiety; F31.9 Bipolar disorder, unspecified; F41.9 Anxiety disorder, unspecified; G51.0 Bell's palsy; G89.29 Other chronic pain; Z87.891 Personal history of nicotine dependence; Z87.820 Personal history of traumatic brain injury; Z86.73 Personal history of transient ischemic attack (TIA), and cerebral infarction without residual deficits; Z86.718 Personal history of other venous thrombosis and embolism; Z86.14 Personal history of Methicillin resistant Staphylococcus aureus infection; Z79.899 Other long term (current) drug therapy; Z79.890 Hormone replacement therapy; Z79.01 Long term (current) use of anticoagulants; Z90.710 Acquired absence of both cervix and uterus
CPT/HCPCS: 36415; 70450; 71046; 80048; 80053; 80306; 81001; 82140; 82550; 82553; 83605; 83690; 83735; 84484; 85025; 85610; 85730; 87635; 93005; 94640; 94760; 96361; 96374; 99285

== ENCOUNTER 2021-08-04 13:18 | Emergency (ER) | payer MEDICARE, OTHER ==
[2021-08-04 13:32] VITALS: BP 105/73; PULSE 71; RESP 18; TEMP 98
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
[2021-08-04 14:22] LABS: Basophils % (A) 1 %; Eosinophils # (A) 0.6 k/uL (0-0.7); Eosinophils % (A) 9 %; HCT 36.7 % (34.0-46.0); HGB 11.4 gm/dL (11.4-16.0); Lymphocytes # (A) 1.2 k/uL (1.0-4.8); Lymphocytes % (A) 18 %; MCH 31.8 pg (25.0-35.0); MCV 102.6 fL (80.0-100.0); Macrocytosis Slight; Mean Platelet Volume 8.2; Monocytes # (A) 0.3 k/uL (0-1.0); Monocytes % (A) 5 %; Neutrophils # (A) 4.4 k/uL (1.3-7.7); Neutrophils % (A) 66 %; Platelet Count 174 k/uL (150-450); RBC 3.58 m/uL (3.80-5.40); RDW 14.4 % (11.5-15.5); WBC 6.7 k/uL (3.8-10.6)
[2021-08-04 14:26] LABS: Appearance,Urine Clear (Clear); Bilirubin,Urine Negative (Negative); Blood,Urine Moderate (Negative); Color,Urine Yellow; Glucose,Urine (UA) Negative (Negative); Ketones,Urine Negative (Negative); Leukocyte Esterase,Urine Negative (Negative); Mucus,Urine Rare /hpf; Nitrite,Urine Negative (Negative); Protein,Urine Negative (Negative); RBC,Urine 16 /hpf (0-5); Squamous Epithelial Cell,Urine 2 /hpf (0-4); Urobilinogen,Urine <2.0 mg/dL (<2.0); WBC,Urine <1 /hpf (0-5)
[2021-08-04 15:35] LABS: Calcium 8.3 mg/dL (8.4-10.2); Potassium 4.6 mmol/L (3.5-5.1)
== END 2021-08-04 16:30 | disposition home or self-care (01) ==
LOC: EC 13:18
DX: Z88.3 Allergy status to other anti-infective agents (principal); Z88.2 Allergy status to sulfonamides; Z88.1 Allergy status to other antibiotic agents; J44.9 Chronic obstructive pulmonary disease, unspecified; Z86.73 Personal history of transient ischemic attack (TIA), and cerebral infarction without residual deficits; Z79.899 Other long term (current) drug therapy; Z79.1 Long term (current) use of non-steroidal anti-inflammatories (NSAID); K21.9 Gastro-esophageal reflux disease without esophagitis; E07.9 Disorder of thyroid, unspecified; Z87.891 Personal history of nicotine dependence
CPT/HCPCS: 36415; 80048; 81001; 85025; 99284

== ENCOUNTER 2022-01-17 02:49 | Inpatient (IN) | payer MEDICARE, OTHER ==
[2022-01-17] MEDS ORDERED: NITROGLYCERIN SL TABS 0.4 MG TAB SUBLINGUAL STA (03:00)
[2022-01-17] MEDS ORDERED: NITROGLYCERIN OINT 1 INCH/GM PACKET TOPICAL STA (03:06)
[2022-01-17] MEDS ORDERED: FUROSEMIDE 10 MG/ML 4 ML VIAL IV STA (03:06)
--- NOTE | 2022-01-17 03:47 | XR ---
EXAMINATION TYPE: XR chest 1V portable DATE OF EXAM: 01/17/2022 COMPARISON: 11/27/2021 HISTORY: Short of breath TECHNIQUE: FINDINGS: Heart is enlarged. There is mild pulmonary interstitial edema. There is slight blunting of the costophrenic angles. There are chest leads. IMPRESSION: There is evidence for some mild congestive heart failure which is new compared to old shabana rossi
[2022-01-17 05:04] LABS: Basophils % (A) 0 %; Eosinophils # (A) 0.1 k/uL (0-0.7); Eosinophils % (A) 1 %; HCT 35.7 % (34.0-46.0); HGB 11.3 gm/dL (11.4-16.0); Hypochromasia Slight; Lymphocytes % (A) 10 %; MCH 32.6 pg (25.0-35.0); MCHC 31.7 g/dL (31.0-37.0); MCV 102.6 fL (80.0-100.0); Macrocytosis Moderate; Mean Platelet Volume 8.3; Monocytes # (A) 0.5 k/uL (0-1.0); Monocytes % (A) 5 %; Neutrophils # (A) 8.2 k/uL (1.3-7.7); Neutrophils % (A) 83 %; Platelet Count 161 k/uL (150-450); RBC 3.48 m/uL (3.80-5.40); RDW 15.6 % (11.5-15.5); WBC 9.9 k/uL (3.8-10.6)
[2022-01-17 05:09] LABS: Appearance,Urine Clear (Clear); Bilirubin,Urine Negative (Negative); Blood,Urine Negative (Negative); Color,Urine Colorless; Glucose,Urine (UA) Negative (Negative); Ketones,Urine Negative (Negative); Leukocyte Esterase,Urine Negative (Negative); Nitrite,Urine Negative (Negative); Protein,Urine Negative (Negative); Specific Gravity,Urine 1.005 (1.001-1.035); Urobilinogen,Urine <2.0 mg/dL (<2.0)
[2022-01-17 05:25] LABS: Albumin 3.9 g/dL (3.5-5.0); Calcium 8.8 mg/dL (8.4-10.2); Potassium 3.6 mmol/L (3.5-5.1); Total Bilirubin 0.4 mg/dL (0.2-1.3)
[2022-01-17 05:32] LABS: Prothrombin Time 10.9 sec (9.0-12.0)
[2022-01-17 05:33] LABS: Partial Thromboplastin Time 20.6 sec (22.0-30.0)
[2022-01-17] MEDS ORDERED: ACETAMINOPHEN TAB 325 MG TAB PO STA (05:57)
[2022-01-17] MEDS ORDERED: ALBUTEROL NEBULIZED 2.5 MG/3 ML INHALATION PRN (06:19)
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
[2022-01-17] MEDS ORDERED: AMIODARONE 200 MG TAB PO SCH (09:00)
[2022-01-17] MEDS ORDERED: levETIRAcetam 250 MG TAB PO SCH (09:00)
[2022-01-17] MEDS ORDERED: TORSEMIDE 20 MG TAB PO SCH (09:00)
[2022-01-17] MEDS: METOPROLOL TARTRATE 25 MG TAB PO SCH (10:15)
[2022-01-17] MEDS: FUROSEMIDE 10 MG/ML 4 ML VIAL IV SCH ×2 (10:15→17:46)
[2022-01-17] MEDS: APIXABAN 5 MG TAB PO SCH ×2 (10:15→20:08)
[2022-01-17] MEDS: LEVOTHYROXINE 75 MCG TAB PO SCH (10:15)
[2022-01-17] MEDS: MONTELUKAST 10 MG TAB PO SCH (10:16)
[2022-01-17] MEDS: SERTRALINE 100 MG TAB PO SCH (10:16)
[2022-01-17] MEDS: ALPRAZolam 1 MG TAB PO PRN ×2 (10:16→18:08)
[2022-01-17] MEDS: PANTOPRAZOLE 40 MG TABLET PO SCH (10:16)
[2022-01-17] MEDS: AMIODARONE 100 MG TAB PO SCH (11:00)
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
--- NOTE | 2022-01-17 14:04 | NM ---
EXAMINATION TYPE: NM pul vent and perfuse DATE OF EXAM: 01/17/2022 COMPARISON: Chest x-ray same date HISTORY: Dyspnea, chest pain and cough with wheezing TECHNIQUE: Utilizing inhalation of 39.7 mCi Tc 99m DTPA aerosol and intravenous injection of 4.4 mCi of Tc 99m MAA, ventilation and perfusion images are acquired post injection in multiple projections. FINDINGS: Chest x-ray shows findings of congestive heart failure. Central clumping of the radiopharmaceutical noted on ventilation images suggests COPD. Perfusion images are overall show better uptake than ventilation images. There is no evidence of mism atched defects. IMPRESSION: Low probability for pulmonary embolism.
[2022-01-17] MEDS: methylPREDNISolone SOD SUCCI 40 MG/ML 1 ML VIAL IV SCH ×3 (14:11→23:17)
[2022-01-17] MEDS: AZITHROMYCIN 500 MG TAB PO SCH (14:12)
[2022-01-17] MEDS ORDERED: PNEUMOCOCCAL VACC-PNEUMOVAX 23 25 MCG/0.5 ML VIAL IM ONE (15:31)
[2022-01-17] MEDS ORDERED: INFLUENZA VACC HIGH-DOSE (65+) 240 MCG/0.7 ML SYRINGE IM ONE (15:31)
[2022-01-17] MEDS: IPRATROPIUM-ALBUTEROL 3 ML NEB INHALATION SCH ×2 (16:08→19:49)
[2022-01-17] MEDS ORDERED: DEXTROSE 50% SYRINGE 50 ML IVP PRN ×2 (16:49)
[2022-01-17 16:51] VITALS: BMI 28.0
[2022-01-17 17:22] LABS: Glucose,Whole Blood 142 mg/dL (70-110)
[2022-01-17] MEDS: INSULIN ASPART (NovoLOG) 100 UNIT/ML VIAL SQ SCH ×2 (17:41→20:12)
[2022-01-17 20:02] LABS: Glucose,Whole Blood 177 mg/dL (70-110)
[2022-01-17] MEDS: ATORVASTATIN 20 MG TAB PO SCH (20:09)
[2022-01-17] MEDS: HYDROcodone/APAP 5-325MG 1 EACH TAB PO PRN (20:14)
[2022-01-17] MEDS: QUEtiapine 100 MG TAB PO SCH (20:42)
[2022-01-18] MEDS: methylPREDNISolone SOD SUCCI 40 MG/ML 1 ML VIAL IV SCH ×4 (06:13→23:39)
[2022-01-18] MEDS: FUROSEMIDE 10 MG/ML 4 ML VIAL IV SCH (06:13)
[2022-01-18] MEDS: LEVOTHYROXINE 75 MCG TAB PO SCH (06:13)
[2022-01-18 06:18] LABS: Glucose,Whole Blood 155 mg/dL (70-110)
[2022-01-18] MEDS: INSULIN ASPART (NovoLOG) 100 UNIT/ML VIAL SQ SCH ×4 (06:19→20:58)
[2022-01-18 08:35] LABS: Basophils % (A) 0 %; Eosinophils % (A) 0 %; HCT 36.3 % (34.0-46.0); HGB 11.9 gm/dL (11.4-16.0); Hypochromasia Slight; Lymphocytes # (A) 0.5 k/uL (1.0-4.8); Lymphocytes % (A) 7 %; MCH 33.3 pg (25.0-35.0); MCHC 32.6 g/dL (31.0-37.0); Macrocytosis Slight; Mean Platelet Volume 8.9; Monocytes # (A) 0.1 k/uL (0-1.0); Monocytes % (A) 2 %; Neutrophils # (A) 7.2 k/uL (1.3-7.7); Neutrophils % (A) 91 %; Platelet Count 171 k/uL (150-450); RBC 3.56 m/uL (3.80-5.40); RDW 15.5 % (11.5-15.5); WBC 7.9 k/uL (3.8-10.6)
[2022-01-18 08:49] LABS: Calcium 8.7 mg/dL (8.4-10.2); Potassium 4.3 mmol/L (3.5-5.1)
[2022-01-18] MEDS: IPRATROPIUM-ALBUTEROL 3 ML NEB INHALATION SCH ×4 (08:52→20:49)
[2022-01-18] MEDS: ASPIRIN 325 MG TAB PO SCH (09:14)
[2022-01-18] MEDS: SERTRALINE 100 MG TAB PO SCH (09:15)
[2022-01-18] MEDS: AMIODARONE 100 MG TAB PO SCH (09:15)
[2022-01-18] MEDS: AZITHROMYCIN 500 MG TAB PO SCH (09:15)
[2022-01-18] MEDS: MONTELUKAST 10 MG TAB PO SCH (09:15)
[2022-01-18] MEDS: APIXABAN 5 MG TAB PO SCH ×2 (09:15→20:37)
[2022-01-18] MEDS: METOPROLOL TARTRATE 25 MG TAB PO SCH (09:15)
[2022-01-18] MEDS: PANTOPRAZOLE 40 MG TABLET PO SCH (09:15)
[2022-01-18] MEDS: HYDROcodone/APAP 5-325MG 1 EACH TAB PO PRN ×3 (09:18→20:37)
--- NOTE | 2022-01-18 10:04 | P.PN ---
Subjective Progress Note Date: 01/18/22 The patient was seen at bedside, no acute events overnight. HEENT she states that she has her breathing is better but she's not back to normal. Objective - Vital Signs Vital signs: Vital Signs Temp 97.5 F L 01/18/22 03:39 Pulse 80 01/18/22 09:03 Resp 18 01/18/22 03:39 BP 127/84 01/18/22 03:39 Pulse Ox 97 01/18/22 03:39 FiO2 50 01/17/22 03:08 Intake & Output 01/17/22 01/18/22 01/18/22 18:59 06:59 18:59 Intake Total 358 10 Output Total 200 425 Balance 158 -415 Weight 72 kg 81 kg Intake: IV 10 0.9 10 Oral 358 Output: Urine 200 425 Other: Voiding Method External Catheter # Voids 1 # Bowel Movements 0 - Exam General: [non toxic], [mild distress], [appears at stated age] Derm: [warm], [dry] Head: [atraumatic], [normocephalic], [symmetric] Eyes: [EOMI], [no lid lag], [anicteric sclera] Mouth: [no lip lesion], [mucus membranes moist] Cardiovascular: [S1S2 reg], [no murmur], [positive posterior tibial pulse bilateral], Lungs: [CTA bilateral], [no rhonchi, no rales] , [no accessory muscle use], mild expiratory wheezes heard bilaterally, some crackles heared bilaterally Abdominal: [soft], [ nontender to palpation], [no guarding], [no appreciable organomegaly] Ext: [no gross muscle atrophy], [no edema], [no contractures] Neuro: [ CN II-XI grossly intact], [no focal neuro deficits] Psych: [Alert], [drowsy], [appropriate affect] - Labs CBC & Chem 7: 01/18/22 08:11 01/18/22 08:11 Labs: Abnormal Lab Results - Last 24 Hours (Table) 01/17/22 01/17/22 01/18/22 Range/Units 17:09 20:00 06:12 RBC (3.80-5.40) m/uL MCV (80.0-100.0) fL Lymphocytes # (1.0-4.8) k/uL Sodium (137-145) mmol/L BUN (7-17) mg/dL Creatinine (0.52-1.04) mg/dL Glucose (74-99) mg/dL POC Glucose (mg/dL) 142 H 177 H 155 H (70-110) mg/dL 01/18/22 01/18/22 Range/Units 08:11 08:11 RBC 3.56 L (3.80-5.40) m/uL MCV 102.0 H (80.0-100.0) fL Lymphocytes # 0.5 L (1.0-4.8) k/uL Sodium 136 L (137-145) mmol/L BUN 40 H (7-17) mg/dL Creatinine 1.95 H (0.52-1.04) mg/dL Glucose 149 H (74-99) mg/dL POC Glucose (mg/dL) (70-110) mg/dL Assessment and Plan Assessment: Acute hypoxic respiratory failure Acute COPD exacerbation Acute decompensated heart failure -Chest x-ray showed pulmonary vascular congestion -pro BNP was 8200 -Mild expiratory wheezes heard bilaterally -Patient was started on DuoNeb time IV Solu-Medrol with azithromycin per pulmonology recommendations -Pending echo study -Continue IV Lasix -Consulted cardiology appreciate recommendations -Consulted pulmonology appreciate recommendations Chronic medical issues: Coronary artery disease with previous cardiac catheterization and coronary stenting History of atrial fibrillation current cardiac rhythm is sinus Chronic stage III kidney disease Hypertension Hyperlipidemia History of closed head injury with ongoing memory deficits Hypothyroidism Previous susceptibility of the right lower extremity in 1985 Previous history of a permanent pain stimulator insertion and subsequent removal DVT Prophylaxis: Eliquis PPI prophylaxis not needed Code status: Full code Anticipated length of stay: Greater than [address]: Home
[2022-01-18 11:44] LABS: Glucose,Whole Blood 151 mg/dL (70-110)
--- NOTE | 2022-01-18 11:55 | P.PN ---
Subjective Progress Note Date: 01/18/22 On 01/18/2022, the patient being seen for a follow-up. She has shown only limited improvement since yesterday. She continues to have a congestive cough producing sputum. She has ongoing bronchospasm and wheezing. The patient on DuoNeb treatments on the clock for times a day and I also start the patient on IV Solu-Medrol. The patient has no fever. No chills. She is currently covered with empiric antibiotics utilizing Zithromax. No nausea, vomiting. No chest pain. She is on long-term anticoagulation also. No other significant events overnight. Labs from today was noted and the creatinine is up to 1.95 the patient is being diuresed. Sodium is 136. White cell count at 7.5. Cardiology is on the case. Echocardiogram is pending. Objective - Vital Signs Vital signs: Vital Signs Temp 97.8 F 01/18/22 08:00 Pulse 80 01/18/22 09:03 Resp 18 01/18/22 08:00 BP 122/80 01/18/22 08:00 Pulse Ox 97 01/18/22 08:00 FiO2 50 01/17/22 03:08 Intake & Output 01/17/22 01/18/22 01/18/22 18:59 06:59 18:59 Intake Total 358 10 Output Total 200 425 Balance 158 -415 Weight 72 kg 81 kg Intake: IV 10 0.9 10 Oral 358 Output: Urine 200 425 Other: Voiding Method External Catheter # Voids 1 # Bowel Movements 0 - Exam The patient is very calm and comfortable on 2 L O2 nasal cannula Head exam was generally normal. There was no scleral icterus or corneal arcus. Mucous membranes were moist. Neck was supple and without jugular venous distension, thyromegaly, or carotid bruits. Carotids were easily palpable bilaterally. There was no adenopathy. Lung sounds are diminished and the patient has scattered rhonchi and wheezes throughout the lung is bilaterally. The patient also has crackles lung bases. Cardiac exam revealed the PMI to be normally situated and sized. The rhythm was regular and no extrasystoles were noted during several minutes of auscultation. The first and second heart sounds were normal and physiologic splitting of the second heart sound was noted. There were no murmurs, rubs, clicks, or gallops. Abdominal exam revealed normal bowel sounds. The abdomen was soft, non-tender, and without masses, organomegaly, or appreciable enlargement of the abdominal aorta. Examination of the extremities revealed easily palpable radial, femoral and pedal pulses. There was no cyanosis, clubbing or edema. Examination of the skin revealed no evidence of significant rashes, suspicious appearing nevi or other concerning lesions. Neurologically, the patient is awake and alert and the patient does not have any focal neurological deficit. Cranial nerves are essentially intact. - Labs CBC & Chem 7: 01/18/22 08:11 01/18/22 08:11 Labs: Abnormal Lab Results - Last 24 Hours (Table) 01/17/22 01/17/22 01/18/22 Range/Units 17:09 20:00 06:12 RBC (3.80-5.40) m/uL MCV (80.0-100.0) fL Lymphocytes # (1.0-4.8) k/uL Sodium (137-145) mmol/L BUN (7-17) mg/dL Creatinine (0.52-1.04) mg/dL Glucose (74-99) mg/dL POC Glucose (mg/dL) 142 H 177 H 155 H (70-110) mg/dL 01/18/22 01/18/22 01/18/22 Range/Units 08:11 08:11 11:35 RBC 3.56 L (3.80-5.40) m/uL MCV 102.0 H (80.0-100.0) fL Lymphocytes # 0.5 L (1.0-4.8) k/uL Sodium 136 L (137-145) mmol/L BUN 40 H (7-17) mg/dL Creatinine 1.95 H (0.52-1.04) mg/dL Glucose 149 H (74-99) mg/dL POC Glucose (mg/dL) 151 H (70-110) mg/dL Assessment and Plan Plan: Acute COPD exacerbation/bronchitis without any clear indication for pneumonia Acute decompensated heart failure, elevated proBNP level with interstitial muriel ma, rule out diastolic heart failure, echo is pending Acute hypoxic respiratory failure currently on 2 L coronary artery disease with previous cardiac catheterization and coronary stenting History of atrial fibrillation current cardiac rhythm is sinus Chronic stage III kidney disease Hypertension Hyperlipidemia History of closed head injury with ongoing memory deficits Hypothyroidism Previous history of UTIs Previous susceptibility of the right lower extremity in 1985 Previous history of a permanent pain stimulator insertion and subsequent removal Plan Mild degenerative function and the creatinine is up to 1.4 Continue DuoNeb neb treatments 4 times a day IV Solu Medrol 40 mg every 6 hours Zithromax 500 mg by mouth daily IV Lasix 40 mg every 12 hours Echo results are pending Resume home medications Cardiology consult We'll follow
--- NOTE | 2022-01-18 12:48 | P.PN ---
Subjective Progress Note Date: 01/18/22 This is Isaac Spann NP, I'm dictating on behalf of Dr. Camargo's H&P and A&P. Patient was interviewed and examined. Patient is a pleasant 66-year-old female who initially presented to the hospital with acute exacerbation of congestive heart failure. Patient continues to complain of some shortness of breath, but otherwise denies chest pain, dizziness, and heart palpitations. Patient had a VQ scan completed yesterday, which was low probability for pulmonary embolism. 2-D echocardiogram is pending. We decrease the patient's amiodarone 200 mg daily and she seems to be tolerating this well. Her heart rate is under control, her blood pressure is well within normal limits. GENERAL: Well-appearing, well-nourished and in no acute distress. NECK: Supple without JVD or thyromegaly. LUNGS: Breath sounds clear to auscultation bilaterally. Respiration equal and unlabored. No wheezes, rales or rhonchi. HEART: Regular rate and rhythm without murmurs, rubs or gallops. S1 and S2 heard. EXTREMITIES: Normal range of motion, no edema. No clubbing or cyanosis. Peripheral pulses intact and strong. VITALS: Temp 97.8, pulse 74, respirations 18, blood pressure 122/80, O2 saturation 97% on 3 L via nasal cannula TELEMETRY: Normal sinus rhythm LABS: White count 7.9, hemoglobin 11.9, platelets 171, sodium 136, potassium 4.3, B1 40, creatinine 1.95, calcium 8.7, magnesium 2.0 IMPRESSION: 1. Acute exacerbation congestive heart failure 2. Hypertension 3. COPD exacerbation PLAN: Continue amiodarone at 100 mg daily. Low probability for pulmonary embolism per VQ scan. Echocardiogram pending. The majority of the patient's complaints are concerning her COPD. Continue with medical and pulmonary management. Objective - Vital Signs Vital signs: Vital Signs Temp 97.8 F 01/18/22 08:00 Pulse 76 01/18/22 12:06 Resp 18 01/18/22 08:00 BP 122/80 01/18/22 08:00 Pulse Ox 97 01/18/22 08:00 FiO2 50 01/17/22 03:08 Intake & Output 01/17/22 01/18/22 01/18/22 18:59 06:59 18:59 Intake Total 358 10 Output Total 200 425 Balance 158 -415 Weight 72 kg 81 kg Intake: IV 10 0.9 10 Oral 358 Output: Urine 200 425 Other: Voiding Method External Catheter # Voids 1 # Bowel Movements 0 - Labs CBC & Chem 7: 01/18/22 08:11 01/18/22 08:11 Labs: Abnormal Lab Results - Last 24 Hours (Table) 01/17/22 01/17/22 01/18/22 Range/Units 17:09 20:00 06:12 RBC (3.80-5.40) m/uL MCV (80.0-100.0) fL Lymphocytes # (1.0-4.8) k/uL Sodium (137-145) mmol/L BUN (7-17) mg/dL Creatinine (0.52-1.04) mg/dL Glucose (74-99) mg/dL POC Glucose (mg/dL) 142 H 177 H 155 H (70-110) mg/dL 01/18/22 01/18/22 01/18/22 Range/Units 08:11 08:11 11:35 RBC 3.56 L (3.80-5.40) m/uL MCV 102.0 H (80.0-100.0) fL Lymphocytes # 0.5 L (1.0-4.8) k/uL Sodium 136 L (137-145) mmol/L BUN 40 H (7-17) mg/dL Creatinine 1.95 H (0.52-1.04) mg/dL Glucose 149 H (74-99) mg/dL POC Glucose (mg/dL) 151 H (70-110) mg/dL
[2022-01-18 16:53] LABS: Glucose,Whole Blood 146 mg/dL (70-110)
[2022-01-18 20:22] LABS: Glucose,Whole Blood 181 mg/dL (70-110)
[2022-01-18] MEDS: FUROSEMIDE 10 MG/ML 2 ML VIAL IV SCH (20:37)
[2022-01-18] MEDS: ALPRAZolam 1 MG TAB PO PRN (20:37)
[2022-01-18] MEDS: QUEtiapine 100 MG TAB PO SCH (20:37)
[2022-01-18] MEDS: ATORVASTATIN 20 MG TAB PO SCH (20:37)
[2022-01-19 06:17] LABS: Glucose,Whole Blood 120 mg/dL (70-110)
[2022-01-19] MEDS: INSULIN ASPART (NovoLOG) 100 UNIT/ML VIAL SQ SCH ×3 (06:25→17:47)
[2022-01-19] MEDS: LEVOTHYROXINE 75 MCG TAB PO SCH (06:26)
[2022-01-19] MEDS: methylPREDNISolone SOD SUCCI 40 MG/ML 1 ML VIAL IV SCH ×3 (06:27→17:47)
[2022-01-19] MEDS: IPRATROPIUM-ALBUTEROL 3 ML NEB INHALATION SCH (08:03)
[2022-01-19] MEDS: HYDROcodone/APAP 5-325MG 1 EACH TAB PO PRN ×3 (08:52→17:47)
[2022-01-19] MEDS: APIXABAN 5 MG TAB PO SCH ×2 (08:53→20:16)
[2022-01-19] MEDS: SERTRALINE 100 MG TAB PO SCH (08:53)
[2022-01-19] MEDS: AMIODARONE 100 MG TAB PO SCH (08:53)
[2022-01-19] MEDS: AZITHROMYCIN 500 MG TAB PO SCH (08:53)
[2022-01-19] MEDS: MONTELUKAST 10 MG TAB PO SCH (08:53)
[2022-01-19] MEDS: METOPROLOL TARTRATE 25 MG TAB PO SCH (08:53)
[2022-01-19] MEDS: ASPIRIN 325 MG TAB PO SCH (08:53)
[2022-01-19] MEDS: PANTOPRAZOLE 40 MG TABLET PO SCH (08:53)
[2022-01-19] MEDS: FUROSEMIDE 10 MG/ML 2 ML VIAL IV SCH ×2 (08:53→20:15)
[2022-01-19 10:10] LABS: Basophils % (A) 0 %; Eosinophils # (A) 0.1 k/uL (0-0.7); Eosinophils % (A) 1 %; HCT 36.8 % (34.0-46.0); HGB 11.6 gm/dL (11.4-16.0); Hypochromasia Slight; Lymphocytes # (A) 0.7 k/uL (1.0-4.8); Lymphocytes % (A) 4 %; MCH 32.5 pg (25.0-35.0); MCHC 31.6 g/dL (31.0-37.0); MCV 102.7 fL (80.0-100.0); Macrocytosis Slight; Mean Platelet Volume 9.5; Monocytes # (A) 0.4 k/uL (0-1.0); Monocytes % (A) 3 %; Neutrophils # (A) 15.2 k/uL (1.3-7.7); Neutrophils % (A) 92 %; Platelet Count 184 k/uL (150-450); RBC 3.58 m/uL (3.80-5.40); RDW 15.2 % (11.5-15.5); WBC 16.6 k/uL (3.8-10.6)
--- NOTE | 2022-01-19 10:11 | P.PN ---
Subjective Progress Note Date: 01/19/22 Patient was seen and examined. No acute events overnight. Patient reports continued shortness of breath. She reports a cough, unable to bring up sputum. Currently on 3 L nasal cannula. States little to no improvement since admission. General: non toxic, no distress, appears at stated age Derm: warm, dry Head: atraumatic, normocephalic, symmetric Eyes: EOMI, no lid lag, anicteric sclera Mouth: no lip lesion, mucus membranes moist Cardiovascular: S1S2 reg, no murmur Lungs: Coarse breath sounds bilateral, no rhonchi, no rales , no accessory muscle use Abdominal: soft, nontender to palpation, no guarding, no appreciable organomegaly Ext: no gross muscle atrophy, no edema, no contractures Neuro: no focal neuro deficits Psych: Alert, oriented, appropriate affect #Acute hypoxic respiratory failure #Acute COPD exacerbation #Acute bronchitis #Acute on chronic diastolic CHF exacerbation Chronic conditions: CAD, paroxysmal atrial fibrillation, chronic kidney disease stage III, hypertension, dyslipidemia, history of TBI, hypothyroidism Continue supplemental O2 to maintain O2 saturation greater than 92%. Continue Lasix 20 mg IV twice a day. DuoNeb scheduled and is seated for shortness of breath or wheezing. Continue Solu-Medrol. Telemetry monitoring. Echocardiogram pending. Pulmonology and cardiology on board. Symbicort and Atrovent started. Start Mucinex. Complete a course of azithromycin. Continue home medications. DVT prophylaxis: Yogesh Discussed with: Patient Anticipated discharge: 1-[address]: Home A total of 25 minutes was spent on the care of this complex patient more than 50% of the time was spent in counseling and care coordination. Objective - Vital Signs Vital signs: Vital Signs Temp 97.6 F 01/19/22 08:40 Pulse 78 01/19/22 08:40 Resp 20 01/19/22 08:40 BP 93/58 01/19/22 08:40 Pulse Ox 96 01/19/22 08:40 FiO2 50 01/17/22 03:08 Intake & Output 01/18/22 01/19/22 01/19/22 18:59 06:59 18:59 Intake Total 838 120 Output Total 900 600 Balance 838 -780 -600 Intake: Oral 838 120 Output: Urine 900 600 Other: Voiding Method External Catheter External Catheter # Bowel Movements 0 - Labs CBC & Chem 7: 01/19/22 09:43 01/18/22 08:11 Labs: Abnormal Lab Results - Last 24 Hours (Table) 01/18/22 01/18/22 01/18/22 Range/Units 11:35 16:42 20:20 WBC (3.8-10.6) k/uL RBC (3.80-5.40) m/uL MCV (80.0-100.0) fL Neutrophils # (1.3-7.7) k/uL Lymphocytes # (1.0-4.8) k/uL POC Glucose (mg/dL) 151 H 146 H 181 H (70-110) mg/dL 01/19/22 01/19/22 Range/Units 06:15 09:43 WBC 16.6 H (3.8-10.6) k/uL RBC 3.58 L (3.80-5.40) m/uL MCV 102.7 H (80.0-100.0) fL Neutrophils # 15.2 H (1.3-7.7) k/uL Lymphocytes # 0.7 L (1.0-4.8) k/uL POC Glucose (mg/dL) 120 H (70-110) mg/dL
[2022-01-19 10:55] LABS: Calcium 8.3 mg/dL (8.4-10.2); Magnesium 2.2 mg/dL (1.6-2.3)
[2022-01-19] MEDS: IPRATROPIUM 0.5 MG/2.5 ML NEBU INHALATION SCH ×4 (11:14→23:54)
[2022-01-19] MEDS: ALBUTEROL NEBULIZED 2.5 MG/3 ML INHALATION SCH ×3 (11:14→21:06)
[2022-01-19 11:39] LABS: Glucose,Whole Blood 86 mg/dL (70-110)
[2022-01-19 11:41] LABS: Potassium 3.8 mmol/L (3.5-5.1)
[2022-01-19] MEDS: guaiFENesin 600 MG TABLET.ER PO SCH ×2 (12:20→20:15)
--- NOTE | 2022-01-19 15:57 | P.PN ---
Subjective Progress Note Date: 01/19/22 The patient is seen today 01/19/2022 in follow-up on the selective care unit. She is currently resting comfortably in bed. Awake and alert in no acute distress. Somewhat improved but not quite back to her baseline. She is maintaining O2 saturation of 200% on room air. She continues crackles in the po sterior bases right greater than left. She is diuresing. Continued on Lasix 20 mg IV every 12 hours. Remains on Symbicort, albuterol, IV Solu-Medrol. Anticoagulated with Eliquis. White count 16.6. Hemoglobin 11.6. Sodium 138. Potassium 3.8. BUN 63. Creatinine 2.24. Objective - Vital Signs Vital signs: Vital Signs Temp 97.6 F 01/19/22 11:50 Pulse 70 01/19/22 11:50 Resp 16 01/19/22 11:50 BP 91/53 01/19/22 11:50 Pulse Ox 100 01/19/22 11:50 FiO2 50 01/17/22 03:08 Intake & Output 01/18/22 01/19/22 01/19/22 18:59 06:59 18:59 Intake Total 838 120 Output Total 900 600 Balance 838 -780 -600 Intake: Oral 838 120 Output: Urine 900 600 Other: Voiding Method External Catheter External Catheter # Bowel Movements 0 - Exam The patient is very pleasant 66-year-old female patient, calm and comfortable on 2 L O2 nasal cannula Head exam was generally normal. There was no scleral icterus or corneal arcus. Mucous membranes were moist. Neck was supple and without jugular venous distension, thyromegaly, or carotid bruits. Carotids were easily palpable bilaterally. There was no adenopathy. Lung sounds are diminished and the patient has crackles lung bases. Right greater than left Cardiac exam revealed the PMI to be normally situated and sized. The rhythm was regular and no extrasystoles were noted during several minutes of auscultation. The first and second heart sounds were normal and physiologic splitting of the second heart sound was noted. There were no murmurs, rubs, clicks, or gallops. Abdominal exam revealed normal bowel sounds. The abdomen was soft, non-tender, and without masses, organomegaly, or appreciable enlargement of the abdominal aorta. Examination of the extremities revealed easily palpable radial, femoral and pedal pulses. There was no cyanosis, clubbing or edema. Examination of the skin revealed no evidence of significant rashes, suspicious appearing nevi or other concerning lesions. Neurologically, the patient is awake and alert and the patient does not have any focal neurological deficit. Cranial nerves are essentially intact. - Labs CBC & Chem 7: 01/19/22 09:43 01/19/22 09:43 Labs: Abnormal Lab Results - Last 24 Hours (Table) 01/18/22 01/18/22 01/19/22 Range/Units 16:42 20:20 06:15 WBC (3.8-10.6) k/uL RBC (3.80-5.40) m/uL MCV (80.0-100.0) fL Neutrophils # (1.3-7.7) k/uL Lymphocytes # (1.0-4.8) k/uL BUN (7-17) mg/dL Creatinine (0.52-1.04) mg/dL Glucose (74-99) mg/dL POC Glucose (mg/dL) 146 H 181 H 120 H (70-110) mg/dL Calcium (8.4-10.2) mg/dL 01/19/22 01/19/22 Range/Units 09:43 09:43 WBC 16.6 H (3.8-10.6) k/uL RBC 3.58 L (3.80-5.40) m/uL MCV 102.7 H (80.0-100.0) fL Neutrophils # 15.2 H (1.3-7.7) k/uL Lymphocytes # 0.7 L (1.0-4.8) k/uL BUN 63 H (7-17) mg/dL Creatinine 2.24 H (0.52-1.04) mg/dL Glucose 160 H (74-99) mg/dL POC Glucose (mg/dL) (70-110) mg/dL Calcium 8.3 L (8.4-10.2) mg/dL Assessment and Plan Assessment: Acute COPD exacerbation/bronchitis without any clear indication for pneumonia Acute decompensated heart failure, elevated proBNP level with interstitial edema, rule out diastolic heart failure, echo is pending Acute hypoxic respiratory failure currently on 2 L coronary artery disease with previous cardiac catheterization and coronary stenting History of atrial fibrillation current cardiac rhythm is sinus Chronic stage III kidney disease Hypertension Hyperlipidemia 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 We will continue to follow I have personally seen and examined the patient, performed the documentation and the assessment and plan as written. Number of minutes spent on the visit: 10.
[2022-01-19 16:44] LABS: Glucose,Whole Blood 192 mg/dL (70-110)
--- NOTE | 2022-01-19 17:32 | CA ---
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 18 - 58 / 22 - 52 cm??? M-MODE Aortic Root Diameter MM 3.3 cm LA Systolic Diameter MM 4.9 cm LA Ao Ratio MM 1.5 AV Cusp Separation MM 1.8 cm DOPPLER AV Peak Velocity 198.9 cm/s AV Peak Gradient 15.8 mmHg AI Peak Velocity 410.4 cm/s AI Peak Gradient 67.4 mmHg AI Pressure Half Time 502.3 ms LVOT Peak Velocity 118.3 cm/s LVOT Peak Gradient 5.6 mmHg MV Area PHT 2.9 cm??? Mitral E Point Velocity 91.4 cm/s Mitral A Point Velocity 74.9 cm/s Mitral E to A Ratio 1.2 MV Deceleration Time 264.5 ms MV E' Velocity 4.0 cm/s Mitral E to MV E' Ratio 22.7 TR Peak Velocity 289.7 cm/s TR Peak Gradient 33.6 mmHg Right Ventricular Systolic Press 38.1 mmHg FINDINGS Left Ventricle Moderately increased left ventricular wall thickness. Normal left ventricular systolic function with no obvious regional wall motion abnormalities. Left ventricular ejection fraction is estimated at 55 %. Right Ventricle Normal right ventricular size and function. Mild pulmonary hypertension. Right Atrium Normal right atrial size. Left Atrium Severely increased left atrial volume. Mitral Valve Structurally normal mitral valve. Mitral valve thickened. Mild mitral annular calcification. Moderate mitral regurgitation. Aortic Valve Trileaflet aortic valve. No aortic stenosis. Aortic valve sclerosis. Mild aortic regurgitation. Tricuspid Valve Structurally normal tricuspid valve. Mild tricuspid regurgitation. Pulmonic Valve Structurally normal pulmonic valve. Trace pulmonic regurgitation. Pericardium No pericardial effusion. Aorta Normal size aortic root and proximal ascending aorta. CONCLUSIONS Normal LV size, preserved systolic function, moderate concentric LVH. There is mitral annular calcification and aortic valve sclerosis. Moderate regurgitation. No significant pulmonary hypertension Previewed by: Dr. Hemanth Egan MD (Electronically Signed) Final Date: 19 January 2022 17:31
[2022-01-19 20:10] LABS: Glucose,Whole Blood 169 mg/dL (70-110)
[2022-01-19] MEDS ORDERED: MORPHINE SULFATE 2 MG/ML SYRINGE IVP STA (20:12)
[2022-01-19] MEDS: QUEtiapine 100 MG TAB PO SCH (20:16)
[2022-01-19] MEDS: ATORVASTATIN 20 MG TAB PO SCH (20:16)
[2022-01-19] MEDS: ALPRAZolam 1 MG TAB PO PRN (20:16)
[2022-01-19] MEDS: SYMBICORT 160-4.5 MCG INHALER INHALATION SCH (21:06)
[2022-01-20] MEDS: INSULIN ASPART (NovoLOG) 100 UNIT/ML VIAL SQ SCH ×5 (00:01→21:14)
[2022-01-20] MEDS: methylPREDNISolone SOD SUCCI 40 MG/ML 1 ML VIAL IV SCH ×3 (00:02→13:07)
[2022-01-20] MEDS: IPRATROPIUM 0.5 MG/2.5 ML NEBU INHALATION SCH ×5 (03:43→21:11)
[2022-01-20 06:43] LABS: Glucose,Whole Blood 142 mg/dL (70-110)
[2022-01-20] MEDS: LEVOTHYROXINE 75 MCG TAB PO SCH (06:45)
--- NOTE | 2022-01-20 08:34 | XR ---
EXAMINATION TYPE: XR chest 1V portable DATE OF EXAM: 01/20/2022 Comparison: 01/17/2022 Clinical History: 66-year-old female CHF Findings: The heart is moderately enlarged. Rightward patient rotation ultrasound and normal cardiac mediastina l contours. Interstitial density remains. Similar blunted right costophrenic angle probably pleural p arenchymal scarring. Impression: Moderate cardiomegaly with COPD and similar mild interstitial opacities.
[2022-01-20] MEDS: SYMBICORT 160-4.5 MCG INHALER INHALATION SCH ×2 (08:36→21:11)
[2022-01-20] MEDS: ALBUTEROL NEBULIZED 2.5 MG/3 ML INHALATION SCH ×4 (08:36→21:11)
[2022-01-20] MEDS ORDERED: INFLUENZA VACC HIGH-DOSE (65+) 240 MCG/0.7 ML SYRINGE IM ONE (09:00)
[2022-01-20] MEDS ORDERED: PNEUMOCOCCAL VACC-PNEUMOVAX 23 25 MCG/0.5 ML VIAL IM ONE (09:00)
[2022-01-20] MEDS: APIXABAN 5 MG TAB PO SCH ×2 (09:04→21:19)
[2022-01-20] MEDS: guaiFENesin 600 MG TABLET.ER PO SCH ×2 (09:05→21:19)
[2022-01-20] MEDS: PANTOPRAZOLE 40 MG TABLET PO SCH (09:05)
[2022-01-20] MEDS: FUROSEMIDE 10 MG/ML 2 ML VIAL IV SCH ×2 (09:05→21:19)
[2022-01-20] MEDS: AMIODARONE 100 MG TAB PO SCH (09:05)
[2022-01-20] MEDS: MONTELUKAST 10 MG TAB PO SCH (09:05)
[2022-01-20] MEDS: SERTRALINE 100 MG TAB PO SCH (09:05)
[2022-01-20] MEDS: METOPROLOL TARTRATE 25 MG TAB PO SCH (09:05)
[2022-01-20] MEDS: ASPIRIN 325 MG TAB PO SCH (09:05)
[2022-01-20] MEDS: HYDROcodone/APAP 5-325MG 1 EACH TAB PO PRN ×4 (09:06→21:19)
[2022-01-20 10:46] LABS: HCT 35.5 % (34.0-46.0); HGB 11.3 gm/dL (11.4-16.0); Hypochromasia Moderate; MCHC 31.9 g/dL (31.0-37.0); MCV 103.5 fL (80.0-100.0); Macrocytosis Moderate; Mean Platelet Volume 8.4; Platelet Count 187 k/uL (150-450); RBC 3.44 m/uL (3.80-5.40); WBC 14.2 k/uL (3.8-10.6)
[2022-01-20 11:12] LABS: Calcium 8.4 mg/dL (8.4-10.2); Potassium 3.8 mmol/L (3.5-5.1)
[2022-01-20 11:33] LABS: Glucose,Whole Blood 114 mg/dL (70-110)
--- NOTE | 2022-01-20 12:46 | P.PN ---
Subjective Progress Note Date: 01/20/22 Patient states that her breathing is a little bit better today compared to yesterday. Patient was not wearing her oxygen when I walked in. I checked her pulse oximetry was 92%. Patient states that since admission she has not tried to get out of bed. She states that today she will try to go to the bathroom by herself. Objective - Vital Signs Vital signs: Vital Signs Temp 98.0 F 01/20/22 10:06 Pulse 78 01/20/22 12:16 Resp 18 01/20/22 10:10 BP 103/67 01/20/22 10:06 Pulse Ox 94 L 01/20/22 10:06 FiO2 50 01/17/22 03:08 Intake & Output 01/19/22 01/20/22 01/20/22 18:59 06:59 18:59 Intake Total 240 Output Total 800 250 100 Balance -800 -10 -100 Intake: Oral 240 Output: Urine 800 250 100 Other: Voiding Method External Catheter External Catheter Bedside Commode - Exam General examination - Alert and Oriented 3 in NAD, appears chronically debilitated Heart - + S1S2 no murmurs Lungs -bilateral rhonchi Abdomen soft NT ND +ve BS Extremities - No edema 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 Psych - Calm and cooperative - Labs CBC & Chem 7: 01/20/22 10:18 01/20/22 10:18 Labs: Abnormal Lab Results - Last 24 Hours (Table) 01/19/22 01/19/22 01/20/22 Range/Units 16:43 20:08 06:42 WBC (3.8-10.6) k/uL RBC (3.80-5.40) m/uL Hgb (11.4-16.0) gm/dL MCV (80.0-100.0) fL BUN (7-17) mg/dL Creatinine (0.52-1.04) mg/dL Glucose (74-99) mg/dL POC Glucose (mg/dL) 192 H 169 H 142 H (70-110) mg/dL 01/20/22 01/20/22 01/20/22 Range/Units 10: 10:18 11:31 WBC 14.2 H (3.8-10.6) k/uL RBC 3.44 L (3.80-5.40) m/uL Hgb 11.3 L (11.4-16.0) gm/dL MCV 103.5 H (80.0-100.0) fL BUN 66 H (7-17) mg/dL Creatinine 2.02 H (0.52-1.04) mg/dL Glucose 112 H (74-99) mg/dL POC Glucose (mg/dL) 114 H (70-110) mg/dL Assessment and Plan Assessment: #Acute hypoxic respiratory failure #Acute COPD exacerbation #Acute bronchitis #Acute on chronic diastolic CHF exacerbation Chronic conditions: CAD, paroxysmal atrial fibrillation, chronic kidney disease stage III, hypertension, dyslipidemia, history of TBI, hypothyroidism Continue supplemental O2 to maintain O2 saturation greater than 92%. Continue Lasix 20 mg IV twice a day. DuoNeb scheduled and is seated for shortness of breath or wheezing. Continue Solu-Medrol. Telemetry monitoring. Echocardiogram shows normal LV with moderate MR. Pulmonology and cardiology on board. Symbicort and Atrovent started. Start Mucinex.When I walked in the room patient was on room air and was not wearing a nasal cannula. Oxygen and it was 92%. Complete a course of azithromycin. Continue home medications. Consult PT OT DVT prophylaxis: Yogesh Discussed with: Patient Anticipated discharge: 1-[address]: Home versus senior care facility
--- NOTE | 2022-01-20 16:23 | P.PN ---
Subjective Progress Note Date: 01/20/22 Principal diagnosis: Acute hypoxic respiratory failure secondary to acute exacerbation of COPD and possible acute diastolic heart failure. Reevaluated today on 01/20/22, patient remains symptomatic, continues to have intermittent cough wheezing shortness of breath, she has some difficulty clearing her secretions. She is on 3 L nasal cannula, does not seem to be in distress, however she was clearly witnessed to have difficulty with clearing of her secretions. Chest x-ray today showed cardiomegaly, COPD, and mild interstitial opacities bilaterally. Blunting of right costophrenic angle is noted. Objective - Vital Signs Vital signs: Vital Signs Temp 98.0 F 01/20/22 10:06 Pulse 73 01/20/22 15:06 Resp 18 01/20/22 15:06 BP 97/64 01/20/22 13:05 Pulse Ox 91 L 01/20/22 13:10 FiO2 50 01/17/22 03:08 Intake & Output 01/19/22 01/20/22 01/20/22 18:59 06:59 18:59 Intake Total 240 Output Total 800 250 100 Balance -800 -10 -100 Intake: Oral 240 Output: Urine 800 250 100 Other: Voiding Method External Catheter External Catheter Bedside Commode - Exam Physical Exam: Revealed 66-year-old female resting in bed, daughter at bedside, not in distress. Head: Atraumatic, normocephalic. HEENT:[Neck is supple.] [No neck masses.] [No thyromegaly.] [No JVD.] Chest: [Scattered rhonchi and wheezes noted bilaterally more so on forced expiratory maneuver. Cardiac Exam: [Normal S1 and S2, no S3 gallop, no murmur.] Abdomen: [Soft, nontender, no megaly, no rebound, no guarding, normal bowel sounds.] Extremities: [No clubbing, no edema, no cyanosis.] Neurological Exam: [No focal neurologic deficit.] Alert oriented 3. Psychiatric: Normal mood, affect normal mental status examination. Skin: No rashes - Labs CBC & Chem 7: 01/20/22 10:18 01/20/22 10:18 Labs: Abnormal Lab Results - Last 24 Hours (Table) 01/19/22 01/19/22 01/20/22 Range/Units 16:43 20:08 06:42 WBC (3.8-10.6) k/uL RBC (3.80-5.40) m/uL Hgb (11.4-16.0) gm/dL MCV (80.0-100.0) fL BUN (7-17) mg/dL Creatinine (0.52-1.04) mg/dL Glucose (74-99) mg/dL POC Glucose (mg/dL) 192 H 169 H 142 H (70-110) mg/dL 01/20/22 01/20/22 01/20/22 Range/Units 10:18 10:18 11:31 WBC 14.2 H (3.8-10.6) k/uL RBC 3.44 L (3.80-5.40) m/uL Hgb 11.3 L (11.4-16.0) gm/dL MCV 103.5 H (80.0-100.0) fL BUN 66 H (7-17) mg/dL Creatinine 2.02 H (0.52-1.04) mg/dL Glucose 112 H (74-99) mg/dL POC Glucose (mg/dL) 114 H (70-110) mg/dL Assessment and Plan Assessment: Impression: Acute hypoxic respiratory failure secondary to acute exacerbation of COPD and possibly some component of acute diastolic heart failure. Echocardiogram showed preserved LV function. Acute purulent tracheobronchitis, doubt pneumonia however considering the patie nt's symptoms I would proceed with broadening the antibiotics coverage and I'm adding Zosyn. Chronic kidney disease stage III Previous history of respiratory failure requiring mechanical ventilation, tracheostomy, and later decannulation of tracheostomy after 1 month. Coronary artery disease and previous cardiac catheterization. With coronary stenting Benign essential hypertension Hypothyroidism Recommendation: Continue bronchodilators and steroids to be increased. ADD Mucinex, and add flutter valve Add Zosyn 3.375 g every 12 hours Continue diuretics Continue methylprednisolone Add Symbicort Continue DuoNeb If no significant improvement in the next couple of days, may consider bronchoscopy and lavage. Will continue to follow Time with Patient: Less than 30
[2022-01-20] MEDS: PIPERACILLIN-TAZOBACTAM 3.375 GM in SODIUM CHLORIDE 0.9% 100 ML IVPB SCH ×2 (16:29→23:43)
[2022-01-20 16:40] LABS: Glucose,Whole Blood 137 mg/dL (70-110)
[2022-01-20] MEDS: methylPREDNISolone SOD SUCCI 125 MG/2 ML VIAL IV SCH ×2 (18:47→23:42)
[2022-01-20] MEDS: ALPRAZolam 1 MG TAB PO PRN (18:52)
[2022-01-20 20:32] LABS: Glucose,Whole Blood 145 mg/dL (70-110)
[2022-01-20] MEDS: ATORVASTATIN 20 MG TAB PO SCH (21:19)
[2022-01-20] MEDS: QUEtiapine 100 MG TAB PO SCH (21:19)
[2022-01-21] MEDS: IPRATROPIUM 0.5 MG/2.5 ML NEBU INHALATION SCH ×7 (00:26→23:49)
[2022-01-21] MEDS: LEVOTHYROXINE 75 MCG TAB PO SCH (06:06)
[2022-01-21] MEDS: methylPREDNISolone SOD SUCCI 125 MG/2 ML VIAL IV SCH ×4 (06:06→23:00)
[2022-01-21 06:29] LABS: Glucose,Whole Blood 116 mg/dL (70-110)
[2022-01-21] MEDS: INSULIN ASPART (NovoLOG) 100 UNIT/ML VIAL SQ SCH ×4 (06:37→20:37)
[2022-01-21] MEDS: HYDROcodone/APAP 5-325MG 1 EACH TAB PO PRN ×3 (08:23→16:12)
[2022-01-21] MEDS: AMIODARONE 100 MG TAB PO SCH (08:24)
[2022-01-21] MEDS: PIPERACILLIN-TAZOBACTAM 3.375 GM in SODIUM CHLORIDE 0.9% 100 ML IVPB SCH ×3 (08:24→23:00)
[2022-01-21] MEDS: ASPIRIN 325 MG TAB PO SCH (08:24)
[2022-01-21] MEDS: guaiFENesin 600 MG TABLET.ER PO SCH ×2 (08:24→20:37)
[2022-01-21] MEDS: SERTRALINE 100 MG TAB PO SCH (08:25)
[2022-01-21] MEDS: METOPROLOL TARTRATE 25 MG TAB PO SCH (08:25)
[2022-01-21] MEDS: MONTELUKAST 10 MG TAB PO SCH (08:25)
[2022-01-21] MEDS: APIXABAN 5 MG TAB PO SCH ×2 (08:25→20:37)
[2022-01-21] MEDS: FUROSEMIDE 10 MG/ML 2 ML VIAL IV SCH ×2 (08:25→20:37)
[2022-01-21] MEDS: PANTOPRAZOLE 40 MG TABLET PO SCH (08:25)
[2022-01-21] MEDS: ALBUTEROL NEBULIZED 2.5 MG/3 ML INHALATION SCH ×4 (08:55→21:08)
[2022-01-21] MEDS: SYMBICORT 160-4.5 MCG INHALER INHALATION SCH ×2 (09:14→21:08)
[2022-01-21] MEDS ORDERED: FUROSEMIDE 10 MG/ML 4 ML VIAL IV STA (10:28)
[2022-01-21 11:02] LABS: Basophils % (A) 0 %; Eosinophils % (A) 0 %; HCT 36.2 % (34.0-46.0); HGB 11.5 gm/dL (11.4-16.0); Hypochromasia Slight; Lymphocytes # (A) 0.7 k/uL (1.0-4.8); Lymphocytes % (A) 5 %; MCH 32.3 pg (25.0-35.0); MCHC 31.8 g/dL (31.0-37.0); MCV 101.7 fL (80.0-100.0); Macrocytosis Slight; Mean Platelet Volume 9.4; Monocytes # (A) 0.6 k/uL (0-1.0); Monocytes % (A) 5 %; Neutrophils # (A) 12.1 k/uL (1.3-7.7); Neutrophils % (A) 89 %; Platelet Count 204 k/uL (150-450); RBC 3.56 m/uL (3.80-5.40); RDW 15.2 % (11.5-15.5); WBC 13.7 k/uL (3.8-10.6)
[2022-01-21 11:14] LABS: Calcium 8.4 mg/dL (8.4-10.2); Potassium 4.6 mmol/L (3.5-5.1)
--- NOTE | 2022-01-21 11:31 | P.PN ---
Subjective Progress Note Date: 01/21/22 Patient says that her breathing is improving. She states that she is able to get up and use the bathroom by herself. She is complaining of back pain. Patient instructed that we will need to follow with her PCP and she can get an outpatient steroid injection. Patient understands. She is currently on [place] every 4 hours.. Objective - Vital Signs Vital signs: Vital Signs Temp 98.2 F 01/21/22 08:05 Pulse 70 01/21/22 09:13 Resp 20 01/21/22 08:05 BP 138/71 01/21/22 08:05 Pulse Ox 99 01/21/22 08:58 FiO2 50 01/17/22 03:08 Intake & Output 01/20/22 01/21/22 01/21/22 18:59 06:59 18:59 Intake Total 590 118 Output Total 400 600 Balance -400 590 -482 Intake: Oral 590 118 Output: Urine 400 600 Other: Voiding Method Bedside Commode Bedside Commode Bedside Commode # Voids 2 - Exam General examination - Alert and Oriented 3 in NAD, appears chronically debilitated Heart - + S1S2 no murmurs Lungs -bilateral rhonchi Abdomen soft NT ND +ve BS Extremities - No edema 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 Psych - Calm and cooperative - Labs CBC & Chem 7: 01/21/22 09:55 01/21/22 09:55 Labs: Abnormal Lab Results - Last 24 Hours (Table) 01/20/22 01/20/22 01/20/22 Range/Units 11:31 16:38 20:30 WBC (3.8-10.6) k/uL RBC (3.80-5.40) m/uL MCV (80.0-100.0) fL Neutrophils # (1.3-7.7) k/uL Lymphocytes # (1.0-4.8) k/uL BUN (7-17) mg/dL Creatinine (0.52-1.04) mg/dL POC Glucose (mg/dL) 114 H 137 H 145 H (70-110) mg/dL 01/21/22 01/21/22 01/21/22 Range/Units 06:27 09:55 09:55 WBC 13.7 H (3.8-10.6) k/uL RBC 3.56 L (3.80-5.40) m/uL MCV 101.7 H (80.0-100.0) fL Neutrophils # 12.1 H (1.3-7.7) k/uL Lymphocytes # 0.7 L (1.0-4.8) k/uL BUN 65 H (7-17) mg/dL Creatinine 1.99 H (0.52-1.04) mg/dL POC Glucose (mg/dL) 116 H (70-110) mg/dL Assessment and Plan Assessment: #Acute hypoxic respiratory failure #Acute COPD exacerbation #Acute bronchitis #Acute on chronic diastolic CHF exacerbation Chronic conditions: CAD, paroxysmal atrial fibrillation, chronic kidney disease stage III, hypertension, dyslipidemia, history of TBI, hypothyroidism Continue supplemental O2 to maintain O2 saturation greater than 92%. Continue Lasix 20 mg IV twice a day. DuoNeb scheduled and is seated for shortness of breath or wheezing. Continue Solu-Medrol. Telemetry monitoring. Echocardiogram shows normal LV with moderate MR. Pulmonology and cardiology on board. Symbicort and Atrovent started. Start Mucinex. Patient currently satting well on 2 L nasal cannula. Per pulmonology if her breathing does not improve and the plan is for bronchoscopy. Awaiting for pulmonology to clear patient for discharge Complete a course of azithromycin. Continue home medications. Consult PT OT DVT prophylaxis: Yogesh Discussed with: Patient Anticipated discharge: 1-[address]: Home versus [facility] facility
[2022-01-21 11:42] LABS: Glucose,Whole Blood 83 mg/dL (70-110)
--- NOTE | 2022-01-21 13:07 | P.PN ---
Subjective Progress Note Date: 01/21/22 The patient is seen today 01/21/2022 in follow-up on the selective care unit. She is currently sitting up in bed. Awake and alert in no acute distress. She is maintaining O2 saturations in the high 90s on 2 L/m per nasal cannula. She's been afebrile. Hemodynamically stable. Continues with a harsh cough. She is using her flutter valve. White count 13.7. Hemoglobin 11.5. Sodium 139. Potassium 4.6. BUN 65. Creatinine 1.99. Glucose 92. She remains on Symbicort, albuterol, IV solu Medrol, IV diuretics and Zosyn. Objective - Vital Signs Vital signs: Vital Signs Temp 98.2 F 01/21/22 08:05 Pulse 76 01/21/22 12:05 Resp 20 01/21/22 08:05 BP 111/72 01/21/22 11:59 Pulse Ox 99 01/21/22 08:58 FiO2 50 01/17/22 03:08 Intake & Output 01/20/22 01/21/22 01/21/22 18:59 06:59 18:59 Intake Total 590 118 Output Total 400 1150 Balance -400 590 -1032 Intake: Oral 590 118 Output: Urine 400 1150 Other: Voiding Method Bedside Commode Bedside Commode Bedside Commode # Voids 2 - Exam The patient is very pleasant 66-year-old female patient, calm and comfortable on 2 L O2 nasal cannula Head exam was generally normal. There was no scleral icterus or corneal arcus. Mucous membranes were moist. Neck was supple and without jugular venous distension, thyromegaly, or carotid bruits. Carotids were easily palpable bilaterally. There was no adenopathy. Lung sounds are diminished and the patient has crackles lung bases. Right greater than left Cardiac exam revealed the PMI to be normally situated and sized. The rhythm was regular and no extrasystoles were noted during several minutes of auscultation. The first and second heart sounds were normal and physiologic splitting of the second heart sound was noted. There were no murmurs, rubs, clicks, or gallops. Abdominal exam revealed normal bowel sounds. The abdomen was soft, non-tender, and without masses, organomegaly, or appreciable enlargement of the abdominal aorta. Examination of the extremities revealed easily palpable radial, femoral and pedal pulses. There was no cyanosis, clubbing or edema. Examination of the skin revealed no evidence of significant rashes, suspicious appearing nevi or other concerning lesions. Neurologically, the patient is awake and alert and the patient does not have any focal neurological deficit. Cranial nerves are essentially intact. - Labs CBC & Chem 7: 01/21/22 09:55 01/21/22 09:55 Labs: Abnormal Lab Results - Last 24 Hours (Table) 01/20/22 01/20/22 01/21/22 Range/Units 16:38 20:30 06:27 WBC (3.8-10.6) k/uL RBC (3.80-5.40) m/uL MCV (80.0-100.0) fL Neutrophils # (1.3-7.7) k/uL Lymphocytes # (1.0-4.8) k/uL BUN (7-17) mg/dL Creatinine (0.52-1.04) mg/dL POC Glucose (mg/dL) 137 H 145 H 116 H (70-110) mg/dL 01/21/22 01/21/22 Range/Units 09:55 09:55 WBC 13.7 H (3.8-10.6) k/uL RBC 3.56 L (3.80-5.40) m/uL MCV 101.7 H (80.0-100.0) fL Neutrophils # 12.1 H (1.3-7.7) k/uL Lymphocytes # 0.7 L (1.0-4.8) k/uL BUN 65 H (7-17) mg/dL Creatinine 1.99 H (0.52-1.04) mg/dL POC Glucose (mg/dL) (70-110) mg/dL Assessment and Plan Assessment: Acute COPD exacerbation/bronchitis without any clear indication for pneumonia Acute decompensated heart failure, elevated proBNP level with interstitial edema , diastolic heart failure, echo reveals preserved left ventricular systolic function with an ejection fraction 55% Acute hypoxic respiratory failure currently on 2 L Coronary artery disease with previous cardiac catheterization and coronary stenting History of atrial fibrillation current cardiac rhythm is sinus Chronic stage III kidney disease Hypertension Hyperlipidemia 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 If no significant improvement may consider bronchoscopy with BAL We will continue to follow I have personally seen and examined the patient, performed the documentation and the assessment and plan as written. Number of minutes spent on the visit: 10.
[2022-01-21 16:35] LABS: Glucose,Whole Blood 153 mg/dL (70-110)
[2022-01-21 19:57] LABS: Glucose,Whole Blood 144 mg/dL (70-110)
[2022-01-21] MEDS: QUEtiapine 100 MG TAB PO SCH (20:37)
[2022-01-21] MEDS: ATORVASTATIN 20 MG TAB PO SCH (20:37)
[2022-01-21] MEDS: ALPRAZolam 1 MG TAB PO PRN (20:43)
[2022-01-21] MEDS: ACETAMINOPHEN TAB 325 MG TAB PO PRN (23:40)
[2022-01-22] MEDS: HYDROcodone/APAP 5-325MG 1 EACH TAB PO PRN ×3 (02:32→20:32)
[2022-01-22] MEDS: IPRATROPIUM 0.5 MG/2.5 ML NEBU INHALATION SCH ×6 (03:23→23:47)
[2022-01-22 06:23] LABS: Glucose,Whole Blood 179 mg/dL (70-110)
[2022-01-22] MEDS: LEVOTHYROXINE 75 MCG TAB PO SCH (06:24)
[2022-01-22] MEDS: INSULIN ASPART (NovoLOG) 100 UNIT/ML VIAL SQ SCH ×4 (06:24→20:31)
[2022-01-22] MEDS: methylPREDNISolone SOD SUCCI 125 MG/2 ML VIAL IV SCH ×4 (06:24→22:55)
--- NOTE | 2022-01-22 06:54 | XR ---
EXAMINATION TYPE: XR chest 1V portable DATE OF EXAM: 01/22/2022 CLINICAL HISTORY: Difficulty breathing and CHF progress study. TECHNIQUE: Single AP portable upright view of the chest is obtained. COMPARISON: Chest x-ray from 2 days earlier and older studies FINDINGS: Cardiomegaly with mild interstitial prominence bilaterally and small to tiny right pleural effusion is redemonstrated. No new focal airspace opacity or pneumothorax seen bilaterally. Osseous structures are intact. IMPRESSION: Cardiomegaly with small to tiny right pleural effusion and/or pleural thickening and mil d interstitial edema and/or interstitial fibrosis are redemonstrated. No significant change from most recent prior studies.
[2022-01-22] MEDS: SYMBICORT 160-4.5 MCG INHALER INHALATION SCH ×2 (07:48→20:51)
[2022-01-22] MEDS: ALBUTEROL NEBULIZED 2.5 MG/3 ML INHALATION SCH ×4 (07:48→20:47)
[2022-01-22 08:54] LABS: Calcium 8.4 mg/dL (8.4-10.2); Magnesium 2.6 mg/dL (1.6-2.3); Potassium 4.4 mmol/L (3.5-5.1)
[2022-01-22] MEDS: PANTOPRAZOLE 40 MG TABLET PO SCH (09:01)
[2022-01-22] MEDS: APIXABAN 5 MG TAB PO SCH ×2 (09:01→20:31)
[2022-01-22] MEDS: METOPROLOL TARTRATE 25 MG TAB PO SCH (09:01)
[2022-01-22] MEDS: MONTELUKAST 10 MG TAB PO SCH (09:01)
[2022-01-22] MEDS: ASPIRIN 325 MG TAB PO SCH (09:01)
[2022-01-22] MEDS: guaiFENesin 600 MG TABLET.ER PO SCH ×2 (09:01→20:31)
[2022-01-22] MEDS: AMIODARONE 100 MG TAB PO SCH (09:01)
[2022-01-22] MEDS: PIPERACILLIN-TAZOBACTAM 3.375 GM in SODIUM CHLORIDE 0.9% 100 ML IVPB SCH ×3 (09:02→22:55)
[2022-01-22] MEDS: FUROSEMIDE 10 MG/ML 2 ML VIAL IV SCH ×2 (09:02→20:31)
[2022-01-22] MEDS: SERTRALINE 100 MG TAB PO SCH (09:08)
[2022-01-22 09:18] LABS: Basophils % (A) 0 %; Eosinophils % (A) 0 %; HCT 37.5 % (34.0-46.0); HGB 12.4 gm/dL (11.4-16.0); Lymphocytes # (A) 0.6 k/uL (1.0-4.8); Lymphocytes % (A) 6 %; MCH 33.2 pg (25.0-35.0); MCHC 32.9 g/dL (31.0-37.0); MCV 100.7 fL (80.0-100.0); Macrocytosis Slight; Mean Platelet Volume 9.2; Monocytes # (A) 0.4 k/uL (0-1.0); Monocytes % (A) 3 %; Neutrophils # (A) 9.5 k/uL (1.3-7.7); Neutrophils % (A) 90 %; Platelet Count 193 k/uL (150-450); RBC 3.72 m/uL (3.80-5.40); RDW 14.7 % (11.5-15.5); WBC 10.6 k/uL (3.8-10.6)
--- NOTE | 2022-01-22 09:56 | P.PN ---
Subjective Progress Note Date: 01/22/22 Patient says that she still feels short of breath. She said that it is improving. She states that she is still not ready to go home. Objective - Vital Signs Vital signs: Vital Signs Temp 97.9 F 01/22/22 08:59 Pulse 74 01/22/22 08:59 Resp 20 01/22/22 08:59 BP 114/69 01/22/22 08:59 Pulse Ox 96 01/22/22 08:59 FiO2 50 01/17/22 03:08 Intake & Output 01/21/22 01/22/22 01/22/22 18:59 06:59 18:59 Intake Total 354 Output Total 1150 1400 Balance -796 -1400 Weight 82.2 kg Intake: Oral 354 Output: Urine 1150 1400 Other: Voiding Method Bedside Commode Bedside Commode - Exam General examination - Alert and Oriented 3 in NAD, appears chronically debilitated Heart - + S1S2 no murmurs Lungs -diminished but does bilaterally Abdomen soft NT ND +ve BS Extremities - No edema 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 Psych - Calm and cooperative - Labs CBC & Chem 7: 01/22/22 08:20 01/22/22 08:20 Labs: Abnormal Lab Results - Last 24 Hours (Table) 01/21/22 01/21/22 01/21/22 Range/Units 09:55 09:55 16:34 WBC 13.7 H (3.8-10.6) k/uL RBC 3.56 L (3.80-5.40) m/uL MCV 101.7 H (80.0-100.0) fL Neutrophils # 12.1 H (1.3-7.7) k/uL Lymphocytes # 0.7 L (1.0-4.8) k/uL BUN 65 H (7-17) mg/dL Creatinine 1.99 H (0.52-1.04) mg/dL Glucose (74-99) mg/dL POC Glucose (mg/dL) 153 H (70-110) mg/dL Magnesium (1.6-2.3) mg/dL 01/21/22 01/22/22 01/22/22 Range/Units 19:55 06:21 08:20 WBC (3.8-10.6) k/uL RBC 3.72 L (3.80-5.40) m/uL MCV 100.7 H (80.0-100.0) fL Neutrophils # 9.5 H (1.3-7.7) k/uL Lymphocytes # 0.6 L (1.0-4.8) k/uL BUN (7-17) mg/dL Creatinine (0.52-1.04) mg/dL Glucose (74-99) mg/dL POC Glucose (mg/dL) 144 H 179 H (70-110) mg/dL Magnesium (1.6-2.3) mg/dL 01/22/22 Range/Units 08:20 WBC (3.8-10.6) k/uL RBC (3.80-5.40) m/uL MCV (80.0-100.0) fL Neutrophils # (1.3-7.7) k/uL Lymphocytes # (1.0-4.8) k/uL BUN 76 H (7-17) mg/dL Creatinine 2.18 H (0.52-1.04) mg/dL Glucose 120 H (74-99) mg/dL POC Glucose (mg/dL) (70-110) mg/dL Magnesium 2.6 H (1.6-2.3) mg/dL Microbiology - Last 24 Hours (Table) 01/21/22 19:29 Gram Stain - Preliminary Sputum Sputum Culture - Preliminary Assessment and Plan Assessment: #Acute hypoxic respiratory failure #Acute COPD exacerbation #Acute bronchitis #Acute on chronic diastolic CHF exacerbation Chronic conditions: CAD, paroxysmal atrial fibrillation, chronic kidney disease stage III, hypertension, dyslipidemia, history of TBI, hypothyroidism Continue supplemental O2 to maintain O2 saturation greater than 92%. Continue Lasix 20 mg IV twice a day. DuoNeb scheduled and is seated for shortness of breath or wheezing. Continue Solu-Medrol. Telemetry monitoring. Echocardiogram shows normal LV with moderate MR. Pulmonology and cardiology on board. Symbicort and Atrovent started. Start Mucinex. Patient currently satting well on 2 L nasal cannula. Resume IV Zosyn. Per pulmonology if her breathing does not improve then plan is for bronchoscopy. Awaiting for pulmonology to clear patient for discharge. Continue home medications. Consult PT OT -> recommended home with home care DVT prophylaxis: Yogesh Discussed with: Patient Anticipated discharge: 1-2 dys (awaiting for pulmonology to clear patient for discharge) Anticipated discharge place: Home with home care
[2022-01-22 11:53] LABS: Glucose,Whole Blood 168 mg/dL (70-110)
--- NOTE | 2022-01-22 12:32 | P.PN ---
Subjective Progress Note Date: 01/22/22 The patient is seen today 01/21/2022 in follow-up on the selective care unit. She is currently sitting up in bed. Awake and alert in no acute distress. She is maintaining O2 saturations in the high 90s on 2 L/m per nasal cannula. She's been afebrile. Hemodynamically stable. Continues with a harsh cough. She is using her flutter valve. White count 13.7. Hemoglobin 11.5. Sodium 139. Potassium 4.6. BUN 65. Creatinine 1.99. Glucose 92. She remains on Symbicort, albuterol, IV solu Medrol, IV diuretics and Zosyn. The patient is seen today 01/22/2022 in follow-up on the selective care unit. Currently sitting up in a chair at the bedside. Awake and alert in no acute distress. She is maintaining O2 saturations in the 90s on room air. Afebrile. Hemodynamically stable. Continues with a harsh nonproductive cough. White count 10.6. Hemoglobin 12.4. Sodium 140. Potassium 4.2. BUN 76. Creatinine 2.18. GFR 23. She is continued on Lasix 20 mg IV every 12 hours. She is currently in a -1.1 L balance. Chest x-ray continues to revealed cardiomegaly with mild a tiny right pleural effusion or pleural thickening. Mild interstitial edema. No significant change. Objective - Vital Signs Vital signs: Vital Signs Temp 97.9 F 01/22/22 08:59 Pulse 68 01/22/22 11:05 Resp 20 01/22/22 08:59 BP 114/69 01/22/22 08:59 Pulse Ox 96 01/22/22 08:59 FiO2 50 01/17/22 03:08 Intake & Output 01/21/22 01/22/22 01/22/22 18:59 06:59 18:59 Intake Total 354 180 Output Total 1150 1400 Balance -796 -1400 180 Weight 82.2 kg Intake: Oral 354 180 Output: Urine 1150 1400 Other: Voiding Method Bedside Commode Bedside Commode - Exam The patient is a pleasant 66-year-old female, calm and comfortable on room air Head exam was generally normal. There was no scleral icterus or corneal arcus. Mucous membranes were moist. Neck was supple and without jugular venous distension, thyromegaly, or carotid bruits. Carotids were easily palpable bilaterally. There was no adenopathy. Lung sounds are diminished and the patient has crackles lung bases. Right greater than left Cardiac exam revealed the PMI to be normally situated and sized. The rhythm was regular and no extrasystoles were noted during several minutes of auscultation. The first and second heart sounds were normal and physiologic splitting of the second heart sound was noted. There were no murmurs, rubs, clicks, or gallops. Abdominal exam revealed normal bowel sounds. The abdomen was soft, non-tender, and without masses, organomegaly, or appreciable enlargement of the abdominal aorta. Examination of the extremities revealed easily palpable radial, femoral and pedal pulses. There was no cyanosis, clubbing or edema. Examination of the skin revealed no evidence of significant rashes, suspicious appearing nevi or other concerning lesions. Neurologically, the patient is awake and alert and the patient does not have any focal neurological deficit. Cranial nerves are essentially intact. - Labs CBC & Chem 7: 01/22/22 08:20 01/22/22 08:20 Labs: Abnormal Lab Results - Last 24 Hours (Table) 01/21/22 01/21/22 01/22/22 Range/Units 16:34 19:55 06:21 RBC (3.80-5.40) m/uL MCV (80.0-100.0) fL Neutrophils # (1.3-7.7) k/uL Lymphocytes # (1.0-4.8) k/uL BUN (7-17) mg/dL Creatinine (0.52-1.04) mg/dL Glucose (74-99) mg/dL POC Glucose (mg/dL) 153 H 144 H 179 H (70-110) mg/dL Magnesium (1.6-2.3) mg/dL 01/22/22 01/22/22 01/22/22 Range/Units 08:20 08:20 11:51 RBC 3.72 L (3.80-5.40) m/uL MCV 100.7 H (80.0-100.0) fL Neutrophils # 9.5 H (1.3-7.7) k/uL Lymphocytes # 0.6 L (1.0-4.8) k/uL BUN 76 H (7-17) mg/dL Creatinine 2.18 H (0.52-1.04) mg/dL Glucose 120 H (74-99) mg/dL POC Glucose (mg/dL) 168 H (70-110) mg/dL Magnesium 2.6 H (1.6-2.3) mg/dL Microbiology - Last 24 Hours (Table) 01/21/22 19:29 Gram Stain - Preliminary Sputum Sputum Culture - Preliminary Assessment and Plan Assessment: Acute COPD exacerbation/bronchitis without any clear indication for pneumonia, empirically on Zosyn. Sputum culture pending. Pro-calcitonin pending. 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 Hypothyroidism Previous history of UTIs Previous susceptibility of the right lower extremity in 1985 Previous history of a permanent pain stimulator insertion and subsequent removal Plan: The patient was seen and evaluated Medications and labs reviewed Sputum culture pending, pro-calcitonin pending Continue bronchodilators, IV Solu-Medrol, antibiotics Continue Lasix 20 mg IV every 12 hours The patient is slowly improving and declining bronchoscopy at this point We will continue to follow I have personally seen and examined the patient, performed the documentation and the assessment and plan as written. Number of minutes spent on the visit: 10.
[2022-01-22 16:46] LABS: Glucose,Whole Blood 192 mg/dL (70-110)
[2022-01-22 20:22] LABS: Glucose,Whole Blood 130 mg/dL (70-110)
[2022-01-22] MEDS: QUEtiapine 100 MG TAB PO SCH (20:31)
[2022-01-22] MEDS: ATORVASTATIN 20 MG TAB PO SCH (20:31)
[2022-01-22] MEDS: ALPRAZolam 1 MG TAB PO PRN (22:19)
[2022-01-23] MEDS: IPRATROPIUM 0.5 MG/2.5 ML NEBU INHALATION SCH ×5 (04:03→20:44)
[2022-01-23 06:12] LABS: Glucose,Whole Blood 172 mg/dL (70-110)
[2022-01-23] MEDS: LEVOTHYROXINE 75 MCG TAB PO SCH (06:22)
[2022-01-23] MEDS: methylPREDNISolone SOD SUCCI 125 MG/2 ML VIAL IV SCH ×4 (06:22→23:46)
[2022-01-23] MEDS: INSULIN ASPART (NovoLOG) 100 UNIT/ML VIAL SQ SCH ×4 (06:22→20:34)
[2022-01-23] MEDS: SYMBICORT 160-4.5 MCG INHALER INHALATION SCH ×2 (07:15→20:44)
[2022-01-23] MEDS: ALBUTEROL NEBULIZED 2.5 MG/3 ML INHALATION SCH ×4 (07:15→20:44)
[2022-01-23 07:58] LABS: Basophils % (A) 0 %; Eosinophils % (A) 0 %; HCT 33.9 % (34.0-46.0); Hypochromasia Slight; Lymphocytes # (A) 0.5 k/uL (1.0-4.8); Lymphocytes % (A) 5 %; MCH 32.9 pg (25.0-35.0); MCHC 32.3 g/dL (31.0-37.0); MCV 101.9 fL (80.0-100.0); Macrocytosis Slight; Mean Platelet Volume 8.8; Monocytes # (A) 0.4 k/uL (0-1.0); Monocytes % (A) 3 %; Neutrophils # (A) 9.6 k/uL (1.3-7.7); Neutrophils % (A) 91 %; Platelet Count 190 k/uL (150-450); RBC 3.33 m/uL (3.80-5.40); RDW 14.7 % (11.5-15.5); WBC 10.6 k/uL (3.8-10.6)
[2022-01-23 08:16] LABS: Calcium 7.7 mg/dL (8.4-10.2); Magnesium 2.5 mg/dL (1.6-2.3)
[2022-01-23] MEDS: PIPERACILLIN-TAZOBACTAM 3.375 GM in SODIUM CHLORIDE 0.9% 100 ML IVPB SCH ×3 (09:27→20:34)
[2022-01-23] MEDS: HYDROcodone/APAP 5-325MG 1 EACH TAB PO PRN ×2 (09:28→17:06)
[2022-01-23] MEDS: ASPIRIN 325 MG TAB PO SCH (09:28)
[2022-01-23] MEDS: guaiFENesin 600 MG TABLET.ER PO SCH ×2 (09:28→20:33)
[2022-01-23] MEDS: AMIODARONE 100 MG TAB PO SCH (09:28)
[2022-01-23] MEDS: APIXABAN 5 MG TAB PO SCH ×2 (09:28→20:34)
[2022-01-23] MEDS: METOPROLOL TARTRATE 25 MG TAB PO SCH (09:29)
[2022-01-23] MEDS: MONTELUKAST 10 MG TAB PO SCH (09:29)
[2022-01-23] MEDS: SERTRALINE 100 MG TAB PO SCH (09:29)
[2022-01-23] MEDS: PANTOPRAZOLE 40 MG TABLET PO SCH (09:29)
--- NOTE | 2022-01-23 10:42 | P.PN ---
Subjective Progress Note Date: 01/23/22 Patient says that she still having a cough and shortness of breath. She states that she let would like to completely better before she can go home. I discussed with pulmonology who said that we can start working on discharge planning. I also discussed with the patient that I need to wean her off the No rco as per planning on discharging her soon. Objective - Vital Signs Vital signs: Vital Signs Temp 98.0 F 01/23/22 08:00 Pulse 74 01/23/22 08:00 Resp 18 01/23/22 08:00 BP 110/62 01/23/22 08:00 Pulse Ox 95 01/23/22 08:00 FiO2 50 01/17/22 03:08 Intake & Output 01/22/22 01/23/22 01/23/22 18:59 06:59 18:59 Intake Total 540 0 Output Total 350 1000 Balance 190 -1000 0 Intake: Oral 540 0 Output: Urine 350 1000 Other: Voiding Method Bedside Commode Bedside Commode Bedside Commode - Exam General examination - Alert and Oriented 3 in NAD, appears chronically debilitated Heart - + S1S2 no murmurs Lungs -diminished but does bilaterally Abdomen soft NT ND +ve BS Extremities - No edema 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 Psych - Calm and cooperative - Labs CBC & Chem 7: 01/23/22 07:19 01/23/22 07:19 Labs: Abnormal Lab Results - Last 24 Hours (Table) 01/22/22 01/22/22 01/22/22 Range/Units 11:51 12:40 16:44 RBC (3.80-5.40) m/uL Hgb (11.4-16.0) gm/dL Hct (34.0-46.0) % MCV (80.0-100.0) fL Neutrophils # (1.3-7.7) k/uL Lymphocytes # (1.0-4.8) k/uL BUN (7-17) mg/dL Creatinine (0.52-1.04) mg/dL Glucose (74-99) mg/dL POC Glucose (mg/dL) 168 H 192 H (70-110) mg/dL Calcium (8.4-10.2) mg/dL Magnesium (1.6-2.3) mg/dL Procalcitonin 0.13 H (0.02-0.09) ng/mL 01/22/22 01/23/22 01/23/22 Range/Units 20:21 06:11 07:19 RBC 3.33 L (3.80-5.40) m/uL Hgb 11.0 L (11.4-16.0) gm/dL Hct 33.9 L (34.0-46.0) % MCV 101.9 H (80.0-100.0) fL Neutrophils # 9.6 H (1.3-7.7) k/uL Lymphocytes # 0.5 L (1.0-4.8) k/uL BUN (7-17) mg/dL Creatinine (0.52-1.04) mg/dL Glucose (74-99) mg/dL POC Glucose (mg/dL) 130 H 172 H (70-110) mg/dL Calcium (8.4-10.2) mg/dL Magnesium (1.6-2.3) mg/dL Procalcitonin (0.02-0.09) ng/mL 01/23/22 Range/Units 07:19 RBC (3.80-5.40) m/uL Hgb (11.4-16.0) gm/dL Hct (34.0-46.0) % MCV (80.0-100.0) fL Neutrophils # (1.3-7.7) k/uL Lymphocytes # (1.0-4.8) k/uL BUN 76 H (7-17) mg/dL Creatinine 2.52 H (0.52-1.04) mg/dL Glucose 154 H (74-99) mg/dL POC Glucose (mg/dL) (70-110) mg/dL Calcium 7.7 L (8.4-10.2) mg/dL Magnesium 2.5 H (1.6-2.3) mg/dL Procalcitonin (0.02-0.09) ng/mL Microbiology - Last 24 Hours (Table) 01/21/22 19:29 Gram Stain - Preliminary Sputum Sputum Culture - Preliminary Assessment and Plan Assessment: #Acute hypoxic respiratory failure #Acute COPD exacerbation #Acute bronchitis #Acute on chronic diastolic CHF exacerbation Chronic conditions: CAD, paroxysmal atrial fibrillation, chronic kidney disease stage III, hypertension, dyslipidemia, history of TBI, hypothyroidism Continue supplemental O2 to maintain O2 saturation greater than 92%. Yeimi scheduled and is seated for shortness of breath or wheezing. Continue Solu- Medrol. Telemetry monitoring. Echocardiogram shows normal LV with moderate MR. Pulmonology and cardiology on board. Symbicort and Atrovent started. Start Mucinex. Patient currently satting well on 2 L nasal cannula. Resume IV Zosyn. Per pulmonology if her breathing does not improve then plan is for br onchoscopy. Awaiting for pulmonology to clear patient for discharge. Since creatinine is increasing we will switch her Lasix to oral 20 mg twice a day Wean her off the narcotic Continue home medications. Consult PT OT -> recommended home with home care DVT prophylaxis: Yogesh Discussed with: Patient Anticipated discharge: In the next 24 hours (awaiting for pulmonology to clear patient for discharge) Anticipated discharge place: Home with home care
[2022-01-23 11:39] LABS: Glucose,Whole Blood 146 mg/dL (70-110)
[2022-01-23] MEDS: ACETAMINOPHEN TAB 325 MG TAB PO PRN (12:33)
--- NOTE | 2022-01-23 13:11 | P.PN ---
Subjective Progress Note Date: 01/23/22 The patient is seen today 01/21/2022 in follow-up on the selective care unit. She is currently sitting up in bed. Awake and alert in no acute distress. She is maintaining O2 saturations in the high 90s on 2 L/m per nasal cannula. She's been afebrile. Hemodynamically stable. Continues with a harsh cough. She is using her flutter valve. White count 13.7. Hemoglobin 11.5. Sodium 139. Potassium 4.6. BUN 65. Creatinine 1.99. Glucose 92. She remains on Symbicort, albuterol, IV solu Medrol, IV diuretics and Zosyn. The patient is seen today 01/22/2022 in follow-up on the selective care unit. Currently sitting up in a chair at the bedside. Awake and alert in no acute distress. She is maintaining O2 saturations in the 90s on room air. Afebrile. Hemodynamically stable. Continues with a harsh nonproductive cough. White count 10.6. Hemoglobin 12.4. Sodium 140. Potassium 4.2. BUN 76. Creatinine 2.18. GFR 23. She is continued on Lasix 20 mg IV every 12 hours. She is currently in a -1.1 L balance. Chest x-ray continues to revealed cardiomegaly with mild a tiny right pleural effusion or pleural thickening. Mild interstitial edema. No significant change. The patient is seen today 01/23/2022 in follow-up on the selective care unit. She is currently sitting up in bed. Awake and alert in no acute distress. Feeling better today compared to yesterday. Not quite back to her baseline. Sputum culture revealed no growth. She is maintaining good O2 saturations in the 90s on room air. Afebrile. She is continued on IV Solu-Medrol, bronchodilators, antibiotics in the form of Zosyn. Remains on diuretics. White count 10.6. Hemoglobin 11.0. Sodium 138. Potassium 4.0. BUN 76. Creatinine 2.52. Glucose 154. Pro-calcitonin 0.13. Objective - Vital Signs Vital signs: Vital Signs Temp 98.1 F 01/23/22 12:00 Pulse 67 01/23/22 12:00 Resp 18 01/23/22 12:00 BP 109/60 01/23/22 12:00 Pulse Ox 98 01/23/22 12:00 FiO2 50 01/17/22 03:08 Intake & Output 01/22/22 01/23/22 01/23/22 18:59 06:59 18:59 Intake Total 540 0 Output Total 350 1000 Balance 190 -1000 0 Intake: Oral 540 0 Output: Urine 350 1000 Other: Voiding Method Bedside Commode Bedside Commode Bedside Commode - Exam The patient is a pleasant 66-year-old female, calm and comfortable on room air Head exam was generally normal. There was no scleral icterus or corneal arcus. Mucous membranes were moist. Neck was supple and without jugular venous distension, thyromegaly, or carotid bruits. Carotids were easily palpable bilaterally. There was no adenopathy. Lung sounds are diminished and the patient has crackles lung bases. Right g reater than left Cardiac exam revealed the PMI to be normally situated and sized. The rhythm was regular and no extrasystoles were noted during several minutes of auscultation. The first and second heart sounds were normal and physiologic splitting of the second heart sound was noted. There were no murmurs, rubs, clicks, or gallops. Abdominal exam revealed normal bowel sounds. The abdomen was soft, non-tender, and without masses, organomegaly, or appreciable enlargement of the abdominal aorta. Examination of the extremities revealed easily palpable radial, femoral and pedal pulses. There was no cyanosis, clubbing or edema. Examination of the skin revealed no evidence of significant rashes, suspicious appearing nevi or other concerning lesions. Neurologically, the patient is awake and alert and the patient does not have any focal neurological deficit. Cranial nerves are essentially intact. - Labs CBC & Chem 7: 01/23/22 07:19 01/23/22 07:19 Labs: Abnormal Lab Results - Last 24 Hours (Table) 01/22/22 01/22/22 01/22/22 Range/Units 12:40 16:44 20:21 RBC (3.80-5.40) m/uL Hgb (11.4-16.0) gm/dL Hct (34.0-46.0) % MCV (80.0-100.0) fL Neutrophils # (1.3-7.7) k/uL Lymphocytes # (1.0-4.8) k/uL BUN (7-17) mg/dL Creatinine (0.52-1.04) mg/dL Glucose (74-99) mg/dL POC Glucose (mg/dL) 192 H 130 H (70-110) mg/dL Calcium (8.4-10.2) mg/dL Magnesium (1.6-2.3) mg/dL Procalcitonin 0.13 H (0.02-0.09) ng/mL 01/23/22 01/23/22 01/23/22 Range/Units 06:11 07:19 07:19 RBC 3.33 L (3.80-5.40) m/uL Hgb 11.0 L (11.4-16.0) gm/dL Hct 33.9 L (34.0-46.0) % MCV 101.9 H (80.0-100.0) fL Neutrophils # 9.6 H (1.3-7.7) k/uL Lymphocytes # 0.5 L (1.0-4.8) k/uL BUN 76 H (7-17) mg/dL Creatinine 2.52 H (0.52-1.04) mg/dL Glucose 154 H (74-99) mg/dL POC Glucose (mg/dL) 172 H (70-110) mg/dL Calcium 7.7 L (8.4-10.2) mg/dL Magnesium 2.5 H (1.6-2.3) mg/dL Procalcitonin (0.02-0.09) ng/mL 01/23/22 Range/Units 11:37 RBC (3.80-5.40) m/uL Hgb (11.4-16.0) gm/dL Hct (34.0-46.0) % MCV (80.0-100.0) fL Neutrophils # (1.3-7.7) k/uL Lymphocytes # (1.0-4.8) k/uL BUN (7-17) mg/dL Creatinine (0.52-1.04) mg/dL Glucose (74-99) mg/dL POC Glucose (mg/dL) 146 H (70-110) mg/dL Calcium (8.4-10.2) mg/dL Magnesium (1.6-2.3) mg/dL Procalcitonin (0.02-0.09) ng/mL Microbiology - Last 24 Hours (Table) 01/21/22 19:29 Gram Stain - Final Sputum Sputum Culture - Final Assessment and Plan Assessment: Acute COPD exacerbation/bronchitis without any clear indication for pneumonia, empirically on Zosyn. Sputum culture feels no growth. Pro-calcitonin 0.13. 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 Continue bronchodilators, IV Solu-Medrol, antibiotics We will continue to follow I have personally seen and examined the patient, performed the documentation and the assessment and plan as written. Number of minutes spent on the visit: 10.
[2022-01-23 16:20] LABS: Glucose,Whole Blood 155 mg/dL (70-110)
[2022-01-23 20:17] LABS: Glucose,Whole Blood 161 mg/dL (70-110)
[2022-01-23] MEDS: FUROSEMIDE 20 MG TAB PO SCH (20:33)
[2022-01-23] MEDS: QUEtiapine 100 MG TAB PO SCH (20:33)
[2022-01-23] MEDS: ATORVASTATIN 20 MG TAB PO SCH (20:34)
[2022-01-23] MEDS: ALPRAZolam 1 MG TAB PO PRN (20:34)
[2022-01-24] MEDS: IPRATROPIUM 0.5 MG/2.5 ML NEBU INHALATION SCH ×4 (00:50→11:32)
[2022-01-24 06:28] LABS: Glucose,Whole Blood 122 mg/dL (70-110)
[2022-01-24] MEDS: INSULIN ASPART (NovoLOG) 100 UNIT/ML VIAL SQ SCH ×2 (06:29→12:12)
[2022-01-24] MEDS: methylPREDNISolone SOD SUCCI 125 MG/2 ML VIAL IV SCH ×2 (06:33→11:18)
[2022-01-24] MEDS: SYMBICORT 160-4.5 MCG INHALER INHALATION SCH (07:47)
[2022-01-24] MEDS: ALBUTEROL NEBULIZED 2.5 MG/3 ML INHALATION SCH ×2 (07:47→11:32)
[2022-01-24] MEDS ORDERED: MIDAZOLAM 2 MG/2 ML VIAL ONE (08:07)
[2022-01-24] MEDS ORDERED: LIDOCAINE 2% INJ 20 MG/ML (2 ML VIAL) ONE (08:07)
[2022-01-24] MEDS ORDERED: KETAMINE 10 MG/ML 20 ML VIAL ONE (08:07)
[2022-01-24] MEDS ORDERED: fentaNYL (PF) 50 MCG/ML 2 ML AMP ONE (08:07)
[2022-01-24] MEDS ORDERED: PROPOFOL 10 MG/ML 20 ML VIAL IV ONE (08:07)
[2022-01-24] MEDS ORDERED: IV FLUID CONTINUATION 1,000 ML IV ONE ×2 (08:13)
[2022-01-24] MEDS ORDERED: LIDOCAINE 2% INJ 20 MG/ML INTRATRACH ONE (08:19)
[2022-01-24 08:58] VITALS: RESP 18; TEMP 98.2
[2022-01-24] MEDS: SERTRALINE 100 MG TAB PO SCH (09:45)
[2022-01-24] MEDS: PIPERACILLIN-TAZOBACTAM 3.375 GM in SODIUM CHLORIDE 0.9% 100 ML IVPB SCH (09:45)
[2022-01-24] MEDS: PANTOPRAZOLE 40 MG TABLET PO SCH (09:45)
[2022-01-24] MEDS: ASPIRIN 325 MG TAB PO SCH (09:45)
[2022-01-24] MEDS: LEVOTHYROXINE 75 MCG TAB PO SCH (09:45)
[2022-01-24] MEDS: METOPROLOL TARTRATE 25 MG TAB PO SCH (09:45)
[2022-01-24] MEDS: APIXABAN 5 MG TAB PO SCH (09:45)
[2022-01-24] MEDS: AMIODARONE 100 MG TAB PO SCH (09:45)
[2022-01-24] MEDS: guaiFENesin 600 MG TABLET.ER PO SCH (09:45)
[2022-01-24] MEDS: FUROSEMIDE 20 MG TAB PO SCH (09:45)
[2022-01-24] MEDS: MONTELUKAST 10 MG TAB PO SCH (09:45)
[2022-01-24 11:32] VITALS: BP 108/60
[2022-01-24 11:49] VITALS: PULSE 84
[2022-01-24 11:54] LABS: Glucose,Whole Blood 195 mg/dL (70-110)
--- NOTE | 2022-01-24 11:55 | P.PN ---
Subjective Progress Note Date: 01/24/22 The patient is seen today 01/21/2022 in follow-up on the selective care unit. She is currently sitting up in bed. Awake and alert in no acute distress. She is maintaining O2 saturations in the high 90s on 2 L/m per nasal cannula. She's been afebrile. Hemodynamically stable. Continues with a harsh cough. She is using her flutter valve. White count 13.7. Hemoglobin 11.5. Sodium 139. Potassium 4.6. BUN 65. Creatinine 1.99. Glucose 92. She remains on Symbicort, albuterol, IV solu Medrol, IV diuretics and Zosyn. The patient is seen today 01/22/2022 in follow-up on the selective care unit. Currently sitting up in a chair at the bedside. Awake and alert in no acute distress. She is maintaining O2 saturations in the 90s on room air. Afebrile. Hemodynamically stable. Continues with a harsh nonproductive cough. White count 10.6. Hemoglobin 12.4. Sodium 140. Potassium 4.2. BUN 76. Creatinine 2.18. GFR 23. She is continued on Lasix 20 mg IV every 12 hours. She is currently in a -1.1 L balance. Chest x-ray continues to revealed cardiomegaly with mild a tiny right pleural effusion or pleural thickening. Mild interstitial edema. No significant change. The patient is seen today 01/23/2022 in follow-up on the selective care unit. She is currently sitting up in bed. Awake and alert in no acute distress. Feeling better today compared to yesterday. Not quite back to her baseline. Sputum culture revealed no growth. She is maintaining good O2 saturations in the 90s on room air. Afebrile. She is continued on IV Solu-Medrol, bronchodilators, antibiotics in the form of Zosyn. Remains on diuretics. White count 10.6. Hemoglobin 11.0. Sodium 138. Potassium 4.0. BUN 76. Creatinine 2.52. Glucose 154. Pro-calcitonin 0.13. The patient is seen today 01/24/2022 in follow-up on the selective care unit. She is currently awake and alert in no acute distress. She did undergo bronchoscopy with BAL this morning with Dr. Briseno. Minimal secretions noted. Random bronchiolar lavage with specimen sent to lab. She is feeling better. Less shortness of breath. Less cough and congestion. Sputum culture revealed no growth. Blood glucose 122. She is continued on IV Solu-Medrol, bronchodilators, antibiotics in the form of Zosyn. Objective - Vital Signs Vital signs: Vital Signs Temp 98.2 F 01/24/22 11:31 Pulse 84 01/24/22 11:46 Resp 18 01/24/22 11:31 BP 108/60 01/24/22 11:31 Pulse Ox 98 01/24/22 11:31 FiO2 50 01/17/22 03:08 Intake & Output 01/23/22 01/24/22 01/24/22 18:59 06:59 18:59 Intake Total 540 100 Output Total 500 650 Balance 40 -650 100 Intake: IV 100 Oral 540 Output: Urine 500 650 Other: Voiding Method Bedside Commode External Catheter External Catheter - Exam The patient is a pleasant 66-year-old female, on 2 L/m per nasal cannula, calm and comfortable on room air Head exam was generally normal. There was no scleral icterus or corneal arcus. Mucous membranes were moist. Neck was supple and without jugular venous distension, thyromegaly, or carotid bruits. Carotids were easily palpable bilaterally. There was no adenopathy. Lung sounds are diminished and the patient has crackles lung bases. Right greater than left Cardiac exam revealed the PMI to be normally situated and sized. The rhythm was regular and no extrasystoles were noted during several minutes of auscultation. The first and second heart sounds were normal and physiologic splitting of the second heart sound was noted. There were no murmurs, rubs, clicks, or gallops. Abdominal exam revealed normal bowel sounds. The abdomen was soft, non-tender, and without masses, organomegaly, or appreciable enlargement of the abdominal aorta. Examination of the extremities revealed easily palpable radial, femoral and pedal pulses. There was no cyanosis, clubbing or edema. Examination of the skin revealed no evidence of significant rashes, suspicious appearing nevi or other concerning lesions. Neurologically, the patient is awake and alert and the patient does not have any focal neurological deficit. Cranial nerves are essentially intact. - Labs CBC & Chem 7: 01/23/22 07:19 01/23/22 07:19 Labs: Abnormal Lab Results - Last 24 Hours (Table) 01/23/22 01/23/22 01/24/22 Range/Units 16:18 20:16 06:26 POC Glucose (mg/dL) 155 H 161 H 122 H (70-110) mg/dL Microbiology - Last 24 Hours (Table) 01/21/22 19:29 Gram Stain - Final Sputum Sputum Culture - Final Assessment and Plan Assessment: Acute COPD exacerbation/bronchitis without any clear indication for pneumonia, empirically on Zosyn. Sputum culture reveals no growth. Pro-calcitonin 0.13. She did undergo bronchoscopy with BAL today 01/24/2022. 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 Hypothyroidism Previous history of UTIs Previous susceptibility of the right lower extremity in 1985 Previous history of a permanent pain stimulator insertion and subsequent removal Plan: The patient was seen and evaluated Stable post bronchoscopy with BAL Cleared for discharge from pulmonary standpoint Evaluated for possible home oxygen Complete prednisone taper starting at 40 mg daily for 4 days Complete a seven-day course of Augmentin Continue her home pulmonary medications Follow up in the office in 1 week I have personally seen and examined the patient, performed the documentation and the assessment and plan as written. Number of minutes spent on the visit: 10.
[2022-01-24 12:07] LABS: Potassium 4.4 mmol/L (3.5-5.1)
--- NOTE | 2022-01-24 12:14 | P.DS ---
Providers Date of admission: 01/17/22 06:13 Attending physician: Gm Richey MD Consults: 01/17/22 08:28 Consult Physician Routine Consulting Provider: Pola Stockton Consult Reason/Comments: CHF Do you want consulting provider notified?: Yes [facility] Course: Discharge Diagnosis: #Acute hypoxic respiratory failure #Acute COPD exacerbation #Acute bronchitis #Acute on chronic diastolic CHF exacerbation Chronic conditions: CAD, paroxysmal atrial fibrillation, chronic kidney disease stage III, hypertension, dyslipidemia, history of TBI, hypothyroidism Hospital Course: Patient is a 66-year-old female with a past medical history of COPD, coronary disease, CK D stage III, paroxysmal atrial fibrillation, hypertension, hyperlipidemia, hypothyroidism who presents to the emergency room with chief complaint of shortness of breath. Chest x-ray in the emergency room showed cardiomegaly with pulmonary vessel congestion. BNP was also elevated. Patient was referred for admission. Cardiology and pulmonology were following the patient. Patient was started on IV diuretics. Echocardiogram showed normal LV with moderate MR. Once her renal function started worsening she was switched over to oral diuretics. Cardiology signed off on the case. Patient was also started steroids and breathing treatments for COPD exacerbation. Patient also started on IV Zosyn for pneumonia. At the time of discharge patient reported that her breathing was improving. She had a bronchoscopy done on the day of discharge patient report is pending. She had home O2 evaluation done and she did qualify for oxygen. Patient needs home O2 for COPD. I discussed with pulmonology who said patient is stable for discha rge from their standpoint. Patient instructed to follow-up with pulmonology will follow up on her culture results from bronchoscopy. Patient will be discharged on 4 days of prednisone 40mg. Since patient requiring oxygen will discharge her on Augmentin 7 days of as recommended by pulmonology. Patient seen and examined at bedside.[] Vital signs reviewed and stable. General: [non toxic], [no distress], [appears at stated age] appears chronically debilitated Derm: [warm], [dry] Head: [atraumatic], [normocephalic], [symmetric] Eyes: [EOMI], [no lid lag], [anicteric sclera] Mouth: [no lip lesion], [mucus membranes moist] Cardiovascular: [S1S2 reg], [no murmur], [positive posterior tibial pulse bilateral], Lungs: Diminished breath sounds bilaterally, [no accessory muscle use] Abdominal: [soft], [ nontender to palpation], [no guarding], [no appreciable organomegaly] Ext: [no gross muscle atrophy], [no edema], [no contractures] Neuro: [ CN II-XI grossly intact], [no focal neuro deficits] Psych: [Alert], [oriented], [appropriate affect] A total of [33] minutes of time were spent preparing this complex discharge summary . Patient Condition at Discharge: Good Plan - Discharge Summary Discharge Rx Participant: No New Discharge Prescriptions: New guaiFENesin [Mucinex] 1,200 mg PO Q12HR #14 tab Potassium Chloride ER [K-Dur 10] 10 meq PO DAILY #30 tab Furosemide [Lasix] 20 mg PO BID@0900,1600 #60 tab Amoxic-Pot Clav 875-125Mg [Augmentin 875-125] 1 tab PO BID 1 Days #2 tab predniSONE [Deltasone] 20 mg PO DAILY #8 tab Continue Nitroglycerin Sl Tabs [Nitrostat] 0.4 mg SUBLINGUAL Q5M PRN PRN Reason: Chest Pain Apixaban [Eliquis] 5 mg PO BID Sertraline HCl [Zoloft] 100 mg PO HS Ipratropium-Albuterol Nebulize [Duoneb 0.5 mg-3 mg/3 ml Soln] 3 ml INHALATION RT-QID PRN PRN Reason: Shortness Of Breath Atorvastatin [Lipitor] 20 mg PO HS Levothyroxine Sodium [Synthroid] 75 mcg PO DAILY QUEtiapine [SEROquel] 100 mg PO HS Albuterol Inhaler [Ventolin Hfa Inhaler] 2 puff INHALATION RT-QID PRN PRN Reason: Shortness Of Breath Cholecalciferol [Vitamin D3 (25 Mcg = 1000 Iu)] 50 mcg PO DAILY allopurinoL [Zyloprim] 100 mg PO BID Metoprolol Tartrate 25 mg PO DAILY Montelukast [Singulair] 10 mg PO DAILY Omeprazole 20 mg PO DAILY Amiodarone [Cordarone] 100 mg PO DAILY Vitamin A Acetate [Vitamin A] 10,000 unit SL DAILY Cyanocobalamin [Vitamin B-12] 500 mcg PO DAILY Discontinued Torsemide [Demadex] 10 mg PO BID Discharge Medication List Nitroglycerin Sl Tabs [Nitrostat] 0.4 mg SUBLINGUAL Q5M PRN 12/29/13 [History] Apixaban [Eliquis] 5 mg PO BID 12/22/18 [History] Sertraline HCl [Zoloft] 100 mg PO HS 12/22/18 [History] Ipratropium-Albuterol Nebulize [Duoneb 0.5 mg-3 mg/3 ml Soln] 3 ml INHALATION RT-QID PRN 02/26/19 [History] Atorvastatin [Lipitor] 20 mg PO HS 03/09/19 [History] Levothyroxine Sodium [Synthroid] 75 mcg PO DAILY 06/17/19 [History] QUEtiapine [SEROquel] 100 mg PO HS 06/17/19 [History] Albuterol Inhaler [Ventolin Hfa Inhaler] 2 puff INHALATION RT-QID PRN 10/09/20 [History] Metoprolol Tartrate 25 mg PO DAILY 10/09/20 [History] Montelukast [Singulair] 10 mg PO DAILY 10/09/20 [History] Omeprazole 20 mg PO DAILY 10/09/20 [History] allopurinoL [Zyloprim] 100 mg PO BID 10/09/20 [History] Amiodarone [Cordarone] 100 mg PO DAILY 01/17/22 [History] Cholecalciferol [Vitamin D3 (25 Mcg = 1000 Iu)] 50 mcg PO DAILY 01/17/22 [History] Cyanocobalamin [Vitamin B-12] 500 mcg PO DAILY 01/17/22 [History] Vitamin A Acetate [Vitamin A] 10,000 unit SL DAILY 01/17/22 [History] Amoxic-Pot Clav 875-125Mg [Augmentin 875-125] 1 tab PO BID 1 Days #2 tab 01/24/22 [Rx] Furosemide [Lasix] 20 mg PO BID@0900,1600 #60 tab 01/24/22 [Rx] Potassium Chloride ER [K-Dur 10] 10 meq PO DAILY #30 tab 01/24/22 [Rx] guaiFENesin [Mucinex] 1,200 mg PO Q12HR #14 tab 01/24/22 [Rx] predniSONE [Deltasone] 20 mg PO DAILY #8 tab 01/24/22 [Rx] Follow up Appointment(s)/Referral(s): Santiago Briseno MD [Family Provider] - 01/27/22 10:15 am Mai Doss MD [Primary Care Provider] - 1 Week [facility], [NON-STAFF] - [facility] [NON-STAFF] - Discharge Disposition: HOME SELF-CARE
[2022-01-24 13:17] LABS: Appearance,BF BLOOD TINGED CLEAR
--- NOTE | 2022-01-25 10:22 | PCN ---
PROCEDURE NOTE PROCEDURES: Bronchoscopy and bronchial washing/BAL. PREOPERATIVE DIAGNOSES: Chronic obstructive pulmonary disease exacerbation, tracheobronchitis, difficulty clearing secretions. POSTOPERATIVE DIAGNOSES: Chronic obstructive pulmonary disease exacerbation, tracheobronchitis, difficulty clearing secretions. In addition, the patient has tracheobronchomalacia. ANESTHESIA USED: The patient was given IV conscious sedation. Please refer to ASSISTANT PROFESSOR OF HISTORY note. DESCRIPTION OF PROCEDURE: The patient was placed in the supine position, O2 was applied via nasal cannula. We monitored the O2 saturation continuously. Cardiac rhythm was continuously monitored, blood pressure was intermittently monitored. After adequate IV conscious sedation, a bite block was used, and the bronchoscope was advanced through the bite block into the area of the oropharynx. Vocal cords were visualized. Lidocaine was applied over the vocal cords, and the bronchoscope was advanced further down to the trachea. Thorough examination was done of the trachea, right upper lobe, right middle lobe, right lower lobe, left upper lobe, lingula, and left lower lobe. There was clearly evidence of tracheomalacia noted and tracheobronchomalacia was also noted. There was minimal purulent secretions noted mostly in the lower lobes especially in the right middle lobe and right lower lobe, also in the left lower lobe. These secretions were suctioned and lavaged using saline. Procedure was tolerated, no evidence of endobronchial tumors. There was minimal blood noted in the right middle lobe area and this was suctioned easily. Again, no complications. Fluid obtained was sent for different diagnostic studies. MMODL / IJN: [id number] /
== END 2022-01-24 14:01 | disposition home or self-care (01) | DRG 291 ==
LOC: EC 02:49 → 3SCARD 06:13
PROVIDERS: ADMIT Internal Medicine; ATTEND Internal Medicine
PROC: 0B9D8ZX Drainage of Right Middle Lung Lobe, Via Natural or Artificial Opening Endoscopic, Diagnostic (ICD-10-PCS; principal; 2022-01-24 08:00)
PROC: 0B9F8ZX Drainage of Right Lower Lung Lobe, Via Natural or Artificial Opening Endoscopic, Diagnostic (ICD-10-PCS; principal; 2022-01-24 08:00)
PROC: 0B9J8ZX Drainage of Left Lower Lung Lobe, Via Natural or Artificial Opening Endoscopic, Diagnostic (ICD-10-PCS; principal; 2022-01-24 08:00)
DX: I13.0 Hypertensive heart and chronic kidney disease with heart failure and stage 1 through stage 4 chronic kidney disease, or unspecified chronic kidney disease (principal); I50.43 Acute on chronic combined systolic (congestive) and diastolic (congestive) heart failure; J18.9 Pneumonia, unspecified organism; J96.01 Acute respiratory failure with hypoxia; J44.1 Chronic obstructive pulmonary disease with (acute) exacerbation; J44.0 Chronic obstructive pulmonary disease with (acute) lower respiratory infection; I25.10 Atherosclerotic heart disease of native coronary artery without angina pectoris; I48.0 Paroxysmal atrial fibrillation; J20.9 Acute bronchitis, unspecified; F41.9 Anxiety disorder, unspecified; E03.9 Hypothyroidism, unspecified; I34.0 Nonrheumatic mitral (valve) insufficiency; E78.5 Hyperlipidemia, unspecified; F31.9 Bipolar disorder, unspecified; N18.30 Chronic kidney disease, stage 3 unspecified; Z20.822 Contact with and (suspected) exposure to COVID-19; Z79.01 Long term (current) use of anticoagulants; Z79.890 Hormone replacement therapy; J39.8 Other specified diseases of upper respiratory tract; Z79.899 Other long term (current) drug therapy; Z86.14 Personal history of Methicillin resistant Staphylococcus aureus infection; Z86.718 Personal history of other venous thrombosis and embolism; Z87.440 Personal history of urinary (tract) infections; Z87.820 Personal history of traumatic brain injury; Z87.828 Personal history of other (healed) physical injury and trauma; Z87.891 Personal history of nicotine dependence; Z95.5 Presence of coronary angioplasty implant and graft; Z82.49 Family history of ischemic heart disease and other diseases of the circulatory system; Z28.310 Unvaccinated for COVID-19; Z88.0 Allergy status to penicillin; Z88.2 Allergy status to sulfonamides
CPT/HCPCS: 31624; 36415; 71045; 78582; 80048; 80053; 81003; 83605; 83735; 83880; 84100; 84145; 84484; 85025; 85027; 85379; 85610; 85730; 87070; 87077; 87102; 87116; 87186; 87205; 87206; 87252; 87496; 87498; 87502; 87529; 87634; 87635; 87798; 88108; 88305; 89050; 90662; 90732; 93005; 93306; 94640; 94660; 94667; 94760; 96374; 96376; 99285

== ENCOUNTER 2022-01-26 12:49 | Inpatient (IN) | payer MEDICARE, OTHER ==
[2022-01-26 14:39] LABS: Basophils % (A) 0 %; Eosinophils # (A) 0.1 k/uL (0-0.7); Eosinophils % (A) 0 %; HCT 36.8 % (34.0-46.0); Lymphocytes # (A) 0.5 k/uL (1.0-4.8); Lymphocytes % (A) 2 %; MCH 32.5 pg (25.0-35.0); MCHC 32.7 g/dL (31.0-37.0); MCV 99.4 fL (80.0-100.0); Macrocytosis Slight; Mean Platelet Volume 8.9; Monocytes # (A) 0.5 k/uL (0-1.0); Monocytes % (A) 2 %; Neutrophils % (A) 95 %; Platelet Count 218 k/uL (150-450); RDW 14.8 % (11.5-15.5); WBC 24.2 k/uL (3.8-10.6)
[2022-01-26 14:47] LABS: Albumin 3.8 g/dL (3.5-5.0); Calcium 8.4 mg/dL (8.4-10.2); Potassium 4.2 mmol/L (3.5-5.1); Total Bilirubin 0.8 mg/dL (0.2-1.3); Total Protein 6.8 g/dL (6.3-8.2)
--- NOTE | 2022-01-26 14:47 | XR ---
EXAMINATION TYPE: XR chest 2V DATE OF EXAM: 01/26/2022 2:40 PM COMPARISON: 01/22/2022 TECHNIQUE: XR chest 2V Frontal and lateral views of the chest. CLINICAL INDICATION:Female, 66 years old with history of difficulty breathing; FINDINGS: Lungs/Pleura: Hazy opacities within the lung bases. There is a positive spine sign opacity projecting over the spine on lateral view. There is no evidence of pleural effusion, focal consolidation, or pn eumothorax. Pulmonary vascularity: Pulmonary vascular congestion. Heart/mediastinum: Cardiomediastinal silhouette is enlarged and stable. Musculoskeletal: No acute osseous pathology. IMPRESSION: Multifocal airspace opacities correlate for pneumonia, consider correlation with serum BNP to rule ou t underlying congestive heart failure changes given cardiomegaly and pulmonary vascular congestion.
[2022-01-26 15:02] LABS: Partial Thromboplastin Time 24.9 sec (22.0-30.0); Prothrombin Time 10.6 sec (9.0-12.0)
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
[2022-01-26] MEDS ORDERED: ALBUTEROL NEBULIZED 2.5 MG/3 ML INHALATION PRN (16:03)
[2022-01-26] MEDS ORDERED: AZITHROMYCIN 500 MG in SODIUM CHLORIDE 0.9% 250 ML IVPB STA (16:03)
[2022-01-26] MEDS ORDERED: PNEUMONIA PROTOCOL UTILIZED 1 EACH MISC PO PRN (16:03)
[2022-01-26] MEDS ORDERED: PIPERACILLIN-TAZOBACTAM 3.375 GM in SODIUM CHLORIDE 0.9% 100 ML IVPB STA (16:03)
[2022-01-26] MEDS ORDERED: IPRATROPIUM-ALBUTEROL 3 ML NEB INHALATION STA (16:05)
[2022-01-26] MEDS ORDERED: FUROSEMIDE 10 MG/ML 4 ML VIAL IV STA (16:27)
[2022-01-26] MEDS ORDERED: PANTOPRAZOLE 40 MG/10 ML VIAL IVP SCH (17:00)
[2022-01-26] MEDS ORDERED: ALBUTEROL HFA INHALER INHALATION PRN (17:08)
[2022-01-26] MEDS ORDERED: IPRATROPIUM-ALBUTEROL 3 ML NEB INHALATION PRN (17:08)
[2022-01-26] MEDS ORDERED: methylPREDNISolone SOD SUCCI 125 MG/2 ML VIAL IV SCH (17:15)
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
[2022-01-26] MEDS ORDERED: ALPRAZolam 0.25 MG TAB PO STA (20:23)
[2022-01-26] MEDS: FUROSEMIDE 10 MG/ML 4 ML VIAL IV SCH (20:29)
[2022-01-26] MEDS: ACETAMINOPHEN TAB 325 MG TAB PO PRN (20:59)
[2022-01-26] MEDS: SERTRALINE 100 MG TAB PO SCH (20:59)
[2022-01-26] MEDS: guaiFENesin 600 MG TABLET.ER PO SCH (21:00)
[2022-01-26] MEDS: QUEtiapine 100 MG TAB PO SCH (21:01)
[2022-01-26] MEDS: ATORVASTATIN 20 MG TAB PO SCH (21:01)
[2022-01-26] MEDS: allopurinoL 100 MG TAB PO SCH (21:01)
[2022-01-26] MEDS: APIXABAN 5 MG TAB PO SCH (21:01)
[2022-01-27 00:39] LABS: HCT 29.1 % (34.0-46.0); MCH 33.2 pg (25.0-35.0); MCHC 33.5 g/dL (31.0-37.0); Mean Platelet Volume 8.6; Platelet Count 160 k/uL (150-450); RBC 2.94 m/uL (3.80-5.40); RDW 14.8 % (11.5-15.5); WBC 14.4 k/uL (3.8-10.6)
[2022-01-27 00:54] LABS: HGB 9.8 gm/dL (11.4-16.0)
[2022-01-27] MEDS: PIPERACILLIN-TAZOBACTAM 3.375 GM in SODIUM CHLORIDE 0.9% 100 ML IVPB SCH ×3 (03:53→23:47)
[2022-01-27] MEDS: LEVOTHYROXINE 75 MCG TAB PO SCH (06:20)
--- NOTE | 2022-01-27 07:02 | XR ---
EXAMINATION TYPE: XR chest 1V DATE OF EXAM: 01/27/2022 6:17 AM COMPARISON: Chest radiographs from 01/26/2022. TECHNIQUE: XR chest 1V Frontal view of the chest. CLINICAL INDICATION:Female, 66 years old with history of pneumonia; FINDINGS: Lungs/Pleura: Blunting of both costophrenic angles consistent with small bilateral pleural effusions. Hazy opacities redemonstrated within lung bases. Pulmonary vascularity: Pulmonary vascular congestion is increased. Heart/mediastinum: Cardiomediastinal silhouette is enlarged and stable. Musculoskeletal: No acute osseous pathology. IMPRESSION: Cardiomegaly with small bilateral pleural effusions and increased pulmonary vascular congestion. Find ings suggest CHF exacerbation with superimposed pneumonia not excluded.
[2022-01-27] MEDS: IPRATROPIUM-ALBUTEROL 3 ML NEB INHALATION PRN ×4 (07:12→19:19)
[2022-01-27] MEDS: CHOLECALCIFEROL 25 MCG (1000 IU) TABLET PO SCH (08:30)
[2022-01-27] MEDS: METOPROLOL TARTRATE 25 MG TAB PO SCH (08:31)
[2022-01-27] MEDS: guaiFENesin 600 MG TABLET.ER PO SCH ×2 (08:31→20:55)
[2022-01-27] MEDS: APIXABAN 5 MG TAB PO SCH ×2 (08:31→20:55)
[2022-01-27] MEDS: MONTELUKAST 10 MG TAB PO SCH (08:31)
[2022-01-27] MEDS: allopurinoL 100 MG TAB PO SCH ×2 (08:31→20:57)
[2022-01-27] MEDS: VITAMIN A 10,000 UNIT (3000 MCG) CAPSULE PO SCH (08:31)
[2022-01-27] MEDS: PANTOPRAZOLE 40 MG TABLET PO SCH (08:32)
[2022-01-27] MEDS: CYANOCOBALAMIN 500 MCG TAB PO SCH (08:32)
[2022-01-27] MEDS: AMIODARONE 100 MG TAB PO SCH (08:32)
[2022-01-27] MEDS: FUROSEMIDE 10 MG/ML 4 ML VIAL IV SCH ×2 (08:48→20:56)
[2022-01-27] MEDS ORDERED: AZITHROMYCIN 500 MG in SODIUM CHLORIDE 0.9% 250 ML IVPB SCH (09:00)
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
[2022-01-27 10:45] LABS: Basophils % (A) 0 %; Eosinophils # (A) 0.3 k/uL (0-0.7); Eosinophils % (A) 2 %; HCT 32.1 % (34.0-46.0); HGB 10.2 gm/dL (11.4-16.0); Lymphocytes # (A) 1.2 k/uL (1.0-4.8); Lymphocytes % (A) 10 %; MCH 32.1 pg (25.0-35.0); MCHC 31.9 g/dL (31.0-37.0); MCV 100.6 fL (80.0-100.0); Macrocytosis Slight; Mean Platelet Volume 9.1; Monocytes # (A) 0.3 k/uL (0-1.0); Monocytes % (A) 3 %; Neutrophils # (A) 10.1 k/uL (1.3-7.7); Neutrophils % (A) 84 %; Platelet Count 153 k/uL (150-450); RBC 3.19 m/uL (3.80-5.40); RDW 15.1 % (11.5-15.5)
[2022-01-27 10:46] LABS: Calcium 7.8 mg/dL (8.4-10.2); Magnesium 2.3 mg/dL (1.6-2.3); Potassium 3.4 mmol/L (3.5-5.1)
--- NOTE | 2022-01-27 11:19 | US ---
EXAMINATION TYPE: US kidneys/renal and bladder DATE OF EXAM: 01/27/2022 COMPARISON: Abdominal ultrasound 05/17/2020, CT abdomen pelvis 02/28/2020. CLINICAL HISTORY: nick. Stage 4 CKD EXAM MEASUREMENTS: Right Kidney: 7.0 x 2.8 x 3.9 cm Left Kidney: not seen Right Kidney: atrophic with decreased corticomedullary differentiation . No hydronephrosis. No shadow ing calculi. Left Kidney: obscured by bowel gas and or atrophy Bladder: wnl IMPRESSION: 1. Findings of medical renal disease involving the right kidney with atrophic appearance. 2. Nonvisualization of the left kidney which may be due to atrophy and/or bowel gas.
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
--- NOTE | 2022-01-27 15:31 | P.PN ---
Subjective Progress Note Date: 01/27/22 Patient is a 66-year-old female with a past medical history of COPD, coronary artery disease, CK D stage III, paroxysmal atrial fibrillation, hypertension, hyperlipidemia, hypothyroidism who presents to the ED with shortness of breath. Patient was just discharged 2 days ago. On previous admission she was treated for pneumonia with IV Zosyn and was discharged on Augmentin for 7 days. She had a bronchoscopy done that grew Klebsiella pneumonia that is susceptible to Zosyn as well as Augmentin. Patient was seen and examined. No acute events overnight. Patient reports continued shortness of breath that has not improved much since her discharge. She reports wet cough and inability to bring up sputum. Currently on 3 L nasal cannula. General: Alert and oriented, well nourished, no acute distress, patient appears chronically debilitated. Eye: EOMI, normal conjunctiva. HENT: Normocephalic, normal hearing, moist oral mucosa, no scleral icterus, no sinus tenderness. Neck: Supple, non-tender, no carotid bruits, no JVD, no lymphadenopathy. Lungs: Diffuse rhonchi, non-labored respiration. Heart: Normal rate, regular rhythm, no murmur, gallop or edema. Musculoskeletal: Normal range of motion and strength, no tenderness or swelling. Skin: Skin is warm, dry and pink, no rashes or lesions. Neurologic: Awake, alert, and oriented X3. Psychiatric: Cooperative, appropriate mood and affect. #Multifocal pneumonia with sepsis #Acute hypoxic respiraotry failure #Acute on chronic diastolic heart failure -Patient meets sepsis criteria with leukocytosis, tachypnea and positive source of infection. -Cultures from bronchoscopy on previous admission grew Klebsiella pneumonia. -Procalcitonin elevated. -Resume IV Zosyn. -Consult pulmonology. -Follow up on blood and sputum cultures done on this admission. -Start Lasix 40 mg IV BID along with strict intake and outtake and daily weights. -Mucinex. #COPD on 2 L nasal cannula at home Resume Singulair. Patient recently completed her steroid course. Patient currently has no wheezing. DuoNeb as needed. #Normocytic anemia - reports dark stools and nosebleed. -Hemoglobin is stable so okay to resume Eliquis. -Trend CBC. #Atrial fibrillation Resume amiodarone and Eliquis and metoprolol. #CKD stage III Renal US shows no hydronephrosis. Patient creatinine at baseline. Monitor creatinine closely while on diuretics. #Chronic back pain Tylenol and [place] PRN for severe pain. Chronic conditions Gout, hyperlipidemia, GERD, hypothyroidism Resume home meds. CODE STATUS: FULL CODE DVT prophylaxis: Eliquis Objective - Vital Signs Vital signs: Vital Signs Temp 98.0 F 01/26/22 19:29 Pulse 78 01/27/22 11:57 Resp 18 01/27/22 11:57 BP 97/65 01/27/22 11:57 Pulse Ox 95 01/27/22 11:57 FiO2 Intake & Output 01/26/22 01/27/22 01/27/22 18:59 06:59 18:59 Output Total 500 Balance -500 Weight 83.461 kg Output: Urine 500 - Labs CBC & Chem 7: 01/27/22 09:52 01/27/22 09:52 Labs: Abnormal Lab Results - Last 24 Hours (Table) 01/26/22 01/26/22 01/27/22 Range/Units 13:49 13:49 00:23 WBC 14.4 H (3.8-10.6) k/uL RBC 2.94 L (3.80-5.40) m/uL Hgb 9.8 L D (11.4-16.0) gm/dL Hct 29.1 L (34.0-46.0) % MCV (80.0-100.0) fL Neutrophils # (1.3-7.7) k/uL D-Dimer 1.41 H (<0.60) mg/L FEU Potassium (3.5-5.1) mmol/L BUN (7-17) mg/dL Creatinine (0.52-1.04) mg/dL Glucose (74-99) mg/dL Calcium (8.4-10.2) mg/dL Magnesium 2.4 H (1.6-2.3) mg/dL Procalcitonin (0.02-0.09) ng/mL 01/27/22 01/27/22 01/27/22 Range/Units 09:52 09:52 09:52 WBC 12.0 H (3.8-10.6) k/uL RBC 3.19 L (3.80-5.40) m/uL Hgb 10.2 L (11.4-16.0) gm/dL Hct 32.1 L (34.0-46.0) % MCV 100.6 H (80.0-100.0) fL Neutrophils # 10.1 H (1.3-7.7) k/uL D-Dimer (<0.60) mg/L FEU Potassium 3.4 L (3.5-5.1) mmol/L BUN 66 H (7-17) mg/dL Creatinine 2.34 H (0.52-1.04) mg/dL Glucose 162 H (74-99) mg/dL Calcium 7.8 L (8.4-10.2) mg/dL Magnesium (1.6-2.3) mg/dL Procalcitonin 0.33 H (0.02-0.09) ng/mL Microbiology - Last 24 Hours (Table) 01/26/22 17:05 Blood Culture Gram Stain - Preliminary Blood 01/26/22 17:05 Blood Culture - Final Blood 01/26/22 21:46 Gram Stain - Preliminary Sputum Sputum Culture - Preliminary
[2022-01-27] MEDS: HYDROcodone/APAP 5-325MG 1 EACH TAB PO PRN ×2 (16:42→20:56)
[2022-01-27] MEDS ORDERED: POTASSIUM CHLORIDE ER 20 MEQ TAB.ER PO STA (17:38)
[2022-01-27] MEDS: SERTRALINE 100 MG TAB PO SCH (20:56)
[2022-01-27] MEDS: ATORVASTATIN 20 MG TAB PO SCH (20:56)
[2022-01-27 21:03] LABS: % Iron Saturation 6.21 (12.00-45.00)
[2022-01-27] MEDS ORDERED: ALPRAZolam 0.25 MG TAB PO STA (21:08)
[2022-01-27] MEDS: QUEtiapine 100 MG TAB PO SCH (22:17)
[2022-01-28] MEDS ORDERED: NITROGLYCERIN SL TABS 0.4 MG TAB SUBLINGUAL ONE (02:59)
[2022-01-28 04:40] LABS: Calcium 8.1 mg/dL (8.4-10.2); Magnesium 2.1 mg/dL (1.6-2.3); Potassium 3.7 mmol/L (3.5-5.1)
[2022-01-28] MEDS: LEVOTHYROXINE 75 MCG TAB PO SCH (06:06)
--- NOTE | 2022-01-28 06:16 | XR ---
EXAMINATION TYPE: XR chest 1V portable DATE OF EXAM: 01/28/2022 COMPARISON: Yesterday HISTORY: Short of breath TECHNIQUE: Single view FINDINGS: Heart is enlarged. There is mild pulmonary congestion. There is some pulmonary interstitial edema. There are chest leads . Bony thorax is intact. IMPRESSION: There is pulmonary fibrosis and likely some mild heart failure. There is improvement in t he pulmonary congestion compared to yesterday.
[2022-01-28] MEDS: IPRATROPIUM-ALBUTEROL 3 ML NEB INHALATION PRN ×2 (08:32→11:42)
[2022-01-28] MEDS: AMIODARONE 100 MG TAB PO SCH (08:33)
[2022-01-28] MEDS: guaiFENesin 600 MG TABLET.ER PO SCH ×2 (08:33→21:26)
[2022-01-28] MEDS: APIXABAN 5 MG TAB PO SCH ×2 (08:33→21:26)
[2022-01-28] MEDS: ACETAMINOPHEN TAB 325 MG TAB PO PRN (08:33)
[2022-01-28] MEDS: VITAMIN A 10,000 UNIT (3000 MCG) CAPSULE PO SCH (08:33)
[2022-01-28] MEDS: MONTELUKAST 10 MG TAB PO SCH (08:34)
[2022-01-28] MEDS: PANTOPRAZOLE 40 MG TABLET PO SCH (08:34)
[2022-01-28] MEDS: CHOLECALCIFEROL 25 MCG (1000 IU) TABLET PO SCH (08:34)
[2022-01-28] MEDS: METOPROLOL TARTRATE 25 MG TAB PO SCH (08:34)
[2022-01-28] MEDS: allopurinoL 100 MG TAB PO SCH ×2 (08:34→21:26)
[2022-01-28] MEDS: CYANOCOBALAMIN 500 MCG TAB PO SCH (08:34)
[2022-01-28] MEDS: FUROSEMIDE 10 MG/ML 4 ML VIAL IV SCH ×2 (08:34→21:26)
[2022-01-28] MEDS ORDERED: POTASSIUM CHLORIDE ER 20 MEQ TAB.ER PO STA (11:21)
--- NOTE | 2022-01-28 11:22 | P.PN ---
Subjective Patient is seen in follow-up for acute kidney injury on chronic kidney disease. Renal function fairly stable. Nonoliguric. Denies chest pain. Dyspnea improved. On nasal cannula. Oral intake fair. Vital signs are stable. General: Awake. No acute distress. HEENT: Head exam is unremarkable. On nasal cannula. LUNGS: Breath sounds decreased. HEART: Rate and Rhythm are regular. ABDOMEN: Soft, no distention. EXTREMITITES: No edema. Objective - Vital Signs Vital signs: Vital Signs Temp 97.6 F 01/28/22 03:00 Pulse 76 01/28/22 08:47 Resp 16 01/28/22 03:57 BP 97/64 01/28/22 03:57 Pulse Ox 95 01/28/22 08:03 FiO2 Intake & Output 01/27/22 01/28/22 01/28/22 18:59 06:59 18:59 Intake Total 240 Output Total 1550 900 Balance 240 -1550 -900 Intake: Oral 240 Output: Urine 1550 900 - Labs CBC & Chem 7: 01/27/22 09:52 01/28/22 04:05 Labs: Abnormal Lab Results - Last 24 Hours (Table) 01/27/22 01/27/22 01/28/22 Range/Units 09:52 09:52 04:05 BUN 64 H (7-17) mg/dL Creatinine 2.49 H (0.52-1.04) mg/dL Glucose 116 H (74-99) mg/dL Calcium 8.1 L (8.4-10.2) mg/dL Iron 18 L (50-170) ug/dL % Saturation 6.21 L (12.00-45.00) Ferritin 491.0 H (10.0-291.0) ng/mL Procalcitonin 0.33 H (0.02-0.09) ng/mL Microbiology - Last 24 Hours (Table) 01/26/22 17:05 Blood Culture Gram Stain - Final Blood Blood Culture - Final Staphylococcus epidermidis 01/26/22 17:20 Blood Culture - Preliminary Blood No Growth after 24 hours 01/26/22 17:05 Blood Culture - Final Blood 01/26/22 21:46 Gram Stain - Preliminary Sputum Sputum Culture - Preliminary Assessment and Plan Plan: Assessment: 1. Acute kidney injury secondary to ATN secondary to cardiorenal syndrome. Creatinine 2.24 on admission - 2.49 today. No hydronephrosis noted on kidney ultrasound. Right kidney atrophic. Left kidney not properly visualized. 2. Chronic kidney disease stage IV with baseline creatinine in the range of 1.5-2 secondary to nephrosclerosis. 3. Acute on chronic diastolic CHF with moderate mitral regurgitation. 4. Coronary artery disease with prior stenting. 5. History of A. fib. 6. Anemia of chronic kidney disease. Iron deficiency noted. 7. Pneumonia on antibiotics. White count trending down. Pulmonology following. 8. Staph epi bacteremia. 9. Hypokalemia from diuresis. Replace. Better. Plan: Maintain IV Lasix. Chest x-ray shows improved volume status. Encouraged oral intake. Follow-up UA. Avoid nephrotoxins. Continue to monitor renal function and urine output. Hold off on IV iron due to infection and bacteremia at this time.
[2022-01-28] MEDS: IPRATROPIUM-ALBUTEROL 3 ML NEB INHALATION SCH ×3 (11:59→19:19)
--- NOTE | 2022-01-28 12:04 | P.PN ---
Subjective Progress Note Date: 01/28/22 Patient is a 66-year-old female with a past medical history of COPD, coronary artery disease, CK D stage III, paroxysmal atrial fibrillation, hypertension, hyperlipidemia, hypothyroidism who presents to the ED with shortness of breath. Patient was just discharged 2 days ago. On previous admission she was treated for pneumonia with IV Zosyn and was discharged on Augmentin for 7 days. She had a bronchoscopy done that grew Klebsiella pneumonia that is susceptible to Zosyn as well as Augmentin. Patient was started on Zosyn and admitted for treatment of pneumonia. She was also started on Lasix 40 mg IV BID. Pulmonology was consulted. She did have one set of blood cultures that was positive for S. ep idermidis. Patient was seen and examined. No acute events overnight. Patient reports slight improvement in her shortness of breath. CXR appears improved. Currently on 5 L nasal cannula. General: Alert and oriented, well nourished, no acute distress, patient appears chronically debilitated. Eye: EOMI, normal conjunctiva. HENT: Normocephalic, normal hearing, moist oral mucosa, no scleral icterus, no sinus tenderness. Neck: Supple, non-tender, no carotid bruits, no JVD, no lymphadenopathy. Lungs: Diffuse rhonchi, non-labored respiration. Heart: Normal rate, regular rhythm, no murmur, gallop or edema. Musculoskeletal: Normal range of motion and strength, no tenderness or swelling. Skin: Skin is warm, dry and pink, no rashes or lesions. Neurologic: Awake, alert, and oriented X3. Psychiatric: Cooperative, appropriate mood and affect. #Multifocal pneumonia with sepsis #Acute hypoxic respiraotry failure #Acute on chronic diastolic heart failure Patient meets sepsis criteria with leukocytosis, tachypnea and positive source of infection. Cultures from bronchoscopy on previous admission grew Klebsiella pneumonia. Procalcitonin elevated. Resume IV Zosyn. Consult pulmonology. Follow up on blood and sputum cultures done on this admission. Continue Lasix 40 mg IV BID along with strict intake and outtake and daily weights. Mucinex. #Gram + bacteremia Likely contaminant. Repeat blood cultures ordered. #COPD on 2 L nasal cannula at home Resume Singulair. Patient recently completed her steroid course. Patient currently has no wheezing. DuoNeb as needed. #Normocytic anemia reports dark stools and nosebleed. Stool of occult blood negative. Hemoglobin is stable so okay to resume Eliquis. Trend CBC. #Atrial fibrillation Resume amiodarone and Eliquis and metoprolol. #CKD stage III Renal US shows no hydronephrosis. Patient creatinine at baseline. Monitor creatinine closely while on diuretics. Nephrology on board. #Chronic back pain Tylenol and [place] PRN for severe pain. Add Flexeril PRN. Chronic conditions Gout, hyperlipidemia, GERD, hypothyroidism Resume home meds. CODE STATUS: FULL CODE DVT prophylaxis: Eliquis Objective - Vital Signs Vital signs: Vital Signs Temp 97.6 F 01/28/22 03:00 Pulse 72 01/28/22 11:57 Resp 16 01/28/22 08:20 BP 97/64 01/28/22 03:57 Pulse Ox 95 01/28/22 08:03 FiO2 Intake & Output 01/27/22 01/28/22 01/28/22 18:59 06:59 18:59 Intake Total 240 Output Total 1550 900 Balance 240 -1550 -900 Intake: Oral 240 Output: Urine 1550 900 Other: Voiding Method External Catheter - Labs CBC & Chem 7: 01/27/22 09:52 01/28/22 04:05 Labs: Abnormal Lab Results - Last 24 Hours (Table) 01/27/22 01/27/22 01/28/22 Range/Units 09:52 09:52 04:05 BUN 64 H (7-17) mg/dL Creatinine 2.49 H (0.52-1.04) mg/dL Glucose 116 H (74-99) mg/dL Calcium 8.1 L (8.4-10.2) mg/dL Iron 18 L (50-170) ug/dL % Saturation 6.21 L (12.00-45.00) Ferritin 491.0 H (10.0-291.0) ng/mL Procalcitonin 0.33 H (0.02-0.09) ng/mL Microbiology - Last 24 Hours (Table) 01/26/22 17:05 Blood Culture Gram Stain - Final Blood Blood Culture - Final Staphylococcus epidermidis 01/26/22 17:20 Blood Culture - Preliminary Blood No Growth after 24 hours 01/26/22 17:05 Blood Culture - Final Blood 01/26/22 21:46 Gram Stain - Preliminary Sputum Sputum Culture - Preliminary
[2022-01-28] MEDS: PIPERACILLIN-TAZOBACTAM 3.375 GM in SODIUM CHLORIDE 0.9% 100 ML IVPB SCH (12:21)
[2022-01-28] MEDS: CYCLOBENZAPRINE 5 MG TAB PO PRN (12:21)
--- NOTE | 2022-01-28 14:05 | P.PN ---
Subjective This is a 66 year old female with a past medical history of coronary artery disease s/p PCI to mid RCA 2012, PCI mid to distal RCA 2015, paroxysmal atrial fibrillation on Eliquis, hypertension, dyslipidemia, aortic and mitral regurgitation, chronic kidney disease, peripheral vascular disease, former tobacco use, closed head injury 15 years ago and has short term memory loss. She follows with Dr. Stockton. We are consulted for congestive heart failure. Patient recently admitted to the hospital 01/17-01/24 with shortness of breath, diagnosed with Acute COPD exacerbation/bronchitis and Acute congestive heart failure. She underwent bronchoscopy with BAL which was positive for Klebsiella pneumoniae and Inga albicans. She was discharged with Augmentin and prednisone taper. Echo 01/17/22 revealed EF 55%, moderate mitral regurgitation, mild aortic regurgitation. Patient presents to the ER complaining of fatigue, chills, subjective fever, pro ductive cough for clear to yellow sputum per ER note. Secondary to patient's closed head injury she is unsure of her symptoms at home. In the ER she complains of generalized aches and fatigue and shortness of breath. Denies any orthopnea or PND. She denies any chest pain, palpitations, lightheadedness or dizziness. 01/28/2022 Patient seen and examined at bedside, no acute distress. Her shortness of breath has improved, but back to baseline. She did have an episode of chest discomfort yesterday speaking with staff concern for anxiety, she was given nitro, repeat EKG with no evidence of acute ischemia and troponin negative. Patient states her chest pain resolved on its own. Shortness of breath has significantly improved. Her chest x-ray shows improvement as well. Blood pressure 97/64, heart rate 84, afebrile, oxygen saturations 96% on 5 L nasal cannula. She continues to be on IV Lasix with 1.5 L urine output over the past 24 hours. Currently also on IV Zosyn. Labs: Sodium 137, potassium 3.7, BUN 64, serum crit 2.49 PHYSICAL EXAMINATION Vitals reviewed CONSTITUTIONAL: No apparent distress. HEENT: Head is normocephalic. Mucous membranes of the mouth are moist. No JVD. CHEST EXAMINATION: Lungs are crackes bilaterally to auscultation. No chest wall tenderness is noted on palpation or with deep breathing. HEART EXAMINATION: Regular rate and rhythm. S1, S2 heard. Systolic ejection murmur ABDOMEN: Soft, nontender. Positive bowel sounds. EXTREMITIES: 2+ peripheral pulses, no lower extremity edema and no calf tenderness. NEUROLOGIC EXAMINATION: Patient is awake, alert and oriented x3. ASSESSMENT Shortness of breath Fatigue, chills, cough, subjective fever Leukocytosis Acute on chronic heart failure with preserved ejection fraction Pneumonia Recent bronchoscopy with BAL which was positive for Klebsiella pneumoniae and Inga albicans Coronary artery disease s/p PCI to mid RCA 2012, PCI mid to distal RCA 2015 Paroxysmal atrial fibrillation on Eliquis Hypertension Dyslipidemia Mild aortic and moderate mitral regurgitation Chronic kidney disease Peripheral vascular disease COPD Former tobacco use History of closed head injury 15 years ago and has short term memory loss PLAN IV Lasix 40mg BID Monitor I/Os daily weights, renal function and electrolytes Continue Eliquis, statin, beta lucinda Further recommendations based on clinical course Nurse practitioner note has been reviewed by physician. Signing provider agrees with the documented findings, assessment, and plan of care. Objective - Vital Signs Vital signs: Vital Signs Temp 97.6 F 01/28/22 03:00 Pulse 76 01/28/22 08:47 Resp 16 01/28/22 03:57 BP 97/64 01/28/22 03:57 Pulse Ox 95 01/28/22 08:03 FiO2 Intake & Output 01/27/22 01/28/22 01/28/22 18:59 06:59 18:59 Intake Total 240 Output Total 1550 900 Balance 240 -1550 -900 Intake: Oral 240 Output: Urine 1550 900 - Labs CBC & Chem 7: 01/27/22 09:52 01/28/22 04:05 Labs: Abnormal Lab Results - Last 24 Hours (Table) 01/27/22 01/27/22 01/27/22 Range/Units 09:52 09:52 09:52 WBC 12.0 H (3.8-10.6) k/uL RBC 3.19 L (3.80-5.40) m/uL Hgb 10.2 L (11.4-16.0) gm/dL Hct 32.1 L (34.0-46.0) % MCV 100.6 H (80.0-100.0) fL Neutrophils # 10.1 H (1.3-7.7) k/uL Potassium 3.4 L (3.5-5.1) mmol/L BUN 66 H (7-17) mg/dL Creatinine 2.34 H (0.52-1.04) mg/dL Glucose 162 H (74-99) mg/dL Calcium 7.8 L (8.4-10.2) mg/dL Iron (50-170) ug/dL % Saturation (12.00-45.00) Ferritin (10.0-291.0) ng/mL Procalcitonin 0.33 H (0.02-0.09) ng/mL 01/27/22 01/28/22 Range/Units 09:52 04:05 WBC (3.8-10.6) k/uL RBC (3.80-5.40) m/uL Hgb (11.4-16.0) gm/dL Hct (34.0-46.0) % MCV (80.0-100.0) fL Neutrophils # (1.3-7.7) k/uL Potassium (3.5-5.1) mmol/L BUN 64 H (7-17) mg/dL Creatinine 2.49 H (0.52-1.04) mg/dL Glucose 116 H (74-99) mg/dL Calcium 8.1 L (8.4-10.2) mg/dL Iron 18 L (50-170) ug/dL % Saturation 6.21 L (12.00-45.00) Ferritin 491.0 H (10.0-291.0) ng/mL Procalcitonin (0.02-0.09) ng/mL Microbiology - Last 24 Hours (Table) 01/26/22 17:05 Blood Culture Gram Stain - Preliminary Blood Blood Culture - Preliminary Staphylococcus epidermidis 01/26/22 17:20 Blood Culture - Preliminary Blood No Growth after 24 hours 01/26/22 17:05 Blood Culture - Final Blood 01/26/22 21:46 Gram Stain - Preliminary Sputum Sputum Culture - Preliminary
[2022-01-28] MEDS: HYDROcodone/APAP 5-325MG 1 EACH TAB PO PRN (14:51)
--- NOTE | 2022-01-28 15:06 | P.PN ---
Subjective Progress Note Date: 01/28/22 This is a pleasant 66-year-old female patient, presents to the hospital because of worsening shortness of breath. No chest pain. She is known to have COPD. She isn't a smoker. She also has coronary artery disease and chronic stage III kidney disease and history of paroxysmal fibrillation and currently her rhythm is sinus. She has hypertension, hyperlipidemia, hypothyroidism. She has also a history of closed head injury. She was admitted here 01/17 through 01/24/2022 for a CHF exacerbation along with suspected bronchitis/pneumonia. She had undergone bronchoscopy with BAL on 01/24/2022 that showed evidence of Klebsiella pneumoniae and Inga. She had been discharged home on Augmentin, prednisone taper, oral diuretics. She is anticoagulated with Eliquis. He again presented to the emergency room on 01/26/2022 with complaints of worsening shortness of breath. Chest x-ray shows multifocal airspace opacities with underlying congestive heart failure and cardiomegaly. White count 12.0. Hemoglobin 10.2. Sodium 140. Potassium 3.4. BUN 66. Creatinine 2.34. Glucose 162. Butler virus by PCR negative. ProBNP 10,500. She is currently on IV diuretics. Procalcitonin pending. She is seen today in consultation in the emergency department. Currently sitting up on the stretcher. Awake and alert in no acute distress. Continue O2 saturations in the mid 90s on 3 L/m per nasal cannula. Afebrile. Currently in sinus rhythm. The patient is seen today 01/28/2022 in follow-up on the selective care unit. She is currently sitting up in bed. Awake and alert in no acute distress. Her is at the bedside. She is maintaining good O2 saturations in the 90s on 4 L/m per nasal cannula. She's afebrile. Hemodynamically stable. Follow-up chest x-ray reveals evidence of pulmonary fibrosis and some mild congestive heart failure. Improved pulmonary congestion compared to previous. Initial blood culture positive for Staphylococcus epidermidis. Follow-up blood cultures reveal no growth. Sputum culture pending. Sodium 137. Potassium 3.7. BUN 64. Creatinine 2.49. Glucose 116. Pro-calcitonin 0.33. Troponin negative 1. Objective - Vital Signs Vital signs: Vital Signs Temp 98.2 F 01/28/22 12:10 Pulse 78 01/28/22 12:10 Resp 16 01/28/22 12:10 BP 106/74 01/28/22 12:10 Pulse Ox 93 L 01/28/22 12:10 FiO2 Intake & Output 01/27/22 01/28/22 01/28/22 18:59 06:59 18:59 Intake Total 240 Output Total 1550 1100 Balance 240 -1550 -1100 Intake: Oral 240 Output: Urine 1550 1100 Other: Voiding Method External Catheter - Exam GENERAL EXAM: Alert, pleasant 66-year-old female, on 4 L nasal cannula, comfortable in no apparent distress. HEAD: Normocephalic. EYES: Normal reaction of pupils, equal size. NOSE: Clear with pink turbinates. THROAT: No erythema or exudates. NECK: No masses, no JVD. CHEST: No chest wall deformity. LUNGS: Equal air entry with crackles in the bilateral bases. CVS: S1 and S2 normal with no audible murmur, regular rhythm. ABDOMEN: No hepatosplenomegaly, normal bowel sounds, no guarding or rigidity. SPINE: No scoliosis or deformity SKIN: No rashes CENTRAL NERVOUS SYSTEM: No focal deficits, tone is normal in all 4 extremities. EXTREMITIES: There is trace peripheral edema. No clubbing, no cyanosis. Peripheral pulses are intact. - Labs CBC & Chem 7: 01/27/22 09:52 01/28/22 04:05 Labs: Abnormal Lab Results - Last 24 Hours (Table) 01/27/22 01/27/22 01/28/22 Range/Units 09:52 09:52 04:05 BUN 64 H (7-17) mg/dL Creatinine 2.49 H (0.52-1.04) mg/dL Glucose 116 H (74-99) mg/dL Calcium 8.1 L (8.4-10.2) mg/dL Iron 18 L (50-170) ug/dL % Saturation 6.21 L (12.00-45.00) Ferritin 491.0 H (10.0-291.0) ng/mL Procalcitonin 0.33 H (0.02-0.09) ng/mL Microbiology - Last 24 Hours (Table) 01/26/22 17:05 Blood Culture Gram Stain - Final Blood Blood Culture - Final Staphylococcus epidermidis 01/26/22 17:20 Blood Culture - Preliminary Blood No Growth after 24 hours 01/26/22 17:05 Blood Culture - Final Blood Assessment and Plan Assessment: Acute exacerbation of chronic diastolic congestive heart failure Acute on chronic hypoxemic respiratory failure secondary to above along with recent Klebsiella pneumoniae on bronchial wash from 01/24/2022. Procalcitonin 0.33 Acute on chronic renal failure. Current creatinine 2.49. GFR 19 Coronary artery disease with previous cardiac catheterization and coronary stenting History of atrial fibrillation current cardiac rhythm is sinus, anticoagulated with Eliquis Chronic stage III kidney disease Hypertension Hyperlipidemia History of closed head injury with ongoing memory deficits Hypothyroidism Previous history of UTIs Previous susceptibility of the right lower extremity in 1985 Previous history of a permanent pain stimulator insertion and subsequent removal Plan: The patient was seen and evaluated Chest x-ray, labs and medications reviewed Continue Zosyn Continue bronchodilator Continue IV diuretics Anticoagulated with Eliquis We will continue to follow I have personally seen and examined the patient, performed the documentation and the assessment and plan as written. Number of minutes spent on the visit: 10.
[2022-01-28 19:25] LABS: Appearance,Urine Clear (Clear); Bacteria,Urine Rare /hpf; Bilirubin,Urine Negative (Negative); Blood,Urine Large (Negative); Calcium Oxalate Crystals,Urine Rare /hpf; Color,Urine Yellow; Glucose,Urine (UA) Negative (Negative); Hyaline Casts,Urine 1 /lpf (0-2); Ketones,Urine Negative (Negative); Leukocyte Esterase,Urine Negative (Negative); Mucus,Urine Rare /hpf; Nitrite,Urine Negative (Negative); PH, Urine 5.5 (5.0-8.0); Protein,Urine 1+ (Negative); RBC,Urine 40 /hpf (0-5); Specific Gravity,Urine 1.021 (1.001-1.035); Squamous Epithelial Cell,Urine 2 /hpf (0-4); Urobilinogen,Urine <2.0 mg/dL (<2.0); WBC,Urine 4 /hpf (0-5)
[2022-01-28] MEDS: QUEtiapine 100 MG TAB PO SCH (21:26)
[2022-01-28] MEDS: ATORVASTATIN 20 MG TAB PO SCH (21:26)
[2022-01-28] MEDS: ALPRAZolam 0.25 MG TAB PO PRN (21:26)
[2022-01-28] MEDS: SERTRALINE 100 MG TAB PO SCH (21:26)
[2022-01-29] MEDS: PIPERACILLIN-TAZOBACTAM 3.375 GM in SODIUM CHLORIDE 0.9% 100 ML IVPB SCH ×3 (00:20→23:12)
[2022-01-29] MEDS: ACETAMINOPHEN TAB 325 MG TAB PO PRN (06:08)
[2022-01-29] MEDS: LEVOTHYROXINE 75 MCG TAB PO SCH (06:09)
[2022-01-29] MEDS: IPRATROPIUM-ALBUTEROL 3 ML NEB INHALATION SCH ×4 (07:12→21:00)
[2022-01-29 08:31] LABS: HCT 35.4 % (34.0-46.0); HGB 11.1 gm/dL (11.4-16.0); Hypochromasia Slight; MCH 32.1 pg (25.0-35.0); MCHC 31.5 g/dL (31.0-37.0); MCV 102.1 fL (80.0-100.0); Macrocytosis Slight; Mean Platelet Volume 9.1; Platelet Count 185 k/uL (150-450); RBC 3.47 m/uL (3.80-5.40); RDW 14.8 % (11.5-15.5); WBC 16.4 k/uL (3.8-10.6)
[2022-01-29] MEDS: FUROSEMIDE 10 MG/ML 4 ML VIAL IV SCH (08:35)
[2022-01-29] MEDS: APIXABAN 5 MG TAB PO SCH ×2 (08:36→21:05)
[2022-01-29] MEDS: guaiFENesin 600 MG TABLET.ER PO SCH ×2 (08:36→21:06)
[2022-01-29] MEDS: PANTOPRAZOLE 40 MG TABLET PO SCH (08:36)
[2022-01-29] MEDS: allopurinoL 100 MG TAB PO SCH ×2 (08:36→21:05)
[2022-01-29] MEDS: HYDROcodone/APAP 5-325MG 1 EACH TAB PO PRN ×3 (08:36→21:16)
[2022-01-29] MEDS: CHOLECALCIFEROL 25 MCG (1000 IU) TABLET PO SCH (08:36)
[2022-01-29] MEDS: MONTELUKAST 10 MG TAB PO SCH (08:36)
[2022-01-29] MEDS: METOPROLOL TARTRATE 25 MG TAB PO SCH (08:36)
[2022-01-29] MEDS: CYANOCOBALAMIN 500 MCG TAB PO SCH (08:36)
[2022-01-29 08:40] LABS: Calcium 8.5 mg/dL (8.4-10.2); Magnesium 2.1 mg/dL (1.6-2.3); Potassium 4.1 mmol/L (3.5-5.1)
--- NOTE | 2022-01-29 10:17 | P.PN ---
Subjective Patient is seen in follow-up for acute kidney injury on chronic kidney disease. Renal function a little better. Nonoliguric. Denies chest pain. Dyspnea improved. On nasal cannula. Oral intake fair. No active complaints. Vital signs are stable. General: Awake. No acute distress. HEENT: Head exam is unremarkable. On nasal cannula. LUNGS: Breath sounds decreased. HEART: Rate and Rhythm are regular. ABDOMEN: Soft, no distention. EXTREMITITES: No edema. Objective - Vital Signs Vital signs: Vital Signs Temp 98.1 F 01/29/22 08:25 Pulse 87 01/29/22 08:25 Resp 18 01/29/22 08:25 BP 96/64 01/29/22 08:25 Pulse Ox 97 01/29/22 08:25 FiO2 Intake & Output 01/28/22 01/29/22 01/29/22 18:59 06:59 18:59 Intake Total 120 Output Total 1650 1550 Balance -1650 -1430 Weight 79.1 kg Intake: Oral 120 Output: Urine 1650 1550 Other: Voiding Method External Catheter External Catheter External Catheter # Bowel Movements 1 - Labs CBC & Chem 7: 01/29/22 07:39 01/29/22 07:39 Labs: Abnormal Lab Results - Last 24 Hours (Table) 01/28/22 01/29/22 01/29/22 Range/Units 19:08 07:39 07:39 WBC 16.4 H (3.8-10.6) k/uL RBC 3.47 L (3.80-5.40) m/uL Hgb 11.1 L (11.4-16.0) gm/dL MCV 102.1 H (80.0-100.0) fL BUN 57 H (7-17) mg/dL Creatinine 2.28 H (0.52-1.04) mg/dL Glucose 112 H (74-99) mg/dL Urine Protein 1+ H (Negative) Urine Blood Large H (Negative) Urine RBC 40 H (0-5) /hpf Calcium Oxalate Crystal Rare H (None) /hpf Urine Bacteria Rare H (None) /hpf Urine Mucus Rare H (None) /hpf Microbiology - Last 24 Hours (Table) 01/26/22 17:20 Blood Culture - Preliminary Blood No Growth after 48 hours 01/26/22 17:05 Blood Culture Gram Stain - Final Blood Blood Culture - Final Staphylococcus epidermidis Assessment and Plan Plan: Assessment: 1. Acute kidney injury secondary to ATN secondary to cardiorenal syndrome. Creatinine 2.24 on admission - 2.28 today. No hydronephrosis noted on kidney ultrasound. Right kidney atrophic. Left kidney not properly visualized. 2. Chronic kidney disease stage IV with baseline creatinine in the range of 1.5-2 secondary to nephrosclerosis. Serologies have been negative in the past. Elevated light chain levels noted in April 2019. 3. Acute on chronic diastolic CHF with moderate mitral regurgitation. 4. Coronary artery disease with prior stenting. 5. History of A. fib. 6. Anemia of chronic kidney disease. Iron deficiency noted. 7. Pneumonia on antibiotics. Pulmonology following. 8. Staph epi bacteremia. Likely contaminant. 9. Hypokalemia from diuresis. Replaced. Better. Plan: Change to oral Lasix 40 mg twice daily. Encouraged oral intake. Avoid nephrotoxins. Continue to monitor renal function and urine output. Check serum light chains and electrophoresis studies. I advised patient to maintain low-salt diet and 1500 mL fluid restriction per day upon discharge. Follow up outpatient in 1 week post discharge.
[2022-01-29] MEDS: VITAMIN A 10,000 UNIT (3000 MCG) CAPSULE PO SCH (10:19)
[2022-01-29] MEDS: CYCLOBENZAPRINE 5 MG TAB PO PRN (10:19)
[2022-01-29] MEDS: AMIODARONE 100 MG TAB PO SCH (10:19)
--- NOTE | 2022-01-29 10:53 | P.PN ---
Subjective This is a 66 year old female with a past medical history of coronary artery disease s/p PCI to mid RCA 2012, PCI mid to distal RCA 2015, paroxysmal atrial fibrillation on Eliquis, hypertension, dyslipidemia, aortic and mitral regurgitation, chronic kidney disease, peripheral vascular disease, former tobacco use, closed head injury 15 years ago and has short term memory loss. She follows with Dr. Stockton. We are consulted for congestive heart failure. Patient recently admitted to the hospital 01/17-01/24 with shortness of breath, diagnosed with Acute COPD exacerbation/bronchitis and Acute congestive heart failure. She underwent bronchoscopy with BAL which was positive for Klebsiella pneumoniae and Inga albicans. She was discharged with Augmentin and prednisone taper. Echo 01/17/22 revealed EF 55%, moderate mitral regurgitation, mild aortic regurgitation. Patient presents to the ER complaining of fatigue, chills, subjective fever, pro ductive cough for clear to yellow sputum per ER note. Secondary to patient's closed head injury she is unsure of her symptoms at home. In the ER she complains of generalized aches and fatigue and shortness of breath. Denies any orthopnea or PND. She denies any chest pain, palpitations, lightheadedness or dizziness. 01/29/2022 Patient seen and examined at bedside, no acute distress. Her shortness of breath has improved. No chest pain. Her chest x-ray yesterday shows improvement as well. Her oxygen has been weaned. Currently on 2 L nasal cannula. Blood pressure 96/64, heart rate 87, afebrile, oxygen saturations 97% on 2 L nasal cannula. She continues to be on IV Lasix with 3.2 L urine output over the past 24 hours. Decrease in weight noted Currently also on IV Zosyn. Labs: Sodium 138, potassium 4.1, BUN 57, serum creatinine 2.2 PHYSICAL EXAMINATION Vitals reviewed CONSTITUTIONAL: No apparent distress. HEENT: Head is normocephalic. Mucous membranes of the mouth are moist. No JVD. CHEST EXAMINATION: Lungs are crackles bilaterally in the bases to auscultation. No chest wall tenderness is noted on palpation or with deep breathing. HEART EXAMINATION: Regular rate and rhythm. S1, S2 heard. Systolic ejection murmur ABDOMEN: Soft, nontender. Positive bowel sounds. EXTREMITIES: 2+ peripheral pulses, no lower extremity edema and no calf tenderness. NEUROLOGIC EXAMINATION: Patient is awake, alert and oriented x3. ASSESSMENT Shortness of breath Fatigue, chills, cough, subjective fever Leukocytosis Acute on chronic heart failure with preserved ejection fraction Pneumonia Recent bronchoscopy with BAL which was positive for Klebsiella pneumoniae and Inga albicans Coronary artery disease s/p PCI to mid RCA 2012, PCI mid to distal RCA 2015 Paroxysmal atrial fibrillation on Eliquis Hypertension Dyslipidemia Mild aortic and moderate mitral regurgitation Chronic kidney disease Peripheral vascular disease COPD Former tobacco use History of closed head injury 15 years ago and has short term memory loss PLAN Continue IV Lasix one more day, nephrology following as well assisting in diuresis management Monitor I/Os daily weights, renal function and electrolytes Continue Eliquis, statin, beta lucinda Further recommendations based on clinical course Nurse practitioner note has been reviewed by physician. Signing provider agrees with the documented findings, assessment, and plan of care. Objective - Vital Signs Vital signs: Vital Signs Temp 98.1 F 01/29/22 08:25 Pulse 87 01/29/22 08:25 Resp 18 01/29/22 08:25 BP 96/64 01/29/22 08:25 Pulse Ox 97 01/29/22 08:25 FiO2 Intake & Output 01/28/22 01/29/22 01/29/22 18:59 06:59 18:59 Intake Total 120 Output Total 1650 1550 600 Balance -1650 -1430 -600 Weight 79.1 kg Intake: Oral 120 Output: Urine 1650 1550 600 Other: Voiding Method External Catheter External Catheter External Catheter # Bowel Movements 1 - Labs CBC & Chem 7: 01/29/22 07:39 01/29/22 07:39 Labs: Abnormal Lab Results - Last 24 Hours (Table) 01/28/22 01/29/22 01/29/22 Range/Units 19:08 07:39 07:39 WBC 16.4 H (3.8-10.6) k/uL RBC 3.47 L (3.80-5.40) m/uL Hgb 11.1 L (11.4-16.0) gm/dL MCV 102.1 H (80.0-100.0) fL BUN 57 H (7-17) mg/dL Creatinine 2.28 H (0.52-1.04) mg/dL Glucose 112 H (74-99) mg/dL Urine Protein 1+ H (Negative) Urine Blood Large H (Negative) Urine RBC 40 H (0-5) /hpf Calcium Oxalate Crystal Rare H (None) /hpf Urine Bacteria Rare H (None) /hpf Urine Mucus Rare H (None) /hpf Microbiology - Last 24 Hours (Table) 01/26/22 21:46 Gram Stain - Final Sputum Sputum Culture - Final 01/26/22 17:20 Blood Culture - Preliminary Blood No Growth after 48 hours 01/26/22 17:05 Blood Culture Gram Stain - Final Blood Blood Culture - Final Staphylococcus epidermidis
--- NOTE | 2022-01-29 11:44 | P.PN ---
Subjective Progress Note Date: 01/29/22 Patient is a 66-year-old female with a past medical history of COPD, coronary artery disease, CK D stage III, paroxysmal atrial fibrillation, hypertension, hyperlipidemia, hypothyroidism who presents to the ED with shortness of breath. Patient was just discharged 2 days ago. On previous admission she was treated for pneumonia with IV Zosyn and was discharged on Augmentin for 7 days. She had a bronchoscopy done that grew Klebsiella pneumonia that is susceptible to Zosyn as well as Augmentin. Patient was started on Zosyn and admitted for treatment of pneumonia. She was also started on Lasix 40 mg IV BID. Pulmonology was consulted. She did have one set of blood cultures that was positive for S. ep idermidis. Patient was seen and examined. No acute events overnight. Patient reports continued improvement in her shortness of breath. Currently on 2 L nasal cannula. General: Alert and oriented, well nourished, no acute distress, patient appears chronically debilitated. Eye: EOMI, normal conjunctiva. HENT: Normocephalic, normal hearing, moist oral mucosa, no scleral icterus, no sinus tenderness. Neck: Supple, non-tender, no carotid bruits, no JVD, no lymphadenopathy. Lungs: Diffuse rhonchi, non-labored respiration. Heart: Normal rate, regular rhythm, no murmur, gallop or edema. Musculoskeletal: Normal range of motion and strength, no tenderness or swelling. Skin: Skin is warm, dry and pink, no rashes or lesions. Neurologic: Awake, alert, and oriented X3. Psychiatric: Cooperative, appropriate mood and affect. #Multifocal pneumonia with sepsis #Acute hypoxic respiraotry failure #Acute on chronic diastolic heart failure Patient meets sepsis criteria with leukocytosis, tachypnea and positive source of infection. Cultures from bronchoscopy on previous admission grew Klebsiella pneumonia. Procalcitonin elevated. Resume IV Zosyn. Pulmonology, Cardiology and Nephrology on board. Follow up on blood and sputum cultures done on this admission. Lasix transitioned from IV to PO. Continue strict intake and outtake and daily weights. Mucinex. #Gram + bacteremia Likely contaminant. Repeat blood cultures ordered. #COPD on 2 L nasal cannula at home Resume Singulair. Patient recently completed her steroid course. Patient currently has no wheezing. DuoNeb as needed. #Normocytic anemia reports dark stools and nosebleed. Stool of occult blood negative. Hemoglobin is stable so okay to resume Eliquis. Trend CBC. #Atrial fibrillation Resume amiodarone and Eliquis and metoprolol. #CKD stage III Renal US shows no hydronephrosis. Patient creatinine at baseline. Monitor creatinine closely while on diuretics. Nephrology on board. #Chronic back pain Tylenol and [place] PRN for severe pain. Add Flexeril PRN. Chronic conditions Gout, hyperlipidemia, GERD, hypothyroidism Resume home meds. CODE STATUS: FULL CODE DVT prophylaxis: Yogesh Patient continues to show improvement with regard to her respiratory status. Lasix transitioned to PO. Obtain CXR tomorrow. Anticipate DC in 1-2 days. Objective - Vital Signs Vital signs: Vital Signs Temp 98.1 F 01/29/22 08:25 Pulse 87 01/29/22 08:25 Resp 18 01/29/22 08:25 BP 96/64 01/29/22 08:25 Pulse Ox 97 01/29/22 08:25 FiO2 Intake & Output 01/28/22 01/29/22 01/29/22 18:59 06:59 18:59 Intake Total 120 Output Total 1650 1550 600 Balance -1650 -1430 -600 Weight 79.1 kg Intake: Oral 120 Output: Urine 1650 1550 600 Other: Voiding Method External Catheter External Catheter External Catheter # Bowel Movements 1 - Labs CBC & Chem 7: 01/29/22 07:39 01/29/22 07:39 Labs: Abnormal Lab Results - Last 24 Hours (Table) 01/28/22 01/29/22 01/29/22 Range/Units 19:08 07:39 07:39 WBC 16.4 H (3.8-10.6) k/uL RBC 3.47 L (3.80-5.40) m/uL Hgb 11.1 L (11.4-16.0) gm/dL MCV 102.1 H (80.0-100.0) fL BUN 57 H (7-17) mg/dL Creatinine 2.28 H (0.52-1.04) mg/dL Glucose 112 H (74-99) mg/dL Urine Protein 1+ H (Negative) Urine Blood Large H (Negative) Urine RBC 40 H (0-5) /hpf Calcium Oxalate Crystal Rare H (None) /hpf Urine Bacteria Rare H (None) /hpf Urine Mucus Rare H (None) /hpf Microbiology - Last 24 Hours (Table) 01/26/22 21:46 Gram Stain - Final Sputum Sputum Culture - Final 01/26/22 17:20 Blood Culture - Preliminary Blood No Growth after 48 hours 01/26/22 17:05 Blood Culture Gram Stain - Final Blood Blood Culture - Final Staphylococcus epidermidis
[2022-01-29] MEDS: SODIUM FERRIC GLUCONAT-SUCROSE 125 MG in SODIUM CHLORIDE 0.9% 100 ML IVPB SCH (12:58)
--- NOTE | 2022-01-29 14:09 | P.PN ---
Subjective Progress Note Date: 01/29/22 Principal diagnosis: Shortness of breath. This is a pleasant 66-year-old female patient, presents to the hospital because of worsening shortness of breath. No chest pain. She is known to have COPD. She isn't a smoker. She also has coronary artery disease and chronic stage III kidney disease and history of paroxysmal fibrillation and currently her rhythm is sinus. She has hypertension, hyperlipidemia, hypothyroidism. She has also a history of closed head injury. She was admitted here 01/17 through 01/24/2022 for a CHF exacerbation along with suspected bronchitis/pneumonia. She had undergone bronchoscopy with BAL on 01/24/2022 that showed evidence of Klebsiella pneumoniae and Inga. She had been discharged home on Augmentin, prednisone taper, oral diuretics. She is anticoagulated with Eliquis. He again presented to the emergency room on 01/26/2022 with complaints of worsening shortness of breath. Chest x-ray shows multifocal airspace opacities with underlying congestive heart failure and cardiomegaly. White count 12.0. Hemoglobin 10.2. Sodium 140. Potassium 3.4. BUN 66. Creatinine 2.34. Glucose 162. Butler virus by PCR negative. ProBNP 10,500. She is currently on IV diuretics. Procalcitonin pending. She is seen today in consultation in the emergency department. Currently sitting up on the stretcher. Awake and alert in no acute distress. Continue O2 saturations in the mid 90s on 3 L/m per nasal cannula. Afebrile. Currently in sinus rhythm. The patient is seen today 01/28/2022 in follow-up on the selective care unit. She is currently sitting up in bed. Awake and alert in no acute distress. Her is at the bedside. She is maintaining good O2 saturations in the 90s on 4 L/m per nasal cannula. She's afebrile. Hemodynamically stable. Follow-up chest x-ray reveals evidence of pulmonary fibrosis and some mild congestive heart failure. Improved pulmonary congestion compared to previous. Initial blood culture positive for Staphylococcus epidermidis. Follow-up blood cultures reveal no growth. Sputum culture pending. Sodium 137. Potassium 3.7. BUN 64. Creatinine 2.49. Glucose 116. Pro-calcitonin 0.33. Troponin negative 1. Progress note dated 01/29/2022. The patient is seen today in room 378. She's not receiving any IV fluids. She is on 2 L of oxygen. She had a bronchoscopy on January 24, which did reveal Klebsiella pneumoniae. We are recommending a flutter valve for her as well. She has stage II or moderate emphysema, with an FEV1 that is 68%. 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 White count 16.4, hemoglobin 11.1, hematocrit 35.4, and platelet count 285,000. Sodium 138, potassium 4.1, chlorides 100, CO2 25, anion gap 13, BUN 57, creatinine 2.28. Chest x-ray from January 28, is improved compared to prior chest x-ray. Objective - Vital Signs Vital signs: Vital Signs Temp 98.1 F 01/29/22 08:25 Pulse 87 01/29/22 08:25 Resp 18 01/29/22 08:25 BP 96/64 01/29/22 08:25 Pulse Ox 97 01/29/22 08:25 FiO2 Intake & Output 01/28/22 01/29/22 01/29/22 18:59 06:59 18:59 Intake Total 120 Output Total 1650 1550 600 Balance -1650 -1430 -600 Weight 79.1 kg Intake: Oral 120 Output: Urine 1650 1550 600 Other: Voiding Method External Catheter External Catheter External Catheter # Bowel Movements 1 - Exam No acute distress, oriented 3. Currently on 2 L of oxygen. No conversational dyspnea or use of accessory muscles. HEENT examination is grossly unremarkable. Neck supple. Full range of motion. No adenopathy thyromegaly or neck vein distention. Cardiovascular examination reveals regular rhythm rate. S1-S2 normal. No S3 or S4. No discernible murmur noted. Heart rate 87 bpm. Lungs reveal scattered bilateral rhonchi, and expiratory wheezes. No crackles. Breath sounds are equal bilaterally. 2 L saturation is 97%. Abdomen soft bowel sounds are heard. No masses or tenderness. Extremities are intact. No cyanosis clubbing or edema. Skin is without rash or lesion. Neurologic examination is brief but nonfocal. - Labs CBC & Chem 7: 01/29/22 07:39 01/29/22 07:39 Labs: Abnormal Lab Results - Last 24 Hours (Table) 01/28/22 01/29/22 01/29/22 Range/Units 19:08 07:39 07:39 WBC 16.4 H (3.8-10.6) k/uL RBC 3.47 L (3.80-5.40) m/uL Hgb 11.1 L (11.4-16.0) gm/dL MCV 102.1 H (80.0-100.0) fL BUN 57 H (7-17) mg/dL Creatinine 2.28 H (0.52-1.04) mg/dL Glucose 112 H (74-99) mg/dL Urine Protein 1+ H (Negative) Urine Blood Large H (Negative) Urine RBC 40 H (0-5) /hpf Calcium Oxalate Crystal Rare H (None) /hpf Urine Bacteria Rare H (None) /hpf Urine Mucus Rare H (None) /hpf Microbiology - Last 24 Hours (Table) 01/26/22 21:46 Gram Stain - Final Sputum Sputum Culture - Final 01/26/22 17:20 Blood Culture - Preliminary Blood No Growth after 48 hours 01/26/22 17:05 Blood Culture Gram Stain - Final Blood Blood Culture - Final Staphylococcus epidermidis Assessment and Plan Assessment: Acute exacerbation of chronic diastolic congestive heart failure. Acute on chronic hypoxemic respiratory failure secondary to above along with recent Klebsiella pneumoniae on bronchial wash from 01/24/2022. Acute on chronic renal failure. Coronary artery disease with previous cardiac catheterization and coronary stenting. History of atrial fibrillation. Chronic stage III kidney disease. Hypertension. Hyperlipidemia. 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 Hypothyroidism. Previous history of UTIs. Previous history of a permanent pain stimulator insertion and subsequent removal. Plan: Plan dated 01/29/2022. The patient continues on Zosyn. We also add some Symbicort to her regimen. In addition, the patient is given a flutter valve, with instructions, to help her with her secretions and mucous. We went back to the office notes, and saw that the patient has stage II or moderate emphysema, with an FEV1 that is 68% of predicted. The patient's on 2 L. The patient is not requiring any IV fluids. Labs, x-rays, and medications are reviewed. Prognosis is guarded. Time with Patient: Less than 30
[2022-01-29 15:40] LABS: Protein, Total 6.4 g/dL (6.2-8.2)
[2022-01-29] MEDS: FUROSEMIDE 40 MG TAB PO SCH (16:43)
[2022-01-29] MEDS: SYMBICORT 160-4.5 MCG INHALER INHALATION SCH (21:00)
[2022-01-29] MEDS: ATORVASTATIN 20 MG TAB PO SCH (21:05)
[2022-01-29] MEDS: SERTRALINE 100 MG TAB PO SCH (21:06)
[2022-01-29] MEDS: QUEtiapine 100 MG TAB PO SCH (21:06)
[2022-01-29] MEDS: ALPRAZolam 0.25 MG TAB PO PRN (21:06)
[2022-01-30] MEDS: HYDROcodone/APAP 5-325MG 1 EACH TAB PO PRN ×4 (02:53→20:15)
[2022-01-30] MEDS: LEVOTHYROXINE 75 MCG TAB PO SCH (06:05)
[2022-01-30] MEDS: IPRATROPIUM-ALBUTEROL 3 ML NEB INHALATION SCH ×4 (07:20→19:51)
[2022-01-30] MEDS: SYMBICORT 160-4.5 MCG INHALER INHALATION SCH ×2 (07:20→19:50)
--- NOTE | 2022-01-30 07:26 | XR ---
EXAMINATION TYPE: XR chest 1V portable DATE OF EXAM: 01/30/2022 HISTORY: Shortness of breath. COMPARISON: 01/28/2022 TECHNIQUE: Single view of the chest is submitted. FINDINGS: Demonstrated are scattered senescent parenchymal change. There is no evidence for focal infiltrate. Prominent nonspecific interstitial process left greater th an right. The heart is stable. Hilar and mediastinal structures are within normal limits. Degenerative changes are seen of the dorsal spine. IMPRESSION: 1. Prominent nonspecific interstitial process left greater than right.
--- NOTE | 2022-01-30 07:56 | P.PN ---
Subjective Progress Note Date: 01/30/22 Principal diagnosis: Coronary artery disease The patient is a pleasant 66-year-old female patient was known coronary artery disease and prior revascularization internal stenting as well as history of heart failure with preserved ejection fraction as well as paroxysmal atrial fib rillation and chronic kidney disease was admitted to the hospital again with shortness of breath felt to be related to mild heart failure along with pneumonia. January [id number] The patient was seen this morning. She stated she is feeling better. The shortness of breath has improved. No symptoms of chest pain or chest discomfort. She is currently on Lasix by mouth. The creatinine seems to be stable. She would like to stay one more day. I am going to monitor the patient for additional 24 hours. She was advised to get up and around. We'll continue following up with the patient Objective - Vital Signs Vital signs: Vital Signs Temp 98 F 01/30/22 03:17 Pulse 78 01/30/22 03:17 Resp 16 01/30/22 03:17 BP 103/61 01/30/22 03:17 Pulse Ox 94 L 01/30/22 07:20 FiO2 Intake & Output 01/29/22 01/30/22 01/30/22 18:59 06:59 18:59 Output Total 600 Balance -600 Output: Urine 600 Other: Voiding Method External Catheter External Catheter - Constitutional General appearance: Present: no acute distress - Respiratory Respiratory: bilateral: diminished - Cardiovascular Rhythm: regular Heart sounds: normal: S1, S2 - Labs CBC & Chem 7: 01/29/22 07:39 01/29/22 07:39 Labs: Abnormal Lab Results - Last 24 Hours (Table) 01/29/22 01/29/22 Range/Units 07:39 07:39 WBC 16.4 H (3.8-10.6) k/uL RBC 3.47 L (3.80-5.40) m/uL Hgb 11.1 L (11.4-16.0) gm/dL MCV 102.1 H (80.0-100.0) fL BUN 57 H (7-17) mg/dL Creatinine 2.28 H (0.52-1.04) mg/dL Glucose 112 H (74-99) mg/dL Microbiology - Last 24 Hours (Table) 01/26/22 17:20 Blood Culture - Preliminary Blood No Growth after 72 hours 01/28/22 12:04 Blood Culture - Preliminary Blood No Growth after 24 hours 01/26/22 21:46 Gram Stain - Final Sputum Sputum Culture - Final Assessment and Plan Assessment: Assessment Heart failure with preserved ejection fraction seems to be stable Coronary artery disease seems to be stable Chronic kidney disease Multiple comorbid conditions Paroxysmal atrial fibrillation Plan Continue the current medical regimen She seems to be euvolemic on examination Monitor the patient for additional 24 hours Follow-up with the patient
[2022-01-30] MEDS: CHOLECALCIFEROL 25 MCG (1000 IU) TABLET PO SCH (09:38)
[2022-01-30] MEDS: guaiFENesin 600 MG TABLET.ER PO SCH ×2 (09:38→20:15)
[2022-01-30] MEDS: FUROSEMIDE 40 MG TAB PO SCH ×2 (09:38→16:43)
[2022-01-30] MEDS: PANTOPRAZOLE 40 MG TABLET PO SCH (09:38)
[2022-01-30] MEDS: CYANOCOBALAMIN 500 MCG TAB PO SCH (09:38)
[2022-01-30] MEDS: METOPROLOL TARTRATE 25 MG TAB PO SCH (09:38)
[2022-01-30] MEDS: APIXABAN 5 MG TAB PO SCH ×2 (09:38→20:15)
[2022-01-30] MEDS: allopurinoL 100 MG TAB PO SCH ×2 (09:38→20:14)
[2022-01-30] MEDS: MONTELUKAST 10 MG TAB PO SCH (09:38)
[2022-01-30] MEDS: SODIUM FERRIC GLUCONAT-SUCROSE 125 MG in SODIUM CHLORIDE 0.9% 100 ML IVPB SCH (09:39)
--- NOTE | 2022-01-30 11:01 | P.PN ---
Subjective Patient is seen in follow-up for acute kidney injury on chronic kidney disease. Renal function fairly stable this admission. Nonoliguric. Denies chest pain. Dyspnea improved. On 2 L nasal cannula. Patient does wear home O2. Oral intake fair. No active complaints. Vital signs are stable. General: Awake. No acute distress. HEENT: Head exam is unremarkable. On nasal cannula. LUNGS: Breath sounds decreased. HEART: Rate and Rhythm are regular. ABDOMEN: Soft, no distention. EXTREMITITES: No edema. Objective - Vital Signs Vital signs: Vital Signs Temp 98 F 01/30/22 03:17 Pulse 78 01/30/22 03:17 Resp 16 01/30/22 03:17 BP 103/61 01/30/22 03:17 Pulse Ox 94 L 01/30/22 07:20 FiO2 Intake & Output 01/29/22 01/30/22 01/30/22 18:59 06:59 18:59 Intake Total 0 Output Total 600 Balance -600 0 Weight 78.8 kg Intake: Oral 0 Output: Urine 600 Other: Voiding Method External Catheter External Catheter - Labs CBC & Chem 7: 01/29/22 07:39 01/29/22 07:39 Labs: Microbiology - Last 24 Hours (Table) 01/26/22 17:20 Blood Culture - Preliminary Blood No Growth after 72 hours 01/28/22 12:04 Blood Culture - Preliminary Blood No Growth after 24 hours 01/26/22 21:46 Gram Stain - Final Sputum Sputum Culture - Final Assessment and Plan Plan: Assessment: 1. Acute kidney injury secondary to ATN secondary to cardiorenal syndrome. Creatinine 2.24 on admission - 2.28 yesterday. No hydronephrosis noted on kidney ultrasound. Right kidney atrophic. Left kidney not properly visualized. 2. Chronic kidney disease stage IV with baseline creatinine in the range of 1.5-2 secondary to nephrosclerosis. Serologies have been negative in the past. Elevated light chain levels noted in April 2019. 3. Acute on chronic diastolic CHF with moderate mitral regurgitation. 4. Coronary artery disease with prior stenting. 5. History of A. fib. 6. Anemia of chronic kidney disease. Iron deficiency noted. 7. Pneumonia on antibiotics. Pulmonology following. 8. Staph epi bacteremia. Likely contaminant. 9. Hypokalemia from diuresis. Replaced. Better. Plan: Maintain oral Lasix. Maintain IV iron. Encouraged oral intake. Avoid nephrotoxins. Repeat UA. Continue to monitor renal function and urine output. Follow-up serum light chains and electrophoresis studies. I advised patient to maintain low-salt diet and 1500 mL fluid restriction per day upon discharge. Follow up outpatient in 1 week post discharge.
--- NOTE | 2022-01-30 11:46 | P.PN ---
Subjective Progress Note Date: 01/30/22 Patient is a 66-year-old female with a past medical history of COPD, coronary artery disease, CK D stage III, paroxysmal atrial fibrillation, hypertension, hyperlipidemia, hypothyroidism who presents to the ED with shortness of breath. Patient was just discharged 2 days ago. On previous admission she was treated for pneumonia with IV Zosyn and was discharged on Augmentin for 7 days. She had a bronchoscopy done that grew Klebsiella pneumonia that is susceptible to Zosyn as well as Augmentin. Patient was started on Zosyn and admitted for treatment of pneumonia. She was also started on Lasix 40 mg IV BID. Pulmonology was consulted. She did have one set of blood cultures that was positive for S. ep idermidis. Patient was seen and examined. No acute events overnight. Patient reports continued improvement in her shortness of breath. Currently on 2-3 L nasal cannula. General: Alert and oriented, well nourished, no acute distress, patient appears chronically debilitated. Eye: EOMI, normal conjunctiva. HENT: Normocephalic, normal hearing, moist oral mucosa, no scleral icterus, no sinus tenderness. Neck: Supple, non-tender, no carotid bruits, no JVD, no lymphadenopathy. Lungs: Decreased BS BL with scattered ronchi, non-labored respiration. Heart: Normal rate, regular rhythm, no murmur, gallop or edema. Musculoskeletal: Normal range of motion and strength, no tenderness or swelling. Skin: Skin is warm, dry and pink, no rashes or lesions. Neurologic: Awake, alert, and oriented X3. Psychiatric: Cooperative, appropriate mood and affect. #Multifocal pneumonia with sepsis #Acute hypoxic respiraotry failure #Acute on chronic diastolic heart failure Patient meets sepsis criteria with leukocytosis, tachypnea and positive source of infection. Cultures from bronchoscopy on previous admission grew Klebsiella pneumonia. Procalcitonin elevated. Resume IV Zosyn. Pulmonology, Cardiology and Nephrology on board. Follow up on blood and sputum cultures done on this admission. Continue Lasix by mouth. Continue strict intake and outtake and daily weights. Mucinex. #Gram + bacteremia Likely contaminant. Repeat blood cultures ordered. #COPD on 2 L nasal cannula at home Resume Singulair. Patient recently completed her steroid course. Patient currently has no wheezing. DuoNeb as needed. #Normocytic anemia reports dark stools and nosebleed. Stool of occult blood negative. Hemoglobin is stable so okay to resume Eliquis. Trend CBC. #Atrial fibrillation Resume amiodarone and Eliquis and metoprolol. #CKD stage III Renal US shows no hydronephrosis. Patient creatinine at baseline. Monitor creatinine closely while on diuretics. Nephrology on board. #Chronic back pain Tylenol and [place] PRN for severe pain. Add Flexeril PRN. Chronic conditions Gout, hyperlipidemia, GERD, hypothyroidism Resume home meds. CODE STATUS: FULL CODE DVT prophylaxis: [place] Patient continues to show improvement with regard to her respiratory status. Lasix transitioned to PO. CXR shows prominent interstitial marking. Cardiology would like to observe one more day. Anticipate DC home tomorrow. Objective - Vital Signs Vital signs: Vital Signs Temp 96.2 F L 01/30/22 08:00 Pulse 75 01/30/22 11:28 Resp 16 01/30/22 08:00 BP 112/68 01/30/22 08:00 Pulse Ox 94 L 01/30/22 07:20 FiO2 Intake & Output 01/29/22 01/30/22 01/30/22 18:59 06:59 18:59 Intake Total 0 Output Total 600 Balance -600 0 Weight 78.8 kg Intake: Oral 0 Output: Urine 600 Other: Voiding Method External Catheter External Catheter External Catheter - Labs CBC & Chem 7: 01/29/22 07:39 01/29/22 07:39 Labs: Microbiology - Last 24 Hours (Table) 01/26/22 17:20 Blood Culture - Preliminary Blood No Growth after 72 hours 01/28/22 12:04 Blood Culture - Preliminary Blood No Growth after 24 hours 01/26/22 21:46 Gram Stain - Final Sputum Sputum Culture - Final
[2022-01-30 12:09] LABS: Free Lambda Lt Chain Qnt, Seru 7.39 mg/dL (0.57-2.63)
[2022-01-30 12:50] LABS: HCT 34.6 % (34.0-46.0); HGB 11.1 gm/dL (11.4-16.0); Hypochromasia Moderate; MCH 33.3 pg (25.0-35.0); MCHC 32.2 g/dL (31.0-37.0); MCV 103.3 fL (80.0-100.0); Macrocytosis Slight; Mean Platelet Volume 9.4; Platelet Count 182 k/uL (150-450); RBC 3.35 m/uL (3.80-5.40); RDW 14.8 % (11.5-15.5); WBC 16.2 k/uL (3.8-10.6)
[2022-01-30] MEDS: VITAMIN A 10,000 UNIT (3000 MCG) CAPSULE PO SCH (12:51)
[2022-01-30] MEDS: AMIODARONE 100 MG TAB PO SCH (12:51)
[2022-01-30] MEDS: CYCLOBENZAPRINE 5 MG TAB PO PRN ×2 (12:55→20:15)
[2022-01-30 13:03] LABS: Calcium 8.3 mg/dL (8.4-10.2)
[2022-01-30] MEDS: PIPERACILLIN-TAZOBACTAM 3.375 GM in SODIUM CHLORIDE 0.9% 100 ML IVPB SCH ×2 (13:46→23:14)
--- NOTE | 2022-01-30 15:24 | P.PN ---
Subjective Progress Note Date: 01/30/22 This is a pleasant 66-year-old female patient, presents to the hospital because of worsening shortness of breath. No chest pain. She is known to have COPD. She isn't a smoker. She also has coronary artery disease and chronic stage III kidney disease and history of paroxysmal fibrillation and currently her rhythm is sinus. She has hypertension, hyperlipidemia, hypothyroidism. She has also a history of closed head injury. She was admitted here 01/17 through 01/24/2022 for a CHF exacerbation along with suspected bronchitis/pneumonia. She had undergone bronchoscopy with BAL on 01/24/2022 that showed evidence of Klebsiella pneumoniae and Inga. She had been discharged home on Augmentin, prednisone taper, oral diuretics. She is anticoagulated with Eliquis. He again presented to the emergency room on 01/26/2022 with complaints of worsening shortness of breath. Chest x-ray shows multifocal airspace opacities with underlying congestive heart failure and cardiomegaly. White count 12.0. Hemoglobin 10.2. Sodium 140. Potassium 3.4. BUN 66. Creatinine 2.34. Glucose 162. Butler virus by PCR negative. ProBNP 10,500. She is currently on IV diuretics. Procalcitonin pending. She is seen today in consultation in the emergency department. Currently sitting up on the stretcher. Awake and alert in no acute distress. Continue O2 saturations in the mid 90s on 3 L/m per nasal cannula. Afebrile. Currently in sinus rhythm. The patient is seen today 01/28/2022 in follow-up on the selective care unit. She is currently sitting up in bed. Awake and alert in no acute distress. Her is at the bedside. She is maintaining good O2 saturations in the 90s on 4 L/m per nasal cannula. She's afebrile. Hemodynamically stable. Follow-up chest x-ray reveals evidence of pulmonary fibrosis and some mild congestive heart failure. Improved pulmonary congestion compared to previous. Initial blood culture positive for Staphylococcus epidermidis. Follow-up blood cultures reveal no growth. Sputum culture pending. Sodium 137. Potassium 3.7. BUN 64. Creatinine 2.49. Glucose 116. Pro-calcitonin 0.33. Troponin negative 1. The patient is seen today 01/30/2022 in follow-up on the selective care unit. She is currently sitting up in bed. Awake and alert in no acute distress. Continues to maintain good O2 saturations in the 90s on 2 L/m per nasal cannula. Follow-up blood culture reveals no growth. Sputum culture reveals no growth. White count 16.2. Hemoglobin 11.1. Sodium 135. Potassium 4.0. BUN 58.. Creatinine 2.41. Glucose 112. She is continued on DuoNeb inhalations, Symbicort, Singulair. Antibiotics in the form of Zosyn. Oral diuretics. Antic oagulated with Eliquis. Objective - Vital Signs Vital signs: Vital Signs Temp 96.2 F L 01/30/22 08:00 Pulse 74 01/30/22 15:18 Resp 16 01/30/22 08:00 BP 112/68 01/30/22 08:00 Pulse Ox 94 L 01/30/22 07:20 FiO2 Intake & Output 01/29/22 01/30/22 01/30/22 18:59 06:59 18:59 Intake Total 0 Output Total 600 Balance -600 0 Weight 78.8 kg Intake: Oral 0 Output: Urine 600 Other: Voiding Method External Catheter External Catheter External Catheter - Exam GENERAL EXAM: Alert, pleasant 66-year-old female, on 2 L nasal cannula, comfortable in no apparent distress. HEAD: Normocephalic. EYES: Normal reaction of pupils, equal size. NOSE: Clear with pink turbinates. THROAT: No erythema or exudates. NECK: No masses, no JVD. CHEST: No chest wall deformity. LUNGS: Equal air entry with crackles in the bilateral bases. CVS: S1 and S2 normal with no audible murmur, regular rhythm. ABDOMEN: No hepatosplenomegaly, normal bowel sounds, no guarding or rigidity. SPINE: No scoliosis or deformity SKIN: No rashes CENTRAL NERVOUS SYSTEM: No focal deficits, tone is normal in all 4 extremities. EXTREMITIES: There is trace peripheral edema. No clubbing, no cyanosis. Peripheral pulses are intact. - Labs CBC & Chem 7: 01/30/22 11:59 01/30/22 11:59 Labs: Abnormal Lab Results - Last 24 Hours (Table) 01/29/22 01/30/22 01/30/22 Range/Units 07:39 11:59 11:59 WBC 16.2 H (3.8-10.6) k/uL RBC 3.35 L (3.80-5.40) m/uL Hgb 11.1 L (11.4-16.0) gm/dL MCV 103.3 H (80.0-100.0) fL Sodium 135 L (137-145) mmol/L BUN 58 H (7-17) mg/dL Creatinine 2.41 H (0.52-1.04) mg/dL Glucose 112 H (74-99) mg/dL Calcium 8.3 L (8.4-10.2) mg/dL Free [place] LC, Quant 11.20 H (0.33-1.94) mg/dL Free [place] LC, Quant 7.39 H (0.57-2.63) mg/dL Microbiology - Last 24 Hours (Table) 01/28/22 12:04 Blood Culture - Preliminary Blood No Growth after 48 hours 01/26/22 17:20 Blood Culture - Preliminary Blood No Growth after 72 hours Assessment and Plan Assessment: Acute exacerbation of chronic diastolic congestive heart failure Acute on chronic hypoxemic respiratory failure secondary to above along with recent Klebsiella pneumoniae on bronchial wash from 01/24/2022. Procalcitonin 0.33 Acute on chronic renal failure. Current creatinine 2.49. GFR 19 Coronary artery disease with previous cardiac catheterization and coronary stenting History of atrial fibrillation current cardiac rhythm is sinus, anticoagulated with Eliquis Chronic stage III kidney disease Hypertension Hyperlipidemia History of closed head injury with ongoing memory deficits Hypothyroidism Previous history of UTIs Previous susceptibility of the right lower extremity in 1985 Previous history of a permanent pain stimulator insertion and subsequent removal Plan: The patient was seen and evaluated Labs and medications reviewed Continue Zosyn Continue bronchodilator Continue diuretics Anticoagulated with Eliquis Home once cleared by medicine I have personally seen and examined the patient, performed the documentation and the assessment and plan as written. Number of minutes spent on the visit: 10.
[2022-01-30 19:00] LABS: Albumin 3.19 g/dL (3.80-4.90)
[2022-01-30] MEDS: SERTRALINE 100 MG TAB PO SCH (20:15)
[2022-01-30] MEDS: ALPRAZolam 0.25 MG TAB PO PRN (20:15)
[2022-01-30] MEDS: ATORVASTATIN 20 MG TAB PO SCH (20:15)
[2022-01-30] MEDS: QUEtiapine 100 MG TAB PO SCH (20:16)
[2022-01-30 22:14] LABS: Appearance,Urine Cloudy (Clear); Bacteria,Urine Rare /hpf; Bilirubin,Urine Negative (Negative); Blood,Urine Moderate (Negative); Color,Urine Light Yellow; Glucose,Urine (UA) Negative (Negative); Ketones,Urine Negative (Negative); Leukocyte Esterase,Urine Large (Negative); Mucus,Urine Rare /hpf; Nitrite,Urine Negative (Negative); PH, Urine 5.5 (5.0-8.0); Protein,Urine Trace (Negative); RBC,Urine 25 /hpf (0-5); Specific Gravity,Urine 1.016 (1.001-1.035); Squamous Epithelial Cell,Urine 9 /hpf (0-4); Urobilinogen,Urine <2.0 mg/dL (<2.0); WBC,Urine 21 /hpf (0-5)
[2022-01-31] MEDS: LEVOTHYROXINE 75 MCG TAB PO SCH (06:36)
--- NOTE | 2022-01-31 07:02 | P.PN ---
Subjective Progress Note Date: 01/31/22 Principal diagnosis: Coronary artery disease The patient is a pleasant 66-year-old female patient was known coronary artery disease and prior revascularization internal stenting as well as history of heart failure with preserved ejection fraction as well as paroxysmal atrial fib rillation and chronic kidney disease was admitted to the hospital again with shortness of breath felt to be related to mild heart failure along with pneumonia. January [id number] The patient was seen this morning. She stated she is feeling better. The shortness of breath has improved. No symptoms of chest pain or chest discomfort. She is currently on Lasix by mouth. The creatinine seems to be stable. She would like to stay one more day. I am going to monitor the patient for additional 24 hours. She was advised to get up and around. We'll continue following up with the patient 01/31/2022 The patient was seen and evaluated this morning beach she states she is feeling weak. She is slightly dizzy as well. The pressure has been soft and in the 90s. The only medication she is on which can lower her pressure is the Lasix 40 mg by mouth twice a day which I'm going to decrease to 20 mg by mouth twice a day. Beside that continue the rest of the current medical regimen and I would advise monitor the patient for additional 24 hours to make sure her pressure is stable. Objective - Vital Signs Vital signs: Vital Signs Temp 98.0 F 01/31/22 04:00 Pulse 74 01/31/22 04:00 Resp 18 01/31/22 04:00 BP 90/60 01/31/22 04:00 Pulse Ox 94 L 01/31/22 04:00 FiO2 Intake & Output 01/30/22 01/31/22 01/31/22 18:59 06:59 18:59 Intake Total 240 Output Total 900 Balance 240 -900 Weight 78.8 kg 79.6 kg Intake: Oral 240 Output: Urine 900 Other: Voiding Method External Catheter External Catheter - Constitutional General appearance: Present: no acute distress - Respiratory Respiratory: bilateral: wheezing - Cardiovascular Rhythm: regular - Labs CBC & Chem 7: 01/30/22 11:59 01/30/22 11:59 Labs: Abnormal Lab Results - Last 24 Hours (Table) 01/29/22 01/30/22 01/30/22 Range/Units 07:39 11:59 11:59 WBC 16.2 H (3.8-10.6) k/uL RBC 3.35 L (3.80-5.40) m/uL Hgb 11.1 L (11.4-16.0) gm/dL MCV 103.3 H (80.0-100.0) fL Sodium 135 L (137-145) mmol/L BUN 58 H (7-17) mg/dL Creatinine 2.41 H (0.52-1.04) mg/dL Glucose 112 H (74-99) mg/dL Calcium 8.3 L (8.4-10.2) mg/dL Albumin (PEP) 3.19 L (3.80-4.90) g/dL Nuneq-0-Addcrvrpq 0.58 H (0.10-0.40) g/dL Urine Appearance (Clear) Urine Protein (Negative) Urine Blood (Negative) Ur Leukocyte Esterase (Negative) Urine RBC (0-5) /hpf Urine WBC (0-5) /hpf Ur Squamous Epith Cells (0-4) /hpf Urine Bacteria (None) /hpf Urine Mucus (None) /hpf Free [place]iley LC, Quant 11.20 H (0.33-1.94) mg/dL Free Lambda LC, Quant 7.39 H (0.57-2.63) mg/dL 01/30/22 Range/Units 22:00 WBC (3.8-10.6) k/uL RBC (3.80-5.40) m/uL Hgb (11.4-16.0) gm/dL MCV (80.0-100.0) fL Sodium (137-145) mmol/L BUN (7-17) mg/dL Creatinine (0.52-1.04) mg/dL Glucose (74-99) mg/dL Calcium (8.4-10.2) mg/dL Albumin (PEP) (3.80-4.90) g/dL Uvezi-5-Iesolfows (0.10-0.40) g/dL Urine Appearance Cloudy H (Clear) Urine Protein Trace H (Negative) Urine Blood Moderate H (Negative) Ur Leukocyte Esterase Large H (Negative) Urine RBC 25 H (0-5) /hpf Urine WBC 21 H (0-5) /hpf Ur Squamous Epith Cells 9 H (0-4) /hpf Urine Bacteria Rare H (None) /hpf Urine Mucus Rare H (None) /hpf Free [place]iley LC, Quant (0.33-1.94) mg/dL Free Lambda LC, Quant (0.57-2.63) mg/dL Microbiology - Last 24 Hours (Table) 01/26/22 17:20 Blood Culture - Preliminary Blood No Growth after 96 hours 01/28/22 12:04 Blood Culture - Preliminary Blood No Growth after 48 hours Assessment and Plan Assessment: Assessment Heart failure with preserved ejection fraction seems to be stable Coronary artery disease seems to be stable Chronic kidney disease Margin low blood pressure Paroxysmal atrial fibrillation Plan Continue the current medical regimen Decrease the dose of Lasix by mouth Monitor the patient for additional 24 hours Follow-up with the patient
[2022-01-31] MEDS: SYMBICORT 160-4.5 MCG INHALER INHALATION SCH ×2 (09:27→20:50)
[2022-01-31] MEDS: IPRATROPIUM-ALBUTEROL 3 ML NEB INHALATION SCH ×4 (09:27→20:50)
[2022-01-31] MEDS ORDERED: METOPROLOL SUCCINATE (ER) 25 MG TAB.ER.24H PO SCH (09:30)
--- NOTE | 2022-01-31 09:38 | P.DS ---
Providers Date of admission: 01/26/22 17:30 Expected date of discharge: 01/31/22 Attending physician: Shawn Milian MD Consults: 01/26/22 16:48 Consult Physician Urgent Consulting Provider: Santiago Briseno Consult Reason/Comments: Hospital associated pneumonia, polymicrobial pneumonia Do you want consulting provider notified?: Yes 01/26/22 16:49 Consult Physician Urgent Consulting Provider: Hemanth Egan Consult Reason/Comments: Congestive heart failure Do you want consulting provider notified?: Yes 01/26/22 17:05 Consult Physician Urgent Consulting Provider: Zelda Schmitt Consult Reason/Comments: diuretic management Do you want consulting provider notified?: Yes Primary care physician: [facility] Course: Patient is a 66-year-old female with a past medical history of COPD, coronary artery disease, CK D stage III, paroxysmal atrial fibrillation, hypertension, hyperlipidemia, hypothyroidism who presents to the ED with shortness of breath. Patient was just discharged 2 days ago. On previous admission she was treated for pneumonia with IV Zosyn and was discharged on Augmentin for 7 days. She had a bronchoscopy done that grew Klebsiella pneumonia that is susceptible to Zosyn as well as Augmentin. Patient was started on Zosyn and admitted for treatment of pneumonia. She was also started on Lasix 40 mg IV BID. Pulmonology and Cardi ology was consulted. She did have one set of blood cultures that was positive for S. epidermidis. Repeat blood cultures was negative. Lasix was eventually transitioned to Lasix 40 mg PO BID. She was able to be weaned down to 2L nasal cannula. Patient was seen and examined. No acute events overnight. Patient reports continued improvement in her shortness of breath. Currently on 2LNC. She denies any lightheadedness. This morning's BP was 90/69. Cardiology decreased her Lasix from 40 mg PO BID to 20 mg PO BID. I cut down her Metoprolol from 25 mg PO QD to 12.5 mg PO QD. Nursing has been instructed to ambulate the patient. Anticipate DC home today if she is able to ambulate without difficulties in the afternoon. She will be discharged on Augmentin 875-125 mg PO BID for 10 days. She will also be discharged home on Medrol Dose pack. She is advised to continue all of her other home medications as instructed. She is advised to follow up with her PCP within 1-2 days, follow up with Cardiology and Pulmonology within 1 week of discharge. Patient verbalized understanding of the plan. Pertinent studies include CXR, Renal bladder US, EKG General: Alert and oriented, well nourished, no acute distress, patient appears chronically debilitated. Eye: EOMI, normal conjunctiva. HENT: Normocephalic, normal hearing, moist oral mucosa, no scleral icterus, no sinus tenderness. Neck: Supple, non-tender, no carotid bruits, no JVD, no lymphadenopathy. Lungs: Decreased BS BL with scattered ronchi, non-labored respiration. Heart: Normal rate, regular rhythm, no murmur, gallop or edema. Musculoskeletal: Normal range of motion and strength, no tenderness or swelling. Skin: Skin is warm, dry and pink, no rashes or lesions. Neurologic: Awake, alert, and oriented X3. Psychiatric: Cooperative, appropriate mood and affect. Discharge Diagnosis: #Multifocal pneumonia with sepsis #Acute hypoxic respiraotry failure #Acute on chronic diastolic heart failure #Gram + bacteremia #COPD on 2 L nasal cannula at home #Normocytic anemia #Atrial fibrillation #CKD stage III #Chronic back pain Chronic conditions Gout, hyperlipidemia, GERD, hypothyroidism This complex discharge took about 45 minutes to complete. Patient Condition at Discharge: Stable Plan - Discharge Summary Discharge Rx Participant: No New Discharge Prescriptions: New Budesonide-Formot 160-4.5 Mcg [Symbicort 160-4.5 Mcg Inhaler] 2 puff INHALATION RT-BID #1 each ALPRAZolam [Xanax] 0.25 mg PO HS PRN #30 tab PRN Reason: Insomnia Amoxic-Pot Clav 875-125Mg [Augmentin 875-125] 1 tab PO Q12HR 10 Days #20 tab methylPREDNISolone Dose Pack [Medrol Dose Pack] 4 mg PO DIRECTED #1 packet Metoprolol Succinate (ER) [Toprol XL] 12.5 mg PO DAILY #30 tab Continue Nitroglycerin Sl Tabs [Nitrostat] 0.4 mg SUBLINGUAL Q5M PRN PRN Reason: Chest Pain Apixaban [Eliquis] 5 mg PO BID Sertraline HCl [Zoloft] 100 mg PO HS Ipratropium-Albuterol Nebulize [Duoneb 0.5 mg-3 mg/3 ml Soln] 3 ml INHALATION RT-QID PRN PRN Reason: Shortness Of Breath Atorvastatin [Lipitor] 20 mg PO HS Levothyroxine Sodium [Synthroid] 75 mcg PO DAILY QUEtiapine [SEROquel] 100 mg PO HS Albuterol Inhaler [Ventolin Hfa Inhaler] 2 puff INHALATION RT-QID PRN PRN Reason: Shortness Of Breath Cholecalciferol [Vitamin D3 (25 Mcg = 1000 Iu)] 50 mcg PO DAILY guaiFENesin [Mucinex] 1,200 mg PO Q12HR #14 tab allopurinoL [Zyloprim] 100 mg PO BID Montelukast [Singulair] 10 mg PO DAILY Omeprazole 20 mg PO DAILY Amiodarone [Cordarone] 100 mg PO DAILY Vitamin A Acetate [Vitamin A] 10,000 unit SL DAILY Cyanocobalamin [Vitamin B-12] 500 mcg PO DAILY Potassium Chloride ER [K-Dur 10] 10 meq PO DAILY #30 tab Furosemide [Lasix] 20 mg PO BID@0900,1600 #60 tab Discontinued Metoprolol Tartrate 25 mg PO DAILY predniSONE [Deltasone] 40 mg PO DAILY Discharge Medication List Nitroglycerin Sl Tabs [Nitrostat] 0.4 mg SUBLINGUAL Q5M PRN 12/29/13 [History] Apixaban [Eliquis] 5 mg PO BID 12/22/18 [History] Sertraline HCl [Zoloft] 100 mg PO HS 12/22/18 [History] Ipratropium-Albuterol Nebulize [Duoneb 0.5 mg-3 mg/3 ml Soln] 3 ml INHALATION RT-QID PRN 02/26/19 [History] Atorvastatin [Lipitor] 20 mg PO HS 03/09/19 [History] Levothyroxine Sodium [Synthroid] 75 mcg PO DAILY 06/17/19 [History] QUEtiapine [SEROquel] 100 mg PO HS 06/17/19 [History] Albuterol Inhaler [Ventolin Hfa Inhaler] 2 puff INHALATION RT-QID PRN 10/09/20 [History] Montelukast [Singulair] 10 mg PO DAILY 10/09/20 [History] Omeprazole 20 mg PO DAILY 10/09/20 [History] allopurinoL [Zyloprim] 100 mg PO BID 10/09/20 [History] Amiodarone [Cordarone] 100 mg PO DAILY 01/17/22 [History] Cholecalciferol [Vitamin D3 (25 Mcg = 1000 Iu)] 50 mcg PO DAILY 01/17/22 [History] Cyanocobalamin [Vitamin B-12] 500 mcg PO DAILY 01/17/22 [History] Vitamin A Acetate [Vitamin A] 10,000 unit SL DAILY 01/17/22 [History] Furosemide [Lasix] 20 mg PO BID@0900,1600 #60 tab 01/24/22 [Rx] Potassium Chloride ER [K-Dur 10] 10 meq PO DAILY #30 tab 01/24/22 [Rx] guaiFENesin [Mucinex] 1,200 mg PO Q12HR #14 tab 01/24/22 [Rx] ALPRAZolam [Xanax] 0.25 mg PO HS PRN #30 tab 01/31/22 [Rx] Amoxic-Pot Clav 875-125Mg [Augmentin 875-125] 1 tab PO Q12HR 10 Days #20 tab 01/31/22 [Rx] Budesonide-Formot 160-4.5 Mcg [Symbicort 160-4.5 Mcg Inhaler] 2 puff INHALATION RT-BID #1 each 01/31/22 [Rx] Metoprolol Succinate (ER) [Toprol XL] 12.5 mg PO DAILY #30 tab 01/31/22 [Rx] methylPREDNISolone Dose Pack [Medrol Dose Pack] 4 mg PO DIRECTED #1 packet 01/31/22 [Rx] Follow up Appointment(s)/Referral(s): Mai Doss MD [Primary Care Provider] - 1-2 days [facility], [NON-STAFF] - Care,[facility] [NON-STAFF] - Pola Stockton MD [STAFF PHYSICIAN] - 1 Week Dwayne Iniguez DO [Doctor of Osteopathic Medicine] - 1 Week Activity/Diet/Wound Care/Special Instructions: Diet: Low salt FU PCP within 1-2 days of DC. FU with Cardiology within 1 week of DC. FU with pulmonology within 1 week of DC. Take all medication as advised. Come back to the ED for worsening CP, SOB, palpitations or lightheadedness. Discharge/Stand Alone Forms: Who Do I Call?, Community Resources, Personal Operations Consultant Discharge Disposition: HOME SELF-CARE
[2022-01-31] MEDS: PANTOPRAZOLE 40 MG TABLET PO SCH (10:18)
[2022-01-31] MEDS: CHOLECALCIFEROL 25 MCG (1000 IU) TABLET PO SCH (10:18)
[2022-01-31] MEDS: CYANOCOBALAMIN 500 MCG TAB PO SCH (10:19)
[2022-01-31] MEDS: HYDROcodone/APAP 5-325MG 1 EACH TAB PO PRN (10:19)
[2022-01-31] MEDS: MONTELUKAST 10 MG TAB PO SCH (10:19)
[2022-01-31] MEDS: allopurinoL 100 MG TAB PO SCH ×2 (10:19→19:47)
[2022-01-31] MEDS: APIXABAN 5 MG TAB PO SCH ×2 (10:19→19:47)
[2022-01-31] MEDS: FUROSEMIDE 20 MG TAB PO SCH ×2 (10:19→16:59)
[2022-01-31] MEDS: VITAMIN A 10,000 UNIT (3000 MCG) CAPSULE PO SCH (10:20)
[2022-01-31] MEDS: AMIODARONE 100 MG TAB PO SCH (10:21)
[2022-01-31] MEDS: SODIUM FERRIC GLUCONAT-SUCROSE 125 MG in SODIUM CHLORIDE 0.9% 100 ML IVPB SCH (10:21)
[2022-01-31] MEDS: guaiFENesin 600 MG TABLET.ER PO SCH ×2 (10:25→19:47)
--- NOTE | 2022-01-31 11:23 | P.PN ---
Subjective Patient is seen for follow-up for acute kidney injury on top of chronic kidney disease. Renal function is fairly stable and creatinine is staying at about 2.4 mg/dL No significant complaints today. Lasix switched to oral. Objective - Vital Signs Vital signs: Vital Signs Temp 98.0 F 01/31/22 08:39 Pulse 108 H 01/31/22 09:45 Resp 18 01/31/22 08:39 BP 103/72 01/31/22 08:39 Pulse Ox 96 01/31/22 08:39 FiO2 Intake & Output 01/30/22 01/31/22 01/31/22 18:59 06:59 18:59 Intake Total 240 780 Output Total 900 550 Balance 240 -900 230 Weight 78.8 kg 79.6 kg Intake: Oral 240 780 Output: Urine 900 550 Other: Voiding Method External Catheter External Catheter - Exam Patient is awake, comfortable, no acute distress Currently in the restroom No edema noted Anus exam grossly intact. - Labs CBC & Chem 7: 01/30/22 11:59 01/30/22 11:59 Labs: Abnormal Lab Results - Last 24 Hours (Table) 01/29/22 01/30/22 01/30/22 Range/Units 07:39 11:59 11:59 WBC 16.2 H (3.8-10.6) k/uL RBC 3.35 L (3.80-5.40) m/uL Hgb 11.1 L (11.4-16.0) gm/dL MCV 103.3 H (80.0-100.0) fL Sodium 135 L (137-145) mmol/L BUN 58 H (7-17) mg/dL Creatinine 2.41 H (0.52-1.04) mg/dL Glucose 112 H (74-99) mg/dL Calcium 8.3 L (8.4-10.2) mg/dL Albumin (PEP) 3.19 L (3.80-4.90) g/dL Axkcl-7-Qzfhkbrmv 0.58 H (0.10-0.40) g/dL Urine Appearance (Clear) Urine Protein (Negative) Urine Blood (Negative) Ur Leukocyte Esterase (Negative) Urine RBC (0-5) /hpf Urine WBC (0-5) /hpf Ur Squamous Epith Cells (0-4) /hpf Urine Bacteria (None) /hpf Urine Mucus (None) /hpf Free [place] LC, Quant 11.20 H (0.33-1.94) mg/dL Free Lambda LC, Quant 7.39 H (0.57-2.63) mg/dL 01/30/22 Range/Units 22:00 WBC (3.8-10.6) k/uL RBC (3.80-5.40) m/uL Hgb (11.4-16.0) gm/dL MCV (80.0-100.0) fL Sodium (137-145) mmol/L BUN (7-17) mg/dL Creatinine (0.52-1.04) mg/dL Glucose (74-99) mg/dL Calcium (8.4-10.2) mg/dL Albumin (PEP) (3.80-4.90) g/dL Nbqnx-3-Hqnkiazgf (0.10-0.40) g/dL Urine Appearance Cloudy H (Clear) Urine Protein Trace H (Negative) Urine Blood Moderate H (Negative) Ur Leukocyte Esterase Large H (Negative) Urine RBC 25 H (0-5) /hpf Urine WBC 21 H (0-5) /hpf Ur Squamous Epith Cells 9 H (0-4) /hpf Urine Bacteria Rare H (None) /hpf Urine Mucus Rare H (None) /hpf Free [place] LC, Quant (0.33-1.94) mg/dL Free Lambda LC, Quant (0.57-2.63) mg/dL Microbiology - Last 24 Hours (Table) 01/26/22 17:20 Blood Culture - Preliminary Blood No Growth after 96 hours 01/28/22 12:04 Blood Culture - Preliminary Blood No Growth after 48 hours Assessment and Plan Assessment: 1. Acute kidney injury secondary to ATN secondary to cardiorenal syndrome. Creatinine 2.24 on admission - 2.28 yesterday. No hydronephrosis noted on kidney ultrasound. Right kidney atrophic. Left kidney not properly visualized. 2. Chronic kidney disease stage IV with baseline creatinine in the range of 1.5-2 secondary to nephrosclerosis. Serologies have been negative in the past. Elevated light chain levels noted in April 2019. 3. Acute on chronic diastolic CHF with moderate mitral regurgitation. 4. Coronary artery disease with prior stenting. 5. History of A. fib. 6. Anemia of chronic kidney disease. Iron deficiency noted. 7. Pneumonia on antibiotics. Pulmonology following. 8. Staph epi bacteremia. Likely contaminant. 9. Hypokalemia from diuresis. Replaced. Better. Plan: Continue with current dose of oral diuretics Follow-up as outpatient Avoid nephrotoxic agents.
[2022-01-31] MEDS ORDERED: METOPROLOL TARTRATE 12.5 MG TAB PO STA (12:07)
[2022-01-31] MEDS: PIPERACILLIN-TAZOBACTAM 3.375 GM in SODIUM CHLORIDE 0.9% 100 ML IVPB SCH (12:28)
--- NOTE | 2022-01-31 13:49 | P.PN ---
Subjective Progress Note Date: 01/31/22 Principal diagnosis: Shortness of breath. This is a pleasant 66-year-old female patient, presents to the hospital because of worsening shortness of breath. No chest pain. She is known to have COPD. She isn't a smoker. She also has coronary artery disease and chronic stage III kidney disease and history of paroxysmal fibrillation and currently her rhythm is sinus. She has hypertension, hyperlipidemia, hypothyroidism. She has also a history of closed head injury. She was admitted here 01/17 through 01/24/2022 for a CHF exacerbation along with suspected bronchitis/pneumonia. She had undergone bronchoscopy with BAL on 01/24/2022 that showed evidence of Klebsiella pneumoniae and Inga. She had been discharged home on Augmentin, prednisone taper, oral diuretics. She is anticoagulated with Eliquis. He again presented to the emergency room on 01/26/2022 with complaints of worsening shortness of breath. Chest x-ray shows multifocal airspace opacities with underlying congestive heart failure and cardiomegaly. White count 12.0. Hemoglobin 10.2. Sodium 140. Potassium 3.4. BUN 66. Creatinine 2.34. Glucose 162. Butler virus by PCR negative. ProBNP 10,500. She is currently on IV diuretics. Procalcitonin pending. She is seen today in consultation in the emergency department. Currently sitting up on the stretcher. Awake and alert in no acute distress. Continue O2 saturations in the mid 90s on 3 L/m per nasal cannula. Afebrile. Currently in sinus rhythm. The patient is seen today 01/28/2022 in follow-up on the selective care unit. She is currently sitting up in bed. Awake and alert in no acute distress. Her is at the bedside. She is maintaining good O2 saturations in the 90s on 4 L/m per nasal cannula. She's afebrile. Hemodynamically stable. Follow-up chest x-ray reveals evidence of pulmonary fibrosis and some mild congestive heart failure. Improved pulmonary congestion compared to previous. Initial blood culture positive for Staphylococcus epidermidis. Follow-up blood cultures reveal no growth. Sputum culture pending. Sodium 137. Potassium 3.7. BUN 64. Creatinine 2.49. Glucose 116. Pro-calcitonin 0.33. Troponin negative 1. Progress note dated 01/29/2022. The patient is seen today in room 378. She's not receiving any IV fluids. She is on 2 L of oxygen. She had a bronchoscopy on January 24, which did reveal Klebsiella pneumoniae. We are recommending a flutter valve for her as well. She has stage II or moderate emphysema, with an FEV1 that is 68%. 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 White count 16.4, hemoglobin 11.1, hematocrit 35.4, and platelet count 285,000. Sodium 138, potassium 4.1, chlorides 100, CO2 25, anion gap 13, BUN 57, creatinine 2.28. Chest x-ray from January 28, is improved compared to prior chest x-ray. Progress note dated 01/31/2022. The patient is again seen today in room 378. Patient is doing very well. She is on 2 L. She may be discharged home today. We'll leave that up to the primary service, which in this case, is [facility] physicians. The patient complains of shortness of breath, chest tightness, cough, wheezing, or phlegm production. She denies any chest pain or chest pressure. No fever or chills. No GI or complaints. Objective - Vital Signs Vital signs: Vital Signs Temp 97.8 F 01/31/22 11:57 Pulse 68 01/31/22 12:35 Resp 20 01/31/22 11:57 BP 99/61 01/31/22 11:57 Pulse Ox 93 L 01/31/22 11:57 FiO2 Intake & Output 01/30/22 01/31/22 01/31/22 18:59 06:59 18:59 Intake Total 240 1380 Output Total 900 550 Balance 240 -900 830 Weight 78.8 kg 79.6 kg Intake: Oral 240 1380 Output: Urine 900 550 Other: Voiding Method External Catheter External Catheter External Catheter - Exam No acute distress, oriented 3. Currently on 2 L of oxygen. No conversational dyspnea or use of accessory muscles. HEENT examination is grossly unremarkable. Neck supple. Full range of motion. No adenopathy thyromegaly or neck vein distention. Cardiovascular examination reveals regular rhythm rate. S1-S2 normal. No S3 or S4. No discernible murmur noted. Heart rate 68 bpm. Lungs reveal scattered bilateral rhonchi, and expiratory wheezes. No crackles. Breath sounds are equal bilaterally. 2 L saturation is 95 %. Abdomen soft bowel sounds are heard. No masses or tenderness. Extremities are intact. No cyanosis clubbing or edema. Skin is without rash or lesion. Neurologic examination is brief but nonfocal. - Labs CBC & Chem 7: 01/30/22 11:59 01/30/22 11:59 Labs: Abnormal Lab Results - Last 24 Hours (Table) 01/29/22 01/30/22 Range/Units 07:39 22:00 Albumin (PEP) 3.19 L (3.80-4.90) g/dL Foybr-7-Okyhxymoa 0.58 H (0.10-0.40) g/dL Urine Appearance Cloudy H (Clear) Urine Protein Trace H (Negative) Urine Blood Moderate H (Negative) Ur Leukocyte Esterase Large H (Negative) Urine RBC 25 H (0-5) /hpf Urine WBC 21 H (0-5) /hpf Ur Squamous Epith Cells 9 H (0-4) /hpf Urine Bacteria Rare H (None) /hpf Urine Mucus Rare H (None) /hpf Microbiology - Last 24 Hours (Table) 01/26/22 17:20 Blood Culture - Preliminary Blood No Growth after 96 hours 01/28/22 12:04 Blood Culture - Preliminary Blood No Growth after 48 hours Assessment and Plan Assessment: Acute exacerbation of chronic diastolic congestive heart failure. Acute on chronic hypoxemic respiratory failure secondary to above along with recent Klebsiella pneumoniae on bronchial wash from 01/24/2022. Acute on chronic renal failure. Coronary artery disease with previous cardiac catheterization and coronary stenting. History of atrial fibrillation. Chronic stage III kidney disease. Hypertension. Hyperlipidemia. 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 Hypothyroidism. Previous history of UTIs. Previous history of a permanent pain stimulator insertion and subsequent removal. Plan: Plan dated 01/29/2022. The patient continues on Zosyn. We also add some Symbicort to her regimen. In addition, the patient is given a flutter valve, with instructions, to help her with her secretions and mucous. We went back to the office notes, and saw that the patient has stage II or moderate emphysema, with an FEV1 that is 68% of predicted. The patient's on 2 L. The patient is not requiring any IV fluids. Labs, x-rays, and medications are reviewed. Prognosis is guarded. Plan dated 01/31/2022. The patient's currently on 2 L. Saturations are excellent. She is not manifesting any signs or symptoms of respiratory distress or difficulty. The patient could possibly be discharged home today. We'll leave that up to the primary service. The patient does have stage II or moderate emphysema, with an FEV1 that is 68% of predicted. The patient not receiving any IV fluids. Labs, x-rays, medications are all reviewed. Prognosis is guarded. She'll need to follow-up with my partner after discharge for her lungs. Time with Patient: Less than 30
[2022-01-31] MEDS ORDERED: MORPHINE SULFATE 2 MG/ML SYRINGE IVP STA (18:00)
[2022-01-31] MEDS: QUEtiapine 100 MG TAB PO SCH (19:46)
[2022-01-31] MEDS: ATORVASTATIN 20 MG TAB PO SCH (19:47)
[2022-01-31] MEDS: ALPRAZolam 0.25 MG TAB PO PRN (19:47)
[2022-01-31] MEDS: CYCLOBENZAPRINE 5 MG TAB PO PRN (19:47)
[2022-01-31] MEDS: SERTRALINE 100 MG TAB PO SCH (19:47)
[2022-02-01] MEDS: LEVOTHYROXINE 75 MCG TAB PO SCH (06:45)
--- NOTE | 2022-02-01 06:57 | P.PN ---
Subjective Progress Note Date: 02/01/22 Principal diagnosis: Coronary artery disease The patient is a pleasant 66-year-old female patient was known coronary artery disease and prior revascularization internal stenting as well as history of heart failure with preserved ejection fraction as well as paroxysmal atrial fib rillation and chronic kidney disease was admitted to the hospital again with shortness of breath felt to be related to mild heart failure along with pneumonia. January [id number] The patient was seen this morning. She stated she is feeling better. The shortness of breath has improved. No symptoms of chest pain or chest discomfort. She is currently on Lasix by mouth. The creatinine seems to be stable. She would like to stay one more day. I am going to monitor the patient for additional 24 hours. She was advised to get up and around. We'll continue following up with the patient 01/31/2022 The patient was seen and evaluated this morning beach she states she is feeling weak. She is slightly dizzy as well. The pressure has been soft and in the 90s. The only medication she is on which can lower her pressure is the Lasix 40 mg by mouth twice a day which I'm going to decrease to 20 mg by mouth twice a day. Beside that continue the rest of the current medical regimen and I would advise monitor the patient for additional 24 hours to make sure her pressure is stable. February [id number] The patient was seen and examined this morning. Overall she is feeling better indeterminable shortness of breath. She reports no pain in the chest. He is euvolemic on examination today as well. Hemodynamically she is stable. Currently she is on oral diuretics. She has been able to get up and around on her own and without any assistance. From a cardiovascular standpoint of view, the patient potentially can be discharged home later on today to either home or extended care facility Objective - Vital Signs Vital signs: Vital Signs Temp 97.9 F 02/01/22 04:00 Pulse 95 02/01/22 04:00 Resp 20 02/01/22 04:00 BP 103/69 02/01/22 04:00 Pulse Ox 96 02/01/22 04:00 FiO2 Intake & Output 01/31/22 01/31/22 02/01/22 06:59 18:59 06:59 Intake Total 1620 Output Total 900 650 400 Balance -900 970 -400 Weight 79.6 kg Intake: Oral 1620 Output: Urine 900 650 400 Other: Voiding Method External Catheter Toilet Toilet - Constitutional General appearance: Present: no acute distress - Respiratory Respiratory: bilateral: CTA - Cardiovascular Rhythm: regular Heart sounds: normal: S1, S2 Abnormal Heart Sounds: Present: systolic murmur - Labs CBC & Chem 7: 01/30/22 11:59 01/30/22 11:59 Labs: Microbiology - Last 24 Hours (Table) 01/26/22 17:20 Blood Culture - Preliminary Blood No Growth after 120 hours 01/28/22 12:04 Blood Culture - Preliminary Blood No Growth after 72 hours Assessment and Plan Assessment: Assessment Heart failure with preserved ejection fraction seems to be stable Coronary artery disease seems to be stable Chronic kidney disease Margin low blood pressure Paroxysmal atrial fibrillation Plan Continue the current medical regimen Possible discharge later on today
[2022-02-01 07:03] LABS: Calcium 8.4 mg/dL (8.4-10.2); Magnesium 2.1 mg/dL (1.6-2.3); Potassium 3.3 mmol/L (3.5-5.1)
[2022-02-01] MEDS ORDERED: POTASSIUM CHLORIDE ER 20 MEQ TAB.ER PO STA (07:39)
[2022-02-01 07:42] VITALS: RESP 18
[2022-02-01] MEDS: IPRATROPIUM-ALBUTEROL 3 ML NEB INHALATION SCH ×2 (08:08→11:41)
[2022-02-01] MEDS: SYMBICORT 160-4.5 MCG INHALER INHALATION SCH (08:08)
[2022-02-01] MEDS ORDERED: METOPROLOL TARTRATE 25 MG TAB PO SCH (09:00)
--- NOTE | 2022-02-01 09:54 | P.PN ---
Subjective Progress Note Date: 02/01/22 Principal diagnosis: Shortness of breath. This is a pleasant 66-year-old female patient, presents to the hospital because of worsening shortness of breath. No chest pain. She is known to have COPD. She isn't a smoker. She also has coronary artery disease and chronic stage III kidney disease and history of paroxysmal fibrillation and currently her rhythm is sinus. She has hypertension, hyperlipidemia, hypothyroidism. She has also a history of closed head injury. She was admitted here 01/17 through 01/24/2022 for a CHF exacerbation along with suspected bronchitis/pneumonia. She had undergone bronchoscopy with BAL on 01/24/2022 that showed evidence of Klebsiella pneumoniae and Inga. She had been discharged home on Augmentin, prednisone taper, oral diuretics. She is anticoagulated with Eliquis. He again presented to the emergency room on 01/26/2022 with complaints of worsening shortness of breath. Chest x-ray shows multifocal airspace opacities with underlying congestive heart failure and cardiomegaly. White count 12.0. Hemoglobin 10.2. Sodium 140. Potassium 3.4. BUN 66. Creatinine 2.34. Glucose 162. Butler virus by PCR negative. ProBNP 10,500. She is currently on IV diuretics. Procalcitonin pending. She is seen today in consultation in the emergency department. Currently sitting up on the stretcher. Awake and alert in no acute distress. Continue O2 saturations in the mid 90s on 3 L/m per nasal cannula. Afebrile. Currently in sinus rhythm. The patient is seen today 01/28/2022 in follow-up on the selective care unit. She is currently sitting up in bed. Awake and alert in no acute distress. Her is at the bedside. She is maintaining good O2 saturations in the 90s on 4 L/m per nasal cannula. She's afebrile. Hemodynamically stable. Follow-up chest x-ray reveals evidence of pulmonary fibrosis and some mild congestive heart failure. Improved pulmonary congestion compared to previous. Initial blood culture positive for Staphylococcus epidermidis. Follow-up blood cultures reveal no growth. Sputum culture pending. Sodium 137. Potassium 3.7. BUN 64. Creatinine 2.49. Glucose 116. Pro-calcitonin 0.33. Troponin negative 1. Progress note dated 01/29/2022. The patient is seen today in room 378. She's not receiving any IV fluids. She is on 2 L of oxygen. She had a bronchoscopy on January 24, which did reveal Klebsiella pneumoniae. We are recommending a flutter valve for her as well. She has stage II or moderate emphysema, with an FEV1 that is 68%. 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 White count 16.4, hemoglobin 11.1, hematocrit 35.4, and platelet count 285,000. Sodium 138, potassium 4.1, chlorides 100, CO2 25, anion gap 13, BUN 57, creatinine 2.28. Chest x-ray from January 28, is improved compared to prior chest x-ray. Progress note dated 01/31/2022. The patient is again seen today in room 378. Patient is doing very well. She is on 2 L. She may be discharged home today. We'll leave that up to the primary service, which in this case, is [facility] physicians. The patient complains of shortness of breath, chest tightness, cough, wheezing, or phlegm production. She denies any chest pain or chest pressure. No fever or chills. No GI or complaints. Progress note dated 02/01/2022. The patient was to be discharged yesterday. She seen again today in room 378. She continues on oxygen at 2 L. Not sure why the patient was not discharged. The patient doesn't know why she was not discharged either. The patient is stable from the pulmonary standpoint. She denies any significant shortness of breath, chest tightness, cough, wheezing, or phlegm production. Laboratory data today includes a sodium 136, potassium 3.3, chlorides 101, CO2 26, anion gap 9, BUN 48, and creatinine 2.42. Objective - Vital Signs Vital signs: Vital Signs Temp 97.8 F 02/01/22 07:40 Pulse 76 02/01/22 08:20 Resp 18 02/01/22 07:40 BP 91/60 02/01/22 07:40 Pulse Ox 94 L 02/01/22 07:40 FiO2 Intake & Output 01/31/22 02/01/22 02/01/22 18:59 06:59 18:59 Intake Total 1620 125 Output Total 650 400 125 Balance 970 -400 0 Intake: Oral 1620 125 Output: Urine 650 400 125 Other: Voiding Method Toilet Toilet - Exam No acute distress, oriented 3. Currently on 2 L of oxygen. No conversational dyspnea or use of accessory muscles. HEENT examination is grossly unremarkable. Neck supple. Full range of motion. No adenopathy thyromegaly or neck vein distention. Cardiovascular examination reveals regular rhythm rate. S1-S2 normal. No S3 or S4. No discernible murmur noted. Heart rate 76 bpm. Lungs reveal scattered bilateral rhonchi, and expiratory wheezes. No crackles. Breath sounds are equal bilaterally. 2 L saturation is 94%. Abdomen soft bowel sounds are heard. No masses or tenderness. Extremities are intact. No cyanosis clubbing or edema. Skin is without rash or lesion. Neurologic examination is brief but nonfocal. - Labs CBC & Chem 7: 01/30/22 11:59 02/01/22 06:00 Labs: Abnormal Lab Results - Last 24 Hours (Table) 02/01/22 Range/Units 06:00 Sodium 136 L (137-145) mmol/L Potassium 3.3 L (3.5-5.1) mmol/L BUN 48 H (7-17) mg/dL Creatinine 2.42 H (0.52-1.04) mg/dL Glucose 105 H (74-99) mg/dL Microbiology - Last 24 Hours (Table) 01/26/22 17:20 Blood Culture - Preliminary Blood No Growth after 120 hours 01/28/22 12:04 Blood Culture - Preliminary Blood No Growth after 72 hours Assessment and Plan Assessment: Acute exacerbation of chronic diastolic congestive heart failure. Acute on chronic hypoxemic respiratory failure secondary to above along with recent Klebsiella pneumoniae on bronchial wash from 01/24/2022. Acute on chronic renal failure. Coronary artery disease with previous cardiac catheterization and coronary stenting. History of atrial fibrillation. Chronic stage III kidney disease. Hypertension. Hyperlipidemia. 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 Hypothyroidism. Previous history of UTIs. Previous history of a permanent pain stimulator insertion and subsequent removal. Plan: Plan dated 01/29/2022. The patient continues on Zosyn. We also add some Symbicort to her regimen. In addition, the patient is given a flutter valve, with instructions, to help her with her secretions and mucous. We went back to the office notes, and saw that the patient has stage II or moderate emphysema, with an FEV1 that is 68% of predicted. The patient's on 2 L. The patient is not requiring any IV fluids. Labs, x-rays, and medications are reviewed. Prognosis is guarded. Plan dated 01/31/2022. The patient's currently on 2 L. Saturations are excellent. She is not manifesting any signs or symptoms of respiratory distress or difficulty. The patient could possibly be discharged home today. We'll leave that up to the primary service. The patient does have stage II or moderate emphysema, with an FEV1 that is 68% of predicted. The patient not receiving any IV fluids. Labs, x-rays, medications are all reviewed. Prognosis is guarded. She'll need to follow-up with my partner after discharge for her lungs. Plan dated 02/01/2022. The patient continues on 2 L. Saturations are excellent. From the pulmonary standpoint, the patient could be discharged. The patient's renal functions a bit worse today. Not sure why she wasn't discharged yesterday, as it was a discharge order in the chart. Anyway, labs, x-rays, and medications are reviewed. The patient will follow-up with my partner post discharge. The patient does have stage II/moderate COPD, most consistent with emphysema, with an FEV1 percent that is 68. Time with Patient: Less than 30
--- NOTE | 2022-02-01 10:04 | P.DS ---
Providers Date of admission: 01/26/22 17:30 Expected date of discharge: 02/01/22 Attending physician: Shawn Milian MD Consults: 01/26/22 16:48 Consult Physician Urgent Consulting Provider: Santiago Briseno Consult Reason/Comments: Hospital associated pneumonia, polymicrobial pneumonia Do you want consulting provider notified?: Yes 01/26/22 16:49 Consult Physician Urgent Consulting Provider: Hemanth Egan Consult Reason/Comments: Congestive heart failure Do you want consulting provider notified?: Yes 01/26/22 17:05 Consult Physician Urgent Consulting Provider: Zelda Schmitt Consult Reason/Comments: diuretic management Do you want consulting provider notified?: Yes Primary care physician: [facility] Course: Patient is a 66-year-old female with a past medical history of COPD, coronary artery disease, CK D stage III, paroxysmal atrial fibrillation, hypertension, hyperlipidemia, hypothyroidism who presents to the ED with shortness of breath. Patient was just discharged 2 days ago. On previous admission she was treated for pneumonia with IV Zosyn and was discharged on Augmentin for 7 days. She had a bronchoscopy done that grew Klebsiella pneumonia that is susceptible to Zosyn as well as Augmentin. Patient was started on Zosyn and admitted for treatment of pneumonia. She was also started on Lasix 40 mg IV BID. Pulmonology and Card iology was consulted. She did have one set of blood cultures that was positive for S. epidermidis. Repeat blood cultures was negative. Lasix was eventually transitioned to Lasix 40 mg PO BID. She was able to be weaned down to 2L nasal cannula. Patient was seen and examined. No acute events overnight. Patient reports continued improvement in her shortness of breath. Currently on 2LNC. She denies any lightheadedness. This morning's BP was 91/60. Cardiology decreased her Lasix from 40 mg PO BID to 20 mg PO BID. Patient is able to ambulate comfortably without difficulties or lightheadedness. Yesterday, she went back into AFib with HR as high as 130s and she was switched back to Metoprolol 25 mg PO QD. Her potassium is 3.3 today which will be replaced prior to discharge. She will be discharged on Augmentin 875-125 mg PO BID for 10 days. She will also be discharged home on Medrol Dose pack. She is advised to continue all of her other home medications as instructed. She is advised to follow up with her PCP within 1-2 days, follow up with Cardiology and Pulmonology within 1 week of discharge. Patient verbalized understanding of the plan. Pertinent studies include CXR, Renal bladder US, EKG General: Alert and oriented, well nourished, no acute distress, patient appears chronically debilitated. Eye: EOMI, normal conjunctiva. HENT: Normocephalic, normal hearing, moist oral mucosa, no scleral icterus, no sinus tenderness. Neck: Supple, non-tender, no carotid bruits, no JVD, no lymphadenopathy. Lungs: Decreased BS BL with scattered ronchi, non-labored respiration. Heart: Normal rate, regular rhythm, no murmur, gallop or edema. Musculoskeletal: Normal range of motion and strength, no tenderness or swelling. Skin: Skin is warm, dry and pink, no rashes or lesions. Neurologic: Awake, alert, and oriented X3. Psychiatric: Cooperative, appropriate mood and affect. Discharge Diagnosis: #Multifocal pneumonia with sepsis #Acute hypoxic respiraotry failure #Acute on chronic diastolic heart failure #Gram + bacteremia #COPD on 2 L nasal cannula at home #Normocytic anemia #Atrial fibrillation #CKD stage III #Chronic back pain #Hypokalemia Chronic conditions Gout, hyperlipidemia, GERD, hypothyroidism This complex discharge took about 45 minutes to complete. Patient Condition at Discharge: Stable Plan - Discharge Summary Discharge Rx Participant: No New Discharge Prescriptions: New Budesonide-Formot 160-4.5 Mcg [Symbicort 160-4.5 Mcg Inhaler] 2 puff INHALATION RT-BID #1 each ALPRAZolam [Xanax] 0.25 mg PO HS PRN 30 Days #30 tab PRN Reason: Anxiety Amoxic-Pot Clav 875-125Mg [Augmentin 875-125] 1 tab PO Q12HR 10 Days #20 tab methylPREDNISolone Dose Pack [Medrol Dose Pack] 4 mg PO DIRECTED #1 packet Metoprolol Tartrate [Lopressor] 25 mg PO DAILY tab Continue Nitroglycerin Sl Tabs [Nitrostat] 0.4 mg SUBLINGUAL Q5M PRN PRN Reason: Chest Pain Apixaban [Eliquis] 5 mg PO BID Sertraline HCl [Zoloft] 100 mg PO HS Ipratropium-Albuterol Nebulize [Duoneb 0.5 mg-3 mg/3 ml Soln] 3 ml INHALATION RT-QID PRN PRN Reason: Shortness Of Breath Atorvastatin [Lipitor] 20 mg PO HS Levothyroxine Sodium [Synthroid] 75 mcg PO DAILY QUEtiapine [SEROquel] 100 mg PO HS Albuterol Inhaler [Ventolin Hfa Inhaler] 2 puff INHALATION RT-QID PRN PRN Reason: Shortness Of Breath Cholecalciferol [Vitamin D3 (25 Mcg = 1000 Iu)] 50 mcg PO DAILY guaiFENesin [Mucinex] 1,200 mg PO Q12HR #14 tab allopurinoL [Zyloprim] 100 mg PO BID Montelukast [Singulair] 10 mg PO DAILY Omeprazole 20 mg PO DAILY Amiodarone [Cordarone] 100 mg PO DAILY Vitamin A Acetate [Vitamin A] 10,000 unit SL DAILY Cyanocobalamin [Vitamin B-12] 500 mcg PO DAILY Potassium Chloride ER [K-Dur 10] 10 meq PO DAILY #30 tab Furosemide [Lasix] 20 mg PO BID@0900,1600 #60 tab Discontinued Metoprolol Tartrate 25 mg PO DAILY predniSONE [Deltasone] 40 mg PO DAILY Discharge Medication List Nitroglycerin Sl Tabs [Nitrostat] 0.4 mg SUBLINGUAL Q5M PRN 12/29/13 [History] Apixaban [Eliquis] 5 mg PO BID 12/22/18 [History] Sertraline HCl [Zoloft] 100 mg PO HS 12/22/18 [History] Ipratropium-Albuterol Nebulize [Duoneb 0.5 mg-3 mg/3 ml Soln] 3 ml INHALATION RT-QID PRN 02/26/19 [History] Atorvastatin [Lipitor] 20 mg PO HS 03/09/19 [History] Levothyroxine Sodium [Synthroid] 75 mcg PO DAILY 06/17/19 [History] QUEtiapine [SEROquel] 100 mg PO HS 06/17/19 [History] Albuterol Inhaler [Ventolin Hfa Inhaler] 2 puff INHALATION RT-QID PRN 10/09/20 [History] Montelukast [Singulair] 10 mg PO DAILY 10/09/20 [History] Omeprazole 20 mg PO DAILY 10/09/20 [History] allopurinoL [Zyloprim] 100 mg PO BID 10/09/20 [History] Amiodarone [Cordarone] 100 mg PO DAILY 01/17/22 [History] Cholecalciferol [Vitamin D3 (25 Mcg = 1000 Iu)] 50 mcg PO DAILY 01/17/22 [History] Cyanocobalamin [Vitamin B-12] 500 mcg PO DAILY 01/17/22 [History] Vitamin A Acetate [Vitamin A] 10,000 unit SL DAILY 01/17/22 [History] Furosemide [Lasix] 20 mg PO BID@0900,1600 #60 tab 01/24/22 [Rx] Potassium Chloride ER [K-Dur 10] 10 meq PO DAILY #30 tab 01/24/22 [Rx] guaiFENesin [Mucinex] 1,200 mg PO Q12HR #14 tab 01/24/22 [Rx] Amoxic-Pot Clav 875-125Mg [Augmentin 875-125] 1 tab PO Q12HR 10 Days #20 tab 01/31/22 [Rx] Budesonide-Formot 160-4.5 Mcg [Symbicort 160-4.5 Mcg Inhaler] 2 puff INHALATION RT-BID #1 each 01/31/22 [Rx] methylPREDNISolone Dose Pack [Medrol Dose Pack] 4 mg PO DIRECTED #1 packet 01/31/22 [Rx] ALPRAZolam [Xanax] 0.25 mg PO HS PRN 30 Days #30 tab 02/01/22 [Rx] Metoprolol Tartrate [Lopressor] 25 mg PO DAILY tab 02/01/22 [Rx] Follow up Appointment(s)/Referral(s): Pola Stockton MD [STAFF PHYSICIAN] - 02/12/22 10:15 am () Mai Doss MD [Primary Care Provider] - 1-2 days (call office when open to make follow up appointment) Dwayne Iniguez DO [Doctor of Osteopathic Medicine] - 1 Week (call office when open to make follow up appointment) [facility], [NON-STAFF] - Care,[facility] [NON-STAFF] - Patient Instructions/Handouts: Viral Pneumonia (DC) Activity/Diet/Wound Care/Special Instructions: Diet: Low salt FU PCP within 1-2 days of DC. FU with Cardiology within 1 week of DC. FU with pulmonology within 1 week of DC. Take all medication as advised. Come back to the ED for worsening CP, SOB, palpitations or lightheadedness. Discharge/Stand Alone Forms: Who Do I Call?, Community Resources, Personal Bark Scaler Discharge Disposition: HOME SELF-CARE
[2022-02-01] MEDS: PANTOPRAZOLE 40 MG TABLET PO SCH (10:17)
[2022-02-01] MEDS: CHOLECALCIFEROL 25 MCG (1000 IU) TABLET PO SCH (10:17)
[2022-02-01] MEDS: FUROSEMIDE 20 MG TAB PO SCH (10:18)
[2022-02-01] MEDS: APIXABAN 5 MG TAB PO SCH (10:18)
[2022-02-01] MEDS: guaiFENesin 600 MG TABLET.ER PO SCH (10:18)
[2022-02-01] MEDS: CYANOCOBALAMIN 500 MCG TAB PO SCH (10:18)
[2022-02-01] MEDS: MONTELUKAST 10 MG TAB PO SCH (10:18)
[2022-02-01] MEDS: allopurinoL 100 MG TAB PO SCH (10:19)
[2022-02-01] MEDS: AMIODARONE 100 MG TAB PO SCH (10:19)
[2022-02-01] MEDS: VITAMIN A 10,000 UNIT (3000 MCG) CAPSULE PO SCH (10:20)
[2022-02-01] MEDS: SODIUM FERRIC GLUCONAT-SUCROSE 125 MG in SODIUM CHLORIDE 0.9% 100 ML IVPB SCH (10:20)
--- NOTE | 2022-02-01 10:54 | P.PN ---
Subjective Patient is seen for follow-up for acute kidney injury on top of chronic kidney disease. Renal function is fairly stable and creatinine is staying at about 2.4 mg/dL No significant complaints today. Lasix switched to oral. Getting discharged today Objective - Vital Signs Vital signs: Vital Signs Temp 97.8 F 02/01/22 07:40 Pulse 76 02/01/22 08:20 Resp 18 02/01/22 07:40 BP 91/60 02/01/22 07:40 Pulse Ox 94 L 02/01/22 07:40 FiO2 Intake & Output 01/31/22 02/01/22 02/01/22 18:59 06:59 18:59 Intake Total 1620 125 Output Total 650 400 125 Balance 970 -400 0 Intake: Oral 1620 125 Output: Urine 650 400 125 Other: Voiding Method Toilet Toilet Toilet - Exam Patient is awake, comfortable, no acute distress Alert oriented 3 Examination of the heart S1 and S2 Examination of the lungs bilateral breath sounds are heard Abdomen is soft nontender Examination of lower extremities shows no evidence of edema COMPUTER GRAPHICS ILLUSTRATOR exam grossly intact. - Labs CBC & Chem 7: 01/30/22 11:59 02/01/22 06:00 Labs: Abnormal Lab Results - Last 24 Hours (Table) 02/01/22 Range/Units 06:00 Sodium 136 L (137-145) mmol/L Potassium 3.3 L (3.5-5.1) mmol/L BUN 48 H (7-17) mg/dL Creatinine 2.42 H (0.52-1.04) mg/dL Glucose 105 H (74-99) mg/dL Microbiology - Last 24 Hours (Table) 01/26/22 17:20 Blood Culture - Preliminary Blood No Growth after 120 hours 01/28/22 12:04 Blood Culture - Preliminary Blood No Growth after 72 hours Assessment and Plan Assessment: 1. Acute kidney injury secondary to ATN secondary to cardiorenal syndrome. Creatinine staying at about 2.4 . No hydronephrosis noted on kidney ultrasound. Right kidney atrophic. Left kidney not properly visualized. 2. Chronic kidney disease stage IV with baseline creatinine in the range of 1.5-2 secondary to nephrosclerosis. Serologies have been negative in the past. Elevated light chain levels noted in April 2019. 3. Acute on chronic diastolic CHF with moderate mitral regurgitation. 4. Coronary artery disease with prior stenting. 5. History of A. fib. 6. Anemia of chronic kidney disease. Iron deficiency noted. 7. Pneumonia on antibiotics. Pulmonology following. 8. Staph epi bacteremia. Likely contaminant. 9. Hypokalemia from diuresis. Replaced. Better. Plan: Patient can be discharged from nephrology standpoint Replace potassium Follow-up in the office in about 1-2 weeks for follow-up for CK D.
[2022-02-01 13:17] VITALS: BP 92/55; PULSE 92; TEMP 97.3
== END 2022-02-01 13:48 | disposition home health service (06) | DRG 871 ==
LOC: EC 12:49 → 3SCARD 17:30
PROVIDERS: ADMIT Internal Medicine; ATTEND Internal Medicine
DX: A41.1 Sepsis due to other specified staphylococcus (principal); B37.1 Pulmonary candidiasis; J96.21 Acute and chronic respiratory failure with hypoxia; N17.0 Acute kidney failure with tubular necrosis; I50.33 Acute on chronic diastolic (congestive) heart failure; I13.0 Hypertensive heart and chronic kidney disease with heart failure and stage 1 through stage 4 chronic kidney disease, or unspecified chronic kidney disease; N18.4 Chronic kidney disease, stage 4 (severe); R65.20 Severe sepsis without septic shock; D63.1 Anemia in chronic kidney disease; E03.9 Hypothyroidism, unspecified; D50.9 Iron deficiency anemia, unspecified; E78.5 Hyperlipidemia, unspecified; E87.6 Hypokalemia; F31.9 Bipolar disorder, unspecified; F41.9 Anxiety disorder, unspecified; G89.29 Other chronic pain; I08.0 Rheumatic disorders of both mitral and aortic valves; J84.10 Pulmonary fibrosis, unspecified; F13.11 Sedative, hypnotic or anxiolytic abuse, in remission; I25.10 Atherosclerotic heart disease of native coronary artery without angina pectoris; Z51.5 Encounter for palliative care; I48.0 Paroxysmal atrial fibrillation; I73.9 Peripheral vascular disease, unspecified; J43.9 Emphysema, unspecified; K21.9 Gastro-esophageal reflux disease without esophagitis; M10.9 Gout, unspecified; R04.0 Epistaxis; R41.3 Other amnesia; T14.90XS Injury, unspecified, sequela; V49.9XXS Car occupant (driver) (passenger) injured in unspecified traffic accident, sequela; M54.9 Dorsalgia, unspecified; Y95 Nosocomial condition; Z20.822 Contact with and (suspected) exposure to COVID-19; Z28.310 Unvaccinated for COVID-19; Z28.21 Immunization not carried out because of patient refusal; Z79.01 Long term (current) use of anticoagulants; Z79.890 Hormone replacement therapy; Z79.899 Other long term (current) drug therapy; Z86.14 Personal history of Methicillin resistant Staphylococcus aureus infection; Z86.718 Personal history of other venous thrombosis and embolism; Z86.73 Personal history of transient ischemic attack (TIA), and cerebral infarction without residual deficits; Z87.440 Personal history of urinary (tract) infections; Z87.828 Personal history of other (healed) physical injury and trauma; Z87.891 Personal history of nicotine dependence; Z95.5 Presence of coronary angioplasty implant and graft; Z88.1 Allergy status to other antibiotic agents; Z88.2 Allergy status to sulfonamides; Z88.8 Allergy status to other drugs, medicaments and biological substances; Z82.49 Family history of ischemic heart disease and other diseases of the circulatory system
CPT/HCPCS: 36415; 71045; 71046; 76770; 80048; 80053; 81001; 82272; 82728; 83540; 83550; 83605; 83735; 83880; 83883; 84145; 84165; 84484; 85025; 85027; 85379; 85610; 85730; 86334; 86335; 87040; 87070; 87205; 87635; 93005; 94640; 94667; 94760; 96361; 96365; 96374; 96375; 99284

== ENCOUNTER → 2022-03-07 | Outpatient (CLI) | payer MEDICARE, OTHER ==
--- NOTE | 2022-03-07 09:40 | MR ---
EXAMINATION TYPE: MR lumbar spine wo con DATE OF EXAM: 03/07/2022 9:12 AM COMPARISON: Lumbar spine 06/22/2010. CLINICAL INDICATION:Female, 66 years old with history of SPINAL STENOSIS (M48.061); TECHNIQUE: Multi planar, multi sequence imaging was performed utilizing: T1-weighted, T2-weighted, a nd turbo inversion recovery imaging of the lumbar spine. IV Contrast: None. FINDINGS: Alignment: The lumbar vertebral bodies have preserved heights and alignment. Cord: The conus medullaris and the distal spinal cord appear unremarkable with regards to their signa l intensity and morphology. Bones/Discs: Scattered Modic endplate changes are noted. No bony edema on inversion recovery sequence s. There is high T1/T2 signal L3 vertebral body hemangioma. Intervertebral disc signal is grossly ma intained. L1-L2: No evidence of significant spinal canal stenosis or neural foraminal stenosis. L2-L3: No evidence of significant spinal canal stenosis. Facet joint arthropathy with bilateral mild neural foraminal stenosis. L3-L4: No evidence of significant spinal canal stenosis. Facet joint arthropathy with bilateral mild neural foraminal stenosis. L4-L5: Disc bulge without evidence of significant spinal canal stenosis. Facet joint arthropathy with bilateral mild neural foraminal stenosis. L5-S1: No evidence of significant spinal canal stenosis. Facet joint arthropathy with bilateral mild neural foraminal stenosis. Other findings: Atherosclerosis of the arterial vasculature. IMPRESSION: 1. No definitive evidence of disc herniation or significant spinal canal stenosis. 2. Mild progression of disc degeneration with associated osteoarthritic changes.
== END | disposition home or self-care (01) ==
LOC: RADMRIMAIN 07:48
PROVIDERS: ATTEND Nurse Practitioner Family
DX: M51.36 Other intervertebral disc degeneration, lumbar region (principal); M48.061 Spinal stenosis, lumbar region without neurogenic claudication
CPT/HCPCS: 72148

== ENCOUNTER → 2022-04-16 | Outpatient (CLI) | payer MEDICARE, OTHER ==
--- NOTE | 2022-04-16 16:15 | US ---
EXAMINATION TYPE: US kidneys/renal and bladder DATE OF EXAM: 04/16/2022 COMPARISON: 01/27/2022 CLINICAL HISTORY: 66-year-old female N18.4 Chronic kidney disease, stage 4. TECHNIQUE: Multiple sonographic images of the kidneys and bladder are obtained. FINDINGS: EXAM MEASUREMENTS: Right Kidney: 7.0 x 3.4 x 3.3 cm Left Kidney: 8.2 x 3.8 x 3.0 cm Right Kidney: Echogenic hilum, isoechoic thin cortex Left Kidney: Echogenic hilum, isoechoic thin cortex No hydronephrosis on either side. Bladder: Non distended Bilateral Jets seen: No IMPRESSION: Changes of chronic medical renal disease. No hydronephrosis. Underdistention of the bladder limits it s evaluation.
== END | disposition home or self-care (01) ==
LOC: RADUSWWP 11:42
PROVIDERS: ATTEND Internal Medicine Nephrology
DX: N18.4 Chronic kidney disease, stage 4 (severe) (principal)
CPT/HCPCS: 76770

== ENCOUNTER → 2022-04-23 | Outpatient (CLI) | payer MEDICARE, OTHER ==
[2022-04-23 11:03] VITALS: BP 130/80; PULSE 66; RESP 18; TEMP 97.7
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
== END ==
LOC: PNWHC3 09:41
PROVIDERS: ATTEND Specialist
DX: M51.36 Other intervertebral disc degeneration, lumbar region (principal); I48.91 Unspecified atrial fibrillation; J44.9 Chronic obstructive pulmonary disease, unspecified; I25.10 Atherosclerotic heart disease of native coronary artery without angina pectoris; I63.9 Cerebral infarction, unspecified; Z86.718 Personal history of other venous thrombosis and embolism; E78.5 Hyperlipidemia, unspecified; K21.9 Gastro-esophageal reflux disease without esophagitis; E03.9 Hypothyroidism, unspecified; F41.9 Anxiety disorder, unspecified; F31.9 Bipolar disorder, unspecified; I13.0 Hypertensive heart and chronic kidney disease with heart failure and stage 1 through stage 4 chronic kidney disease, or unspecified chronic kidney disease; I50.9 Heart failure, unspecified; N18.4 Chronic kidney disease, stage 4 (severe); Z79.890 Hormone replacement therapy; Z87.891 Personal history of nicotine dependence; Z88.2 Allergy status to sulfonamides; Z88.1 Allergy status to other antibiotic agents
CPT/HCPCS: 99211

== ENCOUNTER 2022-04-29 12:56 | Inpatient (IN) | payer MEDICARE, OTHER ==
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
[2022-04-29 14:01] LABS: Basophils % (A) 0 %; Eosinophils # (A) 0.1 k/uL (0-0.7); Eosinophils % (A) 2 %; HCT 37.6 % (34.0-46.0); Lymphocytes # (A) 0.6 k/uL (1.0-4.8); Lymphocytes % (A) 7 %; MCV 100.1 fL (80.0-100.0); Macrocytosis Slight; Mean Platelet Volume 7.6; Monocytes # (A) 0.1 k/uL (0-1.0); Monocytes % (A) 2 %; Neutrophils # (A) 8.1 k/uL (1.3-7.7); Neutrophils % (A) 90 %; Platelet Count 219 k/uL (150-450); RBC 3.75 m/uL (3.80-5.40); RDW 14.6 % (11.5-15.5)
--- NOTE | 2022-04-29 14:04 | XR ---
EXAMINATION TYPE: XR chest 2V DATE OF EXAM: 04/29/2022 1:59 PM COMPARISON: Chest radiographs from 01/30/2022. TECHNIQUE: XR chest 2V Frontal and lateral views of the chest. CLINICAL INDICATION:Female, 66 years old with history of dyspnea; FINDINGS: Lungs/Pleura: No pneumothorax or pleural effusion. Blunting of both costophrenic angles. Pulmonary va scular congestion. Heart/mediastinum: Cardiomediastinal silhouette is enlarged and stable. Musculoskeletal: No acute osseous pathology. IMPRESSION: Cardiomegaly and mild pulmonary vascular congestion. Correlate with BNP for congestive heart failure.
[2022-04-29 14:18] LABS: Partial Thromboplastin Time 25.2 sec (22.0-30.0); Prothrombin Time 10.3 sec (9.0-12.0)
[2022-04-29 14:24] LABS: Albumin 4.2 g/dL (3.5-5.0); Calcium 8.8 mg/dL (8.4-10.2); Potassium 5.3 mmol/L (3.5-5.1); Total Bilirubin 0.4 mg/dL (0.2-1.3); Total Protein 7.6 g/dL (6.3-8.2)
[2022-04-29] MEDS ORDERED: FUROSEMIDE 10 MG/ML 4 ML VIAL IV STA (15:37)
[2022-04-29] MEDS ORDERED: ALBUTEROL NEBULIZED 2.5 MG/3 ML INHALATION PRN (18:52)
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
[2022-04-29] MEDS: allopurinoL 100 MG TAB PO SCH (20:45)
[2022-04-29] MEDS: APIXABAN 2.5 MG TABLET PO SCH (20:45)
[2022-04-29] MEDS: SYMBICORT 160-4.5 MCG INHALER INHALATION SCH (20:45)
[2022-04-29] MEDS: IPRATROPIUM-ALBUTEROL 3 ML NEB INHALATION PRN (20:45)
[2022-04-29] MEDS: QUEtiapine 100 MG TAB PO SCH (20:46)
[2022-04-29] MEDS: ATORVASTATIN 20 MG TAB PO SCH (20:46)
[2022-04-29] MEDS: SERTRALINE 100 MG TAB PO SCH (20:46)
[2022-04-29] MEDS ORDERED: FUROSEMIDE 40 MG TAB PO SCH (21:00)
[2022-04-29] MEDS: ASPIRIN-ACET-CAFF 250-250-65MG 1 EACH TAB PO PRN (21:35)
[2022-04-30] MEDS: LEVOTHYROXINE 75 MCG TAB PO SCH (05:30)
[2022-04-30] MEDS: PANTOPRAZOLE 40 MG TABLET PO SCH (05:32)
[2022-04-30] MEDS: SYMBICORT 160-4.5 MCG INHALER INHALATION SCH ×2 (07:45→21:14)
[2022-04-30] MEDS: IPRATROPIUM-ALBUTEROL 3 ML NEB INHALATION PRN ×4 (07:46→21:13)
--- NOTE | 2022-04-30 08:48 | CONS ---
CONSULTATION CHIEF COMPLAINT: Shortness of breath. HISTORY OF PRESENT ILLNESS: Madina is a 66-year-old lady with known history of severe COPD on home O2, hypertension, hypothyroidism, paroxysmal atrial fibrillation who presented to hospital with worsening shortness of breath. She was recently at her sand hauler's office when she went to see him along with her , was found to be short of breath, was given a nebulizer, given a steroid shot and sent home. As her breathing got worse, she presented to the emergency room, from there she was admitted to hospital with a CHF exacerbation. Her BNP is elevated. The patient has known CAD and had prior angioplasty of right coronary artery and also has paroxysmal atrial fibrillation, chronic renal insufficiency and peripheral arterial disease. She follows with Dr. Stockton on a regular basis. An EKG on this admission reveals sinus rhythm. The patient had an echocardiogram in January 2022 that revealed normal LV systolic function with moderate mitral regurgitation with mild aortic regurgitation. She had a cardiac catheterization in October of 2017 that revealed patent stent within the RCA. At the time of my evaluation this morning, she is diuresing well and is feeling better compared to yesterday. PAST MEDICAL HISTORY: Significant for coronary artery disease, paroxysmal atrial fibrillation, COPD, hypertension, and hypothyroidism. MEDICATIONS AT HOME: 1. Lopressor. 2. Synthroid. 3. Lasix 20 mg b.i.d. 4. Symbicort. 5. Amiodarone 100 mg daily. 6. Seroquel. 7. DuoNeb. 8. Eliquis. 9. Lipitor. 10.Ventolin. ALLERGIES: She is allergic to Macrobid, sulfonamides, and tetracycline. FAMILY HISTORY: Negative for premature coronary artery disease. SOCIAL HISTORY: Denies current smoking, EtOH abuse, or drug abuse. REVIEW OF SYSTEMS: A review of systems has been performed, pertinent are as documented and include shortness of breath and wheezing. PHYSICAL EXAMINATION: GENERAL: She is comfortable at rest. VITAL SIGNS: Stable. O2 saturation is 100% on 2 L. NECK: There is no jugular venous distention. CHEST: Reveals diffuse severe bilateral rhonchi. HEART: Reveals first and second heart sounds. No gallop. Systolic murmur at the apex. ABDOMEN: Soft. EXTREMITIES: Did not reveal any edema. Peripheral pulses are palpable. LABORATORY DATA: Labs show a hemoglobin of 12, platelet count is 219, potassium is 5.3, BUN is 30, creatinine is 1.6. Troponin is negative. BNP is elevated at 3100. Her influenza, RSV, and SARS-COVID testing is negative. An EKG shows sinus rhythm with PACs. A chest x-ray on this admission revealed cardiomegaly with mild pulmonary congestion. ASSESSMENT: 1. Acute exacerbation of chronic diastolic heart failure. 2. Coronary artery disease, status post angioplasty. 3. Severe chronic obstructive pulmonary disease. 4. Paroxysmal atrial fibrillation. PLAN: I will treat the patient with IV Lasix. Continue beta blockers, amiodarone, and Lipitor that she is currently on. MMODL / IJN: [id number] /
[2022-04-30] MEDS: FUROSEMIDE 10 MG/ML 4 ML VIAL IV SCH ×2 (09:04→21:30)
[2022-04-30] MEDS: VITAMIN A 10,000 UNIT (3000 MCG) CAPSULE PO SCH (09:05)
[2022-04-30] MEDS: allopurinoL 100 MG TAB PO SCH ×2 (09:05→21:29)
[2022-04-30] MEDS: APIXABAN 2.5 MG TABLET PO SCH ×2 (09:05→21:29)
[2022-04-30] MEDS: AMIODARONE 100 MG TAB PO SCH (09:05)
[2022-04-30] MEDS: CHOLECALCIFEROL 25 MCG (1000 IU) TABLET PO SCH (09:06)
[2022-04-30] MEDS: CYANOCOBALAMIN 500 MCG TAB PO SCH (09:06)
[2022-04-30] MEDS: MONTELUKAST 10 MG TAB PO SCH (09:06)
[2022-04-30] MEDS: FOLIC ACID 1 MG TAB PO SCH (09:06)
[2022-04-30] MEDS: METOPROLOL TARTRATE 25 MG TAB PO SCH (09:06)
[2022-04-30] MEDS: methocarbamoL 500 MG TAB PO PRN ×2 (10:28→18:23)
--- NOTE | 2022-04-30 10:41 | P.PN ---
Subjective Progress Note Date: 04/30/22 Patient reports mild improvement in breathing, but does still feel labored. She reports that she has some congestion in her chest but is having trouble coughing up. Denies fevers, chills. Gen: in no apparent distress, resting comfortably in bed Eyes: PERRL, no scleral injection or icterus HENT: normocephalic, atraumatic, good hearing acuity, moist mucous membranes Neck: no tracheal deviation, full range of motion Resp: good air exchange, breathing comfortably with no accessory muscle use, no tactile fremitus, bilateral crackles CVS: good distal perfusion x 4, bilateral pitting edema, RRR no murmurs GI: soft, NTTP, ND, no hepatosplenomegaly : no suprapubic tenderness, no CVAT, benoit catheter is present MSK: no clubbing, no cyanosis, no noted contractures of extremities Skin: no noted rashes, petechiae; temperature of skin is appropriate Neuro: moving all extremities without signs of weakness, CN II-XII intact Psych: cooperative, euthymic mood, insight and judgment intact Assessment/plan: Acute Diastolic Heart Failure Exacerbation -admit to inpatient, telemetry -I/Os, daily weights -repeat echocardiogram is pending -lasix 40mg IV bid -oxygen prn -cardiology consult, appreciate recommendations COPD mild exacerbation -Pulmonology consulted -Nebulizers as needed -Flutter valve HTN HLD CAD - Home medications reviewed and reconciled Pt is full code DVT PPx with home eliquis Objective - Vital Signs Vital signs: Vital Signs Temp 97.8 F 04/30/22 07:00 Pulse 82 04/30/22 07:58 Resp 18 04/30/22 07:00 BP 144/81 04/30/22 07:00 Pulse Ox 100 04/30/22 07:46 FiO2 Intake & Output 04/29/22 04/30/22 04/30/22 18:59 06:59 18:59 Intake Total 240 Balance 240 Weight 79.379 kg Intake: Oral 240 Other: Voiding Method Toilet Toilet Toilet # Voids 5 - Labs CBC & Chem 7: 04/29/22 13:26 04/29/22 13:26 Labs: Abnormal Lab Results - Last 24 Hours (Table) 04/29/22 04/29/22 Range/Units 13:26 13:26 RBC 3.75 L (3.80-5.40) m/uL MCV 100.1 H (80.0-100.0) fL Neutrophils # 8.1 H (1.3-7.7) k/uL Lymphocytes # 0.6 L (1.0-4.8) k/uL Potassium 5.3 H (3.5-5.1) mmol/L Chloride 108 H (98-107) mmol/L BUN 30 H (7-17) mg/dL Creatinine 1.67 H (0.52-1.04) mg/dL Glucose 108 H (74-99) mg/dL Alkaline Phosphatase 144 H (38-126) U/L
--- NOTE | 2022-04-30 12:19 | CA ---
Transthoracic Echo Report Name: Madina Nick Age: 66 Gender: F : 1955 Exam Date: 04/30/2022 10:09 Exam Location: [facility] Ht (in): 63 Wt (lb): 175 Ordering Physician: Berenice Hilario MD Attending/Referring Phys: Santiago Briseno MD Educational Administrator Ingrid Tristan RDCS Procedure CPT: Indications: heart failure exacerbation Cardiac Hx: Technical Quality: Fair Contrast 1: Total Dose (mL): Contrast 2: Total Dose (mL): MEASUREMENTS (Male / Female) Normal Values 2D ECHO LV Diastolic Diameter PLAX 4.9 cm 4.2 - 5.9 / 3.9 - 5.3 cm LV Systolic Diameter PLAX 3.2 cm IVS Diastolic Thickness 1.4 cm 0.6 - 1.0 / 0.6 - 0.9 cm LVPW Diastolic Thickness 1.4 cm 0.6 - 1.0 / 0.6 - 0.9 cm LV Relative Wall Thickness 0.6 RV Internal Dim ED PLAX 3.1 cm LA Volume 89.5 cm??? 18 - 58 / 22 - 52 cm??? M-MODE Aortic Root Diameter MM 2.7 cm LA Systolic Diameter MM 5.2 cm LA Ao Ratio MM 1.9 AV Cusp Separation MM 1.4 cm DOPPLER AV Peak Velocity 223.1 cm/s AV Peak Gradient 19.9 mmHg AV Mean Velocity 138.0 cm/s AV Mean Gradient 8.8 mmHg AV Velocity Time Integral 40.4 cm AI Peak Velocity 512.0 cm/s AI Peak Gradient 104.8 mmHg AI Pressure Half Time 490.2 ms LVOT Peak Velocity 91.4 cm/s LVOT Peak Gradient 3.3 mmHg LVOT Velocity Time Integral 18.0 cm MV Area PHT 4.1 cm??? Mitral E Point Velocity 143.1 cm/s Mitral A Point Velocity 97.4 cm/s Mitral E to A Ratio 1.5 MV Deceleration Time 186.9 ms TR Peak Velocity 317.5 cm/s TR Peak Gradient 40.3 mmHg Right Ventricular Systolic Press 43.9 mmHg FINDINGS Left Ventricle Moderately increased septal wall thickness. Moderately increased posterior wall thickness. Normal left ventricular systolic function with no obvious regional wall motion abnormalities. Left ventricular ejection fraction is estimated at 55 %. Right Ventricle Normal right ventricular size and function. Mild pulmonary hypertension. Right Atrium Normal right atrial size. Left Atrium Severely increased left atrial volume. Mildly increased left atrial area. Mitral Valve Mild thickening/calcification of the mitral valve leaflets. Mild mitral annular calcification. Moderate mitral regurgitation. Aortic Valve Trileaflet aortic valve. Mild aortic stenosis with a peak gradient of 20 mmHg and a mean gradient of 9 mmHg. Mild aortic regurgitation. Tricuspid Valve Mild tricuspid regurgitation. Pulmonic Valve Trace pulmonic regurgitation. Pericardium No pericardial effusion. Aorta Normal size aortic root and proximal ascending aorta. CONCLUSIONS Normal LV function Moderate mitral regurgitation Mild mitral regurgitation Previewed by: Dr. Bon Marcos MD (Electronically Signed) Final Date: 30 April 2022 12:18
[2022-04-30 12:40] VITALS: BMI 30.9
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
[2022-04-30] MEDS: ASPIRIN-ACET-CAFF 250-250-65MG 1 EACH TAB PO PRN (13:47)
[2022-04-30] MEDS: methylPREDNISolone SOD SUCCI 40 MG/ML 1 ML VIAL IV SCH (16:13)
[2022-04-30] MEDS: ACETYLCYSTEINE 800 MG/4 ML VIAL INHALATION SCH (21:13)
[2022-04-30] MEDS: SERTRALINE 100 MG TAB PO SCH (21:30)
[2022-04-30] MEDS: ATORVASTATIN 20 MG TAB PO SCH (21:30)
[2022-04-30] MEDS: QUEtiapine 100 MG TAB PO SCH (21:30)
[2022-05-01] MEDS: methylPREDNISolone SOD SUCCI 40 MG/ML 1 ML VIAL IV SCH ×3 (00:17→15:48)
[2022-05-01] MEDS: PANTOPRAZOLE 40 MG TABLET PO SCH (06:38)
[2022-05-01] MEDS: LEVOTHYROXINE 75 MCG TAB PO SCH (06:38)
[2022-05-01] MEDS: IPRATROPIUM-ALBUTEROL 3 ML NEB INHALATION PRN ×3 (07:43→16:23)
[2022-05-01] MEDS: SYMBICORT 160-4.5 MCG INHALER INHALATION SCH ×2 (07:43→19:48)
[2022-05-01] MEDS: ACETYLCYSTEINE 800 MG/4 ML VIAL INHALATION SCH ×4 (07:47→19:49)
--- NOTE | 2022-05-01 07:58 | XR ---
EXAMINATION TYPE: XR chest 1V portable DATE OF EXAM: 05/01/2022 COMPARISON: 04/29/2022 INDICATION: Short of breath TECHNIQUE: Single frontal view of the chest is obtained. FINDINGS: The heart size is moderately prominent. The pulmonary vasculature is mildly prominent. No suspicious focal consolidation is evident. IMPRESSION: 1. Clinical correlation for congestive heart failure. This may be slightly improved over the interval .
--- NOTE | 2022-05-01 10:05 | P.PN ---
Subjective Progress Note Date: 05/01/22 Patient reports improvement in breathing. There is still no flutter valve at bedside. Patient was started on Mucomyst last night for congestion and pulmonary toilet as well as flutter valve request. Patient reports congestion has improved Gen: in no apparent distress, resting comfortably in bed Eyes: PERRL, no scleral injection or icterus HENT: normocephalic, atraumatic, good hearing acuity, moist mucous membranes Neck: no tracheal deviation, full range of motion Resp: good air exchange, breathing comfortably with no accessory muscle use, no tactile fremitus, bilateral crackles CVS: good distal perfusion x 4, bilateral pitting edema, RRR no murmurs GI: soft, NTTP, ND, no hepatosplenomegaly : no suprapubic tenderness, no CVAT, benoit catheter is present MSK: no clubbing, no cyanosis, no noted contractures of extremities Skin: no noted rashes, petechiae; temperature of skin is appropriate Neuro: moving all extremities without signs of weakness, CN II-XII intact Psych: cooperative, euthymic mood, insight and judgment intact Assessment/plan: Acute Diastolic Heart Failure Exacerbation -I/Os, daily weights -repeat echocardiogram shows left atrial enlargement, mitral regurgitation, pul monary hypertension -lasix 40mg IV bid to be continued -oxygen prn -cardiology consult note was reviewed and the recommend adding pulmonology consultation, increasing Lasix to twice daily dosing -Pulmonology consult reviewed, started on ceftriaxone, nebulizers -Chest x-ray was reviewed by me, independently interpreted, appears to have vascular congestion and cardiomegaly COPD mild exacerbation -Pulmonology consulted -Nebulizers as needed -Flutter valve -Mucomyst added HTN HLD CAD - Home medications reviewed and reconciled Pt is full code DVT PPx with home eliquis Objective - Vital Signs Vital signs: Vital Signs Temp 97.7 F 05/01/22 08:00 Pulse 76 05/01/22 08:00 Resp 17 05/01/22 08:00 BP 101/65 05/01/22 08:00 Pulse Ox 99 05/01/22 08:00 FiO2 Intake & Output 04/30/22 05/01/22 05/01/22 18:59 06:59 18:59 Intake Total 360 Output Total 700 1800 Balance -340 -1800 Weight 79.379 kg 77.7 kg Intake: Oral 360 Output: Urine 700 1800 Other: Voiding Method Toilet Toilet # Voids 1 2 - Labs CBC & Chem 7: 04/29/22 13:26 04/29/22 13:26
[2022-05-01] MEDS: VITAMIN A 10,000 UNIT (3000 MCG) CAPSULE PO SCH (10:08)
[2022-05-01] MEDS: FOLIC ACID 1 MG TAB PO SCH (10:08)
[2022-05-01] MEDS: AMIODARONE 100 MG TAB PO SCH (10:08)
[2022-05-01] MEDS: CYANOCOBALAMIN 500 MCG TAB PO SCH (10:08)
[2022-05-01] MEDS: CHOLECALCIFEROL 25 MCG (1000 IU) TABLET PO SCH (10:08)
[2022-05-01] MEDS: allopurinoL 100 MG TAB PO SCH ×2 (10:09→21:26)
[2022-05-01] MEDS: MONTELUKAST 10 MG TAB PO SCH (10:09)
[2022-05-01] MEDS: FUROSEMIDE 10 MG/ML 4 ML VIAL IV SCH (10:09)
[2022-05-01] MEDS: APIXABAN 2.5 MG TABLET PO SCH ×2 (10:09→21:26)
[2022-05-01] MEDS: METOPROLOL TARTRATE 25 MG TAB PO SCH (10:10)
[2022-05-01] MEDS: ASPIRIN-ACET-CAFF 250-250-65MG 1 EACH TAB PO PRN ×2 (10:49→15:53)
[2022-05-01] MEDS: methocarbamoL 500 MG TAB PO PRN ×2 (10:49→18:31)
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
[2022-05-01] MEDS: FUROSEMIDE 40 MG TAB PO SCH (15:48)
[2022-05-01] MEDS: SERTRALINE 100 MG TAB PO SCH (21:26)
[2022-05-01] MEDS: QUEtiapine 100 MG TAB PO SCH (21:26)
[2022-05-01] MEDS: ATORVASTATIN 20 MG TAB PO SCH (21:26)
--- NOTE | 2022-05-01 22:07 | PN ---
PROGRESS NOTE SUBJECTIVE: Madina is a 66-year-old lady, who was admitted to hospital with COPD and CHF exacerbations. This morning, she is feeling better. The wheezing has improved, and she does not have any leg edema. An echocardiogram showed normal LV systolic function with moderate mitral regurgitation and mild aortic stenosis. OBJECTIVE: GENERAL: Today, comfortable at rest. VITAL SIGNS: Stable. CHEST: Reveals occasional rhonchi bilaterally, much improved from yesterday. HEART: Reveals first and second heart sounds. Systolic murmur at the apex and an ejection systolic murmur at the right upper sternal border. ABDOMEN: Soft. EXTREMITIES: Did not reveal any edema. Peripheral pulses are felt. LABORATORY DATA: Show hemoglobin of 12, platelet count is 219. Creatinine is 1.6. ASSESSMENT: 1. Acute exacerbation of chronic diastolic heart failure. 2. Chronic obstructive pulmonary disease exacerbation. 3. Moderate mitral regurgitation. PLAN: I will switch the Lasix to p.o. Please follow electrolytes on her. MMODL / IJN: [id number] /
[2022-05-01] MEDS: NITROGLYCERIN SL TABS 0.4 MG TAB SUBLINGUAL PRN (22:47)
[2022-05-02] MEDS: methylPREDNISolone SOD SUCCI 40 MG/ML 1 ML VIAL IV SCH ×4 (00:11→23:44)
[2022-05-02] MEDS: LEVOTHYROXINE 75 MCG TAB PO SCH (05:29)
[2022-05-02] MEDS: PANTOPRAZOLE 40 MG TABLET PO SCH (05:29)
[2022-05-02] MEDS: ASPIRIN-ACET-CAFF 250-250-65MG 1 EACH TAB PO PRN ×2 (05:51→21:26)
[2022-05-02] MEDS: CHOLECALCIFEROL 25 MCG (1000 IU) TABLET PO SCH (08:15)
[2022-05-02] MEDS: CYANOCOBALAMIN 500 MCG TAB PO SCH (08:15)
[2022-05-02] MEDS: allopurinoL 100 MG TAB PO SCH ×2 (08:15→21:26)
[2022-05-02] MEDS: MONTELUKAST 10 MG TAB PO SCH (08:16)
[2022-05-02] MEDS: APIXABAN 2.5 MG TABLET PO SCH ×2 (08:16→21:26)
[2022-05-02] MEDS: VITAMIN A 10,000 UNIT (3000 MCG) CAPSULE PO SCH (08:16)
[2022-05-02] MEDS: FUROSEMIDE 40 MG TAB PO SCH ×2 (08:16→17:57)
[2022-05-02] MEDS: FOLIC ACID 1 MG TAB PO SCH (08:16)
[2022-05-02] MEDS: methocarbamoL 500 MG TAB PO PRN ×2 (08:17→15:56)
[2022-05-02] MEDS: IPRATROPIUM-ALBUTEROL 3 ML NEB INHALATION PRN ×2 (08:41→12:16)
[2022-05-02] MEDS: SYMBICORT 160-4.5 MCG INHALER INHALATION SCH ×2 (08:41→21:12)
[2022-05-02] MEDS: ACETYLCYSTEINE 800 MG/4 ML VIAL INHALATION SCH ×4 (08:41→21:12)
[2022-05-02 10:38] LABS: African American GFR (CKD) 27 (>60 ml/min/1.73 sqM); Anion Gap 11 mmol/L; Blood Urea Nitrogen 73 mg/dL (7-17); Calcium 8.3 mg/dL (8.4-10.2); Carbon Dioxide 24 mmol/L (22-30); Chloride 103 mmol/L (98-107); Glucose 116 mg/dL (74-99); Non-African American GFR(CKD) 23 (>60 ml/min/1.73 sqM); Potassium 3.6 mmol/L (3.5-5.1); Sodium 138 mmol/L (137-145)
[2022-05-02] MEDS: METOPROLOL TARTRATE 25 MG TAB PO SCH (10:38)
[2022-05-02] MEDS: AMIODARONE 100 MG TAB PO SCH (10:40)
--- NOTE | 2022-05-02 10:44 | P.PN ---
Subjective Progress Note Date: 05/02/22 Patient reports mild improvement in breathing. Has flutter valve to help with congestion. Switched to PO lasix. PC is low. Cr and BUN are worse today. Gen: in no apparent distress, resting comfortably in bed Eyes: PERRL, no scleral injection or icterus HENT: normocephalic, atraumatic, good hearing acuity, moist mucous membranes Neck: no tracheal deviation, full range of motion Resp: good air exchange, breathing comfortably with no accessory muscle use, no tactile fremitus, bilateral crackles CVS: good distal perfusion x 4, bilateral pitting edema, RRR no murmurs GI: soft, NTTP, ND, no hepatosplenomegaly : no suprapubic tenderness, no CVAT, benoit catheter is present MSK: no clubbing, no cyanosis, no noted contractures of extremities Skin: no noted rashes, petechiae; temperature of skin is appropriate Neuro: moving all extremities without signs of weakness, CN II-XII intact Psych: cooperative, euthymic mood, insight and judgment intact Assessment/plan: Acute Diastolic Heart Failure Exacerbation -I/Os, daily weights -repeat echocardiogram shows left atrial enlargement, mitral regurgitation, pulmonary hypertension -lasix 40mg IV BID switched to PO BID by cardiology -oxygen prn -cardiology consult note was reviewed and the recommend adding pulmonology consultation, increasing Lasix to twice daily dosing -Pulmonology consult reviewed, started on ceftriaxone, nebulizers -Chest x-ray was reviewed by me, independently interpreted, vascular congestion has improved COPD mild exacerbation -Pulmonology consulted -Nebulizers as needed -Flutter valve -Mucomyst added HTN HLD CAD - Home medications reviewed and reconciled Pt is full code DVT PPx with home eliquis Objective - Vital Signs Vital signs: Vital Signs Temp 97.7 F 05/02/22 08:00 Pulse 82 05/02/22 08:55 Resp 18 05/02/22 08:00 BP 113/70 05/02/22 08:00 Pulse Ox 96 05/02/22 08:44 FiO2 Intake & Output 05/01/22 05/02/22 05/02/22 18:59 06:59 18:59 Intake Total 118 Output Total 400 Balance -282 Weight 78.2 kg Intake: Oral 118 Output: Urine 400 Other: Voiding Method Toilet Toilet # Voids 3 2 - Labs CBC & Chem 7: 04/29/22 13:26 05/02/22 10:06 Labs: Abnormal Lab Results - Last 24 Hours (Table) 05/01/22 05/02/22 Range/Units 12:40 10:06 BUN 73 H (7-17) mg/dL Creatinine 2.13 H (0.52-1.04) mg/dL Glucose 116 H (74-99) mg/dL Calcium 8.3 L (8.4-10.2) mg/dL Procalcitonin 0.10 H (0.02-0.09) ng/mL
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
--- NOTE | 2022-05-02 13:39 | P.PN ---
Subjective Progress Note Date: 05/02/22 This is a pleasant 66-year-old female with history of COPD oxygen, hypertension, hyperlipidemia, hypothyroidism, paroxysmal atrial fibrillation and CAD with prior PCI of the RCA. Follows with Dr. Orozco on a regular basis. Presented to the hospital with worsening shortness of breath. NT proBNP was elevated. She was diuresed with IV Lasix and subsequently been transitioned to oral Lasix 40 mg by mouth twice a day. She feels her breathing is overall stable. She did develop some chest discomfort through the night after receiving her nebulizer treatment. She has a history of closed head injury and has a poor memory and is unable to determine whether this is similar to anything she is experienced in the past. Troponin was negative and EKG showed no ST-T wave changes. She did have a cardiac catheterization in September 2017 which showed patent stents in the RCA. She is unsure when her last stress test was. She said no recurrence of the chest discomfort. Vital signs are stable. He is maintaining sinus mechanism. Echocardiogram with Doppler study revealed normal LV function, moderate MR, mild TR, and mild and AR. Objective - Vital Signs Vital signs: Vital Signs Temp 97.7 F 05/02/22 08:00 Pulse 82 05/02/22 08:55 Resp 18 05/02/22 08:00 BP 113/70 05/02/22 08:00 Pulse Ox 96 05/02/22 08:44 FiO2 Intake & Output 05/01/22 05/02/22 05/02/22 18:59 06:59 18:59 Intake Total 118 Output Total 400 Balance -282 Weight 78.2 kg Intake: Oral 118 Output: Urine 400 Other: Voiding Method Toilet Toilet # Voids 3 2 - Exam PHYSICAL EXAMINATION: HEENT: Head is atraumatic, normocephalic. Pupils equal, round. Neck is supple. There is no elevated jugular venous pressure. HEART EXAMINATION: Heart sounds regular, S1 and S2 normal with a systolic murmur. CHEST EXAMINATION: Lungs reveal faint expiratory wheezing on the right. No chest wall tenderness is noted on palpation or with deep breathing. ABDOMEN: Soft, nontender. Bowel sounds are heard. No organomegaly noted. EXTREMITIES: 2+ peripheral pulses with no evidence of peripheral edema and no calf tenderness noted. NEUROLOGIC patient is awake, alert and oriented x3, poor short-term memory noted. . - Labs CBC & Chem 7: 04/29/22 13:26 05/02/22 10:06 Labs: Abnormal Lab Results - Last 24 Hours (Table) 05/01/22 05/02/22 Range/Units 12:40 10:06 BUN 73 H (7-17) mg/dL Creatinine 2.13 H (0.52-1.04) mg/dL Glucose 116 H (74-99) mg/dL Calcium 8.3 L (8.4-10.2) mg/dL Procalcitonin 0.10 H (0.02-0.09) ng/mL Assessment and Plan Assessment: #1 acute on chronic diastolic congestive heart failure #2 CAD status post PCI to RCA #3 oxygen-dependent COPD #4 paroxysmal atrial fibrillation, maintaining sinus mechanism Plan: From cardiology's perspective medications were reviewed and will continue the same. Continue to monitor renal function and electrolytes. If renal function remained stable patient may benefit from the addition of SGLT2-inhibitor. We'll continue to follow the patient provide further recommendations accordingly. KITCHEN CLEANER note has been reviewed, I agree with a documented findings and plan of care. Patient was seen and examined.
[2022-05-02] MEDS: GABAPENTIN 100 MG CAP PO SCH ×2 (15:56→21:26)
[2022-05-02] MEDS: NITROGLYCERIN SL TABS 0.4 MG TAB SUBLINGUAL PRN (20:04)
[2022-05-02] MEDS: SERTRALINE 100 MG TAB PO SCH (21:26)
[2022-05-02] MEDS: ATORVASTATIN 20 MG TAB PO SCH (21:27)
[2022-05-02] MEDS: QUEtiapine 100 MG TAB PO SCH (21:27)
[2022-05-02] MEDS ORDERED: MELATONIN 5 MG TABLET PO ONE (22:53)
[2022-05-03] MEDS: LEVOTHYROXINE 75 MCG TAB PO SCH (05:28)
[2022-05-03] MEDS: PANTOPRAZOLE 40 MG TABLET PO SCH (05:28)
[2022-05-03] MEDS: CHOLECALCIFEROL 25 MCG (1000 IU) TABLET PO SCH (07:58)
[2022-05-03] MEDS: FOLIC ACID 1 MG TAB PO SCH (07:58)
[2022-05-03] MEDS: CYANOCOBALAMIN 500 MCG TAB PO SCH (07:58)
[2022-05-03] MEDS: FUROSEMIDE 40 MG TAB PO SCH (07:59)
[2022-05-03] MEDS: allopurinoL 100 MG TAB PO SCH ×2 (07:59→20:48)
[2022-05-03] MEDS: MONTELUKAST 10 MG TAB PO SCH (07:59)
[2022-05-03] MEDS: METOPROLOL TARTRATE 25 MG TAB PO SCH (07:59)
[2022-05-03] MEDS: methylPREDNISolone SOD SUCCI 40 MG/ML 1 ML VIAL IV SCH ×2 (07:59→16:17)
[2022-05-03] MEDS: APIXABAN 2.5 MG TABLET PO SCH ×2 (07:59→20:48)
[2022-05-03] MEDS: GABAPENTIN 100 MG CAP PO SCH ×3 (07:59→20:48)
[2022-05-03] MEDS: SYMBICORT 160-4.5 MCG INHALER INHALATION SCH ×2 (08:03→20:25)
[2022-05-03] MEDS: ACETYLCYSTEINE 800 MG/4 ML VIAL INHALATION SCH (08:03)
[2022-05-03] MEDS: VITAMIN A 10,000 UNIT (3000 MCG) CAPSULE PO SCH (08:06)
[2022-05-03] MEDS: AMIODARONE 100 MG TAB PO SCH (08:06)
[2022-05-03 09:09] VITALS: RESP 18
--- NOTE | 2022-05-03 09:45 | P.PN ---
Subjective Progress Note Date: 05/03/22 This is a pleasant 66-year-old female with history of COPD oxygen, hypertension, hyperlipidemia, hypothyroidism, paroxysmal atrial fibrillation and CAD with prior PCI of the RCA. Follows with Dr. Orozco on a regular basis. Presented to the hospital with worsening shortness of breath. NT proBNP was elevated. She was diuresed with IV Lasix and subsequently been transitioned to oral Lasix 40 mg by mouth twice a day. She feels her breathing is overall stable. She did develop some chest discomfort through the night after receiving her nebulizer treatment. She has a history of closed head injury and has a poor memory and is unable to determine whether this is similar to anything she is experienced in the past. Troponin was negative and EKG showed no ST-T wave changes. She did have a cardiac catheterization in September 2017 which showed patent stents in the RCA. She is unsure when her last stress test was. She said no recurrence of the chest discomfort. Vital signs are stable. He is maintaining sinus mechanism. Echocardiogram with Doppler study revealed normal LV function, moderate MR, mild TR, and mild and AR. 05/03/2022 Upon examination the patient is resting comfortably in bed. This morning labs are pending. She did have an episode of chest discomfort occurring last night while she was playing working on her phone and resting in bed. Relieved with nitroglycerin which dropped her pressure and gave her headache. She is now comfortable at this time. Due to her short-term memory loss she is somewhat unclear regarding what the pain felt like and if it was similar to what she is felt in the past. She is unsure when her last stress test was. Objective - Vital Signs Vital signs: Vital Signs Temp 97.7 F 05/03/22 08:00 Pulse 63 05/03/22 08:00 Resp 18 05/03/22 08:00 BP 119/70 05/03/22 08:00 Pulse Ox 98 05/03/22 08:00 FiO2 Intake & Output 05/02/22 05/03/22 05/03/22 18:59 06:59 18:59 Intake Total 650 59 Output Total 1400 700 Balance -750 -700 59 Weight 78.5 kg Intake: Oral 650 59 Output: Urine 1400 700 Other: Voiding Method Toilet Toilet # Voids 2 - Exam PHYSICAL EXAMINATION: HEENT: Head is atraumatic, normocephalic. Pupils equal, round. Neck is supple. There is no elevated jugular venous pressure. HEART EXAMINATION: Heart sounds regular, S1 and S2 normal with a systolic murmur. CHEST EXAMINATION: Lungs reveal faint expiratory wheezing on the right. No chest wall tenderness is noted on palpation or with deep breathing. ABDOMEN: Soft, nontender. Bowel sounds are heard. No organomegaly noted. EXTREMITIES: 2+ peripheral pulses with no evidence of peripheral edema and no calf tenderness noted. NEUROLOGIC patient is awake, alert and oriented x3, poor short-term memory noted. . - Labs CBC & Chem 7: 04/29/22 13:26 05/02/22 10:06 Labs: Abnormal Lab Results - Last 24 Hours (Table) 05/02/22 Range/Units 10:06 BUN 73 H (7-17) mg/dL Creatinine 2.13 H (0.52-1.04) mg/dL Glucose 116 H (74-99) mg/dL Calcium 8.3 L (8.4-10.2) mg/dL Assessment and Plan Assessment: #1 acute on chronic diastolic congestive heart failure #2 CAD status post PCI to RCA #3 oxygen-dependent COPD #4 paroxysmal atrial fibrillation, maintaining sinus mechanism Plan: From cardiology's perspective medications were reviewed and will continue the same. If renal function remains stable patient may benefit from the addition of SGLT2-inhibitor as an outpatient. Patient will follow-up with Dr. Stockton in the office. CALENDERING MACHINE OPERATOR note has been reviewed, I agree with a documented findings and plan of care. Patient was seen and examined.
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
[2022-05-03 10:20] LABS: Basophils # (A) 0.01 X 10*3/uL (0.00-0.10); Basophils % (A) 0.1 %; Eosinophils # (A) 0 X 10*3/uL (0.04-0.35); Eosinophils % (A) 0 %; HGB 11.5 g/dL (12.0-15.0); Immature Grans, Automated 0.4 %; Lymphocytes # (A) 0.54 X 10*3/uL (0.90-5.00); Lymphocytes % (A) 7.2 %; MCH 32.1 pg (27.0-32.0); MCHC 31.1 g/dL (32.0-37.0); MCV 103.4 fL (80.0-97.0); Mean Platelet Volume 11.1 fL (9.5-12.2); Monocytes # (A) 0.22 X 10*3/uL (0.20-1.00); Monocytes % (A) 2.9 %; NRBC Per 100 WBC 0 /100 WBCS (0.0-0.0); Neutrophils # (A) 6.67 X 10*3/uL (1.80-7.70); Neutrophils % (A) 89.4 %; Platelet Count 216 X 10*3/uL (140-440); RBC 3.58 X 10*6/uL (4.10-5.20); RDW 14.4 % (11.5-14.5); WBC 7.47 X 10*3/uL (4.50-10.00)
[2022-05-03 10:39] LABS: African American GFR (CKD) 22.3 (60.0-200.0); Anion Gap 11.3 mmol/L (10.00-18.00); BUN/Creat Ratio 30.2 Ratio (12.00-20.00); Blood Urea Nitrogen 75.5 mg/dL (9.0-27.0); Calcium 8.5 mg/dL (8.7-10.3); Carbon Dioxide 28.2 mmol/L (20.0-27.5); Magnesium 2.2 mg/dL (1.5-2.4); Non-African American GFR(CKD) 19.2 (60.0-200.0); Potassium 3.9 mmol/L (3.5-5.5)
--- NOTE | 2022-05-03 10:49 | P.PN ---
Subjective Progress Note Date: 05/03/22 Patient's breathing is much better today. However, unfortunately, her labs show that she's developing acute kidney injury likely from over diuresis. Patient, however, has no other complaints at this time. She does report significant improvement in her neck pain with gabapentin that was started yesterday. Gen: in no apparent distress, resting comfortably in bed Eyes: PERRL, no scleral injection or icterus HENT: normocephalic, atraumatic, good hearing acuity, moist mucous membranes Neck: no tracheal deviation, full range of motion Resp: good air exchange, breathing comfortably with no accessory muscle use, no tactile fremitus, bilateral crackles CVS: good distal perfusion x 4, bilateral pitting edema, RRR no murmurs GI: soft, NTTP, ND, no hepatosplenomegaly : no suprapubic tenderness, no CVAT, benoit catheter is present MSK: no clubbing, no cyanosis, no noted contractures of extremities Skin: no noted rashes, petechiae; temperature of skin is appropriate Neuro: moving all extremities without signs of weakness, CN II-XII intact Psych: cooperative, euthymic mood, insight and judgment intact Assessment/plan: Acute Diastolic Heart Failure Exacerbation Acute kidney injury -I/Os, daily weights -Lasix switched from by mouth twice a day 2 by mouth daily -oxygen prn -Ordered repeat BMP, magnesium in the morning Neck pain from degenerative disc disease -Started gabapentin 100 mg 3 times a day -Hot compresses COPD mild exacerbation, resolved -Pulmonology consulted -Nebulizers as needed -Flutter valve -Mucomyst discontinued HTN HLD CAD - Home medications reviewed and reconciled Pt is full code DVT PPx with home eliquis Objective - Vital Signs Vital signs: Vital Signs Temp 97.7 F 05/03/22 08:00 Pulse 63 05/03/22 08:00 Resp 18 05/03/22 08:06 BP 119/70 05/03/22 08:00 Pulse Ox 98 05/03/22 08:00 FiO2 Intake & Output 05/02/22 05/03/22 05/03/22 18:59 06:59 18:59 Intake Total 650 59 Output Total 1400 700 Balance -750 -700 59 Weight 78.5 kg Intake: Oral 650 59 Output: Urine 1400 700 Other: Voiding Method Toilet Toilet Toilet # Voids 2 - Labs CBC & Chem 7: 05/03/22 06:07 05/03/22 06:07 Labs: Abnormal Lab Results - Last 24 Hours (Table) 05/03/22 05/03/22 Range/Units 06:07 06:07 RBC 3.58 L (4.10-5.20) X 10*6/uL Hgb 11.5 L (12.0-15.0) g/dL Hct 37.0 L (37.2-46.3) % MCV 103.4 H (80.0-97.0) fL MCH 32.1 H (27.0-32.0) pg MCHC 31.1 L (32.0-37.0) g/dL Lymphocytes # 0.54 L (0.90-5.00) X 10*3/uL Eosinophils # 0 L (0.04-0.35) X 10*3/uL Carbon Dioxide 28.2 H (20.0-27.5) mmol/L BUN 75.5 H (9.0-27.0) mg/dL Creatinine 2.5 H (0.6-1.5) mg/dL Est GFR (CKD-EPI)AfAm 22.3 L (60.0-200.0) Est GFR (CKD-EPI)NonAf 19.2 L (60.0-200.0) BUN/Creatinine Ratio 30.20 H (12.00-20.00) Ratio Glucose 153 H (70-110) mg/dL Calcium 8.5 L (8.7-10.3) mg/dL
[2022-05-03] MEDS: IPRATROPIUM-ALBUTEROL 3 ML NEB INHALATION PRN ×2 (11:19→17:02)
[2022-05-03] MEDS: methocarbamoL 500 MG TAB PO PRN (12:25)
[2022-05-03] MEDS: ATORVASTATIN 20 MG TAB PO SCH (20:48)
[2022-05-03] MEDS: QUEtiapine 100 MG TAB PO SCH (20:48)
[2022-05-03] MEDS: SERTRALINE 100 MG TAB PO SCH (20:48)
[2022-05-03] MEDS: ASPIRIN-ACET-CAFF 250-250-65MG 1 EACH TAB PO PRN (21:49)
[2022-05-03] MEDS ORDERED: CALCIUM CARBONATE LIQUID 500 MG/5 ML CUP PO STA (21:54)
[2022-05-04] MEDS: methylPREDNISolone SOD SUCCI 40 MG/ML 1 ML VIAL IV SCH ×2 (00:21→08:03)
[2022-05-04] MEDS: LEVOTHYROXINE 75 MCG TAB PO SCH (05:21)
[2022-05-04] MEDS: PANTOPRAZOLE 40 MG TABLET PO SCH (05:21)
[2022-05-04] MEDS: ASPIRIN-ACET-CAFF 250-250-65MG 1 EACH TAB PO PRN (05:47)
[2022-05-04] MEDS: MONTELUKAST 10 MG TAB PO SCH (08:04)
[2022-05-04] MEDS: METOPROLOL TARTRATE 25 MG TAB PO SCH (08:04)
[2022-05-04] MEDS: CHOLECALCIFEROL 25 MCG (1000 IU) TABLET PO SCH (08:04)
[2022-05-04] MEDS: GABAPENTIN 100 MG CAP PO SCH (08:04)
[2022-05-04] MEDS: VITAMIN A 10,000 UNIT (3000 MCG) CAPSULE PO SCH (08:04)
[2022-05-04] MEDS: allopurinoL 100 MG TAB PO SCH (08:04)
[2022-05-04] MEDS: APIXABAN 2.5 MG TABLET PO SCH (08:04)
[2022-05-04] MEDS: CYANOCOBALAMIN 500 MCG TAB PO SCH (08:04)
[2022-05-04] MEDS: FOLIC ACID 1 MG TAB PO SCH (08:04)
[2022-05-04] MEDS: AMIODARONE 100 MG TAB PO SCH (08:04)
[2022-05-04] MEDS ORDERED: FUROSEMIDE 40 MG TAB PO SCH (09:00)
[2022-05-04 09:06] VITALS: BP 107/68; PULSE 66; TEMP 97.6
[2022-05-04] MEDS: SYMBICORT 160-4.5 MCG INHALER INHALATION SCH (09:25)
--- NOTE | 2022-05-04 09:32 | P.PN ---
Subjective Progress Note Date: 05/04/22 HISTORY OF PRESENT ILLNESS: This is a pleasant 66-year-old female with history of COPD oxygen, hypertension, hyperlipidemia, hypothyroidism, paroxysmal atrial fibrillation and CAD with prior PCI of the RCA. Follows with Dr. Orozco on a regular basis. Presented to the hospital with worsening shortness of breath. NT proBNP was elevated. She was diuresed with IV Lasix and subsequently been transitioned to oral Lasix 40 mg by mouth twice a day. She feels her breathing is overall stable. She did develop some chest discomfort through the night after receiving her nebulizer tr eatment. She has a history of closed head injury and has a poor memory and is unable to determine whether this is similar to anything she is experienced in the past. Troponin was negative and EKG showed no ST-T wave changes. She did have a cardiac catheterization in September 2017 which showed patent stents in the RCA. She is unsure when her last stress test was. She said no recurrence of the chest discomfort. Vital signs are stable. He is maintaining sinus mechanism. Echocardiogram with Doppler study revealed normal LV function, moderate MR, mild TR, and mild and AR. 05/03/2022 Upon examination the patient is resting comfortably in bed. This morning labs are pending. She did have an episode of chest discomfort occurring last night while she was playing working on her phone and resting in bed. Relieved with nitroglycerin which dropped her pressure and gave her headache. She is now comfortable at this time. Due to her short-term memory loss she is somewhat unclear regarding what the pain felt like and if it was similar to what she is felt in the past. She is unsure when her last stress test was. 05/04/2022 Patient examined this morning at the bedside. Patient denies chest pain or pressure. She denies shortness of breath. She remains on oral Lasix. Vital s igns are stable. She is hoping to be discharged home today. PHYSICAL EXAM: VITAL SIGNS: Reviewed. GENERAL: Well-developed in no acute distress. NECK: Supple. No JVD or thyromegaly LUNGS: Respirations even and unlabored. Lungs essentially clear to auscultation bilaterally. HEART: Regular rate and rhythm. S1 and S2 heard. EXTREMITIES: Normal range of motion. No clubbing or cyanosis. Peripheral pulses intact. No lower extremity edema ASSESSMENT: #1 acute on chronic diastolic congestive heart failure #2 CAD status post PCI to RCA #3 oxygen-dependent COPD #4 paroxysmal atrial fibrillation, maintaining sinus mechanism #5 acute kidney injury PLAN: Continue current cardiac medications Await renal function from this morning If patient remains stable she may be discharged home this afternoon from a cardiac standpoint and follow up outpatient with Dr. Stockton Nurse practitioner note has been reviewed by physician. Signing provider agrees with the documented findings, assessment, and plan of care. Objective - Vital Signs Vital signs: Vital Signs Temp 97.6 F 05/04/22 08:00 Pulse 66 05/04/22 08:00 Resp 18 05/04/22 08:00 BP 107/68 05/04/22 08:00 Pulse Ox 98 05/04/22 08:00 FiO2 Intake & Output 05/03/22 05/04/22 05/04/22 18:59 06:59 18:59 Intake Total 532 Output Total 700 700 Balance -168 -700 Weight 79 kg Intake: Oral 532 Output: Urine 700 700 Other: Voiding Method Toilet Toilet Toilet - Labs CBC & Chem 7: 05/03/22 06:07 05/03/22 06:07 Labs: Abnormal Lab Results - Last 24 Hours (Table) 05/03/22 05/03/22 Range/Units 06:07 06:07 RBC 3.58 L (4.10-5.20) X 10*6/uL Hgb 11.5 L (12.0-15.0) g/dL Hct 37.0 L (37.2-46.3) % MCV 103.4 H (80.0-97.0) fL MCH 32.1 H (27.0-32.0) pg MCHC 31.1 L (32.0-37.0) g/dL Lymphocytes # 0.54 L (0.90-5.00) X 10*3/uL Eosinophils # 0 L (0.04-0.35) X 10*3/uL Carbon Dioxide 28.2 H (20.0-27.5) mmol/L BUN 75.5 H (9.0-27.0) mg/dL Creatinine 2.5 H (0.6-1.5) mg/dL Est GFR (CKD-EPI)AfAm 22.3 L (60.0-200.0) Est GFR (CKD-EPI)NonAf 19.2 L (60.0-200.0) BUN/Creatinine Ratio 30.20 H (12.00-20.00) Ratio Glucose 153 H (70-110) mg/dL Calcium 8.5 L (8.7-10.3) mg/dL
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
[2022-05-04 10:51] LABS: African American GFR (CKD) 23.4 (60.0-200.0); Anion Gap 14.4 mmol/L (10.00-18.00); BUN/Creat Ratio 34.29 Ratio (12.00-20.00); Blood Urea Nitrogen 82.3 mg/dL (9.0-27.0); Calcium 8.5 mg/dL (8.7-10.3); Carbon Dioxide 23.6 mmol/L (20.0-27.5); Magnesium 2.3 mg/dL (1.5-2.4); Non-African American GFR(CKD) 20.2 (60.0-200.0); Potassium 3.6 mmol/L (3.5-5.5)
--- NOTE | 2022-05-04 17:18 | P.DS ---
Providers Date of admission: 04/29/22 15:43 Expected date of discharge: 05/04/22 Attending physician: Bereniec Hilario MD Consults: 04/30/22 07:52 Consult Physician Routine Consulting Provider: Rosie Sotomayor Consult Reason/Comments: CHF exacerbation/dyspnea Do you want consulting provider notified?: Yes Primary care physician: [facility] Course: 66-year-old woman with medical history of COPD, hypertension, hyperlipidemia, CAD status post stenting, heart failure presented with dyspnea. Patient says that she was lying in her bed and woke from sleep with significant shortness of breath. She says that lying flat makes her shortness of breath worse. She noticed increasing swelling in her legs. She has trouble with history telling due to close brain injury many years ago, but is able to remember some details about her medical history. Rest of history is taken with on speaker phone. From my understanding, this is been 1-1/2 days of shortness of breath similar to previous episodes of heart failure exacerbation. Patient was a previous smoker but has quit many years ago. She denies fevers, chills, nausea, vomiting, chest pain, palpitations, syncope, presyncope, cough, abdominal pain, constipation, diarrhea, dysuria, dyschezia, numbness/weakness of extremities. In the emergency room patient was afebrile, 139/93, heart rate 85, 97% on 2 L nasal cannula. CBC is unremarkable. Chemistries show potassium of 5.3, chloride of 108, BUN of 30, creatinine 1.67, otherwise unremarkable. Liver function tests show alkaline phosphatase of 144. BNP was 3100. Troponin was less than 0.012. Influenza A, B, RSV, Covid were negative. Chest x-ray shows cardiac megaly and volume overload. EKG shows normal sinus rhythm without evidence of ischemia. Cardiology was consulted for CHF exacerbation. Patient was diuresed with intravenous Lasix. Pulmonology was consulted for COPD exacerbation. She was started on bronchodilators and Solu-Medrol. Her respiratory status considerably improve during her hospitalization. Patient was seen and examined. No acute events overnight. Patient reports breathing back to baseline. She is comfortable being discharged home today. Pertinent studies include chest x-ray, echocardiogram Gen: in no apparent distress, resting comfortably in bed Eyes: no scleral injection or icterus HENT: normocephalic, atraumatic, good hearing acuity, moist mucous membranes Neck: no tracheal deviation, full range of motion Resp: good air exchange, breathing comfortably with no accessory muscle use, no tactile fremitus CVS: good distal perfusion x 4, bilateral pitting edema, RRR no murmurs GI: soft, NTTP, ND, no hepatosplenomegaly : no suprapubic tenderness, no CVAT, benoit catheter is present MSK: no clubbing, no cyanosis, no noted contractures of extremities Skin: no noted rashes, petechiae; temperature of skin is appropriate Neuro: moving all extremities without signs of weakness Psych: cooperative, euthymic mood, insight and judgment intact Discharge diagnosis: Acute Diastolic Heart Failure Exacerbation Acute kidney injury Neck pain from degenerative disc disease COPD mild exacerbation, resolved HTN HLD CAD Patient is advised to follow-up with her PCP within 1-2 days of discharge. She is advised to follow-up with cardiology and pulmonology within 1 week of discharge. She'll be discharged home with Lasix 40 mg by mouth daily. She is also discharge home on a prednisone taper. Plans to repeat BMP within 3 days, results to be followed up with PCP. Patient verbalized understanding of the plan. Patient Condition at Discharge: Fair Plan - Discharge Summary Discharge Rx Participant: Yes New Discharge Prescriptions: New predniSONE 0 mg PO DIRECTED #30 tab Continue Nitroglycerin Sl Tabs [Nitrostat] 0.4 mg SUBLINGUAL Q5M PRN PRN Reason: Chest Pain Sertraline HCl [Zoloft] 100 mg PO HS Ipratropium-Albuterol Nebulize [Duoneb 0.5 mg-3 mg/3 ml Soln] 3 ml INHALATION RT-QID PRN PRN Reason: Shortness Of Breath Atorvastatin [Lipitor] 20 mg PO HS Levothyroxine Sodium [Synthroid] 75 mcg PO DAILY QUEtiapine [SEROquel] 100 mg PO HS Albuterol Inhaler [Ventolin Hfa Inhaler] 2 puff INHALATION RT-QID PRN PRN Reason: Shortness Of Breath Cholecalciferol [Vitamin D3 (25 Mcg = 1000 Iu)] 50 mcg PO DAILY Budesonide-Formot 160-4.5 Mcg [Symbicort 160-4.5 Mcg Inhaler] 2 puff INHALATION RT-BID #1 each Furosemide [Lasix] 20 mg PO BID@0900,1600 #60 tab allopurinoL [Zyloprim] 100 mg PO BID Montelukast [Singulair] 10 mg PO DAILY Omeprazole 20 mg PO DAILY Amiodarone [Cordarone] 100 mg PO DAILY Vitamin A Acetate [Vitamin A] 10,000 unit SL DAILY Cyanocobalamin [Vitamin B-12] 500 mcg PO DAILY Metoprolol Tartrate [Lopressor] 25 mg PO DAILY tab Folic Acid 0.4 mg PO DAILY Apixaban [Eliquis] 2.5 mg PO BID calcitrioL [Calcitriol] 0.25 mcg PO TH Discharge Medication List Nitroglycerin Sl Tabs [Nitrostat] 0.4 mg SUBLINGUAL Q5M PRN 12/29/13 [History] Sertraline HCl [Zoloft] 100 mg PO HS 12/22/18 [History] Ipratropium-Albuterol Nebulize [Duoneb 0.5 mg-3 mg/3 ml Soln] 3 ml INHALATION RT-QID PRN 02/26/19 [History] Atorvastatin [Lipitor] 20 mg PO HS 03/09/19 [History] Levothyroxine Sodium [Synthroid] 75 mcg PO DAILY 06/17/19 [History] QUEtiapine [SEROquel] 100 mg PO HS 06/17/19 [History] Albuterol Inhaler [Ventolin Hfa Inhaler] 2 puff INHALATION RT-QID PRN 10/09/20 [History] Montelukast [Singulair] 10 mg PO DAILY 10/09/20 [History] Omeprazole 20 mg PO DAILY 10/09/20 [History] allopurinoL [Zyloprim] 100 mg PO BID 10/09/20 [History] Amiodarone [Cordarone] 100 mg PO DAILY 01/17/22 [History] Cholecalciferol [Vitamin D3 (25 Mcg = 1000 Iu)] 50 mcg PO DAILY 01/17/22 [History] Cyanocobalamin [Vitamin B-12] 500 mcg PO DAILY 01/17/22 [History] Vitamin A Acetate [Vitamin A] 10,000 unit SL DAILY 01/17/22 [History] Budesonide-Formot 160-4.5 Mcg [Symbicort 160-4.5 Mcg Inhaler] 2 puff INHALATION RT-BID #1 each 01/31/22 [Rx] Metoprolol Tartrate [Lopressor] 25 mg PO DAILY tab 02/01/22 [Rx] Apixaban [Eliquis] 2.5 mg PO BID 04/29/22 [History] Folic Acid 0.4 mg PO DAILY 04/29/22 [History] calcitrioL [Calcitriol] 0.25 mcg PO TH 04/29/22 [History] Furosemide [Lasix] 20 mg PO BID@0900,1600 #60 tab 05/04/22 [Rx] predniSONE 0 mg PO DIRECTED #30 tab 05/04/22 [Rx] Follow up Appointment(s)/Referral(s): Santiago Briseno MD [STAFF PHYSICIAN] - 05/15/22 8:30 am Pola Stockton MD [STAFF PHYSICIAN] - 05/15/22 1:30 pm (Carotid Study 05/15/22 1:[address] Stockton for Carotid and recent hospital admission 05/25/22 4pm) Mai Doss MD [Primary Care Provider] - 05/11/22 10:15 am Yohannes Ramos MD [STAFF PHYSICIAN] - 1 Week (possible RF ablation for neck pain Office will contact you to set up appointment once consent at PCP office signed.) Ambulatory/Diagnostic Orders: Basic Metabolic Panel [LAB.AMB] Time Frame: 3 Days, Location: None Selected Patient Instructions/Handouts: Furosemide (By mouth), Prednisone (By mouth), Heart Failure (DC), Acute Bronchitis (GEN), COPD (Chronic Obstructive Pulmonary Disease) (DC), Low-Sodium Diet (DC), Fluid Restriction (DC) Activity/Diet/Wound Care/Special Instructions: Diet: Low salt, 1.5 L fluid restrictions. Repeat BMP in 3 days follow up results with PCP. Follow up with Cardiology in 1 week Follow up with Pulmonology in 1 week Discharge Disposition: HOME SELF-CARE
[2022-05-05] MEDS ORDERED: predniSONE 20 MG TAB PO SCH (09:00)
== END 2022-05-04 12:06 | disposition home or self-care (01) | DRG 291 ==
LOC: EC 12:56 → 6NMEDSUR 15:43 → OBSVTOIN 15:43 → 6NMEDSUR 16:31
PROVIDERS: ADMIT Internal Medicine; ATTEND Internal Medicine
DX: I13.0 Hypertensive heart and chronic kidney disease with heart failure and stage 1 through stage 4 chronic kidney disease, or unspecified chronic kidney disease (principal); I50.31 Acute diastolic (congestive) heart failure; I50.33 Acute on chronic diastolic (congestive) heart failure; J44.1 Chronic obstructive pulmonary disease with (acute) exacerbation; N17.9 Acute kidney failure, unspecified; Z99.11 Dependence on respirator [ventilator] status; Z20.822 Contact with and (suspected) exposure to COVID-19; M19.90 Unspecified osteoarthritis, unspecified site; I25.10 Atherosclerotic heart disease of native coronary artery without angina pectoris; E78.5 Hyperlipidemia, unspecified; F31.9 Bipolar disorder, unspecified; F41.9 Anxiety disorder, unspecified; I27.20 Pulmonary hypertension, unspecified; I48.0 Paroxysmal atrial fibrillation; J20.9 Acute bronchitis, unspecified; N18.30 Chronic kidney disease, stage 3 unspecified; I08.3 Combined rheumatic disorders of mitral, aortic and tricuspid valves; T50.2X5A Adverse effect of carbonic-anhydrase inhibitors, benzothiadiazides and other diuretics, initial encounter; Z79.51 Long term (current) use of inhaled steroids; Z79.890 Hormone replacement therapy; Z79.01 Long term (current) use of anticoagulants; Z79.899 Other long term (current) drug therapy; Z86.718 Personal history of other venous thrombosis and embolism; Z86.73 Personal history of transient ischemic attack (TIA), and cerebral infarction without residual deficits; Z87.01 Personal history of pneumonia (recurrent); Z87.820 Personal history of traumatic brain injury; Z87.828 Personal history of other (healed) physical injury and trauma; Z90.710 Acquired absence of both cervix and uterus; Z95.5 Presence of coronary angioplasty implant and graft; Z86.14 Personal history of Methicillin resistant Staphylococcus aureus infection; Z99.81 Dependence on supplemental oxygen; Z88.1 Allergy status to other antibiotic agents; Z88.2 Allergy status to sulfonamides; Z88.8 Allergy status to other drugs, medicaments and biological substances; R01.1 Cardiac murmur, unspecified; Z90.49 Acquired absence of other specified parts of digestive tract
CPT/HCPCS: 36415; 71045; 71046; 80048; 80053; 83605; 83735; 83880; 84145; 84484; 85025; 85610; 85730; 87636; 93005; 93306; 94640; 94667; 94668; 94760; 96374; 99285

== ENCOUNTER → 2022-06-17 | Outpatient (CLI) | payer MEDICARE, OTHER ==
[2022-06-17 13:52] VITALS: BP 123/78; PULSE 70; RESP 18; TEMP 98.9
--- NOTE | 2022-06-17 15:14 | P.PAINPG ---
PQRS Measure Charge Sheet Comment: A 66 yr old female w at side with a history of severe and chronic LBP secondary to lumbar DDD and spondylosis with facet arthropathy without myelopathy presents today for evaluation s/p BL facet block of the medial branches L4-L5, L5-S1 #1. Pt states she experienced % pain relief x hrs s/p procedure. Pain level is provoked at 10 /10 in intensity, constant, localized in the lumbar spine, sharp in character w shooting towards the mid back. Pain is provoked by walking/ sitting for periods of 15 min or more, or bending. Pain is alleviated with KT-tape, sitting, repositioning and rest. Interventional pain procedures completed include BL MBB L3-L5 x1 Patient is currently on DENIES Patient denies any side effects of the medication(s), denies excessive drowsiness or sleepiness, denies suicidal ideation and reports that the current pain medication is helping to control the pain and improve activities of daily living. Patient denies any motor or sensory deficits. Patient denies any fever or night sweats, denies any change in the bowel movements or urination. Physical Examination: -Constitutional: Cooperative. Not in acute distress . - Neurologic: Cranial nerve II to XII intact. No focal neurological deficits. - Psychatric: Alert & oriented x 3. Matching mood & appropriate affect. Judg ment and insight intact. - Musculoskeletal: Cervical spine: Muscle bulk/ tone/ strength in the bilateral upper extremities normal Vertebral body tenderness to palpation over Spurling test positive Distraction test positive Facet loading test positive TTP Thoracic spine Muscle bulk / tone/ strength in the bilateral paraspinal muscles normal Vertebral body tender to palpation over Facet loading test positive TTP Lumbar spine: Motor bulk/ tone/ strength lower extremities , thigh and legs : 5/5 Deep tendon reflexes : Normal Knee Jerk. Normal Ankle Jerk . Vertebral body tenderness to palpation over Lumbar Facet Loading Test positive TTP over BL L4-L5, L5-S1 facets Straight Leg Raise: positive at 30 degrees right side/ left side Gaenslen's Test positive Sacral spine : Severe tenderness over the Sacroiliac joint: right side / left side Range of motion: Flexion of the lumbar spine <60 degrees Range of motion: Extension of the lumbar spine <20 degrees Gaenslen's Test positive right side / left side Sandoval test: positive right side / left side Thigh Thrust Test positive right side / left side Sacral Thrust Test positive right side / left side Assessment and plan: Chronic LBP secondary to lumbar DDD, spondylosis with facet arthropathy without myelopathy Recommendation of BL facet block of the medial branches L4-L5, L5-S1 #2. May need a series of injections, up until RFA, for optimal pain relief. Risks, benefits of procedure discussed and pt verbalized understanding. Admits to anticoagulant use or medical history of diabetes. Protocol for discontinuation/ continuation of medications riky procedure discussed. All questions answered. I have spent less than 30 minutes on patient care today. Dr Ramos was available by phone for the evaluation of this patient. The time was used to review the medical records including relevant urine studies and Prescription history (MAPs), review of the available imaging, evaluation and examination of the patient, coordination of care with the medical staff and if applicable referring physicians, as well as creation of the medical record PQRS Narrative: Smoking Status Former smoker Hx Alcohol Use (MH) No Home Medications: Ambulatory Orders Nitroglycerin Sl Tabs [Nitrostat] 0.4 mg SUBLINGUAL Q5M PRN 12/29/13 Sertraline HCl [Zoloft] 100 mg PO HS 12/22/18 Ipratropium-Albuterol Nebulize [Duoneb 0.5 mg-3 mg/3 ml Soln] 3 ml INHALATION RT-QID PRN 02/26/19 Atorvastatin [Lipitor] 20 mg PO HS 03/09/19 Levothyroxine Sodium [Synthroid] 75 mcg PO DAILY 06/17/19 QUEtiapine [SEROquel] 100 mg PO HS 06/17/19 Albuterol Inhaler [Ventolin Hfa Inhaler] 2 puff INHALATION RT-QID PRN 10/09/20 Montelukast [Singulair] 10 mg PO DAILY 10/09/20 Omeprazole 20 mg PO DAILY 10/09/20 allopurinoL [Zyloprim] 100 mg PO BID 10/09/20 Amiodarone [Cordarone] 100 mg PO DAILY 01/17/22 Cholecalciferol [Vitamin D3 (25 Mcg = 1000 Iu)] 50 mcg PO DAILY 01/17/22 Cyanocobalamin [Vitamin B-12] 500 mcg PO DAILY 01/17/22 Vitamin A Acetate [Vitamin A] 10,000 unit SL DAILY 01/17/22 Budesonide-Formot 160-4.5 Mcg [Symbicort 160-4.5 Mcg Inhaler] 2 puff INHALATION RT-BID #1 each 01/31/22 Metoprolol Tartrate [Lopressor] 25 mg PO DAILY tab 02/01/22 Apixaban [Eliquis] 2.5 mg PO BID 04/29/22 Folic Acid 0.4 mg PO DAILY 04/29/22 calcitrioL [Calcitriol] 0.25 mcg PO TH 04/29/22 Furosemide [Lasix] 20 mg PO BID@0900,1600 #60 tab 05/04/22 Gabapentin [Neurontin] 400 mg PO TID 05/18/22 Controlled Substance Measures - Controlled Substance Measures Is patient prescribed a controlled substance at discharge?: No
== END ==
LOC: PNWHC3 12:06
PROVIDERS: ATTEND Specialist
DX: M51.36 Other intervertebral disc degeneration, lumbar region (principal); M47.816 Spondylosis without myelopathy or radiculopathy, lumbar region; G89.29 Other chronic pain; Z87.891 Personal history of nicotine dependence; Z88.2 Allergy status to sulfonamides; Z88.8 Allergy status to other drugs, medicaments and biological substances
CPT/HCPCS: 99211

== ENCOUNTER 2022-07-10 17:16 | Emergency (ER) | payer MEDICARE, OTHER ==
[2022-07-10 17:26] VITALS: TEMP 98.3
--- NOTE | 2022-07-10 17:55 | XR ---
EXAMINATION TYPE: XR KUB DATE OF EXAM: 07/10/2022 Comparison: None Clinical History: 67-year-old female constipation Findings: Lung bases are clear. No evidence for free intraperitoneal air. Dextroconvex curvature of the lumbar spine. Cholecystectomy clips. There is moderate stool burden with air and stool extending distally to the rectum. No dilate d small bowel or air-fluid levels. A few left-sided pelvic phleboliths. Impression: No evidence for free air or bowel obstruction. Moderate overall stool burden. Findings may reflect co nstipation.
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
[2022-07-10 19:46] VITALS: BP 120/60; PULSE 68; RESP 16
== END 2022-07-10 19:59 | disposition home or self-care (01) ==
LOC: EC 17:16
DX: K59.00 Constipation, unspecified (principal); I13.0 Hypertensive heart and chronic kidney disease with heart failure and stage 1 through stage 4 chronic kidney disease, or unspecified chronic kidney disease; I50.9 Heart failure, unspecified; N18.9 Chronic kidney disease, unspecified; J44.9 Chronic obstructive pulmonary disease, unspecified; I25.10 Atherosclerotic heart disease of native coronary artery without angina pectoris; I48.0 Paroxysmal atrial fibrillation; F41.9 Anxiety disorder, unspecified; E78.5 Hyperlipidemia, unspecified; E03.9 Hypothyroidism, unspecified; F31.9 Bipolar disorder, unspecified; K21.9 Gastro-esophageal reflux disease without esophagitis; Z79.01 Long term (current) use of anticoagulants; Z79.890 Hormone replacement therapy; Z79.899 Other long term (current) drug therapy; Z86.718 Personal history of other venous thrombosis and embolism; Z86.73 Personal history of transient ischemic attack (TIA), and cerebral infarction without residual deficits; Z87.891 Personal history of nicotine dependence; Z88.1 Allergy status to other antibiotic agents; Z88.2 Allergy status to sulfonamides; Z90.49 Acquired absence of other specified parts of digestive tract; Z99.2 Dependence on renal dialysis
CPT/HCPCS: 74018; 99284

== ENCOUNTER 2022-07-11 04:18 | Emergency (ER) | payer MEDICARE, OTHER ==
[2022-07-11 04:24] VITALS: TEMP 98
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
[2022-07-11 04:41] LABS: Basophils % (A) 0 %; Eosinophils # (A) 0.3 k/uL (0-0.7); Eosinophils % (A) 2 %; HCT 40.7 % (34.0-46.0); HGB 13.6 gm/dL (11.4-16.0); Lymphocytes # (A) 1.2 k/uL (1.0-4.8); Lymphocytes % (A) 9 %; MCH 32.3 pg (25.0-35.0); MCHC 33.5 g/dL (31.0-37.0); Monocytes # (A) 0.5 k/uL (0-1.0); Monocytes % (A) 3 %; Neutrophils % (A) 86 %; RBC 4.22 m/uL (3.80-5.40); RDW 15.2 % (11.5-15.5)
[2022-07-11 04:52] LABS: MCV 96.4 fL (80.0-100.0); Platelet Count 222 k/uL (150-450)
[2022-07-11 04:55] LABS: Albumin 4.1 g/dL (3.5-5.0); Calcium 9.1 mg/dL (8.4-10.2); Potassium 3.2 mmol/L (3.5-5.1); Total Bilirubin 0.6 mg/dL (0.2-1.3); Total Protein 7.8 g/dL (6.3-8.2)
[2022-07-11 07:01] VITALS: PULSE 89
--- NOTE | 2022-07-11 07:10 | CT ---
EXAMINATION TYPE: CT abdomen pelvis wo con DATE OF EXAM: 07/11/2022 COMPARISON: 02/28/2020 HISTORY: Lower abdominal pain Automated exposure control for dose reduction was used. TECHNIQUE: Helical acquisition of images was performed from the lung bases through the pelvis. FINDINGS: There are mild emphysematous changes in the lung bases. There is a moderate hiatal hernia There are surgical absence of gallbladder. There is no organomegaly of the liver, pancreas, spleen or adrenal glands. There are no renal calcifications or process. The atrophic caliber the aorta is normal. The bowel loops are normal in caliber and there is no evidence of obstruction. There is mild divertic ulosis of the descending colon and there is mild stranding in the pericolic fat adjacent to the desce nding colon and mild thickening of the colonic wall consistent with diverticulitis. There is no absce ss free intraperitoneal air or fluid. There is no pelvic mass free fluid, abscess or adenopathy. There are surgical absence of the uterus. The osseous structures are intact. The abdominal wall is intact. IMPRESSION: 1. Mild emphysematous changes in the lung bases. 2. Moderate hiatal hernia. 3. Findings most consistent with mild diverticulitis of the descending colon as described above.
[2022-07-11 07:34] VITALS: BP 112/72; RESP 18
== END 2022-07-11 08:43 | disposition home or self-care (01) ==
LOC: EC 04:18
DX: K57.92 Diverticulitis of intestine, part unspecified, without perforation or abscess without bleeding (principal); I13.0 Hypertensive heart and chronic kidney disease with heart failure and stage 1 through stage 4 chronic kidney disease, or unspecified chronic kidney disease; I50.9 Heart failure, unspecified; N18.9 Chronic kidney disease, unspecified; I25.10 Atherosclerotic heart disease of native coronary artery without angina pectoris; J44.9 Chronic obstructive pulmonary disease, unspecified; E78.5 Hyperlipidemia, unspecified; E03.9 Hypothyroidism, unspecified; K21.9 Gastro-esophageal reflux disease without esophagitis; I48.0 Paroxysmal atrial fibrillation; F31.9 Bipolar disorder, unspecified; F41.9 Anxiety disorder, unspecified; Z87.891 Personal history of nicotine dependence; Z86.718 Personal history of other venous thrombosis and embolism; Z86.73 Personal history of transient ischemic attack (TIA), and cerebral infarction without residual deficits; Z99.2 Dependence on renal dialysis; Z79.01 Long term (current) use of anticoagulants; Z79.890 Hormone replacement therapy; Z79.899 Other long term (current) drug therapy; Z88.2 Allergy status to sulfonamides; Z88.1 Allergy status to other antibiotic agents; Z90.49 Acquired absence of other specified parts of digestive tract; Z95.5 Presence of coronary angioplasty implant and graft
CPT/HCPCS: 36415; 74176; 80053; 83690; 85025; 99284

== ENCOUNTER → 2022-07-14 | Day surgery (SDC) | payer MEDICARE, OTHER ==
[2022-07-09 14:57] VITALS: BMI 29.5
[~2022-07-14] MED LIST changes: -LIDOCAINE 1% 20 ML VIAL (10MG/ML) FOR IV START INTRADERMA PRN
== END ==
LOC: ORPAIN 11:54
PROVIDERS: ATTEND Hospitalist
DX: M47.816 Spondylosis without myelopathy or radiculopathy, lumbar region (principal); Z53.8 Procedure and treatment not carried out for other reasons

== ENCOUNTER 2022-07-30 10:35 | Day surgery (SDC) | payer MEDICARE, OTHER ==
[2022-07-28 14:29] VITALS: BMI 30.2
[2022-07-30] MEDS ORDERED: LIDOCAINE 1% (10MG/ML) FOR IV START INTRADERMA PRN (10:54)
[2022-07-30] MEDS ORDERED: LACTATED RINGERS 1,000 ML IV SCH (10:54)
[2022-07-30 11:22] VITALS: TEMP 97.2
[2022-07-30] MEDS ORDERED: methylPREDNISolone ACETATE 40 MG/ML 1 ML VIAL ONE (12:07)
[2022-07-30] MEDS ORDERED: MIDAZOLAM 2 MG/2 ML VIAL ONE (12:07)
[2022-07-30] MEDS ORDERED: ROPIVACAINE 5 MG/ML 20 ML AMPULE ONE (12:07)
--- NOTE | 2022-07-30 12:29 | P.PCN ---
Date of Procedure: 07/30/22 Procedure(s) Performed: PREOPERATIVE DIAGNOSIS : 1- Lumbar spondylosis with Facet Arthropathy without myelopathy . 2- Lumber degenerative disc disease POSTOPERATIVE DIAGNOSIS: 1- Lumbar spondylosis with Facet Arthropathy without myelopathy . 2- Lumber degenerative disc disease PROCEDURE: Diagnostic bilateral L3 , L4 , and L5 medial branch block under fluoroscopy guidance(fluoroscopy images available in the radiology Department ) ( To target the facet joint between bilateral L4-5 , and L5-S1 )# 2nd ANESTHESIA:, Moderate Sedation with Versed 1 mg. Sedation was started at 12:15 , end at 1226 EBL: Minimal COMPLICATION: None PROCEDURE INDICATION: Chronic low back pain secondary to Facet arthropathy unresponsive to conservative treatment. PROCEDURE DESCRIPTION: the patient was seen and identified in the preop holding area , risks and benefits and possible complications of the procedure and alternative were discussed with the patient, and the patient agreed to proceed with the procedure and signed the consent and vital signs monitored during the procedure and fluoroscopy was used to maximize the benefit and accuracy of the needle placement, and sedation was given to decrease patient anxiety, patient was taken to the procedure room and placed in prone position vital signs monitored in the back prepped with chlorhexidine X3 then under strict sterile technique using a right oblique fluoroscopy ,the junction of the transverse process and the superior articulating process of the right L3 , L4 , and L5 vertebra which corresponding to the fluoroscopy image of the eye of the Alfred dog on the block side for the medial branches and subsequently , after local infiltration of skin and subcu tissuies with Ropivacaine 0.5 % , one mL at each level ,then 22-gauge Quincke-type needles , 3 needle was used , each one of them placed at the junction of the base of the transverse process and the superior articular process at the appropriate level, and the needle was advanced until the periosteum contacted, needle placement confirmed with AP oblique and lateral view and after appropriate needle placement confirmed, and after negative aspiration for heme and CSF and there was no paresthesia 1-1/2 mL of Ropivacaine 0.5% mixed with 20 mg Depo-Medrol , then half mL injected at each level after negative aspiration the needle subsequently removed and the same procedure repeated for the left side at left side at L3 , L4 and L5 levels. At the end of the procedure and the needles removed and a bandage applied after the skin was cleaned the cleaning solution patient taken to recovery room in stable condition and monitors in the recovery room for 20-30 minutes and discharged home in stable condition after discharge criteria met and patient will follow up with the pain clinic in 2-4 weeks
[2022-07-30] MEDS ORDERED: IV FLUID CONTINUATION 700 ML IV ONE (12:34)
[2022-07-30 12:40] VITALS: RESP 20
[2022-07-30 12:49] VITALS: BP 119/61; PULSE 79
--- NOTE | 2022-07-30 14:28 | FL ---
EXAMINATION TYPE: FL guided pain mgmt statistic DATE OF EXAM: 07/30/2022 FLUOROSCOPY Fluoroscopy time of 21 seconds was used during bilateral lumbar facet blocks. 4 image/s document/s t he procedure. 0.20188 DAP
== END 2022-07-30 13:17 ==
LOC: ORPAIN 10:35
PROVIDERS: ATTEND Specialist
DX: M51.36 Other intervertebral disc degeneration, lumbar region (principal); M47.816 Spondylosis without myelopathy or radiculopathy, lumbar region; G89.29 Other chronic pain; Z79.01 Long term (current) use of anticoagulants
CPT/HCPCS: 64493; 64494 ×2; 99152; J2250; J1030; J2795

== ENCOUNTER → 2022-08-17 | Outpatient (CLI) | payer MEDICARE, OTHER ==
[2022-08-17 14:01] VITALS: BP 133/78; PULSE 73; RESP 18; TEMP 98.2
--- NOTE | 2022-08-17 14:01 | P.PAINPG ---
PQRS Measure Charge Sheet Comment: A 67 yr old female w at side with a history of severe and chronic LBP secondary to lumbar DDD and spondylosis with facet arthropathy without myelopathy presents today for evaluation s/p BL MBB L4-L5, L5-S1 #2. Pt states she experienced 100 % pain relief x 8 hrs s/p procedure. Pain level is provoked at 10/10 in intensity, constant, localized in the lumbar spine, sharp in character w/o shooting pain. Pain is provoked by standing/ walking for periods of 10 min or more. Pain is alleviated with injections, ice, heat, reclining, use of KT tape, repositioning and rest. Interventional pain procedures completed include BL MBB L3-L5 x2 Patient is currently on DENIES Patient denies any side effects of the medication(s), denies excessive drowsiness or sleepiness, denies suicidal ideation and reports that the current pain medication is helping to control the pain and improve activities of daily living. Patient denies any motor or sensory deficits. Patient denies any fever or night sweats, denies any change in the bowel movements or urination. Physical Examination: -Constitutional: Cooperative. Not in acute distress . - Neurologic: Cranial nerve II to XII intact. No focal neurological deficits. - Psychatric: Alert & oriented x 3. Matching mood & appropriate affect. Judgment and insight intact. - Musculoskeletal: Cervical spine: Muscle bulk/ tone/ strength in the bilateral upper extremities normal Vertebral body tenderness to palpation over Spurling test positive Distraction test positive Facet loading test positive TTP Thoracic spine Muscle bulk / tone/ strength in the bilateral paraspinal muscles normal Vertebral body tender to palpation over Facet loading test positive TTP Lumbar spine: Motor bulk/ tone/ strength lower extremities , thigh and legs : 5/5 Deep tendon reflexes : Normal Knee Jerk. Normal Ankle Jerk . Vertebral body tenderness to palpation over Lumbar Facet Loading Test positive of BL L4-L5, L5-S1 Straight Leg Raise: positive at 30 degrees right side/ left side Gaenslen's Test positive Sacral spine : Severe tenderness over the Sacroiliac joint: right side / left side Range of motion: Flexion of the lumbar spine <60 degrees Range of motion: Extension of the lumbar spine <20 degrees Gaenslen's Test positive right side / left side Sandoval test: positive right side / left side Thigh Thrust Test positive right side / left side Sacral Thrust Test positive right side / left side Assessment and plan: Chronic LBP secondary to lumbar DDD, spondylosis with facet arthropathy without myelopathy Recommendation of BL RFA L4-L5, L5-S1. Pt exhibited sufficient and substantial pain relief s/p prior facet block of the medial branch procedures. Risks, benefits of procedure discussed and pt verbalized understanding. Admits to anticoagulant use or medical history of diabetes. Protocol for discontinuation/ continuation of medications riky procedure discussed. Minimal anesthesia provided per pt preference consisting of Versed and Fentanyl. All questions answered. I have spent less than 30 minutes on patient care today. Dr Ramos was available by phone for the evaluation of this patient. The time was used to review the medical records including relevant urine studies and Prescription history (MAPs), review of the available imaging, evaluation and examination of the patient, coordination of care with the medical staff and if applicable referring physicians, as well as creation of the medical record PQRS Narrative: Smoking Status Former smoker Hx Alcohol Use (MH) No Home Medications: Ambulatory Orders Nitroglycerin Sl Tabs [Nitrostat] 0.4 mg SUBLINGUAL Q5M PRN 12/29/13 Sertraline HCl [Zoloft] 100 mg PO HS 12/22/18 Ipratropium-Albuterol Nebulize [Duoneb 0.5 mg-3 mg/3 ml Soln] 3 ml INHALATION RT-QID PRN 02/26/19 Atorvastatin [Lipitor] 20 mg PO HS 03/09/19 Levothyroxine Sodium [Synthroid] 75 mcg PO DAILY 06/17/19 QUEtiapine [SEROquel] 100 mg PO HS 06/17/19 Albuterol Inhaler [Ventolin Hfa Inhaler] 2 puff INHALATION RT-QID PRN 10/09/20 Montelukast [Singulair] 10 mg PO DAILY 10/09/20 Omeprazole 20 mg PO DAILY 10/09/20 allopurinoL [Zyloprim] 100 mg PO BID 10/09/20 Amiodarone [Cordarone] 100 mg PO DAILY 01/17/22 Cholecalciferol [Vitamin D3 (25 Mcg = 1000 Iu)] 50 mcg PO DAILY 01/17/22 Cyanocobalamin [Vitamin B-12] 500 mcg PO DAILY 01/17/22 Vitamin A Acetate [Vitamin A] 10,000 unit SL DAILY 01/17/22 Budesonide-Formot 160-4.5 Mcg [Symbicort 160-4.5 Mcg Inhaler] 2 puff INHALATION RT-BID #1 each 01/31/22 Metoprolol Tartrate [Lopressor] 25 mg PO DAILY tab 02/01/22 Apixaban [Eliquis] 2.5 mg PO BID 04/29/22 Folic Acid 0.4 mg PO DAILY 04/29/22 calcitrioL [Calcitriol] 0.25 mcg PO TH 04/29/22 Gabapentin [Neurontin] 400 mg PO TID 05/18/22 Furosemide [Lasix] 20 mg PO Q2D 07/09/22 Furosemide [Lasix] 40 mg PO DAILY 07/09/22 traZODone HCL 200 mg PO HS 07/09/22 Ascorbic Acid [Vitamin C] 1,600 mg PO DAILY 07/28/22 Controlled Substance Measures - Controlled Substance Measures Is patient prescribed a controlled substance at discharge?: No
== END ==
LOC: PNWHC3 12:49
PROVIDERS: ATTEND Specialist
DX: M51.37 Other intervertebral disc degeneration, lumbosacral region (principal); M47.817 Spondylosis without myelopathy or radiculopathy, lumbosacral region; G89.29 Other chronic pain; Z88.1 Allergy status to other antibiotic agents; Z88.2 Allergy status to sulfonamides; Z87.891 Personal history of nicotine dependence
CPT/HCPCS: 99211

== ENCOUNTER 2022-09-10 09:50 | Day surgery (SDC) | payer MEDICARE, OTHER ==
[~2022-09-10 09:50] MED LIST changes: +LIDOCAINE 1% (10MG/ML) FOR IV START INTRADERMA PRN
[2022-09-10] MEDS ORDERED: LACTATED RINGERS 1,000 ML IV SCH (10:15)
[2022-09-10] MEDS ORDERED: LACTATED RINGERS 1,000 ML IV ONE (10:15)
[2022-09-10 10:28] VITALS: TEMP 98
[2022-09-10 10:28] LABS: Glucose,Whole Blood 92 mg/dL (70-110)
[2022-09-10] MEDS ORDERED: fentaNYL (PF) 50 MCG/ML 2 ML AMP ONE (10:30)
[2022-09-10] MEDS ORDERED: ROPIVACAINE 5 MG/ML 20 ML AMPULE ONE (10:30)
[2022-09-10] MEDS ORDERED: TRIAMCINOLONE ACETONIDE 40 MG/ML 1 ML VIAL ONE (10:30)
[2022-09-10] MEDS ORDERED: MIDAZOLAM 2 MG/2 ML VIAL ONE (10:30)
--- NOTE | 2022-09-10 10:57 | P.PCN ---
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 Procedure: Bilateral L4-5 radiofrequency thermocoagulation of medial branch under fluoroscopic guidance Bilateral L5-S1 dorsal ramus radiofrequency thermocoagulation under fluoroscopic guidance Surgeon: Noreen Ortega Anesthesia: Local: 1% Lidocaine, IV sedation : Midazolam 1 mg, and fentanyl 25+25 micrograms Sedation supervision timings: 1030- 1055. Complications: None Estimated blood loss: None. Specimen removed: None Fluoroscopic image: Saved to patient electronic medical records. Indications for Procedure: The patient is well known to pain clinic for his chronic low back pain management. The lumbar facet loading test was positive with a clinical diagnosis of lumbar facet arthropathy. Patient had marked decrease in pain after the diagnostic medial branch procedure. Came here for radiofrequency ablation for longer pain relief. PROCEDURE DESCRIPTION: The patient was seen and identified in the preoperative area. Risks, benefits, complications, and alternatives were discussed with the patient. The patient agreed to proceed with the procedure and signed the consent. IV was started. Vital signs were stable. Patient was taken to the procedure room and timeout was completed. The patient was placed in the prone position on procedure table and a pillow was placed under the abdomen to reduce lumbar lordosis. The lumbosacral area was prepped and draped in the usual sterile fashion. Critical pause was taken. Vital signs were closely monitored during the procedure. The fluoroscopic camera was placed in the anteroposterior position to identify the junction of superior articular process and its corresponding injection with its transverse process of Right side L4, L5, S1, which were anesthetized with 1% lidocaine. We used 18-gauge 100-mm curved, sharp radiofrequency cannula with 10-mm active tip for the procedure. The first cannula was guided by fluoroscopy to the S1 superior articular process and its corresponding junction with its ala. The second cannula was guided by fluoroscopy into the L5 superior articular process and its corresponding junction with its transverse process and pedicle. The third cannula was guided by fluoroscopy into the L4 SAP and its corresponding junction with its transverse process and its pedicle. After confirmation of needle tip position on oblique view, and lateral view each site underwent motor testing at 2 Hz and 0 to 2.5 volts, and there was good motor stimulation in the back and no radicular symptoms or paresthesias. After con firmation of motor testing, 0.5 mL of block solution injected at each site . Block solution contained 4 mL of 0.5% ropivacaine preservative free mixed with 40 MG of Kenalog. At this time, each site was ablated using continuous radiofrequency mode at 80 degrees Celsius for 90 seconds at each level. At the end of the procedure, each needle was retracted approximately 1 cm and the skin was infiltrated with 0.5% ropivacaine preservative free 1 ml at each site. Skin was cleansed and bandages were applied. Entire procedure repeated on the left side. Skin was cleansed and bandages were applied. Disposition : The patient tolerated the procedure very well. The patient was transferred to the recovery room and remained stable until discharged home. The patient was given detailed discharge instructions for infection, bleeding, and increased pain at the injection site, and was advised to seek immediate medical attention should significant side effects develop. The patient will be schedu led with Pain Clinic within 4 weeks.
[2022-09-10] MEDS ORDERED: IV FLUID CONTINUATION 1,000 ML IV ONE (11:00)
[2022-09-10 11:23] VITALS: BP 108/65; PULSE 72; RESP 14
--- NOTE | 2022-09-10 17:30 | FL ---
EXAMINATION TYPE: FL guided pain mgmt statistic DATE OF EXAM: 09/10/2022 FLUOROSCOPY Fluoroscopy time of 14 seconds was used during bilateral lumbar facet radiofrequency ablation. 8 hesham ge/s document/s the procedure. DOSE AREA PRODUCT (DAP) UGY*M,MGY*CM: 0.064
== END 2022-09-10 11:41 | disposition home or self-care (01) ==
LOC: ORPAIN 09:50
DX: M47.816 Spondylosis without myelopathy or radiculopathy, lumbar region (principal); G89.29 Other chronic pain; I10 Essential (primary) hypertension; E78.00 Pure hypercholesterolemia, unspecified; E03.9 Hypothyroidism, unspecified; J44.9 Chronic obstructive pulmonary disease, unspecified; Z99.81 Dependence on supplemental oxygen; Z87.820 Personal history of traumatic brain injury; Z79.1 Long term (current) use of non-steroidal anti-inflammatories (NSAID); Z79.01 Long term (current) use of anticoagulants; Z79.890 Hormone replacement therapy; Z79.899 Other long term (current) drug therapy; Z88.1 Allergy status to other antibiotic agents; Z88.2 Allergy status to sulfonamides
CPT/HCPCS: 64636 ×2; 64635; J2250; J3301; J3010; J2795; 99152; 99153

== ENCOUNTER → 2022-10-02 | Outpatient (CLI) | payer MEDICARE, OTHER ==
--- NOTE | 2022-10-05 12:23 | MM ---
Reason for Exam: Screening (asymptomatic). Last mammogram was performed 9 year(s) and 3 month(s) ago. Patient History: Menarche at age 12. First Full-Term at age 17. Left ovary removed at age 32. Right ovary removed at age 32. Hysterectomy at age 32. Postmenopausal. Estrogen, starting at age 32 for 23 years. Mother had breast cancer, age 55. Risk Values: Latoya 5 year model risk: 3.2%. NCI Lifetime model risk: 10.1%. Prior Study Comparison: 04/14/2010 Bilateral Diagnostic Mammogram, [facility]. 05/19/2012 Bilateral Screening Mammogram, [facility]. 06/22/2013 Bilateral Diagnostic Mammogram, [facility]. Tissue Density: There are scattered fibroglandular densities. Findings: Analyzed By CAD. Pattern appears symmetrical. Benign vascular calcifications present bilaterally. No suspicious groups of microcalcifications, spiculated or lobular masses, architectural distortion or other secondary signs of malignancy are mammographically apparent. Overall Assessment: Benign, BI-RAD 2 Management: Screening Mammogram of both breasts in 1 year. A negative mammogram report should not preclude additional follow up of suspicious palpable abnormalities. Patient should continue monthly self breast exam. A clinical breast exam by your physician is recommended on an annual basis and results should be correlated with mammographic findings. Electronically signed and approved by: Danish Simmons D.O. Radiologis
--- NOTE | 2022-10-08 16:32 | BD ---
EXAMINATION TYPE: Axial Bone Density DATE OF EXAM: 10/02/2022 CLINICAL HISTORY: 67 years old Female. ICD-10 CODE: , Z78.1 Height: 62 Weight: 173 FRAX RISK QUESTIONS: Alcohol (3 or more units per day): no Family History (Parent hip fracture): no Glucocorticoids (More than 3mos): no (Ex: prednisone, prednisolone, methylprednisolone, dexamethasone, and hydrocortisone). History of Fracture in Adulthood: no Secondary Osteoporosis: 1. Type 1 Diabetes: no 2. Hyperthyroidism: no 3. Menopause before 45: no 4. Malnutrition: no 5. Chronic liver disease: no Rheumatoid Arthritis: no Current Tobacco Use: no RISK FACTORS HISTORY OF: Surgery to Spine/Hip(right/left)/Wrist (right/left): no Family History of Osteoporosis: no Active: yes Diet low in dairy products/other sources of calcium: no Postmenopausal woman: yes Lost more than 2 inches in height since high school: no MEDICATIONS: Additional History: EXAM MEASUREMENTS: Bone mineral densitometry was performed using the Te[employer] System. Bone mineral density as measured about the Lumbar spine is: ----- L1-L4(G/cm2): 0.809 T Score Values are as follows: ----- L1: -3.5 ----- L2: -3.5 ----- L3: -2.7 ----- L4: -3.0 ----- L1-L4: -3.1 Z Score Values are as follows: ----- L1: -2.3 ----- L2: -2.3 ----- L3: -1.5 ----- L4: -1.8 ----- L1-L4: -1.9 Bone mineral density : baseline Bone mineral density about the R hip (g/cm2): 0.603 Bone mineral density about the L hip (g/cm2): 0.605 T Score values are as follows: -----R Neck: -3.1 -----L Neck: -2.7 -----R Total: -3.2 -----L Total: -3.2 Z Score values are as follows: -----R Neck: -1.8 -----L Neck: -1.4 -----R Total: -2.2 -----L Total: -2.2 Bone mineral density : baseline FRAX%s: The graph provided illustrates a 18.5% chance for a major osteoporotic fx and a 6.1 % chance for the hips probability for fx in 10 years time. IMPRESSION: Osteoporosis (T Score less than -2.5). There is increased fracture risk and therapy is usually indicated based on age. Re-Screen 1-2 years. NOTE: T-SCORE=SD OF THE YOUNG ADULT MEAN.
== END | disposition home or self-care (01) ==
LOC: RADMAMWWP 07:13
PROVIDERS: ATTEND Family Medicine
DX: Z12.31 Encounter for screening mammogram for malignant neoplasm of breast (principal); Z78.0 Asymptomatic menopausal state; Z80.3 Family history of malignant neoplasm of breast
CPT/HCPCS: 77063; 77067; 77080

== ENCOUNTER 2022-10-28 15:27 | Emergency (ER) | payer MEDICARE, OTHER ==
[2022-10-28 15:36] VITALS: TEMP 98.5
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
--- NOTE | 2022-10-28 17:07 | XR ---
EXAMINATION TYPE: XR chest 2V DATE OF EXAM: 10/28/2022 COMPARISON: 05/18/2022 INDICATION: Rule out effusion TECHNIQUE: Frontal and lateral views of the chest are obtained. FINDINGS: The heart size is normal. The pulmonary vasculature is normal. The lungs are clear. Costophrenic angles and posterior costophrenic angles appear clear. No suspicio us changes to suggest effusion IMPRESSION: 1. No acute pulmonary process.
[2022-10-28 18:35] LABS: Basophils % (A) 0 %; Eosinophils % (A) 0 %; HCT 36.4 % (34.0-46.0); HGB 11.6 gm/dL (11.4-16.0); Lymphocytes # (A) 0.8 k/uL (1.0-4.8); Lymphocytes % (A) 9 %; MCH 31.5 pg (25.0-35.0); MCV 98.4 fL (80.0-100.0); Macrocytosis Slight; Mean Platelet Volume 7.9; Monocytes # (A) 0.2 k/uL (0-1.0); Monocytes % (A) 2 %; Neutrophils # (A) 7.7 k/uL (1.3-7.7); Neutrophils % (A) 88 %; Platelet Count 205 k/uL (150-450); RDW 15.2 % (11.5-15.5); WBC 8.8 k/uL (3.8-10.6)
[2022-10-28 18:43] LABS: ALT 19 U/L (4-34); AST 25 U/L (14-36); African American GFR (CKD) 31 (>60 ml/min/1.73 sqM); Albumin 3.7 g/dL (3.5-5.0); Alkaline Phosphatase 133 U/L (38-126); Anion Gap 8 mmol/L; Blood Urea Nitrogen 33 mg/dL (7-17); Calcium 8.4 mg/dL (8.4-10.2); Carbon Dioxide 28 mmol/L (22-30); Chloride 102 mmol/L (98-107); Glucose 111 mg/dL (74-99); Magnesium 2.1 mg/dL (1.6-2.3); Non-African American GFR(CKD) 27 (>60 ml/min/1.73 sqM); Potassium 4.5 mmol/L (3.5-5.1); Sodium 138 mmol/L (137-145); Total Bilirubin 0.4 mg/dL (0.2-1.3); Total Protein 7.2 g/dL (6.3-8.2)
[2022-10-28 18:49] LABS: INR 0.9 (<1.2); Partial Thromboplastin Time 25.2 sec (22.0-30.0); Prothrombin Time 10.1 sec (9.0-12.0)
[2022-10-28 18:52] LABS: NT-Pro-B-Type Natriuretic Pept 1710 pg/mL
--- NOTE | 2022-10-28 19:14 | US ---
EXAMINATION TYPE: US venous doppler duplex LE RT DATE OF EXAM: 10/28/2022 6:01 PM COMPARISON: NONE CLINICAL INDICATION: Female, 67 years old with history of r/o dvt; Swelling of rt calf SIDE PERFORMED: Right TECHNIQUE: The lower extremity deep venous system is examined utilizing real time linear array sonog chelsy with graded compression, doppler sonography and color-flow sonography. VESSELS IMAGED: Common Femoral Vein Deep Femoral Vein Greater Saphenous Vein * Femoral Vein Popliteal Vein Small Saphenous Vein * Proximal Calf Veins (* superficial vessels) Right Leg: No evidence for DVT. Edema noted in calf IMPRESSION: 1. Right lower extremity ultrasound negative for deep venous thrombosis. 2. There is some diffuse edema within the subcutaneous tissues of the calf.
[2022-10-28 19:29] VITALS: BP 107/60; PULSE 67; RESP 20
== END 2022-10-28 20:08 | disposition home or self-care (01) ==
LOC: EC 15:27
DX: I50.9 Heart failure, unspecified (principal); M79.89 Other specified soft tissue disorders; I48.91 Unspecified atrial fibrillation; I25.10 Atherosclerotic heart disease of native coronary artery without angina pectoris; J44.9 Chronic obstructive pulmonary disease, unspecified; I11.0 Hypertensive heart disease with heart failure; I13.0 Hypertensive heart and chronic kidney disease with heart failure and stage 1 through stage 4 chronic kidney disease, or unspecified chronic kidney disease; N18.32 Chronic kidney disease, stage 3b; E03.9 Hypothyroidism, unspecified; E78.5 Hyperlipidemia, unspecified; K21.9 Gastro-esophageal reflux disease without esophagitis; Z88.2 Allergy status to sulfonamides; Z88.8 Allergy status to other drugs, medicaments and biological substances; Z79.01 Long term (current) use of anticoagulants; Z79.890 Hormone replacement therapy; Z79.899 Other long term (current) drug therapy; Z86.73 Personal history of transient ischemic attack (TIA), and cerebral infarction without residual deficits; Z99.2 Dependence on renal dialysis; Z87.891 Personal history of nicotine dependence
CPT/HCPCS: 36415; 71046; 80053; 83735; 83880; 84484; 85025; 85610; 85730; 93005; 99284

== ENCOUNTER 2022-11-13 15:47 | Observation (INO) | payer MEDICARE, OTHER ==
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
[2022-11-13 17:17] LABS: Basophils % (A) 1 %; Eosinophils # (A) 0.4 k/uL (0-0.7); Eosinophils % (A) 5 %; HCT 35.2 % (34.0-46.0); HGB 11.4 gm/dL (11.4-16.0); Lymphocytes # (A) 1.6 k/uL (1.0-4.8); Lymphocytes % (A) 20 %; MCH 31.5 pg (25.0-35.0); MCHC 32.3 g/dL (31.0-37.0); MCV 97.5 fL (80.0-100.0); Mean Platelet Volume 7.7; Monocytes # (A) 0.4 k/uL (0-1.0); Monocytes % (A) 5 %; Neutrophils # (A) 5.6 k/uL (1.3-7.7); Neutrophils % (A) 69 %; Platelet Count 155 k/uL (150-450); RBC 3.61 m/uL (3.80-5.40); RDW 14.8 % (11.5-15.5); WBC 8.1 k/uL (3.8-10.6)
[2022-11-13 17:26] LABS: Partial Thromboplastin Time 26.2 sec (22.0-30.0); Prothrombin Time 10.5 sec (9.0-12.0)
[2022-11-13 17:27] LABS: ALT 13 U/L (4-34); AST 25 U/L (14-36); African American GFR (CKD) 39 (>60 ml/min/1.73 sqM); Albumin 3.8 g/dL (3.5-5.0); Alkaline Phosphatase 120 U/L (38-126); Anion Gap 8 mmol/L; Blood Urea Nitrogen 25 mg/dL (7-17); Calcium 8.6 mg/dL (8.4-10.2); Carbon Dioxide 33 mmol/L (22-30); Chloride 98 mmol/L (98-107); Glucose 95 mg/dL (74-99); Non-African American GFR(CKD) 34 (>60 ml/min/1.73 sqM); Potassium 3.6 mmol/L (3.5-5.1); Sodium 139 mmol/L (137-145); Total Bilirubin 0.4 mg/dL (0.2-1.3); Total Protein 7.5 g/dL (6.3-8.2)
[2022-11-13 17:36] LABS: NT-Pro-B-Type Natriuretic Pept 1450 pg/mL
[2022-11-13 17:51] LABS: Appearance,Urine Cloudy (Clear); Bacteria,Urine Moderate /hpf; Bilirubin,Urine Negative (Negative); Blood,Urine Small (Negative); Color,Urine Yellow; Glucose,Urine (UA) Negative (Negative); Hyaline Casts,Urine 1 /lpf (0-2); Ketones,Urine Negative (Negative); Leukocyte Esterase,Urine Large (Negative); Mucus,Urine Rare /hpf; Nitrite,Urine Positive (Negative); Protein,Urine Trace (Negative); RBC,Urine 13 /hpf (0-5); Specific Gravity,Urine 1.011 (1.001-1.035); Squamous Epithelial Cell,Urine 7 /hpf (0-4); Urobilinogen,Urine <2.0 mg/dL (<2.0); WBC,Urine 143 /hpf (0-5)
--- NOTE | 2022-11-13 18:31 | XR ---
EXAMINATION TYPE: XR chest 2V DATE OF EXAM: 11/13/2022 COMPARISON: 10/29/2019 HISTORY: 67-year-old female with weakness TECHNIQUE: PA and lateral views FINDINGS: Heart borderline enlarged. Hyperinflation. Mild interstitial prominence. Small inferior mid retrocard iac lucency. No consolidation or pleural effusion. IMPRESSION: Cardiomegaly and COPD. Suspect a small hiatal hernia. Otherwise, no definite acute process.
[2022-11-13] MEDS ORDERED: ACETAMINOPHEN TAB 325 MG TAB PO PRN (18:47)
[2022-11-13] MEDS ORDERED: NALOXONE 0.4 MG/ML 1 ML VIAL IV PRN (18:47)
[2022-11-13] MEDS ORDERED: BENZONATATE 100 MG CAP PO PRN (22:08)
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
[2022-11-14] MEDS: SYMBICORT 160-4.5 MCG INHALER INHALATION SCH ×3 (03:45→19:32)
[2022-11-14] MEDS: traZODone HCL 100 MG TAB PO SCH ×2 (04:16→20:52)
[2022-11-14] MEDS: APIXABAN 2.5 MG TABLET PO SCH ×3 (04:16→20:52)
[2022-11-14] MEDS: SERTRALINE 100 MG TAB PO SCH ×2 (04:16→20:52)
[2022-11-14] MEDS: PANTOPRAZOLE 40 MG TABLET PO SCH (06:21)
[2022-11-14] MEDS: LEVOTHYROXINE 75 MCG TAB PO SCH (06:21)
[2022-11-14] MEDS: ALBUTEROL NEBULIZED 2.5 MG/3 ML INHALATION PRN ×2 (07:30→15:19)
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
[2022-11-14] MEDS: MONTELUKAST 10 MG TAB PO SCH (09:27)
[2022-11-14] MEDS: METOPROLOL TARTRATE 25 MG TAB PO SCH (09:27)
[2022-11-14] MEDS: GABAPENTIN 400 MG CAP PO SCH ×3 (09:27→20:52)
[2022-11-14] MEDS: allopurinoL 100 MG TAB PO SCH ×2 (09:27→20:52)
[2022-11-14] MEDS: MORPHINE SULFATE 4 MG/ML SYRINGE IV PRN (09:28)
[2022-11-14] MEDS: AMIODARONE 100 MG TAB PO SCH (09:28)
--- NOTE | 2022-11-14 16:54 | P.PN ---
Subjective Progress Note Date: 11/14/22 Hospital course: Patient is a very pleasant 67-year-old female with a past medical history of advanced COPD with chronic hypoxic respiratory failure requiring home oxygen 2 L at all times, CAD with stenting, paroxysmal atrial fibrillation on anticoagulation with Eliquis, hypertension, hyperlipidemia, hypothyroidism, chronic kidney disease stage III, and memory impairment. She presented to the emergency department on 11/13/22 secondary to a chief complaint of weakness and confusion. Patient was brought in by her whom per documentation reported this is patient's typical activity when she gets a bad UTI. Patient underwent extensive evaluation in the emergency department. Vital signs upon arrival temp 98.8F, blood pressure 104/72, heart rate 69, respiratory rate 22, SpO2 of 97% on 2 L O2 via nasal cannula. EKG was completed showing normal sinus rhythm at 67 bpm with no noted T-wave or ST abnormalities upon personal review and interpretation. Chest x-ray completed in radiology report reviewed stating cardiomegaly and COPD with suspicions of small hiatal hernia, otherwise negative for acute process. Physical exam: Patient seen and fully evaluated at bedside this morning. Patient complaining of increasing cough and inability to bring up secretions. She hasn't baseline 2 L O2 via nasal cannula. Vital signs reviewed and stable. General: Nontoxic, no distress and appears stated age. Derm: Skin warm and dry, normal coloration for ethnicity. Head: Atraumatic, normocephalic and symmetric. Eyes: EOMs intact, no lid lag, and anicteric sclera Mouth: no lip lesions, mucus membranes moist Cardiovascular: regular rate and rhythm with normal S1S2, no murmur, positive posterior tibial pulses bilaterally, and cap refill < 2 seconds. Lungs: Respirations even, regular, and unlabored on 2 L O2 via nasal cannula. Lungs slightly diminished with fine expiratory wheezes, no crackles, no rales and no rhonchi noted. No accessory muscle usage. Patient did have coarse nonproductive cough throughout assessment. Abdominal: soft, nontender to palpation, no guarding, no appreciable organomegaly Ext: ROM intact. No gross muscle atrophy, no edema, no contractures Neuro: Speech clear, face symmetrical and CN II-XII grossly intact with no noted focal neuro deficits Psych: Alert and oriented to person, place, time, and situation. Appropriate and pleasant affect. Assessment and Plan of Care: Acute metabolic encephalopathy, secondary to UTI -Urinalysis reviewed positive for protein, blood, nitrites, and infection with leukocytes and 143 WBCs. -Bladder management to continue to monitor for post void residual -Continue IV antibiotic Rocephin 1 g every 24 hours pending urine culture results. Advanced COPD with chronic hypoxic respiratory failure -Continue with chronic oxygen supplementation and oxygen may be titrated as needed to maintain SpO2 greater than 90%. -Pulmonary following, reviewed documentation in chart. -Influenza A, influenza B, RSV, and Covid PCR negative. -Patient placed on DuoNeb's 4 times daily and started on Mucinex 1200 mg twice daily. -Patient to continue with Singulair 10 mg daily, and Symbicort 2 puffs twice daily. History of CAD status post stenting Paroxysmal atrial fibrillation Hypertension Hyperlipidemia -Continue home cardiac medication regimen consisting of Eliquis 2.5 mg twice daily, amiodarone 100 mg daily, atorvastatin 20 mg nightly, metoprolol 25 mg daily. Chronic kidney disease stage IIIB -Renal function stable and appears to be better than baseline levels with BUN 25, creatinine 1.55, and GFR 34 with baseline creatinine appearing to be around 1.9. Hypothyroidism -Continue daily medication regimen with levothyroxine 75 g daily. Small hiatal hernia -Recommending outpatient follow-up and management on an as-needed basis. Patient asymptomatic for complaints at this time. CODE STATUS: Full code DVT prophylaxis: Eliquis Discussed with: Pt and RN Anticipated discharge date: Clinical course to determine likely a 24-[address]: Home Patient was seen independently by Nurse Pracitioner. This document was prepared using [employer] dictation software. Please allow for errors in vending machine technician, while rare they do occur. Calixto Diaz NP rendered care for this patient independently, reviewed the findings and plan as documented in the note above. I did not physically speak with or examine the patient on this date. Objective - Vital Signs Vital signs: Vital Signs Temp 98.1 F 11/14/22 07:00 Pulse 72 11/14/22 07:40 Resp 16 11/14/22 07:00 BP 104/72 11/14/22 07:00 Pulse Ox 98 11/14/22 07:32 FiO2 Intake & Output 11/13/22 11/14/22 11/14/22 18:59 06:59 18:59 Intake Total 118 Balance 118 Weight 82.554 kg 82.554 kg Intake: Oral 118 Other: Voiding Method Toilet # Voids 2 - Labs CBC & Chem 7: 11/15/22 07:27 11/16/22 10:30 Labs: Abnormal Lab Results - Last 24 Hours (Table) 11/13/22 11/13/22 11/13/22 Range/Units 16:28 16:28 16:28 RBC 3.61 L (3.80-5.40) m/uL Carbon Dioxide 33 H (22-30) mmol/L BUN 25 H (7-17) mg/dL Creatinine 1.55 H (0.52-1.04) mg/dL Plasma Lactic Acid Jose (0.7-2.0) mmol/L Urine Appearance Cloudy H (Clear) Urine Protein Trace H (Negative) Urine Blood Small H (Negative) Urine Nitrite Positive H (Negative) Ur Leukocyte Esterase Large H (Negative) Urine RBC 13 H (0-5) /hpf Urine WBC 143 H (0-5) /hpf Urine WBC Clumps Few H (None) /hpf Ur Squamous Epith Cells 7 H (0-4) /hpf Urine Bacteria Moderate H (None) /hpf Urine Mucus Rare H (None) /hpf 11/13/22 Range/Units 16:28 RBC (3.80-5.40) m/uL Carbon Dioxide (22-30) mmol/L BUN (7-17) mg/dL Creatinine (0.52-1.04) mg/dL Plasma Lactic Acid Jose 0.5 L (0.7-2.0) mmol/L Urine Appearance (Clear) Urine Protein (Negative) Urine Blood (Negative) Urine Nitrite (Negative) Ur Leukocyte Esterase (Negative) Urine RBC (0-5) /hpf Urine WBC (0-5) /hpf Urine WBC Clumps (None) /hpf Ur Squamous Epith Cells (0-4) /hpf Urine Bacteria (None) /hpf Urine Mucus (None) /hpf
[2022-11-14] MEDS: IPRATROPIUM-ALBUTEROL 3 ML NEB INHALATION SCH (19:32)
[2022-11-14] MEDS: ATORVASTATIN 20 MG TAB PO SCH (20:52)
[2022-11-14] MEDS: guaiFENesin 600 MG TABLET.ER PO SCH (20:52)
[2022-11-15] MEDS: PANTOPRAZOLE 40 MG TABLET PO SCH (06:29)
[2022-11-15] MEDS: LEVOTHYROXINE 75 MCG TAB PO SCH (06:29)
[2022-11-15] MEDS: SYMBICORT 160-4.5 MCG INHALER INHALATION SCH ×2 (08:19→19:13)
[2022-11-15] MEDS: IPRATROPIUM-ALBUTEROL 3 ML NEB INHALATION SCH ×4 (08:21→19:14)
[2022-11-15] MEDS: GABAPENTIN 400 MG CAP PO SCH ×3 (08:45→20:16)
[2022-11-15] MEDS: guaiFENesin 600 MG TABLET.ER PO SCH ×2 (08:45→20:16)
[2022-11-15] MEDS: allopurinoL 100 MG TAB PO SCH ×2 (08:45→20:16)
[2022-11-15] MEDS: METOPROLOL TARTRATE 25 MG TAB PO SCH (08:46)
[2022-11-15] MEDS: AMIODARONE 100 MG TAB PO SCH (08:46)
[2022-11-15] MEDS: MONTELUKAST 10 MG TAB PO SCH (08:46)
[2022-11-15] MEDS: APIXABAN 2.5 MG TABLET PO SCH ×2 (08:46→20:17)
[2022-11-15 10:50] LABS: HCT 34.7 % (37.2-46.3); HGB 10.6 d/dL (12.0-15.0); MCH 30.6 pg (27.0-32.0); MCHC 30.5 d/dL (32.0-37.0); MCV 100.3 FL (80.0-97.0); Mean Platelet Volume 10.8 FL (9.5-12.2); NRBC Per 100 WBC 0 X 10*3/uL (0.00-0.01); Platelet Count 166 X 10*3/uL (140-440); RBC 3.46 X 10*6/uL (4.10-5.20); RDW 14.8 % (11.5-14.5)
--- NOTE | 2022-11-15 11:12 | P.PN ---
Subjective Progress Note Date: 11/15/22 This is a very pleasant 67-year-old female patient who follows with Dr. Briseno in our office for moderate to severe chronic obstructive pulmonary disease, previous history of respiratory failure requiring intubation mechanical ventilation and tracheostomy, chronic diastolic congestive heart failure, cor pulmonale, chronic kidney disease stage IV, paroxysmal atrial fibrillation, PE/DVT, gastroesophageal reflux disease, CVA. She was brought into the emergency room yesterday after having a 3 day history of confusion and altered mental status. He was found to have a urinary tract infection. Influenza screen negative. RSV screen negative. COVID-19 screen negative. White count 8.1. Hemoglobin 11.4. Platelets were 55. Sodium 139. Potassium 3.6. Bicarb 33. BUN 25. Creatinine 1.55. Chest x-ray reveals evidence of cardiomegaly and COPD and a small hiatal hernia. No acute cardiopulmonary process. EKG reveals sinus rhythm with no significant ST or T wave abnormalities. She is seen today in consultation on the regular medical floor. She is sitting up in bed. Awake and alert in no acute distress. Maintaining O2 saturations in the 90s on room air. She's been afebrile. Hemodynamically stable. She's been initiated on ceftriaxone. Continue on Symbicort and Singulair and albuterol. Eliquis for anticoagulation. The patient is seen today 11/15/2022 in follow-up on the regular medical floor. She is currently awake and alert in no acute distress. No worsening shortness of breath, cough or congestion. Maintaining O2 saturations in the high 90s on 3 L/m per nasal cannula. Afebrile. Hemodynamically stable. White count 7.6. Hemoglobin 10.6. Platelets 166. Urine culture still pending. He remains on ceftriaxone. Continue on Symbicort, DuoNeb inhalations. Anticoagulated with Eliquis. Objective - Vital Signs Vital signs: Vital Signs Temp 97.8 F 11/15/22 07:00 Pulse 74 11/15/22 07:00 Resp 18 11/15/22 07:00 BP 107/73 11/15/22 08:49 Pulse Ox 96 11/15/22 08:19 FiO2 Intake & Output 11/14/22 11/15/22 11/15/22 18:59 06:59 18:59 Intake Total 354 0 Balance 354 0 Intake: Oral 354 0 Other: Voiding Method Toilet # Voids 2 2 # Bowel Movements 0 0 - Exam GENERAL EXAM: Alert, 67-year-old female, on 3 L nasal cannula, comfortable in no apparent distress. HEAD: Normocephalic. EYES: Normal reaction of pupils, equal size. NOSE: Clear with pink turbinates. THROAT: No erythema or exudates. NECK: No masses, no JVD. CHEST: No chest wall deformity. LUNGS: Equal air entry with no crackles, wheeze, rhonchi or dullness. CVS: S1 and S2 normal with no audible murmur, regular rhythm. ABDOMEN: No hepatosplenomegaly, normal bowel sounds, no guarding or rigidity. SPINE: No scoliosis or deformity SKIN: No rashes CENTRAL NERVOUS SYSTEM: No focal deficits, tone is normal in all 4 extremities. EXTREMITIES: There is no peripheral edema. No clubbing, no cyanosis. Peripheral pulses are intact. - Labs CBC & Chem 7: 11/15/22 07:27 11/13/22 16:28 Labs: Abnormal Lab Results - Last 24 Hours (Table) 11/15/22 Range/Units 07:27 RBC 3.46 L (4.10-5.20) X 10*6/uL Hgb 10.6 L (12.0-15.0) d/dL Hct 34.7 L (37.2-46.3) % MCV 100.3 H (80.0-97.0) FL MCHC 30.5 L (32.0-37.0) d/dL RDW 14.8 H (11.5-14.5) % Assessment and Plan Assessment: Altered mental status secondary to urinary tract infection, culture pending Moderate to severe chronic obstructive pulmonary disease, currently inactive in stable Paroxysmal atrial fibrillation, anticoagulated with Eliquis, currently in sinus rhythm History of diastolic congestive heart failure Chronic cor pulmonale History of PE/DVT History of respiratory failure requiring mechanical ventilation and subsequent tracheostomy Chronic kidney disease, stage IV Gastroesophageal reflux disease without esophagitis Plan: The patient was seen and evaluated Labs and medications reviewed Urine culture pending Continue ceftriaxone Continue bronchodilators We will continue to follow I have personally seen and examined the patient, performed the documentation and the assessment and plan as written. Number of minutes spent on the visit: 10.
[2022-11-15 11:55] LABS: ALT 23 U/L (8-44); AST 33 U/L (13-35); Albumin 3.7 d/dL (3.8-4.9); Albumin/Globulin Ratio 1.37 Ratio (1.60-3.17); Alkaline Phosphatase 119 U/L (41-126); BUN/Creat Ratio 13.74 Ratio (12.00-20.00); Blood Urea Nitrogen 26.1 mg/dL (9.0-27.0); Calcium 8.7 mg/dL (8.7-10.3); Carbon Dioxide 27.9 mmol/L (21.6-31.8); Chloride 101 mmol/L (96-109); Globulin 2.7 d/dL (1.6-3.3); Glucose 94 mg/dL (70-110); Sodium 140 mmol/L (135-145); Total Bilirubin <0.2 mg/dL (0.3-1.2); Total Protein 6.4 d/dL (6.2-8.2)
--- NOTE | 2022-11-15 18:50 | P.PN ---
Subjective Progress Note Date: 11/15/22 Hospital course: Patient is a very pleasant 67-year-old female with a past medical history of advanced COPD with chronic hypoxic respiratory failure requiring home oxygen 3 L at all times, CAD with stenting, paroxysmal atrial fibrillation on anticoagulation with Eliquis, hypertension, hyperlipidemia, hypothyroidism, chronic kidney disease stage III, and memory impairment. She presented to the emergency department on 11/13/22 secondary to a chief complaint of weakness and confusion. Patient was brought in by her whom per documentation reported this is patient's typical activity when she gets a bad UTI. Patient underwent extensive evaluation in the emergency department. Vital signs upon arrival temp 98.8F, blood pressure 104/72, heart rate 69, respiratory rate 22, SpO2 of 97% on 2 L O2 via nasal cannula. EKG was completed showing normal sinus rhythm at 67 bpm with no noted T-wave or ST abnormalities upon personal review and interpretation. Chest x-ray completed in radiology report reviewed stating cardiomegaly and COPD with suspicions of small hiatal hernia, otherwise negative for acute process. Physical exam: Patient seen and fully evaluated at bedside this morning. Patient complaining of continued cough and inability to bring up any secretions. She denies having shortness of breath at this time. She she remains on baseline 3 L O2 via nasal cannula. Vital signs reviewed and stable. General: Nontoxic, no distress and appears stated age. Derm: Skin warm and dry, normal coloration for ethnicity. Head: Atraumatic, normocephalic and symmetric. Eyes: EOMs intact, no lid lag, and anicteric sclera Mouth: no lip lesions, mucus membranes moist Cardiovascular: regular rate and rhythm with normal S1S2, no murmur, positive posterior tibial pulses bilaterally, and cap refill < 2 seconds. Lungs: Respirations even, regular, and unlabored on 3 L O2 via nasal cannula. Lungs slightly diminished, no wheezes, no crackles, no rales and no rhonchi noted. No accessory muscle usage. Patient did have coarse nonproductive cough throughout assessment. Abdominal: soft, nontender to palpation, no guarding, no appreciable organomegaly Ext: ROM intact. No gross muscle atrophy, no edema, no contractures Neuro: Speech clear, face symmetrical and CN II-XII grossly intact with no noted focal neuro deficits Psych: Alert and oriented to person, place, time, and situation. Appropriate and pleasant affect. Assessment and Plan of Care: Acute metabolic encephalopathy, secondary to UTI -Urinalysis reviewed positive for protein, blood, nitrites, and infection with leukocytes and 143 WBCs. -Preliminary urine culture resulting positive for gram-negative bacilli -Bladder management to continue to monitor for post void residual -Continue IV antibiotic Rocephin 1 g every 24 hours pending final culture and sensitivity report Advanced COPD with chronic hypoxic respiratory failure -Continue with chronic oxygen supplementation and oxygen may be titrated as needed to maintain SpO2 greater than 90%. -Pulmonary following, reviewed documentation in chart. -Influenza A, influenza B, RSV, and Covid PCR negative. -Patient to continue scheduled DuoNeb's 4 times daily and Mucinex 1200 mg twice daily. -Patient to continue with Singulair 10 mg daily, and Symbicort 2 puffs twice daily. History of CAD status post stenting Paroxysmal atrial fibrillation Hypertension Hyperlipidemia -Continue home cardiac medication regimen consisting of Eliquis 2.5 mg twice daily, amiodarone 100 mg daily, atorvastatin 20 mg nightly, metoprolol 25 mg daily. Chronic kidney disease stage IIIB -Renal function stable and appears at baseline levels with BUN 26.1, creatinine 1.9, and GFR of 28 with baseline creatinine appearing to be around 1.9. Hypothyroidism -Continue daily medication regimen with levothyroxine 75 g daily. Small hiatal hernia -Recommending outpatient follow-up and management on an as-needed basis. Patient asymptomatic for complaints at this time. Data review: CBC showing mild macrocytic anemia with a hemoglobin of 10.6 and MCV of 100.3. BMP revealing Renal function stable and appears at baseline levels with BUN 26.1, creatinine 1.9, and GFR of 28 with baseline creatinine appearing to be around 1.9. Liver profile showing no significant abnormalities. -Preliminary urine culture resulting positive for gram-negative bacilli. -Vital signs reviewed and stable. Blood pressure 107/63, heart rate 72, respiratory rate 16, SpO2 96% on 3 L. CODE STATUS: Full code DVT prophylaxis: Yogesh Discussed with: Pt and RN Anticipated discharge date: Tomorrow morning Anticipated discharge place: Home Patient was seen independently by Nurse Pracitioner. This document was prepared using [employer] dictation software. Please allow for errors in design engineering specialist, while rare they do occur. I reviewed the documentation as provided by the JOSE ENRIQUE above, who is the original author of this note. I agree with the documented assessment and plan, with the following changes: none Objective - Vital Signs Vital signs: Vital Signs Temp 97.8 F 11/15/22 07:00 Pulse 74 11/15/22 07:00 Resp 18 11/15/22 07:00 BP 107/73 11/15/22 08:49 Pulse Ox 96 11/15/22 08:19 FiO2 Intake & Output 11/14/22 11/15/22 11/15/22 18:59 06:59 18:59 Intake Total 354 0 Balance 354 0 Intake: Oral 354 0 Other: Voiding Method Toilet # Voids 2 2 # Bowel Movements 0 0 - Labs CBC & Chem 7: 11/15/22 07:27 11/15/22 07:27
[2022-11-15] MEDS: traZODone HCL 100 MG TAB PO SCH (20:16)
[2022-11-15] MEDS: SERTRALINE 100 MG TAB PO SCH (20:16)
[2022-11-15] MEDS: ATORVASTATIN 20 MG TAB PO SCH (20:16)
[2022-11-15] MEDS: MORPHINE SULFATE 4 MG/ML SYRINGE IV PRN (21:42)
[2022-11-16] MEDS: PANTOPRAZOLE 40 MG TABLET PO SCH (06:12)
[2022-11-16] MEDS: LEVOTHYROXINE 75 MCG TAB PO SCH (06:12)
[2022-11-16] MEDS: IPRATROPIUM-ALBUTEROL 3 ML NEB INHALATION SCH ×4 (08:38→15:30)
[2022-11-16] MEDS: SYMBICORT 160-4.5 MCG INHALER INHALATION SCH (08:38)
[2022-11-16] MEDS: allopurinoL 100 MG TAB PO SCH (09:51)
[2022-11-16] MEDS: METOPROLOL TARTRATE 25 MG TAB PO SCH (09:51)
[2022-11-16] MEDS: guaiFENesin 600 MG TABLET.ER PO SCH (09:51)
[2022-11-16] MEDS: AMIODARONE 100 MG TAB PO SCH (09:51)
[2022-11-16] MEDS: GABAPENTIN 400 MG CAP PO SCH ×2 (09:51→16:16)
[2022-11-16] MEDS: MONTELUKAST 10 MG TAB PO SCH (09:51)
[2022-11-16] MEDS: APIXABAN 2.5 MG TABLET PO SCH (09:51)
[2022-11-16] MEDS ORDERED: DICYCLOMINE 10 MG CAP PO PRN (10:01)
--- NOTE | 2022-11-16 11:07 | P.PN ---
Subjective Progress Note Date: 11/16/22 This is a very pleasant 67-year-old female patient who follows with Dr. Briseno in our office for moderate to severe chronic obstructive pulmonary disease, previous history of respiratory failure requiring intubation mechanical ventilation and tracheostomy, chronic diastolic congestive heart failure, cor pulmonale, chronic kidney disease stage IV, paroxysmal atrial fibrillation, PE/DVT, gastroesophageal reflux disease, CVA. She was brought into the emergency room yesterday after having a 3 day history of confusion and altered mental status. He was found to have a urinary tract infection. Influenza screen negative. RSV screen negative. COVID-19 screen negative. White count 8.1. Hemoglobin 11.4. Platelets were 55. Sodium 139. Potassium 3.6. Bicarb 33. BUN 25. Creatinine 1.55. Chest x-ray reveals evidence of cardiomegaly and COPD and a small hiatal hernia. No acute cardiopulmonary process. EKG reveals sinus rhythm with no significant ST or T wave abnormalities. She is seen today in consultation on the regular medical floor. She is sitting up in bed. Awake and alert in no acute distress. Maintaining O2 saturations in the 90s on room air. She's been afebrile. Hemodynamically stable. She's been initiated on ceftriaxone. Continue on Symbicort and Singulair and albuterol. Eliquis for anticoagulation. The patient is seen today 11/15/2022 in follow-up on the regular medical floor. She is currently awake and alert in no acute distress. No worsening shortness of breath, cough or congestion. Maintaining O2 saturations in the high 90s on 3 L/m per nasal cannula. Afebrile. Hemodynamically stable. White count 7.6. Hemoglobin 10.6. Platelets 166. Urine culture still pending. He remains on ceftriaxone. Continue on Symbicort, DuoNeb inhalations. Anticoagulated with Eliquis. The patient is seen today 11/16/2022 in follow-up on the regular medical floor. She is resting comfortably in bed. Awake and alert in no acute distress. Maintaining good O2 saturations in the 90s on 3 L/m per nasal cannula. She's been afebrile. Hemodynamically stable. Urine culture is positive for gram- negative bacilli. She is continued on ceftriaxone. Objective - Vital Signs Vital signs: Vital Signs Temp 98.5 F 11/16/22 07:00 Pulse 84 11/16/22 07:00 Resp 18 11/16/22 07:00 BP 92/56 11/16/22 07:00 Pulse Ox 99 11/16/22 07:00 FiO2 Intake & Output 11/15/22 11/16/22 11/16/22 18:59 06:59 18:59 Intake Total 0 120 Balance 0 120 Intake: Oral 0 120 Other: Voiding Method Toilet # Voids 2 1 # Bowel Movements 0 - Exam GENERAL EXAM: Alert, pleasant 67-year-old female, resting in bed, on 3 L nasal c annula, comfortable in no apparent distress. HEAD: Normocephalic. EYES: Normal reaction of pupils, equal size. NOSE: Clear with pink turbinates. THROAT: No erythema or exudates. NECK: No masses, no JVD. CHEST: No chest wall deformity. LUNGS: Equal air entry with no crackles, wheeze, rhonchi or dullness. CVS: S1 and S2 normal with no audible murmur, regular rhythm. ABDOMEN: No hepatosplenomegaly, normal bowel sounds, no guarding or rigidity. SPINE: No scoliosis or deformity SKIN: No rashes CENTRAL NERVOUS SYSTEM: No focal deficits, tone is normal in all 4 extremities. EXTREMITIES: There is no peripheral edema. No clubbing, no cyanosis. Peripheral pulses are intact. - Labs CBC & Chem 7: 11/15/22 07:27 11/15/22 07:27 Labs: Abnormal Lab Results - Last 24 Hours (Table) 11/15/22 Range/Units 07:27 Creatinine 1.9 H (0.6-1.5) mg/dL Est GFR (CKD-EPI) 28 L (>=60) Total Bilirubin <0.2 L (0.3-1.2) mg/dL Albumin 3.7 L (3.8-4.9) d/dL Albumin/Globulin Ratio 1.37 L (1.60-3.17) Ratio Microbiology - Last 24 Hours (Table) 11/13/22 16:28 Urine Culture - Preliminary Urine,Voided Gram Neg Bacilli Assessment and Plan Assessment: Altered mental status secondary to urinary tract infection, culture with gram- negative bacilli Moderate to severe chronic obstructive pulmonary disease, currently inactive in stable Paroxysmal atrial fibrillation, anticoagulated with Eliquis, currently in sinus rhythm History of diastolic congestive heart failure Chronic cor pulmonale History of PE/DVT History of respiratory failure requiring mechanical ventilation and subsequent tracheostomy Chronic kidney disease, stage IV Gastroesophageal reflux disease without esophagitis Plan: The patient was seen and evaluated Medications reviewed Urine culture with gram-negative bacilli Continue ceftriaxone Continue bronchodilators We will continue to follow I have personally seen and examined the patient, performed the documentation and the assessment and plan as written. Number of minutes spent on the visit: 10.
[2022-11-16 11:41] LABS: African American GFR (CKD) 43 (>60 ml/min/1.73 sqM); Anion Gap 8 mmol/L; Blood Urea Nitrogen 26 mg/dL (7-17); Calcium 8.2 mg/dL (8.4-10.2); Carbon Dioxide 27 mmol/L (22-30); Chloride 102 mmol/L (98-107); Glucose 105 mg/dL (74-99); Non-African American GFR(CKD) 38 (>60 ml/min/1.73 sqM); Potassium 3.7 mmol/L (3.5-5.1); Sodium 137 mmol/L (137-145)
[2022-11-16] MEDS: MORPHINE SULFATE 4 MG/ML SYRINGE IV PRN (13:58)
[2022-11-16 14:00] VITALS: BP 116/74; TEMP 98.2
[2022-11-16 15:18] VITALS: RESP 16
--- NOTE | 2022-11-16 15:19 | P.DS ---
Providers Date of admission: 11/13/22 18:39 Expected date of discharge: 11/16/22 Attending physician: Berenice Hilario MD Consults: 11/14/22 00:31 Consult Physician Routine Consulting Provider: Dwayne Iniguez Reason/Comments: chronic cough Do you want consulting provider notified?: Yes, Notify in am Primary care physician: [facility] Course: Discharge Diagnosis: Klebsiella pneumoniae UTI, multidrug resistant. Patient received 2 day course of IV antibiotics Rocephin 1 g IVPB and based on culture and sensitivity report, she is being discharged home on Cefpodoxime 200 mg twice daily for an additional 5 days to complete a treatment course of 7 days of antibiotics for recurrent symptomatic UTIs. Acute kidney injury on stage IIIb chronic kidney disease. BEHZAD likely secondary to UTI and has resolved. Renal function on day of discharge with BUN 26, creatinine 1.43, and GFR of 38. Acute metabolic encephalopathy, secondary to UTI. Resolved. Advanced COPD with chronic hypoxic respiratory failure. Patient on home baseline oxygen needs. Patient discharged home with COPD Navigator Program and palliative care. History of CAD status post stenting. Continue home cardiac medication regimen consisting of Eliquis 2.5 mg twice daily, amiodarone 100 mg daily, atorvastatin 20 mg nightly, metoprolol 25 mg daily. Paroxysmal atrial fibrillation Hypertension Hyperlipidemia Hypothyroidism. Continue daily medication regimen with levothyroxine 75 g daily. Small hiatal hernia. Recommending outpatient follow-up and management on an as- needed basis. Patient asymptomatic for complaints at this time. Hospital course: Patient is a very pleasant 67-year-old female with a past medical history of advanced COPD with chronic hypoxic respiratory failure requiring home oxygen 3 L at all times, CAD with stenting, paroxysmal atrial fibrillation on anticoagulation with Eliquis, hypertension, hyperlipidemia, hypothyroidism, chronic kidney disease stage III, and memory impairment. She presented to the emergency department on 11/13/22 secondary to a chief complaint of weakness and confusion. Patient was brought in by her whom per documentation reported this is patient's typical activity when she gets a bad UTI. Patient underwent extensive evaluation in the emergency department. Vital signs upon arrival temp 98.8F, blood pressure 104/72, heart rate 69, respiratory rate 22, SpO2 of 97% on 2 L O2 via nasal cannula. EKG was completed showing normal sinus rhythm at 67 bpm with no noted T-wave or ST abnormalities upon personal review and interpretation. Chest x-ray completed in radiology report reviewed stating cardiomegaly and COPD with suspicions of small hiatal hernia, otherwise negative for acute process. Patient received IV antibiotics for treatment of UTI and was evaluated by pulmonology for chronic respiratory failure. Patient's mentation and fully back to baseline. Urine culture resulting positive for Klebsiella pneumoniae and was [id number]. Patient received 2 day course of IV antibiotics Rocephin 1 g IVPB and based on culture and sensitivity report, she is being discharged home on Cefpodoxime 200 mg twice daily for an additional 5 days to complete a treatment course of 7 days of antibiotics for recurrent symptomatic UTIs. Medically, patient is stable for discharge at this time. Patient discharged home with home/palliative care along with COPD Navigator program. Physical exam: Vital signs reviewed and stable. General: Nontoxic, no distress and appears stated age. Derm: Skin warm and dry, normal coloration for ethnicity. Head: Atraumatic, normocephalic and symmetric. Eyes: EOMs intact, no lid lag, and anicteric sclera Mouth: no lip lesions, mucus membranes moist Cardiovascular: regular rate and rhythm with normal S1S2, no murmur, positive posterior tibial pulses bilaterally, and cap refill < 2 seconds. Lungs: Respirations even, regular, and unlabored on 3 L O2 via nasal cannula. Lungs slightly diminished, no wheezes, no crackles, no rales and no rhonchi noted. No accessory muscle usage. Patient did have coarse nonproductive cough throughout assessment. Abdominal: soft, nontender to palpation, no guarding, no appreciable organomegaly Ext: ROM intact. No gross muscle atrophy, no edema, no contractures Neuro: Speech clear, face symmetrical and CN II-XII grossly intact with no noted focal neuro deficits Psych: Alert and oriented to person, place, time, and situation. Appropriate and pleasant affect. A total of 37 minutes of time were spent preparing this complex discharge summary. Pt was discharged on 11/16/22 at 4:39 PM. Patient was seen independently by Nurse Practitioner. This document was prepared using [employer] dictation software. Please allow for errors in automotive consultant while rare they do occur. I reviewed the documentation as provided by the JOSE ENRIQUE above, who is the original author of this note. I agree with the documented assessment and plan, with the following changes: none Patient Condition at Discharge: Stable Plan - Discharge Summary New Discharge Prescriptions: New Cefpodoxime Proxetil [Vantin] 200 mg PO Q12HR 5 Days #10 tab Continue Nitroglycerin Sl Tabs [Nitrostat] 0.4 mg SL Q5M PRN PRN Reason: Chest Pain Sertraline HCl [Zoloft] 100 mg PO HS Ipratropium-Albuterol Nebulize [Duoneb 0.5 mg-3 mg/3 ml Soln] 3 ml INHALATION RT-QID PRN PRN Reason: Shortness Of Breath Atorvastatin [Lipitor] 20 mg PO HS Levothyroxine Sodium [Synthroid] 75 mcg PO DAILY Albuterol Inhaler [Ventolin Hfa Inhaler] 2 puff INHALATION RT-QID PRN PRN Reason: Shortness Of Breath Cholecalciferol [Vitamin D3 (25 Mcg = 1000 Iu)] 50 mcg PO DAILY Budesonide-Formot 160-4.5 Mcg [Symbicort 160-4.5 Mcg Inhaler] 2 puff INHALATION RT-BID #1 each Gabapentin [Neurontin] 400 mg PO TID Furosemide [Lasix] 40 mg PO DAILY Ascorbic Acid [Vitamin C] 1,000 mg PO DAILY predniSONE 10 mg PO DAILY PRN PRN Reason: Shortness Of Breath allopurinoL [Zyloprim] 100 mg PO BID Cyclobenzaprine [Flexeril] 10 mg PO TID PRN PRN Reason: Muscle Pain Montelukast [Singulair] 10 mg PO DAILY Omeprazole 20 mg PO DAILY Amiodarone [Cordarone] 100 mg PO DAILY Cyanocobalamin [Vitamin B-12] 500 mcg PO DAILY Folic Acid 0.4 mg PO DAILY Apixaban [Eliquis] 2.5 mg PO BID calcitrioL [Calcitriol] 0.25 mcg PO TH Furosemide [Lasix] 20 mg PO DAILY Metoprolol Tartrate [Lopressor] 25 mg PO DAILY traZODone HCL 300 mg PO HS Discharge Medication List Nitroglycerin Sl Tabs [Nitrostat] 0.4 mg SL Q5M PRN 12/29/13 [History] Sertraline HCl [Zoloft] 100 mg PO HS 12/22/18 [History] Ipratropium-Albuterol Nebulize [Duoneb 0.5 mg-3 mg/3 ml Soln] 3 ml INHALATION RT-QID PRN 02/26/19 [History] Atorvastatin [Lipitor] 20 mg PO HS 03/09/19 [History] Levothyroxine Sodium [Synthroid] 75 mcg PO DAILY 06/17/19 [History] Albuterol Inhaler [Ventolin Hfa Inhaler] 2 puff INHALATION RT-QID PRN 10/09/20 [History] Montelukast [Singulair] 10 mg PO DAILY 10/09/20 [History] Omeprazole 20 mg PO DAILY 10/09/20 [History] Amiodarone [Cordarone] 100 mg PO DAILY 01/17/22 [History] Cholecalciferol [Vitamin D3 (25 Mcg = 1000 Iu)] 50 mcg PO DAILY 01/17/22 [History] Cyanocobalamin [Vitamin B-12] 500 mcg PO DAILY 01/17/22 [History] Budesonide-Formot 160-4.5 Mcg [Symbicort 160-4.5 Mcg Inhaler] 2 puff INHALATION RT-BID #1 each 01/31/22 [Rx] Apixaban [Eliquis] 2.5 mg PO BID 04/29/22 [History] Folic Acid 0.4 mg PO DAILY 04/29/22 [History] calcitrioL [Calcitriol] 0.25 mcg PO TH 04/29/22 [History] Gabapentin [Neurontin] 400 mg PO TID 05/18/22 [History] Furosemide [Lasix] 20 mg PO DAILY 07/09/22 [History] Furosemide [Lasix] 40 mg PO DAILY 07/09/22 [History] Ascorbic Acid [Vitamin C] 1,000 mg PO DAILY 07/28/22 [History] Metoprolol Tartrate [Lopressor] 25 mg PO DAILY 09/07/22 [History] Cyclobenzaprine [Flexeril] 10 mg PO TID PRN 10/28/22 [History] allopurinoL [Zyloprim] 100 mg PO BID 10/28/22 [History] predniSONE 10 mg PO DAILY PRN 10/28/22 [History] traZODone HCL 300 mg PO HS 10/28/22 [History] Cefpodoxime Proxetil [Vantin] 200 mg PO Q12HR 5 Days #10 tab 11/16/22 [Rx] Follow up Appointment(s)/Referral(s): Luis Stephens MD [Medical Doctor] - 4 Weeks (for evaluation of small hiatal hernia) Santiago Briseno MD [STAFF PHYSICIAN] - 1 Week Mai Doss MD [Primary Care Provider] - 1-2 Days Stanislav Sanchez DO [STAFF PHYSICIAN] - 2 Weeks (for [facility]ci monitoring of CKD) Patient Instructions/Handouts: Urinary Tract Infection in Women (DC) Discharge Disposition: HOME WITH HOME HEALTH SERVICES
[2022-11-16 15:30] VITALS: PULSE 68
== END 2022-11-16 17:38 | disposition home health service (06) ==
LOC: EC 15:47 → 6NMEDSUR 18:39
PROVIDERS: ADMIT Internal Medicine; ATTEND Internal Medicine
DX: N39.0 Urinary tract infection, site not specified (principal); B96.1 Klebsiella pneumoniae [K. pneumoniae] as the cause of diseases classified elsewhere; Z16.24 Resistance to multiple antibiotics; G93.41 Metabolic encephalopathy; I25.10 Atherosclerotic heart disease of native coronary artery without angina pectoris; J44.9 Chronic obstructive pulmonary disease, unspecified; K21.9 Gastro-esophageal reflux disease without esophagitis; E78.5 Hyperlipidemia, unspecified; I48.0 Paroxysmal atrial fibrillation; N17.9 Acute kidney failure, unspecified; I13.0 Hypertensive heart and chronic kidney disease with heart failure and stage 1 through stage 4 chronic kidney disease, or unspecified chronic kidney disease; I50.32 Chronic diastolic (congestive) heart failure; N18.4 Chronic kidney disease, stage 4 (severe); F31.9 Bipolar disorder, unspecified; F41.9 Anxiety disorder, unspecified; I27.81 Cor pulmonale (chronic); E03.9 Hypothyroidism, unspecified; G31.84 Mild cognitive impairment of uncertain or unknown etiology; J96.11 Chronic respiratory failure with hypoxia; K44.9 Diaphragmatic hernia without obstruction or gangrene; Z95.5 Presence of coronary angioplasty implant and graft; Z86.73 Personal history of transient ischemic attack (TIA), and cerebral infarction without residual deficits; Z86.718 Personal history of other venous thrombosis and embolism; Z99.81 Dependence on supplemental oxygen; Z79.899 Other long term (current) drug therapy; Z79.890 Hormone replacement therapy; Z79.01 Long term (current) use of anticoagulants; Z79.51 Long term (current) use of inhaled steroids; Z88.2 Allergy status to sulfonamides; Z88.1 Allergy status to other antibiotic agents; Z20.822 Contact with and (suspected) exposure to COVID-19
CPT/HCPCS: 96376 ×2; 96365; 96366 ×3; 96375; 99285; 36415; 94640 ×4; 94760 ×2; 93005; 83880; 80053 ×2; 80048; 83605; 83735; 84484; 85025; 85027; 85610; 85730; 81001; 87086; 87077; 87186; 87636; 71046; G0378 ×4; J2270 ×3; J0696 ×3

== ENCOUNTER → 2022-11-19 | Outpatient (CLI) | payer MEDICARE, OTHER ==
[2022-11-19 10:14] VITALS: BP 122/83; PULSE 68; RESP 15; TEMP 98.3
--- NOTE | 2022-11-19 12:25 | P.PAINPG ---
PQRS Measure Charge Sheet Comment: A 67 yr old female w at side with a history of severe and chronic LBP secondary to lumbar DDD and spondylosis with facet arthropathy without myelopathy presents today for evaluation s/p BL RFA L4-L5, L5-S1. Pt states she experienced 80 % pain relief s/p procedure. Pain level is provoked at 8/10 in intensity, constant, localized in the lumbar spine, sharp in character w/o shooting pain. Pain is provoked by standing/ walking for periods of 10 min or more. Pain is alleviated with injections, ice, heat, reclining, use of KT tape, repositioning and rest. Oswestry axial pain score of 36. Interventional pain procedures completed include BL RFA L3-L5 (Sep 25) Patient is currently on DENIES Patient denies any side effects of the medication(s), denies excessive drowsiness or sleepiness, denies suicidal ideation and reports that the current pain medication is helping to control the pain and improve activities of daily living. Patient denies any motor or sensory deficits. Patient denies any fever or night sweats, denies any change in the bowel movements or urination. Physical Examination: -Constitutional: Cooperative. Not in acute distress . - Neurologic: Cranial nerve II to XII intact. No focal neurological deficits. - Psychatric: Alert & oriented x 3. Matching mood & appropriate affect. Judgment and insight intact. - Musculoskeletal: Cervical spine: Muscle bulk/ tone/ strength in the bilateral upper extremities normal Vertebral body tenderness to palpation over Spurling test positive Distraction test positive Facet loading test positive TTP Thoracic spine Muscle bulk / tone/ strength in the bilateral paraspinal muscles normal Vertebral body tender to palpation over Facet loading test positive TTP Lumbar spine: Motor bulk/ tone/ strength lower extremities , thigh and legs : 5/5 Deep tendon reflexes : Normal Knee Jerk. Normal Ankle Jerk . Vertebral body tenderness to palpation over L5 Lumbar Facet Loading Test positive Straight Leg Raise: positive at 30 degrees right side/ left side Gaenslen's Test positive Sacral spine : Severe tenderness over the Sacroiliac joint: right side / left side Range of motion: Flexion of the lumbar spine <60 degrees Range of motion: Extension of the lumbar spine <20 degrees Gaenslen's Test positive right side / left side Sandoval test: positive right side / left side Thigh Thrust Test positive right side / left side Sacral Thrust Test positive right side / left side Assessment and plan: Chronic LBP secondary to lumbar DDD, spondylosis with facet arthropathy without myelopathy Recommendation of EIS L5-S1 #1. May need a series of injections for optimal pain relief. Risks, benefits of procedure discussed and pt verbalized understanding. Admits to anticoagulant use or medical history of diabetes. Protocol for discontinuation/ continuation of medications riky procedure discussed. Minimal anesthesia provided per pt preference consisting of Versed and Fentanyl. All questions answered. I have spent less than 30 minutes on patient care today. Dr Ramos was available by phone for the evaluation of this patient. The time was used to review the medical records including relevant urine studies and Prescription history (MAPs), review of the available imaging, evaluation and examination of the patient, coordination of care with the medical staff and if applicable referring physicians, as well as creation of the medical record PQRS Narrative: Smoking Status Former smoker Hx Alcohol Use (MH) No Home Medications: Ambulatory Orders Nitroglycerin Sl Tabs [Nitrostat] 0.4 mg SL Q5M PRN 12/29/13 Sertraline HCl [Zoloft] 100 mg PO HS 12/22/18 Ipratropium-Albuterol Nebulize [Duoneb 0.5 mg-3 mg/3 ml Soln] 3 ml INHALATION RT-QID PRN 02/26/19 Atorvastatin [Lipitor] 20 mg PO HS 03/09/19 Levothyroxine Sodium [Synthroid] 75 mcg PO DAILY 06/17/19 Albuterol Inhaler [Ventolin Hfa Inhaler] 2 puff INHALATION RT-QID PRN 10/09/20 Montelukast [Singulair] 10 mg PO DAILY 10/09/20 Omeprazole 20 mg PO DAILY 10/09/20 Amiodarone [Cordarone] 100 mg PO DAILY 01/17/22 Cholecalciferol [Vitamin D3 (25 Mcg = 1000 Iu)] 50 mcg PO DAILY 01/17/22 Cyanocobalamin [Vitamin B-12] 500 mcg PO DAILY 01/17/22 Budesonide-Formot 160-4.5 Mcg [Symbicort 160-4.5 Mcg Inhaler] 2 puff INHALATION RT-BID #1 each 01/31/22 Apixaban [Eliquis] 2.5 mg PO BID 04/29/22 Folic Acid 0.4 mg PO DAILY 04/29/22 calcitrioL [Calcitriol] 0.25 mcg PO TH 04/29/22 Gabapentin [Neurontin] 400 mg PO TID 05/18/22 Furosemide [Lasix] 20 mg PO DAILY 07/09/22 Furosemide [Lasix] 40 mg PO DAILY 07/09/22 Ascorbic Acid [Vitamin C] 1,000 mg PO DAILY 07/28/22 Metoprolol Tartrate [Lopressor] 25 mg PO DAILY 09/07/22 Cyclobenzaprine [Flexeril] 10 mg PO TID PRN 10/28/22 allopurinoL [Zyloprim] 100 mg PO BID 10/28/22 predniSONE 10 mg PO DAILY PRN 10/28/22 traZODone HCL 300 mg PO HS 10/28/22 Cefpodoxime Proxetil [Vantin] 200 mg PO Q12HR 5 Days #10 tab 11/16/22 Controlled Substance Measures - Controlled Substance Measures Is patient prescribed a controlled substance at discharge?: No
== END ==
LOC: PNWHC3 09:26
PROVIDERS: ATTEND Specialist
DX: M51.36 Other intervertebral disc degeneration, lumbar region (principal); M47.816 Spondylosis without myelopathy or radiculopathy, lumbar region; G89.29 Other chronic pain; Z87.891 Personal history of nicotine dependence; Z88.2 Allergy status to sulfonamides; Z88.8 Allergy status to other drugs, medicaments and biological substances
CPT/HCPCS: 99211

== ENCOUNTER 2022-12-03 08:03 | Day surgery (SDC) | payer MEDICARE, OTHER ==
[2022-11-27 14:29] VITALS: BMI 31.6
[2022-12-03] MEDS ORDERED: LACTATED RINGERS 1,000 ML IV SCH (08:31)
[2022-12-03 09:16] VITALS: TEMP 97.1
[2022-12-03] MEDS ORDERED: methylPREDNISolone ACETATE 80 MG/ML 1 ML VIAL ONE (09:54)
[2022-12-03] MEDS ORDERED: IOPAMIDOL M200 10 ML VIAL ONE (09:54)
--- NOTE | 2022-12-03 09:59 | P.PCN ---
Date of Procedure: 12/03/22 Procedure(s) Performed: PREOPERATIVE DIAGNOSIS: 1- Lumbar Degenerative Disc Diseases 2-Lumbar spondylosis with Facet arthropathy without myelopathy. POSTOPERATIVE DIAGNOSIS: 1-lumbar degenerative disc disease. 2-lumbar spondylosis with facet arthropathy without myelopathy. PROCEDURE 1. Lumbar epidural steroid injection under fluoroscopic guidance at the L5-S1 level. (Fluoroscopy imaging was available in radiology department) 2. Lumbar epidurogram. ANESTHESIA: Lidocaine 1% 3 and then only. EBL: Minimal PROCEDURE INDICATION: The patient with low back pain and radiculitis symptoms unresponsive to conservative treatment. Fluoroscopy was used to optimize visualization of the needle placement and to maximize safety. PROCEDURE DESCRIPTION / TECHNIQUE: The patient was seen and identified in the preoperative area. Risks, benefits, complications including but not limited to infections ,bleeding ,allergic reaction to the medications ,nerve damage and not complete pain releife , and alternatives were discussed with the patient. The patient agreed to proceed with the procedure and signed the consent, and vital signs were stable. Patient was taken to the OR and time out was completed. The patient was placed in the prone position on procedure table and a pillow was placed under the abdomen to reduce lumbar lordosis. The lumbosacral area was prepped and draped in the usual sterile fashion.ere closely monitored during the procedure. Vital signs was monitered during the entire procedure. Using anterior-posterior fluoroscopy, the L5-S1 interlaminar space was identified and the skin over this site was marked and then infiltrated with 1% lidocaine subcutaneously. Subsequently, a 20-gauge Tuohy epidural needle was inserted and advanced toward the epidural space using the ``Loss of resistance technique and guided by AP and lateral fluoroscopy. The correct needle position in the epidural space was verified with the injection of 2 mL of the water soluble contrast dye Isovue 200 contrast and observing an excellent epidurogram with the epidural spread of the dye, after negative aspiration for blood and CSF and in the absence of paresthesias. Again after negative aspiration, a 6 ml mixture containing 60 mg of Depo-medrol ( Preservetive Free ), and 2 ml of preservative free Normal Saline, and 2 ml of preservative free lidocaine 1% solution was injected and a washout of epidurogram was seen. Needle was withdrawn intact, skin was cleansed, and bandages were applied. COMPLICATIONS: None DISPOSITION / PLANS: The patient was placed in a supine position and transferred to the recovery area in a stable condition for observation. There was no evidence of lower extremity motor or sensory deficit after the procedure. Patient was discharged from the recovery room after meeting discharge criteria. Home discharge instructions were given to the patient by the staff. The patient was reexamined prior to discharge. The patient will schedule a follow up in the clinic in 2-4 weeks.
[2022-12-03 10:08] VITALS: RESP 16
--- NOTE | 2022-12-03 10:16 | FL ---
Intraoperative/procedural fluoroscopic services were provided for pain management. Total fluoroscopy time is 4.4 seconds with a total of 1 submitted image to PACS. Total DAP [id number] [id number]. Please see t he operative note for further details.
[2022-12-03 10:22] VITALS: BP 132/76; PULSE 75
== END 2022-12-03 10:27 | disposition home or self-care (01) ==
LOC: ORPAIN 08:03
PROVIDERS: ATTEND Specialist
DX: M51.16 Intervertebral disc disorders with radiculopathy, lumbar region (principal); M47.26 Other spondylosis with radiculopathy, lumbar region; Z79.01 Long term (current) use of anticoagulants; Z79.899 Other long term (current) drug therapy
CPT/HCPCS: 62323; J1040; Q9966

== ENCOUNTER 2023-01-30 16:17 | Inpatient (IN) | payer MEDICARE, OTHER ==
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
[2023-01-30] MEDS ORDERED: SODIUM CHLORIDE 0.9% 500 ML 500 ML IV STA (17:06)
[2023-01-30 17:18] LABS: VBG PH 7.39 (7.31-7.41)
[2023-01-30 17:21] LABS: Basophils # (A) 0.1 k/uL (0-0.2); Basophils % (A) 0 %; Eosinophils # (A) 0.5 k/uL (0-0.7); Eosinophils % (A) 1 %; HCT 40.5 % (34.0-46.0); Lymphocytes # (A) 1.8 k/uL (1.0-4.8); Lymphocytes % (A) 5 %; MCH 31.8 pg (25.0-35.0); MCHC 32.2 g/dL (31.0-37.0); MCV 98.8 fL (80.0-100.0); Macrocytosis Slight; Mean Platelet Volume 7.8; Monocytes % (A) 3 %; Neutrophils # (A) 29.8 k/uL (1.3-7.7); Neutrophils % (A) 90 %; Platelet Count 225 k/uL (150-450); RDW 15.2 % (11.5-15.5); WBC 33.3 k/uL (3.8-10.6)
[2023-01-30 17:28] LABS: Partial Thromboplastin Time 25.2 sec (22.0-30.0)
[2023-01-30 17:38] LABS: ALT 30 U/L (4-34); African American GFR (CKD) 24 (>60 ml/min/1.73 sqM); Anion Gap 10 mmol/L; Blood Urea Nitrogen 56 mg/dL (7-17); Carbon Dioxide 27 mmol/L (22-30); Chloride 98 mmol/L (98-107); Glucose 102 mg/dL (74-99); Non-African American GFR(CKD) 21 (>60 ml/min/1.73 sqM); Sodium 135 mmol/L (137-145); Total Bilirubin 0.8 mg/dL (0.2-1.3); Total Protein 7.8 g/dL (6.3-8.2)
[2023-01-30 17:39] LABS: AST 47 U/L (14-36); Alkaline Phosphatase 140 U/L (38-126); Magnesium 2.1 mg/dL (1.6-2.3); Phosphorus 5.2 mg/dL (2.5-4.5); Potassium 4.8 mmol/L (3.5-5.1)
--- NOTE | 2023-01-30 18:04 | XR ---
EXAMINATION TYPE: XR chest 2V DATE OF EXAM: 01/30/2023 COMPARISON: 11/13/2022 INDICATION: Pain TECHNIQUE: Frontal and lateral views of the chest are obtained. FINDINGS: The heart size is prominent. The pulmonary vasculature is upper limits of normal. The lungs are clear. IMPRESSION: 1. Radial mainly with somewhat prominent pulmonary vascular markings. Correlate for early volume over load
[2023-01-30] MEDS ORDERED: SODIUM CHLORIDE 0.9% 1,000 ML IV STA (18:26)
[2023-01-30 20:34] LABS: Appearance,Urine Cloudy (Clear); Bacteria,Urine Many /hpf; Bilirubin,Urine Negative (Negative); Blood,Urine Small (Negative); Color,Urine Light Yellow; Glucose,Urine (UA) Negative (Negative); Hyaline Casts,Urine 10 /lpf (0-2); Ketones,Urine Negative (Negative); Leukocyte Esterase,Urine Large (Negative); Mucus,Urine Rare /hpf; Nitrite,Urine Negative (Negative); Protein,Urine Trace (Negative); RBC,Urine 7 /hpf (0-5); Squamous Epithelial Cell,Urine 4 /hpf (0-4); Urobilinogen,Urine <2.0 mg/dL (<2.0); WBC,Urine 100 /hpf (0-5)
[2023-01-30] MEDS ORDERED: NALOXONE 0.4 MG/ML 1 ML VIAL IV PRN (21:18)
[2023-01-30] MEDS ORDERED: HYDROmorphone 1 MG/ML 1 ML SYRINGE IVP PRN (21:18)
[2023-01-30] MEDS ORDERED: SODIUM CHLORIDE 0.9% 1,000 ML IV SCH (21:30)
[2023-01-31 02:08] LABS: Basophils % (A) 0 %; Eosinophils # (A) 0.7 k/uL (0-0.7); Eosinophils % (A) 3 %; HCT 37.2 % (34.0-46.0); HGB 11.9 gm/dL (11.4-16.0); Hypochromasia Slight; Lymphocytes # (A) 1.4 k/uL (1.0-4.8); Lymphocytes % (A) 6 %; MCHC 31.9 g/dL (31.0-37.0); MCV 100.1 fL (80.0-100.0); Macrocytosis Slight; Mean Platelet Volume 7.6; Monocytes # (A) 0.7 k/uL (0-1.0); Monocytes % (A) 3 %; Neutrophils # (A) 19.5 k/uL (1.3-7.7); Neutrophils % (A) 87 %; Platelet Count 195 k/uL (150-450); RBC 3.71 m/uL (3.80-5.40); RDW 15.1 % (11.5-15.5); WBC 22.4 k/uL (3.8-10.6)
[2023-01-31] MEDS ORDERED: ALBUTEROL NEBULIZED 2.5 MG/3 ML INHALATION PRN (04:07)
[2023-01-31] MEDS ORDERED: traZODone HCL 100 MG TAB PO PRN (04:07)
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
[2023-01-31] MEDS: SODIUM CHLORIDE 0.9% 1,000 ML IV SCH ×2 (04:34→14:57)
[2023-01-31] MEDS: LEVOTHYROXINE 75 MCG TAB PO SCH (06:36)
[2023-01-31] MEDS: IPRATROPIUM-ALBUTEROL 3 ML NEB INHALATION SCH ×3 (07:44→20:04)
[2023-01-31] MEDS: SYMBICORT 160-4.5 MCG INHALER INHALATION SCH ×2 (07:44→20:04)
[2023-01-31] MEDS: GABAPENTIN 400 MG CAP PO SCH ×3 (07:55→21:51)
[2023-01-31] MEDS: allopurinoL 100 MG TAB PO SCH ×2 (07:56→21:50)
[2023-01-31] MEDS: APIXABAN 2.5 MG TABLET PO SCH ×2 (07:56→21:51)
[2023-01-31] MEDS: MONTELUKAST 10 MG TAB PO SCH (07:56)
[2023-01-31] MEDS: METOPROLOL TARTRATE 25 MG TAB PO SCH (07:56)
[2023-01-31] MEDS: PANTOPRAZOLE 40 MG TABLET PO SCH (07:56)
[2023-01-31] MEDS: HYDROmorphone 0.5 MG/0.5 ML SYRINGE IVP PRN ×3 (08:56→17:40)
[2023-01-31] MEDS: AMIODARONE 100 MG TAB PO SCH (09:02)
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
[2023-01-31] MEDS: ACETAMINOPHEN TAB 325 MG TAB PO PRN (18:00)
--- NOTE | 2023-01-31 18:12 | US ---
EXAMINATION TYPE: US kidneys/renal and bladder DATE OF EXAM: 01/31/2023 COMPARISON: US 2022 CLINICAL INDICATION: Female, 67 years old with history of hydronephrosis; EXAM MEASUREMENTS: Right Kidney: 7.4 x 4.0 x 3.7 cm Left Kidney: 8.6 x 4.0 x 3.2 cm Right Kidney: small in size, thin cortex Left Kidney: small in size, thin cortex Bladder: wnl Bilateral Jets seen: no IMPRESSION: 1. Mild renal atrophy
[2023-01-31] MEDS ORDERED: IPRATROPIUM-ALBUTEROL 3 ML NEB INHALATION PRN (18:41)
[2023-01-31] MEDS: ATORVASTATIN 20 MG TAB PO SCH (21:50)
[2023-01-31] MEDS: SERTRALINE 100 MG TAB PO SCH (21:50)
[2023-02-01] MEDS: LEVOTHYROXINE 75 MCG TAB PO SCH (05:42)
[2023-02-01] MEDS: IPRATROPIUM-ALBUTEROL 3 ML NEB INHALATION SCH ×3 (07:48→19:56)
[2023-02-01] MEDS: SYMBICORT 160-4.5 MCG INHALER INHALATION SCH ×2 (07:48→19:56)
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
--- NOTE | 2023-02-01 08:07 | XR ---
EXAMINATION TYPE: XR chest 1V portable DATE OF EXAM: 02/01/2023 7:22 AM CLINICAL INDICATION:Female, 67 years old with history of follow up x-ray; [facility] COMPARISON: Chest radiographs from 01/30/2023 TECHNIQUE: XR chest 1V portable Frontal view of the chest. FINDINGS: Lungs/Pleura: There is no evidence of pleural effusion, focal consolidation, or pneumothorax. Pulmonary vascularity: Pulmonary vascular congestion. Heart/mediastinum: Cardiomediastinal silhouette is enlarged and stable. Musculoskeletal: No acute osseous pathology. IMPRESSION: Cardiomegaly and mild pulmonary vascular congestion. Correlate with BNP for congestive heart failure.
[2023-02-01] MEDS ORDERED: FUROSEMIDE 10 MG/ML 4 ML VIAL IV STA (08:17)
[2023-02-01 08:30] LABS: ALT 20 U/L (4-34); AST 21 U/L (14-36); African American GFR (CKD) 39 (>60 ml/min/1.73 sqM); Albumin 3.3 g/dL (3.5-5.0); Alkaline Phosphatase 117 U/L (38-126); Anion Gap 11 mmol/L; Blood Urea Nitrogen 37 mg/dL (7-17); Calcium 8.7 mg/dL (8.4-10.2); Carbon Dioxide 24 mmol/L (22-30); Chloride 103 mmol/L (98-107); Globulin 3.3 g/dL; Glucose 94 mg/dL (74-99); Non-African American GFR(CKD) 34 (>60 ml/min/1.73 sqM); Potassium 4.2 mmol/L (3.5-5.1); Sodium 138 mmol/L (137-145); Total Bilirubin 0.6 mg/dL (0.2-1.3); Total Protein 6.6 g/dL (6.3-8.2)
--- NOTE | 2023-02-01 08:31 | P.PN ---
Subjective Patient is seen in follow-up for acute kidney injury on chronic kidney disease. Creatinine 2.31 dated 01/22/2023. Currently off IV fluids. Lethargic. On 2 L nasal cannula. Vital signs are stable. General: No acute distress. HEENT: Head exam is unremarkable. LUNGS: No audible rhonchi or wheezes. HEART: Rate and Rhythm are regular. ABDOMEN: Nontender. EXTREMITITES: Trace edema. Objective - Vital Signs Vital signs: Vital Signs Temp 98.7 F 02/01/23 07:45 Pulse 87 02/01/23 07:45 Resp 16 02/01/23 07:45 BP 114/75 02/01/23 07:45 Pulse Ox 98 02/01/23 07:45 FiO2 Intake & Output 01/31/23 02/01/23 02/01/23 18:59 06:59 18:59 Output Total 350 Balance -350 Weight 42 kg Output: Urine 350 - Labs CBC & Chem 7: 01/31/23 01:39 01/30/23 17:10 Labs: Microbiology - Last 24 Hours (Table) 01/30/23 19:45 Urine Culture - Preliminary Urine,Voided Gram Neg Bacilli Assessment and Plan Plan: Assessment: 1. Acute kidney injury secondary to ATN secondary to hypotension. Creatinine 2.3 on admission 01/30/2023. No hydronephrosis noted on kidney ultrasound. Kidneys atrophic. 2. Chronic kidney disease stage IIIB with baseline creatinine near 2 secondary to nephrosclerosis. 3. Acute hypoxic respiratory failure. 4. Volume overload. 5. Acute on chronic diastolic CHF with moderate mitral regurgitation. 6. Coronary artery disease with prior stenting. 7. Gram-negative UTI on antibiotics. 8. Chronic kidney disease mineral bone disease maintained on calcitriol. Plan: Lasix 40 mg IV once today. Insert Edwards catheter if has urinary retention. Avoid nephrotoxins. Continue to monitor renal function and urine output. Follow-up echocardiogram
[2023-02-01 08:38] LABS: NT-Pro-B-Type Natriuretic Pept 1110 pg/mL
[2023-02-01] MEDS: APIXABAN 2.5 MG TABLET PO SCH ×2 (10:11→20:20)
[2023-02-01] MEDS: GABAPENTIN 400 MG CAP PO SCH ×3 (10:11→21:21)
[2023-02-01] MEDS: METOPROLOL TARTRATE 25 MG TAB PO SCH (10:11)
[2023-02-01] MEDS: PANTOPRAZOLE 40 MG TABLET PO SCH (10:11)
[2023-02-01] MEDS: allopurinoL 100 MG TAB PO SCH ×2 (10:11→20:20)
[2023-02-01] MEDS: AMIODARONE 100 MG TAB PO SCH (10:11)
[2023-02-01] MEDS: MONTELUKAST 10 MG TAB PO SCH (10:11)
[2023-02-01] MEDS: DAPAGLIFLOZIN PROPANEDIOL 10 MG TABLET PO SCH (10:20)
[2023-02-01] MEDS: HYDROmorphone 0.5 MG/0.5 ML SYRINGE IVP PRN ×3 (11:05→19:33)
[2023-02-01 11:08] LABS: HCT 39.8 % (37.2-46.3); HGB 12.1 d/dL (12.0-15.0); MCH 30.9 pg (27.0-32.0); MCHC 30.4 d/dL (32.0-37.0); MCV 101.5 FL (80.0-97.0); Mean Platelet Volume 10.6 FL (9.5-12.2); NRBC Per 100 WBC 0 X 10*3/uL (0.00-0.01); Platelet Count 196 X 10*3/uL (140-440); RBC 3.92 X 10*6/uL (4.10-5.20); RDW 15.7 % (11.5-14.5); WBC 20.56 X 10*3/uL (4.50-10.00)
--- NOTE | 2023-02-01 11:30 | P.PN ---
Subjective Progress Note Date: 02/01/23 History of present illness: Patient is a pleasant 67-year-old female with significant past medical history of A. 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 She follows with Dr. Stockton in the office. Apparently 2 weeks ago patient was feeling increased shortness of breath. Patient presently is a poor historian, no family at bedside. She does report having a cough for the past few months. She denies any chest pain or pressure. Prior echocardiogram 04/2022 with ejection fraction 55%, moderate mitral regurgitation, mild aortic stenosis. She was found to have a urinary tract infection. Labs reviewed: Troponin negative, BNP elevated 4250, WBC elevated 22.4, creatinine 2.31, TSH normal. EKG shows sinus rhythm, no significant ST or T wave changes. 02/01 Patient is seen today in follow-up. She denies having any chest pain. She is still having some wheezing. We're waiting on echocardiogram which has been obtained and waiting for report. Blood pressure 114/75, heart rate in 70s and 80s, pulse ox 90% on 2 L nasal cannula, afebrile. Repeat blood work reveals WBC 20, hemoglobin 12.1. Potassium 4.2, BUN 37 creatinine 1.55. PHYSICAL EXAMINATION: This is a 67 year-old female in no apparent distress at the time of my examination. HEENT: Head is atraumatic, normocephalic. Pupils are equal, round. Sclerae anicteric. Conjunctivae are clear. Mucous membranes of the mouth are moist. Neck is supple. There is no jugular venous distention. No carotid bruit is heard. CHEST EXAMINATION: Lungs with wheezes and rhonchi. No chest wall tenderness is noted on palpation or with deep breathing. HEART EXAMINATION: Heart regular rate and rhythm. S1, S2 heard. No murmurs, gallops or rub. ABDOMEN: Soft, nontender. Bowel sounds are heard. EXTREMITIES: 2+ peripheral pulses with no evidence of peripheral edema and no calf tenderness noted. NEUROLOGIC EXAMINATION: Patient is awake, alert, some expressive aphasia and memory issues. IMPRESSION AND PLAN: Paroxysmal atrial fibrillation Chronic diastolic heart failure Hypertension Hyperlipidemia CAD status post PCI of RCA Prior TBI COPD on home oxygen CKD Frequent UTIs Leukocytosis PLAN: Continue patient on current cardiac medications Add Farxiga 10 mg daily One dose of IV Lasix this morning per nephrology Obtain echocardiogram report At the time of discharge, patient will follow-up with Dr. Stockton in one to 2 weeks. Nurse practitioner note has been reviewed, I agree with the documented findings and plan of care. Patient was seen and examined. Objective - Vital Signs Vital signs: Vital Signs Temp 98.7 F 02/01/23 07:45 Pulse 87 02/01/23 07:45 Resp 16 02/01/23 07:45 BP 114/75 02/01/23 07:45 Pulse Ox 98 02/01/23 07:45 FiO2 Intake & Output 01/31/23 02/01/23 02/01/23 18:59 06:59 18:59 Output Total 350 Balance -350 Weight 42 kg Output: Urine 350 - Labs CBC & Chem 7: 02/01/23 07:30 02/01/23 07:30 Labs: Abnormal Lab Results - Last 24 Hours (Table) 02/01/23 Range/Units 07:30 BUN 37 H (7-17) mg/dL Creatinine 1.55 H (0.52-1.04) mg/dL Albumin 3.3 L (3.5-5.0) g/dL Microbiology - Last 24 Hours (Table) 01/30/23 19:45 Urine Culture - Preliminary Urine,Voided Gram Neg Bacilli
--- NOTE | 2023-02-01 12:05 | P.PN ---
Subjective Progress Note Date: 02/01/23 Principal diagnosis: Urinary tract infection Patient is a 67-year-old female with a past medical history significant for hypertension hyperlipidemia COPD CVA TIA coronary disease atrial fibrillation patient presenting to the hospital for evaluation of generalized weakness and fatigue, patient did have some urinary symptoms positive UA fever concerning for symptomatic urinary tract infection On today's evaluation that is 02/01/2023, the patient is afebrile today, the patient is breathing comfortably on 2 L nasal cannula oxygen, patient denies any shortness of breath, the patient denies any chest pain or cough, patient denies abdominal pain and no nausea/vomiting or diarrhea White count is slightly down to 20,000 creatinine is 1.55 abdominal bladder ultrasound with mild renal atrophy, chest x-ray with current megaly and mild pulmonary vascular congestion Objective - Vital Signs Vital signs: Vital Signs Temp 98.7 F 02/01/23 07:45 Pulse 87 02/01/23 07:45 Resp 16 02/01/23 07:45 BP 114/75 02/01/23 07:45 Pulse Ox 98 02/01/23 07:45 FiO2 Intake & Output 01/31/23 02/01/23 02/01/23 18:59 06:59 18:59 Output Total 350 Balance -350 Weight 42 kg Output: Urine 350 - Exam GENERAL DESCRIPTION: An elderly female lying in bed in no distress RESPIRATORY SYSTEM: Unlabored breathing , clear to auscultation anteriorly HEART: S1 S2 regular rate and rhythm , ABDOMEN: Soft , no tenderness EXTREMITIES: No edema feet - Labs CBC & Chem 7: 02/01/23 07:30 02/01/23 07:30 Labs: Abnormal Lab Results - Last 24 Hours (Table) 02/01/23 02/01/23 Range/Units 07:30 07:30 WBC 20.56 H (4.50-10.00) X 10*3/uL RBC 3.92 L (4.10-5.20) X 10*6/uL MCV 101.5 H (80.0-97.0) FL MCHC 30.4 L (32.0-37.0) d/dL RDW 15.7 H (11.5-14.5) % BUN 37 H (7-17) mg/dL Creatinine 1.55 H (0.52-1.04) mg/dL Albumin 3.3 L (3.5-5.0) g/dL Microbiology - Last 24 Hours (Table) 01/30/23 19:45 Urine Culture - Preliminary Urine,Voided Gram Neg Bacilli Assessment and Plan (1) Allergy to multiple antibiotics Current Visit: Yes Status: Acute Code(s): Z88.1 - ALLERGY STATUS TO OTHER ANTIBIOTIC AGENTS SNOMED Code(s): 980349659 (2) Urinary tract infection Current Visit: Yes Status: Acute Code(s): N39.0 - URINARY TRACT INFECTION, SITE NOT SPECIFIED SNOMED Code(s): 89552452 Plan: 1patient presented to hospital generalized weakness which is likely multifactorial did have elevated white count urinary symptoms and positive UA concerning for symptomatic urinary tract infection likely from enteric gram- negative pathogen patient also have elevated BUN/creatinine concern for possible obstructive uropathy and complicated UTI 2- ultrasound of the kidney and bladder area, with some renal atrophy no hydronephrosis 3Patient to continue Rocephin to 2 g daily while waiting for the cultures to finalize Dictation was produced using [employer] dictation software. please excuse any grammatical, word or spelling errors. Time with Patient: Less than 30
--- NOTE | 2023-02-01 12:32 | CA ---
Transthoracic Echo Report Name: Madina Nick Age: 67 Gender: F : 1955 Exam Date: 02/01/2023 10:19 Exam Location: [facility] Ht (in): 63 Wt (lb): 182 Ordering Physician: Cha Merritt Attending/Referring Phys: [employer] Ty Lennon Procedure CPT: Indications: chf Cardiac Hx: Technical Quality: Fair Contrast 1: Total Dose (mL): Contrast 2: Total Dose (mL): MEASUREMENTS (Male / Female) Normal Values 2D ECHO LV Diastolic Diameter PLAX 4.4 cm 4.2 - 5.9 / 3.9 - 5.3 cm LV Systolic Diameter PLAX 3.4 cm IVS Diastolic Thickness 1.0 cm 0.6 - 1.0 / 0.6 - 0.9 cm LVPW Diastolic Thickness 1.1 cm 0.6 - 1.0 / 0.6 - 0.9 cm LV Relative Wall Thickness 0.5 RV Internal Dim ED PLAX 3.1 cm LVOT Diameter 2.2 cm Aortic Root Diameter 3.1 cm LA Systolic Diameter LX 3.5 cm 3.0 - 4.0 / 2.7 - 3.8 cm LV Diastolic Volume MOD BP 48.2 cm??? 67 - 155 / 56 - 104 cm??? LV Systolic Volume MOD BP 23.0 cm??? / 19 - 49 cm??? LV Ejection Fraction MOD BP 52.2 % >= 55 % LV Cardiac Index MOD BP 1215.3 cm???/min???m??? LV Diastolic Volume MOD 4C 55.6 cm??? LV Systolic Volume MOD 4C 26.3 cm??? LV Ejection Fraction MOD 4C 52.7 % LV Cardiac Index MOD 4C 1414.5 cm???/min???m??? LV Diastolic Length 4C 6.4 cm LV Systolic Length 4C 6.3 cm LV Diastolic Volume MOD 2C 41.3 cm??? LV Systolic Volume MOD 2C 18.7 cm??? LV Ejection Fraction MOD 2C 54.8 % LV Cardiac Index MOD 2C 1093.1 cm???/min???m??? LV Diastolic Length 2C 6.3 cm LV Systolic Length 2C 5.7 cm LA Volume 60.1 cm??? 18 - 58 / 22 - 52 cm??? LA Volume Index 30.8 cm???/m??? 16 - 28 cm???/m??? Ascending Aorta Diameter 3.2 cm DOPPLER AV Peak Velocity 238.3 cm/s AV Peak Gradient 22.7 mmHg AV Mean Velocity 159.2 cm/s AV Mean Gradient 11.9 mmHg AV Velocity Time Integral 37.1 cm AI Peak Velocity 444.6 cm/s AI Peak Gradient 79.1 mmHg AI Pressure Half Time 697.1 ms LVOT Peak Velocity 97.0 cm/s LVOT Peak Gradient 3.8 mmHg LVOT Velocity Time Integral 16.2 cm LVOT Stroke Volume 62.7 cm??? LVOT Stroke Volume Index 33.7 ml/m??? LVOT Cardiac Index 3025.4 cm???/min???m??? AV Area Cont Eq vti 1.7 cm??? AV Area Cont Eq pk 1.6 cm??? MV Peak Velocity 114.8 cm/s MV Peak Gradient 5.3 mmHg MV Mean Velocity 70.3 cm/s MV Mean Gradient 2.3 mmHg MV Velocity Time Integral 36.0 cm MR Peak Velocity 488.8 cm/s MR Peak Gradient 95.6 mmHg Mitral E Point Velocity 101.5 cm/s Mitral A Point Velocity 110.1 cm/s Mitral E to A Ratio 0.9 MV Deceleration Time 235.8 ms MV E' Velocity 6.6 cm/s Mitral E to MV E' Ratio 15.4 TR Peak Velocity 276.7 cm/s TR Peak Gradient 30.6 mmHg Right Ventricular Systolic Press 35.6 mmHg FINDINGS Left Ventricle Normal LV size and wall thickness. Left ventricular ejection fraction is estimated at 50-55 %. With no segmental wall motion abnormality Right Ventricle Normal right ventricular size. RVSP= 35mmHg. Right Atrium Normal right atrial size. Left Atrium Mildly increased left atrial volume. Mildly increased left atrial area. LA volume index=32ml/m2 Mitral Valve Mild mitral thickening. Mild MR. Aortic Valve Moderate AV calcification. Moderate AI. Tricuspid Valve Tricuspid valve not well visualized. Mild TR. Pulmonic Valve Pulmonic valve not well visualized. No pulmonic regurgitation. Pericardium Normal pericardium. Aorta Normal size aortic root and proximal ascending aorta. CONCLUSIONS 1. Left ventricle systolic function borderline normal 2. Moderate aortic with mild mitral and tricuspid regurgitation and mild pulmonary hypertension Previewed by: Dr. Felix Barnes MD (Electronically Signed) Final Date: 01 February 2023 12:32
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
[2023-02-01] MEDS: ATORVASTATIN 20 MG TAB PO SCH (20:20)
[2023-02-01] MEDS: SERTRALINE 100 MG TAB PO SCH (20:20)
[2023-02-01] MEDS ORDERED: HYDROcodone/APAP 5-325MG 1 EACH TAB PO STA (20:58)
[2023-02-02] MEDS: LEVOTHYROXINE 75 MCG TAB PO SCH (05:34)
[2023-02-02] MEDS: HYDROmorphone 0.5 MG/0.5 ML SYRINGE IVP PRN (05:34)
[2023-02-02 07:30] LABS: African American GFR (CKD) 39 (>60 ml/min/1.73 sqM); Anion Gap 11 mmol/L; Blood Urea Nitrogen 37 mg/dL (7-17); Calcium 8.6 mg/dL (8.4-10.2); Carbon Dioxide 23 mmol/L (22-30); Chloride 101 mmol/L (98-107); Glucose 109 mg/dL (74-99); Magnesium 1.7 mg/dL (1.6-2.3); Non-African American GFR(CKD) 34 (>60 ml/min/1.73 sqM); Potassium 4.3 mmol/L (3.5-5.1); Sodium 135 mmol/L (137-145)
[2023-02-02] MEDS: IPRATROPIUM-ALBUTEROL 3 ML NEB INHALATION SCH ×3 (07:39→19:36)
[2023-02-02] MEDS: SYMBICORT 160-4.5 MCG INHALER INHALATION SCH ×2 (07:39→19:36)
[2023-02-02] MEDS: ACETAMINOPHEN TAB 325 MG TAB PO PRN (08:12)
[2023-02-02] MEDS ORDERED: FUROSEMIDE 10 MG/ML 4 ML VIAL IV SCH (09:00)
[2023-02-02] MEDS: methylPREDNISolone SOD SUCCI 125 MG/2 ML VIAL IV SCH ×3 (09:04→20:54)
[2023-02-02] MEDS: DAPAGLIFLOZIN PROPANEDIOL 10 MG TABLET PO SCH (11:00)
[2023-02-02] MEDS: APIXABAN 2.5 MG TABLET PO SCH ×2 (11:02→20:57)
[2023-02-02] MEDS: GABAPENTIN 400 MG CAP PO SCH ×3 (11:02→20:57)
[2023-02-02] MEDS: PANTOPRAZOLE 40 MG TABLET PO SCH (11:02)
[2023-02-02] MEDS: AMIODARONE 100 MG TAB PO SCH (11:03)
[2023-02-02] MEDS: allopurinoL 100 MG TAB PO SCH ×2 (11:03→20:56)
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
--- NOTE | 2023-02-02 11:56 | P.PN ---
Subjective Patient is seen in follow-up for acute kidney injury on chronic kidney disease. Renal function improved from admission. On IV Lasix. Admits to good urine output. Vital signs are stable. General: No acute distress. HEENT: Head exam is unremarkable. On nasal cannula. LUNGS: No audible rhonchi or wheezes. HEART: Rate and Rhythm are regular. ABDOMEN: Nontender. EXTREMITITES: Trace edema. Objective - Vital Signs Vital signs: Vital Signs Temp 99.1 F 02/02/23 10:35 Pulse 100 02/02/23 11:14 Resp 16 02/02/23 07:30 BP 91/58 02/02/23 07:30 Pulse Ox 88 L 02/02/23 07:30 FiO2 Intake & Output 02/01/23 02/02/23 02/02/23 18:59 06:59 18:59 Intake Total 120 Output Total 900 Balance -900 120 Weight 42 kg 59 kg Intake: Oral 120 Output: Urine 900 Other: Voiding Method Toilet # Voids 3 1 - Labs CBC & Chem 7: 02/01/23 07:30 02/02/23 06:15 Labs: Abnormal Lab Results - Last 24 Hours (Table) 02/02/23 Range/Units 06:15 Sodium 135 L (137-145) mmol/L BUN 37 H (7-17) mg/dL Creatinine 1.56 H (0.52-1.04) mg/dL Glucose 109 H (74-99) mg/dL Microbiology - Last 24 Hours (Table) 01/30/23 19:45 Urine Culture - Final Urine,Voided Klebsiella pneumoniae 01/30/23 22:00 Blood Culture - Preliminary Blood 01/30/23 21:45 Blood Culture - Preliminary Blood Assessment and Plan Plan: Assessment: 1. Acute kidney injury secondary to ATN secondary to hypotension. Creatinine 2.3 on admission 01/30/2023 - stable at 1.56 today. No hydronephrosis noted on kidney ultrasound. Kidneys atrophic. 2. Chronic kidney disease stage IIIB with baseline creatinine near 2 secondary to nephrosclerosis. 3. Acute hypoxic respiratory failure. 4. Volume overload. 5. Acute on chronic diastolic CHF with moderate aortic regurgitation, mild mitral and tricuspid regurgitation. 6. Coronary artery disease with prior stenting. 7. Klebsiella UTI on antibiotics. 8. Chronic kidney disease mineral bone disease maintained on calcitriol. Plan: Maintain IV Lasix. Avoid nephrotoxins. Continue to monitor renal function and urine output. Add midodrine. Hold for systolic blood pressure greater than 110.
[2023-02-02] MEDS: MIDODRINE 5 MG TAB PO SCH ×2 (13:19→17:58)
[2023-02-02] MEDS: METOPROLOL TARTRATE 25 MG TAB PO SCH (13:24)
[2023-02-02] MEDS: MONTELUKAST 10 MG TAB PO SCH ×2 (13:31→13:55)
--- NOTE | 2023-02-02 14:06 | P.PN ---
Subjective Progress Note Date: 02/02/23 History of present illness: Patient is a pleasant 67-year-old female with significant past medical history of A. 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 She follows with Dr. Stockton in the office. Apparently 2 weeks ago patient was feeling increased shortness of breath. Patient presently is a poor historian, no family at bedside. She does report having a cough for the past few months. She denies any chest pain or pressure. Prior echocardiogram 04/2022 with ejection fraction 55%, moderate mitral regurgitation, mild aortic stenosis. She was found to have a urinary tract infection. Labs reviewed: Troponin negative, BNP elevated 4250, WBC elevated 22.4, creatinine 2.31, TSH normal. EKG shows sinus rhythm, no significant ST or T wave changes. 02/01 Patient is seen today in follow-up. She denies having any chest pain. She is still having some wheezing. We're waiting on echocardiogram which has been obtained and waiting for report. Blood pressure 114/75, heart rate in 70s and 80s, pulse ox 90% on 2 L nasal cannula, afebrile. Repeat blood work reveals WBC 20, hemoglobin 12.1. Potassium 4.2, BUN 37 creatinine 1.55. 02/02 Patient states that breathing is okay. No chest pain and no wheezing. She denies having any nausea. Blood pressure is soft 83/53. Heart rate is in the 80s. Patient is still febrile. Repeat blood work reveals sodium 135, potassium 4.3, BUN 37 creatinine 1.56. Midodrine has been added by nephrology and attending his added and IV Lasix 40 mg every 12 hours. PHYSICAL EXAMINATION: This is a 67 year-old female in no apparent distress at the time of my examination. HEENT: Head is atraumatic, normocephalic. Pupils are equal, round. Sclerae anicteric. Conjunctivae are clear. Mucous membranes of the mouth are moist. Neck is supple. There is no jugular venous distention. No carotid bruit is heard. CHEST EXAMINATION: Lungs with wheezes and rhonchi. No chest wall tenderness is noted on palpation or with deep breathing. HEART EXAMINATION: Heart regular rate and rhythm. S1, S2 heard. No murmurs, gallops or rub. ABDOMEN: Soft, nontender. Bowel sounds are heard. EXTREMITIES: 2+ peripheral pulses with no evidence of peripheral edema and no calf tenderness noted. NEUROLOGIC EXAMINATION: Patient is awake, alert, some expressive aphasia and memory issues. IMPRESSION AND PLAN: Paroxysmal atrial fibrillation Chronic diastolic heart failure Hypertension Hyperlipidemia CAD status post PCI of RCA Prior TBI COPD on home oxygen CKD Acute urinary tract infection and sepsis PLAN: Continue patient on current cardiac medications Add Farxiga 10 mg daily IV Lasix has been started At the time of discharge, patient will follow-up with Dr. Stockton in one to 2 weeks. Cardiology will sign off this case and follow on an as-needed basis. Please reconsult for any new concerns. Nurse practitioner note has been reviewed, I agree with the documented findings and plan of care. Patient was seen and examined. Objective - Vital Signs Vital signs: Vital Signs Temp 98.1 F 02/02/23 02:00 Pulse 128 H 02/02/23 07:52 Resp 20 02/02/23 02:00 BP 97/66 02/02/23 02:00 Pulse Ox 96 02/02/23 02:00 FiO2 Intake & Output 02/01/23 02/02/23 02/02/23 18:59 06:59 18:59 Intake Total 120 Output Total 900 Balance -900 120 Weight 42 kg 59 kg Intake: Oral 120 Output: Urine 900 Other: Voiding Method Toilet # Voids 3 1 - Labs CBC & Chem 7: 02/01/23 07:30 02/02/23 06:15 Labs: Abnormal Lab Results - Last 24 Hours (Table) 02/01/23 02/01/23 02/02/23 Range/Units 07:30 07:30 06:15 WBC 20.56 H (4.50-10.00) X 10*3/uL RBC 3.92 L (4.10-5.20) X 10*6/uL MCV 101.5 H (80.0-97.0) FL MCHC 30.4 L (32.0-37.0) d/dL RDW 15.7 H (11.5-14.5) % Sodium 135 L (137-145) mmol/L BUN 37 H 37 H (7-17) mg/dL Creatinine 1.55 H 1.56 H (0.52-1.04) mg/dL Glucose 109 H (74-99) mg/dL Albumin 3.3 L (3.5-5.0) g/dL Microbiology - Last 24 Hours (Table) 01/30/23 19:45 Urine Culture - Final Urine,Voided Klebsiella pneumoniae 01/30/23 22:00 Blood Culture - Preliminary Blood 01/30/23 21:45 Blood Culture - Preliminary Blood
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
--- NOTE | 2023-02-02 14:30 | CDI ---
Documentation Clarification Form Date: 02/02/2023 02:14:52 PM From: Diane Valdez RN, CCDS Email: [email or web address] Admit Date: 01/30/2023 09:51:00 PM Patient Name: Madina Nick Visit Number: [id number] Discharge Date: ATTENTION: The Clinical Documentation Specialists (CDI) and [facility] Coding Staff appreciate your assistance in clarifying documentation. Please respond to the clarification below the line at the bottom and electronically sign. The CDI & [facility] Coding staff will review the response and follow-up if needed. Please note: Queries are made part of the Legal Health Record. If you have any questions, please contact the author of this message via ITS. Dr. Juvenal Graham The patient has a UTI, fever and elevated WBC count. Based on this information and the findings below, is there an additional diagnosis that is clinically appropriate for this patient? History/Risk Factors: A fib on Eliquis, COPD, CHF, CKD, UTI, asthma, CAD, DVT, GERD, HLD, DVT, thyroid disorder, anxiety, bipolar, depression, chronic pain and frequent admissions for UTI. Presented with weakness and fatigue. Admitted with recurrent UTI and BEHZAD on CKD. Clinical Indicators: 01/31 Pulmonary consult: "Generalized weakness, likely secondary infection/UTI/sepsis." 02/02 Pulmonary: "Generalized weakness, secondary to Klebsiella pneumoniae urinary tract infection. Febrile illness secondary to above." 01/30-02/02 WBC: 33.3-22.4-20.56 01/30-02/02 Cr: 2.31-1.55 01/30 Urine culture: klebsiella pneumoniae 01/30 UA: cloudy, small blood, larger leukocyte esterase, 100 WBC, many bacteria Vitals signs: 01/30-02/02 Temp 97.9-100.6-99.1-98.1-102.5-102.3-98.4 01/31 BP 86/50 02/02 HR 128 Treatment: 01/31 ID Consult: "elevated white count urinary symptoms and positive UA concerning for symptomatic urinary tract infection likely from enteric gram- negative pathogen." Antibiotics: IV Rocephin 1gm x1 on 01/30 then Q24H on 01/31 then 2gm Q24H 02/01- current; IV Bolus: 2L 0.9 NS IV bolus on 01/30 then 100mL/hr Is there an additional diagnosis that is clinically appropriate for this patient? [ ] Sepsis, present on admission [ ] Sepsis, developed during stay, not present on admission [ ] Severe Sepsis with organ failure [ ] Other, please specify [ ] Unable to determine SIRS Criteria: 2 or more of the following may indicate SIRS Temperature < 96.8F (36C) or > 101.0F (38.3C) Heart Rate > 90 bpm Respiratory Rate > 20 breaths/min or PaCO2 < 32 mmHg White Blood Cell Count > 12,000 or < 4,000 cells/mm3 or > 10% bands I only managed the initial encounter with the patient, Recurrent UTI , did not meet criteria for sepsis upon presentation. SERENITYD
--- NOTE | 2023-02-02 15:33 | P.PN ---
Subjective Progress Note Date: 02/02/23 Principal diagnosis: Urinary tract infection Patient is a 67-year-old female with a past medical history significant for hypertension hyperlipidemia COPD CVA TIA coronary disease atrial fibrillation patient presenting to the hospital for evaluation of generalized weakness and fatigue, patient did have some urinary symptoms positive UA fever concerning for symptomatic urinary tract infection On today's evaluation that is 02/02/2023, the patient remains to be afebrile , the patient is breathing comfortably on 3 L nasal cannula supplemental oxygen, the patient denies any chest pain and no significant cough or sputum production, patient denies abdominal pain and no nausea/vomiting or diarrhea White count is slightly down to 20,000 as of yesterday no CBC was done today creatinine is 1.56 abdominal bladder ultrasound with mild renal atrophy, chest x-ray with current megaly and mild pulmonary vascular congestion Objective - Vital Signs Vital signs: Vital Signs Temp 99.1 F 02/02/23 10:35 Pulse 128 H 02/02/23 07:52 Resp 16 02/02/23 07:30 BP 91/58 02/02/23 07:30 Pulse Ox 88 L 02/02/23 07:30 FiO2 Intake & Output 02/01/23 02/02/23 02/02/23 18:59 06:59 18:59 Intake Total 120 Output Total 900 Balance -900 120 Weight 42 kg 59 kg Intake: Oral 120 Output: Urine 900 Other: Voiding Method Toilet # Voids 3 1 - Exam GENERAL DESCRIPTION: An elderly female lying in bed in no distress RESPIRATORY SYSTEM: Unlabored breathing , clear to auscultation anteriorly HEART: S1 S2 regular rate and rhythm , ABDOMEN: Soft , no tenderness EXTREMITIES: No edema feet - Labs CBC & Chem 7: 02/01/23 07:30 02/02/23 06:15 Labs: Abnormal Lab Results - Last 24 Hours (Table) 02/01/23 02/02/23 Range/Units 07:30 06:15 WBC 20.56 H (4.50-10.00) X 10*3/uL RBC 3.92 L (4.10-5.20) X 10*6/uL MCV 101.5 H (80.0-97.0) FL MCHC 30.4 L (32.0-37.0) d/dL RDW 15.7 H (11.5-14.5) % Sodium 135 L (137-145) mmol/L BUN 37 H (7-17) mg/dL Creatinine 1.56 H (0.52-1.04) mg/dL Glucose 109 H (74-99) mg/dL Microbiology - Last 24 Hours (Table) 01/30/23 19:45 Urine Culture - Final Urine,Voided Klebsiella pneumoniae 01/30/23 22:00 Blood Culture - Preliminary Blood 01/30/23 21:45 Blood Culture - Preliminary Blood Assessment and Plan (1) Allergy to multiple antibiotics Current Visit: Yes Status: Acute Code(s): Z88.1 - ALLERGY STATUS TO OTHER ANTIBIOTIC AGENTS SNOMED Code(s): 918564264 (2) Urinary tract infection Current Visit: Yes Status: Acute Code(s): N39.0 - URINARY TRACT INFECTION, SITE NOT SPECIFIED SNOMED Code(s): 73957561 Plan: 1patient presented to hospital generalized weakness which is likely multifactorial did have elevated white count urinary symptoms and positive UA concerning for symptomatic urinary tract infection likely from enteric gram- negative pathogen patient also have elevated BUN/creatinine concern for possible obstructive uropathy and complicated UTI 2- ultrasound of the kidney and bladder area, with some renal atrophy no hydronephrosis 3Patient urine culture did grow Klebsiella that is sensitive to Rocephin, patient to continue Rocephin to 2 g daily with a plan to finish therapy with oral antibiotics Family the bedside questions were answered Dictation was produced using [employer] dictation software. please excuse any grammatical, word or spelling errors. Time with Patient: Less than 30
[2023-02-02] MEDS: SERTRALINE 100 MG TAB PO SCH (20:57)
[2023-02-02] MEDS: ATORVASTATIN 20 MG TAB PO SCH (20:57)
[2023-02-03] MEDS: methylPREDNISolone SOD SUCCI 125 MG/2 ML VIAL IV SCH ×4 (02:01→21:19)
[2023-02-03] MEDS: LEVOTHYROXINE 75 MCG TAB PO SCH (06:31)
[2023-02-03] MEDS: PANTOPRAZOLE 40 MG TABLET PO SCH (06:32)
[2023-02-03] MEDS: MIDODRINE 5 MG TAB PO SCH ×3 (06:32→17:01)
[2023-02-03] MEDS: IPRATROPIUM-ALBUTEROL 3 ML NEB INHALATION SCH ×3 (07:46→18:20)
[2023-02-03] MEDS: SYMBICORT 160-4.5 MCG INHALER INHALATION SCH ×2 (07:46→18:20)
[2023-02-03] MEDS ORDERED: FUROSEMIDE 10 MG/ML 4 ML VIAL IV SCH (09:00)
[2023-02-03] MEDS: ONDANSETRON 4 MG/2 ML VIAL IVP PRN ×2 (09:25→21:46)
[2023-02-03] MEDS: APIXABAN 2.5 MG TABLET PO SCH ×2 (10:09→21:19)
[2023-02-03] MEDS: GABAPENTIN 400 MG CAP PO SCH ×3 (10:09→21:19)
[2023-02-03] MEDS: MONTELUKAST 10 MG TAB PO SCH (10:09)
[2023-02-03] MEDS: allopurinoL 100 MG TAB PO SCH ×2 (10:09→21:19)
[2023-02-03] MEDS: AMIODARONE 100 MG TAB PO SCH (10:09)
[2023-02-03] MEDS: DAPAGLIFLOZIN PROPANEDIOL 10 MG TABLET PO SCH (10:09)
[2023-02-03] MEDS: HYDROcodone/APAP 5-325MG 1 EACH TAB PO PRN ×2 (10:49→17:03)
[2023-02-03 10:51] LABS: HCT 35.5 % (37.2-46.3); MCH 30.8 pg (27.0-32.0); MCV 99.4 FL (80.0-97.0); NRBC Per 100 WBC 0 X 10*3/uL (0.00-0.01); Platelet Count 180 X 10*3/uL (140-440); RBC 3.57 X 10*6/uL (4.10-5.20); RDW 15.1 % (11.5-14.5); WBC 22.31 X 10*3/uL (4.50-10.00)
[2023-02-03 11:34] LABS: BUN/Creat Ratio 21.14 Ratio (12.00-20.00); Blood Urea Nitrogen 46.5 mg/dL (9.0-27.0); Carbon Dioxide 22.4 mmol/L (21.6-31.8); Chloride 100 mmol/L (96-109); Glucose 129 mg/dL (70-110); Magnesium 2.4 mg/dL (1.5-2.4); Potassium 4.2 mmol/L (3.5-5.5); Sodium 139 mmol/L (135-145)
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
--- NOTE | 2023-02-03 12:10 | P.PN ---
Subjective Patient is seen in follow-up for acute kidney injury on chronic kidney disease. Renal function was today from diuresis. Denies chest pain or shortness of breath. Admits to good urine output. Vital signs are stable. General: No acute distress. HEENT: Head exam is unremarkable. On nasal cannula. LUNGS: No audible rhonchi or wheezes. HEART: Rate and Rhythm are regular. ABDOMEN: Nontender. EXTREMITITES: Trace edema. Objective - Vital Signs Vital signs: Vital Signs Temp 98.5 F 02/03/23 06:50 Pulse 106 H 02/03/23 07:58 Resp 16 02/03/23 06:50 BP 105/69 02/03/23 06:50 Pulse Ox 95 02/03/23 06:50 FiO2 Intake & Output 02/02/23 02/03/23 02/03/23 18:59 06:59 18:59 Intake Total 10 Output Total 750 Balance -740 Weight 63 kg Intake: IV 10 0.9 10 Output: Urine 750 Other: Voiding Method Diaper Diaper Bedside Commode Incontinent Incontinent Diaper External Catheter Incontinent # Voids 1 1 - Labs CBC & Chem 7: 02/03/23 06:18 02/03/23 06:18 Labs: Abnormal Lab Results - Last 24 Hours (Table) 02/02/23 02/03/23 02/03/23 Range/Units 14:50 06:18 06:18 WBC 22.31 H (4.50-10.00) X 10*3/uL RBC 3.57 L (4.10-5.20) X 10*6/uL Hgb 11.0 L (12.0-15.0) d/dL Hct 35.5 L (37.2-46.3) % MCV 99.4 H (80.0-97.0) FL MCHC 31.0 L (32.0-37.0) d/dL RDW 15.1 H (11.5-14.5) % Anion Gap 16.60 H (4.00-12.00) mmol/L BUN 46.5 H (9.0-27.0) mg/dL Creatinine 2.2 H (0.6-1.5) mg/dL Est GFR (CKD-EPI) 24 L (>=60) BUN/Creatinine Ratio 21.14 H (12.00-20.00) Ratio Glucose 129 H (70-110) mg/dL Procalcitonin 5.92 H (0.02-0.09) ng/mL Microbiology - Last 24 Hours (Table) 01/30/23 22:00 Blood Culture - Preliminary Blood 01/30/23 21:45 Blood Culture - Preliminary Blood Assessment and Plan Plan: Assessment: 1. Acute kidney injury secondary to ATN secondary to hypotension. Creatinine 2.3 on admission 01/30/2023 - improved to 1.55 and up to 2.2 today. No hydronephrosis noted on kidney ultrasound. Kidneys atrophic. 2. Chronic kidney disease stage IIIB with baseline creatinine near 2 secondary to nephrosclerosis. 3. Acute hypoxic respiratory failure. 4. Volume overload. 5. Acute on chronic diastolic CHF with moderate aortic regurgitation, mild mitral and tricuspid regurgitation. 6. Coronary artery disease with prior stenting. 7. Klebsiella UTI on antibiotics. 8. Chronic kidney disease mineral bone disease maintained on calcitriol. Plan: Change Lasix to 40 mg orally twice daily. Also on farxiga. Encourage oral intake. Avoid nephrotoxins. Continue to monitor renal function and urine output. Increase dose of midodrine. Hold for systolic blood pressure greater than 110. Check chest x-ray. Cortisol level will not be accurate. Patient's currently is on Medrol.
[2023-02-03 12:31] LABS: Basophils # (A) 0.06 X 10*3/uL (0.00-0.10); Basophils % (A) 0.3 %; Eosinophils # (A) 0.47 X 10*3/uL (0.04-0.35); Eosinophils % (A) 2.1 %; Lymphocytes # (A) 0.56 X 10*3/uL (0.90-5.00); Lymphocytes % (A) 2.5 %; Monocytes # (A) 0.24 X 10*3/uL (0.20-1.00); Monocytes % (A) 1.1 %; Neutrophils # (A) 20.87 X 10*3/uL (1.80-7.70); Neutrophils % (A) 93.5 %
[2023-02-03 13:00] VITALS: BMI 24.5
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
[2023-02-03] MEDS: LIDOCAINE 5% PATCH TOPICAL SCH (13:53)
[2023-02-03] MEDS: FUROSEMIDE 40 MG TAB PO SCH (17:00)
[2023-02-03] MEDS: SERTRALINE 100 MG TAB PO SCH (21:19)
[2023-02-03] MEDS: ATORVASTATIN 20 MG TAB PO SCH (21:19)
[2023-02-03] MEDS: HYDROcodone/APAP 7.5-325MG 1 EACH TAB PO PRN (23:30)
[2023-02-03] MEDS ORDERED: CALCIUM CARBONATE 500 MG CHEWABLE PO PRN (23:42)
[2023-02-04] MEDS: methylPREDNISolone SOD SUCCI 125 MG/2 ML VIAL IV SCH ×4 (02:23→20:39)
[2023-02-04] MEDS: LEVOTHYROXINE 75 MCG TAB PO SCH (05:33)
[2023-02-04] MEDS: MIDODRINE 5 MG TAB PO SCH ×3 (07:55→16:24)
[2023-02-04] MEDS: PANTOPRAZOLE 40 MG TABLET PO SCH (07:55)
[2023-02-04] MEDS: IPRATROPIUM-ALBUTEROL 3 ML NEB INHALATION SCH ×3 (08:12→19:32)
[2023-02-04] MEDS: SYMBICORT 160-4.5 MCG INHALER INHALATION SCH ×2 (08:12→19:27)
--- NOTE | 2023-02-04 08:29 | XR ---
EXAMINATION TYPE: XR chest 1V portable DATE OF EXAM: 02/04/2023 8:23 AM CLINICAL INDICATION:Female, 67 years old with history of CHF; [facility] COMPARISON: Chest radiographs from 02/01/2023 TECHNIQUE: XR chest 1V portable Frontal view of the chest. FINDINGS: Lungs/Pleura: There is no evidence of pleural effusion, focal consolidation, or pneumothorax. Pulmonary vascularity: Pulmonary vascular congestion. Heart/mediastinum: Cardiomediastinal silhouette is enlarged and stable. Musculoskeletal: No acute osseous pathology. IMPRESSION: Cardiomegaly and mild pulmonary vascular congestion. Correlate with BNP for congestive heart failure.
[2023-02-04] MEDS: HYDROcodone/APAP 7.5-325MG 1 EACH TAB PO PRN ×3 (08:58→21:22)
[2023-02-04 09:26] LABS: BUN/Creat Ratio 24.27 Ratio (12.00-20.00); Blood Urea Nitrogen 63.1 mg/dL (9.0-27.0); Carbon Dioxide 23.6 mmol/L (21.6-31.8); Chloride 95 mmol/L (96-109); Glucose 124 mg/dL (70-110); Magnesium 2.5 mg/dL (1.5-2.4); Potassium 4.1 mmol/L (3.5-5.5); Sodium 137 mmol/L (135-145)
[2023-02-04] MEDS: AMIODARONE 100 MG TAB PO SCH (10:05)
[2023-02-04] MEDS: APIXABAN 2.5 MG TABLET PO SCH ×2 (10:05→20:39)
[2023-02-04] MEDS: allopurinoL 100 MG TAB PO SCH ×2 (10:05→20:39)
[2023-02-04] MEDS: FUROSEMIDE 40 MG TAB PO SCH (10:06)
[2023-02-04] MEDS: DAPAGLIFLOZIN PROPANEDIOL 10 MG TABLET PO SCH (10:06)
[2023-02-04] MEDS: guaiFENesin 600 MG TABLET.ER PO SCH ×2 (10:07→20:38)
[2023-02-04] MEDS: GABAPENTIN 400 MG CAP PO SCH ×3 (10:07→21:22)
[2023-02-04] MEDS: LIDOCAINE 5% PATCH TOPICAL SCH (10:08)
[2023-02-04] MEDS: MONTELUKAST 10 MG TAB PO SCH (10:12)
[2023-02-04 10:23] LABS: Basophils # (A) 0.02 X 10*3/uL (0.00-0.10); Basophils % (A) 0.1 %; Eosinophils # (A) 0.01 X 10*3/uL (0.04-0.35); Eosinophils % (A) 0 %; HCT 31.1 % (37.2-46.3); HGB 9.8 d/dL (12.0-15.0); Lymphocytes # (A) 0.55 X 10*3/uL (0.90-5.00); Lymphocytes % (A) 2.5 %; MCH 30.9 pg (27.0-32.0); MCHC 31.5 d/dL (32.0-37.0); MCV 98.1 FL (80.0-97.0); Mean Platelet Volume 11.7 FL (9.5-12.2); Monocytes # (A) 0.35 X 10*3/uL (0.20-1.00); Monocytes % (A) 1.6 %; NRBC Per 100 WBC 0 X 10*3/uL (0.00-0.01); Neutrophils # (A) 21.18 X 10*3/uL (1.80-7.70); Platelet Count 189 X 10*3/uL (140-440); RBC 3.17 X 10*6/uL (4.10-5.20); RBC Morphology Normal (Normal); WBC 22.28 X 10*3/uL (4.50-10.00)
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
--- NOTE | 2023-02-04 12:03 | P.PN ---
Subjective Patient is seen in follow-up for acute kidney injury on chronic kidney disease. Renal function worsened with creatinine 2.6. On 2 L nasal cannula. Denies chest pain or shortness of breath. Admits to good urine output. Vital signs are stable. General: No acute distress. HEENT: Head exam is unremarkable. On nasal cannula. LUNGS: No audible rhonchi or wheezes. HEART: Rate and Rhythm are regular. ABDOMEN: Nontender. EXTREMITITES: Trace edema. Objective - Vital Signs Vital signs: Vital Signs Temp 97.7 F 02/04/23 09:00 Pulse 91 02/04/23 09:00 Resp 18 02/04/23 09:00 BP 112/63 02/04/23 09:00 Pulse Ox 99 02/04/23 09:00 FiO2 Intake & Output 02/03/23 02/04/23 02/04/23 18:59 06:59 18:59 Weight 63 kg 59 kg Other: Voiding Method Bedside Commode Bedside Commode Toilet Diaper Diaper Bedside Commode Incontinent Incontinent Diaper Incontinent # Voids 1 - Labs CBC & Chem 7: 02/04/23 03:48 02/04/23 03:48 Labs: Abnormal Lab Results - Last 24 Hours (Table) 02/03/23 02/04/23 02/04/23 Range/Units 06:18 03:48 03:48 WBC 22.28 H (4.50-10.00) X 10*3/uL RBC 3.17 L (4.10-5.20) X 10*6/uL Hgb 9.8 L (12.0-15.0) d/dL Hct 31.1 L (37.2-46.3) % MCV 98.1 H (80.0-97.0) FL MCHC 31.5 L (32.0-37.0) d/dL RDW 15.0 H (11.5-14.5) % Neutrophils # 20.87 H 21.18 H (1.80-7.70) X 10*3/uL Lymphocytes # 0.56 L 0.55 L (0.90-5.00) X 10*3/uL Eosinophils # 0.47 H 0.01 L (0.04-0.35) X 10*3/uL Chloride 95 L (96-109) mmol/L Anion Gap 18.40 H (4.00-12.00) mmol/L BUN 63.1 H (9.0-27.0) mg/dL Creatinine 2.6 H (0.6-1.5) mg/dL Est GFR (CKD-EPI) 20 L (>=60) BUN/Creatinine Ratio 24.27 H (12.00-20.00) Ratio Glucose 124 H (70-110) mg/dL Magnesium 2.5 H (1.5-2.4) mg/dL Microbiology - Last 24 Hours (Table) 01/30/23 22:00 Blood Culture - Preliminary Blood 01/30/23 21:45 Blood Culture - Preliminary Blood Assessment and Plan Plan: Assessment: 1. Acute kidney injury secondary to ATN secondary to hypotension. Creatinine 2.3 on admission 01/30/2023 - improved to 1.55 and up to 2.6 today. No hydronephrosis noted on kidney ultrasound. Kidneys atrophic. 2. Chronic kidney disease stage IIIB with baseline creatinine near 2 secondary to nephrosclerosis. 3. Acute hypoxic respiratory failure. 4. Volume overload. Improved with diuresis. 5. Acute on chronic diastolic CHF with moderate aortic regurgitation, mild mitral and tricuspid regurgitation. 6. Coronary artery disease with prior stenting. 7. Klebsiella UTI on antibiotics. 8. Chronic kidney disease mineral bone disease maintained on calcitriol. Plan: Decrease Lasix to 40 mg orally once daily. Also on farxiga. Encourage oral intake. Avoid nephrotoxins. Continue to monitor renal function and urine output. Maintain midodrine. Hold for systolic blood pressure greater than 110. Cortisol level will not be accurate. Patient's currently is on Solu-Medrol. Advised patient to maintain low salt diet and fluid restriction of less than 50 ounces per day. Also advised to monitor her weight closely at home and to notify physician if develops edema or gains more than 3 pounds in 1 week duration. Repeat BMP and magnesium level to 3 days postdischarge. Follow up outpatient in 1 week.
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
--- NOTE | 2023-02-04 15:03 | P.PN ---
Subjective Progress Note Date: 02/03/23 Principal diagnosis: Urinary tract infection Patient is a 67-year-old female with a past medical history significant for hypertension hyperlipidemia COPD CVA TIA coronary disease atrial fibrillation patient presenting to the hospital for evaluation of generalized weakness and fatigue, patient did have some urinary symptoms positive UA fever concerning for symptomatic urinary tract infection On today's evaluation that is 02/03/2023, the patient continues to be afebrile , the patient is breathing comfortably on 2 L nasal cannula oxygen, the patient denies any chest pain , has been complaining of some, but no sputum production, patient denies abdominal pain and no nausea/vomiting or diarrhea , no new symptoms White count is slightly up to 22.31 creatinine is 2.2 abdominal bladder ultrasound with mild renal atrophy, chest x-ray with current megaly and mild pulmonary vascular congestion Objective - Vital Signs Vital signs: Vital Signs Temp 98.5 F 02/03/23 06:50 Pulse 106 H 02/03/23 07:58 Resp 16 02/03/23 06:50 BP 105/69 02/03/23 06:50 Pulse Ox 95 02/03/23 06:50 FiO2 Intake & Output 02/02/23 02/03/23 02/03/23 18:59 06:59 18:59 Intake Total 10 Output Total 750 Balance -740 Weight 63 kg Intake: IV 10 0.9 10 Output: Urine 750 Other: Voiding Method Diaper Diaper Bedside Commode Incontinent Incontinent Diaper External Catheter Incontinent # Voids 1 1 - Exam GENERAL DESCRIPTION: An elderly female lying in bed in no distress RESPIRATORY SYSTEM: Unlabored breathing , clear to auscultation anteriorly HEART: S1 S2 regular rate and rhythm , ABDOMEN: Soft , no tenderness EXTREMITIES: No edema feet - Labs CBC & Chem 7: 02/04/23 03:48 02/04/23 03:48 Labs: Abnormal Lab Results - Last 24 Hours (Table) 02/02/23 02/03/23 02/03/23 Range/Units 14:50 06:18 06:18 WBC 22.31 H (4.50-10.00) X 10*3/uL RBC 3.57 L (4.10-5.20) X 10*6/uL Hgb 11.0 L (12.0-15.0) d/dL Hct 35.5 L (37.2-46.3) % MCV 99.4 H (80.0-97.0) FL MCHC 31.0 L (32.0-37.0) d/dL RDW 15.1 H (11.5-14.5) % Neutrophils # 20.87 H (1.80-7.70) X 10*3/uL Lymphocytes # 0.56 L (0.90-5.00) X 10*3/uL Eosinophils # 0.47 H (0.04-0.35) X 10*3/uL Anion Gap 16.60 H (4.00-12.00) mmol/L BUN 46.5 H (9.0-27.0) mg/dL Creatinine 2.2 H (0.6-1.5) mg/dL Est GFR (CKD-EPI) 24 L (>=60) BUN/Creatinine Ratio 21.14 H (12.00-20.00) Ratio Glucose 129 H (70-110) mg/dL Procalcitonin 5.92 H (0.02-0.09) ng/mL Microbiology - Last 24 Hours (Table) 01/30/23 22:00 Blood Culture - Preliminary Blood 01/30/23 21:45 Blood Culture - Preliminary Blood Assessment and Plan (1) Allergy to multiple antibiotics Current Visit: Yes Status: Acute Code(s): Z88.1 - ALLERGY STATUS TO OTHER ANTIBIOTIC AGENTS SNOMED Code(s): 354730274 (2) Urinary tract infection Current Visit: Yes Status: Acute Code(s): N39.0 - URINARY TRACT INFECTION, SITE NOT SPECIFIED SNOMED Code(s): 16309250 Plan: 1patient presented to hospital generalized weakness which is likely multifactorial did have elevated white count urinary symptoms and positive UA concerning for symptomatic urinary tract infection likely from enteric gram- negative pathogen patient also have elevated BUN/creatinine concern for possible obstructive uropathy and complicated UTI 2- ultrasound of the kidney and bladder area, with some renal atrophy no hydr onephrosis 3Patient urine culture did grow Klebsiella that is sensitive to Rocephin, patient to continue Rocephin to 2 g daily 4-leukocytosis more likely steroid related and will be monitored closely Dictation was produced using [employer] dictation software. please excuse any grammatical, word or spelling errors. Time with Patient: Less than 30
--- NOTE | 2023-02-04 15:04 | P.PN ---
Subjective Progress Note Date: 02/04/23 Principal diagnosis: Urinary tract infection Patient is a 67-year-old female with a past medical history significant for hypertension hyperlipidemia COPD CVA TIA coronary disease atrial fibrillation patient presenting to the hospital for evaluation of generalized weakness and fatigue, patient did have some urinary symptoms positive UA fever concerning for symptomatic urinary tract infection On today's evaluation that is 02/04/2023, the patient denies any fever or any chills , the patient is breathing comfortably on 2 L nasal cannula supplemental oxygen, the patient denies any chest pain , patient complaining of some congestion, but unable to bring up any sputum, patient denies abdominal pain and no nausea/vomiting or diarrhea , White count is 22.28 creatinine is 2.6, abdominal bladder ultrasound with mild renal atrophy, chest x-ray with current megaly and mild pulmonary vascular congestion Objective - Vital Signs Vital signs: Vital Signs Temp 97.9 F 02/04/23 12:26 Pulse 85 02/04/23 12:26 Resp 16 02/04/23 12:26 BP 109/67 02/04/23 12:26 Pulse Ox 97 02/04/23 12:26 FiO2 Intake & Output 02/03/23 02/04/23 02/04/23 18:59 06:59 18:59 Weight 63 kg 59 kg Other: Voiding Method Bedside Commode Bedside Commode Toilet Diaper Diaper Bedside Commode Incontinent Incontinent Diaper Incontinent # Voids 1 - Exam GENERAL DESCRIPTION: An elderly female lying in bed in no distress RESPIRATORY SYSTEM: Unlabored breathing , clear to auscultation anteriorly HEART: S1 S2 regular rate and rhythm , ABDOMEN: Soft , no tenderness EXTREMITIES: No edema feet - Labs CBC & Chem 7: 02/04/23 03:48 02/04/23 03:48 Labs: Abnormal Lab Results - Last 24 Hours (Table) 02/04/23 02/04/23 Range/Units 03:48 03:48 WBC 22.28 H (4.50-10.00) X 10*3/uL RBC 3.17 L (4.10-5.20) X 10*6/uL Hgb 9.8 L (12.0-15.0) d/dL Hct 31.1 L (37.2-46.3) % MCV 98.1 H (80.0-97.0) FL MCHC 31.5 L (32.0-37.0) d/dL RDW 15.0 H (11.5-14.5) % Neutrophils # 21.18 H (1.80-7.70) X 10*3/uL Lymphocytes # 0.55 L (0.90-5.00) X 10*3/uL Eosinophils # 0.01 L (0.04-0.35) X 10*3/uL Chloride 95 L (96-109) mmol/L Anion Gap 18.40 H (4.00-12.00) mmol/L BUN 63.1 H (9.0-27.0) mg/dL Creatinine 2.6 H (0.6-1.5) mg/dL Est GFR (CKD-EPI) 20 L (>=60) BUN/Creatinine Ratio 24.27 H (12.00-20.00) Ratio Glucose 124 H (70-110) mg/dL Magnesium 2.5 H (1.5-2.4) mg/dL Microbiology - Last 24 Hours (Table) 01/30/23 22:00 Blood Culture - Preliminary Blood 01/30/23 21:45 Blood Culture - Preliminary Blood Assessment and Plan (1) Allergy to multiple antibiotics Current Visit: Yes Status: Acute Code(s): Z88.1 - ALLERGY STATUS TO OTHER ANTIBIOTIC AGENTS SNOMED Code(s): 378690982 (2) Urinary tract infection Current Visit: Yes Status: Acute Code(s): N39.0 - URINARY TRACT INFECTION, SITE NOT SPECIFIED SNOMED Code(s): 49392776 Plan: 1patient presented to hospital generalized weakness which is likely multifactorial did have elevated white count urinary symptoms and positive UA concerning for symptomatic urinary tract infection likely from enteric gram- negative pathogen patient also have elevated BUN/creatinine concern for possible obstructive uropathy and complicated UTI 2- ultrasound of the kidney and bladder area, with some renal atrophy no hydronephrosis 3Patient urine culture did grow Klebsiella that is sensitive to Rocephin, patient to continue Rocephin to 2 g daily with a plan to transition to oral antibiotics on discharge 4-leukocytosis more likely steroid related has no evidence of any worsening clinical condition or infection and will monitor closely Dictation was produced using [employer] dictation software. please excuse any gr ammatical, word or spelling errors. Time with Patient: Less than 30
[2023-02-04] MEDS: ATORVASTATIN 20 MG TAB PO SCH (20:38)
[2023-02-04] MEDS: SERTRALINE 100 MG TAB PO SCH (20:38)
[2023-02-05] MEDS: methylPREDNISolone SOD SUCCI 125 MG/2 ML VIAL IV SCH ×2 (01:46→08:36)
[2023-02-05] MEDS: LEVOTHYROXINE 75 MCG TAB PO SCH (05:47)
[2023-02-05] MEDS: MONTELUKAST 10 MG TAB PO SCH (08:36)
[2023-02-05] MEDS: allopurinoL 100 MG TAB PO SCH ×2 (08:36→20:43)
[2023-02-05] MEDS: GABAPENTIN 400 MG CAP PO SCH (08:36)
[2023-02-05] MEDS: MIDODRINE 5 MG TAB PO SCH ×4 (08:36→17:57)
[2023-02-05] MEDS: PANTOPRAZOLE 40 MG TABLET PO SCH (08:36)
[2023-02-05] MEDS: guaiFENesin 600 MG TABLET.ER PO SCH ×2 (08:36→20:43)
[2023-02-05] MEDS: APIXABAN 2.5 MG TABLET PO SCH ×2 (08:36→20:44)
[2023-02-05] MEDS: DAPAGLIFLOZIN PROPANEDIOL 10 MG TABLET PO SCH (08:36)
[2023-02-05] MEDS: AMIODARONE 100 MG TAB PO SCH (08:36)
[2023-02-05] MEDS: FUROSEMIDE 40 MG TAB PO SCH (08:37)
[2023-02-05] MEDS: LIDOCAINE 5% PATCH TOPICAL SCH (08:38)
[2023-02-05 08:43] LABS: BUN/Creat Ratio 25.07 Ratio (12.00-20.00); Blood Urea Nitrogen 72.7 mg/dL (9.0-27.0); Carbon Dioxide 25.7 mmol/L (21.6-31.8); Chloride 98 mmol/L (96-109); Glucose 163 mg/dL (70-110); Magnesium 2.5 mg/dL (1.5-2.4); Potassium 3.9 mmol/L (3.5-5.5); Sodium 137 mmol/L (135-145)
[2023-02-05] MEDS: SYMBICORT 160-4.5 MCG INHALER INHALATION SCH ×2 (09:26→20:03)
[2023-02-05] MEDS: IPRATROPIUM-ALBUTEROL 3 ML NEB INHALATION SCH ×3 (09:26→20:03)
--- NOTE | 2023-02-05 10:32 | CDI ---
Documentation Clarification Form Date: 02/05/2023 10:18:29 AM From: Diane Valdez RN, CCDS Email: [email or web address] Admit Date: 01/30/2023 09:51:00 PM Patient Name: Madina Nick Visit Number: [id number] Discharge Date: ATTENTION: The Clinical Documentation Specialists (CDI) and [facility] Coding Staff appreciate your assistance in clarifying documentation. Please respond to the clarification below the line at the bottom and electronically sign. The CDI & [facility] Coding staff will review the response and follow-up if needed. Please note: Queries are made part of the Legal Health Record. If you have any questions, please contact the author of this message via ITS. Dr. Berenice Hilario The patient has a UTI, developed a fever and has leukocytosis. Based on this information and the findings below, is there an additional diagnosis that is clinically appropriate for this patient? History/Risk Factors: A fib on Eliquis, COPD, CHF, CKD, UTI, asthma, CAD, DVT, GERD, HLD, DVT, thyroid disorder, anxiety, bipolar, depression, chronic pain and frequent admissions for UTI. Presented with weakness and fatigue. Admitted with recurrent UTI and BEHZAD on CKD. Clinical Indicators: 01/31 Pulmonary consult: "Generalized weakness, likely secondary infection/UTI/sepsis." 02/02 Pulmonary: "Generalized weakness, secondary to Klebsiella pneumoniae urinary tract infection. Febrile illness secondary to above." 02/02 Cardiology: "Acute urinary tract infection and sepsis." 02/04 IM: Significant leukocytosis. 01/30-02/02 WBC: 33.3-22.4-20.56 01/30-02/02 Cr: 2.31-1.55 01/30 Urine culture: klebsiella pneumoniae 01/30 UA: cloudy, small blood, larger leukocyte esterase, 100 WBC, many bacteria Vitals signs: 01/30-02/02 Temp 97.9-100.6-99.1-98.1-102.5-102.3-98.4 01/31 BP 86/50 02/02 HR 128 02/02 Procalcitonin: 5.92 Treatment: 01/31 ID Consult: "elevated white count urinary symptoms and positive UA concerning for symptomatic urinary tract infection likely from enteric gram- negative pathogen." Antibiotics: IV Rocephin 1gm x1 on 01/30 then Q24H on 01/31 then 2gm Q24H 02/01- current. IV Bolus: 2L 0.9 NS IV bolus on 01/30 then 100mL/hr Is there an additional diagnosis that is clinically appropriate for this patient? [x] Sepsis, developed during stay, not present on admission [ ] Other, please specify [ ] Unable to determine SIRS Criteria: 2 or more of the following may indicate SIRS Temperature < 96.8F (36C) or > 101.0F (38.3C) Heart Rate > 90 bpm Respiratory Rate > 20 breaths/min or PaCO2 < 32 mmHg White Blood Cell Count > 12,000 or < 4,000 cells/mm3 or > 10% bands MTDD
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
[2023-02-05] MEDS: HYDROcodone/APAP 7.5-325MG 1 EACH TAB PO PRN ×2 (11:12→20:46)
--- NOTE | 2023-02-05 11:54 | P.PN ---
Subjective Patient is seen in follow-up for acute kidney injury on chronic kidney disease. Renal function worsening. Creatinine 2.9 today. On 2 L nasal cannula. Denies chest pain or shortness of breath. Admits to good urine output. Vital signs are stable. General: No acute distress. HEENT: Head exam is unremarkable. On nasal cannula. LUNGS: No audible rhonchi or wheezes. HEART: Rate and Rhythm are regular. ABDOMEN: Nontender. EXTREMITITES: Trace edema. Objective - Vital Signs Vital signs: Vital Signs Temp 98.2 F 02/05/23 07:50 Pulse 110 H 02/05/23 09:39 Resp 14 02/05/23 02:46 BP 132/74 02/05/23 07:50 Pulse Ox 95 02/05/23 09:30 FiO2 Intake & Output 02/04/23 02/05/23 02/05/23 18:59 06:59 18:59 Intake Total 600 Output Total 800 Balance -200 Weight 80.4 kg Intake: Oral 600 Output: Urine 800 Other: Voiding Method Toilet Toilet Bedside Commode Bedside Commode Diaper Diaper Incontinent Incontinent - Labs CBC & Chem 7: 02/04/23 03:48 02/05/23 04:07 Labs: Abnormal Lab Results - Last 24 Hours (Table) 02/05/23 Range/Units 04:07 Anion Gap 13.30 H (4.00-12.00) mmol/L BUN 72.7 H (9.0-27.0) mg/dL Creatinine 2.9 H (0.6-1.5) mg/dL Est GFR (CKD-EPI) 17 L (>=60) BUN/Creatinine Ratio 25.07 H (12.00-20.00) Ratio Glucose 163 H (70-110) mg/dL Magnesium 2.5 H (1.5-2.4) mg/dL Assessment and Plan Plan: Assessment: 1. Acute kidney injury secondary to ATN secondary to hypotension. Creatinine 2.3 on admission 01/30/2023 - improved to 1.55 and up to 2.9 today. No hydronephrosis noted on kidney ultrasound. Kidneys atrophic. 2. Chronic kidney disease stage IIIB with baseline creatinine near 2 secondary to nephrosclerosis. 3. Acute hypoxic respiratory failure. 4. Volume overload. Improved with diuresis. 5. Acute on chronic diastolic CHF with moderate aortic regurgitation, mild mitral and tricuspid regurgitation. 6. Coronary artery disease with prior stenting. 7. Klebsiella UTI on antibiotics. 8. Chronic kidney disease mineral bone disease maintained on calcitriol. Plan: Maintain oral Lasix. Also on farxiga - decrease dose to 5 mg. Encourage oral intake. Avoid nephrotoxins. Continue to monitor renal function and urine output. Maintain midodrine. Hold for systolic blood pressure greater than 110. Cortisol level will not be accurate. Patient's currently on Solu-Medrol. Advised patient to maintain low salt diet and fluid restriction of less than 50 ounces per day. Also advised to monitor her weight closely at home and to notify physician if develops edema or gains more than 3 pounds in 1 week duration. Repeat BMP and magnesium level to 3 days postdischarge. Follow up outpatient in 1 week.
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
[2023-02-05] MEDS: METOPROLOL TARTRATE 12.5 MG TAB PO SCH ×2 (13:04→20:43)
[2023-02-05] MEDS: GABAPENTIN 100 MG CAP PO SCH ×2 (16:14→21:57)
[2023-02-05] MEDS: ATORVASTATIN 20 MG TAB PO SCH (20:43)
[2023-02-05] MEDS: methylPREDNISolone SOD SUCCI 40 MG/ML 1 ML VIAL IV SCH (20:44)
[2023-02-05] MEDS: SERTRALINE 100 MG TAB PO SCH (21:57)
[2023-02-06] MEDS: LEVOTHYROXINE 75 MCG TAB PO SCH (06:55)
[2023-02-06 07:15] LABS: African American GFR (CKD) 20 (>60 ml/min/1.73 sqM); Anion Gap 15 mmol/L; Blood Urea Nitrogen 87 mg/dL (7-17); Calcium 9.4 mg/dL (8.4-10.2); Carbon Dioxide 24 mmol/L (22-30); Chloride 98 mmol/L (98-107); Glucose 114 mg/dL (74-99); Magnesium 2.6 mg/dL (1.6-2.3); Non-African American GFR(CKD) 17 (>60 ml/min/1.73 sqM); Potassium 4.3 mmol/L (3.5-5.1); Sodium 137 mmol/L (137-145)
[2023-02-06 07:34] VITALS: RESP 18; TEMP 98
--- NOTE | 2023-02-06 07:35 | XR ---
EXAMINATION TYPE: XR chest 1V DATE OF EXAM: 02/06/2023 6:58 AM CLINICAL INDICATION:Female, 67 years old with history of pulm edema; [facility] COMPARISON: 02/04/2023 and before TECHNIQUE: XR chest 1V Frontal view of the chest. FINDINGS: Lines/Tubes/Devices: None. Heart/mediastinum: Cardiac silhouette is mildly to moderately enlarged, stable. Pulmonary vascularity: Pulmonary vascular congestion, similar to previous. Lungs/Pleura: Similar increased interstitial markings bilaterally, likely edema. There is no evidence of large pleural effusion, focal consolidation, or pneumothorax. Small pleural effusions cannot be ruled out. Musculoskeletal: No evidence of an acute bony abnormality. Other findings: None significant. IMPRESSION: Cardiomegaly with mild vascular congestion and edema, similar to prior. Correlate for CHF.
[2023-02-06] MEDS: MONTELUKAST 10 MG TAB PO SCH (08:44)
[2023-02-06] MEDS: PANTOPRAZOLE 40 MG TABLET PO SCH (08:44)
[2023-02-06] MEDS: FUROSEMIDE 40 MG TAB PO SCH (08:44)
[2023-02-06] MEDS: AMIODARONE 100 MG TAB PO SCH (08:44)
[2023-02-06] MEDS: allopurinoL 100 MG TAB PO SCH (08:44)
[2023-02-06] MEDS: MIDODRINE 5 MG TAB PO SCH ×2 (08:44→12:37)
[2023-02-06] MEDS: GABAPENTIN 100 MG CAP PO SCH (08:44)
[2023-02-06] MEDS: METOPROLOL TARTRATE 12.5 MG TAB PO SCH (08:44)
[2023-02-06] MEDS: guaiFENesin 600 MG TABLET.ER PO SCH (08:44)
[2023-02-06] MEDS: APIXABAN 2.5 MG TABLET PO SCH (08:44)
[2023-02-06] MEDS: LIDOCAINE 5% PATCH TOPICAL SCH ×2 (08:45→08:54)
[2023-02-06] MEDS: methylPREDNISolone SOD SUCCI 40 MG/ML 1 ML VIAL IV SCH (08:55)
[2023-02-06] MEDS ORDERED: DAPAGLIFLOZIN PROPANEDIOL 5 MG TABLET PO SCH (09:00)
[2023-02-06] MEDS: IPRATROPIUM-ALBUTEROL 3 ML NEB INHALATION SCH ×2 (09:06→12:14)
[2023-02-06] MEDS: SYMBICORT 160-4.5 MCG INHALER INHALATION SCH (09:06)
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
--- NOTE | 2023-02-06 11:53 | P.PN ---
Subjective Patient is seen in follow-up for acute kidney injury on chronic kidney disease. Renal function stable. On 2 L nasal cannula. Denies chest pain or shortness of breath. Admits to good urine output. Vital signs are stable. General: No acute distress. HEENT: Head exam is unremarkable. On nasal cannula. LUNGS: No audible rhonchi or wheezes. HEART: Rate and Rhythm are regular. ABDOMEN: Nontender. EXTREMITITES: Trace edema. Objective - Vital Signs Vital signs: Vital Signs Temp 98 F 02/06/23 07:18 Pulse 110 H 02/06/23 07:18 Resp 18 02/06/23 07:18 BP 109/73 02/06/23 07:18 Pulse Ox 95 02/06/23 07:18 FiO2 Intake & Output 02/05/23 02/06/23 02/06/23 18:59 06:59 18:59 Intake Total 118 Balance 118 Weight 80.8 kg Intake: Oral 118 Other: Voiding Method Toilet Toilet Bedside Commode Bedside Commode Diaper Diaper Incontinent Incontinent # Voids 1 - Labs CBC & Chem 7: 02/04/23 03:48 02/06/23 06:07 Labs: Abnormal Lab Results - Last 24 Hours (Table) 02/06/23 Range/Units 06:07 BUN 87 H (7-17) mg/dL Creatinine 2.76 H (0.52-1.04) mg/dL Glucose 114 H (74-99) mg/dL Magnesium 2.6 H (1.6-2.3) mg/dL Microbiology - Last 24 Hours (Table) 01/30/23 22:00 Blood Culture - Final Blood 01/30/23 21:45 Blood Culture - Final Blood Assessment and Plan Plan: Assessment: 1. Acute kidney injury secondary to ATN secondary to hypotension. Creatinine 2.3 on admission 01/30/2023 - improved to 1.55 and peaked at 2.9 dated 02/05/2023 - 2.76 today. No hydronephrosis noted on kidney ultrasound. Kidneys atrophic. 2. Chronic kidney disease stage IIIB with baseline creatinine near 2 secondary to nephrosclerosis. 3. Acute hypoxic respiratory failure. 4. Volume overload. Improved with diuresis. 5. Acute on chronic diastolic CHF with moderate aortic regurgitation, mild mitral and tricuspid regurgitation. 6. Coronary artery disease with prior stenting. 7. Klebsiella UTI on antibiotics. 8. Chronic kidney disease mineral bone disease maintained on calcitriol. Plan: Maintain oral Lasix. Also on farxiga. Encourage oral intake. Avoid nephrotoxins. Continue to monitor renal function and urine output. Maintain midodrine. Hold for systolic blood pressure greater than 110. Cortisol level will not be accurate. Patient's currently on Solu-Medrol. Advised patient to maintain low salt diet and fluid restriction of less than 50 ounces per day. Also advised to monitor her weight closely at home and to notify physician if develops edema or gains more than 3 pounds in 1 week duration. Repeat BMP and magnesium level to 3 days postdischarge. Follow up outpatient in 1 week.
--- NOTE | 2023-02-06 12:14 | XR ---
EXAMINATION TYPE: XR foot complete LT DATE OF EXAM: 02/06/2023 11:52 AM CLINICAL INDICATION:Female, 67 years old with history of Rule out fracture; COMPARISON: No recent priors. TECHNIQUE: XR foot complete LT examined in the AP, oblique, and lateral projections. FINDINGS: No evidence of any acute osseous pathology. Mild soft tissue swelling over the dorsal foot. Joints a re preserved. Multifocal degeneration changes with joint space narrowing and osteophytes. Calcaneal p lantar spurring is present. The IMPRESSION: 1. Mild soft tissue swelling over the dorsal foot without evidence of acute fracture. 2. Multifocal osteoporosis.
[2023-02-06] MEDS: HYDROcodone/APAP 7.5-325MG 1 EACH TAB PO PRN (12:32)
[2023-02-06 14:23] VITALS: BP 102/62; PULSE 104
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
== END 2023-02-06 15:35 | disposition home health service (06) | DRG 689 ==
LOC: EC 16:17 → 5NMEDONC 21:51
PROVIDERS: ADMIT Internal Medicine; ATTEND Internal Medicine
DX: N39.0 Urinary tract infection, site not specified (principal); A41.50 Gram-negative sepsis, unspecified; N17.0 Acute kidney failure with tubular necrosis; I50.43 Acute on chronic combined systolic (congestive) and diastolic (congestive) heart failure; J96.21 Acute and chronic respiratory failure with hypoxia; R65.20 Severe sepsis without septic shock; I13.0 Hypertensive heart and chronic kidney disease with heart failure and stage 1 through stage 4 chronic kidney disease, or unspecified chronic kidney disease; J96.12 Chronic respiratory failure with hypercapnia; F03.93 Unspecified dementia, unspecified severity, with mood disturbance; R47.01 Aphasia; Z16.21 Resistance to vancomycin; Z16.24 Resistance to multiple antibiotics; B96.1 Klebsiella pneumoniae [K. pneumoniae] as the cause of diseases classified elsewhere; Z20.822 Contact with and (suspected) exposure to COVID-19; Z28.310 Unvaccinated for COVID-19; N18.32 Chronic kidney disease, stage 3b; Z87.891 Personal history of nicotine dependence; E78.5 Hyperlipidemia, unspecified; J44.9 Chronic obstructive pulmonary disease, unspecified; Z99.81 Dependence on supplemental oxygen; K21.9 Gastro-esophageal reflux disease without esophagitis; F41.9 Anxiety disorder, unspecified; F31.9 Bipolar disorder, unspecified; I27.81 Cor pulmonale (chronic); I48.0 Paroxysmal atrial fibrillation; Z79.01 Long term (current) use of anticoagulants; R41.3 Other amnesia; S06.89AS Other specified intracranial injury with loss of consciousness status unknown, sequela; E03.9 Hypothyroidism, unspecified; G89.29 Other chronic pain; I08.0 Rheumatic disorders of both mitral and aortic valves; K44.9 Diaphragmatic hernia without obstruction or gangrene; I25.10 Atherosclerotic heart disease of native coronary artery without angina pectoris; M89.8X9 Other specified disorders of bone, unspecified site; Z79.51 Long term (current) use of inhaled steroids; Z79.890 Hormone replacement therapy; Z79.899 Other long term (current) drug therapy; Z82.49 Family history of ischemic heart disease and other diseases of the circulatory system; Z86.14 Personal history of Methicillin resistant Staphylococcus aureus infection; Z86.19 Personal history of other infectious and parasitic diseases; Z86.711 Personal history of pulmonary embolism; Z86.718 Personal history of other venous thrombosis and embolism; Z87.440 Personal history of urinary (tract) infections; Z87.828 Personal history of other (healed) physical injury and trauma; Z95.5 Presence of coronary angioplasty implant and graft; Z88.1 Allergy status to other antibiotic agents; Z88.2 Allergy status to sulfonamides; Z88.8 Allergy status to other drugs, medicaments and biological substances; V89.2XXS Person injured in unspecified motor-vehicle accident, traffic, sequela
CPT/HCPCS: 36415; 71045; 71046; 76770; 80048; 80053; 81001; 82803; 83605; 83735; 83880; 84100; 84145; 84443; 84484; 85025; 85027; 85610; 85730; 87040; 87077; 87086; 87186; 87636; 93005; 93306; 94640; 94667; 94760; 96361; 96365; 96366; 96375; 99285

== ENCOUNTER 2023-02-07 12:53 | Emergency (ER) | payer MEDICARE, OTHER ==
[2023-02-07 13:17] VITALS: RESP 18
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
[2023-02-07 14:30] LABS: Basophils % (A) 0 %; Eosinophils # (A) 0.1 k/uL (0-0.7); Eosinophils % (A) 1 %; HCT 36.8 % (34.0-46.0); HGB 11.9 gm/dL (11.4-16.0); Lymphocytes # (A) 1.3 k/uL (1.0-4.8); Lymphocytes % (A) 8 %; MCH 31.6 pg (25.0-35.0); MCHC 32.4 g/dL (31.0-37.0); MCV 97.4 fL (80.0-100.0); Mean Platelet Volume 8.3; Monocytes # (A) 0.3 k/uL (0-1.0); Monocytes % (A) 2 %; Neutrophils # (A) 14.6 k/uL (1.3-7.7); Neutrophils % (A) 89 %; Platelet Count 236 k/uL (150-450); RBC 3.78 m/uL (3.80-5.40); RDW 14.8 % (11.5-15.5); WBC 16.4 k/uL (3.8-10.6)
[2023-02-07 14:38] LABS: ALT 29 U/L (4-34); AST 26 U/L (14-36); African American GFR (CKD) 19 (>60 ml/min/1.73 sqM); Albumin 3.8 g/dL (3.5-5.0); Alkaline Phosphatase 163 U/L (38-126); Anion Gap 13 mmol/L; Blood Urea Nitrogen 85 mg/dL (7-17); Calcium 8.8 mg/dL (8.4-10.2); Carbon Dioxide 25 mmol/L (22-30); Chloride 102 mmol/L (98-107); Glucose 95 mg/dL (74-99); Magnesium 2.6 mg/dL (1.6-2.3); Non-African American GFR(CKD) 17 (>60 ml/min/1.73 sqM); Potassium 3.5 mmol/L (3.5-5.1); Sodium 140 mmol/L (137-145); Total Bilirubin 0.5 mg/dL (0.2-1.3); Total Protein 7.3 g/dL (6.3-8.2)
[2023-02-07 14:45] LABS: Prothrombin Time 10.7 sec (10.0-12.5)
[2023-02-07 14:46] LABS: Partial Thromboplastin Time 22.3 sec (22.0-30.0)
[2023-02-07 14:47] LABS: NT-Pro-B-Type Natriuretic Pept 23700 pg/mL
--- NOTE | 2023-02-07 15:09 | XR ---
EXAMINATION TYPE: XR chest 2V DATE OF EXAM: 02/07/2023 COMPARISON: 01/30/2023 HISTORY: Chest pain TECHNIQUE: Frontal and lateral views of the chest are obtained. FINDINGS: There is marked cardiomegaly and moderate pulmonary vascular congestion. There is a small focal opaci ty in the right upper lobe which could represent focal edema or pneumonia. There is no pneumothorax or large pleural effusion. The osseous structures are intact IMPRESSION: Acute cardiopulmonary disease as described above. The findings are most consistent with CHF although developing right upper lobe pneumonia is not excluded. Short-term follow-up is recommend ed.
[2023-02-07] MEDS ORDERED: FUROSEMIDE 10 MG/ML 4 ML VIAL IV STA (15:18)
[2023-02-07 16:25] VITALS: BP 109/75; PULSE 108; TEMP 97.8
== END 2023-02-07 16:55 | disposition home or self-care (01) ==
LOC: EC 12:53
DX: I13.0 Hypertensive heart and chronic kidney disease with heart failure and stage 1 through stage 4 chronic kidney disease, or unspecified chronic kidney disease (principal); I50.9 Heart failure, unspecified; N18.32 Chronic kidney disease, stage 3b; I48.0 Paroxysmal atrial fibrillation; K21.9 Gastro-esophageal reflux disease without esophagitis; J44.89 Other specified chronic obstructive pulmonary disease; I25.10 Atherosclerotic heart disease of native coronary artery without angina pectoris; E78.5 Hyperlipidemia, unspecified; F41.9 Anxiety disorder, unspecified; F31.9 Bipolar disorder, unspecified; Z87.891 Personal history of nicotine dependence; Z20.822 Contact with and (suspected) exposure to COVID-19; Z79.899 Other long term (current) drug therapy; Z79.01 Long term (current) use of anticoagulants; Z88.2 Allergy status to sulfonamides; Z88.8 Allergy status to other drugs, medicaments and biological substances; Z88.1 Allergy status to other antibiotic agents
CPT/HCPCS: 36415; 93005; 83880; 80053; 83735; 84484; 85025; 85610; 85730; 87040; 87635; 71046; 99285; 96374; J1940

== ENCOUNTER 2023-02-08 17:48 | Inpatient (IN) | payer MEDICARE, OTHER ==
[2023-02-08] MEDS ORDERED: FUROSEMIDE 10 MG/ML 4 ML VIAL IV STA (18:15)
[2023-02-08 18:46] LABS: Basophils % (A) 0 %; Eosinophils # (A) 0.5 k/uL (0-0.7); Eosinophils % (A) 3 %; HCT 41.2 % (34.0-46.0); Lymphocytes # (A) 1.1 k/uL (1.0-4.8); Lymphocytes % (A) 7 %; MCH 30.8 pg (25.0-35.0); MCHC 31.5 g/dL (31.0-37.0); MCV 97.7 fL (80.0-100.0); Monocytes # (A) 0.4 k/uL (0-1.0); Monocytes % (A) 2 %; Neutrophils # (A) 14.6 k/uL (1.3-7.7); Neutrophils % (A) 88 %; Platelet Count 196 k/uL (150-450); RBC 4.22 m/uL (3.80-5.40); WBC 16.6 k/uL (3.8-10.6)
[2023-02-08 18:52] LABS: Partial Thromboplastin Time 22.4 sec (22.0-30.0); Prothrombin Time 10.6 sec (10.0-12.5)
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
[2023-02-08] MEDS: ASPIRIN-ACET-CAFF 250-250-65MG 1 EACH TAB PO PRN (19:01)
[2023-02-08 19:06] LABS: ALT 28 U/L (4-34); AST 23 U/L (14-36); African American GFR (CKD) 24 (>60 ml/min/1.73 sqM); Albumin 3.8 g/dL (3.5-5.0); Alkaline Phosphatase 172 U/L (38-126); Anion Gap 12 mmol/L; Blood Urea Nitrogen 74 mg/dL (7-17); Calcium 8.8 mg/dL (8.4-10.2); Carbon Dioxide 29 mmol/L (22-30); Chloride 96 mmol/L (98-107); Glucose 120 mg/dL (74-99); Magnesium 2.4 mg/dL (1.6-2.3); Non-African American GFR(CKD) 20 (>60 ml/min/1.73 sqM); Potassium 3.5 mmol/L (3.5-5.1); Sodium 137 mmol/L (137-145); Total Bilirubin 0.5 mg/dL (0.2-1.3); Total Protein 7.6 g/dL (6.3-8.2)
[2023-02-08 19:12] LABS: NT-Pro-B-Type Natriuretic Pept 8590 pg/mL
[2023-02-08] MEDS: FUROSEMIDE 10 MG/ML 4 ML VIAL IV SCH (20:15)
--- NOTE | 2023-02-08 20:25 | XR ---
EXAMINATION TYPE: XR chest 2V DATE OF EXAM: 02/08/2023 COMPARISON: 02/07/2023 INDICATION: Difficulty breathing TECHNIQUE: Frontal and lateral views of the chest are obtained. FINDINGS: The heart size is enlarged. The pulmonary vasculature is prominent. There is scattered increased lung markings diffusely. On the lateral projection some increased lung m arkings are in the posterior lung base. Correlate for atypical pulmonary edema or pneumonia.. IMPRESSION: 1. Clinical correlation for congestive heart failure. Differential diagnosis could include a posterio r pneumonia. Follow up exams are recommended.
[2023-02-08] MEDS: NITROGLYCERIN OINT 1 INCH/GM PACKET TOPICAL SCH (23:57)
[2023-02-09] MEDS ORDERED: IPRATROPIUM-ALBUTEROL 3 ML NEB INHALATION PRN (00:55)
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
[2023-02-09] MEDS ORDERED: traZODone HCL 100 MG TAB PO PRN (01:30)
[2023-02-09] MEDS: methylPREDNISolone SOD SUCCI 125 MG/2 ML VIAL IV SCH ×4 (01:41→20:39)
[2023-02-09] MEDS: LEVOTHYROXINE 75 MCG TAB PO SCH (06:43)
[2023-02-09] MEDS: NITROGLYCERIN OINT 1 INCH/GM PACKET TOPICAL SCH ×3 (06:45→18:03)
[2023-02-09] MEDS: IPRATROPIUM-ALBUTEROL 3 ML NEB INHALATION SCH ×4 (08:01→20:05)
[2023-02-09] MEDS: SYMBICORT 160-4.5 MCG INHALER INHALATION SCH ×2 (08:01→20:04)
[2023-02-09] MEDS: CEFDINIR 300 MG CAP PO SCH ×2 (08:47→20:59)
[2023-02-09] MEDS ORDERED: NITROGLYCERIN SL TABS 0.4 MG TAB SUBLINGUAL PRN (08:47)
[2023-02-09] MEDS: MONTELUKAST 10 MG TAB PO SCH (08:50)
[2023-02-09] MEDS: APIXABAN 2.5 MG TABLET PO SCH ×2 (08:50→20:38)
[2023-02-09] MEDS: METOPROLOL TARTRATE 25 MG TAB PO SCH ×2 (08:50→20:46)
[2023-02-09] MEDS: GABAPENTIN 100 MG CAP PO SCH ×2 (08:50→16:17)
[2023-02-09] MEDS: MIDODRINE 5 MG TAB PO SCH ×3 (08:50→18:03)
[2023-02-09] MEDS: FUROSEMIDE 10 MG/ML 4 ML VIAL IV SCH ×2 (08:52→19:24)
[2023-02-09] MEDS ORDERED: METOPROLOL TARTRATE 12.5 MG TAB PO SCH (09:00)
[2023-02-09] MEDS: AMIODARONE 100 MG TAB PO SCH (09:26)
[2023-02-09] MEDS: DAPAGLIFLOZIN PROPANEDIOL 5 MG TABLET PO SCH (09:26)
[2023-02-09] MEDS: allopurinoL 100 MG TAB PO SCH ×2 (09:26→20:38)
--- NOTE | 2023-02-09 10:06 | CONS ---
CONSULTATION HISTORY OF PRESENT ILLNESS: Madina is a 67-year-old lady with history of chronic respiratory failure, chronic diastolic heart failure, paroxysmal atrial fibrillation, COPD, recurrent UTIs, and memory impairment, secondary to closed head injury, who presents to hospital complaining of shortness of breath and generalized weakness. Cardiology had been consulted for heart failure. She also has chronic cough and mild leg edema. Her initial EKG revealed atrial fibrillation with poorly controlled ventricular rate and nonspecific ST-T wave changes. BNP is elevated at 8590. BUN and creatinine are elevated at 74 and 2.4. Her chest x-ray showed changes suggestive of congestive heart failure. The patient's clinical presentation is consistent with acute exacerbation of chronic diastolic heart failure. The patient was in the hospital at the end of last month with shortness of breath. She has known coronary artery disease and had angioplasty of right coronary artery in the past. Recent echocardiogram revealed moderate mitral regurgitation. Normal LV systolic function with mild aortic stenosis. Her renal functions have been abnormal, and at her last visit, her BUN was around 60, and on this admission, she is at 74. She is currently on nebulizers, Eliquis for anticoagulation, Lasix, and nitroglycerin paste. PAST MEDICAL HISTORY: Significant for, 1. COPD, on home O2. 2. Chronic diastolic heart failure. 3. Paroxysmal atrial fibrillation. 4. Hypertension. 5. Dyslipidemia. 6. Hypothyroidism. MEDICATIONS: Medications at home included: 1. Eliquis 2.5 b.i.d. 2. Cordarone 100 daily. 3. Neurontin. 4. Flexeril. 5. Lipitor. 6. Ventolin. 7. Singulair. 8. Synthroid. 9. Desyrel. 10.Zyloprim. 11.Zoloft. ALLERGIES: To Macrobid, sulfa, tetracycline. FAMILY HISTORY: Not able to obtain from the patient. SOCIAL HISTORY: She denies current smoking, EtOH abuse, or drug abuse. REVIEW OF SYSTEMS: The patient is somewhat forgetful and does not remember a lot of details because of closed-head injury, but her predominant symptoms are shortness of breath, cough, and productive sputum. Rest of her system review is unremarkable. PHYSICAL EXAMINATION: VITAL SIGNS: Heart rate is 122 beats per minute, blood pressure is 122/80, respiratory rate 18. CHEST: Reveals diffuse rhonchi. HEART: Reveals first and second heart sounds. Irregular rhythm. Ejection systolic murmur in the aortic area and a systolic murmur at the apex. ABDOMEN: Soft. EXTREMITIES: Exam of extremities reveals 1+ edema bilaterally. ASSESSMENT: 1. Persistent atrial fibrillation with poorly controlled ventricular rate. 2. Acute on chronic diastolic heart failure. 3. Mitral regurgitation. 4. Acute on chronic renal failure. PLAN: We will continue with gentle diuresis, optimal control of blood pressure, treat the underlying COPD exacerbation, continue the anticoagulant, control her heart rate by increasing the dose of Lopressor, and further adjustments to therapies as tolerated. MMODL / IJN: [id number] /
[2023-02-09 10:21] LABS: HCT 38.9 % (34.0-46.0); HGB 12.2 gm/dL (11.4-16.0); Hypochromasia Moderate; MCH 31.5 pg (25.0-35.0); MCHC 31.4 g/dL (31.0-37.0); MCV 100.3 fL (80.0-100.0); Macrocytosis Slight; Mean Platelet Volume 8.5; Platelet Count 213 k/uL (150-450); RBC 3.88 m/uL (3.80-5.40); RDW 14.9 % (11.5-15.5); WBC 11.8 k/uL (3.8-10.6)
[2023-02-09 10:49] LABS: ALT 24 U/L (4-34); AST 30 U/L (14-36); African American GFR (CKD) 28 (>60 ml/min/1.73 sqM); Albumin 3.6 g/dL (3.5-5.0); Alkaline Phosphatase 115 U/L (38-126); Anion Gap 12 mmol/L; Blood Urea Nitrogen 67 mg/dL (7-17); Calcium 8.5 mg/dL (8.4-10.2); Carbon Dioxide 25 mmol/L (22-30); Chloride 98 mmol/L (98-107); Glucose 301 mg/dL (74-99); Magnesium 2.3 mg/dL (1.6-2.3); Non-African American GFR(CKD) 24 (>60 ml/min/1.73 sqM); Sodium 135 mmol/L (137-145); Total Bilirubin 0.8 mg/dL (0.2-1.3); Total Protein 7.3 g/dL (6.3-8.2)
[2023-02-09 11:30] LABS: Potassium 4.4 mmol/L (3.5-5.1)
[2023-02-09] MEDS: ASPIRIN-ACET-CAFF 250-250-65MG 1 EACH TAB PO PRN (11:32)
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
--- NOTE | 2023-02-09 13:43 | P.PN ---
Subjective Progress Note Date: 02/09/23 Hospital course: Patient is a very pleasant 67-year-old female with a past medical history of chronic hypoxic respiratory failure secondary to COPD on home oxygen at 2 L at all times, CAD with stent, paroxysmal atrial fibrillation on anticoagulation with Eliquis, HFpEF, hypertension, hyperlipidemia, chronic kidney disease stage IV, hypothyroidism, and history of a closed head injury with deficit a residual memory impairment. She presented to the emergency department on 02/08/23 se condary to increasing shortness of breath and generalized weakness beginning several weeks ago and progressively worsening. She underwent full evaluation in the emergency department. Vital signs upon arrival revealed heart rate 102, respiratory rate 20, temp 98.4F, BP 116/79, and SpO2 of 97% on 2 L. EKG was completed showing atrial fibrillation with RVR at 109 bpm. Chest x-ray revealing prominent pulmonary vasculature concerning for CHF or posterior pneumonia. Labs completed and reviewed. CBC showing leukocytosis with WBC count of 16.6, coagulation profile normal findings, and BMP consistent with stage IV chronic kidney disease with BUN of 74, creatinine 2.37, and GFR of 20. Troponin 0.013 and proBNP of 8590. Physical exam: Vital signs reviewed and stable. General: Nontoxic, no distress and appears stated age. Derm: Skin warm and dry, normal coloration for ethnicity. Head: Atraumatic, normocephalic and symmetric. Eyes: EOMs intact, no lid lag, and anicteric sclera Mouth: no lip lesions, mucus membranes moist Cardiovascular: regular rate and rhythm with normal S1S2, systolic murmur, positive posterior tibial pulses bilaterally, and cap refill < 2 seconds. Lungs: Respirations even, regular, and unlabored on room air. Lungs CTA bilaterally, no rhonchi, no rales, no wheezing, and no accessory muscle usage. Abdominal: soft, nontender to palpation, no guarding, no appreciable organomegaly Ext: ROM intact. No gross muscle atrophy, 1+ pitting bilateral lower extremity edema, no contractures Neuro: Speech clear, face symmetrical. GCS 14. Movement and sensation intact. Psych: Alert and oriented to person, place, time, and situation. Appropriate and pleasant affect. Assessment and Plan of Care: Acute respiratory failure with hypoxia secondary to diastolic heart failure exacerbation COPD Stage IV chronic kidney disease -Cardiology consulted, appreciate recommendations. -Pulmonology following. Appreciate recommendations. -Telemetry monitoring -ProBNP 8590 -Daily weights -Close monitoring of I's and O's -Cardiac diet -Continue Lasix 40 mg IVP every 12 hours -Continuation of daily medications including: Amiodarone 100 mg daily, Eliquis 2.5 mg twice daily, atorvastatin 20 mg nightly, Symbicort 2 puffs twice daily, Farxiga 5 mg daily, Neurontin 100 mg 3 times daily, levothyroxine 75 g daily, metoprolol 25 mg twice daily, midodrine 10 mg 3 times daily, and Singulair 10 mg daily with scheduled DuoNeb's 4 times daily and as needed for shortness of br eath and/or wheezing. -Continued close monitoring of electrolytes while diuresing. History of closed head injury with memory impairment -Patient to continue with Zoloft 100 mg nightly and trazodone 200 mg nightly. -Patient to be provided with patient supportive care with assistance as needed. -Fall precautions. Data reviewed: -Blood pressure 122/80, heart rate 116, respiratory rate 18, SpO2 of 96% on 2 L O2 via nasal cannula. -Labs completed and reviewed. CBC showing improvement of leukocytosis with WBC count decreasing from 16.6 down to 11.8. BMP showing stable stage IV chronic kidney disease with BUN of 67, creatinine 2.05, GFR of 24 (baseline creatinine 1.9) DVT prophylaxis: Eliquis Anticipated discharge date: Clinical course to determine Anticipated discharge place: Home Patient was seen independently by Nurse Pracitioner. This document was prepared using [employer] dictation software. Please allow for errors in trust evaluation supervisor, while rare they do occur. Calixto Diaz NP rendered care for this patient independently, reviewed the findings and plan as documented in the note above. I did not physically speak with or examine the patient on this date. Objective - Vital Signs Vital signs: Vital Signs Temp 98.4 F 02/08/23 17:54 Pulse 122 H 02/09/23 08:15 Resp 20 02/09/23 06:00 BP 122/80 02/09/23 06:00 Pulse Ox 96 02/09/23 08:07 FiO2 Intake & Output 02/08/23 02/09/23 02/09/23 18:59 06:59 18:59 Weight 77.111 kg - Labs CBC & Chem 7: 02/09/23 09:56 02/09/23 09:56 Labs: Abnormal Lab Results - Last 24 Hours (Table) 02/08/23 02/08/23 Range/Units 18:17 18:17 WBC 16.6 H (3.8-10.6) k/uL Neutrophils # 14.6 H (1.3-7.7) k/uL Chloride 96 L (98-107) mmol/L BUN 74 H (7-17) mg/dL Creatinine 2.37 H (0.52-1.04) mg/dL Glucose 120 H (74-99) mg/dL Magnesium 2.4 H (1.6-2.3) mg/dL Alkaline Phosphatase 172 H (38-126) U/L
[2023-02-09] MEDS ORDERED: methylPREDNISolone SOD SUCCI 125 MG/2 ML VIAL IV SCH (13:45)
[2023-02-09] MEDS ORDERED: ACETAMINOPHEN TAB 325 MG TAB PO PRN (17:21)
[2023-02-09] MEDS: HYDROcodone/APAP 5-325MG 1 EACH TAB PO PRN (17:32)
[2023-02-09] MEDS ORDERED: SERTRALINE 100 MG TAB PO SCH (21:00)
[2023-02-09] MEDS ORDERED: ATORVASTATIN 20 MG TAB PO SCH (21:00)
[2023-02-10] MEDS: NITROGLYCERIN OINT 1 INCH/GM PACKET TOPICAL SCH (00:08)
[2023-02-10] MEDS: GABAPENTIN 100 MG CAP PO SCH ×2 (00:08→08:34)
[2023-02-10] MEDS: LEVOTHYROXINE 75 MCG TAB PO SCH (05:57)
[2023-02-10] MEDS: MIDODRINE 5 MG TAB PO SCH ×2 (05:57→11:59)
[2023-02-10] MEDS: SYMBICORT 160-4.5 MCG INHALER INHALATION SCH (07:43)
[2023-02-10] MEDS: IPRATROPIUM-ALBUTEROL 3 ML NEB INHALATION SCH ×2 (07:43→11:13)
[2023-02-10] MEDS ORDERED: ONDANSETRON 4 MG/2 ML VIAL IVP PRN (08:13)
[2023-02-10] MEDS: allopurinoL 100 MG TAB PO SCH (08:34)
[2023-02-10] MEDS: MONTELUKAST 10 MG TAB PO SCH (08:34)
[2023-02-10] MEDS: methylPREDNISolone SOD SUCCI 125 MG/2 ML VIAL IV SCH (08:34)
[2023-02-10] MEDS: APIXABAN 2.5 MG TABLET PO SCH (08:34)
[2023-02-10] MEDS: AMIODARONE 100 MG TAB PO SCH (08:34)
[2023-02-10] MEDS: METOPROLOL TARTRATE 25 MG TAB PO SCH (08:34)
[2023-02-10] MEDS: FUROSEMIDE 10 MG/ML 4 ML VIAL IV SCH (08:34)
[2023-02-10] MEDS: DAPAGLIFLOZIN PROPANEDIOL 5 MG TABLET PO SCH (08:35)
[2023-02-10 08:36] VITALS: TEMP 97.6
[2023-02-10] MEDS: HYDROcodone/APAP 5-325MG 1 EACH TAB PO PRN (08:36)
[2023-02-10] MEDS ORDERED: ZINC OXIDE PASTE (Z-GUARD) 1 APPLIC APPLIC TOPICAL PRN (10:05)
--- NOTE | 2023-02-10 11:27 | P.PN ---
Subjective Progress Note Date: 02/10/23 History of present illness: This is a 67 year old female with past medical history of coronary artery dise ase status post angioplasty of the right coronary artery, moderate mitral regurgitation, mild aortic stenosis, systolic ejection murmur in the aortic area systolic murmur at the apex chronic respiratory failure on home O2 at 2 L nasal cannula, chronic diastolic heart failure, paroxysmal atrial fibrillation, COPD, recurrent UTIs, memory impairment secondary to closed head injury. Patient presented hospital due to shortness of breath and generalized weakness. Cardiology was consult for heart failure. Patient has chronic cough and mild leg edema. Initial EKG was atrial fibrillation poorly controlled rate. BNP was 8590. BUN and creatinine were elevated and chest x-ray showed congestive heart failure. Patient is seen today on the cardiac stepdown unit. Patient had episode of vomiting after she ate pancakes this morning. She states she doesn't feel well in general. She has been urinating quite a bit over the past 24 hours. She denies any chest pain or palpitations. Lower extremity edema has resolved. She is complaining of anxiety and she gives her shortness of breath is a little better. Patient has been maintained on Lasix 40 mg every 12 hours. Telemetry is atrial fibrillation running in the 90s, blood pressure 106/88, pulse ox 90% on 2 L. Echocardiogram performed on 01/31/2023 revealed EF 50-55%, mild ventricular systolic function borderline normal. Moderate aortic with mild mitral and tricuspid regurgitation and mild pulmonary hypertension. Physical examination: Gen: This is a 67-year-old female she is resting in bed and appears to be comfortable and in no acute distress. VS: reviewed HEENT: Head is atraumatic, normocephalic. Pupils equal, round. Sclerae is anicteric. LUNGS: Clear to auscultation. No wheezes or rhonchi. No intercostal retracti ons. HEART: Regular rate and rhythm. No murmur. EXTREMITIES: No pedal edema. No calf tenderness. NEUROLOGICAL: Patient is awake, alert and oriented x3. Assessment: Persistent atrial fibrillation with poorly controlled ventricular rate Acute on chronic diastolic heart failure Mitral regurgitation Acute and chronic renal failure Plan: IV Lasix may be transitioned to oral Lasix, home dose Continue patient's home cardiac medications Patient is cleared for discharge from cardiology may follow with Dr. Stockton in 1-2 weeks. Nurse practitioner note has been reviewed, I agree with documented findings and plan of care. Patient was seen and examined. Objective - Vital Signs Vital signs: Vital Signs Temp 98.1 F 02/10/23 00:00 Pulse 90 02/10/23 08:01 Resp 18 02/10/23 04:00 BP 106/68 02/10/23 04:00 Pulse Ox 98 02/10/23 07:44 FiO2 Intake & Output 02/09/23 02/10/23 02/10/23 18:59 06:59 18:59 Weight 77.111 kg Other: Voiding Method External Catheter # Voids 2 - Labs CBC & Chem 7: 02/09/23 09:56 02/09/23 09:56 Labs: Abnormal Lab Results - Last 24 Hours (Table) 02/09/23 02/09/23 Range/Units 09:56 09:56 WBC 11.8 H (3.8-10.6) k/uL MCV 100.3 H (80.0-100.0) fL Sodium 135 L (137-145) mmol/L BUN 67 H (7-17) mg/dL Creatinine 2.05 H (0.52-1.04) mg/dL Glucose 301 H (74-99) mg/dL Microbiology - Last 24 Hours (Table) 02/08/23 18:20 Blood Culture - Preliminary Blood 02/08/23 18:05 Blood Culture - Preliminary Blood
[2023-02-10 11:30] VITALS: BP 108/72; PULSE 86; RESP 18
--- NOTE | 2023-02-10 12:02 | P.DS ---
Providers Date of admission: 02/08/23 19:58 Expected date of discharge: 02/10/23 Attending physician: Gm Richey MD Consults: 02/08/23 19:58 Consult Physician Routine Consulting Provider: [facility] Consult Reason/Comments: Pulmonary edema Do you want consulting provider notified?: Yes 02/09/23 08:50 Consult Physician Routine Consulting Provider: Santiago Briseno Consult Reason/Comments: gaby is PCP, pt admitted with acute on chronic resp failure Do you want consulting provider notified?: Yes Primary care physician: Santiago Briseno Hospital Course: Discharge Diagnosis: Acute respiratory failure with hypoxia secondary to diastolic heart failure exacerbation. Patient underwent successful IV diuresis. She is being dis charged home on oral Lasix 40 mg daily and instructed to follow up outpatient with her cutting and printing machine operator in 1 week. Patient was given detailed discharge instructions regarding her CHF and how to closely monitor for exacerbations and when to call her primary care provider and cutting and printing machine operator for guidance and increasing or changes to her medication regimen. Patient also encouraged to discuss the possibility of HFMS Zoll Heart Failure monitoring device along with Furoscix (furosemide subcutaneous injection unit) with her cutting and printing machine operator at her follow-up appointment for better management of her heart failure. COPD. Stage IV chronic kidney disease Paroxysmal atrial fibrillation Hypertension Hyperlipidemia Hypothyroidism History of closed head injury with memory impairment. Patient to continue with Zoloft 100 mg nightly and trazodone 200 mg nightly. 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 She presented to the emergency department on 02/08/23 secondary to increasing shortness of breath and generalized weakness beginning several weeks ago and progressively worsening. She underwent full evaluation in the emergency department. Vital signs upon arrival revealed heart rate 102, respiratory rate 20, temp 98.4F, BP 116/79, and SpO2 of 97% on 2 L. EKG was completed showing atrial fibrillation with RVR at 109 bpm. Chest x-ray revealing prominent pulmonary vasculature concerning for CHF or posterior pneumonia. Labs completed and reviewed. CBC showing leukocytosis with WBC count of 16.6, coagulation profile normal findings, and BMP consistent with stag e IV chronic kidney disease with BUN of 74, creatinine 2.37, and GFR of 20. Troponin 0.013 and proBNP of 8590. Patient was admitted under the services and underwent IV diuresis for management of diastolic heart failure. Patient also received [id number] breathing treatments scheduled and as needed for management of her COPD with chronic hypoxic respiratory failure. Patient was strongly encouraged to go to rehab however adamantly refused. Patient's also wanted patient to go to rehab but respected wishes of patient's refusal at this time. Had long discussion with patient and her regarding palliative care. Patient is being discharged home on palliative care and was provided with detailed discharge instructions regarding her CHF and how to closely monitor for exacerbations and when to call her primary care provider and cutting and printing machine operator for guidance and increasing or changes to her medication regimen. Patient also encouraged to discuss the possibility of HFMS Zoll Heart Failure monitoring device along with Furoscix (furosemide subcutaneous injection unit) with her cutting and printing machine operator at her follow-up appointment for better management of her heart failure. Physical exam: Vital signs reviewed and stable. General: Nontoxic, no distress and appears stated age. Derm: Skin warm and dry, normal coloration for ethnicity. Head: Atraumatic, normocephalic and symmetric. Eyes: EOMs intact, no lid lag, and anicteric sclera Mouth: no lip lesions, mucus membranes moist Cardiovascular: regular rate and rhythm with normal S1S2, systolic murmur, positive posterior tibial pulses bilaterally, and cap refill < 2 seconds. Lungs: Respirations even, regular, and unlabored on 2 L O2 via nasal cannula. Lungs with equal air entry, slightly diminished. No wheezes, rhonchi, or rales noted. Abdominal: soft, nontender to palpation, no guarding, no appreciable organomegaly Ext: ROM intact. No gross muscle atrophy, 1+ pitting bilateral lower extremity edema, no contractures Neuro: Speech clear, face symmetrical. GCS 14. Movement and sensation intact. Psych: Alert and oriented to person, place, time, and situation. Appropriate and pleasant affect. A total of 36 minutes of time were spent preparing this complex discharge summary. Pt was discharged on 02/10/23 at 11:45 AM Patient was seen independently by Nurse Practitioner. This document was prepared using [email or web address] dictation software. Please allow for errors in breaking machine operator while rare they do occur. Calixto Diaz NP rendered care for this patient independently, reviewed the findings and plan as documented in the note above. I did not physically speak with or examine the patient on this date. Patient Condition at Discharge: Stable Plan - Discharge Summary Discharge Rx Participant: No New Discharge Prescriptions: New Metoprolol Tartrate [Lopressor] 25 mg PO BID 30 Days #60 tab predniSONE 40 mg PO DAILY 5 Days #20 tab Continue Sertraline HCl [Zoloft] 100 mg PO HS Atorvastatin [Lipitor] 20 mg PO HS Levothyroxine Sodium [Synthroid] 75 mcg PO DAILY Albuterol Inhaler [Ventolin Hfa Inhaler] 2 puff INHALATION RT-QID PRN PRN Reason: Shortness Of Breath Cholecalciferol [Vitamin D3 (25 Mcg = 1000 Iu)] 50 mcg PO DAILY Budesonide-Formot 160-4.5 Mcg [Symbicort 160-4.5 Mcg Inhaler] 2 puff INHALATION RT-BID #1 each Furosemide [Lasix] 40 mg PO DAILY Ascorbic Acid [Vitamin C] 1,000 mg PO DAILY allopurinoL [Zyloprim] 100 mg PO BID Cyclobenzaprine [Flexeril] 10 mg PO TID PRN PRN Reason: Muscle Spasm Ipratropium-Albuterol Nebulize [Duoneb 0.5 mg-3 mg/3 ml Soln] 3 ml INHALATION RT-TID Midodrine [ProAmatine] 10 mg PO AC-TID #90 tab Acetaminophen Tab [Tylenol] 650 mg PO Q6HR PRN tab PRN Reason: Mild Pain Or Fever > 100.5 Montelukast [Singulair] 10 mg PO DAILY Omeprazole 20 mg PO DAILY Amiodarone [Cordarone] 100 mg PO DAILY Apixaban [Eliquis] 2.5 mg PO BID calcitrioL [Rocaltrol] 0.25 mcg PO TH traZODone HCL [Desyrel] 200 mg PO HS PRN PRN Reason: sleep Nitroglycerin Sl Tabs [Nitrostat] 0.4 mg SL Q5M PRN PRN Reason: Chest Pain Dapagliflozin Propanediol [Farxiga] 5 mg PO DAILY #30 tab Gabapentin [Neurontin] 100 mg PO TID #90 cap Cefdinir [Omnicef] 300 mg PO Q12HR #6 capsule Calcium Carbonate [Tums] 500 mg PO QID PRN tab PRN Reason: Heartburn Discontinued Metoprolol Tartrate [Lopressor] 12.5 mg PO BID #0 Discharge Medication List Sertraline HCl [Zoloft] 100 mg PO HS 12/22/18 [History] Atorvastatin [Lipitor] 20 mg PO HS 03/09/19 [History] Levothyroxine Sodium [Synthroid] 75 mcg PO DAILY 06/17/19 [History] Albuterol Inhaler [Ventolin Hfa Inhaler] 2 puff INHALATION RT-QID PRN 10/09/20 [History] Montelukast [Singulair] 10 mg PO DAILY 10/09/20 [History] Omeprazole 20 mg PO DAILY 10/09/20 [History] Amiodarone [Cordarone] 100 mg PO DAILY 01/17/22 [History] Cholecalciferol [Vitamin D3 (25 Mcg = 1000 Iu)] 50 mcg PO DAILY 01/17/22 [History] Budesonide-Formot 160-4.5 Mcg [Symbicort 160-4.5 Mcg Inhaler] 2 puff INHALATION RT-BID #1 each 01/31/22 [Rx] Apixaban [Eliquis] 2.5 mg PO BID 04/29/22 [History] Furosemide [Lasix] 40 mg PO DAILY 07/09/22 [History] Ascorbic Acid [Vitamin C] 1,000 mg PO DAILY 07/28/22 [History] Cyclobenzaprine [Flexeril] 10 mg PO TID PRN 10/28/22 [History] allopurinoL [Zyloprim] 100 mg PO BID 10/28/22 [History] Ipratropium-Albuterol Nebulize [Duoneb 0.5 mg-3 mg/3 ml Soln] 3 ml INHALATION RT-TID 01/30/23 [History] Nitroglycerin Sl Tabs [Nitrostat] 0.4 mg SL Q5M PRN 01/30/23 [History] calcitrioL [Rocaltrol] 0.25 mcg PO TH 01/30/23 [History] traZODone HCL [Desyrel] 200 mg PO HS PRN 01/30/23 [History] Acetaminophen Tab [Tylenol] 650 mg PO Q6HR PRN tab 02/06/23 [Rx] Calcium Carbonate [Tums] 500 mg PO QID PRN tab 02/06/23 [Rx] Cefdinir [Omnicef] 300 mg PO Q12HR #6 capsule 02/06/23 [Rx] Dapagliflozin Propanediol [Farxiga] 5 mg PO DAILY #30 tab 02/06/23 [Rx] Gabapentin [Neurontin] 100 mg PO TID #90 cap 02/06/23 [Rx] Midodrine [ProAmatine] 10 mg PO AC-TID #90 tab 02/06/23 [Rx] Metoprolol Tartrate [Lopressor] 25 mg PO BID 30 Days #60 tab 02/10/23 [Rx] predniSONE 40 mg PO DAILY 5 Days #20 tab 02/10/23 [Rx] Follow up Appointment(s)/Referral(s): Santiago Briseno MD [Primary Care Provider] - 1-2 days (please call to schedule office closed for lunch. ) Pola Stockton MD [STAFF PHYSICIAN] - 1 Week (please call to schedule office closed for lunch. ) [facility], [NON-STAFF] - (they will call you to set up homecare. ) Patient Instructions/Handouts: Pulmonary Edema (DC) Activity/Diet/Wound Care/Special Instructions: Activity: As tolerated. Take breaks as needed. Diet: Heart healthy and carb consistent diet. Avoid salts, or foods with hidden salts such as canned or boxed foods and frozen dinners. Extra salt makes your heart work harder and traps the fluid in your body for longer. Special Instructions: Weigh yourself every morning after you urinate. If you gain 3 pounds overnight or more than 5 pounds in one week, call your primary physician and cutting and printing machine operator for guidance on your medications or they may want to see you in their office. Keep a daily log of your weights and be sure to bring with you at follow up visits with your PCP and cutting and printing machine operator. At your follow up with cardiology, it is recommending that you discuss and find out more information on the HFMS Zoll Heart Failure monitoring device along with Furoscix (furosemide subcutaneous injection unit) for better management of your heart failure. Take all of your medications as directed, especially your water pills. NEVER skip a dose. And remember to keep all of your doctor's appointments and follow- up as needed. Elevate your legs when you are not up moving around to help with circulation and prevent swelling. Compression stockings are also a great way to improve lower extremity circulation and prevent/improve lower extremity edema. Call your primary care provider and cutting and printing machine operator if you notice any extra swelling in your legs, ankles, feet or abdomen, if you have a new dry cough, if your shortness of breath worsens with activity or at rest, or if you feel more fatigued. There being discharged home with home care and palliative care as we discussed. Someone will be reaching out to you over the next couple days to set up meeting/visit to further discuss palliative care. Thank you for allowing us to participate in your care, it was truly a pleasure having you for our patient!!! Discharge Disposition: HOME WITH HOME HEALTH SERVICES
[2023-02-10 12:06] LABS: HCT 36.9 % (34.0-46.0); HGB 11.6 gm/dL (11.4-16.0); Hypochromasia Slight; MCH 31.2 pg (25.0-35.0); MCHC 31.4 g/dL (31.0-37.0); MCV 99.2 fL (80.0-100.0); Macrocytosis Slight; Mean Platelet Volume 8.5; Platelet Count 271 k/uL (150-450); RBC 3.72 m/uL (3.80-5.40); RDW 15.1 % (11.5-15.5); WBC 19.6 k/uL (3.8-10.6)
[2023-02-10 12:30] LABS: ALT 22 U/L (4-34); AST 18 U/L (14-36); African American GFR (CKD) 21 (>60 ml/min/1.73 sqM); Albumin 3.4 g/dL (3.5-5.0); Alkaline Phosphatase 118 U/L (38-126); Anion Gap 15 mmol/L; Blood Urea Nitrogen 71 mg/dL (7-17); Calcium 8.8 mg/dL (8.4-10.2); Carbon Dioxide 25 mmol/L (22-30); Chloride 97 mmol/L (98-107); Glucose 195 mg/dL (74-99); Magnesium 2.4 mg/dL (1.6-2.3); Non-African American GFR(CKD) 18 (>60 ml/min/1.73 sqM); Potassium 3.4 mmol/L (3.5-5.1); Sodium 137 mmol/L (137-145); Total Bilirubin 0.4 mg/dL (0.2-1.3); Total Protein 6.7 g/dL (6.3-8.2)
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
== END 2023-02-10 12:50 | disposition home health service (06) | DRG 291 ==
LOC: EC 17:48 → 3SCARD 19:58
PROVIDERS: ADMIT Internal Medicine; ATTEND Internal Medicine
DX: I13.0 Hypertensive heart and chronic kidney disease with heart failure and stage 1 through stage 4 chronic kidney disease, or unspecified chronic kidney disease (principal); I50.33 Acute on chronic diastolic (congestive) heart failure; J96.21 Acute and chronic respiratory failure with hypoxia; I48.19 Other persistent atrial fibrillation; N18.4 Chronic kidney disease, stage 4 (severe); N17.9 Acute kidney failure, unspecified; J44.1 Chronic obstructive pulmonary disease with (acute) exacerbation; I27.81 Cor pulmonale (chronic); E03.9 Hypothyroidism, unspecified; E78.5 Hyperlipidemia, unspecified; I34.0 Nonrheumatic mitral (valve) insufficiency; Z51.5 Encounter for palliative care; I25.10 Atherosclerotic heart disease of native coronary artery without angina pectoris; F31.9 Bipolar disorder, unspecified; F41.9 Anxiety disorder, unspecified; M54.9 Dorsalgia, unspecified; E11.22 Type 2 diabetes mellitus with diabetic chronic kidney disease; I27.29 Other secondary pulmonary hypertension; G89.29 Other chronic pain; K21.9 Gastro-esophageal reflux disease without esophagitis; Z79.890 Hormone replacement therapy; Z79.01 Long term (current) use of anticoagulants; Z79.52 Long term (current) use of systemic steroids; Z79.899 Other long term (current) drug therapy; Z86.14 Personal history of Methicillin resistant Staphylococcus aureus infection; Z86.718 Personal history of other venous thrombosis and embolism; Z86.711 Personal history of pulmonary embolism; Z95.5 Presence of coronary angioplasty implant and graft; Z99.81 Dependence on supplemental oxygen; Z79.51 Long term (current) use of inhaled steroids; Z79.84 Long term (current) use of oral hypoglycemic drugs; Z82.49 Family history of ischemic heart disease and other diseases of the circulatory system; Z86.73 Personal history of transient ischemic attack (TIA), and cerebral infarction without residual deficits; Z87.440 Personal history of urinary (tract) infections; Z87.828 Personal history of other (healed) physical injury and trauma; Z90.710 Acquired absence of both cervix and uterus
CPT/HCPCS: 36415; 71046; 80053; 83605; 83735; 83880; 84484; 85025; 85027; 85610; 85730; 87040; 93005; 94640; 94760; 96374; 96375; 96376; 99285

== ENCOUNTER 2023-02-11 16:11 | Emergency (ER) | payer MEDICARE, OTHER ==
[2023-02-11 16:28] VITALS: BP 132/88; PULSE 96; RESP 20; TEMP 98.4
[2023-02-11 17:20] LABS: Basophils # (A) 0.1 k/uL (0-0.2); Basophils % (A) 0 %; Eosinophils % (A) 0 %; HCT 41.3 % (34.0-46.0); HGB 13.1 gm/dL (11.4-16.0); Hypochromasia Slight; Lymphocytes # (A) 0.9 k/uL (1.0-4.8); Lymphocytes % (A) 5 %; MCH 31.3 pg (25.0-35.0); MCHC 31.8 g/dL (31.0-37.0); MCV 98.7 fL (80.0-100.0); Macrocytosis Slight; Mean Platelet Volume 8.1; Monocytes # (A) 0.3 k/uL (0-1.0); Monocytes % (A) 2 %; Neutrophils # (A) 17.9 k/uL (1.3-7.7); Neutrophils % (A) 93 %; Platelet Count 304 k/uL (150-450); RBC 4.19 m/uL (3.80-5.40); RDW 15.1 % (11.5-15.5); WBC 19.3 k/uL (3.8-10.6)
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
[2023-02-11 17:40] LABS: ALT 23 U/L (4-34); AST 22 U/L (14-36); African American GFR (CKD) 15 (>60 ml/min/1.73 sqM); Albumin 3.8 g/dL (3.5-5.0); Alkaline Phosphatase 134 U/L (38-126); Anion Gap 17 mmol/L; Blood Urea Nitrogen 87 mg/dL (7-17); Calcium 8.8 mg/dL (8.4-10.2); Carbon Dioxide 24 mmol/L (22-30); Chloride 97 mmol/L (98-107); Glucose 113 mg/dL (74-99); Magnesium 2.4 mg/dL (1.6-2.3); Non-African American GFR(CKD) 13 (>60 ml/min/1.73 sqM); Potassium 3.6 mmol/L (3.5-5.1); Sodium 138 mmol/L (137-145); Total Bilirubin 0.4 mg/dL (0.2-1.3); Total Protein 7.4 g/dL (6.3-8.2)
[2023-02-11 18:06] LABS: Partial Thromboplastin Time 21.6 sec (22.0-30.0)
--- NOTE | 2023-02-11 18:32 | XR ---
EXAMINATION: XR chest 2V: 02/11/2023 5:34 PM CLINICAL INDICATION: Chest Pain TECHNIQUE: Departmental protocol COMPARISON: 02/08/2023 at 7:00 PM FINDINGS: The lungs redemonstrate the interstitial pattern seen throughout the upper, mid, and lower lung zones on the 3 radiograph. Findings are consistent with a clinical diagnosis of interstitial phase pulmonary edema. The pleural spaces are negative. The cardiac silhouette is enlarged, unchanged. The skeletal structures and soft tissues are negative for acute findings. IMPRESSION: Stable abnormalities.
[2023-02-11] MEDS ORDERED: SODIUM CHLORIDE 0.9% 500 ML 500 ML IV ONE (19:52)
== END 2023-02-11 20:15 | disposition home or self-care (01) ==
LOC: EC 16:11
DX: R07.89 Other chest pain (principal); E03.9 Hypothyroidism, unspecified; E78.5 Hyperlipidemia, unspecified; I13.0 Hypertensive heart and chronic kidney disease with heart failure and stage 1 through stage 4 chronic kidney disease, or unspecified chronic kidney disease; I50.9 Heart failure, unspecified; K21.9 Gastro-esophageal reflux disease without esophagitis; J44.89 Other specified chronic obstructive pulmonary disease; N18.32 Chronic kidney disease, stage 3b; I25.10 Atherosclerotic heart disease of native coronary artery without angina pectoris; I48.0 Paroxysmal atrial fibrillation; F31.9 Bipolar disorder, unspecified; F41.9 Anxiety disorder, unspecified; Z79.890 Hormone replacement therapy; Z79.899 Other long term (current) drug therapy; Z79.01 Long term (current) use of anticoagulants; Z88.2 Allergy status to sulfonamides; Z88.8 Allergy status to other drugs, medicaments and biological substances
CPT/HCPCS: 36415; 71046; 80053; 83735; 84484; 85025; 85610; 85730; 93005; 99285

== ENCOUNTER 2023-02-18 12:27 | Emergency (ER) | payer MEDICARE, OTHER ==
[2023-02-18 13:05] VITALS: TEMP 99.2
[2023-02-18 13:15] LABS: Basophils % (A) 0 %; Eosinophils # (A) 0.2 k/uL (0-0.7); Eosinophils % (A) 1 %; HCT 36.2 % (34.0-46.0); HGB 11.7 gm/dL (11.4-16.0); Hypochromasia Slight; Lymphocytes # (A) 0.5 k/uL (1.0-4.8); Lymphocytes % (A) 3 %; MCHC 32.2 g/dL (31.0-37.0); MCV 96.2 fL (80.0-100.0); Mean Platelet Volume 7.5; Monocytes # (A) 0.2 k/uL (0-1.0); Monocytes % (A) 2 %; Neutrophils # (A) 13.8 k/uL (1.3-7.7); Neutrophils % (A) 94 %; Platelet Count 234 k/uL (150-450); RBC 3.76 m/uL (3.80-5.40); RDW 15.3 % (11.5-15.5); WBC 14.8 k/uL (3.8-10.6)
[2023-02-18 13:25] LABS: Partial Thromboplastin Time 22.5 sec (22.0-30.0); Prothrombin Time 10.6 sec (10.0-12.5)
[2023-02-18 13:31] LABS: ALT 26 U/L (4-34); AST 26 U/L (14-36); African American GFR (CKD) 36 (>60 ml/min/1.73 sqM); Albumin 3.6 g/dL (3.5-5.0); Alkaline Phosphatase 114 U/L (38-126); Anion Gap 11 mmol/L; Blood Urea Nitrogen 36 mg/dL (7-17); Calcium 8.7 mg/dL (8.4-10.2); Carbon Dioxide 23 mmol/L (22-30); Chloride 103 mmol/L (98-107); Glucose 144 mg/dL (74-99); Non-African American GFR(CKD) 31 (>60 ml/min/1.73 sqM); Potassium 3.5 mmol/L (3.5-5.1); Sodium 137 mmol/L (137-145); Total Bilirubin 0.5 mg/dL (0.2-1.3); Total Protein 6.9 g/dL (6.3-8.2)
[2023-02-18 13:38] LABS: NT-Pro-B-Type Natriuretic Pept 11800 pg/mL
[2023-02-18] MEDS ORDERED: IPRATROPIUM-ALBUTEROL 3 ML NEB INHALATION STA (14:10)
[2023-02-18] MEDS ORDERED: FUROSEMIDE 10 MG/ML 4 ML VIAL IV STA ×2 (14:10→17:04)
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
--- NOTE | 2023-02-18 14:23 | XR ---
EXAMINATION TYPE: XR chest 2V DATE OF EXAM: 02/18/2023 COMPARISON: 02/11/2023 INDICATION: Weakness CHF TECHNIQUE: Frontal and lateral views of the chest are obtained. FINDINGS: The heart size is enlarged. The pulmonary vasculature is prominent. Diffuse increased lung markings are present. Correlate for pulmonary edema. IMPRESSION: 1. Clinical correlation recommended for worsening congestive heart failure.
[2023-02-18 15:07] VITALS: RESP 18
[2023-02-18 16:43] LABS: Appearance,Urine Clear (Clear); Bilirubin,Urine Negative (Negative); Blood,Urine Moderate (Negative); Budding Yeast,Urine Occasional /hpf; Color,Urine Colorless; Glucose,Urine (UA) 2+ (Negative); Ketones,Urine Negative (Negative); Leukocyte Esterase,Urine Small (Negative); Mucus,Urine Rare /hpf; Nitrite,Urine Negative (Negative); Protein,Urine Trace (Negative); RBC,Urine 17 /hpf (0-5); Squamous Epithelial Cell,Urine 1 /hpf (0-4); Urobilinogen,Urine <2.0 mg/dL (<2.0); WBC,Urine 6 /hpf (0-5)
[2023-02-18 18:04] VITALS: BP 94/60; PULSE 104
== END 2023-02-18 17:46 | disposition home or self-care (01) ==
LOC: EC 12:27
DX: I50.9 Heart failure, unspecified (principal); I48.91 Unspecified atrial fibrillation; I25.10 Atherosclerotic heart disease of native coronary artery without angina pectoris; I13.0 Hypertensive heart and chronic kidney disease with heart failure and stage 1 through stage 4 chronic kidney disease, or unspecified chronic kidney disease; N18.32 Chronic kidney disease, stage 3b; J44.89 Other specified chronic obstructive pulmonary disease; K21.9 Gastro-esophageal reflux disease without esophagitis; E03.9 Hypothyroidism, unspecified; E78.5 Hyperlipidemia, unspecified; F41.9 Anxiety disorder, unspecified; F31.9 Bipolar disorder, unspecified; Z87.891 Personal history of nicotine dependence; Z20.822 Contact with and (suspected) exposure to COVID-19; Z79.899 Other long term (current) drug therapy; Z88.2 Allergy status to sulfonamides; Z88.1 Allergy status to other antibiotic agents; Z88.8 Allergy status to other drugs, medicaments and biological substances; Z79.01 Long term (current) use of anticoagulants; Z79.890 Hormone replacement therapy; Z90.49 Acquired absence of other specified parts of digestive tract; Z99.2 Dependence on renal dialysis
CPT/HCPCS: 36415; 94640; 93005; 83880; 80053; 83605; 84484; 85025; 85610; 85730; 81001; 87636; 71046; 99285; 96374; J1940; 87086

== ENCOUNTER 2023-02-22 14:12 | Emergency (ER) | payer MEDICARE, OTHER ==
[2023-02-22] MEDS ORDERED: SODIUM CHLORIDE 0.9% 500 ML 500 ML IV ONE (14:40)
[2023-02-22] MEDS ORDERED: IPRATROPIUM-ALBUTEROL 3 ML NEB INHALATION STA (14:40)
[2023-02-22] MEDS ORDERED: ONDANSETRON 4 MG/2 ML VIAL IVP STA (14:49)
[2023-02-22 14:57] LABS: Basophils % (A) 0 %; Eosinophils # (A) 0.4 k/uL (0-0.7); Eosinophils % (A) 2 %; HCT 38.9 % (34.0-46.0); HGB 12.5 gm/dL (11.4-16.0); Hypochromasia Slight; Lymphocytes # (A) 1.1 k/uL (1.0-4.8); Lymphocytes % (A) 7 %; MCH 30.5 pg (25.0-35.0); MCV 95.2 fL (80.0-100.0); Mean Platelet Volume 7.8; Monocytes # (A) 0.2 k/uL (0-1.0); Monocytes % (A) 2 %; Neutrophils # (A) 13.6 k/uL (1.3-7.7); Neutrophils % (A) 88 %; Platelet Count 225 k/uL (150-450); RBC 4.08 m/uL (3.80-5.40); RDW 15.3 % (11.5-15.5); WBC 15.5 k/uL (3.8-10.6)
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
[2023-02-22 15:07] LABS: ALT 21 U/L (4-34); African American GFR (CKD) 34 (>60 ml/min/1.73 sqM); Albumin 3.6 g/dL (3.5-5.0); Anion Gap 13 mmol/L; Blood Urea Nitrogen 30 mg/dL (7-17); Carbon Dioxide 26 mmol/L (22-30); Chloride 98 mmol/L (98-107); Glucose 91 mg/dL (74-99); Non-African American GFR(CKD) 29 (>60 ml/min/1.73 sqM); Sodium 137 mmol/L (137-145); Total Bilirubin 0.7 mg/dL (0.2-1.3); Total Protein 7.2 g/dL (6.3-8.2)
[2023-02-22 15:09] LABS: AST 27 U/L (14-36); Alkaline Phosphatase 118 U/L (38-126); Potassium 3.4 mmol/L (3.5-5.1)
--- NOTE | 2023-02-22 15:23 | XR ---
EXAMINATION TYPE: XR chest 2V DATE OF EXAM: 02/22/2023 COMPARISON: 02/18/2023 HISTORY: Shortness of breath TECHNIQUE: Frontal and lateral views of the chest are obtained. FINDINGS: Scattered senescent parenchymal changes noted. Hyperinflation compatible with COPD. Coarse infiltrates are seen throughout both lung sanchez suspicious for pneumonia. Heart size is stable. Mediastinal structures are stable and grossly unremarkable. No evidence for hilar prominence. Degenerative changes dorsal spine. IMPRESSION: 1. Coarse infiltrates are seen throughout both lung sanchez suspicious for pneumonia.
[2023-02-22] MEDS ORDERED: ASPIRIN-ACET-CAFF 250-250-65MG 1 EACH TAB PO STA (15:37)
[2023-02-22] MEDS ORDERED: ONDANSETRON 4 MG ODT STARTER PACK 2 TAB BTL PO STA (17:42)
[2023-02-22 18:23] VITALS: BP 117/102; PULSE 121; RESP 22; TEMP 98
== END 2023-02-22 18:12 | disposition home or self-care (01) ==
LOC: SUPCPDRO 14:12 → EC 14:12
DX: K52.9 Noninfective gastroenteritis and colitis, unspecified (principal); E03.9 Hypothyroidism, unspecified; E78.5 Hyperlipidemia, unspecified; F31.9 Bipolar disorder, unspecified; F41.9 Anxiety disorder, unspecified; I13.0 Hypertensive heart and chronic kidney disease with heart failure and stage 1 through stage 4 chronic kidney disease, or unspecified chronic kidney disease; I25.10 Atherosclerotic heart disease of native coronary artery without angina pectoris; I50.9 Heart failure, unspecified; K21.9 Gastro-esophageal reflux disease without esophagitis; N18.32 Chronic kidney disease, stage 3b; I48.91 Unspecified atrial fibrillation; Z79.01 Long term (current) use of anticoagulants; Z79.890 Hormone replacement therapy; Z79.899 Other long term (current) drug therapy; Z87.891 Personal history of nicotine dependence; Z88.2 Allergy status to sulfonamides; Z88.8 Allergy status to other drugs, medicaments and biological substances; Z90.49 Acquired absence of other specified parts of digestive tract; Z99.2 Dependence on renal dialysis; Z95.5 Presence of coronary angioplasty implant and graft; Z20.822 Contact with and (suspected) exposure to COVID-19
CPT/HCPCS: 99284 ×2; 96374 ×2; 96361 ×2; 36415; 94640; 93005; 80053; 83605; 85025; 87635; 71046; J2405; S0119

== ENCOUNTER 2023-02-25 12:47 | Inpatient (IN) | payer MEDICARE, OTHER ==
[2023-02-25] MEDS ORDERED: DILTIAZEM 5 MG/ML 5 ML VIAL IVP STA ×2 (14:17→16:31)
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
[2023-02-25 15:10] LABS: Basophils % (A) 0 %; Eosinophils # (A) 0.4 k/uL (0-0.7); Eosinophils % (A) 3 %; HCT 36.8 % (34.0-46.0); Lymphocytes # (A) 0.8 k/uL (1.0-4.8); Lymphocytes % (A) 7 %; MCH 30.2 pg (25.0-35.0); MCHC 32.6 g/dL (31.0-37.0); MCV 92.6 fL (80.0-100.0); Mean Platelet Volume 8.1; Monocytes # (A) 0.4 k/uL (0-1.0); Monocytes % (A) 3 %; Neutrophils # (A) 9.7 k/uL (1.3-7.7); Neutrophils % (A) 85 %; Platelet Count 269 k/uL (150-450); RBC 3.98 m/uL (3.80-5.40); RDW 15.4 % (11.5-15.5); WBC 11.4 k/uL (3.8-10.6)
[2023-02-25 15:39] LABS: INR 1.3 (<1.2); Partial Thromboplastin Time 22.2 sec (22.0-30.0); Prothrombin Time 13.4 sec (10.0-12.5)
--- NOTE | 2023-02-25 15:52 | CT ---
6 EXAMINATION TYPE: CT brain wo con DATE OF EXAM: 02/25/2023 COMPARISON: HISTORY: headache, history of TBI CT DLP: 1089.[address] of the brain was performed. The ventricles, basal cisterns and sulci overlying the cerebral convexities demonstrate mild enlargem ent. There is no evidence for intracranial hemorrhage or sulcal effacement. There is decreased attenuation about the periventricular white matter and deep white matter of both c erebral hemispheres, compatible with chronic small vessel ischemia. Differential diagnosis does inclu de demyelination. No mass effects are seen.No midline shift. Osseous calvarium is intact. If symptoms persist consider MRI. IMPRESSION: 1. Age related atrophic and chronic small vessel ischemic change without acute intracranial process s een at this time.
[2023-02-25] MEDS ORDERED: diphenhydrAMINE 50 MG/ML 1 ML VIAL IVP STA (15:55)
[2023-02-25] MEDS ORDERED: KETOROLAC 15 MG/ML 1 ML VIAL IVP STA (15:55)
[2023-02-25] MEDS ORDERED: PROCHLORPERAZINE INJ 10 MG/2 ML VIAL IVP STA (15:55)
--- NOTE | 2023-02-25 15:57 | XR ---
EXAMINATION TYPE: XR chest 2V DATE OF EXAM: 02/25/2023 COMPARISON: 02/22/2023 HISTORY: Shortness of breath TECHNIQUE: Frontal and lateral views of the chest are obtained. FINDINGS: Scattered senescent parenchymal changes noted. Hyperinflation compatible with COPD. Increasing coarse infiltrates throughout both lung sanchez suspicious for atypical pneumonia. Correlat e clinically and progress studies are advised. Heart size is stable. Mediastinal structures are stable and grossly unremarkable. No evidence for hilar prominence. Degenerative changes dorsal spine. IMPRESSION: 1. No evidence for acute pulmonary disease.
[2023-02-25 16:25] LABS: NT-Pro-B-Type Natriuretic Pept 3970 pg/mL
[2023-02-25 16:56] LABS: ALT 16 U/L (4-34); AST 24 U/L (14-36); African American GFR (CKD) 33 (>60 ml/min/1.73 sqM); Albumin 3.2 g/dL (3.5-5.0); Alkaline Phosphatase 110 U/L (38-126); Anion Gap 15 mmol/L; Blood Urea Nitrogen 30 mg/dL (7-17); Calcium 8.8 mg/dL (8.4-10.2); Carbon Dioxide 21 mmol/L (22-30); Chloride 94 mmol/L (98-107); Glucose 95 mg/dL (74-99); Non-African American GFR(CKD) 28 (>60 ml/min/1.73 sqM); Potassium 3.4 mmol/L (3.5-5.1); Sodium 130 mmol/L (137-145); Total Bilirubin 0.6 mg/dL (0.2-1.3); Total Protein 6.9 g/dL (6.3-8.2)
[2023-02-25] MEDS ORDERED: DILTIAZEM 125 MG in SODIUM CHLORIDE 0.9% 100 ML IV SCH ×2 (17:15→17:45)
[2023-02-25] MEDS ORDERED: NALOXONE 0.4 MG/ML 1 ML VIAL IV PRN (17:16)
[2023-02-25] MEDS ORDERED: ALBUTEROL HFA INHALER INHALATION PRN (17:33)
[2023-02-25] MEDS ORDERED: POTASSIUM CHLORIDE ER 20 MEQ TAB.ER PO STA (17:36)
[2023-02-25] MEDS: METOPROLOL TARTRATE 50 MG TAB PO SCH (18:03)
[2023-02-25] MEDS: AMIODARONE 100 MG TAB PO SCH (18:11)
[2023-02-25] MEDS ORDERED: traZODone HCL 100 MG TAB PO PRN (18:56)
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
[2023-02-25] MEDS: GABAPENTIN 100 MG CAP PO SCH (20:02)
[2023-02-25] MEDS: APIXABAN 5 MG TAB PO SCH (20:02)
[2023-02-25] MEDS: allopurinoL 100 MG TAB PO SCH (20:02)
[2023-02-25] MEDS: SERTRALINE 100 MG TAB PO SCH (20:02)
[2023-02-25] MEDS: ATORVASTATIN 20 MG TAB PO SCH (20:02)
[2023-02-25] MEDS: SYMBICORT 160-4.5 MCG INHALER INHALATION SCH (20:35)
[2023-02-25] MEDS: IPRATROPIUM-ALBUTEROL 3 ML NEB INHALATION SCH (20:35)
[2023-02-26] MEDS: LEVOTHYROXINE 75 MCG TAB PO SCH (06:10)
[2023-02-26] MEDS: MIDODRINE 5 MG TAB PO SCH ×3 (06:10→17:53)
[2023-02-26 08:40] LABS: ALT 14 U/L (8-44); AST 17 U/L (13-35); Albumin 3.2 g/dL (3.8-4.9); Albumin/Globulin Ratio 0.94 Ratio (1.60-3.17); Alkaline Phosphatase 110 U/L (41-126); BUN/Creat Ratio 14.27 Ratio (12.00-20.00); Blood Urea Nitrogen 31.4 mg/dL (9.0-27.0); Calcium 8.9 mg/dL (8.7-10.3); Carbon Dioxide 23.2 mmol/L (21.6-31.8); Chloride 96 mmol/L (96-109); Globulin 3.4 g/dL (1.6-3.3); Glucose 100 mg/dL (70-110); Magnesium 1.7 mg/dL (1.5-2.4); Potassium 3.9 mmol/L (3.5-5.5); Sodium 135 mmol/L (135-145); Total Bilirubin 0.2 mg/dL (0.3-1.2); Total Protein 6.6 g/dL (6.2-8.2)
[2023-02-26 09:11] LABS: Basophils # (A) 0.02 X 10*3/uL (0.00-0.10); Basophils % (A) 0.2 %; Eosinophils # (A) 0.52 X 10*3/uL (0.04-0.35); Eosinophils % (A) 4.9 %; HCT 36.3 % (37.2-46.3); HGB 11.4 g/dL (12.0-15.0); Lymphocytes # (A) 0.68 X 10*3/uL (0.90-5.00); Lymphocytes % (A) 6.4 %; MCH 29.6 pg (27.0-32.0); MCHC 31.4 g/dL (32.0-37.0); MCV 94.3 FL (80.0-97.0); Mean Platelet Volume 10.8 FL (9.5-12.2); Monocytes % (A) 4.7 %; NRBC Per 100 WBC 0 X 10*3/uL (0.00-0.01); Neutrophils # (A) 8.92 X 10*3/uL (1.80-7.70); Neutrophils % (A) 83.3 %; Platelet Count 266 X 10*3/uL (140-440); RBC 3.85 X 10*6/uL (4.10-5.20); RDW 15.4 % (11.5-14.5); WBC 10.69 X 10*3/uL (4.50-10.00)
[2023-02-26 09:16] LABS: Appearance,Urine Cloudy (Clear); Bacteria,Urine Many /hpf; Bilirubin,Urine Negative (Negative); Blood,Urine Moderate (Negative); Color,Urine Yellow; Glucose,Urine (UA) Negative (Negative); Hyaline Casts,Urine 1 /lpf (0-2); Ketones,Urine Negative (Negative); Leukocyte Esterase,Urine Large (Negative); Nitrite,Urine Negative (Negative); PH, Urine 5.5 (5.0-8.0); Protein,Urine 1+ (Negative); RBC,Urine 9 /hpf (0-5); Specific Gravity,Urine 1.015 (1.001-1.035); Squamous Epithelial Cell,Urine <1 /hpf (0-4); Urobilinogen,Urine <2.0 mg/dL (<2.0); WBC,Urine 18 /hpf (0-5)
[2023-02-26] MEDS: IPRATROPIUM-ALBUTEROL 3 ML NEB INHALATION SCH ×3 (09:20→21:12)
[2023-02-26] MEDS: SYMBICORT 160-4.5 MCG INHALER INHALATION SCH ×2 (09:20→21:11)
[2023-02-26] MEDS: METOPROLOL TARTRATE 50 MG TAB PO SCH ×2 (09:59→21:56)
[2023-02-26] MEDS: allopurinoL 100 MG TAB PO SCH ×2 (09:59→19:41)
[2023-02-26] MEDS: MONTELUKAST 10 MG TAB PO SCH (09:59)
[2023-02-26] MEDS: FUROSEMIDE 40 MG TAB PO SCH (09:59)
[2023-02-26] MEDS: APIXABAN 5 MG TAB PO SCH ×2 (09:59→11:11)
[2023-02-26] MEDS: AMIODARONE 100 MG TAB PO SCH (09:59)
[2023-02-26] MEDS: GABAPENTIN 100 MG CAP PO SCH ×3 (09:59→21:50)
[2023-02-26] MEDS: DAPAGLIFLOZIN PROPANEDIOL 5 MG TABLET PO SCH (09:59)
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
[2023-02-26] MEDS: SODIUM CHLORIDE 0.9% 1,000 ML IV SCH (11:14)
--- NOTE | 2023-02-26 11:28 | P.PN ---
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 She presented to the emergency department with complaints of generalized weakness, intermittent chest pain, shortness of breath, and a headache. Patient reports she is scheduled for cardiac ablation on 03/05/[address] Stockton. Patient reports that her called the hospital today and Dr. Stockton told him that if she is having chest pain she should go to the hospital for evaluation so she came in today. Patient is very well-known to our services and was recently discharged from the hospital on 02/10/23 secondary to similar comp laints. She underwent full evaluation in the emergency department. Vital signs upon arrival show blood pressure 133/82, heart rate 118, respiratory rate 22, temp 98.8F, SpO2 of 99% on room air. EKG completed showing atrial fibrillation with RVR at 125 bpm. Chest x-ray reviewed and radiology report stating negative for acute cardiopulmonary process. CT head showing age related atrophic and ch ronic small vessel ischemic changes without acute intercranial process. Labs completed and reviewed. CBC showing mild ketoacidosis with WBC count 11.4. Coagulation profile showing elevated PT of 13.4, INR 1.3, and D-dimer elevated at 1.97, D-dimer is chronically elevated and currently at baseline. BMP revealing hyponatremia with sodium 130, hypokalemia with potassium of 3.4, metabolic acidosis with hypochloremia with chloride of 94, hypocarbia with bicarb of 21, elevated anion gap 15. BMP also consistent with patient's known chronic stage IV kidney disease with BUN of 30, creatinine 1.81, and GFR of 28 with baseline creatinine of 1.9. Troponin was negative at less than 0.012. ProBNP 3970 which is significantly improved from previous BNP of 11,800. Covid PCR, influenza A, influenza B, and RSV were negative. Patient was admitted under our services secondary to intermittent chest pain and atrial fibrillation with consultation to cardiology. Physical exam: Vital signs reviewed and stable. General: Nontoxic, no distress and appears stated age. Derm: Skin warm and dry, normal coloration for ethnicity. Head: Atraumatic, normocephalic and symmetric. Eyes: EOMs intact, no lid lag, and anicteric sclera Mouth: no lip lesions, mucus membranes moist Cardiovascular: Irregularly irregular, systolic murmur, positive posterior tibial pulses bilaterally, and cap refill < 2 seconds. Lungs: Respirations even, regular, and unlabored on room air. Lungs CTA bilaterally, no rhonchi, no rales, no wheezing, and no accessory muscle usage. Abdominal: soft, nontender to palpation, no guarding, no appreciable organomegaly Ext: ROM intact. No gross muscle atrophy, scant lower extremity edema, no contractures Neuro: Speech clear, face symmetrical and CN II-XII grossly intact with no noted focal neuro deficits Psych: Alert and oriented to person, place, and situation. Patient is somewhat of a poor historian. Appropriate and pleasant affect. Assessment and Plan of Care: Intermittent chest pain Paroxysmal atrial fibrillation, scheduled to undergo outpatient cardiac ab lation on 03/05/23 Chronic worsening generalized weakness/physical deconditioning, previously recommending correction facility and PT patient has declined and refused to allow physical therapy back into her home Chronic hypoxic respiratory failure home oxygen dependent COPD, not in acute exacerbation Stage IV chronic kidney disease, stable at baseline renal function -Cardiology consulted, discussed plan of care with rail switch operator patient scheduled to undergo cardiac cath tomorrow morning. -Telemetry monitoring -ProBNP 3970 -Troponins trended overnight and all were negative at less than 0.012, 0.012, and less than 0.012. -Cardiac diet -Discontinued Cardizem infusion as patient reports not taking her morning dose of medications and currently ventricular rate maintaining between 90s to 110"s. Order placed for patient to receive her missed dose of amiodarone now and i ncreased metoprolol to 50 mg twice a day. -Home medications reviewed and reordered patient to continue amiodarone 100 mg daily, Eliquis 5 mg twice daily, atorvastatin 20 mg nightly, Symbicort 2 puffs twice daily, Farxiga 5 mg daily, Neurontin 100 mg 3 times daily, levothyroxine 75 g daily, midodrine 10 mg 3 times daily, and Singulair 10 mg daily with scheduled DuoNeb's 4 times daily and as needed for shortness of breath and/or wheezing. Abnormal UTI -Urinalysis abnormal positive for protein, ketones, and leukocytosis with 9 RBCs and 18 WBCs. Not convincing for infection however patient does report urinary frequency and urgency and therefore will treat as UTI as patient is scheduled to undergo invasive procedure tomorrow for cardiac catheterization. History of closed head injury with memory impairment -Patient to continue with Zoloft 100 mg nightly and trazodone 200 mg nightly. -Patient to be provided with patient supportive care with assistance as needed. -Fall precautions. Data and imaging reviewed: -Urinalysis abnormal positive for protein, ketones, and leukocytosis with 9 RBCs and 18 WBCs -Labs completed and reviewed. CBC showing mild leukocytosis with WBC count of 10.69 and normocytic anemia with hemoglobin of 11.4. BMP slightly elevated but remains consistent with patient's known chronic kidney disease stage IV with BUN of 31.4, creatinine 2.2, and GFR of 24 with baseline creatinine around 1.92. -Vital signs reviewed. Blood pressure 98/58, heart rate 108, respiratory rate 18, temp 98.1F, SpO2 of 97% on 3 L. CODE STATUS: Full code DVT prophylaxis: Eliquis Anticipated discharge date: Tomorrow morning Anticipated discharge place: Home With palliative care, COPD navigator program and CHF navigator Patient was seen independently by Nurse Pracitioner. This document was prepared using [employer] dictation software. Please allow for errors in motorsports technician, while rare they do occur. Calixto Diaz NP rendered care for this patient independently, reviewed the findings and plan as documented in the note above. I did not physically speak with or examine the patient on this date. Objective - Vital Signs Vital signs: Vital Signs Temp 98.1 F 02/26/23 06:55 Pulse 108 H 02/26/23 06:55 Resp 16 02/26/23 07:52 BP 98/58 02/26/23 06:55 Pulse Ox 96 02/26/23 09:22 FiO2 Intake & Output 02/25/23 02/26/23 02/26/23 18:59 06:59 18:59 Output Total 0 Balance 0 Weight 78.018 kg 78.018 kg Output: Stool 0 Other: Voiding Method Toilet Incontinent # Voids 0 - Labs CBC & Chem 7: 03/01/23 03:51 11/27/23 03:51 Labs: Abnormal Lab Results - Last 24 Hours (Table) 02/25/23 02/25/23 02/25/23 Range/Units 13:51 13:51 15:43 WBC 11.4 H (3.8-10.6) k/uL RBC (4.10-5.20) X 10*6/uL Hgb (12.0-15.0) g/dL Hct (37.2-46.3) % MCHC (32.0-37.0) g/dL RDW (11.5-14.5) % Neutrophils # 9.7 H (1.3-7.7) k/uL Lymphocytes # 0.8 L (1.0-4.8) k/uL Eosinophils # (0.04-0.35) X 10*3/uL PT 13.4 H (10.0-12.5) sec INR 1.3 H (<1.2) D-Dimer 1.97 H (<0.60) mg/L FEU Sodium 130 L (137-145) mmol/L Potassium 3.4 L (3.5-5.1) mmol/L Chloride 94 L (98-107) mmol/L Carbon Dioxide 21 L (22-30) mmol/L Anion Gap (4.00-12.00) mmol/L BUN 30 H (7-17) mg/dL Creatinine 1.81 H (0.52-1.04) mg/dL Est GFR (CKD-EPI) (>=60) Total Bilirubin (0.3-1.2) mg/dL Albumin 3.2 L (3.5-5.0) g/dL Globulin (1.6-3.3) g/dL Albumin/Globulin Ratio (1.60-3.17) Ratio Urine Appearance (Clear) Urine Protein (Negative) Urine Blood (Negative) Ur Leukocyte Esterase (Negative) Urine RBC (0-5) /hpf Urine WBC (0-5) /hpf Urine Bacteria (None) /hpf 02/26/23 02/26/23 02/26/23 Range/Units 06:13 06:13 08:40 WBC 10.69 H (3.8-10.6) k/uL RBC 3.85 L (4.10-5.20) X 10*6/uL Hgb 11.4 L (12.0-15.0) g/dL Hct 36.3 L (37.2-46.3) % MCHC 31.4 L (32.0-37.0) g/dL RDW 15.4 H (11.5-14.5) % Neutrophils # 8.92 H (1.3-7.7) k/uL Lymphocytes # 0.68 L (1.0-4.8) k/uL Eosinophils # 0.52 H (0.04-0.35) X 10*3/uL PT (10.0-12.5) sec INR (<1.2) D-Dimer (<0.60) mg/L FEU Sodium (137-145) mmol/L Potassium (3.5-5.1) mmol/L Chloride (98-107) mmol/L Carbon Dioxide (22-30) mmol/L Anion Gap 15.80 H (4.00-12.00) mmol/L BUN 31.4 H (7-17) mg/dL Creatinine 2.2 H (0.52-1.04) mg/dL Est GFR (CKD-EPI) 24 L (>=60) Total Bilirubin 0.2 L (0.3-1.2) mg/dL Albumin 3.2 L (3.5-5.0) g/dL Globulin 3.4 H (1.6-3.3) g/dL Albumin/Globulin Ratio 0.94 L (1.60-3.17) Ratio Urine Appearance Cloudy H (Clear) Urine Protein 1+ H (Negative) Urine Blood Moderate H (Negative) Ur Leukocyte Esterase Large H (Negative) Urine RBC 9 H (0-5) /hpf Urine WBC 18 H (0-5) /hpf Urine Bacteria Many H (None) /hpf
[2023-02-26] MEDS: HYDROcodone/APAP 5-325MG 1 EACH TAB PO PRN ×2 (12:04→19:44)
[2023-02-26] MEDS: CYCLOBENZAPRINE 10 MG TAB PO PRN ×2 (12:04→21:56)
[2023-02-26] MEDS: LIDOCAINE 5% PATCH TOPICAL SCH (12:07)
[2023-02-26] MEDS ORDERED: FUROSEMIDE 20 MG TAB PO SCH (14:00)
[2023-02-26] MEDS: ATORVASTATIN 20 MG TAB PO SCH (19:41)
[2023-02-26] MEDS: SERTRALINE 100 MG TAB PO SCH (19:41)
[2023-02-27] MEDS: SODIUM CHLORIDE 0.9% 1,000 ML IV SCH ×2 (03:01→17:35)
[2023-02-27] MEDS: LEVOTHYROXINE 75 MCG TAB PO SCH (06:11)
[2023-02-27] MEDS: MIDODRINE 5 MG TAB PO SCH ×3 (06:11→17:34)
[2023-02-27] MEDS: HYDROcodone/APAP 5-325MG 1 EACH TAB PO PRN (06:12)
[2023-02-27] MEDS: AMIODARONE 100 MG TAB PO SCH (08:20)
[2023-02-27] MEDS: GABAPENTIN 100 MG CAP PO SCH ×3 (08:20→21:20)
[2023-02-27] MEDS: MONTELUKAST 10 MG TAB PO SCH (08:20)
[2023-02-27] MEDS: METOPROLOL TARTRATE 50 MG TAB PO SCH (08:20)
[2023-02-27] MEDS: allopurinoL 100 MG TAB PO SCH ×2 (08:20→21:20)
[2023-02-27] MEDS: SYMBICORT 160-4.5 MCG INHALER INHALATION SCH ×2 (08:34→20:43)
[2023-02-27] MEDS: IPRATROPIUM-ALBUTEROL 3 ML NEB INHALATION SCH ×5 (08:35→20:46)
[2023-02-27] MEDS: CYCLOBENZAPRINE 10 MG TAB PO PRN (10:51)
[2023-02-27] MEDS: FUROSEMIDE 40 MG TAB PO SCH (11:51)
[2023-02-27] MEDS: DAPAGLIFLOZIN PROPANEDIOL 5 MG TABLET PO SCH (11:51)
[2023-02-27] MEDS: LIDOCAINE 5% PATCH TOPICAL SCH (11:51)
[2023-02-27] MEDS ORDERED: SODIUM CHLORIDE 0.9% 1,000 ML IV ONE (14:15)
[2023-02-27 14:16] LABS: Glucose,Whole Blood 140 mg/dL (70-110)
--- NOTE | 2023-02-27 14:17 | P.PN ---
Subjective Progress Note Date: 02/27/23 Principal diagnosis: Shortness of breath The patient is a pleasant 67-year-old female patient who is known to our service from before with CAD and prior angioplasty as well as hypertension and dyslipidemia and paroxysmal atrial fibrillation and chronic kidney disease. She presented to the hospital because she has not been feeding well. She has been tired and fatigued and lately she has been experiencing increasing shortness of breath with exertion and relieved the chest discomfort with exertion as well. She was seen recently by myself in the office as an outpatient for a follow-up myocardial perfusion imaging stress test came in to be abnormal showing high risk features and she is scheduled to undergo a heart catheterization as an outpatient. During this admission she underwent a workup including EKG showing atrial fibrillation with nonspecific changes and troponin came in to be unremarkable. Her kidney function is abnormal and above her baseline. Beside that she underwent a UA and that came in to be abnormal showing possible UTI. The examination is remarkable for irregular rhythm with clear breathing sounds bilaterally and no edema was noted in the lower extremities. February [id number] The patient was seen and evaluated this morning. She is somewhat lethargic. Her pressure has been marginal. I'm going to decrease the dose of Lasix and also decrease the dose of metoprolol. She remains in atrial fibrillation with overall controlled heart rate. She is currently on antibiotic for possible sepsis. With the pressure being low I am going to transfer the patient to the intensive care unit. Consult an hand coremaker to see the patient. No blood work as of today and I'm going to obtain a CBC and BMP on her. Oral anticoagulation is on hold for potential heart catheterization on her tomorrow if the creatinine remains stable. The examination is remarkable for diminished breathing sounds bilaterally and irregular rhythm with no edema was noted. Assessment Chest discomfort and shortness of breath Persistent atrial fibrillation with overall controlled heart rate Acute on chronic renal failure Margin a low blood pressure/hypertension Coronary artery disease Multiple comorbid conditions Plan Continue antibiotic by the internal medicine Decrease the dose of Lasix Decrease the dose of metoprolol Continue IV fluid Transfer the patient to the intensive care unit Consult Dr. Briseno Follow-up with the patient Objective - Vital Signs Vital signs: Vital Signs Temp 98.3 F 02/27/23 13:45 Pulse 92 02/27/23 13:45 Resp 16 02/27/23 13:45 BP 87/57 02/27/23 13:45 Pulse Ox 98 11/25/23 13:45 FiO2 Intake & Output 02/26/23 02/27/23 02/27/23 18:59 06:59 18:59 Intake Total 177 Balance 177 Intake: Oral 177 Other: Voiding Method Toilet Toilet Diaper Diaper Incontinent # Voids 3 1 - Labs CBC & Chem 7: 02/26/23 06:13 02/26/23 06:13
--- NOTE | 2023-02-27 14:50 | P.PN ---
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 She presented to the emergency department with complaints of generalized weakness, intermittent chest pain, shortness of breath, and a headache. Patient reports she is scheduled for cardiac ablation on 03/05/[address] Stockton. Patient reports that her called the hospital today and Dr. Stockton told him that if she is having chest pain she should go to the hospital for evaluation so she came in today. Patient is very well-known to our services and was recently discharged from the hospital on 02/10/23 secondary to similar comp laints. She underwent full evaluation in the emergency department. Vital signs upon arrival show blood pressure 133/82, heart rate 118, respiratory rate 22, temp 98.8F, SpO2 of 99% on room air. EKG completed showing atrial fibrillation with RVR at 125 bpm. Chest x-ray reviewed and radiology report stating negative for acute cardiopulmonary process. CT head showing age related atrophic and ch ronic small vessel ischemic changes without acute intercranial process. Labs completed and reviewed. CBC showing mild ketoacidosis with WBC count 11.4. Coagulation profile showing elevated PT of 13.4, INR 1.3, and D-dimer elevated at 1.97, D-dimer is chronically elevated and currently at baseline. BMP revealing hyponatremia with sodium 130, hypokalemia with potassium of 3.4, metabolic acidosis with hypochloremia with chloride of 94, hypocarbia with bicarb of 21, elevated anion gap 15. BMP also consistent with patient's known chronic stage IV kidney disease with BUN of 30, creatinine 1.81, and GFR of 28 with baseline creatinine of 1.9. Troponin was negative at less than 0.012. ProBNP 3970 which is significantly improved from previous BNP of 11,800. Covid PCR, influenza A, influenza B, and RSV were negative. Patient was admitted under our services secondary to intermittent chest pain and atrial fibrillation with consultation to cardiology. Troponins trended overnight and all were negative at less than 0.012, 0.012, and less than 0.012. Cardiology evaluating and planning to take patient for cardiac cath. Urinalysis was obtained and was abnormal showing positive for protein, ketones, and leukocytosis with 9 RBCs and 18 WBCs. Not entirely convincing for infection, however patient does report urinary frequency and chronic urgency and therefore we will treat as UTI as charan ent is scheduled to undergo invasive procedure for cardiac catheterization. Physical exam: Patient seen and fully evaluated at bedside this morning. Upon arrival to the room patient was sitting up in bed eating oatmeal. Patient was visiting with her at this time. Patient reports frustration over waiting/postponing of cardiac cath until later today. Patient stating that she wants to go home today and did not plan on being stuck in the hospital this long. Patient currently denies having any chest pain or complaints. Vital signs reviewed and blood pressures soft, but this is common for patient and she is on midodrine 10 mg 3 times daily and metoprolol was increased to 50 mg twice daily from 25 mg twice daily secondary to patient's RVR. General: Nontoxic, no distress and appears stated age. Derm: Skin warm and dry, normal coloration for ethnicity. Head: Atraumatic, normocephalic and symmetric. Eyes: EOMs intact, no lid lag, and anicteric sclera Mouth: no lip lesions, mucus membranes moist Cardiovascular: Irregularly irregular, systolic murmur, positive posterior tibial pulses bilaterally, and cap refill < 2 seconds. Lungs: Respirations even, regular, and unlabored on room air. Lungs CTA bilaterally, no rhonchi, no rales, no wheezing, and no accessory muscle usage. Abdominal: soft, nontender to palpation, no guarding, no appreciable organomegaly Ext: ROM intact. No gross muscle atrophy, scant lower extremity edema, no contractures Neuro: Speech clear, face symmetrical and CN II-XII grossly intact with no noted focal neuro deficits Psych: Alert and oriented to person, place, and situation. Patient is somewhat of a poor historian. Appropriate and pleasant affect. Assessment and Plan of Care: Intermittent chest pain Paroxysmal atrial fibrillation, currently with uncontrolled ventricular rate ranging from 90s to 130s Chronic worsening generalized weakness/physical deconditioning, previously recommending correction facility and PT patient has declined and refused to allow physical therapy back into her home Chronic hypoxic respiratory failure home oxygen dependent COPD, not in acute exacerbation Acute kidney injury on Stage IV chronic kidney disease -Cardiology consulted, planning to take patient for cardiac cath later today. -Patient to remain on Telemetry monitoring -ProBNP 3970 -Troponins trended and all were negative at less than 0.012, 0.012, and less than 0.012. -Lasix held at this time secondary to hypotension and elevated renal function -Creatinine currently 2.2 baseline creatinine of 1.9. -Patient otherwise to continue amiodarone 100 mg daily, Eliquis 5 mg twice daily, atorvastatin 20 mg nightly, Symbicort 2 puffs twice daily, Farxiga 5 mg daily, Neurontin 100 mg 3 times daily, levothyroxine 75 g daily, midodrine 10 mg 3 times daily, and Singulair 10 mg daily with scheduled DuoNeb's 4 times daily and as needed for shortness of breath and/or wheezing. Abnormal UTI -Urinalysis abnormal positive for protein, ketones, and leukocytosis with 9 RBCs and 18 WBCs. -Not convincing for infection however patient does report urinary frequency and urgency and therefore will treat as UTI as patient is scheduled to undergo invasive procedure tomorrow for cardiac catheterization. History of closed head injury with memory impairment -Patient to continue with Zoloft 100 mg nightly and trazodone 200 mg nightly. -Patient to be provided with patient supportive care with assistance as needed. -Fall precautions. Data and imaging reviewed: -Vital signs reviewed. Blood pressure 88/70, heart rate 127, respiratory rate 16, temp 99.0F, SpO2 100% on 2 L. Patient was given midodrine 10 mg by mouth. CODE STATUS: Full code DVT prophylaxis: Eliquis Anticipated discharge date: Tomorrow morning Anticipated discharge place: Home With palliative care, COPD navigator program and CHF navigator Patient was seen independently by Nurse Pracitioner. This document was prepared using [employer] dictation software. Please allow for errors in manager research development, while rare they do occur. Calixto Diaz NP rendered care for this patient independently, reviewed the findings and plan as documented in the note above. I did not physically speak with or examine the patient on this date. Objective - Vital Signs Vital signs: Vital Signs Temp 99.0 F 02/27/23 07:00 Pulse 110 H 02/27/23 08:37 Resp 16 02/27/23 07:00 BP 88/70 02/27/23 07:00 Pulse Ox 96 02/27/23 08:39 FiO2 Intake & Output 02/26/23 02/27/23 02/27/23 18:59 06:59 18:59 Intake Total 177 Balance 177 Intake: Oral 177 Other: Voiding Method Toilet Diaper Incontinent # Voids 3 1 - Labs CBC & Chem 7: 03/01/23 03:51 03/01/23 03:51 Labs: Abnormal Lab Results - Last 24 Hours (Table) 02/26/23 02/26/23 Range/Units 06:13 08:40 WBC 10.69 H (4.50-10.00) X 10*3/uL RBC 3.85 L (4.10-5.20) X 10*6/uL Hgb 11.4 L (12.0-15.0) g/dL Hct 36.3 L (37.2-46.3) % MCHC 31.4 L (32.0-37.0) g/dL RDW 15.4 H (11.5-14.5) % Neutrophils # 8.92 H (1.80-7.70) X 10*3/uL Lymphocytes # 0.68 L (0.90-5.00) X 10*3/uL Eosinophils # 0.52 H (0.04-0.35) X 10*3/uL Urine Appearance Cloudy H (Clear) Urine Protein 1+ H (Negative) Urine Blood Moderate H (Negative) Ur Leukocyte Esterase Large H (Negative) Urine RBC 9 H (0-5) /hpf Urine WBC 18 H (0-5) /hpf Urine Bacteria Many H (None) /hpf
[2023-02-27 15:30] LABS: Glucose,Whole Blood 117 mg/dL (70-110)
[2023-02-27 15:35] LABS: ALT 16 U/L (4-34); AST 25 U/L (14-36); African American GFR (CKD) 33 (>60 ml/min/1.73 sqM); Albumin/Globulin Ratio 0.9; Alkaline Phosphatase 95 U/L (38-126); Anion Gap 10 mmol/L; Blood Urea Nitrogen 31 mg/dL (7-17); Calcium 8.7 mg/dL (8.4-10.2); Carbon Dioxide 25 mmol/L (22-30); Chloride 102 mmol/L (98-107); Globulin 3.5 g/dL; Glucose 112 mg/dL (74-99); Magnesium 1.7 mg/dL (1.6-2.3); Non-African American GFR(CKD) 29 (>60 ml/min/1.73 sqM); Potassium 3.5 mmol/L (3.5-5.1); Sodium 137 mmol/L (137-145); Total Bilirubin 0.3 mg/dL (0.2-1.3); Total Protein 6.5 g/dL (6.3-8.2)
[2023-02-27 15:36] LABS: Basophils % (A) 0 %; Eosinophils # (A) 0.4 k/uL (0-0.7); Eosinophils % (A) 5 %; HCT 36.9 % (34.0-46.0); Hypochromasia Slight; Lymphocytes % (A) 12 %; MCH 30.9 pg (25.0-35.0); MCHC 32.5 g/dL (31.0-37.0); MCV 94.9 fL (80.0-100.0); Mean Platelet Volume 8.6; Monocytes # (A) 0.3 k/uL (0-1.0); Monocytes % (A) 4 %; Neutrophils # (A) 6.4 k/uL (1.3-7.7); Neutrophils % (A) 78 %; Platelet Count 239 k/uL (150-450); RBC 3.89 m/uL (3.80-5.40); RDW 15.6 % (11.5-15.5); WBC 8.2 k/uL (3.8-10.6)
--- NOTE | 2023-02-27 16:16 | XR ---
EXAMINATION TYPE: XR chest 1V portable DATE OF EXAM: 02/27/2023 COMPARISON: 02/25/2023 HISTORY: CHF TECHNIQUE: Single frontal view of the chest is obtained. FINDINGS: There is no change in the moderate cardiomegaly and diffuse interstitial infiltrates. Ther e is no pneumothorax or large pleural effusion. The osseous structures are intact. IMPRESSION: Acute cardiopulmonary disease with no interval change.
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
[2023-02-27] MEDS: METOPROLOL TARTRATE 25 MG TAB PO SCH ×2 (17:34→21:20)
[2023-02-27] MEDS: ACETAMINOPHEN TAB 325 MG TAB PO PRN (20:03)
[2023-02-27] MEDS: SERTRALINE 100 MG TAB PO SCH (21:20)
[2023-02-27] MEDS: ATORVASTATIN 20 MG TAB PO SCH (21:20)
[2023-02-28] MEDS: NOREPINEPHRINE 4 MG in SODIUM CHLORIDE 0.9% 250 ML IV SCH (01:15)
[2023-02-28 01:40] LABS: Glucose,Whole Blood 115 mg/dL (70-110)
[2023-02-28] MEDS: SODIUM CHLORIDE 0.9% 1,000 ML IV SCH (02:15)
[2023-02-28] MEDS: LEVOTHYROXINE 75 MCG TAB PO SCH (07:01)
[2023-02-28 07:25] LABS: HCT 35.3 % (34.0-46.0); HGB 11.4 gm/dL (11.4-16.0); Hypochromasia Moderate; MCH 30.8 pg (25.0-35.0); MCHC 32.1 g/dL (31.0-37.0); MCV 95.8 fL (80.0-100.0); Mean Platelet Volume 7.9; Platelet Count 278 k/uL (150-450); RBC 3.69 m/uL (3.80-5.40); RDW 15.7 % (11.5-15.5); WBC 9.5 k/uL (3.8-10.6)
[2023-02-28] MEDS: SYMBICORT 160-4.5 MCG INHALER INHALATION SCH ×2 (07:40→19:33)
[2023-02-28] MEDS: IPRATROPIUM-ALBUTEROL 3 ML NEB INHALATION SCH ×3 (07:41→19:33)
[2023-02-28 07:53] LABS: ALT 13 U/L (4-34); AST 22 U/L (14-36); African American GFR (CKD) 34 (>60 ml/min/1.73 sqM); Albumin 2.8 g/dL (3.5-5.0); Alkaline Phosphatase 104 U/L (38-126); Anion Gap 10 mmol/L; Blood Urea Nitrogen 27 mg/dL (7-17); Calcium 8.7 mg/dL (8.4-10.2); Carbon Dioxide 22 mmol/L (22-30); Chloride 104 mmol/L (98-107); Glucose 106 mg/dL (74-99); Magnesium 1.5 mg/dL (1.6-2.3); Non-African American GFR(CKD) 29 (>60 ml/min/1.73 sqM); Potassium 3.6 mmol/L (3.5-5.1); Sodium 136 mmol/L (137-145); Total Bilirubin 0.3 mg/dL (0.2-1.3); Total Protein 6.3 g/dL (6.3-8.2)
[2023-02-28] MEDS ORDERED: FUROSEMIDE 10 MG/ML 4 ML VIAL IV STA (08:44)
[2023-02-28] MEDS ORDERED: FUROSEMIDE 20 MG TAB PO SCH (09:00)
[2023-02-28] MEDS: MAGNESIUM SULFATE-D5W PMX 1 GM in DEXTROSE/WATER 1 100ML.BAG IVPB SCH ×2 (09:12→11:06)
[2023-02-28] MEDS: allopurinoL 100 MG TAB PO SCH ×2 (09:13→21:25)
[2023-02-28] MEDS: METOPROLOL TARTRATE 25 MG TAB PO SCH ×3 (09:13→21:25)
[2023-02-28] MEDS: GABAPENTIN 100 MG CAP PO SCH ×3 (09:13→21:25)
[2023-02-28] MEDS: MONTELUKAST 10 MG TAB PO SCH (09:13)
[2023-02-28] MEDS: AMIODARONE 100 MG TAB PO SCH (09:14)
[2023-02-28] MEDS: DAPAGLIFLOZIN PROPANEDIOL 5 MG TABLET PO SCH (09:14)
[2023-02-28] MEDS: MIDODRINE 5 MG TAB PO SCH ×3 (09:14→17:15)
--- NOTE | 2023-02-28 09:15 | XR ---
EXAMINATION TYPE: XR chest 1V portable DATE OF EXAM: 02/28/2023 5:26 AM CLINICAL INDICATION:Female, 67 years old with history of pulmonary status; H COMPARISON: Chest radiograph 02/27/2023 TECHNIQUE: XR chest 1V portable Frontal view of the chest. FINDINGS: Lungs/Pleura: Overall stable appearance of bilateral diffuse interstitial opacities with mild progres lala of consolidative changes within the left midlung. No evidence of large effusion or pneumothorax. Pulmonary vascularity: Mild pulmonary vascular congestion. Heart/mediastinum: Cardiomediastinal silhouette is enlarged and stable. Musculoskeletal: No acute osseous pathology. IMPRESSION: Redemonstration of cardiomegaly with diffuse bilateral pulmonary infiltrates, with mild interval prog ression in left midlung disease.
[2023-02-28] MEDS: FUROSEMIDE 100 MG in SODIUM CHLORIDE 0.9% 90 ML IV SCH ×2 (09:34→19:30)
--- NOTE | 2023-02-28 11:19 | P.PN ---
Subjective Progress Note Date: 02/28/23 Hospital Course: Patient is a very pleasant 67-year-old female with a past medical history of chronic hypoxic respiratory failure secondary to COPD on home oxygen at 2 L at all times, CAD with stent, paroxysmal atrial fibrillation on anticoagulation with Eliquis, HFpEF, hypertension, hyperlipidemia, chronic kidney disease stage IV, hypothyroidism, and history of a closed head injury with deficit a residual memory impairment. She presented to the emergency department with complaints of generalized weakness, intermittent chest pain, shortness of breath, and a headache. Patient was scheduled for cardiac ablation on 03/05/[address] Stockton. Vital signs upon arrival show blood pressure 133/82, heart rate 118, respiratory rate 22, temp 98.8F, SpO2 of 99% on room air. EKG completed showing atrial fibrillation with RVR at 125 bpm. Chest x-ray showed no acute cardiopulmonary process. CT head showing age related atrophic and chronic small vessel ischemic changes without acute intercranial process. CBC showing mild ketoacidosis with WBC count 11.4. Coagulation profile showing elevated PT of 13.4, INR 1.3, and D-dimer elevated at 1.97, D-dimer is chronically elevated and currently at baseline. BMP revealing hyponatremia with sodium 130, hypokalemia with potassium of 3.4, metabolic acidosis with hypochloremia with chloride of 94, hypocarbia with bicarb of 21, elevated anion gap 15. BMP also consistent with patient's known chronic stage IV kidney disease with BUN of 30, creatinine 1.81, and GFR of 28 with baseline creatinine of 1.9. Troponin was negative at less th an 0.012. ProBNP 3970 which is significantly improved from previous BNP of 11,800. Covid PCR, influenza A, influenza B, and RSV were negative. Patient was admitted under our services secondary to intermittent chest pain and atrial fibrillation with consultation to cardiology. Troponins trended overnight and all were negative at less than 0.012, 0.012, and less than 0.012. Cardiology evaluating and planning to take patient for cardiac cath. Urinalysis was obtained and was abnormal showing positive for protein, ketones, and leukocytosis with 9 RBCs and 18 WBCs. Not entirely convincing for infection, however patient does report urinary frequency and chronic urgency and therefore we will treat as UTI as patient is scheduled to undergo invasive procedure for cardiac catheterization. Patient became hypotensive on 02/27. Was transferred to medical ICU. Was briefly on norepinephrine. Subjective: Patient seen and examined at bedside. No acute events overnight. Still tachycardic and short of breath. Denies any chest pain. Pertinent positives and negatives as discussed above, a complete review of systems was performed and all other systems are negative. Vitals Signs Reviewed. General: nontoxic, no distress, appears at stated age Derm: warm, dry Head: atraumatic, normocephalic, symmetric Eyes: EOMI, no lid lag, anicteric sclera Mouth: no lip lesion, mucus membranes moist Cardiovascular: S1S2 irregular, tachycardic, systolic murmur Lungs: Bibasilar rales , no accessory muscle use, supplemental oxygen Abdominal: soft, nontender to palpation, no guarding, no appreciable organomegaly Ext: no gross muscle atrophy, no edema, no contractures Neuro: CN II-XI grossly intact, no focal neuro deficits Psych: Alert, oriented, appropriate affect Data Reviewed Today: Pertinent Labs: WBC 9.5, hemoglobin 11.4, platelet 278, sodium 136, potassium 3.6, creatinine 1.75, blood sugars range between 106-117, magnesium 1.5, calcitonin 0.26 Imaging: Chest x-ray and apparently interpreted, small pleural effusion on the right, interstitial opacities bilaterally. Assessment and Plan: Active: Paroxysmal atrial fibrillation with RVR Acute on chronic diastolic CHF Acute on chronic hypoxic respiratory failure History of CAD status post stent Cardiogenic shock, resolved Urinary tract infection Acute on chronic renal failure -Pulmonology note reviewed, continue bronchodilators, wean supplemental oxygen, 40 IV Lasix given -Patient now started on Lasix drip at 10 mg per hour, monitor electrolytes daily -IV fluids discontinued -Cardiology following, currently on metoprolol 25 oral 3 times a day, amiodarone 100 mg daily, may consider cardiac cath once renal function improves, patient may also need ablation. -On midodrine 10 mg 3 times a day -Currently off of vasopressors -Continue IV ceftriaxone 2 g every 24 hours -Monitor urine output, BMP and magnesium level tomorrow -Her A1c is 5.7, Farxiga discontinued for now, may be contributing to her urinary frequency Chronic: History of PE/DVT History of VDRF requiring tracheostomy, subsequent removal Debility Hypothyroidism Depression/anxiety DVT ppx: SCDs Code status: Full code Anticipated discharge place: Pending clinical course Anticipated discharge time: Pending clinical course Objective - Vital Signs Vital signs: Vital Signs Temp 98.6 F 02/28/23 09:00 Pulse 122 H 02/28/23 11:00 Resp 20 02/28/23 11:00 BP 108/76 02/28/23 11:00 Pulse Ox 90 L 02/28/23 11:00 FiO2 Intake & Output 02/27/23 02/28/23 02/28/23 18:59 06:59 18:59 Intake Total 200 1165.100 375 Output Total 900 0 Balance 200 265.100 375 Weight 79.5 kg Intake: IV 825 275 KVO 40 Sodium Chloride 0.9% 1, 825 185 000 ml @ 75 mls/hr IV . [id number] [facility] Rx#:[id number] cefTRIAXone 2 gm In 50 Sodium Chloride 0.9% 50 ml @ 100 mls/hr IVPB Q24HR [facility] Rx#:[id number] Intake, IV Titration 70.100 Amount Norepinephrine 4 mg In 70.100 Sodium Chloride 0.9% 250 ml @ 0.03 MCG/KG/MIN 8. 917 mls/hr IV .Q24H [facility] Rx#:[id number] Oral 200 270 100 Output: Urine 900 0 Other: Voiding Method External Catheter External Catheter # Voids 2 - Labs CBC & Chem 7: 02/28/23 06:47 02/28/23 06:47 Labs: Abnormal Lab Results - Last 24 Hours (Table) 02/27/23 02/27/23 02/27/23 Range/Units 14:13 15:04 15:04 RBC (3.80-5.40) m/uL RDW 15.6 H (11.5-15.5) % Sodium (137-145) mmol/L BUN 31 H (7-17) mg/dL Creatinine 1.78 H (0.52-1.04) mg/dL Glucose 112 H (74-99) mg/dL POC Glucose (mg/dL) 140 H (70-110) mg/dL Magnesium (1.6-2.3) mg/dL Albumin 3.0 L (3.5-5.0) g/dL Procalcitonin (0.02-0.09) ng/mL 02/27/23 02/27/23 02/28/23 Range/Units 15:27 17:47 01:39 RBC (3.80-5.40) m/uL RDW (11.5-15.5) % Sodium (137-145) mmol/L BUN (7-17) mg/dL Creatinine (0.52-1.04) mg/dL Glucose (74-99) mg/dL POC Glucose (mg/dL) 117 H 115 H (70-110) mg/dL Magnesium (1.6-2.3) mg/dL Albumin (3.5-5.0) g/dL Procalcitonin 0.26 H (0.02-0.09) ng/mL 02/28/23 02/28/23 Range/Units 06:47 06:47 RBC 3.69 L (3.80-5.40) m/uL RDW 15.7 H (11.5-15.5) % Sodium 136 L (137-145) mmol/L BUN 27 H (7-17) mg/dL Creatinine 1.75 H (0.52-1.04) mg/dL Glucose 106 H (74-99) mg/dL POC Glucose (mg/dL) (70-110) mg/dL Magnesium 1.5 L (1.6-2.3) mg/dL Albumin 2.8 L (3.5-5.0) g/dL Procalcitonin (0.02-0.09) ng/mL
[2023-02-28] MEDS ORDERED: ZINC OXIDE PASTE (Z-GUARD) 1 APPLIC APPLIC TOPICAL PRN (12:04)
[2023-02-28] MEDS: LIDOCAINE 5% PATCH TOPICAL SCH (12:47)
[2023-02-28] MEDS ORDERED: Potassium Replacement Protocol 1 EACH MISC MISCELLANE PRN (12:52)
[2023-02-28] MEDS ORDERED: POTASSIUM BICARBONATE/CIT AC 20 MEQ TABLET.EFF NG-TUBE SCH (13:00)
--- NOTE | 2023-02-28 13:52 | P.PN ---
Subjective Progress Note Date: 02/28/23 Principal diagnosis: Acute on chronic hypoxic respiratory failure, multifactorial secondary to acute on chronic diastolic congestive heart failure, underlying COPD, with acute exac erbation This is a pleasant 67-year-old female who is had multiple readmissions to the hospital. 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 She had been on the selective care unit. Today she developed hypotension, atrial fibrillation with a rapid ventricular response increasing shortness of breath cough and congestion and was transferred to the intensive care unit. She is seen today in consultation. She is quite weak and debilitated. Her daughter is at the bedside. She is currently maintaining O2 saturations in the upper 90s on 2 L/m per nasal cannula. Blood pressure 80/50. Heart rate 109. Afebrile. Chest x- ray reveals moderate cardiomegaly with diffuse interstitial infiltrates. Count 8.2. Hemoglobin 12.0. Platelets 239. Sodium 137. Potassium 3.5. Bicarb 25. BUN 31. Creatinine 1.78. Glucose 112. Urinalysis cloudy with moderate blood and large leukocyte esterase and high WBCs with many bacteria. She is currently on DuoNeb inhalations, Symbicort, Singulair and ceftriaxone. Anticoagulation on hold for possible heart catheterization tomorrow. Patient was reevaluated today on 02/28/23 patient is still in the ICU, I saw her yesterday, overnight the patient had worsening atrial fibrillation with RVR, remains poorly controlled, she required norepinephrine last night but this was discontinued this morning. Patient developed worsening congestive heart failure with interstitial edema as noted on the chest x-ray today, hence I recommended that we start the patient on Lasix drip at 10 mg per hour cut down her IV fluid to KVO, continue patient on ceftriaxone since the Procrit started level is 0.26 today my clinical suspicion for pneumonia is rather low, but it is hard to tell based on the chest x-ray findings since the chest x-ray is showing mostly bi lateral interstitial edema. Patient seems to be comfortable, she is not in distress, she is on 3 L nasal cannula but on physical examination she had significant crackles or rhonchi and wheezes bilaterally. And hoping the Lasix drip will improve her pulmonary symptoms WBC count today is 10.5 hemoglobin is 11.4 basic metabolic profile is normal BUN is 27 creatinine 1.75, pro-calcitonin level is 0.26, patient is empirically on Rocephin. Objective - Vital Signs Vital signs: Vital Signs Temp 98.0 F 02/28/23 12:30 Pulse 122 H 02/28/23 13:30 Resp 11 L 02/28/23 13:30 BP 85/66 02/28/23 13:30 Pulse Ox 91 L 02/28/23 13:30 FiO2 Intake & Output 02/27/23 02/28/23 02/28/23 18:59 06:59 18:59 Intake Total 200 1165.100 415 Output Total 900 600 Balance 200 265.100 -185 Weight 79.5 kg Intake: IV 825 315 KVO 80 Sodium Chloride 0.9% 1, 825 185 000 ml @ 75 mls/hr IV . [id number] [facility] Rx#:[id number] cefTRIAXone 2 gm In 50 Sodium Chloride 0.9% 50 ml @ 100 mls/hr IVPB Q24HR [facility] Rx#:[id number] Intake, IV Titration 70.100 Amount Norepinephrine 4 mg In 70.100 Sodium Chloride 0.9% 250 ml @ 0.03 MCG/KG/MIN 8. 917 mls/hr IV .Q24H [facility] Rx#:[id number] Oral 200 270 100 Output: Urine 900 600 Other: Voiding Method External Catheter External Catheter # Voids 2 1 - Exam Physical Exam: Revealed a 67-year-old female in no distress on few liters nasal cannula/3 L HEENT:[Neck is supple.] [No neck masses.] [No thyromegaly.] [No JVD.] Chest: [Diffuse crackles or rhonchi and wheezes bilaterally. Cardiac Exam: Irregular irregular rhythm. [Normal S1 and S2, no S3 gallop, over 6 systolic murmur thought the precordium Abdomen: [Soft, nontender, no megaly, no rebound, no guarding, normal bowel sounds.] Extremities: [No clubbing, trace of bipedal edema, no cyanosis.] Neurological Exam: [No focal neurologic deficit.] Alert and oriented 3. Psychiatric: Normal mood, affect and normal mental status examination Skin: No rashes - Labs CBC & Chem 7: 02/28/23 06:47 02/28/23 06:47 Labs: Abnormal Lab Results - Last 24 Hours (Table) 02/27/23 02/27/23 02/27/23 Range/Units 14:13 15:04 15:04 RBC (3.80-5.40) m/uL RDW 15.6 H (11.5-15.5) % Sodium (137-145) mmol/L BUN 31 H (7-17) mg/dL Creatinine 1.78 H (0.52-1.04) mg/dL Glucose 112 H (74-99) mg/dL POC Glucose (mg/dL) 140 H (70-110) mg/dL Magnesium (1.6-2.3) mg/dL Albumin 3.0 L (3.5-5.0) g/dL Procalcitonin (0.02-0.09) ng/mL 02/27/23 02/27/23 02/28/23 Range/Units 15:27 17:47 01:39 RBC (3.80-5.40) m/uL RDW (11.5-15.5) % Sodium (137-145) mmol/L BUN (7-17) mg/dL Creatinine (0.52-1.04) mg/dL Glucose (74-99) mg/dL POC Glucose (mg/dL) 117 H 115 H (70-110) mg/dL Magnesium (1.6-2.3) mg/dL Albumin (3.5-5.0) g/dL Procalcitonin 0.26 H (0.02-0.09) ng/mL 02/28/23 02/28/23 Range/Units 06:47 06:47 RBC 3.69 L (3.80-5.40) m/uL RDW 15.7 H (11.5-15.5) % Sodium 136 L (137-145) mmol/L BUN 27 H (7-17) mg/dL Creatinine 1.75 H (0.52-1.04) mg/dL Glucose 106 H (74-99) mg/dL POC Glucose (mg/dL) (70-110) mg/dL Magnesium 1.5 L (1.6-2.3) mg/dL Albumin 2.8 L (3.5-5.0) g/dL Procalcitonin (0.02-0.09) ng/mL Assessment and Plan Assessment: Impression: Acute on chronic hypoxic respiratory failure, multifactorial Acute on chronic diastolic congestive heart failure Acute exacerbation of COPD Underlying pneumonia is not entirely ruled out but felt to be less likely Atrial fibrillation with RVR Recent urinary tract infection secondary to Klebsiella pneumoniae History of DVT and pulmonary embolism Chronic cor pulmonale Chronic kidney disease stage III Coronary arteriosclerosis and previous stent placement Recommendation: Continue present treatment plan including Lasix infusion at 10 mg per hour continue oral amiodarone Continue metoprolol 25 mg by mouth 3 times a day Continue bronchodilators including Symbicort and DuoNeb Add Solu-Medrol, patient is normally maintained on 5 mg of prednisone continue to monitor the patient in the ICU Cardiology to decide regarding anticoagulation therapy for her atrial fibrillation. Patient was supposed to undergo cardiac catheterization, however considering her renal status it is best to wait at this point and avoid cardiac catheterization CODE STATUS is full code. Strictly monitor I's and O's since the patient is now on Lasix drip Continue to monitor daily labs Use norepinephrine if necessary for low blood pressure Prognosis is poor and guarded We will continue to follow Time with Patient: Less than 30
[2023-02-28] MEDS ORDERED: AMIODARONE 100 MG TAB PO STA (14:45)
--- NOTE | 2023-02-28 14:48 | P.PN ---
Subjective Progress Note Date: 02/28/23 Principal diagnosis: Shortness of breath The patient is a pleasant 68-year-old female patient who is known to our service from before with CAD and prior angioplasty as well as hypertension and dyslipidemia and paroxysmal atrial fibrillation and chronic kidney disease. She presented to the hospital because she has not been feeding well. She has been tired and fatigued and lately she has been experiencing increasing shortness of breath with exertion and relieved the chest discomfort with exertion as well. She was seen recently by myself in the office as an outpatient for a follow-up myocardial perfusion imaging stress test came in to be abnormal showing high risk features and she is scheduled to undergo a heart catheterization as an outpatient. During this admission she underwent a workup including EKG showing atrial fibrillation with nonspecific changes and troponin came in to be unremarkable. Her kidney function is abnormal and above her baseline. Beside that she underwent a UA and that came in to be abnormal showing possible UTI. The examination is remarkable for irregular rhythm with clear breathing sounds bilaterally and no edema was noted in the lower extremities. February 272022 The patient was seen and evaluated this morning. She is somewhat lethargic. Her pressure has been marginal. I'm going to decrease the dose of Lasix and also decrease the dose of metoprolol. She remains in atrial fibrillation with overall controlled heart rate. She is currently on antibiotic for possible sepsis. With the pressure being low I am going to transfer the patient to the intensive care unit. Consult an complaint investigator to see the patient. No blood work as of today and I'm going to obtain a CBC and BMP on her. Oral anticoagulation is on hold for potential heart catheterization on her tomorrow if the creatinine remains stable. The examination is remarkable for diminished breathing sounds bilaterally and irregular rhythm with no edema was noted. 02/28/2023 The patient was seen and evaluated this morning. She was transferred to the intensive care unit from the observation unit after she was hypotensive and required norepinephrine for about 12 hours and currently she is off norepinephrine. As a matter of fact her pressure has been stable. She remains in atrial fibrillation with RVR. Normally she is in sinus mechanism. Beside that she is in failure. The chest x-ray showed findings consistent with pulmonary vascular congestions. She was started on Lasix drip. The kidney function remained stable. I am going to increase the dose of amiodarone. Restart the patient back on oral anticoagulation. Continue Lasix IV. Continue monitoring the kidney function and electrolytes. Holding on proceeding with coronary angiogram at this point. Assessment Chest discomfort and shortness of breath Persistent atrial fibrillation with overall controlled heart rate Acute on chronic renal failure Margin a low blood pressure/hypertension Coronary artery disease Heart failure Plan Continue the current dose of Lasix IV Continue the current dose of beta lucinda with metoprolol Increase the dose of amiodarone Restart the patient back on oral anticoagulation Monitor the kidney function and electrolytes Follow-up with the patient Objective - Vital Signs Vital signs: Vital Signs Temp 98.0 F 02/28/23 12:30 Pulse 134 H 02/28/23 14:00 Resp 14 02/28/23 14:00 BP 116/89 02/28/23 14:00 Pulse Ox 93 L 02/28/23 14:00 FiO2 Intake & Output 02/27/23 02/28/23 02/28/23 18:59 06:59 18:59 Intake Total 200 1165.100 535 Output Total 900 600 Balance 200 265.100 -65 Weight 79.5 kg Intake: IV 825 335 KVO 100 Sodium Chloride 0.9% 1, 825 185 000 ml @ 75 mls/hr IV . [id number] [facility] Rx#:[id number] cefTRIAXone 2 gm In 50 Sodium Chloride 0.9% 50 ml @ 100 mls/hr IVPB Q24HR [facility] Rx#:[id number] Intake, IV Titration 70.100 Amount Norepinephrine 4 mg In 70.100 Sodium Chloride 0.9% 250 ml @ 0.03 MCG/KG/MIN 8. 917 mls/hr IV .Q24H [facility] Rx#:[id number] Oral 200 270 200 Output: Urine 900 600 Other: Voiding Method External Catheter External Catheter # Voids 2 1 - Labs CBC & Chem 7: 02/28/23 06:47 02/28/23 06:47 Labs: Abnormal Lab Results - Last 24 Hours (Table) 02/27/23 02/27/23 02/27/23 Range/Units 15:04 15:04 15:27 RBC (3.80-5.40) m/uL RDW 15.6 H (11.5-15.5) % Sodium (137-145) mmol/L BUN 31 H (7-17) mg/dL Creatinine 1.78 H (0.52-1.04) mg/dL Glucose 112 H (74-99) mg/dL POC Glucose (mg/dL) 117 H (70-110) mg/dL Magnesium (1.6-2.3) mg/dL Albumin 3.0 L (3.5-5.0) g/dL Procalcitonin (0.02-0.09) ng/mL 02/27/23 02/28/23 02/28/23 Range/Units 17:47 01:39 06:47 RBC 3.69 L (3.80-5.40) m/uL RDW 15.7 H (11.5-15.5) % Sodium (137-145) mmol/L BUN (7-17) mg/dL Creatinine (0.52-1.04) mg/dL Glucose (74-99) mg/dL POC Glucose (mg/dL) 115 H (70-110) mg/dL Magnesium (1.6-2.3) mg/dL Albumin (3.5-5.0) g/dL Procalcitonin 0.26 H (0.02-0.09) ng/mL 02/28/23 Range/Units 06:47 RBC (3.80-5.40) m/uL RDW (11.5-15.5) % Sodium 136 L (137-145) mmol/L BUN 27 H (7-17) mg/dL Creatinine 1.75 H (0.52-1.04) mg/dL Glucose 106 H (74-99) mg/dL POC Glucose (mg/dL) (70-110) mg/dL Magnesium 1.5 L (1.6-2.3) mg/dL Albumin 2.8 L (3.5-5.0) g/dL Procalcitonin (0.02-0.09) ng/mL
[2023-02-28] MEDS: ATORVASTATIN 20 MG TAB PO SCH (21:25)
[2023-02-28] MEDS: SERTRALINE 100 MG TAB PO SCH (21:25)
[2023-02-28] MEDS: APIXABAN 2.5 MG TABLET PO SCH (21:25)
[2023-02-28] MEDS ORDERED: POTASSIUM BICARBONATE/CIT AC 20 MEQ TABLET.EFF PO ONE ×2 (22:00→23:00)
[2023-03-01] MEDS ORDERED: POTASSIUM BICARBONATE/CIT AC 20 MEQ TABLET.EFF PO ONE
[2023-03-01] MEDS: NOREPINEPHRINE 4 MG in SODIUM CHLORIDE 0.9% 250 ML IV SCH ×2 (00:11→14:28)
[2023-03-01] MEDS: CALCIUM CARBONATE 500 MG CHEWABLE PO PRN (00:21)
[2023-03-01] MEDS: FUROSEMIDE 100 MG in SODIUM CHLORIDE 0.9% 90 ML IV SCH ×2 (04:07→12:59)
[2023-03-01 04:14] LABS: Basophils % (A) 0 %; Eosinophils # (A) 0.4 k/uL (0-0.7); Eosinophils % (A) 5 %; HCT 36.8 % (34.0-46.0); HGB 11.7 gm/dL (11.4-16.0); Hypochromasia Slight; Lymphocytes # (A) 1.4 k/uL (1.0-4.8); Lymphocytes % (A) 15 %; MCH 29.4 pg (25.0-35.0); MCHC 31.7 g/dL (31.0-37.0); MCV 92.6 fL (80.0-100.0); Mean Platelet Volume 7.9; Monocytes # (A) 0.5 k/uL (0-1.0); Monocytes % (A) 5 %; Neutrophils # (A) 6.5 k/uL (1.3-7.7); Neutrophils % (A) 72 %; Platelet Count 307 k/uL (150-450); RBC 3.97 m/uL (3.80-5.40); RDW 15.6 % (11.5-15.5)
[2023-03-01 05:02] LABS: African American GFR (CKD) 41 (>60 ml/min/1.73 sqM); Anion Gap 9 mmol/L; Blood Urea Nitrogen 30 mg/dL (7-17); Calcium 9.1 mg/dL (8.4-10.2); Carbon Dioxide 29 mmol/L (22-30); Chloride 95 mmol/L (98-107); Glucose 107 mg/dL (74-99); Magnesium 1.9 mg/dL (1.6-2.3); Non-African American GFR(CKD) 36 (>60 ml/min/1.73 sqM); Potassium 4.2 mmol/L (3.5-5.1); Sodium 133 mmol/L (137-145)
[2023-03-01] MEDS ORDERED: Magnesium Replacement Protocol 1 EACH MISC MISCELLANE PRN (05:43)
[2023-03-01] MEDS ORDERED: MAGNESIUM SULFATE-D5W PMX 1 GM in DEXTROSE/WATER 1 100ML.BAG IVPB ONE (06:00)
[2023-03-01] MEDS: LEVOTHYROXINE 75 MCG TAB PO SCH (06:59)
[2023-03-01] MEDS: MIDODRINE 5 MG TAB PO SCH ×3 (06:59→16:42)
--- NOTE | 2023-03-01 07:17 | XR ---
EXAMINATION TYPE: XR chest 1V portable DATE OF EXAM: 03/01/2023 5:15 AM CLINICAL INDICATION:Female, 67 years old with history of chf exacerbation; COMPARISON: Chest radiographs from 03/01/2023 TECHNIQUE: XR chest 1V portable Frontal view of the chest. FINDINGS: Lungs/Pleura: There is no evidence of pleural effusion, focal consolidation, or pneumothorax. Pulmonary vascularity: Pulmonary vascular congestion. Heart/mediastinum: Cardiomediastinal silhouette is enlarged and stable. Musculoskeletal: No acute osseous pathology. IMPRESSION: Cardiomegaly, pulmonary vascular congestion and bilateral pleural effusions. Correlate with BNP for c ongestive heart failure.
[2023-03-01] MEDS: SYMBICORT 160-4.5 MCG INHALER INHALATION SCH ×2 (07:41→19:46)
[2023-03-01] MEDS: IPRATROPIUM-ALBUTEROL 3 ML NEB INHALATION SCH ×3 (07:41→19:47)
[2023-03-01] MEDS: AMIODARONE 200 MG TAB PO SCH (08:26)
[2023-03-01] MEDS: MONTELUKAST 10 MG TAB PO SCH (08:26)
[2023-03-01] MEDS: GABAPENTIN 100 MG CAP PO SCH ×3 (08:26→20:35)
[2023-03-01] MEDS: APIXABAN 2.5 MG TABLET PO SCH ×2 (08:26→20:35)
[2023-03-01] MEDS: allopurinoL 100 MG TAB PO SCH ×2 (08:26→20:35)
[2023-03-01] MEDS: HYDROcodone/APAP 5-325MG 1 EACH TAB PO PRN ×2 (08:36→18:33)
[2023-03-01] MEDS: METOPROLOL TARTRATE 25 MG TAB PO SCH ×3 (09:16→20:35)
--- NOTE | 2023-03-01 10:42 | P.PN ---
Subjective Progress Note Date: 03/01/23 Hospital Course: Patient is a very pleasant 67-year-old female with a past medical history of c hronic hypoxic respiratory failure secondary to COPD on home oxygen at 2 L at all times, CAD with stent, paroxysmal atrial fibrillation on anticoagulation with Eliquis, HFpEF, hypertension, hyperlipidemia, chronic kidney disease stage IV, hypothyroidism, and history of a closed head injury with deficit a residual memory impairment. She presented to the emergency department with complaints of generalized weakness, intermittent chest pain, shortness of breath, and a headache. Patient was scheduled for cardiac ablation on 03/05/[address] Stockton. Vital signs upon arrival show blood pressure 133/82, heart rate 118, respiratory rate 22, temp 98.8F, SpO2 of 99% on room air. EKG completed showing atrial fibrillation with RVR at 125 bpm. Chest x-ray showed no acute cardiopulmonary process. CT head showing age related atrophic and chronic small vessel ischemic changes without acute intercranial process. CBC showing mild ketoacidosis with WBC count 11.4. Coagulation profile showing elevated PT of 13.4, INR 1.3, and D-dimer elevated at 1.97, D-dimer is chronically elevated and currently at baseline. BMP revealing hyponatremia with sodium 130, hypokalemia with potassium of 3.4, metabolic acidosis with hypochloremia with chloride of 94, hypocarbia with bicarb of 21, elevated anion gap 15. BMP also consistent with patient's known chronic stage IV kidney disease with BUN of 30, creatinine 1.81, and GFR of 28 with baseline creatinine of 1.9. Troponin was negative at less than 0.012. ProBNP 3970 which is significantly improved from previous BNP of 11,800. Covid PCR, influenza A, influenza B, and RSV were negative. Patient was admitted under our services secondary to intermittent chest pain and atrial fibrillation with consultation to cardiology. Troponins trended overnight and all were negative at less than 0.012, 0.012, and less than 0.012. Cardiology evaluating and planning to take patient for cardiac cath. Urinalysis was obtained and was abnormal showing positive for protein, ketones, and leukocytosis with 9 RBCs and 18 WBCs. Not entirely convincing for infection, however patient does report urinary frequency and chronic urgency and therefore we will treat as UTI as patient is scheduled to undergo invasive procedure for cardiac catheterization. Patient became hypotensive on 02/27. Was transferred to medical ICU. Was briefly on norepinephrine. Still in atrial fibrillation with RVR. Now also started on Lasix drip. Subjective: Patient seen and examined at bedside. No acute events overnight. Still tachycardic and short of breath. Denies any chest pain. Pertinent positives and negatives as discussed above, a complete review of systems was performed and all other systems are negative. Vitals Signs Reviewed. General: nontoxic, no distress, appears at stated age, chronically ill-appearing Derm: warm, dry Head: atraumatic, normocephalic, symmetric Eyes: EOMI, no lid lag, anicteric sclera Mouth: no lip lesion, mucus membranes moist Cardiovascular: S1S2 irregular, tachycardic, systolic murmur Lungs: Bibasilar rales throughout , no accessory muscle use, supplemental oxygen Abdominal: soft, nontender to palpation, no guarding, no appreciable organomegaly Ext: no gross muscle atrophy, no edema, no contractures Neuro: CN II-XI grossly intact, no focal neuro deficits Psych: Alert, oriented, appropriate affect Data Reviewed Today: Pertinent Labs: WBC 9, hemoglobin 11.7, sodium 133, potassium 4.2, creatinine 1.5, magnesium 1.9 Imaging: Chest x-ray and apparently interpreted, small pleural effusion on the right, interstitial opacities bilaterally., Slightly improved from yesterday Assessment and Plan: Active: Paroxysmal atrial fibrillation with RVR Acute on chronic diastolic CHF Acute on chronic hypoxic respiratory failure History of interstitial pulmonary fibrosis History of CAD status post stent Cardiogenic shock, resolved Urinary tract infection Acute on chronic renal failure, resolving Hypokalemia, resolved Hypomagnesemia, resolved -Pulmonology following, on bronchodilators, Lasix drip at 10 mg per hour -monitor electrolytes daily, and follow renal function. -Cardiology following, currently on metoprolol 25 oral 3 times a day, amiodarone increased to 200 mg daily, also started on Eliquis 2.5 mg twice a day -Echocardiogram pending -On midodrine 10 mg 3 times a day -Currently off of vasopressors -Continue IV ceftriaxone 2 g every 24 hours -Monitor urine output, BMP and magnesium level tomorrow -Her A1c is 5.7, Farxiga discontinued for now, may be contributing to her urinary frequency Chronic: History of PE/DVT History of VDRF requiring tracheostomy, subsequent removal Debility Hypothyroidism dyslipidemia Depression/anxiety DVT ppx: Eliquis Code status: Full code Anticipated discharge place: Pending clinical course Anticipated discharge time: Pending clinical course Objective - Vital Signs Vital signs: Vital Signs Temp 97.7 F 03/01/23 08:00 Pulse 112 H 03/01/23 10:00 Resp 22 03/01/23 10:00 BP 92/64 03/01/23 10:00 Pulse Ox 89 L 03/01/23 10:00 FiO2 Intake & Output 02/28/23 03/01/23 03/01/23 18:59 06:59 18:59 Intake Total 1223 555.500 70 Output Total 1110 1715 220 Balance 113 -1159.500 -150 Weight 76.7 kg Intake: IV 415 130 70 KVO 180 130 70 Sodium Chloride 0.9% 1, 185 000 ml @ 75 mls/hr IV . [id number] [facility] Rx#:[id number] cefTRIAXone 2 gm In 50 Sodium Chloride 0.9% 50 ml @ 100 mls/hr IVPB Q24HR [facility] Rx#:[id number] Intake, IV Titration 185.500 Amount Furosemide 100 mg In 185.500 Sodium Chloride 0.9% 90 ml @ 10 MG/HR 10 mls/hr IV .Q10H [facility] Rx#: [id number] Oral 808 240 Output: Urine 1110 1715 220 Other: Voiding Method Indwelling Catheter Indwelling Catheter Indwelling Catheter # Voids 1 # Bowel Movements 1 - Labs CBC & Chem 7: 03/01/23 03:51 03/01/23 03:51 Labs: Abnormal Lab Results - Last 24 Hours (Table) 02/28/23 03/01/23 03/01/23 Range/Units 20:37 03:51 03:51 RDW 15.6 H (11.5-15.5) % Sodium 133 L (137-145) mmol/L Potassium 3.2 L (3.5-5.1) mmol/L Chloride 95 L (98-107) mmol/L BUN 30 H (7-17) mg/dL Creatinine 1.50 H (0.52-1.04) mg/dL Glucose 107 H (74-99) mg/dL
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
[2023-03-01] MEDS: LIDOCAINE 5% PATCH TOPICAL SCH (11:32)
--- NOTE | 2023-03-01 14:56 | CA ---
Transthoracic Echo Report Name: Madina Nick Age: 67 Gender: F : 1955 Exam Date: 03/01/2023 10:04 Exam Location: [facility] Ht (in): 63 Wt (lb): 175 Ordering Physician: Pola Stockton MD ([id number]) Attending/Referring Phys: [employer] Ty Lennon Procedure CPT: Indications: chf Cardiac Hx: Technical Quality: Technically difficult study Contrast 1: Definity Total Dose (mL): 2 Contrast 2: Total Dose (mL): MEASUREMENTS (Male / Female) Normal Values 2D ECHO LV Diastolic Diameter PLAX 4.1 cm 4.2 - 5.9 / 3.9 - 5.3 cm LV Systolic Diameter PLAX 3.8 cm IVS Diastolic Thickness 1.3 cm 0.6 - 1.0 / 0.6 - 0.9 cm LVPW Diastolic Thickness 1.2 cm 0.6 - 1.0 / 0.6 - 0.9 cm LV Relative Wall Thickness 0.6 RV Internal Dim ED PLAX 2.6 cm LVOT Diameter 2.1 cm Aortic Root Diameter 3.1 cm LA Systolic Diameter LX 3.2 cm 3.0 - 4.0 / 2.7 - 3.8 cm LV Diastolic Volume MOD 4C 44.3 cm??? LV Systolic Volume MOD 4C 21.2 cm??? LV Ejection Fraction MOD 4C 52.3 % LV Cardiac Index MOD 4C 1324.6 cm???/min???m??? LV Diastolic Length 4C 6.3 cm LV Systolic Length 4C 5.6 cm Ascending Aorta Diameter 3.1 cm DOPPLER AV Peak Velocity 141.8 cm/s AV Peak Gradient 8.0 mmHg AV Mean Velocity 96.4 cm/s AV Mean Gradient 4.3 mmHg AV Velocity Time Integral 24.7 cm AI Peak Velocity 345.4 cm/s AI Peak Gradient 47.7 mmHg AI Pressure Half Time 767.0 ms LVOT Peak Velocity 58.8 cm/s LVOT Peak Gradient 1.4 mmHg LVOT Velocity Time Integral 11.4 cm LVOT Stroke Volume 40.4 cm??? LVOT Stroke Volume Index 22.1 ml/m??? LVOT Cardiac Index 2308.9 cm???/min???m??? AV Area Cont Eq vti 1.6 cm??? AV Area Cont Eq pk 1.5 cm??? MV Peak Velocity 108.0 cm/s MV Peak Gradient 4.7 mmHg MV Mean Velocity 60.5 cm/s MV Mean Gradient 1.8 mmHg MV Velocity Time Integral 24.1 cm MR Peak Velocity 297.3 cm/s MR Peak Gradient 35.3 mmHg Mitral E Point Velocity 88.5 cm/s Mitral A Point Velocity 26.5 cm/s Mitral E to A Ratio 3.3 MV Deceleration Time 167.3 ms MV E' Velocity 7.7 cm/s Mitral E to MV E' Ratio 11.5 TR Peak Velocity 228.7 cm/s TR Peak Gradient 20.9 mmHg Right Ventricular Systolic Press 27.8 mmHg PV Peak Velocity 101.6 cm/s PV Peak Gradient 4.1 mmHg FINDINGS Left Ventricle Moderately increased left ventricular wall thickness. Left ventricular ejection fraction is estimated at 40 %. Right Ventricle Normal right ventricular size. RVSP= 46mmHg Right Atrium Normal right atrial size. Left Atrium Normal left atrial size. Mitral Valve Structurally normal mitral valve. Aortic Valve Moderate AV calcification. Moderate AI. Tricuspid Valve Mild TR Pulmonic Valve Pulmonic valve not well visualized. Mild PI. Pericardium Normal pericardium. Aorta Normal size aortic root and proximal ascending aorta. CONCLUSIONS Moderately increased left ventricular wall thickness Left ventricular ejection fraction 40% with global hypokinesis Moderate aortic valve calcifications Moderate aortic insufficiency Mild aortic stenosis Mild tricuspid regurgitation Previewed by: Dr. Ricki Lou DO (Electronically Signed) Final Date: 01 March 2023 14:55
[2023-03-01] MEDS: CYCLOBENZAPRINE 10 MG TAB PO PRN ×2 (16:42→20:36)
[2023-03-01] MEDS: SERTRALINE 100 MG TAB PO SCH (20:35)
[2023-03-01] MEDS: ATORVASTATIN 20 MG TAB PO SCH (20:36)
--- NOTE | 2023-03-02 01:13 | PN ---
PROGRESS NOTE SUBJECTIVE: A 67-year-old lady with complex and multiple cardiac problems, is admitted to hospital with symptoms of not feeling well, fatigue and tiredness and had been in atrial fibrillation with somewhat of a poorly controlled ventricular rate. Dr. Stockton had seen her yesterday and this morning, she continues to have marginal blood pressures. Heart rate is still poorly controlled. Her urine output is not as good. I am going to put her back on Levophed for hypotension. Consult Nephrology and schedule her for a ARCADIO cardioversion. Hopefully once in sinus rhythm, her blood pressure would improve. OBJECTIVE: VITAL SIGNS: On exam, heart rate is 110 beats per minute. Blood pressure is 90/60, respiratory rate is 18. CHEST: Reveals diminished air entry at the bases. HEART: Reveals first and second heart sounds. Irregular rhythm and a systolic murmur at the apex. ABDOMEN: Soft. EXTREMITIES: Examination of extremities did not reveal any edema. Peripheral pulses are felt. ASSESSMENT: 1. Persistent atrial fibrillation with poorly controlled ventricular rate. 2. Congestive heart failure. 3. Hypotension. PLAN: I will continue the Lasix drip. Consult Nephrology and consider ARCADIO cardioversion tomorrow. MMODL / IJN: [id number] /
[2023-03-02 04:29] LABS: Basophils % (A) 0 %; Eosinophils # (A) 0.7 k/uL (0-0.7); Eosinophils % (A) 7 %; HCT 37.1 % (34.0-46.0); HGB 11.8 gm/dL (11.4-16.0); Hypochromasia Slight; Lymphocytes # (A) 1.6 k/uL (1.0-4.8); Lymphocytes % (A) 18 %; MCHC 31.7 g/dL (31.0-37.0); MCV 94.7 fL (80.0-100.0); Mean Platelet Volume 8.1; Monocytes # (A) 0.4 k/uL (0-1.0); Monocytes % (A) 5 %; Neutrophils # (A) 6.1 k/uL (1.3-7.7); Neutrophils % (A) 68 %; Platelet Count 327 k/uL (150-450); RBC 3.92 m/uL (3.80-5.40); RDW 15.7 % (11.5-15.5)
[2023-03-02 04:48] LABS: African American GFR (CKD) 31 (>60 ml/min/1.73 sqM); Anion Gap 12 mmol/L; Blood Urea Nitrogen 37 mg/dL (7-17); Carbon Dioxide 33 mmol/L (22-30); Chloride 91 mmol/L (98-107); Glucose 119 mg/dL (74-99); Non-African American GFR(CKD) 27 (>60 ml/min/1.73 sqM); Sodium 136 mmol/L (137-145)
[2023-03-02] MEDS: FUROSEMIDE 100 MG in SODIUM CHLORIDE 0.9% 90 ML IV SCH ×2 (06:13→15:04)
[2023-03-02] MEDS: NOREPINEPHRINE 4 MG in SODIUM CHLORIDE 0.9% 250 ML IV SCH (06:14)
[2023-03-02] MEDS: HYDROcodone/APAP 5-325MG 1 EACH TAB PO PRN ×3 (06:15→20:44)
[2023-03-02] MEDS: LEVOTHYROXINE 75 MCG TAB PO SCH (06:15)
[2023-03-02] MEDS: MIDODRINE 5 MG TAB PO SCH ×3 (06:19→18:09)
[2023-03-02] MEDS: SYMBICORT 160-4.5 MCG INHALER INHALATION SCH ×2 (08:04→20:16)
[2023-03-02] MEDS: IPRATROPIUM-ALBUTEROL 3 ML NEB INHALATION SCH ×3 (08:04→20:16)
[2023-03-02] MEDS: METOPROLOL TARTRATE 25 MG TAB PO SCH (09:19)
[2023-03-02] MEDS: GABAPENTIN 100 MG CAP PO SCH ×3 (09:19→20:44)
[2023-03-02] MEDS: MONTELUKAST 10 MG TAB PO SCH (09:19)
[2023-03-02] MEDS: allopurinoL 100 MG TAB PO SCH ×2 (09:19→20:44)
[2023-03-02] MEDS: APIXABAN 2.5 MG TABLET PO SCH ×2 (09:19→20:44)
[2023-03-02] MEDS: AMIODARONE 200 MG TAB PO SCH (09:20)
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
--- NOTE | 2023-03-02 11:07 | XR ---
EXAMINATION TYPE: XR chest 1V portable DATE OF EXAM: 03/02/2023 COMPARISON: 03/01/2023 INDICATION: CHF exacerbation TECHNIQUE: Single frontal view of the chest is obtained. FINDINGS: The heart size is mildly prominent. The pulmonary vasculature is prominent. Diffuse increased lung markings are present bilaterally compatible with volume overload and pulmonary edema. Correlate for congestive heart failure IMPRESSION: 1. Congestive heart failure
--- NOTE | 2023-03-02 13:26 | P.PN ---
Subjective Progress Note Date: 03/02/23 Hospital Course: Patient is a very pleasant 67-year-old female with a past medical history of chronic hypoxic respiratory failure secondary to COPD on home oxygen at 2 L at all times, CAD with stent, paroxysmal atrial fibrillation on anticoagulation with Eliquis, HFpEF, hypertension, hyperlipidemia, chronic kidney disease stage IV, hypothyroidism, and history of a closed head injury with deficit a residual memory impairment. She presented to the emergency department with complaints of generalized weakness, intermittent chest pain, shortness of breath, and a headache. Patient was scheduled for cardiac ablation on 03/05/[address] Stockton. Vital signs upon arrival show blood pressure 133/82, heart rate 118, respiratory rate 22, temp 98.8F, SpO2 of 99% on room air. EKG completed showing atrial fibrillation with RVR at 125 bpm. Chest x-ray showed no acute cardiopulmonary process. CT head showing age related atrophic and chronic small vessel ischemic changes without acute intercranial process. CBC showing mild ketoacidosis with WBC count 11.4. Coagulation profile showing elevated PT of 13.4, INR 1.3, and D-dimer elevated at 1.97, D-dimer is chronically elevated and currently at baseline. BMP revealing hyponatremia with sodium 130, hypokalemia with potassium of 3.4, metabolic acidosis with hypochloremia with chloride of 94, hypocarbia with bicarb of 21, elevated anion gap 15. BMP also consistent with patient's known chronic stage IV kidney disease with BUN of 30, creatinine 1.81, and GFR of 28 with baseline creatinine of 1.9. Troponin was negative at less th an 0.012. ProBNP 3970 which is significantly improved from previous BNP of 11,800. Covid PCR, influenza A, influenza B, and RSV were negative. Patient was admitted under our services secondary to intermittent chest pain and atrial fibrillation with consultation to cardiology. Troponins trended overnight and all were negative at less than 0.012, 0.012, and less than 0.012. Cardiology evaluating and planning to take patient for cardiac cath. Urinalysis was obtained and was abnormal showing positive for protein, ketones, and leukocytosis with 9 RBCs and 18 WBCs. Not entirely convincing for infection, however patient does report urinary frequency and chronic urgency and therefore we will treat as UTI as patient is scheduled to undergo invasive procedure for cardiac catheterization. Patient became hypotensive on 02/27. Was transferred to medical ICU. Was briefly on norepinephrine. Still in atrial fibrillation with RVR. Now also started on Lasix drip. Echocardiogram showed slightly reduced LVEF of 40% with global hypokinesis, moderate aortic insufficiency. Subjective: Patient seen and examined at bedside. No acute events overnight. Still tachycardic and short of breath. Denies any chest pain. Pertinent positives and negatives as discussed above, a complete review of systems was performed and all other systems are negative. Vitals Signs Reviewed. General: nontoxic, no distress, appears at stated age, chronically ill-appearing Derm: warm, dry Head: atraumatic, normocephalic, symmetric Eyes: EOMI, no lid lag, anicteric sclera Mouth: no lip lesion, mucus membranes moist Cardiovascular: S1S2 irregular, tachycardic, systolic murmur Lungs: Bibasilar rales throughout , no accessory muscle use, supplemental oxygen Abdominal: soft, nontender to palpation, no guarding, no appreciable organomegaly Ext: no gross muscle atrophy, no edema, no contractures Neuro: CN II-XI grossly intact, no focal neuro deficits Psych: Alert, oriented, appropriate affect Data Reviewed Today: Pertinent Labs: WBC 9, hemoglobin 11.8, sodium 136, potassium 5, bicarbonate 33, BUN 37, creatinine 1.88, magnesium 2, TSH 2.6 Imaging: Chest x-ray independently interpreted, slightly improved aeration throughout Assessment and Plan: Patient is chronically ill, prognosis guarded. Active: Paroxysmal atrial fibrillation with RVR Acute on chronic diastolic and systolic CHF, EF 40% Acute on chronic hypoxic respiratory failure History of interstitial pulmonary fibrosis History of CAD status post stent Cardiogenic shock Urinary tract infection Acute on chronic renal failure Hypokalemia, resolved Hypomagnesemia, resolved -Pulmonology note reviewed, continue Lasix drip, and bronchodilators -monitor electrolytes daily, and follow renal function -Nephrology note reviewed, restarted farxiga -Cardiology following, currently on metoprolol 25 oral 3 times a day, amiodarone increased to 200 mg daily, also started on Eliquis 2.5 mg twice a day -Likely ARCADIO with cardioversion today -On midodrine 10 mg 3 times a day -Continue to wean pressors -Continue IV ceftriaxone 2 g every 24 hours -Monitor urine output, BMP and magnesium level tomorrow Chronic: History of PE/DVT History of VDRF requiring tracheostomy, subsequent removal Debility Hypothyroidism dyslipidemia Depression/anxiety DVT ppx: Eliquis Code status: Full code Anticipated discharge place: Pending clinical course Anticipated discharge time: Pending clinical course Objective - Vital Signs Vital signs: Vital Signs Temp 97.4 F L 03/02/23 09:00 Pulse 107 H 03/02/23 13:00 Resp 23 03/02/23 13:00 BP 108/70 03/02/23 13:00 Pulse Ox 100 03/02/23 13:00 FiO2 Intake & Output 03/01/23 03/02/23 03/02/23 18:59 06:59 18:59 Intake Total 402.712 491.567 301.957 Output Total 735 990 710 Balance -332.288 -498.433 -408.043 Weight 78 kg Intake: IV 230 240 180 Furosemide 100 mg In 60 Sodium Chloride 0.9% 90 ml @ 10 MG/HR 10 mls/hr IV .Q10H [facility] Rx#: [id number] KVO 230 240 120 Intake, IV Titration 172.712 251.567 121.957 Amount Furosemide 100 mg In 88.667 100 Sodium Chloride 0.9% 90 ml @ 10 MG/HR 10 mls/hr IV .Q10H [facility] Rx#: [id number] Norepinephrine 4 mg In 34.045 151.567 121.957 Sodium Chloride 0.9% 250 ml @ 0.03 MCG/KG/MIN 8. 767 mls/hr IV .Q24H [facility] Rx#:[id number] cefTRIAXone 2 gm In 50 Sodium Chloride 0.9% 50 ml @ 100 mls/hr IVPB Q24HR [facility] Rx#:[id number] Output: Urine 735 990 710 Other: Voiding Method Indwelling Catheter Indwelling Catheter Indwelling Catheter # Bowel Movements 1 1 - Labs CBC & Chem 7: 03/02/23 03:20 03/02/23 03:20 Labs: Abnormal Lab Results - Last 24 Hours (Table) 03/02/23 03/02/23 Range/Units 03:20 03:20 RDW 15.7 H (11.5-15.5) % Sodium 136 L (137-145) mmol/L Chloride 91 L (98-107) mmol/L Carbon Dioxide 33 H (22-30) mmol/L BUN 37 H (7-17) mg/dL Creatinine 1.88 H (0.52-1.04) mg/dL Glucose 119 H (74-99) mg/dL
[2023-03-02] MEDS: DAPAGLIFLOZIN PROPANEDIOL 5 MG TABLET PO SCH (13:48)
[2023-03-02] MEDS: CYCLOBENZAPRINE 10 MG TAB PO PRN (14:31)
[2023-03-02] MEDS: LIDOCAINE 5% PATCH TOPICAL SCH (15:03)
[2023-03-02] MEDS ORDERED: PROPOFOL 10 MG/ML 20 ML VIAL IV ONE (16:32)
--- NOTE | 2023-03-02 17:05 | P.EPPROC ---
- EP Procedure Note Date of Procedure: 03/02/23 Electrophysiology Procedure Note: Procedure performed: 1. Transesophageal Echocardiogram. 2. Synchronized Cardioversion. 3. Bubble study Indications: Persistent atrial fibrillation with hemodynamic compromise Consent: I have discussed the risks, benefits and alternative therapies for the above-mentioned procedure. The patient has indicated understanding and acceptance of the risks of the procedure. Signed consent was obtained and was placed in the paper chart. Moderate conscious sedation: Moderate conscious sedation was administered by anesthesia, see separate report. Procedural Steps: Timeout was performed in usual fashion. Patient's heart rate, blood pressure, oxygen saturation and ECG were monitored. After achieving approp riate moderate conscious sedation, ARCADIO probe was advanced without difficulty and without any immediate complications to the esophagus. ARCADIO study was performed with color flow doppler, pulsed wave doppler and continuous wave doppler. Agitated saline bubbles were injected to assess for any intra-atrial shunt. The probe was then removed. After making sure that there is no evidence of intracardiac thrombus, pacer pads were placed on patients chest and back. Synchronized cardioversion was perfromed using [150] J. [1] attempt. Sinus rhythm was confirmed with a 12 lead EKG. Patient tolerated the procedure well. Patient was transferred to the post procedure area in stable and satisfactory condition. Complications: none FINDINGS Left Atrium: Mild left atrial dilatation. No evidence of muscle thrombus seen. Left Atrial Appendage: No evidence of thrombus or mass seen in CHRISTIAN Inter atrial septum: Intact inter-atrial septum. No evidence of atrial septal defect or patent foramen ovale on color doppler and bubble study Left Ventricle: Normal global LV size and systolic function Right Atrium: Normal overall RV size Right Ventricle: Normal global RV size and systolic function. Prominent moder ator band and right ventricle. Aortic Valve: Trileaflet, Moderate calcific thickening of aortic valve leaflet seen. Mild aortic regurgitation. Mitral Valve: Taking of leaflet tips. Restricted motion of posterior leaflet. Moderate mitral regurgitation. Pulmonic Valve: Not well visualized. Tricuspid Valve: Structurally normal. Moderate tricuspid regurgitation Ascending aorta, Aortic root and Aortic arch: Normal size aortic root CONCLUSION: Moderate mitral regurgitation, likely combination of primary and secondary Moderate tricuspid regurgitation No evidence of thrombus in left atrium or left atrial appendage Calcific aortic valve with mild regurgitation Cardioversion Was followed after ARCADIO. It was successful.
[2023-03-02] MEDS: METOPROLOL TARTRATE 50 MG TAB PO SCH (18:09)
[2023-03-02] MEDS: ATORVASTATIN 20 MG TAB PO SCH (20:44)
[2023-03-02] MEDS: SERTRALINE 100 MG TAB PO SCH (20:44)
[2023-03-02] MEDS: FUROSEMIDE 10 MG/ML 4 ML VIAL IV SCH (20:44)
[2023-03-03 06:11] LABS: Basophils % (A) 0 %; Eosinophils # (A) 0.5 k/uL (0-0.7); Eosinophils % (A) 7 %; HCT 34.4 % (34.0-46.0); HGB 11.1 gm/dL (11.4-16.0); Hypochromasia Moderate; Lymphocytes # (A) 1.2 k/uL (1.0-4.8); Lymphocytes % (A) 16 %; MCH 30.5 pg (25.0-35.0); MCHC 32.3 g/dL (31.0-37.0); MCV 94.5 fL (80.0-100.0); Mean Platelet Volume 7.7; Monocytes # (A) 0.4 k/uL (0-1.0); Monocytes % (A) 6 %; Neutrophils # (A) 5.2 k/uL (1.3-7.7); Neutrophils % (A) 69 %; Platelet Count 272 k/uL (150-450); RBC 3.64 m/uL (3.80-5.40); RDW 15.7 % (11.5-15.5); WBC 7.6 k/uL (3.8-10.6)
[2023-03-03 06:21] LABS: African American GFR (CKD) 43 (>60 ml/min/1.73 sqM); Anion Gap 8 mmol/L; Blood Urea Nitrogen 31 mg/dL (7-17); Calcium 7.8 mg/dL (8.4-10.2); Carbon Dioxide 26 mmol/L (22-30); Chloride 99 mmol/L (98-107); Glucose 83 mg/dL (74-99); Non-African American GFR(CKD) 37 (>60 ml/min/1.73 sqM); Sodium 133 mmol/L (137-145)
[2023-03-03 06:24] LABS: Magnesium 1.6 mg/dL (1.6-2.3); Potassium 3.4 mmol/L (3.5-5.1)
[2023-03-03] MEDS: LEVOTHYROXINE 75 MCG TAB PO SCH (06:45)
[2023-03-03] MEDS: MIDODRINE 5 MG TAB PO SCH ×3 (06:45→20:50)
[2023-03-03] MEDS: SYMBICORT 160-4.5 MCG INHALER INHALATION SCH ×2 (07:40→20:09)
[2023-03-03] MEDS: IPRATROPIUM-ALBUTEROL 3 ML NEB INHALATION SCH ×3 (07:40→20:09)
[2023-03-03] MEDS: FUROSEMIDE 10 MG/ML 4 ML VIAL IV SCH (08:40)
[2023-03-03] MEDS: POTASSIUM CHLORIDE ER 20 MEQ TAB.ER PO SCH ×2 (08:40→12:39)
[2023-03-03] MEDS: METOPROLOL TARTRATE 50 MG TAB PO SCH ×2 (08:40→20:50)
[2023-03-03] MEDS: GABAPENTIN 100 MG CAP PO SCH ×3 (08:41→21:01)
[2023-03-03] MEDS: MONTELUKAST 10 MG TAB PO SCH (08:41)
[2023-03-03] MEDS: APIXABAN 2.5 MG TABLET PO SCH ×2 (08:41→20:50)
[2023-03-03] MEDS: AMIODARONE 200 MG TAB PO SCH (08:41)
[2023-03-03] MEDS: allopurinoL 100 MG TAB PO SCH ×2 (08:41→20:50)
[2023-03-03] MEDS: MAGNESIUM SULFATE-D5W PMX 1 GM in DEXTROSE/WATER 1 100ML.BAG IVPB SCH ×2 (08:41→12:39)
--- NOTE | 2023-03-03 10:05 | P.PN ---
Subjective Patient is seen in follow-up for chronic kidney disease. Renal function at baseline. Nonoliguric. On low-dose Levophed. Denies chest pain or shortness of breath. Vital signs are stable. General: No acute distress. HEENT: Head exam is unremarkable. On nasal cannula. LUNGS: No audible rhonchi or wheezes. HEART: Rate and Rhythm are regular. ABDOMEN: Nontender. EXTREMITITES: No edema. Objective - Vital Signs Vital signs: Vital Signs Temp 98.0 F 03/03/23 08:00 Pulse 87 03/03/23 08:45 Resp 19 03/03/23 08:45 BP 81/52 03/03/23 08:45 Pulse Ox 90 L 03/03/23 08:45 FiO2 4 03/03/23 05:00 Intake & Output 03/02/23 03/03/23 03/03/23 18:59 06:59 18:59 Intake Total 539.631 300.149 270 Output Total 1160 645 100 Balance -620.369 -344.851 170 Weight 80.9 kg Intake: IV 300 240 20 Furosemide 100 mg In 80 Sodium Chloride 0.9% 90 ml @ 10 MG/HR 10 mls/hr IV .Q10H [facility] Rx#: [id number] KVO 220 240 20 Intake, IV Titration 239.631 60.149 Amount Furosemide 100 mg In 88.5 Sodium Chloride 0.9% 90 ml @ 10 MG/HR 10 mls/hr IV .Q10H [facility] Rx#: [id number] Norepinephrine 4 mg In 151.131 60.149 Sodium Chloride 0.9% 250 ml @ 0.03 MCG/KG/MIN 8. 767 mls/hr IV .Q24H [facility] Rx#:[id number] Oral 250 Output: Urine 1160 645 100 Other: Voiding Method Indwelling Catheter Indwelling Catheter Indwelling Catheter - Labs CBC & Chem 7: 03/03/23 06:00 03/03/23 06:00 Labs: Abnormal Lab Results - Last 24 Hours (Table) 03/03/23 03/03/23 Range/Units 06:00 06:00 RBC 3.64 L (3.80-5.40) m/uL Hgb 11.1 L (11.4-16.0) gm/dL RDW 15.7 H (11.5-15.5) % Sodium 133 L (137-145) mmol/L Potassium 3.4 L (3.5-5.1) mmol/L BUN 31 H (7-17) mg/dL Creatinine 1.45 H (0.52-1.04) mg/dL Calcium 7.8 L (8.4-10.2) mg/dL Assessment and Plan Plan: Assessment: 1. Chronic kidney disease stage IV with baseline creatinine near 2 secondary to cardiorenal syndrome and nephrosclerosis. Atrophic kidneys noted on renal ultrasound done January 2023. 2. A. fib with RVR maintained on amiodarone and Lopressor. Status post cardioversion and ARCADIO. 3. Hypotension maintained on Levophed. Also on midodrine. 4. Hypervolemic hyponatremia. 5. Hypokalemia from diuresis. Being replaced. 6. Acute on chronic systolic CHF with ejection fraction of 40% with moderate aortic insufficiency. 7. History of coronary artery disease with cardiac stenting. 8. Volume overload. Improving with diuresis. 9. Hypomagnesemia from diuresis. Being replaced. Plan: Lasix drip discontinued 02/22/2023. Now on IV Lasix 40 mg twice daily. Maintain SGLT2i. Wean Levophed. Avoid nephrotoxins. Continue to monitor renal function and urine output. Check a.m. cortisol level.
[2023-03-03 10:37] VITALS: BMI 31.6
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
--- NOTE | 2023-03-03 11:33 | P.PN ---
Subjective Progress Note Date: 03/03/23 Hospital Course: Patient is a very pleasant 67-year-old female with a past medical history of c hronic hypoxic respiratory failure secondary to COPD on home oxygen at 2 L at all times, CAD with stent, paroxysmal atrial fibrillation on anticoagulation with Eliquis, HFpEF, hypertension, hyperlipidemia, chronic kidney disease stage IV, hypothyroidism, and history of a closed head injury with deficit a residual memory impairment. She presented to the emergency department with complaints of generalized weakness, intermittent chest pain, shortness of breath, and a headache. Patient was scheduled for cardiac ablation on 03/05/[address] Stockton. Vital signs upon arrival show blood pressure 133/82, heart rate 118, respiratory rate 22, temp 98.8F, SpO2 of 99% on room air. EKG completed showing atrial fibrillation with RVR at 125 bpm. Chest x-ray showed no acute cardiopulmonary process. CT head showing age related atrophic and chronic small vessel ischemic changes without acute intercranial process. WBC count 11.4. Coagulation profile showing elevated PT of 13.4, INR 1.3, and D-dimer elevated at 1.97, D- dimer is chronically elevated and currently at baseline. BMP revealing hyponat remia with sodium 130, hypokalemia with potassium of 3.4, metabolic acidosis with hypochloremia with chloride of 94, hypocarbia with bicarb of 21, elevated anion gap 15. BMP also consistent with patient's known chronic stage IV kidney disease with BUN of 30, creatinine 1.81, and GFR of 28 with baseline creatinine of 1.9. Troponin was negative at less than 0.012. ProBNP 3970 which is significantly improved from previous BNP of 11,800. Covid PCR, influenza A, influenza B, and RSV were negative. Patient was admitted under our services secondary to intermittent chest pain and atrial fibrillation with consultation to cardiology. Troponins trended overnight and all were negative at less than 0.012, 0.012, and less than 0.012. Urinalysis was obtained and was abnormal showing positive for protein, ketones, and leukocytosis with 9 RBCs and 18 WBCs. However, patient did have urinary symptoms. Patient became hypotensive on 02/27. Was transferred to medical ICU. Started on norepinephrine. Continue to remain in atrial fibrillation with RVR. Was also started on Lasix drip. Echocardiogram showed slightly reduced LVEF of 40% with global hypokinesis, moderate aortic insufficiency. She had ARCADIO and cardioversion, now converted to sinus rhythm. Subjective: Patient seen and examined at bedside. No acute events overnight. She claims that her shortness of breath is a lot better today. Pertinent positives and negatives as discussed above, a complete review of systems was performed and all other systems are negative. Vitals Signs Reviewed. General: nontoxic, no distress, appears at stated age, chronically ill-appearing Derm: warm, dry Head: atraumatic, normocephalic, symmetric Eyes: EOMI, no lid lag, anicteric sclera Mouth: no lip lesion, mucus membranes moist Cardiovascular: S1S2 regular, systolic murmur Lungs: Bibasilar rales throughout , no accessory muscle use, supplemental oxygen, 6 L Abdominal: soft, nontender to palpation, no guarding, no appreciable organome trev Ext: no gross muscle atrophy, no edema, no contractures Neuro: CN II-XI grossly intact, no focal neuro deficits Psych: Alert, oriented, appropriate affect Data Reviewed Today: Pertinent Labs: WBC 7.6, hemoglobin 11.1, potassium 3.4, creatinine 1.45, magnesium 1.6 Imaging: No new imaging Assessment and Plan: Patient is critically ill, prognosis guarded. Active: Paroxysmal atrial fibrillation with RVR status post cardioversion, now in sinus Cardiogenic shock Acute on chronic diastolic and systolic CHF, EF 40% Acute on chronic hypoxic respiratory failure History of interstitial pulmonary fibrosis History of CAD status post stent Acute on chronic renal failure, resolving Hypokalemia Hypomagnesemia -Pulmonology note reviewed, continue to wean pressors, currently on norepinephrine -Nephrology note reviewed, continue farxiga, Lasix drip discontinued, now on IV Lasix 40 mg every 12 hours, check a.m. cortisol -monitor electrolytes daily, and follow renal function, repeat BMP tomorrow -Cardiology following, currently on metoprolol 50 twice a day, amiodarone increased to 200 mg daily, Eliquis 2.5 mg twice a day -On midodrine 10 mg 3 times a day -2 g IV magnesium supplement given today as well as 40 mEq oral potassium Urinary tract infection -Continue IV ceftriaxone 2 g every 24 hours -Cultures not taken during admission -Discontinue after 7 days total, end date added to orders Chronic: History of PE/DVT History of VDRF requiring tracheostomy, subsequent removal Debility Hypothyroidism dyslipidemia Depression/anxiety DVT ppx: Eliquis Code status: Full code Anticipated discharge place: Pending clinical course Anticipated discharge time: Pending clinical course Objective - Vital Signs Vital signs: Vital Signs Temp 98.0 F 03/03/23 08:00 Pulse 87 03/03/23 08:45 Resp 19 03/03/23 08:45 BP 81/52 03/03/23 08:45 Pulse Ox 90 L 03/03/23 08:45 FiO2 4 03/03/23 05:00 Intake & Output 03/02/23 03/03/23 03/03/23 18:59 06:59 18:59 Intake Total 539.631 300.149 270 Output Total 1160 645 100 Balance -620.369 -344.851 170 Weight 80.9 kg 80.9 kg Intake: IV 300 240 20 Furosemide 100 mg In 80 Sodium Chloride 0.9% 90 ml @ 10 MG/HR 10 mls/hr IV .Q10H [facility] Rx#: [id number] KVO 220 240 20 Intake, IV Titration 239.631 60.149 Amount Furosemide 100 mg In 88.5 Sodium Chloride 0.9% 90 ml @ 10 MG/HR 10 mls/hr IV .Q10H [facility] Rx#: [id number] Norepinephrine 4 mg In 151.131 60.149 Sodium Chloride 0.9% 250 ml @ 0.03 MCG/KG/MIN 8. 767 mls/hr IV .Q24H [facility] Rx#:[id number] Oral 250 Output: Urine 1160 645 100 Other: Voiding Method Indwelling Catheter Indwelling Catheter Indwelling Catheter - Labs CBC & Chem 7: 03/03/23 06:00 03/03/23 06:00 Labs: Abnormal Lab Results - Last 24 Hours (Table) 03/03/23 03/03/23 Range/Units 06:00 06:00 RBC 3.64 L (3.80-5.40) m/uL Hgb 11.1 L (11.4-16.0) gm/dL RDW 15.7 H (11.5-15.5) % Sodium 133 L (137-145) mmol/L Potassium 3.4 L (3.5-5.1) mmol/L BUN 31 H (7-17) mg/dL Creatinine 1.45 H (0.52-1.04) mg/dL Calcium 7.8 L (8.4-10.2) mg/dL
[2023-03-03] MEDS: DAPAGLIFLOZIN PROPANEDIOL 5 MG TABLET PO SCH (12:40)
[2023-03-03] MEDS: LIDOCAINE 5% PATCH TOPICAL SCH ×2 (12:40→15:02)
[2023-03-03] MEDS: HYDROcodone/APAP 5-325MG 1 EACH TAB PO PRN ×2 (12:42→21:01)
--- NOTE | 2023-03-03 13:42 | P.PN ---
Subjective Progress Note Date: 03/03/23 The patient is a pleasant 68-year-old female patient who is known to our service from before with CAD and prior angioplasty as well as hypertension and dyslipidemia and paroxysmal atrial fibrillation and chronic kidney disease. She presented to the hospital because she has not been feeding well. She has been tired and fatigued and lately she has been experiencing increasing shortness of breath with exertion and relieved the chest discomfort with exertion as well. She was seen recently by myself in the office as an outpatient for a follow-up myocardial perfusion imaging stress test came in to be abnormal showing high risk features and she is scheduled to undergo a heart catheterization as an out patient. During this admission she underwent a workup including EKG showing atrial fibrillation with nonspecific changes and troponin came in to be unremarkable. Her kidney function is abnormal and above her baseline. Beside that she underwent a UA and that came in to be abnormal showing possible UTI. The examination is remarkable for irregular rhythm with clear breathing sounds bilaterally and no edema was noted in the lower extremities. February 272022 The patient was seen and evaluated this morning. She is somewhat lethargic. Her pressure has been marginal. I'm going to decrease the dose of Lasix and also decrease the dose of metoprolol. She remains in atrial fibrillation with overall controlled heart rate. She is currently on antibiotic for possible sepsis. With the pressure being low I am going to transfer the patient to the intensive care unit. Consult an physician practice market manager to see the patient. No blood work as of today and I'm going to obtain a CBC and BMP on her. Oral anticoagulation is on hold for potential heart catheterization on her tomorrow if the creatinine remains stable. The examination is remarkable for diminished breathing sounds bilaterally and irregular rhythm with no edema was noted. 02/28/2023 The patient was seen and evaluated this morning. She was transferred to the intensive care unit from the observation unit after she was hypotensive and required norepinephrine for about 12 hours and currently she is off norepinephrine. As a matter of fact her pressure has been stable. She remains in atrial fibrillation with RVR. Normally she is in sinus mechanism. Beside that she is in failure. The chest x-ray showed findings consistent with p ulmonary vascular congestions. She was started on Lasix drip. The kidney function remained stable. I am going to increase the dose of amiodarone. Restart the patient back on oral anticoagulation. Continue Lasix IV. Continue monitoring the kidney function and electrolytes. Holding on proceeding with coronary angiogram at this point. 03/03/23 Patient was seen and examined with the decision. Patient underwent ARCADIO cardioversion procedure yesterday and she has continued to be normal sinus rh ythm. She continues to be on low-dose norepinephrine drip. Blood pressure 90/60, heart rate 60 to 70s bpm, sinus rhythm Hemoglobin 11, BUN 13, creatinine 1.4. Creatinine has improved from 1.8 yeste rday. On exam Respiratory: Diffuse wheezing in bilateral lung sanchez with reduced air entry Cardio vascular: S1 and S2 audible, regular rhythm, no murmurs appreciated Extremities: No significant edema Neurological: No focal deficits Assessment Hypoxic respiratory failure Acute COPD exacerbation Persistent atrial fibrillation status post cardioversion 03/02/2023, currently normal sinus rhythm Acute on chronic renal failure, resolving. Margin a low blood pressure/hypertension, on low-dose norepinephrine Coronary artery disease Heart failure with reduced EF 40% Echo showed LVEF 40-45% Plan I discontinued IV Lasix drip yesterday and started on Lasix 40 mg IV twice a day. She had one dose of IV Lasix today. We will discontinue Lasix and start Bumex 1 mg by mouth daily from tomorrow morning Continue metoprolol 50 mg twice a day continue amiodarone 200 mg daily Continue Eliquis 2.5 mg daily Monitor renal function Would recommend aggressive COPD management. Objective - Vital Signs Vital signs: Vital Signs Temp 98.1 F 03/03/23 12:00 Pulse 81 03/03/23 12:45 Resp 17 03/03/23 12:45 BP 87/70 03/03/23 12:45 Pulse Ox 91 L 03/03/23 12:45 FiO2 4 03/03/23 05:00 Intake & Output 03/02/23 03/03/23 03/03/23 18:59 06:59 18:59 Intake Total 539.631 300.149 420 Output Total 1160 645 155 Balance -620.369 -344.851 265 Weight 80.9 kg 80.9 kg Intake: IV 300 240 170 Furosemide 100 mg In 80 Sodium Chloride 0.9% 90 ml @ 10 MG/HR 10 mls/hr IV .Q10H [facility] Rx#: [id number] KVO 220 240 20 Magnesium Sulfate-D5w Pmx 100 1 gm In Dextrose/Water 1 100ml.bag @ 100 mls/hr IVPB Q1H [facility] Rx#: [id number] cefTRIAXone 2 gm In 50 Sodium Chloride 0.9% 50 ml @ 100 mls/hr IVPB Q24HR [facility] Rx#:[id number] Intake, IV Titration 239.631 60.149 Amount Furosemide 100 mg In 88.5 Sodium Chloride 0.9% 90 ml @ 10 MG/HR 10 mls/hr IV .Q10H [facility] Rx#: [id number] Norepinephrine 4 mg In 151.131 60.149 Sodium Chloride 0.9% 250 ml @ 0.03 MCG/KG/MIN 8. 767 mls/hr IV .Q24H [facility] Rx#:[id number] Oral 250 Output: Urine 1160 645 155 Other: Voiding Method Indwelling Catheter Indwelling Catheter Indwelling Catheter - Labs CBC & Chem 7: 03/03/23 06:00 03/03/23 06:00 Labs: Abnormal Lab Results - Last 24 Hours (Table) 03/03/23 03/03/23 Range/Units 06:00 06:00 RBC 3.64 L (3.80-5.40) m/uL Hgb 11.1 L (11.4-16.0) gm/dL RDW 15.7 H (11.5-15.5) % Sodium 133 L (137-145) mmol/L Potassium 3.4 L (3.5-5.1) mmol/L BUN 31 H (7-17) mg/dL Creatinine 1.45 H (0.52-1.04) mg/dL Calcium 7.8 L (8.4-10.2) mg/dL
[2023-03-03] MEDS: methylPREDNISolone SOD SUCCI 40 MG/ML 1 ML VIAL IV SCH ×2 (16:11→20:50)
[2023-03-03] MEDS ORDERED: LIDOCAINE 4% PATCH TOPICAL SCH (17:45)
[2023-03-03] MEDS: ATORVASTATIN 20 MG TAB PO SCH (20:50)
[2023-03-03] MEDS: SERTRALINE 100 MG TAB PO SCH (21:01)
[2023-03-03] MEDS: NOREPINEPHRINE 4 MG in SODIUM CHLORIDE 0.9% 250 ML IV SCH (21:09)
[2023-03-03] MEDS: CALCIUM CARBONATE 500 MG CHEWABLE PO PRN (21:12)
[2023-03-04] MEDS: NOREPINEPHRINE 4 MG in SODIUM CHLORIDE 0.9% 250 ML IV SCH (00:43)
[2023-03-04] MEDS: LEVOTHYROXINE 75 MCG TAB PO SCH (06:03)
[2023-03-04] MEDS: MIDODRINE 5 MG TAB PO SCH ×4 (06:03→20:52)
[2023-03-04] MEDS: methylPREDNISolone SOD SUCCI 40 MG/ML 1 ML VIAL IV SCH ×3 (06:03→20:51)
[2023-03-04 06:22] LABS: Basophils % (A) 0 %; Eosinophils % (A) 1 %; HCT 34.2 % (34.0-46.0); HGB 10.8 gm/dL (11.4-16.0); Hypochromasia Moderate; Lymphocytes # (A) 0.9 k/uL (1.0-4.8); Lymphocytes % (A) 15 %; MCHC 31.7 g/dL (31.0-37.0); MCV 94.7 fL (80.0-100.0); Mean Platelet Volume 7.9; Monocytes # (A) 0.1 k/uL (0-1.0); Monocytes % (A) 2 %; Neutrophils # (A) 5.1 k/uL (1.3-7.7); Neutrophils % (A) 82 %; Platelet Count 345 k/uL (150-450); RBC 3.61 m/uL (3.80-5.40); RDW 15.5 % (11.5-15.5); WBC 6.2 k/uL (3.8-10.6)
[2023-03-04 07:20] LABS: African American GFR (CKD) 33 (>60 ml/min/1.73 sqM); Anion Gap 13 mmol/L; Blood Urea Nitrogen 36 mg/dL (7-17); Carbon Dioxide 27 mmol/L (22-30); Chloride 95 mmol/L (98-107); Glucose 140 mg/dL (74-99); Magnesium 2.5 mg/dL (1.6-2.3); Non-African American GFR(CKD) 29 (>60 ml/min/1.73 sqM); Sodium 135 mmol/L (137-145)
--- NOTE | 2023-03-04 07:20 | XR ---
EXAMINATION TYPE: XR chest 1V portable DATE OF EXAM: 03/04/2023 HISTORY: Shortness of breath. COMPARISON: 03/02/2023 TECHNIQUE: Single view of the chest is submitted. FINDINGS: Demonstrated are scattered senescent parenchymal change. Coarse infiltrates persist throughout both lung sanchez greatest within the left lung. Correlate for p neumonia versus interstitial edema. The heart is stable. Hilar and mediastinal structures are within normal limits. Degenerative changes are seen of the dorsal spine. IMPRESSION: 1. Coarse infiltrates persist throughout both lung sanchez greatest within the left lung. Correlate f or pneumonia versus interstitial edema.
[2023-03-04 07:31] LABS: Potassium 4.2 mmol/L (3.5-5.1)
[2023-03-04] MEDS: SYMBICORT 160-4.5 MCG INHALER INHALATION SCH ×2 (07:57→20:11)
[2023-03-04] MEDS: IPRATROPIUM-ALBUTEROL 3 ML NEB INHALATION SCH ×3 (07:57→20:11)
[2023-03-04] MEDS: CYCLOBENZAPRINE 10 MG TAB PO PRN (09:00)
[2023-03-04] MEDS: HYDROcodone/APAP 5-325MG 1 EACH TAB PO PRN ×2 (09:00→20:52)
[2023-03-04] MEDS: DAPAGLIFLOZIN PROPANEDIOL 5 MG TABLET PO SCH (09:30)
[2023-03-04] MEDS: BUMETANIDE 1 MG TAB PO SCH (09:30)
[2023-03-04] MEDS: allopurinoL 100 MG TAB PO SCH ×2 (09:37→20:52)
[2023-03-04] MEDS: MONTELUKAST 10 MG TAB PO SCH (09:37)
[2023-03-04] MEDS: APIXABAN 2.5 MG TABLET PO SCH ×2 (09:37→20:52)
[2023-03-04] MEDS: AMIODARONE 200 MG TAB PO SCH (09:38)
[2023-03-04] MEDS: GABAPENTIN 100 MG CAP PO SCH ×3 (09:38→21:00)
[2023-03-04] MEDS: METOPROLOL TARTRATE 50 MG TAB PO SCH ×2 (09:38→20:52)
[2023-03-04] MEDS ORDERED: FUROSEMIDE 10 MG/ML 4 ML VIAL IV STA ×2 (09:56→17:26)
--- NOTE | 2023-03-04 10:08 | XR ---
EXAMINATION TYPE: XR chest 1V portable DATE OF EXAM: 03/04/2023 HISTORY: Shortness of breath. COMPARISON: 03/04/2023 TECHNIQUE: Single view of the chest is submitted. FINDINGS: Demonstrated are scattered senescent parenchymal change. Pulmonary venous congestion with scattered interstitial edema. The heart is stable. Hilar and mediastinal structures are within normal limits. Degenerative changes are seen of the dorsal spine. IMPRESSION: 1. Pulmonary venous congestion with scattered interstitial edema.
--- NOTE | 2023-03-04 10:40 | P.PN ---
Subjective Patient is seen in follow-up for chronic kidney disease. Renal function worse from diuresis. However patient's baseline creatinine has been near 2. Nonoliguric. On Levophed. Patient is now on oral Bumex and also scheduled to receive another dose of IV Lasix as she became hypoxic. She is currently on 14 L high flow cannula. Vital signs are stable. General: No acute distress. HEENT: Head exam is unremarkable. On nasal cannula. LUNGS: No audible rhonchi or wheezes. HEART: Rate and Rhythm are regular. ABDOMEN: Nontender. EXTREMITITES: No edema. Objective - Vital Signs Vital signs: Vital Signs Temp 97.9 F 03/04/23 04:00 Pulse 73 03/04/23 09:20 Resp 15 03/04/23 09:20 BP 80/55 03/04/23 09:20 Pulse Ox 92 L 03/04/23 09:28 FiO2 4 03/03/23 05:00 Intake & Output 03/03/23 03/04/23 03/04/23 18:59 06:59 18:59 Intake Total 850 172.657 96.461 Output Total 530 365 100 Balance 320 -192.343 -3.539 Weight 80.9 kg 82 kg Intake: IV 350 120 80 KVO 100 120 30 Magnesium Sulfate-D5w Pmx 200 1 gm In Dextrose/Water 1 100ml.bag @ 100 mls/hr IVPB Q1H [facility] Rx#: [id number] cefTRIAXone 2 gm In 50 50 Sodium Chloride 0.9% 50 ml @ 100 mls/hr IVPB Q24HR [facility] Rx#:[id number] Intake, IV Titration 52.657 16.461 Amount Norepinephrine 4 mg In 52.657 16.461 Sodium Chloride 0.9% 250 ml @ 0.03 MCG/KG/MIN 8. 767 mls/hr IV .Q24H [facility] Rx#:[id number] Oral 500 Output: Urine 530 365 100 Other: Voiding Method Indwelling Catheter Indwelling Catheter - Labs CBC & Chem 7: 03/04/23 06:11 03/04/23 06:11 Labs: Abnormal Lab Results - Last 24 Hours (Table) 03/03/23 03/04/23 03/04/23 Range/Units 06:00 06:11 06:11 RBC 3.61 L (3.80-5.40) m/uL Hgb 10.8 L (11.4-16.0) gm/dL Lymphocytes # 0.9 L (1.0-4.8) k/uL Sodium 135 L (137-145) mmol/L Chloride 95 L (98-107) mmol/L BUN 36 H (7-17) mg/dL Creatinine 1.80 H (0.52-1.04) mg/dL Glucose 140 H (74-99) mg/dL Magnesium 2.5 H (1.6-2.3) mg/dL Procalcitonin 0.22 H (0.02-0.09) ng/mL Assessment and Plan Plan: Assessment: 1. Chronic kidney disease stage IV with baseline creatinine near 2 secondary to cardiorenal syndrome and nephrosclerosis. Atrophic kidneys noted on renal ultrasound done January 2023. 2. A. fib with RVR maintained on amiodarone and Lopressor. Status post cardioversion and ARCADIO. 3. Hypotension maintained on Levophed. Also on midodrine. 4. Hypervolemic hyponatremia. 5. Hypokalemia from diuresis. Replaced. Better. 6. Acute on chronic systolic CHF with ejection fraction of 40% with moderate aortic insufficiency. 7. History of coronary artery disease with cardiac stenting. 8. Volume overload. Improving with diuresis. 9. Hypomagnesemia from diuresis. Replaced. Better. Plan: Maintain Bumex. Also scheduled to receive a dose of IV Lasix today. Will need increased frequency of Bumex starting tomorrow. Increase midodrine frequency to 4 times a day. Maintain SGLT2i. Wean Levophed. Avoid nephrotoxins. Continue to monitor renal function and urine output. Cortisol level not low.
[2023-03-04] MEDS: LIDOCAINE 4% PATCH TOPICAL SCH (12:10)
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
[2023-03-04] MEDS: ACETAMINOPHEN TAB 325 MG TAB PO PRN (14:54)
--- NOTE | 2023-03-04 15:45 | P.PN ---
Subjective Progress Note Date: 03/04/23 67-year-old female with a past medical history of chronic hypoxic respiratory failure secondary to COPD on home oxygen at 2 L at all times, CAD with stent, paroxysmal atrial fibrillation on anticoagulation with Eliquis, HFpEF, hypertension, hyperlipidemia, chronic kidney disease stage IV, hypothyroidism, and history of a closed head injury with deficit a residual memory impairment. She presented to the emergency department with complaints of generalized weakness, intermittent chest pain, shortness of breath, and a headache. Patient was scheduled for cardiac ablation on 03/05/[address] Stockton. Vital signs upon arrival show blood pressure 133/82, heart rate 118, respiratory rate 22, temp 98.8F, SpO2 of 99% on room air. EKG completed showing atrial fibrillation with RVR at 125 bpm. Chest x-ray showed no acute cardiopulmonary process. CT head showing no acute intercranial process. WBC count 11.4. Coagulation profile showing PT of 13.4, INR 1.3, and D-dimer at 1.97, D-dimer is chronically elevated and currently at baseline. BMP revealing sodium 130, potassium of 3.4, chloride of 94, bicarb of 21, anion gap 15. BMP also consistent with patient's known chronic stage IV kidney disease with BUN of 30, creatinine 1.81, and GFR of 28 with baseline creatinine of 1.9. Troponin was negative at less than 0.012. ProBNP 3970 which is significantly improved from previous BNP of 11,800. Covid PCR, influenza A, influenza B, and RSV were negative. Patient was admitted under our services secondary to intermittent chest pain and atrial fibrillation with consultation to cardiology. Troponins trended overnight and all were negative at less than 0.012, 0.012, and less than 0.012. Urinalysis was obtained and was abnormal showing positive for protein, ketones, and leukocytosis with 9 RBCs and 18 WBCs. However, patient did have urinary symptoms. Patient became hypotensive on 02/27. Was transferred to medical ICU. Started on norepinephrine. Continue to remain in atrial fibrillation with RVR. Was also started on Lasix drip. Echocardiogram showed slightly reduced LVEF of 40% with global hypokinesis, moderate aortic insufficiency. She had ARCADIO and cardioversion on 03/02, now converted to sinus rhythm. Lasix drip transitioned to IV push 03/03. 03/04 Patient was seen and examined. BP 110/62 HR 61. Currently on 6L NC. Maintaining sinus rhythm. Currently on Amiodarone 200 mg PO QD and Eliquis 2.5 mg PO BID for AC. Lasix IV transitioned to Bumex 1 mg PO QD. Antibiotics include Rocephin 2g IV QD for treatment of UTI. She remains on Levophed at 0.01 mcg/kg/min. CBC Hg 10.8. BMP Na 135, Cl 95, BUN 36, Cr 1.8, glu 140. Mag 2.5. CXR showing interstitial edema, not much changed from 03/02. General: nontoxic, no distress, appears at stated age, chronically ill-appearing Derm: warm, dry Head: atraumatic, normocephalic, symmetric Eyes: EOMI, no lid lag, anicteric sclera Mouth: no lip lesion, mucus membranes moist Cardiovascular: S1S2 regular, systolic murmur Lungs: Bibasilar rales throughout , no accessory muscle use, supplemental oxygen, 6 L Abdominal: soft, nontender to palpation, no guarding, no appreciable organomegaly Ext: no gross muscle atrophy, no edema, no contractures Neuro: no focal neuro deficits Psych: Alert, oriented, appropriate affect Based on my assessment of this patient, this patient meets a high complexity level of care. Patient has an acute diagnosis of cardiogenic shock requiring pressors that poses a threat to life or bodily function. Found to be in A-Fib RVR s/p cardioversion on 03/02. Currently being treated for UTI and CHF/COPD ex acerbation. Acute on chronic hypoxic respiratory failure Paroxysmal atrial fibrillation with RVR: Status post cardioversion 03/02, now in sinus. Amiodarone 200 mg PO QD. Metoprolol 50 mg PO BID. Eliquis 2.5 mg PO BID for AC. Cardiogenic shock: Levophed to maintain MAP > 65. Acute on chronic diastolic and systolic CHF, EF 40%: Bumex 1 mg PO QD. Metoprolol as above. Acute COPD exacerbation: SoluMedrol 40 mg IV Q8H. DuoNeb scheduled and PRN for SOB/wheezing. Symbicort INH BID. History of interstitial pulmonary fibrosis History of CAD status post stent: Lipitor 20 mg PO QHS. Would benefit from ASA. Acute on chronic renal failure: Resolving. GFR and Cr appears at baseline. Resolved: Hypokalemia, Hypomagnesemia CODE STATUS: FULL CODE DVT Prophylaxis: Eliquis GI Prophylaxis: Protonix Designated medical POA if patient is not able to make medical decisions for themselves: I have reviewed the following benefits consultant notes: Cardiology, Pulmonology note. I have reviewed the results of the following tests: CBC, BMP. I have ordered the following tests: I have discussed the care of this patient with the following independent historian: I have independently interpreted the following test below: CXR as above. I have discussed the management of this patient with the following physician: This patient has a high risk of morbidity due to the following reasons: Patient requires IV vasopressors which requires intensive monitoring of hemodynamics. Objective - Vital Signs Vital signs: Vital Signs Temp 97.9 F 03/04/23 04:00 Pulse 61 03/04/23 07:00 Resp 12 03/04/23 07:00 BP 110/62 03/04/23 07:00 Pulse Ox 99 03/04/23 07:00 FiO2 4 03/03/23 05:00 Intake & Output 03/03/23 03/04/23 03/04/23 18:59 06:59 18:59 Intake Total 850 172.657 10 Output Total 530 365 20 Balance 320 -192.343 -10 Weight 80.9 kg 82 kg Intake: IV 350 120 10 KVO 100 120 10 Magnesium Sulfate-D5w Pmx 200 1 gm In Dextrose/Water 1 100ml.bag @ 100 mls/hr IVPB Q1H [facility] Rx#: [id number] cefTRIAXone 2 gm In 50 Sodium Chloride 0.9% 50 ml @ 100 mls/hr IVPB Q24HR [facility] Rx#:[id number] Intake, IV Titration 52.657 Amount Norepinephrine 4 mg In 52.657 Sodium Chloride 0.9% 250 ml @ 0.03 MCG/KG/MIN 8. 767 mls/hr IV .Q24H [facility] Rx#:[id number] Oral 500 Output: Urine 530 365 20 Other: Voiding Method Indwelling Catheter Indwelling Catheter - Labs CBC & Chem 7: 03/04/23 06:11 03/04/23 06:11 Labs: Abnormal Lab Results - Last 24 Hours (Table) 03/03/23 03/04/23 03/04/23 Range/Units 06:00 06:11 06:11 RBC 3.61 L (3.80-5.40) m/uL Hgb 10.8 L (11.4-16.0) gm/dL Lymphocytes # 0.9 L (1.0-4.8) k/uL Sodium 135 L (137-145) mmol/L Chloride 95 L (98-107) mmol/L BUN 36 H (7-17) mg/dL Creatinine 1.80 H (0.52-1.04) mg/dL Glucose 140 H (74-99) mg/dL Magnesium 2.5 H (1.6-2.3) mg/dL Procalcitonin 0.22 H (0.02-0.09) ng/mL
[2023-03-04 17:50] LABS: ABG HCO3 32 mmol/L (21-25); ABG Oxygen Saturation 92.1 % (94-97); ABG PCO2 55 mmHg (35-45); ABG PH 7.38 (7.35-7.45); ABG PO2 64 mmHg (83-108); ABG TCO2 34 mmol/L (19-24); Allen Test Performed? Yes
--- NOTE | 2023-03-04 18:25 | P.PN ---
Subjective Progress Note Date: 03/04/23 The patient is a pleasant 68-year-old female patient who is known to our service from before with CAD and prior angioplasty as well as hypertension and dyslipidemia and paroxysmal atrial fibrillation and chronic kidney disease. She presented to the hospital because she has not been feeding well. She has been tired and fatigued and lately she has been experiencing increasing shortness of breath with exertion and relieved the chest discomfort with exertion as well. She was seen recently by myself in the office as an outpatient for a follow-up myocardial perfusion imaging stress test came in to be abnormal showing high risk features and she is scheduled to undergo a heart catheterization as an out patient. During this admission she underwent a workup including EKG showing atrial fibrillation with nonspecific changes and troponin came in to be unremarkable. Her kidney function is abnormal and above her baseline. Beside that she underwent a UA and that came in to be abnormal showing possible UTI. The examination is remarkable for irregular rhythm with clear breathing sounds bilaterally and no edema was noted in the lower extremities. 03/03/23 Patient was seen and examined with the decision. Patient underwent ARCADIO cardioversion procedure yesterday and she has continued to be normal sinus rhythm. She continues to be on low-dose norepinephrine drip. Blood pressure 90/60, heart rate 60 to 70s bpm, sinus rhythm Hemoglobin 11, BUN 13, creatinine 1.4. Creatinine has improved from 1.8 yesterday. 03/04/23 Patient still continues to be significantly short of breath. On exam she has significant wheezing and reduced air entry Lab shows hemoglobin 10.8, sodium 135, creatinine 1.8, BUN 36. Yesterday creatinine was 1.4. Day before yesterday creatinine was 1.8. ABG showed pH 7.3, CO2 55, O2 64 Blood pressure 110/65 mmHg, heart rate 74 beats a minute next line telemetry shows sinus rhythm On norepinephrine drip 0.04 mics Also on midodrine. On exam Respiratory: Diffuse wheezing in bilateral lung sanchez with reduced air entry Cardio vascular: S1 and S2 audible, regular rhythm, no murmurs appreciated Extremities: No significant edema Neurological: No focal deficits Assessment Hypoxic respiratory failure Acute COPD exacerbation Persistent atrial fibrillation status post cardioversion 03/02/2023, currently normal sinus rhythm Acute on chronic renal failure, resolving. Margin a low blood pressure/hypertension, on low-dose norepinephrine Coronary artery disease Heart failure with reduced EF 40% Echo showed LVEF 40-45% Plan Continue metoprolol 50 mg twice a day. Continue amiodarone 200mg daily. Continue Eliquis 2.5 mg daily Patient continues to have significant wheezing and reduced air entry in bilateral lung sanchez. Her ABG shows hypercapnia and hypoxia. She would benefit from BiPAP support. I discussed this with the patient. On my personal clinical evaluation she does not appear significantly volume overloaded, however her chest x-ray does show slightly worsened pulmonary condition as compared to yesterday. In light of this, I would recommend her to be on BiPAP support and give 1 dose of IV Lasix tonight when she is tolerating BiPAP. This will assist in pulmonary unloading. Would recommend repeat chest x-ray tomorrow. Follow kidney function. If worsen, would not recommend further diuretics Objective - Vital Signs Vital signs: Vital Signs Temp 97.7 F 03/04/23 16:30 Pulse 80 03/04/23 17:00 Resp 30 H 03/04/23 17:00 BP 127/85 03/04/23 17:00 Pulse Ox 88 L 03/04/23 17:00 FiO2 90 03/04/23 18:09 Intake & Output 03/03/23 03/04/23 03/04/23 18:59 06:59 18:59 Intake Total 850 172.657 265.054 Output Total 530 365 470 Balance 320 -192.343 -204.946 Weight 80.9 kg 82 kg Intake: IV 350 120 160 KVO 100 120 110 Magnesium Sulfate-D5w Pmx 200 1 gm In Dextrose/Water 1 100ml.bag @ 100 mls/hr IVPB Q1H [facility] Rx#: [id number] cefTRIAXone 2 gm In 50 50 Sodium Chloride 0.9% 50 ml @ 100 mls/hr IVPB Q24HR [facility] Rx#:[id number] Intake, IV Titration 52.657 105.054 Amount Norepinephrine 4 mg In 52.657 105.054 Sodium Chloride 0.9% 250 ml @ 0.03 MCG/KG/MIN 8. 767 mls/hr IV .Q24H [facility] Rx#:[id number] Oral 500 Output: Urine 530 365 470 Other: Voiding Method Indwelling Catheter Indwelling Catheter Indwelling Catheter - Labs CBC & Chem 7: 03/04/23 06:11 03/04/23 06:11 Labs: Abnormal Lab Results - Last 24 Hours (Table) 03/03/23 03/04/23 03/04/23 Range/Units 06:00 06:11 06:11 RBC 3.61 L (3.80-5.40) m/uL Hgb 10.8 L (11.4-16.0) gm/dL Lymphocytes # 0.9 L (1.0-4.8) k/uL ABG pCO2 (35-45) mmHg ABG pO2 (83-108) mmHg ABG HCO3 (21-25) mmol/L ABG Total CO2 (19-24) mmol/L ABG O2 Saturation (94-97) % Sodium 135 L (137-145) mmol/L Chloride 95 L (98-107) mmol/L BUN 36 H (7-17) mg/dL Creatinine 1.80 H (0.52-1.04) mg/dL Glucose 140 H (74-99) mg/dL Magnesium 2.5 H (1.6-2.3) mg/dL Procalcitonin 0.22 H (0.02-0.09) ng/mL 03/04/23 Range/Units 17:48 RBC (3.80-5.40) m/uL Hgb (11.4-16.0) gm/dL Lymphocytes # (1.0-4.8) k/uL ABG pCO2 55 H (35-45) mmHg ABG pO2 64 L (83-108) mmHg ABG HCO3 32 H (21-25) mmol/L ABG Total CO2 34 H (19-24) mmol/L ABG O2 Saturation 92.1 L (94-97) % Sodium (137-145) mmol/L Chloride (98-107) mmol/L BUN (7-17) mg/dL Creatinine (0.52-1.04) mg/dL Glucose (74-99) mg/dL Magnesium (1.6-2.3) mg/dL Procalcitonin (0.02-0.09) ng/mL
[2023-03-04] MEDS: ATORVASTATIN 20 MG TAB PO SCH (20:53)
[2023-03-04] MEDS: SERTRALINE 100 MG TAB PO SCH (20:55)
[2023-03-04] MEDS: CALCIUM CARBONATE 500 MG CHEWABLE PO PRN (21:41)
[2023-03-05] MEDS: LEVOTHYROXINE 75 MCG TAB PO SCH (05:55)
[2023-03-05] MEDS: methylPREDNISolone SOD SUCCI 40 MG/ML 1 ML VIAL IV SCH (05:56)
[2023-03-05 07:19] LABS: ABG Base Excess 6.2 mmol/L; ABG HCO3 31 mmol/L (21-25); ABG Oxygen Saturation 82.9 % (94-97); ABG PCO2 50 mmHg (35-45); ABG TCO2 33 mmol/L (19-24); Allen Test Performed? Yes
[2023-03-05 07:22] LABS: ABG PO2 46 mmHg (83-108)
[2023-03-05] MEDS ORDERED: PANTOPRAZOLE 40 MG TABLET PO SCH (07:30)
[2023-03-05] MEDS: SYMBICORT 160-4.5 MCG INHALER INHALATION SCH (07:54)
[2023-03-05] MEDS: IPRATROPIUM-ALBUTEROL 3 ML NEB INHALATION SCH ×3 (07:55→19:27)
--- NOTE | 2023-03-05 08:05 | XR ---
EXAMINATION TYPE: XR chest 1V portable DATE OF EXAM: 03/05/2023 5:18 AM CLINICAL INDICATION:Female, 67 years old with history of Comparison; [facility] COMPARISON: Chest radiograph from one day prior. TECHNIQUE: XR chest 1V portable Frontal view of the chest. FINDINGS: Lungs/Pleura: Interval marked increase in opacification of the right lung and to a lesser extent left lung. No pneumothorax. Pulmonary vascularity: Unremarkable. Heart/mediastinum: Cardiomediastinal silhouette is obscured due to overlying and adjacent opacities. Musculoskeletal: No acute osseous pathology. IMPRESSION: Interval near complete opacification of the right lung but today's exam and to a lesser extent the le ft lung. Correlate for pulmonary vascular congestion with pleural effusion.
[2023-03-05 08:10] LABS: Basophils % (A) 0 %; Eosinophils % (A) 0 %; HCT 33.5 % (34.0-46.0); HGB 10.5 gm/dL (11.4-16.0); Hypochromasia Moderate; Lymphocytes % (A) 5 %; MCH 30.1 pg (25.0-35.0); MCHC 31.4 g/dL (31.0-37.0); MCV 95.7 fL (80.0-100.0); Mean Platelet Volume 8.1; Monocytes # (A) 0.5 k/uL (0-1.0); Monocytes % (A) 3 %; Neutrophils # (A) 18.3 k/uL (1.3-7.7); Neutrophils % (A) 92 %; Platelet Count 376 k/uL (150-450); RDW 15.5 % (11.5-15.5)
[2023-03-05] MEDS ORDERED: FUROSEMIDE 10 MG/ML 4 ML VIAL IV STA (08:16)
[2023-03-05] MEDS ORDERED: VANCOMYCIN IV PER PHARMACY 1 EACH MISC MISCELLANE PRN (08:18)
[2023-03-05 08:35] LABS: African American GFR (CKD) 27 (>60 ml/min/1.73 sqM); Anion Gap 11 mmol/L; Blood Urea Nitrogen 42 mg/dL (7-17); Calcium 9.2 mg/dL (8.4-10.2); Carbon Dioxide 28 mmol/L (22-30); Chloride 96 mmol/L (98-107); Glucose 192 mg/dL (74-99); Non-African American GFR(CKD) 24 (>60 ml/min/1.73 sqM); Potassium 4.3 mmol/L (3.5-5.1); Sodium 135 mmol/L (137-145)
[2023-03-05] MEDS: MIDODRINE 5 MG TAB PO SCH ×4 (09:00→20:04)
[2023-03-05] MEDS ORDERED: CEFEPIME 2 GM in SODIUM CHLORIDE 0.9% 100 ML IVPB SCH (09:00)
[2023-03-05] MEDS ORDERED: VANCOMYCIN 1,500 MG in SODIUM CHLORIDE 0.9% 500 ML 500 ML IVPB ONE (09:00)
[2023-03-05] MEDS: HYDROcodone/APAP 5-325MG 1 EACH TAB PO PRN ×2 (10:11→20:03)
[2023-03-05] MEDS: GABAPENTIN 100 MG CAP PO SCH ×3 (10:12→20:03)
[2023-03-05] MEDS: METOPROLOL TARTRATE 50 MG TAB PO SCH ×2 (10:12→20:04)
[2023-03-05] MEDS: BUMETANIDE 1 MG TAB PO SCH (10:12)
[2023-03-05] MEDS: AMIODARONE 200 MG TAB PO SCH (10:13)
[2023-03-05] MEDS: APIXABAN 2.5 MG TABLET PO SCH ×2 (10:13→20:04)
--- NOTE | 2023-03-05 11:36 | P.PN ---
Subjective Patient is seen in follow-up for chronic kidney disease. Renal function worse from diuresis. However patient's baseline creatinine has been near 2. Nonoliguric. On Levophed. Patient is on oral Bumex. Currently on BiPAP. Chest x-ray showed right lung opacification. Vital signs are stable. On Levophed. General: No acute distress. HEENT: Head exam is unremarkable. On BiPAP. LUNGS: No audible rhonchi or wheezes. HEART: Rate and Rhythm are regular. ABDOMEN: Nontender. EXTREMITITES: No edema. Objective - Vital Signs Vital signs: Vital Signs Temp 98.6 F 03/05/23 08:00 Pulse 68 03/05/23 11:12 Resp 23 03/05/23 11:00 BP 88/34 03/05/23 11:00 Pulse Ox 94 L 03/05/23 11:00 FiO2 50 03/05/23 11:24 Intake & Output 03/04/23 03/05/23 03/05/23 18:59 06:59 18:59 Intake Total 275.054 240.142 5376 Output Total 520 740 200 Balance -244.946 -536.421 850 Weight 79.5 kg Intake: IV 686 363 7225 KVO 120 120 50 Vancomycin 1,500 mg In 500 Sodium Chloride 0.9% 500 ml 500 ml @ 167 mls/hr IVPB ONCE ONE Rx#: [id number] Vancomycin 1,500 mg In 500 Sodium Chloride 0.9% 500 ml 500 ml @ 167 mls/hr IVPB ONCE ONE Rx#: [id number] cefTRIAXone 2 gm In 50 Sodium Chloride 0.9% 50 ml @ 100 mls/hr IVPB Q24HR [facility] Rx#:[id number] Intake, IV Titration 105.054 83.579 Amount Norepinephrine 4 mg In 105.054 83.579 Sodium Chloride 0.9% 250 ml @ 0.03 MCG/KG/MIN 8. 767 mls/hr IV .Q24H [facility] Rx#:[id number] Output: Urine 520 740 200 Other: Voiding Method Indwelling Catheter Indwelling Catheter - Labs CBC & Chem 7: 03/05/23 07:45 03/05/23 07:45 Labs: Abnormal Lab Results - Last 24 Hours (Table) 03/04/23 03/05/23 03/05/23 Range/Units 17:48 06:42 07:45 WBC 20.0 H (3.8-10.6) k/uL RBC 3.50 L (3.80-5.40) m/uL Hgb 10.5 L (11.4-16.0) gm/dL Hct 33.5 L (34.0-46.0) % Neutrophils # 18.3 H (1.3-7.7) k/uL ABG pCO2 55 H 50 H (35-45) mmHg ABG pO2 64 L 46 L* (83-108) mmHg ABG HCO3 32 H 31 H (21-25) mmol/L ABG Total CO2 34 H 33 H (19-24) mmol/L ABG O2 Saturation 92.1 L 82.9 L (94-97) % Sodium (137-145) mmol/L Chloride (98-107) mmol/L BUN (7-17) mg/dL Creatinine (0.52-1.04) mg/dL Glucose (74-99) mg/dL 03/05/23 Range/Units 07:45 WBC (3.8-10.6) k/uL RBC (3.80-5.40) m/uL Hgb (11.4-16.0) gm/dL Hct (34.0-46.0) % Neutrophils # (1.3-7.7) k/uL ABG pCO2 (35-45) mmHg ABG pO2 (83-108) mmHg ABG HCO3 (21-25) mmol/L ABG Total CO2 (19-24) mmol/L ABG O2 Saturation (94-97) % Sodium 135 L (137-145) mmol/L Chloride 96 L (98-107) mmol/L BUN 42 H (7-17) mg/dL Creatinine 2.10 H (0.52-1.04) mg/dL Glucose 192 H (74-99) mg/dL Assessment and Plan Plan: Assessment: 1. Chronic kidney disease stage IV with baseline creatinine near 2 secondary to cardiorenal syndrome and nephrosclerosis. Atrophic kidneys noted on renal ultrasound done January 2023. 2. A. fib with RVR maintained on amiodarone and Lopressor. Status post cardioversion and ARCADIO. 3. Hypotension maintained on Levophed. Also on midodrine. 4. Hypervolemic hyponatremia. Stable. 5. Hypokalemia from diuresis. Replaced. Better. 6. Acute on chronic systolic CHF with ejection fraction of 40% with moderate aortic insufficiency. 7. History of coronary artery disease with cardiac stenting. 8. Volume overload. Improving with diuresis. 9. Hypomagnesemia from diuresis. Replaced. Better. 10. Right lung opacification. Possibly mucous plug. Hematology following. Plan: Maintain Bumex. IV Lasix 40 mg once this afternoon. Maintain midodrine. Hold for systolic blood pressure greater than 110. Farxiga stopped due to hypotension. Wean Levophed. Avoid nephrotoxins. Continue to monitor renal function and urine output. Cortisol level not low.
--- NOTE | 2023-03-05 11:37 | P.PN ---
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 She presented to the emergency department with complaints of generalized weakness, intermittent chest pain, shortness of breath, and a headache. Patient was scheduled for cardiac ablation on 03/05/[address] Stockton. Vital signs upon arrival show blood pressure 133/82, heart rate 118, respiratory rate 22, temp 98.8F, SpO2 of 99% on room air. EKG completed showing atrial fibrillation with RVR at 125 bpm. Chest x-ray showed no acute cardiopulmonary process. CT head showing no acute intercranial process. WBC count 11.4. Coagulation profile showing PT of 13.4, INR 1.3, and D-dimer at 1.97, D-dimer is chronically elevated and currently at baseline. BMP revealing sodium 130, potassium of 3.4, chloride of 94, bicarb of 21, anion gap 15. BMP also consistent with patient's known chronic stage IV kidney disease with BUN of 30, creatinine 1.81, and GFR of 28 with baseline creatinine of 1.9. Troponin was negative at less than 0.012. ProBNP 3970 which is significantly improved from previous BNP of 11,800. Covid PCR, influenza A, influenza B, and RSV were negative. Patient was admitted under our services secondary to intermittent chest pain and atrial fibrillation with consultation to cardiology. Troponins trended overnight and all were negative at less than 0.012, 0.012, and less than 0.012. Urinalysis was obtained and was abnormal showing positive for protein, ketones, and leukocytosis with 9 RBCs and 18 WBCs. However, patient did have urinary symptoms. Patient became hypotensive on 02/27. Was transferred to medical ICU. Started on norepinephrine. Continue to remain in atrial fibrillation with RVR. Was also started on Lasix drip. Echocardiogram showed slightly reduced LVEF of 40% with global hypokinesis, moderate aortic insufficiency. She had ARCADIO and cardioversion on 03/02, now converted to sinus rhythm. Lasix drip transitioned to IV push 03/03. 03/04 Patient was seen and examined. BP 110/62 HR 61. Currently on 6L NC. Maintaining sinus rhythm. Currently on Amiodarone 200 mg PO QD and Eliquis 2.5 mg PO BID for AC. Lasix IV transitioned to Bumex 1 mg PO QD. Antibiotics include Rocephin 2g IV QD for treatment of UTI. She remains on Levophed at 0.01 mcg/kg/min. CBC Hg 10.8. BMP Na 135, Cl 95, BUN 36, Cr 1.8, glu 140. Mag 2.5. CXR showing interstitial edema, not much changed from 03/02. 03/05 Patient was seen and examined. BP 111/71 HR 70. Currently on Airvo 50L FiO2 90%. Maintaining sinus rhythm. Currently on Amiodarone 200 mg PO QD and Eliquis 2.5 mg PO BID for AC. CXR shows complete opacification of the right lung and pulmonary vascular congestion. Concerns for mucus plugging. CBC WBC 20, Hg 10.5. ABG pH 7.4, pO2 50. One dose of Lasix 40 mg IV ordered. Antibiotics escalated to Vancomycin and Cefepime. Blood cultures, Lactic acid, Procal, and COVID test ordered. She remains on Levophed at 0.02 mcg/kg/min. General: nontoxic, no distress, appears at stated age, chronically ill-appearing Derm: warm, dry, pale Head: atraumatic, normocephalic, symmetric Eyes: EOMI, no lid lag, anicteric sclera Mouth: no lip lesion, mucus membranes moist Cardiovascular: S1S2 regular, systolic murmur Lungs: Bibasilar rales throughout L > R, no accessory muscle use, Airvo 50 L Abdominal: soft, nontender to palpation, no guarding, no appreciable organomegaly Ext: no gross muscle atrophy, no edema, no contractures Neuro: no focal neuro deficits Psych: Alert, oriented, appropriate affect Based on my assessment of this patient, this patient meets a high complexity level of care. Patient has an acute diagnosis of cardiogenic shock requiring pressors that poses a threat to life or bodily function. Found to be in A-Fib RVR s/p cardioversion on 03/02. Currently being treated for UTI and CHF/COPD exacerbation. Acute on chronic hypoxic respiratory failure Acute right sided lung opacification with sepsis: Concerns for mucus plug. Likely need bronch? Given new lekocytosis, started on broad spectrum Abx with Vancomycin dosed per pharmacy and Cefepime 2g IV Q8H. Blood cultures, Lactic acid, Pro-real, COVID 19 ordered. Paroxysmal atrial fibrillation with RVR: Status post cardioversion 03/02, now in sinus. Amiodarone 200 mg PO QD. Metoprolol 50 mg PO BID. Eliquis 2.5 mg PO BID for AC. Cardiogenic shock: Levophed to maintain MAP > 65. Acute on chronic diastolic and systolic CHF, EF 40%: Bumex 1 mg PO QD. Metoprolol as above. Acute COPD exacerbation: SoluMedrol 40 mg IV Q8H. DuoNeb scheduled and PRN for SOB/wheezing. Symbicort INH BID. History of interstitial pulmonary fibrosis History of CAD status post stent: Lipitor 20 mg PO QHS. Would benefit from ASA. Acute on chronic renal failure: Resolving. GFR and Cr appears at baseline. Resolved: Hypokalemia, Hypomagnesemia CODE STATUS: FULL CODE DVT Prophylaxis: Eliquis GI Prophylaxis: Protonix Designated medical POA if patient is not able to make medical decisions for themselves: I have reviewed the following independent marketing consultant notes: Cardiology, Pulmonology note. I have reviewed the results of the following tests: CBC, BMP. I have ordered the following tests: Blood cultures, Lactic acid, Pro-real, COVID 19 I have discussed the care of this patient with the following independent historian: Discussed with RN. I have independently interpreted the following test below: CXR as above. I have discussed the management of this patient with the following physician: This patient has a high risk of morbidity due to the following reasons: Patient requires IV vasopressors which requires intensive monitoring of hemodynamics. Objective - Vital Signs Vital signs: Vital Signs Temp 97.4 F L 03/05/23 04:00 Pulse 70 03/05/23 07:00 Resp 12 03/05/23 07:00 BP 111/71 03/05/23 07:00 Pulse Ox 98 03/05/23 07:23 FiO2 90 03/05/23 07:23 Intake & Output 03/04/23 03/05/23 03/05/23 18:59 06:59 18:59 Intake Total 275.054 203.579 10 Output Total 520 740 30 Balance -244.946 -536.421 -20 Weight 79.5 kg Intake: IV 170 120 10 KVO 120 120 10 cefTRIAXone 2 gm In 50 Sodium Chloride 0.9% 50 ml @ 100 mls/hr IVPB Q24HR [facility] Rx#:[id number] Intake, IV Titration 105.054 83.579 Amount Norepinephrine 4 mg In 105.054 83.579 Sodium Chloride 0.9% 250 ml @ 0.03 MCG/KG/MIN 8. 767 mls/hr IV .Q24H [facility] Rx#:[id number] Output: Urine 520 740 30 Other: Voiding Method Indwelling Catheter Indwelling Catheter - Labs CBC & Chem 7: 03/05/23 07:45 03/05/23 07:45 Labs: Abnormal Lab Results - Last 24 Hours (Table) 03/04/23 03/05/23 03/05/23 Range/Units 17:48 06:42 07:45 WBC 20.0 H (3.8-10.6) k/uL RBC 3.50 L (3.80-5.40) m/uL Hgb 10.5 L (11.4-16.0) gm/dL Hct 33.5 L (34.0-46.0) % Neutrophils # 18.3 H (1.3-7.7) k/uL ABG pCO2 55 H 50 H (35-45) mmHg ABG pO2 64 L 46 L* (83-108) mmHg ABG HCO3 32 H 31 H (21-25) mmol/L ABG Total CO2 34 H 33 H (19-24) mmol/L ABG O2 Saturation 92.1 L 82.9 L (94-97) %
[2023-03-05] MEDS: LIDOCAINE 4% PATCH TOPICAL SCH (11:39)
[2023-03-05] MEDS: methylPREDNISolone SOD SUCCI 125 MG/2 ML VIAL IV SCH ×2 (11:58→17:52)
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
[2023-03-05] MEDS ORDERED: ONDANSETRON 4 MG/2 ML VIAL IVP PRN (12:50)
--- NOTE | 2023-03-05 17:58 | P.PN ---
Subjective Progress Note Date: 03/05/23 The patient is a pleasant 68-year-old female patient who is known to our service from before with CAD and prior angioplasty as well as hypertension and dyslipidemia and paroxysmal atrial fibrillation and chronic kidney disease. She presented to the hospital because she has not been feeding well. She has been tired and fatigued and lately she has been experiencing increasing shortness of breath with exertion and relieved the chest discomfort with exertion as well. She was seen recently by myself in the office as an outpatient for a follow-up myocardial perfusion imaging stress test came in to be abnormal showing high risk features and she is scheduled to undergo a heart catheterization as an out patient. During this admission she underwent a workup including EKG showing atrial fibrillation with nonspecific changes and troponin came in to be unremarkable. Her kidney function is abnormal and above her baseline. Beside that she underwent a UA and that came in to be abnormal showing possible UTI. The examination is remarkable for irregular rhythm with clear breathing sounds bilaterally and no edema was noted in the lower extremities. 03/03/23 Patient was seen and examined with the decision. Patient underwent ARCADIO cardioversion procedure yesterday and she has continued to be normal sinus rhythm. She continues to be on low-dose norepinephrine drip. Blood pressure 90/60, heart rate 60 to 70s bpm, sinus rhythm Hemoglobin 11, BUN 13, creatinine 1.4. Creatinine has improved from 1.8 yesterday. 03/04/23 Patient still continues to be significantly short of breath. On exam she has significant wheezing and reduced air entry Lab shows hemoglobin 10.8, sodium 135, creatinine 1.8, BUN 36. Yesterday creatinine was 1.4. Day before yesterday creatinine was 1.8. ABG showed pH 7.3, CO2 55, O2 64 Blood pressure 110/65 mmHg, heart rate 74 beats a minute next line telemetry shows sinus rhythm On norepinephrine drip 0.04 mics Also on midodrine. 03/05/23 Patient is seen and examined at bedside. Patient appears slightly better as compared to yesterday. She was able to wear BiPAP for few hours in the day. She received 1 dose of IV Lasix as per nephrology. Her creatinine is 2.2 today. Yesterday it was 1.8 On exam Respiratory: Wheezing is less as compared to yesterday. Better air entry in bilateral lung sanchez as compared to yesterday Cardio vascular: S1 and S2 audible, regular rhythm, no murmurs appreciated Extremities: No significant edema Neurological: No focal deficits Assessment Hypoxic respiratory failure Acute COPD exacerbation Persistent atrial fibrillation status post cardioversion 03/02/2023, currently normal sinus rhythm Acute on chronic renal failure, resolving. Margin a low blood pressure/hypertension, on low-dose norepinephrine Coronary artery disease Heart failure with reduced EF 40% Echo showed LVEF 40-45% Plan Continue metoprolol 50 mg twice a day. Continue amiodarone 200mg daily. Continue Eliquis 2.5 mg daily Patient is on by mouth Bumex 1 mg daily. Patient received 1 dose of IV Lasix last night and one dose of IV Lasix this morning. Her creatinine has slightly trended up. I would recommend to hold her additional IV diuretic therapy and should just maintain PO bumex. Abdomen BiPAP support as tolerated Incentive spirometry Objective - Vital Signs Vital signs: Vital Signs Temp 98.9 F 03/05/23 16:00 Pulse 70 03/05/23 17:30 Resp 16 03/05/23 17:30 BP 122/68 03/05/23 17:30 Pulse Ox 97 03/05/23 17:30 FiO2 90 03/05/23 16:40 Intake & Output 03/04/23 03/05/23 03/05/23 18:59 06:59 18:59 Intake Total 275.054 203.579 745.43 Output Total 520 740 370 Balance -244.946 -536.421 375.43 Weight 79.5 kg Intake: IV 170 120 690 Cefepime 2 gm In Sodium 100 Chloride 0.9% 100 ml @ 25 mls/hr IVPB Q8HR [facility] Rx# :[id number] KVO 120 120 90 Vancomycin 1,500 mg In 500 Sodium Chloride 0.9% 500 ml 500 ml @ 167 mls/hr IVPB ONCE ONE Rx#: [id number] cefTRIAXone 2 gm In 50 Sodium Chloride 0.9% 50 ml @ 100 mls/hr IVPB Q24HR [facility] Rx#:[id number] Intake, IV Titration 105.054 83.579 55.43 Amount Norepinephrine 4 mg In 105.054 83.579 55.43 Sodium Chloride 0.9% 250 ml @ 0.03 MCG/KG/MIN 8. 767 mls/hr IV .Q24H [facility] Rx#:[id number] Output: Urine 520 740 370 Other: Voiding Method Indwelling Catheter Indwelling Catheter Indwelling Catheter - Labs CBC & Chem 7: 03/05/23 07:45 03/05/23 07:45 Labs: Abnormal Lab Results - Last 24 Hours (Table) 03/05/23 03/05/23 03/05/23 Range/Units 06:42 07:45 07:45 WBC 20.0 H (3.8-10.6) k/uL RBC 3.50 L (3.80-5.40) m/uL Hgb 10.5 L (11.4-16.0) gm/dL Hct 33.5 L (34.0-46.0) % Neutrophils # 18.3 H (1.3-7.7) k/uL ABG pCO2 50 H (35-45) mmHg ABG pO2 46 L* (83-108) mmHg ABG HCO3 31 H (21-25) mmol/L ABG Total CO2 33 H (19-24) mmol/L ABG O2 Saturation 82.9 L (94-97) % Sodium 135 L (137-145) mmol/L Chloride 96 L (98-107) mmol/L BUN 42 H (7-17) mg/dL Creatinine 2.10 H (0.52-1.04) mg/dL Glucose 192 H (74-99) mg/dL Procalcitonin (0.02-0.09) ng/mL 03/05/23 Range/Units 10:25 WBC (3.8-10.6) k/uL RBC (3.80-5.40) m/uL Hgb (11.4-16.0) gm/dL Hct (34.0-46.0) % Neutrophils # (1.3-7.7) k/uL ABG pCO2 (35-45) mmHg ABG pO2 (83-108) mmHg ABG HCO3 (21-25) mmol/L ABG Total CO2 (19-24) mmol/L ABG O2 Saturation (94-97) % Sodium (137-145) mmol/L Chloride (98-107) mmol/L BUN (7-17) mg/dL Creatinine (0.52-1.04) mg/dL Glucose (74-99) mg/dL Procalcitonin 0.13 H (0.02-0.09) ng/mL
[2023-03-05] MEDS: NOREPINEPHRINE 4 MG in SODIUM CHLORIDE 0.9% 250 ML IV SCH (18:00)
[2023-03-05] MEDS: FORMOTEROL FUMARATE 20 MCG/2 ML NEBU INHALATION SCH (19:27)
[2023-03-05] MEDS: BUDESONIDE 1 MG/2 ML NEBU INHALATION SCH (19:27)
[2023-03-05] MEDS: CEFEPIME 1 GM in SODIUM CHLORIDE 0.9% 50 ML IVPB SCH (19:58)
[2023-03-05] MEDS: SERTRALINE 100 MG TAB PO SCH (20:03)
[2023-03-05] MEDS: ATORVASTATIN 20 MG TAB PO SCH (20:03)
[2023-03-06] MEDS: methylPREDNISolone SOD SUCCI 125 MG/2 ML VIAL IV SCH ×4 (00:04→18:28)
[2023-03-06] MEDS: LEVOTHYROXINE 75 MCG TAB PO SCH (06:13)
[2023-03-06 06:14] LABS: Basophils % (A) 0 %; Eosinophils % (A) 0 %; HCT 29.7 % (34.0-46.0); HGB 9.4 gm/dL (11.4-16.0); Hypochromasia Marked; Lymphocytes # (A) 0.8 k/uL (1.0-4.8); Lymphocytes % (A) 4 %; MCH 30.1 pg (25.0-35.0); MCHC 31.6 g/dL (31.0-37.0); MCV 95.2 fL (80.0-100.0); Monocytes # (A) 0.7 k/uL (0-1.0); Monocytes % (A) 3 %; Neutrophils # (A) 18.5 k/uL (1.3-7.7); Neutrophils % (A) 92 %; Platelet Count 289 k/uL (150-450); Poikilocytosis Slight; RBC 3.12 m/uL (3.80-5.40); RDW 15.9 % (11.5-15.5); WBC 20.1 k/uL (3.8-10.6)
[2023-03-06 06:16] LABS: African American GFR (CKD) 38 (>60 ml/min/1.73 sqM); Anion Gap 6 mmol/L; Blood Urea Nitrogen 49 mg/dL (7-17); Calcium 8.7 mg/dL (8.4-10.2); Carbon Dioxide 28 mmol/L (22-30); Chloride 100 mmol/L (98-107); Glucose 137 mg/dL (74-99); Non-African American GFR(CKD) 33 (>60 ml/min/1.73 sqM); Sodium 134 mmol/L (137-145)
[2023-03-06] MEDS: IPRATROPIUM-ALBUTEROL 3 ML NEB INHALATION SCH ×3 (08:03→19:56)
[2023-03-06] MEDS: BUDESONIDE 1 MG/2 ML NEBU INHALATION SCH ×2 (08:03→19:56)
[2023-03-06] MEDS: FORMOTEROL FUMARATE 20 MCG/2 ML NEBU INHALATION SCH ×2 (08:03→19:56)
[2023-03-06] MEDS: CEFEPIME 1 GM in SODIUM CHLORIDE 0.9% 50 ML IVPB SCH ×2 (08:26→21:22)
[2023-03-06] MEDS: PANTOPRAZOLE 40 MG/10 ML VIAL IVP SCH (08:26)
[2023-03-06] MEDS ORDERED: VANCOMYCIN 1,500 MG in SODIUM CHLORIDE 0.9% 500 ML 500 ML IVPB ONE (09:00)
--- NOTE | 2023-03-06 09:29 | XR ---
EXAMINATION TYPE: XR chest 1V portable DATE OF EXAM: 03/06/2023 COMPARISON: 03/05/2023 INDICATION: Comparison: Previous abnormal TECHNIQUE: Single frontal view of the chest is obtained. FINDINGS: The heart size is prominent. The pulmonary vasculature is prominent. Diffuse increased lung markings are present bilaterally. There is improved aeration through the right lung. IMPRESSION: 1. Diffuse bilateral lung infiltrates. Correlate for pulmonary edema and CHF. Infectious etiology can be considered. Right lung findings are improving. 2. Cardiomegaly with prominent pulmonary vascular markings
[2023-03-06] MEDS: METOPROLOL TARTRATE 50 MG TAB PO SCH ×2 (09:36→21:22)
[2023-03-06] MEDS: APIXABAN 2.5 MG TABLET PO SCH ×2 (09:36→21:22)
[2023-03-06] MEDS: AMIODARONE 200 MG TAB PO SCH (09:36)
[2023-03-06] MEDS: BUMETANIDE 1 MG TAB PO SCH (09:36)
[2023-03-06] MEDS: GABAPENTIN 100 MG CAP PO SCH ×3 (09:36→21:22)
[2023-03-06] MEDS: MIDODRINE 5 MG TAB PO SCH ×4 (09:36→21:19)
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
--- NOTE | 2023-03-06 10:32 | P.PN ---
Subjective Patient is seen for follow-up for chronic kidney disease and acute kidney injury. She is currently being diuresed for volume overload. Levo fed is off. Currently off of BiPAP and maintained on nasal cannula at 15 L. Good urine output Serum creatinine decreased to 1.6 today. Objective - Vital Signs Vital signs: Vital Signs Temp 97.6 F 03/06/23 08:00 Pulse 73 03/06/23 09:30 Resp 18 03/06/23 09:30 BP 107/82 03/06/23 09:30 Pulse Ox 98 03/06/23 09:30 FiO2 50 03/06/23 04:12 Intake & Output 03/05/23 03/06/23 03/06/23 18:59 06:59 18:59 Intake Total 1012.43 128.036 630 Output Total 595 680 140 Balance 417.43 -551.964 490 Weight 84 kg Intake: IV 720 120 630 Cefepime 2 gm In Sodium 100 100 Chloride 0.9% 100 ml @ 25 mls/hr IVPB Q8HR [facility] Rx# :[id number] KVO 120 120 30 Vancomycin 1,500 mg In 500 500 Sodium Chloride 0.9% 500 ml 500 ml @ 167 mls/hr IVPB ONCE ONE Rx#: [id number] Intake, IV Titration 55.43 8.036 Amount Norepinephrine 4 mg In 55.43 8.036 Sodium Chloride 0.9% 250 ml @ 0.03 MCG/KG/MIN 8. 767 mls/hr IV .Q24H [facility] Rx#:[id number] Oral 237 Output: Urine 595 680 140 Other: Voiding Method Indwelling Catheter Indwelling Catheter - Exam Patient is awake, comfortable, alert oriented 3 No acute distress Examination of the heart S1 and S2 Examination the lungs decreased breath sounds at the bases Abdomen is soft nontender Examination lower extremity shows no significant edema - Labs CBC & Chem 7: 03/06/23 05:21 03/06/23 05:21 Labs: Abnormal Lab Results - Last 24 Hours (Table) 03/05/23 03/06/23 03/06/23 Range/Units 10:25 05:21 05:21 WBC 20.1 H (3.8-10.6) k/uL RBC 3.12 L (3.80-5.40) m/uL Hgb 9.4 L (11.4-16.0) gm/dL Hct 29.7 L (34.0-46.0) % RDW 15.9 H (11.5-15.5) % Neutrophils # 18.5 H (1.3-7.7) k/uL Lymphocytes # 0.8 L (1.0-4.8) k/uL Sodium 134 L (137-145) mmol/L BUN 49 H (7-17) mg/dL Creatinine 1.60 H (0.52-1.04) mg/dL Glucose 137 H (74-99) mg/dL Procalcitonin 0.13 H (0.02-0.09) ng/mL Assessment and Plan Assessment: 1. Chronic kidney disease stage IV with baseline creatinine 1.5 - 2 secondary to cardiorenal syndrome and nephrosclerosis. Fluctuation in renal function based on volume status and diuresis. Atrophic kidneys noted on renal ultrasound done January 2023. 2. A. fib with RVR maintained on amiodarone and Lopressor. Status post cardioversion and ARCADIO. 3. Hypotension status post levo fed Also on midodrine. 4. Hypervolemic hyponatremia. Stable. 5. Hypokalemia from diuresis. Replaced. Better. 6. Acute on chronic systolic CHF with ejection fraction of 40% with moderate aortic insufficiency. 7. History of coronary artery disease with cardiac stenting. 8. Volume overload. Improving with diuresis. 9. Hypomagnesemia from diuresis. Replaced. Better. 10. Right lung opacification. Possibly mucous plug. Pulmonology following. Plan: Continue with oral Bumex Continue midodrine Repeat labs in a.m. Monitor vancomycin levels closely.
[2023-03-06] MEDS: LIDOCAINE 4% PATCH TOPICAL SCH (10:47)
[2023-03-06] MEDS: HYDROcodone/APAP 5-325MG 1 EACH TAB PO PRN ×2 (12:08→21:22)
--- NOTE | 2023-03-06 13:44 | P.PN ---
Subjective Progress Note Date: 03/06/23 67-year-old female with a past medical history of chronic hypoxic respiratory failure secondary to COPD on home oxygen at 2 L at all times, CAD with stent, paroxysmal atrial fibrillation on anticoagulation with Eliquis, HFpEF, hypertension, hyperlipidemia, chronic kidney disease stage IV, hypothyroidism, and history of a closed head injury with deficit a residual memory impairment. She presented to the emergency department with complaints of generalized weakness, intermittent chest pain, shortness of breath, and a headache. Patient was scheduled for cardiac ablation on 03/05/[address] Stockton. Vital signs upon arrival show blood pressure 133/82, heart rate 118, respiratory rate 22, temp 98.8F, SpO2 of 99% on room air. EKG completed showing atrial fibrillation with RVR at 125 bpm. Chest x-ray showed no acute cardiopulmonary process. CT head showing no acute intercranial process. WBC count 11.4. Coagulation profile showing PT of 13.4, INR 1.3, and D-dimer at 1.97, D-dimer is chronically elevated and currently at baseline. BMP revealing sodium 130, potassium of 3.4, chloride of 94, bicarb of 21, anion gap 15. BMP also consistent with patient's known chronic stage IV kidney disease with BUN of 30, creatinine 1.81, and GFR of 28 with baseline creatinine of 1.9. Troponin was negative at less than 0.012. ProBNP 3970 which is significantly improved from previous BNP of 11,800. Covid PCR, influenza A, influenza B, and RSV were negative. Patient was admitted under our services secondary to intermittent chest pain and atrial fibrillation with consultation to cardiology. Troponins trended overnight and all were negative at less than 0.012, 0.012, and less than 0.012. Urinalysis was obtained and was abnormal showing positive for protein, ketones, and leukocytosis with 9 RBCs and 18 WBCs. However, patient did have urinary symptoms. Patient became hypotensive on 02/27. Was transferred to medical ICU. Started on norepinephrine. Continue to remain in atrial fibrillation with RVR. Was also started on Lasix drip. Echocardiogram showed slightly reduced LVEF of 40% with global hypokinesis, moderate aortic insufficiency. She had ARCADIO and cardioversion on 03/02, now converted to sinus rhythm. Lasix drip transitioned to IV push 03/03. 03/04 Patient was seen and examined. BP 110/62 HR 61. Currently on 6L NC. Maintaining sinus rhythm. Currently on Amiodarone 200 mg PO QD and Eliquis 2.5 mg PO BID for AC. Lasix IV transitioned to Bumex 1 mg PO QD. Antibiotics include Rocephin 2g IV QD for treatment of UTI. She remains on Levophed at 0.01 mcg/kg/min. CBC Hg 10.8. BMP Na 135, Cl 95, BUN 36, Cr 1.8, glu 140. Mag 2.5. CXR showing interstitial edema, not much changed from 03/02. 03/05 Patient was seen and examined. BP 111/71 HR 70. Currently on Airvo 50L FiO2 90%. Maintaining sinus rhythm. Currently on Amiodarone 200 mg PO QD and Eliquis 2.5 mg PO BID for AC. CXR shows complete opacification of the right lung and pulmonary vascular congestion. Concerns for mucus plugging. CBC WBC 20, Hg 10.5. ABG pH 7.4, pO2 50. One dose of Lasix 40 mg IV ordered. Antibiotics escalated to Vancomycin and Cefepime. Blood cultures, Lactic acid, Procal, and COVID test ordered. She remains on Levophed at 0.02 mcg/kg/min. 03/06 Patient was seen and examined. Breathing improved. Currently of HFNC 15L. Weaned off Levophed. Currently on Vanomycin and Cefepime. CXR considerably i mproved aeration of the R lung compared to yesterday. CBC WBC 20.1, Hg 9.4. BMP Na 134, BUN 49, Cr 1.6, glu 137. Procal 0.13. Lactic acid 1.7. COVID 19 negative. General: nontoxic, no distress, appears at stated age, chronically ill-appearing Derm: warm, dry, pale Head: atraumatic, normocephalic, symmetric Eyes: EOMI, no lid lag, anicteric sclera Mouth: no lip lesion, mucus membranes moist Cardiovascular: S1S2 regular, systolic murmur Lungs: Bibasilar rales throughout L > R, no accessory muscle use, Airvo 50 L Abdominal: soft, nontender to palpation, no guarding, no appreciable organomegaly Ext: no gross muscle atrophy, no edema, no contractures Neuro: no focal neuro deficits Psych: Alert, oriented, appropriate affect Based on my assessment of this patient, this patient meets a high complexity level of care. Patient has an acute diagnosis of cardiogenic shock requiring pressors that poses a threat to life or bodily function. Found to be in A-Fib RVR s/p cardioversion on 03/02. Currently being treated for UTI and CHF/COPD exacerbation. Acute on chronic hypoxic respiratory failure Acute right sided lung opacification with sepsis: Concerns for mucus plug. BiPAP as tolerated. Procal negative. CXR improved. Consider deescalating Vancomycin and Cefepime. Blood cultures are pending. Paroxysmal atrial fibrillation with RVR: Status post cardioversion 03/02, now in sinus. Amiodarone 200 mg PO QD. Metoprolol 50 mg PO BID. Eliquis 2.5 mg PO BID for AC. Cardiogenic shock: Levophed to maintain MAP > 65. Acute on chronic diastolic and systolic CHF, EF 40%: Bumex 1 mg PO QD. Metop rolol as above. Acute COPD exacerbation: SoluMedrol 40 mg IV Q8H. DuoNeb scheduled and PRN for SOB/wheezing. Symbicort INH BID. History of interstitial pulmonary fibrosis History of CAD status post stent: Lipitor 20 mg PO QHS. Would benefit from ASA. Acute on chronic renal failure: Resolving. GFR and Cr appears at baseline. Resolved: Hypokalemia, Hypomagnesemia CODE STATUS: FULL CODE DVT Prophylaxis: Eliquis GI Prophylaxis: Protonix Designated medical POA if patient is not able to make medical decisions for themselves: I have reviewed the following decorating consultant notes: Cardiology, Nephrology, Pulmonology note. I have reviewed the results of the following tests: CBC, BMP, Procal, Lactic acid, COVID 19 I have ordered the following tests: Blood cultures pending I have discussed the care of this patient with the following independent historian: Discussed with RN. I have independently interpreted the following test below: CXR as above. I have discussed the management of this patient with the following physician: Objective - Vital Signs Vital signs: Vital Signs Temp 97.6 F 03/06/23 04:00 Pulse 78 03/06/23 08:38 Resp 19 03/06/23 07:00 BP 122/76 03/06/23 07:00 Pulse Ox 97 03/06/23 08:07 FiO2 50 03/06/23 04:12 Intake & Output 03/05/23 03/06/23 03/06/23 18:59 06:59 18:59 Intake Total 1012.43 128.036 10 Output Total 595 680 40 Balance 417.43 -551.964 -30 Weight 84 kg Intake: IV 720 120 10 Cefepime 2 gm In Sodium 100 Chloride 0.9% 100 ml @ 25 mls/hr IVPB Q8HR [facility] Rx# :[id number] KVO 120 120 10 Vancomycin 1,500 mg In 500 Sodium Chloride 0.9% 500 ml 500 ml @ 167 mls/hr IVPB ONCE ONE Rx#: [id number] Intake, IV Titration 55.43 8.036 Amount Norepinephrine 4 mg In 55.43 8.036 Sodium Chloride 0.9% 250 ml @ 0.03 MCG/KG/MIN 8. 767 mls/hr IV .Q24H [facility] Rx#:[id number] Oral 237 Output: Urine 595 680 40 Other: Voiding Method Indwelling Catheter Indwelling Catheter - Labs CBC & Chem 7: 03/06/23 05:21 03/06/23 05:21 Labs: Abnormal Lab Results - Last 24 Hours (Table) 03/05/23 03/06/23 03/06/23 Range/Units 10:25 05:21 05:21 WBC 20.1 H (3.8-10.6) k/uL RBC 3.12 L (3.80-5.40) m/uL Hgb 9.4 L (11.4-16.0) gm/dL Hct 29.7 L (34.0-46.0) % RDW 15.9 H (11.5-15.5) % Neutrophils # 18.5 H (1.3-7.7) k/uL Lymphocytes # 0.8 L (1.0-4.8) k/uL Sodium 134 L (137-145) mmol/L BUN 49 H (7-17) mg/dL Creatinine 1.60 H (0.52-1.04) mg/dL Glucose 137 H (74-99) mg/dL Procalcitonin 0.13 H (0.02-0.09) ng/mL
[2023-03-06] MEDS: NOREPINEPHRINE 4 MG in SODIUM CHLORIDE 0.9% 250 ML IV SCH (14:04)
--- NOTE | 2023-03-06 18:02 | P.PN ---
Subjective Progress Note Date: 03/06/23 The patient is a pleasant 68-year-old female patient who is known to our service from before with CAD and prior angioplasty as well as hypertension and dyslipidemia and paroxysmal atrial fibrillation and chronic kidney disease. She presented to the hospital because she has not been feeding well. She has been tired and fatigued and lately she has been experiencing increasing shortness of breath with exertion and relieved the chest discomfort with exertion as well. She was seen recently by myself in the office as an outpatient for a follow-up myocardial perfusion imaging stress test came in to be abnormal showing high risk features and she is scheduled to undergo a heart catheterization as an out patient. During this admission she underwent a workup including EKG showing atrial fibrillation with nonspecific changes and troponin came in to be unremarkable. Her kidney function is abnormal and above her baseline. Beside that she underwent a UA and that came in to be abnormal showing possible UTI. The examination is remarkable for irregular rhythm with clear breathing sounds bilaterally and no edema was noted in the lower extremities. 03/03/23 Patient was seen and examined with the decision. Patient underwent ARCADIO cardioversion procedure yesterday and she has continued to be normal sinus rhythm. She continues to be on low-dose norepinephrine drip. Blood pressure 90/60, heart rate 60 to 70s bpm, sinus rhythm Hemoglobin 11, BUN 13, creatinine 1.4. Creatinine has improved from 1.8 yesterday. 03/04/23 Patient still continues to be significantly short of breath. On exam she has s ignificant wheezing and reduced air entry Lab shows hemoglobin 10.8, sodium 135, creatinine 1.8, BUN 36. Yesterday creatinine was 1.4. Day before yesterday creatinine was 1.8. ABG showed pH 7.3, CO2 55, O2 64 Blood pressure 110/65 mmHg, heart rate 74 beats a minute next line telemetry shows sinus rhythm On norepinephrine drip 0.04 mics Also on midodrine. 03/05/23 Patient is seen and examined at bedside. Patient appears slightly better as compared to yesterday. She was able to wear BiPAP for few hours in the day. She received 1 dose of IV Lasix as per nephrology. Her creatinine is 2.2 today. Yesterday it was 1.8 03/06/2023 Patient's creatinine has improved after holding the diuretics. I feel patient is euvolemic. Sodium 134, potassium 5, BUN 49, creatinine 1.6. Yesterday creatinine was 2.1. Hemoglobin 9.4 WBC 20 BP 118/72, heart rate 70 On exam Respiratory: Wheezing is less as compared to yesterday. Better air entry in bilateral lung sanchez as compared to yesterday Cardio vascular: S1 and S2 audible, regular rhythm, no murmurs appreciated Extremities: No significant edema Neurological: No focal deficits Assessment Hypoxic respiratory failure Acute COPD exacerbation Persistent atrial fibrillation status post cardioversion 03/02/2023, currently normal sinus rhythm Acute on chronic renal failure, resolving. Margin a low blood pressure/hypertension, on low-dose norepinephrine Coronary artery disease Heart failure with reduced EF 40% Echo showed LVEF 40-45% Plan Continue metoprolol 50 mg twice a day. Continue amiodarone 200mg daily. Continue Eliquis 2.5 mg daily. Low dose needs to be increased to full dose once anemia improves. Hold diuretic at this time. Tomorrow start low-dose Lasix 20 mg PO as a maintenance dose. BiPAP support as tolerated Incentive spirometry Objective - Vital Signs Vital signs: Vital Signs Temp 98.1 F 03/06/23 12:00 Pulse 74 03/06/23 15:45 Resp 18 03/06/23 15:00 BP 118/72 03/06/23 15:00 Pulse Ox 100 03/06/23 15:00 FiO2 50 03/06/23 04:12 Intake & Output 03/05/23 03/06/23 03/06/23 18:59 06:59 18:59 Intake Total 1012.43 128.036 680 Output Total 595 680 595 Balance 417.43 -551.964 85 Weight 84 kg Intake: IV 720 120 680 Cefepime 2 gm In Sodium 100 100 Chloride 0.9% 100 ml @ 25 mls/hr IVPB Q8HR [facility] Rx# :[id number] KVO 120 120 80 Vancomycin 1,500 mg In 500 500 Sodium Chloride 0.9% 500 ml 500 ml @ 167 mls/hr IVPB ONCE ONE Rx#: [id number] Intake, IV Titration 55.43 8.036 Amount Norepinephrine 4 mg In 55.43 8.036 Sodium Chloride 0.9% 250 ml @ 0.03 MCG/KG/MIN 8. 767 mls/hr IV .Q24H [facility] Rx#:[id number] Oral 237 Output: Urine 595 680 595 Other: Voiding Method Indwelling Catheter Indwelling Catheter Indwelling Catheter # Bowel Movements 1 - Labs CBC & Chem 7: 03/06/23 05:21 03/06/23 05:21 Labs: Abnormal Lab Results - Last 24 Hours (Table) 03/06/23 03/06/23 Range/Units 05:21 05:21 WBC 20.1 H (3.8-10.6) k/uL RBC 3.12 L (3.80-5.40) m/uL Hgb 9.4 L (11.4-16.0) gm/dL Hct 29.7 L (34.0-46.0) % RDW 15.9 H (11.5-15.5) % Neutrophils # 18.5 H (1.3-7.7) k/uL Lymphocytes # 0.8 L (1.0-4.8) k/uL Sodium 134 L (137-145) mmol/L BUN 49 H (7-17) mg/dL Creatinine 1.60 H (0.52-1.04) mg/dL Glucose 137 H (74-99) mg/dL Microbiology - Last 24 Hours (Table) 03/05/23 10:25 Blood Culture - Preliminary Blood
[2023-03-06] MEDS: ATORVASTATIN 20 MG TAB PO SCH (21:22)
[2023-03-06] MEDS: SERTRALINE 100 MG TAB PO SCH (21:41)
[2023-03-07] MEDS: methylPREDNISolone SOD SUCCI 125 MG/2 ML VIAL IV SCH ×5 (00:01→23:44)
[2023-03-07 06:16] LABS: HCT 28.3 % (34.0-46.0); HGB 8.9 gm/dL (11.4-16.0); Hypochromasia Marked; MCH 30.7 pg (25.0-35.0); MCHC 31.6 g/dL (31.0-37.0); Platelet Count 279 k/uL (150-450); RBC 2.91 m/uL (3.80-5.40); WBC 16.7 k/uL (3.8-10.6)
[2023-03-07 06:27] LABS: Chloride 101 mmol/L (98-107)
[2023-03-07 06:29] LABS: African American GFR (CKD) 35 (>60 ml/min/1.73 sqM); Anion Gap 7 mmol/L; Blood Urea Nitrogen 55 mg/dL (7-17); Calcium 8.8 mg/dL (8.4-10.2); Carbon Dioxide 28 mmol/L (22-30); Glucose 156 mg/dL (74-99); Non-African American GFR(CKD) 30 (>60 ml/min/1.73 sqM); Sodium 136 mmol/L (137-145)
[2023-03-07 06:48] LABS: African American GFR (CKD) 34 (>60 ml/min/1.73 sqM); Non-African American GFR(CKD) 30 (>60 ml/min/1.73 sqM)
[2023-03-07] MEDS: LEVOTHYROXINE 75 MCG TAB PO SCH (06:51)
[2023-03-07 06:54] LABS: Vancomycin,Random 22.1 ug/mL
[2023-03-07] MEDS: BUDESONIDE 1 MG/2 ML NEBU INHALATION SCH ×2 (08:07→19:32)
[2023-03-07] MEDS: IPRATROPIUM-ALBUTEROL 3 ML NEB INHALATION SCH ×3 (08:07→19:32)
[2023-03-07] MEDS: FORMOTEROL FUMARATE 20 MCG/2 ML NEBU INHALATION SCH ×2 (08:07→19:32)
[2023-03-07] MEDS ORDERED: FUROSEMIDE 20 MG TAB PO SCH (09:00)
[2023-03-07] MEDS: AMIODARONE 200 MG TAB PO SCH (09:57)
[2023-03-07] MEDS: MIDODRINE 5 MG TAB PO SCH ×4 (09:57→20:46)
[2023-03-07] MEDS: PANTOPRAZOLE 40 MG/10 ML VIAL IVP SCH (09:57)
[2023-03-07] MEDS: CEFEPIME 1 GM in SODIUM CHLORIDE 0.9% 50 ML IVPB SCH ×2 (09:57→20:47)
[2023-03-07] MEDS: METOPROLOL TARTRATE 50 MG TAB PO SCH ×2 (09:57→20:46)
[2023-03-07] MEDS: GABAPENTIN 100 MG CAP PO SCH ×3 (09:57→20:47)
[2023-03-07] MEDS: APIXABAN 2.5 MG TABLET PO SCH ×2 (09:57→20:46)
[2023-03-07] MEDS: BUMETANIDE 1 MG TAB PO SCH (09:57)
[2023-03-07] MEDS: HYDROcodone/APAP 5-325MG 1 EACH TAB PO PRN ×2 (09:58→20:46)
[2023-03-07] MEDS: LIDOCAINE 4% PATCH TOPICAL SCH (09:58)
--- NOTE | 2023-03-07 10:07 | XR ---
EXAMINATION TYPE: XR chest 1V portable DATE OF EXAM: 03/07/2023 COMPARISON: 03/06/2023 INDICATION: Chronic cough TECHNIQUE: Single frontal view of the chest is obtained. FINDINGS: The heart size is enlarged. The pulmonary vasculature is indistinct. There is diffuse increased opacity throughout the bilateral lung sanchez. Differential diagnosis could include pulmonary edema and pneumonia. Follow-up to clearing is recommended. Findings are significan tly worsening from comparison IMPRESSION: 1. Worsening diffuse bilateral lung infiltrates. Follow-up recommended.
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
--- NOTE | 2023-03-07 11:10 | P.PN ---
Subjective Patient is seen for follow-up for chronic kidney disease and acute kidney injury. She is currently being diuresed for volume overload. Off of pressors Currently off of BiPAP and oxygen via nasal cannula is decreased to 13 L today. Good urine output Serum creatinine at 1.7 today. Objective - Vital Signs Vital signs: Vital Signs Temp 97.9 F 03/07/23 08:00 Pulse 68 03/07/23 10:00 Resp 20 03/07/23 10:00 BP 98/62 03/07/23 09:00 Pulse Ox 90 L 03/07/23 10:00 FiO2 50 03/07/23 04:00 Intake & Output 03/06/23 03/07/23 03/07/23 18:59 06:59 18:59 Intake Total 710 750 90 Output Total 740 555 185 Balance -30 195 -95 Weight 81 kg Intake: IV 710 210 40 Cefepime 2 gm In Sodium 100 100 Chloride 0.9% 100 ml @ 25 mls/hr IVPB Q8HR [facility] Rx# :[id number] KVO 110 110 40 Vancomycin 1,500 mg In 500 Sodium Chloride 0.9% 500 ml 500 ml @ 167 mls/hr IVPB ONCE ONE Rx#: [id number] Intake, IV Titration 50 Amount Cefepime 1 gm In Sodium 50 Chloride 0.9% 50 ml @ 12. 5 mls/hr IVPB Q12HR [facility] Rx#:[id number] Oral 540 Output: Urine 740 555 185 Other: Voiding Method Indwelling Catheter Indwelling Catheter Indwelling Catheter # Bowel Movements 1 - Exam Patient is awake, comfortable, alert oriented 3 No acute distress Examination of the heart S1 and S2 Examination the lungs decreased breath sounds at the bases Abdomen is soft nontender Examination lower extremity shows trace edema [employer] exam grossly intact - Labs CBC & Chem 7: 03/07/23 06:00 03/07/23 06:00 Labs: Abnormal Lab Results - Last 24 Hours (Table) 03/07/23 03/07/23 03/07/23 Range/Units 06:00 06:00 06:00 WBC 16.7 H (3.8-10.6) k/uL RBC 2.91 L (3.80-5.40) m/uL Hgb 8.9 L (11.4-16.0) gm/dL Hct 28.3 L (34.0-46.0) % RDW 16.0 H (11.5-15.5) % Sodium 136 L (137-145) mmol/L BUN 55 H (7-17) mg/dL Creatinine 1.74 H 1.71 H (0.52-1.04) mg/dL Glucose 156 H (74-99) mg/dL Microbiology - Last 24 Hours (Table) 03/05/23 10:25 Blood Culture - Preliminary Blood Assessment and Plan Assessment: 1. Chronic kidney disease stage IV with baseline creatinine 1.5 - 2 secondary to cardiorenal syndrome and nephrosclerosis. Fluctuation in renal function based on volume status and diuresis. Atrophic kidneys noted on renal ultrasound done January 2023. 2. A. fib with RVR maintained on amiodarone and Lopressor. Status post cardioversion and ARCADIO. 3. Hypotension status post levo fed Also on midodrine. 4. Hypervolemic hyponatremia. Stable. 5. Hypokalemia from diuresis. Replaced. Better. 6. Acute on chronic systolic CHF with ejection fraction of 40% with moderate aortic insufficiency. 7. History of coronary artery disease with cardiac stenting. 8. Volume overload. Improving with diuresis. 9. Hypomagnesemia from diuresis. Replaced. Better. 10. Right lung opacification. Possibly mucous plug. Pulmonology following. Plan: Continue with oral Bumex Continue midodrine and hold if systolic blood pressure more than 1 10 mmHg Repeat labs in a.m. Monitor vancomycin levels closely.
[2023-03-07] MEDS: NOREPINEPHRINE 4 MG in SODIUM CHLORIDE 0.9% 250 ML IV SCH (12:19)
--- NOTE | 2023-03-07 13:26 | P.PN ---
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 She presented to the emergency department with complaints of generalized weakness, intermittent chest pain, shortness of breath, and a headache. Patient was scheduled for cardiac ablation on 03/05/[address] Stockton. Vital signs showed BP 133/82, HR 118, RR 22, T 98.8F, SpO2 of 99% on room air. EKG showed AFib with RVR at 125 bpm. Chest x-ray showed no acute process. CT head showing no acute process. WBC count 11.4. Coagulation profile showing PT of 13.4, INR 1.3, and D-dimer at 1.97 (chronically elevated). BMP Na 130, K 3.4, Cl 94, bicarb of 21, anion gap 15, BUN of 30, Cr 1.81, with baseline Cr 1.9. Troponin less than 0.012. ProBNP 3970 which is significantly improved from previous BNP of 11,800. COVID PCR, Flu, and RSV were negative. Patient was admitted under our services secondary to intermittent chest pain and atrial fibrillation with consultation to cardiology. Troponins trended, less than 0.012, 0.012, and less than 0.012. Urinalysis was obtained and was abnormal showing positive for protein, ketones, and leukocytosis with 9 RBCs and 18 WBCs. However, patient did have urinary symptoms. Patient became hypotensive on 02/27. Was transferred to medical ICU. Started on norepinephrine. Continue to remain in atrial fibrillation with RVR. Was also started on Lasix drip. Echocardiogram showed slightly reduced LVEF of 40% with global hypokinesis, moderate aortic insufficiency. She had ARCADIO and cardioversion on 03/02, now converted to sinus rhythm. Lasix drip transitioned to IV push 03/03. 03/04 Lasix IV transitioned to Bumex 1 mg PO QD. Antibiotics include Rocephin 2g IV QD for treatment of UTI. She remains on Levophed at 0.01 mcg/kg/min. 03/05 Currently on Airvo 50L FiO2 90%. CXR shows complete opacification of the right lung and pulmonary vascular congestion. Concerns for mucus plugging. One dose of Lasix 40 mg IV ordered. Antibiotics escalated to Vancomycin and Cefepime. Blood cultures, Lactic acid, Procal, and COVID test ordered. On Levophed at 0.02 mcg/kg/min. 03/06 Breathing improved after spending most of the day on BiPAP yesterday. Currently of HFNC 15L. Weaned off Levophed. Currently on Vanomycin and Cefepime. CXR considerably improved aeration of the R lung compared to yesterday. COVID 19 negative. 03/07 Patient was seen and examined. Requesting something for sleep. Currently on 13L HFNC. CBC WBC 16.7, Hg 8.9. CMP Na 136, BUN 55, Cr 1.71, glu 156. CXR shows slight worsening of pulmonary vascular congestion. Currently on Vanomycin and Cefepime. BCx negative at 24H. Diuretics include Bumex 1 mg PO QD. Negative 134 cc fluid balance over the past 24H. 78 kg - 81 kg since admission. General: nontoxic, no distress, appears at stated age, chronically ill-appearing Derm: warm, dry, pale Head: atraumatic, normocephalic, symmetric Eyes: EOMI, no lid lag, anicteric sclera Mouth: no lip lesion, mucus membranes moist Cardiovascular: S1S2 regular, systolic murmur Lungs: Bibasilar rales throughout L > R, no accessory muscle use, Airvo 50 L Abdominal: soft, nontender to palpation, no guarding, no appreciable orga nomegaly Ext: no gross muscle atrophy, no edema, no contractures Neuro: no focal neuro deficits Psych: Alert, oriented, appropriate affect Based on my assessment of this patient, this patient meets a high complexity level of care. Patient has an acute diagnosis of cardiogenic shock requiring pressors that poses a threat to life or bodily function. Found to be in A-Fib RVR s/p cardioversion on 03/02. Currently being treated for UTI and CHF/COPD exacerbation. Acute on chronic hypoxic respiratory failure Acute right sided lung opacification with sepsis: Concerns for mucus plug. BiPAP as tolerated. She would need to be intubated to do bronch per Pulmonology. Procal negative. COVID negative. Vancomycin dosed per pharmacy and Cefepime 1g IV BID (Day 3). Blood cultures negative so far. Paroxysmal atrial fibrillation with RVR: Status post cardioversion 03/02, now in sinus. Amiodarone 200 mg PO QD. Metoprolol 50 mg PO BID. Eliquis 2.5 mg PO BID for AC. Cardiogenic shock: Levophed discontinued 03/06. Maintain MAP > 65. Acute on chronic diastolic and systolic CHF, EF 40%: Bumex 1 mg PO QD. Metoprolol as above. Strict intake and outtake. Daily weights. Acute COPD exacerbation: SoluMedrol 40 mg IV Q8H. DuoNeb scheduled and PRN for SOB/wheezing. Symbicort INH BID. History of interstitial pulmonary fibrosis History of CAD status post stent: Lipitor 20 mg PO QHS. Would benefit from ASA. Acute on chronic renal failure: Resolving. GFR and Cr appears at baseline. Resolved: Hypokalemia, Hypomagnesemia CODE STATUS: FULL CODE DVT Prophylaxis: Eliquis GI Prophylaxis: Protonix Designated medical POA if patient is not able to make medical decisions for themselves: I have reviewed the following building consultant notes: Cardiology, Nephrology, Pulmonology note. I have reviewed the results of the following tests: CBC, BMP, BCx. I have ordered the following tests: Final blood cultures. CBC. BMP. I have discussed the care of this patient with the following independent historian: Discussed with RN. I have independently interpreted the following test below: CXR as above. I have discussed the management of this patient with the following physician: Objective - Vital Signs Vital signs: Vital Signs Temp 97.7 F 03/07/23 04:00 Pulse 68 03/07/23 07:00 Resp 21 03/07/23 07:00 BP 112/68 03/07/23 07:00 Pulse Ox 96 03/07/23 07:00 FiO2 50 03/07/23 04:00 Intake & Output 03/06/23 03/07/23 03/07/23 18:59 06:59 18:59 Intake Total 710 750 10 Output Total 740 555 60 Balance -30 195 -50 Weight 81 kg Intake: IV 710 210 10 Cefepime 2 gm In Sodium 100 100 Chloride 0.9% 100 ml @ 25 mls/hr IVPB Q8HR [facility] Rx# :[id number] KVO 110 110 10 Vancomycin 1,500 mg In 500 Sodium Chloride 0.9% 500 ml 500 ml @ 167 mls/hr IVPB ONCE ONE Rx#: [id number] Oral 540 Output: Urine 740 555 60 Other: Voiding Method Indwelling Catheter Indwelling Catheter # Bowel Movements 1 - Labs CBC & Chem 7: 03/07/23 06:00 03/07/23 06:00 Labs: Abnormal Lab Results - Last 24 Hours (Table) 03/07/23 03/07/23 03/07/23 Range/Units 06:00 06:00 06:00 WBC 16.7 H (3.8-10.6) k/uL RBC 2.91 L (3.80-5.40) m/uL Hgb 8.9 L (11.4-16.0) gm/dL Hct 28.3 L (34.0-46.0) % RDW 16.0 H (11.5-15.5) % Sodium 136 L (137-145) mmol/L BUN 55 H (7-17) mg/dL Creatinine 1.74 H 1.71 H (0.52-1.04) mg/dL Glucose 156 H (74-99) mg/dL Microbiology - Last 24 Hours (Table) 03/05/23 10:25 Blood Culture - Preliminary Blood
--- NOTE | 2023-03-07 20:16 | P.PN ---
Subjective Progress Note Date: 03/07/23 The patient is a pleasant 68-year-old female patient who is known to our service from before with CAD and prior angioplasty as well as hypertension and dyslipidemia and paroxysmal atrial fibrillation and chronic kidney disease. She presented to the hospital because she has not been feeding well. She has been tired and fatigued and lately she has been experiencing increasing shortness of breath with exertion and relieved the chest discomfort with exertion as well. She was seen recently by myself in the office as an outpatient for a follow-up myocardial perfusion imaging stress test came in to be abnormal showing high risk features and she is scheduled to undergo a heart catheterization as an out patient. During this admission she underwent a workup including EKG showing atrial fibrillation with nonspecific changes and troponin came in to be unremarkable. Her kidney function is abnormal and above her baseline. Beside that she underwent a UA and that came in to be abnormal showing possible UTI. The examination is remarkable for irregular rhythm with clear breathing sounds bilaterally and no edema was noted in the lower extremities. 03/03/23 Patient was seen and examined with the decision. Patient underwent ARCADIO cardioversion procedure yesterday and she has continued to be normal sinus rhythm. She continues to be on low-dose norepinephrine drip. Blood pressure 90/60, heart rate 60 to 70s bpm, sinus rhythm Hemoglobin 11, BUN 13, creatinine 1.4. Creatinine has improved from 1.8 yesterday. 03/04/23 Patient still continues to be significantly short of breath. On exam she has s ignificant wheezing and reduced air entry Lab shows hemoglobin 10.8, sodium 135, creatinine 1.8, BUN 36. Yesterday creatinine was 1.4. Day before yesterday creatinine was 1.8. ABG showed pH 7.3, CO2 55, O2 64 Blood pressure 110/65 mmHg, heart rate 74 beats a minute next line telemetry shows sinus rhythm On norepinephrine drip 0.04 mics Also on midodrine. 03/05/23 Patient is seen and examined at bedside. Patient appears slightly better as compared to yesterday. She was able to wear BiPAP for few hours in the day. She received 1 dose of IV Lasix as per nephrology. Her creatinine is 2.2 today. Yesterday it was 1.8 03/06/2023 Patient's creatinine has improved after holding the diuretics. I feel patient is euvolemic. 03/07/23 Patient is maintaining sinus rhythm. Patient's creatinine is 1.71. Yesterday was 1.6. BP 100/70 On exam Respiratory: Mild rhonchi, improved air entry as compared to before Cardio vascular: S1 and S2 audible, regular rhythm, no murmurs appreciated Extremities: No significant edema Neurological: No focal deficits Assessment Hypoxic respiratory failure due to pneumonia Acute COPD exacerbation Persistent atrial fibrillation status post cardioversion 03/02/2023, currently normal sinus rhythm Acute on chronic renal failure, resolving. Margin a low blood pressure/hypertension, on midodrine Coronary artery disease Heart failure with reduced EF 40% Echo showed LVEF 40-45% Plan Continue metoprolol 50 mg twice a day. Continue amiodarone 200mg daily. Continue Eliquis 2.5 mg daily. Low dose needs to be increased to full dose once anemia improves. Patient appears euvolemic at this time. Her reduced air entry in lung is most likely due to resolving pneumonia. Reduce diuretics to Lasix 20 mg by mouth daily. BiPAP support as tolerated Incentive spirometry PT and OT Objective - Vital Signs Vital signs: Vital Signs Temp 97.4 F L 03/07/23 16:00 Pulse 72 03/07/23 20:02 Resp 20 03/07/23 19:00 BP 98/63 03/07/23 19:00 Pulse Ox 93 L 03/07/23 19:00 FiO2 50 03/07/23 04:00 Intake & Output 03/07/23 03/07/23 03/08/23 06:59 18:59 06:59 Intake Total 750 160 Output Total 555 915 Balance 195 -755 Weight 81 kg Intake: IV 210 110 Cefepime 2 gm In Sodium 100 Chloride 0.9% 100 ml @ 25 mls/hr IVPB Q8HR [facility] Rx# :[id number] KVO 110 110 Intake, IV Titration 50 Amount Cefepime 1 gm In Sodium 50 Chloride 0.9% 50 ml @ 12. 5 mls/hr IVPB Q12HR [facility] Rx#:[id number] Oral 540 Output: Urine 555 915 Other: Voiding Method Indwelling Catheter Indwelling Catheter - Labs CBC & Chem 7: 03/07/23 06:00 03/07/23 06:00 Labs: Abnormal Lab Results - Last 24 Hours (Table) 03/07/23 03/07/23 03/07/23 Range/Units 06:00 06:00 06:00 WBC 16.7 H (3.8-10.6) k/uL RBC 2.91 L (3.80-5.40) m/uL Hgb 8.9 L (11.4-16.0) gm/dL Hct 28.3 L (34.0-46.0) % RDW 16.0 H (11.5-15.5) % Sodium 136 L (137-145) mmol/L BUN 55 H (7-17) mg/dL Creatinine 1.74 H 1.71 H (0.52-1.04) mg/dL Glucose 156 H (74-99) mg/dL Microbiology - Last 24 Hours (Table) 03/05/23 10:25 Blood Culture - Preliminary Blood
[2023-03-07] MEDS: ATORVASTATIN 20 MG TAB PO SCH (20:46)
[2023-03-07] MEDS: SERTRALINE 100 MG TAB PO SCH (20:46)
[2023-03-08 04:16] LABS: Anisocytosis Slight; HCT 27.3 % (34.0-46.0); HGB 8.7 gm/dL (11.4-16.0); Hypochromasia Moderate; MCH 30.4 pg (25.0-35.0); MCHC 31.7 g/dL (31.0-37.0); MCV 95.8 fL (80.0-100.0); Mean Platelet Volume 8.1; Platelet Count 256 k/uL (150-450); RBC 2.85 m/uL (3.80-5.40); WBC 16.7 k/uL (3.8-10.6)
[2023-03-08 04:45] LABS: African American GFR (CKD) 37 (>60 ml/min/1.73 sqM); Anion Gap 10 mmol/L; Blood Urea Nitrogen 65 mg/dL (7-17); Calcium 8.9 mg/dL (8.4-10.2); Carbon Dioxide 26 mmol/L (22-30); Chloride 100 mmol/L (98-107); Glucose 161 mg/dL (74-99); Non-African American GFR(CKD) 32 (>60 ml/min/1.73 sqM); Potassium 4.2 mmol/L (3.5-5.1); Sodium 136 mmol/L (137-145)
[2023-03-08] MEDS: methylPREDNISolone SOD SUCCI 125 MG/2 ML VIAL IV SCH ×3 (06:02→16:32)
[2023-03-08] MEDS: LEVOTHYROXINE 75 MCG TAB PO SCH (06:02)
--- NOTE | 2023-03-08 07:37 | XR ---
EXAMINATION TYPE: XR chest 1V portable DATE OF EXAM: 03/08/2023 4:31 AM CLINICAL INDICATION:Female, 67 years old with history of CHF; [facility] COMPARISON: Chest radiographs from 03/06/2021. TECHNIQUE: XR chest 1V portable Frontal view of the chest. FINDINGS: Lungs/Pleura: No evidence of focal consolidation or pneumothorax. Blunting of the costophrenic angles is present. Pulmonary vascularity: Mildly improved, Pulmonary vascular congestion. Heart/mediastinum: Cardiomediastinal silhouette is enlarged and stable. Musculoskeletal: No acute osseous pathology. Other findings: None IMPRESSION: Mildly improved, Cardiomegaly, pulmonary vascular congestion and bilateral pleural effusions. Correla te with BNP for congestive heart failure.
[2023-03-08] MEDS: FORMOTEROL FUMARATE 20 MCG/2 ML NEBU INHALATION SCH ×2 (07:49→19:43)
[2023-03-08] MEDS: BUDESONIDE 1 MG/2 ML NEBU INHALATION SCH ×2 (07:49→19:43)
[2023-03-08] MEDS: IPRATROPIUM-ALBUTEROL 3 ML NEB INHALATION SCH ×3 (07:49→19:43)
--- NOTE | 2023-03-08 07:49 | P.PN ---
Subjective Progress Note Date: 03/08/23 PROGRESS NOTE The patient is 67-year-old female with known history of CAD, paroxysmal atrial fibrillation status post cardioversion, severe COPD who presented with worsening dyspnea. She continues to be on high flow oxygen, in sinus mechanism, feels better. She denies any chest discomfort, dizziness or palpitations. She had evidence of moderate cardiomyopathy. Hemodynamically she is stable, her urinary output has been good. There is no evidence of ventricular tachycardia. Medications: Amiodarone 200 mg daily, Lasix 20 mg daily, levothyroxine, metoprolol 50 twice a day, midodrine 10 mg 4 times a day, Eliquis 2.5 mg twice a day PHYSICAL EXAMINATION: Blood pressure 117/70 heart rate 60 LUNGS: Scattered rhonchi HEART: Regular rate and rhythm, S1, S2. No S3. Systolic ejection murmur ABDOMEN: Soft, nontender, no organomegaly EXTREMETIES: No edema LAB: Creatinine 1.6, BUN 65, hemoglobin 8.7 IMPRESSION: 1. Respiratory failure with CHF and possible pneumonia and exacerbation of COPD 2. History of CAD 3. Atrial fibrillation remains in sinus mechanism 4. Chronic kidney disease PLAN: 1. Continue present therapy 2. Increase physical activity 3. Follow her renal functions 4. Depending on her progress further recommendations will be made Objective - Vital Signs Vital signs: Vital Signs Temp 98.1 F 03/08/23 04:00 Pulse 64 03/08/23 07:00 Resp 17 03/08/23 07:00 BP 117/72 03/08/23 07:00 Pulse Ox 98 03/08/23 07:00 FiO2 50 03/08/23 04:00 Intake & Output 03/07/23 03/08/23 03/08/23 18:59 06:59 18:59 Intake Total 160 180 Output Total 915 555 Balance -755 -375 Weight 83.2 kg Intake: IV 110 180 Cefepime 2 gm In Sodium 100 Chloride 0.9% 100 ml @ 25 mls/hr IVPB Q8HR [facility] Rx# :[id number] KVO 110 80 Intake, IV Titration 50 Amount Cefepime 1 gm In Sodium 50 Chloride 0.9% 50 ml @ 12. 5 mls/hr IVPB Q12HR [facility] Rx#:[id number] Output: Urine 915 555 Other: Voiding Method Indwelling Catheter Indwelling Catheter - Labs CBC & Chem 7: 03/08/23 04:00 03/08/23 04:00 Labs: Abnormal Lab Results - Last 24 Hours (Table) 03/08/23 03/08/23 Range/Units 04:00 04:00 WBC 16.7 H (3.8-10.6) k/uL RBC 2.85 L (3.80-5.40) m/uL Hgb 8.7 L (11.4-16.0) gm/dL Hct 27.3 L (34.0-46.0) % RDW 16.0 H (11.5-15.5) % Sodium 136 L (137-145) mmol/L BUN 65 H (7-17) mg/dL Creatinine 1.64 H (0.52-1.04) mg/dL Glucose 161 H (74-99) mg/dL Microbiology - Last 24 Hours (Table) 03/05/23 10:25 Blood Culture - Preliminary Blood
[2023-03-08] MEDS: PANTOPRAZOLE 40 MG/10 ML VIAL IVP SCH (08:04)
[2023-03-08] MEDS: CEFEPIME 1 GM in SODIUM CHLORIDE 0.9% 50 ML IVPB SCH ×2 (08:04→20:29)
[2023-03-08] MEDS: APIXABAN 2.5 MG TABLET PO SCH ×2 (08:05→20:26)
[2023-03-08] MEDS: GABAPENTIN 100 MG CAP PO SCH ×3 (08:05→20:29)
[2023-03-08] MEDS: AMIODARONE 200 MG TAB PO SCH (08:05)
[2023-03-08] MEDS: MIDODRINE 5 MG TAB PO SCH ×4 (08:05→20:28)
[2023-03-08] MEDS: METOPROLOL TARTRATE 50 MG TAB PO SCH ×2 (08:05→20:27)
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
[2023-03-08] MEDS ORDERED: FUROSEMIDE 20 MG TAB PO SCH (09:00)
[2023-03-08] MEDS ORDERED: VANCOMYCIN 1,500 MG in SODIUM CHLORIDE 0.9% 500 ML 500 ML IVPB ONE (09:00)
[2023-03-08] MEDS: DAPAGLIFLOZIN PROPANEDIOL 10 MG TABLET PO SCH (10:18)
[2023-03-08] MEDS: FUROSEMIDE 10 MG/ML 4 ML VIAL IV SCH (10:19)
[2023-03-08] MEDS: LIDOCAINE 4% PATCH TOPICAL SCH (10:19)
--- NOTE | 2023-03-08 11:04 | P.PN ---
Subjective Patient is seen for follow-up for chronic kidney disease and acute kidney injury. She is currently being diuresed for volume overload. Off of pressors Currently off of BiPAP and oxygen via nasal cannula is decreased to 10 L today. Good urine output Serum creatinine staying at 1.6-1.7 mg/dL. Oral bu,ex switched to IV lasix today. CXR shows peersistent CHF. Objective - Vital Signs Vital signs: Vital Signs Temp 97.7 F 03/08/23 08:00 Pulse 73 03/08/23 10:00 Resp 16 03/08/23 10:00 BP 97/53 03/08/23 10:00 Pulse Ox 95 03/08/23 10:00 FiO2 50 03/08/23 04:00 Intake & Output 03/07/23 03/08/23 03/08/23 18:59 06:59 18:59 Intake Total 160 180 30 Output Total 915 555 110 Balance -755 -375 -80 Weight 83.2 kg Intake: IV 110 180 30 Cefepime 2 gm In Sodium 100 Chloride 0.9% 100 ml @ 25 mls/hr IVPB Q8HR [facility] Rx# :[id number] KVO 110 80 30 Intake, IV Titration 50 Amount Cefepime 1 gm In Sodium 50 Chloride 0.9% 50 ml @ 12. 5 mls/hr IVPB Q12HR [facility] Rx#:[id number] Output: Urine 915 555 110 Other: Voiding Method Indwelling Catheter Indwelling Catheter Indwelling Catheter # Bowel Movements 1 - Exam Patient is awake, comfortable, alert oriented 3 No acute distress Examination of the heart S1 and S2 Examination the lungs decreased breath sounds at the bases Abdomen is soft nontender Examination lower extremity shows 1+ edema PHYSICAL MEDICINE PHYSICIAN exam grossly intact - Labs CBC & Chem 7: 03/08/23 04:00 03/08/23 04:00 Labs: Abnormal Lab Results - Last 24 Hours (Table) 03/08/23 03/08/23 Range/Units 04:00 04:00 WBC 16.7 H (3.8-10.6) k/uL RBC 2.85 L (3.80-5.40) m/uL Hgb 8.7 L (11.4-16.0) gm/dL Hct 27.3 L (34.0-46.0) % RDW 16.0 H (11.5-15.5) % Sodium 136 L (137-145) mmol/L BUN 65 H (7-17) mg/dL Creatinine 1.64 H (0.52-1.04) mg/dL Glucose 161 H (74-99) mg/dL Microbiology - Last 24 Hours (Table) 03/05/23 10:25 Blood Culture - Preliminary Blood Assessment and Plan Assessment: 1. Chronic kidney disease stage IV with baseline creatinine 1.5 - 2 secondary to cardiorenal syndrome and nephrosclerosis. Fluctuation in renal function based on volume status and diuresis. Atrophic kidneys noted on renal ultrasound done January 2023. 2. A. fib with RVR maintained on amiodarone and Lopressor. Status post cardioversion and ARCADIO. 3. Hypotension status post levo fed Also on midodrine. 4. Hypervolemic hyponatremia. Stable. 5. Hypokalemia from diuresis. Replaced. Better. 6. Acute on chronic systolic CHF with ejection fraction of 40% with moderate aortic insufficiency. 7. History of coronary artery disease with cardiac stenting. 8. Volume overload. Improving with diuresis. 9. Hypomagnesemia from diuresis. Replaced. Better. 10. Right lung opacification. Possibly mucous plug. Pulmonology following. Plan: Continue to diurese patient. Agree with switching to IV diuretics. . Renal function remains stable Continue midodrine and hold if systolic blood pressure more than 1 10 mmHg Repeat labs in a.m. Monitor vancomycin levels closely.
[2023-03-08] MEDS: NOREPINEPHRINE 4 MG in SODIUM CHLORIDE 0.9% 250 ML IV SCH (11:38)
--- NOTE | 2023-03-08 14:15 | P.PN ---
Subjective Progress Note Date: 03/08/23 No new complaints. Pt is now on 8L HFNC. Gen: awake, alert HEENT: normocephalic, atraumatic, good hearing acuity, moist mucous membranes Resp: good air exchange, breathing comfortably with no accessory muscle use CVS: good distal perfusion x 4, GI: soft, NTTP, ND : no SPT, no CVAT, benoit catheter is present MSK: no pitting edema, no clubbing Neuro: non-focal, moving all extremities Psych: cooperative, euthymic mood Hospital course: 67-year-old female with PMH of chronic hypoxic respiratory failure secondary to COPD on home oxygen at 2 L at all times, CAD with stent, paroxysmal AFib on anticoagulation with Eliquis, HFpEF, hypertension, hyperlipidemia, CKD stage IV, hypothyroidism, and 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 She presented to the emergency department with complaints of generalized weakness, intermittent chest pain, shortness of breath, and a head ache. Patient was scheduled for cardiac ablation on 03/05/[address] Stockton. Vital signs showed BP 133/82, HR 118, RR 22, T 98.8F, SpO2 of 99% on room air. EKG showed AFib with RVR at 125 bpm. Chest x-ray showed no acute process. CT head showing no acute process. WBC count 11.4. Coagulation profile showing PT of 13.4, INR 1.3, and D-dimer at 1.97 (chronically elevated). BMP Na 130, K 3.4, Cl 94, bicarb of 21, anion gap 15, BUN of 30, Cr 1.81, with baseline Cr 1.9. Troponin less than 0.012. ProBNP 3970 which is significantly improved from previous BNP of 11,800. COVID PCR, Flu, and RSV were negative. Patient was admitted under our services secondary to intermittent chest pain and atrial fibrillation with consultation to cardiology. Troponins trended, less than 0.012, 0.012, and less than 0.012. Urinalysis was obtained and was abnormal showing positive for protein, ketones, and leukocytosis with 9 RBCs and 18 WBCs. However, patient did have urinary symptoms. Patient became hypotensive on 02/27. Was transferred to medical ICU. Started on norepinephrine. Continue to remain in atrial fibrillation with RVR. Was also started on Lasix drip. Echocardiogram showed slightly reduced LVEF of 40% with global hypokinesis, moderate aortic insufficiency. She had ARCADIO and cardioversion on 03/02, now converted to sinus rhythm. Lasix drip transitioned to IV push 03/03. 03/04 Lasix IV transitioned to Bumex 1 mg PO QD. Antibiotics include Rocephin 2g IV QD for treatment of UTI. She remains on Levophed at 0.01 mcg/kg/min. 03/05 Currently on Airvo 50L FiO2 90%. CXR shows complete opacification of the right lung and pulmonary vascular congestion. Concerns for mucus plugging. One dose of Lasix 40 mg IV ordered. Antibiotics escalated to Vancomycin and Cefepime. Blood cultures, Lactic acid, Procal, and COVID test ordered. On Levophed at 0.02 mcg/kg/min. 03/06 Breathing improved after spending most of the day on BiPAP yesterday. Currently of HFNC 15L. Weaned off Levophed. Currently on Vanomycin and Cefepime. CXR considerably improved aeration of the R lung compared to yesterday. COVID 19 negative. 03/07 Patient was seen and examined. Requesting something for sleep. Currently on 13L HFNC. CBC WBC 16.7, Hg 8.9. CMP Na 136, BUN 55, Cr 1.71, glu 156. CXR shows slight worsening of pulmonary vascular congestion. Currently on Vanomycin and Cefepime. BCx negative at 24H. Diuretics include Bumex 1 mg PO QD. Negative 134 cc fluid balance over the past 24H. 78 kg - 81 kg since admission. Assessment/plan: Cardiogenic shock Acute on chronic diastolic and systolic CHF, EF 40% Paroxysmal atrial fibrillation with RVR - levophed as required, discontinued on 03/06 - lasix 40mg IV daily - I/Os, daily weights - s/p DCCV 03/02 - Amiodarone 200mg daily, metoprolol 50mg BID - Eliquis 2.5mg BID Acute on chronic hypoxic respiratory failure Acute right sided lung opacification with sepsis Acute COPD exacerbation: SoluMedrol 40 mg IV Q8H. DuoNeb scheduled and PRN for SOB/wheezing. Symbicort INH BID. History of interstitial pulmonary fibrosis -BIPAP as tolerated -solumedrol 60mg IV q6h, consider tapering -budesonide/formoterol BID -duoneb TID -Cefepime, day 4; vancomycin discontinued; random vancomycin on 03/08 is 16.4 -COVID negative, reviewed 03/08 -CXR on 03/08 personally interpreted - Mucous plugging improved, now showing signs of vascular congestion superimposed on IPF changes, appears close to baseline CXR Acute on chronic renal failure -Resolving. GFR and Cr appears at baseline again, reviewed 03/08 History of CAD status post stent -Lipitor 20 mg PO QHS. Would benefit from ASA. Resolved: Hypokalemia, Hypomagnesemia CODE STATUS: FULL CODE DVT Prophylaxis: Eliquis GI Prophylaxis: Protonix Designated medical POA if patient is not able to make medical decisions for themselves: Objective - Vital Signs Vital signs: Vital Signs Temp 97.7 F 03/08/23 12:00 Pulse 65 03/08/23 12:08 Resp 15 03/08/23 12:00 BP 112/69 03/08/23 12:00 Pulse Ox 97 03/08/23 12:00 FiO2 50 03/08/23 04:00 Intake & Output 03/07/23 03/08/23 03/08/23 18:59 06:59 18:59 Intake Total 160 180 50 Output Total 915 555 710 Balance -700 -037 -695 Weight 83.2 kg Intake: IV 110 180 50 Cefepime 2 gm In Sodium 100 Chloride 0.9% 100 ml @ 25 mls/hr IVPB Q8HR [facility] Rx# :[id number] KVO 110 80 50 Intake, IV Titration 50 Amount Cefepime 1 gm In Sodium 50 Chloride 0.9% 50 ml @ 12. 5 mls/hr IVPB Q12HR [facility] Rx#:[id number] Output: Urine 915 555 710 Other: Voiding Method Indwelling Catheter Indwelling Catheter Indwelling Catheter # Bowel Movements 1 - Labs CBC & Chem 7: 03/08/23 04:00 03/08/23 04:00 Labs: Abnormal Lab Results - Last 24 Hours (Table) 03/08/23 03/08/23 Range/Units 04:00 04:00 WBC 16.7 H (3.8-10.6) k/uL RBC 2.85 L (3.80-5.40) m/uL Hgb 8.7 L (11.4-16.0) gm/dL Hct 27.3 L (34.0-46.0) % RDW 16.0 H (11.5-15.5) % Sodium 136 L (137-145) mmol/L BUN 65 H (7-17) mg/dL Creatinine 1.64 H (0.52-1.04) mg/dL Glucose 161 H (74-99) mg/dL Microbiology - Last 24 Hours (Table) 03/05/23 10:25 Blood Culture - Preliminary Blood
[2023-03-08] MEDS: HYDROcodone/APAP 5-325MG 1 EACH TAB PO PRN ×2 (16:40→22:15)
[2023-03-08] MEDS: ATORVASTATIN 20 MG TAB PO SCH (20:27)
[2023-03-08] MEDS: SERTRALINE 100 MG TAB PO SCH (20:29)
[2023-03-08] MEDS: CALCIUM CARBONATE 500 MG CHEWABLE PO PRN (20:55)
[2023-03-09] MEDS: methylPREDNISolone SOD SUCCI 125 MG/2 ML VIAL IV SCH ×5 (01:28→23:41)
[2023-03-09] MEDS: LEVOTHYROXINE 75 MCG TAB PO SCH (05:47)
[2023-03-09 05:56] LABS: Anisocytosis Slight; Basophils # (A) 0.1 k/uL (0-0.2); Basophils % (A) 0 %; Eosinophils # (A) 0.1 k/uL (0-0.7); Eosinophils % (A) 0 %; HCT 27.7 % (34.0-46.0); HGB 8.8 gm/dL (11.4-16.0); Hypochromasia Slight; Lymphocytes # (A) 0.9 k/uL (1.0-4.8); Lymphocytes % (A) 4 %; MCH 30.2 pg (25.0-35.0); MCV 94.4 fL (80.0-100.0); Mean Platelet Volume 7.9; Monocytes # (A) 0.5 k/uL (0-1.0); Monocytes % (A) 2 %; Neutrophils # (A) 18.3 k/uL (1.3-7.7); Neutrophils % (A) 92 %; Platelet Count 281 k/uL (150-450); RBC 2.93 m/uL (3.80-5.40); RDW 16.3 % (11.5-15.5); WBC 19.9 k/uL (3.8-10.6)
[2023-03-09 06:08] LABS: African American GFR (CKD) 36 (>60 ml/min/1.73 sqM); Anion Gap 9 mmol/L; Blood Urea Nitrogen 70 mg/dL (7-17); Calcium 8.9 mg/dL (8.4-10.2); Carbon Dioxide 28 mmol/L (22-30); Chloride 101 mmol/L (98-107); Glucose 138 mg/dL (74-99); Magnesium 2.5 mg/dL (1.6-2.3); Non-African American GFR(CKD) 31 (>60 ml/min/1.73 sqM); Potassium 3.8 mmol/L (3.5-5.1); Sodium 138 mmol/L (137-145)
--- NOTE | 2023-03-09 07:41 | P.PN ---
Subjective Progress Note Date: 03/09/23 PROGRESS NOTE The patient is 67-year-old female with known history of CAD, paroxysmal atrial fibrillation status post cardioversion, severe COPD who presented with worsening dyspnea. She continues to be on high flow oxygen, in sinus mechanism, feels better. She denies any chest discomfort, dizziness or palpitations. She had evidence of moderate cardiomyopathy. Hemodynamically she is stable, her urinary output has been good. There is no evidence of ventricular tachycardia. March 09: The patient feels better overall, she continues to be in sinus mechanism. Hemodynamically she is stable. She denies any chest discomfort or dizziness. She denies any nausea or vomiting. She has a prior history of COPD and her chest x-ray continues to show bilateral infiltrate. She had a known history of moderate cardiomyopathy. Medications: Amiodarone 200 mg daily, Lasix 40 mg intravenous daily, levothyroxine, metoprolol 50 twice a day, midodrine 10 mg 4 times a day, Eliquis 2.5 mg twice a day, Farxiga 10 mg daily, Neurontin 100 mg 3 times a day, Lipitor 20 mg daily, metoprolol 50 mg twice a day, Zoloft, vancomycin PHYSICAL EXAMINATION: Blood pressure 119/50 heart rate 61 LUNGS: Scattered rhonchi HEART: Regular rate and rhythm, S1, S2. No S3. Systolic ejection murmur ABDOMEN: Soft, nontender, no organomegaly EXTREMETIES: No edema LAB: Creatinine 1.69, BUN 70, hemoglobin 8.8 IMPRESSION: 1. Respiratory failure with CHF and possible pneumonia and exacerbation of COPD 2. History of CAD with prior stenting 3. Atrial fibrillation remains in sinus mechanism, post cardioversion 4. Chronic kidney disease PLAN: 1. Continue present therapy 2. Increase physical activity 3. Follow her renal functions 4. Depending on her progress further recommendations will be made Objective - Vital Signs Vital signs: Vital Signs Temp 98.3 F 03/09/23 04:00 Pulse 73 03/09/23 06:00 Resp 19 03/09/23 06:00 BP 116/63 03/09/23 06:00 Pulse Ox 93 L 03/09/23 06:00 FiO2 50 03/09/23 00:00 Intake & Output 03/08/23 03/09/23 03/09/23 18:59 06:59 18:59 Intake Total 120 220 Output Total 1885 705 Balance -1765 -485 Weight 81.2 kg Intake: IV 120 170 Cefepime 2 gm In Sodium 100 Chloride 0.9% 100 ml @ 25 mls/hr IVPB Q8HR [facility] Rx# :[id number] KVO 120 70 Oral 50 Output: Urine 6081 041 Other: Voiding Method Indwelling Catheter Indwelling Catheter # Bowel Movements 1 - Labs CBC & Chem 7: 03/09/23 05:43 03/09/23 05:43 Labs: Abnormal Lab Results - Last 24 Hours (Table) 03/09/23 03/09/23 Range/Units 05:43 05:43 WBC 19.9 H (3.8-10.6) k/uL RBC 2.93 L (3.80-5.40) m/uL Hgb 8.8 L (11.4-16.0) gm/dL Hct 27.7 L (34.0-46.0) % RDW 16.3 H (11.5-15.5) % Neutrophils # 18.3 H (1.3-7.7) k/uL Lymphocytes # 0.9 L (1.0-4.8) k/uL BUN 70 H (7-17) mg/dL Creatinine 1.69 H (0.52-1.04) mg/dL Glucose 138 H (74-99) mg/dL Magnesium 2.5 H (1.6-2.3) mg/dL Microbiology - Last 24 Hours (Table) 03/05/23 10:25 Blood Culture - Preliminary Blood
[2023-03-09] MEDS: FORMOTEROL FUMARATE 20 MCG/2 ML NEBU INHALATION SCH ×2 (08:01→20:14)
[2023-03-09] MEDS: BUDESONIDE 1 MG/2 ML NEBU INHALATION SCH ×2 (08:02→20:14)
[2023-03-09] MEDS: IPRATROPIUM-ALBUTEROL 3 ML NEB INHALATION SCH ×3 (08:02→20:14)
--- NOTE | 2023-03-09 08:18 | XR ---
EXAMINATION TYPE: XR chest 1V portable DATE OF EXAM: 03/09/2023 Comparison: 03/08/2023 Clinical History: 67-year-old female respiratory failure Findings: The heart is enlarged. Underlying diffuse interstitial and patchy opacities. No sizable pleural effus ion on the frontal view. Impression: Similar cardiomegaly and diffuse bilateral interstitial and patchy opacities.
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
[2023-03-09] MEDS: FUROSEMIDE 10 MG/ML 4 ML VIAL IV SCH ×2 (08:29→20:44)
[2023-03-09] MEDS: APIXABAN 2.5 MG TABLET PO SCH ×2 (08:29→20:44)
[2023-03-09] MEDS: PANTOPRAZOLE 40 MG/10 ML VIAL IVP SCH (08:29)
[2023-03-09] MEDS: METOPROLOL TARTRATE 50 MG TAB PO SCH ×3 (08:29→21:04)
[2023-03-09] MEDS: GABAPENTIN 100 MG CAP PO SCH ×3 (08:29→20:44)
[2023-03-09] MEDS: AMIODARONE 200 MG TAB PO SCH (08:29)
[2023-03-09] MEDS: DAPAGLIFLOZIN PROPANEDIOL 10 MG TABLET PO SCH (08:29)
[2023-03-09] MEDS: CEFEPIME 1 GM in SODIUM CHLORIDE 0.9% 50 ML IVPB SCH ×2 (08:39→20:18)
[2023-03-09] MEDS: MIDODRINE 5 MG TAB PO SCH ×6 (08:41→20:44)
--- NOTE | 2023-03-09 10:58 | P.PN ---
Subjective Patient is seen for follow-up for chronic kidney disease and acute kidney injury. She is currently being diuresed for volume overload. Off of pressors Currently off of BiPAP and oxygen via nasal cannula is decreased to 6 L today but increased back to 10 L after ambulation. Good urine output, 2.59 L for 24 hours Serum creatinine staying at 1.6-1.7 mg/dL. Maintained on Lasix 40 mg IV daily. Objective - Vital Signs Vital signs: Vital Signs Temp 96.5 F L 03/09/23 08:00 Pulse 64 03/09/23 10:00 Resp 25 H 03/09/23 10:00 BP 95/54 03/09/23 10:00 Pulse Ox 72 L 03/09/23 10:00 FiO2 50 03/09/23 08:00 Intake & Output 03/08/23 03/09/23 03/09/23 18:59 06:59 18:59 Intake Total 120 220 340 Output Total 1885 705 410 Balance -1765 -485 -70 Weight 81.2 kg Intake: IV 120 170 40 Cefepime 2 gm In Sodium 100 Chloride 0.9% 100 ml @ 25 mls/hr IVPB Q8HR [facility] Rx# :[id number] KVO 120 70 40 Intake, IV Titration 50 Amount Cefepime 1 gm In Sodium 50 Chloride 0.9% 50 ml @ 12. 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 Chronic kidney disease stage IV with baseline creatinine 1.5 - 2 secondary to cardiorenal syndrome and nephrosclerosis. Fluctuation in renal function based on volume status and diuresis. Atrophic kidneys noted on renal ultrasound done January 2023. 2. A. fib with RVR maintained on amiodarone and Lopressor. Status post cardioversion and ARCADIO. 3. Hypotension status post levo fed Also on midodrine. 4. Hypervolemic hyponatremia. Stable. 5. Hypokalemia from diuresis. Replaced. Better. 6. Acute on chronic systolic CHF with ejection fraction of 40% with moderate aortic insufficiency. 7. History of coronary artery disease with cardiac stenting. 8. Volume overload. Improving with diuresis. 9. Hypomagnesemia from diuresis. Replaced. Better. 10. Right lung opacification. Possibly mucous plug. Pulmonology following. Plan: Continue to diurese patient. Increase Lasix. Renal function remains stable Continue midodrine and hold if systolic blood pressure more than 1 10 mmHg Repeat labs in a.m. Monitor vancomycin levels closely. Most recent level was 16.4 on 03/08/2023
[2023-03-09] MEDS: LIDOCAINE 4% PATCH TOPICAL SCH (11:52)
--- NOTE | 2023-03-09 12:13 | P.PN ---
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 She presented to the emergency department with complaints of generalized weakness, intermittent chest pain, shortness of breath, and a headache. Patient was scheduled for cardiac ablation on 03/05/[address] Stockton. Vital signs showed BP 133/82, HR 118, RR 22, T 98.8F, SpO2 of 99% on room air. EKG showed AFib with RVR at 125 bpm. Chest x-ray showed no acute process. CT head showing no acute process. WBC count 11.4. Coagulation profile showing PT of 13.4, INR 1.3, and D-dimer at 1.97 (chronically elevated). BMP Na 130, K 3.4, Cl 94, bicarb of 21, anion gap 15, BUN of 30, Cr 1.81, with baseline Cr 1.9. Troponin less than 0.012. ProBNP 3970 which is significantly improved from previous BNP of 11,800. COVID PCR, Flu, and RSV were negative. Patient was admitted under our services secondary to intermittent chest pain and atrial fibrillation with consultation to cardiology. Troponins trended, less than 0.012, 0.012, and less than 0.012. Urinalysis was obtained and was abnormal showing positive for protein, ketones, and leukocytosis with 9 RBCs and 18 WBCs. However, patient did have urinary symptoms. Patient became hypotensive on 02/27. Was transferred to medical ICU. Started on norepinephrine. Continue to remain in atrial fibrillation with RVR. Was also started on Lasix drip. Echocardiogram showed slightly reduced LVEF of 40% with global hypokinesis, moderate aortic insufficiency. She had ARCADIO and cardioversion on 03/02, now converted to sinus rhythm. Lasix drip transitioned to IV push 03/03, then later transitioned to oral Bumex. Respiratory function worsen. CXR shows complete opacification of the right lung and pulmonary vascular congestion. Concerns for mucus plugging. Antibiotics escalated to Vancomycin and Cefepime. Remained on vasopressors. Patient was on BiPAP, transitioned to high flow nasal cannula, weaned off of norepinephrine. Remains on IV antibiotics. Remains on oral diuretics. Subjective: Patient is seen and examined at bedside. No acute events overnight. Breathing better. Pertinent positives and negatives as discussed above, a complete review of systems was performed and all other systems are negative. Vitals Signs Reviewed. General: nontoxic, no distress, appears at stated age Derm: warm, dry Head: atraumatic, normocephalic, symmetric Eyes: EOMI, no lid lag, anicteric sclera Mouth: no lip lesion, mucus membranes moist Cardiovascular: S1S2 reg, no murmur Lungs: Bilateral rales , no accessory muscle use Abdominal: soft, nontender to palpation, no guarding, no appreciable organomegaly Ext: no gross muscle atrophy, no edema, no contractures Neuro: CN II-XI grossly intact, no focal neuro deficits Psych: Alert, oriented, appropriate affect Data Reviewed Today: Pertinent Labs: WBC 19.0, hemoglobin 8.8, sodium 138, potassium 3.8, creatinine 1.69, magnesium 2.5 Imaging: Chest x-ray independently interpreted Bilateral patchy infiltrates, similar to yesterday Assessment and Plan: Patient is critically ill, medical ICU, prognosis guarded. Acute on chronic hypoxic respiratory failure Acute right sided lung opacification with sepsis Bacterial pneumonia Acute COPD exacerbation History of interstitial pulmonary fibrosis -solumedrol 60mg IV q6h, consider tapering -budesonide/formoterol BID -duoneb TID -Cefepime 1 g every 12 hours Cardiogenic shock, resolved Acute on chronic diastolic and systolic CHF, EF 40% Paroxysmal atrial fibrillation with RVR, s/p cardioversion, now in sinus - levophed as required, discontinued on 03/06 - lasix 40mg IV daily - I/Os, daily weights - Amiodarone 200mg daily, metoprolol 50mg BID - Eliquis 2.5mg BID -Continue midodrine Acute on chronic renal failure -Resolving. GFR and Cr appears at baseline again History of CAD status post stent -Lipitor 20 mg PO QHS. Would benefit from ASA. Resolved: Hypokalemia, Hypomagnesemia Chronic: Hypothyroidism DVT ppx: Eliquis Code status: Full code Anticipated discharge place: Pending clinical course Anticipated discharge time: Pending clinical course Objective - Vital Signs Vital signs: Vital Signs Temp 98 F 03/09/23 12:00 Pulse 63 03/09/23 12:00 Resp 26 H 03/09/23 12:00 BP 98/56 03/09/23 12:00 Pulse Ox 95 03/09/23 12:00 FiO2 50 03/09/23 00:00 Intake & Output 03/08/23 03/09/23 03/09/23 18:59 06:59 18:59 Intake Total 120 220 360 Output Total 1885 705 710 Balance -2553 -756 -350 Weight 81.2 kg Intake: IV 120 170 60 Cefepime 2 gm In Sodium 100 Chloride 0.9% 100 ml @ 25 mls/hr IVPB Q8HR [facility] Rx# :[id number] KVO 120 70 60 Intake, IV Titration 50 Amount Cefepime 1 gm In Sodium 50 Chloride 0.9% 50 ml @ 12. 5 mls/hr IVPB Q12HR [facility] Rx#:[id number] Oral 50 250 Output: Urine 2795 705 710 Stool 0 Other: Voiding Method Indwelling Catheter Indwelling Catheter Indwelling Catheter # Bowel Movements 1 - Labs CBC & Chem 7: 03/09/23 05:43 03/09/23 05:43 Labs: Abnormal Lab Results - Last 24 Hours (Table) 03/09/23 03/09/23 Range/Units 05:43 05:43 WBC 19.9 H (3.8-10.6) k/uL RBC 2.93 L (3.80-5.40) m/uL Hgb 8.8 L (11.4-16.0) gm/dL Hct 27.7 L (34.0-46.0) % RDW 16.3 H (11.5-15.5) % Neutrophils # 18.3 H (1.3-7.7) k/uL Lymphocytes # 0.9 L (1.0-4.8) k/uL BUN 70 H (7-17) mg/dL Creatinine 1.69 H (0.52-1.04) mg/dL Glucose 138 H (74-99) mg/dL Magnesium 2.5 H (1.6-2.3) mg/dL Microbiology - Last 24 Hours (Table) 03/05/23 10:25 Blood Culture - Preliminary Blood
[2023-03-09] MEDS: HYDROcodone/APAP 5-325MG 1 EACH TAB PO PRN (14:05)
[2023-03-09] MEDS: NOREPINEPHRINE 4 MG in SODIUM CHLORIDE 0.9% 250 ML IV SCH (15:04)
[2023-03-09] MEDS ORDERED: HYDROmorphone 0.5 MG/0.5 ML SYRINGE IVP STA (15:31)
[2023-03-09] MEDS: SERTRALINE 100 MG TAB PO SCH (20:44)
[2023-03-09] MEDS: ATORVASTATIN 20 MG TAB PO SCH (20:44)
[2023-03-10 04:54] LABS: African American GFR (CKD) 35 (>60 ml/min/1.73 sqM); Anion Gap 11 mmol/L; Blood Urea Nitrogen 81 mg/dL (7-17); Calcium 8.6 mg/dL (8.4-10.2); Carbon Dioxide 29 mmol/L (22-30); Chloride 97 mmol/L (98-107); Glucose 162 mg/dL (74-99); Non-African American GFR(CKD) 30 (>60 ml/min/1.73 sqM); Sodium 137 mmol/L (137-145)
[2023-03-10 04:57] LABS: Anisocytosis Slight; Basophils # (A) 0.1 k/uL (0-0.2); Basophils % (A) 0 %; Eosinophils % (A) 0 %; HCT 28.1 % (34.0-46.0); Hypochromasia Slight; Lymphocytes # (A) 0.8 k/uL (1.0-4.8); Lymphocytes % (A) 4 %; MCH 30.3 pg (25.0-35.0); MCV 94.5 fL (80.0-100.0); Mean Platelet Volume 8.3; Monocytes # (A) 0.7 k/uL (0-1.0); Monocytes % (A) 3 %; Neutrophils # (A) 20.3 k/uL (1.3-7.7); Neutrophils % (A) 93 %; Platelet Count 307 k/uL (150-450); RBC 2.97 m/uL (3.80-5.40); RDW 16.3 % (11.5-15.5)
[2023-03-10 04:58] LABS: Potassium 3.6 mmol/L (3.5-5.1)
[2023-03-10] MEDS: LEVOTHYROXINE 75 MCG TAB PO SCH (06:00)
[2023-03-10] MEDS: POTASSIUM CHLORIDE ER 20 MEQ TAB.ER PO SCH ×2 (06:00→08:40)
[2023-03-10] MEDS ORDERED: POTASSIUM CHLORIDE ER 20 MEQ TAB.ER PO SCH (06:00)
[2023-03-10] MEDS: methylPREDNISolone SOD SUCCI 125 MG/2 ML VIAL IV SCH ×3 (06:05→17:56)
--- NOTE | 2023-03-10 07:14 | XR ---
EXAMINATION TYPE: XR chest 1V portable DATE OF EXAM: 03/10/2023 COMPARISON: 03/09/2023 INDICATION: Diffuse bilateral pulmonary infiltrates TECHNIQUE: Single frontal view of the chest is obtained. FINDINGS: The heart size is enlarged. The pulmonary vasculature is indistinct. There is diffuse increased lung markings bilaterally. There may be some improvement on the right. IMPRESSION: 1. Slight improvement of right lung infiltrates. Stable appearing left lung infiltrates. Continued fo llow-up is recommended. 2. Cardiomegaly
--- NOTE | 2023-03-10 07:23 | P.PN ---
Subjective Progress Note Date: 03/10/23 PROGRESS NOTE The patient is 67-year-old female with known history of CAD, paroxysmal atrial fibrillation status post cardioversion, severe COPD who presented with worsening dyspnea. She continues to be on high flow oxygen, in sinus mechanism, feels better. She denies any chest discomfort, dizziness or palpitations. She had evidence of moderate cardiomyopathy. Hemodynamically she is stable, her urinary output has been good. There is no evidence of ventricular tachycardia. March 09: The patient feels better overall, she continues to be in sinus mechanism. Hemodynamically she is stable. She denies any chest discomfort or dizziness. She denies any nausea or vomiting. She has a prior history of COPD and her chest x-ray continues to show bilateral infiltrate. She had a known history of moderate cardiomyopathy. March 10: The patient became hypoxic during the night requiring BiPAP. She is in sinus mechanism with episodes of sinus bradycardia. There is occasional single PVCs but no evidence of atrial fibrillation. She is coughing but no significant sputum. She denies any chest discomfort, dizziness or palpitations. Her urinary output has been stable. She denies any nausea or vomiting. Her chest x-ray shows persistent infiltrate. Medications: Amiodarone 200 mg daily, Lasix 40 mg intravenous twice a day, levothyroxine, metoprolol 50 twice a day, midodrine 10 mg 4 times a day, Eliquis 2.5 mg twice a day, Farxiga 10 mg daily, Neurontin 100 mg 3 times a day, Lipitor 20 mg daily, metoprolol 50 mg twice a day, Zoloft, vancomycin Solu-Medrol PHYSICAL EXAMINATION: Blood pressure 127/70 heart rate 61 on BiPAP LUNGS: Scattered rhonchi HEART: Regular rate and rhythm, S1, S2. No S3. Systolic ejection murmur ABDOMEN: Soft, nontender, no organomegaly EXTREMETIES: No edema LAB: Creatinine 1.73, BUN 81, hemoglobin 9.0, WBC 22,000, potassium 3.6 IMPRESSION: 1. Respiratory failure with CHF and possible pneumonia and exacerbation of COPD, with worsening hypoxemia 2. History of CAD with prior stenting, no evidence of acute ischemic event 3. Atrial fibrillation remains in sinus mechanism, post cardioversion 4. Chronic kidney disease 5. History of moderate cardiomyopathy PLAN: 1. Continue present cardiac treatment 2. Follow renal functions 3. Depending on her heart rate adjust the dose of beta lucinda Objective - Vital Signs Vital signs: Vital Signs Temp 98.7 F 03/10/23 04:00 Pulse 61 03/10/23 06:00 Resp 20 03/10/23 06:00 BP 127/78 03/10/23 06:00 Pulse Ox 98 03/10/23 06:00 FiO2 50 03/10/23 04:00 Intake & Output 03/09/23 03/10/23 03/10/23 18:59 06:59 18:59 Intake Total 920 360 Output Total 1285 1695 Balance -365 -1335 Weight 83.4 kg Intake: IV 120 180 Cefepime 2 gm In Sodium 100 Chloride 0.9% 100 ml @ 25 mls/hr IVPB Q8HR [facility] Rx# :[id number] KVO 120 80 Intake, IV Titration 50 Amount Cefepime 1 gm In Sodium 50 Chloride 0.9% 50 ml @ 12. 5 mls/hr IVPB Q12HR [facility] Rx#:[id number] Oral 750 180 Output: Urine 1285 1695 Other: Voiding Method Indwelling Catheter Indwelling Catheter - Labs CBC & Chem 7: 03/10/23 04:16 03/10/23 04:16 Labs: Abnormal Lab Results - Last 24 Hours (Table) 03/10/23 03/10/23 Range/Units 04:16 04:16 WBC 22.0 H (3.8-10.6) k/uL RBC 2.97 L (3.80-5.40) m/uL Hgb 9.0 L (11.4-16.0) gm/dL Hct 28.1 L (34.0-46.0) % RDW 16.3 H (11.5-15.5) % Neutrophils # 20.3 H (1.3-7.7) k/uL Lymphocytes # 0.8 L (1.0-4.8) k/uL Chloride 97 L (98-107) mmol/L BUN 81 H (7-17) mg/dL Creatinine 1.73 H (0.52-1.04) mg/dL Glucose 162 H (74-99) mg/dL
[2023-03-10] MEDS: FORMOTEROL FUMARATE 20 MCG/2 ML NEBU INHALATION SCH ×2 (07:58→20:17)
[2023-03-10] MEDS: IPRATROPIUM-ALBUTEROL 3 ML NEB INHALATION SCH ×3 (07:58→20:17)
[2023-03-10] MEDS: BUDESONIDE 1 MG/2 ML NEBU INHALATION SCH ×2 (07:58→20:17)
[2023-03-10] MEDS: PANTOPRAZOLE 40 MG/10 ML VIAL IVP SCH (08:40)
[2023-03-10] MEDS: FUROSEMIDE 10 MG/ML 4 ML VIAL IV SCH ×2 (08:40→20:00)
[2023-03-10] MEDS: AMIODARONE 200 MG TAB PO SCH (08:40)
[2023-03-10] MEDS: METOPROLOL TARTRATE 50 MG TAB PO SCH ×2 (08:40→21:05)
[2023-03-10] MEDS: GABAPENTIN 100 MG CAP PO SCH ×3 (08:40→21:03)
[2023-03-10] MEDS: MIDODRINE 5 MG TAB PO SCH ×4 (08:40→22:30)
[2023-03-10] MEDS: APIXABAN 2.5 MG TABLET PO SCH ×2 (08:40→20:00)
[2023-03-10] MEDS: CEFEPIME 1 GM in SODIUM CHLORIDE 0.9% 50 ML IVPB SCH ×2 (08:41→20:00)
[2023-03-10] MEDS: DAPAGLIFLOZIN PROPANEDIOL 10 MG TABLET PO SCH (08:41)
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
--- NOTE | 2023-03-10 10:59 | P.PN ---
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 She presented to the emergency department with complaints of generalized weakness, intermittent chest pain, shortness of breath, and a headache. Patient was scheduled for cardiac ablation on 03/05/[address] Stockton. Vital signs showed BP 133/82, HR 118, RR 22, T 98.8F, SpO2 of 99% on room air. EKG showed AFib with RVR at 125 bpm. Chest x-ray showed no acute process. CT head showing no acute process. WBC count 11.4. Coagulation profile showing PT of 13.4, INR 1.3, and D-dimer at 1.97 (chronically elevated). BMP Na 130, K 3.4, Cl 94, bicarb of 21, anion gap 15, BUN of 30, Cr 1.81, with baseline Cr 1.9. Troponin less than 0.012. ProBNP 3970 which is significantly improved from previous BNP of 11,800. COVID PCR, Flu, and RSV were negative. Patient was admitted under our services secondary to intermittent chest pain and atrial fibrillation with consultation to cardiology. Troponins trended, less than 0.012, 0.012, and less than 0.012. Urinalysis was obtained and was abnormal showing positive for protein, ketones, and leukocytosis with 9 RBCs and 18 WBCs. However, patient did have urinary symptoms. Patient became hypotensive on 04/29. Was transferred to medical ICU. Started on norepinephrine. Continue to remain in atrial fibrillation with RVR. Was also started on Lasix drip. Echocardiogram showed slightly reduced LVEF of 40% with global hypokinesis, moderate aortic insufficiency. She had ARCADIO and cardioversion on 03/02, now converted to sinus rhythm. Lasix drip transitioned to IV push 03/03, then later transitioned to oral Bumex. Respiratory function worsen. CXR shows complete opacification of the right lung and pulmonary vascular congestion. Concerns for mucus plugging. Antibiotics escalated to Vancomycin and Cefepime. Will require vasopressors, currently blood pressure stable. Patient was on BiPAP, transit ioned to high flow nasal cannula, however, oxygen requirements again increasing. She is back IV diuretics, remains on IV antibiotics. Subjective: Patient is seen and examined at bedside. Overnight, patient had increasing oxygen requirements, was briefly on BiPAP, now on high flow nasal cannula. Pertinent positives and negatives as discussed above, a complete review of systems was performed and all other systems are negative. Vitals Signs Reviewed. General: nontoxic, no distress, appears at stated age, chronically ill-appearing Derm: warm, dry Head: atraumatic, normocephalic, symmetric Eyes: EOMI, no lid lag, anicteric sclera Mouth: no lip lesion, mucus membranes moist Cardiovascular: S1S2 reg, no murmur Lungs: Bilateral rales , no accessory muscle use, supplemental oxygen Abdominal: soft, nontender to palpation, no guarding, no appreciable organomegaly Ext: no gross muscle atrophy, no edema, no contractures Neuro: CN II-XI grossly intact, no focal neuro deficits Psych: Alert, oriented, appropriate affect Data Reviewed Today: Pertinent Labs: WBC 22, hemoglobin 9, potassium 3.6, creatinine 1.73, magnesium 2.5 Imaging: Chest x-ray independently interpreted Bilateral patchy infiltrates, similar to yesterday Assessment and Plan: Patient is critically ill, medical ICU, prognosis guarded. Acute on chronic hypoxic respiratory failure Sepsis secondary to bacterial pneumonia Acute COPD exacerbation History of interstitial pulmonary fibrosis -Discussed management with pulmonology, patient remains full code -solumedrol 60mg IV q6h, monitor blood sugars and ental status -budesonide/formoterol BID -duoneb TID -Cefepime 1 g every 12 hours Cardiogenic shock, resolved Acute on chronic diastolic and systolic CHF, EF 40% Paroxysmal atrial fibrillation with RVR, s/p cardioversion, now in sinus -Off of vasopressors - lasix 40mg IV twice a day, monitor electrolytes and renal function - I/Os, daily weights - Amiodarone 200mg daily, metoprolol 50mg BID - Eliquis 2.5mg BID -Continue midodrine -Cardiology note reviewed, continue current management Acute on chronic renal failure -Resolving. GFR and Cr appears at baseline again -Nephrology following History of CAD status post stent -Lipitor 20 mg PO QHS. Would benefit from ASA. Resolved: Hypokalemia, Hypomagnesemia Chronic: Hypothyroidism DVT ppx: Eliquis Code status: Full code Anticipated discharge place: Pending clinical course Anticipated discharge time: Pending clinical course Objective - Vital Signs Vital signs: Vital Signs Temp 98.7 F 03/10/23 04:00 Pulse 61 03/10/23 10:00 Resp 23 03/10/23 10:00 BP 112/70 03/10/23 10:00 Pulse Ox 89 L 03/10/23 10:00 FiO2 50 03/10/23 08:00 Intake & Output 03/09/23 03/10/23 03/10/23 18:59 06:59 18:59 Intake Total 920 360 340 Output Total 1285 1695 550 Balance -786 -4584 -576 Weight 83.4 kg Intake: IV 120 180 40 Cefepime 2 gm In Sodium 100 Chloride 0.9% 100 ml @ 25 mls/hr IVPB Q8HR [facility] Rx# :[id number] KVO 120 80 40 Intake, IV Titration 50 Amount Cefepime 1 gm In Sodium 50 Chloride 0.9% 50 ml @ 12. 5 mls/hr IVPB Q12HR [facility] Rx#:[id number] Oral 750 180 300 Output: Urine 1285 1695 550 Other: Voiding Method Indwelling Catheter Indwelling Catheter - Labs CBC & Chem 7: 03/10/23 04:16 03/10/23 04:16 Labs: Abnormal Lab Results - Last 24 Hours (Table) 03/10/23 03/10/23 03/10/23 Range/Units 04:16 04:16 04:16 WBC 22.0 H (3.8-10.6) k/uL RBC 2.97 L (3.80-5.40) m/uL Hgb 9.0 L (11.4-16.0) gm/dL Hct 28.1 L (34.0-46.0) % RDW 16.3 H (11.5-15.5) % Neutrophils # 20.3 H (1.3-7.7) k/uL Lymphocytes # 0.8 L (1.0-4.8) k/uL Chloride 97 L (98-107) mmol/L BUN 81 H (7-17) mg/dL Creatinine 1.73 H (0.52-1.04) mg/dL Glucose 162 H (74-99) mg/dL Magnesium 2.5 H (1.6-2.3) mg/dL
--- NOTE | 2023-03-10 11:03 | P.PN ---
Progress Note - Text Progress Note Date: 03/10/23 Advanced Care Planning: Diagnoses: Acute on chronic hypoxic respiratory failure Sepsis secondary bacterial pneumonia Acute COPD exacerbation Acute on chronic diastolic and systolic history of exacerbation Acute on chronic renal failure Discussion: Person(s) present and participating in discussion: Patient and Summary: Had a lengthy discussion with regards to goals of care. Patient has been in the hospital for nearly 2 weeks. She had improvement in her respiratory status, however, now worsening. She is still hopeful that she will recover, and would like to stay full code. In case of a medical emergency, her his her proxy. Patient is made aware that due to her chronic lung disease, and this hospitalization with worsening respiratory status her prognosis is really poor. A total of 30 minutes of face to face time was spent discussing advanced care planning.
[2023-03-10] MEDS: LIDOCAINE 4% PATCH TOPICAL SCH (12:56)
[2023-03-10] MEDS: HYDROcodone/APAP 5-325MG 1 EACH TAB PO PRN ×2 (15:47→21:03)
[2023-03-10] MEDS: NOREPINEPHRINE 4 MG in SODIUM CHLORIDE 0.9% 250 ML IV SCH (15:47)
[2023-03-10] MEDS: ATORVASTATIN 20 MG TAB PO SCH (20:00)
[2023-03-10] MEDS: SERTRALINE 100 MG TAB PO SCH (20:00)
[2023-03-11] MEDS: methylPREDNISolone SOD SUCCI 125 MG/2 ML VIAL IV SCH ×4 (06:23→21:13)
[2023-03-11] MEDS: LEVOTHYROXINE 75 MCG TAB PO SCH (06:23)
[2023-03-11 06:26] LABS: African American GFR (CKD) 32 (>60 ml/min/1.73 sqM); Anion Gap 13 mmol/L; Blood Urea Nitrogen 84 mg/dL (7-17); Calcium 8.7 mg/dL (8.4-10.2); Carbon Dioxide 27 mmol/L (22-30); Chloride 96 mmol/L (98-107); Glucose 251 mg/dL (74-99); Magnesium 2.5 mg/dL (1.6-2.3); Non-African American GFR(CKD) 28 (>60 ml/min/1.73 sqM); Potassium 3.7 mmol/L (3.5-5.1); Sodium 136 mmol/L (137-145)
--- NOTE | 2023-03-11 07:36 | P.PN ---
Subjective Progress Note Date: 03/11/23 PROGRESS NOTE The patient is 67-year-old female with known history of CAD, paroxysmal atrial fibrillation status post cardioversion, severe COPD who presented with worsening dyspnea. She continues to be on high flow oxygen, in sinus mechanism, feels better. She denies any chest discomfort, dizziness or palpitations. She had evidence of moderate cardiomyopathy. Hemodynamically she is stable, her urinary output has been good. There is no evidence of ventricular tachycardia. March 09: The patient feels better overall, she continues to be in sinus mechanism. Hemodynamically she is stable. She denies any chest discomfort or dizziness. She denies any nausea or vomiting. She has a prior history of COPD and her chest x-ray continues to show bilateral infiltrate. She had a known history of moderate cardiomyopathy. March 10: The patient became hypoxic during the night requiring BiPAP. She is in sinus mechanism with episodes of sinus bradycardia. There is occasional single PVCs but no evidence of atrial fibrillation. She is coughing but no significant sputum. She denies any chest discomfort, dizziness or palpitations. Her urinary output has been stable. She denies any nausea or vomiting. Her chest x-ray shows persistent infiltrate. March 11: The patient feels well this morning, she continues to have mild dyspnea but stable. She denies any chest discomfort, dizziness or palpitations. She continues to be in sinus mechanism with stable blood pressure. Her urinary output is good. She has no nausea or vomiting. Medications: Amiodarone 200 mg daily, Lasix 40 mg intravenous twice a day, levothyroxine, metoprolol 50 twice a day, midodrine 10 mg 4 times a day, Eliquis 2.5 mg twice a day, Farxiga 10 mg daily, Neurontin 100 mg 3 times a day, Lipitor 20 mg daily, metoprolol 50 mg twice a day, Zoloft, vancomycin Solu-Medrol PHYSICAL EXAMINATION: Blood pressure 108/60 heart rate 60 LUNGS: Scattered rhonchi bilaterally HEART: Regular rate and rhythm, S1, S2. No S3. Systolic ejection murmur ABDOMEN: Soft, nontender, no organomegaly EXTREMETIES: No edema LAB: Creatinine 1.84, BUN 84, potassium 3.7 IMPRESSION: 1. Respiratory failure with CHF and possible pneumonia and exacerbation of COPD, improving 2. History of CAD with prior stenting, no evidence of acute ischemic event 3. Atrial fibrillation remains in sinus mechanism, post cardioversion 4. Chronic kidney disease 5. History of moderate cardiomyopathy PLAN: 1. Continue present cardiac treatment 2. Follow renal functions 3. Increase physical activity 4. If stable changed to oral diuretics in 24 hours Objective - Vital Signs Vital signs: Vital Signs Temp 97.9 F 03/11/23 00:00 Pulse 56 L 03/11/23 07:00 Resp 15 03/11/23 07:00 BP 108/66 03/11/23 07:00 Pulse Ox 96 03/11/23 07:00 FiO2 10 03/11/23 07:00 Intake & Output 03/10/23 03/11/23 03/11/23 18:59 06:59 18:59 Intake Total 1020 410.0 10 Output Total 1185 1610 Balance -165 -1200.0 10 Weight 83.5 kg Intake: IV 120 160.0 10 Cefepime 1 gm In Sodium 50.0 Chloride 0.9% 50 ml @ 12. 5 mls/hr IVPB Q12HR [facility] Rx#:[id number] KVO 120 110 10 Oral 900 250 Output: Urine 1185 1610 Other: Voiding Method Indwelling Catheter Indwelling Catheter - Labs CBC & Chem 7: 03/10/23 04:16 03/11/23 05:04 Labs: Abnormal Lab Results - Last 24 Hours (Table) 03/10/23 03/11/23 Range/Units 04:16 05:04 Sodium 136 L (137-145) mmol/L Chloride 96 L (98-107) mmol/L BUN 84 H (7-17) mg/dL Creatinine 1.84 H (0.52-1.04) mg/dL Glucose 251 H (74-99) mg/dL Magnesium 2.5 H 2.5 H (1.6-2.3) mg/dL Microbiology - Last 24 Hours (Table) 03/05/23 10:25 Blood Culture - Final Blood
--- NOTE | 2023-03-11 08:10 | XR ---
EXAMINATION TYPE: XR chest 1V portable DATE OF EXAM: 03/11/2023 HISTORY: Shortness of breath. COMPARISON: 03/10/2023 TECHNIQUE: Single view of the chest is submitted. FINDINGS: Demonstrated are scattered senescent parenchymal change. Persistent coarse infiltrates throughout both lung sanchez. The heart is stable. Hilar and mediastinal structures are within normal limits. Degenerative changes are seen of the dorsal spine. IMPRESSION: 1. Persistent coarse infiltrates throughout both lung sanchez.
[2023-03-11] MEDS: FORMOTEROL FUMARATE 20 MCG/2 ML NEBU INHALATION SCH ×2 (08:13→20:10)
[2023-03-11] MEDS: IPRATROPIUM-ALBUTEROL 3 ML NEB INHALATION SCH ×3 (08:13→20:10)
[2023-03-11] MEDS: BUDESONIDE 1 MG/2 ML NEBU INHALATION SCH ×2 (08:13→20:10)
[2023-03-11] MEDS ORDERED: POTASSIUM CHLORIDE ER 20 MEQ TAB.ER PO SCH (08:45)
[2023-03-11 09:00] LABS: Anisocytosis Slight; Basophils # (A) 0.1 k/uL (0-0.2); Basophils % (A) 0 %; Eosinophils % (A) 0 %; HGB 9.1 gm/dL (11.4-16.0); Hypochromasia Slight; Lymphocytes # (A) 0.5 k/uL (1.0-4.8); Lymphocytes % (A) 3 %; MCH 33.1 pg (25.0-35.0); MCHC 35.1 g/dL (31.0-37.0); MCV 94.2 fL (80.0-100.0); Mean Platelet Volume 8.8; Monocytes # (A) 0.6 k/uL (0-1.0); Monocytes % (A) 3 %; Neutrophils # (A) 17.5 k/uL (1.3-7.7); Neutrophils % (A) 93 %; Platelet Count 245 k/uL (150-450); RBC 2.76 m/uL (3.80-5.40); RDW 16.4 % (11.5-15.5); WBC 18.8 k/uL (3.8-10.6)
[2023-03-11] MEDS: METOPROLOL TARTRATE 50 MG TAB PO SCH ×3 (09:13→21:14)
[2023-03-11] MEDS: APIXABAN 2.5 MG TABLET PO SCH ×2 (09:13→21:14)
[2023-03-11] MEDS: AMIODARONE 200 MG TAB PO SCH (09:13)
[2023-03-11] MEDS: DAPAGLIFLOZIN PROPANEDIOL 10 MG TABLET PO SCH (09:13)
[2023-03-11] MEDS: MIDODRINE 5 MG TAB PO SCH ×4 (09:13→21:13)
[2023-03-11] MEDS: GABAPENTIN 100 MG CAP PO SCH ×3 (09:14→21:14)
[2023-03-11] MEDS: PANTOPRAZOLE 40 MG/10 ML VIAL IVP SCH (09:14)
[2023-03-11] MEDS: FUROSEMIDE 10 MG/ML 4 ML VIAL IV SCH ×2 (09:14→21:14)
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
[2023-03-11] MEDS: CEFEPIME 1 GM in SODIUM CHLORIDE 0.9% 50 ML IVPB SCH ×2 (10:07→21:13)
--- NOTE | 2023-03-11 11:39 | P.PN ---
Subjective Patient is seen for follow-up for chronic kidney disease and acute kidney injury. She is currently being diuresed for volume overload. Off of pressors Currently off of BiPAP and oxygen via nasal cannula is at about 13 L Good urine output, 2.9 L for 24 hours Serum creatinine staying at 1.6-1.7 mg/dL. Lasix was increased to twice a day yesterday Objective - Vital Signs Vital signs: Vital Signs Temp 98.1 F 03/11/23 08:00 Pulse 61 03/11/23 09:00 Resp 12 03/11/23 09:00 BP 125/94 03/11/23 09:00 Pulse Ox 97 03/11/23 09:00 FiO2 10 03/11/23 07:00 Intake & Output 03/10/23 03/11/23 03/11/23 18:59 06:59 18:59 Intake Total 1020 410.0 128 Output Total 1185 1610 100 Balance -165 -1200.0 28 Weight 83.5 kg Intake: IV 120 160.0 10 Cefepime 1 gm In Sodium 50.0 Chloride 0.9% 50 ml @ 12. 5 mls/hr IVPB Q12HR [facility] Rx#:[id number] KVO 120 110 10 Oral 900 250 118 Output: Urine 1185 1610 100 Other: Voiding Method Indwelling Catheter Indwelling Catheter - Exam Patient is awake, comfortable, alert oriented 3 No acute distress Examination of the heart S1 and S2 Examination the lungs decreased breath sounds at the bases Abdomen is soft nontender Examination lower extremity shows 1+ edema [employer] exam grossly intact - Labs CBC & Chem 7: 03/11/23 08:10 03/11/23 05:04 Labs: Abnormal Lab Results - Last 24 Hours (Table) 03/11/23 03/11/23 Range/Units 05:04 08:10 WBC 18.8 H (3.8-10.6) k/uL RBC 2.76 L (3.80-5.40) m/uL Hgb 9.1 L (11.4-16.0) gm/dL Hct 26.0 L (34.0-46.0) % RDW 16.4 H (11.5-15.5) % Neutrophils # 17.5 H (1.3-7.7) k/uL Lymphocytes # 0.5 L (1.0-4.8) k/uL Sodium 136 L (137-145) mmol/L Chloride 96 L (98-107) mmol/L BUN 84 H (7-17) mg/dL Creatinine 1.84 H (0.52-1.04) mg/dL Glucose 251 H (74-99) mg/dL Magnesium 2.5 H (1.6-2.3) mg/dL Microbiology - Last 24 Hours (Table) 03/05/23 10:25 Blood Culture - Final Blood Assessment and Plan Assessment: 1. Chronic kidney disease stage IV with baseline creatinine 1.5 - 2 secondary to cardiorenal syndrome and nephrosclerosis. Fluctuation in renal function based on volume status and diuresis. Atrophic kidneys noted on renal ultrasound done January 2023. 2. A. fib with RVR maintained on amiodarone and Lopressor. Status post cardioversion and ARCADIO. 3. Hypotension status post levo fed Also on midodrine. 4. Hypervolemic hyponatremia. Stable. 5. Hypokalemia from diuresis. Replaced. Better. 6. Acute on chronic systolic CHF with ejection fraction of 40% with moderate aortic insufficiency. 7. History of coronary artery disease with cardiac stenting. 8. Volume overload. Improving with diuresis. 9. Hypomagnesemia from diuresis. Replaced. Better. 10. Right lung opacification. Possibly mucous plug. Pulmonology following. Plan: Continue to diurese patient. Continue Lasix twice a day. Renal function remai ns stable Continue midodrine and hold if systolic blood pressure more than 110 mmHg Repeat labs in a.m.
--- NOTE | 2023-03-11 11:41 | P.PN ---
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 She presented to the emergency department with complaints of generalized weakness, intermittent chest pain, shortness of breath, and a headache. Patient was scheduled for cardiac ablation on 03/05/[address] Stockton. Vital signs showed BP 133/82, HR 118, RR 22, T 98.8F, SpO2 of 99% on room air. EKG showed AFib with RVR at 125 bpm. Chest x-ray showed no acute process. CT head showing no acute process. WBC count 11.4. Coagulation profile showing PT of 13.4, INR 1.3, and D-dimer at 1.97 (chronically elevated). BMP Na 130, K 3.4, Cl 94, bicarb of 21, anion gap 15, BUN of 30, Cr 1.81, with baseline Cr 1.9. Troponin less than 0.012. ProBNP 3970 which is significantly improved from previous BNP of 11,800. COVID PCR, Flu, and RSV were negative. Patient was admitted under our services secondary to intermittent chest pain and atrial fibrillation with consultation to cardiology. Troponins trended, less than 0.012, 0.012, and less than 0.012. Urinalysis was obtained and was abnormal showing positive for protein, ketones, and leukocytosis with 9 RBCs and 18 WBCs. However, patient did have urinary symptoms. Patient became hypotensive on 04/29. Was transferred to medical ICU. Started on norepinephrine. Continue to remain in atrial fibrillation with RVR. Was also started on Lasix drip. Echocardiogram showed slightly reduced LVEF of 40% with global hypokinesis, moderate aortic insufficiency. She had ARCADIO and cardioversion on 03/02, now converted to sinus rhythm. Lasix drip transitioned to IV push 03/03, then later transitioned to oral Bumex. Respiratory function worsen. CXR shows complete opacification of the right lung and pulmonary vascular congestion. Concerns for mucus plugging. Antibiotics escalated to Vancomycin and Cefepime. Will require vasopressors, currently blood pressure stable. Patient on and off with BiPAP, transitioned to high flow nasal cannula occasionally, however, oxygen requirements still high. She is back IV diuretics, remains on IV antibiotics. Pending bronchoscopy Subjective: Patient is seen and examined at bedside. No changes in her respiratory function, still requiring high amounts of oxygen. Patient feels congested, unable to cough. Pertinent positives and negatives as discussed above, a complete review of systems was performed and all other systems are negative. Vitals Signs Reviewed. General: nontoxic, no distress, appears at stated age, chronically ill-appearing Derm: warm, dry Head: atraumatic, normocephalic, symmetric Eyes: EOMI, no lid lag, anicteric sclera Mouth: no lip lesion, mucus membranes moist Cardiovascular: S1S2 reg, no murmur Lungs: Bilateral rhonchi, no accessory muscle use, supplemental oxygen Abdominal: soft, nontender to palpation, no guarding, no appreciable organomegaly Ext: no gross muscle atrophy, no edema, no contractures Neuro: CN II-XI grossly intact, no focal neuro deficits Psych: Alert, oriented, appropriate affect Data Reviewed Today: Pertinent Labs: WBC 18.8, hemoglobin 9.1, sodium 136, creatinine 1.84, magnesium 2.5 Imaging: Chest x-ray independently interpreted Bilateral patchy infiltrates, similar to yesterday Assessment and Plan: Patient is critically ill, medical ICU, prognosis guarded. Acute on chronic hypoxic respiratory failure Sepsis secondary to bacterial pneumonia Acute COPD exacerbation History of interstitial pulmonary fibrosis -Discussed management with pulmonology, pending bronchoscopy today -solumedrol 60mg IV q6h, monitor blood sugars and mental status, likely needed for another 24 hours -budesonide/formoterol BID -duoneb TID -Cefepime 1 g every 12 hours Cardiogenic shock, resolved Acute on chronic diastolic and systolic CHF, EF 40% Paroxysmal atrial fibrillation with RVR, s/p cardioversion, now in sinus -Off of vasopressors - lasix 40mg IV twice a day, monitor electrolytes and renal function - I/Os, daily weights - Amiodarone 200mg daily, metoprolol 50mg BID - Eliquis 2.5mg BID -Continue midodrine -Cardiology note reviewed, continue current management, possibly switch to oral Lasix tomorrow Acute on chronic renal failure -Resolving. GFR and Cr appears at baseline again -Nephrology following History of CAD status post stent -Lipitor 20 mg PO QHS. Would benefit from ASA. Resolved: Hypokalemia, Hypomagnesemia Chronic: Hypothyroidism DVT ppx: Eliquis Code status: Full code Anticipated discharge place: Pending clinical course Anticipated discharge time: Pending clinical course Objective - Vital Signs Vital signs: Vital Signs Temp 98.1 F 03/11/23 08:00 Pulse 61 03/11/23 09:00 Resp 12 03/11/23 09:00 BP 125/94 03/11/23 09:00 Pulse Ox 97 03/11/23 09:00 FiO2 10 03/11/23 07:00 Intake & Output 03/10/23 03/11/23 03/11/23 18:59 06:59 18:59 Intake Total 1020 410.0 128 Output Total 1185 1610 100 Balance -165 -1200.0 28 Weight 83.5 kg Intake: IV 120 160.0 10 Cefepime 1 gm In Sodium 50.0 Chloride 0.9% 50 ml @ 12. 5 mls/hr IVPB Q12HR [facility] Rx#:[id number] KVO 120 110 10 Oral 900 250 118 Output: Urine 1185 1610 100 Other: Voiding Method Indwelling Catheter Indwelling Catheter - Labs CBC & Chem 7: 03/11/23 08:10 03/11/23 05:04 Labs: Abnormal Lab Results - Last 24 Hours (Table) 03/11/23 03/11/23 Range/Units 05:04 08:10 WBC 18.8 H (3.8-10.6) k/uL RBC 2.76 L (3.80-5.40) m/uL Hgb 9.1 L (11.4-16.0) gm/dL Hct 26.0 L (34.0-46.0) % RDW 16.4 H (11.5-15.5) % Neutrophils # 17.5 H (1.3-7.7) k/uL Lymphocytes # 0.5 L (1.0-4.8) k/uL Sodium 136 L (137-145) mmol/L Chloride 96 L (98-107) mmol/L BUN 84 H (7-17) mg/dL Creatinine 1.84 H (0.52-1.04) mg/dL Glucose 251 H (74-99) mg/dL Magnesium 2.5 H (1.6-2.3) mg/dL Microbiology - Last 24 Hours (Table) 03/05/23 10:25 Blood Culture - Final Blood
--- NOTE | 2023-03-11 11:42 | P.PN ---
Subjective Patient is seen for follow-up for chronic kidney disease and acute kidney injury. She is currently being diuresed for volume overload. Off of pressors Currently off of BiPAP and oxygen via nasal cannula is at about 10 L Good urine output, 2.79 L for 24 hours Serum creatinine staying at 1.6-1.7 mg/dL, it is at 1.8 today Lasix was increased to twice a day. No significant change noted in chest x-ray. Patient is scheduled for bronchoscopy today. Objective - Vital Signs Vital signs: Vital Signs Temp 98.1 F 03/11/23 08:00 Pulse 61 03/11/23 09:00 Resp 12 03/11/23 09:00 BP 125/94 03/11/23 09:00 Pulse Ox 97 03/11/23 09:00 FiO2 10 03/11/23 07:00 Intake & Output 03/10/23 03/11/23 03/11/23 18:59 06:59 18:59 Intake Total 1020 410.0 128 Output Total 1185 1610 100 Balance -165 -1200.0 28 Weight 83.5 kg Intake: IV 120 160.0 10 Cefepime 1 gm In Sodium 50.0 Chloride 0.9% 50 ml @ 12. 5 mls/hr IVPB Q12HR [facility] Rx#:[id number] KVO 120 110 10 Oral 900 250 118 Output: Urine 1185 1610 100 Other: Voiding Method Indwelling Catheter Indwelling Catheter - Exam Patient is awake, comfortable, alert oriented 3 No acute distress Examination of the heart S1 and S2 Examination the lungs decreased breath sounds at the bases Abdomen is soft nontender Examination lower extremity shows 1+ edema GU[employer] exam grossly intact - Labs CBC & Chem 7: 03/11/23 08:10 03/11/23 05:04 Labs: Abnormal Lab Results - Last 24 Hours (Table) 03/11/23 03/11/23 Range/Units 05:04 08:10 WBC 18.8 H (3.8-10.6) k/uL RBC 2.76 L (3.80-5.40) m/uL Hgb 9.1 L (11.4-16.0) gm/dL Hct 26.0 L (34.0-46.0) % RDW 16.4 H (11.5-15.5) % Neutrophils # 17.5 H (1.3-7.7) k/uL Lymphocytes # 0.5 L (1.0-4.8) k/uL Sodium 136 L (137-145) mmol/L Chloride 96 L (98-107) mmol/L BUN 84 H (7-17) mg/dL Creatinine 1.84 H (0.52-1.04) mg/dL Glucose 251 H (74-99) mg/dL Magnesium 2.5 H (1.6-2.3) mg/dL Microbiology - Last 24 Hours (Table) 03/05/23 10:25 Blood Culture - Final Blood Assessment and Plan Assessment: 1. Chronic kidney disease stage IV with baseline creatinine 1.5 - 2 secondary to cardiorenal syndrome and nephrosclerosis. Fluctuation in renal function based on volume status and diuresis. Atrophic kidneys noted on renal ultrasound done January 2023. 2. A. fib with RVR maintained on amiodarone and Lopressor. Status post cardioversion and ARCADIO. 3. Hypotension status post levo fed Also on midodrine. 4. Hypervolemic hyponatremia. Stable. 5. Hypokalemia from diuresis. Replaced. Better. 6. Acute on chronic systolic CHF with ejection fraction of 40% with moderate aortic insufficiency. 7. History of coronary artery disease with cardiac stenting. 8. Volume overload. Improving with diuresis. 9. Hypomagnesemia from diuresis. Replaced. Better. 10. Right lung opacification. Possibly mucous plug. Pulmonology following. Camilo Song for bronchoscopy today Plan: Continue to diurese patient. Decrease IV Lasix to once a day after bronchoscopy. Edema has improved. Expect improvement in chest x-ray post bronchoscopy. Continue midodrine and hold if systolic blood pressure more than 110 mmHg Repeat labs in a.m.
[2023-03-11] MEDS: LIDOCAINE 4% PATCH TOPICAL SCH (11:54)
[2023-03-11] MEDS ORDERED: MIDAZOLAM 1 MG/ML 5 ML VIAL IV STA (14:56)
[2023-03-11] MEDS ORDERED: LIDOCAINE 2% INJ 20 MG/ML INTRATRACH ONE ×2 (15:03→15:08)
[2023-03-11] MEDS: NOREPINEPHRINE 4 MG in SODIUM CHLORIDE 0.9% 250 ML IV SCH (16:20)
[2023-03-11] MEDS: HYDROcodone/APAP 5-325MG 1 EACH TAB PO PRN (16:26)
--- NOTE | 2023-03-11 19:26 | P.PCN ---
Date of Procedure: 03/11/23 Preoperative Diagnosis: Shortness of breath, hypoxemia Postoperative Diagnosis: Tracheobronchomalacia Extensive mucus plugging Therapeutic airway suctioning and a bronchial lavage Procedure(s) Performed: Flexible bronchoscopy and bronchoalveolar lavage Anesthesia: MAC Surgeon: Rosie Sotomayor Estimated Blood Loss (ml): 0 Pathology: other Condition: critical Disposition: ICU Operative Findings: This procedure was done in the intensive care unit. The patient 100% on a percent nonrebreather facemask. During the procedure, the patient was given a total of 4.5 mg of IV Versed. Once adequate sedation was achieved, the flexible bronchoscope was introduced for the left nostril. There was copious amount of secretions occupying the posterior pharynx and larynx and those secretions were suctioned out using the flexible bronchoscope. Following that, inspection of the upper airway was done. Cords function was mobility and within normal limits. The vallecula and the arytenoids were inspected and are within normal limits. A total of 2 mL of 1% lidocaine was applied to the vocal cord and following that the flexible bronchoscope was advanced into the upper trachea. Examination of the airway was performed. Trachea was quite inflamed and there was copious amount of rest or secretions occupying the membranous wall of the trachea that were suctioned out. The patient had taken bronchomalacia with dynamic obstruction with exhalation and coughing. Similar amount of rest or secretions were found in the lower lobes bilaterally and upper lobes bilaterally. At this point, therapeutic airway suctioning was done. A total of 25 mL of purulent material that were brown looking was aspirated without any major difficulties. Airway inspection was done. Visualized airways included the bilateral mainstem bronchi, right upper lobe bronchus, bronchus intermedius, right middle lobe bronchus, right lower lobe bronchus and the various 10 segments on the right and examination of the left side included the left upper lobe bronchus and the left lower lobe bronchus and the various segments on the left. Segmental bronchial aspiration of secretions were done. Following that, bronchioloalveolar lavage of the right lower lobe was done. Aspirate was in the order of 15-20 mL. The procedure was completed. The bronchoscope was removed. No complications the patient was able to maintain a pulse ox above 90% throughout the procedure.
[2023-03-11] MEDS: SERTRALINE 100 MG TAB PO SCH (21:13)
[2023-03-11] MEDS: ATORVASTATIN 20 MG TAB PO SCH (21:13)
[2023-03-12] MEDS: methylPREDNISolone SOD SUCCI 125 MG/2 ML VIAL IV SCH ×4 (00:09→19:01)
[2023-03-12] MEDS: LEVOTHYROXINE 75 MCG TAB PO SCH (06:03)
[2023-03-12 06:05] LABS: Anisocytosis Slight; Basophils % (A) 0 %; Eosinophils % (A) 0 %; HCT 29.7 % (34.0-46.0); HGB 9.5 gm/dL (11.4-16.0); Hypochromasia Slight; Lymphocytes # (A) 0.6 k/uL (1.0-4.8); Lymphocytes % (A) 3 %; MCH 30.1 pg (25.0-35.0); MCHC 31.9 g/dL (31.0-37.0); MCV 94.4 fL (80.0-100.0); Mean Platelet Volume 8.2; Monocytes # (A) 0.4 k/uL (0-1.0); Monocytes % (A) 2 %; Neutrophils % (A) 94 %; Platelet Count 270 k/uL (150-450); RBC 3.14 m/uL (3.80-5.40); RDW 16.5 % (11.5-15.5); WBC 19.1 k/uL (3.8-10.6)
[2023-03-12 06:25] LABS: African American GFR (CKD) 27 (>60 ml/min/1.73 sqM); Anion Gap 9 mmol/L; Blood Urea Nitrogen 86 mg/dL (7-17); Calcium 8.5 mg/dL (8.4-10.2); Carbon Dioxide 35 mmol/L (22-30); Chloride 94 mmol/L (98-107); Glucose 171 mg/dL (74-99); Non-African American GFR(CKD) 23 (>60 ml/min/1.73 sqM); Potassium 3.7 mmol/L (3.5-5.1); Sodium 138 mmol/L (137-145)
--- NOTE | 2023-03-12 07:29 | P.PN ---
Subjective Progress Note Date: 03/12/23 PROGRESS NOTE The patient is 67-year-old female with known history of CAD, paroxysmal atrial fibrillation status post cardioversion, severe COPD who presented with worsening dyspnea. She continues to be on high flow oxygen, in sinus mechanism, feels better. She denies any chest discomfort, dizziness or palpitations. She had evidence of moderate cardiomyopathy. Hemodynamically she is stable, her urinary output has been good. There is no evidence of ventricular tachycardia. March 09: The patient feels better overall, she continues to be in sinus mechanism. Hemodynamically she is stable. She denies any chest discomfort or dizziness. She denies any nausea or vomiting. She has a prior history of COPD and her chest x-ray continues to show bilateral infiltrate. She had a known history of moderate cardiomyopathy. March 10: The patient became hypoxic during the night requiring BiPAP. She is in sinus mechanism with episodes of sinus bradycardia. There is occasional single PVCs but no evidence of atrial fibrillation. She is coughing but no significant sputum. She denies any chest discomfort, dizziness or palpitations. Her urinary output has been stable. She denies any nausea or vomiting. Her chest x-ray shows persistent infiltrate. March 11: The patient feels well this morning, she continues to have mild dyspnea but stable. She denies any chest discomfort, dizziness or palpitations. She continues to be in sinus mechanism with stable blood pressure. Her urinary output is good. She has no nausea or vomiting. March 12: The patient is feeling relatively well this morning she continues to be dyspneic and fatigued. She had bronchoscopy yesterday and removal of mucous plugging and secretions. She continues to be in sinus mechanism with sinus bradycardia. There is no evidence of recurrent atrial fibrillation. Her blood pressure has been stable. She is on no vasopressors. Her urinary output has been stable. Her chest x-ray continues to show bilateral infiltrate. She continues to be on IV Lasix. Medications: Amiodarone 200 mg daily, Lasix 40 mg intravenous twice a day, levothyroxine, metoprolol 50 twice a day, midodrine 10 mg 4 times a day, Eliquis 2.5 mg twice a day, Farxiga 10 mg daily, Neurontin 100 mg 3 times a day, Lipitor 20 mg daily, metoprolol 50 mg twice a day, Zoloft, vancomycin Solu-Medrol PHYSICAL EXAMINATION: Blood pressure 125/70 heart rate 55 LUNGS: Scattered rhonchi bilaterally HEART: Regular rate and rhythm, S1, S2. No S3. Systolic ejection murmur ABDOMEN: Soft, nontender, no organomegaly EXTREMETIES: No edema LAB: Creatinine 2.12, BUN 56, potassium 3.7 IMPRESSION: 1. Respiratory failure with CHF and possible pneumonia and exacerbation of COPD, improving status post bronchoscopy 2. History of CAD with prior stenting, no evidence of acute ischemic event 3. Atrial fibrillation remains in sinus mechanism, post cardioversion with sinus bradycardia 4. Chronic kidney disease 5. History of moderate cardiomyopathy PLAN: 1. Decrease amiodarone 2. Follow renal functions 3. Increase physical activity 4. Change to oral diuretics Objective - Vital Signs Vital signs: Vital Signs Temp 98.4 F 03/11/23 20:00 Pulse 51 L 03/12/23 07:00 Resp 17 03/12/23 07:00 BP 125/73 03/12/23 07:00 Pulse Ox 98 03/12/23 07:00 FiO2 10 03/11/23 07:00 Intake & Output 03/11/23 03/12/23 03/12/23 18:59 06:59 18:59 Intake Total 698 500 Output Total 1600 1700 0 Balance -902 -1200 0 Weight 80 kg Intake: IV 90 50 Cefepime 1 gm In Sodium 50 50 Chloride 0.9% 50 ml @ 12. 5 mls/hr IVPB Q12HR [facility] Rx#:[id number] KVO 40 0 Oral 608 450 Output: Urine 1600 1700 0 Other: Voiding Method External Catheter External Catheter - Labs CBC & Chem 7: 03/12/23 05:49 03/12/23 05:49 Labs: Abnormal Lab Results - Last 24 Hours (Table) 03/11/23 03/12/23 03/12/23 Range/Units 08:10 05:49 05:49 WBC 18.8 H 19.1 H (3.8-10.6) k/uL RBC 2.76 L 3.14 L (3.80-5.40) m/uL Hgb 9.1 L 9.5 L (11.4-16.0) gm/dL Hct 26.0 L 29.7 L (34.0-46.0) % RDW 16.4 H 16.5 H (11.5-15.5) % Neutrophils # 17.5 H 18.0 H (1.3-7.7) k/uL Lymphocytes # 0.5 L 0.6 L (1.0-4.8) k/uL Chloride 94 L (98-107) mmol/L Carbon Dioxide 35 H (22-30) mmol/L BUN 86 H (7-17) mg/dL Creatinine 2.12 H (0.52-1.04) mg/dL Glucose 171 H (74-99) mg/dL
--- NOTE | 2023-03-12 08:37 | XR ---
EXAMINATION TYPE: XR chest 1V portable DATE OF EXAM: 03/12/2023 Comparison: 03/11/2023 Clinical History: 67-year-old female shortness of breath, possible aspiration Findings: Heart is moderately enlarged. Diffuse interstitial and patchy airspace opacities remain throughout th e lungs. No pleural effusion. Impression: Similar moderate cardiomegaly and diffuse interstitial and airspace opacities.
[2023-03-12] MEDS: FUROSEMIDE 40 MG TAB PO SCH ×2 (08:58→15:48)
[2023-03-12] MEDS: DAPAGLIFLOZIN PROPANEDIOL 10 MG TABLET PO SCH (08:58)
[2023-03-12] MEDS: PANTOPRAZOLE 40 MG/10 ML VIAL IVP SCH (08:58)
[2023-03-12] MEDS: CEFEPIME 1 GM in SODIUM CHLORIDE 0.9% 50 ML IVPB SCH ×2 (08:59→20:29)
[2023-03-12] MEDS: GABAPENTIN 100 MG CAP PO SCH ×3 (08:59→20:28)
[2023-03-12] MEDS: AMIODARONE 100 MG TAB PO SCH (08:59)
[2023-03-12] MEDS: APIXABAN 2.5 MG TABLET PO SCH ×2 (08:59→20:29)
[2023-03-12] MEDS ORDERED: ASPIRIN-ACET-CAFF 250-250-65MG 1 EACH TAB PO PRN (09:01)
[2023-03-12] MEDS: BUDESONIDE 1 MG/2 ML NEBU INHALATION SCH ×2 (09:06→21:17)
[2023-03-12] MEDS: MIDODRINE 5 MG TAB PO SCH ×4 (09:06→20:29)
[2023-03-12] MEDS: IPRATROPIUM-ALBUTEROL 3 ML NEB INHALATION SCH ×3 (09:06→21:17)
[2023-03-12] MEDS: METOPROLOL TARTRATE 50 MG TAB PO SCH ×2 (09:06→20:28)
[2023-03-12] MEDS: FORMOTEROL FUMARATE 20 MCG/2 ML NEBU INHALATION SCH ×2 (09:06→21:17)
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
--- NOTE | 2023-03-12 11:09 | P.PN ---
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 She presented to the emergency department with complaints of generalized weakness, intermittent chest pain, shortness of breath, and a headache. Patient was scheduled for cardiac ablation on 03/05/[address] Stockton. Vital signs showed BP 133/82, HR 118, RR 22, T 98.8F, SpO2 of 99% on room air. EKG showed AFib with RVR at 125 bpm. Chest x-ray showed no acute process. CT head showing no acute process. WBC count 11.4. Coagulation profile showing PT of 13.4, INR 1.3, and D-dimer at 1.97 (chronically elevated). BMP Na 130, K 3.4, Cl 94, bicarb of 21, anion gap 15, BUN of 30, Cr 1.81, with baseline Cr 1.9. Troponin less than 0.012. ProBNP 3970 which is significantly improved from previous BNP of 11,800. COVID PCR, Flu, and RSV were negative. Patient was admitted under our services secondary to intermittent chest pain and atrial fibrillation with consultation to cardiology. Troponins trended, less than 0.012, 0.012, and less than 0.012. Urinalysis was obtained and was abnormal showing positive for protein, ketones, and leukocytosis with 9 RBCs and 18 WBCs. However, patient did have urinary symptoms. Patient became hypotensive on 04/29. Was transferred to medical ICU. Started on norepinephrine. Continue to remain in atrial fibrillation with RVR. Was also started on Lasix drip. Echocardiogram showed slightly reduced LVEF of 40% with global hypokinesis, moderate aortic insufficiency. She had ARCADIO and cardioversion on 03/02, now converted to sinus rhythm. Lasix drip transitioned to IV push 03/03, then later transitioned to oral Bumex. Respiratory function worsen. CXR shows complete opacification of the right lung and pulmonary vascular congestion. Concerns for mucus plugging. Antibiotics escalated to Vancomycin and Cefepime. Will require vasopressors, currently blood pressure stable. Patient on and off with BiPAP, transitioned to high flow nasal cannula occasionally, however, oxygen requirements still high. She is back IV diuretics, remains on IV antibiotics. Bronchoscopy showed tracheobronchomalacia, extensive mucus plugging, therapeutic airway suctioning and bronchial lavage done. She is now on oral diuretics, remains on IV antibiotics, and IV steroids. Overall respiratory function improving. Now on nasal cannula 5 L. Patient would be okay with following palliative care outpatient. Subjective: Patient is seen and examined at bedside. Respiratory function improved. Pertinent positives and negatives as discussed above, a complete review of systems was performed and all other systems are negative. Vitals Signs Reviewed. General: nontoxic, no distress, appears at stated age, chronically ill-appearing Derm: warm, dry Head: atraumatic, normocephalic, symmetric Eyes: EOMI, no lid lag, anicteric sclera Mouth: no lip lesion, mucus membranes moist Cardiovascular: S1S2 reg, no murmur Lungs: Bilateral rhonchi, no accessory muscle use, supplemental oxygen Abdominal: soft, nontender to palpation, no guarding, no appreciable organomegaly Ext: no gross muscle atrophy, no edema, no contractures Neuro: CN II-XI grossly intact, no focal neuro deficits Psych: Alert, oriented, appropriate affect Data Reviewed Today: Pertinent Labs: WBC 19.1, hemoglobin 9.5, bicarb 35, creatinine 2.12 Imaging: Chest x-ray independently interpreted Bilateral patchy infiltrates, improved from yesterday Assessment and Plan: Patient is critically ill, medical ICU, prognosis guarded. Acute on chronic hypoxic respiratory failure, improving Sepsis secondary to bacterial pneumonia Acute COPD exacerbation History of interstitial pulmonary fibrosis -Pulmonology note reviewed, continue to wean oxygen, downgrade to medical floor -solumedrol 60mg IV q6h, monitor blood sugars and mental status -budesonide/formoterol BID -duoneb TID -Cefepime 1 g every 12 hours Cardiogenic shock, resolved Acute on chronic diastolic and systolic CHF, EF 40% Paroxysmal atrial fibrillation with RVR, s/p cardioversion, now in sinus -Off of vasopressors - lasix 40mg PO twice a day, monitor electrolytes and renal function - I/Os, daily weights - Amiodarone decreased to 100 mg daily, metoprolol 50mg BID - Eliquis 2.5mg BID -Continue midodrine -Cardiology note reviewed, continue current management, possibly switch to oral Lasix tomorrow Acute on chronic renal failure, worsening -Slightly worsened creatinine, IV Lasix decreased to oral Lasix -Repeat BMP tomorrow -Nephrology following History of CAD status post stent -Lipitor 20 mg PO QHS. Would benefit from ASA. Resolved: Hypokalemia, Hypomagnesemia Chronic: Hypothyroidism PT/OT DVT ppx: Eliquis Code status: Full code Anticipated discharge place: Pending clinical course Anticipated discharge time: Pending clinical course Objective - Vital Signs Vital signs: Vital Signs Temp 98.4 F 03/11/23 20:00 Pulse 68 03/12/23 09:29 Resp 16 03/12/23 09:00 BP 129/68 03/12/23 09:00 Pulse Ox 96 03/12/23 09:00 FiO2 10 03/11/23 07:00 Intake & Output 03/11/23 03/12/23 03/12/23 18:59 06:59 18:59 Intake Total 698 500 Output Total 1600 1700 150 Balance -902 -1200 -150 Weight 80 kg Intake: IV 90 50 Cefepime 1 gm In Sodium 50 50 Chloride 0.9% 50 ml @ 12. 5 mls/hr IVPB Q12HR [facility] Rx#:[id number] KVO 40 0 Oral 608 450 Output: Urine 1600 1700 150 Other: Voiding Method External Catheter External Catheter External Catheter - Labs CBC & Chem 7: 03/12/23 05:49 03/12/23 05:49 Labs: Abnormal Lab Results - Last 24 Hours (Table) 03/12/23 03/12/23 Range/Units 05:49 05:49 WBC 19.1 H (3.8-10.6) k/uL RBC 3.14 L (3.80-5.40) m/uL Hgb 9.5 L (11.4-16.0) gm/dL Hct 29.7 L (34.0-46.0) % RDW 16.5 H (11.5-15.5) % Neutrophils # 18.0 H (1.3-7.7) k/uL Lymphocytes # 0.6 L (1.0-4.8) k/uL Chloride 94 L (98-107) mmol/L Carbon Dioxide 35 H (22-30) mmol/L BUN 86 H (7-17) mg/dL Creatinine 2.12 H (0.52-1.04) mg/dL Glucose 171 H (74-99) mg/dL
[2023-03-12] MEDS: LIDOCAINE 4% PATCH TOPICAL SCH (12:12)
--- NOTE | 2023-03-12 12:18 | P.PN ---
Subjective Patient is seen for follow-up for chronic kidney disease and acute kidney injury. She is currently being diuresed for volume overload. Off of pressors Status post bronchoscopy yesterday with significant thick mucus noted. Patient had bronchoalveolar lavage and her oxygen requirement today has improved significantly. She is down to 4 L today Good urine output, 3.3 L for 24 hours Serum creatinine increased to 2.1 mg/dL today. Objective - Vital Signs Vital signs: Vital Signs Temp 98.4 F 03/11/23 20:00 Pulse 60 03/12/23 11:00 Resp 17 03/12/23 11:00 BP 107/65 03/12/23 11:00 Pulse Ox 95 03/12/23 11:00 FiO2 10 03/11/23 07:00 Intake & Output 03/11/23 03/12/23 03/12/23 18:59 06:59 18:59 Intake Total 698 500 237.5 Output Total 1600 1700 150 Balance -902 -1200 87.5 Weight 80 kg Intake: IV 90 50 Cefepime 1 gm In Sodium 50 50 Chloride 0.9% 50 ml @ 12. 5 mls/hr IVPB Q12HR [facility] Rx#:[id number] KVO 40 0 Intake, IV Titration 37.5 Amount Cefepime 1 gm In Sodium 37.5 Chloride 0.9% 50 ml @ 12. 5 mls/hr IVPB Q12HR [facility] Rx#:[id number] Oral 608 450 200 Output: Urine 1600 1700 150 Other: Voiding Method External Catheter External Catheter External Catheter - Exam Patient is comfortable, No acute distress Examination of the heart S1 and S2 Examination the lungs decreased breath sounds at the bases Abdomen is soft nontender Examination lower extremity shows no significant edema [employer] exam grossly intact - Labs CBC & Chem 7: 03/12/23 05:49 03/12/23 05:49 Labs: Abnormal Lab Results - Last 24 Hours (Table) 03/12/23 03/12/23 Range/Units 05:49 05:49 WBC 19.1 H (3.8-10.6) k/uL RBC 3.14 L (3.80-5.40) m/uL Hgb 9.5 L (11.4-16.0) gm/dL Hct 29.7 L (34.0-46.0) % RDW 16.5 H (11.5-15.5) % Neutrophils # 18.0 H (1.3-7.7) k/uL Lymphocytes # 0.6 L (1.0-4.8) k/uL Chloride 94 L (98-107) mmol/L Carbon Dioxide 35 H (22-30) mmol/L BUN 86 H (7-17) mg/dL Creatinine 2.12 H (0.52-1.04) mg/dL Glucose 171 H (74-99) mg/dL Assessment and Plan Assessment: 1. Chronic kidney disease stage IV with baseline creatinine 1.5 - 2 secondary to cardiorenal syndrome and nephrosclerosis. Fluctuation in renal function bas ed on volume status and diuresis. Atrophic kidneys noted on renal ultrasound done January 2023. Serum creatinine increased slightly over the last couple of days most likely secondary to diuresis. Lasix has been decreased. 2. A. fib with RVR maintained on amiodarone and Lopressor. Status post ca rdioversion and ARCADIO. 3. Hypotension status post levo fed Also on midodrine. 4. Hypervolemic hyponatremia. Stable. 5. Hypokalemia from diuresis. Replaced. Better. 6. Acute on chronic systolic CHF with ejection fraction of 40% with moderate aortic insufficiency. 7. History of coronary artery disease with cardiac stenting. 8. Volume overload. Improving with diuresis. 9. Hypomagnesemia from diuresis. Replaced. Better. 10. Right lung opacification. Possibly mucous plug. Pulmonology following. Status post bronchoscopy with significant bronchoalveolar lavage for thick mucus Plan: Agree with decreasing diuretics Continue midodrine and hold if systolic blood pressure more than 110 mmHg Repeat labs in a.m.
[2023-03-12] MEDS: ATORVASTATIN 20 MG TAB PO SCH (20:28)
[2023-03-12] MEDS: HYDROcodone/APAP 5-325MG 1 EACH TAB PO PRN (20:29)
[2023-03-12] MEDS: SERTRALINE 100 MG TAB PO SCH (20:29)
[2023-03-12] MEDS: CALCIUM CARBONATE 500 MG CHEWABLE PO PRN (21:32)
[2023-03-13] MEDS: methylPREDNISolone SOD SUCCI 125 MG/2 ML VIAL IV SCH ×2 (00:38→05:50)
[2023-03-13] MEDS: LEVOTHYROXINE 75 MCG TAB PO SCH (05:50)
[2023-03-13 06:24] LABS: Anisocytosis Slight; Basophils # (A) 0.1 k/uL (0-0.2); Basophils % (A) 0 %; Eosinophils % (A) 0 %; HCT 28.6 % (34.0-46.0); HGB 9.2 gm/dL (11.4-16.0); Lymphocytes # (A) 0.6 k/uL (1.0-4.8); Lymphocytes % (A) 3 %; MCH 30.3 pg (25.0-35.0); MCHC 32.2 g/dL (31.0-37.0); MCV 94.1 fL (80.0-100.0); Mean Platelet Volume 8.6; Monocytes # (A) 0.5 k/uL (0-1.0); Monocytes % (A) 3 %; Neutrophils # (A) 16.8 k/uL (1.3-7.7); Neutrophils % (A) 93 %; Platelet Count 248 k/uL (150-450); RBC 3.04 m/uL (3.80-5.40); RDW 16.8 % (11.5-15.5); WBC 18.1 k/uL (3.8-10.6)
[2023-03-13 06:57] LABS: African American GFR (CKD) 29 (>60 ml/min/1.73 sqM); Anion Gap 11 mmol/L; Blood Urea Nitrogen 98 mg/dL (7-17); Calcium 8.6 mg/dL (8.4-10.2); Carbon Dioxide 33 mmol/L (22-30); Chloride 94 mmol/L (98-107); Glucose 172 mg/dL (74-99); Magnesium 2.6 mg/dL (1.6-2.3); Non-African American GFR(CKD) 25 (>60 ml/min/1.73 sqM); Potassium 3.8 mmol/L (3.5-5.1); Sodium 138 mmol/L (137-145)
[2023-03-13] MEDS: BUDESONIDE 1 MG/2 ML NEBU INHALATION SCH ×2 (08:20→19:53)
[2023-03-13] MEDS: FORMOTEROL FUMARATE 20 MCG/2 ML NEBU INHALATION SCH ×2 (08:20→19:53)
[2023-03-13] MEDS: IPRATROPIUM-ALBUTEROL 3 ML NEB INHALATION SCH ×3 (08:20→19:53)
[2023-03-13] MEDS ORDERED: POTASSIUM CHLORIDE ER 20 MEQ TAB.ER PO STA (08:48)
--- NOTE | 2023-03-13 08:48 | P.PN ---
Subjective Patient is seen in follow-up for chronic kidney disease. Renal function stable. Nonoliguric. On oral Lasix. Denies chest pain or shortness of breath. Vital signs are stable. General: No acute distress. HEENT: Head exam is unremarkable. On nasal cannula. LUNGS: No audible rhonchi or wheezes. HEART: Rate and Rhythm are regular. ABDOMEN: Nontender. EXTREMITITES: No edema. Objective - Vital Signs Vital signs: Vital Signs Temp 98.6 F 03/13/23 04:00 Pulse 57 L 03/13/23 04:00 Resp 15 03/13/23 04:00 BP 120/66 03/13/23 04:00 Pulse Ox 98 03/13/23 04:00 FiO2 10 03/11/23 07:00 Intake & Output 03/12/23 03/13/23 03/13/23 18:59 06:59 18:59 Intake Total 237.5 190 Output Total 350 1350 Balance -112.5 -1160 Weight 81.8 kg Intake: IV 190 Cefepime 1 gm In Sodium 100 Chloride 0.9% 50 ml @ 12. 5 mls/hr IVPB Q12HR [facility] Rx#:[id number] KVO 90 Intake, IV Titration 37.5 Amount Cefepime 1 gm In Sodium 37.5 Chloride 0.9% 50 ml @ 12. 5 mls/hr IVPB Q12HR [facility] Rx#:[id number] Oral 200 Output: Urine 350 1350 Other: Voiding Method External Catheter External Catheter - Labs CBC & Chem 7: 03/13/23 05:44 03/13/23 05:44 Labs: Abnormal Lab Results - Last 24 Hours (Table) 03/13/23 03/13/23 Range/Units 05:44 05:44 WBC 18.1 H (3.8-10.6) k/uL RBC 3.04 L (3.80-5.40) m/uL Hgb 9.2 L (11.4-16.0) gm/dL Hct 28.6 L (34.0-46.0) % RDW 16.8 H (11.5-15.5) % Neutrophils # 16.8 H (1.3-7.7) k/uL Lymphocytes # 0.6 L (1.0-4.8) k/uL Chloride 94 L (98-107) mmol/L Carbon Dioxide 33 H (22-30) mmol/L BUN 98 H (7-17) mg/dL Creatinine 2.02 H (0.52-1.04) mg/dL Glucose 172 H (74-99) mg/dL Magnesium 2.6 H (1.6-2.3) mg/dL Assessment and Plan Plan: Assessment: 1. Chronic kidney disease stage IV with baseline creatinine near 2 secondary to cardiorenal syndrome and nephrosclerosis. Atrophic kidneys noted on renal ultrasound done January 2023. 2. A. fib with RVR maintained on amiodarone and Lopressor. Status post cardioversion and ARCADIO. 3. Hypotension maintained on Levophed. Also on midodrine. 4. Hypervolemic hyponatremia. Stable. 5. Hypokalemia from diuresis. Stable. 6. Acute on chronic systolic CHF with ejection fraction of 40% with moderate aortic insufficiency. 7. History of coronary artery disease with cardiac stenting. 8. Volume overload. Improving with diuresis. 9. Hypomagnesemia from diuresis. Replaced. Improved. Plan: Maintain oral Lasix. Maintain farxiga. Replace potassium. Maintain midodrine. Hold for systolic blood pressure greater than 110. Farxiga stopped due to hypotension. Avoid nephrotoxins. Continue to monitor renal function and urine output. Cortisol level not low.
--- NOTE | 2023-03-13 09:29 | P.PN ---
Subjective Progress Note Date: 03/13/23 PROGRESS NOTE The patient is 67-year-old female with known history of CAD, paroxysmal atrial fibrillation status post cardioversion, severe COPD who presented with worsening dyspnea. She continues to be on high flow oxygen, in sinus mechanism, feels better. She denies any chest discomfort, dizziness or palpitations. She had evidence of moderate cardiomyopathy. Hemodynamically she is stable, her urinary output has been good. There is no evidence of ventricular tachycardia. March 09: The patient feels better overall, she continues to be in sinus mechanism. Hemodynamically she is stable. She denies any chest discomfort or dizziness. She denies any nausea or vomiting. She has a prior history of COPD and her chest x-ray continues to show bilateral infiltrate. She had a known history of moderate cardiomyopathy. March 10: The patient became hypoxic during the night requiring BiPAP. She is in sinus mechanism with episodes of sinus bradycardia. There is occasional single PVCs but no evidence of atrial fibrillation. She is coughing but no significant sputum. She denies any chest discomfort, dizziness or palpitations. Her urinary output has been stable. She denies any nausea or vomiting. Her chest x-ray shows persistent infiltrate. March 11: The patient feels well this morning, she continues to have mild dyspnea but stable. She denies any chest discomfort, dizziness or palpitations. She continues to be in sinus mechanism with stable blood pressure. Her urinary output is good. She has no nausea or vomiting. March 12: The patient is feeling relatively well this morning she continues to be dyspneic and fatigued. She had bronchoscopy yesterday and removal of mucous plugging and secretions. She continues to be in sinus mechanism with sinus bradycardia. There is no evidence of recurrent atrial fibrillation. Her blood pressure has been stable. She is on no vasopressors. Her urinary output has been stable. Her chest x-ray continues to show bilateral infiltrate. She continues to be on IV Lasix. March 13: She is feeling well this morning, she denies any chest discomfort or dizziness. She is coughing but feels better overall. She denies any nausea or vomiting. She continues to be in sinus mechanism with stable blood pressure. She continues to have some wheezing. She is on oral diuretics. Medications: Amiodarone 100 mg daily, Lasix 40 mg by mouth twice a day, levothyroxine, metoprolol 50 twice a day, midodrine 10 mg 4 times a day, Eliquis 2.5 mg twice a day, Farxiga 10 mg daily, Neurontin 100 mg 3 times a day, Lipitor 20 mg daily, metoprolol 50 mg twice a day, Zoloft, vancomycin Solu-Medrol PHYSICAL EXAMINATION: Blood pressure 120/66 heart rate 57 LUNGS: Scattered rhonchi bilaterally with mild wheezes HEART: Regular rate and rhythm, S1, S2. No S3. Systolic ejection murmur ABDOMEN: Soft, nontender, no organomegaly EXTREMETIES: No edema LAB: Creatinine 2.02, BUN 98, potassium 3.8, hemoglobin 9.2 IMPRESSION: 1. Respiratory failure with CHF and possible pneumonia and exacerbation of COPD, improving status post bronchoscopy 2. History of CAD with prior stenting, no evidence of acute ischemic event 3. Atrial fibrillation remains in sinus mechanism, post cardioversion with sinus bradycardia 4. Chronic kidney disease 5. History of moderate cardiomyopathy PLAN: 1. Decreased oral diuretics 2. Follow renal functions 3. Increase physical activity 4. Incentive spirometry 5. Follow heart rate Objective - Vital Signs Vital signs: Vital Signs Temp 98.6 F 03/13/23 04:00 Pulse 57 L 03/13/23 04:00 Resp 15 03/13/23 04:00 BP 120/66 03/13/23 04:00 Pulse Ox 98 03/13/23 04:00 FiO2 10 03/11/23 07:00 Intake & Output 03/12/23 03/13/23 03/13/23 18:59 06:59 18:59 Intake Total 237.5 190 Output Total 350 1350 Balance -112.5 -1160 Weight 81.8 kg Intake: IV 190 Cefepime 1 gm In Sodium 100 Chloride 0.9% 50 ml @ 12. 5 mls/hr IVPB Q12HR [facility] Rx#:[id number] KVO 90 Intake, IV Titration 37.5 Amount Cefepime 1 gm In Sodium 37.5 Chloride 0.9% 50 ml @ 12. 5 mls/hr IVPB Q12HR [facility] Rx#:[id number] Oral 200 Output: Urine 350 1350 Other: Voiding Method External Catheter External Catheter - Labs CBC & Chem 7: 03/13/23 05:44 03/13/23 05:44 Labs: Abnormal Lab Results - Last 24 Hours (Table) 03/13/23 03/13/23 Range/Units 05:44 05:44 WBC 18.1 H (3.8-10.6) k/uL RBC 3.04 L (3.80-5.40) m/uL Hgb 9.2 L (11.4-16.0) gm/dL Hct 28.6 L (34.0-46.0) % RDW 16.8 H (11.5-15.5) % Neutrophils # 16.8 H (1.3-7.7) k/uL Lymphocytes # 0.6 L (1.0-4.8) k/uL Chloride 94 L (98-107) mmol/L Carbon Dioxide 33 H (22-30) mmol/L BUN 98 H (7-17) mg/dL Creatinine 2.02 H (0.52-1.04) mg/dL Glucose 172 H (74-99) mg/dL Magnesium 2.6 H (1.6-2.3) mg/dL
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
[2023-03-13] MEDS: LIDOCAINE 4% PATCH TOPICAL SCH (10:14)
[2023-03-13] MEDS: PANTOPRAZOLE 40 MG/10 ML VIAL IVP SCH (10:23)
[2023-03-13] MEDS: DAPAGLIFLOZIN PROPANEDIOL 10 MG TABLET PO SCH (10:23)
[2023-03-13] MEDS: GABAPENTIN 100 MG CAP PO SCH ×3 (10:24→20:30)
[2023-03-13] MEDS: AMIODARONE 100 MG TAB PO SCH (10:24)
[2023-03-13] MEDS: APIXABAN 2.5 MG TABLET PO SCH ×2 (10:24→20:30)
[2023-03-13] MEDS: MIDODRINE 5 MG TAB PO SCH ×4 (10:27→20:30)
[2023-03-13] MEDS: methylPREDNISolone SOD SUCCI 40 MG/ML 1 ML VIAL IV SCH ×2 (10:42→20:29)
--- NOTE | 2023-03-13 11:32 | P.PN ---
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 She presented to the emergency department with complaints of generalized weakness, intermittent chest pain, shortness of breath, and a headache. Patient was scheduled for cardiac ablation on 03/05/[address] Stockton. Vital signs showed BP 133/82, HR 118, RR 22, T 98.8F, SpO2 of 99% on room air. EKG showed AFib with RVR at 125 bpm. Chest x-ray showed no acute process. CT head showing no acute process. WBC count 11.4. Coagulation profile showing PT of 13.4, INR 1.3, and D-dimer at 1.97 (chronically elevated). BMP Na 130, K 3.4, Cl 94, bicarb of 21, anion gap 15, BUN of 30, Cr 1.81, with baseline Cr 1.9. Troponin less than 0.012. ProBNP 3970 which is significantly improved from previous BNP of 11,800. COVID PCR, Flu, and RSV were negative. Patient was admitted under our services secondary to intermittent chest pain and atrial fibrillation with consultation to cardiology. Troponins trended, less than 0.012, 0.012, and less than 0.012. Urinalysis was obtained and was abnormal showing positive for protein, ketones, and leukocytosis with 9 RBCs and 18 WBCs. However, patient did have urinary symptoms. Patient became hypotensive on 04/29. Was transferred to medical ICU. Started on norepinephrine. Continue to remain in atrial fibrillation with RVR. Was also started on Lasix drip. Echocardiogram showed slightly reduced LVEF of 40% with global hypokinesis, moderate aortic insufficiency. She had ARCADIO and cardioversion on 03/02, now converted to sinus rhythm. Lasix drip transitioned to IV push 03/03, then later transitioned to oral Bumex. Respiratory function worsen. CXR shows complete opacification of the right lung and pulmonary vascular congestion. Concerns for mucus plugging. Antibiotics escalated to Vancomycin and Cefepime. Will require vasopressors, currently blood pressure stable. Patient on and off with BiPAP, transitioned to high flow nasal cannula occasionally, however, oxygen requirements still high. She is back IV diuretics, remains on IV antibiotics. Bronchoscopy showed tracheobronchomalacia, extensive mucus plugging, therapeutic airway suctioning and bronchial lavage done. She is now on oral diuretics, and IV steroids. Continue antibiotic course. Overall respiratory function improving. Now on nasal cannula 3 L. Patient would be okay with following palliative care outpatient. Subjective: Patient is seen and examined at bedside. Respiratory function improved. Pertinent positives and negatives as discussed above, a complete review of systems was performed and all other systems are negative. Vitals Signs Reviewed. General: nontoxic, no distress, appears at stated age, chronically ill-appearing Derm: warm, dry Head: atraumatic, normocephalic, symmetric Eyes: EOMI, no lid lag, anicteric sclera Mouth: no lip lesion, mucus membranes moist Cardiovascular: S1S2 reg, no murmur Lungs: Bilateral rhonchi, no accessory muscle use, supplemental oxygen Abdominal: soft, nontender to palpation, no guarding, no appreciable organomegaly Ext: no gross muscle atrophy, no edema, no contractures Neuro: CN II-XI grossly intact, no focal neuro deficits Psych: Alert, oriented, appropriate affect Data Reviewed Today: Pertinent Labs: WBC 18.1, hemoglobin 9.2, bicarbonate 33, creatinine 2.02, magnesium 2.6 Imaging: No new imaging Assessment and Plan: Patient is critically ill, medical ICU, prognosis guarded. Acute on chronic hypoxic respiratory failure, improving Sepsis secondary to bacterial pneumonia Acute COPD exacerbation History of interstitial pulmonary fibrosis -Pulmonology note reviewed, continue to wean oxygen, downgrade to medical floor, Solu-Medrol decreased to 40 mg IV every 12 hours, monitor blood sugars and mental status -budesonide/formoterol BID -duoneb TID -Status post antibiotics Cardiogenic shock, resolved Acute on chronic diastolic and systolic CHF, EF 40% Paroxysmal atrial fibrillation with RVR, s/p cardioversion, now in sinus -Off of vasopressors - lasix 40mg PO daily, monitor electrolytes and renal function - I/Os, daily weights - Amiodarone 100 mg daily, metoprolol 50mg BID - Eliquis 2.5mg BID -Continue midodrine -Cardiology note reviewed, continue current management Acute on chronic renal failure, stable -Nephrology note reviewed, maintain oral diuretics -Repeat BMP tomorrow History of CAD status post stent -Lipitor 20 mg PO QHS. Would benefit from ASA. Resolved: Hypokalemia, Hypomagnesemia Chronic: Hypothyroidism PT/OT DVT ppx: Eliquis Code status: Full code Anticipated discharge place: Pending clinical course Anticipated discharge time: Pending clinical course Objective - Vital Signs Vital signs: Vital Signs Temp 98.6 F 03/13/23 04:00 Pulse 57 L 03/13/23 04:00 Resp 15 03/13/23 04:00 BP 120/66 03/13/23 04:00 Pulse Ox 98 03/13/23 04:00 FiO2 10 03/11/23 07:00 Intake & Output 03/12/23 03/13/23 03/13/23 18:59 06:59 18:59 Intake Total 237.5 190 Output Total 350 1350 Balance -112.5 -1160 Weight 81.8 kg Intake: IV 190 Cefepime 1 gm In Sodium 100 Chloride 0.9% 50 ml @ 12. 5 mls/hr IVPB Q12HR [facility] Rx#:[id number] KVO 90 Intake, IV Titration 37.5 Amount Cefepime 1 gm In Sodium 37.5 Chloride 0.9% 50 ml @ 12. 5 mls/hr IVPB Q12HR [facility] Rx#:[id number] Oral 200 Output: Urine 350 1350 Other: Voiding Method External Catheter External Catheter - Labs CBC & Chem 7: 03/13/23 05:44 03/13/23 05:44 Labs: Abnormal Lab Results - Last 24 Hours (Table) 03/13/23 03/13/23 Range/Units 05:44 05:44 WBC 18.1 H (3.8-10.6) k/uL RBC 3.04 L (3.80-5.40) m/uL Hgb 9.2 L (11.4-16.0) gm/dL Hct 28.6 L (34.0-46.0) % RDW 16.8 H (11.5-15.5) % Neutrophils # 16.8 H (1.3-7.7) k/uL Lymphocytes # 0.6 L (1.0-4.8) k/uL Chloride 94 L (98-107) mmol/L Carbon Dioxide 33 H (22-30) mmol/L BUN 98 H (7-17) mg/dL Creatinine 2.02 H (0.52-1.04) mg/dL Glucose 172 H (74-99) mg/dL Magnesium 2.6 H (1.6-2.3) mg/dL
[2023-03-13] MEDS: METOPROLOL TARTRATE 50 MG TAB PO SCH ×2 (12:35→20:30)
[2023-03-13] MEDS: HYDROcodone/APAP 5-325MG 1 EACH TAB PO PRN ×2 (15:04→20:30)
[2023-03-13] MEDS: ATORVASTATIN 20 MG TAB PO SCH (20:30)
[2023-03-13] MEDS: SERTRALINE 100 MG TAB PO SCH (20:30)
[2023-03-13] MEDS: CALCIUM CARBONATE 500 MG CHEWABLE PO PRN (21:41)
[2023-03-14] MEDS: LEVOTHYROXINE 75 MCG TAB PO SCH (06:17)
[2023-03-14] MEDS: FUROSEMIDE 40 MG TAB PO SCH ×2 (07:20→08:53)
[2023-03-14] MEDS: NOREPINEPHRINE 4 MG in SODIUM CHLORIDE 0.9% 250 ML IV SCH (07:20)
[2023-03-14 08:42] LABS: Anisocytosis Slight; Basophils # (A) 0.1 k/uL (0-0.2); Basophils % (A) 0 %; Eosinophils % (A) 0 %; HCT 28.5 % (34.0-46.0); Hypochromasia Slight; Lymphocytes # (A) 0.9 k/uL (1.0-4.8); Lymphocytes % (A) 4 %; MCH 30.1 pg (25.0-35.0); MCHC 31.6 g/dL (31.0-37.0); MCV 95.2 fL (80.0-100.0); Mean Platelet Volume 8.3; Monocytes # (A) 0.6 k/uL (0-1.0); Monocytes % (A) 3 %; Neutrophils # (A) 19.7 k/uL (1.3-7.7); Neutrophils % (A) 92 %; Platelet Count 227 k/uL (150-450); RDW 16.7 % (11.5-15.5); WBC 21.5 k/uL (3.8-10.6)
[2023-03-14] MEDS: methylPREDNISolone SOD SUCCI 40 MG/ML 1 ML VIAL IV SCH (08:52)
[2023-03-14] MEDS: PANTOPRAZOLE 40 MG/10 ML VIAL IVP SCH (08:53)
[2023-03-14] MEDS: HYDROcodone/APAP 5-325MG 1 EACH TAB PO PRN ×2 (08:53→20:12)
[2023-03-14] MEDS: APIXABAN 2.5 MG TABLET PO SCH ×2 (08:53→20:13)
[2023-03-14] MEDS: MIDODRINE 5 MG TAB PO SCH ×4 (08:53→20:12)
[2023-03-14] MEDS: GABAPENTIN 100 MG CAP PO SCH ×3 (08:53→20:13)
[2023-03-14 09:01] LABS: African American GFR (CKD) 24 (>60 ml/min/1.73 sqM); Anion Gap 11 mmol/L; Calcium 8.9 mg/dL (8.4-10.2); Carbon Dioxide 30 mmol/L (22-30); Chloride 95 mmol/L (98-107); Glucose 150 mg/dL (74-99); Non-African American GFR(CKD) 21 (>60 ml/min/1.73 sqM); Potassium 3.8 mmol/L (3.5-5.1); Sodium 136 mmol/L (137-145)
[2023-03-14 09:05] LABS: Blood Urea Nitrogen 107 mg/dL (7-17)
[2023-03-14] MEDS: BUDESONIDE 1 MG/2 ML NEBU INHALATION SCH ×2 (09:27→20:48)
[2023-03-14] MEDS: FORMOTEROL FUMARATE 20 MCG/2 ML NEBU INHALATION SCH ×2 (09:27→20:48)
[2023-03-14] MEDS: IPRATROPIUM-ALBUTEROL 3 ML NEB INHALATION SCH ×3 (09:28→20:48)
[2023-03-14] MEDS: AMIODARONE 100 MG TAB PO SCH (09:33)
[2023-03-14] MEDS: DAPAGLIFLOZIN PROPANEDIOL 10 MG TABLET PO SCH (09:33)
[2023-03-14] MEDS: METOPROLOL TARTRATE 50 MG TAB PO SCH ×2 (09:33→20:13)
[2023-03-14] MEDS ORDERED: POTASSIUM CHLORIDE ER 20 MEQ TAB.ER PO STA (11:30)
--- NOTE | 2023-03-14 11:33 | P.PN ---
Subjective Patient is seen in follow-up for chronic kidney disease. Renal function worse. Nonoliguric. On oral Lasix. Denies chest pain or shortness of breath. Family present at bedside. Vital signs are stable. General: No acute distress. HEENT: Head exam is unremarkable. On nasal cannula. LUNGS: No audible rhonchi or wheezes. HEART: Rate and Rhythm are regular. ABDOMEN: Nontender. EXTREMITITES: No edema. Objective - Vital Signs Vital signs: Vital Signs Temp 98 F 03/14/23 08:49 Pulse 60 03/14/23 09:47 Resp 20 03/14/23 08:49 BP 95/58 03/14/23 08:49 Pulse Ox 97 03/14/23 09:33 FiO2 10 03/11/23 07:00 Intake & Output 03/13/23 03/14/23 03/14/23 18:59 06:59 18:59 Intake Total 10 240 Output Total 800 400 500 Balance -800 -390 -260 Weight 81 kg Intake: IV 10 KVO 10 Oral 240 Output: Urine 800 400 500 Stool 0 0 Other: Voiding Method External Catheter External Catheter External Catheter # Voids 1 - Labs CBC & Chem 7: 03/14/23 07:59 03/14/23 07:59 Labs: Abnormal Lab Results - Last 24 Hours (Table) 03/14/23 03/14/23 Range/Units 07:59 07:59 WBC 21.5 H (3.8-10.6) k/uL RBC 3.00 L (3.80-5.40) m/uL Hgb 9.0 L (11.4-16.0) gm/dL Hct 28.5 L (34.0-46.0) % RDW 16.7 H (11.5-15.5) % Neutrophils # 19.7 H (1.3-7.7) k/uL Lymphocytes # 0.9 L (1.0-4.8) k/uL Sodium 136 L (137-145) mmol/L Chloride 95 L (98-107) mmol/L BUN 107 H* (7-17) mg/dL Creatinine 2.30 H (0.52-1.04) mg/dL Glucose 150 H (74-99) mg/dL Assessment and Plan Plan: Assessment: 1. Chronic kidney disease stage IV with baseline creatinine near 2 secondary to cardiorenal syndrome and nephrosclerosis. Atrophic kidneys noted on renal ultrasound done January 2023. Renal function worsened diuresis. BUN partially elevated from steroids. 2. A. fib with RVR maintained on amiodarone and Lopressor. Status post cardioversion and ARCADIO. 3. Hypotension s/p Levophed. On midodrine. 4. Hypervolemic hyponatremia. Stable. 5. Hypokalemia from diuresis. Stable. 6. Acute on chronic systolic CHF with ejection fraction of 40% with moderate aortic insufficiency. 7. History of coronary artery disease with cardiac stenting. 8. Volume overload. Improved with diuresis. 9. Hypomagnesemia from diuresis. Replaced. Improved. Plan: Maintain oral Lasix - decreased to qday by cardiology. On . Replace potassium. Maintain midodrine. Hold for systolic blood pressure greater than 110. Avoid nephrotoxins. Continue to monitor renal function and urine output. Cortisol level not low. Repeat CXR. Repeat UA. Discussed in detail with patient's daughter monitoring volume status closely upon discharge. Advised to maintain low salt diet and fluid restriction of less than 50 ounces per day. Advised to monitor her weight closely at home and notify physician if develops edema or gains more than 3-4 pounds in one week duration.
--- NOTE | 2023-03-14 11:37 | P.PN ---
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 She presented to the emergency department with complaints of generalized weakness, intermittent chest pain, shortness of breath, and a headache. Patient was scheduled for cardiac ablation on 03/05/[address] Stockton. Vital signs showed BP 133/82, HR 118, RR 22, T 98.8F, SpO2 of 99% on room air. EKG showed AFib with RVR at 125 bpm. Chest x-ray showed no acute process. CT head showing no acute process. WBC count 11.4. Coagulation profile showing PT of 13.4, INR 1.3, and D-dimer at 1.97 (chronically elevated). BMP Na 130, K 3.4, Cl 94, bicarb of 21, anion gap 15, BUN of 30, Cr 1.81, with baseline Cr 1.9. Troponin less than 0.012. ProBNP 3970 which is significantly improved from previous BNP of 11,800. COVID PCR, Flu, and RSV were negative. Patient was admitted under our services secondary to intermittent chest pain and atrial fibrillation with consultation to cardiology. Troponins trended, less than 0.012, 0.012, and less than 0.012. Urinalysis was obtained and was abnormal showing positive for protein, ketones, and leukocytosis with 9 RBCs and 18 WBCs. However, patient did have urinary symptoms. Patient became hypotensive on 04/29. Was transferred to medical ICU. Started on norepinephrine. Continue to remain in atrial fibrillation with RVR. Was also started on Lasix drip. Echocardiogram showed slightly reduced LVEF of 40% with global hypokinesis, moderate aortic insufficiency. She had ARCADIO and cardioversion on 03/02, now converted to sinus rhythm. Lasix drip transitioned to IV push 03/03, then later transitioned to oral Bumex. Respiratory function worsen. CXR shows complete opacification of the right lung and pulmonary vascular congestion. Concerns for mucus plugging. Antibiotics escalated to Vancomycin and Cefepime. Will require vasopressors, currently blood pressure stable. Patient on and off with BiPAP, transitioned to high flow nasal cannula occasionally, however, oxygen requirements still high. She is back IV diuretics, remains on IV antibiotics. Bronchoscopy showed tracheobronchomalacia, extensive mucus plugging, therapeutic airway suctioning and bronchial lavage done. She is now on oral diuretics, and IV steroids. Continue antibiotic course. Overall respiratory function improving. Now on nasal cannula 3 L. Patient would be okay with following palliative care outpatient. Patient is out of the ICU. Pending subacute rehab placement. Subjective: Patient is seen and examined at bedside. Respiratory function improved. Denies any new complaints Pertinent positives and negatives as discussed above, a complete review of systems was performed and all other systems are negative. Vitals Signs Reviewed. General: nontoxic, no distress, appears at stated age, chronically ill-appearing Derm: warm, dry Head: atraumatic, normocephalic, symmetric Eyes: EOMI, no lid lag, anicteric sclera Mouth: no lip lesion, mucus membranes moist Cardiovascular: S1S2 reg, no murmur Lungs: Bilateral rhonchi, no accessory muscle use, supplemental oxygen Abdominal: soft, nontender to palpation, no guarding, no appreciable organomegaly Ext: no gross muscle atrophy, no edema, no contractures Neuro: CN II-XI grossly intact, no focal neuro deficits Psych: Alert, oriented, appropriate affect Data Reviewed Today: Pertinent Labs: WBC 21.5, hemoglobin 9, BUN 107, creatinine 2.3 Imaging: No new imaging Assessment and Plan: Patient remains critically ill, prognosis guarded. Acute on chronic hypoxic respiratory failure, improving Sepsis secondary to bacterial pneumonia, resolved Acute COPD exacerbation History of interstitial pulmonary fibrosis -Pulmonology following, continue to wean oxygen, on Solu-Medrol decreased to 40 mg IV every 12 hours, monitor blood sugars and mental status, consider changing to oral steroids. -budesonide/formoterol BID -duoneb TID -Status post antibiotics Cardiogenic shock, resolved Acute on chronic diastolic and systolic CHF, EF 40% Paroxysmal atrial fibrillation with RVR, s/p cardioversion, now in sinus -Off of vasopressors - lasix 40mg PO daily, monitor electrolytes and renal function - I/Os, daily weights - Amiodarone 100 mg daily, metoprolol 50mg BID - Eliquis 2.5mg BID -Continue midodrine -Cardiology following, also on farxiga Acute on chronic renal failure, slightly worsening -Nephrology note reviewed, repeat UA and chest x-ray -Needs strict I's and O's -Repeat BMP tomorrow History of CAD status post stent -Lipitor 20 mg PO QHS. Would benefit from ASA. Resolved: Hypokalemia, Hypomagnesemia Chronic: Hypothyroidism PT/OT DVT ppx: Eliquis Code status: Full code Anticipated discharge place: [facility] Anticipated discharge time: Pending clinical course Objective - Vital Signs Vital signs: Vital Signs Temp 98 F 03/14/23 08:49 Pulse 60 03/14/23 09:47 Resp 20 03/14/23 08:49 BP 95/58 03/14/23 08:49 Pulse Ox 97 03/14/23 09:33 FiO2 10 03/11/23 07:00 Intake & Output 03/13/23 03/14/23 03/14/23 18:59 06:59 18:59 Intake Total 10 240 Output Total 800 400 500 Balance -800 -390 -260 Weight 81 kg Intake: IV 10 KVO 10 Oral 240 Output: Urine 800 400 500 Stool 0 0 Other: Voiding Method External Catheter External Catheter External Catheter # Voids 1 - Labs CBC & Chem 7: 03/14/23 07:59 03/14/23 07:59 Labs: Abnormal Lab Results - Last 24 Hours (Table) 03/14/23 03/14/23 Range/Units 07:59 07:59 WBC 21.5 H (3.8-10.6) k/uL RBC 3.00 L (3.80-5.40) m/uL Hgb 9.0 L (11.4-16.0) gm/dL Hct 28.5 L (34.0-46.0) % RDW 16.7 H (11.5-15.5) % Neutrophils # 19.7 H (1.3-7.7) k/uL Lymphocytes # 0.9 L (1.0-4.8) k/uL Sodium 136 L (137-145) mmol/L Chloride 95 L (98-107) mmol/L BUN 107 H* (7-17) mg/dL Creatinine 2.30 H (0.52-1.04) mg/dL Glucose 150 H (74-99) mg/dL
[2023-03-14] MEDS: LIDOCAINE 4% PATCH TOPICAL SCH (11:46)
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
--- NOTE | 2023-03-14 12:28 | XR ---
EXAMINATION TYPE: XR chest 1V DATE OF EXAM: 03/14/2023 COMPARISON: 03/12/2023 HISTORY: 67-year-old female shortness of breath TECHNIQUE: Single frontal view of the chest is obtained. FINDINGS: The heart is moderately enlarged. Diffuse interstitial and hazy airspace opacities show sl ight progression. No sizable pleural effusion. IMPRESSION: Moderate cardiomegaly and worsening diffuse interstitial and hazy opacities throughout th e bilateral lungs.
[2023-03-14] MEDS: predniSONE 20 MG TAB PO SCH (13:45)
--- NOTE | 2023-03-14 14:38 | P.PN ---
Subjective Progress Note Date: 03/14/23 PROGRESS NOTE The patient is 67-year-old female with known history of CAD, paroxysmal atrial fibrillation status post cardioversion, severe COPD who presented with worsening dyspnea. She continues to be on high flow oxygen, in sinus mechanism, feels better. She denies any chest discomfort, dizziness or palpitations. She had evidence of moderate cardiomyopathy. Hemodynamically she is stable, her urinary output has been good. There is no evidence of ventricular tachycardia. March 09: The patient feels better overall, she continues to be in sinus mechanism. Hemodynamically she is stable. She denies any chest discomfort or dizziness. She denies any nausea or vomiting. She has a prior history of COPD and her chest x-ray continues to show bilateral infiltrate. She had a known history of moderate cardiomyopathy. March 10: The patient became hypoxic during the night requiring BiPAP. She is in sinus mechanism with episodes of sinus bradycardia. There is occasional single PVCs but no evidence of atrial fibrillation. She is coughing but no significant sputum. She denies any chest discomfort, dizziness or palpitations. Her urinary output has been stable. She denies any nausea or vomiting. Her chest x-ray shows persistent infiltrate. March 11: The patient feels well this morning, she continues to have mild dyspnea but stable. She denies any chest discomfort, dizziness or palpitations. She continues to be in sinus mechanism with stable blood pressure. Her urinary output is good. She has no nausea or vomiting. March 12: The patient is feeling relatively well this morning she continues to be dyspneic and fatigued. She had bronchoscopy yesterday and removal of mucous plugging and secretions. She continues to be in sinus mechanism with sinus bradycardia. There is no evidence of recurrent atrial fibrillation. Her blood pressure has been stable. She is on no vasopressors. Her urinary output has been stable. Her chest x-ray continues to show bilateral infiltrate. She continues to be on IV Lasix. March 13: She is feeling well this morning, she denies any chest discomfort or dizziness. She is coughing but feels better overall. She denies any nausea or vomiting. She continues to be in sinus mechanism with stable blood pressure. She continues to have some wheezing. She is on oral diuretics. March 14: The patient is feeling better, her breathing is better. She denies any chest discomfort, dizziness or palpitations. She continues to be in sinus mechanism. She appears to be stronger. She has no nausea or vomiting. Medications: Amiodarone 100 mg daily, Lasix 40 mg by mouth once a day, levothyroxine, metoprolol 50 twice a day, midodrine 10 mg 4 times a day, Eliquis 2.5 mg twice a day, Farxiga 10 mg daily, Neurontin 100 mg 3 times a day, Lipitor 20 mg daily, metoprolol 50 mg twice a day, Zoloft, vancomycin Solu-Medrol PHYSICAL EXAMINATION: Blood pressure 120/66 heart rate 57 LUNGS: Scattered rhonchi bilaterally HEART: Regular rate and rhythm, S1, S2. No S3. Systolic ejection murmur ABDOMEN: Soft, nontender, no organomegaly EXTREMETIES: No edema LAB: Creatinine 2.3, BUN 107, potassium 3.8, hemoglobin 9.0 IMPRESSION: 1. Respiratory failure with CHF and possible pneumonia and exacerbation of COPD, improving status post bronchoscopy 2. History of CAD with prior stenting, no evidence of acute ischemic event 3. Atrial fibrillation remains in sinus mechanism, post cardioversion with sinus bradycardia 4. Chronic kidney disease, worsening 5. History of moderate cardiomyopathy PLAN: 1. Continue present dose of diuretics 2. Follow renal functions 3. Increase physical activity 4. Incentive spirometry 5. Follow heart rate Objective - Vital Signs Vital signs: Vital Signs Temp 98.4 F 03/14/23 11:38 Pulse 60 03/14/23 11:38 Resp 19 03/14/23 11:38 BP 89/55 03/14/23 11:38 Pulse Ox 95 03/14/23 11:38 FiO2 10 03/11/23 07:00 Intake & Output 03/13/23 03/14/23 03/14/23 18:59 06:59 18:59 Intake Total 10 360 Output Total 800 400 850 Balance -800 -390 -490 Weight 81 kg Intake: IV 10 KVO 10 Oral 360 Output: Urine 800 400 850 Stool 0 0 Other: Voiding Method External Catheter External Catheter External Catheter # Voids 1 - Labs CBC & Chem 7: 03/14/23 07:59 03/14/23 07:59 Labs: Abnormal Lab Results - Last 24 Hours (Table) 03/14/23 03/14/23 Range/Units 07:59 07:59 WBC 21.5 H (3.8-10.6) k/uL RBC 3.00 L (3.80-5.40) m/uL Hgb 9.0 L (11.4-16.0) gm/dL Hct 28.5 L (34.0-46.0) % RDW 16.7 H (11.5-15.5) % Neutrophils # 19.7 H (1.3-7.7) k/uL Lymphocytes # 0.9 L (1.0-4.8) k/uL Sodium 136 L (137-145) mmol/L Chloride 95 L (98-107) mmol/L BUN 107 H* (7-17) mg/dL Creatinine 2.30 H (0.52-1.04) mg/dL Glucose 150 H (74-99) mg/dL
[2023-03-14 15:21] LABS: Appearance,Urine Cloudy (Clear); Bilirubin,Urine Negative (Negative); Blood,Urine Large (Negative); Color,Urine Light Red; Glucose,Urine (UA) 2+ (Negative); Ketones,Urine Negative (Negative); Leukocyte Esterase,Urine Small (Negative); Nitrite,Urine Negative (Negative); PH, Urine 6.5 (5.0-8.0); Protein,Urine 1+ (Negative); Urobilinogen,Urine <2.0 mg/dL (<2.0)
[2023-03-14 15:28] LABS: Mucus,Urine Rare /hpf; RBC,Urine 157 /hpf (0-5); Squamous Epithelial Cell,Urine <1 /hpf (0-4); WBC,Urine 38 /hpf (0-5)
[2023-03-14] MEDS: ATORVASTATIN 20 MG TAB PO SCH (20:12)
[2023-03-14] MEDS: SERTRALINE 100 MG TAB PO SCH (20:13)
[2023-03-14 23:44] LABS: % Iron Saturation 43.63 (12.00-45.00)
[2023-03-15] MEDS: LEVOTHYROXINE 75 MCG TAB PO SCH (06:01)
[2023-03-15 07:01] LABS: Anisocytosis Slight; Basophils # (A) 0.1 k/uL (0-0.2); Basophils % (A) 0 %; Eosinophils # (A) 0.1 k/uL (0-0.7); Eosinophils % (A) 0 %; HCT 27.4 % (34.0-46.0); HGB 8.9 gm/dL (11.4-16.0); Hypochromasia Slight; Lymphocytes # (A) 0.6 k/uL (1.0-4.8); Lymphocytes % (A) 3 %; MCH 30.7 pg (25.0-35.0); MCHC 32.6 g/dL (31.0-37.0); MCV 94.3 fL (80.0-100.0); Mean Platelet Volume 8.3; Monocytes # (A) 0.5 k/uL (0-1.0); Monocytes % (A) 2 %; Neutrophils # (A) 22.2 k/uL (1.3-7.7); Neutrophils % (A) 94 %; Platelet Count 228 k/uL (150-450); RBC 2.91 m/uL (3.80-5.40); RDW 16.9 % (11.5-15.5); WBC 23.6 k/uL (3.8-10.6)
[2023-03-15 07:43] LABS: African American GFR (CKD) 23 (>60 ml/min/1.73 sqM); Anion Gap 10 mmol/L; Calcium 8.6 mg/dL (8.4-10.2); Carbon Dioxide 31 mmol/L (22-30); Chloride 96 mmol/L (98-107); Glucose 144 mg/dL (74-99); Magnesium 2.7 mg/dL (1.6-2.3); Non-African American GFR(CKD) 20 (>60 ml/min/1.73 sqM); Potassium 4.4 mmol/L (3.5-5.1); Sodium 137 mmol/L (137-145)
[2023-03-15] MEDS: FORMOTEROL FUMARATE 20 MCG/2 ML NEBU INHALATION SCH ×2 (07:43→21:06)
[2023-03-15] MEDS: BUDESONIDE 1 MG/2 ML NEBU INHALATION SCH ×2 (07:43→21:06)
[2023-03-15] MEDS: IPRATROPIUM-ALBUTEROL 3 ML NEB INHALATION SCH ×3 (07:44→21:06)
[2023-03-15 08:15] LABS: Blood Urea Nitrogen 106 mg/dL (7-17)
[2023-03-15] MEDS: APIXABAN 2.5 MG TABLET PO SCH ×2 (09:03→19:51)
[2023-03-15] MEDS: GABAPENTIN 100 MG CAP PO SCH ×3 (09:03→19:51)
[2023-03-15] MEDS: METOPROLOL TARTRATE 50 MG TAB PO SCH ×2 (09:03→19:51)
[2023-03-15] MEDS: FUROSEMIDE 40 MG TAB PO SCH (09:03)
[2023-03-15] MEDS: DAPAGLIFLOZIN PROPANEDIOL 10 MG TABLET PO SCH (09:03)
[2023-03-15] MEDS: MIDODRINE 5 MG TAB PO SCH ×3 (09:03→16:37)
[2023-03-15] MEDS: AMIODARONE 100 MG TAB PO SCH (09:03)
[2023-03-15] MEDS: predniSONE 20 MG TAB PO SCH (09:03)
[2023-03-15] MEDS: PANTOPRAZOLE 40 MG/10 ML VIAL IVP SCH (09:04)
[2023-03-15] MEDS: LIDOCAINE 4% PATCH TOPICAL SCH (09:54)
--- NOTE | 2023-03-15 10:23 | P.PN ---
Subjective Patient is seen in follow-up for chronic kidney disease. Renal function slightly worse. Nonoliguric. On oral Lasix. Denies chest pain or shortness of breath. Family present at bedside. Vital signs are stable. General: No acute distress. HEENT: Head exam is unremarkable. On nasal cannula. LUNGS: No audible rhonchi or wheezes. HEART: Rate and Rhythm are regular. ABDOMEN: Nontender. EXTREMITITES: No edema. Objective - Vital Signs Vital signs: Vital Signs Temp 97.7 F 03/15/23 08:57 Pulse 58 L 03/15/23 08:57 Resp 17 03/15/23 08:57 BP 102/66 03/15/23 08:57 Pulse Ox 95 03/15/23 08:57 FiO2 10 03/11/23 07:00 Intake & Output 03/14/23 03/15/23 03/15/23 18:59 06:59 18:59 Intake Total 360 Output Total 1400 450 Balance -1040 -450 Intake: Oral 360 Output: Urine 1400 450 Stool 0 Other: Voiding Method External Catheter External Catheter External Catheter # Voids 2 1 # Bowel Movements 1 - Labs CBC & Chem 7: 03/15/23 06:30 03/15/23 06:30 Labs: Abnormal Lab Results - Last 24 Hours (Table) 03/14/23 03/14/23 03/15/23 Range/Units 07:59 14:54 06:30 WBC 23.6 H (3.8-10.6) k/uL RBC 2.91 L (3.80-5.40) m/uL Hgb 8.9 L (11.4-16.0) gm/dL Hct 27.4 L (34.0-46.0) % RDW 16.9 H (11.5-15.5) % Neutrophils # 22.2 H (1.3-7.7) k/uL Lymphocytes # 0.6 L (1.0-4.8) k/uL Chloride (98-107) mmol/L Carbon Dioxide (22-30) mmol/L BUN (7-17) mg/dL Creatinine (0.52-1.04) mg/dL Glucose (74-99) mg/dL Magnesium (1.6-2.3) mg/dL Ferritin 600.0 H (10.0-291.0) ng/mL Urine Appearance Cloudy H (Clear) Urine Protein 1+ H (Negative) Urine Glucose (UA) 2+ H (Negative) Urine Blood Large H (Negative) Ur Leukocyte Esterase Small H (Negative) Urine RBC 157 H (0-5) /hpf Urine WBC 38 H (0-5) /hpf Urine Mucus Rare H (None) /hpf 03/15/23 Range/Units 06:30 WBC (3.8-10.6) k/uL RBC (3.80-5.40) m/uL Hgb (11.4-16.0) gm/dL Hct (34.0-46.0) % RDW (11.5-15.5) % Neutrophils # (1.3-7.7) k/uL Lymphocytes # (1.0-4.8) k/uL Chloride 96 L (98-107) mmol/L Carbon Dioxide 31 H (22-30) mmol/L BUN 106 H* (7-17) mg/dL Creatinine 2.45 H (0.52-1.04) mg/dL Glucose 144 H (74-99) mg/dL Magnesium 2.7 H (1.6-2.3) mg/dL Ferritin (10.0-291.0) ng/mL Urine Appearance (Clear) Urine Protein (Negative) Urine Glucose (UA) (Negative) Urine Blood (Negative) Ur Leukocyte Esterase (Negative) Urine RBC (0-5) /hpf Urine WBC (0-5) /hpf Urine Mucus (None) /hpf Assessment and Plan Plan: Assessment: 1. Chronic kidney disease stage IV with baseline creatinine near 2 secondary to cardiorenal syndrome and nephrosclerosis. Atrophic kidneys noted on renal ultrasound done January 2023. Renal function worsened from diuresis. BUN partially elevated from steroids. Creatinine 2.45 today. 2. A. fib with RVR maintained on amiodarone and Lopressor. Status post cardioversion and ARCADIO. 3. Hypotension s/p Levophed. On midodrine. 4. Hypervolemic hyponatremia. Stable. 5. Hypokalemia from diuresis. Stable. Replaced. Better. 6. Acute on chronic systolic CHF with ejection fraction of 40% with moderate aortic insufficiency. 7. History of coronary artery disease with cardiac stenting. 8. Volume overload. Improved with diuresis. 9. Hypomagnesemia from diuresis. Replaced. Improved. 10. Anemia of chronic kidney disease. Iron replete. Plan: Maintain oral Lasix. On xiga. Maintain midodrine. Hold for systolic blood pressure greater than 110. Avoid nephrotoxins. Continue to monitor renal function and urine output. Cortisol level not low. Chest x-ray done 03/14/2023 didn't show pleural effusions. Follow-up cultures. Add Aranesp Discussed in detail with patient's daughter monitoring volume status closely upon discharge. Advised to maintain low salt diet and fluid restriction of less than 50 ounces per day. Advised to monitor her weight closely at home and notify physician if develops edema or gains more than 3-4 pounds in one week duration. CODE STATUS was discussed with the patient and her . Patient wishes to be full code.
[2023-03-15] MEDS ORDERED: DARBEPOETIN ALFA 40 MCG/0.4 ML SYRINGE SQ SCH (10:30)
[2023-03-15] MEDS ORDERED: FUROSEMIDE 10 MG/ML 4 ML VIAL IV STA (11:02)
--- NOTE | 2023-03-15 13:20 | P.PN ---
Subjective HISTORY OF PRESENT ILLNESS: The patient is 67-year-old female with known history of CAD, paroxysmal atrial fibrillation status post cardioversion, severe COPD who presented with worsening dyspnea. She continues to be on high flow oxygen, in sinus mechanism, feels better. She denies any chest discomfort, dizziness or palpitations. She had evidence of moderate cardiomyopathy. Hemodynamically she is stable, her urinary output has been good. There is no evidence of ventricular tachycardia. March 09: The patient feels better overall, she continues to be in sinus mechanism. Hemodynamically she is stable. She denies any chest discomfort or dizziness. She denies any nausea or vomiting. She has a prior history of COPD and her chest x-ray continues to show bilateral infiltrate. She had a known history of moderate cardiomyopathy. March 10: The patient became hypoxic during the night requiring BiPAP. She is in sinus mechanism with episodes of sinus bradycardia. There is occasional single PVCs but no evidence of atrial fibrillation. She is coughing but no significant sputum. She denies any chest discomfort, dizziness or palpitations. Her urinary output has been stable. She denies any nausea or vomiting. Her chest x-ray shows persistent infiltrate. March 11: The patient feels well this morning, she continues to have mild dyspnea but stable. She denies any chest discomfort, dizziness or palpitations. She continues to be in sinus mechanism with stable blood pressure. Her urinary output is good. She has no nausea or vomiting. March 12: The patient is feeling relatively well this morning she continues to be dyspneic and fatigued. She had bronchoscopy yesterday and removal of mucous plugging and secretions. She continues to be in sinus mechanism with sinus bradycardia. There is no evidence of recurrent atrial fibrillation. Her blood pressure has been stable. She is on no vasopressors. Her urinary output has been stable. Her chest x-ray continues to show bilateral infiltrate. She continues to be on IV Lasix. March 13: She is feeling well this morning, she denies any chest discomfort or dizziness. She is coughing but feels better overall. She denies any nausea or vomiting. She continues to be in sinus mechanism with stable blood pressure. She continues to have some wheezing. She is on oral diuretics. March 14: The patient is feeling better, her breathing is better. She denies any chest discomfort, dizziness or palpitations. She continues to be in sinus mechanism. She appears to be stronger. She has no nausea or vomiting. 03/15/2023 Patient examined this morning at the bedside. Patient denies chest pain or pressure. She continues to report shortness of breath but states it is slightly better compared to yesterday. She remains on supplemental oxygen maintaining oxygen saturation greater than 92%.. She was given a one-time dose of IV Lasix today per pulmonary. Creatinine today 2.45. Blood pressure is stable. Tele metry reveals sinus mechanism. PHYSICAL EXAM: VITAL SIGNS: Reviewed. GENERAL: Well-developed in no acute distress. NECK: Supple. No JVD or thyromegaly LUNGS: Respirations even and unlabored. Lungs with bilateral rhonchi noted. HEART: Regular rate and rhythm. S1 and S2 heard. Systolic murmur noted EXTREMITIES: Normal range of motion. No clubbing or cyanosis. Peripheral p ulses intact. No lower extremity edema ASSESSMENT: Acute hypoxic respiratory failure secondary to combination of CHF, possible pneumonia, and exacerbation of COPD Status post bronchoscopy History of coronary artery disease with previous stenting Paroxysmal atrial fibrillation, currently maintaining sinus mechanism Status post cardioversion with sinus bradycardia Chronic kidney disease Ischemic cardiomyopathy, ejection fraction 40% Valvular heart disease including moderate AI, mild , and mild TR PLAN: Continue current cardiac medications Patient received a one-time dose of IV Lasix per pulmonary this morning Continue to monitor kidney function Will consider right heart catheterization (with Dr. Stockton) pending patient's course Further recommendations pending patient's course Nurse practitioner note has been reviewed by physician. Signing provider agrees with the documented findings, assessment, and plan of care. Objective - Vital Signs Vital signs: Vital Signs Temp 97.9 F 03/15/23 04:00 Pulse 56 L 03/15/23 04:00 Resp 18 03/15/23 04:00 BP 112/61 03/15/23 04:00 Pulse Ox 98 03/15/23 04:00 FiO2 10 03/11/23 07:00 Intake & Output 03/14/23 03/15/23 03/15/23 18:59 06:59 18:59 Intake Total 360 Output Total 1400 450 Balance -1040 -450 Intake: Oral 360 Output: Urine 1400 450 Stool 0 Other: Voiding Method External Catheter External Catheter # Voids 2 - Labs CBC & Chem 7: 03/15/23 06:30 03/15/23 06:30 Labs: Abnormal Lab Results - Last 24 Hours (Table) 03/14/23 03/14/23 03/14/23 Range/Units 07:59 07:59 14:54 WBC (3.8-10.6) k/uL RBC (3.80-5.40) m/uL Hgb (11.4-16.0) gm/dL Hct (34.0-46.0) % RDW (11.5-15.5) % Neutrophils # (1.3-7.7) k/uL Lymphocytes # (1.0-4.8) k/uL Sodium 136 L (137-145) mmol/L Chloride 95 L (98-107) mmol/L Carbon Dioxide (22-30) mmol/L BUN 107 H* (7-17) mg/dL Creatinine 2.30 H (0.52-1.04) mg/dL Glucose 150 H (74-99) mg/dL Magnesium (1.6-2.3) mg/dL Ferritin 600.0 H (10.0-291.0) ng/mL Urine Appearance Cloudy H (Clear) Urine Protein 1+ H (Negative) Urine Glucose (UA) 2+ H (Negative) Urine Blood Large H (Negative) Ur Leukocyte Esterase Small H (Negative) Urine RBC 157 H (0-5) /hpf Urine WBC 38 H (0-5) /hpf Urine Mucus Rare H (None) /hpf 03/15/23 03/15/23 Range/Units 06:30 06:30 WBC 23.6 H (3.8-10.6) k/uL RBC 2.91 L (3.80-5.40) m/uL Hgb 8.9 L (11.4-16.0) gm/dL Hct 27.4 L (34.0-46.0) % RDW 16.9 H (11.5-15.5) % Neutrophils # 22.2 H (1.3-7.7) k/uL Lymphocytes # 0.6 L (1.0-4.8) k/uL Sodium (137-145) mmol/L Chloride 96 L (98-107) mmol/L Carbon Dioxide 31 H (22-30) mmol/L BUN 106 H* (7-17) mg/dL Creatinine 2.45 H (0.52-1.04) mg/dL Glucose 144 H (74-99) mg/dL Magnesium 2.7 H (1.6-2.3) mg/dL Ferritin (10.0-291.0) ng/mL Urine Appearance (Clear) Urine Protein (Negative) Urine Glucose (UA) (Negative) Urine Blood (Negative) Ur Leukocyte Esterase (Negative) Urine RBC (0-5) /hpf Urine WBC (0-5) /hpf Urine Mucus (None) /hpf
--- NOTE | 2023-03-15 15:10 | P.PN ---
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 She presented to the emergency department with complaints of generalized weakness, intermittent chest pain, shortness of breath, and a headache. Patient was scheduled for cardiac ablation on 03/05/[address] Stockton. Vital signs showed BP 133/82, HR 118, RR 22, T 98.8F, SpO2 of 99% on room air. EKG showed AFib with RVR at 125 bpm. Chest x-ray showed no acute process. CT head showing no acute process. WBC count 11.4. Coagulation profile showing PT of 13.4, INR 1.3, and D-dimer at 1.97 (chr onically elevated). BMP Na 130, K 3.4, Cl 94, bicarb of 21, anion gap 15, BUN of 30, Cr 1.81, with baseline Cr 1.9. Troponin less than 0.012. ProBNP 3970 which is significantly improved from previous BNP of 11,800. COVID PCR, Flu, and RSV were negative. Patient was admitted under our services secondary to intermittent chest pain and atrial fibrillation with consultation to cardiology. Troponins trended, less than 0.012, 0.012, and less than 0.012. Urinalysis was obtained and was abnormal showing positive for protein, ketones, and leukocytosis with 9 RBCs and 18 WBCs. However, patient did have urinary symptoms. Patient became hypotensive on 02/27. Was transferred to medical ICU. Started on norepinephrine. Continue to remain in atrial fibrillation with RVR. Was also started on Lasix drip. Echocardiogram showed slightly reduced LVEF of 40% with global hypokinesis, moderate aortic insufficiency. She had ARCADIO and cardioversion on 03/02, now converted to sinus rhythm. Lasix drip transitioned to IV push 03/03, then later transitioned to oral Bumex. Respiratory function worsen. CXR shows complete opacification of the right lung and pulmonary vascular congestion. Concerns for mucus plugging. Antibiotics escalated to Vancomycin and Cefepime. Will require vasopressors, currently blood pressure stable. Patient on and off with BiPAP, transitioned to high flow nasal cannula occasionally, however, oxygen requirements still high. She is back IV diuretics, remains on IV antibiotics. Bronchoscopy showed tracheobronchomalacia, extensive mucus plugging, therapeutic airway suctioning and bronchial lavage done. She is now on oral diuretics, and IV steroids. Continue antibiotic course. Overall respiratory function improving. Now on nasal cannula 3 L. Patient would be okay with following palliative care outpatient. Patient is out of the ICU. Pending subacute rehab placement. Physical exam: Vital signs reviewed and stable. General: Nontoxic, no distress and appears stated age. Derm: Skin warm and dry, normal coloration for ethnicity. Head: Atraumatic, normocephalic and symmetric. Eyes: EOMs intact, no lid lag, and anicteric sclera Mouth: no lip lesions, mucus membranes moist Cardiovascular: regular rate and rhythm with normal S1S2, no murmur, positive posterior tibial pulses bilaterally, and cap refill < 2 seconds. Lungs: Bilateral rhonchi, no accessory muscle use, supplemental oxygen Abdominal: soft, nontender to palpation, no guarding, no appreciable organomegaly Ext: ROM intact. No gross muscle atrophy, no edema, no contractures Neuro: Speech clear, face symmetrical and CN II-XII grossly intact with no noted focal neuro deficits Psych: Alert and oriented to person, place, time, and situation. Appropriate and pleasant affect. Assessment and Plan of Care: Acute on chronic hypoxic respiratory failure, improved back close to baseline re spiratory status. Sepsis secondary to bacterial pneumonia, resolved. Acute COPD exacerbation History of interstitial pulmonary fibrosis Leukocytosis, believed to be reactive secondary to extended course of vasopressors and IV steroids -Leukocytosis is believed to be reactive secondary to extended course of vasopressors and IV steroids. Patient now off of vasopressors and has been transitioned to oral steroids. We will monitor for improvement. -Pulmonology following, discussed plan of care with pulmonary MACHINE CHAIN MAKER. -Patient to continue prednisone 40 mg daily and plan for discharge to retirement facility on prednisone taper. -Continue budesonide/formoterol 2 puffs twice daily. -Continue Duonebs scheduled 3 times daily and as needed for shortness of breath and/or wheezing. -Status post extended course of antibiotics Cardiogenic shock, resolved Acute on chronic diastolic and systolic CHF, EF 40% Paroxysmal atrial fibrillation with RVR, s/p cardioversion, now maintaining sinus mechanism History of CAD with stenting -Off of vasopressors -Continue Lasix 40mg PO daily, monitor electrolytes and renal function -Continue close monitoring of I/Os, daily weights. Patient had a total urinary output of 1850 mL over the past 24 hours -Continue Amiodarone 100 mg daily, metoprolol 50mg BID, Eliquis 2.5 mg BID, atorvastatin 20 mg daily, Farxiga 10 mg daily and midodrine 10 mg 4 times daily . -Cardiology following, reviewed documentation in chart. Acute on chronic renal failure, slightly worsening -Nephrology note reviewed -Continue close monitoring of I/Os. Patient had a total urinary output of 1850 mL over the past 24 hours -Repeat BMP tomorrow Hypothyroidism TSH normal findings at 0.471. Continue daily medication regimen with levothyroxine 75 g daily. Hypokalemia, resolved Hypomagnesemia, resolved Data and imaging reviewed: -Vital signs reviewed. Temp 97.7F, Blood pressure 102/66, heart rate 58, respiratory rate 17, SpO2 of 95% on 4 L O2. -CBC showing persistent leukocytosis with WBC count of 23.6 and stable normocytic anemia with hemoglobin of 8.9. BMP revealing hypochloremia with chloride of 96, bicarb of 31, anion gap 10 and elevated renal function with BUN of 106, creatinine 2.45, and GFR of 20.. CODE STATUS: Full code DVT prophylaxis: Eliquis Anticipated discharge date: Anticipate possible discharge in the next [address] Patient was seen independently by Nurse Pracitioner. This document was prepared using [employer] dictation software. Please allow for errors in swimming coach or instructor, while rare they do occur. I reviewed the documentation as provided by the JOSE ENRIQUE above, who is the original author of this note. I agree with the documented assessment and plan, with the following changes: none Objective - Vital Signs Vital signs: Vital Signs Temp 97.9 F 03/15/23 04:00 Pulse 56 L 03/15/23 04:00 Resp 18 03/15/23 04:00 BP 112/61 03/15/23 04:00 Pulse Ox 98 03/15/23 04:00 FiO2 10 03/11/23 07:00 Intake & Output 03/14/23 03/15/23 03/15/23 18:59 06:59 18:59 Intake Total 360 Output Total 1400 450 Balance -1040 -450 Intake: Oral 360 Output: Urine 1400 450 Stool 0 Other: Voiding Method External Catheter External Catheter # Voids 2 - Labs CBC & Chem 7: 03/15/23 06:30 03/15/23 06:30 Labs: Abnormal Lab Results - Last 24 Hours (Table) 03/14/23 03/14/23 03/14/23 Range/Units 07:59 07:59 07:59 WBC 21.5 H (3.8-10.6) k/uL RBC 3.00 L (3.80-5.40) m/uL Hgb 9.0 L (11.4-16.0) gm/dL Hct 28.5 L (34.0-46.0) % RDW 16.7 H (11.5-15.5) % Neutrophils # 19.7 H (1.3-7.7) k/uL Lymphocytes # 0.9 L (1.0-4.8) k/uL Sodium 136 L (137-145) mmol/L Chloride 95 L (98-107) mmol/L BUN 107 H* (7-17) mg/dL Creatinine 2.30 H (0.52-1.04) mg/dL Glucose 150 H (74-99) mg/dL Ferritin 600.0 H (10.0-291.0) ng/mL Urine Appearance (Clear) Urine Protein (Negative) Urine Glucose (UA) (Negative) Urine Blood (Negative) Ur Leukocyte Esterase (Negative) Urine RBC (0-5) /hpf Urine WBC (0-5) /hpf Urine Mucus (None) /hpf 03/14/23 03/15/23 Range/Units 14:54 06:30 WBC 23.6 H (3.8-10.6) k/uL RBC 2.91 L (3.80-5.40) m/uL Hgb 8.9 L (11.4-16.0) gm/dL Hct 27.4 L (34.0-46.0) % RDW 16.9 H (11.5-15.5) % Neutrophils # 22.2 H (1.3-7.7) k/uL Lymphocytes # 0.6 L (1.0-4.8) k/uL Sodium (137-145) mmol/L Chloride (98-107) mmol/L BUN (7-17) mg/dL Creatinine (0.52-1.04) mg/dL Glucose (74-99) mg/dL Ferritin (10.0-291.0) ng/mL Urine Appearance Cloudy H (Clear) Urine Protein 1+ H (Negative) Urine Glucose (UA) 2+ H (Negative) Urine Blood Large H (Negative) Ur Leukocyte Esterase Small H (Negative) Urine RBC 157 H (0-5) /hpf Urine WBC 38 H (0-5) /hpf Urine Mucus Rare H (None) /hpf
--- NOTE | 2023-03-15 15:38 | P.PN ---
Subjective Progress Note Date: 03/15/23 Principal diagnosis: Acute on chronic hypoxic respiratory failure, multifactorial secondary to acute on chronic diastolic congestive heart failure, underlying COPD, with acute exac erbation This is a pleasant 67-year-old female who is had multiple readmissions to the hospital. 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 She had been on the selective care unit. Today she developed hypotension, atrial fibrillation with a rapid ventricular response increasing shortness of breath cough and congestion and was transferred to the intensive care unit. She is seen today in consultation. She is quite weak and debilitated. Her daughter is at the bedside. She is currently maintaining O2 saturations in the upper 90s on 2 L/m per nasal cannula. Blood pressure 80/50. Heart rate 109. Afebrile. Chest x- ray reveals moderate cardiomegaly with diffuse interstitial infiltrates. Count 8.2. Hemoglobin 12.0. Platelets 239. Sodium 137. Potassium 3.5. Bicarb 25. BUN 31. Creatinine 1.78. Glucose 112. Urinalysis cloudy with moderate blood and large leukocyte esterase and high WBCs with many bacteria. She is currently on DuoNeb inhalations, Symbicort, Singulair and ceftriaxone. Anticoagulation on hold for possible heart catheterization tomorrow. Patient was reevaluated today on 02/28/23 patient is still in the ICU, I saw her yesterday, overnight the patient had worsening atrial fibrillation with RVR, remains poorly controlled, she required norepinephrine last night but this was discontinued this morning. Patient developed worsening congestive heart failure with interstitial edema as noted on the chest x-ray today, hence I recommended that we start the patient on Lasix drip at 10 mg per hour cut down her IV fluid to KVO, continue patient on ceftriaxone since the Procrit started level is 0.26 today my clinical suspicion for pneumonia is rather low, but it is hard to tell based on the chest x-ray findings since the chest x-ray is showing mostly bi lateral interstitial edema. Patient seems to be comfortable, she is not in distress, she is on 3 L nasal cannula but on physical examination she had significant crackles or rhonchi and wheezes bilaterally. And hoping the Lasix drip will improve her pulmonary symptoms WBC count today is 10.5 hemoglobin is 11.4 basic metabolic profile is normal BUN is 27 creatinine 1.75, pro-calcitonin level is 0.26, patient is empirically on Rocephin. 03/12/2023, the patient is feeling much better. She underwent bronchoscopy and therapeutic airway suctioning and copious amounts blister secretions were sucti oned out. Following that, there was significant improvement in oxygenation. This morning, the patient is down to 4 L of O2 nasal cannula. Her pulse ox is 97%. Cough is less congested. The sputum was sent for culture analysis and is also still pending for now. Chest x-ray findings are stable. The patient was switched to oral Lasix and the patient has a slight rise in the creatinine which is up to 2.12. Cardiology noted that in the switched him to Lasix 40 mg by mouth twice a day. The white cycles of 19.1, hemoglobin 9.5, BUN is at 86 with a creatinine of 2.1 and his sodium level is at 138. She feels significantly improved compared to yesterday. At the same time, she remains on bron chodilators. She remains on IV cefepime. She is also on anticoagulation with Eliquis. Cardiac rhythm is sinus bradycardia. The patient remains on amiodarone. She remains on metoprolol 50 mg by mouth twice a day. She is using the incentive spirometer. She is tolerating her diet. She is in much better condition. Note that the bronchoscopy showed significant amount of tracheobronchomalacia. The bronchial alveolar lavage was sent for microbial cultures and there is also still pending for now. On 03/13/2023, the patient is on 3 L of oxygen by nasal cannula, calm and comfortable and she denies having any specific complaints. Her night was uneventful. She still on diuretics. She was switched to oral Lasix. Her cardiac rhythm is sinus any cardio. Amiodarone dose was adjusted by cardiology. Meanwhile, her white cell count of 18, hemoglobin is at 9.2 with a platelet count of 248. Urine is 98 with a creatinine of 2 and a sodium level is at 138. Fluid balance is in order of -2.1 L over the past 24 hours. Otherwise, she is tolerating diet, she is awake and alert and she is also communicating. I'm still awaiting the cultures from the bronchial alveolar lavage was sent earlier. The patient remains on IV cefepime and she completed her last those last night. She is on bronchodilators and she is on anticoagulation. She is also on IV Solu-Medrol which is going to be tapered down to 40 mg every 12 hours. 03/14/2023, the patient remains on 3-4 L. Doing well. Cough and congestion is subsided. Awaiting the results of the bronchial lavage and the microbial cultures and analysis. No specific complaints. Using the incentive spirometer. Remains on Lasix 40 mg by mouth daily. Remains on anticoagulation with Eliquis. Remains on bronchodilators. White cell count is at 21, hemoglobin was at 9, BUN is at 107 with a creatinine of 2.3 and a sodium levels of 136. Patient was reevaluated today on 03/15/2023, patient is still having significant pulmonary symptoms with intermittent cough and wheezing. Chest x-ray continues to show significant interstitial edema, diffuse interstitial opacities are worsening compared to the last few days, and on physical examination she has diffuse crackles and rhonchi bilaterally. Patient is on 4 L nasal cannula with O2 sats is 97%, surprisingly does not seem to be clinically in distress as expected based on the chest x-ray findings and based on the physical findings/pulmonary examination. Nonetheless I did recommend Lasix 40 mg IV push to be given. Sputum cultures/BAL cultures are still pending patient is developing worsening leukocytosis was W7 23.6 hemoglobin 8.9, BUN today is 106 creatinine 2.45. Patient remains on bronchodilators, remains on diuretics, presently off antibiotics patient is also on amiodarone at 100 mg by mouth daily and she is on eliquis. Objective - Vital Signs Vital signs: Vital Signs Temp 98.4 F 03/15/23 15:15 Pulse 53 L 03/15/23 15:15 Resp 17 03/15/23 15:15 BP 108/68 03/15/23 15:15 Pulse Ox 97 03/15/23 15:15 FiO2 10 03/11/23 07:00 Intake & Output 03/14/23 03/15/23 03/15/23 18:59 06:59 18:59 Intake Total 360 Output Total 1400 450 Balance -1040 -450 Intake: Oral 360 Output: Urine 1400 450 Stool 0 Other: Voiding Method External Catheter External Catheter External Catheter # Voids 2 1 # Bowel Movements 1 - Exam Physical Exam: Revealed a 67-year-old female in no distress on 4 L nasal cannula HEENT:[Neck is supple.] [No neck masses.] [No thyromegaly.] [No JVD.] Chest: [Diffuse crackles or rhonchi and wheezes bilaterally. Cardiac Exam: Irregular irregular rhythm. [Normal S1 and S2, no S3 gallop, over 6 systolic murmur thought the precordium Abdomen: [Soft, nontender, no megaly, no rebound, no guarding, normal bowel sounds.] Extremities: [No clubbing, trace of bipedal edema, no cyanosis.] Neurological Exam: [No focal neurologic deficit.] Alert and oriented 3. Psychiatric: Normal mood, affect and normal mental status examination Skin: No rashes - Labs CBC & Chem 7: 03/15/23 06:30 03/15/23 06:30 Labs: Abnormal Lab Results - Last 24 Hours (Table) 03/14/23 03/15/23 03/15/23 Range/Units 07:59 06:30 06:30 WBC 23.6 H (3.8-10.6) k/uL RBC 2.91 L (3.80-5.40) m/uL Hgb 8.9 L (11.4-16.0) gm/dL Hct 27.4 L (34.0-46.0) % RDW 16.9 H (11.5-15.5) % Neutrophils # 22.2 H (1.3-7.7) k/uL Lymphocytes # 0.6 L (1.0-4.8) k/uL Chloride 96 L (98-107) mmol/L Carbon Dioxide 31 H (22-30) mmol/L BUN 106 H* (7-17) mg/dL Creatinine 2.45 H (0.52-1.04) mg/dL Glucose 144 H (74-99) mg/dL Magnesium 2.7 H (1.6-2.3) mg/dL Ferritin 600.0 H (10.0-291.0) ng/mL Assessment and Plan Assessment: Impression: Acute on chronic hypoxic respiratory failure, multifactorial Acute on chronic systolic congestive heart failure Acute exacerbation of COPD Underlying pneumonia is not entirely ruled out but felt to be less likely, patient had a bronchoscopy and BAL, cultures are pending Atrial fibrillation with RVR Recent urinary tract infection secondary to Klebsiella pneumoniae, has been treated History of DVT and pulmonary embolism Chronic cor pulmonale Chronic kidney disease stage III Coronary arteriosclerosis and previous stent placement Recommendation: Patient is not quite ready to be discharged to rehab at this point, her pulmonary status is extremely marginal Continue diuretics Continue amiodarone Continue bronchodilators including Symbicort and DuoNeb Continue prednisone at 40 mg daily Cardiology to decide regarding anticoagulation therapy for her atrial fibrillation. CODE STATUS is full code. Continue to monitor daily labs Prognosis is poor and guarded We will continue to follow Time with Patient: Less than 30
[2023-03-15] MEDS: HYDROcodone/APAP 5-325MG 1 EACH TAB PO PRN (19:50)
[2023-03-15] MEDS: ATORVASTATIN 20 MG TAB PO SCH (19:51)
[2023-03-15] MEDS: SERTRALINE 100 MG TAB PO SCH (19:51)
[2023-03-16] MEDS: MIDODRINE 5 MG TAB PO SCH ×6 (00:47→21:17)
[2023-03-16] MEDS: LEVOTHYROXINE 75 MCG TAB PO SCH (04:45)
[2023-03-16] MEDS: HYDROcodone/APAP 5-325MG 1 EACH TAB PO PRN (04:45)
[2023-03-16] MEDS: IPRATROPIUM-ALBUTEROL 3 ML NEB INHALATION SCH ×4 (08:28→22:15)
[2023-03-16] MEDS: FORMOTEROL FUMARATE 20 MCG/2 ML NEBU INHALATION SCH ×3 (08:28→22:15)
[2023-03-16] MEDS: BUDESONIDE 1 MG/2 ML NEBU INHALATION SCH ×3 (08:28→22:15)
[2023-03-16] MEDS: APIXABAN 2.5 MG TABLET PO SCH ×2 (08:39→21:16)
[2023-03-16] MEDS: predniSONE 20 MG TAB PO SCH (08:39)
[2023-03-16] MEDS: GABAPENTIN 100 MG CAP PO SCH ×3 (08:39→21:16)
[2023-03-16] MEDS: METOPROLOL TARTRATE 50 MG TAB PO SCH ×2 (08:39→21:16)
[2023-03-16] MEDS: FUROSEMIDE 40 MG TAB PO SCH (08:39)
[2023-03-16] MEDS: PANTOPRAZOLE 40 MG/10 ML VIAL IVP SCH (08:40)
[2023-03-16] MEDS: DAPAGLIFLOZIN PROPANEDIOL 10 MG TABLET PO SCH (08:40)
[2023-03-16] MEDS: AMIODARONE 100 MG TAB PO SCH (08:40)
[2023-03-16 10:19] LABS: African American GFR (CKD) 24 (>60 ml/min/1.73 sqM); Anion Gap 9 mmol/L; Blood Urea Nitrogen 96 mg/dL (7-17); Calcium 8.7 mg/dL (8.4-10.2); Carbon Dioxide 31 mmol/L (22-30); Chloride 94 mmol/L (98-107); Glucose 127 mg/dL (74-99); Magnesium 2.4 mg/dL (1.6-2.3); Non-African American GFR(CKD) 21 (>60 ml/min/1.73 sqM); Sodium 134 mmol/L (137-145)
[2023-03-16 10:21] LABS: Anisocytosis Slight; HCT 23.8 % (34.0-46.0); MCH 31.4 pg (25.0-35.0); MCHC 33.6 g/dL (31.0-37.0); MCV 93.4 fL (80.0-100.0); Mean Platelet Volume 8.2; Platelet Count 236 k/uL (150-450); RBC 2.55 m/uL (3.80-5.40); WBC 30.3 k/uL (3.8-10.6)
[2023-03-16] MEDS: LIDOCAINE 4% PATCH TOPICAL SCH (11:09)
--- NOTE | 2023-03-16 11:16 | P.PN ---
Subjective Patient is seen in follow-up for chronic kidney disease. Renal function slightly better. Nonoliguric. On oral Lasix. Denies chest pain or shortness of breath. Family present at bedside. Vital signs are stable. General: No acute distress. HEENT: Head exam is unremarkable. On nasal cannula. LUNGS: No audible rhonchi or wheezes. HEART: Rate and Rhythm are regular. ABDOMEN: Nontender. EXTREMITITES: No edema. Objective - Vital Signs Vital signs: Vital Signs Temp 97.4 F L 03/16/23 08:36 Pulse 57 L 03/16/23 08:36 Resp 20 03/16/23 08:36 BP 121/71 03/16/23 08:36 Pulse Ox 96 03/16/23 08:36 FiO2 10 03/11/23 07:00 Intake & Output 03/15/23 03/16/23 03/16/23 18:59 06:59 18:59 Intake Total 240 236 Output Total 600 150 Balance -600 90 236 Intake: Oral 240 236 Output: Urine 600 150 Stool 0 Other: Voiding Method External Catheter External Catheter External Catheter # Voids 1 # Bowel Movements 1 - Labs CBC & Chem 7: 03/16/23 09:35 03/16/23 09:35 Labs: Abnormal Lab Results - Last 24 Hours (Table) 03/16/23 03/16/23 Range/Units 09:35 09:35 WBC 30.3 H (3.8-10.6) k/uL RBC 2.55 L (3.80-5.40) m/uL Hgb 8.0 L (11.4-16.0) gm/dL Hct 23.8 L (34.0-46.0) % RDW 17.0 H (11.5-15.5) % Sodium 134 L (137-145) mmol/L Chloride 94 L (98-107) mmol/L Carbon Dioxide 31 H (22-30) mmol/L BUN 96 H (7-17) mg/dL Creatinine 2.30 H (0.52-1.04) mg/dL Glucose 127 H (74-99) mg/dL Magnesium 2.4 H (1.6-2.3) mg/dL Assessment and Plan Plan: Assessment: 1. Chronic kidney disease stage IV with baseline creatinine near 2 secondary to cardiorenal syndrome and nephrosclerosis. Atrophic kidneys noted on renal ultr asound done January 2023. Renal function worsened from diuresis - cr stable at 2.3 today. BUN partially elevated from steroids - trending down. 2. A. fib with RVR maintained on amiodarone and Lopressor. Status post cardioversion and ARCADIO. 3. Hypotension s/p Levophed. On midodrine. 4. Hypervolemic hyponatremia. Stable. 5. Hypokalemia from diuresis. Replaced. Better. 6. Acute on chronic systolic CHF with ejection fraction of 40% with moderate aortic insufficiency. 7. History of coronary artery disease with cardiac stenting. 8. Volume overload. Improved with diuresis. 9. Hypomagnesemia from diuresis. Replaced. Improved. 10. Anemia of chronic kidney disease. Iron replete. On Aranesp. Plan: Maintain oral Lasix. On farxiga. Maintain midodrine. Hold for systolic blood pressure greater than 110. Avoid nephrotoxins. Continue to monitor renal function and urine output. Cortisol level not low. Chest x-ray done 03/14/2023 didn't show pleural effusions. Follow-up cultures. Discussed in detail with patient's daughter this admission regarding monitoring volume status closely upon discharge. Advised to maintain low salt diet and fluid restriction of less than 50 ounces per day. Advised to monitor her weight closely at home and notify physician if develops edema or gains more than 3-4 pounds in one week duration.
--- NOTE | 2023-03-16 13:43 | P.PN ---
Subjective HISTORY OF PRESENT ILLNESS: The patient is 67-year-old female with known history of CAD, paroxysmal atrial fibrillation status post cardioversion, severe COPD who presented with worsening dyspnea. She continues to be on high flow oxygen, in sinus mechanism, feels better. She denies any chest discomfort, dizziness or palpitations. She had evidence of moderate cardiomyopathy. Hemodynamically she is stable, her urinary output has been good. There is no evidence of ventricular tachycardia. March 09: The patient feels better overall, she continues to be in sinus mechanism. Hemodynamically she is stable. She denies any chest discomfort or dizziness. She denies any nausea or vomiting. She has a prior history of COPD and her chest x-ray continues to show bilateral infiltrate. She had a known history of moderate cardiomyopathy. March 10: The patient became hypoxic during the night requiring BiPAP. She is in sinus mechanism with episodes of sinus bradycardia. There is occasional single PVCs but no evidence of atrial fibrillation. She is coughing but no significant sputum. She denies any chest discomfort, dizziness or palpitations. Her urinary output has been stable. She denies any nausea or vomiting. Her chest x-ray shows persistent infiltrate. March 11: The patient feels well this morning, she continues to have mild dyspnea but stable. She denies any chest discomfort, dizziness or palpitations. She continues to be in sinus mechanism with stable blood pressure. Her urinary output is good. She has no nausea or vomiting. March 12: The patient is feeling relatively well this morning she continues to be dyspneic and fatigued. She had bronchoscopy yesterday and removal of mucous plugging and secretions. She continues to be in sinus mechanism with sinus bradycardia. There is no evidence of recurrent atrial fibrillation. Her blood pressure has been stable. She is on no vasopressors. Her urinary output has been stable. Her chest x-ray continues to show bilateral infiltrate. She continues to be on IV Lasix. March 13: She is feeling well this morning, she denies any chest discomfort or dizziness. She is coughing but feels better overall. She denies any nausea or vomiting. She continues to be in sinus mechanism with stable blood pressure. She continues to have some wheezing. She is on oral diuretics. March 14: The patient is feeling better, her breathing is better. She denies any chest discomfort, dizziness or palpitations. She continues to be in sinus mechanism. She appears to be stronger. She has no nausea or vomiting. 03/15/2023 Patient examined this morning at the bedside. Patient denies chest pain or pressure. She continues to report shortness of breath but states it is slightly better compared to yesterday. She remains on supplemental oxygen maintaining oxygen saturation greater than 92%.. She was given a one-time dose of IV Lasix today per pulmonary. Creatinine today 2.45. Blood pressure is stable. Tele metry reveals sinus mechanism. 03/16/2023 Patient examined this morning at the bedside. Family present. She denies chest pain or pressure. She reports SOB that is unchanged. She remains on oral diur etics. Vital signs are stable. PHYSICAL EXAM: VITAL SIGNS: Reviewed. GENERAL: Well-developed in no acute distress. NECK: Supple. No JVD or thyromegaly LUNGS: Respirations even and unlabored. Lungs with bilateral rhonchi noted. HEART: Regular rate and rhythm. S1 and S2 heard. Systolic murmur noted EXTREMITIES: Normal range of motion. No clubbing or cyanosis. Peripheral pulses intact. No lower extremity edema ASSESSMENT: Acute hypoxic respiratory failure secondary to combination of CHF, possible pneumonia, and exacerbation of COPD Status post bronchoscopy History of coronary artery disease with previous stenting Paroxysmal atrial fibrillation, currently maintaining sinus mechanism Status post cardioversion with sinus bradycardia Chronic kidney disease Ischemic cardiomyopathy, ejection fraction 40% Valvular heart disease including moderate AI, mild , and mild TR PLAN: Continue current cardiac medications Continue oral diuretics per nephrology Continue to monitor kidney function Repeat chest x-ray Dr. Lou to speak with Dr. Stockton regarding right heart catheterization tomorrow Nothing by mouth at midnight Further recommendations pending patient's course Nurse practitioner note has been reviewed by physician. Signing provider agrees with the documented findings, assessment, and plan of care. Objective - Vital Signs Vital signs: Vital Signs Temp 98.5 F 03/16/23 04:00 Pulse 52 L 03/16/23 04:00 Resp 20 03/16/23 04:00 BP 104/62 03/16/23 04:00 Pulse Ox 94 L 03/16/23 04:00 FiO2 10 03/11/23 07:00 Intake & Output 03/15/23 03/16/23 03/16/23 18:59 06:59 18:59 Intake Total 240 Output Total 600 150 Balance -600 90 Intake: Oral 240 Output: Urine 600 150 Stool 0 Other: Voiding Method External Catheter External Catheter # Voids 1 # Bowel Movements 1 - Labs CBC & Chem 7: 03/16/23 09:35 03/16/23 09:35
--- NOTE | 2023-03-16 13:52 | XR ---
EXAMINATION TYPE: XR chest 1V portable DATE OF EXAM: 03/16/2023 COMPARISON: 03/14/2023 INDICATION: Follow-up pneumonia TECHNIQUE: Single frontal view of the chest is obtained. FINDINGS: The heart size is enlarged. The pulmonary vasculature is prominent. Diffuse increased lung markings are present bilaterally. This may be slightly improving over the inte rval. IMPRESSION: 1. Focal correlation recommended for congestive heart failure. Diffuse atypical pneumonia could be co nsidered within the differential.
--- NOTE | 2023-03-16 14:51 | P.PN ---
Subjective Progress Note Date: 03/16/23 Principal diagnosis: Acute on chronic hypoxic respiratory failure, multifactorial secondary to acute on chronic diastolic congestive heart failure, underlying COPD, with acute exac erbation This is a pleasant 67-year-old female who is had multiple readmissions to the hospital. 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 She had been on the selective care unit. Today she developed hypotension, atrial fibrillation with a rapid ventricular response increasing shortness of breath cough and congestion and was transferred to the intensive care unit. She is seen today in consultation. She is quite weak and debilitated. Her daughter is at the bedside. She is currently maintaining O2 saturations in the upper 90s on 2 L/m per nasal cannula. Blood pressure 80/50. Heart rate 109. Afebrile. Chest x- ray reveals moderate cardiomegaly with diffuse interstitial infiltrates. Count 8.2. Hemoglobin 12.0. Platelets 239. Sodium 137. Potassium 3.5. Bicarb 25. BUN 31. Creatinine 1.78. Glucose 112. Urinalysis cloudy with moderate blood and large leukocyte esterase and high WBCs with many bacteria. She is currently on DuoNeb inhalations, Symbicort, Singulair and ceftriaxone. Anticoagulation on hold for possible heart catheterization tomorrow. Patient was reevaluated today on 02/28/23 patient is still in the ICU, I saw her yesterday, overnight the patient had worsening atrial fibrillation with RVR, remains poorly controlled, she required norepinephrine last night but this was discontinued this morning. Patient developed worsening congestive heart failure with interstitial edema as noted on the chest x-ray today, hence I recommended that we start the patient on Lasix drip at 10 mg per hour cut down her IV fluid to KVO, continue patient on ceftriaxone since the Procrit started level is 0.26 today my clinical suspicion for pneumonia is rather low, but it is hard to tell based on the chest x-ray findings since the chest x-ray is showing mostly bi lateral interstitial edema. Patient seems to be comfortable, she is not in distress, she is on 3 L nasal cannula but on physical examination she had significant crackles or rhonchi and wheezes bilaterally. And hoping the Lasix drip will improve her pulmonary symptoms WBC count today is 10.5 hemoglobin is 11.4 basic metabolic profile is normal BUN is 27 creatinine 1.75, pro-calcitonin level is 0.26, patient is empirically on Rocephin. 03/12/2023, the patient is feeling much better. She underwent bronchoscopy and therapeutic airway suctioning and copious amounts blister secretions were sucti oned out. Following that, there was significant improvement in oxygenation. This morning, the patient is down to 4 L of O2 nasal cannula. Her pulse ox is 97%. Cough is less congested. The sputum was sent for culture analysis and is also still pending for now. Chest x-ray findings are stable. The patient was switched to oral Lasix and the patient has a slight rise in the creatinine which is up to 2.12. Cardiology noted that in the switched him to Lasix 40 mg by mouth twice a day. The white cycles of 19.1, hemoglobin 9.5, BUN is at 86 with a creatinine of 2.1 and his sodium level is at 138. She feels significantly improved compared to yesterday. At the same time, she remains on bron chodilators. She remains on IV cefepime. She is also on anticoagulation with Eliquis. Cardiac rhythm is sinus bradycardia. The patient remains on amiodarone. She remains on metoprolol 50 mg by mouth twice a day. She is using the incentive spirometer. She is tolerating her diet. She is in much better condition. Note that the bronchoscopy showed significant amount of tracheobronchomalacia. The bronchial alveolar lavage was sent for microbial cultures and there is also still pending for now. On 03/13/2023, the patient is on 3 L of oxygen by nasal cannula, calm and comfortable and she denies having any specific complaints. Her night was uneventful. She still on diuretics. She was switched to oral Lasix. Her cardiac rhythm is sinus any cardio. Amiodarone dose was adjusted by cardiology. Meanwhile, her white cell count of 18, hemoglobin is at 9.2 with a platelet count of 248. Urine is 98 with a creatinine of 2 and a sodium level is at 138. Fluid balance is in order of -2.1 L over the past 24 hours. Otherwise, she is tolerating diet, she is awake and alert and she is also communicating. I'm still awaiting the cultures from the bronchial alveolar lavage was sent earlier. The patient remains on IV cefepime and she completed her last those last night. She is on bronchodilators and she is on anticoagulation. She is also on IV Solu-Medrol which is going to be tapered down to 40 mg every 12 hours. 03/14/2023, the patient remains on 3-4 L. Doing well. Cough and congestion is subsided. Awaiting the results of the bronchial lavage and the microbial cultures and analysis. No specific complaints. Using the incentive spirometer. Remains on Lasix 40 mg by mouth daily. Remains on anticoagulation with Eliquis. Remains on bronchodilators. White cell count is at 21, hemoglobin was at 9, BUN is at 107 with a creatinine of 2.3 and a sodium levels of 136. Patient was reevaluated today on 03/15/2023, patient is still having significant pulmonary symptoms with intermittent cough and wheezing. Chest x-ray continues to show significant interstitial edema, diffuse interstitial opacities are worsening compared to the last few days, and on physical examination she has diffuse crackles and rhonchi bilaterally. Patient is on 4 L nasal cannula with O2 sats is 97%, surprisingly does not seem to be clinically in distress as expected based on the chest x-ray findings and based on the physical findings/pulmonary examination. Nonetheless I did recommend Lasix 40 mg IV push to be given. Sputum cultures/BAL cultures are still pending patient is developing worsening leukocytosis was W7 23.6 hemoglobin 8.9, BUN today is 106 creatinine 2.45. Patient remains on bronchodilators, remains on diuretics, presently off antibiotics patient is also on amiodarone at 100 mg by mouth daily and she is on eliquis. Patient was reevaluated today on 03/16/2023, patient is feeling better today, breathing easier, she remains on diuretics, yesterday I gave her an extra dose of Lasix because she was sounding quite wet. Patient is on 4 L nasal cannula, not in distress, however her white count seems to be on the rise up to 30.3 with hemoglobin of 8 electrolytes are normal and BUN is 96 creatinine 2.30 actually better than yesterday in spite of the extra dose of Lasix given yesterday. Chest x-ray today showed improvement in her interstitial edema but not completely resolved Objective - Vital Signs Vital signs: Vital Signs Temp 97.8 F 03/16/23 11:09 Pulse 60 03/16/23 13:35 Resp 20 03/16/23 11:09 BP 113/76 03/16/23 12:19 Pulse Ox 98 03/16/23 11:09 FiO2 10 03/11/23 07:00 Intake & Output 03/15/23 03/16/23 03/16/23 18:59 06:59 18:59 Intake Total 240 446 Output Total 600 150 100 Balance -600 90 346 Weight 81 kg Intake: IV 10 Invasive Line 10 10 Oral 240 436 Output: Urine 600 150 100 Stool 0 Other: Voiding Method External Catheter External Catheter External Catheter # Voids 1 # Bowel Movements 1 - Exam Physical Exam: Revealed a 67-year-old female in no distress on 4 L nasal cannula HEENT:[Neck is supple.] [No neck masses.] [No thyromegaly.] [No JVD.] Chest: [Minimal crackles at the bases no rhonchi and no wheezes today. Cardiac Exam: Irregular irregular rhythm. [Normal S1 and S2, no S3 gallop, over 6 systolic murmur thought the precordium Abdomen: [Soft, nontender, no megaly, no rebound, no guarding, normal bowel sounds.] Extremities: [No clubbing, trace of bipedal edema, no cyanosis.] Neurological Exam: [No focal neurologic deficit.] Alert and oriented 3. Psychiatric: Normal mood, affect and normal mental status examination Skin: No rashes - Labs CBC & Chem 7: 03/16/23 09:35 03/16/23 09:35 Labs: Abnormal Lab Results - Last 24 Hours (Table) 03/16/23 03/16/23 Range/Units 09:35 09:35 WBC 30.3 H (3.8-10.6) k/uL RBC 2.55 L (3.80-5.40) m/uL Hgb 8.0 L (11.4-16.0) gm/dL Hct 23.8 L (34.0-46.0) % RDW 17.0 H (11.5-15.5) % Sodium 134 L (137-145) mmol/L Chloride 94 L (98-107) mmol/L Carbon Dioxide 31 H (22-30) mmol/L BUN 96 H (7-17) mg/dL Creatinine 2.30 H (0.52-1.04) mg/dL Glucose 127 H (74-99) mg/dL Magnesium 2.4 H (1.6-2.3) mg/dL Assessment and Plan Assessment: Impression: Acute on chronic hypoxic respiratory failure, multifactorial Acute on chronic systolic congestive heart failure Acute exacerbation of COPD Underlying pneumonia is not entirely ruled out but felt to be less likely, patient had a bronchoscopy and BAL, cultures are pending Atrial fibrillation with RVR Recent urinary tract infection secondary to Klebsiella pneumoniae, has been treated History of DVT and pulmonary embolism Chronic cor pulmonale Chronic kidney disease stage III Coronary arteriosclerosis and previous stent placement Recommendation: Considering her leukocytosis, would hold on discharge planning for now. Continue diuretics Continue amiodarone Continue bronchodilators including Symbicort and DuoNeb Decrease prednisone to 50 mg daily CODE STATUS is full code. Continue to monitor daily labs Prognosis is poor and guarded We will continue to follow Time with Patient: Less than 30
--- NOTE | 2023-03-16 15:28 | P.PN ---
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 She presented to the emergency department with complaints of generalized weakness, intermittent chest pain, shortness of breath, and a headache. Patient was scheduled for cardiac ablation on 03/05/[address] Stockton. Vital signs showed BP 133/82, HR 118, RR 22, T 98.8F, SpO2 of 99% on room air. EKG showed AFib with RVR at 125 bpm. Chest x-ray showed no acute process. CT head showing no acute process. WBC count 11.4. Coagulation profile showing PT of 13.4, INR 1.3, and D-dimer at 1.97 (chr onically elevated). BMP Na 130, K 3.4, Cl 94, bicarb of 21, anion gap 15, BUN of 30, Cr 1.81, with baseline Cr 1.9. Troponin less than 0.012. ProBNP 3970 which is significantly improved from previous BNP of 11,800. COVID PCR, Flu, and RSV were negative. Patient was admitted under our services secondary to intermittent chest pain and atrial fibrillation with consultation to cardiology. Troponins trended, less than 0.012, 0.012, and less than 0.012. Urinalysis was obtained and was abnormal showing positive for protein, ketones, and leukocytosis with 9 RBCs and 18 WBCs. However, patient did have urinary symptoms. Patient became hypotensive on 02/27. Was transferred to medical ICU. Started on norepinephrine. Continue to remain in atrial fibrillation with RVR. Was also started on Lasix drip. Echocardiogram showed slightly reduced LVEF of 40% with global hypokinesis, moderate aortic insufficiency. She had ARCADIO and cardioversion on 03/02, now converted to sinus rhythm. Lasix drip transitioned to IV push 03/03, then later transitioned to oral Bumex. Respiratory function worsen. CXR shows complete opacification of the right lung and pulmonary vascular congestion. Concerns for mucus plugging. Antibiotics escalated to Vancomycin and Cefepime. Will require vasopressors, currently blood pressure stable. Patient on and off with BiPAP, transitioned to high flow nasal cannula occasionally, however, oxygen requirements still high. She is back IV diuretics, remains on IV antibiotics. Bronchoscopy showed tracheobronchomalacia, extensive mucus plugging, therapeutic airway suctioning and bronchial lavage done. She is now on oral diuretics, and IV steroids. Continue antibiotic course. Overall respiratory function improving. Now on nasal cannula 3 L. Patient would be okay with following palliative care outpatient. Patient is out of the ICU. Pt was accepted to [facility] for subacute rehab placement, however she began to have worsening renal function and elevating white blood cell count. Physical exam: Patient seen and fully evaluated at bedside this morning. She remains on 4 L O2 via nasal cannula. She denies having any new complaints at this time. RN didn't report a mild amount of hematuria was noted in collection canister from external Edwards catheter. Patient denies having any frequency, urgency, or dysuria. She denies having any increases or changes in her cough or shortness of breath. Patient denies having any diarrhea, nausea, vomiting, chest pain, or any other complaints at this time. Vital signs reviewed and stable. General: Nontoxic, no distress and appears stated age. Derm: Skin warm and dry, normal coloration for ethnicity. Head: Atraumatic, normocephalic and symmetric. Eyes: EOMs intact, no lid lag, and anicteric sclera Mouth: no lip lesions, mucus membranes moist Cardiovascular: regular rate and rhythm with normal S1S2, no murmur, positive posterior tibial pulses bilaterally, and cap refill < 2 seconds. Lungs: Bilateral rhonchi, no accessory muscle use, supplemental oxygen Abdominal: soft, nontender to palpation, no guarding, no appreciable organomegaly Ext: ROM intact. No gross muscle atrophy, no edema, no contractures Neuro: Speech clear, face symmetrical and CN II-XII grossly intact with no noted focal neuro deficits Psych: Alert and oriented to person, place, time, and situation. Appropriate and pleasant affect. Assessment and Plan of Care: Leukocytosis, worsening -Patient has completed an extended course of IV antibiotics, and is now having worsening leukocytosis with no signs of acute infection at this time. We will hold off on further initiation of antibiotics while placing additional orders an d pending these results. -Order placed for repeat chest x-ray secondary to patient's reports of continued shortness of breath and cough and urinalysis secondary to reports of mild hematuria and acute kidney injury -Pro-calcitonin to be obtained -Covid PCR, influenza A, and RSV to be rechecked Acute on chronic renal failure, slightly worsening -Nephrology note reviewed -Continue close monitoring of I/Os. Patient had a total urinary output of 1850 mL over the past 24 hours -Repeat BMP tomorrow Acute on chronic hypoxic respiratory failure, improved back near baseline respiratory status. Sepsis secondary to bacterial pneumonia, resolved. Acute COPD exacerbation History of interstitial pulmonary fibrosis -Pulmonology following, discussed plan of care with pulmonary [employer]MER. -Patient to continue prednisone 40 mg daily -Continue budesonide/formoterol 2 puffs twice daily. -Continue Duonebs scheduled 3 times daily and as needed for shortness of breath and/or wheezing. -Status post extended course of antibiotics Cardiogenic shock, resolved Acute on chronic diastolic and systolic CHF, EF 40% Paroxysmal atrial fibrillation with RVR, s/p cardioversion, now maintaining sinus mechanism History of CAD with stenting -Off of vasopressors -Continue Lasix 40mg PO daily, monitor electrolytes and renal function -Continue close monitoring of I/Os, daily weights. Patient had a total urinary output of 750 mL over the past 24 hours -Continue Amiodarone 100 mg daily, metoprolol 50mg BID, Eliquis 2.5 mg BID, atorvastatin 20 mg daily, Farxiga 10 mg daily and midodrine 10 mg 4 times daily. -Cardiology following, reviewed documentation in chart. Hypothyroidism TSH normal findings at 0.471. Continue daily medication regimen with levothyroxine 75 g daily. Hypokalemia, resolved Hypomagnesemia, resolved Data and imaging reviewed: -Vital signs reviewed. Temp 97.8F, blood pressure 122/71, heart rate 55, respiratory rate 20, and SpO2 of 98% on 4 L. -CBC showing worsening leukocytosis with WBC count of 30.3 and stable normocytic anemia with hemoglobin of 8.0. BMP revealing hypochloremia with chloride of 94, bicarb of 31, anion gap 9 and elevated renal function with BUN of 96, creatinine 2.30, and GFR of 21. CODE STATUS: Full code DVT prophylaxis: Eliquis Anticipated discharge date: Anticipate possible discharge in the next [address]: assisted facility for rehab Patient was seen independently by Nurse Pracitioner. This document was prepared using [employer] dictation software. Please allow for errors in litigation attorney associate, while rare they do occur. Objective - Vital Signs Vital signs: Vital Signs Temp 98.5 F 03/16/23 04:00 Pulse 52 L 03/16/23 04:00 Resp 20 03/16/23 04:00 BP 104/62 03/16/23 04:00 Pulse Ox 94 L 03/16/23 04:00 FiO2 10 03/11/23 07:00 Intake & Output 03/15/23 03/16/23 03/16/23 18:59 06:59 18:59 Intake Total 240 Output Total 600 150 Balance -600 90 Intake: Oral 240 Output: Urine 600 150 Stool 0 Other: Voiding Method External Catheter External Catheter # Voids 1 # Bowel Movements 1 - Labs CBC & Chem 7: 03/16/23 09:35 03/16/23 09:35 Labs: Abnormal Lab Results - Last 24 Hours (Table) 03/15/23 Range/Units 06:30 Chloride 96 L (98-107) mmol/L Carbon Dioxide 31 H (22-30) mmol/L BUN 106 H* (7-17) mg/dL Creatinine 2.45 H (0.52-1.04) mg/dL Glucose 144 H (74-99) mg/dL Magnesium 2.7 H (1.6-2.3) mg/dL
[2023-03-16] MEDS: polyethylene glycoL 3350 17 GM POWD.PACK PO SCH (15:36)
[2023-03-16] MEDS: DOCUSATE 100 MG CAP PO SCH (15:53)
[2023-03-16 19:23] LABS: Appearance,Urine Slightly Cloudy (Clear); Bilirubin,Urine Negative (Negative); Blood,Urine Large (Negative); Glucose,Urine (UA) 3+ (Negative); Ketones,Urine Negative (Negative); Protein,Urine 1+ (Negative)
[2023-03-16 19:24] LABS: Color,Urine Light Red; Leukocyte Esterase,Urine Small (Negative); Nitrite,Urine Negative (Negative); Urobilinogen,Urine <2.0 mg/dL (<2.0)
[2023-03-16 19:32] LABS: RBC,Urine 177 /hpf (0-5); Squamous Epithelial Cell,Urine <1 /hpf (0-4); WBC,Urine 4 /hpf (0-5)
[2023-03-16] MEDS ORDERED: BENZOCAINE 20 % GEL 11.9 GM TUBE MM ONE (20:49)
[2023-03-16] MEDS: SERTRALINE 100 MG TAB PO SCH (21:16)
[2023-03-16] MEDS: ATORVASTATIN 20 MG TAB PO SCH (21:16)
[2023-03-17] MEDS: LEVOTHYROXINE 75 MCG TAB PO SCH (06:28)
[2023-03-17] MEDS: FORMOTEROL FUMARATE 20 MCG/2 ML NEBU INHALATION SCH ×2 (08:02→21:50)
[2023-03-17] MEDS: IPRATROPIUM-ALBUTEROL 3 ML NEB INHALATION SCH ×3 (08:02→21:50)
[2023-03-17] MEDS: BUDESONIDE 1 MG/2 ML NEBU INHALATION SCH ×2 (08:02→21:50)
[2023-03-17 09:13] LABS: Anisocytosis Slight; HCT 30.1 % (34.0-46.0); Hypochromasia Slight; MCH 30.4 pg (25.0-35.0); MCHC 32.1 g/dL (31.0-37.0); MCV 94.8 fL (80.0-100.0); Mean Platelet Volume 8.9; Platelet Count 205 k/uL (150-450); RBC 3.18 m/uL (3.80-5.40); RDW 17.1 % (11.5-15.5); WBC 27.7 k/uL (3.8-10.6)
[2023-03-17 09:21] LABS: HGB 9.7 gm/dL (11.4-16.0)
[2023-03-17] MEDS: DOCUSATE 100 MG CAP PO SCH (09:27)
[2023-03-17] MEDS: AMIODARONE 100 MG TAB PO SCH (09:27)
[2023-03-17] MEDS: APIXABAN 2.5 MG TABLET PO SCH ×2 (09:27→20:22)
[2023-03-17] MEDS: DAPAGLIFLOZIN PROPANEDIOL 10 MG TABLET PO SCH (09:27)
[2023-03-17] MEDS: GABAPENTIN 100 MG CAP PO SCH ×3 (09:27→20:22)
[2023-03-17] MEDS: FUROSEMIDE 40 MG TAB PO SCH ×2 (09:27→09:42)
[2023-03-17] MEDS: PANTOPRAZOLE 40 MG/10 ML VIAL IVP SCH (09:27)
[2023-03-17] MEDS: predniSONE 10 MG TAB PO SCH (09:27)
[2023-03-17] MEDS: METOPROLOL TARTRATE 50 MG TAB PO SCH ×3 (09:27→20:22)
[2023-03-17] MEDS: MIDODRINE 5 MG TAB PO SCH ×4 (09:27→20:22)
[2023-03-17] MEDS ORDERED: FUROSEMIDE 10 MG/ML 4 ML VIAL IV STA (09:40)
[2023-03-17 09:53] LABS: Chloride 98 mmol/L (98-107)
[2023-03-17 09:56] LABS: ALT 36 U/L (4-34); AST 28 U/L (14-36); African American GFR (CKD) 28 (>60 ml/min/1.73 sqM); Albumin 3.7 g/dL (3.5-5.0); Alkaline Phosphatase 125 U/L (38-126); Anion Gap 10 mmol/L; Blood Urea Nitrogen 93 mg/dL (7-17); Calcium 9.1 mg/dL (8.4-10.2); Carbon Dioxide 31 mmol/L (22-30); Glucose 92 mg/dL (74-99); Magnesium 2.6 mg/dL (1.6-2.3); Non-African American GFR(CKD) 24 (>60 ml/min/1.73 sqM); Sodium 139 mmol/L (137-145); Total Bilirubin 0.9 mg/dL (0.2-1.3); Total Protein 6.8 g/dL (6.3-8.2)
--- NOTE | 2023-03-17 10:30 | P.PN ---
Subjective Patient is seen in follow-up for chronic kidney disease. Renal function better. Nonoliguric. On oral Lasix. Denies chest pain or shortness of breath. Family present at bedside. Currently on 5 L nasal cannula. Vital signs are stable. General: No acute distress. HEENT: Head exam is unremarkable. On nasal cannula. LUNGS: Scattered rhonchi. HEART: Rate and Rhythm are regular. ABDOMEN: Nontender. EXTREMITITES: No edema. Objective - Vital Signs Vital signs: Vital Signs Temp 98.3 F 03/17/23 09:25 Pulse 52 L 03/17/23 09:25 Resp 22 03/17/23 09:25 BP 108/72 03/17/23 09:25 Pulse Ox 92 L 03/17/23 09:25 FiO2 10 03/11/23 07:00 Intake & Output 03/16/23 03/17/23 03/17/23 18:59 06:59 18:59 Intake Total 686 Output Total 800 600 100 Balance -114 -600 -100 Weight 81 kg 74.3 kg Intake: IV 10 Invasive Line 10 10 Oral 676 Output: Urine 800 600 100 Other: Voiding Method External Catheter External Catheter # Bowel Movements 1 - Labs CBC & Chem 7: 03/17/23 08:43 03/17/23 08:43 Labs: Abnormal Lab Results - Last 24 Hours (Table) 03/16/23 03/16/23 03/17/23 Range/Units 09:35 18:00 08:43 WBC 27.7 H (3.8-10.6) k/uL RBC 3.18 L (3.80-5.40) m/uL Hgb 9.7 L D (11.4-16.0) gm/dL Hct 30.1 L (34.0-46.0) % RDW 17.1 H (11.5-15.5) % Carbon Dioxide (22-30) mmol/L BUN (7-17) mg/dL Creatinine (0.52-1.04) mg/dL Magnesium (1.6-2.3) mg/dL ALT (4-34) U/L Procalcitonin 0.24 H (0.02-0.09) ng/mL Urine Appearance Slightly Cloudy H (Clear) Urine Protein 1+ H (Negative) Urine Glucose (UA) 3+ H (Negative) Urine Blood Large H (Negative) Ur Leukocyte Esterase Small H (Negative) Urine RBC 177 H (0-5) /hpf 03/17/23 Range/Units 08:43 WBC (3.8-10.6) k/uL RBC (3.80-5.40) m/uL Hgb (11.4-16.0) gm/dL Hct (34.0-46.0) % RDW (11.5-15.5) % Carbon Dioxide 31 H (22-30) mmol/L BUN 93 H (7-17) mg/dL Creatinine 2.07 H (0.52-1.04) mg/dL Magnesium 2.6 H (1.6-2.3) mg/dL ALT 36 H (4-34) U/L Procalcitonin (0.02-0.09) ng/mL Urine Appearance (Clear) Urine Protein (Negative) Urine Glucose (UA) (Negative) Urine Blood (Negative) Ur Leukocyte Esterase (Negative) Urine RBC (0-5) /hpf Assessment and Plan Plan: Assessment: 1. Chronic kidney disease stage IV with baseline creatinine near 2 secondary to cardiorenal syndrome and nephrosclerosis. Atrophic kidneys noted on renal ultrasound done January 2023. Renal function worsened from diuresis - creatinine improved to 2.07 today. BUN partially elevated from steroids - trending down. 2. A. fib with RVR maintained on amiodarone and Lopressor. Status post cardioversion and ARCADIO. 3. Hypotension s/p Levophed. On midodrine. 4. Hypervolemic hyponatremia. Stable. 5. Hypokalemia from diuresis. Replaced. Better. 6. Acute on chronic systolic CHF with ejection fraction of 40% with moderate aortic insufficiency. 7. History of coronary artery disease with cardiac stenting. 8. Volume overload. Improved with diuresis. 9. Hypomagnesemia from diuresis. Replaced. Improved. 10. Anemia of chronic kidney disease. Iron replete. On Aranesp. Plan: 40 mg IV Lasix today. Repeat another dose this afternoon if no improvement in oxygenation. Repeat chest x-ray tomorrow. On . Maintain midodrine. Hold for systolic blood pressure greater than 110. Avoid nephrotoxins. Continue to monitor renal function and urine output. Cortisol level not low. May need cardiac catheterization. Discussed in detail with patient and her family the risk of worsening renal function, potentially requiring renal replacement therapy, post-IV contrast exposure. They understand. Avoid aggressive hydration pre-and post cardiac catheterization due to underlying volume overload and CHF. Discussed in detail with patient's daughter this admission regarding monitoring volume status closely upon discharge. Advised to maintain low salt diet and fluid restriction of less than 50 ounces per day. Advised to monitor her weight closely at home and notify physician if develops edema or gains more than 3-4 pounds in one week duration.
--- NOTE | 2023-03-17 10:54 | P.PN ---
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 She presented to the emergency department with complaints of generalized weakness, intermittent chest pain, shortness of breath, and a headache. Patient was scheduled for cardiac ablation on 03/05/[address] Stockotn. Vital signs showed BP 133/82, HR 118, RR 22, T 98.8F, SpO2 of 99% on room air. EKG showed AFib with RVR at 125 bpm. Chest x-ray showed no acute process. CT head showing no acute process. WBC count 11.4. Coagulation profile showing PT of 13.4, INR 1.3, and D-dimer at 1.97 (chronically elevated). BMP Na 130, K 3.4, Cl 94, bicarb of 21, anion gap 15, BUN of 30, Cr 1.81, with baseline Cr 1.9. Troponin less than 0.012. ProBNP 3970 which is significantly improved from previous BNP of 11,800. COVID PCR, Flu, and RSV were negative. Patient was admitted under our services secondary t o intermittent chest pain and atrial fibrillation with consultation to cardiology. Troponins trended, less than 0.012, 0.012, and less than 0.012. Urinalysis was obtained and was abnormal showing positive for protein, ketones, and leukocytosis with 9 RBCs and 18 WBCs. However, patient did have urinary symptoms. Patient became hypotensive on 02/27. Was transferred to medical ICU. Started on norepinephrine. Continue to remain in atrial fibrillation with RVR. Was also started on Lasix drip. Echocardiogram showed slightly reduced LVEF of 40% with global hypokinesis, moderate aortic insufficiency. She had ARCADIO and cardioversion on 03/02, now converted to sinus rhythm. Lasix drip transitioned to IV push 03/03, then later transitioned to oral Bumex. Respiratory function worsen. CXR shows complete opacification of the right lung and pulmonary vascular congestion. Concerns for mucus plugging. Antibiotics escalated to Vancomycin and Cefepime. Off pressors. Patient on and off with BiPAP, transitioned to high flow nasal cannula occasionally, however, oxygen requirements still high. Back on IV lasix. Bronchoscopy showed tracheobronchomalacia, extensive mucus plugging, therapeutic airway suctioning and bronchial lavage done. Continue antibiotic course. Overall respiratory function improving. Now on nasal cannula 3 L. Patient would be okay with following palliative care outpatient. Patient is out of the ICU. Pt was accepted to [facility] for subacute rehab placement, however she began to have worsening renal function and elevating white blood cell count. Physical exam: Patient seen and examined at bedside. No acute events overnight. Continues to have chest congestion. Vital signs reviewed and stable. General: Nontoxic, no distress and appears stated age. Derm: Skin warm and dry, normal coloration for ethnicity. Head: Atraumatic, normocephalic and symmetric. Eyes: EOMs intact, no lid lag, and anicteric sclera Mouth: no lip lesions, mucus membranes moist Cardiovascular: regular rate and rhythm with normal S1S2, no murmur, positive posterior tibial pulses bilaterally, and cap refill < 2 seconds. Lungs: Bilateral rhonchi, no accessory muscle use, supplemental oxygen Abdominal: soft, nontender to palpation, no guarding, no appreciable organomegaly Ext: ROM intact. No gross muscle atrophy, no edema, no contractures Neuro: Speech clear, face symmetrical and CN II-XII grossly intact with no noted focal neuro deficits Psych: Alert and oriented to person, place, time, and situation. Appropriate and pleasant affect. Assessment and Plan of Care: Patient is critically ill, prognosis guarded Leukocytosis, slightly improving -Patient has completed an extended course of IV antibiotics, and is now having worsening leukocytosis with no signs of acute infection at this time. We will hold off on further initiation of antibiotics while placing additional orders and pending these results. Acute on chronic renal failure, improving -Nephrology note reviewed, repeat 40 IV Lasix today -Continue close monitoring of I/Os -Repeat BMP and magnesium tomorrow Acute on chronic hypoxic respiratory failure, improved back near baseline respiratory status. Sepsis secondary to bacterial pneumonia, resolved. Acute COPD exacerbation History of interstitial pulmonary fibrosis -Pulmonology following -Patient to continue prednisone, decrease to 30 mg daily -Continue budesonide/formoterol 2 puffs twice daily. -Continue Duonebs scheduled 3 times daily and as needed for shortness of breath and/or wheezing. -Status post extended course of antibiotics Cardiogenic shock, resolved Acute on chronic diastolic and systolic CHF, EF 40% Paroxysmal atrial fibrillation with RVR, s/p cardioversion, now maintaining sinus mechanism History of CAD with stenting -Off of vasopressors -Continue Lasix 40mg PO daily, received 40 mg IV Lasix today, monitor electrolytes and renal function -Continue close monitoring of I/Os, daily weights -Continue Amiodarone 100 mg daily, metoprolol 50mg BID, Eliquis 2.5 mg BID, atorvastatin 20 mg daily, Farxiga 10 mg daily and midodrine 10 mg 4 times daily. -Cardiology following, considering right heart cath Hypothyroidism TSH normal findings at 0.471. Continue daily medication regimen with levothyroxine 75 g daily. Hypokalemia, resolved Hypomagnesemia, resolved Data and imaging reviewed: -WBC 27.7, hemoglobin 9.7, potassium 4, creatinine 2.07, magnesium 2.6 CODE STATUS: Full code DVT prophylaxis: Eliquis Anticipated discharge date: Anticipate possible discharge in the next [address]: longterm facility for rehab Objective - Vital Signs Vital signs: Vital Signs Temp 98.3 F 03/17/23 09:25 Pulse 52 L 03/17/23 09:25 Resp 22 03/17/23 09:25 BP 108/72 03/17/23 09:25 Pulse Ox 92 L 03/17/23 09:25 FiO2 10 03/11/23 07:00 Intake & Output 03/16/23 03/17/23 03/17/23 18:59 06:59 18:59 Intake Total 686 Output Total 800 600 100 Balance -114 -600 -100 Weight 81 kg 74.3 kg Intake: IV 10 Invasive Line 10 10 Oral 676 Output: Urine 800 600 100 Other: Voiding Method External Catheter External Catheter # Bowel Movements 1 - Labs CBC & Chem 7: 03/17/23 08:43 03/17/23 08:43 Labs: Abnormal Lab Results - Last 24 Hours (Table) 03/16/23 03/16/23 03/17/23 Range/Units 09:35 18:00 08:43 WBC 27.7 H (3.8-10.6) k/uL RBC 3.18 L (3.80-5.40) m/uL Hgb 9.7 L D (11.4-16.0) gm/dL Hct 30.1 L (34.0-46.0) % RDW 17.1 H (11.5-15.5) % Carbon Dioxide (22-30) mmol/L BUN (7-17) mg/dL Creatinine (0.52-1.04) mg/dL Magnesium (1.6-2.3) mg/dL ALT (4-34) U/L Procalcitonin 0.24 H (0.02-0.09) ng/mL Urine Appearance Slightly Cloudy H (Clear) Urine Protein 1+ H (Negative) Urine Glucose (UA) 3+ H (Negative) Urine Blood Large H (Negative) Ur Leukocyte Esterase Small H (Negative) Urine RBC 177 H (0-5) /hpf 03/17/23 Range/Units 08:43 WBC (3.8-10.6) k/uL RBC (3.80-5.40) m/uL Hgb (11.4-16.0) gm/dL Hct (34.0-46.0) % RDW (11.5-15.5) % Carbon Dioxide 31 H (22-30) mmol/L BUN 93 H (7-17) mg/dL Creatinine 2.07 H (0.52-1.04) mg/dL Magnesium 2.6 H (1.6-2.3) mg/dL ALT 36 H (4-34) U/L Procalcitonin (0.02-0.09) ng/mL Urine Appearance (Clear) Urine Protein (Negative) Urine Glucose (UA) (Negative) Urine Blood (Negative) Ur Leukocyte Esterase (Negative) Urine RBC (0-5) /hpf
[2023-03-17] MEDS ORDERED: MIDAZOLAM 2 MG/2 ML VIAL IVP ONE (13:25)
[2023-03-17] MEDS ORDERED: fentaNYL (PF) 50 MCG/ML 2 ML AMP IVP ONE (13:25)
[2023-03-17] MEDS ORDERED: LIDOCAINE 1% INJ 10MG/ML (30 ML VIAL-PF) SQ ONE (13:28)
[2023-03-17] MEDS ORDERED: SODIUM CHLORIDE 0.9% 500 ML 500 ML IV ONE (13:31)
--- NOTE | 2023-03-17 14:03 | P.PN ---
Subjective Progress Note Date: 03/17/23 Principal diagnosis: Acute on chronic hypoxic respiratory failure, multifactorial secondary to acute on chronic diastolic congestive heart failure, underlying COPD, with acute exac erbation This is a pleasant 67-year-old female who is had multiple readmissions to the hospital. 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 She had been on the selective care unit. Today she developed hypotension, atrial fibrillation with a rapid ventricular response increasing shortness of breath cough and congestion and was transferred to the intensive care unit. She is seen today in consultation. She is quite weak and debilitated. Her daughter is at the bedside. She is currently maintaining O2 saturations in the upper 90s on 2 L/m per nasal cannula. Blood pressure 80/50. Heart rate 109. Afebrile. Chest x- ray reveals moderate cardiomegaly with diffuse interstitial infiltrates. Count 8.2. Hemoglobin 12.0. Platelets 239. Sodium 137. Potassium 3.5. Bicarb 25. BUN 31. Creatinine 1.78. Glucose 112. Urinalysis cloudy with moderate blood and large leukocyte esterase and high WBCs with many bacteria. She is currently on DuoNeb inhalations, Symbicort, Singulair and ceftriaxone. Anticoagulation on hold for possible heart catheterization tomorrow. Patient was reevaluated today on 02/28/23 patient is still in the ICU, I saw her yesterday, overnight the patient had worsening atrial fibrillation with RVR, remains poorly controlled, she required norepinephrine last night but this was discontinued this morning. Patient developed worsening congestive heart failure with interstitial edema as noted on the chest x-ray today, hence I recommended that we start the patient on Lasix drip at 10 mg per hour cut down her IV fluid to KVO, continue patient on ceftriaxone since the Procrit started level is 0.26 today my clinical suspicion for pneumonia is rather low, but it is hard to tell based on the chest x-ray findings since the chest x-ray is showing mostly bi lateral interstitial edema. Patient seems to be comfortable, she is not in distress, she is on 3 L nasal cannula but on physical examination she had significant crackles or rhonchi and wheezes bilaterally. And hoping the Lasix drip will improve her pulmonary symptoms WBC count today is 10.5 hemoglobin is 11.4 basic metabolic profile is normal BUN is 27 creatinine 1.75, pro-calcitonin level is 0.26, patient is empirically on Rocephin. 03/12/2023, the patient is feeling much better. She underwent bronchoscopy and therapeutic airway suctioning and copious amounts blister secretions were sucti oned out. Following that, there was significant improvement in oxygenation. This morning, the patient is down to 4 L of O2 nasal cannula. Her pulse ox is 97%. Cough is less congested. The sputum was sent for culture analysis and is also still pending for now. Chest x-ray findings are stable. The patient was switched to oral Lasix and the patient has a slight rise in the creatinine which is up to 2.12. Cardiology noted that in the switched him to Lasix 40 mg by mouth twice a day. The white cycles of 19.1, hemoglobin 9.5, BUN is at 86 with a creatinine of 2.1 and his sodium level is at 138. She feels significantly improved compared to yesterday. At the same time, she remains on bron chodilators. She remains on IV cefepime. She is also on anticoagulation with Eliquis. Cardiac rhythm is sinus bradycardia. The patient remains on amiodarone. She remains on metoprolol 50 mg by mouth twice a day. She is using the incentive spirometer. She is tolerating her diet. She is in much better condition. Note that the bronchoscopy showed significant amount of tracheobronchomalacia. The bronchial alveolar lavage was sent for microbial cultures and there is also still pending for now. On 03/13/2023, the patient is on 3 L of oxygen by nasal cannula, calm and comfortable and she denies having any specific complaints. Her night was uneventful. She still on diuretics. She was switched to oral Lasix. Her cardiac rhythm is sinus any cardio. Amiodarone dose was adjusted by cardiology. Meanwhile, her white cell count of 18, hemoglobin is at 9.2 with a platelet count of 248. Urine is 98 with a creatinine of 2 and a sodium level is at 138. Fluid balance is in order of -2.1 L over the past 24 hours. Otherwise, she is tolerating diet, she is awake and alert and she is also communicating. I'm still awaiting the cultures from the bronchial alveolar lavage was sent earlier. The patient remains on IV cefepime and she completed her last those last night. She is on bronchodilators and she is on anticoagulation. She is also on IV Solu-Medrol which is going to be tapered down to 40 mg every 12 hours. 03/14/2023, the patient remains on 3-4 L. Doing well. Cough and congestion is subsided. Awaiting the results of the bronchial lavage and the microbial cultures and analysis. No specific complaints. Using the incentive spirometer. Remains on Lasix 40 mg by mouth daily. Remains on anticoagulation with Eliquis. Remains on bronchodilators. White cell count is at 21, hemoglobin was at 9, BUN is at 107 with a creatinine of 2.3 and a sodium levels of 136. Patient was reevaluated today on 03/15/2023, patient is still having significant pulmonary symptoms with intermittent cough and wheezing. Chest x-ray continues to show significant interstitial edema, diffuse interstitial opacities are worsening compared to the last few days, and on physical examination she has diffuse crackles and rhonchi bilaterally. Patient is on 4 L nasal cannula with O2 sats is 97%, surprisingly does not seem to be clinically in distress as expected based on the chest x-ray findings and based on the physical findings/pulmonary examination. Nonetheless I did recommend Lasix 40 mg IV push to be given. Sputum cultures/BAL cultures are still pending patient is developing worsening leukocytosis was W7 23.6 hemoglobin 8.9, BUN today is 106 creatinine 2.45. Patient remains on bronchodilators, remains on diuretics, presently off antibiotics patient is also on amiodarone at 100 mg by mouth daily and she is on eliquis. Patient was reevaluated today on 03/16/2023, patient is feeling better today, breathing easier, she remains on diuretics, yesterday I gave her an extra dose of Lasix because she was sounding quite wet. Patient is on 4 L nasal cannula, not in distress, however her white count seems to be on the rise up to 30.3 with hemoglobin of 8 electrolytes are normal and BUN is 96 creatinine 2.30 actually better than yesterday in spite of the extra dose of Lasix given yesterday. Chest x-ray today showed improvement in her interstitial edema but not completely resolved Reevaluated today on 03/17/2023, patient is scheduled to undergo cardiac catheterization today, she was cleared for cardiac catheterization by nephrology and she did receive a dose of Lasix earlier today by nephrology as the patient seems to be in congestive heart failure again. Patient is maintained on Lasix at 40 mg daily, but intermittently we have been giving her an extra dose of La six and I believe the patient should go back to her maintenance dose of Lasix which is 40 mg twice a day and she has been on this dose for a long time. Otherwise the patient will continue to have episodes of congestive heart failure. Her FiO2 requirement went up to 5 L nasal cannula, and O2 saturations remains marginal at 91% at best. Blood pressure is also marginal with systolic of 94 and diastolic of 68. All x-rays recently have demonstrated evidence of congestive heart failure Objective - Vital Signs Vital signs: Vital Signs Temp 98.4 F 03/17/23 12:00 Pulse 66 03/17/23 12:00 Resp 22 03/17/23 09:25 BP 94/68 03/17/23 12:00 Pulse Ox 91 L 03/17/23 12:00 FiO2 10 03/11/23 07:00 Intake & Output 03/16/23 03/17/23 03/17/23 18:59 06:59 18:59 Intake Total 686 Output Total 800 600 100 Balance -114 -600 -100 Weight 81 kg 74.3 kg Intake: IV 10 Invasive Line 10 10 Oral 676 Output: Urine 800 600 100 Other: Voiding Method External Catheter External Catheter External Catheter # Voids 1 # Bowel Movements 1 - Exam Physical Exam: Revealed a 67-year-old female in no distress on 5 L nasal cannula HEENT:[Neck is supple.] [No neck masses.] [No thyromegaly.] [No JVD.] Chest: Crackles and rhonchi noted bilaterally. Symmetrical chest expansion.. Cardiac Exam: Irregular irregular rhythm. [Normal S1 and S[Minimal2, no S3 gallop,3/6 systolic murmur thought the precordium Abdomen: [Soft, nontender, no megaly, no rebound, no guarding, normal bowel sounds.] Extremities: [No clubbing, trace of bipedal edema, no cyanosis.] Neurological Exam: [No focal neurologic deficit.] Alert and oriented 3. Psychiatric: Normal mood, affect and normal mental status examination Skin: No rashes - Labs CBC & Chem 7: 12/13/23 08:43 03/17/23 08:43 Labs: Abnormal Lab Results - Last 24 Hours (Table) 03/16/23 03/16/23 03/17/23 Range/Units 09:35 18:00 08:43 WBC 27.7 H (3.8-10.6) k/uL RBC 3.18 L (3.80-5.40) m/uL Hgb 9.7 L D (11.4-16.0) gm/dL Hct 30.1 L (34.0-46.0) % RDW 17.1 H (11.5-15.5) % Carbon Dioxide (22-30) mmol/L BUN (7-17) mg/dL Creatinine (0.52-1.04) mg/dL Magnesium (1.6-2.3) mg/dL ALT (4-34) U/L Procalcitonin 0.24 H (0.02-0.09) ng/mL Urine Appearance Slightly Cloudy H (Clear) Urine Protein 1+ H (Negative) Urine Glucose (UA) 3+ H (Negative) Urine Blood Large H (Negative) Ur Leukocyte Esterase Small H (Negative) Urine RBC 177 H (0-5) /hpf 03/17/23 Range/Units 08:43 WBC (3.8-10.6) k/uL RBC (3.80-5.40) m/uL Hgb (11.4-16.0) gm/dL Hct (34.0-46.0) % RDW (11.5-15.5) % Carbon Dioxide 31 H (22-30) mmol/L BUN 93 H (7-17) mg/dL Creatinine 2.07 H (0.52-1.04) mg/dL Magnesium 2.6 H (1.6-2.3) mg/dL ALT 36 H (4-34) U/L Procalcitonin (0.02-0.09) ng/mL Urine Appearance (Clear) Urine Protein (Negative) Urine Glucose (UA) (Negative) Urine Blood (Negative) Ur Leukocyte Esterase (Negative) Urine RBC (0-5) /hpf Assessment and Plan Assessment: Impression: Acute on chronic hypoxic respiratory failure, multifactorial Acute on chronic systolic congestive heart failure Acute exacerbation of COPD Underlying pneumonia is not entirely ruled out but felt to be less likely, patient had a bronchoscopy and BAL, cultures are pending Atrial fibrillation with RVR Recent urinary tract infection secondary to Klebsiella pneumoniae, has been treated History of DVT and pulmonary embolism Chronic cor pulmonale Chronic kidney disease stage III Coronary arteriosclerosis and previous stent placement Recommendation: Patient is scheduled to have cardiac catheterization today Continue diuretics .strongly recommended increasing the dose of Lasix to 40 mg twice a day Continue amiodarone Continue bronchodilators including Symbicort and DuoNeb Decrease prednisone to 30 mg daily CODE STATUS is full code. Continue to monitor daily labs Prognosis is poor and guarded Not quite ready for any discharge planning We will continue to follow Time with Patient: Less than 30
[2023-03-17] MEDS ORDERED: HYDROmorphone 0.5 MG/0.5 ML SYRINGE IVP ONE (14:06)
--- NOTE | 2023-03-17 14:08 | P.PCN ---
Date of Procedure: 03/17/23 Operative Findings: Right heart catheterization Performing physician Pola Stockton M.D. Procedure performed Right heart catheterization Ultrasound-guided access of the right common femoral vein Indication Acute hypoxic respiratory failure in this 67-year-old female patient who developed renal failure. The right heart catheterization is to assess her filling pressures and the need for diuretics. Approach Right common femoral vein Complication None Level of sedation Moderate sedation length of 32 minutes Procedure description After obtaining an informed consent the patient was brought to the cardiac photo lab specialist. The right common femoral vein was cannulated using micropuncture technique under ultrasound guidance the micro-rupture wire passed easily then I placed a 6-Austrian 11 cm sheath initially which was exchanged after that into 23 cm sheath for better support. After that I attempted advancing Berkshire catheter which was initially 6-Austrian is 1. To the right ventricle but the catheter would not cross the tricuspid valve. After that I was able to cross using a 7-Austrian Berkshire catheter which was advanced to the pulmonary capillary wedge position then I did pulled back across. The procedure was completed was no complication Hemodynamics 1. The mean pulmonary capillary wedge pressure was 25 mmHg 2. The pulmonary artery pressures were as follow systolic at 44 and diastolic of 23 and mean of 31 mmHg 3. RV pressures as follow systolic of 43 and end-diastolic of 15 mmHg 4. The mean RA pressure was 11 mmHg 5. The transpulmonary gradient was 6 mmHg Conclusion 1. Elevated biventricular filling pressure 3. Pulmonary hypertension likely related to WHO group 3 and group 2 pulmonary hypertension
[2023-03-17] MEDS: IPRATROPIUM-ALBUTEROL 3 ML NEB INHALATION PRN (15:30)
[2023-03-17] MEDS: HYDROcodone/APAP 5-325MG 1 EACH TAB PO PRN (16:34)
[2023-03-17] MEDS: LIDOCAINE 4% PATCH TOPICAL SCH (17:27)
[2023-03-17] MEDS: polyethylene glycoL 3350 17 GM POWD.PACK PO SCH (17:27)
[2023-03-17] MEDS: ATORVASTATIN 20 MG TAB PO SCH (20:22)
[2023-03-17] MEDS: SERTRALINE 100 MG TAB PO SCH (20:22)
[2023-03-17] MEDS: ACETAMINOPHEN TAB 325 MG TAB PO PRN (20:22)
[2023-03-18] MEDS: HYDROcodone/APAP 5-325MG 1 EACH TAB PO PRN ×3 (00:09→17:54)
[2023-03-18] MEDS: BUMETANIDE 0.25 MG/ML 10 ML VIAL IV SCH ×2 (01:42→11:19)
[2023-03-18] MEDS: LEVOTHYROXINE 75 MCG TAB PO SCH (06:28)
--- NOTE | 2023-03-18 07:44 | XR ---
EXAMINATION TYPE: XR chest 1V DATE OF EXAM: 03/18/2023 HISTORY: Shortness of breath. COMPARISON: 03/16/2023 TECHNIQUE: Single view of the chest is submitted. FINDINGS: Scattered reticulonodular infiltrates persist without significant change. There is no evidence for focal infiltrate. The heart is stable. Hilar and mediastinal structures are within normal limits. Degenerative changes are seen of the dorsal spine. IMPRESSION: 1. Scattered reticulonodular infiltrates persist without significant change.
[2023-03-18] MEDS: BUDESONIDE 1 MG/2 ML NEBU INHALATION SCH ×2 (08:32→20:59)
[2023-03-18] MEDS: FORMOTEROL FUMARATE 20 MCG/2 ML NEBU INHALATION SCH ×2 (08:32→20:59)
[2023-03-18] MEDS: IPRATROPIUM-ALBUTEROL 3 ML NEB INHALATION SCH ×3 (08:32→20:59)
[2023-03-18 08:46] LABS: Anisocytosis Slight; Basophils % (A) 0 %; Eosinophils # (A) 0.1 k/uL (0-0.7); Eosinophils % (A) 0 %; HCT 32.1 % (34.0-46.0); HGB 10.5 gm/dL (11.4-16.0); Hypochromasia Slight; Lymphocytes # (A) 1.3 k/uL (1.0-4.8); Lymphocytes % (A) 6 %; MCH 30.8 pg (25.0-35.0); MCHC 32.5 g/dL (31.0-37.0); MCV 94.6 fL (80.0-100.0); Mean Platelet Volume 8.2; Monocytes # (A) 0.8 k/uL (0-1.0); Monocytes % (A) 3 %; Neutrophils # (A) 20.6 k/uL (1.3-7.7); Neutrophils % (A) 90 %; Platelet Count 234 k/uL (150-450); RDW 17.2 % (11.5-15.5); WBC 22.8 k/uL (3.8-10.6)
[2023-03-18 09:03] LABS: African American GFR (CKD) 26 (>60 ml/min/1.73 sqM); Anion Gap 9 mmol/L; Blood Urea Nitrogen 100 mg/dL (7-17); Calcium 8.6 mg/dL (8.4-10.2); Carbon Dioxide 33 mmol/L (22-30); Chloride 95 mmol/L (98-107); Glucose 83 mg/dL (74-99); Magnesium 2.5 mg/dL (1.6-2.3); Non-African American GFR(CKD) 22 (>60 ml/min/1.73 sqM); Potassium 3.6 mmol/L (3.5-5.1); Sodium 137 mmol/L (137-145)
[2023-03-18] MEDS: GABAPENTIN 100 MG CAP PO SCH ×3 (09:21→21:47)
[2023-03-18] MEDS: APIXABAN 2.5 MG TABLET PO SCH ×2 (09:21→20:21)
[2023-03-18] MEDS: DOCUSATE 100 MG CAP PO SCH (09:21)
[2023-03-18] MEDS: predniSONE 10 MG TAB PO SCH (09:21)
[2023-03-18] MEDS: METOPROLOL TARTRATE 50 MG TAB PO SCH ×2 (09:21→20:21)
[2023-03-18] MEDS: MIDODRINE 5 MG TAB PO SCH ×4 (09:22→21:47)
[2023-03-18] MEDS: polyethylene glycoL 3350 17 GM POWD.PACK PO SCH (09:23)
[2023-03-18] MEDS: DAPAGLIFLOZIN PROPANEDIOL 10 MG TABLET PO SCH (09:23)
[2023-03-18] MEDS: PANTOPRAZOLE 40 MG/10 ML VIAL IVP SCH (09:23)
[2023-03-18] MEDS ORDERED: POTASSIUM CHLORIDE ER 20 MEQ TAB.ER PO STA (10:43)
--- NOTE | 2023-03-18 10:44 | P.PN ---
Subjective Patient is seen in follow-up for chronic kidney disease. Renal function fairly stable. Nonoliguric. On IV Bumex per cardiology. Denies chest pain or shortness of breath. Family present at bedside. Currently on 2 L cannula. Vital signs are stable. General: No acute distress. HEENT: Head exam is unremarkable. On nasal cannula. LUNGS: Scattered rhonchi. HEART: Rate and Rhythm are regular. ABDOMEN: Nontender. EXTREMITITES: No edema. Objective - Vital Signs Vital signs: Vital Signs Temp 97.9 F 03/18/23 07:59 Pulse 64 03/18/23 09:01 Resp 18 03/18/23 07:59 BP 122/73 03/18/23 07:59 Pulse Ox 100 03/18/23 08:35 FiO2 10 03/11/23 07:00 Intake & Output 03/17/23 03/18/23 03/18/23 18:59 06:59 18:59 Intake Total 480 180 Output Total 100 400 300 Balance -100 80 -120 Intake: Oral 480 180 Output: Urine 100 400 300 Stool 0 Other: Voiding Method External Catheter External Catheter # Voids 1 1 # Bowel Movements 1 1 - Labs CBC & Chem 7: 03/18/23 08:14 03/18/23 08:14 Labs: Abnormal Lab Results - Last 24 Hours (Table) 03/18/23 03/18/23 Range/Units 08:14 08:14 WBC 22.8 H (3.8-10.6) k/uL RBC 3.40 L (3.80-5.40) m/uL Hgb 10.5 L (11.4-16.0) gm/dL Hct 32.1 L (34.0-46.0) % RDW 17.2 H (11.5-15.5) % Neutrophils # 20.6 H (1.3-7.7) k/uL Chloride 95 L (98-107) mmol/L Carbon Dioxide 33 H (22-30) mmol/L BUN 100 H (7-17) mg/dL Creatinine 2.22 H (0.52-1.04) mg/dL Magnesium 2.5 H (1.6-2.3) mg/dL Assessment and Plan Plan: Assessment: 1. Chronic kidney disease stage IV with baseline creatinine near 2 secondary to cardiorenal syndrome and nephrosclerosis. Atrophic kidneys noted on renal ultrasound done January 2023. Renal function worsened from diuresis - creatinine 2.22 today. BUN partially elevated from steroids - trending down. 2. A. fib with RVR maintained on amiodarone and Lopressor. Status post cardioversion and ARCADIO. 3. Hypotension s/p Levophed. On midodrine. 4. Hypervolemic hyponatremia. Stable. 5. Hypokalemia from diuresis. 6. Acute on chronic systolic CHF with ejection fraction of 40% with moderate aortic insufficiency. Pulmonary hypertension noted on right heart cath. 7. History of coronary artery disease with cardiac stenting. 8. Volume overload. Improved with diuresis. 9. Hypomagnesemia from diuresis. Replaced. Improved. 10. Anemia of chronic kidney disease. Iron replete. On Aranesp. Plan: Maintain IV Bumex for now. On farxiga. Replace potassium. Maintain midodrine. Hold for systolic blood pressure greater than 110. Avoid nephrotoxins. Continue to monitor renal function and urine output. Cortisol level not low. Discussed in detail with patient's daughter this admission regarding monitoring volume status closely upon discharge. Advised to maintain low salt diet and fluid restriction of less than 50 ounces per day. Advised to monitor her weight closely at home and notify physician if develops edema or gains more than 3-4 pounds in one week duration.
[2023-03-18] MEDS: AMIODARONE 100 MG TAB PO SCH (11:19)
[2023-03-18] MEDS: LIDOCAINE 4% PATCH TOPICAL SCH (13:27)
--- NOTE | 2023-03-18 13:37 | P.PN ---
Subjective Progress Note Date: 03/18/23 Principal diagnosis: Acute on chronic hypoxic respiratory failure, multifactorial secondary to acute on chronic diastolic congestive heart failure, underlying COPD, with acute exac erbation This is a pleasant 67-year-old female who is had multiple readmissions to the hospital. 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 She had been on the selective care unit. Today she developed hypotension, atrial fibrillation with a rapid ventricular response increasing shortness of breath cough and congestion and was transferred to the intensive care unit. She is seen today in consultation. She is quite weak and debilitated. Her daughter is at the bedside. She is currently maintaining O2 saturations in the upper 90s on 2 L/m per nasal cannula. Blood pressure 80/50. Heart rate 109. Afebrile. Chest x- ray reveals moderate cardiomegaly with diffuse interstitial infiltrates. Count 8.2. Hemoglobin 12.0. Platelets 239. Sodium 137. Potassium 3.5. Bicarb 25. BUN 31. Creatinine 1.78. Glucose 112. Urinalysis cloudy with moderate blood and large leukocyte esterase and high WBCs with many bacteria. She is currently on DuoNeb inhalations, Symbicort, Singulair and ceftriaxone. Anticoagulation on hold for possible heart catheterization tomorrow. Patient was reevaluated today on 02/28/23 patient is still in the ICU, I saw her yesterday, overnight the patient had worsening atrial fibrillation with RVR, remains poorly controlled, she required norepinephrine last night but this was discontinued this morning. Patient developed worsening congestive heart failure with interstitial edema as noted on the chest x-ray today, hence I recommended that we start the patient on Lasix drip at 10 mg per hour cut down her IV fluid to KVO, continue patient on ceftriaxone since the Procrit started level is 0.26 today my clinical suspicion for pneumonia is rather low, but it is hard to tell based on the chest x-ray findings since the chest x-ray is showing mostly bi lateral interstitial edema. Patient seems to be comfortable, she is not in distress, she is on 3 L nasal cannula but on physical examination she had significant crackles or rhonchi and wheezes bilaterally. And hoping the Lasix drip will improve her pulmonary symptoms WBC count today is 10.5 hemoglobin is 11.4 basic metabolic profile is normal BUN is 27 creatinine 1.75, pro-calcitonin level is 0.26, patient is empirically on Rocephin. 03/12/2023, the patient is feeling much better. She underwent bronchoscopy and therapeutic airway suctioning and copious amounts blister secretions were sucti oned out. Following that, there was significant improvement in oxygenation. This morning, the patient is down to 4 L of O2 nasal cannula. Her pulse ox is 97%. Cough is less congested. The sputum was sent for culture analysis and is also still pending for now. Chest x-ray findings are stable. The patient was switched to oral Lasix and the patient has a slight rise in the creatinine which is up to 2.12. Cardiology noted that in the switched him to Lasix 40 mg by mouth twice a day. The white cycles of 19.1, hemoglobin 9.5, BUN is at 86 with a creatinine of 2.1 and his sodium level is at 138. She feels significantly improved compared to yesterday. At the same time, she remains on bron chodilators. She remains on IV cefepime. She is also on anticoagulation with Eliquis. Cardiac rhythm is sinus bradycardia. The patient remains on amiodarone. She remains on metoprolol 50 mg by mouth twice a day. She is using the incentive spirometer. She is tolerating her diet. She is in much better condition. Note that the bronchoscopy showed significant amount of tracheobronchomalacia. The bronchial alveolar lavage was sent for microbial cultures and there is also still pending for now. On 03/13/2023, the patient is on 3 L of oxygen by nasal cannula, calm and comfortable and she denies having any specific complaints. Her night was uneventful. She still on diuretics. She was switched to oral Lasix. Her cardiac rhythm is sinus any cardio. Amiodarone dose was adjusted by cardiology. Meanwhile, her white cell count of 18, hemoglobin is at 9.2 with a platelet count of 248. Urine is 98 with a creatinine of 2 and a sodium level is at 138. Fluid balance is in order of -2.1 L over the past 24 hours. Otherwise, she is tolerating diet, she is awake and alert and she is also communicating. I'm still awaiting the cultures from the bronchial alveolar lavage was sent earlier. The patient remains on IV cefepime and she completed her last those last night. She is on bronchodilators and she is on anticoagulation. She is also on IV Solu-Medrol which is going to be tapered down to 40 mg every 12 hours. 03/14/2023, the patient remains on 3-4 L. Doing well. Cough and congestion is subsided. Awaiting the results of the bronchial lavage and the microbial cultures and analysis. No specific complaints. Using the incentive spirometer. Remains on Lasix 40 mg by mouth daily. Remains on anticoagulation with Eliquis. Remains on bronchodilators. White cell count is at 21, hemoglobin was at 9, BUN is at 107 with a creatinine of 2.3 and a sodium levels of 136. Patient was reevaluated today on 03/15/2023, patient is still having significant pulmonary symptoms with intermittent cough and wheezing. Chest x-ray continues to show significant interstitial edema, diffuse interstitial opacities are worsening compared to the last few days, and on physical examination she has diffuse crackles and rhonchi bilaterally. Patient is on 4 L nasal cannula with O2 sats is 97%, surprisingly does not seem to be clinically in distress as expected based on the chest x-ray findings and based on the physical findings/pulmonary examination. Nonetheless I did recommend Lasix 40 mg IV push to be given. Sputum cultures/BAL cultures are still pending patient is developing worsening leukocytosis was W7 23.6 hemoglobin 8.9, BUN today is 106 creatinine 2.45. Patient remains on bronchodilators, remains on diuretics, presently off antibiotics patient is also on amiodarone at 100 mg by mouth daily and she is on eliquis. Patient was reevaluated today on 03/16/2023, patient is feeling better today, breathing easier, she remains on diuretics, yesterday I gave her an extra dose of Lasix because she was sounding quite wet. Patient is on 4 L nasal cannula, not in distress, however her white count seems to be on the rise up to 30.3 with hemoglobin of 8 electrolytes are normal and BUN is 96 creatinine 2.30 actually better than yesterday in spite of the extra dose of Lasix given yesterday. Chest x-ray today showed improvement in her interstitial edema but not completely resolved Reevaluated today on 03/17/2023, patient is scheduled to undergo cardiac catheterization today, she was cleared for cardiac catheterization by nephrology and she did receive a dose of Lasix earlier today by nephrology as the patient seems to be in congestive heart failure again. Patient is maintained on Lasix at 40 mg daily, but intermittently we have been giving her an extra dose of La six and I believe the patient should go back to her maintenance dose of Lasix which is 40 mg twice a day and she has been on this dose for a long time. Otherwise the patient will continue to have episodes of congestive heart failure. Her FiO2 requirement went up to 5 L nasal cannula, and O2 saturations remains marginal at 91% at best. Blood pressure is also marginal with systolic of 94 and diastolic of 68. All x-rays recently have demonstrated evidence of congestive heart failure Patient was reevaluated today on 03/18/2023, patient had right-sided cardiac catheterization yesterday, had a mean pulmonary capillary wedge pressure was noted noted to be 25. Pulmonary artery pressure 44/23, mean of 31, right atrial pressure was 11, clearly the patient had elevated biventricular filling pre ssures and evidence of pulmonary hypertension. Patient is now on Bumex replacing Lasix and her Bumex dose is 2 mg IV push every 12 hours patient remains on midodrine to support her blood pressure, and overall she seems to be doing a bit better, nonetheless clinically she still sounds wet, and she is in pulmonary edema patient is on 3 L nasal cannula, O2 sats 91% and blood pressure this morning is 90/59 with a mean of 69 Objective - Vital Signs Vital signs: Vital Signs Temp 97.7 F 03/18/23 11:18 Pulse 62 03/18/23 11:18 Resp 18 03/18/23 11:18 BP 88/58 03/18/23 13:28 Pulse Ox 91 L 03/18/23 11:18 FiO2 10 03/11/23 07:00 Intake & Output 03/17/23 03/18/23 03/18/23 18:59 06:59 18:59 Intake Total 480 360 Output Total 100 400 300 Balance -100 80 60 Intake: Oral 480 360 Output: Urine 100 400 300 Stool 0 Other: Voiding Method External Catheter External Catheter External Catheter # Voids 1 1 # Bowel Movements 1 1 - Exam Physical Exam: Revealed a 67-year-old female in no distress on 3 L nasal cannula HEENT:[Neck is supple.] [No neck masses.] [No thyromegaly.] [No JVD.] Chest: Crackles and rhonchi noted bilaterally Cardiac Exam: Irregular irregular rhythm. [Normal S1 and S[Minimal2, no S3 gallop,3/6 systolic murmur thought the precordium Abdomen: [Soft, nontender, no megaly, no rebound, no guarding, normal bowel sounds.] Extremities: [No clubbing, trace of bipedal edema, no cyanosis.] Neurological Exam: [No focal neurologic deficit.] Alert and oriented 3. Psychiatric: Normal mood, affect and normal mental status examination Skin: No rashes - Labs CBC & Chem 7: 03/18/23 08:14 03/18/23 08:14 Labs: Abnormal Lab Results - Last 24 Hours (Table) 03/18/23 03/18/23 Range/Units 08:14 08:14 WBC 22.8 H (3.8-10.6) k/uL RBC 3.40 L (3.80-5.40) m/uL Hgb 10.5 L (11.4-16.0) gm/dL Hct 32.1 L (34.0-46.0) % RDW 17.2 H (11.5-15.5) % Neutrophils # 20.6 H (1.3-7.7) k/uL Chloride 95 L (98-107) mmol/L Carbon Dioxide 33 H (22-30) mmol/L BUN 100 H (7-17) mg/dL Creatinine 2.22 H (0.52-1.04) mg/dL Magnesium 2.5 H (1.6-2.3) mg/dL Assessment and Plan Assessment: Impression: Acute on chronic hypoxic respiratory failure, multifactorial Acute on chronic systolic congestive heart failure Acute exacerbation of COPD Atrial fibrillation with RVR History of DVT and pulmonary embolism Chronic cor pulmonale Moderate severe pulmonary hypertension Chronic kidney disease stage III Coronary arteriosclerosis and previous stent placement Recommendation: Had a long discussion with the patient today and her as well as her june ayala at bedside. And updated on her condition and her right sided cardiac catheterization findings Continue Bumex, and continue to monitor renal profile Continue midodrine Continue bronchodilators Continue amiodarone Continue oral prednisone and taper on outpatient basis CODE STATUS is full code. Continue to monitor daily labs Prognosis is poor and guarded Not quite ready for any discharge planning We will continue to follow Time with Patient: Less than 30
--- NOTE | 2023-03-18 14:11 | P.PN ---
Subjective Progress Note Date: 03/18/23 Hospital course: Patient is a very pleasant 67-year-old female with a past medical history of chronic hypoxic respiratory failure secondary to COPD on home oxygen at 2 L at all times, CAD with stent, paroxysmal AFib on anticoagulation with Eliquis, HFpEF, hypertension, hyperlipidemia, CKD stage IV, hypothyroidism, and 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 She presented to the emergency department with complaints of generalized weakness, intermittent chest pain, shortness of breath, and a headache. Patient was scheduled for cardiac ablation on 03/05/[address] Stockton. Vital signs showed BP 133/82, HR 118, RR 22, T 98.8F, SpO2 of 99% on room air. EKG showed AFib with RVR at 125 bpm. Chest x-ray showed no acute process. CT head showing no acute process. WBC count 11.4. Coagulation profile showing PT of 13.4, INR 1.3, and D-dimer at 1.97 (chronically elevated). BMP Na 130, K 3.4, Cl 94, bicarb of 21, anion gap 15, BUN of 30, Cr 1.81, with baseline Cr 1.9. Troponin less than 0.012. ProBNP 3970 which is significantly improved from previous BNP of 11,800. COVID PCR, Flu, and RSV were negative. Patient was admitted under our services secondary to intermittent chest pain and atrial fibrillation with consultation to cardiology. Troponins trended, less than 0.012, 0.012, and less than 0.012. Urinalysis was obtained and was abnormal showing positive for protein, ketones, and leukocytosis with 9 RBCs and 18 WBCs. However, patient did have urinary symptoms. Patient became hypotensive on 02/27. Was transferred to medical ICU. Started on norepinephrine. Continue to remain in atrial fibrillation with RVR. Was also started on Lasix drip. Echocardiogram showed slightly reduced LVEF of 40% with global hypokinesis, moderate aortic insufficiency. She had ARCADIO and cardioversion on 03/02, now converted to sinus rhythm. Lasix drip transitioned to IV push 03/03, then later transitioned to oral Bumex. Respiratory function worsen. CXR shows complete opacification of the right lung and pulmonary vascular congestion. Concerns for mucus plugging. Antibiotics escalated to Vancomycin and Cefepime. Off pressors. Patient on and off with BiPAP, transitioned to high flow nasal cannula occasionally, however, oxygen requirements still high. Back on IV lasix. Bronchoscopy showed tracheobronchomalacia, extensive mucus plugging, therapeutic airway suctioning and bronchial lavage done. Continue antibiotic course. Overall respiratory function improving. Now on nasal cannula 3 L. Patient would be okay with following palliative care outpatient. Patient is out of the ICU. She underwent right heart cath pulmonary hypertension likely related to the WHO group 2 and 3. Pt was accepted to [facility] for subacute rehab placement, however she began to have worsening renal function and elevating white blood cell count. Physical exam: Patient seen and examined at bedside. No acute events overnight. Vital signs reviewed and stable. General: Nontoxic, no distress and appears stated age. Derm: Skin warm and dry, normal coloration for ethnicity. Head: Atraumatic, normocephalic and symmetric. Eyes: EOMs intact, no lid lag, and anicteric sclera Mouth: no lip lesions, mucus membranes moist Cardiovascular: regular rate and rhythm with normal S1S2, no murmur, positive posterior tibial pulses bilaterally, and cap refill < 2 seconds. Lungs: Bilateral rhonchi, no accessory muscle use, supplemental oxygen Abdominal: soft, nontender to palpation, no guarding, no appreciable organomegaly Ext: ROM intact. No gross muscle atrophy, no edema, no contractures Neuro: Speech clear, face symmetrical and CN II-XII grossly intact with no noted focal neuro deficits Psych: Alert and oriented to person, place, time, and situation. Appropriate and pleasant affect. Assessment and Plan of Care: Patient is critically ill, prognosis guarded Leukocytosis, slightly improving -Patient has completed an extended course of IV antibiotics, and is now having worsening leukocytosis with no signs of acute infection at this time. We will hold off on further initiation of antibiotics. Acute on chronic renal failure, improving -Nephrology note reviewed, continue Bumex 2 mg IV every 12 hours -Continue close monitoring of I/Os -Repeat BMP and magnesium tomorrow Acute on chronic hypoxic respiratory failure, improved back near baseline respiratory status. Sepsis secondary to bacterial pneumonia, resolved. Acute COPD exacerbation History of interstitial pulmonary fibrosis Pulmonary hypertension -Pulmonology note reviewed, continue prednisone 30 mg daily -Continue budesonide/formoterol 2 puffs twice daily. -Continue Duonebs scheduled 3 times daily and as needed for shortness of breath and/or wheezing. -Status post extended course of antibiotics Cardiogenic shock, resolved Acute on chronic diastolic and systolic CHF, EF 40% Paroxysmal atrial fibrillation with RVR, s/p cardioversion, now maintaining sinus mechanism History of CAD with stenting -Off of vasopressors -On IV Bumex, see above -Continue Amiodarone 100 mg daily, metoprolol 50mg BID, Eliquis 2.5 mg BID, atorvastatin 20 mg daily, Farxiga 10 mg daily and midodrine 10 mg 4 times daily. -Cardiology following -Status post right heart cath Hypothyroidism TSH normal findings at 0.471. Continue daily medication regimen with levothyroxine 75 g daily. Hypokalemia, resolved Hypomagnesemia, resolved Data and imaging reviewed: -WBC 22.8, hemoglobin 10.5, bicarbonate 33, creatinine 2.22, magnesium 2.5 -Chest x-ray is independently interpreted shows interstitial opacities, left greater than left CODE STATUS: Full code DVT prophylaxis: Eliquis Anticipated discharge date: Anticipate possible discharge in the next [address]: custodial facility for rehab Objective - Vital Signs Vital signs: Vital Signs Temp 97.7 F 03/18/23 11:18 Pulse 62 03/18/23 11:18 Resp 18 03/18/23 11:18 BP 88/58 03/18/23 13:28 Pulse Ox 91 L 03/18/23 11:18 FiO2 10 03/11/23 07:00 Intake & Output 03/17/23 03/18/23 03/18/23 18:59 06:59 18:59 Intake Total 480 360 Output Total 100 400 300 Balance -100 80 60 Intake: Oral 480 360 Output: Urine 100 400 300 Stool 0 Other: Voiding Method External Catheter External Catheter External Catheter # Voids 1 1 # Bowel Movements 1 1 - Labs CBC & Chem 7: 03/18/23 08:14 03/18/23 08:14 Labs: Abnormal Lab Results - Last 24 Hours (Table) 03/18/23 03/18/23 Range/Units 08:14 08:14 WBC 22.8 H (3.8-10.6) k/uL RBC 3.40 L (3.80-5.40) m/uL Hgb 10.5 L (11.4-16.0) gm/dL Hct 32.1 L (34.0-46.0) % RDW 17.2 H (11.5-15.5) % Neutrophils # 20.6 H (1.3-7.7) k/uL Chloride 95 L (98-107) mmol/L Carbon Dioxide 33 H (22-30) mmol/L BUN 100 H (7-17) mg/dL Creatinine 2.22 H (0.52-1.04) mg/dL Magnesium 2.5 H (1.6-2.3) mg/dL
--- NOTE | 2023-03-18 14:17 | P.PN ---
Subjective HISTORY OF PRESENT ILLNESS: The patient is 67-year-old female with known history of CAD, paroxysmal atrial fibrillation status post cardioversion, severe COPD who presented with worsening dyspnea. She continues to be on high flow oxygen, in sinus mechanism, feels better. She denies any chest discomfort, dizziness or palpitations. She had evidence of moderate cardiomyopathy. Hemodynamically she is stable, her urinary output has been good. There is no evidence of ventricular tachycardia. March 09: The patient feels better overall, she continues to be in sinus mechanism. Hemodynamically she is stable. She denies any chest discomfort or dizziness. She denies any nausea or vomiting. She has a prior history of COPD and her chest x-ray continues to show bilateral infiltrate. She had a known history of moderate cardiomyopathy. March 10: The patient became hypoxic during the night requiring BiPAP. She is in sinus mechanism with episodes of sinus bradycardia. There is occasional single PVCs but no evidence of atrial fibrillation. She is coughing but no significant sputum. She denies any chest discomfort, dizziness or palpitations. Her urinary output has been stable. She denies any nausea or vomiting. Her chest x-ray shows persistent infiltrate. March 11: The patient feels well this morning, she continues to have mild dyspnea but stable. She denies any chest discomfort, dizziness or palpitations. She continues to be in sinus mechanism with stable blood pressure. Her urinary output is good. She has no nausea or vomiting. March 12: The patient is feeling relatively well this morning she continues to be dyspneic and fatigued. She had bronchoscopy yesterday and removal of mucous plugging and secretions. She continues to be in sinus mechanism with sinus bradycardia. There is no evidence of recurrent atrial fibrillation. Her blood pressure has been stable. She is on no vasopressors. Her urinary output has been stable. Her chest x-ray continues to show bilateral infiltrate. She continues to be on IV Lasix. March 13: She is feeling well this morning, she denies any chest discomfort or dizziness. She is coughing but feels better overall. She denies any nausea or vomiting. She continues to be in sinus mechanism with stable blood pressure. She continues to have some wheezing. She is on oral diuretics. March 14: The patient is feeling better, her breathing is better. She denies any chest discomfort, dizziness or palpitations. She continues to be in sinus mechanism. She appears to be stronger. She has no nausea or vomiting. 03/15/2023 Patient examined this morning at the bedside. Patient denies chest pain or pressure. She continues to report shortness of breath but states it is slightly better compared to yesterday. She remains on supplemental oxygen maintaining oxygen saturation greater than 92%.. She was given a one-time dose of IV Lasix today per pulmonary. Creatinine today 2.45. Blood pressure is stable. Tele metry reveals sinus mechanism. 03/16/2023 Patient examined this morning at the bedside. Family present. She denies chest pain or pressure. She reports SOB that is unchanged. She remains on oral diur etics. Vital signs are stable. 03/18/2023 Patient examined this morning at the bedside. She is status post right-sided heart catheterization revealing elevated biventricular filling pressures and p ulmonary hypertension. Patient is sitting up in the chair at the time of examination. She states her breathing feels slightly improved compared to yesterday. She has been started on IV Bumex 2 mg every 12 hours. Creatinine today 2.22. PHYSICAL EXAM: VITAL SIGNS: Reviewed. GENERAL: Well-developed in no acute distress. NECK: Supple. No JVD or thyromegaly LUNGS: Respirations even and unlabored. Lungs with bilateral rhonchi noted. HEART: Regular rate and rhythm. S1 and S2 heard. Systolic murmur noted EXTREMITIES: Normal range of motion. No clubbing or cyanosis. Peripheral pulses intact. Trace bilateral lower extremity edema ASSESSMENT: Acute hypoxic respiratory failure secondary to combination of CHF, possible pneumonia, and exacerbation of COPD Status post bronchoscopy History of coronary artery disease with previous stenting Paroxysmal atrial fibrillation, currently maintaining sinus mechanism Status post cardioversion with sinus bradycardia Chronic kidney disease Ischemic cardiomyopathy, ejection fraction 40% Valvular heart disease including moderate AI, mild , and mild TR Status post right heart cath revealing elevated biventricular filling pressures and pulmonary hypertension PLAN: Continue current cardiac medications Continue IV diuretics Daily weights, accurate I&O, monitor kidney function Further recommendations pending patient's course Nurse practitioner note has been reviewed by physician. Signing provider agrees with the documented findings, assessment, and plan of care. Objective - Vital Signs Vital signs: Vital Signs Temp 97.9 F 03/18/23 07:59 Pulse 57 L 03/18/23 07:59 Resp 18 03/18/23 07:59 BP 122/73 03/18/23 07:59 Pulse Ox 96 03/18/23 07:59 FiO2 10 03/11/23 07:00 Intake & Output 03/17/23 03/18/23 03/18/23 18:59 06:59 18:59 Intake Total 480 Output Total 100 400 Balance -100 80 Intake: Oral 480 Output: Urine 100 400 Stool 0 Other: Voiding Method External Catheter External Catheter # Voids 1 1 # Bowel Movements 1 1 - Labs CBC & Chem 7: 03/18/23 08:14 03/18/23 08:14 Labs: Abnormal Lab Results - Last 24 Hours (Table) 03/17/23 03/17/23 Range/Units 08:43 08:43 WBC 27.7 H (3.8-10.6) k/uL RBC 3.18 L (3.80-5.40) m/uL Hgb 9.7 L D (11.4-16.0) gm/dL Hct 30.1 L (34.0-46.0) % RDW 17.1 H (11.5-15.5) % Carbon Dioxide 31 H (22-30) mmol/L BUN 93 H (7-17) mg/dL Creatinine 2.07 H (0.52-1.04) mg/dL Magnesium 2.6 H (1.6-2.3) mg/dL ALT 36 H (4-34) U/L
[2023-03-18] MEDS: SERTRALINE 100 MG TAB PO SCH (20:21)
[2023-03-18] MEDS: ATORVASTATIN 20 MG TAB PO SCH (20:21)
[2023-03-19] MEDS: BUMETANIDE 0.25 MG/ML 10 ML VIAL IV SCH ×3 (00:55→23:10)
[2023-03-19] MEDS: LEVOTHYROXINE 75 MCG TAB PO SCH (06:06)
[2023-03-19] MEDS: BUDESONIDE 1 MG/2 ML NEBU INHALATION SCH (08:22)
[2023-03-19] MEDS: FORMOTEROL FUMARATE 20 MCG/2 ML NEBU INHALATION SCH (08:22)
[2023-03-19] MEDS: IPRATROPIUM-ALBUTEROL 3 ML NEB INHALATION SCH ×3 (08:22→21:07)
[2023-03-19 08:36] LABS: Anisocytosis Slight; Basophils % (A) 0 %; Eosinophils # (A) 0.1 k/uL (0-0.7); Eosinophils % (A) 0 %; HCT 32.7 % (34.0-46.0); HGB 10.6 gm/dL (11.4-16.0); Hypochromasia Slight; Lymphocytes # (A) 1.6 k/uL (1.0-4.8); Lymphocytes % (A) 6 %; MCH 31.1 pg (25.0-35.0); MCHC 32.6 g/dL (31.0-37.0); MCV 95.6 fL (80.0-100.0); Macrocytosis Slight; Mean Platelet Volume 8.2; Monocytes # (A) 0.7 k/uL (0-1.0); Monocytes % (A) 3 %; Neutrophils # (A) 23.4 k/uL (1.3-7.7); Neutrophils % (A) 91 %; Platelet Count 180 k/uL (150-450); RBC 3.42 m/uL (3.80-5.40); RDW 17.3 % (11.5-15.5); WBC 25.9 k/uL (3.8-10.6)
[2023-03-19 08:56] LABS: African American GFR (CKD) 24 (>60 ml/min/1.73 sqM); Anion Gap 13 mmol/L; Blood Urea Nitrogen 91 mg/dL (7-17); Calcium 8.9 mg/dL (8.4-10.2); Carbon Dioxide 30 mmol/L (22-30); Chloride 95 mmol/L (98-107); Glucose 131 mg/dL (74-99); Magnesium 2.2 mg/dL (1.6-2.3); Non-African American GFR(CKD) 21 (>60 ml/min/1.73 sqM); Potassium 4.4 mmol/L (3.5-5.1); Sodium 138 mmol/L (137-145)
[2023-03-19] MEDS: METOPROLOL TARTRATE 50 MG TAB PO SCH ×2 (09:06→19:49)
[2023-03-19] MEDS: GABAPENTIN 100 MG CAP PO SCH ×3 (09:06→19:49)
[2023-03-19] MEDS: predniSONE 10 MG TAB PO SCH (09:06)
[2023-03-19] MEDS: DAPAGLIFLOZIN PROPANEDIOL 10 MG TABLET PO SCH (09:06)
[2023-03-19] MEDS: MIDODRINE 5 MG TAB PO SCH ×4 (09:06→19:49)
[2023-03-19] MEDS: DOCUSATE 100 MG CAP PO SCH (09:06)
[2023-03-19] MEDS: PANTOPRAZOLE 40 MG/10 ML VIAL IVP SCH (09:07)
[2023-03-19] MEDS: AMIODARONE 100 MG TAB PO SCH (09:07)
[2023-03-19] MEDS: polyethylene glycoL 3350 17 GM POWD.PACK PO SCH (09:07)
[2023-03-19] MEDS: APIXABAN 2.5 MG TABLET PO SCH ×2 (09:07→19:49)
--- NOTE | 2023-03-19 10:04 | XR ---
EXAMINATION TYPE: XR chest 1V portable DATE OF EXAM: 03/19/2023 7:56 AM CLINICAL INDICATION:Female, 67 years old with history of chf; [facility] COMPARISON: Chest radiographs from 03/18/2023. TECHNIQUE: XR chest 1V portable Frontal view of the chest. FINDINGS: Lungs/Pleura: There is no evidence of pleural effusion, focal consolidation, or pneumothorax. Pulmonary vascularity: Pulmonary vascular congestion. Heart/mediastinum: Cardiomediastinal silhouette is enlarged and stable. Musculoskeletal: No acute osseous pathology. Other findings: None Lines/Tubes: IMPRESSION: Similar Cardiomegaly and mild pulmonary vascular congestion. Correlate with BNP for congestive heart failure.
--- NOTE | 2023-03-19 10:07 | P.PN ---
Subjective Patient is seen in follow-up for chronic kidney disease. Renal function fairly stable. Nonoliguric. On IV Bumex per cardiology. Denies chest pain or shortness of breath. Family present at bedside. Currently on 2 L cannula. Vital signs are stable. General: No acute distress. HEENT: Head exam is unremarkable. On nasal cannula. LUNGS: Scattered rhonchi. HEART: Rate and Rhythm are regular. ABDOMEN: Nontender. EXTREMITITES: No edema. Objective - Vital Signs Vital signs: Vital Signs Temp 97.9 F 03/19/23 08:58 Pulse 64 03/19/23 08:58 Resp 18 03/19/23 08:58 BP 80/58 03/19/23 08:58 Pulse Ox 94 L 03/19/23 08:58 FiO2 10 03/11/23 07:00 Intake & Output 03/18/23 03/19/23 03/19/23 18:59 06:59 18:59 Intake Total 540 0 236 Output Total 300 1200 Balance 240 -1200 236 Intake: Oral 540 0 236 Output: Urine 300 1200 Other: Voiding Method External Catheter External Catheter - Labs CBC & Chem 7: 03/19/23 07:49 03/19/23 07:49 Labs: Abnormal Lab Results - Last 24 Hours (Table) 03/19/23 03/19/23 Range/Units 07:49 07:49 WBC 25.9 H (3.8-10.6) k/uL RBC 3.42 L (3.80-5.40) m/uL Hgb 10.6 L (11.4-16.0) gm/dL Hct 32.7 L (34.0-46.0) % RDW 17.3 H (11.5-15.5) % Neutrophils # 23.4 H (1.3-7.7) k/uL Chloride 95 L (98-107) mmol/L BUN 91 H (7-17) mg/dL Creatinine 2.31 H (0.52-1.04) mg/dL Glucose 131 H (74-99) mg/dL Assessment and Plan Plan: Assessment: 1. Chronic kidney disease stage IV with baseline creatinine near 2 secondary to cardiorenal syndrome and nephrosclerosis. Atrophic kidneys noted on renal ultrasound done January 2023. Renal function worsened from diuresis - creatinine stable at 2.31 today. BUN partially elevated from steroids - trending down. 2. A. fib with RVR maintained on amiodarone and Lopressor. Status post cardioversion and ARCADIO. 3. Hypotension s/p Levophed. On midodrine. 4. Hypervolemic hyponatremia. Stable. 5. Hypokalemia from diuresis. Replaced. Better. 6. Acute on chronic systolic CHF with ejection fraction of 40% with moderate aortic insufficiency. Pulmonary hypertension noted on right heart cath. 7. History of coronary artery disease with cardiac stenting. 8. Volume overload. Improved with diuresis. 9. Hypomagnesemia from diuresis. Replaced. Improved. 10. Anemia of chronic kidney disease. Iron replete. On Aranesp. Plan: Transitioned to oral diuretics in the next 24-48 hours. On farxiga. Maintain midodrine. Hold for systolic blood pressure greater than 110. Avoid nephrotoxins. Continue to monitor renal function and urine output. Cortisol level not low. Discussed in detail with patient's daughter this admission regarding monitoring volume status closely upon discharge. Advised to maintain low salt diet and fluid restriction of less than 50 ounces per day. Advised to monitor her weight closely at home and notify physician if develops edema or gains more than 3-4 pounds in one week duration.
[2023-03-19] MEDS: HYDROcodone/APAP 5-325MG 1 EACH TAB PO PRN ×3 (10:44→23:10)
--- NOTE | 2023-03-19 13:22 | P.PN ---
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 She presented to the emergency department with complaints of generalized weakness, intermittent chest pain, shortness of breath, and a headache. Patient was scheduled for cardiac ablation on 03/05/[address] Stockton. Vital signs showed BP 133/82, HR 118, RR 22, T 98.8F, SpO2 of 99% on room air. EKG showed AFib with RVR at 125 bpm. Chest x-ray showed no acute process. CT head showing no acute process. WBC count 11.4. Coagulation profile showing PT of 13.4, INR 1.3, and D-dimer at 1.97 (chronically elevated). BMP Na 130, K 3.4, Cl 94, bicarb of 21, anion gap 15, BUN of 30, Cr 1.81, with baseline Cr 1.9. Troponin less than 0.012. ProBNP 3970 which is significantly improved from previous BNP of 11,800. COVID PCR, Flu, and RSV were negative. Patient was admitted under our services secondary t o intermittent chest pain and atrial fibrillation with consultation to cardiology. Troponins trended, less than 0.012, 0.012, and less than 0.012. Urinalysis was obtained and was abnormal showing positive for protein, ketones, and leukocytosis with 9 RBCs and 18 WBCs. However, patient did have urinary symptoms. Patient became hypotensive on 02/27. Was transferred to medical ICU. Started on norepinephrine. Continue to remain in atrial fibrillation with RVR. Was also started on Lasix drip. Echocardiogram showed slightly reduced LVEF of 40% with global hypokinesis, moderate aortic insufficiency. She had ARCADIO and cardioversion on 03/02, now converted to sinus rhythm. Lasix drip transitioned to IV push 03/03, then later transitioned to oral Bumex. Respiratory function worsen. CXR shows complete opacification of the right lung and pulmonary vascular congestion. Concerns for mucus plugging. Antibiotics escalated to Vancomycin and Cefepime. Off pressors. Patient on and off with BiPAP, transitioned to high flow nasal cannula occasionally, however, oxygen requirements still high. Back on IV lasix. Bronchoscopy showed tracheobronchomalacia, extensive mucus plugging, therapeutic airway suctioning and bronchial lavage done. Continue antibiotic course. Overall respiratory function improving. Now on nasal cannula 3 L. Patient would be okay with following palliative care outpatient. Patient is out of the ICU. She underwent right heart cath pulmonary hypertension likely related to the WHO group 2 and 3. Pt was accepted to [facility] for subacute rehab placement, however she began to have worsening renal function and elevating white blood cell count. Physical exam: Patient seen and examined at bedside. No acute events overnight. He denies any new complaints Vital signs reviewed and stable. General: Nontoxic, no distress and appears stated age. Derm: Skin warm and dry, normal coloration for ethnicity. Head: Atraumatic, normocephalic and symmetric. Eyes: EOMs intact, no lid lag, and anicteric sclera Mouth: no lip lesions, mucus membranes moist Cardiovascular: regular rate and rhythm with normal S1S2, no murmur, positive posterior tibial pulses bilaterally, and cap refill < 2 seconds. Lungs: Bilateral rhonchi, no accessory muscle use, supplemental oxygen Abdominal: soft, nontender to palpation, no guarding, no appreciable organomegaly Ext: ROM intact. No gross muscle atrophy, no edema, no contractures Neuro: Speech clear, face symmetrical and CN II-XII grossly intact with no noted focal neuro deficits Psych: Alert and oriented to person, place, time, and situation. Appropriate and pleasant affect. Assessment and Plan of Care: Patient is critically ill, prognosis guarded Leukocytosis, stable -Patient has completed an extended course of IV antibiotics, and is now having worsening leukocytosis with no signs of acute infection at this time. We will hold off on further initiation of antibiotics. Acute on chronic renal failure, worsening -Nephrology note reviewed, continue Bumex 2 mg IV every 12 hours, consider switching to oral in the next 24-48 hours -Continue close monitoring of I/Os -Repeat BMP and magnesium tomorrow Acute on chronic hypoxic respiratory failure, improved back near baseline respiratory status. Sepsis secondary to bacterial pneumonia, resolved. Acute COPD exacerbation History of interstitial pulmonary fibrosis Pulmonary hypertension -Pulmonology following, continue prednisone 30 mg daily -Continue budesonide/formoterol 2 puffs twice daily. -Continue Duonebs scheduled 3 times daily and as needed for shortness of breath and/or wheezing. -Status post extended course of antibiotics Cardiogenic shock, resolved Acute on chronic diastolic and systolic CHF, EF 40% Paroxysmal atrial fibrillation with RVR, s/p cardioversion, now maintaining sinus mechanism History of CAD with stenting -Off of vasopressors -On IV Bumex, see above -Continue Amiodarone 100 mg daily, metoprolol 50mg BID, Eliquis 2.5 mg BID, atorvastatin 20 mg daily, Farxiga 10 mg daily and midodrine 10 mg 4 times daily. -Cardiology following -Status post right heart cath Hypothyroidism TSH normal findings at 0.471. Continue daily medication regimen with levothyroxine 75 g daily. Hypokalemia, resolved Hypomagnesemia, resolved Data and imaging reviewed: -WBC 25.9, hemoglobin 10.6, creatinine 2.31, magnesium 2.2 -Chest x-ray is independently interpreted shows interstitial opacities, similar to yesterday CODE STATUS: Full code DVT prophylaxis: Eliquis Anticipated discharge date: Wednesday Anticipated discharge place: assisted facility for rehab Objective - Vital Signs Vital signs: Vital Signs Temp 97.9 F 03/19/23 08:58 Pulse 60 03/19/23 13:11 Resp 18 03/19/23 11:52 BP 99/63 03/19/23 11:52 Pulse Ox 92 L 03/19/23 11:52 FiO2 10 03/11/23 07:00 Intake & Output 03/18/23 03/19/23 03/19/23 18:59 06:59 18:59 Intake Total 540 0 236 Output Total 300 1200 Balance 240 -1200 236 Intake: Oral 540 0 236 Output: Urine 300 1200 Other: Voiding Method External Catheter External Catheter External Catheter - Labs CBC & Chem 7: 03/19/23 07:49 03/19/23 07:49 Labs: Abnormal Lab Results - Last 24 Hours (Table) 03/19/23 03/19/23 Range/Units 07:49 07:49 WBC 25.9 H (3.8-10.6) k/uL RBC 3.42 L (3.80-5.40) m/uL Hgb 10.6 L (11.4-16.0) gm/dL Hct 32.7 L (34.0-46.0) % RDW 17.3 H (11.5-15.5) % Neutrophils # 23.4 H (1.3-7.7) k/uL Chloride 95 L (98-107) mmol/L BUN 91 H (7-17) mg/dL Creatinine 2.31 H (0.52-1.04) mg/dL Glucose 131 H (74-99) mg/dL
--- NOTE | 2023-03-19 13:41 | P.PN ---
Subjective HISTORY OF PRESENT ILLNESS: The patient is 67-year-old female with known history of CAD, paroxysmal atrial fibrillation status post cardioversion, severe COPD who presented with worsening dyspnea. She continues to be on high flow oxygen, in sinus mechanism, feels better. She denies any chest discomfort, dizziness or palpitations. She had evidence of moderate cardiomyopathy. Hemodynamically she is stable, her urinary output has been good. There is no evidence of ventricular tachycardia. March 09: The patient feels better overall, she continues to be in sinus mechanism. Hemodynamically she is stable. She denies any chest discomfort or dizziness. She denies any nausea or vomiting. She has a prior history of COPD and her chest x-ray continues to show bilateral infiltrate. She had a known history of moderate cardiomyopathy. March 10: The patient became hypoxic during the night requiring BiPAP. She is in sinus mechanism with episodes of sinus bradycardia. There is occasional single PVCs but no evidence of atrial fibrillation. She is coughing but no significant sputum. She denies any chest discomfort, dizziness or palpitations. Her urinary output has been stable. She denies any nausea or vomiting. Her chest x-ray shows persistent infiltrate. March 11: The patient feels well this morning, she continues to have mild dyspnea but stable. She denies any chest discomfort, dizziness or palpitations. She continues to be in sinus mechanism with stable blood pressure. Her urinary output is good. She has no nausea or vomiting. March 12: The patient is feeling relatively well this morning she continues to be dyspneic and fatigued. She had bronchoscopy yesterday and removal of mucous plugging and secretions. She continues to be in sinus mechanism with sinus bradycardia. There is no evidence of recurrent atrial fibrillation. Her blood pressure has been stable. She is on no vasopressors. Her urinary output has been stable. Her chest x-ray continues to show bilateral infiltrate. She continues to be on IV Lasix. March 13: She is feeling well this morning, she denies any chest discomfort or dizziness. She is coughing but feels better overall. She denies any nausea or vomiting. She continues to be in sinus mechanism with stable blood pressure. She continues to have some wheezing. She is on oral diuretics. March 14: The patient is feeling better, her breathing is better. She denies any chest discomfort, dizziness or palpitations. She continues to be in sinus mechanism. She appears to be stronger. She has no nausea or vomiting. 03/15/2023 Patient examined this morning at the bedside. Patient denies chest pain or pressure. She continues to report shortness of breath but states it is slightly better compared to yesterday. She remains on supplemental oxygen maintaining oxygen saturation greater than 92%.. She was given a one-time dose of IV Lasix today per pulmonary. Creatinine today 2.45. Blood pressure is stable. Tele metry reveals sinus mechanism. 03/16/2023 Patient examined this morning at the bedside. Family present. She denies chest pain or pressure. She reports SOB that is unchanged. She remains on oral diur etics. Vital signs are stable. 03/18/2023 Patient examined this morning at the bedside. She is status post right-sided heart catheterization revealing elevated biventricular filling pressures and p ulmonary hypertension. Patient is sitting up in the chair at the time of examination. She states her breathing feels slightly improved compared to yesterday. She has been started on IV Bumex 2 mg every 12 hours. Creatinine today 2.22. 03/19/2023 Patient examined this morning at the bedside. Patient currently denies chest pain or pressure. She reports mild shortness of breath. She remains on IV Bumex 2 mg every 12 hours. Creatinine 2.31 today. Urine output over the last 24 hours is 1500 mL. Vital signs are stable. PHYSICAL EXAM: VITAL SIGNS: Reviewed. GENERAL: Well-developed in no acute distress. NECK: Supple. No JVD or thyromegaly LUNGS: Respirations even and unlabored. Lungs with bilateral rhonchi noted. HEART: Regular rate and rhythm. S1 and S2 heard. Systolic murmur noted EXTREMITIES: Normal range of motion. No clubbing or cyanosis. Peripheral pu lses intact. Trace bilateral lower extremity edema ASSESSMENT: Acute hypoxic respiratory failure secondary to combination of CHF, possible pneumonia, and exacerbation of COPD Status post bronchoscopy History of coronary artery disease with previous stenting Paroxysmal atrial fibrillation, currently maintaining sinus mechanism Status post cardioversion with sinus bradycardia Chronic kidney disease Ischemic cardiomyopathy, ejection fraction 40% Valvular heart disease including moderate AI, mild , and mild TR Status post right heart cath revealing elevated biventricular filling pressures and pulmonary hypertension PLAN: Continue current cardiac medications Continue IV diuretics Daily weights, accurate I&O, monitor kidney function Further recommendations pending patient's course Nurse practitioner note has been reviewed by physician. Signing provider agrees with the documented findings, assessment, and plan of care. Objective - Vital Signs Vital signs: Vital Signs Temp 97.8 F 03/18/23 20:00 Pulse 64 03/19/23 08:48 Resp 18 03/19/23 04:00 BP 121/76 03/19/23 04:00 Pulse Ox 94 L 03/19/23 04:00 FiO2 10 03/11/23 07:00 Intake & Output 03/18/23 03/19/23 03/19/23 18:59 06:59 18:59 Intake Total 540 0 236 Output Total 300 1200 Balance 240 -1200 236 Intake: Oral 540 0 236 Output: Urine 300 1200 Other: Voiding Method External Catheter External Catheter - Labs CBC & Chem 7: 03/19/23 07:49 03/19/23 07:49 Labs: Abnormal Lab Results - Last 24 Hours (Table) 03/18/23 03/19/23 03/19/23 Range/Units 08:14 07:49 07:49 WBC 25.9 H (3.8-10.6) k/uL RBC 3.42 L (3.80-5.40) m/uL Hgb 10.6 L (11.4-16.0) gm/dL Hct 32.7 L (34.0-46.0) % RDW 17.3 H (11.5-15.5) % Neutrophils # 23.4 H (1.3-7.7) k/uL Chloride 95 L 95 L (98-107) mmol/L Carbon Dioxide 33 H (22-30) mmol/L BUN 100 H 91 H (7-17) mg/dL Creatinine 2.22 H 2.31 H (0.52-1.04) mg/dL Glucose 131 H (74-99) mg/dL Magnesium 2.5 H (1.6-2.3) mg/dL
--- NOTE | 2023-03-19 14:22 | P.PN ---
Subjective Progress Note Date: 03/19/23 Principal diagnosis: Acute on chronic hypoxic respiratory failure, multifactorial secondary to acute on chronic diastolic congestive heart failure, underlying COPD, with acute exac erbation This is a pleasant 67-year-old female who is had multiple readmissions to the hospital. 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 She had been on the selective care unit. Today she developed hypotension, atrial fibrillation with a rapid ventricular response increasing shortness of breath cough and congestion and was transferred to the intensive care unit. She is seen today in consultation. She is quite weak and debilitated. Her daughter is at the bedside. She is currently maintaining O2 saturations in the upper 90s on 2 L/m per nasal cannula. Blood pressure 80/50. Heart rate 109. Afebrile. Chest x- ray reveals moderate cardiomegaly with diffuse interstitial infiltrates. Count 8.2. Hemoglobin 12.0. Platelets 239. Sodium 137. Potassium 3.5. Bicarb 25. BUN 31. Creatinine 1.78. Glucose 112. Urinalysis cloudy with moderate blood and large leukocyte esterase and high WBCs with many bacteria. She is currently on DuoNeb inhalations, Symbicort, Singulair and ceftriaxone. Anticoagulation on hold for possible heart catheterization tomorrow. Patient was reevaluated today on 02/28/23 patient is still in the ICU, I saw her yesterday, overnight the patient had worsening atrial fibrillation with RVR, remains poorly controlled, she required norepinephrine last night but this was discontinued this morning. Patient developed worsening congestive heart failure with interstitial edema as noted on the chest x-ray today, hence I recommended that we start the patient on Lasix drip at 10 mg per hour cut down her IV fluid to KVO, continue patient on ceftriaxone since the Procrit started level is 0.26 today my clinical suspicion for pneumonia is rather low, but it is hard to tell based on the chest x-ray findings since the chest x-ray is showing mostly bi lateral interstitial edema. Patient seems to be comfortable, she is not in distress, she is on 3 L nasal cannula but on physical examination she had significant crackles or rhonchi and wheezes bilaterally. And hoping the Lasix drip will improve her pulmonary symptoms WBC count today is 10.5 hemoglobin is 11.4 basic metabolic profile is normal BUN is 27 creatinine 1.75, pro-calcitonin level is 0.26, patient is empirically on Rocephin. 03/12/2023, the patient is feeling much better. She underwent bronchoscopy and therapeutic airway suctioning and copious amounts blister secretions were sucti oned out. Following that, there was significant improvement in oxygenation. This morning, the patient is down to 4 L of O2 nasal cannula. Her pulse ox is 97%. Cough is less congested. The sputum was sent for culture analysis and is also still pending for now. Chest x-ray findings are stable. The patient was switched to oral Lasix and the patient has a slight rise in the creatinine which is up to 2.12. Cardiology noted that in the switched him to Lasix 40 mg by mouth twice a day. The white cycles of 19.1, hemoglobin 9.5, BUN is at 86 with a creatinine of 2.1 and his sodium level is at 138. She feels significantly improved compared to yesterday. At the same time, she remains on bron chodilators. She remains on IV cefepime. She is also on anticoagulation with Eliquis. Cardiac rhythm is sinus bradycardia. The patient remains on amiodarone. She remains on metoprolol 50 mg by mouth twice a day. She is using the incentive spirometer. She is tolerating her diet. She is in much better condition. Note that the bronchoscopy showed significant amount of tracheobronchomalacia. The bronchial alveolar lavage was sent for microbial cultures and there is also still pending for now. On 03/13/2023, the patient is on 3 L of oxygen by nasal cannula, calm and comfortable and she denies having any specific complaints. Her night was uneventful. She still on diuretics. She was switched to oral Lasix. Her cardiac rhythm is sinus any cardio. Amiodarone dose was adjusted by cardiology. Meanwhile, her white cell count of 18, hemoglobin is at 9.2 with a platelet count of 248. Urine is 98 with a creatinine of 2 and a sodium level is at 138. Fluid balance is in order of -2.1 L over the past 24 hours. Otherwise, she is tolerating diet, she is awake and alert and she is also communicating. I'm still awaiting the cultures from the bronchial alveolar lavage was sent earlier. The patient remains on IV cefepime and she completed her last those last night. She is on bronchodilators and she is on anticoagulation. She is also on IV Solu-Medrol which is going to be tapered down to 40 mg every 12 hours. 03/14/2023, the patient remains on 3-4 L. Doing well. Cough and congestion is subsided. Awaiting the results of the bronchial lavage and the microbial cultures and analysis. No specific complaints. Using the incentive spirometer. Remains on Lasix 40 mg by mouth daily. Remains on anticoagulation with Eliquis. Remains on bronchodilators. White cell count is at 21, hemoglobin was at 9, BUN is at 107 with a creatinine of 2.3 and a sodium levels of 136. Patient was reevaluated today on 03/15/2023, patient is still having significant pulmonary symptoms with intermittent cough and wheezing. Chest x-ray continues to show significant interstitial edema, diffuse interstitial opacities are worsening compared to the last few days, and on physical examination she has diffuse crackles and rhonchi bilaterally. Patient is on 4 L nasal cannula with O2 sats is 97%, surprisingly does not seem to be clinically in distress as expected based on the chest x-ray findings and based on the physical findings/pulmonary examination. Nonetheless I did recommend Lasix 40 mg IV push to be given. Sputum cultures/BAL cultures are still pending patient is developing worsening leukocytosis was W7 23.6 hemoglobin 8.9, BUN today is 106 creatinine 2.45. Patient remains on bronchodilators, remains on diuretics, presently off antibiotics patient is also on amiodarone at 100 mg by mouth daily and she is on eliquis. Patient was reevaluated today on 03/16/2023, patient is feeling better today, breathing easier, she remains on diuretics, yesterday I gave her an extra dose of Lasix because she was sounding quite wet. Patient is on 4 L nasal cannula, not in distress, however her white count seems to be on the rise up to 30.3 with hemoglobin of 8 electrolytes are normal and BUN is 96 creatinine 2.30 actually better than yesterday in spite of the extra dose of Lasix given yesterday. Chest x-ray today showed improvement in her interstitial edema but not completely resolved Reevaluated today on 03/17/2023, patient is scheduled to undergo cardiac catheterization today, she was cleared for cardiac catheterization by nephrology and she did receive a dose of Lasix earlier today by nephrology as the patient seems to be in congestive heart failure again. Patient is maintained on Lasix at 40 mg daily, but intermittently we have been giving her an extra dose of La six and I believe the patient should go back to her maintenance dose of Lasix which is 40 mg twice a day and she has been on this dose for a long time. Otherwise the patient will continue to have episodes of congestive heart failure. Her FiO2 requirement went up to 5 L nasal cannula, and O2 saturations remains marginal at 91% at best. Blood pressure is also marginal with systolic of 94 and diastolic of 68. All x-rays recently have demonstrated evidence of congestive heart failure Patient was reevaluated today on 03/18/2023, patient had right-sided cardiac catheterization yesterday, had a mean pulmonary capillary wedge pressure was noted noted to be 25. Pulmonary artery pressure 44/23, mean of 31, right atrial pressure was 11, clearly the patient had elevated biventricular filling pre ssures and evidence of pulmonary hypertension. Patient is now on Bumex replacing Lasix and her Bumex dose is 2 mg IV push every 12 hours patient remains on midodrine to support her blood pressure, and overall she seems to be doing a bit better, nonetheless clinically she still sounds wet, and she is in pulmonary edema patient is on 3 L nasal cannula, O2 sats 91% and blood pressure this morning is 90/59 with a mean of 69 Reevaluated today on , patient is steadily feeling better, she seems to be doing much better with the new regimen of Bumex for her congestive heart failure. Patient remains on 3 L nasal cannula with O2 sats of 92%, less cough and less wheezing less shortness of breath, but nonetheless not back to her baseline. Patient remains in negative fluid balance, over a liter and a half in the last 24 hours. WBC count is 25.9 hemoglobin is 10.6 basic metabolic profile is normal renal profile is slightly worse today with creatinine 2.31 looking back at this patient's BAL cultures from 03/12, patient came back positive for stenotrophomonas and for MRSA. Hence I'm recommending infectious disease consultation on this patient, it's kind of challenging as what antibiotics he could be used. on this patient specially with her renal functioning as bad as it is. Objective - Vital Signs Vital signs: Vital Signs Temp 97.9 F 03/19/23 08:58 Pulse 60 03/19/23 13:11 Resp 18 03/19/23 11:52 BP 99/63 03/19/23 11:52 Pulse Ox 92 L 03/19/23 11:52 FiO2 10 03/11/23 07:00 Intake & Output 03/18/23 03/19/23 03/19/23 18:59 06:59 18:59 Intake Total 540 0 236 Output Total 300 1200 Balance 240 -1200 236 Intake: Oral 540 0 236 Output: Urine 300 1200 Other: Voiding Method External Catheter External Catheter External Catheter - Exam Physical Exam: Revealed a 67-year-old female in no distress on 3 L nasal cannula HEENT:[Neck is supple.] [No neck masses.] [No thyromegaly.] [No JVD.] Chest: Continues to have Crackles and rhonchi noted bilaterally Cardiac Exam: Irregular irregular rhythm. [Normal S1 and S[Minimal2, no S3 gallop,3/6 systolic murmur thought the precordium Abdomen: [Soft, nontender, no megaly, no rebound, no guarding, normal bowel sounds.] Extremities: [No clubbing, trace of bipedal edema, no cyanosis.] Neurological Exam: [No focal neurologic deficit.] Alert and oriented 3. Psychiatric: Normal mood, affect and normal mental status examination Skin: No rashes - Labs CBC & Chem 7: 03/19/23 07:49 03/19/23 07:49 Labs: Abnormal Lab Results - Last 24 Hours (Table) 03/19/23 03/19/23 Range/Units 07:49 07:49 WBC 25.9 H (3.8-10.6) k/uL RBC 3.42 L (3.80-5.40) m/uL Hgb 10.6 L (11.4-16.0) gm/dL Hct 32.7 L (34.0-46.0) % RDW 17.3 H (11.5-15.5) % Neutrophils # 23.4 H (1.3-7.7) k/uL Chloride 95 L (98-107) mmol/L BUN 91 H (7-17) mg/dL Creatinine 2.31 H (0.52-1.04) mg/dL Glucose 131 H (74-99) mg/dL Assessment and Plan Assessment: Impression: Acute on chronic hypoxic respiratory failure, multifactorial Acute on chronic systolic congestive heart failure Possible underlying pneumonia secondary to MRSA and stenotrophomonas, this was noted on the BAL from 03/12 Acute exacerbation of COPD Atrial fibrillation with RVR History of DVT and pulmonary embolism Chronic cor pulmonale Moderate severe pulmonary hypertension Chronic kidney disease stage III Coronary arteriosclerosis and previous stent placement Recommendation: Result infectious disease to address her MRSA and stenotrophomonas in the BAL patient has been on this admission treated with vancomycin and with cefepime but has not been on antibiotics for the last 1 week Continue Bumex, and continue to monitor renal profile Continue midodrine Continue bronchodilators Continue amiodarone Continue oral prednisone and taper on outpatient basis CODE STATUS is full code. Continue to monitor daily labs Prognosis is poor and guarded Still not ready for discharge. We will continue to follow Time with Patient: Less than 30
--- NOTE | 2023-03-19 16:37 | CT ---
EXAMINATION TYPE: CT chest wo con DATE OF EXAM: 03/19/2023 COMPARISON: 04/17/2019 HISTORY: 67-year-old female Pneumonia, + sputum MRSA TECHNIQUE: Contiguous axial scanning of the chest with coronal and sagittal reconstructions. Coronal /sagittal reconstructions performed. CT DLP: 305mGycm. Automatic exposure control utilized for a dose reduction. FINDINGS: Heart mildly enlarged. No pericardial effusion. Three-vessel coronary artery calcifications. Mild-to- moderate aortic valvular calcifications. Aorta normal caliber with mild atherosclerotic arch calcifications and conventional arch vessel branc prosper anatomy. Lower right paratracheal lymph nodes measuring up to 1.0 cm, overall decreased in size from prior. Ot herwise, no thoracic lymphadenopathy by CT size criteria. Borderline to mildly enlarged right and left main pulmonary arteries measuring up to 2.7 cm suggestin g underlying pulmonary artery hypertension. Moderate to advanced emphysematous change throughout the lungs. Superimposed groundglass changes thro ughout the lungs especially in the lower lungs. No pleural effusion. Moderate size hiatal hernia with approximately a third of the stomach located in the lower chest. Visualized upper abdomen otherwise shows cholecystectomy clips. Bones: Accentuated midthoracic kyphosis. IMPRESSION: 1. COPD with moderate to advanced emphysema. 2. There is diffuse bilateral groundglass density greatest in the lower lungs. Correlate as to etiolo gy. Interstitial pneumonitis, hypersensitivity pneumonitis, atypical or aspiration pneumonias are omari ng the differential.
[2023-03-19] MEDS: SERTRALINE 100 MG TAB PO SCH (19:49)
[2023-03-19] MEDS: ATORVASTATIN 20 MG TAB PO SCH (19:49)
[2023-03-19] MEDS: SYMBICORT 160-4.5 MCG INHALER INHALATION SCH (21:07)
[2023-03-20] MEDS: LEVOTHYROXINE 75 MCG TAB PO SCH (05:53)
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
[2023-03-20] MEDS: SYMBICORT 160-4.5 MCG INHALER INHALATION SCH ×2 (07:37→21:18)
[2023-03-20] MEDS: IPRATROPIUM-ALBUTEROL 3 ML NEB INHALATION SCH ×3 (07:38→21:18)
[2023-03-20 08:16] LABS: Anisocytosis Slight; Basophils # (A) 0.1 k/uL (0-0.2); Basophils % (A) 0 %; Eosinophils % (A) 0 %; HCT 30.9 % (34.0-46.0); HGB 10.3 gm/dL (11.4-16.0); Hypochromasia Slight; Lymphocytes # (A) 1.2 k/uL (1.0-4.8); Lymphocytes % (A) 6 %; MCH 31.7 pg (25.0-35.0); MCHC 33.3 g/dL (31.0-37.0); Macrocytosis Slight; Mean Platelet Volume 8.4; Monocytes # (A) 0.5 k/uL (0-1.0); Monocytes % (A) 3 %; Neutrophils # (A) 17.8 k/uL (1.3-7.7); Neutrophils % (A) 90 %; Platelet Count 173 k/uL (150-450); RBC 3.25 m/uL (3.80-5.40); RDW 17.6 % (11.5-15.5); WBC 19.7 k/uL (3.8-10.6)
[2023-03-20 08:40] LABS: African American GFR (CKD) 28 (>60 ml/min/1.73 sqM); Anion Gap 15 mmol/L; Blood Urea Nitrogen 89 mg/dL (7-17); Calcium 9.1 mg/dL (8.4-10.2); Carbon Dioxide 28 mmol/L (22-30); Chloride 94 mmol/L (98-107); Glucose 123 mg/dL (74-99); Magnesium 2.1 mg/dL (1.6-2.3); Non-African American GFR(CKD) 24 (>60 ml/min/1.73 sqM); Potassium 3.8 mmol/L (3.5-5.1); Sodium 137 mmol/L (137-145)
[2023-03-20] MEDS: PANTOPRAZOLE 40 MG/10 ML VIAL IVP SCH (09:04)
[2023-03-20] MEDS: polyethylene glycoL 3350 17 GM POWD.PACK PO SCH (09:04)
[2023-03-20] MEDS: predniSONE 10 MG TAB PO SCH (09:05)
[2023-03-20] MEDS: GABAPENTIN 100 MG CAP PO SCH ×3 (09:05→19:52)
[2023-03-20] MEDS: DAPAGLIFLOZIN PROPANEDIOL 10 MG TABLET PO SCH (09:08)
[2023-03-20] MEDS: APIXABAN 2.5 MG TABLET PO SCH ×2 (09:08→19:52)
[2023-03-20] MEDS: MIDODRINE 5 MG TAB PO SCH ×4 (09:08→19:53)
[2023-03-20] MEDS: METOPROLOL TARTRATE 50 MG TAB PO SCH ×2 (09:08→19:52)
[2023-03-20] MEDS: AMIODARONE 100 MG TAB PO SCH (09:08)
[2023-03-20] MEDS: DOCUSATE 100 MG CAP PO SCH (09:08)
--- NOTE | 2023-03-20 11:08 | P.PN ---
Subjective Patient is seen for follow-up for chronic kidney disease and acute kidney injury. Renal function has been stable. Maintained on Bumex IV. No no significant shortness of breath. Serum creatinine increased to 2.1 mg/dL today. Objective - Vital Signs Vital signs: Vital Signs Temp 98 F 03/20/23 08:00 Pulse 64 03/20/23 08:00 Resp 18 03/20/23 08:00 BP 97/64 03/20/23 08:00 Pulse Ox 94 L 03/20/23 08:00 FiO2 10 03/11/23 07:00 Intake & Output 03/19/23 03/20/23 03/20/23 18:59 06:59 18:59 Intake Total 356 200 118 Output Total 700 1200 Balance -344 -1000 118 Weight 74.2 kg Intake: Oral 356 200 118 Output: Urine 700 1200 Other: Voiding Method External Catheter External Catheter - Exam Patient is comfortable, No acute distress Examination of the heart S1 and S2 Examination the lungs decreased breath sounds at the bases Abdomen is soft nontender Examination lower extremity shows no significant edema 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 - Labs CBC & Chem 7: 03/20/23 06:54 03/20/23 06:45 Labs: Abnormal Lab Results - Last 24 Hours (Table) 03/19/23 03/19/23 03/20/23 Range/Units 07:49 07:49 06:45 WBC (3.8-10.6) k/uL RBC (3.80-5.40) m/uL Hgb (11.4-16.0) gm/dL Hct (34.0-46.0) % RDW (11.5-15.5) % Neutrophils # (1.3-7.7) k/uL Chloride 94 L (98-107) mmol/L BUN 89 H (7-17) mg/dL Creatinine 2.07 H (0.52-1.04) mg/dL Glucose 123 H (74-99) mg/dL C-Reactive Protein 1.7 H (<1.0) mg/dL Procalcitonin 0.25 H (0.02-0.09) ng/mL 03/20/23 Range/Units 06:54 WBC 19.7 H (3.8-10.6) k/uL RBC 3.25 L (3.80-5.40) m/uL Hgb 10.3 L (11.4-16.0) gm/dL Hct 30.9 L (34.0-46.0) % RDW 17.6 H (11.5-15.5) % Neutrophils # 17.8 H (1.3-7.7) k/uL Chloride (98-107) mmol/L BUN (7-17) mg/dL Creatinine (0.52-1.04) mg/dL Glucose (74-99) mg/dL C-Reactive Protein (<1.0) mg/dL Procalcitonin (0.02-0.09) ng/mL Assessment and Plan Assessment: 1. Chronic kidney disease stage IV with baseline creatinine 1.5 - 2 secondary to cardiorenal syndrome and nephrosclerosis. Fluctuation in renal function based on volume status and diuresis. Atrophic kidneys noted on renal ultrasound done January 2023. 2. A. fib with RVR maintained on amiodarone and Lopressor. Status post cardioversion and ARCADIO. 3. Hypotension status post levo fed. Currently maintained on midodrine. 4. Hypervolemic hyponatremia. Stable. 5. Hypokalemia from diuresis. Replaced. Better. 6. Acute on chronic systolic CHF with ejection fraction of 40% with moderate aortic insufficiency. 7. History of coronary artery disease with cardiac stenting. 8. Volume overload. Improving with diuresis. 9. Hypomagnesemia from diuresis. Replaced. Better. 10. Right lung opacification secondary to mucous plug. Pulmonology following. Status post bronchoscopy with significant bronchoalveolar lavage for thick mucus Plan: continue with IV Bumex Repeat labs in a.m. Continue with salt and fluid restriction. Hold midodrine for systolic blood pressure greater than 1 10 mmHg.
--- NOTE | 2023-03-20 11:24 | P.PN ---
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 She presented to the emergency department with complaints of generalized weakness, intermittent chest pain, shortness of breath, and a headache. Patient was scheduled for cardiac ablation on 03/05/[address] Stockton. Vital signs showed BP 133/82, HR 118, RR 22, T 98.8F, SpO2 of 99% on room air. EKG showed AFib with RVR at 125 bpm. Chest x-ray showed no acute process. CT head showing no acute process. WBC count 11.4. Coagulation profile showing PT of 13.4, INR 1.3, and D-dimer at 1.97 (chronically elevated). BMP Na 130, K 3.4, Cl 94, bicarb of 21, anion gap 15, BUN of 30, Cr 1.81, with baseline Cr 1.9. Troponin less than 0.012. ProBNP 3970 which is significantly improved from previous BNP of 11,800. COVID PCR, Flu, and RSV were negative. Patient was admitted under our services secondary t o intermittent chest pain and atrial fibrillation with consultation to cardiology. Troponins trended, less than 0.012, 0.012, and less than 0.012. Urinalysis was obtained and was abnormal showing positive for protein, ketones, and leukocytosis with 9 RBCs and 18 WBCs. However, patient did have urinary symptoms. Patient became hypotensive on 02/27. Was transferred to medical ICU. Started on norepinephrine. Continue to remain in atrial fibrillation with RVR. Was also started on Lasix drip. Echocardiogram showed slightly reduced LVEF of 40% with global hypokinesis, moderate aortic insufficiency. She had ARCADIO and cardioversion on 03/02, now converted to sinus rhythm. Lasix drip transitioned to IV push 03/03, then later transitioned to oral Bumex. Respiratory function worsen. CXR shows complete opacification of the right lung and pulmonary vascular congestion. Concerns for mucus plugging. Antibiotics escalated to Vancomycin and Cefepime. Off pressors. Patient on and off with BiPAP, transitioned to high flow nasal cannula occasionally, however, oxygen requirements still high. Back on IV lasix. Bronchoscopy showed tracheobronchomalacia, extensive mucus plugging, therapeutic airway suctioning and bronchial lavage done. Continue antibiotic course. Overall respiratory function improving. Now on nasal cannula 3 L. Patient would be okay with following palliative care outpatient. Patient is out of the ICU. She underwent right heart cath pulmonary hypertension likely related to the WHO group 2 and 3. Pt was accepted to [facility] for subacute rehab placement, however she began to have worsening renal function and elevating white blood cell count. Currently on IV Bumex. Renal function stable. Respiratory function stable. Anticipate possible discharge on Wednesday to rehab. Physical exam: Patient seen and examined at bedside. No acute events overnight. He denies any new complaints Vital signs reviewed and stable. General: Nontoxic, no distress and appears stated age. Derm: Skin warm and dry, normal coloration for ethnicity. Head: Atraumatic, normocephalic and symmetric. Eyes: EOMs intact, no lid lag, and anicteric sclera Mouth: no lip lesions, mucus membranes moist Cardiovascular: regular rate and rhythm with normal S1S2, no murmur, positive posterior tibial pulses bilaterally, and cap refill < 2 seconds. Lungs: Bilateral rhonchi, no accessory muscle use, supplemental oxygen Abdominal: soft, nontender to palpation, no guarding, no appreciable organomegaly Ext: ROM intact. No gross muscle atrophy, no edema, no contractures Neuro: Speech clear, face symmetrical and CN II-XII grossly intact with no noted focal neuro deficits Psych: Alert and oriented to person, place, time, and situation. Appropriate and pleasant affect. Assessment and Plan of Care: Patient is critically ill, prognosis guarded Leukocytosis, improving -Patient has completed an extended course of IV antibiotics, and is now having worsening leukocytosis with no signs of acute infection at this time -ID was consulted -Currently not on any antibiotics, consider continue to hold antibiotics Acute on chronic renal failure, worsening -Nephrology note reviewed, continue Bumex 2 mg IV every 12 hours -Continue close monitoring of I/Os -Repeat BMP and magnesium tomorrow Acute on chronic hypoxic respiratory failure, improved back near baseline respiratory status. Sepsis secondary to bacterial pneumonia, resolved. Acute COPD exacerbation History of interstitial pulmonary fibrosis Pulmonary hypertension -Discussed management with pulmonology, patient continued to have poor prognosis, continue prednisone 30 mg daily -Continue budesonide/formoterol 2 puffs twice daily. -Continue Duonebs scheduled 3 times daily and as needed for shortness of breath and/or wheezing. -Status post extended course of antibiotics Cardiogenic shock, resolved Acute on chronic diastolic and systolic CHF, EF 40% Paroxysmal atrial fibrillation with RVR, s/p cardioversion, now maintaining sinus mechanism History of CAD with stenting -Off of vasopressors -On IV Bumex, see above -Continue Amiodarone 100 mg daily, metoprolol 50mg BID, Eliquis 2.5 mg BID, atorvastatin 20 mg daily, Farxiga 10 mg daily and midodrine 10 mg 4 times daily. -Cardiology following -Status post right heart cath Hypothyroidism TSH normal findings at 0.471. Continue daily medication regimen with levothyroxine 75 g daily. Hypokalemia, resolved Hypomagnesemia, resolved Data and imaging reviewed: -WBC 19.7, hemoglobin 10.3, creatinine 2.07, pro calcitonin 0.25, CRP 1.7 -Chest CT report reviewed, shows COPD with moderate to advanced emphysema, diffuse bilateral groundglass densities in the lower lungs which could be interstitial pneumonitis, hypersensitivity pneumonitis, atypical aspiration pneumonia. CODE STATUS: Full code DVT prophylaxis: Eliquis Anticipated discharge date: Wednesday Anticipated discharge place: long-term facility for rehab Objective - Vital Signs Vital signs: Vital Signs Temp 98 F 03/20/23 08:00 Pulse 64 03/20/23 08:00 Resp 18 03/20/23 08:00 BP 97/64 03/20/23 08:00 Pulse Ox 94 L 03/20/23 08:00 FiO2 10 03/11/23 07:00 Intake & Output 03/19/23 03/20/23 03/20/23 18:59 06:59 18:59 Intake Total 356 200 118 Output Total 700 1200 Balance -344 -1000 118 Weight 74.2 kg Intake: Oral 356 200 118 Output: Urine 700 1200 Other: Voiding Method External Catheter External Catheter - Labs CBC & Chem 7: 03/20/23 06:54 03/20/23 06:45 Labs: Abnormal Lab Results - Last 24 Hours (Table) 03/19/23 03/19/23 03/20/23 Range/Units 07:49 07:49 06:45 WBC (3.8-10.6) k/uL RBC (3.80-5.40) m/uL Hgb (11.4-16.0) gm/dL Hct (34.0-46.0) % RDW (11.5-15.5) % Neutrophils # (1.3-7.7) k/uL Chloride 94 L (98-107) mmol/L BUN 89 H (7-17) mg/dL Creatinine 2.07 H (0.52-1.04) mg/dL Glucose 123 H (74-99) mg/dL C-Reactive Protein 1.7 H (<1.0) mg/dL Procalcitonin 0.25 H (0.02-0.09) ng/mL 03/20/23 Range/Units 06:54 WBC 19.7 H (3.8-10.6) k/uL RBC 3.25 L (3.80-5.40) m/uL Hgb 10.3 L (11.4-16.0) gm/dL Hct 30.9 L (34.0-46.0) % RDW 17.6 H (11.5-15.5) % Neutrophils # 17.8 H (1.3-7.7) k/uL Chloride (98-107) mmol/L BUN (7-17) mg/dL Creatinine (0.52-1.04) mg/dL Glucose (74-99) mg/dL C-Reactive Protein (<1.0) mg/dL Procalcitonin (0.02-0.09) ng/mL
[2023-03-20] MEDS: BUMETANIDE 0.25 MG/ML 10 ML VIAL IV SCH ×2 (12:11→23:32)
--- NOTE | 2023-03-20 12:14 | P.PN ---
Subjective Progress Note Date: 03/20/23 Principal diagnosis: Acute on chronic hypoxic respiratory failure, multifactorial secondary to acute on chronic diastolic congestive heart failure, underlying COPD, with acute exac erbation This is a pleasant 67-year-old female who is had multiple readmissions to the hospital. 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 She had been on the selective care unit. Today she developed hypotension, atrial fibrillation with a rapid ventricular response increasing shortness of breath cough and congestion and was transferred to the intensive care unit. She is seen today in consultation. She is quite weak and debilitated. Her daughter is at the bedside. She is currently maintaining O2 saturations in the upper 90s on 2 L/m per nasal cannula. Blood pressure 80/50. Heart rate 109. Afebrile. Chest x- ray reveals moderate cardiomegaly with diffuse interstitial infiltrates. Count 8.2. Hemoglobin 12.0. Platelets 239. Sodium 137. Potassium 3.5. Bicarb 25. BUN 31. Creatinine 1.78. Glucose 112. Urinalysis cloudy with moderate blood and large leukocyte esterase and high WBCs with many bacteria. She is currently on DuoNeb inhalations, Symbicort, Singulair and ceftriaxone. Anticoagulation on hold for possible heart catheterization tomorrow. Patient was reevaluated today on 02/28/23 patient is still in the ICU, I saw her yesterday, overnight the patient had worsening atrial fibrillation with RVR, remains poorly controlled, she required norepinephrine last night but this was discontinued this morning. Patient developed worsening congestive heart failure with interstitial edema as noted on the chest x-ray today, hence I recommended that we start the patient on Lasix drip at 10 mg per hour cut down her IV fluid to KVO, continue patient on ceftriaxone since the Procrit started level is 0.26 today my clinical suspicion for pneumonia is rather low, but it is hard to tell based on the chest x-ray findings since the chest x-ray is showing mostly bi lateral interstitial edema. Patient seems to be comfortable, she is not in distress, she is on 3 L nasal cannula but on physical examination she had significant crackles or rhonchi and wheezes bilaterally. And hoping the Lasix drip will improve her pulmonary symptoms WBC count today is 10.5 hemoglobin is 11.4 basic metabolic profile is normal BUN is 27 creatinine 1.75, pro-calcitonin level is 0.26, patient is empirically on Rocephin. 03/12/2023, the patient is feeling much better. She underwent bronchoscopy and therapeutic airway suctioning and copious amounts blister secretions were sucti oned out. Following that, there was significant improvement in oxygenation. This morning, the patient is down to 4 L of O2 nasal cannula. Her pulse ox is 97%. Cough is less congested. The sputum was sent for culture analysis and is also still pending for now. Chest x-ray findings are stable. The patient was switched to oral Lasix and the patient has a slight rise in the creatinine which is up to 2.12. Cardiology noted that in the switched him to Lasix 40 mg by mouth twice a day. The white cycles of 19.1, hemoglobin 9.5, BUN is at 86 with a creatinine of 2.1 and his sodium level is at 138. She feels significantly improved compared to yesterday. At the same time, she remains on bron chodilators. She remains on IV cefepime. She is also on anticoagulation with Eliquis. Cardiac rhythm is sinus bradycardia. The patient remains on amiodarone. She remains on metoprolol 50 mg by mouth twice a day. She is using the incentive spirometer. She is tolerating her diet. She is in much better condition. Note that the bronchoscopy showed significant amount of tracheobronchomalacia. The bronchial alveolar lavage was sent for microbial cultures and there is also still pending for now. On 03/13/2023, the patient is on 3 L of oxygen by nasal cannula, calm and comfortable and she denies having any specific complaints. Her night was uneventful. She still on diuretics. She was switched to oral Lasix. Her cardiac rhythm is sinus any cardio. Amiodarone dose was adjusted by cardiology. Meanwhile, her white cell count of 18, hemoglobin is at 9.2 with a platelet count of 248. Urine is 98 with a creatinine of 2 and a sodium level is at 138. Fluid balance is in order of -2.1 L over the past 24 hours. Otherwise, she is tolerating diet, she is awake and alert and she is also communicating. I'm still awaiting the cultures from the bronchial alveolar lavage was sent earlier. The patient remains on IV cefepime and she completed her last those last night. She is on bronchodilators and she is on anticoagulation. She is also on IV Solu-Medrol which is going to be tapered down to 40 mg every 12 hours. 03/14/2023, the patient remains on 3-4 L. Doing well. Cough and congestion is subsided. Awaiting the results of the bronchial lavage and the microbial cultures and analysis. No specific complaints. Using the incentive spirometer. Remains on Lasix 40 mg by mouth daily. Remains on anticoagulation with Eliquis. Remains on bronchodilators. White cell count is at 21, hemoglobin was at 9, BUN is at 107 with a creatinine of 2.3 and a sodium levels of 136. Patient was reevaluated today on 03/15/2023, patient is still having significant pulmonary symptoms with intermittent cough and wheezing. Chest x-ray continues to show significant interstitial edema, diffuse interstitial opacities are worsening compared to the last few days, and on physical examination she has diffuse crackles and rhonchi bilaterally. Patient is on 4 L nasal cannula with O2 sats is 97%, surprisingly does not seem to be clinically in distress as expected based on the chest x-ray findings and based on the physical findings/pulmonary examination. Nonetheless I did recommend Lasix 40 mg IV push to be given. Sputum cultures/BAL cultures are still pending patient is developing worsening leukocytosis was W7 23.6 hemoglobin 8.9, BUN today is 106 creatinine 2.45. Patient remains on bronchodilators, remains on diuretics, presently off antibiotics patient is also on amiodarone at 100 mg by mouth daily and she is on eliquis. Patient was reevaluated today on 03/16/2023, patient is feeling better today, breathing easier, she remains on diuretics, yesterday I gave her an extra dose of Lasix because she was sounding quite wet. Patient is on 4 L nasal cannula, not in distress, however her white count seems to be on the rise up to 30.3 with hemoglobin of 8 electrolytes are normal and BUN is 96 creatinine 2.30 actually better than yesterday in spite of the extra dose of Lasix given yesterday. Chest x-ray today showed improvement in her interstitial edema but not completely resolved Reevaluated today on 03/17/2023, patient is scheduled to undergo cardiac catheterization today, she was cleared for cardiac catheterization by nephrology and she did receive a dose of Lasix earlier today by nephrology as the patient seems to be in congestive heart failure again. Patient is maintained on Lasix at 40 mg daily, but intermittently we have been giving her an extra dose of La six and I believe the patient should go back to her maintenance dose of Lasix which is 40 mg twice a day and she has been on this dose for a long time. Otherwise the patient will continue to have episodes of congestive heart failure. Her FiO2 requirement went up to 5 L nasal cannula, and O2 saturations remains marginal at 91% at best. Blood pressure is also marginal with systolic of 94 and diastolic of 68. All x-rays recently have demonstrated evidence of congestive heart failure Patient was reevaluated today on 03/18/2023, patient had right-sided cardiac catheterization yesterday, had a mean pulmonary capillary wedge pressure was noted noted to be 25. Pulmonary artery pressure 44/23, mean of 31, right atrial pressure was 11, clearly the patient had elevated biventricular filling pre ssures and evidence of pulmonary hypertension. Patient is now on Bumex replacing Lasix and her Bumex dose is 2 mg IV push every 12 hours patient remains on midodrine to support her blood pressure, and overall she seems to be doing a bit better, nonetheless clinically she still sounds wet, and she is in pulmonary edema patient is on 3 L nasal cannula, O2 sats 91% and blood pressure this morning is 90/59 with a mean of 69 Reevaluated today on 03/19/2023, patient is steadily feeling better, she seems to be doing much better with the new regimen of Bumex for her congestive heart failure. Patient remains on 3 L nasal cannula with O2 sats of 92%, less cough and less wheezing less shortness of breath, but nonetheless not back to her baseline. Patient remains in negative fluid balance, over a liter and a half in the last 24 hours. WBC count is 25.9 hemoglobin is 10.6 basic metabolic profile is normal renal profile is slightly worse today with creatinine 2.31 looking back at this patient's BAL cultures from 03/12, patient came back positive for stenotrophomonas and for MRSA. Hence I'm recommending infectious disease consultation on this patient, it's kind of challenging as what antibiotics he could be used. on this patient specially with her renal functioning as bad as it is. Patient was reevaluated today on 03/20/2023, basically the patient is about the same, not making much improvement but she does not seem to be in any distress, her clinical findings are mostly findings of crackles and rhonchi and wheezes noted bilaterally. Patient remains on 3 L nasal cannula with O2 sats 74% at best. infectious disease was consulted yesterday regarding her abnormal cultures from the BAL. CT of the chest which was done yesterday was also noted showing diffuse interstitial changes consistent with congestive heart failure, underlying pneumonitis is not entirely ruled out, but felt to be less likely. No specific antibiotics were suggested by infectious case at this point, patient does have multiple ALLERGIES and she is on multiple medications presently that interact with different antibiotics. Objective - Vital Signs Vital signs: Vital Signs Temp 98 F 03/20/23 08:00 Pulse 64 03/20/23 08:00 Resp 18 03/20/23 08:00 BP 97/64 03/20/23 08:00 Pulse Ox 94 L 03/20/23 08:00 FiO2 10 03/11/23 07:00 Intake & Output 03/19/23 03/20/23 03/20/23 18:59 06:59 18:59 Intake Total 356 200 118 Output Total 700 1200 Balance -344 -1000 118 Weight 74.2 kg Intake: Oral 356 200 118 Output: Urine 700 1200 Other: Voiding Method External Catheter External Catheter - Exam Physical Exam: Revealed a 67-year-old female in no distress on 3 L nasal cannula, O2 sats is 94% HEENT:[Neck is supple.] [No neck masses.] [No thyromegaly.] [No JVD.] Chest: Continues to have Crackles and rhonchi noted bilaterally Cardiac Exam: Irregular irregular rhythm. [Normal S1 and S[Minimal2, no S3 gallop,3/6 systolic murmur thought the precordium Abdomen: [Soft, nontender, no megaly, no rebound, no guarding, normal bowel sounds.] Extremities: [No clubbing, trace of bipedal edema, no cyanosis.] Neurological Exam: [No focal neurologic deficit.] Alert and oriented 3. Psychiatric: Normal mood, affect and normal mental status examination Skin: No rashes - Labs CBC & Chem 7: 03/20/23 06:54 03/20/23 06:45 Labs: Abnormal Lab Results - Last 24 Hours (Table) 03/19/23 03/19/23 03/20/23 Range/Units 07:49 07:49 06:45 WBC (3.8-10.6) k/uL RBC (3.80-5.40) m/uL Hgb (11.4-16.0) gm/dL Hct (34.0-46.0) % RDW (11.5-15.5) % Neutrophils # (1.3-7.7) k/uL Chloride 94 L (98-107) mmol/L BUN 89 H (7-17) mg/dL Creatinine 2.07 H (0.52-1.04) mg/dL Glucose 123 H (74-99) mg/dL C-Reactive Protein 1.7 H (<1.0) mg/dL Procalcitonin 0.25 H (0.02-0.09) ng/mL 03/20/23 Range/Units 06:54 WBC 19.7 H (3.8-10.6) k/uL RBC 3.25 L (3.80-5.40) m/uL Hgb 10.3 L (11.4-16.0) gm/dL Hct 30.9 L (34.0-46.0) % RDW 17.6 H (11.5-15.5) % Neutrophils # 17.8 H (1.3-7.7) k/uL Chloride (98-107) mmol/L BUN (7-17) mg/dL Creatinine (0.52-1.04) mg/dL Glucose (74-99) mg/dL C-Reactive Protein (<1.0) mg/dL Procalcitonin (0.02-0.09) ng/mL Assessment and Plan Assessment: Impression: Acute on chronic hypoxic respiratory failure, multifactorial Acute on chronic systolic congestive heart failure Possible underlying pneumonia secondary to MRSA and stenotrophomonas, this was noted on the BAL from 03/12 Acute exacerbation of COPD Atrial fibrillation with RVR History of DVT and pulmonary embolism Chronic cor pulmonale Moderate severe pulmonary hypertension Chronic kidney disease stage III Coronary arteriosclerosis and previous stent placement Recommendation: Input from infectious disease is appreciated. Continue Bumex, and continue to monitor renal profile Continue midodrine Continue bronchodilators Continue amiodarone Continue oral prednisone and taper on outpatient basis CODE STATUS is full code. Discussed her condition today with her and her and her admitting physician Prognosis is poor and guarded Still not ready for discharge. We will continue to follow Time with Patient: Less than 30
--- NOTE | 2023-03-20 14:33 | XR ---
EXAMINATION TYPE: XR chest 1V portable DATE OF EXAM: 03/20/2023 COMPARISON: 03/19/2023 HISTORY: Shortness of breath TECHNIQUE: Single frontal view of the chest is obtained. FINDINGS: There is been no change in the moderate to marked cardiomegaly and diffuse abnormal interstitial opac ity rectally reflecting interstitial edema. There is a persistent small right pleural effusion. There is no pneumothorax or dense airspace consolidation. The osseous structures are intact IMPRESSION: Findings most consistent with moderate CHF with no interval change.
[2023-03-20] MEDS: IPRATROPIUM-ALBUTEROL 3 ML NEB INHALATION PRN (14:34)
--- NOTE | 2023-03-20 15:14 | P.PN ---
Subjective Progress Note Date: 03/20/23 HISTORY OF PRESENT ILLNESS: The patient is 67-year-old female with known history of CAD, paroxysmal atrial fibrillation status post cardioversion, severe COPD who presented with worsening dyspnea. She continues to be on high flow oxygen, in sinus mechanism, feels better. She denies any chest discomfort, dizziness or palpitations. She had evidence of moderate cardiomyopathy. Hemodynamically she is stable, her urinary output has been good. There is no evidence of ventricular tachycardia. March 09: The patient feels better overall, she continues to be in sinus mechanism. Hemodynamically she is stable. She denies any chest discomfort or dizziness. She denies any nausea or vomiting. She has a prior history of COPD and her chest x-ray continues to show bilateral infiltrate. She had a known history of moderate cardiomyopathy. March 10: The patient became hypoxic during the night requiring BiPAP. She is in sinus mechanism with episodes of sinus bradycardia. There is occasional single PVCs but no evidence of atrial fibrillation. She is coughing but no significant sputum. She denies any chest discomfort, dizziness or palpitations. Her urinary output has been stable. She denies any nausea or vomiting. Her chest x-ray shows persistent infiltrate. March 11: The patient feels well this morning, she continues to have mild dyspnea but stable. She denies any chest discomfort, dizziness or palpitations. She continues to be in sinus mechanism with stable blood pressure. Her urinary output is good. She has no nausea or vomiting. March 12: The patient is feeling relatively well this morning she continues to be dyspneic and fatigued. She had bronchoscopy yesterday and removal of mucous plugging and secretions. She continues to be in sinus mechanism with sinus bradycardia. There is no evidence of recurrent atrial fibrillation. Her blood pressure has been stable. She is on no vasopressors. Her urinary output has been stable. Her chest x-ray continues to show bilateral infiltrate. She continues to be on IV Lasix. March 13: She is feeling well this morning, she denies any chest discomfort or dizziness. She is coughing but feels better overall. She denies any nausea or vomiting. She continues to be in sinus mechanism with stable blood pressure. She continues to have some wheezing. She is on oral diuretics. March 14: The patient is feeling better, her breathing is better. She denies any chest discomfort, dizziness or palpitations. She continues to be in sinus mechanism. She appears to be stronger. She has no nausea or vomiting. 03/15/2023 Patient examined this morning at the bedside. Patient denies chest pain or pressure. She continues to report shortness of breath but states it is slightly better compared to yesterday. She remains on supplemental oxygen maintaining oxygen saturation greater than 92%.. She was given a one-time dose of IV Lasix today per pulmonary. Creatinine today 2.45. Blood pressure is stable. Telemetry reveals sinus mechanism. 03/16/2023 Patient examined this morning at the bedside. Family present. She denies chest pain or pressure. She reports SOB that is unchanged. She remains on oral diuretics. Vital signs are stable. 03/18/2023 Patient examined this morning at the bedside. She is status post right-sided heart catheterization revealing elevated biventricular filling pressures and pulmonary hypertension. Patient is sitting up in the chair at the time of examination. She states her breathing feels slightly improved compared to yesterday. She has been started on IV Bumex 2 mg every 12 hours. Creatinine today 2.22. 03/19/2023 Patient examined this morning at the bedside. Patient currently denies chest pain or pressure. She reports mild shortness of breath. She remains on IV Bumex 2 mg every 12 hours. Creatinine 2.31 today. Urine output over the last 24 hours is 1500 mL. Vital signs are stable. 03/20/2023 She reports feeling so-so, still has shortness of breath. She is on 5 L nasal cannula O2. Chest x-ray today does show improvement from 1 week ago. Creatinine 2.07. PHYSICAL EXAM: VITAL SIGNS: Reviewed. GENERAL: Well-developed in no acute distress. NECK: Supple. No JVD LUNGS: Respirations even and unlabored. Lungs with bilateral rhonchi noted. On 5 L nasal cannula O2. HEART: Regular rate and rhythm. S1 and S2 heard. Systolic murmur noted EXTREMITIES: Normal range of motion. No clubbing or cyanosis. Peripheral pulses intact. Trace bilateral lower extremity edema ASSESSMENT: Acute hypoxic respiratory failure secondary to combination of CHF, possible pneumonia, and exacerbation of COPD Status post bronchoscopy History of coronary artery disease with previous stenting Paroxysmal atrial fibrillation, currently maintaining sinus mechanism Status post cardioversion with sinus bradycardia Chronic kidney disease Ischemic cardiomyopathy, ejection fraction 40% Valvular heart disease including moderate AI, mild , and mild TR Status post right heart cath revealing elevated biventricular filling pressures and pulmonary hypertension PLAN: She is slowly improving. Continue current cardiac medications. Continue IV diuretics, Bumex 2 mg daily 12 hours. Daily weights, accurate I&O, monitor kidney function. Further recommendations pending patient's course. Will follow. Nurse practitioner note has been reviewed by physician. Signing provider agrees with the documented findings, assessment, and plan of care. Objective - Vital Signs Vital signs: Vital Signs Temp 97.3 F L 03/20/23 12:08 Pulse 64 03/20/23 14:52 Resp 18 03/20/23 13:37 BP 96/61 03/20/23 13:37 Pulse Ox 93 L 03/20/23 14:40 FiO2 10 03/11/23 07:00 Intake & Output 03/19/23 03/20/23 03/20/23 18:59 06:59 18:59 Intake Total 356 200 354 Output Total 700 1200 Balance -344 -1000 354 Weight 74.2 kg Intake: Oral 356 200 354 Output: Urine 700 1200 Other: Voiding Method External Catheter External Catheter External Catheter - Labs CBC & Chem 7: 03/20/23 06:54 03/20/23 06:45 Labs: Abnormal Lab Results - Last 24 Hours (Table) 03/19/23 03/20/23 03/20/23 Range/Units 07:49 06:45 06:54 WBC 19.7 H (3.8-10.6) k/uL RBC 3.25 L (3.80-5.40) m/uL Hgb 10.3 L (11.4-16.0) gm/dL Hct 30.9 L (34.0-46.0) % RDW 17.6 H (11.5-15.5) % Neutrophils # 17.8 H (1.3-7.7) k/uL Chloride 94 L (98-107) mmol/L BUN 89 H (7-17) mg/dL Creatinine 2.07 H (0.52-1.04) mg/dL Glucose 123 H (74-99) mg/dL Procalcitonin 0.25 H (0.02-0.09) ng/mL
[2023-03-20] MEDS: HYDROcodone/APAP 5-325MG 1 EACH TAB PO PRN (19:52)
[2023-03-20] MEDS: SERTRALINE 100 MG TAB PO SCH (19:52)
[2023-03-20] MEDS: ATORVASTATIN 20 MG TAB PO SCH (19:52)
[2023-03-20] MEDS: ACETAMINOPHEN TAB 325 MG TAB PO PRN (19:56)
[2023-03-20] MEDS: guaiFENesin 600 MG TABLET.ER PO SCH (20:29)
[2023-03-21] MEDS: ALPRAZolam 0.5 MG TAB PO PRN (00:17)
[2023-03-21 05:32] LABS: Glucose,Whole Blood 129 mg/dL (70-110)
[2023-03-21] MEDS: LEVOTHYROXINE 75 MCG TAB PO SCH (07:02)
[2023-03-21] MEDS: SYMBICORT 160-4.5 MCG INHALER INHALATION SCH ×2 (07:41→21:31)
[2023-03-21] MEDS: IPRATROPIUM-ALBUTEROL 3 ML NEB INHALATION SCH ×2 (07:41→13:32)
[2023-03-21] MEDS: MIDODRINE 5 MG TAB PO SCH ×2 (07:44→12:34)
[2023-03-21] MEDS: polyethylene glycoL 3350 17 GM POWD.PACK PO SCH (07:54)
[2023-03-21 08:02] LABS: ABG Base Excess 8.1 mmol/L; ABG HCO3 31 mmol/L (21-25); ABG Oxygen Saturation 98.1 % (94-97); ABG PCO2 41 mmHg (35-45); ABG PO2 90 mmHg (83-108); ABG TCO2 33 mmol/L (19-24); Allen Test Performed? Yes
[2023-03-21] MEDS: PANTOPRAZOLE 40 MG/10 ML VIAL IVP SCH (08:03)
[2023-03-21] MEDS: APIXABAN 2.5 MG TABLET PO SCH (08:04)
[2023-03-21] MEDS: guaiFENesin 600 MG TABLET.ER PO SCH ×2 (08:04→20:02)
[2023-03-21] MEDS: GABAPENTIN 100 MG CAP PO SCH ×3 (08:04→20:02)
[2023-03-21] MEDS: DOCUSATE 100 MG CAP PO SCH (08:04)
[2023-03-21] MEDS: AMIODARONE 100 MG TAB PO SCH (08:04)
[2023-03-21] MEDS: DAPAGLIFLOZIN PROPANEDIOL 10 MG TABLET PO SCH (08:04)
[2023-03-21] MEDS: predniSONE 10 MG TAB PO SCH (08:04)
[2023-03-21] MEDS: METOPROLOL TARTRATE 50 MG TAB PO SCH ×2 (08:04→20:02)
--- NOTE | 2023-03-21 08:27 | XR ---
EXAMINATION TYPE: XR chest 1V portable DATE OF EXAM: 03/21/2023 8:18 AM CLINICAL INDICATION:Female, 67 years old with history of hypoxia; [facility] COMPARISON: Chest radiograph from one day prior. TECHNIQUE: XR chest 1V portable Frontal view of the chest. FINDINGS: Lungs/Pleura: There is no evidence of pleural effusion, focal consolidation, or pneumothorax. Pulmonary vascularity: Pulmonary vascular congestion. Heart/mediastinum: Cardiomediastinal silhouette is enlarged and stable. Musculoskeletal: No acute osseous pathology. IMPRESSION: Cardiomegaly and mild pulmonary vascular congestion. Correlate with BNP for congestive heart failure.
--- NOTE | 2023-03-21 09:48 | P.PN ---
Subjective Progress Note Date: 03/20/23 Principal diagnosis: Reason for follow-up is positive BAL culture with stenotrophomonas and MRSA Patient is a 67-year-old female with a past medical history significant for coronary disease asthma atrial fibrillation hyperlipidemia hypertension patient is in the hospital for more than 3 weeks now, presenting to the hospital for evaluation of increasing shortness of breath patient did have bronchoscopy on 03/11/2023 culture subsequently grew MRSA and stenotrophomonas prompted this infectious disease consultation. On today's evaluation that is 03/20/2023 patient denies having any fever or any chills patient is currently breathing comfortably on 5 L nasal cannula oxygen patient denies having any chest pain no worsening cough or sputum production some nausea vomiting no abdominal pain no diarrhea. The patient white count is down to 19.7 creatinine 2.07 Pro-Jude 0.[address] of the chest COPD with moderate advanced emphysema diffuse bilateral groundglass density greatest in the lower lungs with multiple differential given by radiologist Objective - Vital Signs Vital signs: Vital Signs Temp 98 F 03/20/23 08:00 Pulse 64 03/20/23 08:00 Resp 18 03/20/23 08:00 BP 97/64 03/20/23 08:00 Pulse Ox 94 L 03/20/23 08:00 FiO2 10 03/11/23 07:00 Intake & Output 03/19/23 03/20/23 03/20/23 18:59 06:59 18:59 Intake Total 356 200 118 Output Total 700 1200 Balance -344 -1000 118 Weight 74.2 kg Intake: Oral 356 200 118 Output: Urine 700 1200 Other: Voiding Method External Catheter External Catheter - Exam GENERAL DESCRIPTION: Elderly female lying in bed in no distress RESPIRATORY SYSTEM: Unlabored breathing , coarse breath sounds bilaterally HEART: S1 S2 regular rate and rhythm ABDOMEN: Soft , no tenderness EXTREMITIES: No edema feet - Labs CBC & Chem 7: 03/20/23 06:54 03/20/23 06:45 Labs: Abnormal Lab Results - Last 24 Hours (Table) 03/19/23 03/19/23 03/20/23 Range/Units 07:49 07:49 06:45 WBC (3.8-10.6) k/uL RBC (3.80-5.40) m/uL Hgb (11.4-16.0) gm/dL Hct (34.0-46.0) % RDW (11.5-15.5) % Neutrophils # (1.3-7.7) k/uL Chloride 94 L (98-107) mmol/L BUN 89 H (7-17) mg/dL Creatinine 2.07 H (0.52-1.04) mg/dL Glucose 123 H (74-99) mg/dL C-Reactive Protein 1.7 H (<1.0) mg/dL Procalcitonin 0.25 H (0.02-0.09) ng/mL 03/20/23 Range/Units 06:54 WBC 19.7 H (3.8-10.6) k/uL RBC 3.25 L (3.80-5.40) m/uL Hgb 10.3 L (11.4-16.0) gm/dL Hct 30.9 L (34.0-46.0) % RDW 17.6 H (11.5-15.5) % Neutrophils # 17.8 H (1.3-7.7) k/uL Chloride (98-107) mmol/L BUN (7-17) mg/dL Creatinine (0.52-1.04) mg/dL Glucose (74-99) mg/dL C-Reactive Protein (<1.0) mg/dL Procalcitonin (0.02-0.09) ng/mL Assessment and Plan (1) MRSA (methicillin resistant staph aureus) culture positive Current Visit: Yes Status: Acute Code(s): Z22.322 - CARRIER OR SUSPECTED CARRIER OF METHICILLIN RESIS STAPH SNOMED Code(s): 445725933 (2) Allergy to multiple antibiotics Current Visit: No Status: Acute Code(s): Z88.1 - ALLERGY STATUS TO OTHER ANTIBIOTIC AGENTS SNOMED Code(s): 532538244 (3) Renal insufficiency Current Visit: No Status: Acute Code(s): N28.9 - DISORDER OF KIDNEY AND URETER, UNSPECIFIED SNOMED Code(s): 932339843 Plan: 1patient with a very complicated history who is in the hospital for more than 3 weeks infectious disease consulted today for a BAL culture positive for stenotrophomonas and MRSA that was done on 03/11/2023, patient however did not have any fever from 03/11/2023 until today patient did have elevated white count however the white count is trending down and the patient mentions some improvement in her symptoms chest x-ray completed this morning cardiomegaly with mild pulmonary vascular congestion correlate with the BNP for congestive heart failure, patient is clinically not behaving as pneumonia with a question of tracheobronchitis versus colonization 2CT of the chest did shows COPD with moderate to severe emphysema diffuse bilateral groundglass density in the lower lungs did not mention any consolidation. 3-patient procalcitonin is only 0.25 I would have expected a very high level if we are dealing with a true MRSA and stenotrophomonas pneumonia 4-keeping in mind her multiple allergies comorbidities and drug interactions with the potential treatment and clinical suspicious remains to be low for true infection I will monitor the patient closely off antibiotic therapy this was explained to the patient and the in layman terms questions concern answered Dictation was produced using [employer] software. please excuse any grammatical, word or spelling errors.
[2023-03-21 10:23] LABS: Anisocytosis Slight; HCT 32.4 % (34.0-46.0); HGB 10.5 gm/dL (11.4-16.0); Hypochromasia Slight; MCH 31.4 pg (25.0-35.0); MCHC 32.5 g/dL (31.0-37.0); MCV 96.5 fL (80.0-100.0); Macrocytosis Slight; Mean Platelet Volume 8.6; Platelet Count 138 k/uL (150-450); RBC 3.36 m/uL (3.80-5.40); RDW 17.8 % (11.5-15.5); WBC 41.8 k/uL (3.8-10.6)
[2023-03-21 10:40] LABS: African American GFR (CKD) 27 (>60 ml/min/1.73 sqM); Anion Gap 14 mmol/L; Blood Urea Nitrogen 94 mg/dL (7-17); Calcium 8.9 mg/dL (8.4-10.2); Carbon Dioxide 27 mmol/L (22-30); Chloride 92 mmol/L (98-107); Glucose 158 mg/dL (74-99); Non-African American GFR(CKD) 23 (>60 ml/min/1.73 sqM); Sodium 133 mmol/L (137-145)
[2023-03-21 10:41] LABS: Magnesium 1.9 mg/dL (1.6-2.3); Potassium 4.5 mmol/L (3.5-5.1)
--- NOTE | 2023-03-21 10:59 | P.PN ---
Subjective Patient is seen for follow-up for chronic kidney disease and acute kidney injury. Renal function has been stable. Maintained on Bumex IV. Shortness of breath is stable. Serum creatinine increased to 2.1 mg/dL today. Objective - Vital Signs Vital signs: Vital Signs Temp 98.1 F 03/21/23 07:32 Pulse 67 03/21/23 10:47 Resp 20 03/21/23 10:47 BP 86/57 03/21/23 10:47 Pulse Ox 97 03/21/23 10:47 FiO2 35 03/21/23 04:17 Intake & Output 03/20/23 03/21/23 03/21/23 18:59 06:59 18:59 Intake Total 590 240 Output Total 950 Balance 590 -950 240 Weight 74 kg Intake: Oral 590 240 Output: Urine 950 Other: Voiding Method External Catheter External Catheter External Catheter # Bowel Movements 1 - Exam Patient is comfortable, No acute distress Examination of the heart S1 and S2 Examination the lungs decreased breath sounds at the bases Abdomen is soft nontender Examination lower extremity shows no significant edema [employer] exam grossly intact - Labs CBC & Chem 7: 03/21/23 09:49 03/21/23 09:49 Labs: Abnormal Lab Results - Last 24 Hours (Table) 03/21/23 03/21/23 03/21/23 Range/Units 05:30 07:57 09:49 WBC 41.8 H (3.8-10.6) k/uL RBC 3.36 L (3.80-5.40) m/uL Hgb 10.5 L (11.4-16.0) gm/dL Hct 32.4 L (34.0-46.0) % RDW 17.8 H (11.5-15.5) % Plt Count 138 L (150-450) k/uL ABG pH 7.50 H (7.35-7.45) ABG HCO3 31 H (21-25) mmol/L ABG Total CO2 33 H (19-24) mmol/L ABG O2 Saturation 98.1 H (94-97) % Sodium (137-145) mmol/L Chloride (98-107) mmol/L BUN (7-17) mg/dL Creatinine (0.52-1.04) mg/dL Glucose (74-99) mg/dL POC Glucose (mg/dL) 129 H (70-110) mg/dL Plasma Lactic Acid Jose (0.7-2.0) mmol/L 03/21/23 03/21/23 Range/Units 09:49 09:49 WBC (3.8-10.6) k/uL RBC (3.80-5.40) m/uL Hgb (11.4-16.0) gm/dL Hct (34.0-46.0) % RDW (11.5-15.5) % Plt Count (150-450) k/uL ABG pH (7.35-7.45) ABG HCO3 (21-25) mmol/L ABG Total CO2 (19-24) mmol/L ABG O2 Saturation (94-97) % Sodium 133 L (137-145) mmol/L Chloride 92 L (98-107) mmol/L BUN 94 H (7-17) mg/dL Creatinine 2.14 H (0.52-1.04) mg/dL Glucose 158 H (74-99) mg/dL POC Glucose (mg/dL) (70-110) mg/dL Plasma Lactic Acid Jose 2.7 H* (0.7-2.0) mmol/L Assessment and Plan Assessment: 1. Chronic kidney disease stage IV with baseline creatinine 1.5 - 2 secondary to cardiorenal syndrome and nephrosclerosis. Fluctuation in renal function based on volume status and diuresis. Atrophic kidneys noted on renal ultrasound done January 2023. 2. A. fib with RVR maintained on amiodarone and Lopressor. Status post cardioversion and ARCADIO. 3. Hypotension status post levo fed. Currently maintained on midodrine. 4. Hypervolemic hyponatremia. Stable. 5. Hypokalemia from diuresis. Replaced. Better. 6. Acute on chronic systolic CHF with ejection fraction of 40% with moderate aortic insufficiency. 7. History of coronary artery disease with cardiac stenting. 8. Volume overload. Improving with diuresis. 9. Hypomagnesemia from diuresis. Replaced. Better. 10. Right lung opacification secondary to mucous plug. Pulmonology following. Status post bronchoscopy with significant bronchoalveolar lavage for thick mucus Plan: continue with IV Bumex Repeat labs in a.m. Continue with salt and fluid restriction. Increase ambulation as tolerated
[2023-03-21 11:11] LABS: Monocytes # (M) 1.25 k/uL (0-1.0); Nucleated Red Blood Cells 0 /100 WBC (0-0)
[2023-03-21 11:14] LABS: Lymphocytes # (M) 0.42 k/uL (1.0-4.8); Neutrophils # (M) 40.13 k/uL (1.3-7.7); Neutrophils % (M) 96 %; Total Cells Counted 102
--- NOTE | 2023-03-21 11:46 | P.PN ---
Subjective Progress Note Date: 03/21/23 Principal diagnosis: Acute on chronic hypoxic respiratory failure, multifactorial secondary to acute on chronic diastolic congestive heart failure, underlying COPD, with acute exac erbation This is a pleasant 67-year-old female who is had multiple readmissions to the hospital. 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 She had been on the selective care unit. Today she developed hypotension, atrial fibrillation with a rapid ventricular response increasing shortness of breath cough and congestion and was transferred to the intensive care unit. She is seen today in consultation. She is quite weak and debilitated. Her daughter is at the bedside. She is currently maintaining O2 saturations in the upper 90s on 2 L/m per nasal cannula. Blood pressure 80/50. Heart rate 109. Afebrile. Chest x- ray reveals moderate cardiomegaly with diffuse interstitial infiltrates. Count 8.2. Hemoglobin 12.0. Platelets 239. Sodium 137. Potassium 3.5. Bicarb 25. BUN 31. Creatinine 1.78. Glucose 112. Urinalysis cloudy with moderate blood and large leukocyte esterase and high WBCs with many bacteria. She is currently on DuoNeb inhalations, Symbicort, Singulair and ceftriaxone. Anticoagulation on hold for possible heart catheterization tomorrow. Patient was reevaluated today on 02/28/23 patient is still in the ICU, I saw her yesterday, overnight the patient had worsening atrial fibrillation with RVR, remains poorly controlled, she required norepinephrine last night but this was discontinued this morning. Patient developed worsening congestive heart failure with interstitial edema as noted on the chest x-ray today, hence I recommended that we start the patient on Lasix drip at 10 mg per hour cut down her IV fluid to KVO, continue patient on ceftriaxone since the Procrit started level is 0.26 today my clinical suspicion for pneumonia is rather low, but it is hard to tell based on the chest x-ray findings since the chest x-ray is showing mostly bi lateral interstitial edema. Patient seems to be comfortable, she is not in distress, she is on 3 L nasal cannula but on physical examination she had significant crackles or rhonchi and wheezes bilaterally. And hoping the Lasix drip will improve her pulmonary symptoms WBC count today is 10.5 hemoglobin is 11.4 basic metabolic profile is normal BUN is 27 creatinine 1.75, pro-calcitonin level is 0.26, patient is empirically on Rocephin. 03/12/2023, the patient is feeling much better. She underwent bronchoscopy and therapeutic airway suctioning and copious amounts blister secretions were sucti oned out. Following that, there was significant improvement in oxygenation. This morning, the patient is down to 4 L of O2 nasal cannula. Her pulse ox is 97%. Cough is less congested. The sputum was sent for culture analysis and is also still pending for now. Chest x-ray findings are stable. The patient was switched to oral Lasix and the patient has a slight rise in the creatinine which is up to 2.12. Cardiology noted that in the switched him to Lasix 40 mg by mouth twice a day. The white cycles of 19.1, hemoglobin 9.5, BUN is at 86 with a creatinine of 2.1 and his sodium level is at 138. She feels significantly improved compared to yesterday. At the same time, she remains on bron chodilators. She remains on IV cefepime. She is also on anticoagulation with Eliquis. Cardiac rhythm is sinus bradycardia. The patient remains on amiodarone. She remains on metoprolol 50 mg by mouth twice a day. She is using the incentive spirometer. She is tolerating her diet. She is in much better condition. Note that the bronchoscopy showed significant amount of tracheobronchomalacia. The bronchial alveolar lavage was sent for microbial cultures and there is also still pending for now. On 03/13/2023, the patient is on 3 L of oxygen by nasal cannula, calm and comfortable and she denies having any specific complaints. Her night was uneventful. She still on diuretics. She was switched to oral Lasix. Her cardiac rhythm is sinus any cardio. Amiodarone dose was adjusted by cardiology. Meanwhile, her white cell count of 18, hemoglobin is at 9.2 with a platelet count of 248. Urine is 98 with a creatinine of 2 and a sodium level is at 138. Fluid balance is in order of -2.1 L over the past 24 hours. Otherwise, she is tolerating diet, she is awake and alert and she is also communicating. I'm still awaiting the cultures from the bronchial alveolar lavage was sent earlier. The patient remains on IV cefepime and she completed her last those last night. She is on bronchodilators and she is on anticoagulation. She is also on IV Solu-Medrol which is going to be tapered down to 40 mg every 12 hours. 03/14/2023, the patient remains on 3-4 L. Doing well. Cough and congestion is subsided. Awaiting the results of the bronchial lavage and the microbial cultures and analysis. No specific complaints. Using the incentive spirometer. Remains on Lasix 40 mg by mouth daily. Remains on anticoagulation with Eliquis. Remains on bronchodilators. White cell count is at 21, hemoglobin was at 9, BUN is at 107 with a creatinine of 2.3 and a sodium levels of 136. Patient was reevaluated today on 03/15/2023, patient is still having significant pulmonary symptoms with intermittent cough and wheezing. Chest x-ray continues to show significant interstitial edema, diffuse interstitial opacities are worsening compared to the last few days, and on physical examination she has diffuse crackles and rhonchi bilaterally. Patient is on 4 L nasal cannula with O2 sats is 97%, surprisingly does not seem to be clinically in distress as expected based on the chest x-ray findings and based on the physical findings/pulmonary examination. Nonetheless I did recommend Lasix 40 mg IV push to be given. Sputum cultures/BAL cultures are still pending patient is developing worsening leukocytosis was W7 23.6 hemoglobin 8.9, BUN today is 106 creatinine 2.45. Patient remains on bronchodilators, remains on diuretics, presently off antibiotics patient is also on amiodarone at 100 mg by mouth daily and she is on eliquis. Patient was reevaluated today on 03/16/2023, patient is feeling better today, breathing easier, she remains on diuretics, yesterday I gave her an extra dose of Lasix because she was sounding quite wet. Patient is on 4 L nasal cannula, not in distress, however her white count seems to be on the rise up to 30.3 with hemoglobin of 8 electrolytes are normal and BUN is 96 creatinine 2.30 actually better than yesterday in spite of the extra dose of Lasix given yesterday. Chest x-ray today showed improvement in her interstitial edema but not completely resolved Reevaluated today on 03/17/2023, patient is scheduled to undergo cardiac catheterization today, she was cleared for cardiac catheterization by nephrology and she did receive a dose of Lasix earlier today by nephrology as the patient seems to be in congestive heart failure again. Patient is maintained on Lasix at 40 mg daily, but intermittently we have been giving her an extra dose of La six and I believe the patient should go back to her maintenance dose of Lasix which is 40 mg twice a day and she has been on this dose for a long time. Otherwise the patient will continue to have episodes of congestive heart failure. Her FiO2 requirement went up to 5 L nasal cannula, and O2 saturations remains marginal at 91% at best. Blood pressure is also marginal with systolic of 94 and diastolic of 68. All x-rays recently have demonstrated evidence of congestive heart failure Patient was reevaluated today on 03/18/2023, patient had right-sided cardiac catheterization yesterday, had a mean pulmonary capillary wedge pressure was noted noted to be 25. Pulmonary artery pressure 44/23, mean of 31, right atrial pressure was 11, clearly the patient had elevated biventricular filling pre ssures and evidence of pulmonary hypertension. Patient is now on Bumex replacing Lasix and her Bumex dose is 2 mg IV push every 12 hours patient remains on midodrine to support her blood pressure, and overall she seems to be doing a bit better, nonetheless clinically she still sounds wet, and she is in pulmonary edema patient is on 3 L nasal cannula, O2 sats 91% and blood pressure this morning is 90/59 with a mean of 69 Reevaluated today on 03/19/2023, patient is steadily feeling better, she seems to be doing much better with the new regimen of Bumex for her congestive heart failure. Patient remains on 3 L nasal cannula with O2 sats of 92%, less cough and less wheezing less shortness of breath, but nonetheless not back to her baseline. Patient remains in negative fluid balance, over a liter and a half in the last 24 hours. WBC count is 25.9 hemoglobin is 10.6 basic metabolic profile is normal renal profile is slightly worse today with creatinine 2.31 looking back at this patient's BAL cultures from 03/12, patient came back positive for stenotrophomonas and for MRSA. Hence I'm recommending infectious disease consultation on this patient, it's kind of challenging as what antibiotics he could be used. on this patient specially with her renal functioning as bad as it is. Patient was reevaluated today on 03/20/2023, basically the patient is about the same, not making much improvement but she does not seem to be in any distress, her clinical findings are mostly findings of crackles and rhonchi and wheezes noted bilaterally. Patient remains on 3 L nasal cannula with O2 sats 74% at best. infectious disease was consulted yesterday regarding her abnormal cultures from the BAL. CT of the chest which was done yesterday was also noted showing diffuse interstitial changes consistent with congestive heart failure, underlying pneumonitis is not entirely ruled out, but felt to be less likely. No specific antibiotics were suggested by infectious case at this point, patient does have multiple ALLERGIES and she is on multiple medications presently that interact with different antibiotics. Patient was reevaluated today on 03/21/2023, no major changes except her chest x-ray is showing significant improvement today. Actually her chest x-ray is significantly improved compared to the last x-rays from few days ago. Clinically the patient is about the same continues to have shortness of breath, intermittent cough, and wheezing. Remains on Bumex, bronchodilators, and st eroids, surprisingly the patient had a significant increase in her white count today up to 41.8 hemoglobin is 10.5. Basic metabolic profile is relatively normal BUN is 94 creatinine is up to 2.14, pro calcitonin level from few days ago was 0.25, infectious disease was consulted to address antibiotics on this patient, remind you patient has significant intolerance to left of antibiotics, and considering her renal status patient baby high risk for antibiotics including vancomycin and Bactrim for previous BAL cultures. At any rate I am leaving it up to infectious disease to decide on this patient antibiotic specially now with her leukocytosis or leukemoid reaction as noted today Objective - Vital Signs Vital signs: Vital Signs Temp 97.9 F 03/21/23 11:19 Pulse 63 03/21/23 11:19 Resp 20 03/21/23 11:19 BP 97/63 03/21/23 11:19 Pulse Ox 96 03/21/23 11:19 FiO2 35 03/21/23 04:17 Intake & Output 03/20/23 03/21/23 03/21/23 18:59 06:59 18:59 Intake Total 590 240 Output Total 950 Balance 590 -950 240 Weight 74 kg Intake: Oral 590 240 Output: Urine 950 Other: Voiding Method External Catheter External Catheter External Catheter # Bowel Movements 1 - Exam Physical Exam: Revealed a 67-year-old female in no distress on 4 L nasal cannula, O2 sats is 96% HEENT:[Neck is supple.] [No neck masses.] [No thyromegaly.] [No JVD.] Chest: Continues to have Crackles and rhonchi noted bilaterally Cardiac Exam: Irregular irregular rhythm. [Normal S1 and S[Minimal2, no S3 gallop,3/6 systolic murmur thought the precordium Abdomen: [Soft, nontender, no megaly, no rebound, no guarding, normal bowel sounds.] Extremities: [No clubbing, trace of bipedal edema, no cyanosis.] Neurological Exam: [No focal neurologic deficit.] Alert and oriented 3. Psychiatric: Normal mood, affect and normal mental status examination Skin: No rashes - Labs CBC & Chem 7: 03/21/23 09:49 03/21/23 09:49 Labs: Abnormal Lab Results - Last 24 Hours (Table) 03/21/23 03/21/23 03/21/23 Range/Units 05:30 07:57 09:49 WBC 41.8 H (3.8-10.6) k/uL RBC 3.36 L (3.80-5.40) m/uL Hgb 10.5 L (11.4-16.0) gm/dL Hct 32.4 L (34.0-46.0) % RDW 17.8 H (11.5-15.5) % Plt Count 138 L (150-450) k/uL Neutrophils # (Manual) 40.13 H (1.3-7.7) k/uL Lymphocytes # (Manual) 0.42 L (1.0-4.8) k/uL Monocytes # (Manual) 1.25 H (0-1.0) k/uL ABG pH 7.50 H (7.35-7.45) ABG HCO3 31 H (21-25) mmol/L ABG Total CO2 33 H (19-24) mmol/L ABG O2 Saturation 98.1 H (94-97) % Sodium (137-145) mmol/L Chloride (98-107) mmol/L BUN (7-17) mg/dL Creatinine (0.52-1.04) mg/dL Glucose (74-99) mg/dL POC Glucose (mg/dL) 129 H (70-110) mg/dL Plasma Lactic Acid Jose (0.7-2.0) mmol/L 03/21/23 03/21/23 Range/Units 09:49 09:49 WBC (3.8-10.6) k/uL RBC (3.80-5.40) m/uL Hgb (11.4-16.0) gm/dL Hct (34.0-46.0) % RDW (11.5-15.5) % Plt Count (150-450) k/uL Neutrophils # (Manual) (1.3-7.7) k/uL Lymphocytes # (Manual) (1.0-4.8) k/uL Monocytes # (Manual) (0-1.0) k/uL ABG pH (7.35-7.45) ABG HCO3 (21-25) mmol/L ABG Total CO2 (19-24) mmol/L ABG O2 Saturation (94-97) % Sodium 133 L (137-145) mmol/L Chloride 92 L (98-107) mmol/L BUN 94 H (7-17) mg/dL Creatinine 2.14 H (0.52-1.04) mg/dL Glucose 158 H (74-99) mg/dL POC Glucose (mg/dL) (70-110) mg/dL Plasma Lactic Acid Jose 2.7 H* (0.7-2.0) mmol/L Assessment and Plan Assessment: Impression: Acute on chronic hypoxic respiratory failure, multifactorial Acute on chronic systolic congestive heart failure Possible underlying pneumonia secondary to MRSA and stenotrophomonas, this was noted on the BAL from 03/12, being addressed by infectious disease on the case. Acute exacerbation of COPD Atrial fibrillation with RVR History of DVT and pulmonary embolism Chronic cor pulmonale Moderate severe pulmonary hypertension Chronic kidney disease stage III Coronary arteriosclerosis and previous stent placement Recommendation: Continue Bumex, and continue to monitor renal profile Continue midodrine Continue bronchodilators Continue amiodarone Continue oral prednisone and taper on outpatient basis CODE STATUS is full code. Patient and family were updated today at bedside on her overall condition and poor prognostic picture Prognosis remains guarded Still not ready for discharge. We will continue to follow Time with Patient: Less than 30
--- NOTE | 2023-03-21 12:32 | P.PN ---
Subjective Progress Note Date: 03/21/23 HISTORY OF PRESENT ILLNESS: The patient is 67-year-old female with known history of CAD, paroxysmal atrial fibrillation status post cardioversion, severe COPD who presented with worsening dyspnea. She continues to be on high flow oxygen, in sinus mechanism, feels better. She denies any chest discomfort, dizziness or palpitations. She had evidence of moderate cardiomyopathy. Hemodynamically she is stable, her urinary output has been good. There is no evidence of ventricular tachycardia. March 09: The patient feels better overall, she continues to be in sinus mechanism. Hemodynamically she is stable. She denies any chest discomfort or dizziness. She denies any nausea or vomiting. She has a prior history of COPD and her chest x-ray continues to show bilateral infiltrate. She had a known history of moderate cardiomyopathy. March 10: The patient became hypoxic during the night requiring BiPAP. She is in sinus mechanism with episodes of sinus bradycardia. There is occasional single PVCs but no evidence of atrial fibrillation. She is coughing but no significant sputum. She denies any chest discomfort, dizziness or palpitations. Her urinary output has been stable. She denies any nausea or vomiting. Her chest x-ray shows persistent infiltrate. March 11: The patient feels well this morning, she continues to have mild dyspnea but stable. She denies any chest discomfort, dizziness or palpitations. She continues to be in sinus mechanism with stable blood pressure. Her urinary output is good. She has no nausea or vomiting. March 12: The patient is feeling relatively well this morning she continues to be dyspneic and fatigued. She had bronchoscopy yesterday and removal of mucous plugging and secretions. She continues to be in sinus mechanism with sinus bradycardia. There is no evidence of recurrent atrial fibrillation. Her blood pressure has been stable. She is on no vasopressors. Her urinary output has been stable. Her chest x-ray continues to show bilateral infiltrate. She continues to be on IV Lasix. March 13: She is feeling well this morning, she denies any chest discomfort or dizziness. She is coughing but feels better overall. She denies any nausea or vomiting. She continues to be in sinus mechanism with stable blood pressure. She continues to have some wheezing. She is on oral diuretics. March 14: The patient is feeling better, her breathing is better. She denies any chest discomfort, dizziness or palpitations. She continues to be in sinus mechanism. She appears to be stronger. She has no nausea or vomiting. 03/15/2023 Patient examined this morning at the bedside. Patient denies chest pain or pressure. She continues to report shortness of breath but states it is slightly better compared to yesterday. She remains on supplemental oxygen maintaining oxygen saturation greater than 92%.. She was given a one-time dose of IV Lasix today per pulmonary. Creatinine today 2.45. Blood pressure is stable. Telemetry reveals sinus mechanism. 03/16/2023 Patient examined this morning at the bedside. Family present. She denies chest pain or pressure. She reports SOB that is unchanged. She remains on oral diuretics. Vital signs are stable. 03/18/2023 Patient examined this morning at the bedside. She is status post right-sided heart catheterization revealing elevated biventricular filling pressures and pulmonary hypertension. Patient is sitting up in the chair at the time of examination. She states her breathing feels slightly improved compared to yesterday. She has been started on IV Bumex 2 mg every 12 hours. Creatinine today 2.22. 03/19/2023 Patient examined this morning at the bedside. Patient currently denies chest pain or pressure. She reports mild shortness of breath. She remains on IV Bumex 2 mg every 12 hours. Creatinine 2.31 today. Urine output over the last 24 hours is 1500 mL. Vital signs are stable. 03/20/2023 She reports feeling so-so, still has shortness of breath. She is on 5 L nasal cannula O2. Chest x-ray today does show improvement from 1 week ago. Creatinine 2.07. 03/21 Patient states that she feels about the same from yesterday. No real improvement of her breathing. She continues to have a cough. No fever or chills. She has been maintained on IV Bumex 2 mg every 12 hours. Weight is down 6 kg over the past few days and she is in a negative fluid balance. Blood pressure is on the soft side was systolic 86-97, pulse ox 96% on 5 L nasal cannula, afebrile, heart rate in the 60s. Repeat blood work reveals WBC 41, hemoglobin 10.5. Sodium 133, potassium 4.5, BUN 94 and creatinine 2.14. Lactic acid 2.7. Troponin 0.0-6. PHYSICAL EXAM: VITAL SIGNS: Reviewed. GENERAL: Well-developed in no acute distress. NECK: Supple. No JVD LUNGS: Respirations even and unlabored. Lungs with bilateral rhonchi noted. On 5 L nasal cannula O2. HEART: Regular rate and rhythm. S1 and S2 heard. Systolic murmur noted EXTREMITIES: No clubbing or cyanosis. Peripheral pulses intact. Trace bi lateral lower extremity edema ASSESSMENT: Acute hypoxic respiratory failure secondary to combination of CHF, possible pneumonia, and exacerbation of COPD Status post bronchoscopy History of coronary artery disease with previous stenting Paroxysmal atrial fibrillation, currently maintaining sinus mechanism Status post cardioversion with sinus bradycardia Chronic kidney disease Ischemic cardiomyopathy, ejection fraction 40% Valvular heart disease including moderate AI, mild , and mild TR Status post right heart cath revealing elevated biventricular filling pressures and pulmonary hypertension PLAN: She is slowly improving. Continue current cardiac medications. Continue IV diuretics, Bumex 2 mg daily 12 hours. May consider decreasing diuretics tomorrow. Daily weights, accurate I&O, monitor kidney function. Further recommendations pending patient's course. Will follow. Nurse practitioner note has been reviewed by physician. Signing provider agrees with the documented findings, assessment, and plan of care. Objective - Vital Signs Vital signs: Vital Signs Temp 98.1 F 03/21/23 07:32 Pulse 67 03/21/23 10:47 Resp 20 03/21/23 10:47 BP 86/57 03/21/23 10:47 Pulse Ox 97 03/21/23 10:47 FiO2 35 03/21/23 04:17 Intake & Output 03/20/23 03/21/23 03/21/23 18:59 06:59 18:59 Intake Total 590 240 Output Total 950 Balance 590 -950 240 Weight 74 kg Intake: Oral 590 240 Output: Urine 950 Other: Voiding Method External Catheter External Catheter External Catheter # Bowel Movements 1 - Labs CBC & Chem 7: 03/21/23 09:49 03/21/23 09:49 Labs: Abnormal Lab Results - Last 24 Hours (Table) 03/21/23 03/21/23 03/21/23 Range/Units 05:30 07:57 09:49 WBC 41.8 H (3.8-10.6) k/uL RBC 3.36 L (3.80-5.40) m/uL Hgb 10.5 L (11.4-16.0) gm/dL Hct 32.4 L (34.0-46.0) % RDW 17.8 H (11.5-15.5) % Plt Count 138 L (150-450) k/uL ABG pH 7.50 H (7.35-7.45) ABG HCO3 31 H (21-25) mmol/L ABG Total CO2 33 H (19-24) mmol/L ABG O2 Saturation 98.1 H (94-97) % Sodium (137-145) mmol/L Chloride (98-107) mmol/L BUN (7-17) mg/dL Creatinine (0.52-1.04) mg/dL Glucose (74-99) mg/dL POC Glucose (mg/dL) 129 H (70-110) mg/dL Plasma Lactic Acid Jose (0.7-2.0) mmol/L 03/21/23 03/21/23 Range/Units 09:49 09:49 WBC (3.8-10.6) k/uL RBC (3.80-5.40) m/uL Hgb (11.4-16.0) gm/dL Hct (34.0-46.0) % RDW (11.5-15.5) % Plt Count (150-450) k/uL ABG pH (7.35-7.45) ABG HCO3 (21-25) mmol/L ABG Total CO2 (19-24) mmol/L ABG O2 Saturation (94-97) % Sodium 133 L (137-145) mmol/L Chloride 92 L (98-107) mmol/L BUN 94 H (7-17) mg/dL Creatinine 2.14 H (0.52-1.04) mg/dL Glucose 158 H (74-99) mg/dL POC Glucose (mg/dL) (70-110) mg/dL Plasma Lactic Acid Jose 2.7 H* (0.7-2.0) mmol/L
[2023-03-21] MEDS ORDERED: DRY MOUTH SPRAY 44.3 SPRAY/44.3 ML SPRAY MUCOUS MEM PRN (13:14)
[2023-03-21] MEDS ORDERED: ATROPINE OPHTH SOLN 1% 5ML BTL SUBLINGUAL PRN (13:14)
[2023-03-21] MEDS ORDERED: LORazepam 2 MG/ML INJ IV PRN (13:14)
[2023-03-21] MEDS ORDERED: VANCOMYCIN IV PER PHARMACY 1 EACH MISC MISCELLANE PRN (13:14)
[2023-03-21] MEDS ORDERED: LEVOFLOXACIN 750MG-D5W PMX 750 MG in DEXTROSE/WATER 1 150ML.BAG IVPB SCH (13:15)
[2023-03-21] MEDS: BUMETANIDE 0.25 MG/ML 10 ML VIAL IV SCH (13:23)
--- NOTE | 2023-03-21 13:45 | P.PN ---
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 She presented to the emergency department with complaints of generalized weakness, intermittent chest pain, shortness of breath, and a headache. Patient was scheduled for cardiac ablation on 03/05/[address] Stockton. Vital signs showed BP 133/82, HR 118, RR 22, T 98.8F, SpO2 of 99% on room air. EKG showed AFib with RVR at 125 bpm. Chest x-ray showed no acute process. CT head showing no acute process. WBC count 11.4. Coagulation profile showing PT of 13.4, INR 1.3, and D-dimer at 1.97 (chronically elevated). BMP Na 130, K 3.4, Cl 94, bicarb of 21, anion gap 15, BUN of 30, Cr 1.81, with baseline Cr 1.9. Troponin less than 0.012. ProBNP 3970 which is significantly improved from previous BNP of 11,800. COVID PCR, Flu, and RSV were negative. Patient was admitted under our services secondary to intermittent chest pain and atrial fibrillation with consultation to cardiology. Troponins trended, less than 0.012, 0.012, and less than 0.012. Urinalysis was obtained and was abnormal showing positive for protein, ketones, and leukocytosis with 9 RBCs and 18 WBCs. However, patient did have urinary symptoms. Patient became hypotensive on 02/27. Was transferred to medical ICU. Started on norepinephrine. Continue to remain in atrial fibrillation with RVR. Was also started on Lasix drip. Echocardiogram showed slightly reduced LVEF of 40% with global hypokinesis, moderate aortic insufficiency. She had ARCADIO and cardioversion on 03/02, now converted to sinus rhythm. Lasix drip transitioned to IV push 03/03, then later transitioned to oral Bumex. Respiratory function worsen. CXR shows complete opacification of the right lung and pulmonary vascular congestion. Concerns for mucus plugging. Antibiotics escalated to Vancomycin and Cefepime. Off pressors. Patient on and off with BiPAP, transitioned to high flow nasal cannula occasionally, however, oxygen requirements still high. Back on IV lasix. Bronchoscopy showed tracheobronchomalacia, extensive mucus plugging, therapeutic airway suctioning and bronchial lavage done. Continue antibiotic course. Overall respiratory function improving. Now on nasal cannula 3 L. Patient would be okay with following palliative care outpatient. Patient is out of the ICU. She underwent right heart cath pulmonary hypertension likely related to the WHO group 2 and 3. Pt was accepted to [facility] for subacute rehab placement, however she began to have worsening renal function and elevating white blood cell count. Remainder IV Bumex. On 03/21/23, patient started become hypotensive, hypoxic, lethargic. White count went up again to 41.8. Goals of care discussion was done with patient and family. Patient wishes to be comfort care. Subjective: Patient seen and examined at bedside. Patient remains hypotensive and sasha rgic. Denies any chest pain, shortness of breath, abdominal pain. Wishes to be comfort care. Pertinent positives and negatives as discussed above, a complete review of systems was performed and all other systems are negative. Vitals Signs Reviewed. General: Nontoxic, no distress and appears stated age. Target-appearing Derm: Skin warm and dry, normal coloration for ethnicity. Head: Atraumatic, normocephalic and symmetric. Eyes: EOMs intact, no lid lag, and anicteric sclera Mouth: no lip lesions, mucus membranes moist Cardiovascular: regular rate and rhythm with normal S1S2, no murmur, positive posterior tibial pulses bilaterally, and cap refill < 2 seconds. Lungs: Bilateral rhonchi, no accessory muscle use, supplemental oxygen Abdominal: soft, nontender to palpation, no guarding, no appreciable organomegaly Ext: ROM intact. No gross muscle atrophy, no edema, no contractures Neuro: Speech clear, face symmetrical and CN II-XII grossly intact with no noted focal neuro deficits Psych: Lethargic but oriented to person, place, time, and situation. Appropriate and pleasant affect. Data Reviewed Today: Pertinent Labs: WBC 41.8, hemoglobin 10.5, platelet 138, sodium 133, creatinine 2.14, lactate 2.7, magnesium 1.9, troponin 0.026, pH 7.5, pCO2 41 Imaging: Chest x-ray independently interpreted shows interstitial opacities Assessment and Plan: Acute on chronic renal failure Acute on chronic hypoxic respiratory failure Sepsis secondary to bacterial pneumonia Leukocytosis Acute COPD exacerbation History of interstitial pulmonary fibrosis Pulmonary hypertension Cardiogenic shock, resolved Acute on chronic diastolic and systolic CHF, EF 40% Paroxysmal atrial fibrillation with RVR, s/p cardioversion History of CAD with stenting Hypothyroidism Hypokalemia Hypomagnesemia -patient started on comfort care measures -IVP morphine as needed, norco as needed, IV and PO ativan as needed -hospice consult. DVT ppx: N/A Code status: DNR/DNI Patient is expected to pass away this admission. Objective - Vital Signs Vital signs: Vital Signs Temp 97.9 F 03/21/23 11:19 Pulse 63 03/21/23 12:54 Resp 20 03/21/23 12:54 BP 77/55 03/21/23 12:54 Pulse Ox 93 L 03/21/23 12:54 FiO2 35 03/21/23 04:17 Intake & Output 03/20/23 03/21/23 03/21/23 18:59 06:59 18:59 Intake Total 590 240 Output Total 950 Balance 590 -950 240 Weight 74 kg Intake: Oral 590 240 Output: Urine 950 Other: Voiding Method External Catheter External Catheter External Catheter # Bowel Movements 1 - Labs CBC & Chem 7: 03/21/23 09:49 03/21/23 09:49 Labs: Abnormal Lab Results - Last 24 Hours (Table) 03/21/23 03/21/23 03/21/23 Range/Units 05:30 07:57 09:49 WBC 41.8 H (3.8-10.6) k/uL RBC 3.36 L (3.80-5.40) m/uL Hgb 10.5 L (11.4-16.0) gm/dL Hct 32.4 L (34.0-46.0) % RDW 17.8 H (11.5-15.5) % Plt Count 138 L (150-450) k/uL Neutrophils # (Manual) 40.13 H (1.3-7.7) k/uL Lymphocytes # (Manual) 0.42 L (1.0-4.8) k/uL Monocytes # (Manual) 1.25 H (0-1.0) k/uL ABG pH 7.50 H (7.35-7.45) ABG HCO3 31 H (21-25) mmol/L ABG Total CO2 33 H (19-24) mmol/L ABG O2 Saturation 98.1 H (94-97) % Sodium (137-145) mmol/L Chloride (98-107) mmol/L BUN (7-17) mg/dL Creatinine (0.52-1.04) mg/dL Glucose (74-99) mg/dL POC Glucose (mg/dL) 129 H (70-110) mg/dL Plasma Lactic Acid Jose (0.7-2.0) mmol/L 03/21/23 03/21/23 Range/Units 09:49 09:49 WBC (3.8-10.6) k/uL RBC (3.80-5.40) m/uL Hgb (11.4-16.0) gm/dL Hct (34.0-46.0) % RDW (11.5-15.5) % Plt Count (150-450) k/uL Neutrophils # (Manual) (1.3-7.7) k/uL Lymphocytes # (Manual) (1.0-4.8) k/uL Monocytes # (Manual) (0-1.0) k/uL ABG pH (7.35-7.45) ABG HCO3 (21-25) mmol/L ABG Total CO2 (19-24) mmol/L ABG O2 Saturation (94-97) % Sodium 133 L (137-145) mmol/L Chloride 92 L (98-107) mmol/L BUN 94 H (7-17) mg/dL Creatinine 2.14 H (0.52-1.04) mg/dL Glucose 158 H (74-99) mg/dL POC Glucose (mg/dL) (70-110) mg/dL Plasma Lactic Acid Jose 2.7 H* (0.7-2.0) mmol/L
--- NOTE | 2023-03-21 13:48 | P.PN ---
Progress Note - Text Progress Note Date: 03/21/23 Advanced Care Planning: Diagnoses: Acute on chronic renal failure Acute on chronic hypoxic respiratory failure Sepsis secondary to bacterial pneumonia Acute COPD exacerbation History of interstitial pulmonary fibrosis Pulmonary hypertension Acute on chronic diastolic and systolic CHF, EF 40% Paroxysmal atrial fibrillation with RVR, s/p cardioversion Discussion: Person(s) present and participating in discussion: Patient, , daughter, granddaughter, nurses, CLERK ENTRY LEVEL Summary:Explained that she has very poor prognosis despite ongoing treatments. Patient would like to be comfortable.Does not want escalation of care. Hospice consulted. Comfort care orders placed. A total of 33 minutes of face to face time was spent discussing advanced care planning.
[2023-03-21] MEDS ORDERED: VANCOMYCIN 1,500 MG in SODIUM CHLORIDE 0.9% 500 ML 500 ML IVPB ONE (14:00)
[2023-03-21] MEDS: HYDROcodone/APAP 5-325MG 1 EACH TAB PO PRN (15:19)
[2023-03-21] MEDS: MORPHINE SULFATE 2 MG/ML SYRINGE IV PRN ×3 (16:19→22:11)
[2023-03-21] MEDS: MORPHINE SULFATE 4 MG/ML SYRINGE IV PRN (18:50)
[2023-03-22] MEDS ORDERED: VANCOMYCIN 1,500 MG in SODIUM CHLORIDE 0.9% 500 ML 500 ML IVPB ONE (06:00)
[2023-03-22] MEDS: MORPHINE SULFATE 2 MG/ML SYRINGE IV PRN (06:05)
[2023-03-22] MEDS ORDERED: SCOPOLAMINE 1 MG/72 HR PATCH TRANSDERM SCH (08:00)
[2023-03-22] MEDS: MORPHINE SULFATE 4 MG/ML SYRINGE IV PRN ×9 (08:04→18:56)
[2023-03-22] MEDS: HYDROcodone/APAP 5-325MG 1 EACH TAB PO PRN (08:06)
[2023-03-22] MEDS: SYMBICORT 160-4.5 MCG INHALER INHALATION SCH ×2 (08:34→20:42)
[2023-03-22] MEDS: ALPRAZolam 0.5 MG TAB PO PRN (09:36)
[2023-03-22] MEDS: DOCUSATE 100 MG CAP PO SCH (09:51)
[2023-03-22] MEDS: PANTOPRAZOLE 40 MG/10 ML VIAL IVP SCH (09:51)
[2023-03-22] MEDS: GABAPENTIN 100 MG CAP PO SCH ×2 (09:51→16:01)
[2023-03-22] MEDS ORDERED: BUMETANIDE 0.25 MG/ML 10 ML VIAL IV ONE (10:02)
--- NOTE | 2023-03-22 10:49 | P.PN ---
Subjective Progress Note Date: 03/22/23 HISTORY OF PRESENT ILLNESS: The patient is 67-year-old female with known history of CAD, paroxysmal atrial fibrillation status post cardioversion, severe COPD who presented with worsening dyspnea. She continues to be on high flow oxygen, in sinus mechanism, feels better. She denies any chest discomfort, dizziness or palpitations. She had evidence of moderate cardiomyopathy. Hemodynamically she is stable, her urinary output has been good. There is no evidence of ventricular tachycardia. March 09: The patient feels better overall, she continues to be in sinus mechanism. Hemodynamically she is stable. She denies any chest discomfort or dizziness. She denies any nausea or vomiting. She has a prior history of COPD and her chest x-ray continues to show bilateral infiltrate. She had a known history of moderate cardiomyopathy. March 10: The patient became hypoxic during the night requiring BiPAP. She is in sinus mechanism with episodes of sinus bradycardia. There is occasional single PVCs but no evidence of atrial fibrillation. She is coughing but no significant sputum. She denies any chest discomfort, dizziness or palpitations. Her urinary output has been stable. She denies any nausea or vomiting. Her chest x-ray shows persistent infiltrate. March 11: The patient feels well this morning, she continues to have mild dyspnea but stable. She denies any chest discomfort, dizziness or palpitations. She continues to be in sinus mechanism with stable blood pressure. Her urinary output is good. She has no nausea or vomiting. March 12: The patient is feeling relatively well this morning she continues to be dyspneic and fatigued. She had bronchoscopy yesterday and removal of mucous plugging and secretions. She continues to be in sinus mechanism with sinus bradycardia. There is no evidence of recurrent atrial fibrillation. Her blood pressure has been stable. She is on no vasopressors. Her urinary output has been stable. Her chest x-ray continues to show bilateral infiltrate. She continues to be on IV Lasix. March 13: She is feeling well this morning, she denies any chest discomfort or dizziness. She is coughing but feels better overall. She denies any nausea or vomiting. She continues to be in sinus mechanism with stable blood pressure. She continues to have some wheezing. She is on oral diuretics. March 14: The patient is feeling better, her breathing is better. She denies any chest discomfort, dizziness or palpitations. She continues to be in sinus mechanism. She appears to be stronger. She has no nausea or vomiting. 03/15/2023 Patient examined this morning at the bedside. Patient denies chest pain or pressure. She continues to report shortness of breath but states it is slightly better compared to yesterday. She remains on supplemental oxygen maintaining oxygen saturation greater than 92%.. She was given a one-time dose of IV Lasix today per pulmonary. Creatinine today 2.45. Blood pressure is stable. Telemetry reveals sinus mechanism. 03/16/2023 Patient examined this morning at the bedside. Family present. She denies chest pain or pressure. She reports SOB that is unchanged. She remains on oral diuretics. Vital signs are stable. 03/18/2023 Patient examined this morning at the bedside. She is status post right-sided heart catheterization revealing elevated biventricular filling pressures and pulmonary hypertension. Patient is sitting up in the chair at the time of examination. She states her breathing feels slightly improved compared to yesterday. She has been started on IV Bumex 2 mg every 12 hours. Creatinine today 2.22. 03/19/2023 Patient examined this morning at the bedside. Patient currently denies chest pain or pressure. She reports mild shortness of breath. She remains on IV Bumex 2 mg every 12 hours. Creatinine 2.31 today. Urine output over the last 24 hours is 1500 mL. Vital signs are stable. 03/20/2023 She reports feeling so-so, still has shortness of breath. She is on 5 L nasal cannula O2. Chest x-ray today does show improvement from 1 week ago. Creatinine 2.07. 03/21 Patient states that she feels about the same from yesterday. No real improvement of her breathing. She continues to have a cough. No fever or chills. She has been maintained on IV Bumex 2 mg every 12 hours. Weight is down 6 kg over the past few days and she is in a negative fluid balance. Blood pressure is on the soft side was systolic 86-97, pulse ox 96% on 5 L nasal cannula, afebrile, heart rate in the 60s. Repeat blood work reveals WBC 41, hemoglobin 10.5. Sodium 133, potassium 4.5, BUN 94 and creatinine 2.14. Lactic acid 2.7. Troponin 0.0-6. 03/22 Overnight, patient has been made comfort care with plan for hospice evaluation today. Patient has not been started on eliquis and this will remain off at this time due to the lamp for hospice care.blood pressure 109/72 and heart rate in the 60s.telemetry is a sinus rhythm. PHYSICAL EXAM: VITAL SIGNS: Reviewed. GENERAL: Well-developed in no acute distress. NECK: Supple. No JVD LUNGS: Respirations even and unlabored. Lungs with bilateral rhonchi noted. On 5 L nasal cannula O2. HEART: Regular rate and rhythm. S1 and S2 heard. Systolic murmur noted EXTREMITIES: No clubbing or cyanosis. Peripheral pulses intact. Trace bilateral lower extremity edema ASSESSMENT: Acute hypoxic respiratory failure secondary to combination of CHF, possible pneumonia, and exacerbation of COPD Status post bronchoscopy History of coronary artery disease with previous stenting Paroxysmal atrial fibrillation, currently maintaining sinus mechanism Status post cardioversion with sinus bradycardia Chronic kidney disease Ischemic cardiomyopathy, ejection fraction 40% Valvular heart disease including moderate AI, mild , and mild TR Status post right heart cath revealing elevated biventricular filling pressures and pulmonary hypertension PLAN: Cardiology will sign off this case and follow on an as-needed basis. Please reconsult for any new concerns. Patient is comfort care. No plan for anticoagulation at this point. Nurse practitioner note has been reviewed by physician. Signing provider agrees with the documented findings, assessment, and plan of care. Objective - Vital Signs Vital signs: Vital Signs Temp 97.9 F 03/21/23 11:19 Pulse 61 03/21/23 20:07 Resp 18 03/21/23 20:07 BP 109/72 03/21/23 20:07 Pulse Ox 94 L 03/21/23 20:07 FiO2 35 03/21/23 04:17 Intake & Output 03/21/23 03/22/23 03/22/23 18:59 06:59 18:59 Intake Total 240 Output Total 325 Balance -85 Intake: Oral 240 Output: Urine 325 Other: Voiding Method External Catheter External Catheter # Voids 1 2 # Bowel Movements 1 - Labs CBC & Chem 7: 03/21/23 09:49 03/21/23 09:49 Labs: Abnormal Lab Results - Last 24 Hours (Table) 03/21/23 Range/Units 09:49 Neutrophils # (Manual) 40.13 H (1.3-7.7) k/uL Lymphocytes # (Manual) 0.42 L (1.0-4.8) k/uL Monocytes # (Manual) 1.25 H (0-1.0) k/uL
--- NOTE | 2023-03-22 10:51 | P.PN ---
Subjective Patient is seen for follow-up for chronic kidney disease and acute kidney injury. Renal function has been stable. Maintained on Bumex IV. Patient remains short of breath. Overall prognosis was discussed with the patient and family and she has decided to proceed with hospice care. Objective - Vital Signs Vital signs: Vital Signs Temp 97.9 F 03/21/23 11:19 Pulse 61 03/21/23 20:07 Resp 18 03/21/23 20:07 BP 109/72 03/21/23 20:07 Pulse Ox 94 L 03/21/23 20:07 FiO2 35 03/21/23 04:17 Intake & Output 03/21/23 03/22/23 03/22/23 18:59 06:59 18:59 Intake Total 240 Output Total 325 Balance -85 Intake: Oral 240 Output: Urine 325 Other: Voiding Method External Catheter External Catheter # Voids 1 2 # Bowel Movements 1 - Exam Patient is comfortable, No acute distress Short of breath Examination lower extremity shows no significant edema COATING MACHINE HELPER exam grossly intact - Labs CBC & Chem 7: 03/21/23 09:49 03/21/23 09:49 Labs: Abnormal Lab Results - Last 24 Hours (Table) 03/21/23 Range/Units 09:49 Neutrophils # (Manual) 40.13 H (1.3-7.7) k/uL Lymphocytes # (Manual) 0.42 L (1.0-4.8) k/uL Monocytes # (Manual) 1.25 H (0-1.0) k/uL Assessment and Plan Assessment: 1. Chronic kidney disease stage IV with baseline creatinine 1.5 - 2 secondary to cardiorenal syndrome and nephrosclerosis. Fluctuation in renal function bas ed on volume status and diuresis. Atrophic kidneys noted on renal ultrasound done January 2023. 2. A. fib with RVR maintained on amiodarone and Lopressor. Status post cardioversion and ARCADIO. 3. Hypotension status post levo fed. Currently maintained on midodrine. 4. Hypervolemic hyponatremia. Stable. 5. Hypokalemia from diuresis. Replaced. Better. 6. Acute on chronic systolic CHF with ejection fraction of 40% with moderate aortic insufficiency. 7. History of coronary artery disease with cardiac stenting. 8. Volume overload. Improving with diuresis. 9. Hypomagnesemia from diuresis. Replaced. Better. 10. Right lung opacification secondary to mucous plug. Pulmonology following. Status post bronchoscopy with significant bronchoalveolar lavage for thick mucus Plan: IV Bumex 1 to help with respiratory distress. We will sign off.
[2023-03-22] MEDS ORDERED: GLYCOPYRROLATE 0.2 MG/ML 2 ML VIAL IVP PRN (11:23)
[2023-03-22 12:42] VITALS: BP 77/54; PULSE 71; RESP 16; TEMP 98
--- NOTE | 2023-03-22 14:37 | P.PN ---
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 She presented to the emergency department with complaints of generalized weakness, intermittent chest pain, shortness of breath, and a headache. Patient was scheduled for cardiac ablation on 03/05/[address] Stockton. Vital signs showed BP 133/82, HR 118, RR 22, T 98.8F, SpO2 of 99% on room air. EKG showed AFib with RVR at 125 bpm. Chest x-ray showed no acute process. CT head showing no acute process. WBC count 11.4. Coagulation profile showing PT of 13.4, INR 1.3, and D-dimer at 1.97 (chronically elevated). BMP Na 130, K 3.4, Cl 94, bicarb of 21, anion gap 15, BUN of 30, Cr 1.81, with baseline Cr 1.9. Troponin less than 0.012. ProBNP 3970 which is significantly improved from previous BNP of 11,800. COVID PCR, Flu, and RSV were negative. Patient was admitted under our services secondary to intermittent chest pain and atrial fibrillation with consultation to cardiology. Troponins trended, less than 0.012, 0.012, and less than 0.012. Urinalysis was obtained and was abnormal showing positive for protein, ketones, and leukocytosis with 9 RBCs and 18 WBCs. However, patient did have urinary symptoms. Patient became hypotensive on 02/27. Was transferred to medical ICU. Started on norepinephrine. Continue to remain in atrial fibrillation with RVR. Was also started on Lasix drip. Echocardiogram showed slightly reduced LVEF of 40% with global hypokinesis, moderate aortic insufficiency. She had ARCADIO and cardioversion on 03/02, now converted to sinus rhythm. Lasix drip transitioned to IV push 03/03, then later transitioned to oral Bumex. Respiratory function worsen. CXR shows complete opacification of the right lung and pulmonary vascular congestion. Concerns for mucus plugging. Antibiotics escalated to Vancomycin and Cefepime. Will require vasopressors, currently blood pressure stable. Patient on and off with BiPAP, transitioned to high flow nasal cannula occasionally, however, oxygen requirements still high. She was placed back IV diuretics and IV antibiotics. Bronchoscopy showed tracheobronchomalacia, extensive mucus plugging, therapeutic airway suctioning and bronchial lavage done. She was transitioned to oral diuretics, and IV steroids. Initially, respiratory function improving and patient was transferred out of out of the ICU after extended stay and prolonged IV antibiotic course. Initial plan was for patient to be discharged to [facility] for subacute rehab placement. However, patient again noted to quickly declined and was found to have worsening renal function, CHF and sudden and rapidly elevating white blood cell count up to 41.8. Secondary to acute on chronic respiratory failure with hypoxia, severe hypotension, severe leukocytosis, worsening renal function, and elevating lactate on patient, an A-Team was called on 03/21/23 due to concerns that pt again would need transfer to ICU. Patient's family including her , daughter, and granddaughter were at bedside and the primary physician had long talk with patient and her family regarding goals of care and treatment. Patient stating at that time that she wanted to stop all testing and treatment and be placed on comfort care only. On 03/21/23 patient was made DO NOT RESUSCITATE/DO NOT INTUBATE with comfort measures place. Consult was placed to hospice. Initial plan was for transfer to hospice house. However, patient had a rapid decline. She was transitioned to comfort measures and had a morphine gtt started. She passed peacefully with family present at bedside on 03/23/23 at 1930. Physical exam: Vital signs reviewed and stable. General: Nontoxic, no distress and appears stated age. Derm: Skin warm and dry, normal coloration for ethnicity. Head: Atraumatic, normocephalic and symmetric. Eyes: EOMs intact, no lid lag, and anicteric sclera Mouth: no lip lesions, mucus membranes moist Cardiovascular: regular rate and rhythm with normal S1S2, no murmur, positive posterior tibial pulses bilaterally, and cap refill < 2 seconds. Lungs: Bilateral rhonchi, no accessory muscle use, supplemental oxygen Abdominal: soft, nontender to palpation, no guarding, no appreciable organomegaly Ext: ROM intact. No gross muscle atrophy, no edema, no contractures Neuro: Speech clear, face symmetrical and CN II-XII grossly intact with no noted focal neuro deficits Psych: Alert and oriented to person, place, time, and situation. Appropriate and pleasant affect. Assessment and Plan of Care: Acute on chronic hypoxic respiratory failure, improved back near baseline respiratory status. Leukocytosis, worsening Acute on chronic renal failure, slightly worsening Sepsis secondary to bacterial pneumonia Acute COPD exacerbation History of interstitial pulmonary fibrosis Cardiogenic shock, resolved Acute on chronic diastolic and systolic CHF, EF 40% Paroxysmal atrial fibrillation with RVR, s/p cardioversion, now maintaining sinus mechanism History of CAD with stenting Hypothyroidism Hypokalemia, resolved Hypomagnesemia, resolved CODE STATUS: DO NOT RESUSCITATE/DO NOT INTUBATE. Comfort Care only Anticipated discharge place: [facility]. Patient was seen independently by Nurse Pracitioner. This document was prepared using [employer] dictation software. Please allow for errors in airfield defence guard, while rare they do occur. Objective - Vital Signs Vital signs: Vital Signs Temp 97.9 F 03/21/23 11:19 Pulse 61 03/21/23 20:07 Resp 18 03/21/23 20:07 BP 109/72 03/21/23 20:07 Pulse Ox 94 L 03/21/23 20:07 FiO2 35 03/21/23 04:17 Intake & Output 03/21/23 03/22/23 03/22/23 18:59 06:59 18:59 Intake Total 240 Output Total 325 Balance -85 Intake: Oral 240 Output: Urine 325 Other: Voiding Method External Catheter External Catheter # Voids 1 2 # Bowel Movements 1 - Labs CBC & Chem 7: 03/21/23 09:49 03/21/23 09:49 Labs: Abnormal Lab Results - Last 24 Hours (Table) 03/21/23 03/21/23 03/21/23 Range/Units 09:49 09:49 09:49 WBC 41.8 H (3.8-10.6) k/uL RBC 3.36 L (3.80-5.40) m/uL Hgb 10.5 L (11.4-16.0) gm/dL Hct 32.4 L (34.0-46.0) % RDW 17.8 H (11.5-15.5) % Plt Count 138 L (150-450) k/uL Neutrophils # (Manual) 40.13 H (1.3-7.7) k/uL Lymphocytes # (Manual) 0.42 L (1.0-4.8) k/uL Monocytes # (Manual) 1.25 H (0-1.0) k/uL Sodium 133 L (137-145) mmol/L Chloride 92 L (98-107) mmol/L BUN 94 H (7-17) mg/dL Creatinine 2.14 H (0.52-1.04) mg/dL Glucose 158 H (74-99) mg/dL Plasma Lactic Acid Jose 2.7 H* (0.7-2.0) mmol/L
[2023-03-22] MEDS ORDERED: LORazepam 2 MG/ML INJ IV STA (17:33)
[2023-03-22] MEDS ORDERED: MORPHINE SULFATE (100 MG/2 ML) 100 MG in SODIUM CHLORIDE 0.9% 100 ML IV SCH (18:00)
--- NOTE | 2023-03-23 07:53 | P.DS ---
Providers Date of admission: 02/25/23 17:16 Expected date of discharge: 03/23/23 Attending physician: Kristin Mcmanus, DO Consults: 02/25/23 17:16 Consult Physician Urgent Consulting Provider: Pola Stockton Consult Reason/Comments: Atrial fibrillation with RVR Do you want consulting provider notified?: Yes 02/27/23 14:17 Consult Physician Routine Consulting Provider: Santiago Briseno Consult Reason/Comments: Hypotension/sepsis Do you want consulting provider notified?: Yes 03/01/23 13:57 Consult Physician Routine Consulting Provider: Zelda Schmitt Consult Reason/Comments: decreased urine output Do you want consulting provider notified?: Yes 03/19/23 14:19 Consult Physician Routine Consulting Provider: Edgar Herrera Consult Reason/Comments: mrsa and stenotrophomonas in the BAL Do you want consulting provider notified?: Yes Primary care physician: [facility] Course: Discharge Diagnosis: Acute on chronic hypoxic respiratory failure, improved back near baseline respiratory status. Leukocytosis, worsening Acute on chronic renal failure, slightly worsening Sepsis secondary to bacterial pneumonia Acute COPD exacerbation History of interstitial pulmonary fibrosis Cardiogenic shock, resolved Acute on chronic diastolic and systolic CHF, EF 40% Paroxysmal atrial fibrillation with RVR, s/p cardioversion, now maintaining sinus mechanism History of CAD with stenting Hypothyroidism Hypokalemia, resolved Hypomagnesemia, resolved Hospital Course: Patient is a very pleasant 67-year-old female with a past medical history of chronic hypoxic respiratory failure secondary to COPD on home oxygen at 2 L at all times, CAD with stent, paroxysmal AFib on anticoagulation with Eliquis, HFpEF, hypertension, hyperlipidemia, CKD stage IV, hypothyroidism, and 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 She presented to the emergency department with complaints of generalized weakness, intermittent chest pain, shortness of breath, and a headache. Patient was scheduled for cardiac ablation on 03/05/[address] Stockton. Vital signs showed BP 133/82, HR 118, RR 22, T 98.8F, SpO2 of 99% on room air. EKG showed AFib with RVR at 125 bpm. Chest x-ray showed no acute process. CT head showing no acute process. WBC count 11.4. Coagulation profile showing PT of 13.4, INR 1.3, and D-dimer at 1.97 (chronically elevated). BMP Na 130, K 3.4, Cl 94, bicarb of 21, anion gap 15, BUN of 30, Cr 1.81, with baseline Cr 1.9. Troponin less than 0.012. ProBNP 3970 which is significantly improved from previous BNP of 11,800. COVID PCR, Flu, and RSV were negative. Patient was admitted under our services secondary to intermittent chest pain and atrial fibrillation with consultation to cardiology. Troponins trended, less than 0.012, 0.012, and less than 0.012. Urinalysis was obtained and was abnormal showing positive for protein, ketones, and leukocytosis with 9 RBCs and 18 WBCs. However, patient did have urinary symptoms. Patient became hypotensive on 02/27. Was transferred to medical ICU. Started on norepinephrine. Continue to remain in atrial fibrillation with RVR. Was also started on Lasix drip. Echocardiogram showed slightly reduced LVEF of 40% with global hypokinesis, moderate aortic insufficiency. She had ARCADIO and car dioversion on 03/02, now converted to sinus rhythm. Lasix drip transitioned to IV push 03/03, then later transitioned to oral Bumex. Respiratory function worsen. CXR shows complete opacification of the right lung and pulmonary vascular congestion. Concerns for mucus plugging. Antibiotics escalated to Vancomycin and Cefepime. Will require vasopressors, currently blood pressure stable. Patient on and off with BiPAP, transitioned to high flow nasal cannula occasionally, however, oxygen requirements still high. She was placed back IV diuretics and IV antibiotics. Bronchoscopy showed tracheobronchomalacia, extensive mucus plugging, therapeutic airway suctioning and bronchial lavage done. She was transitioned to oral diuretics, and IV steroids. Initially, respiratory function improving and patient was transferred out of out of the ICU after extended stay and prolonged IV antibiotic course. Initial plan was for patient to be discharged to [facility] for subacute rehab placement. However, patient again noted to quickly declined and was found to have worsening renal function, CHF and sudden and rapidly elevating white blood cell count up to 41.8. Secondary to acute on chronic respiratory failure with hypoxia, severe hypotension, severe leukocytosis, worsening renal function, and elevating lactate on patient, an A-Team was called on 03/21/23 due to concerns that pt again would need transfer to ICU. Patient's family including her , daughter, and granddaughter were at bedside and the primary physician had long talk with patient and her family regarding goals of care and treatment. Patient stating at that time that she wanted to stop all testing and treatment and be placed on comfort care only. On 03/21/23 patient was made DO NOT RESUSCITATE/DO NOT INTUBATE with comfort measures place. Consult was placed to hospice. Initial plan was for transfer to hospice house. However, patient had a rapid decline. She was transitioned to comfort measures and had a morphine gtt started. She passed peacefully with family present at bedside on 03/23/23 at 1930. Progress note by Calixto Diaz NP transitioned to formal discharge summary. A total of 32 minutes of time were spent preparing this complex discharge summary. Patient was discharged on 03/22/23. This dictation was prepared using [employer] voice recognition software. Though every attempt is made to correct errors during dictation some may still exist. Patient Condition at Discharge: Stable Plan - Discharge Summary New Discharge Prescriptions: No Action Sertraline HCl [Zoloft] 100 mg PO HS Atorvastatin [Lipitor] 20 mg PO HS Levothyroxine Sodium [Synthroid] 75 mcg PO DAILY Albuterol Inhaler [Ventolin Hfa Inhaler] 2 puff INHALATION RT-QID PRN PRN Reason: Shortness Of Breath Cholecalciferol [Vitamin D3 (25 Mcg = 1000 Iu)] 50 mcg PO DAILY Budesonide-Formot 160-4.5 Mcg [Symbicort 160-4.5 Mcg Inhaler] 2 puff INHALATION RT-BID #1 each Furosemide [Lasix] 40 mg PO DAILY@0900 Ascorbic Acid [Vitamin C] 1,000 mg PO DAILY allopurinoL [Zyloprim] 100 mg PO BID Cyclobenzaprine [Flexeril] 10 mg PO TID PRN PRN Reason: Muscle Spasm Ipratropium-Albuterol Nebulize [Duoneb 0.5 mg-3 mg/3 ml Soln] 3 ml INHALATION RT-TID Midodrine [ProAmatine] 10 mg PO AC-TID #90 tab Acetaminophen Tab [Tylenol] 650 mg PO Q6HR PRN tab PRN Reason: Mild Pain Or Fever > 100.5 Metoprolol Tartrate [Lopressor] 25 mg PO BID 30 Days #60 tab Furosemide [Lasix] 20 mg PO DAILY@1400 Montelukast [Singulair] 10 mg PO DAILY Omeprazole 20 mg PO DAILY Amiodarone [Cordarone] 100 mg PO DAILY Apixaban [Eliquis] 2.5 mg PO BID calcitrioL [Rocaltrol] 0.25 mcg PO TH traZODone HCL [Desyrel] 200 mg PO HS PRN PRN Reason: sleep Nitroglycerin Sl Tabs [Nitrostat] 0.4 mg SL Q5M PRN PRN Reason: Chest Pain Dapagliflozin Propanediol [Farxiga] 5 mg PO DAILY #30 tab Gabapentin [Neurontin] 100 mg PO TID #90 cap Calcium Carbonate [Tums] 500 mg PO QID PRN tab PRN Reason: Heartburn Discharge Medication List Sertraline HCl [Zoloft] 100 mg PO HS 12/22/18 [History] Atorvastatin [Lipitor] 20 mg PO HS 03/09/19 [History] Levothyroxine Sodium [Synthroid] 75 mcg PO DAILY 06/17/19 [History] Albuterol Inhaler [Ventolin Hfa Inhaler] 2 puff INHALATION RT-QID PRN 10/09/20 [History] Montelukast [Singulair] 10 mg PO DAILY 10/09/20 [History] Omeprazole 20 mg PO DAILY 10/09/20 [History] Amiodarone [Cordarone] 100 mg PO DAILY 01/17/22 [History] Cholecalciferol [Vitamin D3 (25 Mcg = 1000 Iu)] 50 mcg PO DAILY 01/17/22 [History] Budesonide-Formot 160-4.5 Mcg [Symbicort 160-4.5 Mcg Inhaler] 2 puff INHALATION RT-BID #1 each 01/31/22 [Rx] Apixaban [Eliquis] 2.5 mg PO BID 04/29/22 [History] Furosemide [Lasix] 40 mg PO DAILY@0900 07/09/22 [History] Ascorbic Acid [Vitamin C] 1,000 mg PO DAILY 07/28/22 [History] Cyclobenzaprine [Flexeril] 10 mg PO TID PRN 10/28/22 [History] allopurinoL [Zyloprim] 100 mg PO BID 10/28/22 [History] Ipratropium-Albuterol Nebulize [Duoneb 0.5 mg-3 mg/3 ml Soln] 3 ml INHALATION RT-TID 01/30/23 [History] Nitroglycerin Sl Tabs [Nitrostat] 0.4 mg SL Q5M PRN 01/30/23 [History] calcitrioL [Rocaltrol] 0.25 mcg PO TH 01/30/23 [History] traZODone HCL [Desyrel] 200 mg PO HS PRN 01/30/23 [History] Acetaminophen Tab [Tylenol] 650 mg PO Q6HR PRN tab 02/06/23 [Rx] Calcium Carbonate [Tums] 500 mg PO QID PRN tab 02/06/23 [Rx] Dapagliflozin Propanediol [Farxiga] 5 mg PO DAILY #30 tab 02/06/23 [Rx] Gabapentin [Neurontin] 100 mg PO TID #90 cap 02/06/23 [Rx] Midodrine [ProAmatine] 10 mg PO AC-TID #90 tab 02/06/23 [Rx] Metoprolol Tartrate [Lopressor] 25 mg PO BID 30 Days #60 tab 02/10/23 [Rx] Furosemide [Lasix] 20 mg PO DAILY@1400 02/11/23 [History] Patient Instructions/Handouts: Hospice (DC) Discharge Disposition: DISCH TO HOSPICE MED FACILTY
--- NOTE | 2023-03-23 21:14 | CDI ---
Documentation Clarification Form Date: 03/23/2023 09:02:55 PM From: Mindy Hull Phone: Admit Date: 02/25/2023 05:16:00 PM Patient Name: Madina Nick Visit Number: [id number] Discharge Date: 03/22/2023 11:59:00 PM ATTENTION: The Clinical Documentation Specialists (CDI) and [facility] Coding Staff appreciate your assistance in clarifying documentation. Please respond to the clarification below the line at the bottom and electronically sign. The CDI & [facility] Coding staff will review the response and follow-up if needed. Please note: Queries are made part of the Legal Health Record. If you have any questions, please contact the author of this message via ITS. Dr. Kristin Mcmanus Your patient has the documented differing diagnosis of acute on chronic CHF. Additional information regarding the type of CHF is requested. Acute on chronic systolic CHFwith ejection fraction of 40% Consult 03/02 Acute on chronic diastolic congestive heart failure Consult Note 02/27 History/Risk Factors: 67yo F, ACHRF, BEHZAD on CKD, sepsisd/tbacterial PNA, AECOPD, interstitialpulmonary fibrosis, cardiogenic shock,CHF, PAF, CAD, hypothyroidism, hypomagnesemia Clinical Indicators: VS/Pulse OX: 94-99 BNP: 70825 Echocardiogram Results: Moderately increased LV wall thickness. LV EF 40% with global hypokinesis. ModerateAC. Moderate AI/, MildTR. Chest x ray: There isno change inthe moderatecardiomegalyand diffuse interstitialinfiltrates. There isnopneumothoraxor largepleural effusion. The osseous structures are intact. Treatment: Volume overload. Improving with diuresis. In your professional opinion, can you please clarify the type of CHF if known? [ ] Acute on Chronic Systolic Heart Failure (reduced EF) [ ] Acute on Chronic Diastolic Heart Failure (preserved EF) [ x ] Acute on Chronic Heart Failure Systolic & Diastolic Heart Failure--- as is already noted in D/C summary [ ] Other, please specify [ ] Unable to determine (Template Last Revised: May 2020) MTDD
--- NOTE | 2023-03-26 14:49 | CDI ---
Documentation Clarification Form Date: 03/26/2023 02:37:44 PM From: Diane Valdez RN, CCDS Email: [email or web address] Admit Date: 02/25/2023 05:16:00 PM Patient Name: Madina Nick Visit Number: [id number] Discharge Date: 03/22/2023 07:30:00 PM ATTENTION: The Clinical Documentation Specialists (CDI) and [facility] Coding Staff appreciate your assistance in clarifying documentation. Please respond to the clarification below the line at the bottom and electronically sign. The CDI & [facility] Coding staff will review the response and follow-up if needed. Please note: Queries are made part of the Legal Health Record. If you have any questions, please contact the author of this message via ITS. Dr. Rosie Sotomayor Flexible bronchoscopy and broncho alveolar lavage with therapeutic suctioning is documented in the 03/11 Operative Report. Additional clarification regarding the procedure is requested. History/Risk factors: chronic hypoxic respiratory failure secondary to COPD on home oxygen at 2 L at all times, CAD with stent, paroxysmal atrial fibrillation on anticoagulation with Eliquis, HFpEF, hypertension, hyperlipidemia, chronic kidney disease stage IV, hypothyroidism, and history of a closed head injury. Admitted with sepsis and acute on chronic respiratory failure. 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 Based on failure to progress, I think we have no other option other than considering a bronchoscopy and performing a therapeutic airway suctioning. The plan is to do a bedside bronchoscopy for therapeutic airway suctioning and removal of mucous plugs." 03/11 Bronchoscopy and BAL: "Tracheobronchomalacia. Extensive mucus plugging. Trachea was quite inflamed and there was copious amounts of secretions occupying the membranous wall of the trachea that were suctioned out. The patient had bronchomalacia with dynamic obstruction with exhalation and coughing. Similar amount of secretions were found in the lower lobes bilaterally and upper lobes bilaterally. At this point, therapeutic airway suctioning was done. A total of 25 mL of purulent material that was brown looking was aspirated. Treatment: Bronchoscopy with BAL Please clarify the following regarding the procedure: [ x] Removal of secretions and mucus plugs [ ] Removal of secretions only [ ] Other [ ] Unable to determine MTDD
--- NOTE | 2023-03-29 15:48 | P.PN ---
Subjective Progress Note Date: 03/21/23 Principal diagnosis: Reason for follow-up is positive BAL culture with stenotrophomonas and MRSA Patient is a 67-year-old female with a past medical history significant for coronary disease asthma atrial fibrillation hyperlipidemia hypertension patient is in the hospital for more than 3 weeks now, presenting to the hospital for evaluation of increasing shortness of breath patient did have bronchoscopy on 03/11/2023 culture subsequently grew MRSA and stenotrophomonas prompted this infectious disease consultation. On today's evaluation that is 03/21/2023 patient did have acute change in her clinical condition with the patient become hypotensive on the also noticed to have worsening of her white count concerning for possible sepsis the patient is currently on 4 L nasal cannula oxygen has been complaining of some shortness of breath but no worsening cough has been reported no vomiting or diarrhea reported by the nursing staff. Patient white count is up to 41.8 with a left shift, creatinine is 2.14 Past medical surgical history reviewed Medication reviewed Objective - Vital Signs Vital signs: Vital Signs Temp 97.9 F 03/21/23 11:19 Pulse 63 03/21/23 12:54 Resp 20 03/21/23 12:54 BP 77/55 03/21/23 12:54 Pulse Ox 93 L 03/21/23 12:54 FiO2 35 03/21/23 04:17 Intake & Output 03/20/23 03/21/23 03/21/23 18:59 06:59 18:59 Intake Total 590 240 Output Total 950 Balance 590 -950 240 Weight 74 kg Intake: Oral 590 240 Output: Urine 950 Other: Voiding Method External Catheter External Catheter External Catheter # Bowel Movements 1 - Exam GENERAL DESCRIPTION: Elderly female lying in bed in no distress RESPIRATORY SYSTEM: Unlabored breathing , coarse breath sounds bilaterally HEART: S1 S2 regular rate and rhythm ABDOMEN: Soft , no tenderness EXTREMITIES: No edema feet - Labs CBC & Chem 7: 03/21/23 09:49 03/21/23 09:49 Labs: Abnormal Lab Results - Last 24 Hours (Table) 03/21/23 03/21/23 03/21/23 Range/Units 05:30 07:57 09:49 WBC 41.8 H (3.8-10.6) k/uL RBC 3.36 L (3.80-5.40) m/uL Hgb 10.5 L (11.4-16.0) gm/dL Hct 32.4 L (34.0-46.0) % RDW 17.8 H (11.5-15.5) % Plt Count 138 L (150-450) k/uL Neutrophils # (Manual) 40.13 H (1.3-7.7) k/uL Lymphocytes # (Manual) 0.42 L (1.0-4.8) k/uL Monocytes # (Manual) 1.25 H (0-1.0) k/uL ABG pH 7.50 H (7.35-7.45) ABG HCO3 31 H (21-25) mmol/L ABG Total CO2 33 H (19-24) mmol/L ABG O2 Saturation 98.1 H (94-97) % Sodium (137-145) mmol/L Chloride (98-107) mmol/L BUN (7-17) mg/dL Creatinine (0.52-1.04) mg/dL Glucose (74-99) mg/dL POC Glucose (mg/dL) 129 H (70-110) mg/dL Plasma Lactic Acid Jose (0.7-2.0) mmol/L 03/21/23 03/21/23 Range/Units 09:49 09:49 WBC (3.8-10.6) k/uL RBC (3.80-5.40) m/uL Hgb (11.4-16.0) gm/dL Hct (34.0-46.0) % RDW (11.5-15.5) % Plt Count (150-450) k/uL Neutrophils # (Manual) (1.3-7.7) k/uL Lymphocytes # (Manual) (1.0-4.8) k/uL Monocytes # (Manual) (0-1.0) k/uL ABG pH (7.35-7.45) ABG HCO3 (21-25) mmol/L ABG Total CO2 (19-24) mmol/L ABG O2 Saturation (94-97) % Sodium 133 L (137-145) mmol/L Chloride 92 L (98-107) mmol/L BUN 94 H (7-17) mg/dL Creatinine 2.14 H (0.52-1.04) mg/dL Glucose 158 H (74-99) mg/dL POC Glucose (mg/dL) (70-110) mg/dL Plasma Lactic Acid Jose 2.7 H* (0.7-2.0) mmol/L Assessment and Plan (1) MRSA (methicillin resistant staph aureus) culture positive Status: Acute Code(s): Z22.322 - CARRIER OR SUSPECTED CARRIER OF METHICILLIN RESIS STAPH SNOMED Code(s): 758315929 (2) Allergy to multiple antibiotics Status: Acute Code(s): Z88.1 - ALLERGY STATUS TO OTHER ANTIBIOTIC AGENTS SNOMED Code(s): 320325687 (3) Renal insufficiency Status: Acute Code(s): N28.9 - DISORDER OF KIDNEY AND URETER, UNSPECIFIED SNOMED Code(s): 364532798 (4) Leukocytosis Status: Acute Code(s): D72.829 - ELEVATED WHITE BLOOD CELL COUNT, UNSPECIFIED SNOMED Code(s): 178979592 Plan: 1patient with a very complicated history who is in the hospital for more than 3 weeks infectious disease consulted today for a BAL culture positive for stenotrophomonas and MRSA that was done on 03/11/2023, patient however did not have any fever from 03/11/2023 until today patient did have elevated white count however the white count is trending down and the patient mentions some improvement in her symptoms chest x-ray completed this morning cardiomegaly with mild pulmonary vascular congestion correlate with the BNP for congestive heart failure, patient is clinically not behaving as pneumonia with a question of tracheobronchitis versus colonization 2CT of the chest did shows COPD with moderate to severe emphysema diffuse bilateral groundglass density in the lower lungs did not mention any consolidation. 3patient did have acute worsening of her clinical condition patient noticed to have significant worsening of the white count and also become hypotensive and concern for possible sepsis/ pneumonia keeping in mind she grew MRSA and stenotr ophomonas in her sputum patient started on vancomycin and Levaquin overall prognosis remains to be guarded and the primary team is discussing with the family possible hospice which may be appropriate for keeping in mind her multiple comorbidities Plan of care were discussed with the admitting team Dictation was produced using [employer] dictation software. please excuse any grammatical, word or spelling errors. Time with Patient: Greater than 30
== END 2023-03-22 19:30 | disposition expired | DRG 871 ==
LOC: EC 12:47 → INTOOBSV 17:16 → 3SCARD 17:16 → OBSVTOIN 17:16 → 6NMEDSUR 18:09 → 2SICU 02-27 15:07 → 3SCARD 03-13 22:35
PROVIDERS: ADMIT Internal Medicine; ATTEND Internal Medicine
PROC: 3E033XZ Introduction of Vasopressor into Peripheral Vein, Percutaneous Approach (ICD-10-PCS; 2023-03-01)
PROC: 5A2204Z Restoration of Cardiac Rhythm, Single (ICD-10-PCS; 2023-03-02)
PROC: B24BZZ4 Ultrasonography of Heart with Aorta, Transesophageal (ICD-10-PCS; principal; 2023-03-02 07:30)
PROC: 5A0935A Assistance with Respiratory Ventilation, Less than 24 Consecutive Hours, High Flow/Velocity Cannula (ICD-10-PCS; 2023-03-04)
PROC: 5A09357 Assistance with Respiratory Ventilation, Less than 24 Consecutive Hours, Continuous Positive Airway Pressure (ICD-10-PCS; 2023-03-05)
PROC: 0BC88ZZ Extirpation of Matter from Left Upper Lobe Bronchus, Via Natural or Artificial Opening Endoscopic (ICD-10-PCS; 2023-03-11)
PROC: 0BC68ZZ Extirpation of Matter from Right Lower Lobe Bronchus, Via Natural or Artificial Opening Endoscopic (ICD-10-PCS; 2023-03-11)
PROC: 0BCB8ZZ Extirpation of Matter from Left Lower Lobe Bronchus, Via Natural or Artificial Opening Endoscopic (ICD-10-PCS; 2023-03-11)
PROC: 0BC48ZZ Extirpation of Matter from Right Upper Lobe Bronchus, Via Natural or Artificial Opening Endoscopic (ICD-10-PCS; 2023-03-11)
PROC: 0BC18ZZ Extirpation of Matter from Trachea, Via Natural or Artificial Opening Endoscopic (ICD-10-PCS; 2023-03-11)
PROC: 0B9F8ZX Drainage of Right Lower Lung Lobe, Via Natural or Artificial Opening Endoscopic, Diagnostic (ICD-10-PCS; 2023-03-11)
PROC: 4A023N6 Measurement of Cardiac Sampling and Pressure, Right Heart, Percutaneous Approach (ICD-10-PCS; 2023-03-17)
PROC: B2111ZZ Fluoroscopy of Multiple Coronary Arteries using Low Osmolar Contrast (ICD-10-PCS; 2023-03-17)
DX: A41.02 Sepsis due to Methicillin resistant Staphylococcus aureus (principal); I50.43 Acute on chronic combined systolic (congestive) and diastolic (congestive) heart failure; J15.212 Pneumonia due to Methicillin resistant Staphylococcus aureus; J96.21 Acute and chronic respiratory failure with hypoxia; J96.22 Acute and chronic respiratory failure with hypercapnia; N17.9 Acute kidney failure, unspecified; I13.0 Hypertensive heart and chronic kidney disease with heart failure and stage 1 through stage 4 chronic kidney disease, or unspecified chronic kidney disease; J44.0 Chronic obstructive pulmonary disease with (acute) lower respiratory infection; I48.19 Other persistent atrial fibrillation; J44.1 Chronic obstructive pulmonary disease with (acute) exacerbation; E87.1 Hypo-osmolality and hyponatremia; N18.4 Chronic kidney disease, stage 4 (severe); R57.0 Cardiogenic shock; I27.29 Other secondary pulmonary hypertension; I27.81 Cor pulmonale (chronic); J84.10 Pulmonary fibrosis, unspecified; J43.9 Emphysema, unspecified; Z66 Do not resuscitate; Z51.5 Encounter for palliative care; Z99.81 Dependence on supplemental oxygen; J98.09 Other diseases of bronchus, not elsewhere classified; D63.1 Anemia in chronic kidney disease; E87.8 Other disorders of electrolyte and fluid balance, not elsewhere classified; E03.9 Hypothyroidism, unspecified; I08.3 Combined rheumatic disorders of mitral, aortic and tricuspid valves; I69.320 Aphasia following cerebral infarction; I25.10 Atherosclerotic heart disease of native coronary artery without angina pectoris; E78.5 Hyperlipidemia, unspecified; B95.62 Methicillin resistant Staphylococcus aureus infection as the cause of diseases classified elsewhere; B96.89 Other specified bacterial agents as the cause of diseases classified elsewhere; I25.5 Ischemic cardiomyopathy; G89.29 Other chronic pain; I49.3 Ventricular premature depolarization; I87.2 Venous insufficiency (chronic) (peripheral); D72.823 Leukemoid reaction; E83.42 Hypomagnesemia; E87.6 Hypokalemia; T50.2X5A Adverse effect of carbonic-anhydrase inhibitors, benzothiadiazides and other diuretics, initial encounter; R41.3 Other amnesia; J98.4 Other disorders of lung; Z11.52 Encounter for screening for COVID-19; Z87.891 Personal history of nicotine dependence; Z28.310 Unvaccinated for COVID-19; Z79.890 Hormone replacement therapy; Z79.01 Long term (current) use of anticoagulants; Z79.51 Long term (current) use of inhaled steroids; Z79.84 Long term (current) use of oral hypoglycemic drugs; Z88.3 Allergy status to other anti-infective agents; Z88.2 Allergy status to sulfonamides; Z82.49 Family history of ischemic heart disease and other diseases of the circulatory system; Z95.5 Presence of coronary angioplasty implant and graft; Z86.14 Personal history of Methicillin resistant Staphylococcus aureus infection; Z86.718 Personal history of other venous thrombosis and embolism; Z87.828 Personal history of other (healed) physical injury and trauma; Z79.899 Other long term (current) drug therapy; Z87.820 Personal history of traumatic brain injury; Z86.711 Personal history of pulmonary embolism; Z97.8 Presence of other specified devices
CPT/HCPCS: 31624; 36410; 36415; 36600; 70450; 71045; 71046; 71250; 76937; 80048; 80053; 80202; 81001; 82533; 82565; 82728; 82805; 83540; 83550; 83605; 83735; 83880; 84132; 84145; 84443; 84484; 85025; 85027; 85379; 85610; 85730; 86140; 87040; 87070; 87075; 87077; 87102; 87116; 87186; 87205; 87206; 87449; 87496; 87498; 87502; 87529; 87634; 87635; 87636; 87798; 92960; 93005; 93306; 93312; 93320; 93325; 93451; 94640; 94660; 94667; 94668; 94760; 96374; 96375; 96376; 99285